=== PATIENT | female | born 1935 | race Caucasian/White ===

== ENCOUNTER 2016-08-13 10:54 | Emergency (ER) | payer MEDICARE ==
[~2016-08-13] VITALS: Ht 162.6 cm; Wt 68.0 kg
[~2016-08-13 10:54] MED LIST: ACET160L29 PO; ACET325T49 PO; ASP325TEC PO; ASP81TEC PO; ASPI-586 PO; ASPI-875 PO; ASPI-983 PO; ASPI-999 PO; ATOR20TA66 PO; ATOR40TA70 PO; ATOR80TA76 PO; BACL10TA PO; CARV3.122 PO; CLON0.1T PO; CLOP75TA PO; DOCU100C37 PO; DPAS20025 PO; GABA-488 PO; GABA300S2 PO; GLIM4TAB PO; GLMP4T PO; HEPARIN 5000 UNIT SQ; HYDR-3812 PO; INSU100I14 SQ; INSU100I29 SQ; INSU100V16 SC; INSU100V5 SQ; IRON150C3 PO; LEVE500T6 PO; LIRA0.6P SQ; LIRA0.6P3 SQ; LISI-552 PO; LISI1TAB6 PO; LISI40TA PO; LORA0.5T PO; LORA0.5T34 PO; MAGN400O7 PO; METF-380 PO; METF-478 PO; METF500T4 PO; METF500T8 PO; METO-270 PO; METO-272 PO; METO-274 PO; METOPROLOL TARTRATE PEG; MIRT15TA3 PO; MIRT15TA6 PO; MODA100T40 PO; MTF500T PO; MTP25TSR PO; Multivitamins/Minerals Therap PO; NYST1000 PO; OXYC-471 PO; Rocephin IV; SENN-20 PO; SERT100T8 PO; SERT50TA9 PO; SIMV40TA2 PO; SITA100T PO; TRAM50TA2 PO; [UNRECOGNIZED DRUG - OTHER] PEG
--- OUTSIDE RECORDS SUMMARY | 2016-08-13 11:02 | XMS REPORT | Continuity of Care Document ---
Author Author [facility] Organization [facility] Address Unknown Phone Unavailable Care Team Providers Care Consulting Sales Manager Name Role Phone Dp, [facility] PCP [phone] Source Comments Some departments are not documenting in the electronic medical record. If you do not see the information that you expected, contact Release of Information in the Health Information Management department at [phone] for further assistance in locating additional records.[facility] Active Allergies and Adverse Reactions No Known Allergies Current Medications Prescription Sig. Disp. Refills Start End Date Status Date aspirin EC 81 mg tablet Take 1 Tab by mouth 90 Tab 3 10/18/19 Active daily. 16 levETIRAcetam (KEPPRA) Take 1 Tab by mouth twice 60 Tab 7 10/18/19 Active 500 mg tablet daily. 16 atorvastatin (LIPITOR) 40 Take 1 Tab by mouth 90 Tab 3 10/18/19 Active mg tablet daily. 16 metoprolol XL (TOPROL XL) Take 1 Tab by mouth 90 Tab 3 10/18/19 Active 50 mg tablet daily. 16 dipyridamole/aspirin Take 1 Cap by mouth twice 180 Cap 3 10/18/19 Active (AGGRENOX) 200/25 mg daily. 16 capsule trimethoprim/sulfamethoxa Take 1 Tab by mouth twice 10 Tab 0 10/18/19 Active zole (BACTRIM DS) 160/800 daily. 16 mg tablet insulin glargine (LANTUS Inject 15 Units into 10/18/19 Active SOLOSTAR) 100 unit/mL (3 area(s) as directed at 16 mL) injection PEN bedtime daily. insulin aspart (NOVOLOG) Inject 0-14 Units into 10/18/19 Active 100 unit/mL flexPEN area(s) as directed 16 before meals and at bedtime. Glucose 140-180mg/dL: administer 2 units insulin Glucose 181-220: 4 unitsGlucose 221-260: 6 units Glucose 261-300: 8 units Glucose 301-350: 10 unitsGlucose 351-400: 12 unitsGlucose >400m units Active Problems Problem Noted Date Seizure ([facility]) 10/18/2015 Right sided weakness 10/16/2015 Type 2 diabetes mellitus ([facility]) 10/16/2015 Essential hypertension 10/16/2015 Hyperlipidemia 10/16/2015 Depression 10/16/2015 Altered mental status, unspecified 10/16/2015 Stroke ([facility]) 10/15/2015 Social History Tobacco Use Types Packs/Day Years Used Date Never Smoker Smokeless Tobacco: Never Used Alcohol Use Drinks/Week oz/Week Comments No 0 Standard 0.0 drinks or equivalent Last Filed Vital Signs Vital Sign Reading Time Taken Blood Pressure 134/68 10/18/2015 8:00 AM CDT Pulse 49 10/18/2015 10:00 AM CDT Temperature 36.6 C (97.8 F) 10/18/2015 8:00 AM CDT Respiratory Rate - - Height 1.626 m (5' 4") 10/16/2015 9:27 AM CDT Weight 68.493 kg (151 lb) 10/16/2015 9:27 AM CDT Body Mass Index 25.91 10/16/2015 9:27 AM CDT Oxygen Saturation 93% 10/18/2015 8:00 AM CDT Plan of Care Health Maintenance Due Date Last Done Comments Physical (Comprehensive) 1944 Exam Pertussis Vaccine 1948 Tetanus Vaccine 1954 Shingles Vaccine 1997 Osteoporosis Screening 2002 Prevnar/Pneumovax (#1) 2002 Influenza Vaccine 03/13/2016 Results from Last 3 Months Not on file
--- NOTE | 2016-08-13 12:01 | ED Integumentary General ---
General Chief Complaint: Skin/Wound Problems Stated Complaint: ABSCESS/INFECTION ON BOTTOM Nursing Triage Note: PT C/O RED RASH TO BOTTOM. Source: patient, family Exam Limitations: no limitations History of Present Illness Time seen by provider: 11:30 Initial Comments 80-year-old female patient presents to the emergency department complains of a rash of the groin and perineum. Reports itching and burning. Timing/Duration: getting worse, other (several week history) Location: genitalia Possible Cause: no cause identified Modifying Factors: worse with scratching Allergies and Home Medications Allergies Coded Allergies: No Known Drug Allergies (Unverified , 04/08/10) Home Medications Atorvastatin Calcium 40 Mg Tablet 40 MG PO HS (Reported) LAST FILLED 11/16/15 #30 Carvedilol 3.125 Mg Tablet #60 3.125 MG PO BID Prescribed by: CY WELCH on 01/17/16 1026 Clonidine HCl 0.1 Mg Tablet 0.1 MG PO BID (Reported) Clotrimazole 45 Gm Cr #1 45 GM VG UD apply to the affected area BID Prescribed by: KISHAN SALDANA on 08/13/16 1207 Clotrimazole/Betamethasone Dip 15 Gm Cream..g. #1 15 GM TP UD apply to the groin BID for rash Prescribed by: KISHAN SALDANA on 08/13/16 1207 Dipyridamole/Aspirin 1 Ea Cap 1 CAP PO BID (Reported) Docusate Sodium 100 Mg Capsule 200 MG PO DAILY (Reported) Fluconazole 100 Mg Tablet #9 100 MG PO UD 2 po day 1, then 1 po daily Prescribed by: KISHAN SALDANA on 08/13/16 1207 Gabapentin 300 Mg Capsule 300 MG PO DAILY (Reported) 300 MG BID X 5 DAYS, THEN INCREASE 300 MG TID Gabapentin 300 Mg/6 Ml Solution 300 MG PO HS (Reported) Insulin Aspart 300 Units/3 Ml Solution 5 UNITS SQ AC (Reported) AND PER SLIDING SCALE Insulin Detemir 100 Unit/1 Ml Insuln.pen 25 UNITS SQ HS (Reported) Levetiracetam 500 Mg Tablet 500 MG PO BID (Reported) Lorazepam 0.5 Mg Tablet 0.5 MG PO Q6H PRN PRN ANXIETY (Reported) Magnesium Hydroxide 400 Mg/5 Ml Oral.susp 30 ML PO DAILY PRN PRN CONSTIPATION ( Reported) Metformin HCl 500 Mg Tab.er.24h 1,000 MG PO BID (Reported) Mirtazapine 15 Mg Tablet 7.5 MG PO HS (Reported) TAKES 1/2 OF A (15 MG) TABLET Sertraline HCl 100 Mg Tablet 100 MG PO DAILY (Reported) Tramadol HCl 50 Mg Tablet 50-100 MG PO BID (Reported) Constitutional: No chills, No fever, No malaise Respiratory: no symptoms reported Cardiovascular: no symptoms reported Gastrointestinal: no symptoms reported Genitourinary: see HPI Musculoskeletal: no symptoms reported Skin: see HPI Psychiatric/Neurological: No Symptoms Reported All Other Systems Reviewed Negative Unless Noted: Yes (Negative excepted noted.) Past Jkvbkin-Sjovja-Gzzufb Hx Patient Social History Recent Foreign Travel: No Contact w/Someone Who Travel: No Recent Infectious Disease Expo: No Recent Hopitalizations: No Immunizations Up To Date Tetanus Booster (TDap): Unknown PED Vaccines UTD: Yes Date of Pneumonia Vaccine: Apr 12, 2015 Date of Influenza Vaccine: Apr 12, 2015 Seasonal Allergies Seasonal Allergies: No Surgeries HX Surgeries: Yes (MELONAMA FROM LEG; CATARACTS REMOVED) Surgeries: Cardiac, Coronary Stent, Eye Surgery, 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 Respiratory Hx Respiratory Disorders: No Cardiovascular Hx Cardiac Disorders: Yes (STENT X1) Cardiac Disorders: Coronary Artery Disease, Hypertension Neurological Hx Neurological Disorders: No Neurological Disorders: Stroke 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 System Sexually Transmitted Disease: No HIV/AIDS: No Female 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 Disorders: Denies 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 Genitourinary Hx Genitourinary Disorders: No Gastrointestinal Hx Gastrointestinal Disorders: No Musculoskeletal Hx Musculoskeletal Disorders: Yes Musculoskeletal Disorders: Arthritis Endocrine Hx Endocrine Disorders: Yes Endocrine Disorders: Diabetes, Insulin dep HEENT HX ENT Disorders: Yes (CATARACTS REMOVED) HEENT Disorders: Cataract Loss of Vision: Denies Hearing Impairment: Denies Cancer Hx Cancer: Yes (20 YEARS AGO) Cancer: Cervical Psychosocial Hx Psychiatric Problems: No Behavioral Health Disorders: Depression Integumentary HX Skin/Integumentary Disorder: Yes Skin/Integumentary Disorders: Pruritis Blood Transfusions Hx Blood Disorders: No Adverse Reaction to a Blood Tr: No Reviewed Nursing Assessment Reviewed/Agree w Nursing PMH: Yes Family Medical History Significant Family History: Heart Disease, Hypertension Family Medial History: Family history: Alzheimer's disease 03 MOTHER Family history: Hypertension 03 FATHER 03 MOTHER Myocardial infarction 03 FATHER Physical Exam Vital Signs Vital Sign - Last 12Hours 08/13/16 11:09 Temp 97.8 Pulse 57 Resp 16 B/P 166/138 Pulse Ox 95 O2 Delivery Room Air Capillary Refill : Less Than 3 Seconds General Appearance: WD/WN no apparent distress Cardiovascular: regular rate, rhythm no murmur Respiratory: lungs clear normal breath sounds no respiratory distress Neurologic/Psychiatric: alert normal mood/affect oriented x 3 Skin: normal color warm/dry rash (scaly erythematous rash of the bilateral groin, pubis, and external genitalia) Skin Problem Location: other (genitalia/groin/pubis) Skin Problem Character: rash (scaly erythematous rash of the bilateral groin, pubis, and external genitalia) Progress/Results/Core Measures Results/Orders Vital Signs/I&O Vital Sign - Last 12Hours 08/13/16 08/13/16 11:09 12:20 Temp 97.8 97.8 Pulse 57 57 Resp 16 16 B/P 166/138 Pulse Ox 95 95 O2 Delivery Room Air Blood Pressure Mean: 147 Departure Communication Progress Notes Patient seen and evaluated. Plan for discharge to home. Impression Impression: Primary Impression: Candidiasis of female genitalia Disposition: HOME, SELF-CARE Condition: Improved Departure-Patient Inst. Decision time for Depature: 11:58 Referrals: [facility] (PCP/Family) Primary Care Physician Patient Instructions: Vaginal Yeast Infection (DC) Add. Discharge Instructions: All discharge instructions reviewed with patient and/or family. Voiced understanding. Medications as directed. Continue usual home medications. Shower with a mild soap and warm water. Change underwear/briefs frequently. Follow-up with your family doctor if needed. Return to the emergency department for worsened symptoms or any other concerns. Scripts Clotrimazole 45 Gm Cr45 Gm VG UD #1 TUBE Ref 0 apply to the affected area BID Prov:KISHAN SALDANA 08/13/16 Clotrimazole/Betamethasone Dip (Lotrisone Cream)15 Gm Cream..g.15 Gm TP UD #1 TUBE Ref 1 apply to the groin BID for rash Prov:KISHAN SALDANA 08/13/16 Fluconazole (Diflucan)100 Mg [id number] Mg PO UD #9 TAB Ref 0 2 po day 1, then 1 po daily Prov:KISHAN SALDANA 08/13/16 KISHAN SALDANA Aug 13, 2016 12:01
[2016-08-13] MEDS ORDERED: CLOT15CR4 TP (12:07)
[2016-08-13] MEDS ORDERED: FLUC100T PO (12:07)
[2016-08-13] MEDS ORDERED: CLTR1PV45 VG (12:07)
[2016-08-13 12:20] VITALS: BP 166/138
== END 2016-08-13 12:20 | disposition home or self-care (01) ==
LOC: EDUNIT# 10:54 → ER 10:57
DX: B37.49 Other urogenital candidiasis (principal); I10 Essential (primary) hypertension; I25.10 Atherosclerotic heart disease of native coronary artery without angina pectoris; E11.9 Type 2 diabetes mellitus without complications; Z79.4 Long term (current) use of insulin; Z79.84 Long term (current) use of oral hypoglycemic drugs; Z79.899 Other long term (current) drug therapy; Z95.5 Presence of coronary angioplasty implant and graft
CPT/HCPCS: 99285

== ENCOUNTER 2016-09-10 14:29 | Emergency (ER) | payer MEDICARE ==
[~2016-09-10] VITALS: Ht 162.6 cm; Wt 63.8 kg
[~2016-09-10 14:29] MED LIST changes: +CLOT15CR4 TP; +CLTR1PV45 VG; +FLUC100T PO
--- OUTSIDE RECORDS SUMMARY | 2016-09-10 14:37 | XMS REPORT | Continuity of Care Document ---
Author Author [facility] Organization [facility] Address Unknown Phone Unavailable Care Team Providers Care Car Carder Name Role Phone Dp, [facility] PCP [phone] Source Comments Some departments are not documenting in the electronic medical record. If you do not see the information that you expected, contact Release of Information in the Health Information Management department at [phone] for further assistance in locating additional records.[facility] Active Allergies and Adverse Reactions No Known [...] units Active Problems Problem Noted Date Seizure ([facility]) 10/18/2015 Right sided weakness 10/16/2015 Type 2 diabetes mellitus ([facility]) 10/16/2015 Essential hypertension 10/16/2015 Hyperlipidemia 10/16/2015 Depression 10/16/2015 Altered mental status, unspecified 10/16/2015 Stroke ([facility]) 10/15/2015 Social History Tobacco Use Types Packs/Day [...]
[2016-09-10 15:27] LABS: BILIRUBIN,URINE NEGATIVE (NEGATIVE); KETONES,URINE NEGATIVE (NEGATIVE); LEUKOCYTE ESTERASE ,URINE 1+ (NEGATIVE); NITRITE,URINE NEGATIVE (NEGATIVE); PH,URINE 5 (5-9); PROTEIN,URINE 1+ (NEGATIVE); UROBILINOGEN,URINE NORMAL (NORMAL)
[2016-09-10 15:32] LABS: BASOPHILS % (AUTO) 0 % (0-10); EOSINOPHILS # (AUTO) 0.1 10^3/uL (0.0-0.3); EOSINOPHILS % (AUTO) 1 % (0-10); LYMPHOCYTES # (AUTO) 1.4 X 10^3 (1.0-4.0); LYMPHOCYTES % (AUTO) 18 % (12-44); MEAN CORPUSCULAR HEMOGLOBIN 28 PG (25-34); MEAN CORPUSCULAR HGB CONC 33 G/DL (32-36); MEAN CORPUSCULAR VOLUME 86 FL (80-99); MEAN PLATELET VOLUME 9.6 FL (7.4-10.4); MONOCYTES # (AUTO) 0.5 X 10^3 (0.0-1.0); MONOCYTES % (AUTO) 6 % (0-12); NEUTROPHILS # (AUTO) 5.9 X 10^3 (1.8-7.8); NEUTROPHILS % (AUTO) 75 % (42-75); PLATELET COUNT 216 10^3/uL (130-400); RED BLOOD COUNT 4.84 10^6/uL (4.35-5.85); RED CELL DISTRIBUTION WIDTH 14.4 % (10.0-14.5); WHITE BLOOD COUNT 7.9 10^3/uL (4.3-11.0)
[2016-09-10 15:43] LABS: SQUAMOUS EPITHELIAL CELL,UR 0-2 /HPF
[2016-09-10] MEDS ORDERED: ACYCLOVIR 400 MG TABLET (ZOVIRAX) PO ONE (15:45)
[2016-09-10 15:47] LABS: INR 0.9 (0.8-1.4); PROTHROMBIN TIME PATIENT 11.8 SEC (12.2-14.7)
[2016-09-10 15:55] LABS: ALANINE AMINOTRANSFERASE 16 U/L (0-55); ALBUMIN 3.8 G/DL (3.2-4.5); ANION GAP 12 MMOL/L (5-14); ASPARTATE AMINO TRANSFERASE 14 U/L (5-34); BILIRUBIN,TOTAL 0.4 MG/DL (0.1-1.0); BLOOD UREA NITROGEN 13 MG/DL (7-18); BUN/CREATININE RATIO 15; CALCIUM 9.3 MG/DL (8.5-10.1); CARBON DIOXIDE 23 MMOL/L (21-32); CHLORIDE 106 MMOL/L (98-107); CREATININE SERUM 0.86 MG/DL (0.60-1.30); GFR ESTIMATED > 60; POTASSIUM 4.8 MMOL/L (3.6-5.0); SODIUM 141 MMOL/L (135-145); TOTAL PROTEIN 6.7 G/DL (6.4-8.2)
[2016-09-10 16:01] LABS: GLUCOSE 406 MG/DL (70-105)
[2016-09-10] MEDS ORDERED: NS IV 1000 ML 1,000 ML IV ONE (16:01)
--- NOTE | 2016-09-10 16:14 | Diagnostic Imaging Report ---
PROCEDURE: CT head and CT cervical spine without contrast. TECHNIQUE: Multiple contiguous axial images were obtained through the brain and cervical spine without the use of intravenous contrast. Sagittal and coronal reformations through the cervical spine were then performed. INDICATION: Fall. Blurred vision. FINDINGS: CT head: There is no intracranial hemorrhage. There is prominent periventricular and deep white matter hypodensities compatible with chronic microvascular ischemic changes. When compared to 01/15/2016, there is slight increase in the white matter hypodensities in the right frontal region and the left occipital area which could also be on the basis of chronic ischemia given the lack of significant mass effect. If there are new neurologic symptoms, then better evaluation with MRI would be suggested. No hydrocephalus. No extra-axial fluid collection seen. The calvarium and the visualized portions of the paranasal sinuses appear grossly unremarkable. CT cervical spine: There is slight posterior translation of C5 over C6. The vertebral body heights are preserved. There is moderate disc height loss at C5/C6 level. There are posterior osteophytes at C4-C5 and C5-C6. Facet joint arthropathy is seen at multiple levels generally worse in the mid to lower cervical spine on the left side. There is no widening of the predental space. No subluxation or dislocation at the lateral masses of C1 and C2 or atlantooccipital joints. No fracture is seen. There is prominent foraminal stenosis on the left side at the C4/C5 and C5/C6 seen. IMPRESSION: 1. CT head: No intracranial hemorrhage. Suggestion of increased hypodensity in the left occipital and right frontal region compared to 01/15/2016 exam may relate to increased chronic microvascular ischemic changes. If there is a clinical suspicion of a new neurologic event, then further evaluation with MRI would be suggested. 2. CT cervical spine: Advanced degenerative changes. No fracture seen. Dictated by: Dictated on workstation # [id number]
[2016-09-10] MEDS ORDERED: cefTRIAXone INJECTION 1,000 MG in NS (IVPB) 50 ML IV ONE (16:15)
[2016-09-10] MEDS ORDERED: inSUlin (REGULAR) HUMAN 1 UNIT/0.01 ML (CHARGE PER UNIT) IV ONE (16:15)
--- NOTE | 2016-09-10 16:22 | ED Fall/Injury ---
General Chief Complaint: Trauma-Non Activation Stated Complaint: FALL, BLURRED VISION, LETHARGIC Nursing Triage Note: PT FELL BACKWARDS IN W/C HIT BACK OF HEAD, IOANA LOC, DENIES NECK PAIN STATE DID HAVE VISUAL CHANGES AND SOME NAUSE Source: patient, family Exam Limitations: no limitations History of Present Illness Time seen by provider: 14:35 Initial Comments This 81-year-old woman presents to the emergency room after tipping over backwards in her wheelchair while trimming her dog. She struck her head on the concrete. She reports brief change in vision and nausea. These symptoms have now improved. Patient was also noticed to be rather hypertensive on initial assessment. Location Injury Occurred: HOME Occurred: just prior to arrival Injuries/Pain Location: head Allergies and Home Medications Allergies Coded Allergies: No Known Drug Allergies (Unverified , 04/08/10) Home Medications Acyclovir 800 Mg Tablet #35 800 MG PO 5XD Prescribed by: DESTIN CHATMAN on 09/10/16 1658 Atorvastatin Calcium 40 Mg Tablet 40 MG PO HS (Reported) LAST FILLED 11/16/15 #30 Carvedilol 3.125 Mg Tablet #60 3.125 MG PO BID Prescribed by: CY WELCH on 01/17/16 1026 Cephalexin 500 Mg Capsule #28 500 MG PO QID Prescribed by: DESTIN CHATMAN on 09/10/16 1658 Clonidine HCl 0.1 Mg Tablet 0.1 MG PO BID (Reported) Clotrimazole 45 Gm Cr #1 45 GM VG UD apply to the affected area BID Prescribed by: KISHAN SALDANA on 08/13/16 1207 Clotrimazole/Betamethasone Dip 15 Gm Cream..g. #1 15 GM TP UD apply to the groin BID for rash Prescribed by: KISHAN SLADANA on 08/13/16 1207 Dipyridamole/Aspirin 1 Ea Cap 1 CAP PO BID (Reported) Docusate Sodium 100 Mg Capsule 200 MG PO DAILY (Reported) Fluconazole 100 Mg Tablet #9 100 MG PO UD 2 po day 1, then 1 po daily Prescribed by: KISHAN SALDANA on 08/13/16 1207 Gabapentin 300 Mg Capsule 300 MG PO DAILY (Reported) 300 MG BID X 5 DAYS, THEN INCREASE 300 MG TID Gabapentin 300 Mg/6 Ml Solution 300 MG PO HS (Reported) Hydrocodone/Acetaminophen 1 Each Tablet #14 1 EACH PO Q6H PRN PRN PAIN Prescribed by: DESTIN CHATMAN on 09/10/16 1703 Insulin Aspart 300 Units/3 Ml Solution 5 UNITS SQ AC (Reported) AND PER SLIDING SCALE Insulin Detemir 100 Unit/1 Ml Insuln.pen 25 UNITS SQ HS (Reported) Levetiracetam 500 Mg Tablet 500 MG PO BID (Reported) Lorazepam 0.5 Mg Tablet 0.5 MG PO Q6H PRN PRN ANXIETY (Reported) Magnesium Hydroxide 400 Mg/5 Ml Oral.susp 30 ML PO DAILY PRN PRN CONSTIPATION ( Reported) Metformin HCl 500 Mg Tab.er.24h 1,000 MG PO BID (Reported) Mirtazapine 15 Mg Tablet 7.5 MG PO HS (Reported) TAKES 1/2 OF A (15 MG) TABLET Sertraline HCl 100 Mg Tablet 100 MG PO DAILY (Reported) Tramadol HCl 50 Mg Tablet 50-100 MG PO BID (Reported) Constitutional: no symptoms reported Eyes: See HPI Ears, Nose, Mouth, Throat: no symptoms reported Respiratory: no symptoms reported Cardiovascular: no symptoms reported Gastrointestinal: see HPI Genitourinary: no symptoms reported Musculoskeletal: no symptoms reported Skin: no symptoms reported Psychiatric/Neurological: See HPI Past Eyefrex-Phyeem-Lizsow Hx Patient Social History Alcohol Use: Denies Use Recreational Drug Use: No Smoking Status: Never a Smoker Recent Foreign Travel: No Contact w/Someone Who Travel: No Recent Infectious Disease Expo: No Recent Hopitalizations: No Immunizations Up To Date Tetanus Booster (TDap): Unknown PED Vaccines UTD: Yes Date of Pneumonia Vaccine: Apr 12, 2015 Date of Influenza Vaccine: Apr 12, 2015 Seasonal Allergies Seasonal Allergies: No Surgeries HX Surgeries: Yes (MELONAMA FROM LEG; CATARACTS REMOVED) Surgeries: Cardiac, Coronary Stent, Eye Surgery, 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 Respiratory Hx Respiratory Disorders: No Cardiovascular Hx Cardiac Disorders: Yes (STENT X1) Cardiac Disorders: Coronary Artery Disease, Hypertension Neurological Hx Neurological Disorders: No Neurological Disorders: Stroke 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 System Sexually Transmitted Disease: No HIV/AIDS: No Female 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 Disorders: Denies 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 Genitourinary Hx Genitourinary Disorders: No Gastrointestinal Hx Gastrointestinal Disorders: No Musculoskeletal Hx Musculoskeletal Disorders: Yes Musculoskeletal Disorders: Arthritis Endocrine Hx Endocrine Disorders: Yes Endocrine Disorders: Diabetes, Insulin dep HEENT HX ENT Disorders: Yes (CATARACTS REMOVED) HEENT Disorders: Cataract Loss of Vision: Denies Hearing Impairment: Denies Cancer Hx Cancer: Yes (20 YEARS AGO) Cancer: Cervical Psychosocial Hx Psychiatric Problems: No Behavioral Health Disorders: Depression Integumentary HX Skin/Integumentary Disorder: Yes Skin/Integumentary Disorders: Pruritis Blood Transfusions Hx Blood Disorders: No Adverse Reaction to a Blood Tr: No Family Medical History Significant Family History: Heart Disease, Hypertension Family Medial History: Family history: Alzheimer's disease 03 MOTHER Family history: Hypertension 03 FATHER 03 MOTHER Myocardial infarction 03 FATHER Physical Exam Vital Signs Vital Sign - Last 12Hours 09/10/16 14:35 Temp 98.1 Pulse 91 Resp 18 B/P 190/77 Pulse Ox 94 Capillary Refill : Less Than 3 Seconds General Appearance: WD/WN no apparent distress HEENT: PERRL/EOMI normal ENT inspection other (oropharynx somewhat dry) Neck: non-tender full range of motion supple normal inspection Cardiovascular: regular rate, rhythm no edema no murmur Respiratory: lungs clear normal breath sounds no respiratory distress no accessory muscle use Gastrointestinal: normal bowel sounds non tender soft Extremities: normal inspection no pedal edema 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 no motor/sensory deficits alert normal mood/affect oriented x 3 Skin: normal color warm/dry rash (rash on the right side of the gluteal cleft diagnostic of herpes zoster) Robert Coma Score Best Eye Response: (4) Open Spontaneously Best Verbal Response: (5) Oriented Best Motor Response: (6) Obeys Commands Progress/Results/Core Measures Results/Orders Lab Results Laboratory Tests Test 09/10/16 15:14 09/10/16 15:25 09/10/16 17:27 Range/Units Urine Amorphous Sediment FEW XIOMARA URATES H /LPF Urine Bacteria FEW H /HPF Urine Bilirubin NEGATIVE NEGATIVE Urine Casts NONE /LPF Urine Clarity SLIGHTLY CLOUDY Urine Color YELLOW Urine Crystals NONE /LPF Urine Culture Indicated YES Urine Glucose (UA) 4+ H NEGATIVE Urine Ketones NEGATIVE NEGATIVE Urine Leukocyte Esterase 1+ H NEGATIVE Urine Mucus NEGATIVE /LPF Urine Nitrite NEGATIVE NEGATIVE Urine Protein 1+ H NEGATIVE Urine RBC NONE /HPF Urine RBC (Auto) NEGATIVE NEGATIVE Urine Specific [place] 1.010 L 1.016-1.022 Urine Squamous Epithelial Cells 0-2 /HPF Urine Urobilinogen NORMAL NORMAL MG/DL Urine WBC 10-25 H /HPF Urine pH 5 5-9 Activated Partial Thromboplast Time 26 24-35 SEC Alanine Aminotransferase (ALT/SGPT) 16 0-55 U/L Albumin 3.8 3.2-4.5 G/DL Alkaline Phosphatase 76 40-136 U/L Anion Gap 12 5-14 MMOL/L Aspartate Amino Transf (AST/SGOT) 14 5-34 U/L BUN/Creatinine Ratio 15 Basophils # (Auto) 0.0 0.0-0.1 10^3/uL Basophils (%) (Auto) 0 0-10 % Blood Urea Nitrogen 13 7-18 MG/DL Calcium Level 9.3 8.5-10.1 MG/DL Carbon Dioxide Level 23 21-32 MMOL/L Chloride Level 106 98-107 MMOL/L Creatinine 0.86 0.60-1.30 MG/DL Eosinophils # (Auto) 0.1 0.0-0.3 10^3/uL Eosinophils (%) (Auto) 1 0-10 % Estimat Glomerular Filtration Rate > 60 Glucose Level 406 *H 70-105 MG/DL Hematocrit 42 35-52 % Hemoglobin 13.7 11.5-16.0 G/DL INR Comment 0.9 0.8-1.4 Lymphocytes # (Auto) 1.4 1.0-4.0 X 10^3 Lymphocytes (%) (Auto) 18 12-44 % Mean Corpuscular Hemoglobin 28 25-34 PG Mean Corpuscular Hemoglobin Concent 33 32-36 G/DL Mean Corpuscular Volume 86 80-99 FL Mean Platelet Volume 9.6 7.4-10.4 FL Monocytes # (Auto) 0.5 0.0-1.0 X 10^3 Monocytes (%) (Auto) 6 0-12 % Neutrophils # (Auto) 5.9 1.8-7.8 X 10^3 Neutrophils (%) (Auto) 75 42-75 % Platelet Count 216 130-400 10^3/uL Potassium Level 4.8 3.6-5.0 MMOL/L Prothrombin Time 11.8 L 12.2-14.7 SEC Red Blood Count 4.84 4.35-5.85 10^6/uL Red Cell Distribution Width 14.4 10.0-14.5 % Sodium Level 141 135-145 MMOL/L TSH [place] Testing 2.29 0.35-4.94 UIU/ML Total Bilirubin 0.4 0.1-1.0 MG/DL Total Protein 6.7 6.4-8.2 G/DL White Blood Count 7.9 4.3-11.0 10^3/uL Glucometer 177 H 70-110 MG/DL Micro Results Microbiology 09/10/16 Urine Culture - Preliminary, Resulted Gram Positive Cocci Strep Agalactiae Group B Probable Coag Negative Staph My Orders Orders-DESTIN MENG MD Cbc With Automated Diff (09/10/16 14:40) Comprehensive Metabolic Panel (09/10/16 14:40) Protime With Inr (09/10/16 14:40) Partial Thromboplastin Time (09/10/16 14:40) Thyroid Analyzer (09/10/16 14:40) Ua Culture If Indicated (09/10/16 14:40) Saline Lock/Iv-Start (09/10/16 14:40) Monitor-Rhythm Ecg Trace Only (09/10/16 14:40) Ct Head/Cervical Spine Wo (09/10/16 ) Acyclovir Capsule/Tablet (Zovirax Caps (09/10/16 15:45) Urine Culture (09/10/16 15:14) Ns Iv 1000 Ml (Sodium Chloride 0.9%) (09/10/16 16:01) Insulin (Regular) Human (Humulin R (Per (09/10/16 16:15) Ceftriaxone Injection (Rocephin Injectio (09/10/16 16:15) Accucheck Stat ONCE (09/10/16 16:23) Medications Given in ED Vital Signs/I&O Vital Sign - Last 12Hours 09/10/16 09/10/16 14:35 17:30 Temp 98.1 98.1 Pulse 91 65 Resp 18 18 B/P 190/77 Pulse Ox 94 97 Blood Pressure Mean: 114 Progress Note #1: Time: 16:[address] head was negative for acute injury. Acyclovir was given for the shingles. Urine demonstrated urinary tract infection. A gram of Rocephin is being administered. A liter of normal saline along with 5 units of insulin is being administered for treatment of hyperglycemia. Progress Note #2: Progress Note Blood sugar was 177 prior to dismissal. Blood pressure improved prior to dismissal. Diagnostic Imaging Diagonstic Imaging: CT Plain Films/CT/US/NM/MRI: c-spine, head Comments CT head and C-spine viewed by me and report reviewed. See report below: NAME: [facility] REC#: [id number] PT STATUS: REG ER : 1935 PHYSICIAN: DESTIN MENG MD ADMIT DATE: 09/10/16/ER Draft Date of Exam:09/10/16 CT HEAD/CERVICAL SPINE WO PROCEDURE: CT head and CT cervical spine without contrast. TECHNIQUE: Multiple contiguous axial images were obtained through the brain and cervical spine without the use of intravenous contrast. Sagittal and coronal reformations through the cervical spine were then performed. INDICATION: Fall. Blurred vision. FINDINGS: CT head: There is no intracranial hemorrhage. There is prominent periventricular and deep white matter hypodensities compatible with chronic microvascular ischemic changes. When compared to 01/15/2016, there is slight increase in the white matter hypodensities in the right frontal region and the left occipital area which could also be on the basis of chronic ischemia given the lack of significant mass effect. If there are new neurologic symptoms, then better evaluation with MRI would be suggested. No hydrocephalus. No extra-axial fluid collection seen. The calvarium and the visualized portions of the paranasal sinuses appear grossly unremarkable. CT cervical spine: There is slight posterior translation of C5 over C6. The vertebral body heights are preserved. There is moderate disc height loss at C5/C6 level. There are posterior osteophytes at C4-C5 and C5-C6. Facet joint arthropathy is seen at multiple levels generally worse in the mid to lower cervical spine on the left side. There is no widening of the predental space. No subluxation or dislocation at the lateral masses of C1 and C2 or atlantooccipital joints. No fracture is seen. There is prominent foraminal stenosis on the left side at the C4/C5 and C5/C6 seen. IMPRESSION: 1. CT head: No intracranial hemorrhage. Suggestion of increased hypodensity in the left occipital and right frontal region compared to 01/15/2016 exam may relate to increased chronic microvascular ischemic changes. If there is a clinical suspicion of a new neurologic event, then further evaluation with MRI would be suggested. 2. CT cervical spine: Advanced degenerative changes. No fracture seen. Dictated on workstation # [id number] Dict: 09/10/16 1546 Trans: 09/10/16 1613 KB [id number] Interpreted by: ANA HA MD Departure Impression Impression: Primary Impression: Fall from wheelchair Qualified Code: W05.0XXA - Fall from non-moving wheelchair, initial encounter Additional Impressions: Urinary tract infection Qualified Code: N39.0 - Urinary tract infection, site not specified Hyperglycemia Herpes zoster Qualified Code: B02.9 - Zoster without complications Disposition: HOME, SELF-CARE Condition: Improved Departure-Patient Inst. Decision time for Depature: 16:46 Referrals: [facility] (PCP/Family) Primary Care Physician Patient Instructions: Shingles, Urinary Tract Infections in Adults Add. Discharge Instructions: Drink plenty of water. Complete your antibiotics as prescribed. Use hydrocodone as prescribed for pain. Return to care if symptoms worsen. Contact your primary care provider soon as possible regarding resuming insulin or other treatment for diabetes. Eat a low sugar, low carbohydrate diet. All discharge instructions reviewed with patient and/or family. Voiced understanding. Scripts Hydrocodone/Acetaminophen (Hydrocodon -Acetaminophen 5-325)1 Each Tablet1 Each PO Q6H PRN PAIN #14 TAB Prov:DESTIN MENG MD 09/10/16 Cephalexin (Keflex)500 Mg [id number] Mg PO QID #28 CAP Prov:DESTIN MENG MD 09/10/16 Acyclovir 800 Mg [id number] Mg PO 5XD #35 TAB Prov:DESTIN MENG MD 09/10/16 Copy Copies To 1: BONILLA KIM JOSHUA T MD Sep 10, 2016 16:22 DESTIN MENG MD Sep 10, 2016 16:22 DESTIN MENG MD Sep 10, 2016 16:22
[2016-09-10] MEDS ORDERED: CEPH-507 PO (16:58)
[2016-09-10] MEDS ORDERED: ACYC800T PO (16:58)
[2016-09-10] MEDS ORDERED: HYDR-3812 PO (17:03)
[2016-09-10 17:30] VITALS: BP 148/67
== END 2016-09-10 17:30 | disposition home or self-care (01) ==
LOC: EDUNIT# 14:29 → ER 14:31
DX: S09.90XA Unspecified injury of head, initial encounter (principal); N39.0 Urinary tract infection, site not specified; E11.65 Type 2 diabetes mellitus with hyperglycemia; B02.9 Zoster without complications; I10 Essential (primary) hypertension; I25.10 Atherosclerotic heart disease of native coronary artery without angina pectoris; M47.812 Spondylosis without myelopathy or radiculopathy, cervical region; Z79.4 Long term (current) use of insulin; Z79.84 Long term (current) use of oral hypoglycemic drugs; Z79.899 Other long term (current) drug therapy; Z95.5 Presence of coronary angioplasty implant and graft; W05.0XXA Fall from non-moving wheelchair, initial encounter; Y92.009 Unspecified place in unspecified non-institutional (private) residence as the place of occurrence of the external cause; Y99.8 Other external cause status
CPT/HCPCS: 36415; 70450; 72125; 80053; 81000; 82962; 84443; 85025; 85610; 85730; 87088; 93041; 96361; 96365; 96375

== ENCOUNTER 2016-12-30 19:56 | Emergency (ER) | payer MEDICARE ==
[~2016-12-30] VITALS: Ht 162.6 cm; Wt 63.8 kg
[~2016-12-30 19:56] MED LIST changes: +ACYC800T PO; +CEPH-507 PO
[2016-12-30] MEDS ORDERED: DONE5TAB30 (20:09)
[2016-12-30] MEDS ORDERED: LEVO50TA6 (20:09)
[2016-12-30] MEDS ORDERED: CANA100T (20:09)
--- NOTE | 2016-12-30 20:28 | ED Upper Extremity ---
General Chief Complaint: Upper Extremity Stated Complaint: LT HAND/ARM PAIN/POSSIBLE BITE Nursing Triage Note: LEFT 5TH FINGER PAIN, OPEN AREA TO LEFT 5TH LATERAL FINGER WITH PAIN RADIATING UP LEFT ARM X2 WEEKS. REPORTS POSSIBLE INSECT BITE Nursing Sepsis Screen: No Definite Risk Source: patient Exam Limitations: no limitations History of Present Illness Time seen by provider: 20:24 Initial Comments To ER with a painful red lesion to the ulnar side of the proximal phalanx of the fifth digit right hand. This pain radiates up her right arm and then occasionally causes her right finger to swell. This is been present for 2 weeks. No known cause. Onset: just prior to arrival Severity: moderate Pain/Injury Location: right hand Method of Injury: unknown Allergies and Home Medications Allergies Coded Allergies: No Known Drug Allergies (Unverified , 04/08/10) Home Medications Atorvastatin Calcium 40 Mg Tablet, 40 MG PO HS, (Reported) LAST FILLED 11/16/15 #30 Canagliflozin 100 Mg Tablet, #90 (Reported) Carvedilol 3.125 Mg Tablet, 3.125 MG PO BID, #60 Ref 0 Prescribed by: CY WELCH on 01/17/16 1026 Clonidine HCl 0.1 Mg Tablet, 0.1 MG PO BID, (Reported) Docusate Sodium 100 Mg Capsule, 200 MG PO DAILY, (Reported) Donepezil HCl 5 Mg Tablet, #30 (Reported) Gabapentin 300 Mg Capsule, 300 MG PO DAILY, (Reported) 300 MG BID X 5 DAYS, THEN INCREASE 300 MG TID Hydrocodone/Acetaminophen 1 Each Tablet, 1 EACH PO Q6H PRN for PAIN, #14 Prescribed by: DESTIN CHATMAN on 09/10/16 1703 Insulin Aspart 300 Units/3 Ml Solution, 5 UNITS SQ AC, (Reported) AND PER SLIDING SCALE Insulin Detemir 100 Unit/1 Ml Insuln.pen, 25 UNITS SQ HS, (Reported) Levetiracetam 500 Mg Tablet, 500 MG PO BID, (Reported) Levothyroxine Sodium 50 Mcg Tablet, #30 (Reported) Lorazepam 0.5 Mg Tablet, 0.5 MG PO Q6H PRN for ANXIETY, (Reported) Magnesium Hydroxide 400 Mg/5 Ml Oral.susp, 30 ML PO DAILY PRN for CONSTIPATION, (Reported) Metformin HCl 500 Mg Tab.er.24h, 1,000 MG PO BID, (Reported) Mirtazapine 15 Mg Tablet, 7.5 MG PO HS, (Reported) TAKES 1/2 OF A (15 MG) TABLET Sertraline HCl 100 Mg Tablet, 100 MG PO DAILY, (Reported) Constitutional: see HPI, No chills EENTM: see HPI Respiratory: no symptoms reported Cardiovascular: no symptoms reported Genitourinary: no symptoms reported Musculoskeletal: no symptoms reported Skin: no symptoms reported Psychiatric/Neurological: No Symptoms Reported Past Zupgwaj-Ojhjwn-Uoxrip Hx Patient Social History Alcohol Use: Denies Use Recreational Drug Use: No Smoking Status: Never a Smoker 2nd Hand Smoke Exposure: No Recent Foreign Travel: No Contact w/Someone Who Travel: No Recent Infectious Disease Expo: No Recent Hopitalizations: No Immunizations Up To Date Tetanus Booster (TDap): Unknown PED Vaccines UTD: Yes Date of Pneumonia Vaccine: Apr 12, 2015 Date of Influenza Vaccine: Apr 12, 2015 Seasonal Allergies Seasonal Allergies: No Surgeries HX Surgeries: Yes (MELONAMA FROM LEG; CATARACTS REMOVED) Surgeries: Cardiac, Coronary Stent, Eye Surgery, 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 Respiratory Hx Respiratory Disorders: No Cardiovascular Hx Cardiac Disorders: Yes (STENT X1) Cardiac Disorders: Coronary Artery Disease, High Cholesterol, Hypertension Neurological Hx Neurological Disorders: No Neurological Disorders: Stroke 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 System : No Sexually Transmitted Disease: No HIV/AIDS: No Female 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 Disorders: Denies 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, 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 Genitourinary Hx Genitourinary Disorders: No Gastrointestinal Hx Gastrointestinal Disorders: No Musculoskeletal Hx Musculoskeletal Disorders: Yes Musculoskeletal Disorders: Arthritis Endocrine Hx Endocrine Disorders: Yes Endocrine Disorders: Diabetes, Insulin dep, Hypothyroidsim HEENT HX ENT Disorders: Yes (CATARACTS REMOVED) HEENT Disorders: Cataract Loss of Vision: Denies Hearing Impairment: Denies Cancer Hx Cancer: Yes (20 YEARS AGO) Cancer: Cervical Psychosocial Hx Psychiatric Problems: No Behavioral Health Disorders: Depression Integumentary HX Skin/Integumentary Disorder: Yes Skin/Integumentary Disorders: Pruritis Blood Transfusions Hx Blood Disorders: No Adverse Reaction to a Blood Tr: No Family Medical History Significant Family History: Heart Disease, Hypertension Family Medial History: Family history: Alzheimer's disease 03 MOTHER Family history: Hypertension 03 FATHER 03 MOTHER Myocardial infarction 03 FATHER Physical Exam Vital Signs Vital Sign - Last 12Hours 12/30/16 20:09 Temp 97.4 Pulse 75 Resp 16 B/P (MAP) 136/63 Pulse Ox 97 O2 Delivery Room Air Capillary Refill : Less Than 3 Seconds General Appearance: WD/WN, no apparent distress HEENT: PERRL/EOMI, normal ENT inspection Neck: non-tender, full range of motion Respiratory: no respiratory distress, no accessory muscle use Gastrointestinal: non tender, soft Shoulder: normal inspection, non-tender Elbow/Forearm: normal inspection, non-tender Hand: Right, soft tissue tenderness (there is a 3 mm dark red macule to the ulnar side of the proximal phalanx of the fifth digit right hand. There is no surrounding erythema, this is well demarcated. No ecchymosis. There is no cellulitis or swelling of the hand or the finger. No deformity swelling or ecchymosis or lymphangitis to the forearm. I do not see any foreign bodies and this is not a palpable lesion.) Neurologic/Psychiatric: alert, normal mood/affect, oriented x 3 Skin: normal color, warm/dry Comments There is swelling to the right leg without ecchymosis or erythema Progress/Results/Core Measures Results/Orders My Orders Orders - GINA PRATT APRN Venous Lower Ext Rt (12/30/16 20:22) Vital Signs/I&O Vital Sign - Last 12Hours 12/30/16 20:09 Temp 97.4 Pulse 75 Resp 16 B/P (MAP) 136/63 Pulse Ox 97 O2 Delivery Room Air Blood Pressure Mean: 87 Departure Communication Progress Notes I did discuss with the patient possibility of a herpetic mai side of her finger though I cannot otherwise explain what this is. She is to see her primary care provider tomorrow. Since this is been present for 2 weeks and would be no value to adding acyclovir if this is a herpetic mai Impression Impression: Primary Impression: Right leg swelling Additional Impression: painful macule of right hand Disposition: HOME, SELF-CARE Condition: Stable Departure-Patient Inst. Decision time for Depature: 20:28 Referrals: [facility] (PCP/Family) Primary Care Physician Patient Instructions: NO INSTRUCTIONS GIVEN Add. Discharge Instructions: 1. Follow-up with Dr. Mendez tomorrow as directed 2. Return to ER for any worsening 3. All discharge instructions reviewed with patient and/or family. Voiced understanding. Copy Copies To 1: FAHAD MENDEZ MD, PETER J APRN Dec 30, 2016 20:28
[2016-12-30] MEDS ORDERED: RX-TRAMADOL 50 MG (ULTRAM) TAB PPK#4 PO STA (20:31)
[2016-12-30 21:07] VITALS: BP 136/63
--- NOTE | 2016-12-30 21:30 | Diagnostic Imaging Report ---
PROCEDURE: US right lower extremity venous. TECHNIQUE: Multiple real-time grayscale images were obtained over the right lower extremity in various projections. Additional duplex Doppler and color Doppler images were also obtained. INDICATION: Leg pain and swelling There are no prior studies available for comparison. There is generally good blood flow and compressibility at all levels. There is no sign of the deep venous thrombosis. IMPRESSION: There is no evidence for deep venous thrombosis in the right lower extremity. Dictated by: Dictated on workstation # [id number]
--- OUTSIDE RECORDS SUMMARY | 2017-01-01 17:05 | XMS REPORT | Continuity of Care Document ---
Author Author [facility] Organization [facility] Address Unknown Phone Unavailable Care Team Providers Care Columnist/Commentator Name Role Phone Dpkira, [facility] PCP [phone] Source Comments Some departments are not documenting in the electronic medical record. If you do not see the information that you expected, contact Release of Information in the Health Information Management department at [phone] for further assistance in locating additional records.[facility] Active Allergies and Adverse Reactions No [...] units Active Problems Problem Noted Date Seizure ([facility]) 10/18/2015 Right sided weakness 10/16/2015 Type 2 diabetes mellitus ([facility]) 10/16/2015 Essential hypertension 10/16/2015 Hyperlipidemia 10/16/2015 Depression 10/16/2015 Altered mental status, unspecified 10/16/2015 Stroke ([facility]) 10/15/2015 Social History Tobacco Use Types Packs/Day [...] Screening 2002 Prevnar/Pneumovax (#1) 2002 Influenza Vaccine 03/13/2017 Results from Last 3 Months Not on file
--- OUTSIDE RECORDS SUMMARY | 2017-01-01 17:05 | XMS REPORT ---
Author Author JUNE GOLDMAN Organization [employer] Address Unknown Phone Unavailable Care Team Providers Care Superintendent Of Schools Name Role Phone JUNE GOLDMAN CP Unavailable Allergies No Known Allergies Problems Problem Type Condition Code Onset Dates Condition Status Problem Pain in left knee M25.562 Active Problem Constipation, unspecified constipation type K59.00 Active Problem Anxiety F41.9 Active Problem Hypothyroidism (acquired) E03.9 Active Problem Hearing loss of aging, bilateral H91.13 Active Problem Left hand weakness M62.81 Active Problem Dementia with behavioral disturbance, unspecified dementia type F03.91 Active Problem Falling episodes R29.6 Active Problem Neuropathy G62.9 Active Problem Weakness R53.1 Active Problem Fatigue, unspecified type R53.83 Active Problem History of arthroplasty of left knee Z96.652 Active Problem Diabetes E11.9 Active Problem Eye exam abnormal R93.8 Active Problem CVA (cerebral vascular accident) I63.9 Active Problem Anxiety disorder, unspecified F41.9 Active Problem Dementia F03.90 Active Problem Hypertension I10 Active Problem Panic attack F41.0 Active Problem Major depressive disorder, single episode, moderate F32.1 Active Problem Other chronic pain G89.29 Active Medications No Known Medications Results No Known Results Summary Purpose [employer] Submission
--- OUTSIDE RECORDS SUMMARY | 2017-01-01 17:05 | XMS REPORT ---
Author Author JAGDISH TEMPLE Organization eClinicalWorks Address Unknown Phone Unavailable Care Team Providers Care Sewer Digger Name Role Phone JAGDISH TEMPLE CP Unavailable Allergies No Known Allergies Problems Problem Type Condition Code Onset Dates Condition Status Assessment Anxiety disorder, unspecified F41.9 Active Problem Adjustment disorder with depressed mood 309.0 Active Problem Other specified cardiac dysrhythmias 427.89 Active Assessment Major depressive disorder, single episode, moderate F32.1 Active Problem Major depressive disorder, single episode, moderate F32.1 Active Problem Hypertension I10 Active Problem Anxiety disorder, unspecified F41.9 Active Problem Other dyspnea and respiratory abnormalities 786.09 Active Problem Need for prophylactic vaccination and inoculation, Influenza V04.81 Active Problem Diabetes E11.9 Active Problem Unspecified intracranial hemorrhage 432.9 Active Medications No Known Medications Procedures Procedure Coding System Code Date Psych diagnostic evaluation, established patient CPT-4 19217 Jul 09, 2015 [facility] VISIT MENTAL HEALTH ESTAB PT CPT-4 G0470 Jul 09, 2015 Results No Known Results Summary Purpose eClinicalWorks Submission
--- OUTSIDE RECORDS SUMMARY | 2017-01-01 17:05 | XMS REPORT ---
Author Author JUNE GOLDMAN Organization eClinical[employer] Address Unknown Phone Unavailable Care Team Providers Care Line Analyst Name Role Phone JUNE GOLDMAN CP Unavailable Allergies No Known Allergies Problems Problem Type Condition Code Onset Dates Condition Status Problem Need for prophylactic vaccination and inoculation, Influenza V04.81 Active Problem Unspecified intracranial hemorrhage 432.9 Active Problem Other dyspnea and respiratory abnormalities 786.09 Active Problem Dementia F03.90 Active Problem Anxiety disorder, unspecified F41.9 Active Problem Panic attack F41.0 Active Problem Diabetes E11.9 Active Problem History of arthroplasty of left knee Z96.652 Active Problem Major depressive disorder, single episode, moderate F32.1 Active Problem Hypertension I10 Active Problem CVA (cerebral vascular accident) I63.9 Active Problem Other specified cardiac dysrhythmias 427.89 Active Problem Adjustment disorder with depressed mood 309.0 Active Medications Medication Code System Code Instructions Start Date End Date Status Dosage Levemir FlexTouch [facility] [address]-90 100 UNIT/ML Subcutaneous Once a day at HS 25 Units Results No Known Results Summary Purpose eClinicalWorks Submission
--- OUTSIDE RECORDS SUMMARY | 2017-01-01 17:05 | XMS REPORT ---
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 Problem Adjustment disorder with depressed mood 309.0 Active Problem Other specified cardiac dysrhythmias 427.89 Active Problem Major depressive disorder, single episode, moderate F32.1 Active Problem Hypertension I10 Active Problem Anxiety disorder, unspecified F41.9 Active Problem Other dyspnea and respiratory abnormalities 786.09 Active Problem Need for prophylactic vaccination and inoculation, Influenza V04.81 Active Problem Diabetes E11.9 Active Problem Unspecified intracranial hemorrhage 432.9 Active Medications Medication Code System Code Instructions Start Date End Date Status Dosage Clonidine HCl [facility] [address]-49 0.1 MG Orally Once a day as needed Jul 09, 2015 1 tablet Venlafaxine HCl [facility] [address]-76 25 MG Orally Once a day at hs Jul 09, 2015 1 tablet with food MetFORMIN HCl ER [facility] [address]-54 500 MG Orally 2 times a day Feb 26, 2015 1 tablet Lisinopril [facility] [address]-77 40 MG Orally Once a day from ER January 02, 2015 1 tablet Victoza [facility] [address]-71 18 MG/3ML Subcutaneous Once a day Feb 21, 2016 1.8 mg Toprol XL [facility] [address]-36 50 MG Once a day TAKE ONE TABLET BY MOUTH DAILY Tramadol HCl [facility] [address]-44 50 MG Orally every 6 hrs 1-2 tablets as needed Sertraline HCl [facility] [address]-35 100 mg Orally Once a day December 19, 2014 1 tablet Atorvastatin Calcium [facility] [address]-90 80 MG Orally Once a day. Dr Sosa prescribes Jun 14, 2015 1 tablet Procedures Procedure Coding System Code Date Psych diagnostic evaluation w/medical services, established patient CPT-4 85910 Jul 09, 2015 [facility] VISIT MENTAL HEALTH ESTAB PT CPT-4 G0470 Jul 09, 2015 Vital Signs Date/Time: Jul 09, 2015 Blood Pressure Systolic 120 mmHg Cardiac Monitoring Heart Rate 70 bpm Height 62 in Blood Pressure Diastolic 70 mmHg Results No Known Results Summary Purpose eClinicalWorks Submission
--- OUTSIDE RECORDS SUMMARY | 2017-01-01 17:05 | XMS REPORT ---
Author Author JUNE GOLDMAN [facility] eClinicalWorks Address Unknown Phone Unavailable Care Team Providers Care Drawbench Operator Helper Name Role Phone JUNE GOLDMAN CP Unavailable Allergies, Adverse Reactions, Alerts Substance Reaction Event Type N.K.D.A. Info Not Available Non Drug Allergy Problems Problem Type Condition Code Onset Dates Condition Status Assessment Encounter for immunization Z23 Active Problem Other dyspnea and respiratory abnormalities 786.09 Active Problem Need for prophylactic vaccination and inoculation, Influenza V04.81 Active Problem Unspecified intracranial hemorrhage 432.9 Active Assessment Left knee pain M25.562 Active Assessment Type 2 diabetes mellitus with complication E11.8 Active Problem Adjustment disorder with depressed mood 309.0 Active Problem Other specified cardiac dysrhythmias 427.89 Active Medications Medication Code System Code Instructions Start Date End Date Status Dosage Victoza [facility] [address]-70 18 MG/3ML Subcutaneous Once a day Feb 21, 2016 1.8 mg Sertraline HCl [facility] [address]-26 50 MG Orally Once a day December 19, 2014 1 tablet Toprol XL [facility] [address]-80 50 MG Once a day TAKE ONE TABLET BY MOUTH DAILY Invokana [facility] [address]-39 100 MG Orally Once a day January 24, 2015 Aug 22, 2015 1 tablet Hydrocodone-Acetaminophen [facility] [address]-69 5-325 MG Orally 3 times a day May 03, 2015 May 13, 2015 1 tablet as needed Lisinopril [facility] [address]-83 40 MG Orally Once a day from ER January 02, 2015 1 tablet Glimepiride [facility] [address]-25 4 MG Orally Once a day January 02, 2015 1 tablet with breakfast or the first main meal of the day MetFORMIN HCl ER [facility] [address]-67 500 MG Orally 2 times a day Feb 26, 2015 2 tablet with evening meal Procedures Procedure Coding System Code Date MICROALBUMIN, SEMIQUANT CPT-4 58561 May 03, 2015 LAB NOT BILLED BY [facility] CPT-4 NOBLL May 03, 2015 GLYCATED HEMOGLOBIN TEST CPT-4 39194 May 03, 2015 SINGLE IMMUNIZATION ADMIN CPT-4 87845 May 03, 2015 FLUARIX QUAD (3 & UP)-GSK-2014 CPT-4 59066 May 03, 2015 Office Visit, Est Pt., Level 3 CPT-4 87181 May 03, 2015 [facility] VISIT ESTABLISHED PATIENT CPT-4 G0467 May 03, 2015 Vital Signs Date/Time: May 03, 2015 Temperature 97.8 F Weight 180 lbs Height 62 in BMI 32.92 Index Blood Pressure Diastolic 90 mmHg Blood Pressure Systolic 150 mmHg Cardiac Monitoring Heart Rate 70 bpm Results No Known Results Immunizations Vaccine Administration Date FLUARIX QUAD (3 & UP)-GSK-2014May 03, 2015 Summary Purpose eClinicalWorks Submission
--- OUTSIDE RECORDS SUMMARY | 2017-01-01 17:05 | XMS REPORT ---
Author Author JUNE GOLDMAN Organization eClinicalWorks Address Unknown Phone Unavailable Care Team Providers Care Christian Science Practitioner Name Role Phone JUNE GOLDMAN CP Unavailable Allergies No Known Allergies Problems Problem Type Condition Code Onset Dates Condition Status Problem Other chronic pain G89.29 Active Problem Anxiety F41.9 Active Problem Pain in left knee M25.562 Active Problem Left hand weakness M62.81 Active Problem Weakness R53.1 Active Problem Hypothyroidism (acquired) E03.9 Active Problem Neuropathy G62.9 Active Problem Constipation, unspecified constipation type K59.00 Active Problem Fatigue, unspecified type R53.83 Active Problem Falling episodes R29.6 Active Problem CVA (cerebral vascular accident) I63.9 Active Problem History of arthroplasty of left knee Z96.652 Active Problem Hearing loss of aging, bilateral H91.13 Active Problem Eye exam abnormal R93.8 Active Problem Major depressive disorder, single episode, moderate F32.1 Active Problem Anxiety disorder, unspecified F41.9 Active Problem Diabetes E11.9 Active Problem Dementia F03.90 Active Problem Hypertension I10 Active Problem Panic attack F41.0 Active Medications No Known Medications Results No Known Results Summary Purpose eClinicalWorks Submission
--- OUTSIDE RECORDS SUMMARY | 2017-01-01 17:05 | XMS REPORT ---
Author Author JUNE GOLDMAN [facility] eClinicalWorks Address Unknown Phone Unavailable Care Team Providers Care Planer Setup Operator Name Role Phone JUNE GOLDMAN CP Unavailable Allergies No Known Allergies Problems Problem Type Condition Code Onset Dates Condition Status Problem Dementia F03.90 Active Problem Other chronic pain G89.29 Active Problem Panic attack F41.0 Active Problem Fatigue, unspecified type R53.83 Active Assessment Panic attack F41.0 Active Problem Falling episodes R29.6 Active Assessment Pain in left knee M25.562 Active Assessment Hypertension 401.9 Active Problem Weakness R53.1 Active Problem Anxiety F41.9 Active Problem Pain in left knee M25.562 Active Problem Neuropathy G62.9 Active Problem Constipation, unspecified constipation type K59.00 Active Problem Hearing loss of aging, bilateral H91.13 Active Problem Eye exam abnormal R93.8 Active Assessment Neuropathy G62.9 Active Assessment Diabetes E11.9 Active Problem Diabetes E11.9 Active Problem Hypertension I10 Active Problem CVA (cerebral vascular accident) I63.9 Active Problem Major depressive disorder, single episode, moderate F32.1 Active Problem History of arthroplasty of left knee Z96.652 Active Problem Anxiety disorder, unspecified F41.9 Active Medications Medication Code System Code Instructions Start Date End Date Status Dosage Aggrenox [facility] [address]-49 25-200 MG Orally Twice a day 1 capsule Levetiracetam [facility] [address]-28 500 MG Orally Twice a day 1 tablet Carvedilol [facility] [address]-66 3.125 MG Orally 2 times a day January 17, 2016 1 tablet Invokana [facility] [address]-82 100 MG Orally Once a day September 20, 2015 1 tablet Remeron [facility] 12853114107 15 MG Orally Once a day 0.5 tablet before bedtime in the evening Levemir FlexTouch [facility] [address]-47 100 UNIT/ML Subcutaneous Once a day 25 Units at bedtime Colace [facility] [address]-58 100 MG Orally Once a day 1 capsule as needed Atorvastatin Calcium [facility] [address]-15 40 mg Orally Once a day 1 tablet at bedtime Toprol XL [facility] [address]-14 50 mg Orally Once a day 1 tablet NovoLog [facility] [address]-92 100 UNIT/ML Subcutaneous Once a day 5 units before breakfast MetFORMIN HCl ER [facility] [address]-50 500 MG Orally 2 times a day Feb 26, 2015 1 tablet with meals Sertraline HCl [facility] [address]-22 100 MG Orally Once a day 1 tablet Neurontin [facility] [address]-65 300 MG Orally 3 times a day January 01, 2016 1 capsule Results No Known Results Summary Purpose eClinicalWorks Submission
--- OUTSIDE RECORDS SUMMARY | 2017-01-01 17:05 | XMS REPORT ---
Author Author JUNE GOLDMAN [facility] Address [address] [place] [address] Care Team Providers Care Camp Director Name Role Phone JUNE GOLDMAN Unavailable PROBLEMS Type Condition ICD9-CM Code CPT04-OJ Code Onset Dates Condition Status SNOMED Code Problem Panic attack F41.0 Active 848893362 Problem Pain in left knee M25.562 Active 54930153 Problem Other chronic pain G89.29 Active 40776337 Problem Weakness R53.1 Active 64169328 Problem Fatigue, unspecified type R53.83 Active 78686474 Problem Constipation, unspecified constipation type K59.00 Active 59725439 Problem Anxiety F41.9 Active 78929553 Problem Falling episodes R29.6 Active 617435580 Problem Neuropathy G62.9 Active 226341193 Problem Eye exam abnormal R93.8 Active 323474181 Problem CVA (cerebral vascular accident) I63.9 Active 685599075 Problem Hearing loss of aging, bilateral H91.13 Active 63739359 Problem Hypertension I10 Active 57349341 Problem Major depressive disorder, single episode, moderate F32.1 Active 653087129 Problem History of arthroplasty of left knee Z96.652 Active 475059068 Problem Anxiety disorder, unspecified F41.9 Active 727266763 Problem Diabetes E11.9 Active 22020183 Problem Dementia F03.90 Active 09051027 ALLERGIES Unknown Allergies SOCIAL HISTORY No smoking Hx information available PLAN OF CARE VITAL SIGNS MEDICATIONS Medication Instructions Dosage Frequency Start Date End Date Duration Status Tramadol HCl 50 mg Orally at nite for leg pain 2 tablet as needed Feb Active RESULTS No Results PROCEDURES No Known procedures IMMUNIZATIONS No Known Immunizations
--- OUTSIDE RECORDS SUMMARY | 2017-01-01 17:05 | XMS REPORT ---
Author Author CY WELCH eClinicalWorks Address Unknown Phone Unavailable Care Team Providers Care Wood Polisher Name Role Phone CY WELCH Unavailable Allergies No Known Allergies Problems Problem Type Condition Code Onset Dates Condition Status Problem Dementia F03.90 Active Problem Other chronic pain G89.29 Active Problem Panic attack F41.0 Active Problem Fatigue, unspecified type R53.83 Active Problem CVA (cerebral vascular accident) I63.9 Active Problem Falling episodes R29.6 Active Problem Eye exam abnormal R93.8 Active Problem Hearing loss of aging, bilateral H91.13 Active Problem Weakness R53.1 Active Problem Anxiety F41.9 Active Problem Pain in left knee M25.562 Active Problem Neuropathy G62.9 Active Problem Constipation, unspecified constipation type K59.00 Active Problem Need for prophylactic vaccination and inoculation, Influenza V04.81 Active Problem Other dyspnea and respiratory abnormalities 786.09 Active Problem Other specified cardiac dysrhythmias 427.89 Active Problem Adjustment disorder with depressed mood 309.0 Active Problem Diabetes E11.9 Active Problem Hypertension I10 Active Problem Unspecified intracranial hemorrhage 432.9 Active Problem Major depressive disorder, single episode, moderate F32.1 Active Problem History of arthroplasty of left knee Z96.652 Active Problem Anxiety disorder, unspecified F41.9 Active Medications Medication Code System Code Instructions Start Date End Date Status Dosage Sertraline HCl [facility] 21180425395 100 MG TAKE ONE TABLET BY MOUTH ONCE DAILY Neurontin [facility] [address]-06 300 MG Orally 2 times a day January 01, 2016 1 capsule NovoLog [facility] [address]-69 100 UNIT/ML Subcutaneous AC 5 units Test strips [facility] 0 Test Strips ICD10- E11.9 2 times a day October 25, 2015 test blood sugar Carvedilol [facility] [address]-76 3.125 MG Orally 2 times a day January 17, 2016 1 tablet Levetiracetam [facility] 01278837245 500 MG TAKE ONE TABLET BY MOUTH TWICE DAILY Colace [facility] [address]-48 100 MG Orally Once a day 2 capsule as needed Aggrenox [facility] 49082247736 25-200 MG TAKE ONE CAPSULE BY MOUTH TWICE DAILY Levemir FlexTouch [facility] [address]-58 100 UNIT/ML Subcutaneous 25 Units at bedtime MetFORMIN HCl ER [facility] [address]-68 500 MG Orally 2 times a day Feb 26, 2015 2 tablet Blood Glucose Monitor System [facility] 0 N/A Once a day Jul 23, 2015 test blood sugar Ativan [facility] [address]-67 0.5 MG Orally every 6 hrs for Anxiety December 13, 2015 1 tablet as needed Milk of Magnesia [facility] [address]-25 7.75 % Orally Once a day January 01, 2016 30 ml as needed Clonidine HCl [facility] [address]-14 0.1 MG Orally 2 times a day 1 tablet Remeron [facility] [address]-45 15 MG Orally Once a day at HS 0.5 tablet before bedtime in the evening Tramadol HCl [facility] [address]-01 50 mg Orally 2 times a day December 03, 2015 1-2 tablets Atorvastatin Calcium [facility] 02297621274 40 MG TAKE ONE TABLET BY MOUTH AT BEDTIME Invokana [facility] [address]-34 100 MG Orally Once a day #35 samples September 20, 2015 1 tablet Results No Known Results Summary Purpose eClinicalWorks Submission
--- OUTSIDE RECORDS SUMMARY | 2017-01-01 17:05 | XMS REPORT ---
Author Author JUNE GOLDMAN Organization eClinicalWorks Address Unknown Phone Unavailable Care Team Providers Care Master Fire Control Technician Name Role Phone JUNE GOLDMAN CP Unavailable Allergies No Known Allergies Problems Problem Type Condition Code Onset Dates Condition Status Problem Diabetes E11.9 Active Problem Unspecified intracranial hemorrhage 432.9 Active Problem Hypertension I10 Active Problem Adjustment disorder with depressed mood 309.0 Active Problem Other specified cardiac dysrhythmias 427.89 Active Problem Other dyspnea and respiratory abnormalities 786.09 Active Problem Need for prophylactic vaccination and inoculation, Influenza V04.81 Active Medications Medication Code System Code Instructions Start Date End Date Status Dosage Sertraline HCl [facility] [address]-16 100 mg Orally Once a day December 19, 2014 1 tablet MetFORMIN HCl ER [facility] [address]-54 500 MG Orally 2 times a day Feb 26, 2015 1 tablet Atorvastatin Calcium [facility] [address]-70 80 MG Orally Once a day. Dr Sosa prescribes Jun 14, 2015 1 tablet Results No Known Results Summary Purpose eClinicalWorks Submission
--- OUTSIDE RECORDS SUMMARY | 2017-01-01 17:06 | XMS REPORT ---
Author Author JUNE GOLDMAN Organization eClinicalWorks Address Unknown Phone Unavailable Care Team Providers Care Roofing Layer Name Role Phone JUNE GOLDMAN CP Unavailable [...] moderate F32.1 Active Problem Hypertension I10 Active Assessment Panic attack F41.0 Active Problem CVA (cerebral vascular accident) I63.9 Active Problem Other specified cardiac dysrhythmias 427.89 Active Problem Adjustment disorder with depressed mood 309.0 Active Medications Medication Code System Code Instructions Start Date End Date Status Dosage Ativan [facility] [address]-62 0.5 MG Orally Once a day October 25, 2015 1 tablet as needed Results No Known Results Summary Purpose eClinicalWorks Submission
--- OUTSIDE RECORDS SUMMARY | 2017-01-01 17:06 | XMS REPORT ---
Author Author JUNE GOLDMAN Organization eClinicalWorks Address Unknown Phone Unavailable Care Team Providers Care Deep Submergence Vehicle Operator Name Role Phone JUNE GOLDMAN CP Unavailable Allergies No Known Allergies Problems Problem Type Condition Code Onset Dates Condition Status Problem Other chronic pain G89.29 Active Problem Anxiety F41.9 Active Problem Pain in left knee M25.562 Active Problem Left hand weakness M62.81 Active Assessment Neuropathy G62.9 Active Problem Weakness R53.1 Active Problem Hypothyroidism [...] Active Problem Panic attack F41.0 Active Medications Medication Code System Code Instructions Start Date End Date Status Dosage Tramadol HCl [facility] [address]-35 50 mg Orally at nite for leg pain Feb 11, 2016 2 tablet as needed Results No Known Results Summary Purpose eClinicalWorks Submission
--- OUTSIDE RECORDS SUMMARY | 2017-01-01 17:06 | XMS REPORT ---
Author Author JESSICA CURIEL [facility] eClinicalWorks Address Unknown Phone Unavailable Care Team Providers Care Nurse Ortho Name Role Phone JESSICA CURIEL CP Unavailable Allergies No Known Allergies Problems Problem Type Condition Code Onset Dates Condition Status Problem Adjustment disorder with depressed mood 309.0 Active Problem Other dyspnea and respiratory abnormalities 786.09 Active Problem Need for prophylactic vaccination and inoculation, Influenza V04.81 Active Problem CVA (cerebral vascular accident) I63.9 Active Problem Other specified cardiac dysrhythmias 427.89 Active Problem Anxiety disorder, unspecified F41.9 Active Problem Major depressive disorder, single episode, moderate F32.1 Active Problem Dementia F03.90 Active Problem History of arthroplasty of left knee Z96.652 Active Problem Unspecified intracranial hemorrhage 432.9 Active Problem Hypertension I10 Active Problem Diabetes E11.9 Active Medications Medication Code System Code Instructions Start Date End Date Status Dosage Atorvastatin Calcium [facility] [address]-52 80 MG Orally Once a day. Dr Sosa prescribes Jun 14, 2015 October 24, 2015 1 tablet MetFORMIN HCl ER [facility] [address]-64 500 MG Orally 2 times a day Feb 26, [address] [facility] [address]-88 5-325 MG Orally every 4 hrs Sep 06, 2015 1-2 tablet as needed Sertraline HCl [facility] [address]-15 100 mg Orally Once a day December 19, 2014 1 tablet Blood Glucose Monitor System [facility] 0 N/A Once a day Jul 23, 2015 test blood sugar Levemir FlexTouch [facility] [address]-07 100 UNIT/ML Subcutaneous Once a day at HS 20 Units Clonidine HCl [facility] [address]-80 0.1 MG Orally 2 times a day Jul 09, 2015 1 tablet Toprol XL [facility] [address]-64 50 mg Once a day TAKE ONE TABLET BY MOUTH DAILY Aggrenox [facility] [address]-75 25-200 MG Orally Twice a day October 24, [address] [facility] [address]-92 100 UNIT/ML Subcutaneous AC [address] [facility] [address]-28 500 MG Orally every 12 hrs 1 tablet Results No Known Results Summary Purpose eClinicalWorks Submission
--- OUTSIDE RECORDS SUMMARY | 2017-01-01 17:06 | XMS REPORT ---
Author Author JUNE GOLDMAN Organization eClinicalWorks Address Unknown Phone Unavailable Care Team Providers Care Packer Denture Name Role Phone JUNE GOLDMAN CP Unavailable Allergies No Known Allergies Problems Problem Type Condition ICD-9 Code Onset Dates Condition Status Problem Other specified cardiac dysrhythmias 427.89 Active Problem Diabetes 250.00 Active Problem Unspecified intracranial hemorrhage 432.9 Active Problem Hypertension 401.9 Active Problem Candidiasis of vulva and vagina 112.1 Active Problem Adjustment disorder with depressed mood 309.0 Active Problem Other dyspnea and respiratory abnormalities 786.09 Active Problem Need for prophylactic vaccination and inoculation, Influenza V04.81 Active Medications No Known Medications Results No Known Results Summary Purpose eClinicalWorks Submission
--- OUTSIDE RECORDS SUMMARY | 2017-01-01 17:06 | XMS REPORT ---
Author Author JUNE GOLDMAN [facility] Address [address] [place] [address] Care Team Providers Care Cage Manager Name Role Phone JUNE GOLDMAN Unavailable PROBLEMS Type Condition ICD9-CM Code [id number] Code Onset Dates Condition Status SNOMED Code Problem Panic attack F41.0 Active 774591677 Problem Pain in left knee M25.562 Active 00244812 Problem Other chronic pain G89.29 Active 30987204 Problem Weakness R53.1 Active 25220359 Problem Fatigue, unspecified type R53.83 Active 59422015 Problem Constipation, unspecified constipation type K59.00 Active 36168044 Problem Anxiety F41.9 Active 30894394 Problem Falling episodes R29.6 Active 698856920 Problem Neuropathy G62.9 Active 289766485 Problem Eye exam abnormal R93.8 Active 457063187 Problem CVA (cerebral vascular accident) I63.9 Active 140360159 Problem Hearing loss of aging, bilateral H91.13 Active 68978744 Problem Hypertension I10 Active 27255201 Problem Major depressive disorder, single episode, moderate F32.1 Active 221740447 Problem History of arthroplasty of left knee Z96.652 Active 434404214 Problem Anxiety disorder, unspecified F41.9 Active 788140748 Problem Diabetes E11.9 Active 31793092 Problem Dementia F03.90 Active 51537040 ALLERGIES Unknown Allergies SOCIAL HISTORY No smoking Hx information available PLAN OF CARE VITAL SIGNS MEDICATIONS Medication Instructions Dosage Frequency Start Date End Date Duration Status Atorvastatin Calcium 40 mg Orally Once a day 1 tablet at bedtime 24h 90 days Active RESULTS No Results PROCEDURES No Known procedures IMMUNIZATIONS No Known Immunizations
--- OUTSIDE RECORDS SUMMARY | 2017-01-01 17:06 | XMS REPORT ---
Author Author JUNE GOLDMAN [facility] eClinicalWorks Address Unknown Phone Unavailable Care Team Providers Care Ordnance Artificer Name Role Phone JUNE GOLDMAN CP Unavailable Allergies No Known Allergies Problems Problem Type Condition Code Onset Dates Condition Status Problem Other chronic pain G89.29 Active Problem Anxiety F41.9 Active Problem Pain in left knee M25.562 Active Problem Left hand weakness M62.81 Active Assessment Hypothyroidism (acquired) E03.9 Active Problem Weakness R53.1 Active Problem Hypothyroidism [...] Instructions Start Date End Date Status Dosage Blood Glucose Monitor System [facility][NOTE 3] 0 N/A Once a day Jul 23, 2015 test blood sugar Test strips ND 0 Test Strips ICD10- E11.9 2 times a day October 25, 2015 test blood sugar Colace [facility][NOTE 3] [address]-46 100 MG Orally Once a day 1 capsule as needed Wheelchair [facility][NOTE 3] 32045-44187 - January 21, 2016 as directed Levetiracetam [facility][NOTE 3] [address]-15 500 MG Orally Twice a day 1 tablet Levothyroxine Sodium [facility][NOTE 3] [address]-83 50 MCG Orally Once a day Apr 22, 2016 1 tablet on an empty stomach in the morning Carvedilol [facility][NOTE 3] [address]-92 3.125 MG Orally 2 times a day January 17, 2016 1 tablet Atorvastatin Calcium [facility][NOTE 3] [address]-92 40 mg Orally Once a day 1 tablet at bedtime Flector [facility][NOTE 3] [address]-99 1.3 % Transdermal 1-2 times a day Apr 03, 2016 1 patch to skin Aggrenox [facility][NOTE 3] [address]-17 25-200 MG Orally Twice a day 1 capsule MetFORMIN HCl ER [facility][NOTE 3] [address]-58 500 MG Orally 2 times a day Feb 26, 2015 1 tablet with meals Milk of Magnesia [facility][NOTE 3] [address]-26 7.75 % Orally Once a day January 01, 2016 5 ml as needed Megace ES [facility][NOTE 3] [address]-58 625 MG/5ML Orally Once a day Feb 11, 2016 4 ml Invokana [facility][NOTE 3] [address]-43 100 MG Orally Once a day September 20, 2015 1 tablet Potassium Chloride [facility][NOTE 3] [address]-29 20 MEQ Orally Once a day Apr 22, 2016 Jul 21, 2016 1 packet with food Neurontin [facility][NOTE 3] [address]-79 300 MG Orally 3 times a day January 01, 2016 1 capsule Sertraline HCl [facility][NOTE 3] [address]-32 100 MG Orally Once a day 1 tablet Tramadol HCl [facility][NOTE 3] [address]-62 50 mg Orally at nite for leg pain Feb 11, 2016 2 tablet as needed Results No Known Results Summary Purpose eClinicalWorks Submission
--- OUTSIDE RECORDS SUMMARY | 2017-01-01 17:06 | XMS REPORT ---
Author Author JUNE GOLDMAN Organization [employer] Address Unknown Phone Unavailable Care Team Providers Care Sql Server Bi Developer Name Role Phone JUNE GOLDMAN CP Unavailable [...]
--- OUTSIDE RECORDS SUMMARY | 2017-01-01 17:06 | XMS REPORT ---
Author Author JUNE GOLDMAN Organization [employer]Clinical[employer] Address Unknown Phone Unavailable Care Team Providers Care Senior Director Marketing Name Role Phone JUNE GOLDMAN CP Unavailable Allergies No Known Allergies Problems Problem Type Condition Code Onset Dates Condition Status Problem Adjustment disorder with depressed mood 309.0 Active Problem Other dyspnea and respiratory abnormalities 786.09 Active Problem Need for prophylactic vaccination and inoculation, Influenza V04.81 Active Problem Anxiety disorder, unspecified F41.9 Active Problem Major depressive disorder, single episode, moderate F32.1 Active Problem Dementia F03.90 Active Problem History of arthroplasty of left knee Z96.652 Active Problem Unspecified intracranial hemorrhage 432.9 Active Problem Hypertension I10 Active Problem Diabetes E11.9 Active Assessment CVA (cerebral vascular accident) I63.9 Active Problem CVA (cerebral vascular accident) I63.9 Active Problem Other specified cardiac dysrhythmias 427.89 Active Medications No Known Medications Results No Known Results Summary Purpose eClinicalWorks Submission
--- OUTSIDE RECORDS SUMMARY | 2017-01-01 17:06 | XMS REPORT ---
Author Author JUNE GOLDMAN [facility] eClinicalWorks Address Unknown Phone Unavailable Care Team Providers Care Drawer Maker Name Role Phone JUNE GOLDMAN CP Unavailable Allergies, Adverse Reactions, Alerts Substance Reaction Event Type N.K.D.A. Info Not Available Non Drug Allergy Problems Problem Type Condition ICD-9 Code Onset Dates Condition Status Assessment Diabetes 250.00 Active Problem Other specified cardiac dysrhythmias 427.89 Active Assessment Hypertension 401.9 Active Problem Diabetes 250.00 Active Problem Unspecified intracranial hemorrhage 432.9 Active Problem Hypertension 401.9 Active Problem Candidiasis of vulva and vagina 112.1 Active Problem Adjustment disorder with depressed mood 309.0 Active Problem Other dyspnea and respiratory abnormalities 786.09 Active Problem Need for prophylactic vaccination and inoculation, Influenza V04.81 Active Medications Medication Code System Code Instructions Start Date End Date Status Dosage Victoza [facility] [address]-43 18 MG/3ML Subcutaneous Once a day Feb 21, 2016 1.8 mg MetFORMIN HCl ER [facility] [address]-40 500 MG Orally 2 times a day Feb 26, 2015 2 tablet with evening meal Lisinopril [facility] [address]-67 20 MG Orally Once a day January 02, 2015 1 tablet Sertraline HCl [facility] [address]-98 50 MG Orally Once a day December 19, 2014 1 tablet Toprol XL [facility] [address]-83 50 MG Once a day TAKE ONE TABLET BY MOUTH DAILY Invokana [facility] [address]-62 100 MG Orally Once a day January 24, 2015 Aug 22, 2015 1 tablet Glimepiride [facility] [address]-32 4 MG Orally Once a day January 02, 2015 1 tablet with breakfast or the first main meal of the day Procedures Procedure Coding System Code Date [facility] VISIT ESTABLISHED PATIENT CPT-4 G0467 Feb 26, 2015 Office Visit, Est Pt., Level 3 CPT-4 59525 Feb 26, 2015 LAB NOT BILLED BY [facility] CPT-4 NOBLL Feb 26, 2015 VENIPUNCT, ROUTINE* CPT-4 68440 Feb 26, 2015 Vital Signs Date/Time: Feb 26, 2015 Temperature 98.0 F Weight 188 lbs Height 62 in BMI 34.38 Index Blood Pressure Diastolic 90 mmHg Blood Pressure Systolic 174 mmHg Cardiac Monitoring Heart Rate 80 bpm Results Name Result Date Reference Range Unit Abnormality Flag TSH Summary Purpose eClinicalWorks Submission
--- OUTSIDE RECORDS SUMMARY | 2017-01-01 17:06 | XMS REPORT ---
Author Author JUNE GOLDMAN [facility] eClinicalWorks Address Unknown Phone Unavailable Care Team Providers Care Cipher Expert Name Role Phone JUNE GOLDMAN CP Unavailable Allergies, Adverse Reactions, Alerts Substance Reaction Event Type N.K.D.A. Info Not Available Non Drug Allergy Problems Problem Type Condition Code Onset Dates Condition Status Assessment Left knee pain M25.562 Active Problem Diabetes E11.9 Active Problem Unspecified [...] Status Dosage Sertraline HCl [facility] [address]-28 50 MG Orally Once a day December 19, 2014 1 tablet Tramadol HCl [facility] [address]-05 50 MG Orally every 6 hrs during the AM for pain Jun 05, 2015 Jun 19, 2015 2 tablet as needed Toprol XL [facility] [address]-13 50 MG Once a day TAKE ONE TABLET BY MOUTH DAILY Lisinopril [facility] [address]-77 40 MG Orally Once a day from ER January 02, 2015 1 tablet Tramadol HCl [facility] [address]-06 50 MG Orally every 6 hrs 1-2 tablets as needed Glimepiride [facility] [address]-48 4 MG Orally Once a day January 02, 2015 1 tablet with breakfast or the first main meal of the day Victoza [facility] [address]-27 18 MG/3ML Subcutaneous Once a day Feb 21, 2016 1.8 mg MetFORMIN HCl ER [facility] [address]-45 500 MG Orally 2 times a day Feb 26, 2015 2 tablet with evening meal Invokana [facility] [address]-51 100 MG Orally Once a day January 24, 2015 Aug 22, 2015 1 tablet Percocet [facility] [address]-08 5-325 MG Orally every 6 hrs in the PM for pain Jun 05, 2015 Jun 19, 2015 1-2 tablet as needed Procedures Procedure Coding System Code Date Office Visit, Est Pt., Level 3 CPT-4 23232 Jun 05, 2015 [facility] VISIT ESTABLISHED PATIENT CPT-4 G0467 Jun 05, 2015 Vital Signs Date/Time: Jun 05, 2015 Temperature 97.6 F Weight 166.5 lbs Height 62 in BMI 30.45 Index Cardiac Monitoring Heart Rate 72 bpm Results No Known Results Summary Purpose eClinicalWorks Submission
--- OUTSIDE RECORDS SUMMARY | 2017-01-01 17:07 | XMS REPORT ---
Author Author JUNE GOLDMAN [facility] Address [address] [place] [address] Care Team Providers Care Surgical Instruments Inspector Name Role Phone JUNE GOLDMAN Unavailable PROBLEMS Type Condition ICD9-CM Code [id number] Code Onset Dates Condition Status SNOMED Code Problem Anxiety F41.9 Active 01291388 Problem Neuropathy G62.9 Active 523511692 Problem Constipation, unspecified constipation type K59.00 Active 38828987 Problem Dementia with behavioral disturbance, unspecified dementia type F03.91 Active 1254058621707 Problem Eye exam abnormal R93.8 Active 501180110 Problem Hypothyroidism (acquired) E03.9 Active 419053237 Problem Hearing loss of aging, bilateral H91.13 Active 37635412 Assessment Dementia with behavioral disturbance, unspecified dementia type F03.91 May, Active 4123730021620 Problem Fatigue, unspecified type R53.83 Active 98548588 Problem Falling episodes R29.6 Active 909429757 Problem Left hand weakness M62.81 Active 973428982 Problem Weakness R53.1 Active 47735787 Problem Diabetes E11.9 Active 49936190 Problem Hypertension I10 Active 40266807 Problem CVA (cerebral vascular accident) I63.9 Active 907099174 Problem History of arthroplasty of left knee Z96.652 Active 927450179 Problem Dementia F03.90 Active 60719185 Problem Panic attack F41.0 Active 571761643 Problem Major depressive disorder, single episode, moderate F32.1 Active 036083754 Problem Other chronic pain G89.29 Active 63902070 Assessment Encounter for immunization Z23 May, Active 754664311 Problem Anxiety disorder, unspecified F41.9 Active 861111076 Problem Pain in left knee M25.562 Active 74338422 ALLERGIES Substance Reaction Event Type Date Status Victoza stomach upset Drug Allergy May, Active SOCIAL HISTORY No smoking Hx information available PLAN OF CARE Activity Details Pending Test CT Scan : Head/Brain w/o & w/ Contrast 2 Weeks,Reason: VITAL SIGNS Height 62 in 2016-05-28 Heart Rate 60 bpm 2016-05-28 Respiratory Rate 18 2016-05-28 Blood pressure systolic 140 mmHg 2016-05-28 Blood pressure diastolic 62 mmHg 2016-05-28 MEDICATIONS Medication Instructions Dosage Frequency Start Date End Date Duration Status Blood Glucose Monitor System N/A test blood sugar 24h 11 Jul, 2015 Active Levetiracetam 500 MG Orally Twice a day 1 tablet 12h 90 days Active Neurontin 300 MG Orally 3 times a day 1 capsule 8h Dec, 30 days Active Colace 100 MG Orally Once a day 1 capsule as needed 24h 30 days Active Aricept 5 mg Orally Once a day 1 tablet at bedtime 24h May, Active Aspirin 81 MG Orally Once a day 1 tablet 24h Aug, 30 day(s) Active Carvedilol 3.125 MG Orally 2 times a day 1 tablet 12h 30 Active Levothyroxine Sodium 50 MCG Orally Once a day 1 tablet on an empty stomach in the morning 24h Apr, 30 day(s) Active Invokana 100 MG Orally Once a day 1 tablet 24h Sep, 90 days Active Aggrenox 25-200 MG Orally Twice a day 1 capsule 12h 90 days Active MetFORMIN HCl ER 500 MG Orally 2 times a day 1 tablet with meals 12h Feb 90 days Active Tylenol 325 MG Orally every 6 hrs 2 tablet as needed 6h Aug, Active Potassium Chloride 20 MEQ Orally Once a day 1 packet with food 24h Apr, Jul, 30 day(s) Active Wheelchair - as directed Jan, Active Test strips Test Strips ICD10- E11.9 2 times a day test blood sugar 12h 14 Oct, 2015 Active Atorvastatin Calcium 40 mg Orally Once a day 1 tablet at bedtime 24h 90 days Active Milk of Magnesia 7.75 % Orally Once a day 5 ml as needed 24h Dec, Active Sertraline HCl 100 MG Orally Once a day 1 tablet 24h 30 days Active RESULTS Name Result Date Reference Range A1C (IN HOUSE) 2016-05-28 A1C IN HOUSE 8.8 4.3 - 5.6 % Previous A1c 7.4 Lot [id number] Exp date 03/2018 PROCEDURES Procedure Date Ordered Related Diagnosis Body Site GLYCATED HEMOGLOBIN TEST May 28, 2016 FLUZONE HIGH DOSE 65 AND UP 2015May 28, 2016 Office Visit, Est Pt., Level 3 May 28, 2016 SINGLE IMMUNIZATION ADMIN May 28, 2016 PCV 13 May 28, 2016 [facility] VISIT ESTABLISHED PATIENT May 28, 2016 IMMUNIZATION ADMIN, EACH ADD (please include units) May 28, 2016 IMMUNIZATIONS Vaccine Route Administration Date Status PCV 13 IM Intramuscular May 28, 2016 Administered FLUZONE HIGH DOSE 65 AND UP 2015 IM Intramuscular May 28, 2016 Administered
--- OUTSIDE RECORDS SUMMARY | 2017-01-01 17:07 | XMS REPORT ---
Author Author JUNE GOLDMAN Organization eClinicalWorks Address Unknown Phone Unavailable Care Team Providers Care Enrichment Teacher Name Role Phone JUNE GOLDMAN CP Unavailable [...]
--- OUTSIDE RECORDS SUMMARY | 2017-01-01 17:07 | XMS REPORT ---
Author Author JUNE GOLDMAN Organization eClinicalWorks Address Unknown Phone Unavailable Care Team Providers Care Project Engineering Manager Name Role Phone JUNE GOLDMAN CP Unavailable [...]
--- OUTSIDE RECORDS SUMMARY | 2017-01-01 17:07 | XMS REPORT ---
Author Author JUNE GOLDMAN Organization eClinicalWorks Address Unknown Phone Unavailable Care Team Providers Care Hand Drawer In Name Role Phone JUNE GOLDMAN CP Unavailable [...]
--- OUTSIDE RECORDS SUMMARY | 2017-01-01 17:07 | XMS REPORT ---
Author Author JUNE GOLDMAN [facility] Address [address] [place] [address] Care Team Providers Care Backend Tester Name Role Phone JUNE GOLDMAN Unavailable PROBLEMS Type Condition ICD9-CM Code KYQ21-TQ Code Onset Dates Condition Status SNOMED Code Problem Panic attack F41.0 Active 682986153 Problem Pain in left knee M25.562 Active 00196556 Problem Other chronic pain G89.29 Active 25070385 Problem Weakness R53.1 Active 88174740 Problem Fatigue, unspecified type R53.83 Active 44247226 Problem Constipation, unspecified constipation type K59.00 Active 64035474 Problem Anxiety F41.9 Active 17067913 Problem Falling episodes R29.6 Active 083534333 Problem Neuropathy G62.9 Active 244251833 Problem Eye exam abnormal R93.8 Active 676647174 Problem CVA (cerebral vascular accident) I63.9 Active 903963983 Problem Hearing loss of aging, bilateral H91.13 Active 11918948 Problem Hypertension I10 Active 58379909 Problem Major depressive disorder, single episode, moderate F32.1 Active 029686884 Problem History of arthroplasty of left knee Z96.652 Active 610425855 Problem Anxiety disorder, unspecified F41.9 Active 444337179 Problem Diabetes E11.9 Active 47098749 Problem Dementia F03.90 Active 60523757 ALLERGIES Unknown Allergies SOCIAL HISTORY No smoking Hx information available PLAN OF CARE VITAL SIGNS MEDICATIONS Medication Instructions Dosage Frequency Start Date End Date Duration Status MetFORMIN HCl ER 500 MG Orally 2 times a day 1 tablet with meals 12h 17 Feb 90 days Active Invokana 100 MG Orally Once a day 1 tablet 24h 10 Sep, 2015 90 days Active Aggrenox 25-200 MG Orally Twice a day 1 capsule 12h 90 days Active Levetiracetam 500 MG Orally Twice a day 1 tablet 12h 90 days Active RESULTS No Results PROCEDURES No Known procedures IMMUNIZATIONS No Known Immunizations
--- OUTSIDE RECORDS SUMMARY | 2017-01-01 17:07 | XMS REPORT ---
Author Author CY WELCH eClinicalWorks Address Unknown Phone Unavailable Care Team Providers Care Hammer Operator Name Role Phone CY WELCH CP Unavailable Allergies No Known Allergies Problems Problem Type Condition Code Onset Dates Condition Status Problem Hypertension I10 Active Problem Anxiety disorder, unspecified F41.9 Active Problem Major depressive disorder, single episode, moderate F32.1 Active Problem Constipation, unspecified constipation type K59.00 Active Problem Anxiety F41.9 Active Problem Neuropathy G62.9 Active Problem Panic attack F41.0 Active Problem Dementia F03.90 Active Problem Pain in left knee M25.562 Active Problem Other chronic pain G89.29 Active Problem CVA (cerebral vascular accident) I63.9 Active Problem Other specified cardiac dysrhythmias 427.89 Active Problem Hearing loss of aging, bilateral H91.13 Active Problem Eye exam abnormal R93.8 Active Problem Other dyspnea and respiratory abnormalities 786.09 Active Problem Unspecified intracranial hemorrhage 432.9 Active Problem Adjustment disorder with depressed mood 309.0 Active Problem History of arthroplasty of left knee Z96.652 Active Problem Need for prophylactic vaccination and inoculation, Influenza V04.81 Active Problem Diabetes E11.9 Active Medications No Known Medications Results No Known Results Summary Purpose eClinicalWorks Submission
--- OUTSIDE RECORDS SUMMARY | 2017-01-01 17:07 | XMS REPORT ---
Author Author JUNE GOLDMAN Organization eClinical[employer] Address Unknown Phone Unavailable Care Team Providers Care Hand Trucker Name Role Phone JUNE GOLDMAN CP Unavailable [...]
--- OUTSIDE RECORDS SUMMARY | 2017-01-01 17:07 | XMS REPORT ---
Author Author JUNE GOLDMAN Organization eClinicalWorks Address Unknown Phone Unavailable Care Team Providers Care Emd Special Education Teacher Name Role Phone JUNE GOLDMAN CP [...]
--- OUTSIDE RECORDS SUMMARY | 2017-01-01 17:07 | XMS REPORT ---
Author Author JUNE GOLDMAN Organization eClinical[employer] Address Unknown Phone Unavailable Care Team Providers Care Rail Signal Worker Name Role Phone JUNE GOLDMAN CP Unavailable [...]
--- OUTSIDE RECORDS SUMMARY | 2017-01-01 17:07 | XMS REPORT ---
Author Author JUNE GOLDMAN [facility] eClinicalWorks Address Unknown Phone Unavailable Care Team Providers Care Software Recruiter Name Role Phone JUNE GOLDMAN CP Unavailable [...] I10 Active Problem Diabetes E11.9 Active Assessment Hypertension I10 Active Assessment Diabetes E11.9 Active Problem CVA (cerebral vascular accident) I63.9 Active Assessment Dementia F03.90 Active Problem Other specified cardiac dysrhythmias 427.89 Active Medications Medication Code System Code Instructions Start Date End Date Status Dosage Sertraline HCl [facility] [address]-08 100 mg Orally Once a day December 19, 2014 1 tablet Atorvastatin Calcium [facility] [address]-99 80 MG Orally Once a day. Dr Sosa prescribes Jun 14, 2015 1 tablet Clonidine HCl [facility] [address]-94 0.1 MG Orally Once a day as needed Jul 09, 2015 1 tablet MetFORMIN HCl ER [facility] [address]-09 500 MG Orally 2 times a day Feb 26, 2015 1 tablet Toprol XL [facility] [address]-56 50 MG Once a day TAKE ONE TABLET BY MOUTH DAILY Insulin Detemir [facility] [address]-87 100 UNIT/ML Subcutaneous 2 times a day October 15, 2015 20 units Blood Glucose Monitor System [facility] 0 N/A Once a day Jul 23, 2015 test blood sugar Lisinopril [facility] [address]-86 20 MG Orally Once a day 1 tablet Percocet [facility] [address]-50 5-325 MG Orally every 4- 6 hrs Sep 06, 2015 1-2 tablet as needed Aspirin [facility] [address]-34 81 MG Orally Once a day Sep 06, 2015 1 tablet Humalog KwikPen [facility] [address]-74 100 UNIT/ML Subcutaneous October 15, 2015 as directed - MUST CALL CLINIC FOR DOSING EACH TIME BLOOD SUGAR IS HIGH Procedures Procedure Coding System Code Date Office Visit, Est Pt., Level 3 CPT-4 64742 October 15, 2015 [facility] EST[facility] PATIENT CPT-4 G0467 October 15, 2015 Vital Signs Date/Time: October 15, 2015 Temperature 97.9 F Weight 149.1 lbs Height 62 in BMI 27.27 Index Blood Pressure Diastolic 78 mmHg Blood Pressure Systolic 162 mmHg Cardiac Monitoring Heart Rate 64 bpm Results No Known Results Summary Purpose eClinicalWorks Submission
--- OUTSIDE RECORDS SUMMARY | 2017-01-01 17:07 | XMS REPORT ---
Author Author JUNE GOLDMAN Organization eClinical[employer] Address Unknown Phone Unavailable Care Team Providers Care Rail Engineer Name Role Phone JUNE GOLDMAN CP Unavailable [...] Date Status Dosage Blood Glucose Monitor System [facility] 0 N/A Once a day Jul 23, 2015 test blood sugar Results No Known Results Summary Purpose eClinicalWorks Submission
--- OUTSIDE RECORDS SUMMARY | 2017-01-01 17:07 | XMS REPORT ---
Author Author JUNE GOLDMAN Organization eClinicalWorks Address Unknown Phone Unavailable Care Team Providers Care Proof Plate Maker Name Role Phone JUNE GOLDMAN CP [...] Date End Date Status Dosage Sertraline HCl [facility] [address]-99 50 MG Orally Once a day December 19, 2014 1 tablet Results No Known Results Summary Purpose eClinicalWorks Submission
--- OUTSIDE RECORDS SUMMARY | 2017-01-01 17:07 | XMS REPORT ---
Author Author JUNE GOLDMAN Organization eClinicalWorks Address Unknown Phone Unavailable Care Team Providers Care Apprentice Stylist Name Role Phone JUNE GOLDMAN CP Unavailable [...]
--- OUTSIDE RECORDS SUMMARY | 2017-01-01 17:08 | XMS REPORT ---
Author Author JUNE GOLDMAN [facility] eClinicalWorks Address Unknown Phone Unavailable Care Team Providers Care Enterprise Integration Architect Name Role Phone JUNE GOLDMAN CP Unavailable Allergies, Adverse Reactions, Alerts Substance Reaction Event Type Victoza stomach upset Drug Allergy Problems Problem Type Condition Code Onset Dates Condition Status Problem Dementia F03.90 Active Problem Other chronic pain G89.29 Active Problem Panic attack F41.0 Active Problem Fatigue, unspecified type R53.83 Active Assessment Anxiety disorder, unspecified F41.9 Active Problem Falling episodes R29.6 Active Assessment Pain in left knee M25.562 Active Assessment Other chronic pain G89.29 Active Problem Weakness R53.1 Active Problem Anxiety F41.9 Active Problem Pain in left knee M25.562 Active Problem Neuropathy G62.9 Active Problem Constipation, unspecified constipation type K59.00 Active Problem Hearing loss of aging, bilateral H91.13 Active Problem Eye exam abnormal R93.8 Active Assessment Edema, unspecified type R60.9 Active Assessment Diabetes E11.9 Active Problem Diabetes E11.9 Active Problem Hypertension I10 Active Problem CVA (cerebral vascular accident) I63.9 Active Problem Major depressive disorder, single episode, moderate F32.1 Active Assessment Status post stroke Z86.73 Active Problem History of arthroplasty of left knee Z96.652 Active Problem Anxiety disorder, unspecified F41.9 Active Medications Medication Code System Code Instructions Start Date End Date Status Dosage Megace ES [facility] [address]-15 625 MG/5ML Orally Once a day Feb 11, 2016 4 ml Aspirin [facility] [address]-49 81 MG Orally Once a day Sep 06, 2015 1 tablet Sertraline HCl [facility] [address]-33 100 MG Orally Once a day 1 tablet Levetiracetam [facility] [address]-56 500 MG Orally Twice a day 1 tablet Invokana [facility] [address]-18 100 MG Orally Once a day September 20, 2015 1 tablet Test strips ND 0 Test Strips ICD10- E11.9 2 times a day October 25, 2015 test blood sugar Flector [facility] [address]-31 1.3 % Transdermal 1-2 times a day Apr 03, 2016 1 patch to skin Milk of Bridget [facility] [address]-08 7.75 % Orally Once a day January 01, 2016 5 ml as needed Aggrenox [facility] [address]-22 25-200 MG Orally Twice a day 1 capsule Atorvastatin Calcium [facility] [address]-07 40 mg Orally Once a day 1 tablet at bedtime Colace [facility] [address]-30 100 MG Orally Once a day 1 capsule as needed Neurontin [facility] [address]-40 300 MG Orally 3 times a day January 01, 2016 1 capsule Blood Glucose Monitor System [facility] 0 N/A Once a day Jul 23, 2015 test blood sugar Tramadol HCl [facility] [address]-67 50 mg Orally at nite for leg pain Feb 11, 2016 2 tablet as needed MetFORMIN HCl ER [facility] [address]-02 500 MG Orally 2 times a day Feb 26, 2015 1 tablet with meals Tylenol [facility] [address]-28 325 MG Orally every 6 hrs Sep 06, 2015 2 tablet as needed Wheelchair [facility] 50[address]-62930 - January 21, 2016 as directed Carvedilol [facility] [address]-15 3.125 MG Orally 2 times a day January 17, 2016 1 tablet Procedures Procedure Coding System Code Date [facility] NOBLL Apr 03, 2016 VENIPUNCT, ROUTINE* CPT-4 07269 Apr 03, 2016 GLYCATED HEMOGLOBIN TEST CPT-4 53606 Apr 03, 2016 Office Visit, Est Pt., Level 3 CPT-4 35947 Apr 03, 2016 [facility] VISIT ESTABLISHED PATIENT CPT-4 G0467 Apr 03, 2016 Vital Signs Date/Time: Apr 03, 2016 Blood Pressure Systolic 160 mmHg Cardiac Monitoring Heart Rate 64 bpm Height 62 in Blood Pressure Diastolic 80 mmHg Results Name Result Date Reference Range Unit Abnormality Flag TSH ----TSH 4.090 20160403 0.450-4.500 uIU/mL CBC ----Basos 0 20160403 % ----MCV 91 30233814 79-97 fL ----Hematocrit 39.7 20160403 34.0-46.6 % ----Eos 1 12630084 % ----MCHC 32.0 71141317 31.5-35.7 g/dL ----Monocytes 5 20160403 % ----MCH 29.1 20160403 26.6-33.0 pg ----Lymphs 21 56185633 % ----Eos (Absolute) 0.1 [id number] 0.0-0.4 x10E3/uL ----WBC 7.1 07154741 3.4-10.8 x10E3/uL ----Monocytes(Absolute) 0.3 31201645 0.1-0.9 x10E3/uL ----Lymphs (Absolute) 1.5 44306057 0.7-3.1 x10E3/uL ----Hemoglobin 12.7 20160403 11.1-15.9 g/dL ----Neutrophils (Absolute) 5.2 38332025 1.4-7.0 x10E3/uL ----RBC 4.36 80466578 3.77-5.28 x10E6/uL ----Immature Grans (Abs) 0.0 10385945 0.0-0.1 x10E3/uL ----Immature Granulocytes 0 20160403 % ----Neutrophils 73 64794301 % ----Baso (Absolute) 0.0 77337216 0.0-0.2 x10E3/uL ----RDW 15.2 20160403 12.3-15.4 % ----Platelets 283 [id number] 150-379 x10E3/uL ROUTINE VENIPUNCTURE A1C (IN HOUSE) ----Exp date [id number] ----Previous A1c 7.7 20160403 ----Lot 0620 20160403 ----A1C IN HOUSE 7.4 20160403 4.3 - 5.6 % LIPID PANEL ----LDL Cholesterol Calc 94 20160403 0-99 mg/dL ----VLDL Cholesterol [place] 53 20160403 5-40 mg/dL H ----HDL Cholesterol 48 20160403 >39 mg/dL ----Triglycerides 266 20160403 0-149 mg/dL H ----Cholesterol, Total 195 72337132 100-199 mg/dL CMP ----Creatinine, Serum 0.64 20160403 0.57-1.00 mg/dL ----BUN 14 20160403 8-27 mg/dL ----eGFR If Africn Am 99 28108384 >59 mL/min/1.73 ----eGFR If NonAfricn Am 86 38167941 >59 mL/min/1.73 ----Sodium, Serum 145 20160403 134-144 mmol/L H ----BUN/Creatinine Ratio 22 20160403 11-26 ----Chloride, Serum 100 32346477 97-108 mmol/L ----Potassium, Serum 3.3 00780582 3.5-5.2 mmol/L L ----Carbon Dioxide, Total 26 20160403 18-29 mmol/L ----Protein, Total, Serum 6.9 79067903 6.0-8.5 g/dL ----Calcium, Serum 9.7 11782056 8.7-10.3 mg/dL ----Globulin, Total 2.5 51160412 1.5-4.5 g/dL ----Albumin, Serum 4.4 69212535 3.5-4.8 g/dL ----Bilirubin, Total 0.5 92674075 0.0-1.2 mg/dL ----Glucose, Serum 169 56805305 65-99 mg/dL H ----A/G Ratio 1.8 20160403 1.1-2.5 ----ALT (SGPT) 5 20160403 0-32 IU/L ----Alkaline Phosphatase, S 51 20160403 39-117 IU/L ----AST (SGOT) 14 20160403 0-40 IU/L Summary Purpose eClinicalWorks Submission
--- OUTSIDE RECORDS SUMMARY | 2017-01-01 17:08 | XMS REPORT ---
Author Author JUNE GOLDMAN Organization eClinical[employer] Address Unknown Phone Unavailable Care Team Providers Care Complex Care Nurse Practitioner Name Role Phone JUNE GOLDMAN CP Unavailable Allergies No Known Allergies Problems Problem Type Condition Code Onset Dates Condition Status Problem Other dyspnea and respiratory abnormalities 786.09 Active Problem Need for prophylactic vaccination and inoculation, Influenza V04.81 Active Problem Unspecified intracranial hemorrhage 432.9 Active Problem Adjustment disorder with depressed mood 309.0 Active Problem Other specified cardiac dysrhythmias 427.89 Active Medications No Known Medications Results No Known Results Summary Purpose eClinicalWorks Submission
--- OUTSIDE RECORDS SUMMARY | 2017-01-01 17:08 | XMS REPORT ---
Author Author OMI SIMMONS [facility] eClinicalWorks Address Unknown Phone Unavailable Care Team Providers Care Manager Of Sustainability Name Role Phone OMI SIMMONS CP Unavailable Allergies, Adverse Reactions, Alerts Substance Reaction Event Type N.K.D.A. Info Not Available Non Drug Allergy Problems Problem Type Condition Code Onset Dates Condition Status Assessment Depression F32.9 Active Assessment Hypertension I10 Active Assessment Diabetes E11.9 Active Problem Diabetes E11.9 Active Problem Unspecified intracranial hemorrhage 432.9 Active Problem Hypertension I10 Active Problem Adjustment disorder with depressed mood 309.0 Active Problem Other specified cardiac dysrhythmias 427.89 Active Problem Other dyspnea and respiratory abnormalities 786.09 Active Problem Need for prophylactic vaccination and inoculation, Influenza V04.81 Active Medications Medication Code System Code Instructions Start Date End Date Status Dosage Toprol XL [facility] [address]-72 50 MG Once a day TAKE ONE TABLET BY MOUTH DAILY Glimepiride [facility] [address]-80 4 MG Orally Once a day January 02, 2015 1 tablet with breakfast or the first main meal of the day MetFORMIN HCl ER [facility] [address]-67 500 MG Orally 2 times a day Feb 26, 2015 2 tablet with evening meal Victoza [facility] [address]-48 18 MG/3ML Subcutaneous Once a day Feb 21, 2016 1.8 mg Lisinopril [facility] [address]-09 40 MG Orally Once a day from ER January 02, 2015 1 tablet Sertraline HCl [facility] [address]-27 50 MG Orally Once a day December 19, 2014 1 tablet Invokana [facility] [address]-25 100 MG Orally Once a day January 24, 2015 Aug 22, 2015 1 tablet Procedures Procedure Coding System Code Date Office Visit, Est Pt., Level 3 CPT-4 01511 May 15, 2015 [facility] VISIT ESTABLISHED PATIENT CPT-4 G0467 May 15, 2015 Vital Signs Date/Time: May 15, 2015 Temperature 97.3 F Weight 176 lbs Height 62 in BMI 32.19 Index Blood Pressure Diastolic 80 mmHg Blood Pressure Systolic 140 mmHg Cardiac Monitoring Heart Rate 64 bpm Results No Known Results Summary Purpose eClinicalWorks Submission
--- OUTSIDE RECORDS SUMMARY | 2017-01-01 17:08 | XMS REPORT ---
Author Author JUNE GOLDMAN Organization eClinical[employer] Address Unknown Phone Unavailable Care Team Providers Care Child Care Provider Name Role Phone JUNE GOLDMAN CP Unavailable [...] Instructions Start Date End Date Status Dosage Test strips NDC 0 Test Strips ICD10- E11.9 2 times a day October 25, 2015 test blood sugar Results No Known Results Summary Purpose eClinicalWorks Submission
--- OUTSIDE RECORDS SUMMARY | 2017-01-01 17:08 | XMS REPORT ---
Author Author JUNE GOLDMAN Organization eClinicalWorks Address Unknown Phone Unavailable Care Team Providers Care Baby Formula Worker Name Role Phone JUNE GOLDMAN CP [...] Instructions Start Date End Date Status Dosage NovoLog [facility] [address]-85 100 UNIT/ML Subcutaneous AC 5 units Results No Known Results Summary Purpose eClinicalWorks Submission
--- OUTSIDE RECORDS SUMMARY | 2017-01-01 17:08 | XMS REPORT ---
Author Author JUNE GOLDMAN Organization eClinicalWorks Address Unknown Phone Unavailable Care Team Providers Care Microeconomics Professor Name Role Phone JUNE GOLDMAN CP Unavailable Allergies No Known Allergies Problems Problem Type Condition Code Onset Dates Condition Status Problem Dementia F03.90 Active Problem Other chronic pain G89.29 Active Problem Panic attack F41.0 Active Problem Fatigue, unspecified type R53.83 Active Problem Falling episodes R29.6 Active Problem Weakness R53.1 Active Problem Anxiety F41.9 Active Problem Pain in left knee M25.562 Active Problem Neuropathy G62.9 Active Problem Constipation, unspecified constipation type K59.00 Active Problem Hearing loss of aging, bilateral H91.13 Active Problem Eye exam abnormal R93.8 Active Assessment Hypokalemia E87.6 Active Problem Diabetes E11.9 Active Problem Hypertension I10 Active Problem CVA (cerebral vascular accident) I63.9 Active Problem Major depressive disorder, single episode, moderate F32.1 Active Problem History of arthroplasty of left knee Z96.652 Active Problem Anxiety disorder, unspecified F41.9 Active Medications Medication Code System Code Instructions Start Date End Date Status Dosage Levothyroxine Sodium [facility] [address]-89 25 MCG Orally Once a day Apr 22, 2016 1 tablet on an empty stomach in the morning Potassium Chloride [facility] [address]-57 20 MEQ Orally Once a day Apr 22, 2016 Jul 21, 2016 1 packet with food Results No Known Results Summary Purpose eClinicalWorks Submission
--- OUTSIDE RECORDS SUMMARY | 2017-01-01 17:08 | XMS REPORT ---
Author Author JUNE GOLDMAN Organization eClinicalWorks Address Unknown Phone Unavailable Care Team Providers Care Central Office Installer Name Role Phone JUNE GOLDMAN CP Unavailable Allergies No Known Allergies Problems Problem Type Condition Code Onset Dates Condition Status Problem Panic attack F41.0 Active Problem Pain in left knee M25.562 Active Problem Other chronic pain G89.29 Active Problem Weakness R53.1 Active Problem Fatigue, unspecified type R53.83 Active Problem Left hand weakness M62.81 Active Problem Constipation, unspecified constipation type K59.00 Active Problem Anxiety F41.9 Active Problem Falling episodes R29.6 Active Problem Neuropathy G62.9 Active Problem Eye exam abnormal R93.8 Active Problem CVA (cerebral vascular accident) I63.9 Active Assessment Hypokalemia E87.6 Active Problem Hearing loss of aging, bilateral H91.13 Active Problem Hypertension I10 Active Problem Major depressive disorder, single episode, moderate F32.1 Active Problem History of arthroplasty of left knee Z96.652 Active Problem Anxiety disorder, unspecified F41.9 Active Problem Diabetes E11.9 Active Problem Dementia F03.90 Active Medications No Known Medications Procedures Procedure Coding System Code Date VENIPUNCT, ROUTINE* CPT-4 85015 Apr 29, 2016 [facility] NOBLL Apr 29, 2016 Results Name Result Date Reference Range Unit Abnormality Flag ROUTINE VENIPUNCTURE Summary Purpose eClinicalWorks Submission
--- OUTSIDE RECORDS SUMMARY | 2017-01-01 17:08 | XMS REPORT ---
Author Author JUNE GOLDMAN Organization eClinicalWorks Address Unknown Phone Unavailable Care Team Providers Care Picking Belt Operator Name Role Phone JUNE GOLDMAN CP [...]
--- OUTSIDE RECORDS SUMMARY | 2017-01-01 17:08 | XMS REPORT ---
Author Author JUNE GOLDMAN Organization eClinicalWorks Address Unknown Phone Unavailable Care Team Providers Care Shingle Weaver Name Role Phone JUNE GOLDMAN CP Unavailable [...] Instructions Start Date End Date Status Dosage Lisinopril [facility] [address]-53 40 MG Orally Once a day from ER January 02, 2015 1 tablet Results No Known Results Summary Purpose eClinicalWorks Submission
--- OUTSIDE RECORDS SUMMARY | 2017-01-01 17:08 | XMS REPORT ---
Author Author JUNE GOLDMAN Organization eClinicalWorks Address Unknown Phone Unavailable Care Team Providers Care Crowning Inspector Name Role Phone JUNE GOLDMAN CP Unavailable [...] disorder with depressed mood 309.0 Active Medications No Known Medications Results No Known Results Summary Purpose eClinicalWorks Submission
--- OUTSIDE RECORDS SUMMARY | 2017-01-01 17:10 | XMS REPORT ---
Author Author JUNE GOLDMAN Organization eClinicalWorks Address Unknown Phone Unavailable Care Team Providers Care Sole Conforming Machine Operator Name Role Phone JUNE GOLDMAN CP [...] hemorrhage 432.9 Active Medications No Known Medications Results No Known Results Summary Purpose eClinicalWorks Submission
--- OUTSIDE RECORDS SUMMARY | 2017-01-01 17:10 | XMS REPORT ---
Author Author JUNE GOLDMAN [facility] eClinicalWorks Address Unknown Phone Unavailable Care Team Providers Care High School Professional Name Role Phone JUNE GOLDMAN CP Unavailable Allergies, Adverse Reactions, Alerts Substance Reaction Event Type N.K.D.A. Info Not Available Non Drug Allergy Problems Problem Type Condition Code Onset Dates Condition Status Problem Other specified cardiac dysrhythmias 427.89 Active Assessment Bakers cyst 727.51 Active Problem Diabetes 250.00 Active Problem Unspecified intracranial hemorrhage 432.9 Active Problem Hypertension 401.9 Active Problem Candidiasis of vulva and vagina 112.1 Active Problem Adjustment disorder with depressed mood 309.0 Active Problem Other dyspnea and respiratory abnormalities 786.09 Active Problem Need for prophylactic vaccination and inoculation, Influenza V04.81 Active Medications Medication Code System Code Instructions Start Date End Date Status Dosage Lisinopril [facility] [address]-35 20 MG Orally Once a day January 02, 2015 1 tablet Glimepiride [facility] [address]-02 4 MG Orally Once a day January 02, 2015 1 tablet with breakfast or the first main meal of the day Toprol XL [facility] [address]-94 50 MG Once a day TAKE ONE TABLET BY MOUTH DAILY Hydrocodone-Acetaminophen [facility] [address]-79 10-325 MG Orally every 6 hrs 1 tablet as needed Invokana [facility] [address]-17 100 MG Orally Once a day January 24, 2015 Aug 22, 2015 1 tablet MetFORMIN HCl ER [facility] [address]-52 500 MG Orally 2 times a day Feb 26, 2015 2 tablet with evening meal Sertraline HCl [facility] [address]-25 50 MG Orally Once a day December 19, 2014 1 tablet Victoza [facility] [address]-17 18 MG/3ML Subcutaneous Once a day Feb 21, 2016 1.8 mg Procedures Procedure Coding System Code Date Office Visit, Est Pt., Level 3 CPT-4 84587 Apr 10, 2015 [facility] VISIT ESTABLISHED PATIENT CPT-4 G0467 Apr 10, 2015 Vital Signs Date/Time: Apr 10, 2015 Temperature 97.0 F Weight 184.0 lbs Height 62 in BMI 33.65 Index Blood Pressure Diastolic 80 mmHg Blood Pressure Systolic 160 mmHg Cardiac Monitoring Heart Rate 82 bpm Results No Known Results Summary Purpose eClinicalWorks Submission
--- OUTSIDE RECORDS SUMMARY | 2017-01-01 17:10 | XMS REPORT | Continuity of Care Document ---
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 MD Ot R82.99 OTHER ABNORMAL FINDINGS IN URINE 10/30/2015 DANTE CORTÉS MD Ot Z01.812 ENCOUNTER FOR PREPROCEDURAL LABORATORY E 10/30/2015 DANTE CORTÉS MD Ot Z11.2 ENCOUNTER FOR SCREENING FOR OTHER BACTER 10/30/2015 CARLY TALLEY MD Ot E11.9 TYPE 2 DIABETES MELLITUS WITHOUT COMPLIC 10/30/2015 CARLY TALLEY MD, Ot I10 ESSENTIAL (PRIMARY) HYPERTENSION 10/30/2015 CARLY TALLEY MD Ot I25.10 ATHSCL HEART DISEASE OF [place] CORONARY 10/30/2015 CARLY TALLEY MD Ot I51.7 CARDIOMEGALY 10/30/2015 CARLY TALLEY MD Ot I63.9 CEREBRAL INFARCTION, UNSPECIFIED 10/30/2015 CALRY TALLEY MD Ot Z79.4 FPC (CURRENT) USE OF INSULIN 10/30/2015 JUNE GOLDMAN Ot I69.351 HEMIPLGA FOLLOWING CEREBRAL INFRC AFF RI 10/30/2015 JUNE GOLDMAN Ot Z47.1 AFTERCARE FOLLOWING JOINT REPLACEMENT BUTLER 10/30/2015 JUNE GOLDMAN Ot Z96.652 PRESENCE OF LEFT ARTIFICIAL KNEE JOINT 10/30/2015 CARLY TALLEY MD Ot E11.9 TYPE 2 DIABETES MELLITUS WITHOUT COMPLIC 10/30/2015 CARLY TALLEY MD Ot I10 ESSENTIAL (PRIMARY) HYPERTENSION 10/30/2015 CARLY TALLEY MD Ot I25.10 ATHSCL HEART DISEASE OF [place] CORONARY 10/30/2015 CARLY TALLEY MD Ot I51.7 CARDIOMEGALY 10/30/2015 CARLY TALLEY MD Ot I63.9 CEREBRAL INFARCTION, UNSPECIFIED 10/30/2015 CARLY TALLEY MD Ot Z79.4 FPC (CURRENT) USE OF INSULIN 10/30/2015 JUNE GOLDMAN YARDMASTER Ot I69.351 HEMIPLGA FOLLOWING CEREBRAL INFRC AFF RI 10/30/2015 JUNE GOLDMAN YARDMASTER Ot Z47.1 AFTERCARE FOLLOWING JOINT REPLACEMENT BUTLER 10/30/2015 JUNE GOLDMAN YARDMASTER Ot Z96.652 PRESENCE OF LEFT ARTIFICIAL KNEE JOINT 11/02/2015 JUNE GOLDMAN YARDMASTER Ot I69.351 HEMIPLGA FOLLOWING CEREBRAL INFRC AFF RI 11/02/2015 JUNE GOLDMAN YARDMASTER Ot Z47.1 AFTERCARE FOLLOWING JOINT REPLACEMENT BUTLER 11/02/2015 JUNE GOLDMAN YARDMASTER Ot Z96.652 PRESENCE OF LEFT ARTIFICIAL KNEE JOINT 11/07/2015 VEENA SWARTZ, JESSICA Vega Ot R60.0 LOCALIZED EDEMA 11/08/2015 JUSTYN SWARTZ FACC, ANA FACP CCDS Ot E11.9 TYPE 2 DIABETES MELLITUS WITHOUT COMPLIC 11/08/2015 JUSTYN SWARTZ FACC, ALI FACP CCDS Ot I10 ESSENTIAL (PRIMARY) HYPERTENSION 11/08/2015 JUSTYN SWARTZ FACC, ANA FACP CCDS Ot I25.10 ATHSCL HEART DISEASE OF [place] CORONARY 11/08/2015 JUSTYN SWARTZ FACC, ANA FACP CCDS Ot R06.02 SHORTNESS OF BREATH 11/08/2015 JUSTYN SWARTZ FACC, ANA FACP CCDS Ot R07.89 OTHER CHEST PAIN 11/08/2015 JUSTYN SWARTZ FACC, ALI FACP CCDS Ot I10 ESSENTIAL (PRIMARY) HYPERTENSION 11/08/2015 JUSTYN SWARTZ FACC, ANA FACP CCDS Ot I11.9 HYPERTENSIVE HEART DISEASE WITHOUT HEART 11/08/2015 JUSTYN SWARTZ FACC, ALI FACP CCDS Ot I25.10 ATHSCL HEART DISEASE OF [place] CORONARY 11/08/2015 JUSTYN SWARTZ FACC, ANA MARCOSP CCDS Ot R06.02 SHORTNESS OF BREATH 11/08/2015 JUSTYN SWARTZ FACC, ANA AVALOS CCDS Ot R07.89 OTHER CHEST PAIN 11/08/2015 DANTE CORTÉS MD Ot M17.12 UNILATERAL PRIMARY OSTEOARTHRITIS, LEFT 11/08/2015 DANTE CORTÉS MD Ot R53.83 OTHER FATIGUE 11/08/2015 DANTE CORTÉS MD Ot R82.99 OTHER ABNORMAL FINDINGS IN URINE 11/08/2015 DANTE CORTÉS MD Ot Z01.812 ENCOUNTER FOR PREPROCEDURAL LABORATORY E 11/08/2015 DANTE CORTÉS MD Ot Z11.2 ENCOUNTER FOR SCREENING FOR OTHER BACTER 11/28/2015 VEENA SWARTZ, JESSICA Vega Ot R60.0 LOCALIZED EDEMA 11/29/2015 Ot 414.00 CORON ATHEROSCLER NOS TYPE VESSEL, NATIV 11/29/2015 Ot V45.82 PERCUTANEOUS TRANSLUM CORON ANGIOPLASTY 11/29/2015 Ot 414.01 CORONARY ATHEROSCLEROSIS OF [place] CORON 11/29/2015 Ot 785.0 TACHYCARDIA NOS 11/29/2015 Ot 786.50 CHEST PAIN NOS 11/29/2015 Ot V45.82 PERCUTANEOUS TRANSLUM CORON ANGIOPLASTY 11/29/2015 Ot V58.63 LONG-TERM(CURRENT)USE OF ANTIPLATELET/AN 11/29/2015 Ot V58.69 OTH MED,LT,CURRENT USE 11/29/2015 BAIMA, BLANK L YARDMASTER Ot 782.3 EDEMA 11/29/2015 BAIMA, BLANK L YARDMASTER Ot 786.09 RESPIRATORY ABNORM NEC 11/29/2015 BAIMA, BLANK L YARDMASTER Ot 786.59 CHEST PAIN NEC 11/29/2015 BAIMA, BLANK L YARDMASTER Ot 782.3 EDEMA 11/29/2015 BAIMA, BLANK L YARDMASTER Ot 786.09 RESPIRATORY ABNORM NEC 11/29/2015 BAIMA, BLANK L YARDMASTER Ot 786.59 CHEST PAIN NEC 11/29/2015 JUSTYN SWARTZ FACC, ANA AVALOS CCDS Ot E11.9 TYPE 2 DIABETES MELLITUS WITHOUT COMPLIC 11/29/2015 JUSTYN SWARTZ FACC, ANA MARCOSP CCDS Ot I10 ESSENTIAL (PRIMARY) HYPERTENSION 11/29/2015 JUSTYN SWARTZ FACC, ANA MARCOSP CCDS Ot I25.10 ATHSCL HEART DISEASE OF [place] CORONARY 11/29/2015 JUSTYN SWARTZ [facility], ALI FACP CCDS Ot R06.02 SHORTNESS OF BREATH 11/29/2015 JUSTYN SWARTZ [facility], ALI FACP CCDS Ot R07.89 OTHER CHEST PAIN 11/29/2015 JUSTYN SWARTZ [facility], ALI FACP CCDS Ot I10 ESSENTIAL (PRIMARY) HYPERTENSION 11/29/2015 JUSTYN SWARTZ [facility], ALI FACP CCDS Ot I11.9 HYPERTENSIVE HEART DISEASE WITHOUT HEART 11/29/2015 JUSTYN SWARTZ [facility], ALI FACP CCDS Ot I25.10 ATHSCL HEART DISEASE OF [place] CORONARY 11/29/2015 JUSTYN SWARTZ [facility], ALI FACP CCDS Ot R06.02 SHORTNESS OF BREATH 11/29/2015 JUSTYN SWARTZ [facility], ALI FACP CCDS Ot R07.89 OTHER CHEST PAIN 11/29/2015 DANTE CORTÉS MD Ot M17.12 UNILATERAL PRIMARY OSTEOARTHRITIS, LEFT 11/29/2015 DANTE CORTÉS MD Ot R53.83 OTHER FATIGUE 11/29/2015 DANTE CORTÉS MD Ot R82.99 OTHER ABNORMAL FINDINGS IN URINE 11/29/2015 DANTE CORTÉS MD Ot Z01.812 ENCOUNTER FOR PREPROCEDURAL LABORATORY E 11/29/2015 DANTE CORTÉS MD Ot Z11.2 ENCOUNTER FOR SCREENING FOR OTHER BACTER 11/29/2015 CARLY TALLEY MD Ot E11.9 TYPE 2 DIABETES MELLITUS WITHOUT COMPLIC 11/29/2015 CARLY TALLEY MD Ot I10 ESSENTIAL (PRIMARY) HYPERTENSION 11/29/2015 CARLY TALLEY MD Ot I25.10 ATHSCL HEART DISEASE OF [place] CORONARY 11/29/2015 CARLY TALLEY MD Ot I51.7 CARDIOMEGALY 11/29/2015 CARLY TALLEY MD Ot I63.9 CEREBRAL INFARCTION, UNSPECIFIED 11/29/2015 CARLY TALLEY MD, Ot Z79.4 FPC (CURRENT) USE OF INSULIN 11/29/2015 JUNE GOLDMAN Ot I69.351 HEMIPLGA FOLLOWING CEREBRAL INFRC AFF RI 11/29/2015 JUNE GOLDMAN Ot Z47.1 AFTERCARE FOLLOWING JOINT REPLACEMENT BUTLER 11/29/2015 SUSI, JUNE YARDMASTER Ot Z96.652 PRESENCE OF LEFT ARTIFICIAL KNEE JOINT 11/29/2015 JESSICA CURIEL MD Ot R60.0 LOCALIZED EDEMA 12/03/2015 SUSIELEANORJUNE YARDMASTER Ot I69.351 HEMIPLGA FOLLOWING CEREBRAL INFRC AFF RI 12/03/2015 SUSIELEANORJUNE YARDMASTER Ot Z47.1 AFTERCARE FOLLOWING JOINT REPLACEMENT BUTLRE 12/03/2015 SUSI JUNE YARDMASTER Ot Z96.652 PRESENCE OF LEFT ARTIFICIAL KNEE JOINT 12/13/2015 SUSIELEANORJUNE YARDMASTER Ot I69.351 HEMIPLGA FOLLOWING CEREBRAL INFRC AFF RI 12/13/2015 JUNE GOLDMANP Ot Z47.1 AFTERCARE FOLLOWING JOINT REPLACEMENT BUTLER 12/13/2015 GABI GOLDMANA YARDMASTER Ot Z96.652 PRESENCE OF LEFT ARTIFICIAL KNEE JOINT 01/10/2016 Ot 414.00 CORON ATHEROSCLER NOS TYPE VESSEL, NATIV 01/10/2016 Ot V45.82 PERCUTANEOUS TRANSLUM CORON ANGIOPLASTY 01/10/2016 Ot 414.01 CORONARY ATHEROSCLEROSIS OF [place] CORON 01/10/2016 Ot 785.0 TACHYCARDIA NOS 01/10/2016 Ot 786.50 CHEST PAIN NOS 01/10/2016 Ot V45.82 PERCUTANEOUS TRANSLUM CORON ANGIOPLASTY 01/10/2016 Ot V58.63 LONG-TERM(CURRENT)USE OF ANTIPLATELET/AN 01/10/2016 Ot V58.69 OTH MED,LT,CURRENT USE 01/10/2016 BAIMA, BLANK L YARDMASTER Ot 782.3 EDEMA 01/10/2016 BAIMA, BLANK L YARDMASTER Ot 786.09 RESPIRATORY ABNORM NEC 01/10/2016 BAIMA, BLANK L YARDMASTER Ot 786.59 CHEST PAIN NEC 01/10/2016 BAIMA, BLANK L YARDMASTER Ot 782.3 EDEMA 01/10/2016 BAIMA, BLANK L YARDMASTER Ot 786.09 RESPIRATORY ABNORM NEC 01/10/2016 BAIMA, BLANK L YARDMASTER Ot 786.59 CHEST PAIN NEC 01/10/2016 JUSTYN SWARTZ FACC, ANA AVALOS CCDS Ot E11.9 TYPE 2 DIABETES MELLITUS WITHOUT COMPLIC 01/10/2016 JUSTYN SWARTZ FACC, ANA AVALOS CCDS Ot I10 ESSENTIAL (PRIMARY) HYPERTENSION 01/10/2016 JUSTYN SWARTZ FACC, ALI FACP CCDS Ot I25.10 ATHSCL HEART DISEASE OF [place] CORONARY 01/10/2016 JUSTYN SWARTZ [facility], ALI FACP CCDS Ot R06.02 SHORTNESS OF BREATH 01/10/2016 JUSTYN SWARTZ [facility], ALI FACP CCDS Ot R07.89 OTHER CHEST PAIN 01/10/2016 JUSTYN SWARTZ [facility], ALI FACP CCDS Ot I10 ESSENTIAL (PRIMARY) HYPERTENSION 01/10/2016 JUSTYN SWARTZ [facility], ALI FACP CCDS Ot I11.9 HYPERTENSIVE HEART DISEASE WITHOUT HEART 01/10/2016 JUSTYN SWARTZ [facility], ALI FACP CCDS Ot I25.10 ATHSCL HEART DISEASE OF [place] CORONARY 01/10/2016 JUSTYN SWARTZ [facility], ALI FACP CCDS Ot R06.02 SHORTNESS OF BREATH 01/10/2016 JUSTYN SWARTZ [facility], ALI FACP CCDS Ot R07.89 OTHER CHEST PAIN 01/10/2016 DANTE CORTÉS MD Ot M17.12 UNILATERAL PRIMARY OSTEOARTHRITIS, LEFT 01/10/2016 DANTE CORTÉS MD Ot R53.83 OTHER FATIGUE 01/10/2016 DANTE CORTÉS MD Ot R82.99 OTHER ABNORMAL FINDINGS IN URINE 01/10/2016 DATNE CORTÉS MD Ot Z01.812 ENCOUNTER FOR PREPROCEDURAL LABORATORY E 01/10/2016 DANTE CORTÉS MD Ot Z11.2 ENCOUNTER FOR SCREENING FOR OTHER BACTER 01/10/2016 JESSICA CURIEL MD Ot R60.0 LOCALIZED EDEMA 01/17/2016 CY WELCH MD Ot E11.9 TYPE 2 DIABETES MELLITUS WITHOUT COMPLIC 01/17/2016 CY WELCH MD Ot E78.5 HYPERLIPIDEMIA, UNSPECIFIED 01/17/2016 CY WELCH MD Ot I10 ESSENTIAL (PRIMARY) HYPERTENSION 01/17/2016 CY WELCH MD Ot I25.10 ATHSCL HEART DISEASE OF [place] CORONARY 01/17/2016 CY WELCH MD Ot I69.354 HEMIPLGA FOLLOWING CEREBRAL INFRC AFFECT 01/17/2016 CY WELCH MD Ot I95.9 HYPOTENSION, UNSPECIFIED 01/17/2016 CY WELCH MD Ot R79.1 ABNORMAL COAGULATION PROFILE 01/17/2016 CY WELCH MD Ot 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.4 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 01/17/2016 REBEKAH SWARTZ, CY Gaytan Ot Z95.5 PRESENCE OF CORONARY ANGIOPLASTY IMPLANT 06/11/2016 BLANK LUU YARDMASTER Ot 782.3 EDEMA 06/11/2016 BLANK LUU L YARDMASTER Ot 786.09 RESPIRATORY ABNORM NEC 06/11/2016 BLANK LUU L YARDMASTER Ot 786.59 CHEST PAIN NEC 06/11/2016 BLANK LUU L YARDMASTER Ot 782.3 EDEMA 06/11/2016 BLANK LUU YARDMASTER Ot 786.09 RESPIRATORY ABNORM NEC 06/11/2016 BLANK LUU YARDMASTER Ot 786.59 CHEST PAIN NEC 06/11/2016 JUSTYN SWARTZ FACC, ALI FACP CCDS Ot E11.9 TYPE 2 DIABETES MELLITUS WITHOUT COMPLIC 06/11/2016 JUSTYN MARCOSC, ALI FACP CCDS Ot I10 ESSENTIAL (PRIMARY) HYPERTENSION 06/11/2016 JUSTYN MARCOSC, ALI FACP CCDS Ot I25.10 ATHSCL HEART DISEASE OF [place] CORONARY 06/11/2016 JUSTYN SWARTZ FACC, ALI FACP CCDS Ot R06.02 SHORTNESS OF BREATH 06/11/2016 JUSTYN SWARTZ FACC, ALI FACP CCDS Ot R07.89 OTHER CHEST PAIN 06/11/2016 JUSTYN MARCOSC, ALI FACP CCDS Ot I10 ESSENTIAL (PRIMARY) HYPERTENSION 06/11/2016 JUSTYN MARCOSC, ALI FACP CCDS Ot I11.9 HYPERTENSIVE HEART DISEASE WITHOUT HEART 06/11/2016 JUSTYN SWARTZ FACC, ALI FACP CCDS Ot I25.10 ATHSCL HEART DISEASE OF [place] CORONARY 06/11/2016 JUSTYN MARCOSC, ALI FACP CCDS Ot R06.02 SHORTNESS OF BREATH 06/11/2016 JUSTYN MARCOSC, ALI FACP CCDS Ot R07.89 OTHER CHEST PAIN 06/11/2016 DANTE CORTÉS MD Ot M17.12 UNILATERAL PRIMARY OSTEOARTHRITIS, LEFT 06/11/2016 DANTE CORTÉS MD Ot R53.83 OTHER FATIGUE 06/11/2016 DANTE CORTÉS MD Ot R82.99 OTHER ABNORMAL FINDINGS IN URINE 06/11/2016 DANTE CORTÉS MD, Ot Z01.812 ENCOUNTER FOR PREPROCEDURAL LABORATORY E 06/11/2016 MOO SWARTZ, DANTE Cerda Ot Z11.2 ENCOUNTER FOR SCREENING FOR OTHER BACTER 06/11/2016 VEENA SWARTZ, JESSICA Vega Ot R60.0 LOCALIZED EDEMA 08/13/2016 KISHAN BLACK Ot B37.49 OTHER UROGENITAL CANDIDIASIS 08/13/2016 KISHAN BLACK Ot E11.9 TYPE 2 DIABETES MELLITUS WITHOUT COMPLIC 08/13/2016 KISHAN BLACK Ot I10 ESSENTIAL (PRIMARY) HYPERTENSION 08/13/2016 KISHAN BLACK Ot I25.10 ATHSCL HEART DISEASE OF [place] CORONARY 08/13/2016 KISHAN BLACK Ot R21 RASH AND OTHER NONSPECIFIC SKIN ERUPTION 08/13/2016 KISHAN BLACK Ot Z79.4 ASSISTANT 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 08/13/2016 KISHAN BLACK Ot Z79.84 ASSISTANT SPA DIRECTOR (CURRENT) USE OF ORAL HYPOGLYC 08/13/2016 KISHAN BLACK Ot Z79.899 OTHER FPC (CURRENT) DRUG THERAPY 08/13/2016 KISHAN BLACK Ot Z95.5 PRESENCE OF CORONARY ANGIOPLASTY IMPLANT 08/13/2016 BAIMA, BLANK L YARDMASTER Ot 782.3 EDEMA 08/13/2016 BAIMA, BLANK L YARDMASTER Ot 786.09 RESPIRATORY ABNORM NEC 08/13/2016 BAIMA, BLANK L YARDMASTER Ot 786.59 CHEST PAIN NEC 08/13/2016 BAIMA, BLANK L YARDMASTER Ot 782.3 EDEMA 08/13/2016 BAIMA, BLANK L YARDMASTER Ot 786.09 RESPIRATORY ABNORM NEC 08/13/2016 BAIMA, BLANK L YARDMASTER Ot 786.59 CHEST PAIN NEC 08/13/2016 JUSTYN SWARTZ FACC, ANA MARCOSP CCDS Ot E11.9 TYPE 2 DIABETES MELLITUS WITHOUT COMPLIC 08/13/2016 JUSTYN SWARTZ FACC, ANA MARCOSP CCDS Ot I10 ESSENTIAL (PRIMARY) HYPERTENSION 08/13/2016 JUSTYN SWARTZ FACC, ANA MARCOSP CCDS Ot I25.10 ATHSCL HEART DISEASE OF [place] CORONARY 08/13/2016 JUSTYN SWARTZ FACC, ANA MARCOSP CCDS Ot R06.02 SHORTNESS OF BREATH 08/13/2016 JUSTYN SWARTZ FACC, ANA FACP CCDS Ot R07.89 OTHER CHEST PAIN 08/13/2016 JUSYTN SWARTZ [facility], ALI FACP CCDS Ot I10 ESSENTIAL (PRIMARY) HYPERTENSION 08/13/2016 JUSTYN SWARTZ [facility], ALI FACP CCDS Ot I11.9 HYPERTENSIVE HEART DISEASE WITHOUT HEART 08/13/2016 JUSTYN SWARTZ [facility], ALI FACP CCDS Ot I25.10 ATHSCL HEART DISEASE OF [place] CORONARY 08/13/2016 JUSTYN SWARTZ [facility], ALI FACP CCDS Ot R06.02 SHORTNESS OF BREATH 08/13/2016 JUSTYN SWARTZ [facility], ALI FACP CCDS Ot R07.89 OTHER CHEST PAIN 08/13/2016 DANTE CORTÉS MD Ot M17.12 UNILATERAL PRIMARY OSTEOARTHRITIS, LEFT 08/13/2016 DANTE CORTÉS MD Ot R53.83 OTHER FATIGUE 08/13/2016 DANTE CORTÉS MD Ot R82.99 OTHER ABNORMAL FINDINGS IN URINE 08/13/2016 DANTE CORTÉS MD Ot Z01.812 ENCOUNTER FOR PREPROCEDURAL LABORATORY E 08/13/2016 DANTE CORTÉS MD Ot Z11.2 ENCOUNTER FOR SCREENING FOR OTHER BACTER 08/13/2016 JESSICA CURIEL MD Ot R60.0 LOCALIZED EDEMA 08/14/2016 KISHAN BLACK Ot B37.49 OTHER UROGENITAL CANDIDIASIS 08/14/2016 KISHAN BLACK Ot E11.9 TYPE 2 DIABETES MELLITUS WITHOUT COMPLIC 08/14/2016 KISHAN BLACK Ot I10 ESSENTIAL (PRIMARY) HYPERTENSION 08/14/2016 KISHAN BLACK Ot I25.10 ATHSCL HEART DISEASE OF [place] CORONARY 08/14/2016 KISHAN BLACK Ot R21 RASH AND OTHER NONSPECIFIC SKIN ERUPTION 08/14/2016 KISHAN BLACK Ot Z79.4 FPC (CURRENT) USE OF INSULIN 08/14/2016 KISHAN BLACK Ot Z79.84 ASSISTANT SPA DIRECTOR (CURRENT) USE OF ORAL HYPOGLYC 08/14/2016 KISHAN BLACK Ot Z79.899 OTHER ASSISTANT SPA DIRECTOR (CURRENT) DRUG THERAPY 08/14/2016 KISHAN BLACK Ot Z95.5 PRESENCE OF CORONARY ANGIOPLASTY IMPLANT 09/10/2016 DESTIN MENG MD Ot B02.9 ZOSTER WITHOUT COMPLICATIONS 09/10/2016 DESTIN MENG MD, Ot E11.65 TYPE 2 DIABETES MELLITUS WITH HYPERGLYCE 09/10/2016 DESTIN MENG MD, Ot I10 ESSENTIAL (PRIMARY) HYPERTENSION 09/10/2016 DESTIN MENG MD, Ot I25.10 ATHSCL HEART DISEASE OF [place] CORONARY 09/10/2016 DESTIN MENG MD, Ot M47.812 SPONDYLOSIS W/O MYELOPATHY OR RADICULOPA 09/10/2016 DESTIN MENG MD, Ot N39.0 URINARY TRACT INFECTION, SITE NOT SPECIF 09/10/2016 DESTIN MENG MD, Ot S09.90XA UNSPECIFIED INJURY OF HEAD, INITIAL ENCO 09/10/2016 DESTIN MENG MD, Ot W05.0XXA FALL FROM NON-MOVING WHEELCHAIR, INITIAL 09/10/2016 DESTIN MENG MD, Ot Y92.[address] [facility] NON[facility] ( PRIVATE 09/10/2016 DESTIN MENG MD, Ot Y99.8 OTHER EXTERNAL CAUSE STATUS 09/10/2016 DESTIN MENG MD, Ot Z79.4 FPC (CURRENT) USE OF INSULIN 09/10/2016 DESTIN MENG MD, Ot Z79.84 FPC (CURRENT) USE OF ORAL HYPOGLYC 09/10/2016 DESTIN MENG MD, Ot Z79.899 OTHER FPC (CURRENT) DRUG THERAPY 09/10/2016 DESTIN MENG MD, Ot Z95.5 PRESENCE OF CORONARY ANGIOPLASTY IMPLANT 09/11/2016 DESTIN MENG MD, Ot B02.9 ZOSTER WITHOUT COMPLICATIONS 09/11/2016 DESTIN MENG MD, Ot E11.65 TYPE 2 DIABETES MELLITUS WITH HYPERGLYCE 09/11/2016 DESTIN MENG MD, Ot I10 ESSENTIAL (PRIMARY) HYPERTENSION 09/11/2016 DESTIN MENG MD, Ot I25.10 ATHSCL HEART DISEASE OF [place] CORONARY 09/11/2016 DESTIN MENG MD, Ot M47.812 SPONDYLOSIS W/O MYELOPATHY OR RADICULOPA 09/11/2016 DESTIN MENG MD, Ot N39.0 URINARY TRACT INFECTION, SITE NOT SPECIF 09/11/2016 DESTIN MENG MD, Ot S09.90XA UNSPECIFIED INJURY OF HEAD, INITIAL ENCO 09/11/2016 DESTIN MENG MD, Ot W05.0XXA FALL FROM NON-MOVING WHEELCHAIR, INITIAL 09/11/2016 DESTIN MENG MD, Ot Y92.[address] [facility] NON[facility] ( PRIVATE 09/11/2016 DESTIN EMNG MD, Ot Y99.8 OTHER EXTERNAL CAUSE STATUS 09/11/2016 DESTIN EMNG MD, Ot Z79.4 ASSISTANT 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 09/11/2016 DESTIN MENG MD, Ot Z79.84 ASSISTANT SPA DIRECTOR (CURRENT) USE OF ORAL HYPOGLYC 09/11/2016 DESTIN MENG MD, Ot Z79.899 OTHER FPC (CURRENT) DRUG THERAPY 09/11/2016 DESTIN MENG MD, Ot Z95.5 PRESENCE OF CORONARY ANGIOPLASTY IMPLANT 09/16/2016 DESTIN MENG MD, Ot B02.9 ZOSTER WITHOUT COMPLICATIONS 09/16/2016 DESTIN MENG MD Ot E11.65 TYPE 2 DIABETES MELLITUS WITH HYPERGLYCE 09/16/2016 DESTIN MENG MD, Ot I10 ESSENTIAL (PRIMARY) HYPERTENSION 09/16/2016 DESTIN MENG MD, Ot I25.10 ATHSCL HEART DISEASE OF [place] CORONARY 09/16/2016 DESTIN MENG MD, Ot M47.812 SPONDYLOSIS W/O MYELOPATHY OR RADICULOPA 09/16/2016 DESTIN MENG MD, Ot N39.0 URINARY TRACT INFECTION, SITE NOT SPECIF 09/16/2016 DESTIN MENG MD, Ot S09.90XA UNSPECIFIED INJURY OF HEAD, INITIAL ENCO 09/16/2016 DESTIN MENG MD, Ot W05.0XXA FALL FROM NON-MOVING WHEELCHAIR, INITIAL 09/16/2016 DESTIN MENG MD Ot Y92.[address] [facility] NON[facility] ( PRIVATE 09/16/2016 DESTIN MENG MD, Ot Y99.8 OTHER EXTERNAL CAUSE STATUS 09/16/2016 DESTIN MENG MD, Ot Z79.4 ASSISTANT 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 09/16/2016 DESTIN MENG MD, Ot Z79.84 FPC (CURRENT) USE OF ORAL HYPOGLYC 09/16/2016 DESTIN MENG MD, Ot Z79.899 OTHER FPC (CURRENT) DRUG THERAPY 09/16/2016 DESTIN MENG MD, Ot Z95.5 PRESENCE OF CORONARY ANGIOPLASTY IMPLANT Procedures Code Description [place] [id number] ROUTINE VENIPUNCTURE 05/10/2012 83655 A1C (IN-HOUSE) 09694 EKG, TRACING (IN-HOUSE) 05/10/2012 09365 CMP 05/10/2012 31974 LIPID PANEL 05/10 [id number] GFR CALC (RESULT ONLY) 05/10/2012 09719 BNP 05/11/2012 36784 A1C (IN-HOUSE) 51928 MICRO ALBUMIN-IN HOUSE 07/20/2012 40078 A1C (IN-HOUSE) 44177 ROUTINE VENIPUNCTURE 01/27/2013 32887 CMP 01/27/2013 90213 LIPID PANEL 01/27 [id number] GFR CALC (RESULT ONLY) 01/27/2013 40657 A1C (IN-HOUSE) G0008 FLU ADMINISTRATION (MEDICARE ONLY) 04/28/2013 Cardiolog Ana Sosa 06/01/2013 01974 A1C (IN-HOUSE) 64029 MICRO ALBUMIN-IN HOUSE 09/15/2013 29889 MICROALBUMIN 12/2013 63717 A1C (IN-HOUSE) 88676 UA W/ CULTURE IF INDICATED 03/07/2014 [id number] REPLACE OF L KNEE JT WITH SYNTH SUB, MAUDE 07/25/2015 Results Test Result Range Complete urinalysis with reflex to culture - 09/10/16 15:14 Urine color determination YELLOW NRG Urine clarity determination SLIGHTLY CLOUDY NRG Urine pH measurement by test strip 5 5- 9 Specific gravity of urine by test strip 1.010 1.016-1.022 Urine protein assay by test strip, semi-quantitative 1+ NEGATIVE Urine glucose detection by automated test strip 4+ NEGATIVE Erythrocytes detection in urine sediment by light microscopy NEGATIVE NEGATIVE Urine ketones detection by automated test strip NEGATIVE NEGATIVE Urine nitrite detection by test strip NEGATIVE NEGATIVE Urine total bilirubin detection by test strip NEGATIVE NEGATIVE Urine urobilinogen measurement by automated test strip (mass/volume) NORMAL NORMAL Urine leukocyte esterase detection by dipstick 1+ NEGATIVE Automated urine sediment erythrocyte count by microscopy (number/high power field) NONE NRG Automated urine sediment leukocyte count by microscopy (number/high power field ) [HPF] NRG Bacteria detection in urine sediment by light microscopy FEW NRG Squamous epithelial cells detection in urine sediment by light microscopy 0-2 NRG Crystals detection in urine sediment by light microscopy NONE NRG Casts detection in urine sediment by light microscopy NONE NRG Mucus detection in urine sediment by light microscopy NEGATIVE NRG Complete urinalysis with reflex to culture YES NRG Amorphous sediment detection in urine sediment by light microscopy FEW XIOMARA URATES NRG Bacterial urine culture - 09/10/16 15:14 Bacterial urine culture [id number] NRG COLONY COUNT 10,000/ML - 100,000/ML NRG Complete blood count (CBC) with automated white blood cell (WBC) differential - 09/10/16 15:25 Blood leukocytes automated count (number/volume) 7.9 10*3/ uL 4.3-11.0 Blood erythrocytes automated count (number/volume) 4.84 10*6 /uL 4.35-5.85 Venous blood hemoglobin measurement (mass/volume) 13.7 g/dL 11.5-16.0 Blood hematocrit (volume fraction) 42 % 35-52 Automated erythrocyte mean corpuscular volume 86 [foz_us] 80-99 Automated erythrocyte mean corpuscular hemoglobin (mass per erythrocyte) 28 pg 25-34 Automated erythrocyte mean corpuscular hemoglobin concentration measurement ( mass/volume) 33 g/dL 32-36 Automated erythrocyte distribution width ratio 14.4 % 10.0-14.5 Automated blood platelet count (count/volume) 216 10*3/uL 130-400 Automated blood platelet mean volume measurement 9.6 [foz_us ] 7.4-10.4 Automated blood neutrophils/100 leukocytes 75 % 42-75 Automated blood lymphocytes/100 leukocytes 18 % 12-44 Blood monocytes/100 leukocytes 6 % 0-12 Automated blood eosinophils/100 leukocytes 1 % 0-10 Automated blood basophils/100 leukocytes 0 % 0-10 Blood neutrophils automated count (number/volume) 5.9 10*3 1.8-7.8 Blood lymphocytes automated count (number/volume) 1.4 10*3 1.0-4.0 Blood monocytes automated count (number/volume) 0.5 10*3 0.0-1.0 Automated eosinophil count 0.1 10*3/uL 0.0-0.3 Automated blood basophil count (count/volume) 0.0 10*3/uL 0.0-0.1 Comprehensive metabolic panel - 09/10/16 15:25 Serum or plasma sodium measurement (moles/volume) 141 mmol/ L 135-145 Serum or plasma potassium measurement (moles/volume) 4.8 mmol/L 3.6-5.0 Serum or plasma chloride measurement (moles/volume) 106 mmol /L 98-107 Carbon dioxide 23 mmol/L 21-32 Serum or plasma anion gap determination (moles/volume) 12 mmol/L 5-14 Serum or plasma urea nitrogen measurement (mass/volume) 13 mg/dL 7-18 Serum or plasma creatinine measurement (mass/volume) 0.86 mg /dL 0.60-1.30 Serum or plasma urea nitrogen/creatinine mass ratio 15 NRG Serum or plasma creatinine measurement with calculation of estimated glomerular filtration rate > NRG Serum or plasma glucose measurement (mass/volume) 406 mg/dL 70-105 Serum or plasma calcium measurement (mass/volume) 9.3 mg/dL 8.5-10.1 Serum or plasma total bilirubin measurement (mass/volume) 0.4 mg/dL 0.1-1.0 Serum or plasma alkaline phosphatase measurement (enzymatic activity/volume) 76 U/L 40-136 Serum or plasma aspartate aminotransferase measurement (enzymatic activity/ volume) 14 U/L 5-34 Serum or plasma alanine aminotransferase measurement (enzymatic activity/volume ) 16 U/L 0-55 Serum or plasma protein measurement (mass/volume) 6.7 g/dL 6.4-8.2 Serum or plasma albumin measurement (mass/volume) 3.8 g/dL 3.2-4.5 PT panel in platelet poor plasma by coagulation assay - 09/10/16 15:25 Prothrombin time (PT) in platelet poor plasma by coagulation assay 11.8 s 12.2-14.7 INR in platelet poor plasma or blood by coagulation assay 0.9 0.8-1.4 Activated partial thromboplastin time (aPTT) in platelet poor plasma bycoagulation assay - 09/10/16 15:25 Activated partial thromboplastin time (aPTT) in platelet poor plasma bycoagulation assay 26 s 24-35 Serum or plasma thyrotropin measurement by detection limit <=0.05 miu/l (units/ volume) - 09/10/16 15:25 Serum or plasma thyrotropin measurement by detection limit <=0.05 miu/l (units/ volume) 2.29 u[iU]/mL 0.35-4.94 Capillary blood glucose measurement by glucometer (mass/volume) - 09/10/16 17: 27 Capillary blood glucose measurement by glucometer (mass/volume) 177 mg/dL 70-110 Encounters ACCT No. Visit Date/Time Discharge Status Pt. Type Provider Facility Loc./Unit Complaint [id number] 03/07/2014 10:21:00 03/07/2014 23: 59:59 [facility] Outpatient BONILLA KIM DO [id number] 11/11/2013 13:32:00 11/11/2013 23: 59:59 CLS Outpatient BONILLA KIM DO [id number] 09/23/2013 14:21:00 09/23/2013 23: 59:59 CLS Outpatient OMI SIMMONS MD [id number] 09/15/2013 09:10:00 09/15/2013 23: 59:59 CLS Outpatient OMI SIMMONS MD [id number] 06/01/2013 08:49:00 06/01/2013 23: 59:59 CLS Outpatient BONILLA KIM DO [id number] 04/28/2013 09:16:00 04/28/2013 23: 59:59 CLS Outpatient OMI SIMMONS MD [id number] 01/26/2013 08:44:00 01/26/2013 23: 59:59 CLS Outpatient BONILLA KIM DO [id number] 07/20/2012 10:04:00 07/20/2012 23: 59:59 CLS Outpatient OMI SIMMONS MD [id number] 07/20/2012 10:04:00 07/20/2012 23: 59:59 CLS Outpatient OMI SIMMONS MD [id number] 05/10/2012 09:00:00 05/10/2012 23: 59:59 CLS Outpatient [id number] 05/10/2012 09:00:00 05/10/2012 23: 59:59 CLS Outpatient OMI SIMMONS MD [id number] 11/25/2012 08:53:00 Document Registration
== END 2016-12-30 21:07 | disposition home or self-care (01) ==
LOC: EDUNIT# 19:56 → ER 19:59
DX: L98.8 Other specified disorders of the skin and subcutaneous tissue (principal); M79.89 Other specified soft tissue disorders; E11.9 Type 2 diabetes mellitus without complications; F32.9 Major depressive disorder, single episode, unspecified; E03.9 Hypothyroidism, unspecified; I25.10 Atherosclerotic heart disease of native coronary artery without angina pectoris; I10 Essential (primary) hypertension; Z87.2 Personal history of diseases of the skin and subcutaneous tissue; Z79.84 Long term (current) use of oral hypoglycemic drugs; Z79.4 Long term (current) use of insulin; Z95.5 Presence of coronary angioplasty implant and graft; Z85.41 Personal history of malignant neoplasm of cervix uteri
CPT/HCPCS: 99284

== ENCOUNTER 2017-03-04 15:41 | Observation (INO) | payer MEDICARE ==
[2017-03-04] VITALS (8 sets, daily range): BP systolic 141–178; BP diastolic 66–97
[~2017-03-04] VITALS: Ht 157.5 cm; Wt 77.2 kg
[~2017-03-04 15:41] MED LIST changes: +CANA100T; +DONE5TAB30 PO; +LEVO50TA6 PO
[2017-03-04] MEDS ORDERED: ASPIRIN 81 MG CHEW (CHILDREN'S ASA) ONE (15:43)
[2017-03-04 15:55] LABS: BASOPHILS % (AUTO) 0 % (0-10); EOSINOPHILS # (AUTO) 0.1 10^3/uL (0.0-0.3); EOSINOPHILS % (AUTO) 1 % (0-10); LYMPHOCYTES # (AUTO) 1.8 X 10^3 (1.0-4.0); LYMPHOCYTES % (AUTO) 19 % (12-44); MEAN CORPUSCULAR HEMOGLOBIN 29 PG (25-34); MEAN CORPUSCULAR HGB CONC 32 G/DL (32-36); MEAN CORPUSCULAR VOLUME 90 FL (80-99); MONOCYTES # (AUTO) 0.8 X 10^3 (0.0-1.0); MONOCYTES % (AUTO) 8 % (0-12); NEUTROPHILS # (AUTO) 6.8 X 10^3 (1.8-7.8); NEUTROPHILS % (AUTO) 72 % (42-75); PLATELET COUNT 269 10^3/uL (130-400); RED BLOOD COUNT 4.24 10^6/uL (4.35-5.85); RED CELL DISTRIBUTION WIDTH 13.7 % (10.0-14.5); WHITE BLOOD COUNT 9.5 10^3/uL (4.3-11.0)
[2017-03-04] MEDS ORDERED: ASPIRIN 81 MG CHEW (CHILDREN'S ASA) PO ONE (16:00)
[2017-03-04 16:09] LABS: INR 0.9 (0.8-1.4); PROTHROMBIN TIME PATIENT 12.1 SEC (12.2-14.7)
[2017-03-04 16:15] LABS: ALANINE AMINOTRANSFERASE 12 U/L (0-55); ALBUMIN 3.8 GM/DL (3.2-4.5); AMYLASE 63 U/L (25-125); ANION GAP 7 MMOL/L (5-14); ASPARTATE AMINO TRANSFERASE 13 U/L (5-34); BILIRUBIN,TOTAL 0.5 MG/DL (0.1-1.0); BLOOD UREA NITROGEN 17 MG/DL (7-18); BUN/CREATININE RATIO 22; CALCIUM 9.6 MG/DL (8.5-10.1); CARBON DIOXIDE 28 MMOL/L (21-32); CHLORIDE 107 MMOL/L (98-107); CREATININE SERUM 0.76 MG/DL (0.60-1.30); GFR ESTIMATED > 60; GLUCOSE 101 MG/DL (70-105); LIPASE 58 U/L (8-78); MAGNESIUM 1.5 MG/DL (1.8-2.4); POTASSIUM 4.1 MMOL/L (3.6-5.0); SODIUM 142 MMOL/L (135-145); TOTAL PROTEIN 6.9 GM/DL (6.4-8.2)
[2017-03-04 16:21] LABS: MYOGLOBIN SERUM 48.6 NG/ML (10.0-92.0)
--- NOTE | 2017-03-04 16:32 | Diagnostic Imaging Report ---
INDICATION: Chest pain. Frontal chest obtained at 04:12 p.m. Comparison made with 01/15/2016. Heart is borderline in size. There is no pneumothorax or pleural fluid or focal infiltrate. Study is limited by poor inspiration. IMPRESSION: Borderline heart size with no acute process in the chest. Study is limited by poor inspiration. Dictated by: Dictated on workstation # [id number]
[2017-03-04] MEDS ORDERED: NS IV 1000 ML 1,000 ML IV ONE (16:51)
--- NOTE | 2017-03-04 16:56 | ED Chest Pain ---
General Chief Complaint: Chest Pain Stated Complaint: CHEST PAIN Nursing Triage Note: TO ED PER W/C ACCOMPIED BY FAMILY PATIENT REPORTS SHE HAS HAD CHEST PAIN INTERMITTNE SINCE 930A TODAY. Nursing Sepsis Screen: No Definite Risk Source: patient Exam Limitations: no limitations History of Present Illness Time seen by provider: 16:20 Initial Comments Here with report of chest pain since about 9 a.m. this morning. Described as pressure that goes her left arm. It is intermittent and not associated with any other symptoms currently. Allergies and Home Medications Allergies Coded Allergies: No Known Drug Allergies (Unverified , 04/08/10) Home Medications Atorvastatin Calcium 40 Mg Tablet, 40 MG PO HS, (Reported) LAST FILLED 11/16/15 #30 Canagliflozin 100 Mg Tablet, #90 (Reported) Carvedilol 3.125 Mg Tablet, 3.125 MG PO BID, #60 Ref 0 Prescribed by: CY WELCH on 01/17/16 1026 Clonidine HCl 0.1 Mg Tablet, 0.1 MG PO BID, (Reported) Docusate Sodium 100 Mg Capsule, 200 MG PO DAILY, (Reported) Donepezil HCl 5 Mg Tablet, #30 (Reported) Gabapentin 300 Mg Capsule, 300 MG PO DAILY, (Reported) 300 MG BID X 5 DAYS, THEN INCREASE 300 MG TID Hydrocodone/Acetaminophen 1 Each Tablet, 1 EACH PO Q6H PRN for PAIN, #14 Prescribed by: DESTIN CHATMAN on 09/10/16 1703 Insulin Aspart 300 Units/3 Ml Solution, 5 UNITS SQ AC, (Reported) AND PER SLIDING SCALE Insulin Detemir 100 Unit/1 Ml Insuln.pen, 25 UNITS SQ HS, (Reported) Levetiracetam 500 Mg Tablet, 500 MG PO BID, (Reported) Levothyroxine Sodium 50 Mcg Tablet, #30 (Reported) Lorazepam 0.5 Mg Tablet, 0.5 MG PO Q6H PRN for ANXIETY, (Reported) Magnesium Hydroxide 400 Mg/5 Ml Oral.susp, 30 ML PO DAILY PRN for CONSTIPATION, (Reported) Metformin HCl 500 Mg Tab.er.24h, 1,000 MG PO BID, (Reported) Mirtazapine 15 Mg Tablet, 7.5 MG PO HS, (Reported) TAKES 1/2 OF A (15 MG) TABLET Sertraline HCl 100 Mg Tablet, 100 MG PO DAILY, (Reported) Review of Systems Constitutional: see HPI, No chills, No fever EENTM: No Symptoms Reported Respiratory: No Symptoms Reported Cardiovascular: See HPI, Chest Pain, Denies Edema Gastrointestinal: No Symptoms Reported, Denies Abdominal Pain, Denies Nausea, Denies Vomiting Genitourinary: No Symptoms Reported Musculoskeletal: muscle pain Skin: no symptoms reported Psychiatric/Neurological: No Symptoms Reported All Other Systems Reviewed Negative Unless Noted: Yes Past Iomjbso-Ikpyuz-Rgftkp Hx Patient Social History Alcohol Use: Denies Use Recreational Drug Use: No Smoking Status: Never a Smoker 2nd Hand Smoke Exposure: No Recent Foreign Travel: No Contact w/Someone Who Travel: No Recent Infectious Disease Expo: No Recent Hopitalizations: No Immunizations Up To Date Tetanus Booster (TDap): Unknown PED Vaccines UTD: Yes Date of Pneumonia Vaccine: Apr 12, 2015 Date of Influenza Vaccine: Apr 12, 2015 Seasonal Allergies Seasonal Allergies: No Surgeries History of Surgeries: Yes (MELONAMA FROM LEG; CATARACTS REMOVED) Surgeries: Cardiac, Coronary Stent, Eye Surgery, 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 Respiratory History of Respiratory Disorde: No Currently Using CPAP: No Currently Using BIPAP: No Cardiovascular History of Cardiac Disorders: Yes (STENT X1) Cardiac Disorders: Coronary Artery Disease, High Cholesterol, Hypertension Neurological History of Neurological Disord: No Neurological Disorders: Stroke 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 System Sexually Transmitted Disease: No HIV/AIDS: No Female 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 Disorders: Denies 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: 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, Menopausal Genitourinary History of Genitourinary Disor: No Gastrointestinal History of Gastrointestinal Di: No Musculoskeletal History of Musculoskeletal Dis: Yes Musculoskeletal Disorders: Arthritis Endocrine History of Endocrine Disorders: Yes Endocrine Disorders: Diabetes, Insulin dep, Hypothyroidsim HEENT History of HEENT Disorders: Yes HEENT Disorders: Cataract Loss of Vision: Denies Hearing Impairment: Denies Cancer History of Cancer: Yes Cancer: Cervical Psychosocial History of Psychiatric Problem: No Behavioral Health Disorders: Depression Integumentary History of Skin or Integumenta: Yes Skin/Integumentary Disorders: Pruritis Blood Transfusions History of Blood Disorders: No Adverse Reaction to a Blood Tr: No Reviewed Nursing Assessment Reviewed/Agree w Nursing PMH: Yes Family Medical History Significant Family History: Heart Disease, Hypertension Family Medial History: Family history: Alzheimer's disease 03 MOTHER Family history: Hypertension 03 FATHER 03 MOTHER Myocardial infarction 03 FATHER Physical Exam Vital Signs Vital Sign - Last 12Hours 03/04/17 15:41 Temp 98.2 Pulse 96 Resp 18 B/P (MAP) 110/77 Pulse Ox 96 O2 Delivery Room Air Capillary Refill : Less Than 3 Seconds General Appearance: No Apparent Distress, WD/WN HEENT: PERRL/EOMI, Pharynx Normal Neck: Non Tender, Supple Respiratory: Lungs Clear, Normal Breath Sounds, Other (mass noted to the left upper chest that can be palpated but not visualized) Cardiovascular: Regular Rate, Rhythm, No Murmur Gastrointestinal: Non Tender, Soft Extremity: Normal Range of Motion, Non Tender, No Calf Tenderness Neurologic/Psychiatric: Alert, Oriented x3 Skin: Normal Color, Warm/Dry Progress/Results/Core Measures Results/Orders Lab Results Laboratory Tests Test 03/04/17 15:48 Range/Units White Blood Count 9.5 4.3-11.0 10^3/uL Red Blood Count 4.24 L 4.35-5.85 10^6/uL Hemoglobin 12.3 11.5-16.0 G/DL Hematocrit 38 35-52 % Mean Corpuscular Volume 90 80-99 FL Mean Corpuscular Hemoglobin 29 25-34 PG Mean Corpuscular Hemoglobin Concent 32 32-36 G/DL Red Cell Distribution Width 13.7 10.0-14.5 % Platelet Count 269 130-400 10^3/uL Mean Platelet Volume 9.0 7.4-10.4 FL Neutrophils (%) (Auto) 72 42-75 % Lymphocytes (%) (Auto) 19 12-44 % Monocytes (%) (Auto) 8 0-12 % Eosinophils (%) (Auto) 1 0-10 % Basophils (%) (Auto) 0 0-10 % Neutrophils # (Auto) 6.8 1.8-7.8 X 10^3 Lymphocytes # (Auto) 1.8 1.0-4.0 X 10^3 Monocytes # (Auto) 0.8 0.0-1.0 X 10^3 Eosinophils # (Auto) 0.1 0.0-0.3 10^3/uL Basophils # (Auto) 0.0 0.0-0.1 10^3/uL Prothrombin Time 12.1 L 12.2-14.7 SEC INR Comment 0.9 0.8-1.4 Activated Partial Thromboplast Time 26 24-35 SEC D-Dimer 1.11 H 0.00-0.49 UG/ML Sodium Level 142 135-145 MMOL/L Potassium Level 4.1 3.6-5.0 MMOL/L Chloride Level 107 98-107 MMOL/L Carbon Dioxide Level 28 21-32 MMOL/L Anion Gap 7 5-14 MMOL/L Blood Urea Nitrogen 17 7-18 MG/DL Creatinine 0.76 0.60-1.30 MG/DL Estimat Glomerular Filtration Rate > 60 BUN/Creatinine Ratio 22 Glucose Level 101 70-105 MG/DL Calcium Level 9.6 8.5-10.1 MG/DL Magnesium Level 1.5 L 1.8-2.4 MG/DL Total Bilirubin 0.5 0.1-1.0 MG/DL Aspartate Amino Transf (AST/SGOT) 13 5-34 U/L Alanine Aminotransferase (ALT/SGPT) 12 0-55 U/L Alkaline Phosphatase 65 40-136 U/L Myoglobin 48.6 10.0-92.0 NG/ML Troponin I < 0.30 <0.30 NG/ML Total Protein 6.9 6.4-8.2 GM/DL Albumin 3.8 3.2-4.5 GM/DL Amylase Level 63 25-125 U/L Lipase 58 8-78 U/L My Orders Orders - CARLY TALLEY MD Aspirin Chewable Tablet (Baby Aspirin Ch (03/04/17 15:43) Cbc With Automated Diff (03/04/17 15:50) Magnesium (03/04/17 15:50) Chest 1 View, Ap/Pa Only (03/04/17 15:50) Ekg Tracing (03/04/17 15:50) Cardiac Profile 1 (03/04/17 15:50) Comprehensive Metabolic Panel (03/04/17 15:50) Myoglobin Serum (03/04/17 15:50) Protime With Inr (03/04/17 15:50) Partial Thromboplastin Time (03/04/17 15:50) O2 (03/04/17 15:50) Monitor-Rhythm Ecg Trace Only (03/04/17 15:50) Lipid Panel (03/05/17 06:00) Aspirin Chewable Tablet (Baby Aspirin Ch (03/04/17 16:00) Saline Lock/Iv-Start (03/04/17 15:50) Lipase (03/04/17 15:50) Amylase (03/04/17 15:50) Fibrin Degradation Products (03/04/17 15:50) Rx-Nitroglycerin Sl Tabs (Rx-Nitrostat S (03/04/17 17:00) Ct Angio Chest W (03/04/17 16:51) Saline Lock/Iv-Start (03/04/17 16:51) Ns Iv 1000 Ml (Sodium Chloride 0.9%) (03/04/17 16:51) Iohexol Injection (Omnipaque 350 Mg/Ml 1 (03/04/17 17:00) Ns (Ivpb) (Sodium Chloride 0.9% Ivpb Bag (03/04/17 17:00) Medications Given in ED Current Medications Medications Dose Ordered Sig/Hanny Route Start Time Stop Time Status Last Admin Dose Admin Aspirin 324 mg ONCE ONCE PO 03/04/17 16:00 03/04/17 16:01 DC 03/04/17 15:52 324 MG Iohexol 150 ml ONCE ONCE IV 03/04/17 17:00 03/04/17 17:03 DC 03/04/17 17:08 125 ML Sodium Chloride 100 ml ONCE ONCE IV 03/04/17 17:00 03/04/17 17:03 DC 03/04/17 17:08 80 ML Sodium Chloride 1,000 ml @ 0 mls/hr Q0M ONCE IV 03/04/17 16:51 03/04/17 16:52 DC 03/04/17 17:23 1,000 MLS/HR Vital Signs/I&O Vital Sign - Last 12Hours 03/04/17 15:41 Temp 98.2 Pulse 96 Resp 18 B/P (MAP) 110/77 Pulse Ox 96 O2 Delivery Room Air Blood Pressure Mean: 88 Progress Note : Progress Note Seen and evaluated. IV, labs, EKG and chest x-ray ordered. D-dimer ordered. This was noted be elevated. CT angiogram of the chest ordered. Patient has varying reports of chest pain. Consider nitroglycerin but not given as patient reported pain-free. Aspirin was given. Monitor patient. 1750: I did discuss the case with Dr. Ricks due to patient's significant past medical history and coronary artery disease. We will admit patient to the hospital for continued evaluation for her chest pain. Consult Dr. Sosa in the morning. I did discuss the case with Dr. Lemon as he is on-call overnight to fill him in on the patient. Both agree. Dr. Carty accepts patient for observation status. Patient family agree with plan. ECG Initial ECG Impression Date: Mar 04, 2017 Initial ECG Impression Time: 15:43 Initial ECG Rate: 64 Initial ECG Rhythm: Normal Sinus Comment Sinus rhythm with left anterior fascicular block. Left axis deviation. Similar to previous of 15 January 2016. No evidence of ST elevation IA. Interpreted by me. Diagnostic Imaging Diagonstic Imaging: Xray Plain Films/CT/US/NM/MRI: chest Comments VIA [facility], [facility]. [place], [place] NAME: SANJAY MATUTE [facility] REC#: [id number] PT STATUS: REG ER : 1935 PHYSICIAN: CARLY TALLEY MD ADMIT DATE: 03/04/17/ER Draft Date of Exam:03/04/17 CHEST 1 VIEW, AP/PA ONLY INDICATION: Chest pain. Frontal chest obtained at 04:12 p.m. Comparison made with 01/15/2016. Heart is borderline in size. There is no pneumothorax or pleural fluid or focal infiltrate. Study is limited by poor inspiration. IMPRESSION: Borderline heart size with no acute process in the chest. Study is limited by poor inspiration. Dictated on workstation # [id number] Dict: 03/04/17 1624 Trans: 03/04/17 1631 [id number] Interpreted by: SAPPHIRE NAVAS MD Electronically signed by: Diagonstic Imaging: CT Plain Films/CT/US/NM/MRI: chest Comments VIA [facility], [facility]. [place], [place] NAME: SANJAY MATUTE [facility] REC#: [id number] PT STATUS: REG ER : 1935 PHYSICIAN: CARLY TALLEY MD ADMIT DATE: 03/04/17/ER Draft Date of Exam:03/04/17 CT ANGIO CHEST W EXAMINATION: CT angiogram of the chest dated 03/04/2017. TECHNIQUE: Multiple contiguous axial images were obtained through the chest after uneventful bolus administration of intravenous contrast. Reconstructed CTA MIP acquisitions were also performed. INDICATION: Left-sided stroke. Chest pain, left arm pain, elevated D-dimer. Left breast lump. FINDINGS: The lungs demonstrate no masses or lesions. Scattered areas of mild coarsened interstitial changes consistent with areas of atelectasis and/or scar. This is most pronounced at the lung bases. There are no pericardial or pleural effusions. There are no central or proximal segmental pulmonary emboli. There is atherosclerotic disease along the course of the aorta and its branches. Cardiomegaly also noted. Mild thickened appearance to the distal esophageal wall is noted. This is likely due to mild esophagitis or even a small hiatal hernia, but clinical correlation is recommended. Tiny cystic changes are seen in the thyroid gland, too small to characterize. Scattered non-enlarged lymph nodes seen throughout the mediastinum. More prominent lymph nodes are seen in the precarinal region with an area measuring approximately 2.3 cm in greatest dimension. No central or proximal segmental pulmonary emboli are seen. There is a nonspecific heterogeneous lesion in the left aspect of the anterior chest likely involving portions of the left breast. This measures at least 6.5 x 3.3 cm in size and is a nonspecific finding. The visualized upper abdominal structures demonstrate prominence of the adrenal glands bilaterally likely due to hyperplasia. There is a lesion emanating off of the superior pole of the left kidney, not consistent with a simple cyst, perhaps a hemorrhagic cyst but a solid lesion not excluded. Other cystic changes in the kidneys poorly characterized due to their small size and incomplete evaluation. There is diffuse degenerative disease throughout the osseous structures. IMPRESSION: 1. No central or proximal segmental pulmonary embolus. 2. Slightly prominent lymph nodes within the precarinal region, nonspecific in nature, and followup would be recommended to assure resolution. 3. Nonspecific lesion within the soft tissues of the left anterior chest wall; correlate clinically as this could represent a hematoma, but a soft tissue mass such as a liposarcoma given internal fatty changes not excluded. Correlation with history and symptoms recommended, and if necessary, MRI of the region with and without contrast could provide further characterization. Otherwise, if this actually lies within the breast tissue itself, mammography recommended on a nonemergent basis. 4. Other incidental findings as noted above. Dictated on workstation # [id number] Dict: 03/04/17 1723 Trans: 03/04/17 1736 [id number] Interpreted by: PARVIZ PETER MD Electronically signed by: Reviewed: Reviewed by Me Departure Communication Time/Spoke to Admitting Phy: 17:46 Time/Spoke to Consulting Physi: 17:44 Impression Impression: Primary Impression: Chest pain Qualified Codes: R07.9 - Chest pain, unspecified Disposition: 09 ADMITTED INPATIENT Condition: Stable Admissions Decision to Admit Reason: Admit from ER (General) Decision to Admit/Date: Mar 04, 2017 Time/Decision to Admit Time: 17:46 Departure-Patient Inst. Referrals: [facility] (PCP/Family) Primary Care Physician CARLY TALLEY MD Mar 04, 2017 16:56
[2017-03-04] MEDS ORDERED: NS 100 ML (IVPB) BAG IV ONE (17:00)
[2017-03-04] MEDS ORDERED: RX-NITROGLYCERIN 0.4 MG TAB BTL 25'S SL PRN (17:00)
[2017-03-04] MEDS ORDERED: IOHEXOL 350 MG/ML 150 ML (OMNIPAQUE 350) VIAL IV ONE (17:00)
--- NOTE | 2017-03-04 17:37 | Diagnostic Imaging Report ---
EXAMINATION: CT angiogram of the chest dated 03/04/2017. TECHNIQUE: Multiple contiguous axial images were obtained through the chest after uneventful bolus administration of intravenous contrast. Reconstructed CTA MIP acquisitions were also performed. INDICATION: Left-sided stroke. Chest pain, left arm pain, elevated D-dimer. Left breast lump. FINDINGS: The lungs demonstrate no masses or lesions. Scattered areas of mild coarsened interstitial changes consistent with areas of atelectasis and/or scar. This is most pronounced at the lung bases. There are no pericardial or pleural effusions. There are no central or proximal segmental pulmonary emboli. There is atherosclerotic disease along the course of the aorta and its branches. Cardiomegaly also noted. Mild thickened appearance to the distal esophageal wall is noted. This is likely due to mild esophagitis or even a small hiatal hernia, but clinical correlation is recommended. Tiny cystic changes are seen in the thyroid gland, too small to characterize. Scattered non-enlarged lymph nodes seen throughout the mediastinum. More prominent lymph nodes are seen in the precarinal region with an area measuring approximately 2.3 cm in greatest dimension. No central or proximal segmental pulmonary emboli are seen. There is a nonspecific heterogeneous lesion in the left aspect of the anterior chest likely involving portions of the left breast. This measures at least 6.5 x 3.3 cm in size and is a nonspecific finding. The visualized upper abdominal structures demonstrate prominence of the adrenal glands bilaterally likely due to hyperplasia. There is a lesion emanating off of the superior pole of the left kidney, not consistent with a simple cyst, perhaps a hemorrhagic cyst but a solid lesion not excluded. Other cystic changes in the kidneys poorly characterized due to their small size and incomplete evaluation. There is diffuse degenerative disease throughout the osseous structures. IMPRESSION: 1. No central or proximal segmental pulmonary embolus. 2. Slightly prominent lymph nodes within the precarinal region, nonspecific in nature, and followup would be recommended to assure resolution. 3. Nonspecific lesion within the soft tissues of the left anterior chest wall; correlate clinically as this could represent a hematoma, but a soft tissue mass such as a liposarcoma given internal fatty changes not excluded. Correlation with history and symptoms recommended, and if necessary, MRI of the region with and without contrast could provide further characterization. Otherwise, if this actually lies within the breast tissue itself, mammography recommended on a nonemergent basis. 4. Other incidental findings as noted above. Dictated by: Dictated on workstation # [id number]
--- OUTSIDE RECORDS SUMMARY | 2017-03-04 18:14 | XMS REPORT | Clinical Summary ---
Author Author [facility] Organization [facility] Address Unknown Phone Unavailable Care Team Providers Care Combine Operator Name Role Phone PCP Unavailable Source Comments Some departments are not documenting in the electronic medical record. If you do not see the information that you expected, contact Release of Information in the Health Information Management department at [phone] for further assistance in locating additional records.[facility] Allergies No Known Allergies Current Medications Prescription Sig. [...] units Active Problems Problem Noted Date Seizure ([facility]) 10/18/2015 Right sided weakness 10/16/2015 Type 2 diabetes mellitus ([facility]) 10/16/2015 Essential hypertension 10/16/2015 Hyperlipidemia 10/16/2015 Depression 10/16/2015 Altered mental status, unspecified 10/16/2015 Stroke ([facility]) 10/15/2015 Social History Tobacco Use Types Packs/Day Years Used Date Never Smoker Smokeless Tobacco: Never Used Alcohol Use Drinks/Week oz/Week Comments No 0 Standard 0.0 drinks or equivalent Sex Assigned at Date Recorded Not on file Last Filed Vital Signs Vital Sign Reading Time Taken Blood Pressure 134/68 10/18/2015 8:00 AM CDT Pulse 49 10/18/2015 10:00 AM CDT Temperature 36.6 C (97.8 F) 10/18/2015 8:00 AM CDT Respiratory Rate - - Oxygen Saturation 93% 10/18/2015 8:00 AM CDT Inhaled Oxygen - - Concentration Weight 68.5 kg (151 lb) 10/16/2015 9:27 AM CDT Height 162.6 cm (5' 4") 10/16/2015 9:27 AM CDT Body Mass Index 25.92 10/16/2015 9:27 AM CDT Plan of Treatment Health Maintenance Due Date Last Done Comments PHYSICAL (COMPREHENSIVE) 1942 EXAM PERTUSSIS VACCINE 1948 TETANUS VACCINE 1954 SHINGLES VACCINE 1997 OSTEOPOROSIS SCREENING 2002 PREVNAR/PNEUMOVAX (#1) 2002 INFLUENZA VACCINE 03/13/2017 Results Not on filefrom Last 3 Months
[2017-03-04] MEDS ORDERED: ONDANSETRON 4 MG/2 ML (SDV) Z0FRAN IV PRN (18:45)
[2017-03-04] MEDS ORDERED: CATHETER FLUSH 10 ML SYR IV PRN (18:45)
[2017-03-04] MEDS ORDERED: NITROGLYCERIN SUBLINGUAL 0.4 MG TAB (NITROSTAT) SL PRN (18:45)
[2017-03-04] MEDS ORDERED: NS IV 1000 ML 1,000 ML IV SCH (18:45)
[2017-03-04] MEDS ORDERED: morphine INJ 4 MG/ML 1 ML (VIAL/SYRINGE) IV PRN (19:00)
[2017-03-04 21:54] LABS: MYOGLOBIN SERUM 50.6 NG/ML (10.0-92.0); TROPONIN I < 0.30 NG/ML (<0.30)
[2017-03-04] MEDS: inSUlin (REGULAR) HUMAN 1 UNIT/0.01 ML (CHARGE PER UNIT) SC SCH (22:24)
[2017-03-05 04:30] VITALS: BP 195/87
[2017-03-05 05:11] VITALS: BP 182/70
[2017-03-05] MEDS ORDERED: meTOprolol 5 MG/5 ML (LOPRESSOR) VIAL IV ONE (05:15)
[2017-03-05] MEDS: inSUlin (REGULAR) HUMAN 1 UNIT/0.01 ML (CHARGE PER UNIT) SC SCH ×2 (05:18→10:21)
[2017-03-05 05:35] LABS: BASOPHILS % (AUTO) 0 % (0-10); EOSINOPHILS # (AUTO) 0.1 10^3/uL (0.0-0.3); EOSINOPHILS % (AUTO) 1 % (0-10); LYMPHOCYTES # (AUTO) 1.5 X 10^3 (1.0-4.0); LYMPHOCYTES % (AUTO) 19 % (12-44); MEAN CORPUSCULAR HEMOGLOBIN 29 PG (25-34); MEAN CORPUSCULAR HGB CONC 32 G/DL (32-36); MEAN CORPUSCULAR VOLUME 91 FL (80-99); MEAN PLATELET VOLUME 9.2 FL (7.4-10.4); MONOCYTES # (AUTO) 0.5 X 10^3 (0.0-1.0); MONOCYTES % (AUTO) 7 % (0-12); NEUTROPHILS # (AUTO) 5.6 X 10^3 (1.8-7.8); NEUTROPHILS % (AUTO) 73 % (42-75); PLATELET COUNT 237 10^3/uL (130-400); RED BLOOD COUNT 3.99 10^6/uL (4.35-5.85); RED CELL DISTRIBUTION WIDTH 13.8 % (10.0-14.5); WHITE BLOOD COUNT 7.6 10^3/uL (4.3-11.0)
[2017-03-05 05:56] LABS: ALANINE AMINOTRANSFERASE 10 U/L (0-55); ALBUMIN 3.6 GM/DL (3.2-4.5); ANION GAP 12 MMOL/L (5-14); ASPARTATE AMINO TRANSFERASE 13 U/L (5-34); BILIRUBIN,TOTAL 0.5 MG/DL (0.1-1.0); BLOOD UREA NITROGEN 15 MG/DL (7-18); BUN/CREATININE RATIO 21; CALCIUM 9.6 MG/DL (8.5-10.1); CARBON DIOXIDE 23 MMOL/L (21-32); CHLORIDE 106 MMOL/L (98-107); CHOLESTEROL 167 MG/DL (< 200); CREATININE SERUM 0.72 MG/DL (0.60-1.30); DIRECT LDL 88 MG/DL (1-129); GFR ESTIMATED > 60; GLUCOSE 126 MG/DL (70-105); SODIUM 141 MMOL/L (135-145); TOTAL PROTEIN 6.5 GM/DL (6.4-8.2); TRIGLYCERIDES 179 MG/DL (<150); VLDL CHOLESTEROL 36 MG/DL (5-40)
[2017-03-05 06:27] VITALS: BP 188/70
[2017-03-05 06:44] VITALS: BP 194/72
[2017-03-05] MEDS ORDERED: amLODIPine 10 MG (NORVASC) TAB PO NR (07:35)
[2017-03-05 08:16] VITALS: BP 160/74
[2017-03-05] MEDS ORDERED: CARV3.12 PO (08:26)
[2017-03-05] MEDS ORDERED: EXEN2PEN INJ (08:26)
[2017-03-05] MEDS ORDERED: METF750T2 PO (08:26)
[2017-03-05] MEDS ORDERED: ASPI1CPM6 PO (08:26)
--- NOTE | 2017-03-05 08:37 | Consultation-Cardiology ---
HPI-Cardiology Cardiology Consultation: Date of Consultation 03/05/17 Time Seen by Provider: 08:30 Date of Admission 03-04-17 Attending Physician Mari Ricks DO Admitting Physician Sabra,[facility] Consulting Physician Ana Sosa MD HPI: Chief Complaint: Chest pain Ms. Matute is a 81 year old female who has been admitted to [facility] from the ED. She states yesterday she woke up around 9:30 in the morning and was feeding her dog when she had a sudden onset of left sided chest pain. She reports it was sharp and stabbing in nature. She denies any dyspnea, palpitations, or diaphoresis with the pain. She states she did feel a little nauseated. She reports the discomfort radiated into her shoulder. She reports the pain persisted throughout the day, but the intensity would come and go. The discomfort was not r/t physical activity. She states she received ASA in the ED and the discomfort resolved and she has had no further discomfort since. No c/o LE edema. No c/o v/d. No c/o fever or chills. She reports an occ non- productive cough. No c/o near syncope or syncope. She does have some difficulty with ambulation following a series of CVA's last year for which she was treated at [facility]. Review of Systems-Cardiology Review of Systems Constitutional: As described under HPI Eyes: No As described under HPI, No no symptoms reported, No blindness, No blurred vision, No contact lenses, No drainage, No decreased acuity, No foreign body sensation, No pain, No vision change Ears/Nose/Throat: No chronic hearing loss, No ear discharge, No ear pain, No nasal drainage, No ulcerations Respiratory: As described under HPI Cardiovascular: As described under HPI Gastrointestinal: No abdomen distended, No abdominal pain, No blood streaked bowels, No constipation, No diarrhea, nausea, No vomiting, No stool coloration changes Genitourinary: No burning, No dysuria, No discharge, No frequency, No flank pain, No hematuria, No urgency : Yes : No Musculoskeletal: other (chronic leg weakness (following CVA in 2016)) Skin: No rash, No skin related problems, No ulcerations Psychiatric/Neurological: No anxiety, No depression, No seizure, No focal weakness, No syncope Hematologic: No bleeding abnormalities All Other Systems Reviewed Negative Unless Noted: Yes APT-Wljecw-Neioir Hx Patient Social History Alcohol Use: Denies Use Recreational Drug Use: No Smoking Status: Never a Smoker 2nd Hand Smoke Exposure: No Recent Foreign Travel: No Recent Infectious Disease Expo: No Hospitalization with Isolation: Denies Physical Abuse Screen: No Sexual Abuse: No Immunizations Up To Date Tetanus Booster (TDap): Unknown Date of Pneumonia Vaccine: Apr 12, 2015 Date of Influenza Vaccine: Apr 12, 2015 Past Medical History PMH As described under Assessment. Family Medical History Family Medical History: She reports both her parents had HTN and CAD. Family History: Family history: Alzheimer's disease 03 MOTHER Family history: Hypertension 03 FATHER 03 MOTHER Myocardial infarction 03 FATHER 03 MOTHER Allergies and Home Medications Allergies Coded Allergies: canagliflozin (Verified Adverse Reaction, Severe, DIARRHEA, 03/05/17) Home Medications Amlodipine Besylate 10 Mg Tablet, 10 MG PO DAILY, #30 Ref 5 Prescribed by: BLANK COOK on 03/05/17 0917 Aspirin/Dipyridamole 1 Each Cpmp.12hr, 1 CAP PO BID, (Reported) Atorvastatin Calcium 40 Mg Tablet, 40 MG PO HS, (Reported) Carvedilol 3.125 Mg Tablet, 6.25 MG PO DAILY, (Reported) TAKES 2 (3.125MG) TABLETS Donepezil HCl 5 Mg Tablet, 5 MG PO HS, (Reported) Exenatide Microspheres 2 Mg/0.65 Ml Pen.injctr, 2 MG INJ Mo, (Reported) Gabapentin 300 Mg Capsule, 300 MG PO BID, (Reported) Levetiracetam 500 Mg Tablet, 500 MG PO BID, (Reported) LAST FILLED #180 11-03-16 Levothyroxine Sodium 50 Mcg Tablet, 50 MCG PO DAILY, (Reported) Metformin HCl 750 Mg Tab.er.24h, 750 MG PO DAILY, (Reported) Naproxen Sodium 220 Mg Tablet, 220 MG PO BID PRN for PAIN-MILD, (Reported) Sertraline HCl 100 Mg Tablet, 150 MG PO DAILY, (Reported) TAKES 1 & 1/2 (100MG) TABLET Physical Exam-Cardiology Physical Exam Vital Signs/I&O Vital Sign - Last 12Hours 03/04/17 03/04/17 03/05/17 03/05/17 22:23 23:50 01:00 04:00 Temp 98.0 97.7 98.4 Pulse 62 58 56 57 Resp 20 18 20 B/P (MAP) 178/84 169/68 Pulse Ox 97 96 96 O2 Delivery Room Air Room Air Room Air 03/05/17 03/05/17 03/05/17 03/05/17 04:30 05:11 06:27 06:44 Pulse 55 B/P (MAP) 195/87 182/70 188/70 194/72 03/05/17 03/05/17 03/05/17 06:45 07:00 08:16 Temp 97.8 Pulse 54 62 54 Resp 20 B/P (MAP) 160/74 Pulse Ox 96 O2 Delivery Room Air Capillary Refill : Less Than 3 Seconds Constitutional: appears stated age, No apparent distress, well-developed, well- nourished HEENT: PERRL, No discharge, hearing is well preserved, oral hygience is good, No ulceration, No xanthelasmas are seen Neck: No carotid bruit, carotid pulses are 2 + bilaterally Respiratory: No accessory muscle use, No respiratory distress, crackles (bi- basilar) Cardiovascular: regular rate-rhythm, No JVD, S1 and S2 Gastrointestinal: No tender, soft, audible bowel sounds, No spleenomegaly Rectal: deferred Extremities: No clubbing, No cyanosis, No significant edema Neurologic/Psychiatric: alert, oriented x 3, grossly intact Skin: No rash, No ulcerations Data Review Labs Laboratory Tests 03/04/17 15:48: White Blood Count 9.5, Red Blood Count 4.24L, Hemoglobin 12.3, Hematocrit 38, Mean Corpuscular Volume 90, Mean Corpuscular Hemoglobin 29, Mean Corpuscular Hemoglobin Concent 32, Red Cell Distribution Width 13.7, Platelet Count 269, Mean Platelet Volume 9.0, Neutrophils (%) (Auto) 72, Lymphocytes (%) (Auto) 19, Monocytes (%) (Auto) 8, Eosinophils (%) (Auto) 1, Basophils (%) (Auto) 0, Neutrophils # (Auto) 6.8, Lymphocytes # (Auto) 1.8, Monocytes # (Auto) 0.8, Eosinophils # (Auto) 0.1, Basophils # (Auto) 0.0, Prothrombin Time 12.1L, INR Comment 0.9, Activated Partial Thromboplast Time 26, D-Dimer 1.11H, Sodium Level 142, Potassium Level 4.1, Chloride Level 107, Carbon Dioxide Level 28, Anion Gap 7, Blood Urea Nitrogen 17, Creatinine 0.76, Estimat Glomerular Filtration Rate > 60, BUN/Creatinine Ratio 22, Glucose Level 101, Calcium Level 9.6, Magnesium Level 1.5L, Total Bilirubin 0.5, Aspartate Amino Transf (AST/SGOT ) 13, Alanine Aminotransferase (ALT/SGPT) 12, Alkaline Phosphatase 65, Myoglobin 48.6, Troponin I < 0.30, Total Protein 6.9, Albumin 3.8, Amylase Level 63, Lipase 58 03/04/17 21:25: Myoglobin 50.6, Troponin I < 0.30 03/04/17 21:44: Glucometer 201H 03/05/17 05:15: White Blood Count 7.6, Red Blood Count 3.99L, Hemoglobin 11.7, Hematocrit 36, Mean Corpuscular Volume 91, Mean Corpuscular Hemoglobin 29, Mean Corpuscular Hemoglobin Concent 32, Red Cell Distribution Width 13.8, Platelet Count 237, Mean Platelet Volume 9.2, Neutrophils (%) (Auto) 73, Lymphocytes (%) (Auto) 19, Monocytes (%) (Auto) 7, Eosinophils (%) (Auto) 1, Basophils (%) (Auto) 0, Neutrophils # (Auto) 5.6, Lymphocytes # (Auto) 1.5, Monocytes # (Auto) 0.5, Eosinophils # (Auto) 0.1, Basophils # (Auto) 0.0, Sodium Level 141, Potassium Level 4.0, Chloride Level 106, Carbon Dioxide Level 23, Anion Gap 12, Blood Urea Nitrogen 15, Creatinine 0.72, Estimat Glomerular Filtration Rate > 60, BUN/ Creatinine Ratio 21, Glucose Level 126H, Calcium Level 9.6, Total Bilirubin 0.5 , Aspartate Amino Transf (AST/SGOT) 13, Alanine Aminotransferase (ALT/SGPT) 10, Alkaline Phosphatase 61, Total Protein 6.5, Albumin 3.6, Glucometer 119H, Triglycerides Level 179H, Cholesterol Level 167, LDL Cholesterol Direct 88, VLDL Cholesterol 36, HDL Cholesterol 51 Radiology NAME: SANJAY MATUTE [facility] REC#: [id number] PT STATUS: ADM Cody : 1935 PHYSICIAN: CARLY TALLEY MD ADMIT DATE: 03/04/17 Signed Date of Exam: 03/04/17 CT ANGIO CHEST W EXAMINATION: CT angiogram of the chest dated 03/04/2017. TECHNIQUE: Multiple contiguous axial images were obtained through the chest after uneventful bolus administration of intravenous contrast. Reconstructed CTA MIP acquisitions were also performed. INDICATION: Left-sided stroke. Chest pain, left arm pain, elevated D-dimer. Left breast lump. FINDINGS: The lungs demonstrate no masses or lesions. Scattered areas of mild coarsened interstitial changes consistent with areas of atelectasis and/or scar. This is most pronounced at the lung bases. There are no pericardial or pleural effusions. There are no central or proximal segmental pulmonary emboli. There is atherosclerotic disease along the course of the aorta and its branches. Cardiomegaly also noted. Mild thickened appearance to the distal esophageal wall is noted. This is likely due to mild esophagitis or even a small hiatal hernia, but clinical correlation is recommended. Tiny cystic changes are seen in the thyroid gland, too small to characterize. Scattered non-enlarged lymph nodes seen throughout the mediastinum. More prominent lymph nodes are seen in the precarinal region with an area measuring approximately 2.3 cm in greatest dimension. No central or proximal segmental pulmonary emboli are seen. There is a nonspecific heterogeneous lesion in the left aspect of the anterior chest likely involving portions of the left breast. This measures at least 6.5 x 3.3 cm in size and is a nonspecific finding. The visualized upper abdominal structures demonstrate prominence of the adrenal glands bilaterally likely due to hyperplasia. There is a lesion emanating off of the superior pole of the left kidney, not consistent with a simple cyst, perhaps a hemorrhagic cyst but a solid lesion not excluded. Other cystic changes in the kidneys poorly characterized due to their small size and incomplete evaluation. There is diffuse degenerative disease throughout the osseous structures. IMPRESSION: 1. No central or proximal segmental pulmonary embolus. 2. Slightly prominent lymph nodes within the precarinal region, nonspecific in nature, and followup would be recommended to assure resolution. 3. Nonspecific lesion within the soft tissues of the left anterior chest wall; correlate clinically as this could represent a hematoma, but a soft tissue mass such as a liposarcoma given internal fatty changes not excluded. Correlation with history and symptoms recommended, and if necessary, MRI of the region with and without contrast could provide further characterization. Otherwise, if this actually lies within the breast tissue itself, mammography recommended on a nonemergent basis. 4. Other incidental findings as noted above. Dictated by: Dictated on workstation # [id number] Dict: 03/04/171722 Trans: 03/04/171920 Interpreted by: PARVIZ PETER MD Electronically signed by: PARVIZ PETER MD 03/04/171920 ECG Impression ECG Initial ECG Rhythm: Normal Sinus A/P-Cardiology Assessment/Admission Diagnosis Chest pain without evidence of ACS. Chest pain likely noncardiac, etiology unestablished HTN, not well controlled H/O multiple strokes in early to mid 2015; now has bilat leg weakness that is more on the L, poor balance, and loss of R visual field. This has been followed by her neurologist at [facility] S/p L TKR in Jul 2015 CAD - Cardiac cath of 06-19-15 showed a widely patent stent in the prox LAD which is known to be Promus 2.5 x 8 mm stent placed in 2009. The mid LAD has tandem up to 50% lesions across which the FFR is 0.85, indicating hemodynamic insignificance. The RCA has 40 to 50% stenoses in its prox and distal portions. LVEF 60-65%. Normal LVEDP. No significant MR. Echo 06/04/15 showed LVEF 65-70%, mod conc LVH, mild AoV sclerosis, mild AI and TR, mild diastolic dysfunction, PASP 25 mmHg DM II Hyperlipidemia,managed and followed by her PCP, Leonor Donohue APRN Mild hypothyroidism, managed by her PCP Mild carotid arterial disease diagnosed at [facility] at the time of CVA in October 2015 , per patient report Discussion and Recomendations Chest pain of undetermined etiology without evidence of ACS. She is not reporting any further episodes of chest pain. Based on risk factors we advise further cardiac work up. She verbalizes understanding, but wishes to go home and f/u as an out-pt for further cardiac testing. Continue home medications including BB, statin, ASA. BP not well controlled, Norvasc 10 has already been added which we will continue. She would like to further discuss out pt f/u with Dr. Sosa. We would like to thank medical services for this consult. Further recommendations will be based on her hospital course. We have discussed risk factor modification. This consult is being scribed by John Cook APRN on behalf of Dr. Sosa after discussion regarding plan of care. Clinical Quality Measures AMI/AHF: ASA po Prior to arrival: No DVT/VTE Risk/Contraindication: Risk Factor Score Per Nursin RFS Level Per Nursing on Admit: 4+=Very High Physician Assessment Physician Assessment No cp or palp or syncope or shortness of breath. Wishes to go home Lungs: good bilat air entry Cor: reg A&R * As documented in our note above that I updated (italics) and as noted below * BP is not well controlled. We have added amlodipine * Given h/o mod CAD, we advise compliance with antiplatelet therapy * Outpatient f/u is advised BLANK COOK [facility] Mar 05, 2017 08:37 ANA S[address]A [address] FACP [facility] Mar 05, 2017 10:01
[2017-03-05] MEDS ORDERED: IBUP-30 PO (08:42)
[2017-03-05] MEDS ORDERED: NAPR220T66 PO (08:45)
[2017-03-05] MEDS ORDERED: ASPIRIN E.C. 325 MG (ECOTRIN) TABLET PO SCH (09:00)
[2017-03-05] MEDS ORDERED: AMLO10TA2 PO (09:17)
[2017-03-05] MEDS ORDERED: ASPI-999 PO (10:12)
--- NOTE | 2017-03-05 10:50 | Short Stay Summary-Hospitalist ---
HPI History of Present Illness: HPI/Chief Complaint CC: Chest pain HPI: This is a 81 yoWF Pt of [facility] who presented to the ER with chest pain. She was last seen by Dr. Dunbar, ER doctor, when she sustained a stroke in December of 2015 and was life-lighted to and has done well. Pt sees Dr. Sosa regularly and has had no more chest pain, labs are stable, and pt wants to DC [employer] SCI[employer] PROF[employer] Review: Pt would like to just go home and do out-pt next week Norvasc to be added w/ASA. Dr Sosa called me and updated me on the plan. Patient Interview: Pt confirms seeing Dr. Baca at [facility]. Physical exam stable. Lungs sound perfect Scribed by Claudine Olivares under the direct supervision of Dr. Santana. Source: patient Exam Limitations: no limitations Date Seen 03/05/17 Time Seen by Provider: 09:45 Attending Physician Mari Santana DO PCP Sabra,[facility] Referring Physician Date of Admission Mar 04, 2017 at 17:55 Home Medications & Allergies Home Medications Reviewed patient Home Medication Reconciliation Form Allergies Allergies Coded Allergies canagliflozin (Verified Adverse Reaction, Severe, DIARRHEA, 03/05/17) Past Dwedoho-Ygkcff-Utlsjb Hx Patient Social History Marrital Status: single Employed/Student: retired Alcohol Use: Denies Use Recreational Drug Use: No Smoking Status: Never a Smoker 2nd Hand Smoke Exposure: No Physical Abuse Screen: No Sexual Abuse: No Recent Foreign Travel: No Contact w/other who traveled: No Recent Hopitalizations: No Recent Infectious Disease Expo: No Immunizations Up To Date Tetanus Booster (TDap): Unknown Pediatric: Yes Date of Pneumonia Vaccine: Apr 12, 2015 Date of Influenza Vaccine: Apr 12, 2015 Seasonal Allergies Seasonal Allergies: No Surgeries Yes (CARDIAC STENTS) Cardiac, Coronary Stent, Eye Surgery, 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 Respiratory No Currently Using CPAP: No Currently Using BIPAP: No Cardiovascular Yes (STENTS) Coronary Artery Disease, High Cholesterol, Hypertension Neurological No Stroke 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 System Sexually Transmitted Disease: No HIV/AIDS: No Female 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, 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 Genitourinary Yes Kidney Infection Gastrointestinal No Musculoskeletal No Arthritis Endocrine History of Endocrine Disorders: Yes Endocrine Disorders: Diabetes, Insulin dep, Hypothyroidsim HEENT History of HEENT Disorders: Yes HEENT Disorders: Cataract Loss of Vision: Denies Hearing Impairment: Hard of Hearing Cancer Yes Skin, Cervical Psychosocial History of Psychiatric Problem: Yes Behavioral Health Disorders: Anxiety, Depression Integumentary History of Skin or Integumenta: No Skin/Integumentary Disorders: Pruritis Blood Transfusions History of Blood Disorders: No Adverse Reaction to a Blood Tr: No Reviewed Nursing Assessment Reviewed/Agree w Nursing PMH: Yes Family Medical History Significant Family History: Heart Disease, Hypertension Family Hx: Family history: Alzheimer's disease 03 MOTHER Family history: Hypertension 03 FATHER 03 MOTHER Myocardial infarction 03 FATHER 03 MOTHER Review of Systems Constitutional: see HPI, weakness EENTM: no symptoms reported Respiratory: no symptoms reported Cardiovascular: chest pain Gastrointestinal: no symptoms reported Genitourinary: no symptoms reported Musculoskeletal: no symptoms reported Skin: no symptoms reported Psychiatric/Neurological: No Symptoms Reported All Other Systems Reviewed Negative Unless Noted: Yes Physical Exam Physical Exam Vital Signs Vital Sign - Last 12Hours 03/04/17 15:41 Temp 98.2 Pulse 96 Resp 18 B/P (MAP) 110/77 Pulse Ox 96 O2 Delivery Room Air Capillary Refill : Less Than 3 Seconds General Appearance: No Apparent Distress, WD/WN, Chronically ill Eyes: Bilateral Eye Normal Inspection, Bilateral Eye PERRL HEENT: PERRL/EOMI, Normal ENT Inspection, Pharynx Normal Neck: Full Range of Motion, Normal Inspection, Non Tender, Supple, Carotid Bruit Respiratory: Chest Non Tender, Lungs Clear, Normal Breath Sounds, No Accessory Muscle Use, No Respiratory Distress Cardiovascular: Regular Rate, Rhythm, No Edema, No Gallop, No JVD, Normal Peripheral Pulses, Systolic Murmur Gastrointestinal: Normal Bowel Sounds, No Organomegaly, No Pulsatile Mass, Non Tender, Soft Back: Normal Inspection, No CVA Tenderness, No Vertebral Tenderness Extremity: Normal Capillary Refill, Normal Inspection, Normal Range of Motion, Non Tender, No Calf Tenderness, No Pedal Edema Neurologic/Psychiatric: Alert, Oriented x3, No Motor/Sensory Deficits, Normal Mood/Affect Skin: Normal Color, Warm/Dry Lymphatic: No Adenopathy Results Results/Procedures Lab Laboratory Tests 03/04/17 15:48 03/05/17 05:15 Short Stay Diagnosis Discharge Diagnosis-Short Stay Admission Diagnosis Assessment: Chest pain Hypertension Prior stroke Long-term debility Diabetes mellitus Seizure disorder Hypothyroidism Final Discharge Diagnosis Assessment: Chest pain without source identified but stable for discharge Hypertension Prior stroke Long-term debility Diabetes mellitus Seizure disorder Hypothyroidism Conclusion Plan Plan: Follow up with Dr. Sosa next week DC with [facility] in 1 week. Clinical Quality Measures AMI/AHF: ASA po Prior to arrival: No DVT/VTE Risk/Contraindication: Risk Factor Score Per Nursin RFS Level Per Nursing on Admit: 4+=Very High MARI SANTANA DO Mar 05, 2017 10:50
[2017-03-05] MEDS ORDERED: NAPROXEN 250 MG (NAPROSYN) TABLET PO PRN (11:30)
[2017-03-05] MEDS ORDERED: ATORVASTATIN 40 MG (LIPITOR) TABLET PO SCH (21:00)
[2017-03-05] MEDS ORDERED: LEVETIRACETAM 500 MG (KEPPRA) TAB PO SCH (21:00)
[2017-03-05] MEDS ORDERED: DONEPEZIL 5 MG (ARICEPT) TAB PO SCH (21:00)
[2017-03-05] MEDS ORDERED: DIPYRIDAMOLE/ASA ER CAPSULE (AGGRENOX) PO SCH (21:00)
[2017-03-05] MEDS ORDERED: GABAPENTIN 300 MG (NEURONTIN) CAP PO SCH (21:00)
[2017-03-06] MEDS ORDERED: LEVOTHYROXINE 50 MCG (LEVOTHROID) TAB PO SCH (09:00)
[2017-03-06] MEDS ORDERED: SERTRALINE 100 MG (ZOLOFT) TAB PO SCH (09:00)
[2017-03-06] MEDS ORDERED: CARVEDILOL 3.125 MG (COREG) TABLET PO SCH (09:00)
[2017-03-06] MEDS ORDERED: amLODIPine 10 MG (NORVASC) TAB PO SCH (09:00)
[2017-03-06] MEDS ORDERED: metFORMIN 500 MG (GLUCOPHAGE) TAB PO SCH (09:00)
[2017-03-09] MEDS ORDERED: NON-FORMULARY MEDICATION 1 EA EA (Exenatide Microspheres (Bydureon Pen) 2 MG) INJ SCH ×2 (11:00)
== END 2017-03-05 10:56 | disposition home or self-care (01) ==
LOC: EDUNIT# 15:41 → ER 15:43 → 4TH 17:55 → UNDOADMOB 17:55 → 4TH 18:40 → UNDODISOB 03-05 11:40
PROVIDERS: ADMIT Internal Medicine; ATTEND Internal Medicine
DX: R07.9 Chest pain, unspecified (principal); I10 Essential (primary) hypertension; E11.9 Type 2 diabetes mellitus without complications; E03.9 Hypothyroidism, unspecified; G40.909 Epilepsy, unspecified, not intractable, without status epilepticus; I25.10 Atherosclerotic heart disease of native coronary artery without angina pectoris; Z79.4 Long term (current) use of insulin; Z79.84 Long term (current) use of oral hypoglycemic drugs; Z79.899 Other long term (current) drug therapy; Z95.5 Presence of coronary angioplasty implant and graft; Z85.820 Personal history of malignant melanoma of skin; Z86.73 Personal history of transient ischemic attack (TIA), and cerebral infarction without residual deficits
CPT/HCPCS: 36415; 71010; 71275; 80053; 80061; 82150; 82962; 83690; 83735; 83874; 84484; 85025; 85379; 85610; 85730; 93005; 93041; 96360; G0378

== ENCOUNTER → 2017-04-13 | Outpatient (CLI) | payer MEDICARE ==
[~2017-04-13] MED LIST changes: +AMLO10TA2 PO; +ASPI1CPM6 PO; +CARV3.12 PO; +EXEN2PEN INJ; +IBUP-30 PO; +METF750T2 PO; +NAPR220T66 PO
--- NOTE | 2017-04-13 10:12 | Diagnostic Imaging Report ---
EXAMINATION: Bilateral diagnostic mammogram with a Computer Aided Detection (CAD) system. COMPARISON: No prior studies are available for comparison. INDICATION: Palpable lump in the upper left breast. FINDINGS: There is a mass seen on the left MLO view that appears to be based along the pectoralis muscle and could be arising from the muscle itself or the deep tissue adjacent to the muscle. It is associated with lobulated borders and is not seen on the other views. It appears to have internal fat density. The right breast demonstrates no mass, architectural distortion, or suspicious cluster of calcifications. IMPRESSION: Large lobulated indeterminate mass, perhaps based on the pectoralis major, along the upper aspect of the left breast, only seen in the left MLO view. An ultrasound evaluation is pending. ACR BI-RADS Category 0: Incomplete. (Needs additional imaging evaluation). Result letter will be mailed to the patient. Note: At least 10% of breast cancer is not imaged by mammography. Dictated by: Dictated on workstation # [id number]
--- NOTE | 2017-04-13 10:20 | Diagnostic Imaging Report ---
EXAMINATION: Left breast ultrasound. INDICATION: Left breast mass. FINDINGS: There is a large lobulated mass centered around the 11 o'clock zone along the upper aspect of the left breast far from the nipple. It is 9.9 x 5.9 x 2.5 cm in size with smooth borders and homogeneous internal echotexture. Based on the fat content and the margins, this is most likely a benign lesion such as a breast hamartoma (or fibroadenolipoma). IMPRESSION: A 9.9 cm mass along the upper aspect of the left breast has features compatible with a breast hamartoma. Clinical assessment and mammographic and ultrasound followup in 3 months would be recommended to ensure stability. ACR BI-RADS Category 3: Probably benign findings. Dictated by: Dictated on workstation # [id number]
== END ==
LOC: RAD 07:34
PROVIDERS: ATTEND Family Medicine
DX: N63.21 Unspecified lump in the left breast, upper outer quadrant (principal)
CPT/HCPCS: 76641; 77066

== ENCOUNTER 2017-09-04 09:35 | Outpatient (RCR) | payer MEDICARE ==
[~2017-09-04 09:35] MED LIST changes: +ACHD5005 PO; -HYDR-3812 PO; -METO-270 PO; -METO-274 PO; +METO-370 PO; +METO-387 PO; +METO-395 PO
== END 2017-09-06 | disposition home or self-care (01) ==
PROVIDERS: ATTEND Family Medicine
DX: R53.81 Other malaise (principal); R29.6 Repeated falls

== ENCOUNTER 2017-11-12 12:58 | Outpatient (RCR) | payer MEDICARE, OTHER ==
[~2017-11-12 12:58] MED LIST changes: -METF500T4 PO; +METF500T5 PO
== END 2017-11-23 16:16 | disposition home or self-care (01) ==
PROVIDERS: ATTEND Family Medicine
DX: R53.81 Other malaise (principal); R29.6 Repeated falls

== ENCOUNTER → 2019-08-02 | Outpatient (CLI) | payer MEDICARE, OTHER ==
[~2019-08-02] MED LIST changes: -AMLO10TA2 PO; +AMLO10TA7 PO; +METF-397 PO; +METF500T19 PO; -METF500T5 PO; -METF500T8 PO; -METF750T2 PO; +METF750T45 PO; -METO-370 PO; -METO-387 PO; -METO-395 PO; +METO50TA7 PO; +MTP100TCR PO; -TRAM50TA2 PO; +TRM50T PO
--- NOTE | 2019-08-02 10:04 | Diagnostic Imaging Report ---
INDICATION: Cough for 3 weeks. Time of exam 9:49 AM Correlation is made with prior chest 03/04/2017. The heart size is stable. The lungs are clear. The pulmonary vascularity is normal. No infiltrate, effusion or pneumothorax is detected. Multilevel thoracic spondylosis is noted. IMPRESSION: No acute cardiopulmonary process is detected. Dictated by: Dictated on workstation # [id number]
== END ==
LOC: RAD 09:21
DX: R05 Cough (principal)
CPT/HCPCS: 71046

== ENCOUNTER → 2020-05-22 | Outpatient (CLI) | payer MEDICARE, OTHER ==
[~2020-05-22] MED LIST changes: -ACET160L29 PO; +ACET160L40 PO; +AMLO-251 PO; -AMLO10TA7 PO; +ASPI-1238 PO; -ASPI-983 PO; +CLN.1T PO; -CLON0.1T PO; +METF-865 PO; -METF500T19 PO
== END ==
LOC: WOUNDCARE 09:38
PROVIDERS: ATTEND Surgery
DX: I87.331 Chronic venous hypertension (idiopathic) with ulcer and inflammation of right lower extremity (principal); L97.212 Non-pressure chronic ulcer of right calf with fat layer exposed; E11.622 Type 2 diabetes mellitus with other skin ulcer; L89.520 Pressure ulcer of left ankle, unstageable; I70.232 Atherosclerosis of native arteries of right leg with ulceration of calf; F03.90 Unspecified dementia, unspecified severity, without behavioral disturbance, psychotic disturbance, mood disturbance, and anxiety
CPT/HCPCS: A6196; G0463; 99214

== ENCOUNTER → 2020-05-22 | Outpatient (CLI) | payer MEDICARE, OTHER ==
[2020-05-22 12:05] LABS: BASOPHILS % (AUTO) 0 % (0-10); EOSINOPHILS # (AUTO) 0.1 10^3/uL (0.0-0.3); EOSINOPHILS % (AUTO) 2 % (0-10); HEMATOCRIT 41 % (35-52); HEMOGLOBIN 12.9 g/dL (11.5-16.0); LYMPHOCYTES # (AUTO) 1.5 10^3/uL (1.0-4.0); LYMPHOCYTES % (AUTO) 21 % (12-44); MEAN CORPUSCULAR HEMOGLOBIN 28 pg (25-34); MEAN CORPUSCULAR HGB CONC 31 g/dL (32-36); MEAN CORPUSCULAR VOLUME 90 fL (80-99); MEAN PLATELET VOLUME 9.2 fL (9.0-12.2); MONOCYTES # (AUTO) 0.4 10^3/uL (0.0-1.0); MONOCYTES % (AUTO) 5 % (0-12); NEUTROPHILS # (AUTO) 4.9 10^3/uL (1.8-7.8); NEUTROPHILS % (AUTO) 71 % (42-75); PLATELET COUNT 270 10^3/uL (130-400); WHITE BLOOD COUNT 6.8 10^3/uL (4.3-11.0)
[2020-05-22 12:33] LABS: ALBUMIN 4.1 GM/DL (3.2-4.5); BILIRUBIN,TOTAL 0.4 MG/DL (0.1-1.0); CALCIUM 9.2 MG/DL (8.5-10.1); CREATININE SERUM 1.02 MG/DL (0.60-1.30); POTASSIUM 3.6 MMOL/L (3.6-5.0); TOTAL PROTEIN 7.6 GM/DL (6.4-8.2)
== END ==
LOC: LAB 11:44
PROVIDERS: ATTEND Surgery
DX: S81.801A Unspecified open wound, right lower leg, initial encounter (principal); S81.802A Unspecified open wound, left lower leg, initial encounter
CPT/HCPCS: 36415; 80053; 83036; 84134; 85025

== ENCOUNTER → 2020-05-29 | Outpatient (CLI) | payer MEDICARE, OTHER | LOC: WOUNDCARE 09:42 | PROVIDERS: ATTEND Surgery | DX: I87.321 Chronic venous hypertension (idiopathic) with inflammation of right lower extremity (principal); I96 Gangrene, not elsewhere classified; E11.622 Type 2 diabetes mellitus with other skin ulcer; L89.520 Pressure ulcer of left ankle, unstageable; I70.232 Atherosclerosis of native arteries of right leg with ulceration of calf; L97.212 Non-pressure chronic ulcer of right calf with fat layer exposed; F03.90 Unspecified dementia, unspecified severity, without behavioral disturbance, psychotic disturbance, mood disturbance, and anxiety | CPT/HCPCS: A6260; G0463; 99213 ==

== ENCOUNTER → 2020-05-29 | Outpatient (CLI) | payer MEDICARE, OTHER ==
--- NOTE | 2020-05-29 12:41 | Diagnostic Imaging Report ---
EXAMINATION: US Lower Extremity Arterial Duplex Bilateral. TECHNIQUE: Multiple Real-time grayscale images were obtained over both lower extremities in various projections. Additional duplex Doppler and color Doppler images were also obtained. HISTORY: Atherosclerosis, left ankle ulceration. COMPARISON: None available. FINDINGS: Right lower extremity: Biphasic flow is seen within the right common femoral, superficial femoral, and popliteal arteries. Abnormal monophasic flow is seen within the anterior tibial, posterior tibial, peroneal, and dorsalis pedis arteries. Mild plaquing is seen in the right lower extremity. There is increased velocity within the anterior tibial artery suggesting a hemodynamically significant stenosis at this level. Dampened velocities are seen distally. Left lower extremity: Biphasic flow is seen within the left common femoral, superficial femoral, and popliteal arteries. Abnormal monophasic flow is seen within the left anterior tibial, posterior tibial, peroneal, and dorsalis pedis arteries. Mild plaquing is seen in the left lower extremity. There are no areas of focal narrowing or hemodynamically significant plaque formation identified. IMPRESSION: 1. Elevated velocities within the right anterior tibial artery with decreased, dampened velocities distally suggesting a hemodynamically significant stenosis at this level. 2. Abnormal monophasic waveforms are seen below the knee bilaterally. Dictated by: Dictated on workstation # [id number]
== END ==
LOC: RAD 10:30
PROVIDERS: ATTEND Surgery
DX: I87.331 Chronic venous hypertension (idiopathic) with ulcer and inflammation of right lower extremity (principal); E11.622 Type 2 diabetes mellitus with other skin ulcer; L89.520 Pressure ulcer of left ankle, unstageable; I70.232 Atherosclerosis of native arteries of right leg with ulceration of calf; L97.212 Non-pressure chronic ulcer of right calf with fat layer exposed; F03.90 Unspecified dementia, unspecified severity, without behavioral disturbance, psychotic disturbance, mood disturbance, and anxiety
CPT/HCPCS: 93925

== ENCOUNTER 2020-06-05 09:00 | Day surgery (SDC) | payer MEDICARE, OTHER ==
[~2020-06-05] VITALS: Ht 166 cm; Wt 75.0 kg
[2020-06-05] MEDS: NS IV 1000 ML 1,000 ML IV SCH ×3 (07:22→18:46)
[2020-06-05 07:23] VITALS: BP 170/86
[2020-06-05 07:30] LABS: HEMOGLOBIN 12.4 g/dL (11.5-16.0); MEAN PLATELET VOLUME 9.3 fL (9.0-12.2); WHITE BLOOD COUNT 8.4 10^3/uL (4.3-11.0)
[2020-06-05 07:46] LABS: INR 0.9 (0.8-1.4); PROTHROMBIN TIME PATIENT 12.8 SEC (12.2-14.7)
[2020-06-05 07:55] LABS: ALBUMIN 3.9 GM/DL (3.2-4.5); BILIRUBIN,TOTAL 0.4 MG/DL (0.1-1.0); CALCIUM 9.1 MG/DL (8.5-10.1); CREATININE SERUM 0.97 MG/DL (0.60-1.30); POTASSIUM 3.9 MMOL/L (3.6-5.0); TOTAL PROTEIN 7.1 GM/DL (6.4-8.2)
[~2020-06-05 09:00] MED LIST changes: +CANA100T PO; +GABA300C PO; +HEParin (CATH LAB) 2,000 ML IV ONE; +LIDOCAINE 1% INJ 20 ML 20 ML VIAL ONE; +METF-399 PO; +MIDAZOLAM 5 MG/5 ML (VERSED) VIAL ONE; +NS IV 1000 ML 1,000 ML ONE; +fentaNYL INJECTION 100 MCG/2 ML AMP ONE
[2020-06-05] MEDS ORDERED: NITRO DRIP 25000 MCG/D5W 250 ML IV ONE (09:22)
[2020-06-05] MEDS ORDERED: HEParin 1000 UNIT/ML (10ML VIAL) FOR BOLUS ONE (09:22)
[2020-06-05] MEDS ORDERED: fentaNYL INJECTION 100 MCG/2 ML AMP ONE (10:56)
[2020-06-05] MEDS ORDERED: ASPIRIN 81 MG CHEW (CHILDREN'S ASA) ONE (10:58)
[2020-06-05] MEDS ORDERED: CLOPIDOGREL 300 MG (PLAVIX) TABLET PO ONE (10:58)
--- NOTE | 2020-06-05 11:32 | Cardiac Procedure Note-CS/ASA ---
Pre-Procedure Note Pre-Op Procedure Note H&P Reviewed The H&P was reviewed, patient examined and no changes noted. Date H&P Reviewed: Jun 05, 2020 Time H&P Reviewed: 08:45 Conscious Sedation Pre-Proced Time 08:45 ASA Score 3 For ASA 3 and 4: Consider anesthesia and medical clearance. Also, for patients with a history of failed moderate sedation consider anesthesia. Airway Lungs Heart ASA score ASA 1: a normal healthy patient ASA 2: a patient with a mild systemic disease (mid diabetes, controlled hypertension, obesity ASA 3: a patient with a severe systemic disease that limits activity (angina, COPD, prior Myocardial infarction) ASA 4: a patient with an incapacitating disease that is a constant threat to life (CHF, renal failure) ASA 5: a moribund patient not expected to survive 24 hrs. (ruptured aneurysm) ASA 6: a declared brain- patient whose organs are being harvested. For emergent operations, add the letter E after the classification Mallampati Classification Grade 2 Sedation Plan Analgesia, Amnesia, Plan communicated to team members, Discussed options with patient/fam, Discussed risks with patient/fam The patient is an appropriate candidate to undergo the planned procedure, sedation, and anesthesia. The patient immediately re-assessed prior to indication. RAYMOND ALEJANDRA MD FACP FAC CCDS Jun 05, 2020 11:32
--- NOTE | 2020-06-05 11:40 | NUR ---
Pt arrived to ICU room 9 at this time from biological lab technician. Left groin site, mynx, clean, dry et intact upon arrival. Pt alert et oriented on arrival. Education provided on bedrest and restrictions post cath. Wounds noted to BLE. Wound care consult placed by this RN. VSS at this time. Will continue to monitor.
[2020-06-05] MEDS ORDERED: ACETAMINOPHEN 325 MG TABLET PO PRN (11:45)
[2020-06-05] MEDS ORDERED: PATIENT MAY USE OWN MEDS, ALL PO SCH (11:45)
[2020-06-05] MEDS ORDERED: NON-FORMULARY MEDICATION 1 EA EA (Exenatide Microspheres (Bydureon Pen) 2 MG) INJ SCH (11:45)
[2020-06-05] MEDS: inSUlin ASPART (NovoLOG) 1 UNIT/0.01 ML (CHARGE PER UNIT) SC SCH ×2 (14:18→20:28)
[2020-06-05] MEDS: GABAPENTIN 300 MG (NEURONTIN) CAP PO SCH ×2 (14:18→20:29)
--- NOTE | 2020-06-05 17:24 | OPERATIVE REPORT ---
DATE OF SERVICE: 06/05/2020 PERIPHERAL ANGIOGRAPHY AND INTERVENTION REPORT The patient is an 84-year-old lady, who has bilateral peripheral arterial disease and critical limb ischemia, which is preventing wound healing in the legs. Noninvasive testing is indicated severe distal peripheral arterial disease. Informed consent was obtained for peripheral angiography and possible ad hoc intervention. DESCRIPTION OF PROCEDURE: She was brought to the cardiac catheterization laboratory in a fasting state. Right groin was prepared and draped in the usual sterile fashion. Lidocaine 1% was used for local anesthesia. Modified Seldinger technique was used to advance a 5-Moroccan sheath into the left femoral artery. A pigtail catheter was placed at the level of L1 and abdominal aortic angiography was performed. The pigtail catheter was then pulled back down to the level of the aortoiliac bifurcation and bilateral leg artery angiography was performed with runoff down to the level of the thigh. We removed the pigtail catheter and used a 5-Moroccan crossover catheter to advance a 0.035-inch wire into the right superficial (contralateral) artery. We then removed the crossover catheter and the sheath and advanced a long 6-Moroccan sheath, the tip of which was placed in the right superficial femoral artery and selective angiography of the right superficial femoral artery was performed with runoff down to the level of the ankle. We subsequently carried out percutaneous intervention to the tibioperoneal system on the right side. PERCUTANEOUS INTERVENTION OF THE RIGHT PERONEAL ARTERY: We used a Command wire to cross the lesion in the proximal right peroneal artery and the tip was placed in the distal vessel. The ballooning was carried out with a 2 mm balloon in the proximal portion of the vessel. We were not able to advance the balloon beyond the mid portion of the vessel, but there is a complete occlusion. We were also not able to advance the wire past this complete occlusion. Therefore, the balloon angioplasty was done limited to the proximal portion of the peroneal artery and introduced 90% stenosis to less than 50%. PERCUTANEOUS INTERVENTION TO THE RIGHT ANTERIOR TIBIAL ARTERY: We were initially not able to advance the Command wire into the right anterior tibial artery due to considerable angulation that is branching from the popliteal artery. We were able to wire it with the help of a Mini catheter. The wire was advanced to the level of the foot and we then carried out balloon angioplasty with a 2 mm balloon throughout the course of the proximal, mid and distal anterior tibia. This resulted in improvement of stenosis from greater than 95% to approximately 50% or less. However, there appeared to be occlusion in the very distal portion of the anterior tibial, probably resulting from dissection. We removed the Command wire and then used a BMW wire to cross the area of dissection and appropriately positioned the distal part of the wire into the very distal part of the dorsalis pedis and we were then able to carry out balloon angioplasty across the site of dissection. We were able to successfully tack the dissection and flow was restored into the distal posterior tibial. At this point, it was felt that further balloon angioplasty would not be of further benefit and the angioplasty equipment was removed. Mynx was used to achieve hemostasis at the site of sheath entry into the left superficial femoral artery. The patient tolerated the procedure well. ABDOMINAL AORTIC ANGIOGRAPHY: Abdominal aortic angiography did not indicate abdominal aortic aneurysm, dissection on abdominal aortic stenosis. Renal arteries are identified and do not exhibit significant disease. The aortoiliac junction exhibits calcification, but no significant obstructive disease. BILATERAL LEG ARTERY ANGIOGRAPHY: Bilateral leg artery angiography indicates that the iliac and the femoral arteries are intact on both sides as are the popliteal artery. However, on both sides, there is severe disease of the tibioperoneal system. On the right side, there is proximal occlusion of the posterior tibial, mid vessel occlusion of the peroneal and severe diffuse disease of the anterior tibial. Successful balloon angioplasty was carried out to the proximal portion of the peroneal on the right side and to the entire length of the right anterior tibial. On the left side, there is proximal to mid vessel occlusion of the posterior tibial and the peroneal arteries and there is severe diffuse disease of the anterior tibial. This side has not been intervened on. CONCLUSIONS: 1. Severe distal disease within the legs involving the tibioperoneal system. 2. Successful balloon angioplasty of the right anterior tibial with reduction of stenosis to less than 50%. 3. Successful balloon angioplasty of the proximal right peroneal which reduced the stenosis to less than 50%, but the mid peroneal remains chronically occluded. 4. Chronically occluded right posterior tibial to which intervention was not attempted. 5. Chronically proximally occluded left posterior tibial and peroneal arteries and severe diffuse disease of the anterior tibial to which percutaneous intervention was not attempted at this time. DISCUSSION AND RECOMMENDATIONS: Dual antiplatelet therapy has been added. Percutaneous intervention to the right side is planned at a later date. Job ID: [id number] DocumentID: [id number] Dictated Date: 06/05/2020 11:24:17 Take Up Supervisor Date: 06/05/2020 12:32:03 Dictated By: RAYMOND ALEJANDRA MD, MA, FACP, FACC, MTDD
--- NOTE | 2020-06-05 18:36 | Wound Care Assessment ---
Wound Care Assessment Date Seen by Provider: Jun 05, 2020 Time Seen by Provider: 17:30 Chief Complaint R calf and L ankle wounds. HPI the patient is an 84 year old female known to me from outpatient clinic, with above wounds. S/P revascularization with improved circulation to R leg. Dressings ordered. Will follow-up in [facility]. Smoking Status: Never a Smoker Recreational Drug Use: No Alcohol Use: Denies Use Exam Vital Signs Date Time Temp Pulse Resp B/P (MAP) Pulse Ox O2 Delivery O2 Flow Rate FiO2 06/05/20 16:13 35.8 06/05/20 16:00 59 22 159/109 97 Room Air Capillary Refill : Less Than 3 Seconds Results Laboratory Tests 06/05/20 07:24: White Blood Count 8.4, Red Blood Count 4.41, Hemoglobin 12.4, Hematocrit 40, Mean Corpuscular Volume 90, Mean Corpuscular Hemoglobin 28, Mean Corpuscular Hemoglobin Concent 31L, Red Cell Distribution Width 14.3, Platelet Count 256, Mean Platelet Volume 9.3, Prothrombin Time 12.8, INR Comment 0.9, Activated Partial Thromboplast Time 30, Sodium Level 141, Potassium Level 3.9, Chloride Level 105, Carbon Dioxide Level 26, Anion Gap 10, Blood Urea Nitrogen 19H, Creatinine 0.97, Estimat Glomerular Filtration Rate 55, BUN/Creatinine Ratio 20, Glucose Level 117H, Calcium Level 9.1, Corrected Calcium 9.2, Total Bilirubin 0.4, Aspartate Amino Transf (AST/SGOT) 14, Alanine Aminotransferase (ALT/SGPT) 9, Alkaline Phosphatase 65, Total Protein 7.1, Albumin 3.9, Triglycerides Level 311H, Cholesterol Level 268H, LDL Cholesterol Direct 167H, VLDL Cholesterol 62H, HDL Cholesterol 47 DANTE COBB MD Jun 05, 2020 18:36
[2020-06-05] MEDS: LEVETIRACETAM 500 MG (KEPPRA) TAB PO SCH (20:29)
[2020-06-05] MEDS: DOCUSATE SODIUM 100 MG (COLACE) CAP PO SCH (20:29)
[2020-06-05] MEDS: CARVEDILOL 3.125 MG (COREG) TABLET PO SCH (20:29)
[2020-06-06 03:49] LABS: HEMOGLOBIN 11.2 g/dL (11.5-16.0); MEAN PLATELET VOLUME 9.2 fL (9.0-12.2); WHITE BLOOD COUNT 9.7 10^3/uL (4.3-11.0)
[2020-06-06] MEDS: NS IV 1000 ML 1,000 ML IV SCH ×2 (03:56)
[2020-06-06 04:00] LABS: CHLORIDE 106 MMOL/L (98-107); POTASSIUM 3.8 MMOL/L (3.6-5.0); SODIUM 141 MMOL/L (135-145)
[2020-06-06 04:01] LABS: CALCIUM 8.3 MG/DL (8.5-10.1)
[2020-06-06 04:02] LABS: GLUCOSE 118 MG/DL (70-105)
[2020-06-06 04:03] LABS: CARBON DIOXIDE 24 MMOL/L (21-32)
[2020-06-06 04:06] LABS: CREATININE SERUM 0.89 MG/DL (0.60-1.30); GFR ESTIMATED > 60
[2020-06-06 04:07] LABS: BUN/CREATININE RATIO 19
[2020-06-06] MEDS: inSUlin ASPART (NovoLOG) 1 UNIT/0.01 ML (CHARGE PER UNIT) SC SCH ×2 (07:00→10:15)
--- NOTE | 2020-06-06 08:00 | Progress Note - Cardiology ---
Cardiology SOAP Progress Note Objective: I&O/Vital Signs 06/05/20 06/05/20 06/06/20 06/06/20 20:31 23:47 00:00 01:00 Temp 36.2 Pulse 55 53 Resp 16 B/P (MAP) 164/72 155/73 Pulse Ox 96 O2 Delivery Room Air Room Air 06/06/20 03:30 O2 Delivery Room Air 06/06/20 00:00 Intake Total 775 ml Output Total 1250 ml Balance -475 ml Weight (Pounds): 170 Weight (Ounces): 2.0 Weight (Calculated Kilograms): 77.235338 Results/Procedures: Labs Laboratory Tests 06/05/20 20:19: Glucometer 143H 06/06/20 03:39: White Blood Count 9.7, Red Blood Count 4.01, Hemoglobin 11.2L, Hematocrit 36, Mean Corpuscular Volume 89, Mean Corpuscular Hemoglobin 28, Mean Corpuscular Hemoglobin Concent 32, Red Cell Distribution Width 14.3, Platelet Count 228, Mean Platelet Volume 9.2, Sodium Level 141, Potassium Level 3.8, Chloride Level 106, Carbon Dioxide Level 24, Anion Gap 11, Blood Urea Nitrogen 17, Creatinine 0.89, Estimat Glomerular Filtration Rate > 60, BUN/Creatinine Ratio 19, Glucose Level 118H, Calcium Level 8.3L Microbiology 06/05/20 MRSA Screen - Final, Complete MRSA not isolated Laboratory Tests 06/05/20 07:24 06/06/20 03:39 Procedures S/P peripheral angiogram with intervention. Please refer to Dr. Sosa's report of 06-05-2020 for details A/P: Assessment: PAD - Severe distal disease within the legs following the tibioperoneal system. Successful balloon angioplasty of the right anterior tibial with reduction of stenosis to less than 50%. Successful balloon angioplasty of the proximal right peroneal which reduced the stenosis to less than 50%, but the mid peroneal remains occluded. Chronically occluded right posterior tibial to which intervention was not attempted. Chronically proximally occluded left posterior tibial and peroneal arteries and severe diffuse disease of the anterior tibial to which percutaneous intervention was not attempted at this time. Per peripheral angiogram of Jun 05, 2020 Critical limb ischemia, bilateral S/p multiple strokes in early to mid 2015; now as bilat leg weakness that is more on the L, poor balance, and loss of R visual field. S/p L TKR in Jul 2015 CAD - Cardiac cath of 06-19-15 showed a widely patent stent in the prox LAD which is known to be Promus 2.5 x 8 mm stent placed in 2009. The mid LAD has tandem up to 50% lesions across which the FFR is 0.85, indicateing hemodynamic insignificance. The RCA has 40 to 50% stenoses in its prox and distal portions. LVEF 60-65%. Normal LVEDP. No significant MR. Echo 06/04/15 showed LVEF 65-70%, mod conc LVH, mild AoV sclerosis, mild AI and TR, mild diastolic dysfunction, PASP 25 mmHg DM II h/o hyperlipidemia,managed and followed by her PCP Mild carotid arterial disease diagnosed at [facility] at the time of CVA in October 2015, per patient report Plan: Dual antiplatelet therapy has been added. Percutaneous intervention to the right side is planned at a later date. Stop Aggrenox Continue all other home medications Restart Metformin on Thursday, June 08, 2020 Continue to follow with Dr. Lira of wound care services BLANK LUU Jun 06, 2020 08:00
[2020-06-06] MEDS ORDERED: CLOP75TA28 PO (08:03)
--- NOTE | 2020-06-06 08:04 | Discharge Inst-Cardiology ---
Discharge Inst-Cardiac Discharge Medications New Medications: Clopidogrel Bisulfate (Clopidogrel) 75 Mg Tablet 75 MG PO DAILY, #90 TAB 3 Refills Continued Medications: Aspirin (Aspirin) 81 Mg Tab.chew 81 MG PO DAILY, TAB Atorvastatin Calcium (Atorvastatin Calcium) 40 Mg Tablet 40 MG PO HS, TAB Canagliflozin (Invokana) 100 Mg Tablet 100 MG PO DAILY, TAB Carvedilol (Coreg) 3.125 Mg Tablet 3.125 MG PO BID, TAB Docusate Sodium (Docusate Sodium) 100 Mg Capsule 100 MG PO BID, CAP Exenatide Microspheres (Bydureon Pen) 2 Mg/0.65 Ml Pen.injctr 2 MG INJ THURS, EA Gabapentin (Neurontin) 300 Mg Capsule 300 MG PO TID, CAP Levetiracetam (Levetiracetam) 500 Mg Tablet 500 MG PO BID, TAB Metformin HCl (Metformin HCl) 1,000 Mg Tablet 1000 MG PO BID, TAB Sertraline HCl (Sertraline HCl) 100 Mg Tablet 100 MG PO DAILY, TAB Tramadol HCl (Tramadol HCl) 50 Mg Tablet 50 MG PO Q4H PRN for PAIN-MILD (1-4), TAB Discontinued Medications: Aspirin/Dipyridamole (Aspirin-Dipyridam ER 25-200 mg) 1 Each Cpmp.12hr 1 CAP PO BID, CAP Patient Instructions Patient Instructions: DO NOT RESTART METFORMIN UNTIL MONDAY, JUNE 08, 2020 ARRIVE AT 9:00 TO OUT PT REGISTRATION ON FRIDAY, JUNE 12, 2020 FOR PROCEDURE AT 11:00 NOTHING TO EAT OR DRINK AFTER MIDNIGHT, THE NIGHT BEFORE YOUR PROCEDURE DO NOT TAKE YOUR METFORMIN OR INVOKANA ON FRIDAY, JUNE 12, 2020 YOU MAY TAKE YOUR OTHER MORNING MEDICATIONS THE MORNING OF THE PROCEDURE WITH A SMALL SIP OF WATER PLEASE WASH WITH BODYWASH FROM THE NECK DOWN THE MORNING OF YOUR PROCEDURE (STOP BY DR. ALEJANDRA'S OFFICE TO BRIM POUNCER BODY WASH) BRING YOUR MEDICATIONS WITH YOU IN THE ORIGINAL CONTAINERS FROM THE PHARMACY THAT INCLUDES YOUR MEDICATION STRENGTH, DOSAGE AND DIRECTIONS BRING AN OVER NIGHT BAG WITH YOU YOU WILL NEED SOMEONE TO DRIVE YOU HOME IF YOU HAVE ANY QUESTIONS OR CONCERNS, PLEASE CALL THE OFFICE AT [phone] BLANK LUU Jun 06, 2020 08:04
[2020-06-06] MEDS: LEVETIRACETAM 500 MG (KEPPRA) TAB PO SCH (08:48)
[2020-06-06] MEDS: DOCUSATE SODIUM 100 MG (COLACE) CAP PO SCH (08:48)
[2020-06-06] MEDS: CARVEDILOL 3.125 MG (COREG) TABLET PO SCH (08:48)
[2020-06-06] MEDS: GABAPENTIN 300 MG (NEURONTIN) CAP PO SCH (08:49)
[2020-06-06] MEDS ORDERED: ASPIRIN 81 MG CHEW (CHILDREN'S ASA) PO SCH (09:00)
[2020-06-06] MEDS ORDERED: SERTRALINE 100 MG (ZOLOFT) TAB PO SCH (09:00)
[2020-06-06] MEDS ORDERED: CLOPIDOGREL 75 MG (PLAVIX) TABLET PO SCH (09:00)
[2020-06-06] MEDS ORDERED: NON-FORMULARY MEDICATION 1 EA EA (Canagliflozin (Invokana) 100 MG) PO SCH (09:00)
--- NOTE | 2020-06-06 10:06 | Progress Note - Cardiology ---
Cardiology SOAP Progress Note Subjective: No cp or palp or syncope or shortness of breath No groin or leg discomfort No n/v/d Wishes to go home Objective: I&O/Vital Signs 06/05/20 06/06/20 06/06/20 06/06/20 23:47 00:00 01:00 03:30 Temp 36.2 Pulse 55 53 Resp 16 B/P (MAP) 155/73 Pulse Ox 96 O2 Delivery Room Air Room Air Room Air 06/06/20 06/06/20 06/06/20 06:34 07:30 08:00 Temp 36.5 Pulse 50 59 Resp 16 B/P (MAP) 147/83 Pulse Ox 93 O2 Delivery Room Air Room Air 06/06/20 00:00 Intake Total 775 ml Output Total 1250 ml Balance -475 ml Weight (Pounds): 170 Weight (Ounces): 2.0 Weight (Calculated Kilograms): 77.957795 Condition: other (DP palpable on the R, the leg that was intervened on on 06/05/20) Swelling: without swelling Bruising: moderated bruising Constitutional: AAO x 3, well-developed, well-nourished Respiratory: other (good bilateral air entry) Cardiovascular: regular rate-rhythm, S1 and S2, systolic murmur (soft VIVIEN at cardiac base) Gastrointestional: No tender, No guarding, No rebound; audible bowel sounds Extremities: No clubbing, No cyanosis Neurologic/Psychiatric: oriented x 3, other (L-sided weakness (chronic)) Skin: No rash on exposed areas; other (small ulceration on the lat aspect of R leg and L ankle) Results/Procedures: Labs Laboratory Tests 06/05/20 20:19: Glucometer 143H 06/06/20 03:39: White Blood Count 9.7, Red Blood Count 4.01, Hemoglobin 11.2L, Hematocrit 36, Mean Corpuscular Volume 89, Mean Corpuscular Hemoglobin 28, Mean Corpuscular Hemoglobin Concent 32, Red Cell Distribution Width 14.3, Platelet Count 228, Mean Platelet Volume 9.2, Sodium Level 141, Potassium Level 3.8, Chloride Level 106, Carbon Dioxide Level 24, Anion Gap 11, Blood Urea Nitrogen 17, Creatinine 0.89, Estimat Glomerular Filtration Rate > 60, BUN/Creatinine Ratio 19, Glucose Level 118H, Calcium Level 8.3L Microbiology 06/05/20 MRSA Screen - Final, Complete MRSA not isolated A/P: Assessment: PAD - Peripheral angio and intervention on 06/05/20 - Severe distal disease within the legs involving the tibioperoneal system. Successful balloon angioplasty of the right anterior tibial with reduction of stenosis to less than 50%. Successful balloon angioplasty of the proximal right peroneal which reduced the stenosis to less than 50%, but the mid peroneal remains occluded. Chronically occluded right posterior tibial to which intervention was not attempted. Chronically proximally occluded left posterior tibial and peroneal arteries and severe diffuse disease of the anterior tibial to which percutaneous intervention was not attempted at this time. Critical limb ischemia, bilateral S/p multiple strokes in early to mid 2015; now as bilat leg weakness that is more on the L, poor balance, and loss of R visual field. S/p L TKR in Jul 2015 CAD - Cardiac cath of 06-19-15 showed a widely patent stent in the prox LAD which is known to be Promus 2.5 x 8 mm stent placed in 2009. The mid LAD has tandem up to 50% lesions across which the FFR is 0.85, indicateing hemodynamic insignificance. The RCA has 40 to 50% stenoses in its prox and distal portions. LVEF 60-65%. Normal LVEDP. No significant MR. Echo 06/04/15 showed LVEF 65-70%, mod conc LVH, mild AoV sclerosis, mild AI and TR, mild diastolic dysfunction, PASP 25 mmHg DM II h/o hyperlipidemia,managed and followed by her PCP Mild carotid arterial disease diagnosed at [facility] at the time of CVA in October 2015, per patient report Plan: Dual antiplatelet therapy has been added. Percutaneous intervention to the right side is planned at a later date. Stop Aggrenox Continue all other home medications Restart Metformin on Thursday, June 08, 2020 Continue to follow with Dr. Lira of wound care services RAYMOND ALEJANDRA MD [facility] CCDS Jun 06, 2020 10:06
--- NOTE | 2020-06-06 12:50 | NUR ---
Patient d/c home with daughter in private vehicle. Discharge instructions sent with patient.
== END 2020-06-06 12:50 | disposition home or self-care (01) ==
LOC: CATH 09:00 → ICU 11:33 → CSD 16:39 → CATH 06-06 12:50
PROVIDERS: ATTEND Internal Medicine Cardiovascular Disease
DX: E11.51 Type 2 diabetes mellitus with diabetic peripheral angiopathy without gangrene (principal); I70.223 Atherosclerosis of native arteries of extremities with rest pain, bilateral legs; I25.10 Atherosclerotic heart disease of native coronary artery without angina pectoris; E78.2 Mixed hyperlipidemia; I65.23 Occlusion and stenosis of bilateral carotid arteries; I11.9 Hypertensive heart disease without heart failure; Z79.899 Other long term (current) drug therapy; Z79.84 Long term (current) use of oral hypoglycemic drugs; Z86.73 Personal history of transient ischemic attack (TIA), and cerebral infarction without residual deficits
CPT/HCPCS: 36247; 37228; 37232; 75625; 75716; 80048; 80053; 80061; 82962 ×2; 85027 ×2; 85610; 85730; 87081; 93005 ×2; C1725; C1760; C1769 ×3; C1887 ×3; C1894 ×2; 36415

== ENCOUNTER → 2020-06-12 | Day surgery (SDC) | payer MEDICARE, OTHER ==
[~2020-06-12] VITALS: Ht 157 cm; Wt 75.0 kg
[~2020-06-12] MED LIST changes: +ALBU1.25 INH; +CLOP75TA28 PO; +HEParin (CATH LAB) 0 ML IV ONE; -HEParin (CATH LAB) 2,000 ML IV ONE; -MIDAZOLAM 5 MG/5 ML (VERSED) VIAL ONE; +NS IV 1000 ML 0 ML ONE; +NS IV 1000 ML 1,000 ML IV SCH; -NS IV 1000 ML 1,000 ML ONE; -fentaNYL INJECTION 100 MCG/2 ML AMP ONE
[2020-06-12 08:44] VITALS: BP 160/78
[2020-06-12 09:07] LABS: HEMOGLOBIN 12.8 g/dL (11.5-16.0); MEAN PLATELET VOLUME 9.5 fL (9.0-12.2); WHITE BLOOD COUNT 9.5 10^3/uL (4.3-11.0)
[2020-06-12 09:21] LABS: INR 0.9 (0.8-1.4); PROTHROMBIN TIME PATIENT 12.3 SEC (12.2-14.7)
[2020-06-12 09:27] LABS: ALBUMIN 4.2 GM/DL (3.2-4.5); BILIRUBIN,TOTAL 0.5 MG/DL (0.1-1.0); CALCIUM 9.3 MG/DL (8.5-10.1); CREATININE SERUM 0.94 MG/DL (0.60-1.30); POTASSIUM 3.8 MMOL/L (3.6-5.0)
== END ==
LOC: CATH 08:34
PROVIDERS: ATTEND Internal Medicine Cardiovascular Disease
DX: I25.10 Atherosclerotic heart disease of native coronary artery without angina pectoris (principal); E11.9 Type 2 diabetes mellitus without complications; I10 Essential (primary) hypertension; E78.00 Pure hypercholesterolemia, unspecified; Z79.899 Other long term (current) drug therapy; Z86.73 Personal history of transient ischemic attack (TIA), and cerebral infarction without residual deficits; Z95.5 Presence of coronary angioplasty implant and graft; Z85.828 Personal history of other malignant neoplasm of skin; Z85.41 Personal history of malignant neoplasm of cervix uteri; Z90.710 Acquired absence of both cervix and uterus
CPT/HCPCS: 36415; 80053; 80061; 85027; 85610; 85730

== ENCOUNTER 2020-06-19 10:00 | Day surgery (SDC) | payer MEDICARE, OTHER ==
[2020-06-19] VITALS (12 sets, daily range): BP systolic 122–160; BP diastolic 67–93
[~2020-06-19] VITALS: Ht 162.6 cm; Wt 75.0 kg
[2020-06-19 08:33] LABS: HEMOGLOBIN 12.1 g/dL (11.5-16.0); MEAN PLATELET VOLUME 9.2 fL (9.0-12.2); WHITE BLOOD COUNT 9.4 10^3/uL (4.3-11.0)
[2020-06-19 08:57] LABS: PROTHROMBIN TIME PATIENT 13.1 SEC (12.2-14.7)
[2020-06-19 09:05] LABS: BILIRUBIN,TOTAL 0.4 MG/DL (0.1-1.0); CALCIUM 9.2 MG/DL (8.5-10.1); POTASSIUM 4.3 MMOL/L (3.6-5.0); TOTAL PROTEIN 7.5 GM/DL (6.4-8.2)
[~2020-06-19 10:00] MED LIST changes: -HEParin (CATH LAB) 0 ML IV ONE; +HEParin (CATH LAB) 2,000 ML IV ONE; +MIDAZOLAM 5 MG/5 ML (VERSED) VIAL ONE; -NS IV 1000 ML 0 ML ONE; +NS IV 1000 ML 1,000 ML ONE; +fentaNYL INJECTION 100 MCG/2 ML AMP ONE
--- NOTE | 2020-06-19 10:46 | Cardiac Procedure Note-CS/ASA ---
Pre-Procedure Note Pre-Op Procedure Note H&P Reviewed The H&P was reviewed, patient examined and no changes noted. Date H&P Reviewed: Jun 19, 2020 Time H&P Reviewed: 10:45 Conscious Sedation Pre-Proced Time 10:45 ASA Score 4 For ASA 3 and 4: Consider anesthesia and medical clearance. Also, for patients with a history of failed moderate sedation consider anesthesia. Airway Lungs Heart ASA score ASA 1: a normal healthy patient ASA 2: a patient with a mild systemic disease (mid diabetes, controlled hypertension, obesity ASA 3: a patient with a severe systemic disease that limits activity (angina, COPD, prior Myocardial infarction) ASA 4: a patient with an incapacitating disease that is a constant threat to life (CHF, renal failure) ASA 5: a moribund patient not expected to survive 24 hrs. (ruptured aneurysm) ASA 6: a declared brain- patient whose organs are being harvested. For emergent operations, add the letter E after the classification Mallampati Classification Grade 2 Sedation Plan Analgesia, Amnesia, Plan communicated to team members, Discussed options with patient/fam, Discussed risks with patient/fam The patient is an appropriate candidate to undergo the planned procedure, sedation, and anesthesia. The patient immediately re-assessed prior to indication. RAYMOND ALEJANDRA MD FACP FAC CCDS Jun 19, 2020 10:46
[2020-06-19] MEDS ORDERED: NITRO DRIP 25000 MCG/D5W 0 ML IV ONE (11:01)
[2020-06-19] MEDS ORDERED: HEParin 1000 UNIT/ML (10ML VIAL) FOR BOLUS ONE (11:01)
[2020-06-19] MEDS ORDERED: PATIENT MAY USE OWN MEDS, ALL PO SCH (12:30)
[2020-06-19] MEDS ORDERED: NON-FORMULARY MEDICATION 1 EA EA (Exenatide Microspheres (Bydureon Pen) 2 MG) INJ SCH (12:30)
[2020-06-19] MEDS ORDERED: RT-ALBUTEROL SULF 2.5 MG/3 ML PRE-MIX VIAL INH PRN (12:30)
[2020-06-19] MEDS ORDERED: ACETAMINOPHEN 325 MG TABLET PO PRN (12:30)
[2020-06-19] MEDS ORDERED: ASPIRIN 81 MG CHEW (CHILDREN'S ASA) ONE (12:33)
[2020-06-19] MEDS ORDERED: CLOPIDOGREL 75 MG (PLAVIX) TABLET ONE (12:33)
--- NOTE | 2020-06-19 12:45 | OPERATIVE REPORT ---
DATE OF SERVICE: 06/19/2020 PERIPHERAL ANGIOGRAPHY AND INTERVENTION REPORT The patient is an 84-year-old lady, who has nonhealing wounds of the leg. Approximately 3 weeks ago, she underwent intervention to the right leg and the wound has been healing. She had at that time, she was noted to have severe trifurcation disease of the left leg. She came in today for reevaluation and intervention to that, if needed. Informed consent was obtained. DESCRIPTION OF PROCEDURE: She was brought to the cardiac catheterization laboratory. The right groin was prepared and draped in the usual sterile fashion. Lidocaine 1% was used for local anesthesia. Modified Seldinger technique was used to advance a 6-Paraguayan sheath in the right femoral artery. We used a crossover catheter to advance a Storq wire into the contralateral, left superficial femoral artery. We were then able to exchange the short 6-Paraguayan sheath for a 55 cm 6-Paraguayan sheath, which was positioned in the proximal to mid portion of the left superficial femoral artery and selective angiography of the left superficial femoral artery was performed with runoff down to the level of the ankle. Subsequently, we carried out percutaneous intervention to the left anterior tibial artery, which was subtotally occluded in its mid and distal portions. We were able to advance a 0.014 inch Command wire and the tip was placed in the distal part of the vessel and we then carried out balloon angioplasty with a 2.0 x 200 cm balloon, which reduced the greater than 99% stenosis to approximately 50% stenosis and flow throughout the vessel was established with a good runoff. The angioplasty equipment was removed. Angiography of the right femoral artery had been carried out through the sheath at the beginning of the procedure. At the end of the procedure, Mynx was used to achieve hemostasis. She received 6000 units of intravenous heparin during the procedure. She tolerated the procedure well. CONCLUSIONS: Severe distal disease of the arterial circulation of the left leg consisting of ostial occlusion of the posterior tibial, proximal occlusion of the peroneal, and subtotal occlusion of the mid and distal anterior tibial. Successful balloon angioplasty was carried out to the left anterior tibial with jehovah's witness of antegrade flow and with reduction of stenosis to 50% or less. Job ID: [id number] DocumentID: [id number] Dictated Date: 06/19/2020 12:18:49 Commissary Assistant Date: 06/19/2020 12:45:19 Dictated By: RAYMOND ALEJANDRA MD, MA, FACP, FACC,
[2020-06-19] MEDS: GABAPENTIN 300 MG (NEURONTIN) CAP PO SCH ×2 (13:00→20:33)
[2020-06-19] MEDS: inSUlin ASPART (NovoLOG) 1 UNIT/0.01 ML (CHARGE PER UNIT) SC SCH ×2 (15:00→20:48)
[2020-06-19] MEDS: NS IV 1000 ML 1,000 ML IV SCH (18:40)
[2020-06-19] MEDS: DOCUSATE SODIUM 100 MG (COLACE) CAP PO SCH (20:33)
[2020-06-19] MEDS: CARVEDILOL 3.125 MG (COREG) TABLET PO SCH (20:33)
[2020-06-19] MEDS: LEVETIRACETAM 500 MG (KEPPRA) TAB PO SCH (20:34)
[2020-06-20] MEDS: NS IV 1000 ML 1,000 ML IV SCH (01:54)
[2020-06-20 03:35] VITALS: BP 135/65
[2020-06-20 04:08] LABS: HEMOGLOBIN 10.8 g/dL (11.5-16.0); MEAN PLATELET VOLUME 9.5 fL (9.0-12.2); WHITE BLOOD COUNT 8.7 10^3/uL (4.3-11.0)
[2020-06-20 04:21] LABS: POTASSIUM 3.9 MMOL/L (3.6-5.0)
[2020-06-20 04:23] LABS: CALCIUM 8.1 MG/DL (8.5-10.1)
[2020-06-20 04:27] LABS: CREATININE SERUM 0.92 MG/DL (0.60-1.30)
[2020-06-20] MEDS: inSUlin ASPART (NovoLOG) 1 UNIT/0.01 ML (CHARGE PER UNIT) SC SCH (05:35)
[2020-06-20 07:17] VITALS: BP 156/76
--- NOTE | 2020-06-20 07:50 | Progress Note - Cardiology ---
Cardiology SOAP Progress Note Subjective: Lying in bed this morning. States she is ready to go home. No c/o CP, dyspnea. States her legs feel "much better". Objective: I&O/Vital Signs Weight (Pounds): 170 Weight (Ounces): 2.0 Weight (Calculated Kilograms): 77.418031 Side: right Groin site without hematoma: Yes Condition: extremity w/d/p Bruising: mild bruising Constitutional: AAO x 3, well-developed, well-nourished Respiratory: No accessory muscle use, No respiratory distress; chest expansion is symmetric, chest is bilaterally symmetric, lungs clear to auscultation Cardiovascular: regular rate-rhythm; No JVD; S1 and S2 Gastrointestional: No tender; soft, round, audible bowel sounds Extremities: no lower extremity edema bilateral Neurologic/Psychiatric: grossly intact (moves extremities) Skin: other (dressing to RLE, D&I, not removed) Results/Procedures: Labs Microbiology 06/19/20 MRSA Screen - Final, Complete MRSA not isolated Procedures S/P successful peripheral intervention on 06-19-2020 Please refer to peripheral angiogram report for details A/P: Assessment: PAD: Severe distal disease of the arterial circulation of the left leg consisting of ostial occlusion of the posterior tibial, proximal occlusion of the peroneal, and subtotal occlusion of the mid and distal anterior tibial. Successful balloon angioplasty was carried out to the left anterior tibial with denominational of antegrade flow and with reduction of stenosis to 50% or less per peripheral angiogram of Jun 19, 2020 Previous peripheral angiogram of Jun 05, 2020: Successful balloon angioplasty of the right anterior tibial with reduction of stenosis to less than 50%. Succe ssful balloon angioplasty of the proximal right peroneal which reduced the stenosis to less than 50%, but the mid peroneal remains occluded. Chronically occluded right posterior tibial to which intervention was not attempted. Chronically proximally occluded left posterior tibial and peroneal arteries and severe diffuse disease of the anterior tibial to which percutaneous intervention was not attempted at this time. Critical limb ischemia, bilateral S/p multiple strokes in early to mid 2015; now as bilat leg weakness that is more on the L, poor balance, and loss of R visual field. S/p L TKR in Jul 2015 CAD - Cardiac cath of 06-19-15 showed a widely patent stent in the prox LAD which is known to be Promus 2.5 x 8 mm stent placed in 2009. The mid LAD has tandem up to 50% lesions across which the FFR is 0.85, indicateing hemodynamic insignificance. The RCA has 40 to 50% stenoses in its prox and distal portions. LVEF 60-65%. Normal LVEDP. No significant MR. Echo 06/04/15 showed LVEF 65-70%, mod conc LVH, mild AoV sclerosis, mild AI and TR, mild diastolic dysfunction, PASP 25 mmHg DM II h/o hyperlipidemia,managed and followed by her PCP Mild carotid arterial disease diagnosed at [facility] at the time of CVA in October 2015, per patient report Plan: Ok to discharge home today Continue current medications F/U at our office in 1-2 weeks BLANK LUU Jun 20, 2020 07:50
--- NOTE | 2020-06-20 08:01 | Discharge Inst-Cardiology ---
Discharge Inst-Cardiac Discharge Medications Continued Medications: Albuterol Sulfate (Albuterol Sulfate) 1.25 Mg/3 Ml Vial.neb 1.25 MG INH QID PRN for AIR HUNGER, EACH Aspirin (Aspirin) 81 Mg Tab.chew 81 MG PO DAILY, TAB Atorvastatin Calcium (Atorvastatin Calcium) 40 Mg Tablet 40 MG PO HS, TAB Canagliflozin (Invokana) 100 Mg Tablet 100 MG PO DAILY, TAB Carvedilol (Coreg) 3.125 Mg Tablet 3.125 MG PO BID, TAB Clopidogrel Bisulfate (Clopidogrel) 75 Mg Tablet 75 MG PO DAILY, #90 TAB 3 Refills Docusate Sodium (Docusate Sodium) 100 Mg Capsule 100 MG PO BID, CAP Exenatide Microspheres (Bydureon Pen) 2 Mg/0.65 Ml Pen.injctr 2 MG INJ THURS, EA Gabapentin (Neurontin) 300 Mg Capsule 300 MG PO TID, CAP Levetiracetam (Levetiracetam) 500 Mg Tablet 500 MG PO BID, TAB Metformin HCl (Metformin HCl) 1,000 Mg Tablet 1000 MG PO BID, TAB Sertraline HCl (Sertraline HCl) 100 Mg Tablet 100 MG PO DAILY, TAB Tramadol HCl (Tramadol HCl) 50 Mg Tablet 50 MG PO Q4H PRN for PAIN-MILD (1-4), TAB Patient Instructions Patient Instructions: DO NOT RESTART METFORMIN UNTIL MONDAY, JUNE 22, 2020 Please schedule follow up appointment to see Dr. Sosa in 2 weeks BLANK LUU Jun 20, 2020 08:01
[2020-06-20] MEDS ORDERED: NON-FORMULARY MEDICATION 1 EA EA (Canagliflozin (Invokana) 100 MG) PO SCH (09:00)
[2020-06-20] MEDS: ASPIRIN 81 MG CHEW (CHILDREN'S ASA) PO SCH ×2 (09:24→09:31)
[2020-06-20] MEDS: LEVETIRACETAM 500 MG (KEPPRA) TAB PO SCH ×2 (09:24→09:32)
[2020-06-20] MEDS: CARVEDILOL 3.125 MG (COREG) TABLET PO SCH ×2 (09:24→09:32)
[2020-06-20] MEDS: DOCUSATE SODIUM 100 MG (COLACE) CAP PO SCH ×2 (09:24→09:31)
[2020-06-20] MEDS: CLOPIDOGREL 75 MG (PLAVIX) TABLET PO SCH ×2 (09:25→09:31)
[2020-06-20] MEDS: SERTRALINE 100 MG (ZOLOFT) TAB PO SCH ×2 (09:25→09:31)
[2020-06-20] MEDS: GABAPENTIN 300 MG (NEURONTIN) CAP PO SCH ×2 (09:25→09:31)
--- NOTE | 2020-06-20 09:25 | NUR ---
PT REFUSED MEDICATIONS THIS AM STATING THAT SHE TOOK HER HOME MEDICATIONS ALREADY WITH BREAKFAST. ORDER TO ALLOW PT TO TAKE HOME MEDS IS ACTIVE AT THIS TIME.
--- NOTE | 2020-06-20 10:41 | Diagnostic Imaging Report ---
CLINICAL INDICATION: Patient with critical limb ischemia. COMPARISON: None EXAM: Real-time carotid Doppler duplex imaging was performed bilaterally. Peak systolic velocity, ICA/CCA peak systolic ratio, spectral analysis, and vascular morphology were studied. FINDINGS: ARTERY VELOCITY Right Left CCA 0.96 m/s 0.85 m/s ICA 1.47 m/s 0.99 m/s ECA 1.19 m/s 0.84 m/s ICA/CCA 1.5 1.2 VERT.ART Antegrade Antegrade There is bilateral carotid artery atherosclerotic disease. There is calcification and shadowing seen within the proximal right cervical ICA limiting evaluation. There are no elevated velocities seen just distal to this area. IMPRESSION: Mild bilateral carotid artery atherosclerotic disease with no grayscale or Doppler evidence of significant vascular stenosis. Dictated by: Dictated on workstation # [id number]
--- NOTE | 2020-06-20 10:43 | Progress Note - Cardiology ---
Cardiology SOAP Progress Note Subjective: No cp or palp or syncope or shortness of breath or groin or leg discomfort. Wishes to go home Objective: I&O/Vital Signs 06/19/20 06/19/20 06/20/20 06/20/20 23:16 23:16 01:00 03:35 Temp 36.3 36.2 Pulse 64 54 55 Resp 20 20 B/P (MAP) 136/70 (92) 135/65 (88) Pulse Ox 95 95 O2 Delivery Room Air Room Air Room Air 06/20/20 06/20/20 06/20/20 06:40 07:17 09:00 Temp 36.4 Pulse 55 58 Resp 18 B/P (MAP) 156/76 (102) Pulse Ox 94 O2 Delivery Room Air Room Air 06/20/20 00:00 Intake Total 410 ml Balance 410 ml Weight (Pounds): 170 Weight (Ounces): 2.0 Weight (Calculated Kilograms): 77.343874 Side: right Groin site without hematoma: Yes Condition: extremity w/d/p Bruising: mild bruising Constitutional: AAO x 3, well-developed, well-nourished Respiratory: No accessory muscle use, No respiratory distress; chest expansion is symmetric, chest is bilaterally symmetric, lungs clear to auscultation Cardiovascular: regular rate-rhythm; No JVD; S1 and S2 Gastrointestional: No tender; soft, round, audible bowel sounds Extremities: no lower extremity edema bilateral Neurologic/Psychiatric: grossly intact (moves extremities) Skin: other (dressing to RLE, D&I, not removed) Results/Procedures: Labs Laboratory Tests 06/19/20 20:32: Glucometer 147H 06/20/20 03:23: White Blood Count 8.7, Red Blood Count 3.90, Hemoglobin 10.8L, Hematocrit 36, Mean Corpuscular Volume 92, Mean Corpuscular Hemoglobin 28, Mean Corpuscular Hemoglobin Concent 30L, Red Cell Distribution Width 14.5, Platelet Count 290, Mean Platelet Volume 9.5, Sodium Level 140, Potassium Level 3.9, Chloride Level 108H, Carbon Dioxide Level 21, Anion Gap 11, Blood Urea Nitrogen 15, Creatinine 0.92, Estimat Glomerular Filtration Rate 58, BUN/Creatinine Ratio 16, Glucose Level 122H, Calcium Level 8.1L Microbiology 06/19/20 MRSA Screen - Final, Complete MRSA not isolated Laboratory Tests 06/19/20 08:24 06/20/20 03:23 A/P: Assessment: PAD: Previous peripheral angiogram of Jun 05, 2020: Successful balloon angioplasty of the right anterior tibial with reduction of stenosis to less than 50%. Successful balloon angioplasty of the proximal right peroneal which reduced the stenosis to less than 50%, but the mid peroneal remains occluded. Chronically occluded right posterior tibial to which intervention was not atte mpted. Chronically proximally occluded left posterior tibial and peroneal arteries and severe diffuse disease of the anterior tibial to which successful balloon angioplasty was carried out on Jun 19, 2020 Critical limb ischemia, bilateral, treated with PCI on 06/05/20 and 06/19/20 (see above) S/p multiple strokes in early to mid 2015; now as bilat leg weakness that is more on the L, poor balance, and loss of R visual field. S/p L TKR in Jul 2015 CAD - Cardiac cath of 06-19-15 showed a widely patent stent in the prox LAD which is known to be Promus 2.5 x 8 mm stent placed in 2009. The mid LAD has tandem up to 50% lesions across which the FFR is 0.85, indicateing hemodynamic insignificance. The RCA has 40 to 50% stenoses in its prox and distal portions. LVEF 60-65%. Normal LVEDP. No significant MR. Echo 06/04/15 showed LVEF 65-70%, mod conc LVH, mild AoV sclerosis, mild AI and TR, mild diastolic dysfunction, PASP 25 mmHg DM II h/o hyperlipidemia,managed and followed by her PCP Mild carotid arterial disease diagnosed at [facility] at the time of CVA in October 2015, per patient report Plan: I discussed the details of her PAD and interventions undertaken We discussed risk factor modification in detail We discussed the pros and cons of current CV regimen. She has been tolerating it well. We have advised compliance Ok to discharge home today F/U at our office in 1-2 weeks RAYMOND ALEJANDRA MD FACP [facility]S Jun 20, 2020 10:43
== END 2020-06-20 10:00 | disposition home or self-care (01) ==
LOC: CATH 10:00 → CSD 13:25 → CATH 06-20 10:00
PROVIDERS: ATTEND Internal Medicine Cardiovascular Disease
DX: I70.222 Atherosclerosis of native arteries of extremities with rest pain, left leg (principal); S81.809A Unspecified open wound, unspecified lower leg, initial encounter; E11.9 Type 2 diabetes mellitus without complications; I25.10 Atherosclerotic heart disease of native coronary artery without angina pectoris; E78.5 Hyperlipidemia, unspecified; I11.9 Hypertensive heart disease without heart failure; I65.23 Occlusion and stenosis of bilateral carotid arteries; I99.8 Other disorder of circulatory system; Z79.84 Long term (current) use of oral hypoglycemic drugs; Z79.82 Long term (current) use of aspirin; Z86.73 Personal history of transient ischemic attack (TIA), and cerebral infarction without residual deficits
CPT/HCPCS: 36247; 37228; 75710; 80048; 80053; 82962; 85027 ×2; 85610; 85730; 87081; 93005; 93880; C1725; C1760; C1769 ×2; C1887 ×2; C1894 ×2; 36415

== ENCOUNTER → 2020-07-12 | Outpatient (CLI) | payer MEDICARE, OTHER ==
[~2020-07-12] MED LIST changes: -HEParin (CATH LAB) 2,000 ML IV ONE; -LIDOCAINE 1% INJ 20 ML 20 ML VIAL ONE; -MIDAZOLAM 5 MG/5 ML (VERSED) VIAL ONE; -NS IV 1000 ML 1,000 ML IV SCH; -NS IV 1000 ML 1,000 ML ONE; -fentaNYL INJECTION 100 MCG/2 ML AMP ONE
== END ==
LOC: WOUNDCARE 08:43
PROVIDERS: ATTEND Surgery
DX: L97.212 Non-pressure chronic ulcer of right calf with fat layer exposed (principal); I87.331 Chronic venous hypertension (idiopathic) with ulcer and inflammation of right lower extremity; E11.622 Type 2 diabetes mellitus with other skin ulcer; L89.512 Pressure ulcer of right ankle, stage 2; I70.232 Atherosclerosis of native arteries of right leg with ulceration of calf; F03.90 Unspecified dementia, unspecified severity, without behavioral disturbance, psychotic disturbance, mood disturbance, and anxiety; E11.52 Type 2 diabetes mellitus with diabetic peripheral angiopathy with gangrene
CPT/HCPCS: A6197; G0463; 99213

== ENCOUNTER → 2020-07-31 | Outpatient (CLI) | payer MEDICARE, OTHER | LOC: WOUNDCARE 10:04 | PROVIDERS: ATTEND Surgery | DX: I96 Gangrene, not elsewhere classified (principal); I70.232 Atherosclerosis of native arteries of right leg with ulceration of calf; L89.522 Pressure ulcer of left ankle, stage 2; F03.90 Unspecified dementia, unspecified severity, without behavioral disturbance, psychotic disturbance, mood disturbance, and anxiety ==

== ENCOUNTER → 2020-08-07 | Outpatient (CLI) | payer MEDICARE, OTHER | LOC: WOUNDCARE 10:04 | PROVIDERS: ATTEND Orthopaedic Surgery Hand Surgery | DX: I96 Gangrene, not elsewhere classified (principal); I70.243 Atherosclerosis of native arteries of left leg with ulceration of ankle; L89.523 Pressure ulcer of left ankle, stage 3; F03.90 Unspecified dementia, unspecified severity, without behavioral disturbance, psychotic disturbance, mood disturbance, and anxiety | CPT/HCPCS: 99213 ==

== ENCOUNTER → 2020-09-04 | Outpatient (CLI) | payer MEDICARE, OTHER ==
[~2020-09-04] MED LIST changes: -LISI-552 PO; +LISI20TA26 PO; -LISI40TA PO; +LISI40TA9 PO; -OXYC-471 PO; +OXYC1TAB11 PO; +SERT-413 PO; +SERT-414 PO; -SERT100T8 PO; -SERT50TA9 PO
[2020-09-04 11:57] LABS: BASOPHILS % (AUTO) 0 % (0-10); EOSINOPHILS # (AUTO) 0.1 10^3/uL (0.0-0.3); EOSINOPHILS % (AUTO) 2 % (0-10); HEMATOCRIT 39 % (35-52); HEMOGLOBIN 12.1 g/dL (11.5-16.0); LYMPHOCYTES # (AUTO) 1.5 10^3/uL (1.0-4.0); LYMPHOCYTES % (AUTO) 24 % (12-44); MEAN CORPUSCULAR HEMOGLOBIN 27 pg (25-34); MEAN CORPUSCULAR HGB CONC 31 g/dL (32-36); MEAN CORPUSCULAR VOLUME 89 fL (80-99); MEAN PLATELET VOLUME 9.1 fL (9.0-12.2); MONOCYTES # (AUTO) 0.3 10^3/uL (0.0-1.0); MONOCYTES % (AUTO) 5 % (0-12); NEUTROPHILS # (AUTO) 4.3 10^3/uL (1.8-7.8); NEUTROPHILS % (AUTO) 69 % (42-75); PLATELET COUNT 240 10^3/uL (130-400); WHITE BLOOD COUNT 6.3 10^3/uL (4.3-11.0)
[2020-09-04 12:17] LABS: ALBUMIN 3.8 GM/DL (3.2-4.5); BILIRUBIN,TOTAL 0.4 MG/DL (0.1-1.0); CALCIUM 8.7 MG/DL (8.5-10.1); CREATININE SERUM 1.08 MG/DL (0.60-1.30); POTASSIUM 3.8 MMOL/L (3.6-5.0); TOTAL PROTEIN 6.9 GM/DL (6.4-8.2)
== END ==
LOC: LAB 11:40
PROVIDERS: ATTEND Surgery
DX: E11.622 Type 2 diabetes mellitus with other skin ulcer (principal); I70.243 Atherosclerosis of native arteries of left leg with ulceration of ankle; L89.523 Pressure ulcer of left ankle, stage 3; F03.90 Unspecified dementia, unspecified severity, without behavioral disturbance, psychotic disturbance, mood disturbance, and anxiety; L03.116 Cellulitis of left lower limb
CPT/HCPCS: 36415; 80053; 83036; 85025

== ENCOUNTER → 2020-09-04 | Outpatient (CLI) | payer MEDICARE, OTHER | LOC: WOUNDCARE 10:07 | PROVIDERS: ATTEND Surgery | DX: I96 Gangrene, not elsewhere classified (principal); L89.523 Pressure ulcer of left ankle, stage 3; I70.243 Atherosclerosis of native arteries of left leg with ulceration of ankle; F03.90 Unspecified dementia, unspecified severity, without behavioral disturbance, psychotic disturbance, mood disturbance, and anxiety; E11.622 Type 2 diabetes mellitus with other skin ulcer; L03.116 Cellulitis of left lower limb | CPT/HCPCS: 99213 ==

== ENCOUNTER → 2020-09-11 | Outpatient (CLI) | payer MEDICARE, OTHER | LOC: WOUNDCARE 10:05 | PROVIDERS: ATTEND Surgery | DX: L89.523 Pressure ulcer of left ankle, stage 3 (principal); I70.243 Atherosclerosis of native arteries of left leg with ulceration of ankle; F03.90 Unspecified dementia, unspecified severity, without behavioral disturbance, psychotic disturbance, mood disturbance, and anxiety; E11.622 Type 2 diabetes mellitus with other skin ulcer; L03.116 Cellulitis of left lower limb; E11.52 Type 2 diabetes mellitus with diabetic peripheral angiopathy with gangrene | CPT/HCPCS: 99213 ==

== ENCOUNTER → 2020-09-18 | Outpatient (CLI) | payer MEDICARE, OTHER | LOC: WOUNDCARE 10:05 | PROVIDERS: ATTEND Surgery | DX: L89.523 Pressure ulcer of left ankle, stage 3 (principal); I70.243 Atherosclerosis of native arteries of left leg with ulceration of ankle; F03.90 Unspecified dementia, unspecified severity, without behavioral disturbance, psychotic disturbance, mood disturbance, and anxiety; E11.622 Type 2 diabetes mellitus with other skin ulcer; L03.116 Cellulitis of left lower limb; E11.52 Type 2 diabetes mellitus with diabetic peripheral angiopathy with gangrene | CPT/HCPCS: 11042 ==

== ENCOUNTER → 2020-10-02 | Outpatient (CLI) | payer MEDICARE, OTHER | LOC: WOUNDCARE 10:07 | PROVIDERS: ATTEND Surgery | DX: I96 Gangrene, not elsewhere classified (principal); L89.523 Pressure ulcer of left ankle, stage 3; I70.243 Atherosclerosis of native arteries of left leg with ulceration of ankle; F03.90 Unspecified dementia, unspecified severity, without behavioral disturbance, psychotic disturbance, mood disturbance, and anxiety; E11.622 Type 2 diabetes mellitus with other skin ulcer | CPT/HCPCS: 11042; G0463 ==

== ENCOUNTER → 2020-10-09 | Outpatient (CLI) | payer MEDICARE, OTHER | LOC: WOUNDCARE 10:09 | PROVIDERS: ATTEND Surgery | DX: L89.523 Pressure ulcer of left ankle, stage 3 (principal); I70.243 Atherosclerosis of native arteries of left leg with ulceration of ankle; F03.90 Unspecified dementia, unspecified severity, without behavioral disturbance, psychotic disturbance, mood disturbance, and anxiety; E11.622 Type 2 diabetes mellitus with other skin ulcer; E11.52 Type 2 diabetes mellitus with diabetic peripheral angiopathy with gangrene | CPT/HCPCS: 99213 ==

== ENCOUNTER → 2020-10-16 | Outpatient (CLI) | payer MEDICARE, OTHER | LOC: WOUNDCARE 10:11 | PROVIDERS: ATTEND Surgery | DX: I96 Gangrene, not elsewhere classified (principal); L89.523 Pressure ulcer of left ankle, stage 3; I70.243 Atherosclerosis of native arteries of left leg with ulceration of ankle; F03.90 Unspecified dementia, unspecified severity, without behavioral disturbance, psychotic disturbance, mood disturbance, and anxiety; E11.622 Type 2 diabetes mellitus with other skin ulcer | CPT/HCPCS: 99213 ==

== ENCOUNTER → 2020-10-23 | Outpatient (CLI) | payer MEDICARE, OTHER | LOC: WOUNDCARE 10:14 | PROVIDERS: ATTEND Surgery | DX: I96 Gangrene, not elsewhere classified (principal); L89.523 Pressure ulcer of left ankle, stage 3; I70.243 Atherosclerosis of native arteries of left leg with ulceration of ankle; E11.622 Type 2 diabetes mellitus with other skin ulcer | CPT/HCPCS: 99213 ==

== ENCOUNTER → 2020-10-30 | Outpatient (CLI) | payer MEDICARE, OTHER ==
[~2020-10-30] MED LIST changes: +ACYC-112 PO; -ACYC800T PO
== END ==
LOC: WOUNDCARE 10:04
PROVIDERS: ATTEND Surgery
DX: L89.523 Pressure ulcer of left ankle, stage 3 (principal); I70.243 Atherosclerosis of native arteries of left leg with ulceration of ankle; F03.90 Unspecified dementia, unspecified severity, without behavioral disturbance, psychotic disturbance, mood disturbance, and anxiety; E11.622 Type 2 diabetes mellitus with other skin ulcer; E11.52 Type 2 diabetes mellitus with diabetic peripheral angiopathy with gangrene
CPT/HCPCS: 99213

== ENCOUNTER → 2020-11-07 | Outpatient (CLI) | payer MEDICARE, OTHER | LOC: WOUNDCARE 14:53 | PROVIDERS: ATTEND Surgery | DX: E11.52 Type 2 diabetes mellitus with diabetic peripheral angiopathy with gangrene (principal); E11.622 Type 2 diabetes mellitus with other skin ulcer; I70.262 Atherosclerosis of native arteries of extremities with gangrene, left leg; L89.523 Pressure ulcer of left ankle, stage 3; F03.90 Unspecified dementia, unspecified severity, without behavioral disturbance, psychotic disturbance, mood disturbance, and anxiety | CPT/HCPCS: 99212 ==

== ENCOUNTER 2021-12-22 19:02 | Emergency (ER) | payer MEDICARE, OTHER ==
[~2021-12-22 19:02] MED LIST changes: +CLOT45CR28 VG; -CLTR1PV45 VG; +MIRT-68 PO; -MIRT15TA6 PO
[2021-12-22] MEDS ORDERED: TETANUS,DIPTH,PERTUSS P/F (BOOSTRIX) 0.5 ML VIAL IM ONE (19:30)
--- NOTE | 2021-12-22 19:30 | ED Upper Extremity ---
General Chief Complaint: Laceration Stated Complaint: R HAND LAC Source: patient Exam Limitations: no limitations (CLAUDIA RADER) History of Present Illness Date Seen by Provider: Dec 22, 2021 Time Seen by Provider: 19:28 Initial Comments Patient is a 86-year-old female presents ED with laceration to her right palmar hand. This occurred around around 30. She states she was opening up a can of dog food when she cut her right palmar hand. She reports mild bleeding. Normal active range of motion of the digits. She is unsure if she is up-to-date on her tetanus within the past 5 years. She states she uses her wheelchair which aggravates the cut resulting in bleeding (CLAUDIA RADER) Allergies and Home Medications Allergies Coded Allergies: No Known Drug Allergies (Unverified , 06/05/20) Patient Home Medication List Home Medication List Reviewed: Yes (CLAUDIA RADER) Albuterol Sulfate (Albuterol Sulfate) 1.25 Mg/3 Ml Vial.neb, 1.25 MG INH QID PRN for AIR HUNGER, (Reported) Entered as Reported by: LIZ BRENNAN on 06/19/20 0842 Aspirin (Aspirin) 81 Mg Tab.chew, 81 MG PO DAILY, (Reported) Entered as Reported by: LAURE SOW on 06/05/20 0753 Atorvastatin Calcium (Atorvastatin Calcium) 40 Mg Tablet, 40 MG PO HS, (Reported) Entered as Reported by: HOWIE BALBUENA on 01/16/16 1025 Canagliflozin (Invokana) 100 Mg Tablet, 100 MG PO DAILY, (Reported) Entered as Reported by: LAURE SOW on 06/05/20 0753 Carvedilol (Coreg) 3.125 Mg Tablet, 3.125 MG PO BID, (Reported) Entered as Reported by: GT SALGUERO on 03/05/17 0826 Clopidogrel Bisulfate (Clopidogrel) 75 Mg Tablet, 75 MG PO DAILY Prescribed by: BLANK LUU on 06/06/20 0803 Docusate Sodium (Docusate Sodium) 100 Mg Capsule, 100 MG PO BID, (Reported) Entered as Reported by: LAURE SOW on 06/05/20 0753 Exenatide Microspheres (Bydureon Pen) 2 Mg/0.65 Ml Pen.injctr, 2 MG INJ THURS, (Reported) Entered as Reported by: GT SALGUERO on 03/05/17 0826 Gabapentin (Neurontin) 300 Mg Capsule, 300 MG PO TID, (Reported) Entered as Reported by: LAURE SOW on 06/05/20 075 Levetiracetam (Levetiracetam) 500 Mg Tablet, 500 MG PO BID, (Reported) Entered as Reported by: LAURE SOW on 06/05/20 075 Metformin HCl (Metformin HCl) 1,000 Mg Tablet, 1,000 MG PO BID, (Reported) Entered as Reported by: LAURE SOW on 06/05/20 075 Sertraline HCl (Sertraline HCl) 100 Mg Tablet, 100 MG PO DAILY, (Reported) Entered as Reported by: RENETTA RODAS on 10/18/15 1734 Tramadol HCl (Tramadol HCl) 50 Mg Tablet, 50 MG PO Q4H PRN for PAIN-MILD (1-4), (Reported) Entered as Reported by: LAURE SOW on 06/05/20752 Review of Systems Constitutional: No chills, No diaphoresis, No malaise, No weakness EENTM: No ear pain, No blurred vision, No double vision Respiratory: No cough, No dyspnea on exertion Cardiovascular: No chest pain Gastrointestinal: No abdominal pain, No diarrhea, No nausea, No vomiting Genitourinary: No decreased output, No discharge Musculoskeletal: muscle pain Skin: change in color (CLAUDIA RADER) All Other Systems Reviewed Negative Unless Noted: Yes (CLAUDIA RADER) Past Khactac-Fmptrd-Dinnqa Hx Immunizations Up To Date Tetanus Booster (TDap): Unknown PED Vaccines UTD: Yes COVID19 Vaccine 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 (CLAUDIA RADER) Seasonal Allergies Seasonal Allergies: No (CLAUDIA RADER) Past Medical History Surgeries: Yes (CARDIAC STENTS) Cardiac, Coronary Stent, Eye Surgery, 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 Respiratory: Yes Currently Using CPAP: No Currently Using BIPAP: No Cardiac: Yes (STENTS) Coronary Artery Disease, High Cholesterol, Hypertension Neurological: Yes Stroke Female 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 Disorders: 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, 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 Sexually Transmitted Disease: No HIV/AIDS: No Genitourinary: Yes Kidney Infection Gastrointestinal: No Musculoskeletal: No Arthritis Endocrine: Yes Diabetes, Insulin dep, Hypothyroidsim HEENT: Yes Cataract Loss of Vision: Denies Hearing Impairment: Hard of Hearing Cancer: Yes Skin, Cervical Psychosocial: Yes Anxiety, Depression Integumentary: No Pruritis Blood Disorders: No Adverse Reaction/Blood Tranf: No (CLAUDIA RADER) Family Medical History Family history: Alzheimer's disease 03 MOTHER Family history: Hypertension 03 FATHER 03 MOTHER Myocardial infarction 03 FATHER 03 MOTHER Heart Disease, Hypertension (CLAUDIA RADER) Physical Exam Vital Signs Vital Signs - First Documented 12/22/21 19:17 Temp 36.0 Pulse 63 Resp 16 B/P (MAP) 134/76 (95) Pulse Ox 96 O2 Delivery Room Air (JEREMIE GARDNERA Alberta DO) Vital Signs Capillary Refill : (CLAUDIA RADER) Height, Weight, BMI Height: 5'2.00" Weight: 170lbs. 2.0oz. 77.064208yv; 28.36 BMI Method:Stated General Appearance: WD/WN, no apparent distress HEENT: PERRL/EOMI, normal ENT inspection, TMs normal, pharynx normal Neck: non-tender, full range of motion Cardiovascular: regular rate, rhythm, no edema, no gallop, no JVD Respiratory: chest non-tender, lungs clear, normal breath sounds, no respiratory distress Gastrointestinal: normal bowel sounds, non tender, soft Hand: normal ROM, Right, laceration (2 cm laceration to right palmar hand. M ild adipose involvement.) Neurologic/Tendon: normal sensation, normal motor functions, normal tendon functions Skin: other (2 cm laceration to right palmar hand.) (CLAUDIA RADER) Procedures/Interventions Wound Location: Upper Extremities Other Wound Location right hand Wound Length (cm): 2 Wound's Depth, Shape: superficial, sub Q Wound Explored: clean Irrigated w/ Saline (ccs): 200 Betadine Prep?: Yes Anesthesia: 1% Lidocaine Volume Anesthetic (ccs): 5 Wound Debrided: minimal Suture: Ethlion Suture Size: 5-0 Number of Sutures: 3 Layer Closure?: 1 Number Deep Layer Sutures: 0 Sterile Dressing Applied?: Yes (CLAUDIA RADER) Progress/Results/Core Measures Results/Orders Medications Given in ED Current Medications Medications Dose Ordered Sig/Hanny Route Start Time Stop Time Status Last Admin Dose Admin Diphtheria/ Tetanus/Acell Pertussis 0.5 ml ONCE ONCE IM 12/22/21 19:30 12/22/21 19:31 DC 12/22/21 19:39 0.5 ML (CLIVE GARDNER DO) Vital Signs/I&O 12/22/21 12/22/21 19:17 19:50 Temp 36.0 36.0 Pulse 63 63 Resp 16 16 B/P (MAP) 134/76 (95) 134/76 Pulse Ox 96 96 O2 Delivery Room Air Room Air (CLIVE GARDNER DO) Departure Communication (PCP) Patient with a 2 cm laceration to the right palmar hand. Appears to get irritated and open secondary to using her wheelchair. 3 sutures were placed to prevent opening and bleeding. Extensive irrigation. Was given a tetanus shot. Remove sutures in 10 days. Normal active range of motion of the digits. Return precaution were discussed with patient and family. (CLAUDIA RADER) Impression Primary Impression: Laceration Disposition: 01 HOME, SELF-CARE Condition: Stable Departure-Patient Inst. Decision time for Depature: 19:41 (CLAUDIA RADER) Referrals: [facility],LOCAL PHYSICIAN (PCP) Primary Care Physician Patient Instructions: Laceration Repair With Stitches ED Add. Discharge Instructions: Remove sutures in 10 days. Neosporin topical twice a day. If any worsening symptoms return back to ED for further evaluation such as redness, swelling. All discharge instructions reviewed with patient and/or family. Voiced understanding. ATTENDING PHYSICIAN NOTE: I WAS PHYSICALLY PRESENT ER PHYSICIAN, BUT I WAS NOT INVOLVED IN ANY DECISION MAKING OR ANY CARE OF THIS PATIENT. (CLIVE GARDNER DO) CLAUDIA RADER Dec 22, 2021 19:29 CLIVE GARDNER DO Dec 23, 2021 00:32
[2021-12-22 19:50] VITALS: BP 134/76
== END 2021-12-22 19:50 | disposition home or self-care (01) ==
LOC: EDUNIT# 19:02 → ER 19:03
DX: S61.411A Laceration without foreign body of right hand, initial encounter (principal); E11.9 Type 2 diabetes mellitus without complications; Z23 Encounter for immunization; Z28.311 Partially vaccinated for COVID-19; Z79.4 Long term (current) use of insulin; W26.8XXA Contact with other sharp object(s), not elsewhere classified, initial encounter
CPT/HCPCS: 12001; 90715

== ENCOUNTER 2022-06-04 20:08 | Emergency (ER) | payer MEDICARE, OTHER ==
[~2022-06-04] VITALS: Ht 152.4 cm; Wt 76.2 kg
[2022-06-04] MEDS ORDERED: ASPIRIN 81 MG CHEW (CHILDREN'S ASA) PO ONE (20:30)
[2022-06-04] MEDS ORDERED: NS IV 500 ML 500 ML IV ONE (20:30)
[2022-06-04 20:36] LABS: BASOPHILS % (AUTO) 1 % (0-10); EOSINOPHILS # (AUTO) 0.2 10^3/uL (0.0-0.3); EOSINOPHILS % (AUTO) 2 % (0-10); HEMATOCRIT 41 % (35-52); LYMPHOCYTES # (AUTO) 1.8 10^3/uL (1.0-4.0); LYMPHOCYTES % (AUTO) 23 % (12-44); MEAN CORPUSCULAR HEMOGLOBIN 28 pg (25-34); MEAN CORPUSCULAR HGB CONC 31 g/dL (32-36); MEAN CORPUSCULAR VOLUME 88 fL (80-99); MEAN PLATELET VOLUME 9.4 fL (9.0-12.2); MONOCYTES # (AUTO) 0.4 10^3/uL (0.0-1.0); MONOCYTES % (AUTO) 5 % (0-12); NEUTROPHILS # (AUTO) 5.7 10^3/uL (1.8-7.8); NEUTROPHILS % (AUTO) 71 % (42-75); PLATELET COUNT 274 10^3/uL (130-400); WHITE BLOOD COUNT 8.2 10^3/uL (4.3-11.0)
[2022-06-04 20:39] LABS: POTASSIUM 3.3 MMOL/L (3.6-5.0)
[2022-06-04 20:40] LABS: CALCIUM 9.2 MG/DL (8.5-10.1)
[2022-06-04 20:41] LABS: TOTAL PROTEIN 7.5 GM/DL (6.4-8.2)
[2022-06-04 20:42] LABS: INR 0.9 (0.8-1.4); PROTHROMBIN TIME PATIENT 12.9 SEC (12.2-14.7)
[2022-06-04 20:43] LABS: BILIRUBIN,TOTAL 0.5 MG/DL (0.1-1.0)
[2022-06-04 20:45] LABS: CREATININE SERUM 1.01 MG/DL (0.60-1.30)
[2022-06-04 20:48] LABS: MAGNESIUM 1.7 MG/DL (1.6-2.4)
--- NOTE | 2022-06-04 20:51 | Diagnostic Imaging Report ---
Indication: Chest pain Portable chest 8:29 PM Heart size and pulmonary vascularity are normal. Lungs are clear. There are no effusions or pneumothoraces. IMPRESSION: No acute abnormalities in the chest Dictated by: Dictated on workstation # [id number]
[2022-06-04 20:55] LABS: BILIRUBIN,URINE NEGATIVE (NEGATIVE); CLARITY,URINE CLEAR; COLOR,URINE YELLOW; GLUCOSE, URINE (UA) TRACE (NEGATIVE); KETONES,URINE NEGATIVE (NEGATIVE); LEUKOCYTE ESTERASE ,URINE NEGATIVE (NEGATIVE); NITRITE,URINE NEGATIVE (NEGATIVE); PH,URINE 5.5 (5-9); PROTEIN,URINE TRACE (NEGATIVE)
--- NOTE | 2022-06-04 21:14 | ED Chest Pain ---
General Chief Complaint: Chest Pain Stated Complaint: CHEST PAIN Nursing Triage Note: PT TO ED WITH DAUGHTER BY POV WITH C/O CP X 3 DAYS. REPORTS PRESSURE IN CENTER OF CHEST, RADIATES INTO BOTH ARMS. PT ALSO C/O SOB. Source: patient, family Exam Limitations: no limitations History of Present Illness Date Seen by Provider: Jun 04, 2022 Time Seen by Provider: 20:14 Initial Comments Here with report of central chest pain that she had over the last 3 days. She states that the pressure. Denies significant pain currently. Does complain of some shortness of breath. Denies nausea, vomiting, sweating. 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 She is on clopidogrel. She denies aspirin. Arrives with her daughter. Patient lives alone and usually does well. Has had diarrhea over the last week. She is not good at drinking fluids and may be dehydrated per the daughter and the patient agrees. Timing/Duration: 2-3 days Severity/Quality: mild, moderate, pressure Location: central Radiation: other (Across the anterior chest left and right) Activities at Onset: none Prior CP/Workup: cardiac cath, echocardiography, stress test Modifying Factors: improves with rest ASA po [employer] ATTENDANT: No NTG SL [employer]EW[employer] ATTENDANT: No Associated Symptoms: No abdominal pain, No back pain, No dizziness, No fever/chills, No nausea/vomiting; shortness of breath; No weakness Allergies and Home Medications Allergies Coded Allergies: No Known Drug Allergies (Unverified , 06/05/20) Patient Home Medication List Home Medication List Reviewed: Yes Albuterol Sulfate (Albuterol Sulfate) 1.25 Mg/3 Ml Vial.neb, 1.25 MG INH QID 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 for 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, (Reported) Entered as Reported by: LIZ BRENNAN on 06/19/20 0842 Aspirin (Aspirin) 81 Mg Tab.chew, 81 MG PO DAILY, (Reported) Entered as Reported by: LAURE SOW on 06/05/20 0753 Atorvastatin Calcium (Atorvastatin Calcium) 40 Mg Tablet, 40 MG PO HS, (Reported) Entered as Reported by: HOWIE BALBUENA on 01/16/16 1025 Canagliflozin (Invokana) 100 Mg Tablet, 100 MG PO DAILY, (Reported) Entered as Reported by: LAURE SOW on 06/05/20 0753 Carvedilol (Coreg) 3.125 Mg Tablet, 3.125 MG PO BID, (Reported) Entered as Reported by: GT SALGUERO on 03/05/17 08 Clopidogrel Bisulfate (Clopidogrel) 75 Mg Tablet, 75 MG PO DAILY Prescribed by: BLANK LUU on 06/06/20 08 Docusate Sodium (Docusate Sodium) 100 Mg Capsule, 100 MG PO BID, (Reported) Entered as Reported by: LAURE SOW on 06/05/20 075 Exenatide Microspheres (Bydureon Pen) 2 Mg/0.65 Ml Pen.injctr, 2 MG INJ THURS, (Reported) Entered as Reported by: GT SALGUERO on 03/05/17 08 Gabapentin (Neurontin) 300 Mg Capsule, 300 MG PO TID, (Reported) Entered as Reported by: LAURE SOW on 06/05/20752 Levetiracetam (Levetiracetam) 500 Mg Tablet, 500 MG PO BID, (Reported) Entered as Reported by: LAURE SOW on 06/05/20752 Metformin HCl (Metformin HCl) 1,000 Mg Tablet, 1,000 MG PO BID, (Reported) Entered as Reported by: LAURE SOW on 06/05/20 075 Sertraline HCl (Sertraline HCl) 100 Mg Tablet, 100 MG PO DAILY, (Reported) Entered as Reported by: RENETTA RODAS on 10/18/15 173 Tramadol HCl (Tramadol HCl) 50 Mg Tablet, 50 MG PO Q4H PRN for PAIN-MILD (1-4), (Reported) Entered as Reported by: LAURE SOW on 06/05/20752 Review of Systems Review of Systems Constitutional: see HPI; No chills, No fever EENTM: No Symptoms Reported Respiratory: See HPI Cardiovascular: See HPI Gastrointestinal: Diarrhea; Denies Vomiting Genitourinary: Denies Frequency, Denies Pain Musculoskeletal: No back pain; muscle pain Skin: No change in color, No lesions Psychiatric/Neurological: No Symptoms Reported All Other Systems Reviewed Negative Unless Noted: Yes Past Trhjpxm-Luqroo-Adeylb Hx Patient Social History Tobacco Use?: No Use of E-Cig and/or Vaping dev: No Substance use?: No Alcohol Use?: No Pt feels they are or have been: No Immunizations Up To Date Tetanus Booster (TDap): Unknown PED Vaccines UTD: Yes Influenza Vaccine Up-to-Date: Yes; Up-to-Date First/Initial COVID19 Vaccinat: 2020 Second COVID19 Vaccination Rafael: 2020 Seasonal Allergies Seasonal Allergies: No Past Medical History Surgery/Hospitalization HX: DM 2, HTN, CHF Surgeries: Yes (CARDIAC STENTS) Cardiac, Coronary Stent, Eye Surgery, 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 Respiratory: Yes Currently Using CPAP: No Currently Using BIPAP: No Cardiac: Yes (STENTS) Coronary Artery Disease, High Cholesterol, Hypertension Neurological: Yes Stroke Female 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 Disorders: Denies 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, Menopausal Sexually Transmitted Disease: No HIV/AIDS: No Genitourinary: Yes Kidney Infection Gastrointestinal: No Musculoskeletal: No Arthritis Endocrine: Yes Diabetes, Insulin dep, Hypothyroidsim HEENT: Yes Cataract Loss of Vision: Denies Hearing Impairment: Hard of Hearing Cancer: Yes Skin, Cervical Psychosocial: Yes Anxiety, Depression Integumentary: No Pruritis Blood Disorders: No Adverse Reaction/Blood Tranf: No Family Medical History Reviewed Nursing Family Hx Family history: Alzheimer's disease 03 MOTHER Family history: Hypertension 03 FATHER 03 MOTHER Myocardial infarction 03 FATHER 03 MOTHER Heart Disease, Hypertension Physical Exam Vital Signs Vital Signs - First Documented 06/04/22 20:12 Temp 36.7 Pulse 62 Resp 17 B/P (MAP) 131/91 (104) Pulse Ox 95 O2 Delivery Room Air Capillary Refill : Less Than 3 Seconds Height, Weight, BMI Height: 5'2.00" Weight: 170lbs. 2.0oz. [id number]; 32.00 BMI Method:Stated General Appearance: No Apparent Distress, WD/WN HEENT: PERRL/EOMI, Pharynx Normal Neck: Non Tender, Supple Respiratory: Lungs Clear, Normal Breath Sounds Cardiovascular: Regular Rate, Rhythm, No Murmur Gastrointestinal: Non Tender, Soft Extremity: Normal Range of Motion, Non Tender Neurologic/Psychiatric: Alert, Oriented x3 Skin: Normal Color, Warm/Dry Procedures/Interventions Suture Size: 5-0 Progress/Results/Core Measures Results/Orders Lab Results Laboratory Tests Test 06/04/22 20:28 06/04/22 20:29 06/04/22 22:28 Range/Units White Blood Count 8.2 4.3-11.0 10^3/uL Red Blood Count 4.73 3.80-5.11 10^6/uL Hemoglobin 13.0 11.5-16.0 g/dL Hematocrit 41 35-52 % Mean Corpuscular Volume 88 80-99 fL Mean Corpuscular Hemoglobin 28 25-34 pg Mean Corpuscular Hemoglobin Concent 31 L 32-36 g/dL Red Cell Distribution Width 13.5 10.0-14.5 % Platelet Count 274 130-400 10^3/uL Mean Platelet Volume 9.4 9.0-12.2 fL Immature Granulocyte % (Auto) 0 % Neutrophils (%) (Auto) 71 42-75 % Lymphocytes (%) (Auto) 23 12-44 % Monocytes (%) (Auto) 5 0-12 % Eosinophils (%) (Auto) 2 0-10 % Basophils (%) (Auto) 1 0-10 % Neutrophils # (Auto) 5.7 1.8-7.8 10^3/uL Lymphocytes # (Auto) 1.8 1.0-4.0 10^3/uL Monocytes # (Auto) 0.4 0.0-1.0 10^3/uL Eosinophils # (Auto) 0.2 0.0-0.3 10^3/uL Basophils # (Auto) 0.0 0.0-0.1 10^3/uL Immature Granulocyte # (Auto) 0.0 0.0-0.1 10^3/uL Prothrombin Time 12.9 12.2-14.7 SEC INR Comment 0.9 0.8-1.4 Activated Partial Thromboplast Time 29 24-35 SEC D-Dimer 0.80 H 0.00-0.49 UG/ML Sodium Level 142 135-145 MMOL/L Potassium Level 3.3 L 3.6-5.0 MMOL/L Chloride Level 106 98-107 MMOL/L Carbon Dioxide Level 25 21-32 MMOL/L Anion Gap 11 5-14 MMOL/L Blood Urea Nitrogen 14 7-18 MG/DL Creatinine 1.01 0.60-1.30 MG/DL Estimat Glomerular Filtration Rate 55 BUN/Creatinine Ratio 14 Glucose Level 219 H 70-105 MG/DL Calcium Level 9.2 8.5-10.1 MG/DL Corrected Calcium 9.2 8.5-10.1 MG/DL Magnesium Level 1.7 1.6-2.4 MG/DL Total Bilirubin 0.5 0.1-1.0 MG/DL Aspartate Amino Transf (AST/SGOT) 12 5-34 U/L Alanine Aminotransferase (ALT/SGPT) 15 0-55 U/L Alkaline Phosphatase 86 40-136 U/L Myoglobin 64.8 10.0-92.0 NG/ML Troponin I < 0.028 < 0.028 <0.028 NG/ML B-Type Natriuretic Peptide 166.1 H <100.0 PG/ML Total Protein 7.5 6.4-8.2 GM/DL Albumin 4.0 3.2-4.5 GM/DL Lipase 40 8-78 U/L Urine Color YELLOW Urine Clarity CLEAR Urine pH 5.5 5-9 Urine Specific Raymond >=1.030 1.016-1.022 Urine Protein TRACE H NEGATIVE Urine Glucose (UA) TRACE H NEGATIVE Urine Ketones NEGATIVE NEGATIVE Urine Nitrite NEGATIVE NEGATIVE Urine Bilirubin NEGATIVE NEGATIVE Urine Urobilinogen 1.0 < = 1.0 MG/DL Urine Leukocyte Esterase NEGATIVE NEGATIVE Urine RBC (Auto) NEGATIVE NEGATIVE Urine RBC NONE /HPF Urine WBC RARE /HPF Urine Squamous Epithelial Cells 2-5 /HPF Urine Crystals NONE /LPF Urine Bacteria FEW H /HPF Urine Casts PRESENT /LPF Urine Hyaline Casts 2-5 H /LPF Urine Mucus SMALL H /LPF Urine Culture Indicated YES Influenza Type A (RT-PCR) Not Detected Not Detecte Influenza Type B (RT-PCR) Not Detected Not Detecte SARS-CoV-2 RNA (RT-PCR) Not Detected Not Detecte My Orders Orders - CARLY TALLEY MD Ekg Tracing (06/04/22 20:12) Cbc With Automated Diff (06/04/22 20:28) Magnesium (06/04/22 20:28) Chest 1 View, Ap/Pa Only (06/04/22 20:28) Comprehensive Metabolic Panel (06/04/22 20:28) Myoglobin Serum (06/04/22 20:28) Protime With Inr (06/04/22 20:) Partial Thromboplastin Time (06/04/22 20:28) O2 (06/04/22 20:28) Monitor-Rhythm Ecg Trace Only (06/04/22 20:) Lipid Panel (06/05/22 06:00) Ed Iv/Invasive Line Start (06/04/22 20:28) Lipase (06/04/22 20:28) Bnp [place] (06/04/22 20:28) Troponin I [place] (06/04/22 20:28) Aspirin Chewable Tablet (Baby Aspirin Ch (06/04/22 20:30) Ed Iv/Invasive Line Start (06/04/22 20:28) Ns Iv 500 Ml (Sodium Chloride 0.9%) (06/04/22 20:30) Ua Culture If Indicated (06/04/22 20:50) Urine Culture (06/04/22 20:29) Fibrin Degradation Products (06/04/22 21:36) Troponin I [place] (06/04/22 22:30) Influenza A And B By Pcr (06/04/22 22:14) Covid 19 Inhouse Test (06/04/22 22:14) Medications Given in ED Current Medications Medications Dose Ordered Sig/Hanny Route Start Time Stop Time Status Last Admin Dose Admin Aspirin 324 mg ONCE ONCE PO 06/04/22 20:30 06/04/22 20:31 DC 06/04/22 20:39 324 MG Sodium Chloride 500 ml @ 0 mls/hr Q0M ONCE IV 06/04/22 20:30 06/04/22 20:31 DC 06/04/22 20:39 0 MLS/HR Vital Signs/I&O 06/04/22 20:12 Temp 36.7 Pulse 62 Resp 17 B/P (MAP) 131/91 (104) Pulse Ox 95 O2 Delivery Room Air Blood Pressure Mean: 104 Progress Progress Note : Progress Note Seen and evaluated. IV, labs, UA, chest x-ray, normal saline 500 mL bolus ordered. Monitor. 2140: Initial troponin negative. I have added D-dimer we will perform 2-hour after first draw. Chest x-ray shows no acute findings. Labs reviewed and otherwise showed no acute abnormalities except urine does appear concentrated. She is receiving IV fluid. Monitor patient. 2215: We we will add influenza and COVID screen as family states that she has been coughing for the last several days. She is vaccinated. Overall she feels better after fluids. Repeat troponin will be drawn at 2230. D-dimer not significantly elevated. No indication for CT angiogram of the chest at this point. Monitor patient. 2320: Repeat troponin is negative. She is chest pain-free and overall doing better. I did discuss with her about increasing fluid intake. She does admit that there may be some increased stress recently and that may be part of this with the holidays. Overall no indication for admission. I will send a copy of the chart to Dr. Walker. Discharged home with return precautions. Patient and family verbalized understand instructions and agreement with plan. Initial ECG Impression Date: Jun 04, 2022 Initial ECG Impression Time: 20:17 Initial ECG Rate: 57 Initial ECG Rhythm: S.Rod Comment Sinus bradycardia with left axis deviation. No evidence of ST elevation IA. Very similar to 06/20/2020. Interpreted by me. Diagnostic Imaging Diagonstic Imaging: Xray Plain Films/CT/US/NM/MRI: chest Comments [facility]. [place], [place] NAME: SANJAY MATUTE [facility] REC#: [id number] PT STATUS: REG ER : 1935 PHYSICIAN: CARLY TALLEY MD ADMIT DATE: 06/04/22/ER Signed Date of Exam:06/04/22 CHEST 1 VIEW, AP/PA ONLY Indication: Chest pain Portable chest 8:29 PM Heart size and pulmonary vascularity are normal. Lungs are clear. There are no effusions or pneumothoraces. IMPRESSION: No acute abnormalities in the chest Dictated by: Dictated on workstation # [id number] Dict: 06/04/222048 Trans: 06/04/222048 [facility] [id number] Interpreted by: CARLY GRACIA MD Electronically signed by: CARLY GRACIA MD 06/04/222048 Departure Impression Primary Impression: Chest pain Qualified Codes: R07.9 - Chest pain, unspecified Disposition: HOME, SELF-CARE Condition: Improved Departure-Patient Inst. Decision time for Depature: 23:35 Referrals: FAHAD WALKER MD (PCP/Family) Primary Care Physician Patient Instructions: Chest Pain (DC) Add. Discharge Instructions: All discharge instructions reviewed with patient and/or family. Voiced understanding. You should follow-up with your doctor early next week for recheck and further evaluation and to discuss cardiology referral. You may also follow-up with your graduate fellow as needed. You may take Tylenol/acetaminophen 1000 mg every 6-8 hours as needed for pain. Return for breathing problems, weakness, dizziness, sweating, increasing chest pain or other concerns as needed. Continue home medications as previously prescribed. You need to increase fluid intake. Copy Copies To 1: FAHAD WALKER MD, TIMOTHY D MD Jun 04, 2022 21:14
[2022-06-04 21:17] LABS: BACTERIA,URINE FEW /HPF; WBC,URINE RARE /HPF
[2022-06-04 23:57] VITALS: BP 160/68
== END 2022-06-04 23:57 | disposition home or self-care (01) ==
LOC: EDUNIT# 20:08 → ER 20:11
DX: R07.9 Chest pain, unspecified (principal); E11.9 Type 2 diabetes mellitus without complications; Z79.4 Long term (current) use of insulin; Z20.822 Contact with and (suspected) exposure to COVID-19
CPT/HCPCS: 36415; 51701; 71045; 80053; 81000; 83690; 83735; 83874; 83880; 84484; 85025; 85379; 85610; 85730; 87088; 87636; 93041

== ENCOUNTER 2022-12-28 13:45 | Inpatient (IN) | payer MEDICARE, OTHER ==
[~2022-12-28] VITALS: Ht 157.4 cm; Wt 74.0 kg
[~2022-12-28 13:45] MED LIST changes: -GABA300S2 PO; +GABA300S3 PO; -INSU100I29 SQ; +INSU100I30 SQ
--- NOTE | 2022-12-28 14:08 | ED General ---
General Chief Complaint: Glucose Problems Stated Complaint: HIGH BLOOD SUGAR Nursing Triage Note: Daughter brought patient in today with c/o elevated blood sugar. Daughter states patient's blood sugar = 400 today. Daughter states patient gets a weekly injection for her DM. Source of Information: Patient Exam Limitations: No Limitations History of Present Illness Date Seen by Provider: Dec 28, 2022 Time Seen by Provider: 13:50 Initial Comments 87-year-old female presents to the ER with reports of elevated blood sugar and generalized feeling of not feeling well. Her daughter reports that this morning patient called her after evangelical telling her that she did not feel well. Daughter went to see her and checked her blood sugar and blood pressure. Her blood sugar was over 400 and her blood pressure was 161/76. She is complaining of feeling dizzy. She also complains of a cough, and chest pain only when she coughs. States the cough is chronic due to her congestive heart failure. She denies fevers, shortness of air, abdominal pain, nausea, vomiting, diarrhea, dysuria. She states she has not missed any of her medications. Daughter reports that her blood sugar is often in the upper 100s or 200s. Allergies and Home Medications Allergies Coded Allergies: No Known Drug Allergies (Unverified , 06/05/20) Patient Home Medication List Home Medication List Reviewed: Yes Alendronate Sodium (Alendronate Sodium) 70 Mg Tablet, 70 MG PO , (Reported) Entered as Reported by: RENETTA ROSAS on 12/28/221829 Last Action: Reviewed Amlodipine Besylate (Amlodipine Besylate) 10 Mg Tablet, 10 MG PO DAILY, (Reported) Entered as Reported by: RENETTA ROSAS on 12/28/221829 Last Action: Reviewed Aspirin (Aspirin) 81 Mg Tab.chew, 81 MG PO DAILY, (Reported) Entered as Reported by: LAURE SOW on 06/05/20 0753 Last Action: Reviewed Atorvastatin Calcium (Atorvastatin Calcium) 20 Mg Tablet, 20 MG PO DAILY, (Reported) Entered as Reported by: RENETTA ROSAS on 12/28/221829 Last Action: Reviewed Buspirone HCl (Buspirone HCl) 10 Mg Tablet, 10 MG PO BID, (Reported) Entered as Reported by: RENETTA ROSAS on 12/28/221829 Last Action: Reviewed Clopidogrel Bisulfate (Clopidogrel) 75 Mg Tablet, 75 MG PO DAILY, (Reported) Entered as Reported by: SUSAN KELLER on 12/29/22 1425 Last Action: Reviewed Donepezil HCl (Donepezil HCl) 5 Mg Tablet, 5 MG PO HS, (Reported) Entered as Reported by: RENETTA ROSAS on 12/28/221829 Last Action: Reviewed Exenatide Microspheres (Bydureon Bcise) 2 Mg/0.85 Ml Auto.injct, 2 MG INJ THURS, (Reported) Entered as Reported by: RENETTA ROSAS on 12/28/221829 Last Action: Reviewed Glipizide (Glipizide) 5 Mg Tablet, 5 MG PO DAILY, (Reported) Entered as Reported by: RENETTA ROSAS on 12/28/221829 Last Action: Reviewed Insulin Detemir (Levemir Flexpen) 100 Unit/Ml (3 Ml) Insuln.pen, 15 UNIT SQ BID Prescribed by: ERUM SANTANA on 12/31/22 104 Levetiracetam (Levetiracetam) 500 Mg Tablet, 500 MG PO BID, (Reported) Entered as Reported by: LAURE SOW on 06/05/20 0753 Last Action: Reviewed Levothyroxine Sodium (Levothyroxine Sodium) 75 Mcg Tablet, 75 MCG PO DAILY, (Reported) Entered as Reported by: RENETTA ROSAS on 12/28/221829 Last Action: Reviewed Losartan Potassium (Losartan Potassium) 50 Mg Tablet, 50 MG PO DAILY Prescribed by: ERUM SANTANA on 12/31/22 1046 Pen Needle, Diabetic (Advocate Pen Needle) 33 Gauge X 5/32" Dis.needle, EACH MC BID, (DME) Prescribed by: ERUM SANTANA on 12/31/22 1046 Quetiapine Fumarate (Quetiapine Fumarate) 50 Mg Tablet, 75 MG PO HS, (Reported) Entered as Reported by: RENETTA ROSAS on 12/28/221829 Last Action: Reviewed Sertraline HCl (Sertraline HCl) 100 Mg Tablet, 150 MG PO DAILY, (Reported) Entered as Reported by: RENETTA RODAS on 10/18/15 1734 Last Action: Reviewed Discontinued Medications Albuterol Sulfate (Albuterol Sulfate) 1.25 Mg/3 Ml Vial.neb, 1.25 MG INH QID PRN for AIR HUNGER, (Reported) Discontinued Reason: No Longer Taking Entered as Reported by: LIZ BRENNAN on 06/19/2042 Last Action: Discontinued Benzonatate (Tessalon Perles) 100 Mg Capsule, 100 MG PO TID PRN for COUGH, (Reported) Discontinued Reason: No Longer Taking Entered as Reported by: AMELIA KAUR on 12/28/222028 Last Action: Discontinued Clopidogrel Bisulfate (Clopidogrel) 75 Mg Tablet, 75 MG PO DAILY Discontinued Reason: Duplicate Order Prescribed by: BLANK LUU on 06/06/20802 Last Action: Discontinued Docusate Sodium (Docusate Sodium) 100 Mg Capsule, 100 MG PO BID, (Reported) Discontinued Reason: No Longer Taking Entered as Reported by: LAURE SOW on 06/05/20752 Last Action: Discontinued Exenatide Microspheres (Bydureon Pen) 2 Mg/0.65 Ml Pen.injctr, 2 MG INJ THURS, (Reported) Discontinued Reason: No Longer Taking Entered as Reported by: GT SALGUERO on 03/05/17825 Last Action: Discontinued Tramadol HCl (Tramadol HCl) 50 Mg Tablet, 50 MG PO Q4H PRN for PAIN-MILD (1-4), (Reported) Discontinued Reason: No Longer Taking Entered as Reported by: LAURE SOW on 06/05/20752 Last Action: Discontinued Review of Systems Review of Systems Constitutional: see HPI Past Rcezyjh-Jlumup-Xvxked Hx Immunizations Up To Date Tetanus Booster (TDap): Unknown PED Vaccines UTD: Yes First/Initial COVID19 Vaccinat: 2020 Second COVID19 Vaccination Rafael: 2020 Seasonal Allergies Seasonal Allergies: No Past Medical History Surgery/Hospitalization HX: DM 2, HTN, CHF Surgeries: Yes (CARDIAC STENTS) Cardiac, Coronary Stent, Eye Surgery, 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 Respiratory: Yes Currently Using CPAP: No Currently Using BIPAP: No Cardiac: Yes (STENTS) Coronary Artery Disease, High Cholesterol, Hypertension Neurological: Yes Stroke Female 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 Disorders: Denies GALLERY INTERN History: 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, Menopausal Sexually Transmitted Disease: No HIV/AIDS: No Genitourinary: Yes Kidney Infection Gastrointestinal: No Musculoskeletal: No Arthritis Endocrine: Yes Diabetes, Insulin dep, Hypothyroidsim HEENT: Yes Cataract Loss of Vision: Denies Hearing Impairment: Hard of Hearing Cancer: Yes Skin, Cervical Psychosocial: Yes Anxiety, Depression Integumentary: No Pruritis Blood Disorders: No Adverse Reaction/Blood Tranf: No Family Medical History Family history: Alzheimer's disease 03 MOTHER Family history: Hypertension 03 FATHER 03 MOTHER Myocardial infarction 03 FATHER 03 MOTHER Heart Disease, Hypertension Physical Exam Vital Signs Vital Signs - First Documented 12/28/22 13:47 Temp 36.7 Pulse 91 Resp 14 B/P (MAP) 131/71 (91) Pulse Ox 95 O2 Delivery Room Air Capillary Refill : Height, Weight, BMI Height: 5'2.00" Weight: 170lbs. 2.0oz. [id number]; 27.00 BMI Method:Stated General Appearance: No Apparent Distress, WD/WN Neck: Normal Inspection, Supple Respiratory: Lungs Clear, Normal Breath Sounds, No Accessory Muscle Use, No Respiratory Distress Cardiovascular: Regular Rate, Rhythm Extremity: Normal Range of Motion Neurologic/Psychiatric: Alert, No Motor/Sensory Deficits Skin: Warm/Dry, Other (Skin is dry and leathery) Procedures/Interventions Suture Size: 5-0 Progress/Results/Core Measures Suspected Sepsis SIRS Temperature: Pulse: 91 Respiratory Rate: 14 Laboratory Tests 12/28/22 14:05: White Blood Count 7.3 Blood Pressure 131 /71 Mean: 91 Laboratory Tests 12/28/22 14:05: Creatinine 1.03, Platelet Count 269, Total Bilirubin 0.4 Results/Orders Lab Results Laboratory Tests Test 12/28/22 14:05 12/28/22 14:06 12/28/22 14:44 12/28/22 15:06 Range/Units White Blood Count 7.3 4.3-11.0 10^3/uL Red Blood Count 4.49 3.80-5.11 10^6/uL Hemoglobin 12.6 11.5-16.0 g/dL Hematocrit 39 35-52 % Mean Corpuscular Volume 88 80-99 fL Mean Corpuscular Hemoglobin 28 25-34 pg Mean Corpuscular Hemoglobin Concent 32 32-36 g/dL Red Cell Distribution Width 13.8 10.0-14.5 % Platelet Count 269 130-400 10^3/uL Mean Platelet Volume 9.7 9.0-12.2 fL Immature Granulocyte % (Auto) 0 % Neutrophils (%) (Auto) 68 42-75 % Lymphocytes (%) (Auto) 25 12-44 % Monocytes (%) (Auto) 5 0-12 % Eosinophils (%) (Auto) 2 0-10 % Basophils (%) (Auto) 0 0-10 % Neutrophils # (Auto) 4.9 1.8-7.8 10^3/uL Lymphocytes # (Auto) 1.8 1.0-4.0 10^3/uL Monocytes # (Auto) 0.3 0.0-1.0 10^3/uL Eosinophils # (Auto) 0.1 0.0-0.3 10^3/uL Basophils # (Auto) 0.0 0.0-0.1 10^3/uL Immature Granulocyte # (Auto) 0.0 0.0-0.1 10^3/uL Venous Blood pH 7.37 7.31-7.41 Venous Blood Partial Pressure CO2 44 40-52 MMHG Venous Blood HCO3 25 22-28 MMOL/L Sodium Level 140 135-145 MMOL/L Potassium Level 4.0 3.6-5.0 MMOL/L Chloride Level 108 H 98-107 MMOL/L Carbon Dioxide Level 23 21-32 MMOL/L Anion Gap 9 5-14 MMOL/L Blood Urea Nitrogen 14 7-18 MG/DL Creatinine 1.03 0.60-1.30 MG/DL Estimat Glomerular Filtration Rate 53 BUN/Creatinine Ratio 14 Glucose Level 307 H 70-105 MG/DL Calcium Level 9.1 8.5-10.1 MG/DL Corrected Calcium 9.3 8.5-10.1 MG/DL Phosphorus Level 3.3 2.3-4.7 MG/DL Magnesium Level 1.7 1.6-2.4 MG/DL Total Bilirubin 0.4 0.1-1.0 MG/DL Aspartate Amino Transf (AST/SGOT) 14 5-34 U/L Alanine Aminotransferase (ALT/SGPT) 13 0-55 U/L Alkaline Phosphatase 83 40-136 U/L Total Protein 6.8 6.4-8.2 GM/DL Albumin 3.7 3.2-4.5 GM/DL Thyroid Stimulating Hormone (TSH) 5.60 H 0.35-4.94 UIU/ML Glucometer 291 H 255 H 70-110 MG/DL Urine Color YELLOW Urine Clarity CLOUDY Urine pH 5.5 5-9 Urine Specific Rupert >=1.030 1.016-1.022 Urine Protein TRACE H NEGATIVE Urine Glucose (UA) 1+ H NEGATIVE Urine Ketones NEGATIVE NEGATIVE Urine Nitrite NEGATIVE NEGATIVE Urine Bilirubin NEGATIVE NEGATIVE Urine Urobilinogen 1.0 < = 1.0 MG/DL Urine Leukocyte Esterase NEGATIVE NEGATIVE Urine RBC (Auto) 1+ H NEGATIVE Urine RBC 5-10 H /HPF Urine WBC 0-2 /HPF Urine Squamous Epithelial Cells 2-5 /HPF Urine Crystals NONE /LPF Urine Bacteria LARGE H /HPF Urine Casts NONE /LPF Urine Mucus NEGATIVE /LPF Urine Culture Indicated YES Micro Results Microbiology 12/28/22 Urine Culture - Final, Complete Mixed Bacterial Lisbeth My Orders Orders - GROVER ALVAREZ APRN Accucheck Stat ONCE (12/28/22 13:50) Venous Blood Gas (12/28/22 14:03) Comprehensive Metabolic Panel (12/28/22 14:03) Cbc With Automated Diff (12/28/22 14:03) Ua Culture If Indicated (12/28/22 14:03) Magnesium (12/28/22 14:03) Phosphorus (12/28/22 14:03) Ed Iv/Invasive Line Start (12/28/22 14:03) Ns Iv 500 Ml (Sodium Chloride 0.9%) (12/28/22 14:15) Ekg Tracing (12/28/22 14:55) Urine Culture (12/28/22 14:44) Thyroid Stimulating Hormone (12/28/22 15:30) Ed Admission (Communication) (12/28/22 16:30) Medications Given in ED Vital Signs/I&O 12/28/22 13:47 Temp 36.7 Pulse 91 Resp 14 B/P (MAP) 131/71 (91) Pulse Ox 95 O2 Delivery Room Air Capillary Refill : Blood Pressure Mean: 91 Progress Note : Progress Note Patient seen and evaluated, resting comfortably in bed, no acute distress. Based on exam and symptoms, work-up initiated including CBC, CMP, venous blood gas, UA, magnesium, phosphorus. 500 mL IV fluids ordered. 1631 Labs reviewed. CBC grossly normal. CMP shows slightly increased chloride 108. Elevated glucose 307. Blood gas shows normal venous pH 7.37. Urinalysis shows trace protein, 1+ glucose, negative ketones, negative leukocytes, negative leukocytes, 1+ RBCs, 0-2 WBCs, 2-5 squamous epithelial cells, large bacteria. Blood sugar decreased to 255 after 500 ml of fluid. Labs do not suggest diabetic ketoacidosis. Symptoms may likely actually be related to patient's bradycardia. Evaluation of front desk monitor shows bradycardia at a rate of 50, patient occasionally goes into a bigeminy rhythm during which her heart rate is in the mid 20s. I spoke with Dr. Dexter, cardiology, regarding patient's symptomatic bradycardia. He agrees to consult for patient and to have the hospitalist admit. I added on a TSH which was at 5.6. I spoke with Dr. Gates, hospitalist, for admission. She agrees to admit. She would like me to place admission orders. ECG Initial ECG Impression Date: Dec 28, 2022 Initial ECG Impression Time: 15:03 Initial ECG Rate: 53 Initial ECG Rhythm: S.Rod Initial ECG Intervals: Normal Initial ECG Impression: Sinus Bradycardia Initial ECG Comparisson: Unchanged Departure Impression Primary Impression: Symptomatic bradycardia Disposition: ADMITTED INPATIENT Condition: Stable Admissions Decision to Admit/Date: Dec 28, 2022 Time/Decision to Admit Time: 16:31 Departure-Patient Inst. Referrals: FAHAD GAMBLE MD (PCP/Family) Primary Care Physician Scripts Pen Needle, Diabetic (Advocate Pen Needle) 33 Gauge X 5/32" Dis.needle EACH MC BID for Hyperglycemia, #100 Prov: ERUM SANTANA DO 12/31/22 Insulin Detemir (Levemir Flexpen) 100 Unit/Ml (3 Ml) Insuln.pen 15 UNIT SQ BID, #15 ML Prov: ERUM SANTANA DO 12/31/22 Losartan Potassium (Losartan Potassium) 50 Mg Tablet 50 MG PO DAILY, #30 TAB Prov: ERUM SANTANA DO 12/31/22 GROVER ALVAREZ APRN Dec 28, 2022 14:08
[2022-12-28] MEDS ORDERED: NS IV 500 ML 500 ML IV ONE (14:15)
[2022-12-28 14:20] LABS: BASOPHILS % (AUTO) 0 % (0-10); EOSINOPHILS # (AUTO) 0.1 10^3/uL (0.0-0.3); EOSINOPHILS % (AUTO) 2 % (0-10); HEMATOCRIT 39 % (35-52); HEMOGLOBIN 12.6 g/dL (11.5-16.0); LYMPHOCYTES # (AUTO) 1.8 10^3/uL (1.0-4.0); LYMPHOCYTES % (AUTO) 25 % (12-44); MEAN CORPUSCULAR HEMOGLOBIN 28 pg (25-34); MEAN CORPUSCULAR HGB CONC 32 g/dL (32-36); MEAN CORPUSCULAR VOLUME 88 fL (80-99); MEAN PLATELET VOLUME 9.7 fL (9.0-12.2); MONOCYTES # (AUTO) 0.3 10^3/uL (0.0-1.0); MONOCYTES % (AUTO) 5 % (0-12); NEUTROPHILS # (AUTO) 4.9 10^3/uL (1.8-7.8); NEUTROPHILS % (AUTO) 68 % (42-75); PLATELET COUNT 269 10^3/uL (130-400); WHITE BLOOD COUNT 7.3 10^3/uL (4.3-11.0)
[2022-12-28 14:33] LABS: ALBUMIN 3.7 GM/DL (3.2-4.5)
[2022-12-28 14:34] LABS: CALCIUM 9.1 MG/DL (8.5-10.1)
[2022-12-28 14:36] LABS: TOTAL PROTEIN 6.8 GM/DL (6.4-8.2)
[2022-12-28 14:38] LABS: BILIRUBIN,TOTAL 0.4 MG/DL (0.1-1.0)
[2022-12-28 14:39] LABS: PHOSPHORUS 3.3 MG/DL (2.3-4.7)
[2022-12-28 14:40] LABS: CREATININE SERUM 1.03 MG/DL (0.60-1.30)
[2022-12-28 14:42] LABS: MAGNESIUM 1.7 MG/DL (1.6-2.4)
[2022-12-28 14:50] LABS: BILIRUBIN,URINE NEGATIVE (NEGATIVE); CLARITY,URINE CLOUDY; COLOR,URINE YELLOW; GLUCOSE, URINE (UA) 1+ (NEGATIVE); KETONES,URINE NEGATIVE (NEGATIVE); LEUKOCYTE ESTERASE ,URINE NEGATIVE (NEGATIVE); NITRITE,URINE NEGATIVE (NEGATIVE); PH,URINE 5.5 (5-9); PROTEIN,URINE TRACE (NEGATIVE)
[2022-12-28 15:04] LABS: BACTERIA,URINE LARGE /HPF; WBC,URINE 0-2 /HPF
[2022-12-28 18:18] VITALS: BP 189/86
[2022-12-28] MEDS ORDERED: GLIP5TAB13 PO (18:30)
[2022-12-28] MEDS ORDERED: LEVO75TA6 PO (18:30)
[2022-12-28] MEDS ORDERED: DONE5TAB30 PO (18:30)
[2022-12-28] MEDS ORDERED: EXEN2AUT INJ (18:30)
[2022-12-28] MEDS ORDERED: QUET50TA23 PO (18:30)
[2022-12-28] MEDS ORDERED: AMLO-251 PO (18:30)
[2022-12-28] MEDS ORDERED: ALEN70TA80 PO (18:30)
[2022-12-28] MEDS ORDERED: BUSP10TA95 PO (18:30)
[2022-12-28] MEDS ORDERED: ATOR20TA66 PO (18:30)
[2022-12-28 19:45] VITALS: BP_SYST 149; BP_SYST 177; BP_DIAS 129; BP_DIAS 72
[2022-12-28] MEDS ORDERED: BENZ100C18 PO (20:29)
[2022-12-28 20:30] VITALS: BP 176/90
[2022-12-28] MEDS ORDERED: ACETAMINOPHEN 500 MG TAB (TYLENOL) PO PRN (21:00)
[2022-12-28] MEDS ORDERED: ONDANSETRON 4 MG/2 ML (SDV) Z0FRAN IV PRN (21:00)
[2022-12-28] MEDS ORDERED: hydrALAZINE (APESOLINE) 20 MG/ML VIAL IV PRN (21:00)
[2022-12-28] MEDS ORDERED: DONEPEZIL 5 MG (ARICEPT) TAB PO SCH (21:00)
[2022-12-28] MEDS ORDERED: fentaNYL INJ 100 MCG/2 ML AMP IV PRN (21:00)
[2022-12-28] MEDS: QUEtiapine 25 MG (SEROquel) TAB IMMEDIATE RELEASE PO SCH (21:49)
[2022-12-28] MEDS: CATHETER FLUSH 10 ML SYR IVP SCH (21:49)
[2022-12-28] MEDS: busPIRone 10 MG (BUSPAR) TAB PO SCH (21:49)
[2022-12-28] MEDS: inSUlin ASPART (NovoLOG) 1 UNIT/0.01 ML (CHARGE PER UNIT) SC SCH (21:50)
[2022-12-28 23:17] VITALS: BP 158/73
[2022-12-29 03:23] VITALS: BP 149/63
[2022-12-29 05:25] LABS: BASOPHILS % (AUTO) 0 % (0-10); EOSINOPHILS # (AUTO) 0.1 10^3/uL (0.0-0.3); EOSINOPHILS % (AUTO) 2 % (0-10); HEMATOCRIT 37 % (35-52); HEMOGLOBIN 11.8 g/dL (11.5-16.0); LYMPHOCYTES # (AUTO) 2.1 10^3/uL (1.0-4.0); LYMPHOCYTES % (AUTO) 30 % (12-44); MEAN CORPUSCULAR HEMOGLOBIN 28 pg (25-34); MEAN CORPUSCULAR HGB CONC 32 g/dL (32-36); MEAN CORPUSCULAR VOLUME 87 fL (80-99); MEAN PLATELET VOLUME 9.8 fL (9.0-12.2); MONOCYTES # (AUTO) 0.4 10^3/uL (0.0-1.0); MONOCYTES % (AUTO) 6 % (0-12); NEUTROPHILS # (AUTO) 4.4 10^3/uL (1.8-7.8); NEUTROPHILS % (AUTO) 62 % (42-75); PLATELET COUNT 228 10^3/uL (130-400); WHITE BLOOD COUNT 7.2 10^3/uL (4.3-11.0)
[2022-12-29 05:40] LABS: POTASSIUM 3.8 MMOL/L (3.6-5.0)
[2022-12-29 05:42] LABS: CALCIUM 9.2 MG/DL (8.5-10.1)
[2022-12-29 05:46] LABS: CREATININE SERUM 1.12 MG/DL (0.60-1.30)
[2022-12-29] MEDS: CATHETER FLUSH 10 ML SYR IVP SCH ×3 (05:51→22:00)
[2022-12-29] MEDS: inSUlin ASPART (NovoLOG) 1 UNIT/0.01 ML (CHARGE PER UNIT) SC SCH ×4 (05:51→21:31)
[2022-12-29 08:00] VITALS: BP 160/77
[2022-12-29] MEDS ORDERED: QUEtiapine 25 MG (SEROquel) TAB IMMEDIATE RELEASE PO SCH (09:00)
--- NOTE | 2022-12-29 09:33 | History & Physical ---
History of Present Illness HPI/Chief Complaint Chief complaint: Altered mental status with bradycardia and hyperglycemia HPI: This is an 87-year-old female clinic patient of Dr. Walker with a past medical history of diabetes and hypertension who presented to the ER with altered mental status and weakness found to have significant bradycardia. At this current time patient is much improved and her heart rate is 54. Echocardiogram was ordered. Cardiology will be consulted although she does not really want to have any type of procedure or surgery or seen by a wet milling wheel operator. Family encourages her to obtain cardiology consultation. Home meds were restarted except for Aricept which could cause bradycardia so I did not continue that. Telemetry will be monitored and patient will have PT and OT and evaluate the need for additional rehabilitation. Source: patient, family Exam Limitations: no limitations Date Seen 12/29/22 Time Seen by a Provider: 09:35 Attending Physician Trista Walker MD PCP Admitting Physician: Alexandra Gates MD Attending Physician: Mari Ricks DO Referring Physician Date of Admission Dec 28, 2022 at 16:31 Home Medications & Allergies Home Medications Reviewed patient Home Medication Reconciliation performed by pharmacy medication reconciliations senior quality technician and/or nursing. Patients Allergies have been reviewed. Allergies Allergies Coded Allergies No Known Drug Allergies (Gfjnmxeutm82/24/20) Past Ioomobi-Sfrlyl-Hbfxsq Hx Past Med/Social Hx: Reviewed Nursing Past Med/Soc Hx, Reviewed and Corrections made Patient Social History Marrital Status: single Employed/Student: retired Alcohol Use: Denies Use Smoking Status: Never a Smoker 2nd Hand Smoke Exposure: Yes Recent Hopitalizations: No Immunizations Up To Date Tetanus Booster (TDap): Unknown Pediatric: Yes Date of Pneumonia Vaccine: Apr 12, 2015 Date of Influenza Vaccine: Jun 12, 2020 Seasonal Allergies Seasonal Allergies: No Past Medical History Surgeries: Cardiac, Coronary Stent, Eye Surgery, 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 Currently Using CPAP: No Currently Using BIPAP: No Cardiac: Coronary Artery Disease, High Cholesterol, Hypertension Neurological: Dementia, Stroke Sexually Transmitted Disease: No HIV/AIDS: No Female 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 Disorders: Denies 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, Menopausal Genitourinary: Kidney Infection Musculoskeletal: Arthritis Endocrine: Diabetes, Insulin dep, Hypothyroidsim HEENT: Cataract Loss of Vision: Denies Hearing Impairment: Hard of Hearing Cancer: Skin, Cervical Psychosocial: Anxiety, Depression Skin/Integumentary: Pruritis History of Blood Disorders: No Adverse Reaction to Blood [place]: No Family History Family history: Alzheimer's disease 03 MOTHER Family history: Hypertension 03 FATHER 03 MOTHER Myocardial infarction 03 FATHER 03 MOTHER Heart Disease, Hypertension Review of Systems Constitutional: see HPI, dizziness, malaise, weakness EENTM: no symptoms reported Respiratory: no symptoms reported Cardiovascular: no symptoms reported Gastrointestinal: no symptoms reported Genitourinary: no symptoms reported Musculoskeletal: no symptoms reported Skin: no symptoms reported Psychiatric/Neurological: Depressed, Weakness All Other Systems Reviewed Negative Unless Noted: Yes Physical Exam Physical Exam Vital Signs Vital Signs - First Documented 12/28/22 13:47 Temp 36.7 Pulse 91 Resp 14 B/P (MAP) 131/71 (91) Pulse Ox 95 O2 Delivery Room Air Capillary Refill : Height, Weight, BMI Height: 5'2.00" Weight: 170lbs. 2.0oz. 77.082050ei; 29.86 BMI Method:Stated General Appearance: No Apparent Distress, WD/WN, Chronically ill Neck: Normal Inspection, Supple Respiratory: Lungs Clear, Normal Breath Sounds, No Accessory Muscle Use, No Respiratory Distress Cardiovascular: Regular Rate, Rhythm, No Edema, No Murmur, Bradycardia Extremity: Normal Range of Motion Neurologic/Psychiatric: Alert, No Motor/Sensory Deficits, Abnormal Gait, Depressed Affect, Motor Weakness Skin: Warm/Dry, Other (Skin is dry and leathery) Results Results/Procedures Labs Laboratory Tests 12/28/22 14:05 12/29/22 05:08 Patient resulted labs reviewed. Assessment/Plan Admission Diagnosis Assessment: Altered mental status Weakness Bradycardia Hypertension Hyperlipidemia Dementia Plan: PT and OT Cardiology consult Home meds except for Aricept Monitor on telemetry Admission Status: Observation Clinical Quality Measures AMI/AHF: ASA po Prior to arrival: MARI Galvez DO Dec 29, 2022 09:33
[2022-12-29] MEDS ORDERED: BENZONATATE 100 MG (TESSALON) CAPSULE PO PRN (09:45)
[2022-12-29] MEDS ORDERED: NON-FORMULARY MEDICATION 1 EA EA (Alendronate Sodium 70 MG) PO SCH (09:45)
[2022-12-29] MEDS: cefTRIAXone IV/IM 1,000 MG in NS (IVPB) 50 ML IV SCH (10:07)
[2022-12-29] MEDS: QUEtiapine 25 MG (SEROquel) TAB IMMEDIATE RELEASE PO SCH ×2 (10:07→21:30)
[2022-12-29] MEDS: busPIRone 10 MG (BUSPAR) TAB PO SCH ×2 (10:19→21:29)
--- NOTE | 2022-12-29 10:38 | Physical Therapy Evaluation ---
PT Evaluation-General Medical Diagnosis Admission Date Dec 28, 2022 at 16:31 Medical Diagnosis: symptomatic bradycardia Onset Date: Dec 28, 2022 Therapy Diagnosis Therapy Diagnosis: debility/weakness Height/Weight Height (Feet): 5 Height (Inches): 2.00 Weight (Pounds): 170 Weight (Ounces): 2.0 Precautions Precautions/Isolations: Fall Prevention, Standard Precautions Referral Physician: Rambo Reason for Referral: Evaluation/Treatment Medical History Pertinent Medical History: Arthritis, CAD, CVA, DM, Heart Failure, HTN Current History ER via family due to elevated blood sugar Reviewed History: Yes Social History Home: Single Level Current Living Status: Alone Entry Into Home: Ramp Prior Prior Level of Function SCALE: Activities may be completed with or without assistive devices. 7-Fdvbqdmtdp-szzbgos completes the activity by him/herself with no assistance from a helper. 5-Set-up or Clean-up Assistance-helper sets up or cleans up; patient completes activity. Arbuckle assists only prior to or following the activity. 4-Supervision or Touching Assistance-helper provides verbal cues and/or touching/steadying and/or contact guard assistance as patient completes activity. Assistance may be provided throughout the activity or intermittently. 3-Partial/Moderate Assistance-helper does LESS THAN HALF the effort. Arbuckle lifts, holds or supports trunk or limbs, but provides less than half the effort. 2-Substantial/Maximal Assistance-helper does MORE THAN HALF the effort. Arbuckle lifts or holds trunk or limbs and provides more than half the effort. 4-Dcbzyocgf-bjpucv does ALL the effort. Patient does none of the effort to complete the activity. Or, the assistance of 2 or more helpers is required for the patient to complete the activity. If activity was not attempted, code reason: 7-Patient Refused. 9-Not Applicable-not attempted and the patient did not perform the activity before the current illness, exacerbation or injury. 10-Not Attempted due to Environmental Limitations-(lack of equipment, weather restraints, etc.). 88-Not Attempted due to Medical Conditions or Safety Concerns. Bed Mobility: 6 Transfers (B,C,W/C): 6 Gait: 9 Stairs: 9 Wheelchair Mobility: 6 Indoor Mobility (Ambulation): Not Applicalbe Stairs: Not Applicalbe Prior Devices Use: Manual wheelchair non ambulatory PLOF per patient and family/transfers to w/c only for all mobil ity PT Evaluation-Current Subjective Patient agrees to PT. Objective Patient Orientation: Person, Time, Situation Attachments: IV ROM/Strength ROM Lower Extremities bilateral LE WFL Strength Lower Extremities 3/5 grossly bilateral LE all planes Integumentary/Posture Bowel Incontinence: No Bladder Incontinence: No Posture kyphotic/trunk flexed due to no standing activity PLOF Neuromuscular (Tone, Coordination, Reflexes) grossly intact Sensory Vision: Functional Hearing: Impaired Transfers Lying to Sitting/Side of Bed(Q: 6 Sit to Stand (QC): 4 Chair/Plv-vv-Alnwd Xfer(QC): 4 SBA SPT bed to w/c Balance Sitting Static: Normal Sitting Dynamic: Normal Standing Static: Fair Standing Dynamic: Fair Assessment/Needs Patient is non ambulatory PLOF. Patient will be seen short term by skilled PT to address functional strength to ensure safe transfers bed to w/c as performed in home. Rehab Potential: Fair PT Care Home Goals Director Trial Goals PT Care Home Goals Time Frame: Jan 03, 2023 Roll Left & Right (QC): 6 Sit to Lying (QC): 6 Lying-Sitting on Side/Bed(QC): 6 PT Plan Problem List Problem List: Activity Tolerance, Functional Strength, Safety, Balance, Transfer, Bed Mobility Treatment/Plan Treatment Plan: Continue Plan of Care Treatment Plan: Bed Mobility, Education, Functional Activity Nilsa, Functional Strength, Safety, Therapeutic Exercise, Transfers Treatment Duration: Jan 03, 2023 Frequency: 5 times per week Estimated Hrs Per Day: .25 hour per day Patient and/or Family Agrees t: Yes Time Time In: 1017 Time Out: 1030 DATE: Dec 29, 2022 Total Billed Treatment Time: 13 [facility] TREV[facility] Dec 29, 2022 10:38
[2022-12-29 11:24] VITALS: BP 141/83
[2022-12-29 12:00] VITALS: BP 153/76
--- NOTE | 2022-12-29 13:39 | Occupational Therapy Eval ---
OT Evaluation-General/PLF Medical Diagnosis Admission Date Dec 28, 2022 at 16:31 Medical Diagnosis: symptomatic bradycardia Onset Date: Dec 28, 2022 Therapy Diagnosis Therapy Diagnosis: weakness/debility Height/Weight Height (Feet): 5 Height (Inches): 2.00 Weight (Pounds): 170 Weight (Ounces): 2.0 Precautions Precautions/Isolations: Fall Prevention, Standard Precautions Weight Bear Status Weight Bearing Restriction: Full Weight Bearing Referral Physician: Rambo Referral Reason: Activity Tolerance, Self Care, Evaluation/Treatment Medical History Pertinent Medical History: Arthritis, CAD, CVA, DM, Heart Failure, HTN Additional Medical History Family reports they brought patient in d/t poorly controlled BS. Patient has hired workers in home however family reports help is unreliable and inconsistent. Family reports patient is B/B incont at home and does not shower or change clothing appropriately. Social History Home: Single Level Current Living Status: Alone Entry Into Home: Ramp ADL-Prior Level of Function SCALE: Activities may be completed with or without assistive devices. 5-Vpouucmxiq-vlozjkx completes the activity by him/herself with no assistance from a helper. 5-Set-up or Clean-up Assistance-helper sets up or cleans up; patient completes activity. [place] assists only prior to or following the activity. 4-Supervision or Touching Assistance-helper provides verbal cues and/or touching/steadying and/or contact guard assistance as patient completes activity. Assistance may be provided throughout the activity or intermittently. 3-Partial/Moderate Assistance-helper does LESS THAN HALF the effort. [place] lifts, holds or supports trunk or limbs, but provides less than half the effort. 2-Substantial/Maximal Assistance-helper does MORE THAN HALF the effort. [place] lifts or holds trunk or limbs and provides more than half the effort. 7-Dzudtluue-fbgrns does ALL the effort. Patient does none of the effort to complete the activity. Or, the assistance of 2 or more helpers is required for the patient to complete the activity. If activity was not attempted, code reason: 7-Patient Refused. 9-Not Applicable-not attempted and the patient did not perform the activity before the current illness, exacerbation or injury. 10-Not Attempted due to Environmental Limitations-(lack of equipment, weather restraints, etc.). 88-Not Attempted due to Medical Conditions or Safety Concerns. Self Care: Needed Some Help Functional Cognition: Needed Some Help DME/Equipment Comments WC is primary mode of mobility. Patient is able to stand from bed w/ CGA using bedrail.kyphotic/trunk flexed due to no standing activity Drive Self: No OT Current Status Subjective Patient is sleeping on arrival, family gives permission to wake patient Pain Numeric Pain Scale: 0-No Pain Mental Status/Objective Patient Orientation: Person Current Hearing Aids: No (hard of hearing) Upper Extremity ROM BUE ROM WFLS Upper Extremity Strength +3/5 grossly ADL-Treatment Eating (QC): 6 Oral Hygiene (QC): 5 Shower/Bathe Self (QC): 7 (OT provided and performed shampoo cap and hair grooming) Upper Body Dressing (QC): 4 Lower Body Dressing (QC): 4 On/Off Footwear (QC): 5 (slipper socks) Toileting Hygiene (QC): 4 (family reports B/B incont at home) Education OT Patient Education: Correct positioning, Instructions to caregiver, Modified ADL techniques, Progress toward Goal/Update tx plan, Purpose of tx/functional activities, Reviewed precautions, Rehab process, Safety issues, Transfer techniques, Use of adapted equipment Teaching Recipient: Patient, Family Teaching Methods: Demonstration, Discussion Response to Teaching: Reinforcement Needed OT Nursing Home Goals Human Anatomy Teacher Goals Eating (QC): 6 Oral Hygiene (QC): 6 Toileting Hygiene (QC): 5 Upper Body Dressing (QC): 5 Lower Body Dressing (QC): 5 On/Off Footwear (QC): 5 1=Demonstrate adherence to instructed precautions during ADL tasks. 2=Patient will verbalize/demonstrate understanding of assistive devices/modifications for ADL. 3=Patient will improve strength/tolerance for activity to enable patient to perform ADL's. OT Education/Plan Problem List/Assessment Assessment: Decreased Activ Tolerance, Decreased UE Strength, Impaired Cognition, Impaired Coordination, Impaired Funct Balance, Impaired Self-Care Skills Discharge Recommendations Plan/Recommendations: Continue POC Treatment Plan/Plan of Care Treatment,Training & Education: Yes Patient would benefit from OT for education, treatment and training to promote independence in ADL's, mobility, safety and/or upper extremity function for ADL's. Plan of Care: ADL Retraining, Caregiver Training, Functional Mobility, Group Exercise/Act as Ind, UE Funct Exercise/Act Treatment Duration: Jan 03, 2023 Frequency: 3 times per week (3-5 times per week) Estimated Hrs Per Day: .25 hour per day Agreement: Yes Rehab Potential: Fair Time Start Time: 13:00 Stop Time: 13:20 DATE: Dec 29, 2022 Total Time Billed (hr/min): 20 Billed Treatment Time EVM 20 BELGICA GILL OT Dec 29, 2022 13:39
--- NOTE | 2022-12-29 14:17 | Consultation-Cardiology ---
HPI-Cardiology Cardiology Consultation: Date of Consultation 12/29/22 Date of Admission Attending Physician Trista Walker MD Admitting Physician Admitting Physician: Alexandra Gates MD Attending Physician: Mari Ricks DO Consulting Physician Henry MONTERO MD HPI: Time Seen by a Provider: 14:17 Chief Complaint: Dizziness This is a 87-year-old lady who presents with uncontrolled diabetes and uncontrolled hypertension. She has history of coronary artery disease, PAD. She also complains of mild dizziness. Bradycardia noted in the ER.. Review of Systems-Cardiology Review of Systems Constitutional: no symptoms reported Eyes: no symptoms reported Ears/Nose/Throat: no symptoms reported Respiratory: no symptoms reported Cardiovascular: lightheadedness Gastrointestinal: no symptoms reported Genitourinary: no symptoms reported Musculoskeletal: no symptoms reported Psychiatric/Neurological: other (Dizziness) UPW-Wzinjc-Akmhwe Hx Patient Social History Smoking Status: Never a Smoker 2nd Hand Smoke Exposure: Yes Alcohol Use?: No Pt feels they are or have been: No Immunizations Up To Date Tetanus Booster (TDap): Unknown Date of Pneumonia Vaccine: Apr 12, 2015 Date of Influenza Vaccine: Jun 12, 2020 Past Medical History PMH As described under Assessment. Family Medical History Family Medical History: She reports both her parents had HTN and CAD. Family History: Family history: Alzheimer's disease 03 MOTHER Family history: Hypertension 03 FATHER 03 MOTHER Myocardial infarction 03 FATHER 03 MOTHER Allergies and Home Medications Allergies Coded Allergies: No Known Drug Allergies (Unverified , 06/05/20) Patient Home Medication List Home Medication List Reviewed: Yes Alendronate Sodium (Alendronate Sodium) 70 Mg Tablet, 70 MG PO , (Reported) Entered as Reported by: RENETTA ROSAS on 12/28/221829 Last Action: Converted Amlodipine Besylate (Amlodipine Besylate) 10 Mg Tablet, 10 MG PO DAILY, (Reported) Entered as Reported by: RENETTA ROSAS on 12/28/221829 Last Action: Continued Aspirin (Aspirin) 81 Mg Tab.chew, 81 MG PO DAILY, (Reported) Entered as Reported by: LAURE SOW on 06/05/20 7063 Last Action: Continued Atorvastatin Calcium (Atorvastatin Calcium) 20 Mg Tablet, 20 MG PO DAILY, (Reported) Entered as Reported by: RENETTA ROSAS on 12/28/221829 Last Action: Continued Benzonatate (Tessalon Perles) 100 Mg Capsule, 100 MG PO TID PRN for COUGH, (Reported) Entered as Reported by: AMELIA KAUR on 12/28/222028 Last Action: Continued Buspirone HCl (Buspirone HCl) 10 Mg Tablet, 10 MG PO BID, (Reported) Entered as Reported by: RENETTA ROSAS on 12/28/221829 Last Action: Continued Clopidogrel Bisulfate (Clopidogrel) 75 Mg Tablet, 75 MG PO DAILY Prescribed by: BLANK LUU on 06/06/20 0803 Last Action: Continued Donepezil HCl (Donepezil HCl) 5 Mg Tablet, 5 MG PO HS, (Reported) Entered as Reported by: RENETTA ROSAS on 12/28/221829 Last Action: Continued Exenatide Microspheres (Bydureon Bcise) 2 Mg/0.85 Ml Auto.injct, 2 MG INJ THURS, (Reported) Entered as Reported by: RENETTA ROSAS on 12/28/221829 Last Action: Held Glipizide (Glipizide) 5 Mg Tablet, 5 MG PO DAILY, (Reported) Entered as Reported by: RENETTA ROSAS on 12/28/221829 Last Action: Held Levetiracetam (Levetiracetam) 500 Mg Tablet, 500 MG PO BID, (Reported) Entered as Reported by: LAURE SOW on 06/05/20 0753 Last Action: Continued Levothyroxine Sodium (Levothyroxine Sodium) 75 Mcg Tablet, 75 MCG PO DAILY, (Reported) Entered as Reported by: RENETTA ROSAS on 12/28/221829 Last Action: Continued Quetiapine Fumarate (Quetiapine Fumarate) 50 Mg Tablet, 75 MG PO BID, (Reported) Entered as Reported by: RENETTA ROSAS on 12/28/221829 Last Action: Converted Sertraline HCl (Sertraline HCl) 100 Mg Tablet, 150 MG PO DAILY, (Reported) Entered as Reported by: RENETTA RODAS on 10/18/15 4383 Last Action: Continued Discontinued Medications Albuterol Sulfate (Albuterol Sulfate) 1.25 Mg/3 Ml Vial.neb, 1.25 MG INH QID PRN for AIR HUNGER, (Reported) Discontinued Reason: No Longer Taking Entered as Reported by: LIZ BRENNAN on 06/19/20 0842 Last Action: Discontinued Docusate Sodium (Docusate Sodium) 100 Mg Capsule, 100 MG PO BID, (Reported) Discontinued Reason: No Longer Taking Entered as Reported by: LAURE SOW on 06/05/20752 Last Action: Discontinued Exenatide Microspheres (Bydureon Pen) 2 Mg/0.65 Ml Pen.injctr, 2 MG INJ THURS, (Reported) Discontinued Reason: No Longer Taking Entered as Reported by: GT SALGUERO on 03/05/17 0826 Last Action: Discontinued Tramadol HCl (Tramadol HCl) 50 Mg Tablet, 50 MG PO Q4H PRN for PAIN-MILD (1-4), (Reported) Discontinued Reason: No Longer Taking Entered as Reported by: LAURE SOW on 06/05/20752 Last Action: Discontinued Exam Vital Signs Vital Signs Date Time Temp Pulse Resp B/P (MAP) Pulse Ox O2 Delivery O2 Flow Rate FiO2 12/29/22 11:24 36.3 49 12 141/83 (102) Room Air 12/29/22 08:00 96 Physical Exam Constitutional: No distress. CVS: Sinus bradycardia with no murmur. Chest: Bilateral breath sounds. No pedal edema. Labs Laboratory Tests Test 12/28/22 14:44 12/28/22 15:06 12/28/22 21:07 12/29/22 05:08 Range/Units Urine Color YELLOW Urine Clarity CLOUDY Urine pH 5.5 5-9 Urine Specific Lilly >=1.030 1.016-1.022 Urine Protein TRACE H NEGATIVE Urine Glucose (UA) 1+ H NEGATIVE Urine Ketones NEGATIVE NEGATIVE Urine Nitrite NEGATIVE NEGATIVE Urine Bilirubin NEGATIVE NEGATIVE Urine Urobilinogen 1.0 < = 1.0 MG/DL Urine Leukocyte Esterase NEGATIVE NEGATIVE Urine RBC (Auto) 1+ H NEGATIVE Urine RBC 5-10 H /HPF Urine WBC 0-2 /HPF Urine Squamous Epithelial Cells 2-5 /HPF Urine Crystals NONE /LPF Urine Bacteria LARGE H /HPF Urine Casts NONE /LPF Urine Mucus NEGATIVE /LPF Urine Culture Indicated YES Glucometer 255 H 253 H 70-110 MG/DL White Blood Count 7.2 4.3-11.0 10^3/uL Red Blood Count 4.21 3.80-5.11 10^6/uL Hemoglobin 11.8 11.5-16.0 g/dL Hematocrit 37 35-52 % Mean Corpuscular Volume 87 80-99 fL Mean Corpuscular Hemoglobin 28 25-34 pg Mean Corpuscular Hemoglobin Concent 32 32-36 g/dL Red Cell Distribution Width 13.8 10.0-14.5 % Platelet Count 228 130-400 10^3/uL Mean Platelet Volume 9.8 9.0-12.2 fL Immature Granulocyte % (Auto) 0 % Neutrophils (%) (Auto) 62 42-75 % Lymphocytes (%) (Auto) 30 12-44 % Monocytes (%) (Auto) 6 0-12 % Eosinophils (%) (Auto) 2 0-10 % Basophils (%) (Auto) 0 0-10 % Neutrophils # (Auto) 4.4 1.8-7.8 10^3/uL Lymphocytes # (Auto) 2.1 1.0-4.0 10^3/uL Monocytes # (Auto) 0.4 0.0-1.0 10^3/uL Eosinophils # (Auto) 0.1 0.0-0.3 10^3/uL Basophils # (Auto) 0.0 0.0-0.1 10^3/uL Immature Granulocyte # (Auto) 0.0 0.0-0.1 10^3/uL Sodium Level 138 135-145 MMOL/L Potassium Level 3.8 3.6-5.0 MMOL/L Chloride Level 106 98-107 MMOL/L Carbon Dioxide Level 25 21-32 MMOL/L Anion Gap 7 5-14 MMOL/L Blood Urea Nitrogen 18 7-18 MG/DL Creatinine 1.12 0.60-1.30 MG/DL Estimat Glomerular Filtration Rate 48 BUN/Creatinine Ratio 16 Glucose Level 194 H 70-105 MG/DL Calcium Level 9.2 8.5-10.1 MG/DL Free Thyroxine 0.86 0.70-1.48 NG/DL Test 12/29/22 10:41 Range/Units Glucometer 257 H 70-110 MG/DL ECG Impression ECG Initial ECG Rhythm: S.Rod A/P-Cardiology Assessment/Admission Diagnosis Sinus bradycardia, CAD, PAD, Uncontrolled diabetes, Uncontrolled hypertension Plan Sinus bradycardia: Lowest heart rate in the mid 40s. She was 52 beats a minute when I saw her. And she would go up into the early 60s. Event monitor for 30 days as an outpatient followed by follow-up with Dr. Lemon/Cabrera. If symptomatic bradycardia in the future she may be a candidate for a pacemaker. Defer management of diabetes to the primary team.On admission blood sugars were over 400. PAD: Previous peripheral angiogram of Jun 05, 2020: Successful balloon angioplasty of the right anterior tibial with reduction of stenosis to less than 50%. Successful balloon angioplasty of the proximal right peroneal which reduced the stenosis to less than 50%, but the mid peroneal remains occluded. Chronically occluded right posterior tibial to which intervention was not attempted. Chronically proximally occluded left posterior tibial and peroneal arteries and severe diffuse disease of the anterior tibial to which successful balloon angioplasty was carried out on Jun 19, 2020 Critical limb ischemia, bilateral, treated with PCI on 06/05/20 and 06/19/20 (see above) S/p multiple strokes in early to mid 2015; now as bilat leg weakness that is more on the L, poor balance, and loss of R visual field. S/p L TKR in Jul 2015 CAD - Cardiac cath of 06-19-15 showed a widely patent stent in the prox LAD which is known to be Promus 2.5 x 8 mm stent placed in 2009. The mid LAD has tandem up to 50% lesions across which the FFR is 0.85, indicateing hemodynamic insignificance. The RCA has 40 to 50% stenoses in its prox and distal portions. LVEF 60-65%. Normal LVEDP. No significant MR. Echo 06/04/15 showed LVEF 65-70%, mod conc LVH, mild AoV sclerosis, mild AI and TR, mild diastolic dysfunction, PASP 25 mmHg DM II h/o hyperlipidemia,managed and followed by her PCP Mild carotid arterial disease diagnosed at [facility] at the time of CVA in October 2015, per patient report Henry MONTERO MD Dec 29, 2022 14:17
[2022-12-29] MEDS ORDERED: CLOP75TA28 PO (14:25)
[2022-12-29 16:00] VITALS: BP 139/76
[2022-12-29 20:23] VITALS: BP 162/70
[2022-12-30] VITALS: BP 163/71
[2022-12-30 04:00] VITALS: BP 170/73
[2022-12-30] MEDS: CATHETER FLUSH 10 ML SYR IVP SCH ×3 (06:00→22:01)
[2022-12-30 08:00] VITALS: BP 150/76
--- NOTE | 2022-12-30 08:12 | Cardiology Progress Note ---
Subjective Date Seen by Provider: Dec 30, 2022 Time Seen by Provider: 08:09 Subjective/Events-last exam Patient is laying down in bed, still lethargic, borderline bradycardic Review of Systems General: No Chills, No Night Sweats; Fatigue; No Malaise, No Appetite, No Other HEENT: No Head Aches, No Visual Changes, No Eye Pain, No Ear Pain, No Dysphasia, No Sinus Congestion, No Post Nasal Drip, No Sore Throat, No Other Pulmonary: No Dyspnea, No Cough, No Pleuritic Chest Pain, No Other Cardiovascular: No: Chest Pain, Palpitations, Orthopnea, Paroxysmal Noc. Dyspnea, Edema, Lt Headedness, Other Objective-Cardiology Exam Last Set of Vital Signs Vital Signs 12/29/22 12/30/22 20: 04:00 Temp 36.2 Pulse 51 Resp 11 B/P (MAP) 170/73 (105) Pulse Ox 96 O2 Delivery Room Air I&O Intake and Output 12/30/22 00:00 Intake Total 400 ml Output Total 350 ml Balance 50 ml Intake Oral 400 ml Output Urine Total 350 ml General: Alert, Cooperative HEENT: Atraumatic, PERRLA Neck: Supple, No JVD, No Thyromegaly Lungs: Clear to Auscultation, Normal Air Movement Heart: Regular Rate, Normal S1, Normal S2, Other (Systolic murmur) Abdomen: Normal Bowel Sounds, Soft, No Tenderness, No Hepatosplenomegaly, No Masses Extremities: No Clubbing, No Cyanosis, No Edema, Normal Pulses, No Tenderness/Swelling Skin: No Rashes, No Breakdown, No Significant Lesion Neuro: Normal Speech, Normal Tone, Sensation Intact Psych/Mental Status: Mood NL Results Lab Laboratory Tests Test 12/29/22 10:41 12/29/22 15:40 12/29/22 20:37 Range/Units Glucometer 257 H 156 H 168 H 70-110 MG/DL A/P-Cardiology Admission Diagnosis Sinus bradycardia Hypertension Peripheral arterial disease Coronary artery disease Assessment/Plan Sinus bradycardia: Lowest heart rate in the mid 40s. Currently heart rate in the 50s while laying down in bed comfortably We will start physical therapy and evaluate her heart rate response. Continue to monitor Hypertension, poor control, maintained on amlodipine I will add losartan and evaluate tolerance and response. Diabetes mellitus, poor control, hyperglycemia Managed by primary care team. PAD: Previous peripheral angiogram of Jun 05, 2020: Successful balloon angioplasty of the right anterior tibial with reduction of stenosis to less than 50%. Successful balloon angioplasty of the proximal right peroneal which reduced the stenosis to less than 50%, but the mid peroneal remains occluded. Chronically occluded right posterior tibial to which intervention was not attempted. Chronically proximally occluded left posterior tibial and peroneal arteries and severe diffuse disease of the anterior tibial to which successful balloon angioplasty was carried out on Jun 19, 2020 History of critical limb ischemia, bilateral, treated with PCI on 06/05/20 and 06/19/20 (see above) S/p multiple strokes in early to mid 2015; now as bilat leg weakness that is more on the L, poor balance, and loss of R visual field. S/p L TKR in Jul 2015 CAD - Cardiac cath of 06-19-15 showed a widely patent stent in the prox LAD which is known to be Promus 2.5 x 8 mm stent placed in 2009. The mid LAD has tandem up to 50% lesions across which the FFR is 0.85, indicateing hemodynamic insignificance. The RCA has 40 to 50% stenoses in its prox and distal portions. LVEF 60-65%. Normal LVEDP. No significant MR. Echo 06/04/15 showed LVEF 65-70%, mod conc LVH, mild AoV sclerosis, mild AI and TR, mild diastolic dysfunction, PASP 25 mmHg DM II h/o hyperlipidemia,managed and followed by her PCP Mild carotid arterial disease diagnosed at [facility] at the time of CVA in October 2015, per patient report JULIO NORTON MD Dec 30, 2022 08:12
[2022-12-30] MEDS: inSUlin ASPART (NovoLOG) 1 UNIT/0.01 ML (CHARGE PER UNIT) SC SCH ×4 (08:29→22:15)
--- NOTE | 2022-12-30 09:12 | Progress Note ---
Subjective Date Seen by a Provider: Dec 30, 2022 Time Seen by a Provider: 10:00 Subjective/Events-last exam Patient doing a lot better Participating in therapy Bradycardia still a concern cardiology Daughter at the bedside Delay in discharge considering pacemaker Review of Systems General: Fatigue, Malaise Objective Exam Last Set of Vital Signs Vital Signs Date Time Temp Pulse Resp B/P (MAP) Pulse Ox O2 Delivery O2 Flow Rate FiO2 12/30/22 08:00 35.9 53 20 150/76 (100) 100 Nasal Cannula 2.00 Capillary Refill : I&O Intake and Output 12/30/22 00:00 Intake Total 400 ml Output Total 350 ml Balance 50 ml Intake Oral 400 ml Output Urine Total 350 ml General: Alert, Oriented X3, Cooperative, No Acute Distress Lungs: Clear to Auscultation, Normal Air Movement Heart: Normal S1, Normal S2, No Murmurs, Other ( bradycardic) Psych/Mental Status: Mental Status NL, Mood NL Results Lab Laboratory Tests 12/29/22 10:41: Glucometer 257H 12/29/22 15:40: Glucometer 156H 12/29/22 20:37: Glucometer 168H Microbiology 12/28/22 Urine Culture - Final, Complete Mixed Bacterial Lisbeth Assessment/Plan Assessment/Plan Assess & Plan/Chief Complaint Assessment: Altered mental status Weakness Bradycardia Hypertension Hyperlipidemia Dementia Plan: PT and OT Cardiology consult Home meds except for Aricept Monitor on telemetry May need pacemaker Clinical Quality Measures AMI/AHF: ASA po Prior to arrival: ERUM Galvez DO Dec 30, 2022 09:12
[2022-12-30] MEDS: ASPIRIN 81 MG CHEW (CHILDREN'S ASA) PO SCH (10:16)
[2022-12-30] MEDS: LEVOTHYROXINE 75 MCG (LEVOTHROID) TABLET PO SCH (10:16)
[2022-12-30] MEDS: CLOPIDOGREL 75 MG (PLAVIX) TABLET PO SCH (10:16)
[2022-12-30] MEDS: amLODIPine 10 MG (NORVASC) TAB PO SCH (10:16)
[2022-12-30] MEDS: cefTRIAXone IV/IM 1,000 MG in NS (IVPB) 50 ML IV SCH (10:17)
[2022-12-30] MEDS: busPIRone 10 MG (BUSPAR) TAB PO SCH ×2 (10:17→22:00)
[2022-12-30] MEDS: LOSARTAN 50 MG (COZAAR) TAB PO SCH (10:17)
[2022-12-30] MEDS: SERTRALINE 100 MG (ZOLOFT) TAB PO SCH (11:05)
[2022-12-30 11:31] VITALS: BP 130/67
--- NOTE | 2022-12-30 14:05 | Physical Therapy Progress Note ---
Therapy Progress Note Patient declined PT this p.m. due to fatigue and she reports she has been up all day. PT will attempt tomorrow a.m. 1 ref TREVOR JOY PT Dec 30, 2022 14:05
--- NOTE | 2022-12-30 15:08 | Occupational Ther Daily Note ---
OT Current Status-Daily Note Subjective resting in bed, c/o chest pain right side Mental Status/Objective Patient Orientation: Person Attachments: Telemetry ADL-Treatment Declines ADL participation and agrees to mild UE THER EX Therapy Code Descriptions/Definitions Functional [place] Measure: 0=Not Assessed/NA 4=Minimal Assistance 1=Total Assistance 5=Supervision or Setup 2=Maximal Assistance 6=Modified [place] 3=Moderate Assistance 7=Complete IndependenceSCALE: Activities may be completed with or without assistive devices. 2-Ijvnpxolsz-olhogfn completes the activity by him/herself with no assistance from a helper. 5-Set-up or Clean-up Assistance-helper sets up or cleans up; patient completes activity. [place] assists only prior to or following the activity. 4-Supervision or Touching Assistance-helper provides verbal cues and/or touching/steadying and/or contact guard assistance as patient completes activity. Assistance may be provided throughout the activity or intermittently. 3-Partial/Moderate Assistance-helper does LESS THAN HALF the effort. [place] lifts, holds or supports trunk or limbs, but provides less than half the effort. 2-Substantial/Maximal Assistance-helper does MORE THAN HALF the effort. [place] lifts or holds trunk or limbs and provides more than half the effort. 5-Wlstzihza-uoqqms does ALL the effort. Patient does none of the effort to complete the activity. Or, the assistance of 2 or more helpers is required for the patient to complete the activity. If activity was not attempted, code reason: 7-Patient Refused. 9-Not Applicable-not attempted and the patient did not perform the activity before the current illness, exacerbation or injury. 10-Not Attempted due to Environmental Limitations-(lack of equipment, weather restraints, etc.). 88-Not Attempted due to Medical Conditions or Safety Concerns. Other Treatment BUE ther ex, c/o of right side sharp pain 3-4 times, RN notified and patient positioned in reclined supine position. Family is present duration of OT and with RN. Education OT Patient Education: Correct positioning, Exercise program, Purpose of tx/functional activities, Reviewed precautions, Safety issues Teaching Recipient: Patient, Family Teaching Methods: Discussion Response to Teaching: Reinforcement Needed OT Custodial Goals Custodial Goals Eating (QC): 6 Oral Hygiene (QC): 6 Toileting Hygiene (QC): 5 Upper Body Dressing (QC): 5 Lower Body Dressing (QC): 5 On/Off Footwear (QC): 5 1=Demonstrate adherence to instructed precautions during ADL tasks. 2=Patient will verbalize/demonstrate understanding of assistive devices/modifications for ADL. 3=Patient will improve strength/tolerance for activity to enable patient to perform ADL's. OT Education/Plan Problem List/Assessment Assessment: Decreased Activ Tolerance, Impaired Self-Care Skills Discharge Recommendations Plan/Recommendations: Continue POC Treatment Plan/Plan of Care Patient would benefit from OT for education, treatment and training to promote independence in ADL's, mobility, safety and/or upper extremity function for ADL's. Plan of Care: ADL Retraining, Caregiver Training, Functional Mobility, Group Exercise/Act as Ind, UE Funct Exercise/Act Treatment Duration: Jan 03, 2023 Frequency: 3 times per week (3-5 times per week) Estimated Hrs Per Day: .25 hour per day Agreement: Yes Rehab Potential: Fair OT will continue to monitor patient status and POC Time Start Time: 14:37 Stop Time: 14:51 DATE: Dec 30, 2022 Total Time Billed (hr/min): 14 Billed Treatment Time EX 14 BELGICA GILL OT Dec 30, 2022 15:08
[2022-12-30 16:00] VITALS: BP 116/68
[2022-12-30] MEDS: QUEtiapine 25 MG (SEROquel) TAB IMMEDIATE RELEASE PO SCH (22:00)
[2022-12-30 23:51] VITALS: BP 114/59
[2022-12-31 03:40] VITALS: BP 119/61
[2022-12-31] MEDS ORDERED: ENOXAPARIN 40 MG/0.4 ML (LOVENOX) SYR SC SCH (06:00)
[2022-12-31 06:11] LABS: BASOPHILS % (AUTO) 0 % (0-10); EOSINOPHILS # (AUTO) 0.2 10^3/uL (0.0-0.3); EOSINOPHILS % (AUTO) 3 % (0-10); HEMATOCRIT 39 % (35-52); HEMOGLOBIN 12.5 g/dL (11.5-16.0); LYMPHOCYTES # (AUTO) 1.8 10^3/uL (1.0-4.0); LYMPHOCYTES % (AUTO) 25 % (12-44); MEAN CORPUSCULAR HEMOGLOBIN 29 pg (25-34); MEAN CORPUSCULAR HGB CONC 32 g/dL (32-36); MEAN CORPUSCULAR VOLUME 90 fL (80-99); MEAN PLATELET VOLUME 9.7 fL (9.0-12.2); MONOCYTES # (AUTO) 0.4 10^3/uL (0.0-1.0); MONOCYTES % (AUTO) 5 % (0-12); NEUTROPHILS # (AUTO) 4.8 10^3/uL (1.8-7.8); NEUTROPHILS % (AUTO) 66 % (42-75); PLATELET COUNT 225 10^3/uL (130-400); WHITE BLOOD COUNT 7.2 10^3/uL (4.3-11.0)
[2022-12-31 06:28] LABS: ALBUMIN 3.3 GM/DL (3.2-4.5); POTASSIUM 4.2 MMOL/L (3.6-5.0)
[2022-12-31] MEDS: inSUlin ASPART (NovoLOG) 1 UNIT/0.01 ML (CHARGE PER UNIT) SC SCH (06:28)
[2022-12-31 06:30] LABS: CALCIUM 9.1 MG/DL (8.5-10.1)
[2022-12-31] MEDS: CATHETER FLUSH 10 ML SYR IVP SCH (06:30)
[2022-12-31 06:31] LABS: TOTAL PROTEIN 6.5 GM/DL (6.4-8.2)
[2022-12-31 06:33] LABS: BILIRUBIN,TOTAL 0.2 MG/DL (0.1-1.0)
[2022-12-31 06:34] LABS: CREATININE SERUM 1.2 MG/DL (0.60-1.30)
[2022-12-31 07:44] VITALS: BP 127/62
[2022-12-31] MEDS: busPIRone 10 MG (BUSPAR) TAB PO SCH (08:22)
[2022-12-31] MEDS: amLODIPine 10 MG (NORVASC) TAB PO SCH (08:22)
[2022-12-31] MEDS: ASPIRIN 81 MG CHEW (CHILDREN'S ASA) PO SCH (08:22)
[2022-12-31] MEDS: CLOPIDOGREL 75 MG (PLAVIX) TABLET PO SCH (08:22)
[2022-12-31] MEDS: SERTRALINE 100 MG (ZOLOFT) TAB PO SCH (08:22)
[2022-12-31] MEDS: LOSARTAN 50 MG (COZAAR) TAB PO SCH (08:22)
[2022-12-31] MEDS: LEVOTHYROXINE 75 MCG (LEVOTHROID) TABLET PO SCH (08:22)
[2022-12-31] MEDS: cefTRIAXone IV/IM 1,000 MG in NS (IVPB) 50 ML IV SCH (10:30)
[2022-12-31] MEDS ORDERED: PEN-53 MC (10:46)
[2022-12-31] MEDS ORDERED: LOSA50TA63 PO (10:46)
[2022-12-31] MEDS ORDERED: INSU100I88 SQ (10:46)
--- NOTE | 2022-12-31 10:47 | D/C HH Face to Face Order ---
D/C HH Face to Face Orders Reconcile Patient Problems Problems Reviewed?: Yes Instructions for Patient HH Patient Instructions/FollowUp: pcp 1 week Physician to follow Patient: aldair Lawrence Diet for Home: ADA Diet Patient Problems: DM Patient Data-Allergies,Ht & Wt Patient Allergies: Coded Allergies: No Known Drug Allergies (Unverified , 06/05/20) Height (Feet): 5 Height (Inches): 2.00 Weight (Pounds): 170 Weight (Ounces): 2.0 Home Health Need/Face to Face Date of Face to Face: Dec 31, 2022 Clinical Findings: Generalized weakness and fatigue, Muscle weakness I have seen Pt [id number]: Yes Discharged To: Home Diagnosis/Conditions: dm bradycardic Patient is Homebound due to: CognItive deficits Homebound Status Due to the above stated illness, injury or surgical procedure (medical condi tion or diagnosis) and associated clinical findings, the patient is homebound because of his/her inability to leave home except with aid of a supportive device and/or person AND leaving the home requires a considerable and taxing effort or is medically contraindicated. Pt req the following assistanc: [facility] Nursing Orders Home Health Services Order: Nursing Services, Wall And Floor Tiler-Evaluate & Treat, Physical Therapy-Evaluate & Treat Certify Stmt I certify that this patient is under my care and that I, a nurse practitioner or a physician; a family practice physician assistant working with me, had a face to face encounter that - meets the physician face to face encounter requirements with this patient as dated. ERUM SANTANA DO Dec 31, 2022 10:47
--- NOTE | 2022-12-31 10:48 | Discharge Summary ---
Diagnosis/Chief Complaint Date of Admission Dec 30, 2022 at 09:00 Date of Discharge Discharge Date: Dec 31, 2022 Discharge Diagnosis Assessment: Altered mental status Weakness Bradycardia Hypertension Hyperlipidemia Dementia Plan: PT and OT Cardiology consult Home meds except for Aricept Monitor on telemetry Discharge Summary Discharge Physical Examination Allergies: Coded Allergies: No Known Drug Allergies (Unverified , 06/05/20) Vitals & I&Os Vital Signs Date Time Temp Pulse Resp B/P (MAP) Pulse Ox O2 Delivery O2 Flow Rate FiO2 12/31/22 07:53 98 Room Air 12/31/22 07:44 36.2 51 11 127/62 (83) 2.00 General Appearance: Alert, Oriented X3, Cooperative Respiratory: Clear to Auscultation Cardiovascular: Regular Rate Psych/Mental Status: Mental Status NL Hospital Course Was the Problem List Reviewed?: Yes Hospital course: Patient had an uneventful hospital course after she was admitted for generalized weakness and found to have bradycardia and abnormal UA. Empiric antibiotics given but urine culture showed normal gina and that was discontinued before discharge. Cardiology was consulted. Bradycardia remained stable no evidence of any decompensation and she was able to walk with PT and OT. Severely high sugars and hemoglobin A1c of 9.5 prompted the addition of insulin and that was sent into her pharmacy. She was deemed stable for discharge. Labs (last 24 hrs) Laboratory Tests 12/28/22 14:05: White Blood Count 7.3, Red Blood Count 4.49, Hemoglobin 12.6, Hematocrit 39, Mean Corpuscular Volume 88, Mean Corpuscular Hemoglobin 28, Mean Corpuscular Hemoglobin Concent 32, Red Cell Distribution Width 13.8, Platelet Count 269, Mean Platelet Volume 9.7, Immature Granulocyte % (Auto) 0, Neutrophils (%) (Auto) 68, Lymphocytes (%) (Auto) 25, Monocytes (%) (Auto) 5, Eosinophils (%) (Auto) 2, Basophils (%) (Auto) 0, Neutrophils # (Auto) 4.9, Lymphocytes # (Auto) 1.8, Monocytes # (Auto) 0.3, Eosinophils # (Auto) 0.1, Basophils # (Auto) 0.0, Immature Granulocyte # (Auto) 0.0, Venous Blood pH 7.37, Venous Blood Partial Pressure CO2 44, Venous Blood HCO3 25, Sodium Level 140, Potassium Level 4.0, Chloride Level 108H, Carbon Dioxide Level 23, Anion Gap 9, Blood Urea Nitrogen 14, Creatinine 1.03, Estimat Glomerular Filtration Rate 53, BUN/Creatinine Ratio 14, Glucose Level 307H, Calcium Level 9.1, Corrected Calcium 9.3, Phosphorus Level 3.3, Magnesium Level 1.7, Total Bilirubin 0.4, Aspartate Amino Transf ( AST/SGOT) 14, Alanine Aminotransferase (ALT/SGPT) 13, Alkaline Phosphatase 83, Total Protein 6.8, Albumin 3.7, Thyroid Stimulating Hormone (TSH) 5.60H 12/28/22 14:06: Glucometer 291H 12/28/22 14:44: Urine Color YELLOW, Urine Clarity CLOUDY, Urine pH 5.5, Urine Specific [place] >=1.030, Urine Protein TRACEH, Urine Glucose (UA) 1+H, Urine Ketones NEGATIVE, Urine Nitrite NEGATIVE, Urine Bilirubin NEGATIVE, Urine Urobilinogen 1.0, Urine Leukocyte Esterase NEGATIVE, Urine RBC (Auto) 1+H, Urine RBC 5-10H, Urine WBC 0- 2, Urine Squamous Epithelial Cells 2-5, Urine Crystals NONE, Urine Bacteria LARGEH, Urine Casts NONE, Urine Mucus NEGATIVE, Urine Culture Indicated YES 12/28/22 15:06: Glucometer 255H 12/28/22 21:07: Glucometer 253H 12/29/22 05:08: White Blood Count 7.2, Red Blood Count 4.21, Hemoglobin 11.8, Hematocrit 37, Mean Corpuscular Volume 87, Mean Corpuscular Hemoglobin 28, Mean Corpuscular Hemoglobin Concent 32, Red Cell Distribution Width 13.8, Platelet Count 228, Mean Platelet Volume 9.8, Immature Granulocyte % (Auto) 0, Neutrophils (%) (Auto) 62, Lymphocytes (%) (Auto) 30, Monocytes (%) (Auto) 6, Eosinophils (%) (Auto) 2, Basophils (%) (Auto) 0, Neutrophils # (Auto) 4.4, Lymphocytes # (Auto) 2.1, Monocytes # (Auto) 0.4, Eosinophils # (Auto) 0.1, Basophils # (Auto) 0.0, Immature Granulocyte # (Auto) 0.0, Sodium Level 138, Potassium Level 3.8, Chloride Level 106, Carbon Dioxide Level 25, Anion Gap 7, Blood Urea Nitrogen 18, Creatinine 1.12, Estimat Glomerular Filtration Rate 48, BUN/Creatinine Ratio 16, Glucose Level 194H, Mean Blood Glucose 226H, Hemoglobin A1c 9.5H, Calcium Level 9.2, Free Thyroxine 0.86 12/29/22 10:41: Glucometer 257H 12/29/22 15:40: Glucometer 156H 12/29/22 20:37: Glucometer 168H 12/30/22 09:00: Lab Scanned Report Referred Lab Report 12/30/22 10:28: Glucometer 277H 12/30/22 15:58: Glucometer 149H 12/30/22 22:10: Glucometer 249H 12/31/22 06:04: White Blood Count 7.2, Red Blood Count 4.38, Hemoglobin 12.5, Hematocrit 39, Mean Corpuscular Volume 90, Mean Corpuscular Hemoglobin 29, Mean Corpuscular Hemoglobin Concent 32, Red Cell Distribution Width 14.0, Platelet Count 225, Mean Platelet Volume 9.7, Immature Granulocyte % (Auto) 1, Neutrophils (%) (Auto) 66, Lymphocytes (%) (Auto) 25, Monocytes (%) (Auto) 5, Eosinophils (%) (Auto) 3, Basophils (%) (Auto) 0, Neutrophils # (Auto) 4.8, Lymphocytes # (Auto) 1.8, Monocytes # (Auto) 0.4, Eosinophils # (Auto) 0.2, Basophils # (Auto) 0.0, Immature Granulocyte # (Auto) 0.1, Sodium Level 142, Potassium Level 4.2, Chloride Level 106, Carbon Dioxide Level 28, Anion Gap 8, Blood Urea Nitrogen 31H, Creatinine 1.20, Estimat Glomerular Filtration Rate 44, BUN/Creatinine Ratio 26, Glucose Level 142H, Calcium Level 9.1, Corrected Calcium 9.7, Total Bilirubin 0.2, Aspartate Amino Transf (AST/SGOT) 15, Alanine Aminotransferase (ALT/SGPT) 9, Alkaline Phosphatase 76, Total Protein 6.5, Albumin 3.3 12/31/22 06:05: Glucometer 160H 12/31/22 10:47: Glucometer 235H Microbiology 12/28/22 Urine Culture - Final, Complete Mixed Bacterial Gina Pending Labs Microbiology Date/Time Source Procedure Growth Status 12/28/22 14:44 Urine Clean Catch Urine Culture - Final Mixed Bacterial Gina Complete Laboratory Tests 12/28/22 14:05: White Blood Count 7.3, Red Blood Count 4.49, Hemoglobin 12.6, Hematocrit 39, Mean Corpuscular Volume 88, Mean Corpuscular Hemoglobin 28, Mean Corpuscular Hemoglobin Concent 32, Red Cell Distribution Width 13.8, Platelet Count 269, Mean Platelet Volume 9.7, Immature Granulocyte % (Auto) 0, Neutrophils (%) (Auto) 68, Lymphocytes (%) (Auto) 25, Monocytes (%) (Auto) 5, Eosinophils (%) (Auto) 2, Basophils (%) (Auto) 0, Neutrophils # (Auto) 4.9, Lymphocytes # (Auto) 1.8, Monocytes # (Auto) 0.3, Eosinophils # (Auto) 0.1, Basophils # (Auto) 0.0, Immature Granulocyte # (Auto) 0.0, Venous Blood pH 7.37, Venous Blood Partial Pressure CO2 44, Venous Blood HCO3 25, Sodium Level 140, Potassium Level 4.0, Chloride Level 108, Carbon Dioxide Level 23, Anion Gap 9, Blood Urea Nitrogen 14, Creatinine 1.03, Estimat Glomerular Filtration Rate 53, BUN/Creatinine Ratio 14, Glucose Level 307, Calcium Level 9.1, Corrected Calcium 9.3, Phosphorus Level 3.3, Magnesium Level 1.7, Total Bilirubin 0.4, Aspartate Amino Transf (AST/SGOT) 14, Alanine Aminotransferase (ALT/SGPT) 13, Alkaline Phosphatase 83, Total Protein 6.8, Albumin 3.7, Thyroid Stimulating Hormone (TSH) 5.60 12/28/22 14:06: Glucometer 291 12/28/22 14:44: Urine Color YELLOW, Urine Clarity CLOUDY, Urine pH 5.5, Urine Specific [place] >=1.030, Urine Protein TRACE, Urine Glucose (UA) 1+, Urine Ketones NEGATIVE, Urine Nitrite NEGATIVE, Urine Bilirubin NEGATIVE, Urine Urobilinogen 1.0, Urine Leukocyte Esterase NEGATIVE, Urine RBC (Auto) 1+, Urine RBC 5-10, Urine WBC 0-2, Urine Squamous Epithelial Cells 2-5, Urine Crystals NONE, Urine Bacteria LARGE, Urine Casts NONE, Urine Mucus NEGATIVE, Urine Culture Indicated YES 12/28/22 15:06: Glucometer 255 12/28/22 21:07: Glucometer 253 12/29/22 05:08: White Blood Count 7.2, Red Blood Count 4.21, Hemoglobin 11.8, Hematocrit 37, Mean Corpuscular Volume 87, Mean Corpuscular Hemoglobin 28, Mean Corpuscular Hemoglobin Concent 32, Red Cell Distribution Width 13.8, Platelet Count 228, Mean Platelet Volume 9.8, Immature Granulocyte % (Auto) 0, Neutrophils (%) (Auto) 62, Lymphocytes (%) (Auto) 30, Monocytes (%) (Auto) 6, Eosinophils (%) (Auto) 2, Basophils (%) (Auto) 0, Neutrophils # (Auto) 4.4, Lymphocytes # (Auto) 2.1, Monocytes # (Auto) 0.4, Eosinophils # (Auto) 0.1, Basophils # (Auto) 0.0, Immature Granulocyte # (Auto) 0.0, Sodium Level 138, Potassium Level 3.8, Chloride Level 106, Carbon Dioxide Level 25, Anion Gap 7, Blood Urea Nitrogen 18, Creatinine 1.12, Estimat Glomerular Filtration Rate 48, BUN/Creatinine Ratio 16, Glucose Level 194, Mean Blood Glucose 226, Hemoglobin A1c 9.5, Calcium Level 9.2, Free Thyroxine 0.86 12/29/22 10:41: Glucometer 257 12/29/22 15:40: Glucometer 156 12/29/22 20:37: Glucometer 168 12/30/22 09:00: Lab Scanned Report Referred Lab Report 12/30/22 10:28: Glucometer 277 12/30/22 15:58: Glucometer 149 12/30/22 22:10: Glucometer 249 12/31/22 06:04: White Blood Count 7.2, Red Blood Count 4.38, Hemoglobin 12.5, Hematocrit 39, Mean Corpuscular Volume 90, Mean Corpuscular Hemoglobin 29, Mean Corpuscular Hemoglobin Concent 32, Red Cell Distribution Width 14.0, Platelet Count 225, Mean Platelet Volume 9.7, Immature Granulocyte % (Auto) 1, Neutrophils (%) (Auto) 66, Lymphocytes (%) (Auto) 25, Monocytes (%) (Auto) 5, Eosinophils (%) ( Auto) 3, Basophils (%) (Auto) 0, Neutrophils # (Auto) 4.8, Lymphocytes # (Auto) 1.8, Monocytes # (Auto) 0.4, Eosinophils # (Auto) 0.2, Basophils # (Auto) 0.0, Immature Granulocyte # (Auto) 0.1, Sodium Level 142, Potassium Level 4.2, Chloride Level 106, Carbon Dioxide Level 28, Anion Gap 8, Blood Urea Nitrogen 31, Creatinine 1.20, Estimat Glomerular Filtration Rate 44, BUN/Creatinine Ratio 26, Glucose Level 142, Calcium Level 9.1, Corrected Calcium 9.7, Total Bilirubin 0.2, Aspartate Amino Transf (AST/SGOT) 15, Alanine Aminotransferase (ALT/SGPT) 9, Alkaline Phosphatase 76, Total Protein 6.5, Albumin 3.3 12/31/22 06:05: Glucometer 160 12/31/22 10:47: Glucometer 235 Discharge Home Medications: Active Scripts Active Advocate Pen Needle (Pen Needle, Diabetic) 33 Gauge X 5/32" Dis.needle Each MC BID Levemir Flexpen (Insulin Detemir) 100 Unit/Ml (3 Ml) Insuln.pen 15 Unit SQ BID Losartan Potassium 50 Mg Tablet 50 Mg PO DAILY Reported Clopidogrel (Clopidogrel Bisulfate) 75 Mg Tablet 75 Mg PO DAILY Quetiapine Fumarate 50 Mg Tablet 75 Mg PO HS TAKES 1 & (50MG) TABS LAST FILLED 07-14-2022 #135/90 DAY SUPPLY Levothyroxine Sodium 75 Mcg Tablet 75 Mcg PO DAILY LAST FILLED 07-14-2022 #90/90 DAY SUPPLY Bydureon Bcise (Exenatide Microspheres) 2 Mg/0.85 Ml Auto.injct 2 Mg INJ THURS Alendronate Sodium 70 Mg Tablet 70 Mg PO THURS Amlodipine Besylate 10 Mg Tablet 10 Mg PO DAILY Glipizide 5 Mg Tablet 5 Mg PO DAILY Buspirone HCl 10 Mg Tablet 10 Mg PO BID Donepezil HCl 5 Mg Tablet 5 Mg PO HS Atorvastatin Calcium 20 Mg Tablet 20 Mg PO DAILY Aspirin 81 Mg Tab.chew 81 Mg PO DAILY Levetiracetam 500 Mg Tablet 500 Mg PO BID LAST FILLED 07-14-2022 #180/90 DAY SUPPLY Sertraline HCl 100 Mg Tablet 150 Mg PO DAILY TAKES 1 & (100MG) TABS Instructions to patient/family Please see electronic discharge instructions given to patient. Clinical Quality Measures AMI/AHF: ASA po Prior to arrival: ERUM Galvez DO Dec 31, 2022 10:48
--- NOTE | 2022-12-31 10:54 | Cardiology Progress Note ---
Subjective Date Seen by Provider: Dec 31, 2022 Time Seen by Provider: 09:05 Subjective/Events-last exam Patient is up in bed, denies any dizziness or lightheadedness. Review of Systems General: No Chills, No Night Sweats, No Fatigue, No Malaise, No Appetite, No Other HEENT: No Head Aches, No Visual Changes, No Eye Pain, No Ear Pain, No Dysphasia, No Sinus Congestion, No Post Nasal Drip, No Sore Throat, No Other Pulmonary: No Dyspnea, No Cough, No Pleuritic Chest Pain, No Other Cardiovascular: No: Chest Pain, Palpitations, Orthopnea, Paroxysmal Noc. Dyspnea, Edema, Lt Headedness, Other Gastrointestinal: No: Nausea, Vomiting, Abdominal Pain, Diarrhea, Constipation, Melena, Hematochezia, Other Genitourinary: No Dysuria, No Frequency, No Incontinence, No Hematuria, No Retention, No Other Musculoskeletal: No: other, neck pain, shoulder pain, arm pain, back pain, hand pain, leg pain, foot pain Neurological: No: Weakness, Numbness, Incoordination, Change in speech, Confusion, Seizures, Other Objective-Cardiology Exam Last Set of Vital Signs Vital Signs 12/31/22 12/31/22 07:44 07:53 Temp 36.2 Pulse 51 Resp 11 B/P (MAP) 127/62 (83) Pulse Ox 98 O2 Delivery Room Air O2 Flow Rate 2.00 I&O Intake and Output 12/30/22 23:59 Intake Total 800 ml Output Total 800 ml Balance 0 ml Intake Oral 800 ml Output Urine Total 800 ml General: Alert, Oriented X3, Cooperative, No Acute Distress HEENT: Atraumatic, PERRLA Neck: Supple, No JVD, No Thyromegaly Lungs: Clear to Auscultation, Normal Air Movement Heart: Normal S1, Normal S2, No Murmurs, Other ( bradycardic) Abdomen: Normal Bowel Sounds, Soft, No Tenderness, No Hepatosplenomegaly, No Ma sses Extremities: No Clubbing, No Cyanosis, No Edema, Normal Pulses, No Tender ness/Swelling Skin: No Rashes, No Breakdown, No Significant Lesion Neuro: Normal Speech, Normal Tone, Sensation Intact Psych/Mental Status: Mental Status NL, Mood NL Results Lab Laboratory Tests 12/31/22 06:04 A/P-Cardiology Admission Diagnosis Sinus bradycardia Hypertension Peripheral arterial disease Coronary artery disease Assessment/Plan Sinus bradycardia: Lowest heart rate in the mid 40s. Patient's heart rate is in the upper 50s while laying down and it improved to the 70s with any exertion She is currently asymptomatic Worked in the morning with physical therapy Okay for discharge and follow-up as an outpatient Hypertension, controlled Diabetes mellitus, poor control, hyperglycemia Managed by primary care team. PAD: Previous peripheral angiogram of Jun 05, 2020: Successful balloon angioplasty of the right anterior tibial with reduction of stenosis to less than 50%. Successful balloon angioplasty of the proximal right peroneal which reduced the stenosis to less than 50%, but the mid peroneal remains occluded. Chronically occluded right posterior tibial to which intervention was not attempted. Chronically proximally occluded left posterior tibial and peroneal arteries and severe diffuse disease of the anterior tibial to which successful balloon angioplasty was carried out on Jun 19, 2020 History of critical limb ischemia, bilateral, treated with PCI on 06/05/20 and 06/19/20 (see above) S/p multiple strokes in early to mid 2015; now as bilat leg weakness that is more on the L, poor balance, and loss of R visual field. S/p L TKR in Jul 2015 CAD - Cardiac cath of 06-19-15 showed a widely patent stent in the prox LAD which is known to be Promus 2.5 x 8 mm stent placed in 2009. The mid LAD has tandem up to 50% lesions across which the FFR is 0.85, indicateing hemodynamic insignificance. The RCA has 40 to 50% stenoses in its prox and distal portions. LVEF 60-65%. Normal LVEDP. No significant MR. Echo 06/04/15 showed LVEF 65-70%, mod conc LVH, mild AoV sclerosis, mild AI and TR, mild diastolic dysfunction, PASP 25 mmHg DM II h/o hyperlipidemia,managed and followed by her PCP Mild carotid arterial disease diagnosed at [facility] at the time of CVA in October 2015, per patient report Ok for discharge from cardiology standpoint Supervisory-Addendum Brief Supervisory Addendum Participated in pt care: history, MDM, physical Personally performed: exam, history, MDM Care discussed with: NIEVES Results interpretation: Verified all documentation Notes: Patient was seen and evaluated with Susan, examination performed, management plan was discussed, agree with the current scribed note, I made few changes to the note using Italic font Patient was seen at bedside, she was laying down comfortably, heart rate in the 50s but improved to the 70s with any exertion Discussed starting an exercise program Monitor blood pressure Okay for discharge and follow-up with primary machine brusher Dr. Rees as an outpatient SUSAN TRUJILLO Dec 31, 2022 10:54 JULIO NORTON MD Dec 31, 2022 11:15
== END 2022-12-31 11:06 | disposition home health service (06) | DRG 310 ==
LOC: EDUNIT# 13:45 → ER 13:46 → CSD 16:31 → OBSVTOIN 12-30 09:00
PROVIDERS: ADMIT Family Medicine; ATTEND Internal Medicine
DX: R00.1 Bradycardia, unspecified (principal); I10 Essential (primary) hypertension; E11.51 Type 2 diabetes mellitus with diabetic peripheral angiopathy without gangrene; E11.65 Type 2 diabetes mellitus with hyperglycemia; I77.9 Disorder of arteries and arterioles, unspecified; I25.10 Atherosclerotic heart disease of native coronary artery without angina pectoris; I69.398 Other sequelae of cerebral infarction; H54.61 Unqualified visual loss, right eye, normal vision left eye; R26.89 Other abnormalities of gait and mobility; I69.344 Monoplegia of lower limb following cerebral infarction affecting left non-dominant side; I69.341 Monoplegia of lower limb following cerebral infarction affecting right dominant side; E78.00 Pure hypercholesterolemia, unspecified; F03.90 Unspecified dementia, unspecified severity, without behavioral disturbance, psychotic disturbance, mood disturbance, and anxiety; E03.9 Hypothyroidism, unspecified; F41.9 Anxiety disorder, unspecified; F32.A Depression, unspecified; Z96.651 Presence of right artificial knee joint; Z95.5 Presence of coronary angioplasty implant and graft; Z79.890 Hormone replacement therapy; Z79.84 Long term (current) use of oral hypoglycemic drugs; Z79.4 Long term (current) use of insulin; Z79.899 Other long term (current) drug therapy; Z85.828 Personal history of other malignant neoplasm of skin; Z85.41 Personal history of malignant neoplasm of cervix uteri
CPT/HCPCS: 36415; 80048; 80053; 81000; 82805; 82947; 83036; 83735; 84100; 84439; 84443; 85025; 87088; 93005

== ENCOUNTER → 2023-01-21 | Outpatient (CLI) | payer MEDICARE, OTHER ==
[~2023-01-21] MED LIST changes: +ALEN70TA80 PO; +BENZ100C18 PO; +BUSP10TA95 PO; +EXEN2AUT INJ; +GLIP5TAB13 PO; +INSU100I88 SQ; +LEVO75TA6 PO; +LOSA50TA63 PO; +PEN-53 MC; +QUET50TA23 PO
== END ==
LOC: CARD 07:50
PROVIDERS: ATTEND Family Medicine
DX: R00.1 Bradycardia, unspecified (principal)
CPT/HCPCS: 93225; 93226

== ENCOUNTER 2023-02-05 11:01 | Emergency (ER) | payer MEDICARE, OTHER ==
[~2023-02-05] VITALS: Ht 162 cm; Wt 77.0 kg
--- NOTE | 2023-02-05 11:13 | ED Chest Pain ---
General Chief Complaint: Chest Pain Stated Complaint: CHEST PAINS Source: patient Exam Limitations: no limitations History of Present Illness Date Seen by Provider: Feb 05, 2023 Time Seen by Provider: 11:11 Initial Comments Patient is a 87-year-old female with a history of CVA, peripheral artery disease, coronary artery disease, uncontrolled diabetes and hypertension who presents ED from home by EMS for chest pain. She states she has been having intermittent chest pain for several days. Started having pain today described as pressure substernal chest without radiation. Associate shortness of breath with a cough. Patient home health nurse came out and requested patient to go to the ER. According to EMS they gave her 4 baby aspirin's with improved her chest pain. She is currently asymptomatic. She states she saw her primary care ph ysician Dr. Walker a few days ago regarding this chest pain. She denies of any fever, chills, vomiting, diarrhea, abdominal pain, dysuria, hematuria. Similar type pain in the past. She states that she did feel weak earlier today. History of stroke. She reports currently on blood thinners Allergies and Home Medications Allergies Coded Allergies: No Known Drug Allergies (Unverified , 06/05/20) Patient Home Medication List Home Medication List Reviewed: Yes Alendronate Sodium (Alendronate Sodium) 70 Mg Tablet, 70 MG PO TH, (Reported) Entered as Reported by: RENETTA ROSAS on 12/28/221829 Amlodipine Besylate (Amlodipine Besylate) 10 Mg Tablet, 10 MG PO DAILY, (Reported) Entered as Reported by: RENETTA ROSAS on 12/28/221829 Aspirin (Aspirin) 81 Mg Tab.chew, 81 MG PO DAILY, (Reported) Entered as Reported by: LAURE SOW on 06/05/20 0753 Atorvastatin Calcium (Atorvastatin Calcium) 20 Mg Tablet, 20 MG PO DAILY, (Reported) Entered as Reported by: RENETTA ROSAS on 12/28/221829 Buspirone HCl (Buspirone HCl) 10 Mg Tablet, 10 MG PO BID, (Reported) Entered as Reported by: RENETTA ROSAS on 12/28/221829 Clopidogrel Bisulfate (Clopidogrel) 75 Mg Tablet, 75 MG PO DAILY, (Reported) Entered as Reported by: SUSAN KELLER on 12/29/22 1425 Donepezil HCl (Donepezil HCl) 5 Mg Tablet, 5 MG PO HS, (Reported) Entered as Reported by: RENETTA ROSAS on 12/28/221829 Exenatide Microspheres (Bydureon Bcise) 2 Mg/0.85 Ml Auto.injct, 2 MG INJ THURS, (Reported) Entered as Reported by: RENETTA ROSAS on 12/28/221829 Glipizide (Glipizide) 5 Mg Tablet, 5 MG PO DAILY, (Reported) Entered as Reported by: RENETTA ROSAS on 12/28/221829 Insulin Detemir (Levemir Flexpen) 100 Unit/Ml (3 Ml) Insuln.pen, 15 UNIT SQ BID Prescribed by: ERUM SANTANA on 12/31/22 104 Levetiracetam (Levetiracetam) 500 Mg Tablet, 500 MG PO BID, (Reported) Entered as Reported by: LAURE SOW on 06/05/20 0753 Levothyroxine Sodium (Levothyroxine Sodium) 75 Mcg Tablet, 75 MCG PO DAILY, (Reported) Entered as Reported by: RENETTA ROSAS on 12/28/221829 Losartan Potassium (Losartan Potassium) 50 Mg Tablet, 50 MG PO DAILY Prescribed by: ERUM SANTANA on 12/31/22 1046 Pen Needle, Diabetic (Advocate Pen Needle) 33 Gauge X 5/32" Dis.needle, EACH MC BID, (DME) Prescribed by: ERUM SANTANA on 12/31/22 1046 Quetiapine Fumarate (Quetiapine Fumarate) 50 Mg Tablet, 75 MG PO HS, (Reported) Entered as Reported by: RENETTA ROSAS on 12/28/221829 Sertraline HCl (Sertraline HCl) 100 Mg Tablet, 150 MG PO DAILY, (Reported) Entered as Reported by: RENETTA RODAS on 10/18/15 1734 Review of Systems Review of Systems Constitutional: No chills, No diaphoresis, No fever, No malaise, No weakness EENTM: No Blurred Vision, No Eye Pain Respiratory: Cough, Shortness of Air Cardiovascular: Chest Pain Gastrointestinal: Denies Abdominal Pain, Denies Diarrhea, Denies Nausea, Denies Vomiting Genitourinary: Denies Burning, Denies Drainage, Denies Frequency Musculoskeletal: No back pain, No joint pain Skin: No change in color All Other Systems Reviewed Negative Unless Noted: Yes Past Rnjaixl-Dhmtru-Mlgbxb Hx Immunizations Up To Date Tetanus Booster (TDap): Unknown PED Vaccines UTD: Yes First/Initial COVID19 Vaccinat: 2020 Second COVID19 Vaccination Rafael: 2020 Seasonal Allergies Seasonal Allergies: No Past Medical History Surgery/Hospitalization HX: DM 2, HTN, CHF Surgeries: Yes (CARDIAC STENTS) Cardiac, Coronary Stent, Eye Surgery, 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 Respiratory: Yes Currently Using CPAP: No Currently Using BIPAP: No Cardiac: Yes (STENTS) Coronary Artery Disease, High Cholesterol, Hypertension Neurological: Yes Dementia, Stroke Female 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 Disorders: Denies FLEXIBLE NANNY History: 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, Menopausal Sexually Transmitted Disease: No HIV/AIDS: No Genitourinary: Yes Kidney Infection Gastrointestinal: No Musculoskeletal: No Arthritis Endocrine: Yes Diabetes, Insulin dep, Hypothyroidsim HEENT: Yes Cataract Loss of Vision: Denies Hearing Impairment: Hard of Hearing Cancer: Yes Skin, Cervical Psychosocial: Yes Anxiety, Depression Integumentary: No Pruritis Blood Disorders: No Adverse Reaction/Blood Tranf: No Family Medical History Family history: Alzheimer's disease 03 MOTHER Family history: Hypertension 03 FATHER 03 MOTHER Myocardial infarction 03 FATHER 03 MOTHER Heart Disease, Hypertension Physical Exam Vital Signs Vital Signs - First Documented 02/05/23 11:08 Temp 36.5 Pulse 51 Resp 13 B/P (MAP) 157/78 (104) Pulse Ox 94 O2 Delivery Room Air Capillary Refill : Height, Weight, BMI Height: 5'2.00" Weight: 170lbs. 2.0oz. [id number]; 29.86 BMI Method:Stated General Appearance: No Apparent Distress, WD/WN HEENT: PERRL/EOMI, TMs Normal, Normal ENT Inspection, Pharynx Normal Neck: Full Range of Motion, Normal Inspection, Non Tender, Supple Respiratory: Chest Non Tender, Lungs Clear, Normal Breath Sounds, No Accessory Muscle Use, No Respiratory Distress Cardiovascular: No Edema, No Gallop, No JVD, No Murmur Gastrointestinal: Normal Bowel Sounds Neurologic/Psychiatric: Alert, Oriented x3, No Motor/Sensory Deficits, Normal Mood/Affect, superintendent logging II-XII Norm as Tested Skin: Normal Color, Warm/Dry Procedures/Interventions Suture Size: 5-0 Progress/Results/Core Measures Results/Orders Lab Results Laboratory Tests Test 02/05/23 11:10 02/05/23 11:35 02/05/23 11:38 02/05/23 12:34 Range/Units White Blood Count 7.5 4.3-11.0 10^3/uL Red Blood Count 4.33 3.80-5.11 10^6/uL Hemoglobin 12.2 11.5-16.0 g/dL Hematocrit 39 35-52 % Mean Corpuscular Volume 89 80-99 fL Mean Corpuscular Hemoglobin 28 25-34 pg Mean Corpuscular Hemoglobin Concent 32 32-36 g/dL Red Cell Distribution Width 13.8 10.0-14.5 % Platelet Count 229 130-400 10^3/uL Mean Platelet Volume 9.5 9.0-12.2 fL Immature Granulocyte % (Auto) 1 % Neutrophils (%) (Auto) 64 42-75 % Lymphocytes (%) (Auto) 26 12-44 % Monocytes (%) (Auto) 6 0-12 % Eosinophils (%) (Auto) 2 0-10 % Basophils (%) (Auto) 1 0-10 % Neutrophils # (Auto) 4.9 1.8-7.8 10^3/uL Lymphocytes # (Auto) 2.0 1.0-4.0 10^3/uL Monocytes # (Auto) 0.5 0.0-1.0 10^3/uL Eosinophils # (Auto) 0.2 0.0-0.3 10^3/uL Basophils # (Auto) 0.0 0.0-0.1 10^3/uL Immature Granulocyte # (Auto) 0.1 0.0-0.1 10^3/uL Sodium Level 141 135-145 MMOL/L Potassium Level 3.8 3.6-5.0 MMOL/L Chloride Level 108 H 98-107 MMOL/L Carbon Dioxide Level 24 21-32 MMOL/L Anion Gap 9 5-14 MMOL/L Blood Urea Nitrogen 22 H 7-18 MG/DL Creatinine 1.04 0.60-1.30 MG/DL Estimat Glomerular Filtration Rate 53 BUN/Creatinine Ratio 21 Glucose Level 172 H 70-105 MG/DL Calcium Level 9.0 8.5-10.1 MG/DL Corrected Calcium 9.3 8.5-10.1 MG/DL Magnesium Level 2.0 1.6-2.4 MG/DL Total Bilirubin 0.5 0.1-1.0 MG/DL Aspartate Amino Transf (AST/SGOT) 15 5-34 U/L Alanine Aminotransferase (ALT/SGPT) 12 0-55 U/L Alkaline Phosphatase 71 40-136 U/L Myoglobin 69.7 10.0-92.0 NG/ML Troponin I < 0.028 <0.028 NG/ML B-Type Natriuretic Peptide 100.3 H <100.0 PG/ML Total Protein 6.8 6.4-8.2 GM/DL Albumin 3.6 3.2-4.5 GM/DL Lipase 23 8-78 U/L Glucometer 155 H 70-110 MG/DL Prothrombin Time 13.4 12.2-14.7 SEC INR Comment 1.0 0.8-1.4 Activated Partial Thromboplast Time 29 24-35 SEC Urine Color YELLOW Urine Clarity CLEAR Urine pH 5.5 5-9 Urine Specific Barton >=1.030 1.016-1.022 Urine Protein NEGATIVE NEGATIVE Urine Glucose (UA) NEGATIVE NEGATIVE Urine Ketones NEGATIVE NEGATIVE Urine Nitrite NEGATIVE NEGATIVE Urine Bilirubin NEGATIVE NEGATIVE Urine Urobilinogen 0.2 < = 1.0 MG/DL Urine Leukocyte Esterase NEGATIVE NEGATIVE Urine RBC (Auto) NEGATIVE NEGATIVE Urine RBC NONE /HPF Urine WBC RARE /HPF Urine Squamous Epithelial Cells 2-5 /HPF Urine Crystals NONE /LPF Urine Bacteria FEW H /HPF Urine Casts NONE /LPF Urine Mucus SMALL H /LPF Urine Culture Indicated YES My Orders Orders - CLAUDIA RADER PA Ekg Tracing (02/05/23 11:08) Cbc With Automated Diff (02/05/23 11:10) Magnesium (02/05/23 11:10) Chest 1 View, Ap/Pa Only (02/05/23 11:10) Comprehensive Metabolic Panel (02/05/23 11:10) Myoglobin Serum (02/05/23 11:10) Protime With Inr (02/05/23 11:10) Partial Thromboplastin Time (02/05/23 11:10) Monitor-Rhythm Ecg Trace Only (02/05/23 11:10) Ed Iv/Invasive Line Start (02/05/23 11:10) Lipase (02/05/23 11:10) Bnp Owen (02/05/23 11:10) Troponin I Andrade (02/05/23 11:10) Ua Culture If Indicated (02/05/23 11:39) Urine Culture (02/05/23 12:34) Ns Iv 500 Ml (Sodium Chloride 0.9%) (02/05/23 13:13) Vital Signs/I&O 02/05/23 02/05/23 11:08 16:08 Temp 36.5 36.5 Pulse 51 52 Resp 13 15 B/P (MAP) 157/78 (104) 157/81 Pulse Ox 94 95 O2 Delivery Room Air Room Air Comment Sinus bradycardia with marked sinus arrhythmia, left axis deviation, 51 bpm, QRS duration 86 MS, QTc 410 MS. Departure Communication (PCP) Patient is a 87-year-old female who lives at home presents ED by EMS for chest pain. Reviewed previous ER visits, H&P, lab testing. Differential diagnosis, bradycardia, ACS, dehydration, pneumonia, UTI. Patient was admitted in December for symptomatic bradycardia. She had a holter monitor placed. She had no evidence of significant bradycardia arrhythmia. lowest heart rate 37. No evidence of V. tach. Patient heart rate has remained in the 50s during most of her stay. Frequent PVCs. History of coronary artery disease, peripheral vascular disease requiring balloon angioplasty in 2021. Lower extremities warm to touch with cap refill less than 2. Dorsalis pedis bilateral +2. Denies of any specific lower leg swelling. History of CVA. Right-sided deficits. According to family she appears to be at her normal baseline. She received 4 baby aspirin's with improvement of chest pain by EMS. She cannot recall how long this chest pain has been occurring but reports for "awhile". When she was admitted in December evaluated by Dr. Dexter cuff knitter, he Recommend if continue symptoms she may require a pacemaker. Cardiac work-up was initiated. She is currently asymptomatic. Did add a urinalysis. Patient did not eat or drink as much today with some mild weakness this morning according to family at bedside. Vital signs stable but with chronic bradycardia. CBC grossly unremarkable. Chemistry noted BUN of 22 with normal creatinine. Normal troponin. BNP 100. Chest x-ray was negative for pneumonia, pneumothorax, pleural effusion. Urinalysis was negative for infection. Did receive 500 ml of normal saline. Patient heart rate fluctuated between 40 and 60s. Patient with was discussed with Dr. Lemon cuff knitter. Recommended outpatient follow-up regarding the bradycardia. Do not necessarily believe patient needs inpatient at this time. Home health does see patient 2-3 times per week. Patient would likely benefit with long term for more one-to-one care as she is starting to become more difficult to take care of at home. Patient does not want long term at this time. She would rather go home. This was discussed with family. Recommend cardiology outpatient follow-up. Continue hydration and eating at home. Follow-up with your primary care physician for further evaluation. No further cardiac work-up at this time. Reassuring lab work Impression Primary Impression: Chest pain Additional Impression: Bradycardia Disposition: 01 HOME, SELF-CARE Condition: Stable Departure-Patient Inst. Decision time for Depature: 13:14 Referrals: FAHAD WALKER MD (PCP/Family) Primary Care Physician Patient Instructions: Chest Pain Add. Discharge Instructions: Recommend following up with cardiology. Would recommend discussing long term with your pcp if continue having difficulty taking care of patient at home. All discharge instructions reviewed with patient and/or family. Voiced understanding. CLAUDIA RADER Feb 05, 2023 11:13
[2023-02-05 11:17] LABS: BASOPHILS % (AUTO) 1 % (0-10); EOSINOPHILS # (AUTO) 0.2 10^3/uL (0.0-0.3); EOSINOPHILS % (AUTO) 2 % (0-10); HEMATOCRIT 39 % (35-52); HEMOGLOBIN 12.2 g/dL (11.5-16.0); LYMPHOCYTES % (AUTO) 26 % (12-44); MEAN CORPUSCULAR HEMOGLOBIN 28 pg (25-34); MEAN CORPUSCULAR HGB CONC 32 g/dL (32-36); MEAN CORPUSCULAR VOLUME 89 fL (80-99); MEAN PLATELET VOLUME 9.5 fL (9.0-12.2); MONOCYTES # (AUTO) 0.5 10^3/uL (0.0-1.0); MONOCYTES % (AUTO) 6 % (0-12); NEUTROPHILS # (AUTO) 4.9 10^3/uL (1.8-7.8); NEUTROPHILS % (AUTO) 64 % (42-75); PLATELET COUNT 229 10^3/uL (130-400); WHITE BLOOD COUNT 7.5 10^3/uL (4.3-11.0)
[2023-02-05 11:27] LABS: ALBUMIN 3.6 GM/DL (3.2-4.5); CHLORIDE 108 MMOL/L (98-107); POTASSIUM 3.8 MMOL/L (3.6-5.0); SODIUM 141 MMOL/L (135-145)
[2023-02-05 11:29] LABS: GLUCOSE 172 MG/DL (70-105); TOTAL PROTEIN 6.8 GM/DL (6.4-8.2)
[2023-02-05 11:30] LABS: CARBON DIOXIDE 24 MMOL/L (21-32)
[2023-02-05 11:31] LABS: BILIRUBIN,TOTAL 0.5 MG/DL (0.1-1.0)
[2023-02-05 11:32] LABS: ALKALINE PHOSPHATASE 71 U/L (40-136)
[2023-02-05 11:33] LABS: CREATININE SERUM 1.04 MG/DL (0.60-1.30); GFR ESTIMATED 53
[2023-02-05 11:34] LABS: BUN/CREATININE RATIO 21
[2023-02-05 11:35] LABS: ALANINE AMINOTRANSFERASE 12 U/L (0-55)
[2023-02-05 11:37] LABS: LIPASE 23 U/L (8-78)
--- NOTE | 2023-02-05 11:47 | Diagnostic Imaging Report ---
EXAMINATION: Chest 1 view HISTORY: Chest pain COMPARISON: 06/04/2022 FINDINGS: The lungs are clear without edema or pneumonia. No pleural effusion or pneumothorax. Heart size is normal. 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 IMPRESSION: 1. Clear lungs. Dictated by: Dictated on workstation # [id number]
[2023-02-05 11:56] LABS: PROTHROMBIN TIME PATIENT 13.4 SEC (12.2-14.7)
[2023-02-05 12:40] LABS: BILIRUBIN,URINE NEGATIVE (NEGATIVE); CLARITY,URINE CLEAR; COLOR,URINE YELLOW; GLUCOSE, URINE (UA) NEGATIVE (NEGATIVE); KETONES,URINE NEGATIVE (NEGATIVE); LEUKOCYTE ESTERASE ,URINE NEGATIVE (NEGATIVE); NITRITE,URINE NEGATIVE (NEGATIVE); PH,URINE 5.5 (5-9); PROTEIN,URINE NEGATIVE (NEGATIVE)
[2023-02-05 13:04] LABS: BACTERIA,URINE FEW /HPF; WBC,URINE RARE /HPF
[2023-02-05] MEDS ORDERED: NS IV 500 ML 500 ML IV STA (13:13)
[2023-02-05 16:08] VITALS: BP 157/81
== END 2023-02-05 16:08 | disposition home or self-care (01) ==
LOC: EDUNIT# 11:01 → ER 11:02
DX: R07.2 Precordial pain (principal); R00.1 Bradycardia, unspecified; E11.9 Type 2 diabetes mellitus without complications; Z79.01 Long term (current) use of anticoagulants; Z95.5 Presence of coronary angioplasty implant and graft; Z79.4 Long term (current) use of insulin; Z86.74 Personal history of sudden cardiac arrest
CPT/HCPCS: 36415; 71045; 80053; 81000; 82947; 83690; 83735; 83874; 83880; 84484; 85025; 85610; 85730; 87088; 93005; 93041

== ENCOUNTER 2023-03-18 22:10 | Inpatient (IN) | payer MEDICARE, OTHER ==
[~2023-03-18] VITALS: Ht 157.4 cm; Wt 76.7 kg
[~2023-03-18 22:10] MED LIST changes: +MIRT-118 PO; -MIRT15TA3 PO
[2023-03-18] MEDS ORDERED: LIDOCAINE UROJET 2% GEL 10 ML PKG TOP ONE ×2 (22:15)
[2023-03-18 22:25] LABS: BASOPHILS % (AUTO) 1 % (0-10); EOSINOPHILS # (AUTO) 0.1 10^3/uL (0.0-0.3); EOSINOPHILS % (AUTO) 2 % (0-10); HEMATOCRIT 39 % (35-52); HEMOGLOBIN 12.3 g/dL (11.5-16.0); LYMPHOCYTES # (AUTO) 1.9 10^3/uL (1.0-4.0); LYMPHOCYTES % (AUTO) 24 % (12-44); MEAN CORPUSCULAR HEMOGLOBIN 29 pg (25-34); MEAN CORPUSCULAR HGB CONC 32 g/dL (32-36); MEAN CORPUSCULAR VOLUME 90 fL (80-99); MEAN PLATELET VOLUME 9.9 fL (9.0-12.2); MONOCYTES # (AUTO) 0.4 10^3/uL (0.0-1.0); MONOCYTES % (AUTO) 5 % (0-12); NEUTROPHILS # (AUTO) 5.3 10^3/uL (1.8-7.8); NEUTROPHILS % (AUTO) 68 % (42-75); PLATELET COUNT 243 10^3/uL (130-400); WHITE BLOOD COUNT 7.8 10^3/uL (4.3-11.0)
[2023-03-18 22:33] LABS: ALBUMIN 3.7 GM/DL (3.2-4.5); POTASSIUM 3.5 MMOL/L (3.6-5.0)
[2023-03-18 22:34] LABS: CALCIUM 8.9 MG/DL (8.5-10.1)
[2023-03-18 22:35] LABS: TOTAL PROTEIN 6.8 GM/DL (6.4-8.2)
[2023-03-18 22:37] LABS: BILIRUBIN,TOTAL 0.4 MG/DL (0.1-1.0)
[2023-03-18 22:38] LABS: PROTHROMBIN TIME PATIENT 13.6 SEC (12.2-14.7)
[2023-03-18 22:39] LABS: CREATININE SERUM 1.14 MG/DL (0.60-1.30)
[2023-03-18 22:42] LABS: MAGNESIUM 1.9 MG/DL (1.6-2.4)
[2023-03-18 22:49] LABS: CREATINE KINASE MB 2.1 NG/ML (<6.6)
[2023-03-18 22:51] LABS: ERYTHROCYTE SEDIMENTATION RATE 28 MM/HR (0-30)
[2023-03-18 23:02] LABS: TSH (THYROID ANALYZER) 3.16 UIU/ML (0.35-4.94)
[2023-03-18 23:03] LABS: BACTERIA,URINE TRACE /HPF; BILIRUBIN,URINE 1+ (NEGATIVE); CLARITY,URINE CLEAR; COLOR,URINE YELLOW; GLUCOSE, URINE (UA) NEGATIVE (NEGATIVE); KETONES,URINE NEGATIVE (NEGATIVE); LEUKOCYTE ESTERASE ,URINE NEGATIVE (NEGATIVE); NITRITE,URINE NEGATIVE (NEGATIVE); PH,URINE 5.5 (5-9); PROTEIN,URINE 1+ (NEGATIVE); RBC,URINE 0-2 /HPF; WBC,URINE 0-2 /HPF
[2023-03-18 23:04] LABS: AMORPHOUS SEDIMENT,UR MOD AMOR URATES /LPF; HYALINE CASTS, URINE 0-2 /LPF
[2023-03-18] MEDS ORDERED: NS IV 1000 ML 1,000 ML IV SCH (23:30)
[2023-03-19] VITALS (13 sets, daily range): BP systolic 135–176; BP diastolic 63–87
--- NOTE | 2023-03-19 01:35 | ED General ---
General Chief Complaint: Neuro-Stroke Like Symptoms Stated Complaint: SLURRED SPEECH/WEAKNESS Nursing Triage Note: PT ARRIVED BY [facility] WITH CC OF WEAKNESS, SOB, DIZZY, AND SLURRED SPEECH. PTS LAST WELL KNOWN TIME 8AM. Source of Information: Patient (VERY POOR HISTORIAN--PT WITH DEMENTIA) History of Present Illness Date Seen by Provider: Mar 18, 2023 Time Seen by Provider: 22:10 Initial Comments PT ARRIVES VIA EMS FROM HOME, LIVES ALONG PT STATES SHE HAS BEEN DIZZY AND WEAK ALL DAY LAST KNOWN WELL TIME WAS AT 0800 WHEN HOME HEALTH NURSE WAS AT PT'S HOME FAMILY NOTICED TONIGHT THAT PT HAD SLURRED SPEECH. 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 ALEJANDRA Allergies and Home Medications Allergies Coded Allergies: No Known Drug Allergies (Unverified , 06/05/20) Patient Home Medication List Home Medication List Reviewed: Yes Alendronate Sodium (Alendronate Sodium) 70 Mg Tablet, 70 MG PO , (Reported) Entered as Reported by: RENETTA ROSAS on 12/28/221829 Amlodipine Besylate (Amlodipine Besylate) 10 Mg Tablet, 10 MG PO DAILY, (Repo rted) Entered as Reported by: RENETTA ROSAS on 12/28/221829 Aspirin (Aspirin) 81 Mg Tab.chew, 81 MG PO DAILY, (Reported) Entered as Reported by: LAURE SOW on 06/05/20 0753 Atorvastatin Calcium (Atorvastatin Calcium) 20 Mg Tablet, 20 MG PO DAILY, (Reported) Entered as Reported by: RENETTA ROSAS on 12/28/221829 Buspirone HCl (Buspirone HCl) 10 Mg Tablet, 10 MG PO BID, (Reported) Entered as Reported by: RENETTA ROSAS on 12/28/221829 Clopidogrel Bisulfate (Clopidogrel) 75 Mg Tablet, 75 MG PO DAILY, (Reported) Entered as Reported by: SUSAN KELLER on 12/29/22 1425 Donepezil HCl (Donepezil HCl) 5 Mg Tablet, 5 MG PO HS, (Reported) Entered as Reported by: RENETTA ROSAS on 12/28/221829 Exenatide Microspheres (Bydureon Bcise) 2 Mg/0.85 Ml Auto.injct, 2 MG INJ THURS, (Reported) Entered as Reported by: RENETTA ROSAS on 12/28/221829 Glipizide (Glipizide) 5 Mg Tablet, 5 MG PO DAILY, (Reported) Entered as Reported by: RENETTA ROSAS on 12/28/221829 Insulin Detemir (Levemir Flexpen) 100 Unit/Ml (3 Ml) Insuln.pen, 15 UNIT SQ BID Prescribed by: ERUM SANTANA on 12/31/22 104 Levetiracetam (Levetiracetam) 500 Mg Tablet, 500 MG PO BID, (Reported) Entered as Reported by: LAURE SOW on 06/05/20 0753 Levothyroxine Sodium (Levothyroxine Sodium) 75 Mcg Tablet, 75 MCG PO DAILY, (Reported) Entered as Reported by: RENETTA ROSAS on 12/28/221829 Losartan Potassium (Losartan Potassium) 50 Mg Tablet, 50 MG PO DAILY Prescribed by: ERUM SANTANA on 12/31/22 1046 Pen Needle, Diabetic (Advocate Pen Needle) 33 Gauge X 5/32" Dis.needle, EACH MC BID, (DME) Prescribed by: ERUM SANTANA on 12/31/22 1046 Quetiapine Fumarate (Quetiapine Fumarate) 50 Mg Tablet, 75 MG PO HS, (Reported) Entered as Reported by: RENETTA ROSAS on 12/28/221829 Sertraline HCl (Sertraline HCl) 100 Mg Tablet, 150 MG PO DAILY, (Reported) Entered as Reported by: RENETTA RODAS on 10/18/15 1734 Review of Systems Review of Systems Constitutional: see HPI, dizziness, malaise, weakness EENTM: no symptoms reported Respiratory: no symptoms reported Cardiovascular: no symptoms reported Gastrointestinal: no symptoms reported Genitourinary: no symptoms reported Musculoskeletal: no symptoms reported Skin: no symptoms reported Psychiatric/Neurological: See HPI Hematologic/Lymphatic: No Symptoms Reported Immunological/Allergic: no symptoms reported Past Esvfojt-Dupter-Rtebon Hx Immunizations Up To Date Tetanus Booster (TDap): Unknown PED Vaccines UTD: Yes First/Initial COVID19 Vaccinat: 2020 Second COVID19 Vaccination Rafael: 2020 Third COVID19 Vaccination Date: 2020 Seasonal Allergies Seasonal Allergies: No Past Medical History Surgery/Hospitalization HX: DM 2, HTN, CHF, SEIZURES surg. 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, Menopausal Sexually Transmitted Disease: No HIV/AIDS: No Genitourinary: Yes Kidney Infection Gastrointestinal: No Musculoskeletal: Yes Arthritis Endocrine: Yes Diabetes, Insulin dep, Hypothyroidsim HEENT: Yes Cataract Loss of Vision: Denies Hearing Impairment: Hard of Hearing Cancer: Yes Skin, Cervical Psychosocial: Yes Anxiety, Depression Integumentary: No Pruritis Blood Disorders: No Adverse Reaction/Blood Tranf: No Family Medical History Family history: Alzheimer's disease 03 MOTHER Family history: Hypertension 03 FATHER 03 MOTHER Myocardial infarction 03 FATHER 03 MOTHER Heart Disease, Hypertension Physical Exam Vital Signs Vital Signs - First Documented 03/18/23 03/19/23 22:13 02:30 Temp 36.2 Pulse 57 Resp 16 B/P (MAP) 112/73 (86) Pulse Ox 94 O2 Delivery Room Air Capillary Refill : Height, Weight, BMI Height: 5'2.00" Weight: 170lbs. 2.0oz. [id number]; 31.00 BMI Method:Stated General Appearance: No Apparent Distress, WD/WN, Other (GENERALIZED WEAKNESS AND SOMEWHAT LETHARGIC. SHE IS ABLE TO ANSWER BASIC QUESTIONS AND SPEECH IS VERY SLURRED) HEENT: PERRL/EOMI, Other (ORAL MUCOSA SLIGHTLY DRY) Neck: Normal Inspection Respiratory: Normal Breath Sounds, No Accessory Muscle Use, No Respiratory Distress Cardiovascular: Bradycardia (50'S), Systolic Murmur (2/6), Extra Beats (C/W PVC'S ON MONITOR) Gastrointestinal: Non Tender, Soft Back: No CVA Tenderness Extremity: Normal Capillary Refill, Normal Inspection, Non Tender, No Calf Tenderness, No Pedal Edema Neurologic/Psychiatric: Alert, Oriented x3 (BUT LIMITED MEMORY), Other (SPEECH IS VERY SLURRED. NO FACIAL DROOP. NO PROBLEMS HANDLING SECRETIONS. NO FOCAL DEFICITS--GROSS MOTOR/SENSORY IS INTACT AND EQUAL BILATERALLY) Skin: Normal Color, Warm/Dry Focused Exam Lactate Level 03/18/23 22:14: Lactic Acid Level 1.49 Lactic Acid Level Laboratory Tests Test 03/18/23 22:14 Lactic Acid Level 1.49 MMOL/L (0.50-2.00) Procedures/Interventions Suture Size: 5-0 Progress/Results/Core Measures Suspected Sepsis SIRS Temperature: Pulse: 57 Respiratory Rate: Laboratory Tests 03/18/23 22:14: White Blood Count 7.8 Blood Pressure 112 /73 Mean: 86 03/18/23 22:14: Lactic Acid Level 1.49 Laboratory Tests 03/18/23 22:14: Creatinine 1.14, INR Comment 1.0, Platelet Count 243, Total Bilirubin 0.4 Results/Orders Lab Results Laboratory Tests Test 03/18/23 22:14 03/18/23 22:22 03/18/23 22:23 03/18/23 22:34 Range/Units White Blood Count 7.8 4.3-11.0 10^3/uL Red Blood Count 4.31 3.80-5.11 10^6/uL Hemoglobin 12.3 11.5-16.0 g/dL Hematocrit 39 35-52 % Mean Corpuscular Volume 90 80-99 fL Mean Corpuscular Hemoglobin 29 25-34 pg Mean Corpuscular Hemoglobin Concent 32 32-36 g/dL Red Cell Distribution Width 14.0 10.0-14.5 % Platelet Count 243 130-400 10^3/uL Mean Platelet Volume 9.9 9.0-12.2 fL Immature Granulocyte % (Auto) 1 % Neutrophils (%) (Auto) 68 42-75 % Lymphocytes (%) (Auto) 24 12-44 % Monocytes (%) (Auto) 5 0-12 % Eosinophils (%) (Auto) 2 0-10 % Basophils (%) (Auto) 1 0-10 % Neutrophils # (Auto) 5.3 1.8-7.8 10^3/uL Lymphocytes # (Auto) 1.9 1.0-4.0 10^3/uL Monocytes # (Auto) 0.4 0.0-1.0 10^3/uL Eosinophils # (Auto) 0.1 0.0-0.3 10^3/uL Basophils # (Auto) 0.0 0.0-0.1 10^3/uL Immature Granulocyte # (Auto) 0.0 0.0-0.1 10^3/uL Erythrocyte Sedimentation Rate 28 0-30 MM/HR Prothrombin Time 13.6 12.2-14.7 SEC INR Comment 1.0 0.8-1.4 Activated Partial Thromboplast Time 29 24-35 SEC D-Dimer 1.00 H 0.00-0.49 UG/ML Sodium Level 140 135-145 MMOL/L Potassium Level 3.5 L 3.6-5.0 MMOL/L Chloride Level 107 98-107 MMOL/L Carbon Dioxide Level 23 21-32 MMOL/L Anion Gap 10 5-14 MMOL/L Blood Urea Nitrogen 20 H 7-18 MG/DL Creatinine 1.14 0.60-1.30 MG/DL Estimat Glomerular Filtration Rate 47 BUN/Creatinine Ratio 18 Glucose Level 291 H 70-105 MG/DL Lactic Acid Level 1.49 0.50-2.00 MMOL/L Calcium Level 8.9 8.5-10.1 MG/DL Corrected Calcium 9.1 8.5-10.1 MG/DL Magnesium Level 1.9 1.6-2.4 MG/DL Total Bilirubin 0.4 0.1-1.0 MG/DL Aspartate Amino Transf (AST/SGOT) 16 5-34 U/L Alanine Aminotransferase (ALT/SGPT) 11 0-55 U/L Alkaline Phosphatase 71 40-136 U/L Total Creatine Kinase 615 H 29-168 U/L Creatine Kinase MB 2.1 <6.6 NG/ML Myoglobin 72.2 10.0-92.0 NG/ML Troponin I 0.033 H <0.028 NG/ML C-Reactive Protein High Sensitivity 0.28 0.00-0.50 MG/DL B-Type Natriuretic Peptide 192.2 H <100.0 PG/ML Total Protein 6.8 6.4-8.2 GM/DL Albumin 3.7 3.2-4.5 GM/DL TSH [place] Testing 3.16 0.35-4.94 UIU/ML Influenza Type A (RT-PCR) Not Detected Not Detecte Influenza Type B (RT-PCR) Not Detected Not Detecte SARS-CoV-2 RNA (RT-PCR) Not Detected Not Detecte Glucometer 263 H 70-110 MG/DL Urine Color YELLOW Urine Clarity CLEAR Urine pH 5.5 5-9 Urine Specific Clifford >=1.030 1.016-1.022 Urine Protein 1+ H NEGATIVE Urine Glucose (UA) NEGATIVE NEGATIVE Urine Ketones NEGATIVE NEGATIVE Urine Nitrite NEGATIVE NEGATIVE Urine Bilirubin 1+ H NEGATIVE Urine Urobilinogen 0.2 < = 1.0 MG/DL Urine Leukocyte Esterase NEGATIVE NEGATIVE Urine RBC (Auto) NEGATIVE NEGATIVE Urine RBC 0-2 /HPF Urine WBC 0-2 /HPF Urine Squamous Epithelial Cells 10-25 H /HPF Urine Crystals PRESENT H /LPF Urine Amorphous Sediment MOD XIOMARA URATES H /LPF Urine Bacteria TRACE /HPF Urine Casts PRESENT /LPF Urine Hyaline Casts 0-2 H /LPF Urine Mucus LARGE H /LPF Urine Culture Indicated NO Test 03/19/23 01:23 Range/Units Troponin I < 0.028 <0.028 NG/ML My Orders Orders - CLIVE GARDNER DO Accucheck Stat ONCE (03/18/23 22:12) Ed Iv/Invasive Line Start (03/18/23 22:12) Ekg Tracing (03/18/23 22:12) Catheter(Urinary) Insert & Ass 03,15 (03/18/23 22:12) O2 (03/18/23 22:12) Monitor-Rhythm Ecg Trace Only (03/18/23 22:12) Covid 19 Inhouse Test (03/18/23 22:12) Cbc With Automated Diff (03/18/23 22:12) Protime With Inr (03/18/23 22:12) Partial Thromboplastin Time (03/18/23 22:12) Comprehensive Metabolic Panel (03/18/23 22:12) Fibrin Degradation Products (03/18/23 22:12) Troponin I [place] (03/18/23 22:12) Ua Culture If Indicated (03/18/23 22:12) Chest 1 View, Ap/Pa Only (03/18/23 22:12) Catheter(Urinary) Insert & Ass 03,15 (03/18/23 22:12) Ekg Tracing (03/18/23 22:12) Nothing By Mouth (03/19/23 Breakfast) Accucheck Stat ONCE (03/18/23 22:12) Ed Iv/Invasive Line Start (03/18/23 22:12) Ed Iv/Invasive Line Start (03/18/23 22:12) Vital Signs Stroke Patient Q15M (03/18/23 22:12) Ct Head Wo-R/O Stroke (03/18/23 22:12) O2 (03/18/23 22:12) Dysphagia Screening Tool Q10MX1 (03/18/23 22:12) Lipid Panel (03/19/23 06:00) Lidocaine 2% (Urojet) (Lidocaine 2% (Uro (03/18/23 22:15) Influenza A And B By Pcr (03/18/23 22:12) Lidocaine 2% (Urojet) (Lidocaine 2% (Uro (03/18/23 22:15) Bnp Andrade (03/18/23 22:12) Creatine Kinase (03/18/23 22:12) Creatine Kinase Mb (03/18/23 22:12) Hs C Reactive Protein (03/18/23 22:12) Lactic Acid Analyzer (03/18/23 22:12) Magnesium (03/18/23 22:12) Thyroid Analyzer (03/18/23 22:12) Erythrocyte Sedimentation Rate (03/18/23 22:12) Myoglobin Serum (03/18/23 22:12) Ed Iv/Invasive Line Start (03/18/23 23:16) Ns Iv 1000 Ml (Ns Iv 1000 Ml) (03/18/23 23:30) Ct Angio Head/Neck (03/19/23 00:01) Troponin I [place] (03/19/23 01:18) Iohexol Injection (Omnipaque 350 Mg/Ml 1 (03/19/23 01:45) Received Contrast (Hold Metformin- Contr (03/19/23 01:45) Ns (Ivpb) 100 Ml (Sodium Chloride 0.9% 1 (03/19/23 01:45) Medications Given in ED Vital Signs/I&O 03/18/23 03/19/23 03/19/23/7/23 22:13 02:01 02:30 02:35 Temp 36.2 36.1 Pulse 57 63 62 Resp 16 B/P (MAP) 112/73 (86) 136/92 150/87 (108) Pulse Ox 94 92 92 O2 Delivery Room Air Room Air Room Air 03/19/23 03:00 Pulse 60 Capillary Refill : Blood Pressure Mean: 86 Point of Care Testing Finger Stick Blood Glucose: 263 Blood Glucose Action Taken: PROVIDER NOTIFIED Progress Note : Progress Note VITALS ON ARRIVAL: TEMP 36.2=97.2, HR 57, RR 16, BP 112/73, O2 SAT 94% ON ROOM AIR ACCUCHECK 263 GIVEN: -IV FLUIDS LABS: -CBC NORMAL WITH WBC 7.8 -CMP WITH NA 140, CR 3.5, BUN 20, CR 1.14, GLU 291 -MG 1.9 -CK 615, CK-MB 2.1, MYOGLOBIN 72.2 -LACTIC ACID 1.49 -TROPONIN 0.033, REPEAT < 0.028 -TSH 3.16 -PT 13.6 / PTT 29 / INR 1.0 -D-DIMER 1.00 -UA NO EVIDENCE OF INFECTION -COVID/FLU NEGATIVE CT HEAD -NO ACUTE PROCESS CTA HEAD/NECK--NO THROMBUS, PROBABLE MODERATE LEFT M1 STENOSIS, NO HIGH GRADE STENOSIS EKG UNREMARKABLE CXR -POOR INSPIRATION, PENDING RADIOLOGIST REVIEW NO DETERIORATION IN PT'S CONDITION DURING ER STAY DISCUSSED TEST RESULTS, NEED FOR ADMIT AND PT AND FAMILY AGREE WITH PLAN. REVIEWED PRIOR RECORDS, INCLUDING ER VISITS, ADMITS/H&P'S/CONSULTS/DISCHARGE SUMMARIES, TESTS/PROCEDURES ECG Initial ECG Impression Date: Mar 19, 2023 Initial ECG Impression Time: 22:54 Initial ECG Rate: 54 Initial ECG Rhythm: S.Rod (PVC'S) Initial ECG Intervals UT 177 QRS 108 QT/QTC 429/415 Initial ECG Impression: Nonspecific Changes Initial ECG Comparisson: Unchanged Comment INTERPRETED BY ME Diagnostic Imaging Comments CXR--POOR INSPIRATION, PENDING RADIOLOGIST REVIEW CT HEAD--PER [facility] VIA PHONE AT [phone] AND VIA FAX AT [phone] -NO MASS, MASS EFFECT OR INTRACRANIAL HEMORRHAGE CT ANGIOGRAM HEAD/NECK--PER [facility] VIA FAX AT [phone] -LIMITED BY PT MOTION -PROBABLE MODERATE LEFT M1 STENOSIS -50% STENOSIS RIGHT CAROTID BULB -LESS THAN 50% STENOSIS TO RIGH ICA -NO VERTEBRAL ARTERY STENOSIS Reviewed: Reviewed by Me Departure Communication (Admissions) 0154--SPOKE WITH DR. SANTANA, HOSPITALIST FOR [facility] [place]. ACCEPTS PT FOR ADMIT. Impression Primary Impression: Stroke-like symptoms Additional Impressions: Dementia Slurred speech Generalized weakness HX OF PRIOR CVA IDDM (insulin dependent diabetes mellitus) Disposition: ADMITTED INPATIENT Condition: Stable Admissions Decision to Admit Reason: Admit from ER (General) Decision to Admit/Date: Mar 19, 2023 Time/Decision to Admit Time: 01:55 Departure-Patient Inst. Referrals: FAHAD GAMBLE MD (PCP/Family) Primary Care Physician CLIVE GARDNER DO Mar 19, 2023 01:34
[2023-03-19] MEDS ORDERED: IOHEXOL 350 MG/ML 100 ML (OMNIPAQUE 350) VIAL IV ONE (01:45)
[2023-03-19] MEDS ORDERED: HOLD METFORMIN - RECEIVED CONTRAST 20 ML VIAL IV SCH (01:45)
[2023-03-19] MEDS ORDERED: NS 100 ML (IVPB) BAG IV ONE (01:45)
[2023-03-19] MEDS ORDERED: ONDANSETRON INJECTION 4 MG/2 ML (SDV) IV PRN (05:15)
[2023-03-19] MEDS ORDERED: ACETAMINOPHEN 500 MG TABLET PO PRN (05:15)
[2023-03-19 05:47] LABS: BASOPHILS % (AUTO) 1 % (0-10); EOSINOPHILS # (AUTO) 0.2 10^3/uL (0.0-0.3); EOSINOPHILS % (AUTO) 2 % (0-10); HEMATOCRIT 39 % (35-52); HEMOGLOBIN 12.2 g/dL (11.5-16.0); LYMPHOCYTES # (AUTO) 1.7 10^3/uL (1.0-4.0); LYMPHOCYTES % (AUTO) 24 % (12-44); MEAN CORPUSCULAR HEMOGLOBIN 28 pg (25-34); MEAN CORPUSCULAR HGB CONC 31 g/dL (32-36); MEAN CORPUSCULAR VOLUME 90 fL (80-99); MEAN PLATELET VOLUME 9.7 fL (9.0-12.2); MONOCYTES # (AUTO) 0.5 10^3/uL (0.0-1.0); MONOCYTES % (AUTO) 7 % (0-12); NEUTROPHILS # (AUTO) 4.7 10^3/uL (1.8-7.8); NEUTROPHILS % (AUTO) 66 % (42-75); PLATELET COUNT 237 10^3/uL (130-400); WHITE BLOOD COUNT 7.2 10^3/uL (4.3-11.0)
[2023-03-19 06:05] LABS: ALBUMIN 3.4 GM/DL (3.2-4.5); BILIRUBIN,TOTAL 0.4 MG/DL (0.1-1.0); CALCIUM 8.5 MG/DL (8.5-10.1); CREATININE SERUM 0.98 MG/DL (0.60-1.30); POTASSIUM 3.7 MMOL/L (3.6-5.0); TOTAL PROTEIN 6.4 GM/DL (6.4-8.2)
--- NOTE | 2023-03-19 06:17 | Diagnostic Imaging Report ---
EXAMINATION: Chest 1 view HISTORY: Weakness and shortness of breath. COMPARISON: 02/05/2023 FINDINGS: Heart size and pulmonary vasculature are normal. There are mild interstitial opacities within the lower lungs. No pleural effusion or pneumothorax. Degenerative changes of the thoracic spine. Osseous structures are otherwise intact. IMPRESSION: 1. Mild interstitial opacities within the lower lungs which can be seen with atelectasis. Superimposed pneumonia or edema could be seen in the appropriate clinical setting. Dictated by: Dictated on workstation # [id number]
[2023-03-19] MEDS: inSUlin ASPART 1 UNIT/0.01 ML (PER UNIT) SC SCH ×4 (06:34→21:37)
[2023-03-19] MEDS: D5 1/2NS + KCL 20 MEQ/L 1000ML 1,000 ML IV SCH ×3 (06:34→18:34)
--- NOTE | 2023-03-19 09:52 | Physical Therapy Evaluation ---
PT Evaluation-General Medical Diagnosis Admission Date Mar 19, 2023 at 03:59 Medical Diagnosis: stroke like symptoms/DM Onset Date: Mar 19, 2023 Therapy Diagnosis Therapy Diagnosis: debility/weakness Height/Weight Height (Feet): 5 Height (Inches): 2.00 Weight (Pounds): 170 Weight (Ounces): 2.0 Precautions Precautions/Isolations: Fall Prevention, Standard Precautions Referral Physician: Rambo Reason for Referral: Evaluation/Treatment Medical History Pertinent Medical History: Arthritis, CAD, CVA, DM, Heart Failure, HTN Current History EMS secondary to weakness/slurred speech/dizziness Reviewed History: Yes Social History Current Living Status: Alone Prior Prior Level of Function SCALE: Activities may be completed with or without assistive devices. 6-Gsmzymgvly-kcqlnlu completes the activity by him/herself with no assistance from a helper. 5-Set-up or Clean-up Assistance-helper sets up or cleans up; patient completes activity. [place] assists only prior to or following the activity. 4-Supervision or Touching Assistance-helper provides verbal cues and/or touching/steadying and/or contact guard assistance as patient completes activity. Assistance may be provided throughout the activity or intermittently. 3-Partial/Moderate Assistance-helper does LESS THAN HALF the effort. [place] lifts, holds or supports trunk or limbs, but provides less than half the effort. 2-Substantial/Maximal Assistance-helper does MORE THAN HALF the effort. [place] lifts or holds trunk or limbs and provides more than half the effort. 4-Kwnopewfb-nlgfzh does ALL the effort. Patient does none of the effort to complete the activity. Or, the assistance of 2 or more helpers is required for the patient to complete the activity. If activity was not attempted, code reason: 7-Patient Refused. 9-Not Applicable-not attempted and the patient did not perform the activity before the current illness, exacerbation or injury. 10-Not Attempted due to Environmental Limitations-(lack of equipment, weather restraints, etc.). 88-Not Attempted due to Medical Conditions or Safety Concerns. Bed Mobility: 6 Transfers (B,C,W/C): 6 Gait: 6 (short distances/furniture walks but mainly in w/c per family) Stairs: 9 Wheelchair Mobility: 6 Indoor Mobility (Ambulation): Independent Stairs: Not Applicalbe Prior Devices Use: Manual wheelchair PT Evaluation-Current Subjective Patient agrees to PT. Objective Attachments: Whelan Catheter, IV ROM/Strength ROM Lower Extremities bilateral LE WFL Strength Lower Extremities 3/5 grossly bilateral all planes Integumentary/Posture Bladder Incontinence: Whelan Cath Sensory Vision: Functional Hearing: Impaired Transfers Roll Left to Right (QC): 4 Lying to Sitting/Side of Bed(Q: 4 Sit to Stand (QC): 4 Chair/Yqf-xp-Ntfmj Xfer(QC): 4 SBA with all mobility Gait Distance: 5 steps Gait Assistive Device: None Comments/Gait Description SBA with mobility/functional gait sequence Balance Sitting Static: Normal Standing Static: Fair Standing Dynamic: Fair Assessment/Needs Patient will be seen short term by skilled PT to address functional strength and mobility to improve current LOF to safely return to home at maximum LOF. Rehab Potential: Fair PT Application Packager Goals Application Packager Goals PT Application Packager Goals Time Frame: Mar 28, 2023 Roll Left & Right (QC): 6 Sit to Lying (QC): 6 Lying-Sitting on Side/Bed(QC): 6 Sit to Stand (QC): 6 Chair/Rfb-wo-Xctog Xfer(QC): 6 PT Plan Problem List Problem List: Activity Tolerance Treatment/Plan Treatment Plan: Continue Plan of Care Treatment Plan: Bed Mobility, Education, Functional Strength, Safety, Therapeutic Exercise, Transfers Treatment Duration: Mar 28, 2023 Frequency: 5 times per week Estimated Hrs Per Day: .25 hour per day Patient and/or Family Agrees t: Yes Time Time In: 931 Time Out: 942 DATE: Mar 19, 2023 Total Billed Treatment Time: 11 Total Billed Treatment 1 visit [facility] 11 min TREVOR JOY PT Mar 19, 2023 09:52
--- NOTE | 2023-03-19 10:38 | Diagnostic Imaging Report ---
EXAMINATION: CT angiography head and neck with and without contrast. TECHNIQUE: After intravenous administration of contrast, thin section axial CT angiography of the head and neck was performed to screen for LVO, and multiple reformats including MIP reconstructions. Postcontrast CT of the head was also obtained. All CT scans use one or more of the following dose optimizing techniques: automated exposure control, MA and/or KvP adjustment based on a patient size and exam type, or iterative reconstruction. CT angiogram was post-processed using RAPID LVO detection to include quantitative measurements of cerebral blood flow and automated results notification to the stroke and/or neurointerventional team. HISTORY: Weakness and slurred speech COMPARISON: 03/18/2023 FINDINGS: HEAD: Anterior circulation: The visualized portions of the internal carotid arteries are unremarkable without significant plaque or stenosis. The right anterior and middle cerebral arteries show no stenosis or intraluminal filling defects. The left PARMINDER is patent. There may be stenosis or filling defect within the M1 segment of the left MCA. No anterior circulation aneurysms are present. Posterior circulation: The visualized distal vertebral arteries are patent to the vertebrobasilar junction. The basilar artery and both posterior cerebral arteries are widely patent without stenosis. No posterior circulation aneurysms are present. The ventricles and sulci are normal. No abnormal attenuation of brain parenchyma is present. No acute intracranial hemorrhage or abnormal extra-axial fluid collections are present. No abnormal meningeal or parenchymal enhancement. The calvarium is intact. The mastoid air cells are clear. The visualized paranasal sinuses are clear. The orbits are normal. NECK: Arch: Conventional branching of the aortic arch. The visualized subclavian arteries are patent without stenosis. Right: There are calcifications within the carotid bifurcation extending into the internal carotid artery with approximately 50% stenosis. The right vertebral artery is patent to the level of the vertebrobasilar junction. Left: There are calcifications within the left common carotid artery distally extending into the bifurcation and internal carotid artery with approximately 20% stenosis. The left vertebral artery is patent to the level of the vertebrobasilar junction. Other: The visualized thyroid gland is unremarkable. The cervical soft tissues are unremarkable. The visualized upper lungs and mediastinum are normal. The cervical osseous structures are normal. There is stranding in a masslike location in the anterior left chest wall measuring 6.7 x 3.5 cm. Fluid or small pockets of loculated fluid seen within the right axilla. IMPRESSION: 1. Approximately 50% stenosis of the right ICA and 20% stenosis of the left ICA. 2. Possible stenosis or filling defect within the M1 segment of the left MCA. Evaluation is limited secondary to patient motion. 3. Agree with preliminary interpretation. Dictated by: Dictated on workstation # [id number]
--- NOTE | 2023-03-19 10:38 | Diagnostic Imaging Report ---
EXAMINATION: CT head without contrast. TECHNIQUE: Multiple contiguous axial images were obtained through the brain without the use of intravenous contrast. All CT scans use one or more of the following dose optimizing techniques: automated exposure control, MA and/or KvP adjustment based on patient size and exam type or iterative reconstruction. HISTORY: Weakness, shortness of breath, dizziness, slurred speech COMPARISON: 09/10/2016 FINDINGS: Mild diffuse cerebral volume loss with proportional enlargement of the ventricles and sulci. Mild hypodensities throughout the supratentorial white matter of both cerebral hemispheres. No acute intracranial hemorrhage or abnormal extra-axial fluid collections are present. Calcification of the intracranial ICAs. No hyperdense vessel. The calvarium is intact. The mastoid air cells are clear. The visualized paranasal sinuses are clear. The orbits are normal. IMPRESSION: 1. No acute intracranial abnormality. 2. Agree with preliminary interpretation. Dictated by: Dictated on workstation # [id number]
--- NOTE | 2023-03-19 10:38 | Diagnostic Imaging Report ---
Clinical indication: Patient with CVA. Comparison: Ultrasound of the carotid arteries dated 06/20/2020. Exam: Real-time ultrasound carotid Doppler duplex imaging is performed bilaterally with multiple real-time grayscale images obtained in various projections. Additional spectral analysis and color Doppler duple images were also obtained. Peak systolic velocity, ICA/CCA peak systolic ratio, spectral analysis, and vascular morphology are studied. Findings: ARTERY VELOCITY Right Left CCA 0.75 m/s 1.15 m/s ICA 1.15 m/s 0.68 m/s ECA 1.23 m/s 0.80 m/s ICA/CCA 1.5 0.6 VERT.ART Antegrade Antegrade Frequent irregular heart rhythm is noted. There is bilateral carotid artery atherosclerotic disease which has minimally progressed. Impression: 1: There is mild bilateral carotid artery atherosclerotic disease with no grayscale or Doppler evidence of significant vascular stenosis. 2: Frequent irregular heart rhythm is noted. Dictated by: Dictated on workstation # [id number]
--- NOTE | 2023-03-19 13:38 | History & Physical ---
KIANA GONZALEZ 03/19/23 1338: History of Present Illness History of Present Illness Reason for visit/HPI 03/19/2023: aLdy is an 87 year old female that was brought to the ER on 03/18 due to an episode of LOC followed by changes in mental status. When Lady awoke, she was weak, felt dizzy, had SOB, slurred speech, L-sided facial droop, and was unable to make coherent thoughts for an hour. Lady has a history of uncontrolled diabetes, dementia, CAD with stents, and hypothyroidism. Her daughters state that she has had symptoms like this in the past, but could not remember when. They also noted that she has had afebrile seizures in the past 5 years. It is also noted that Lady typically does not take her medications on their proper schedule. She sometimes forgets to take them and other times intentionally denies to take her medications. Daughters also note that she is often dehydrated with her not drinking much water, primarily soda pop. Today, 03/19, Lady is a ble to converse and follow commands. She noted that she is feeling better. She also notes that she had some chest pain yesterday. She does not endorse any weakness, numbness, changes in consciousness, tingling, or headache. Her facial droop is not present. She denies being in any pain. When in the ER, her blood glucose was 263 and the daughters said that was "better than it was" Daughters are highly motivated to figure out the etiology of their mothers condition and find a way to prevent future episodes. They note that she lives alone and has visiting helpers such as the kids or a home health aide 3 times a week. Date of Admission Mar 19, 2023 at 12:00 Date Seen by a Provider: Mar 19, 2023 Time Seen by a Provider: 10:35 I consulted on this patient on 03/19/23 13:29 Attending Physician Trista Walker MD Admitting Physician Admitting Physician: Mari Santana DO Attending Physician: Mari Santana DO Consult Allergies and Home Medications Allergies Coded Allergies: No Known Drug Allergies (Unverified , 06/05/20) Patient Home Medication List Home Medication List Reviewed: Yes Alendronate Sodium (Alendronate Sodium) 70 Mg Tablet, 70 MG PO TH, (Reported) Entered as Reported by: RENETTA ROSAS on 12/28/221829 Amlodipine Besylate (Amlodipine Besylate) 10 Mg Tablet, 10 MG PO DAILY, (Reported) Entered as Reported by: RENETTA ROSAS on 12/28/221829 Aspirin (Aspirin) 81 Mg Tab.chew, 81 MG PO DAILY, (Reported) Entered as Reported by: LAURE SOW on 06/05/20 075 Atorvastatin Calcium (Atorvastatin Calcium) 20 Mg Tablet, 20 MG PO DAILY, (Reported) Entered as Reported by: RENETTA ROSAS on 12/28/221829 Buspirone HCl (Buspirone HCl) 10 Mg Tablet, 10 MG PO BID, (Reported) Entered as Reported by: RENETTA ROSAS on 12/28/221829 Clopidogrel Bisulfate (Clopidogrel) 75 Mg Tablet, 75 MG PO DAILY, (Reported) Entered as Reported by: SUSAN KELLER on 12/29/22 1425 Donepezil HCl (Donepezil HCl) 5 Mg Tablet, 5 MG PO HS, (Reported) Entered as Reported by: RENETTA ROSAS on 12/28/221829 Exenatide Microspheres (Bydureon Bcise) 2 Mg/0.85 Ml Auto.injct, 2 MG INJ THURS, (Reported) Entered as Reported by: RENETTA ROSAS on 12/28/221829 Glipizide (Glipizide) 5 Mg Tablet, 5 MG PO DAILY, (Reported) Entered as Reported by: RENETTA ROSAS on 12/28/221829 Insulin Detemir (Levemir Flexpen) 100 Unit/Ml (3 Ml) Insuln.pen, 15 UNIT SQ BID Prescribed by: MARI SANTANA on 12/31/22 1046 Levetiracetam (Levetiracetam) 500 Mg Tablet, 500 MG PO BID, (Reported) Entered as Reported by: LAURE SOW on 06/05/20 075 Levothyroxine Sodium (Levothyroxine Sodium) 75 Mcg Tablet, 75 MCG PO DAILY, (Reported) Entered as Reported by: RENETTA ROSAS on 12/28/221829 Losartan Potassium (Losartan Potassium) 50 Mg Tablet, 50 MG PO DAILY Prescribed by: MARI SANTANA on 12/31/22 1046 Pen Needle, Diabetic (Advocate Pen Needle) 33 Gauge X 5/32" Dis.needle, EACH MC BID, (DME) Prescribed by: MARI SANTANA on 12/31/22 1046 Quetiapine Fumarate (Quetiapine Fumarate) 50 Mg Tablet, 75 MG PO HS, (Reported) Entered as Reported by: RENETTA ROSAS on 12/28/22 1830 Sertraline HCl (Sertraline HCl) 100 Mg Tablet, 150 MG PO DAILY, (Reported) Entered as Reported by: RENETTA RODAS on 10/18/15 1734 Past Vmqdndw-Horwno-Ldhtwr Hx Patient Social History Number of Children: 2 Number of living children: 2 Living Status: alone, with support care Employed/Student: retired Tobacco Use?: No Use of E-Cig and/or Vaping dev: No Substance use?: No Alcohol Use?: No Pt feels they are or have been: No Immunizations Up To Date Date of Influenza Vaccine: Jun 12, 2020 First/Initial COVID19 Vaccinat: 2020 Second COVID19 Vaccination Rafael: 2020 Tetanus Booster (TDap): Unknown Hepatitis A: No Hepatitis B: No PED Vaccines UTD: Yes Date of Pneumonia Vaccine: Apr 12, 2015 Seasonal Allergies Seasonal Allergies: No Current Status status: No status: No Communicates: Verbally Primary Language: Croatian Preferred Spoken Language: Croatian Is interpretation needed?: No Sensory deficits: Hearing impairment Implanted or Applied Medical D: Stents (CAD) Past Medical History Surgeries: Cardiac, Coronary Stent, Eye Surgery, 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 Currently Using CPAP: No Currently Using BIPAP: No Coronary Artery Disease, High Cholesterol, Hypertension, Irregular Heartbeat (EKG shows irregular rhythm, cardiology referred) Dementia, Stroke [employer] History: 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, Menopausal Sexually Transmitted Disease: No HIV/AIDS: No Kidney Infection Arthritis Diabetes, Insulin dep, Hypothyroidsim Cataract Loss of Vision: Denies Hearing Impairment: Hard of Hearing Skin, Cervical Anxiety, Depression Pruritis, Recent Skin Changes (Inferior to R-breast in skin folds) Blood Disorders: No Adverse Reaction/Blood Tranf: No Past Medical History 1. CAD- with history of PTCA and Stent. 2. HTN 3. DM 4. HLP 5. Obesity 6. PHTN 45mmHg with no history of CHF normal ejection fraction at 60% per echo 8-13 7. Cervical Ca sp hysterectomy 8. Frequent Falls- with history of fall with subdural hematoma 9. Melanoma SP removal Rt. Leg 10. Non compliance with follow up and medications 11. 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 2. Cardiac Cath 2009 with PTCA and stent 2.5 x 5mm Promus to MANJEET Burgos, currently seeing Ian 3. Resection of melanoma Rt. Leg 4. Left total knee arthroplasty Family Medical History Family history: Alzheimer's disease 03 MOTHER Family history: Hypertension 03 FATHER 03 MOTHER Myocardial infarction 03 FATHER 03 MOTHER Heart Disease, Hypertension Review of Systems Constitutional: No chills, No dizziness, No fever, No malaise, No weakness EENTM: no symptoms reported Respiratory: no symptoms reported; No cough, No short of breath, No wheezing Cardiovascular: chest pain, Hx of Intervention, syncope Gastrointestinal: no symptoms reported Genitourinary: no symptoms reported, other (medel catheter in place) : No Musculoskeletal: No back pain; joint pain (L knee ); No muscle pain; muscle stiffness Skin: hx of skin cancer, rash (inferior aspect of R breast ) Psychiatric/Neurological: Anxiety, Depressed; Denies Headache, Denies Numbness; Pre-Existing Deficit (dementia) Physical Exam Vital Signs Vital Signs - First Documented 03/18/23 03/19/23 22:13 02:30 Temp 36.2 Pulse 57 Resp 16 B/P (MAP) 112/73 (86) Pulse Ox 94 O2 Delivery Room Air Capillary Refill : Height, Weight, BMI Height: 5'2.00" Weight: 170lbs. 2.0oz. [id number]; 31.16 BMI Method:Stated General Appearance: No Apparent Distress, WD/WN Eyes: Bilateral Eye Normal Inspection, Bilateral Eye PERRL, Bilateral Eye EOMI HEENT: PERRL/EOMI, Moist Mucous Membranes; No Pale Conjunctivae (L), No Pale Conjunctivae (R) Neck: Full Range of Motion, Normal Inspection, Non Tender, Supple Respiratory: Chest Non Tender, Lungs Clear, Normal Breath Sounds, No Accessory Muscle Use, No Respiratory Distress Cardiovascular: No Edema, No JVD, No Murmur, Normal Peripheral Pulses, Bradycardia, Extra Beats Gastrointestinal: Normal Bowel Sounds, No Organomegaly, No Pulsatile Mass, Non Tender, Soft Rectal: Deferred Back: Normal Inspection Extremity: Normal Capillary Refill, Normal Inspection, Normal Range of Motion, Other (L-knee pain) Neurologic/Psychiatric: Alert, Oriented x3, No Motor/Sensory Deficits, Normal Mood/Affect, verification rep II-XII Norm as Tested; No Abnormal verification rep II-XII, No Depressed Affect, No Disoriented, No EOM Palsy, No Facial Droop, No Motor Weakness, No Sensory Deficit; Other (negative babinski test bilateral ) Reflexes: 2+ Ankle (R), 2+ Ankle (L) Skin: Normal Color, Warm/Dry Lymphatic: No Adenopathy Assessment/Plan Assessment and Plan Assessment: * Arrythmia leading to syncopal episode * Hyperglycemia * Dehydration * TIA * Heat rash of R-breast * Medication misuse/ medication skipping * Dementia Plan: * Consult cardiology to review EKG and perform relevant testing * Control sugar, continue insulin as needed * Continue IV fluids to hydrate patient * CT showed no acute changes, monitor for changes in mental status, numbness, facial droop, or neurological changes * Monitor patient Problems: (1) Arrhythmia Status: Acute Qualifiers: Qualified Codes: I49.9 - Cardiac arrhythmia, unspecified Assessment & Plan: Cardiology consult and referral (2) Hyperglycemia Status: Acute Assessment & Plan: Insulin and medication management (3) Uncontrolled diabetes mellitus Status: Chronic Qualifiers: Qualified Codes: E11.65 - Type 2 diabetes mellitus with hyperglycemia (4) Stroke-like symptoms Onset Date: 03/17/2023 Status: Acute Assessment & Plan: CT showed no changes, monitor for change in neurological function (5) Dehydration Status: Acute Assessment & Plan: IV fluids, monitor I/Os (6) Medication noncompliance due to cognitive impairment Status: Chronic Assessment & Plan: Patient education, discussion with caretakers about consequences of skipping medications (7) History of dementia Status: Chronic (8) Bradycardia Status: Acute Admission Diagnosis Admission Status: Observation Clinical Quality Measures Admission Status Admission Dx LOC with neurological changes Admission Status: Observation Urinary Catheter-Non SCIP Pts: Reason for Catheter Continuanc: Accurate I&O MARI SANTANA DO 03/20/23 0419: History of Present Illness History of Present Illness Reason for visit/HPI Chief complaint: Neurological episode HPI: This is an 87-year-old female clinic patient of [facility] who presents with an unresponsive episode. She has a history of stroke. I am familiar with the patient for symptomatic bradycardia when she was admitted 2 months ago. Daughter and her other daughter on speaker phone has multiple questions and I have answered all to the best of my ability. Cardiology will be consulted. Allergies and Home Medications Allergies Coded Allergies: No Known Drug Allergies (Unverified , 06/05/20) Patient Home Medication List Alendronate Sodium (Alendronate Sodium) 70 Mg Tablet, 70 MG PO THURS, (Reported) Entered as Reported by: RENETTA ROSAS on 12/28/221829 Amlodipine Besylate (Amlodipine Besylate) 10 Mg Tablet, 10 MG PO DAILY, (Reported) Entered as Reported by: RENETTA ROSAS on 12/28/221829 Aspirin (Aspirin) 81 Mg Tab.chew, 81 MG PO DAILY, (Reported) Entered as Reported by: LAURE SOW on 06/05/20 075 Atorvastatin Calcium (Atorvastatin Calcium) 20 Mg Tablet, 20 MG PO DAILY, (Reported) Entered as Reported by: RENETTA ROSAS on 12/28/221829 Buspirone HCl (Buspirone HCl) 10 Mg Tablet, 10 MG PO BID, (Reported) Entered as Reported by: RENETTA ROSAS on 12/28/221829 Clopidogrel Bisulfate (Clopidogrel) 75 Mg Tablet, 75 MG PO DAILY, (Reported) Entered as Reported by: SUSAN KELLER on 12/29/22 1425 Donepezil HCl (Donepezil HCl) 5 Mg Tablet, 5 MG PO HS, (Reported) Entered as Reported by: RENETTA ROSAS on 12/28/221829 Exenatide Microspheres (Bydureon Bcise) 2 Mg/0.85 Ml Auto.injct, 2 MG INJ , (Reported) Entered as Reported by: RENETTA ROSAS on 12/28/221829 Glipizide (Glipizide) 5 Mg Tablet, 5 MG PO DAILY, (Reported) Entered as Reported by: RENETTA ROSAS on 12/28/221829 Insulin Detemir (Levemir Flexpen) 100 Unit/Ml (3 Ml) Insuln.pen, 15 UNIT SQ BID Prescribed by: MARI SANTANA on 12/31/22 1046 Levetiracetam (Levetiracetam) 500 Mg Tablet, 500 MG PO BID, (Reported) Entered as Reported by: LAURE SOW on 06/05/20 075 Levothyroxine Sodium (Levothyroxine Sodium) 75 Mcg Tablet, 75 MCG PO DAILY, (Reported) Entered as Reported by: RENETTA ROSAS on 12/28/22 1830 Losartan Potassium (Losartan Potassium) 50 Mg Tablet, 50 MG PO DAILY Prescribed by: MARI SANTANA on 12/31/22 1046 Pen Needle, Diabetic (Advocate Pen Needle) 33 Gauge X 5/32" Dis.needle, EACH MC BID, (DME) Prescribed by: MARI SANTANA on 12/31/22 1046 Quetiapine Fumarate (Quetiapine Fumarate) 50 Mg Tablet, 75 MG PO HS, (Reported) Entered as Reported by: RENETTA ROSAS on 12/28/22 1830 Sertraline HCl (Sertraline HCl) 100 Mg Tablet, 150 MG PO DAILY, (Reported) Entered as Reported by: RENETTA RODAS on 10/18/15 1734 Past Dftelbt-Mrnlyl-Vjmqqd Hx Patient Social History Marrital Status: single Employed/Student: retired Smoking Status: Former Smoker Past Medical History Coronary Artery Disease, High Cholesterol, Hypertension Dementia Family Medical History Family history: Alzheimer's disease 03 MOTHER Family history: Hypertension 03 FATHER 03 MOTHER Myocardial infarction 03 FATHER 03 MOTHER Review of Systems Constitutional: see HPI, dizziness Physical Exam General Appearance: No Apparent Distress, WD/WN, Chronically ill Respiratory: Lungs Clear, Normal Breath Sounds Cardiovascular: Bradycardia, Extra Beats Neurologic/Psychiatric: Alert, Oriented x3, Depressed Affect, Disoriented Assessment/Plan Assessment and Plan Assessment: Syncopal episode Bradycardia with irregularity of rhythm consulting cardiology Dementia history of CVA Plan: Supportive care Monitor closely Cardiology consult Supervisory-Addendum Brief Verification & Attestation Participated in pt care: history, MDM, physical Personally performed: exam, history, MDM, supervision of care Care discussed with: Medical Student Procedures: n/a Results interpretation: Verified all documentation Verification and Attestation of Medical Student E/M Service A medical student performed and documented this service in my presence. I reviewed and verified all information documented by the medical student and made modifications to such information, when appropriate. I personally performed the physical exam and medical decision making. Mari Santana Mar 20, 2023,04:14 KIANA GONZALEZ Mar 19, 2023 13:38 MARI SANTANA DO Mar 20, 2023 04:19
--- NOTE | 2023-03-19 17:30 | Consultation-Cardiology ---
HPI-Cardiology Cardiology Consultation: Date of Consultation 03/19/23 Date of Admission Attending Physician Trista Walker MD Admitting Physician Admitting Physician: Mari Santana DO Attending Physician: Mari Santana DO Consulting Physician Henry MONTERO MD HPI: Time Seen by a Provider: 19:00 Chief Complaint: Strokelike symptoms. This is a 87-year-old lady Recently admitted as well for sinus bradycardia.However with normal blood pressure. An event monitor for 30 days was recommended and if there was any significant bradycardia which was symptomatic, Then a pacemaker will be done. Patient does have history of coronary artery disease and peripheral arterial disease. She has history of dementia and is from a care home. She is a poor historian. Review of Systems-Cardiology Review of Systems Respiratory: shortness of breath Cardiovascular: chest pain, syncope : No TPI-Cgohqz-Awjdoc Hx Patient Social History Number of Children: 2 Number of living children: 2 Living Status: alone, with support care Employed/Student: retired 2[employer] Smoke Exposure: Yes Alcohol Use?: No Pt feels they are or have been: No Immunizations Up To Date Tetanus Booster (TDap): Unknown Date of Pneumonia Vaccine: Apr 12, 2015 Date of Influenza Vaccine: Jun 12, 2020 Past Medical History PMH As described under Assessment. Family Medical History Family Medical History: She reports both her parents had HTN and CAD. Family History: Family history: Alzheimer's disease 03 MOTHER Family history: Hypertension 03 FATHER 03 MOTHER Myocardial infarction 03 FATHER 03 MOTHER Allergies and Home Medications Allergies Coded Allergies: No Known Drug Allergies (Unverified , 06/05/20) Patient Home Medication List Home Medication List Reviewed: Yes Alendronate Sodium (Alendronate Sodium) 70 Mg Tablet, 70 MG PO , (Reported) Entered as Reported by: RENETTA ROSAS on 12/28/221829 Amlodipine Besylate (Amlodipine Besylate) 10 Mg Tablet, 10 MG PO DAILY, (Reported) Entered as Reported by: RENETTA ROSAS on 12/28/221829 Aspirin (Aspirin) 81 Mg Tab.chew, 81 MG PO DAILY, (Reported) Entered as Reported by: LAURE SOW on 06/05/20 0753 Atorvastatin Calcium (Atorvastatin Calcium) 20 Mg Tablet, 20 MG PO DAILY, (Reported) Entered as Reported by: RENETTA ROSAS on 12/28/221829 Buspirone HCl (Buspirone HCl) 10 Mg Tablet, 10 MG PO BID, (Reported) Entered as Reported by: RENETTA ROSAS on 12/28/221829 Clopidogrel Bisulfate (Clopidogrel) 75 Mg Tablet, 75 MG PO DAILY, (Reported) Entered as Reported by: SUSAN KELLER on 12/29/22 1425 Donepezil HCl (Donepezil HCl) 5 Mg Tablet, 5 MG PO HS, (Reported) Entered as Reported by: RENETTA ROSAS on 12/28/221829 Exenatide Microspheres (Bydureon Bcise) 2 Mg/0.85 Ml Auto.injct, 2 MG INJ THURS, (Reported) Entered as Reported by: RENETTA ROSAS on 12/28/221829 Glipizide (Glipizide) 5 Mg Tablet, 5 MG PO DAILY, (Reported) Entered as Reported by: RENETTA ROSAS on 12/28/221829 Insulin Detemir (Levemir Flexpen) 100 Unit/Ml (3 Ml) Insuln.pen, 15 UNIT SQ BID Prescribed by: MARI SANTANA on 12/31/22 104 Levetiracetam (Levetiracetam) 500 Mg Tablet, 500 MG PO BID, (Reported) Entered as Reported by: LAURE SOW on 06/05/20 0753 Levothyroxine Sodium (Levothyroxine Sodium) 75 Mcg Tablet, 75 MCG PO DAILY, (Reported) Entered as Reported by: RENETTA ROSAS on 12/28/221829 Losartan Potassium (Losartan Potassium) 50 Mg Tablet, 50 MG PO DAILY Prescribed by: MARI SANTANA on 12/31/22 1046 Pen Needle, Diabetic (Advocate Pen Needle) 33 Gauge X 5/32" Dis.needle, EACH MC BID, (DME) Prescribed by: MARI SANTANA on 12/31/22 1046 Quetiapine Fumarate (Quetiapine Fumarate) 50 Mg Tablet, 75 MG PO HS, (Reported) Entered as Reported by: RENETTA ROSAS on 12/28/221829 Sertraline HCl (Sertraline HCl) 100 Mg Tablet, 150 MG PO DAILY, (Reported) Entered as Reported by: RENETTA RODAS on 10/18/15 1734 Exam Vital Signs Vital Signs Date Time Temp Pulse Resp B/P (MAP) Pulse Ox O2 Delivery O2 Flow Rate FiO2 03/19/23 18:22 53 20 157/81 (106) 98 Room Air 03/19/23 16:29 37.0 Physical Exam Constitutional: No respiratory distress. Chest: Clear to auscultation bilaterally. CVS: Sinus bradycardia with heart rate 45. Neuro: Nonfocal. No significant pedal edema Labs Laboratory Tests Test 03/18/23 22:14 03/18/23 22:22 03/18/23 22:23 03/18/23 22:34 Range/Units White Blood Count 7.8 4.3-11.0 10^3/uL Red Blood Count 4.31 3.80-5.11 10^6/uL Hemoglobin 12.3 11.5-16.0 g/dL Hematocrit 39 35-52 % Mean Corpuscular Volume 90 80-99 fL Mean Corpuscular Hemoglobin 29 25-34 pg Mean Corpuscular Hemoglobin Concent 32 32-36 g/dL Red Cell Distribution Width 14.0 10.0-14.5 % Platelet Count 243 130-400 10^3/uL Mean Platelet Volume 9.9 9.0-12.2 fL Immature Granulocyte % (Auto) 1 % Neutrophils (%) (Auto) 68 42-75 % Lymphocytes (%) (Auto) 24 12-44 % Monocytes (%) (Auto) 5 0-12 % Eosinophils (%) (Auto) 2 0-10 % Basophils (%) (Auto) 1 0-10 % Neutrophils # (Auto) 5.3 1.8-7.8 10^3/uL Lymphocytes # (Auto) 1.9 1.0-4.0 10^3/uL Monocytes # (Auto) 0.4 0.0-1.0 10^3/uL Eosinophils # (Auto) 0.1 0.0-0.3 10^3/uL Basophils # (Auto) 0.0 0.0-0.1 10^3/uL Immature Granulocyte # (Auto) 0.0 0.0-0.1 10^3/uL Erythrocyte Sedimentation Rate 28 0-30 MM/HR Prothrombin Time 13.6 12.2-14.7 SEC INR Comment 1.0 0.8-1.4 Activated Partial Thromboplast Time 29 24-35 SEC D-Dimer 1.00 H 0.00-0.49 UG/ML Sodium Level 140 135-145 MMOL/L Potassium Level 3.5 L 3.6-5.0 MMOL/L Chloride Level 107 98-107 MMOL/L Carbon Dioxide Level 23 21-32 MMOL/L Anion Gap 10 5-14 MMOL/L Blood Urea Nitrogen 20 H 7-18 MG/DL Creatinine 1.14 0.60-1.30 MG/DL Estimat Glomerular Filtration Rate 47 BUN/Creatinine Ratio 18 Glucose Level 291 H 70-105 MG/DL Lactic Acid Level 1.49 0.50-2.00 MMOL/L Calcium Level 8.9 8.5-10.1 MG/DL Corrected Calcium 9.1 8.5-10.1 MG/DL Magnesium Level 1.9 1.6-2.4 MG/DL Total Bilirubin 0.4 0.1-1.0 MG/DL Aspartate Amino Transf (AST/SGOT) 16 5-34 U/L Alanine Aminotransferase (ALT/SGPT) 11 0-55 U/L Alkaline Phosphatase 71 40-136 U/L Total Creatine Kinase 615 H 29-168 U/L Creatine Kinase MB 2.1 <6.6 NG/ML Myoglobin 72.2 10.0-92.0 NG/ML Troponin I 0.033 H <0.028 NG/ML C-Reactive Protein High Sensitivity 0.28 0.00-0.50 MG/DL B-Type Natriuretic Peptide 192.2 H <100.0 PG/ML Total Protein 6.8 6.4-8.2 GM/DL Albumin 3.7 3.2-4.5 GM/DL TSH Orange Testing 3.16 0.35-4.94 UIU/ML Influenza Type A (RT-PCR) Not Detected Not Detecte Influenza Type B (RT-PCR) Not Detected Not Detecte SARS-CoV-2 RNA (RT-PCR) Not Detected Not Detecte Glucometer 263 H 70-110 MG/DL Urine Color YELLOW Urine Clarity CLEAR Urine pH 5.5 5-9 Urine Specific [place] >=1.030 1.016-1.022 Urine Protein 1+ H NEGATIVE Urine Glucose (UA) NEGATIVE NEGATIVE Urine Ketones NEGATIVE NEGATIVE Urine Nitrite NEGATIVE NEGATIVE Urine Bilirubin 1+ H NEGATIVE Urine Urobilinogen 0.2 < = 1.0 MG/DL Urine Leukocyte Esterase NEGATIVE NEGATIVE Urine RBC (Auto) NEGATIVE NEGATIVE Urine RBC 0-2 /HPF Urine WBC 0-2 /HPF Urine Squamous Epithelial Cells 10-25 H /HPF Urine Crystals PRESENT H /LPF Urine Amorphous Sediment MOD XIOMARA URATES H /LPF Urine Bacteria TRACE /HPF Urine Casts PRESENT /LPF Urine Hyaline Casts 0-2 H /LPF Urine Mucus LARGE H /LPF Urine Culture Indicated NO Test 03/19/23 01:23 03/19/23 05:28 Range/Units Troponin I < 0.028 <0.028 NG/ML White Blood Count 7.2 4.3-11.0 10^3/uL Red Blood Count 4.36 3.80-5.11 10^6/uL Hemoglobin 12.2 11.5-16.0 g/dL Hematocrit 39 35-52 % Mean Corpuscular Volume 90 80-99 fL Mean Corpuscular Hemoglobin 28 25-34 pg Mean Corpuscular Hemoglobin Concent 31 L 32-36 g/dL Red Cell Distribution Width 14.2 10.0-14.5 % Platelet Count 237 130-400 10^3/uL Mean Platelet Volume 9.7 9.0-12.2 fL Immature Granulocyte % (Auto) 1 % Neutrophils (%) (Auto) 66 42-75 % Lymphocytes (%) (Auto) 24 12-44 % Monocytes (%) (Auto) 7 0-12 % Eosinophils (%) (Auto) 2 0-10 % Basophils (%) (Auto) 1 0-10 % Neutrophils # (Auto) 4.7 1.8-7.8 10^3/uL Lymphocytes # (Auto) 1.7 1.0-4.0 10^3/uL Monocytes # (Auto) 0.5 0.0-1.0 10^3/uL Eosinophils # (Auto) 0.2 0.0-0.3 10^3/uL Basophils # (Auto) 0.0 0.0-0.1 10^3/uL Immature Granulocyte # (Auto) 0.0 0.0-0.1 10^3/uL Sodium Level 142 135-145 MMOL/L Potassium Level 3.7 3.6-5.0 MMOL/L Chloride Level 109 H 98-107 MMOL/L Carbon Dioxide Level 24 21-32 MMOL/L Anion Gap 9 5-14 MMOL/L Blood Urea Nitrogen 16 7-18 MG/DL Creatinine 0.98 0.60-1.30 MG/DL Estimat Glomerular Filtration Rate 57 BUN/Creatinine Ratio 16 Glucose Level 159 H 70-105 MG/DL Calcium Level 8.5 8.5-10.1 MG/DL Corrected Calcium 9.0 8.5-10.1 MG/DL Total Bilirubin 0.4 0.1-1.0 MG/DL Aspartate Amino Transf (AST/SGOT) 12 5-34 U/L Alanine Aminotransferase (ALT/SGPT) 9 0-55 U/L Alkaline Phosphatase 65 40-136 U/L Total Protein 6.4 6.4-8.2 GM/DL Albumin 3.4 3.2-4.5 GM/DL Triglycerides Level 208 H <150 MG/DL Cholesterol Level 233 H < 200 MG/DL LDL Cholesterol Direct 169 H 1-129 MG/DL VLDL Cholesterol 42 H 5-40 MG/DL HDL Cholesterol 43 40-60 MG/DL ECG Impression ECG Initial ECG Rhythm: S.Rod A/P-Cardiology Assessment/Admission Diagnosis Sinus bradycardia, Possible syncope, CAD, PAD, Previous history of strokes, Dementia Plan This is a 87-year-old lady with sinus bradycardia. Lowest heart rate that I have seen is 44. Blood pressure is elevated with systolic blood pressure in the 160s. She is a poor historian. She would say yes to any complain that I will ask. She said yes to syncope, chest pain and shortness of breath. I am unclear if the patient truly has symptomatic bradycardia. Since she continues to be in sinus bradycardia with normal blood pressure in the hospital. Is very unlikely that this is causing syncope or significant dizziness. We will try to reach the family and/or the care home to confirm whether patient did complain of sympt oms earlier. If the patient does have symptomatic bradycardia, pacing will be indicated. I had previously requested an event monitor for 30 days and to follow-up with Dr. Rees. CAD: Borderline troponin. PAD: No active issues. Hypertension, controlled Diabetes mellitus, poor control, hyperglycemia Managed by primary care team. PAD: Previous peripheral angiogram of Jun 05, 2020: Successful balloon angioplasty of the right anterior tibial with reduction of stenosis to less than 50%. Successful balloon angioplasty of the proximal right peroneal which reduced the stenosis to less than 50%, but the mid peroneal remains occluded. Chronically occluded right posterior tibial to which intervention was not attempted. Chronically proximally occluded left posterior tibial and peroneal arteries and severe diffuse disease of the anterior tibial to which successful balloon angioplasty was carried out on Jun 19, 2020 History of critical limb ischemia, bilateral, treated with PCI on 06/05/20 and 06/19/20 (see above) S/p multiple strokes in early to mid 2015; now as bilat leg weakness that is more on the L, poor balance, and loss of R visual field. S/p L TKR in Jul 2015 CAD - Cardiac cath of 06-19-15 showed a widely patent stent in the prox LAD which is known to be Promus 2.5 x 8 mm stent placed in 2009. The mid LAD has tandem up to 50% lesions across which the FFR is 0.85, indicateing hemodynamic insignificance. The RCA has 40 to 50% stenoses in its prox and distal portions. LVEF 60-65%. Normal LVEDP. No significant MR. Echo 06/04/15 showed LVEF 65-70%, mod conc LVH, mild AoV sclerosis, mild AI and TR, mild diastolic dysfunction, PASP 25 mmHg DM II h/o hyperlipidemia,managed and followed by her PCP Mild carotid arterial disease diagnosed at [facility] at the time of CVA in October 2015, per patient report Henry MONTERO MD Mar 19, 2023 17:30
[2023-03-20] MEDS: D5 1/2NS + KCL 20 MEQ/L 1000ML 1,000 ML IV SCH ×2 (01:26→01:36)
[2023-03-20 03:45] VITALS: BP 167/69
[2023-03-20 04:26] VITALS: BP 167/96
[2023-03-20] MEDS ORDERED: diphenhydrAMINE INJ 50 MG/ML VIAL IVP PRN (04:30)
[2023-03-20] MEDS ORDERED: ACETAMINOPHEN 325 MG TABLET PO PRN (04:30)
[2023-03-20] MEDS ORDERED: ANTACID SUSPENSION 30 ML UDC PO PRN (04:30)
[2023-03-20] MEDS ORDERED: BISACODYL 10 MG SUPPOSITORY PR PRN (04:30)
[2023-03-20] MEDS ORDERED: MILK OF MAGNESIA 400 MG/5 ML 30 ML UDC PO PRN (04:30)
[2023-03-20] MEDS ORDERED: diphenhydrAMINE 25 MG TABLET PO PRN (04:30)
[2023-03-20] MEDS ORDERED: ONDANSETRON 4 MG ORAL DISSOLVE TABLET PO PRN (04:30)
[2023-03-20] MEDS ORDERED: CALCIUM CARBONATE 500 MG CHEW TABLET PO PRN (04:30)
[2023-03-20] MEDS ORDERED: MELATONIN 3 MG TABLET PO PRN (04:30)
[2023-03-20] MEDS ORDERED: LACTULOSE SYRUP 10GM/15ML 30ML UDC PO PRN (04:30)
[2023-03-20] MEDS ORDERED: ONDANSETRON INJECTION 4 MG/2 ML (SDV) IV PRN (04:30)
[2023-03-20] MEDS ORDERED: RT-Ipratropium/Albuterol NEB 3 ML VIAL INH PRN (04:45)
[2023-03-20 05:53] LABS: BASOPHILS % (AUTO) 0 % (0-10); EOSINOPHILS # (AUTO) 0.2 10^3/uL (0.0-0.3); EOSINOPHILS % (AUTO) 2 % (0-10); HEMATOCRIT 40 % (35-52); HEMOGLOBIN 12.4 g/dL (11.5-16.0); LYMPHOCYTES # (AUTO) 1.8 10^3/uL (1.0-4.0); LYMPHOCYTES % (AUTO) 21 % (12-44); MEAN CORPUSCULAR HEMOGLOBIN 28 pg (25-34); MEAN CORPUSCULAR HGB CONC 31 g/dL (32-36); MEAN CORPUSCULAR VOLUME 89 fL (80-99); MEAN PLATELET VOLUME 9.5 fL (9.0-12.2); MONOCYTES # (AUTO) 0.5 10^3/uL (0.0-1.0); MONOCYTES % (AUTO) 6 % (0-12); NEUTROPHILS % (AUTO) 70 % (42-75); PLATELET COUNT 215 10^3/uL (130-400); WHITE BLOOD COUNT 8.5 10^3/uL (4.3-11.0)
[2023-03-20 06:12] LABS: ALBUMIN 3.2 GM/DL (3.2-4.5)
[2023-03-20 06:14] LABS: CALCIUM 8.3 MG/DL (8.5-10.1)
[2023-03-20 06:17] LABS: BILIRUBIN,TOTAL 0.4 MG/DL (0.1-1.0)
[2023-03-20 06:19] LABS: CREATININE SERUM 0.87 MG/DL (0.60-1.30)
[2023-03-20] MEDS: NS IV 1000 ML 1,000 ML IV SCH ×3 (06:25→22:47)
[2023-03-20] MEDS: LEVOTHYROXINE 75 MCG TABLET PO SCH (06:25)
[2023-03-20] MEDS: ENOXAPARIN 40 MG/0.4 ML SYRINGE SC SCH (06:26)
[2023-03-20] MEDS: inSUlin ASPART 1 UNIT/0.01 ML (PER UNIT) SC SCH ×4 (06:26→21:16)
[2023-03-20 07:51] VITALS: BP 151/68
--- NOTE | 2023-03-20 08:24 | Physical Therapy Daily Note ---
PT Daily Note-Current Subjective Patient agrees to PT. Pain Section J - Health Conditions 1. Rarely or not at all 2. Occasionally 3. Frequently 4. Almost constantly 8. Unable to answer Pain Effect on Sleep: 1 Pain Interference with Therapy: 1 Pain Interference w/Day-to-Day: 1 Mental Status Patient Orientation: Person, Place, Time, Situation Attachments: Whelan Catheter, IV Transfers SCALE: Activities may be completed with or without assistive devices. 1-Jzjqvkherf-guxudhu completes the activity by him/herself with no assistance from a helper. 5-Set-up or Clean-up Assistance-helper sets up or cleans up; patient completes activity. [place] assists only prior to or following the activity. 4-Supervision or Touching Assistance-helper provides verbal cues and/or touching/steadying and/or contact guard assistance as patient completes activity. Assistance may be provided throughout the activity or intermittently. 3-Partial/Moderate Assistance-helper does LESS THAN HALF the effort. [place] lifts, holds or supports trunk or limbs, but provides less than half the effort. 2-Substantial/Maximal Assistance-helper does MORE THAN HALF the effort. [place] lifts or holds trunk or limbs and provides more than half the effort. 3-Coyrorvrr-qfnhjw does ALL the effort. Patient does none of the effort to complete the activity. Or, the assistance of 2 or more helpers is required for the patient to complete the activity. If activity was not attempted, code reason: 7-Patient Refused. 9-Not Applicable-not attempted and the patient did not perform the activity before the current illness, exacerbation or injury. 10-Not Attempted due to Environmental Limitations-(lack of equipment, weather restraints, etc.). 88-Not Attempted due to Medical Conditions or Safety Concerns. Lying to Sitting/Side of Bed(Q: 4 Sit to Stand (QC): 4 Chair/Hsy-nj-Xuatp Xfer(QC): 4 Gait Training Distance: 5 steps Gait Assistive Device: None Exercises Seated Therapy Exercises: Ankle pumps, Long arc quads Seated Reps: 15 Assessment Patient incontinent BM requiring dependent assist to cleanse and change. Patient was unaware she had a BM. Patient up in recliner with needs met. PT Kitchenwhere Maker Goals Kitchenwhere Maker Goals PT Kitchenwhere Maker Goals Time Frame: Mar 28, 2023 Roll Left & Right (QC): 6 Sit to Lying (QC): 6 Lying-Sitting on Side/Bed(QC): 6 Sit to Stand (QC): 6 Chair/Uam-ym-Sltfr Xfer(QC): 6 PT Plan Treatment/Plan Treatment Plan: Continue Plan of Care Treatment Plan: Bed Mobility, Education, Functional Strength, Safety, Therapeutic Exercise, Transfers Treatment Duration: Mar 28, 2023 Frequency: 5 times per week Estimated Hrs Per Day: .25 hour per day Patient and/or Family Agrees t: Yes Time Time In: 800 Time Out: 815 DATE: Mar 20, 2023 Total Billed Treatment Time: 15 Total Billed Treatment 1 visit FA 15 min TREVOR JOY PT Mar 20, 2023 08:24
[2023-03-20] MEDS ORDERED: INSU100I88 SQ (11:41)
[2023-03-20] MEDS ORDERED: LOSA50TA63 PO (11:41)
[2023-03-20 11:45] VITALS: BP 165/87
[2023-03-20] MEDS: CLOPIDOGREL 75 MG TABLET PO SCH ×2 (11:55→13:49)
[2023-03-20] MEDS: amLODIPine 5 MG TABLET PO SCH ×2 (11:55→13:49)
[2023-03-20] MEDS: DOCUSATE SODIUM 100 MG CAPSULE PO SCH ×2 (11:56→20:34)
[2023-03-20] MEDS: ASPIRIN enteric coated 81MG TABLET PO SCH ×2 (11:56→13:48)
[2023-03-20] MEDS: SENNOSIDES 8.6 MG TABLET PO SCH ×2 (11:56→20:34)
--- NOTE | 2023-03-20 13:13 | Progress Note ---
KIANA GONZALEZ 03/20/23 1313: Subjective Date Seen by a Provider: Mar 20, 2023 Time Seen by a Provider: 09:40 Subjective/Events-last exam 03/20/2023: CC: syncopal episode with following neurological changes Lady (87F) notes that since last visit she has been more sleepy. She denies return of any neurological symptoms- specifically denying any weakness, numbness, facial droop, or slurred speech. She also notes that she is not in pain. She stated that she has had some new difficulty breathing, but it hasn't been constant and is associated with bed to chair transfers. She has a lot of questions about getting a pacemaker, which were deferred to cardiology to discuss. She wants to go home. She is on an NPO diet and hasn't eaten anything today. Cardiology consult with Dr. Dexter revealed symptomatic bradycardia which supports potential placement of a pacemaker. Her diet was made NPO. Echo showed no major abnormalities, just slightly reduced EF (50%). Her bedside glucose was elevated to 236. Review of Systems General: No Chills, No Night Sweats; Fatigue; No Malaise, No Appetite, No Other HEENT: No Head Aches, No Visual Changes, No Eye Pain, No Ear Pain, No Dysphasia, No Sinus Congestion, No Post Nasal Drip, No Sore Throat, No Other Pulmonary: Dyspnea; No Cough, No Pleuritic Chest Pain, No Other Cardiovascular: No: Chest Pain, Palpitations, Orthopnea, Paroxysmal Noc. Dyspnea, Edema, Lt Headedness, Other Gastrointestinal: No: Nausea, Vomiting, Abdominal Pain, Diarrhea, Constipation, Melena, Hematochezia, Other Genitourinary: Other (medel catheter in place) Musculoskeletal: No: other, neck pain, shoulder pain, arm pain, back pain, hand pain, leg pain, foot pain Neurological: No: Weakness, Numbness, Incoordination, Change in speech, Confusion, Seizures, Other Focused Exam Lactate Level 03/18/23 22:14: Lactic Acid Level 1.49 Objective Exam Last Set of Vital Signs Vital Signs Date Time Temp Pulse Resp B/P (MAP) Pulse Ox O2 Delivery O2 Flow Rate FiO2 03/20/23 12:22 65 03/20/23 12:07 98 Room Air 9/8/23 11:45 36.4 15 165/87 (113) 03/20/23 04:26 21 Capillary Refill : I&O Intake and Output 03/20/23 00:00 Intake Total 1400 ml Output Total 2250 ml Balance -850 ml Intake Oral 400 ml IV Total 1000 ml Output Urine Total 2250 ml # Bowel Movements 1 Daily Weight Change No General: Alert, Oriented X3, Cooperative, No Acute Distress HEENT: Atraumatic, PERRLA Neck: Supple, No JVD, No Thyromegaly, +2 Carotid Pulse No Bruit, No LAD Heart: Normal S1, Normal S2, No Murmurs, Other (bradycardia with symptoms) Abdomen: Normal Bowel Sounds, Soft, No Tenderness, No Hepatosplenomegaly, No Masses Extremities: No Clubbing, No Cyanosis, No Edema, Normal Pulses, No Tenderness/Swelling Skin: Other (breast rash present) Neuro: Normal Speech, Strength at 5/5 X4 Ext, Normal Tone Results Lab Laboratory Tests 03/19/23 16:39: Glucometer 159H 03/19/23 20:40: Glucometer 255H 03/20/23 05:40: White Blood Count 8.5, Red Blood Count 4.44, Hemoglobin 12.4, Hematocrit 40, Mean Corpuscular Volume 89, Mean Corpuscular Hemoglobin 28, Mean Corpuscular Hemoglobin Concent 31L, Red Cell Distribution Width 14.1, Platelet Count 215, Mean Platelet Volume 9.5, Immature Granulocyte % (Auto) 0, Neutrophils (%) (Auto) 70, Lymphocytes (%) (Auto) 21, Monocytes (%) (Auto) 6, Eosinophils (%) (Auto) 2, Basophils (%) (Auto) 0, Neutrophils # (Auto) 6.0, Lymphocytes # (Auto) 1.8, Monocytes # (Auto) 0.5, Eosinophils # (Auto) 0.2, Basophils # (Auto) 0.0, Immature Granulocyte # (Auto) 0.0, Sodium Level 136, Potassium Level 4.0, Chlo ride Level 108H, Carbon Dioxide Level 19L, Anion Gap 9, Blood Urea Nitrogen 12, Creatinine 0.87, Estimat Glomerular Filtration Rate 65, BUN/Creatinine Ratio 14, Glucose Level 236H, Calcium Level 8.3L, Corrected Calcium 8.9, Total Bilirubin 0.4, Aspartate Amino Transf (AST/SGOT) 14, Alanine Aminotransferase (ALT/SGPT) 11, Alkaline Phosphatase 68, Total Protein 6.0L, Albumin 3.2 03/20/23 10:50: Glucometer 105 Assessment/Plan Assessment/Plan Assess & Plan/Chief Complaint Assessment: * Syncopal Episode * Symptomatic bradycardia * Dementia * Prior CVA Plan: * Cardiology management, NPO for pacemaker placement * Supportive care measures * Monitor for changes or reoccurrence of neurological symptoms Final Diagnosis Syncopal Episode due to symptomatic bradycardia Diagnosis/Problems Diagnosis/Problems (1) Bradycardia Onset Date: ~ 03/18/2023 Status: Acute Assessment & Plan: Symptomatic, cardiology made NPO for pacemaker placement (2) Hyperglycemia Status: Acute Assessment & Plan: Insulin and medication management (3) Uncontrolled diabetes mellitus Status: Chronic Qualifiers: Qualified Codes: E11.65 - Type 2 diabetes mellitus with hyperglycemia (4) Stroke-like symptoms Onset Date: 03/17/2023 Status: Resolved Assessment & Plan: CT showed no changes, monitor for change in neurological function Resolution Date/Time: 03/18/23 @ 13:19 (5) Dehydration Status: Acute Assessment & Plan: IV fluids, monitor I/Os (6) Medication noncompliance due to cognitive impairment Status: Chronic Assessment & Plan: Patient education, discussion with caretakers about consequences of skipping medications (7) History of dementia Status: Chronic Clinical Quality Measures Admission Status Admission Dx LOC with neurological changes Urinary Catheter-Non SCIP Pts: Reason for Catheter Continuanc: Accurate I&O MARI SANTANA DO 03/20/23 2106: Subjective Subjective/Events-last exam Patient doing a little better Still very weak May need pacemaker awaiting cardiology eval Objective Exam General: Alert, Oriented X3, Cooperative, No Acute Distress Lungs: Clear to Auscultation Heart: Regular Rate Psych/Mental Status: Mental Status NL, Mood NL Assessment/Plan Assessment/Plan Assess & Plan/Chief Complaint Await pacemaker decision Needs rehab Supervisory-Addendum Brief Verification & Attestation Participated in pt care: history, MDM, physical Personally performed: exam, history, MDM, supervision of care Care discussed with: Medical Student Procedures: n/a Results interpretation: Verified all documentation Verification and Attestation of Medical Student E/M Service A medical student performed and documented this service in my presence. I reviewed and verified all information documented by the medical student and made modifications to such information, when appropriate. I personally performed the physical exam and medical decision making. Mari Santana, Mar 20, 2023,21:05 KIANA GONZALEZ Mar 20, 2023 13:13 MARI SANTANA DO Mar 20, 2023 21:06
--- NOTE | 2023-03-20 14:58 | Occupational Therapy Eval ---
OT Evaluation-General/PLF Medical Diagnosis Admission Date Mar 19, 2023 at 12:00 Medical Diagnosis: stroke like symptoms/DM Onset Date: Mar 19, 2023 Therapy Diagnosis Therapy Diagnosis: weakness Height/Weight Height (Feet): 5 Height (Inches): 2.00 Weight (Pounds): 170 Weight (Ounces): 2.0 Precautions Precautions/Isolations: Seizure, Fall Prevention, Standard Precautions, Pressure Ulcer Weight Bear Status Weight Bearing Restriction: Full Weight Bearing Referral Physician: Rambo Referral Reason: Evaluation/Treatment Medical History Pertinent Medical History: Arthritis, CAD, CVA, DM, Heart Failure, HTN Reviewed History: Yes Social History Current Living Status: Alone ADL-Prior Level of Function SCALE: Activities may be completed with or without assistive devices. 8-Txxafjgsqk-tplfotp completes the activity by him/herself with no assistance from a helper. 5-Set-up or Clean-up Assistance-helper sets up or cleans up; patient completes activity. [place] assists only prior to or following the activity. 4-Supervision or Touching Assistance-helper provides verbal cues and/or touching/steadying and/or contact guard assistance as patient completes activity. Assistance may be provided throughout the activity or intermittently. 3-Partial/Moderate Assistance-helper does LESS THAN HALF the effort. [place] l ifts, holds or supports trunk or limbs, but provides less than half the effort. 2-Substantial/Maximal Assistance-helper does MORE THAN HALF the effort. [place] lifts or holds trunk or limbs and provides more than half the effort. 9-Qomdkdyhf-bbvvfm does ALL the effort. Patient does none of the effort to complete the activity. Or, the assistance of 2 or more helpers is required for t he patient to complete the activity. If activity was not attempted, code reason: 7-Patient Refused. 9-Not Applicable-not attempted and the patient did not perform the activity before the current illness, exacerbation or injury. 10-Not Attempted due to Environmental Limitations-(lack of equipment, weather restraints, etc.). 88-Not Attempted due to Medical Conditions or Safety Concerns. Self Care: Needed Some Help Functional Cognition: Needed Some Help Daughter is present and helps at home as needed Drive Self: No OT Current Status Subjective Resting in recliner, w/ feet elevated. Agreeable to participate in OT Mental Status/Objective Patient Orientation: Person, Place, Time, Situation Attachments: [place] Catheter Current Upper Extremity ROM BUE ROM WFLs, limited IR behind back for BM hygiene, daughter monitors cleanline ss Upper Extremity Coordination intact Upper Extremity Sensation intact Upper Extremity Strength BUE WFLS age appropriate ADL-Treatment Eating (QC): 6 Oral Hygiene (QC): 5 (set up sitting in recliner) Shower/Bathe Self (QC): 7 Upper Body Dressing (QC): 5 Lower Body Dressing (QC): 4 On/Off Footwear (QC): 3 Toileting Hygiene (QC): 4 Using BSC, is able to ambulate to bathroom w/ FWW and assist of one person, BSC is more convient per patient report Education OT Patient Education: Exercise program, Instructions to caregiver, Modified ADL techniques, Progress toward Goal/Update tx plan, Purpose of tx/functional activities, Reviewed precautions, Rehab process, Safety issues, Transfer techniques, Use of adapted equipment Teaching Recipient: Patient, Family Teaching Methods: Demonstration, Discussion Response to Teaching: Verbalize Understanding OT Microsoft Developer Goals Microsoft Developer Goals 1=Demonstrate adherence to instructed precautions during ADL tasks. 2=Patient will verbalize/demonstrate understanding of assistive devices/modifications for ADL. 3=Patient will improve strength/tolerance for activity to enable patient to perform ADL's. OT Education/Plan Problem List/Assessment Assessment: No Skilled OT Needs ID'd Discharge Recommendations Plan/Recommendations: Discontinue OT Treatment Plan/Plan of Care Patient would benefit from OT for education, treatment and training to promote independence in ADL's, mobility, safety and/or upper extremity function for ADL's. Plan of Care: OTHER (EVAL ONLY) Treatment Duration: Mar 20, 2023 Frequency: 1 time per week Estimated Hrs Per Day: .25 hour per day Agreement: Yes Rehab Potential: Fair remains in Dr adryan lunsford w/ family Time Start Time: 14:45 Stop Time: 14:59 DATE: Mar 20, 2023 Total Time Billed (hr/min): 14 Billed Treatment Time EVM 14 min BELGICA GILL OT Mar 20, 2023 14:58
[2023-03-20 16:00] VITALS: BP 131/79
--- NOTE | 2023-03-20 17:28 | Cardiology Progress Note ---
Cardiology SOAP Progress Note Subjective: No significant cardiac complaints. Objective: I&O/Vital Signs 03/20/23 03/20/23 03/20/23 03/20/23 07:00 07:51 08:00 11:45 Temp 36.1 36.4 Pulse 54 53 56 Resp 18 15 B/P (MAP) 151/68 (95) 165/87 (113) Pulse Ox 95 96 98 O2 Delivery Room Air Room Air Room Air 03/20/23 03/20/23 03/20/23 12:07 12:22 16:00 Temp 36.4 Pulse 65 62 Resp 24 B/P (MAP) 131/79 (96) Pulse Ox 98 96 O2 Delivery Room Air Room Air 03/20/23 00:00 Intake Total 400 ml Output Total 1600 ml Balance -1200 ml Weight (Pounds): 170 Weight (Ounces): 2.0 Weight (Calculated Kilograms): [id number] Constitutional: AAO x 3 Respiratory: lungs clear to auscultation Cardiovascular: regular rate-rhythm, bradycardia Gastrointestional: soft Neurologic/Psychiatric: alert, normal mood/affect Skin: normal color Results/Procedures: Labs Laboratory Tests 03/19/23 20:40: Glucometer 255H 03/20/23 05:40: White Blood Count 8.5, Red Blood Count 4.44, Hemoglobin 12.4, Hematocrit 40, Mean Corpuscular Volume 89, Mean Corpuscular Hemoglobin 28, Mean Corpuscular Hemoglobin Concent 31L, Red Cell Distribution Width 14.1, Platelet Count 215, Mean Platelet Volume 9.5, Immature Granulocyte % (Auto) 0, Neutrophils (%) (Auto) 70, Lymphocytes (%) (Auto) 21, Monocytes (%) (Auto) 6, Eosinophils (%) (Auto) 2, Basophils (%) (Auto) 0, Neutrophils # (Auto) 6.0, Lymphocytes # (Auto) 1.8, Monocytes # (Auto) 0.5, Eosinophils # (Auto) 0.2, Basophils # (Auto) 0.0, Immature Granulocyte # (Auto) 0.0, Sodium Level 136, Potassium Level 4.0, Chloride Level 108H, Carbon Dioxide Level 19L, Anion Gap 9, Blood Urea Nitrogen 12, Creatinine 0.87, Estimat Glomerular Filtration Rate 65, BUN/Creatinine Ratio 14, Glucose Level 236H, Calcium Level 8.3L, Corrected Calcium 8.9, Total Bilirubin 0.4, Aspartate Amino Transf (AST/SGOT) 14, Alanine Aminotransferase (ALT/SGPT) 11, Alkaline Phosphatase 68, Total Protein 6.0L, Albumin 3.2 03/20/23 10:50: Glucometer 105 03/20/23 16:22: Glucometer 215H A/P: Assessment/Dx: Sinus bradycardia, Possible syncope, CAD, PAD, Previous history of strokes, Dementia Plan: This is a 87-year-old lady with sinus bradycardia. Lowest heart rate that I have seen is 44. Blood pressure is elevated with systolic blood pressure in the 160s. She is a poor historian. She would say yes to any complain that I will ask. She said yes to syncope, chest pain and shortness of breath. I am unclear if the patient truly has symptomatic bradycardia. Since she continues to be in sinus bradycardia with normal blood pressure in the hospital. No acute indication of a permanent pacemaker at this moment. If the patient does have symptomatic bradycardia, pacing will be indicated. I had previously requested an event monitor for 30 days and to follow-up with Dr. Rees. CAD: Borderline troponin. PAD: No active issues. Hypertension, controlled Diabetes mellitus, poor control, hyperglycemia Managed by primary care team. PAD: Previous peripheral angiogram of Jun 05, 2020: Successful balloon angioplasty of the right anterior tibial with reduction of stenosis to less than 50%. Successful balloon angioplasty of the proximal right peroneal which reduced the stenosis to less than 50%, but the mid peroneal remains occluded. Chronically occluded right posterior tibial to which intervention was not attempted. Chronically proximally occluded left posterior tibial and peroneal arteries and severe diffuse disease of the anterior tibial to which successful balloon angioplasty was carried out on Jun 19, 2020 History of critical limb ischemia, bilateral, treated with PCI on 06/05/20 and 06/19/20 (see above) S/p multiple strokes in early to mid 2015; now as bilat leg weakness that is more on the L, poor balance, and loss of R visual field. S/p L TKR in Jul 2015 CAD - Cardiac cath of 06-19-15 showed a widely patent stent in the prox LAD which is known to be Promus 2.5 x 8 mm stent placed in 2009. The mid LAD has tandem up to 50% lesions across which the FFR is 0.85, indicateing hemodynamic insignificance. The RCA has 40 to 50% stenoses in its prox and distal portions. LVEF 60-65%. Normal LVEDP. No significant MR. Echo 06/04/15 showed LVEF 65-70%, mod conc LVH, mild AoV sclerosis, mild AI and TR, mild diastolic dysfunction, PASP 25 mmHg DM II h/o hyperlipidemia,managed and followed by her PCP Mild carotid arterial disease diagnosed at [facility] at the time of CVA in October 2015, per patient report Focused Exam Lactate Level 03/18/23 22:14: Lactic Acid Level 1.49 Clinical Quality Measures Urinary Catheter-Non SCIP Pts: Reason for Catheter Continuanc: Accurate I&O Henry MONTERO MD Mar 20, 2023 17:28
[2023-03-20 20:00] VITALS: BP 132/64
[2023-03-21] VITALS: BP 169/79
[2023-03-21 03:45] VITALS: BP 155/72
[2023-03-21] MEDS: ENOXAPARIN 40 MG/0.4 ML SYRINGE SC SCH (04:38)
[2023-03-21 05:57] LABS: BASOPHILS % (AUTO) 0 % (0-10); EOSINOPHILS # (AUTO) 0.2 10^3/uL (0.0-0.3); EOSINOPHILS % (AUTO) 2 % (0-10); HEMATOCRIT 38 % (35-52); HEMOGLOBIN 12.2 g/dL (11.5-16.0); LYMPHOCYTES # (AUTO) 1.9 10^3/uL (1.0-4.0); LYMPHOCYTES % (AUTO) 21 % (12-44); MEAN CORPUSCULAR HEMOGLOBIN 29 pg (25-34); MEAN CORPUSCULAR HGB CONC 32 g/dL (32-36); MEAN CORPUSCULAR VOLUME 88 fL (80-99); MEAN PLATELET VOLUME 9.8 fL (9.0-12.2); MONOCYTES # (AUTO) 0.5 10^3/uL (0.0-1.0); MONOCYTES % (AUTO) 6 % (0-12); NEUTROPHILS # (AUTO) 6.4 10^3/uL (1.8-7.8); NEUTROPHILS % (AUTO) 71 % (42-75); PLATELET COUNT 234 10^3/uL (130-400)
[2023-03-21 06:17] LABS: ALBUMIN 3.3 GM/DL (3.2-4.5); BILIRUBIN,TOTAL 0.6 MG/DL (0.1-1.0); CALCIUM 8.6 MG/DL (8.5-10.1); CREATININE SERUM 0.86 MG/DL (0.60-1.30); TOTAL PROTEIN 6.3 GM/DL (6.4-8.2)
[2023-03-21] MEDS: inSUlin ASPART 1 UNIT/0.01 ML (PER UNIT) SC SCH (06:23)
[2023-03-21] MEDS: LEVOTHYROXINE 75 MCG TABLET PO SCH (06:41)
--- NOTE | 2023-03-21 06:56 | Discharge Summary ---
Diagnosis/Chief Complaint Date of Admission Mar 19, 2023 at 12:00 Date of Discharge Discharge Date: Mar 21, 2023 Discharge Diagnosis (1) Bradycardia Onset Date: ~ 03/18/2023 Status: Acute Assessment & Plan: Symptomatic, cardiology made NPO for pacemaker placement (2) Hyperglycemia Status: Acute Assessment & Plan: Insulin and medication management (3) Uncontrolled diabetes mellitus Status: Chronic Qualifiers: Qualified Codes: E11.65 - Type 2 diabetes mellitus with hyperglycemia (4) Stroke-like symptoms Onset Date: 03/17/2023 Status: Resolved Assessment & Plan: CT showed no changes, monitor for change in neurological function Resolution Date/Time: 03/18/23 @ 13:19 (5) Dehydration Status: Acute Assessment & Plan: IV fluids, monitor I/Os (6) Medication noncompliance due to cognitive impairment Status: Chronic Assessment & Plan: Patient education, discussion with caretakers about consequences of skipping medications (7) History of dementia Status: Chronic Reason Hospital Visit Chief complaint: Neurological episode HPI: This is an 87-year-old female clinic patient of [facility] who presents with an unresponsive episode. She has a history of stroke. I am familiar with the patient for symptomatic bradycardia when she was admitted 2 months ago. Daughter and her other daughter on speaker phone has multiple questions and I have answered all to the best of my ability. Cardiology will be consulted. Discharge Summary Discharge Physical Examination Allergies: Coded Allergies: No Known Drug Allergies (Unverified , 06/05/20) Vitals & I&Os Vital Signs Date Time Temp Pulse Resp B/P (MAP) Pulse Ox O2 Delivery O2 Flow Rate FiO2 03/21/23 10:31 36.3 55 16 148/77 92 Room Air 0.00 03/20/23 04:26 21 General Appearance: Alert, Oriented X3, Cooperative Respiratory: Clear to Auscultation Cardiovascular: Regular Rate Hospital Course Was the Problem List Reviewed?: Yes Uneventful course after she was admitted for symptomatic bradycardia with syncope. Tely maintained and Cardiology consulted. Overall she remained stable. Weakness was an issue so met criteria for ARU. Dementia was an issue and will need ST management. No pacemaker was indicated. Labs (last 24 hrs) Laboratory Tests 03/18/23 22:14: White Blood Count 7.8, Red Blood Count 4.31, Hemoglobin 12.3, Hematocrit 39, Mean Corpuscular Volume 90, Mean Corpuscular Hemoglobin 29, Mean Corpuscular Hemoglobin Concent 32, Red Cell Distribution Width 14.0, Platelet Count 243, Mean Platelet Volume 9.9, Immature Granulocyte % (Auto) 1, Neutrophils (%) (Auto) 68, Lymphocytes (%) (Auto) 24, Monocytes (%) (Auto) 5, Eosinophils (%) (Auto) 2, Basophils (%) (Auto) 1, Neutrophils # (Auto) 5.3, Lymphocytes # (Auto) 1.9, Monocytes # (Auto) 0.4, Eosinophils # (Auto) 0.1, Basophils # (Auto) 0.0, Immature Granulocyte # (Auto) 0.0, Erythrocyte Sedimentation Rate 28, Prothrombin Time 13.6, INR Comment 1.0, Activated Partial Thromboplast Time 29, D-Dimer 1.00H, Sodium Level 140, Potassium Level 3.5L, Chloride Level 107, Carbon Dioxide Level 23, Anion Gap 10, Blood Urea Nitrogen 20H, Creatinine 1.14, Estimat Glomerular Filtration Rate 47, BUN/Creatinine Ratio 18, Glucose Level 291H, Lactic Acid Level 1.49, Calcium Level 8.9, Corrected Calcium 9.1, Magnesium Level 1.9, Total Bilirubin 0.4, Aspartate Amino Transf (AST/SGOT) 16, Alanine Aminotransferase (ALT/SGPT) 11, Alkaline Phosphatase 71, Total Creatine Kinase 615H, Creatine Kinase MB 2.1, Myoglobin 72.2, Troponin I 0.033H, C- Reactive Protein High Sensitivity 0.28, B-Type Natriuretic Peptide 192.2H, Total Protein 6.8, Albumin 3.7, TSH [place] Testing 3.16 03/18/23 22:22: Influenza Type A (RT-PCR) Not Detected, Influenza Type B (RT-PCR) Not Detected, SARS-CoV-2 RNA (RT-PCR) Not Detected 03/18/23 22:23: Glucometer 263H 03/18/23 22:34: Urine Color YELLOW, Urine Clarity CLEAR, Urine pH 5.5, Urine Specific [place] >=1.030, Urine Protein 1+H, Urine Glucose (UA) NEGATIVE, Urine Ketones NEGATIVE, Urine Nitrite NEGATIVE, Urine Bilirubin 1+H, Urine Urobilinogen 0.2, Urine Leukocyte Esterase NEGATIVE, Urine RBC (Auto) NEGATIVE, Urine RBC 0-2, Urine WBC 0-2, Urine Squamous Epithelial Cells 10-25H, Urine Crystals PRESENTH, Urine Amorphous Sediment MOD XIOMARA URATESH, Urine Bacteria TRACE, Urine Casts PRESENT, Urine Hyaline Casts 0-2H, Urine Mucus LARGEH, Urine Culture Indicated NO 03/19/23 01:23: Troponin I < 0.028 03/19/23 05:28: White Blood Count 7.2, Red Blood Count 4.36, Hemoglobin 12.2, Hematocrit 39, Mean Corpuscular Volume 90, Mean Corpuscular Hemoglobin 28, Mean Corpuscular Hemoglobin Concent 31L, Red Cell Distribution Width 14.2, Platelet Count 237, Mean Platelet Volume 9.7, Immature Granulocyte % (Auto) 1, Neutrophils (%) (Auto) 66, Lymphocytes (%) (Auto) 24, Monocytes (%) (Auto) 7, Eosinophils (%) (Auto) 2, Basophils (%) (Auto) 1, Neutrophils # (Auto) 4.7, Lymphocytes # (Auto) 1.7, Monocytes # (Auto) 0.5, Eosinophils # (Auto) 0.2, Basophils # (Auto) 0.0, Immature Granulocyte # (Auto) 0.0, Sodium Level 142, Potassium Level 3.7, Chloride Level 109H, Carbon Dioxide Level 24, Anion Gap 9, Blood Urea Nitrogen 16, Creatinine 0.98, Estimat Glomerular Filtration Rate 57, BUN/Creatinine Ratio 16, Glucose Level 159H, Calcium Level 8.5, Corrected Calcium 9.0, Total Bilirubin 0.4, Aspartate Amino Transf (AST/SGOT) 12, Alanine Aminotransferase (ALT/SGPT) 9, Alkaline Phosphatase 65, Total Protein 6.4, Albumin 3.4, Triglycerides Level 208H, Cholesterol Level 233H, LDL Cholesterol Direct 169H, VLDL Cholesterol 42H, HDL Cholesterol 43 03/19/23 11:08: Glucometer 182H 03/19/23 16:39: Glucometer 159H 03/19/23 20:40: Glucometer 255H 03/20/23 05:40: White Blood Count 8.5, Red Blood Count 4.44, Hemoglobin 12.4, Hematocrit 40, Mean Corpuscular Volume 89, Mean Corpuscular Hemoglobin 28, Mean Corpuscular Hemoglobin Concent 31L, Red Cell Distribution Width 14.1, Platelet Count 215, Mean Platelet Volume 9.5, Immature Granulocyte % (Auto) 0, Neutrophils (%) (Auto) 70, Lymphocytes (%) (Auto) 21, Monocytes (%) (Auto) 6, Eosinophils (%) (Auto) 2, Basophils (%) (Auto) 0, Neutrophils # (Auto) 6.0, Lymphocytes # (Auto) 1.8, Monocytes # (Auto) 0.5, Eosinophils # (Auto) 0.2, Basophils # (Auto) 0.0, Immature Granulocyte # (Auto) 0.0, Sodium Level 136, Potassium Level 4.0, Chloride Level 108H, Carbon Dioxide Level 19L, Anion Gap 9, Blood Urea Nitrogen 12, Creatinine 0.87, Estimat Glomerular Filtration Rate 65, BUN/Creatinine Ratio 14, Glucose Level 236H, Calcium Level 8.3L, Corrected Calcium 8.9, Total Bilirubin 0.4, Aspartate Amino Transf (AST/SGOT) 14, Alanine Aminotransferase (ALT/SGPT) 11, Alkaline Phosphatase 68, Total Protein 6.0L, Albumin 3.2 03/20/23 10:50: Glucometer 105 03/20/23 16:22: Glucometer 215H 03/20/23 21:06: Glucometer 139H 03/21/23 05:35: White Blood Count 9.0, Red Blood Count 4.27, Hemoglobin 12.2, Hematocrit 38, Mean Corpuscular Volume 88, Mean Corpuscular Hemoglobin 29, Mean Corpuscular Hemoglobin Concent 32, Red Cell Distribution Width 14.2, Platelet Count 234, Mean Platelet Volume 9.8, Immature Granulocyte % (Auto) 0, Neutrophils (%) (Auto) 71, Lymphocytes (%) (Auto) 21, Monocytes (%) (Auto) 6, Eosinophils (%) (Auto) 2, Basophils (%) (Auto) 0, Neutrophils # (Auto) 6.4, Lymphocytes # (Auto) 1.9, Monocytes # (Auto) 0.5, Eosinophils # (Auto) 0.2, Basophils # (Auto) 0.0, Immature Granulocyte # (Auto) 0.0, Sodium Level 140, Potassium Level 4.0, Chloride Level 109H, Carbon Dioxide Level 22, Anion Gap 9, Blood Urea Nitrogen 11, Creatinine 0.86, Estimat Glomerular Filtration Rate 66, BUN/Creatinine Ratio 13, Glucose Level 141H, Calcium Level 8.6, Corrected Calcium 9.2, Total Bilirubin 0.6, Aspartate Amino Transf (AST/SGOT) 11, Alanine Aminotransferase (ALT/SGPT) 9, Alkaline Phosphatase 72, Total Protein 6.3L, Albumin 3.3 Pending Labs Laboratory Tests 03/18/23 22:14: White Blood Count 7.8, Red Blood Count 4.31, Hemoglobin 12.3, Hematocrit 39, Mean Corpuscular Volume 90, Mean Corpuscular Hemoglobin 29, Mean Corpuscular Hemoglobin Concent 32, Red Cell Distribution Width 14.0, Platelet Count 243, Mean Platelet Volume 9.9, Immature Granulocyte % (Auto) 1, Neutrophils (%) (Auto) 68, Lymphocytes (%) (Auto) 24, Monocytes (%) (Auto) 5, Eosinophils (%) (Auto) 2, Basophils (%) (Auto) 1, Neutrophils # (Auto) 5.3, Lymphocytes # (Auto) 1.9, Monocytes # (Auto) 0.4, Eosinophils # (Auto) 0.1, Basophils # (Auto) 0.0, Immature Granulocyte # (Auto) 0.0, Erythrocyte Sedimentation Rate 28, Prothrombin Time 13.6, INR Comment 1.0, Activated Partial Thromboplast Time 29, D-Dimer 1.00, Sodium Level 140, Potassium Level 3.5, Chloride Level 107, Carbon Dioxide Level 23, Anion Gap 10, Blood Urea Nitrogen 20, Creatinine 1.14, Estimat Glomerular Filtration Rate 47, BUN/Creatinine Ratio 18, Glucose Level 291, Lactic Acid Level 1.49, Calcium Level 8.9, Corrected Calcium 9.1, Magnesium Level 1.9, Total Bilirubin 0.4, Aspartate Amino Transf (AST/SGOT) 16, Alanine Aminotransferase (ALT/SGPT) 11, Alkaline Phosphatase 71, Total Creatine Kinase 615, Creatine Kinase MB 2.1, Myoglobin 72.2, Troponin I 0.033, C-Reactive Protein High Sensitivity 0.28, B-Type Natriuretic Peptide 192.2, Total Protein 6.8, Albumin 3.7, TSH [place] Testing 3.16 03/18/23 22:22: Influenza Type A (RT-PCR) Not Detected, Influenza Type B (RT-PCR) Not Detected, SARS-CoV-2 RNA (RT-PCR) Not Detected 03/18/23 22:23: Glucometer 263 03/18/23 22:34: Urine Color YELLOW, Urine Clarity CLEAR, Urine pH 5.5, Urine Specific [place] >=1.030, Urine Protein 1+, Urine Glucose (UA) NEGATIVE, Urine Ketones NEGATIVE, Urine Nitrite NEGATIVE, Urine Bilirubin 1+, Urine Urobilinogen 0.2, Urine Leukocyte Esterase NEGATIVE, Urine RBC (Auto) NEGATIVE, Urine RBC 0-2, Urine WBC 0-2, Urine Squamous Epithelial Cells 10-25, Urine Crystals PRESENT, Urine Amorphous Sediment MOD XI[place]ARA URATES, Urine Bacteria TRACE, Urine Casts PRESENT, Urine Hyaline Casts 0-2, Urine Mucus LARGE, Urine Culture Indicated NO 03/19/23 01:23: Troponin I < 0.028 03/19/23 05:28: White Blood Count 7.2, Red Blood Count 4.36, Hemoglobin 12.2, Hematocrit 39, Mean Corpuscular Volume 90, Mean Corpuscular Hemoglobin 28, Mean Corpuscular Hemoglobin Concent 31, Red Cell Distribution Width 14.2, Platelet Count 237, Mean Platelet Volume 9.7, Immature Granulocyte % (Auto) 1, Neutrophils (%) (Auto) 66, Lymphocytes (%) (Auto) 24, Monocytes (%) (Auto) 7, Eosinophils (%) (Auto) 2, Basophils (%) (Auto) 1, Neutrophils # (Auto) 4.7, Lymphocytes # (Auto) 1.7, Monocytes # (Auto) 0.5, Eosinophils # (Auto) 0.2, Basophils # (Auto) 0.0, Immature Granulocyte # (Auto) 0.0, Sodium Level 142, Potassium Level 3.7, Chloride Level 109, Carbon Dioxide Level 24, Anion Gap 9, Blood Urea Nitrogen 16, Creatinine 0.98, Estimat Glomerular Filtration Rate 57, BUN/Creatinine Ratio 16, Glucose Level 159, Calcium Level 8.5, Corrected Calcium 9.0, Total Bilirubin 0.4, Aspartate Amino Transf (AST/SGOT) 12, Alanine Aminotransferase (ALT/SGPT) 9, Alkaline Phosphatase 65, Total Protein 6.4, Albumin 3.4, Triglycerides Level 208, Cholesterol Level 233, LDL Cholesterol Direct 169, VLDL Cholesterol 42, HDL Cholesterol 43 03/19/23 11:08: Glucometer 182 03/19/23 16:39: Glucometer 159 03/19/23 20:40: Glucometer 255 03/20/23 05:40: White Blood Count 8.5, Red Blood Count 4.44, Hemoglobin 12.4, Hematocrit 40, Mean Corpuscular Volume 89, Mean Corpuscular Hemoglobin 28, Mean Corpuscular Hemoglobin Concent 31, Red Cell Distribution Width 14.1, Platelet Count 215, Mean Platelet Volume 9.5, Immature Granulocyte % (Auto) 0, Neutrophils (%) (Auto) 70, Lymphocytes (%) (Auto) 21, Monocytes (%) (Auto) 6, Eosinophils (%) (Auto) 2, Basophils (%) (Auto) 0, Neutrophils # (Auto) 6.0, Lymphocytes # (Auto) 1.8, Monocytes # (Auto) 0.5, Eosinophils # (Auto) 0.2, Basophils # (Auto) 0.0, Immature Granulocyte # (Auto) 0.0, Sodium Level 136, Potassium Level 4.0, Chloride Level 108, Carbon Dioxide Level 19, Anion Gap 9, Blood Urea Nitrogen 12 , Creatinine 0.87, Estimat Glomerular Filtration Rate 65, BUN/Creatinine Ratio 14, Glucose Level 236, Calcium Level 8.3, Corrected Calcium 8.9, Total Bilirubin 0.4, Aspartate Amino Transf (AST/SGOT) 14, Alanine Aminotransferase (ALT/SGPT) 11, Alkaline Phosphatase 68, Total Protein 6.0, Albumin 3.2 03/20/23 10:50: Glucometer 105 03/20/23 16:22: Glucometer 215 03/20/23 21:06: Glucometer 139 03/21/23 05:35: White Blood Count 9.0, Red Blood Count 4.27, Hemoglobin 12.2, Hematocrit 38, Mean Corpuscular Volume 88, Mean Corpuscular Hemoglobin 29, Mean Corpuscular H emoglobin Concent 32, Red Cell Distribution Width 14.2, Platelet Count 234, Mean Platelet Volume 9.8, Immature Granulocyte % (Auto) 0, Neutrophils (%) (Auto) 71, Lymphocytes (%) (Auto) 21, Monocytes (%) (Auto) 6, Eosinophils (%) (Auto) 2, Basophils (%) (Auto) 0, Neutrophils # (Auto) 6.4, Lymphocytes # (Auto) 1.9, Monocytes # (Auto) 0.5, Eosinophils # (Auto) 0.2, Basophils # (Auto) 0.0, Immature Granulocyte # (Auto) 0.0, Sodium Level 140, Potassium Level 4.0, Chloride Level 109, Carbon Dioxide Level 22, Anion Gap 9, Blood Urea Nitrogen 11, Creatinine 0.86, Estimat Glomerular Filtration Rate 66, BUN/Creatinine Ratio 13, Glucose Level 141, Calcium Level 8.6, Corrected Calcium 9.2, Total Bilirubin 0.6, Aspartate Amino Transf (AST/SGOT) 11, Alanine Aminotransferase (ALT/SGPT) 9, Alkaline Phosphatase 72, Total Protein 6.3, Albumin 3.3 Discharge Home Medications: Active Scripts Active Reported Losartan Potassium 50 Mg Tablet 50 Mg PO DAILY Levemir Flexpen (Insulin Detemir) 100 Unit/Ml (3 Ml) Insuln.pen 15 Unit SQ BID Clopidogrel (Clopidogrel Bisulfate) 75 Mg Tablet 75 Mg PO DAILY LAST FILLED 09-18-2022 #90/90 DAY SUPPLY Quetiapine Fumarate 50 Mg Tablet 75 Mg PO HS TAKES 1 & (50MG) TABS LAST FILLED 07-14-2022 #135/90 DAY SUPPLY Levothyroxine Sodium 75 Mcg Tablet 75 Mcg PO DAILY LAST FILLED 07-14-2022 #90/90 DAY SUPPLY Bydureon Bcise (Exenatide Microspheres) 2 Mg/0.85 Ml Auto.injct 2 Mg INJ WEEK Alendronate Sodium 70 Mg Tablet 70 Mg PO WEEK LAST FILLED 09-18-2022 #12/84 DAY SUPPLY Amlodipine Besylate 10 Mg Tablet 10 Mg PO DAILY LAST FILLED 09-18-2022 #90/90 DAY SUPPLY Glipizide 5 Mg Tablet 5 Mg PO DAILY Buspirone HCl 10 Mg Tablet 10 Mg PO BID LAST FILLED 09-18-2022 #180/90 DAY SUPPLY Donepezil HCl 5 Mg Tablet 5 Mg PO HS Atorvastatin Calcium 20 Mg Tablet 20 Mg PO DAILY Aspirin 81 Mg Tab.chew 81 Mg PO DAILY Levetiracetam 500 Mg Tablet 500 Mg PO BID LAST FILLED 07-14-2022 #180/90 DAY SUPPLY Sertraline HCl 100 Mg Tablet 150 Mg PO DAILY TAKES 1 & (100MG) TABS LAST FILLED 09-18-2022 #135/90 DAY SUPPLY Instructions to patient/family Please see electronic discharge instructions given to patient. Clinical Quality Measures Urinary Catheter-Non SCIP Pts: Reason for Catheter Continuanc: Accurate I&O ERUM SANTANA DO Mar 21, 2023 06:56
[2023-03-21 07:51] VITALS: BP 148/77
[2023-03-21] MEDS: CLOPIDOGREL 75 MG TABLET PO SCH (08:55)
[2023-03-21] MEDS: ASPIRIN enteric coated 81MG TABLET PO SCH (08:55)
[2023-03-21] MEDS: SENNOSIDES 8.6 MG TABLET PO SCH (08:56)
[2023-03-21] MEDS: amLODIPine 5 MG TABLET PO SCH (08:56)
[2023-03-21] MEDS: DOCUSATE SODIUM 100 MG CAPSULE PO SCH (08:56)
[2023-03-21 10:31] VITALS: BP 148/77
== END 2023-03-21 10:30 | DRG 310 ==
LOC: EDUNIT# 22:10 → ER 22:11 → CSD 03-19 03:59 → OBSVTOIN 03-19 12:00
PROVIDERS: ADMIT Internal Medicine; ATTEND Internal Medicine
DX: I49.8 Other specified cardiac arrhythmias (principal); E11.65 Type 2 diabetes mellitus with hyperglycemia; E86.0 Dehydration; F03.90 Unspecified dementia, unspecified severity, without behavioral disturbance, psychotic disturbance, mood disturbance, and anxiety; Z91.148 Patient's other noncompliance with medication regimen for other reason; Z20.822 Contact with and (suspected) exposure to COVID-19; Z79.82 Long term (current) use of aspirin; Z79.4 Long term (current) use of insulin; Z79.899 Other long term (current) drug therapy; I11.0 Hypertensive heart disease with heart failure; I50.9 Heart failure, unspecified; I25.10 Atherosclerotic heart disease of native coronary artery without angina pectoris; E78.00 Pure hypercholesterolemia, unspecified; Z95.5 Presence of coronary angioplasty implant and graft; Z86.73 Personal history of transient ischemic attack (TIA), and cerebral infarction without residual deficits; M19.90 Unspecified osteoarthritis, unspecified site; F41.9 Anxiety disorder, unspecified; F32.A Depression, unspecified; E03.9 Hypothyroidism, unspecified; Z79.890 Hormone replacement therapy; R47.81 Slurred speech; E66.9 Obesity, unspecified; Z96.652 Presence of left artificial knee joint; Z68.31 Body mass index [BMI] 31.0-31.9, adult; E11.51 Type 2 diabetes mellitus with diabetic peripheral angiopathy without gangrene; Z95.820 Peripheral vascular angioplasty status with implants and grafts
CPT/HCPCS: 36415; 51702; 70450; 70496; 70498; 71045; 80053; 80061; 81000; 82550; 82553; 82947; 83605; 83735; 83874; 83880; 84443; 84484; 85025; 85379; 85610; 85652; 85730; 86141; 87636; 93005; 93041; 93306; 93880; 94664; 94760

== ENCOUNTER 2023-03-21 10:30 | Inpatient (IN) | payer MEDICARE, OTHER ==
[~2023-03-21] VITALS: Ht 157.4 cm; Wt 77.8 kg
--- OUTSIDE RECORDS SUMMARY | 2023-03-21 11:24 | XMS REPORT | Clinical Summary ---
Author Author [facility] Organization [facility] Address Unknown Phone Unavailable Care Team Providers Care Patient Ombudsperson Name Role Phone Eleonora Mccord DO Unavailable Unavailable [facility], [facility] PCP Source Comments Some departments are not documenting in the electronic medical record. If you do not see the information that you expected, contact Release of Information in the Health Information Management department at [phone] for further assistance in locating additional records.[facility] Allergies No known active allergies Medications Medication Sig Dispensed Refills Start Date End Date Status aspirin EC 81 mg tablet Take 1 Tab by mouth daily. 90 Tab 3 10/18/2015 Active levETIRAcetam (KEPPRA) 500 mg tablet Take 1 Tab by mouth twice daily. 60 Tab 7 10/18/2015 Active atorvastatin (LIPITOR) 40 mg tablet Take 1 Tab by mouth daily. 90 Tab 3 10/18/2015 Active metoprolol XL (TOPROL XL) 50 mg tablet Take 1 Tab by mouth daily. 90 Tab 3 10/18/2015 Active dipyridamole/aspirin (AGGRENOX) 200/25 mg capsule Take 1 Cap by mouth twice daily. 180 Cap 3 10/18/2015 Active trimethoprim/sulfame thoxazole (BACTRIM DS) 160/800 mg tablet Take 1 Tab by mouth twice daily. 10 Tab 0 10/18/2015 Active insulin glargine (LANTUS SOLOSTAR) 100 unit/mL (3 mL) injection PEN Inject 15 Units into area(s) as directed at bedtime daily. 0 10/18/2015 Active insulin aspart (NOVOLOG) 100 unit/mL flexPEN Inject 0-14 Units into area(s) as directed before meals and at bedtime. Glucose 140-180mg/dL: administer 2 units insulin Glucose 181-220: 4 units Glucose 221-260: 6 units Glucose 261-300: 8 units Glucose 301-350: 10 units Glucose 351-400: 12 units Glucose >400m units 0 10/18/2015 Active Active Problems Problem Noted Date Diagnosed Date Seizure 10/18/2015 Right sided weakness 10/16/2015 Type 2 diabetes mellitus 10/16/2015 Essential hypertension 10/16/2015 Hyperlipidemia 10/16/2015 Depression 10/16/2015 Altered mental status, unspecified 10/16/2015 Stroke 10/15/2015 Surgical History Surgery Date Site/Laterality Comments KNEE ARTHROPLASTY Left HYSTERECTOMY CATARACT REMOVAL Medical History Medical History Date Comments Essential hypertension Hyperlipidemia Diabetes (HCC) Depression Social History Tobacco Use Types Packs/Day Years Used Date Smoking Tobacco: Never Smokeless Tobacco: Never Alcohol Use Standard Drinks/Week Comments No 0 (1 standard drink = 0.6 oz pur e alcohol) Sex and Gender Information Value Date Recorded Sex Assigned at Not on file Gender Identity Not on file Sexual Orientation Not on file Obstetrics History Last Filed Vital Signs Vital Sign Reading Time Taken Comments Blood Pressure 134/68 10/18/2015 8:00 AM CDT Pulse 49 10/18/2015 10:00 AM CDT Temperature 36.6 C (97.8 F) 10/18/2015 8:00 AM C DT Respiratory Rate - - Oxygen Saturation 93% 10/18/2015 8:00 AM CDT Inhaled Oxygen Concentration - - Weight 68.5 kg (151 lb) 10/16/2015 9:27 AM CDT Height 162.6 cm (5' 4") 10/16/2015 9:27 AM CDT Body Mass Index 25.92 10/16/2015 9:27 AM CDT Plan of Treatment Health Maintenance Due Date Last Done Comments MEDICARE ANNUAL WELLNESS VISIT 1935 COVID-19 VACCINE (#1) 02[birth year]24/1936 DTAP/TDAP VACCINES (1 - Tdap) 1955 PHYSICAL (COMPREHENSIVE) EXAM 1955 SHINGLES RECOMBINANT VACCINE (1 of 2) 1987 OSTEOPOROSIS SCREENING/MONITORING 2002 PNEUMOCOCCAL VACCINE 65+ YRS (1 - PCV) 2002 ADVANCED CARE PLANNING DISCUSSION AND DOCUMENTATION INFLUENZA VACCINE (#1) 2023 Advance Directives Latest Code Status on File Code Status Date Activated Date Inactivated Comments Full Code 10/16/2015 1:07 AM 10/18/2015 2:26 PM Question Answer Comments Provider has discussed Code Status w/Patient or Family? Yes Code Status History Code Status Date Activated Date Inactivated Comments Full Code 10/15/2015 6:15 PM 10/16/2015 1:07 AM Question Answer Comments Provider has discussed Code Status w/Patient or Family? No, more discussion needed Care Teams Patient Ombudsperson Relationship Specialty Start Date End Date [facility], [facility] [address] [place] [address] PCP - General 10/15/15 Eleonora Mccord DO Left [facility] 01/09/2017 Neurology 10/16/15
--- OUTSIDE RECORDS SUMMARY | 2023-03-21 11:24 | XMS REPORT ---
Author Author [facility] Organization [facility] Address Unknown Phone Unavailable Care Team Providers [facility] Name Role Phone Migration, Doctor Unavailable Unavailable PROBLEMS Type Condition ICD9-CM Code DAO95-LI Code Onset Dates Condition Status SNOMED Code Problem Other chronic pain G89.29 Active 14475 001 Problem Panic attack F41.0 Active 286486955 Problem Hypothyroidism (acquired) E03.9 Active 761709410 Problem Anxiety F41.9 Active 24595424 Problem 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 Active 137196646375 Problem Dementia with behavioral disturbance, unspecified dementia type F03.91 Active 9957868179537 Problem 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 Active 29755972 Problem Vascular dementia without behavioral disturbance F01.50 Active 497849454 Problem Type 2 diabetes mellitus with diabetic neuropathy, 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 Active 26336046 Problem 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 Active 41079909 1 Problem Bilateral hearing loss, unspecified hearing loss type H91.93 Active 69510157 Problem Diabetes E11.9 Active 332516477 Problem Falls frequently R29.6 Active 2139115 02 Problem History of cerebrovascular accident with hemiparesis or hemiplegia Z86.73 Active 160450037 Problem Type 2 diabetes mellitus with complication, without long-term current use of insulin E11.8 Active 19022174 Problem 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 Active 905691781 Problem Hypertension I10 Active 58408195 Problem SNHL (sensory-neural hearing loss), 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 Active 713394108 Problem Left-sided muscle weakness M62.81 Active 313710843 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 55618607 Problem Cardiomegaly I51.7 Active 1301724 ALLERGIES No Information ENCOUNTERS Encounter Location Date Diagnosis [facility] [id number] [address] November, [facility] [id number] [place] [address] November, [facility] [address] [address] November, [facility] [id number] [place] [address] Oct, Encounter for Medicare annual wellness exam Z00.00 ; Type 2 diabetes mellitus with diabetic neuropathy, 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 ; Encounter for immunization Z23 ; 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 ; Vascular dementia without behavioral disturbance F01.50 and 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 [facility] [id number] [place] [address] Oct, [facility] [id number] [place] [address] Oct, [place] [id number] [place] [address] Sep, [facility] [id number] [place] [address] Aug, Anxiety F41.9 [place] [id number] [place] [address] Aug, Encounter for immunization Z23 [place] [id number] [place] [address] Jul, History of cerebrovascular accident with hemiparesis or hemiplegia Z86.73 ; Dementia with behavioral disturbance, unspecified dementia type F03.91 ; Hypothyroidism (acquired) E03.9 ; Type 2 diabetes mellitus with diabetic neuropathy, 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 and 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 [facility] [id number] [place] [address] Jul, [facility] [id number] [place] [address] Jul, Type 2 diabetes mellitus with diabetic neuropathy, 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 ; Anxiety F41.9 ; Vascular dementia without behavioral disturbance F01.50 ; 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 ; Onychomycosis of great toe B35.1 ; 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 and Type 2 diabetes mellitus with complication, without long-term current use of insulin E11.8 [place] [id number] [place] [address] Jun, Hypertension I10 ; Anxiety F41.9 ; Dementia with behavioral disturbance, unspecified dementia type F03.91 ; 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 ; 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 ; Encounter for immunization Z23 ; Skin lesion of left leg L98.9 ; BMI 28.0-28.9,adult Z68.28 and Other chronic pain G89.29 [place] [address] [address] May, Lymphadenopathy, axillary R59.0 [place] [address] [address] May, [place] [address] [address] Apr, [place] [address] [address] Apr, [place] [id number] [place] [address] Apr, [place] [id number] [place] [address] Apr, [place] [id number] [place] [address] Mar, Anxiety F41.9 ; 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 and Dementia with behavioral disturbance, unspecified dementia type F03.91 [facility] [id number] [place] [address] Mar, [facility] [address] [address] Mar, Diabetes E11.9 ; Hypothyroidism (acquired) E03.9 ; Hypertension I10 and Type 2 diabetes mellitus with diabetic neuropathy, 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 [place] [id number] [place] [address] Jan, [place] [id number] [place] [address] Dec, Anxiety F41.9 and 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 [place] [address] [address] November, [place] [address] [address] November, Chronic cough R05 and Cardiomegaly I51.[address] [address] Oct, Medicare annual wellness visit, initial Z00.00 ; 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 ; 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 ; Anxiety F41.9 ; History of cerebrovascular accident with hemiparesis or hemiplegia Z86.73 ; Vascular dementia without behavioral disturbance F01.50 ; 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 ; Hypothyroidism (acquired) E03.9 ; SNHL (sensory-neural hearing loss), 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 ; Left-sided muscle weakness M62.81 ; 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 and Encounter for immunization Z23 [place] [id number] [place] [address] Sep, [place] [id number] [place] [address] Jul, [place] [id number] [place] [address] Jul, [place] [id number] [place] [address] Jun, Anxiety F41.9 and 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 [place] [id number] [place] [address] Jun, Bronchitis J40 and Bilateral hearing loss, unspecified hearing loss type H91.93 [place] [address] [address] Jun, [place] [address] [address] Apr, [place] [address] [address] Apr, Encounter for immunization Z23 and Left breast mass N63.20 [place] [address] [address] 16 Apr, 2017 [place] [address] [address] 27 Mar, 2017 CVA (cerebral vascular accident) I63.9 ; Hypertension I10 ; 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 ; Type 2 diabetes mellitus with diabetic neuropathy, 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 and Left breast mass N63 [place] [id number] [place] [address] Mar, Mild episode of recurrent major depressive disorder F33.0 and Anxiety F41.9 [place] [id number] [place] [address] Mar, Breast mass, left N63 [place] [id number] [place] [address] Mar, Breast mass, left N63 [place] [id number] [place] [address] Feb, [place] [address] [address] Feb, [place] [id number] [place] [address] Feb, [place] [address] [address] Feb, [facility] [id number] [place] [address] Feb, Onychomycosis B35.1 and Type 2 diabetes mellitus with complication E11.8 [place] [id number] [place] [address] Jan, Mild episode of recurrent major depressive disorder F33.0 and Anxiety F41.9 [place] [id number] [place] [address] Jan, [place] [id number] [place] [address] Dec, Onychomycosis due to dermatophyte B35.1 ; 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 ; Type 2 diabetes mellitus with diabetic neuropathy, 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 ; Falls frequently R29.6 ; Neuropathy G62.9 ; Dementia with behavioral disturbance, unspecified dementia type F03.91 ; Hypothyroidism (acquired) E03.9 and Left hand pain M79.642 [place] [address] [place] [address] Dec, [place] [id number] [place] [address] Dec, Hypothyroidism (acquired) E03.9 [place] [id number] [place] [address] Dec, 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 [facility] [address] [address] November, Hypothyroidism (acquired) E03.9 [place] [id number] [place] [address] Oct, [place] [id number] [place] [address] Oct, 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 [place] [id number] [place] [address] Oct, [place] [address] [address] Oct, Dysuria R30.0 ; 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 ; Bilateral hearing loss, unspecified hearing loss type H91.93 and 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 [place] [id number] [place] [address] Sep, [facility] [id number] [place] [address] Sep, Open wound of right great toe, initial encounter S91.101A [place] [id number] [place] [address] Sep, Breast mass, left N63 ; Non-insulin dependent type 2 diabetes mellitus E11.9 and Vascular dementia without behavioral disturbance F01.50 [place] [id number] [place] [address] Sep, [place] [address] [address] Jul, [place] [id number] [place] [address] Jul, Diabetes E11.9 ; Diaper dermatitis L22 ; Candidiasis of skin and nail B37.2 ; Neuropathy G62.9 ; Status post stroke Z86.73 ; Unsteadiness on feet R26.81 and 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 [place] [id number] [place] [address] May, [place] [address] [address] May, [place] [id number] [place] [address] May, [place] [address] [place] [address] May, Dementia with behavioral disturbance, unspecified dementia type F03.91 [place] [id number] May, Dementia with behavioral disturbance, unspecified dementia type F03.91 ; Encounter for immunization Z23 and Diabetes E11.9 [place] [address] [address] May, [place] [address] [address] May, Neuropathy G62.9 [place] [address] [address] May, [place] [address] [address] Apr, Hypothyroidism (acquired) E03.9 [place] [address] [address] Apr, CVA (cerebral vascular accident) I63.9 ; Left hand weakness M62.81 and Neuropathy G62.9 [address] [address] [address] Apr, Hypokalemia E87.6 [place] [address] [address] Apr, Hypokalemia E87.6 [place] [address] [address] Mar, Diabetes E11.9 ; Edema, unspecified type R60.9 ; Anxiety disorder, unspecified F41.9 ; Pain in left knee M25.562 ; Other chronic pain G89.29 and Status post stroke Z86.73 [place] [address] [address] 15 Mar, 2016 [place] [address] [address] 15 Mar, 2016 [facility] [id number] [place] [address] Mar, Neuropathy G62.9 [place] [address] [address] Feb, Anorexia R63.0 and Neuropathy G62.9 [facility] [address] [address] Jan, Diabetes E11.9 ; Neuropathy G62.9 ; Panic attack F41.0 ; Pain in left knee M25.562 and Hypertension 401.9 [place] [address] [address] Jan, Weakness R53.1 ; Fatigue, unspecified type R53.83 ; Falling episodes R29.6 and Neuropathy G62.9 [place] [address] [address] Jan, Pain in left knee M25.562 [place] [address] [address] Jan, [place] [address] [address] Jan, [place] [id number] [place] [address] Jan, [place] [address] [address] Dec, Diabetes E11.9 ; Neuropathy G62.9 and Dementia F03.90 [place] [address] [address] Dec, [place] [address] [address] Dec, Neuropathy G62.9 ; Diabetes E11.9 ; Anxiety F41.9 and Constipation, unspecified constipation type K59.00 [place] [address] [address] Dec, [facility] [id number] [place] [address] Dec, Anxiety F41.9 [facility] [id number] [place] [address] November, [facility] [id number] [place] [address] November, Pain in left knee M25.562 ; Other chronic pain G89.29 ; Diabetes E11.9 and Left eye pain H57.12 [facility] [id number] [place] [address] November, [facility] [id number] [place] [address] November, Hearing loss, unspecified laterality H91.90 [facility] [id number] [place] [address] November, [facility] [id number] [place] [address] November, [facility] [id number] [place] [address] November, Pain in right knee M25.561 [facility] [id number] [place] [address] November, [facility] [id number] [place] [address] Oct, [facility] [address] [address] Oct, [facility] [address] [place] [address] Oct, Edema of left lower extremity R60.0 ; Diabetes E11.9 ; 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 I63.39 and Anxiety disorder, unspecified F41.9 [facility] [id number] [place] [address] 14 Oct, 2015 Panic attack F41.0 [place] [id number] [place] [address] 14 Oct, 2015 [place] [id number] [place] [address] 13 Oct, 2015 CVA (cerebral vascular accident) I63.9 [facility] [address] [address] 13 Oct, 2015 [place] [id number] [place] [address] 04 Oct, 2015 Diabetes E11.9 ; Hypertension I10 and Dementia F03.90 [place] [id number] [place] [address] Sep, [place] [id number] [place] [address] Sep, [place] [id number] [place] [address] Sep, Diabetes E11.9 ; 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 ; Onychomycosis B35.1 and Fatigue R53.83 [place] [address] [place] [address] Aug, [place] [id number] [place] [address] Aug, [place] [id number] [place] [address] Jul, [place] [id number] [place] [address] Jul, [place] [address] [place] [address] Jun, 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 [place] [id number] [place] [address] Jun, Anxiety disorder, unspecified F41.9 and Major depressive disorder, single episode, moderate F32.1 [facility] [id number] [place] [address] Jun, [facility] [id number] [place] [address] Jun, [facility] [id number] [place] [address] May, Left knee pain M25.562 [facility] [address] [address] May, [facility] [id number] [place] [address] May, [facility] [address] [address] May, [facility] [id number] [place] [address] May, Hypertension I10 ; Diabetes E11.9 and Depression F32.9 [facility] [id number] [place] [address] May, [facility] [id number] [place] [address] Apr, Left knee pain M25.562 ; Type 2 diabetes mellitus with complication E11.8 and Encounter for immunization Z23 [facility] [id number] [place] [address] Apr, [facility] [id number] [place] [address] Apr, [facility] [id number] [place] [address] Mar, [facility] [id number] [place] [address] Mar, 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9 and Diabetes 250.00 [facility] [address] [address] Jan, [facility] [address] [address] Jan, Diabetes 250.00 [facility] [address] [address] Jan, [facility] [address] [address] Jan, [facility] [address] [address] Dec, Diabetes 250.00 and Forgetfulness 780.99 [facility] [address] [address] Dec, [facility] [address] [address] Dec, Diabetes mellitus 250.00 [facility] [id number] [address] Dec, [facility] [address] [address] Dec, [facility] [address] [address] Dec, [facility] [address] [address] 16 Dec, 2014 Diabetes 250.00 and Dysthymia 300.4 [facility] [id number] [place] [address], [place] [address] 15 Dec, 2014 [facility] [address] [place] [address] 09 Dec, 2014 Grief 309.0 and Diabetes mellitus 250.00 [facility] [id number] [place] [address] Oct, [facility] [address] [address] Oct, [facility] [address] [address] Jul, [facility] [id number] [place] [address] Jul, [facility] [id number] [place] [address] Jul, [facility] [address] [address] Jul, [facility] [address] [address] Jul, [facility] [id number] [place] [address] May, [facility] [address] [address] May, [facility] [id number] [place] [address] Apr, [facility] [id number] [place] [address] Apr, [facility] [place] [facility] [address] [id number] [place] [address] Mar, [facility] [place] [facility] [address] [id number] [place] [address] Mar, [facility] [place] [facility] [address] [id number] [place] [address] Feb, [facility] [place] [facility] [address] [id number] [place] [address] Feb, [facility] [place] [facility] [address] [id number] [place] [address] Feb, [facility] [place] [facility] [address] [id number] [place] [address] Feb, [facility] [place] [facility] [address] [id number] [place] [address] Feb, [facility] [place] [facility] [address] [id number] [place] [address] Feb, [facility] [place] [facility] [address] [id number] [place] [address] November, [facility] [place] [facility] [address] [id number] [place] [address] November, [facility] [place] [facility] [address] [id number] [place] [address] Sep, [facility] [place] [facility] [address] [id number] [place] [address] Sep, [facility] [place] [facility] [address] [id number] [place] [address] Sep, [facility] [place] [facility] [address] [id number] [place] [address] Sep, [facility] [place] [facility] [address] [id number] [place] [address] Sep, [facility] [address] [id number] [place] [address] 14 Sep, 2013 [facility] [place] [facility] [address] [id number] [place] [address] Sep, [facility] [place] [facility] [address] [id number] [place] [place] [address] Sep, [facility] [place] [facility] [address] [id number] [place] [address] Aug, [facility] [place] [facility] [address] [id number] [place] [address] Aug, [facility] [place] [facility] [address] [id number] [place] [address] Jul, [facility] [place] [facility] [address] [id number] [place] [address] Jul, [facility] [place] [facility] [address] [id number] [place] [address] Jul, [facility] [place] [facility] [address] [id number] [place] [address] Jul, [facility] [place] [facility] [address] [id number] [place] [address] Jun, [facility] [place] [facility] [address] [id number] [place] [address] Jun, [facility] [place] [facility] [address] [id number] [place] [address] May, [facility] [place] [facility] [address] [id number] [place] [address] May, [facility] [place] [facility] [address] [id number] [place] [address] May, [facility] [place] [facility] [address] [id number] [place] [address] May, [facility] [place] [facility] [address] [id number] [place] [address] May, [facility] [address] [id number] [place] [address] May, [facility] [place] [facility] [address] [id number] [place] [address] Apr, [facility] [place] [facility] [address] [id number] [place] [address] Apr, [facility] [place] [facility] [address] [id number] [place] [address] Apr, [facility] [place] [facility] [address] [id number] [place] [address] Apr, [facility] [place] [facility] [address] [id number] [place] [address] Mar, [facility] [address] [id number] [place] [address] Mar, [facility] [place] [facility] [address] [id number] [place] [address] Jan, [facility] [place] [facility] [address] [id number] [place] [address] Jan, [facility] [place] [facility] [address] [id number] [place] [address] Jan, [facility] [place] [facility] [address] [id number] [place] [address] November, [facility] [place] [facility] [address] [id number] [place] [address] November, [facility] [place] [facility] [address] [id number] [place] [address] November, [facility] [place] [facility] [address] [id number] [place] [address] November, [facility] [place] [facility] [address] [id number] [place] [address] Aug, [facility] [place] [facility] [address] [id number] [place] [address] Jul, [facility] [place] [facility] [address] [id number] [place] [address] Jul, [facility] [place] [facility] [address] [id number] [place] [address] 08 Jul, 2012 [facility] [place] [facility] [address] [id number] [place] [address] Jun, [facility] [place] [facility] [address] [id number] [place] [address] Jun, [facility] [place] [facility] [address] [id number] [place] [address] May, [facility] [place] [facility] [address] [id number] [place] [address] May, [facility] [place] [facility] [address] [id number] [place] [address] Apr, [facility] [place] [facility] [address] [id number] [place] [address] Apr, [facility] [place] [facility] [address] [id number] [place] [address] Apr, [facility] [place] [facility] [address] [id number] [place] [address] Apr, [facility] [place] [facility] [address] [id number] [place] [address] Apr, [facility] [place] [facility] [address] [id number] [place] [address] Apr, [facility] [place] [facility] [address] [id number] [place] [address] Apr, [facility] [place] [facility] [address] [id number] [place] [address] Apr, [facility] [place] [facility] [address] [id number] [place] [address] Apr, [facility] [place] [facility] [address] [id number] [place] [address] Mar, [facility] [place] [facility] [address] [id number] [place] [address] Feb, [facility] [place] [facility] [address] [id number] [place] [address] November, [facility] [place] [facility] [address] [id number] [place] [address] November, [facility] [place] [facility] [address] [id number] [place] [address] November, [facility] [place] [facility] [address] [id number] [place] [address] November, [facility] [place] [facility] [address] [id number] [place] [address] Jun, [facility] [place] [facility] [address] [id number] [place] [address] Jun, [facility] [place] [facility] [address] [id number] [place] [address] May, [facility] [place] [facility] [address] [id number] [place] [address] May, [facility] [place] [facility] [address] [id number] [place] [address] Apr, [facility] [place] [facility] [address] [id number] [place] [address] Apr, [facility] [place] [facility] [address] [id number] [place] [address] May, [facility] [place] [facility] [address] [id number] [place] [address] Apr, [facility] [place] [facility] [address] [id number] [place] [address] Apr, [facility] [place] [facility] [address] [facility] [id number] [place] [address] Apr, [facility] [address] [facility] [id number] [place] [address] Apr, IMMUNIZATIONS No Known Immunizations SOCIAL HISTORY Never Assessed REASON FOR VISIT [facility] [place] PLAN OF CARE VITAL SIGNS MEDICATIONS Unknown Medications RESULTS No Results PROCEDURES No Known procedures INSTRUCTIONS MEDICATIONS ADMINISTERED No Known Medications MEDICAL (GENERAL) HISTORY Type Description Date Medical History hypertension Medical History anxiety Medical History type II diabetes Medical History History of arthroplasty of left knee Medical History Unspecified intracranial hemorrh age Medical History Other dyspnea and respiratory ab normalities Medical History Need for prophylacti c vaccination and inoculation, Influenza Medical History Adjustment disorder with depress ed mood Medical History Other specified cardiac dysrhyth mias Medical History hypothyroidism Medical History Cervical cancer Surgical History Cardiac Stents x 3 Surgical History cortisone injection in left kne e Surgical History left knee replacement Surgical History hysterectomy Surgical 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
--- OUTSIDE RECORDS SUMMARY | 2023-03-21 11:24 | XMS REPORT ---
Author Author Lady GOLDMAN Organization [facility] Address [address] [place] [address] Care Team Providers [facility] Coordinator Name Role Phone JUNE GOLDMAN Unavailable PROBLEMS Type Condition ICD9-CM Code EGE73-[place] Code Onset Dates Condition Status SNOMED Code Problem Hearing loss of aging, bilateral H91.13 Active 37408904 Problem History of arthroplasty of left knee Z96.652 Active 812747617 Problem Eye exam abnormal R93.8 Active 681814 009 Problem History of cerebrovascular accident with hemiparesis or hemiplegia Z86.73 Active 646586193 Problem CVA (cerebral vascular accident) I63.9 Active 122269547 Problem Hypertension I10 Active 50958804 Problem Major depressive disorder, single episode, moderate F32.1 Active 846393231 Problem Dementia F03.90 Active 26753549 Problem Panic attack F41.0 Active 726154344 Problem Vascular dementia without behavioral disturbance F01.50 Active 288824195 Problem Pain in left knee M25.562 Active 026986 03 Problem Non-insulin dependent type 2 diabetes mellitus E11.9 Active 36097241 Problem Other chronic pain G89.29 Active 68027 001 Problem 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 Active 43187835 Problem Diabetes E11.9 Active 696202533 Problem 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 Active 452914675 Problem Mild episode of recurrent major depressive disorder F33.0 Active 32418230 0 Problem Type 2 diabetes mellitus with complication E11.8 Active 99446907 Problem Neuropathy G62.9 Active 412820021 Problem Constipation, unspecified constipation type K59.00 Active 33342797 Problem Anxiety F41.9 Active 52009516 Problem Type 2 diabetes mellitus without complications E11.9 Active 96275559 Problem Falls frequently R29.6 Active 7464343 02 Problem 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 Active 63204202 1 Problem Type 2 diabetes mellitus with diabetic neuropathy, 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 Active 50780549 Problem Fatigue, unspecified type R53.83 Active 21201656 Problem Left hand weakness M62.81 Active 48137 3006 Problem Weakness R53.1 Active 66067211 Problem Falling episodes R29.6 Active 7821792 04 Problem 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 Active 738554382422 Problem Unsteadiness on feet R26.81 Active 74822102 Problem Hypothyroidism (acquired) E03.9 Active 094864986 Problem Dementia with behavioral disturbance, unspecified dementia type F03.91 Active [id number] ALLERGIES Unknown Allergies SOCIAL HISTORY No smoking Hx information available PLAN OF CARE VITAL SIGNS MEDICATIONS Unknown Medications RESULTS No Results PROCEDURES No Known procedures IMMUNIZATIONS No Known Immunizations
--- OUTSIDE RECORDS SUMMARY | 2023-03-21 11:24 | XMS REPORT ---
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 86933576 Problem Bilateral hearing loss, unspecified hearing loss type H91.93 Active 15297064 Problem 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 Active 01718308 1 Problem Left-sided muscle weakness M62.81 Active 423835879 Problem SNHL (sensory-neural hearing loss), 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 Active 755169417 Problem Panic attack F41.0 Active 137730013 Problem Other chronic pain G89.29 Active 65043 001 Problem History of cerebrovascular accident with hemiparesis or hemiplegia Z86.73 Active 669165887 Problem Hypertension I10 Active 41408829 Problem Dementia with behavioral disturbance, unspecified dementia type F03.91 Active 4675335001892 Problem 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 Active 424972323436 Problem Anxiety F41.9 Active 62819465 Problem Vascular dementia without behavioral disturbance F01.50 Active 894839003 Problem Hypothyroidism (acquired) E03.9 Active 060887602 Problem 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 Active 15287501 ALLERGIES No Information ENCOUNTERS Encounter Location Date Diagnosis [facility] [address] [id number], [place] [address] November, Chronic cough R05 and Cardiomegaly I51.7 [facility] [id number] [place] [address] Oct, Medicare annual wellness visit, initial Z00.00 [...] seizures R56.1 and Encounter for immunization Z23 [place] [address] [address] Sep, [place] [address] [address] Jul, [place] [address] [address] Jul, [place] [address] [address] Jun, Anxiety F41.9 and 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 [place] [address] [address] Jun, Bronchitis J40 and Bilateral hearing loss, unspecified hearing loss type H91.93 [place] [address] [address] Jun, [place] [address] [address] Apr, [place] [address] [address] Apr, Encounter for immunization Z23 and Left breast mass N63.20 [place] [address] [address] Apr, [place] [address] [address] Mar, CVA (cerebral vascular accident) I63.9 ; Hypertension I10 ; 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 ; Type 2 diabetes mellitus with diabetic neuropathy, 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 and Left breast mass N63 [facility] [address] [place] [address] Mar, Mild episode of recurrent major depressive disorder F33.0 and Anxiety F41.9 [facility] [address] [place] [address] Mar, Breast mass, left N63 [facility] [id number] [place] [address] Mar, Breast mass, left N63 [facility] [address] [place] [address] Feb, [facility] [id number] [place] [address] Feb, [facility] [address] [place] [address] Feb, [facility] [id number] [place] [address] Feb, [facility] [address] [place] [address] Feb, Onychomycosis B35.1 and Type 2 diabetes mellitus with complication E11.8 [facility] [address] [place] [address] Jan, Mild episode of recurrent major depressive disorder F33.0 and Anxiety F41.9 [facility] [address] [place] [address] Jan, [facility] [address] [place] [address] Dec, Onychomycosis due to dermatophyte B35.1 ; 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 ; Type 2 diabetes mellitus with diabetic neuropathy, 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 ; Falls frequently R29.6 ; Neuropathy G62.9 ; Dementia with behavioral disturbance, unspecified dementia type F03.91 ; Hypothyroidism (acquired) E03.9 and Left hand pain M79.642 [facility] [id number] [place] [address] Dec, [facility] [address] [address] Dec, Hypothyroidism (acquired) E03.9 [place] [address] [address] Dec, 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 [place] [address] [address] November, Hypothyroidism (acquired) E03.9 [place] [address] [address] Oct, [place] [address] [address] Oct, 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 [place] [id number] [place] [address] Oct, [place] [id number] [place] [address] Oct, Dysuria R30.0 ; 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 ; Bilateral hearing loss, unspecified hearing loss type H91.93 and 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 [facility] [address] [address] Sep, [facility] [address] [address] Sep, Open wound of right great toe, initial encounter S91.101A [place] [address] [address] Sep, Breast mass, left N63 ; Non-insulin dependent type 2 diabetes mellitus E11.9 and Vascular dementia without behavioral disturbance F01.50 [place] [id number] [place] [address] Sep, [place] [id number] [place] [address] Jul, [place] [address] [address] Jul, Diabetes E11.9 ; Diaper dermatitis L22 ; Candidiasis of skin and nail B37.2 ; Neuropathy G62.9 ; Status post stroke Z86.73 ; Unsteadiness on feet R26.81 and 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 [place] [id number] [place] [address] May, [place] [address] [address] May, [place] [id number] [place] [address] May, [place] [id number] [place] [address] May, Dementia with behavioral disturbance, unspecified dementia type F03.91 [place] [id number] [place] [address] May, Dementia with behavioral disturbance, unspecified dementia type F03.91 ; Encounter for immunization Z23 and Diabetes E11.9 [place] [id number] [place] [address] May, [place] [id number] [place] [address] May, Neuropathy G62.9 [place] [id number] [place] [address] May, [place] [address] [place] [address] [address] Apr, Hypothyroidism (acquired) E03.9 [place] [address] [address] Apr, CVA (cerebral vascular accident) I63.9 ; Left hand weakness M62.81 and Neuropathy G62.9 [place] [address] [address] Apr, Hypokalemia E87.6 [place] [address] [address] Apr, Hypokalemia E87.6 [place] [address] [address] Mar, Diabetes E11.9 ; Edema, unspecified type R60.9 ; Anxiety disorder, unspecified F41.9 ; Pain in left knee M25.562 ; Other chronic pain G89.29 and Status post stroke Z86.73 [place] [address] [address] Mar, [place] [address] [address] Mar, [place] [address] [address] Mar, Neuropathy G62.9 [place] [address] [address] Feb, Anorexia R63.0 and Neuropathy G62.9 [place] [address] [address] Jan, Diabetes E11.9 ; Neuropathy G62.9 ; Panic attack F41.0 ; Pain in left knee M25.562 and Hypertension 401.9 [place] [address] [address] Jan, Weakness R53.1 ; Fatigue, unspecified type R53.83 ; Falling episodes R29.6 and Neuropathy G62.9 [facility] [id number] [place] [address] Jan, Pain in left knee M25.562 [facility] [id number] [place] [address] Jan, [facility] [id number] [place] [address] Jan, [facility] [id number] [place] [address] Jan, [facility] [address] [address] Dec, Diabetes E11.9 ; Neuropathy G62.9 and Dementia F03.90 [facility] [address] [address] Dec, [facility] [address] [address] Dec, Neuropathy G62.9 ; Diabetes E11.9 ; Anxiety F41.9 and Constipation, unspecified constipation type K59.00 [place] [id number] [place] [address] Dec, [facility] [id number] [place] [address] Dec, Anxiety F41.9 [facility] [id number] [place] [address] November, [facility] [id number] [place] [address] November, Pain in left knee M25.562 ; Other chronic pain G89.29 ; Diabetes E11.9 and Left eye pain H57.12 [facility] [id number] [place] [address] November, [facility] [address] [address] November, Hearing loss, unspecified laterality H91.90 [facility] [address] [place] [address] November, [facility] [id number] [place] [address] November, [facility] [id number] [place] [address] November, Pain in right knee M25.561 [facility] [id number] [place] [address] November, [facility] [id number] [place] [address] Oct, [facility] [id number] [place] [address] Oct, [facility] [address] [place] [address] Oct, Edema of left lower extremity R60.0 ; Diabetes E11.9 ; 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 I63.39 and Anxiety disorder, unspecified F41.9 [facility] [address], [place] [address] Oct, Panic attack F41.0 [facility] [address], [place] [address] Oct, [facility] [address] [place] [address] Oct, CVA (cerebral vascular accident) I63.9 [facility] [address] [place] [address] Oct, [facility] [address] [place] [address] Oct, Diabetes E11.9 ; Hypertension I10 and Dementia F03.90 [facility] [id number], [place] [address] 30 Sep, 2015 [facility] [id number] [place] [address] Sep, [facility] [id number] [place] [address] Sep, Diabetes E11.9 ; 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 ; Onychomycosis B35.1 and Fatigue R53.83 [facility] [id number] [place] [address] Aug, [facility] [id number] [place] [address] Aug, [facility] [id number] [place] [address] Jul, [place] [id number] [place] [address] Jul, [facility] [id number] [place] [address] Jun, 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 [place] [id number] [place] [address] Jun, Anxiety disorder, unspecified F41.9 and Major depressive disorder, single episode, moderate F32.1 [place] [id number] [place] [address] Jun, [facility] [id number] [place] [address] Jun, [facility] [id number] [place] [address] 24 May, 2015 Left knee pain M25.562 [facility] [address] [place] [address] 16 May, 2015 [facility] [id number] [place] [address] May, [facility] [id number] [place] [address] May, [facility] [address] [address] May, Hypertension I10 ; Diabetes E11.9 and Depression F32.9 [facility] [address] [address] May, [facility] [address] [address] Apr, Left knee pain M25.562 ; Type 2 diabetes mellitus with complication E11.8 and Encounter for immunization Z23 [facility] [address] [address] Apr, [facility] [address] [address] Apr, [facility] [id number] [place] [address] Mar, [facility] [address] [address] Mar, Silvestre stanley 727.51 [facility] [id number] [place] [address] Mar, [facility] [id number] [place] [address] Mar, [facility] [id number] [place] [address] Mar, [facility] [address] [address] Feb, [facility] [id number] [place] [address] Feb, [facility] [address] [address] Feb, Hypertension 401.9 and Diabetes 250.00 [facility] [address], [place] [address] Jan, [facility] [id number] [place] [address] Jan, Diabetes 250.00 [facility] [id number], [place] [address] Jan, [facility] [id number] [place] [address] Jan, [facility] [id number] [place] [address] Dec, Diabetes 250.00 and Forgetfulness 780.99 [facility] [id number] [place] [address] Dec, [facility] [id number] [place] [address] Dec, Diabetes mellitus 250.00 [facility] [address], [place] [address] Dec, [facility] [id number] [place] [address] Dec, [facility] [address], [place] [address] Dec, [facility] [address] [place] [address] Dec, Diabetes 250.00 and Dysthymia 300.4 [facility] [address], [place] [address] Dec, [facility] [address] [place] [address] Dec, Grief 309.0 and Diabetes mellitus 250.00 [facility] [address], [place] [address] Oct, [facility] [place] [facility] [address] [id number] [place] [address] Oct, [facility] [place] [facility] [address] [id number] [place] [address] Jul, [facility] [place] [facility] [address] [id number] [place] [address] Jul, [facility] [place] [facility] [address] [id number] [place] [address] Jul, [facility] [place] [facility] [address] [id number] [place] [address] Jul, [facility] [place] [facility] [address] [id number] [place] [address] Jul, [facility] [place] [facility] [address] [id number] [place] [address] May, [facility] [place] [facility] [address] [id number] [place] [address] May, [facility] [place] [facility] [address] [id number] [place] [address] Apr, [facility] [place] [facility] [address] [id number] [place] [address] Apr, [facility] [place] [facility] [address] [id number] [place] [address] Mar, [facility] [place] [facility] [address] [id number], [place] [address] Mar, [facility] [place] [facility] [address] [id number] [place] [address] Feb, [facility] [place] [facility] [address] [id number] [place] [address] Feb, [facility] [place] [facility] [address] [id number] [place] [address] Feb, [facility] [place] [facility] [address] [id number] [place] [address] Feb, [facility] [place] [facility] [address] [id number] [place] [address] Feb, [facility] [place] [facility] [address] [id number] [place] [address] Feb, [facility] [place] [facility] [address] [id number] [place] [address] November, [facility] [place] [facility] [address] [id number] [place] [address] November, [facility] [place] [facility] [address] [id number] [place] [address] Sep, [facility] [place] [facility] [address] [id number] [place] [address] Sep, [facility] [place] [facility] [address] [id number] [place] [address] Sep, [facility] [place] [facility] [address] [id number] [place] [address] Sep, [facility] [place] [facility] [address] [id number] [place] [address] Sep, [facility] [place] [facility] [address] [id number] [place] [address] Sep, [facility] [place] [facility] [address] [id number] [place] [address] Sep, [facility] [place] [facility] [address] [id number] [place] [address] Sep, [facility] [place] [facility] [address] [id number] [place] [address] Aug, [facility] [place] [facility] [address] [id number] [place] [address] Aug, [facility] [place] [facility] [address] [id number] [place] [address] Jul, [facility] [place] [facility] [address] [id number] [place] [address] Jul, [facility] [place] [facility] [address] [id number] [place] [address] Jul, [facility] [place] [facility] [address] [id number] [place] [address] Jul, [facility] [place] [facility] [address] [id number] [place] [address] Jun, [facility] [place] [facility] [address] [id number] [place] [address] Jun, [facility] [place] [facility] [address] [id number] [place] [address] May, [facility] [place] [facility] [address] [id number] [place] [address] May, [facility] [place] [facility] [address] [id number] [place] [address] May, [facility] [place] [facility] [address] [id number] [place] [address] May, [facility] [place] [facility] [address] [id number] [place] [address] May, [facility] [place] [facility] [address] [id number] [place] [address] May, [facility] [place] [facility] [address] [id number] [place] [address] Apr, [facility] [place] [facility] [address] [id number] [place] [address] Apr, [facility] [place] [facility] [address] [id number] [place] [address] Apr, [facility] [place] [facility] [address] [id number] [place] [address] Apr, [facility] [place] [facility] [address] [id number] [place] [address] Mar, [facility] [address] [id number] [place] [address] Mar, [facility] [address] [id number] [place] [address] Jan, [facility] [address] [id number] [place] [address] Jan, [facility] [address] [id number] [place] [address] Jan, [facility] [address] [id number] [place] [address] November, [facility] [address] [id number] [place] [address] November, [facility] [address] [id number] [place] [address] November, [facility] [address] [id number] [place] [address] November, [facility] [address] [id number] [place] [address] Aug, [facility] [address] [id number] [place] [address] Jul, [facility] [address] [id number] [place] [address] Jul, [facility] [place] [facility] [address] [id number] [place] [address] Jul, [facility] [place] [facility] [address] [id number] [place] [address] Jun, [facility] [place] [facility] [address] [id number] [place] [address] Jun, [facility] [place] [facility] [address] [id number] [place] [address] May, [facility] [address] [id number] [place] [address] May, [facility] [place] [facility] [address] [id number] [place] [address] Apr, [facility] [place] [facility] [address] [id number] [place] [address] Apr, [facility] [place] [facility] [address] [id number] [place] [address] Apr, [facility] [place] [facility] [address] [id number] [place] [address] Apr, [facility] [place] [facility] [address] [id number] [place] [address] Apr, [facility] [place] [facility] [address] [id number] [place] [address] Apr, [facility] [place] [facility] [address] [id number] [place] [address] Apr, [facility] [place] [facility] [address] [id number] [place] [address] Apr, [facility] [place] [facility] [address] [id number] [place] [address] Apr, [facility] [place] [facility] [address] [facility] [id number] [place] [address] Mar, [facility] [place] [facility] [address] [id number] [place] [address] Feb, [facility] [place] [facility] [address] [id number] [place] [address] November, [facility] [place] [facility] [address] [id number] [place] [address] November, [facility] [place] [facility] [address] [id number] [place] [address] November, [facility] [facility] [facility] [address] [id number] [place] [address] November, [facility] [address] [facility] [id number], [place] [address] Jun, [facility] [address] [facility] [id number], [place] [address] Jun, [facility] [address] [facility] [id number], [place] [address] May, [facility] [address] [facility] [id number], [place] [address] May, [facility] [address] [facility] [id number], [place] [address] Apr, [facility] [address] [facility] [id number], [place] [address] Apr, [facility] [address] [id number], [place] [address] May, [facility] [id number], [place] [address] Apr, [facility] [id number], [place] [address] Apr, [facility] [id number], [place] [address] Apr, [facility] [id number], [place] [address] Apr, IMMUNIZATIONS No Known Immunizations SOCIAL HISTORY Never Assessed REASON FOR VISIT f/uGeovani Ram MA PLAN OF CARE Activity Details VITAL SIGNS Height 62 in 2017-04-08 Heart Rate 62 bpm 2017-04-08 Respiratory Rate 18 2017-04-08 Blood pressure systolic 130 mmHg Blood pressure diastolic 68 mmHg 2017-03 MEDICATIONS Medication Instructions Dosage Frequency Start Date End Date Duration Status Test strips Test Strips ICD10- E11.9 2 times a day test blood sugar 12h 14 Oct, 2015 Active Atorvastatin Calcium 40 mg Orally Once a day 1 tablet at bedtime 24h 90 Active Tylenol 325 MG Orally every 6 hrs 2 tablet as needed 6h Aug, Active Wheelchair - as directed Jan, Active Levetiracetam 500 MG Orally Twice a day 1 tablet 12h 90 Active Aricept 5 mg TAKE ONE TABLET BY MOUTH ONCE DAILY AT BEDTIME 30 Active Norvasc 10 MG Orally Once a day 1 tablet 24h Active MetFORMIN HCl ER 750 MG Orally 1 1 tablet with meals Feb, 90 days Active Blood Glucose Monitor System N/A test blood sugar 24h 11 Jul, 2015 Active Gabapentin 300 MG TAKE ONE CAPSULE BY MOUTH THREE TIMES DAILY 12h 30 Active Carvedilol 3.125 MG Orally 2 times a day 1 tablet 12h 30 Active Aggrenox 25-200 MG Orally Twice a day 1 capsule 12h 90 days Active Sertraline HCl 100 MG Orally Once a day 1.5 tab 24h 90 days Active Levothyroxine Sodium 50 MCG TAKE ONE TABLET BY MOUTH ON AN EMPTY STOMACH IN THE MORNING ONCE DAILY FOR 30 DAYS 30 Active Bydureon 2 MG Subcutaneous once weekly Inject 2mg 28 Active RESULTS No Results PROCEDURES Procedure Date Ordered Result Body Site [facility] VISIT ESTABLISHED PATIENT Apr 08, 2017 INSTRUCTIONS MEDICATIONS ADMINISTERED No Known Medications MEDICAL [...] Hospitalization History Post Stroke pt went to [facility] and then [facility] 10/15/15 Hospitalization History Hypotension, Wander ateral leg weakness--Via [facility] 01/15/16 Hospitalization History hypertension/chest pain 03/2017
--- OUTSIDE RECORDS SUMMARY | 2023-03-21 11:24 | XMS REPORT ---
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 Active 846675290288 Problem Dementia with behavioral disturbance, unspecified dementia type F03.91 Active [id number] Problem 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 Active 48726844 Problem Vascular dementia without behavioral disturbance F01.50 Active 977821295 Problem Type 2 diabetes mellitus with diabetic neuropathy, 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 Active 52971887 Problem 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 Active 55340739 1 Problem Bilateral hearing loss, unspecified hearing loss type H91.93 Active 02740681 Problem Diabetes E11.9 Active 203464345 Problem Falls frequently R29.6 Active 6483646 02 Problem History of cerebrovascular accident with hemiparesis or hemiplegia Z86.73 Active 103431588 Problem Type 2 diabetes mellitus with complication, without long-term current use of insulin E11.8 Active 88768428 Problem 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 Active 497515400 Problem Hypertension I10 Active 90104468 Problem SNHL (sensory-neural hearing loss), 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 Active 426417688 Problem Left-sided muscle weakness M62.81 Active 668613334 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 22212474 Problem Cardiomegaly I51.7 Active 6223404 ALLERGIES No Information ENCOUNTERS Encounter Location Date Diagnosis [facility] [address] [facility] [id number] [address] Dec, [facility] [address], [place] [address] Dec, [facility] [id number] [place] [address] Dec, [facility] [id number], [place] [address] November, Dental examination Z01.20 and Periodontitis K05.30 [facility] [id number] [place] [address] November, [facility] [id number] [place] [address] November, [facility] [id number] [place] [address] Oct, Encounter for Medicare annual wellness exam Z00.00 ; Type 2 diabetes mellitus with diabetic neuropathy, 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 ; Encounter for immunization Z23 ; 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 ; Vascular dementia without behavioral disturbance F01.50 ; 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 ; Hypertension I10 ; Other chronic pain G89.29 ; Hypothyroidism (acquired) E03.9 ; History of cerebrovascular accident with hemiparesis or hemiplegia Z86.73 ; 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 and Bilateral hearing loss, unspecified hearing loss type H91.93 [facility] [address] [address] Oct, [facility] [address] [address] Oct, [place] [address] [address] Sep, [facility] [address], [place] [address] Aug, Anxiety F41.9 [facility] [id number] [place] [address] Aug, Encounter for immunization Z23 [facility] [id number] [place] [address] Jul, History of cerebrovascular accident with hemiparesis or hemiplegia Z86.73 ; Dementia with behavioral disturbance, unspecified dementia type F03.91 ; Hypothyroidism (acquired) E03.9 ; Type 2 diabetes mellitus with diabetic neuropathy, 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 and 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 [facility] [id number] [place] [address] Jul, [facility] [id number] [place] [address] Jul, Type 2 diabetes mellitus with diabetic neuropathy, 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 ; Anxiety F41.9 ; Vascular dementia without behavioral disturbance F01.50 ; 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 ; Onychomycosis of great toe B35.1 ; 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 and Type 2 diabetes mellitus with complication, without long-term current use of insulin E11.8 [facility] [id number] [place] [address] Jun, Hypertension I10 ; Anxiety F41.9 ; Dementia with behavioral disturbance, unspecified dementia type F03.91 ; 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 ; 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 ; Encounter for immunization Z23 ; Skin lesion of left leg L98.9 ; BMI 28.0-28.9,adult Z68.28 and Other chronic pain G89.29 [place] [address] [place] [address] May, Lymphadenopathy, axillary R59.0 [place] [id number] [place] [address] May, [facility] [id number] [place] [address] Apr, [facility] [id number] [place] [address] Apr, [facility] [address], [place] [address] Apr, [facility] [id number] [place] [address] Apr, [facility] [id number] [place] [address] Mar, Anxiety F41.9 ; 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 and Dementia with behavioral disturbance, unspecified dementia type F03.91 [facility] [place] [id number] [place] [address] Mar, [facility] [id number] [place] [address] Mar, Diabetes E11.9 ; Hypothyroidism (acquired) E03.9 ; Hypertension I10 and Type 2 diabetes mellitus with diabetic neuropathy, 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 [facility] [id number] [place] [address] Jan, [facility] [id number] [place] [address] Dec, Anxiety F41.9 and 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 [facility] [id number] [place] [address] November, [facility] [place] [id number] [place] [address] November, Chronic cough R05 and Cardiomegaly I51.7 [place] [address] [place] [address] Oct, Medicare annual wellness visit, initial Z00.00 [...] seizures R56.1 and Encounter for immunization Z23 [place] [address] [address] Sep, [place] [address] [address] Jul, [place] [address] [address] Jul, [place] [address] [address] Jun, Anxiety F41.9 and 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 [place] [address] [address] Jun, Bronchitis J40 and Bilateral hearing loss, unspecified hearing loss type H91.93 [facility] [id number] [place] [address] Jun, [place] [address] [address] Apr, [facility] [id number] [place] [address] Apr, Encounter for immunization Z23 and Left breast mass N63.20 [facility] [id number] [place] [address] Apr, [facility] [id number] [place] [address] Mar, CVA (cerebral vascular accident) I63.9 ; Hypertension I10 ; 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 ; Type 2 diabetes mellitus with diabetic neuropathy, 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 and Left breast mass N63 [place] [id number] [place] [address] Mar, Mild episode of recurrent major depressive disorder F33.0 and Anxiety F41.9 [facility] [address] [place] [address] Mar, Breast mass, left N63 [facility] [id number] [place] [address] Mar, Breast mass, left N63 [facility] [id number] [place] [address] Feb, [facility] [id number] [place] [address] Feb, [place] [id number] [place] [address] Feb, [place] [id number] [place] [address] Feb, [place] [id number] [place] [address] Feb, Onychomycosis B35.1 and Type 2 diabetes mellitus with complication E11.8 [facility] [id number] [place] [address] Jan, Mild episode of recurrent major depressive disorder F33.0 and Anxiety F41.9 [place] [id number] [place] [address] Jan, [place] [id number] [place] [address] Dec, Onychomycosis due to dermatophyte B35.1 ; 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 ; Type 2 diabetes mellitus with diabetic neuropathy, 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 ; Falls frequently R29.6 ; Neuropathy G62.9 ; Dementia with behavioral disturbance, unspecified dementia type F03.91 ; Hypothyroidism (acquired) E03.9 and Left hand pain M79.642 [facility] [id number] [place] [address] Dec, [place] [id number] [place] [address] Dec, Hypothyroidism (acquired) E03.9 [facility] [id number] [place] [address] Dec, 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 [place] [id number] [place] [address] November, Hypothyroidism (acquired) E03.9 [facility] [id number] [place] [address] Oct, [place] [id number] [place] [address] Oct, 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 [id number] [place] [address] Sep, Open wound of right great toe, initial encounter S91.101A [facility] [id number] [place] [address] Sep, Breast mass, left N63 ; Non-insulin dependent type 2 diabetes mellitus E11.9 and Vascular dementia without behavioral disturbance F01.50 [facility] [id number] [place] [address] Sep, [place] [id number] [place] [address] Jul, [place] [id number] [place] [address] Jul, Diabetes E11.9 ; Diaper dermatitis L22 ; Candidiasis of skin and nail B37.2 ; Neuropathy G62.9 ; Status post stroke Z86.73 ; Unsteadiness on feet R26.81 and 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 [place] [address] [address] May, [place] [address] [address] May, [place] [address] [address] May, [place] [address] [address] May, Dementia with behavioral disturbance, unspecified dementia type F03.91 [place] [address] [address] May, Dementia with behavioral disturbance, unspecified dementia type F03.91 ; Encounter for immunization Z23 and Diabetes E11.9 [place] [address] [address] May, [place] [address] [address] May, Neuropathy G62.9 [place] [address] [address] May, [place] [address] [address] Apr, Hypothyroidism (acquired) E03.9 [place] [address] [address] Apr, CVA (cerebral vascular accident) I63.9 ; Left hand weakness M62.81 and Neuropathy G62.9 [place] [address] [address] Apr, Hypokalemia E87.6 [place] [address] [address] Apr, Hypokalemia E87.6 [place] [id number] [place] [address] Mar, Diabetes E11.9 ; Edema, unspecified type R60.9 ; Anxiety disorder, unspecified F41.9 ; Pain in left knee M25.562 ; Other chronic pain G89.29 and Status post stroke Z86.73 [place] [address] [address] Mar, [place] [address] [address] Mar, [place] [address] [address] Mar, Neuropathy G62.9 [place] [address] [address] Feb, Anorexia R63.0 and Neuropathy G62.9 [place] [address] [address] Jan, Diabetes E11.9 ; Neuropathy G62.9 ; Panic attack F41.0 ; Pain in left knee M25.562 and Hypertension 401.9 [place] [id number] [place] [address] Jan, Weakness R53.1 ; Fatigue, unspecified type R53.83 ; Falling episodes R29.6 and Neuropathy G62.9 [place] [address] [address] Jan, Pain in left knee M25.562 [place] [address] [address] Jan, [place] [address] [place] [address] Jan, [facility] [id number] [place] [address] Jan, [facility] [id number] [place] [address] Dec, Diabetes E11.9 ; Neuropathy G62.9 and Dementia F03.90 [facility] [id number] [place] [address] Dec, [facility] [id number] [place] [address] Dec, Neuropathy G62.9 ; Diabetes E11.9 ; Anxiety F41.9 and Constipation, unspecified constipation type K59.00 [facility] [id number] [place] [address] Dec, [facility] [id number] [place] [address] Dec, Anxiety F41.9 [facility] [id number] [place] [address] November, [facility] [id number] [place] [address] November, Pain in left knee M25.562 ; Other chronic pain G89.29 ; Diabetes E11.9 and Left eye pain H57.12 [facility] [id number] [place] [address] November, [facility] [id number] [place] [address] November, Hearing loss, unspecified laterality H91.90 [facility] [id number] [place] [address] November, [facility] [address] [place] [address] November, [facility] [id number] [place] [address] November, Pain in right knee M25.561 [facility] [id number] [place] [address] November, [facility] [id number] [place] [address] Oct, [facility] [address] [address] Oct, [facility] [id number] [place] [address] Oct, Edema of left lower extremity R60.0 ; Diabetes E11.9 ; 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 I63.39 and Anxiety disorder, unspecified F41.9 [place] [id number] [place] [address] Oct, Panic attack F41.0 [place] [id number] [place] [address] Oct, [place] [id number] [place] [address] Oct, CVA (cerebral vascular accident) I63.9 [place] [id number] [place] [address] Oct, [place] [id number] [place] [address] 04 Oct, 2015 Diabetes E11.9 ; Hypertension I10 and Dementia F03.90 [place] [id number] [place] [address] Sep, [place] [id number] [place] [address] Sep, [facility] [id number] [place] [address] Sep, Diabetes E11.9 ; 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 ; Onychomycosis B35.1 and Fatigue R53.83 [facility] [id number] [place] [address] Aug, [facility] [id number] [place] [address] Aug, [facility] [id number] [place] [address] Jul, [facility] [id number] [place] [address] Jul, [facility] [id number] [place] [address] Jun, 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 [place] [id number] [place] [address] Jun, Anxiety disorder, unspecified F41.9 and Major depressive disorder, single episode, moderate F32.1 [facility] [id number] [place] [address] Jun, [facility] [id number] [place] [address] Jun, [facility] [address] [place] [address] May, Left knee pain M25.562 [facility] [id number] [place] [address] May, [facility] [id number] [place] [address] May, [facility] [id number] [place] [address] May, [facility] [address] [place] [address] May, Hypertension I10 ; Diabetes E11.9 and Depression F32.9 [facility] [id number] [place] [address] May, [facility] [id number] [place] [address] Apr, Left knee pain M25.562 ; Type 2 diabetes mellitus with complication E11.8 and Encounter for immunization Z23 [facility] [id number] [place] [address] Apr, [facility] [address] [address] Apr, [facility] [id number] [place] [address] Mar, [facility] [id number] [place] [address] Mar, Silvestre stanley 727.51 [facility] [address] [address] Mar, [facility] [id number] [place] [address] Mar, [facility] [id number] [place] [address] Mar, [facility] [id number] [place] [address] Feb, [facility] [id number] [place] [address] Feb, [facility] [id number] [place] [address] Feb, Hypertension 401.9 and Diabetes 250.00 [facility] [id number] [place] [address] Jan, [facility] [id number] [place] [address] Jan, Diabetes 250.00 [facility] [id number] [place] [address] Jan, [facility] [address] [address] Jan, [facility] [address] [address] Dec, Diabetes 250.00 and Forgetfulness 780.99 [facility] [id number] [place] [address] Dec, [facility] [id number] [place] [address] Dec, Diabetes mellitus 250.00 [facility] [id number] [place] [address] Dec, [facility] [id number] [address] Dec, [facility] [id number] [place] [id number] Dec, [facility] [id number] [address] Dec, Diabetes 250.00 and Dysthymia 300.4 [facility] [id number] [address] Dec, [facility] [id number] [address] Dec, Grief 309.0 and Diabetes mellitus 250.00 [facility] [id number] [address] Oct, [facility] [id number] [address] Oct, [facility] [id number] [address] Jul, [facility] [id number] [address] Jul, [facility] [place] [facility] [address] [id number] [place] [address] Jul, [facility] [place] [facility] [address] [id number] [place] [address] Jul, [facility] [place] [facility] [address] [id number] [place] [address] Jul, [facility] [place] [facility] [address] [id number] [place] [address] May, [facility] [place] [facility] [address] [id number] [place] [address] May, [facility] [place] [facility] [address] [id number] [place] [address] Apr, [facility] [place] [facility] [address] [id number] [place] [address] Apr, [facility] [place] [facility] [address] [id number] [place] [address] Mar, [facility] [place] [facility] [address] [id number] [place] [address] Mar, [facility] [place] [facility] [address] [id number] [place] [address] Feb, [facility] [place] [facility] [address] [id number] [place] [address] Feb, [facility] [place] [facility] [address] [id number] [place] [address] Feb, [facility] [place] [facility] [address] [id number] [place] [address] Feb, [facility] [place] [facility] [address] [id number] [place] [address] Feb, [facility] [place] [facility] [address] [id number] [place] [address] Feb, [facility] [place] [facility] [address] [id number] [place] [address] November, [facility] [place] [facility] [address] [id number] [place] [address] November, [facility] [place] [facility] [address] [id number] [place] [address] Sep, [facility] [place] [facility] [address] [id number] [place] [address] Sep, [facility] [place] [facility] [address] [id number] [place] [address] Sep, [facility] [place] [facility] [address] [id number] [place] [address] Sep, [facility] [place] [facility] [address] [id number] [place] [address] Sep, [facility] [place] [facility] [address] [id number] [place] [address] Sep, [facility] [place] [facility] [address] [id number] [place] [address] Sep, [facility] [place] [facility] [address] [id number] [place] [address] Sep, [facility] [place] [facility] [address] [id number] [place] [address] Aug, [facility] [place] [facility] [address] [id number] [place] [address] Aug, [facility] [place] [facility] [address] [id number] [place] [address] Jul, [facility] [place] [facility] [address] [id number] [place] [address] Jul, [facility] [place] [facility] [address] [id number] [place] [address] Jul, [facility] [place] [facility] [address] [id number] [place] [address] Jul, [facility] [place] [facility] [address] [id number] [place] [address] Jun, [facility] [place] [facility] [address] [id number] [place] [address] Jun, [facility] [place] [facility] [address] [id number] [place] [address] May, [facility] [place] [facility] [address] [id number] [place] [address] May, [facility] [place] [facility] [address] [id number] [place] [address] May, [facility] [place] [facility] [address] [id number] [place] [address] May, [facility] [place] [facility] [address] [id number] [place] [address] May, [facility] [place] [facility] [address] [id number] [place] [address] May, [facility] [place] [facility] [address] [id number] [place] [address] Apr, [facility] [place] [facility] [address] [id number] [place] [address] Apr, [facility] [place] [facility] [address] [id number] [place] [address] Apr, [facility] [place] [facility] [address] [id number] [place] [address] Apr, [facility] [place] [facility] [address] [id number] [place] [address] Mar, [facility] [place] [facility] [address] [id number] [place] [address] Mar, [facility] [place] [facility] [address] [id number] [place] [address] Jan, [facility] [place] [facility] [address] [id number] [place] [address] Jan, [facility] [address] [id number] [place] [address] Jan, [facility] [place] [facility] [address] [id number] [place] [address] November, [facility] [place] [facility] [address] [id number] [place] [address] November, [facility] [place] [facility] [address] [id number] [place] [address] November, [facility] [place] [facility] [address] [id number] [place] [address] November, [facility] [place] [facility] [address] [id number] [place] [address] Aug, [facility] [place] [facility] [address] [id number] [place] [address] Jul, [facility] [place] [facility] [address] [id number] [place] [address] Jul, [facility] [place] [facility] [address] [id number] [place] [address] Jul, [facility] [place] [facility] [address] [id number] [place] [address] Jun, [facility] [place] [facility] [address] [id number] [place] [address] Jun, [facility] [place] [facility] [address] [id number] [address] May, [facility] [place] [facility] [address] [id number] [place] [address] May, [facility] [place] [facility] [address] [id number] [place] [address] Apr, [facility] [place] [facility] [address] [id number] [place] [address] Apr, [facility] [place] [facility] [address] [id number] [place] [address] Apr, [facility] [place] [facility] [address] [id number] [place] [address] Apr, [facility] [place] [facility] [address] [id number] [place] [address] Apr, [facility] [place] [facility] [address] [id number] [place] [address] Apr, [facility] [place] [facility] [address] [id number] [place] [address] Apr, [facility] [place] [facility] [address] [id number] [place] [address] Apr, [facility] [place] [facility] [address] [id number] [place] [address] Apr, [facility] [place] [facility] [address] [id number] [place] [address] Mar, [facility] [place] [facility] [address] [id number] [place] [address] Feb, [facility] [place] [facility] [address] [id number] [place] [address] November, [facility] [place] [facility] [address] [id number] [place] [address] November, [facility] [place] [facility] [address] [id number] [place] [address] November, [facility] [place] [facility] [address] [id number] [place] [address] November, [facility] [place] [facility] [address] [id number] [place] [address] Jun, [facility] [place] [facility] [address] [id number] [place] [address] Jun, [facility] [place] [facility] [address] [id number] [place] [address] May, [facility] [address] [id number] [address] May, [facility] [address] [id number] [address] Apr, [facility] [address] [id number] [address] Apr, [facility] [id number], [place] [address] May, [facility] [address] [id number], [place] [address] Apr, [facility] [id number], [place] [address] Apr, [facility] [id number], [place] [address] Apr, [facility] [id number], [place] [address] Apr, IMMUNIZATIONS No Known Immunizations SOCIAL HISTORY Never Assessed REASON FOR VISIT PLAN OF CARE VITAL SIGNS Height 62 in 2014-08-09 Weight 184.2 lbs 2014-08-09 Temperature 97.9 degrees Fahrenheit Heart Rate 70 bpm 2014-08-09 Respiratory Rate 18 2014-08-09 Blood pressure systolic 158 mmHg Blood pressure diastolic 88 mmHg 2014-07 MEDICATIONS Unknown Medications RESULTS No Results PROCEDURES Procedure Date Ordered Result Body Site GLYCATED HEMOGLOBIN TEST Aug 09, 2014 MICROALBUMIN, SEMIQUANT Aug 09, 2014 MICROALBUMIN, QUANTITATIVE Aug 09, 2014 INSTRUCTIONS MEDICATIONS ADMINISTERED No Known Medications MEDICAL [...] Hospitalization History Post Stroke pt went to [facility] and then [facility] 10/15/15 Hospitalization History Hypotension, Wander ateral leg weakness--[facility]ia [facility] 01/15/16 Hospitalization History hypertension/chest pain 03/2017
--- OUTSIDE RECORDS SUMMARY | 2023-03-21 11:24 | XMS REPORT ---
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 38032779 Problem Left-sided muscle weakness M62.81 Active 692503540 Problem 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 Active 20007000 1 Problem Type 2 diabetes mellitus with diabetic neuropathy, 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 Active 54923617 Problem SNHL (sensory-neural hearing loss), 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 Active 304327322 Problem Bilateral hearing loss, unspecified hearing loss type H91.93 Active 97720823 Problem Hypertension I10 Active 29098224 Problem Panic attack F41.0 Active 501649100 Problem History of cerebrovascular accident with hemiparesis or hemiplegia Z86.73 Active 897123656 Problem Hypothyroidism (acquired) E03.9 Active 624078915 Problem Dementia with behavioral disturbance, unspecified dementia type F03.91 Active 8471329660228 Problem Other chronic pain G89.29 Active 89676 001 Problem 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 Active 178983100259 Problem Anxiety F41.9 Active 83912696 Problem Vascular dementia without behavioral disturbance F01.50 Active 626523036 ALLERGIES No Information ENCOUNTERS Encounter Location Date Diagnosis [facility] [address] [facility] [id number] [place] [address] Oct, Medicare annual wellness visit, initial Z00.00 [...] seizures R56.1 and Encounter for immunization Z23 [place] [address] [address] Sep, [place] [address] [place] [id number] Jul, [place] [address] [address] Jul, [place] [address] [address] Jun, Anxiety F41.9 and 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 [place] [address] [address] Jun, Bronchitis J40 and Bilateral hearing loss, unspecified hearing loss type H91.93 [place] [address] [address] Jun, [place] [address] [address] Apr, [place] [address] [address] Apr, Encounter for immunization Z23 and Left breast mass N63.20 [place] [address] [address] Apr, [place] [address] [address] Mar, CVA (cerebral vascular accident) I63.9 ; Hypertension I10 ; 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 ; Type 2 diabetes mellitus with diabetic neuropathy, 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 and Left breast mass N63 [facility] [id number] [place] [address] Mar, Mild episode of recurrent major depressive disorder F33.0 and Anxiety F41.9 [facility] [id number] [place] [address] Mar, Breast mass, left N63 [facility] [address] [place] [id number] [place] [address] Mar, Breast mass, left N63 [facility] [address] [place] [id number] [place] [address] Feb, [facility] [address] [place] [id number] [place] [address] Feb, [facility] [address] [place] [id number] [place] [address] Feb, [facility] [address] [place] [id number] [place] [address] Feb, [facility] [address] [place] [id number] [place] [address] Feb, Onychomycosis B35.1 and Type 2 diabetes mellitus with complication E11.8 [facility] [id number] [place] [address] Jan, Mild episode of recurrent major depressive disorder F33.0 and Anxiety F41.9 [facility] [id number] [place] [address] Jan, [facility] [address] [place] [address] Dec, Onychomycosis due to dermatophyte B35.1 ; 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 ; Type 2 diabetes mellitus with diabetic neuropathy, 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 ; Falls frequently R29.6 ; Neuropathy G62.9 ; Dementia with behavioral disturbance, unspecified dementia type F03.91 ; Hypothyroidism (acquired) E03.9 and Left hand pain M79.642 [place] [address] [place] [address] Dec, [facility] [address] [place] [id number] [place] [address] Dec, Hypothyroidism (acquired) E03.9 [place] [address] [place] [id number] [place] [address] Dec, 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 [place] [address] [place] [id number] [place] [address] November, Hypothyroidism (acquired) E03.9 [place] [address] [place] [id number] [place] [address] Oct, [place] [address] [place] [id number] [place] [address] Oct, 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 [place] [address] [place] [id number] [place] [address] Oct, [place] [address] [place] [id number] [place] [address] Oct, Dysuria R30.0 ; 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 ; Bilateral hearing loss, unspecified hearing loss type H91.93 and 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 [place] [address] [place] [id number] [place] [address] Sep, [facility] [address] [place] [id number] [place] [address] Sep, Open wound of right great toe, initial encounter S91.101A [place] [address] [address] Sep, Breast mass, left N63 ; Non-insulin dependent type 2 diabetes mellitus E11.9 and Vascular dementia without behavioral disturbance F01.50 [place] [address] [place] [id number] [place] [address] Sep, [place] [address] [place] [id number] [place] [address] Jul, [place] [address] [address] Jul, Diabetes E11.9 ; Diaper dermatitis L22 ; Candidiasis of skin and nail B37.2 ; Neuropathy G62.9 ; Status post stroke Z86.73 ; Unsteadiness on feet R26.81 and 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 [place] [address] [place] [id number] [place] [address] May, [place] [address] [address] May, [place] [address] [address] May, [place] [address] [address] May, Dementia with behavioral disturbance, unspecified dementia type F03.91 [place] [address] [place] [id number] [place] [address] May, Dementia with behavioral disturbance, unspecified dementia type F03.91 ; Encounter for immunization Z23 and Diabetes E11.9 [place] [address] [place] [id number] [place] [address] May, [place] [address] [address] May, Neuropathy G62.9 [place] [address] [place] [id number] [place] [address] May, [place] [address] [address] Apr, Hypothyroidism (acquired) E03.9 [place] [address] [place] [id number] [place] [address] 18 Oct, 2016 CVA (cerebral vascular accident) I63.9 ; Left hand weakness M62.81 and Neuropathy G62.9 [place] [address] [place] [id number] [place] [address] Apr, Hypokalemia E87.6 [place] [address] [place] [id number] [place] [address] Apr, Hypokalemia E87.6 [place] [address] [address] Mar, Diabetes E11.9 ; Edema, unspecified type R60.9 ; Anxiety disorder, unspecified F41.9 ; Pain in left knee M25.562 ; Other chronic pain G89.29 and Status post stroke Z86.73 [place] [address] [place] [id number] [place] [address] 15 Mar, 2016 [place] [address] [address] Mar, [place] [address] [place] [id number] [place] [address] Mar, Neuropathy G62.9 [place] [address] [place] [id number] [place] [address] Feb, Anorexia R63.0 and Neuropathy G62.9 [place] [address] [place] [id number] [place] [address] Jan, Diabetes E11.9 ; Neuropathy G62.9 ; Panic attack F41.0 ; Pain in left knee M25.562 and Hypertension 401.9 [place] [address] [place] [id number] [place] [address] Jan, Weakness R53.1 ; Fatigue, unspecified type R53.83 ; Falling episodes R29.6 and Neuropathy G62.9 [place] [address] [place] [id number] [place] [address] Jan, Pain in left knee M25.562 [place] [address] [place] [id number] [place] [address] Jan, [facility] [address] [place] [id number] [place] [address] Jan, [facility] [address] [place] [id number] [place] [address] Jan, [facility] [address] [place] [id number] [place] [address] Dec, Diabetes E11.9 ; Neuropathy G62.9 and Dementia F03.90 [facility] [address] [place] [id number] [place] [address] Dec, [facility] [address] [place] [id number] [place] [address] Dec, Neuropathy G62.9 ; Diabetes E11.9 ; Anxiety F41.9 and Constipation, unspecified constipation type K59.00 [facility] [address] [place] [id number] [place] [address] Dec, [facility] [address] [place] [id number] [place] [address] Dec, Anxiety F41.9 [facility] [address] [place] [id number] [place] [address] November, [facility] [address] [place] [id number] [place] [address] November, Pain in left knee M25.562 ; Other chronic pain G89.29 ; Diabetes E11.9 and Left eye pain H57.12 [facility] [address] [place] [id number] [place] [address] November, [facility] [address] [place] [id number] [place] [address] November, Hearing loss, unspecified laterality H91.90 [facility] [address] [place] [id number] [place] [address] November, [facility] [address] [address] November, [facility] [address] [place] [id number] [place] [address] November, Pain in right knee M25.561 [facility] [address] [place] [address] November, [facility] [address] [place] [id number] [place] [address] Oct, [facility] [id number] [place] [address] Oct, [facility] [address] [place] [id number] [place] [address] Oct, Edema of left lower extremity R60.0 ; Diabetes E11.9 ; 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 I63.39 and Anxiety disorder, unspecified F41.9 [facility] [address] [place] [id number] [place] [address] Oct, Panic attack F41.0 [facility] [address] [place] [id number] [place] [address] Oct, [facility] [id number] [place] [address] Oct, CVA (cerebral vascular accident) I63.9 [facility] [id number] [place] [address] Oct, [facility] [address] [place] [address] Oct, Diabetes E11.9 ; Hypertension I10 and Dementia F03.90 [facility] [address] [address] Sep, [facility] [address] [place] [address] Sep, [facility] [address] [place] [id number] [place] [address] Sep, Diabetes E11.9 ; 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 ; Onychomycosis B35.1 and Fatigue R53.83 [facility] [address] [place] [id number] [place] [address] Aug, [facility] [address] [place] [id number] [place] [address] Aug, [facility] [address] [place] [id number] [place] [address] Jul, [facility] [address] [place] [id number] [place] [address] Jul, [facility] [address] [place] [id number] [place] [address] Jun, 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 [facility] [address] [place] [id number] [place] [address] Jun, Anxiety disorder, unspecified F41.9 and Major depressive disorder, single episode, moderate F32.1 [facility] [address] [place] [id number] [place] [address] Jun, [facility] [address] [place] [id number] [place] [address] Jun, [facility] [address] [place] [id number] [place] [address] May, Left knee pain M25.562 [facility] [address] [place] [id number] [place] [address] May, [facility] [address] [place] [id number] [place] [address] May, [facility] [address] [place] [id number] [place] [address] May, [facility] [address] [place] [id number] [place] [address] May, Hypertension I10 ; Diabetes E11.9 and Depression F32.9 [facility] [address] [place] [id number] [place] [address] May, [facility] [address] [place] [id number] [place] [address] Apr, Left knee pain M25.562 ; Type 2 diabetes mellitus with complication E11.8 and Encounter for immunization Z23 [facility] [address] [place] [id number] [place] [address] Apr, [facility] [address] [place] [id number] [place] [address] Apr, [facility] [address] [place] [id number] [place] [address] Mar, [facility] [address] [place] [id number] [place] [address] Mar, Silvestre stanley 727.51 [facility] [address] [place] [id number] [place] [address] Mar, [facility] [address] [place] [id number] [place] [address] Mar, [facility] [address] [place] [id number] [place] [address] Mar, [facility] [address] [place] [id number] [place] [address] Feb, [facility] [address] [place] [id number] [place] [address] Feb, [facility] [address] [place] [id number] [place] [address] Feb, Hypertension 401.9 and Diabetes 250.00 [facility] [address] [place] [address] Jan, [facility] [address] [place] [id number] [place] [address] [place] [address] Jan, Diabetes 250.00 [facility] [address], [place] [address] 14 Jan, 2015 [facility] [address] [place] [address] [address] Jan, [facility] [address] [place] [address] Dec, Diabetes 250.00 and Forgetfulness 780.99 [facility] [address] [place] [id number] [place] [address] Dec, [facility] [address] [place] [id number] [place] [address] Dec, Diabetes mellitus 250.00 [facility] [address] [place] [address] [address] Dec, [facility] [address] [place] [address] Dec, [facility] [address], [place] [address] Dec, [facility] [address] [place] [address] Dec, Diabetes 250.00 and Dysthymia 300.4 [facility] [address], [place] [address] Dec, [facility] [address], [place] [address] Dec, Grief 309.0 and Diabetes mellitus 250.00 [facility] [address], [place] [address] Oct, [facility] [address] [address] Oct, [facility] [address] [place] [address] Jul, [facility] [place] [facility] [address] [id number] [place] [address] Jul, [facility] [place] [facility] [address] [id number] [place] [address] Jul, [facility] [place] [facility] [address] [id number] [place] [address] Jul, [facility] [place] [facility] [address] [id number] [place] [address] Jul, [facility] [place] [facility] [address] [id number] [place] [address] May, [facility] [place] [facility] [address] [id number] [place] [address] May, [facility] [place] [facility] [address] [id number] [place] [address] Apr, [facility] [place] [facility] [address] [id number] [place] [address] Apr, [facility] [place] [facility] [address] [id number] [place] [address] Mar, [facility] [place] [facility] [address] [id number] [place] [address] Mar, [facility] [place] [facility] [address] [id number] [place] [address] Feb, [facility] [place] [facility] [address] [id number] [place] [address] Feb, [facility] [place] [facility] [address] [id number] [place] [address] Feb, [facility] [place] [facility] [address] [id number] [place] [address] Feb, [facility] [place] [facility] [address] [id number] [place] [address] Feb, [facility] [place] [facility] [address] [id number] [place] [address] Feb, [facility] [place] [facility] [address] [id number] [place] [address] November, [facility] [place] [facility] [address] [id number] [place] [address] November, [facility] [place] [facility] [address] [id number] [place] [address] Sep, [facility] [place] [facility] [address] [id number] [place] [address] Sep, [facility] [place] [facility] [address] [id number] [place] [address] Sep, [facility] [place] [facility] [address] [id number] [place] [address] Sep, [facility] [place] [facility] [address] [id number] [place] [address] Sep, [facility] [place] [facility] [address] [id number] [place] [address] Sep, [facility] [place] [facility] [address] [id number] [place] [address] Sep, [facility] [place] [facility] [address] [id number] [place] [address] Sep, [facility] [place] [facility] [address] [id number] [place] [address] Aug, [facility] [place] [facility] [address] [id number] [place] [address] Aug, [facility] [place] [facility] [address] [id number] [place] [address] Jul, [facility] [place] [facility] [address] [id number] [place] [address] Jul, [facility] [place] [facility] [address] [id number] [place] [address] Jul, [facility] [place] [facility] [address] [id number] [place] [address] Jul, [facility] [place] [facility] [address] [id number] [place] [address] Jun, [facility] [place] [facility] [address] [id number] [place] [address] Jun, [facility] [place] [facility] [address] [id number] [place] [address] May, [facility] [place] [facility] [address] [id number] [place] [address] May, [facility] [place] [facility] [address] [id number] [place] [address] May, [facility] [place] [facility] [address] [id number] [place] [address] May, [facility] [place] [facility] [address] [id number] [place] [address] May, [facility] [place] [facility] [address] [id number] [place] [address] May, [facility] [place] [facility] [address] [id number] [place] [address] Apr, [facility] [place] [facility] [address] [id number] [place] [address] Apr, [facility] [place] [facility] [address] [id number], [place] [address] 16 Apr, 2013 [facility] [place] [facility] [address] [id number] [place] [address] Apr, [facility] [place] [facility] [address] [id number] [place] [address] Mar, [facility] [place] [facility] [address] [id number] [place] [address] 27 Mar, 2013 [facility] [place] [facility] [address] [id number] [place] [address] Jan, [facility] [address] [id number] [place] [address] Jan, [facility] [place] [facility] [address] [id number] [place] [address] Jan, [facility] [address] [id number] [place] [address] November, [facility] [place] [facility] [address] [id number] [place] [address] November, [facility] [address] [id number] [place] [address] November, [facility] [place] [facility] [address] [id number] [place] [address] November, [facility] [address] [id number] [place] [address] Aug, [facility] [place] [facility] [address] [id number] [place] [address] Jul, [facility] [address] [id number] [place] [address] Jul, [facility] [place] [facility] [address] [id number] [place] [address] Jul, [facility] [address] [id number] [place] [address] Jun, [facility] [place] [facility] [address] [id number] [place] [address] Jun, [facility] [place] [facility] [address] [id number] [place] [address] May, [facility] [place] [facility] [address] [id number] [place] [address] May, [facility] [place] [facility] [address] [id number] [place] [address] Apr, [facility] [place] [facility] [address] [id number] [place] [address] Apr, [facility] [place] [facility] [address] [id number] [place] [address] Apr, [facility] [place] [facility] [address] [id number] [place] [address] Apr, [facility] [place] [facility] [address] [id number] [place] [address] Apr, [facility] [place] [facility] [address] [id number] [place] [address] Apr, [facility] [place] [facility] [address] [id number] [place] [address] Apr, [facility] [place] [facility] [address] [id number] [place] [address] Apr, [facility] [place] [facility] [address] [id number] [place] [address] Apr, [facility] [place] [facility] [address] [id number] [place] [address] Mar, [facility] [place] [facility] [address] [id number] [place] [address] Feb, [facility] [place] [facility] [address] [id number] [place] [address] November, [facility] [place] [facility] [address] [id number] [place] [address] November, [facility] [place] [facility] [address] [id number] [place] [address] November, [facility] [place] [facility] [address] [id number] [place] [address] November, [facility] [place] [facility] [address] [id number] [place] [address] Jun, [facility] [place] [facility] [address] [id number] [place] [address] Jun, [facility] [address] [id number] [address] May, [facility] [id number], [place] [address] May, [facility] [id number] [address] Apr, [facility] [id number] [address] Apr, [facility] [id number] [address] May, [facility] [id number] [place] [id number] Apr, [facility] [id number] [place] [address] Apr, [facility] [id number] [address] Apr, [facility] [id number], [place] [address] Apr, IMMUNIZATIONS No Known Immunizations SOCIAL HISTORY Never Assessed REASON FOR VISIT DM foot exam, need nails trimmed PLAN OF CARE Activity Details VITAL SIGNS MEDICATIONS Unknown Medications RESULTS No Results PROCEDURES Procedure Date Ordered Result Body Site DEBRIDE NAIL, 6 OR MORE Feb 20, 2017 [facility] VISIT ESTABLISHED PATIENT Feb 20, 2017 INSTRUCTIONS MEDICATIONS ADMINISTERED No Known Medications [...] Hospitalization History Post Stroke pt [facility] to [facility] and [facility] 10/[facility]/15 Hospitalization History Hypotension, Wander ateral leg weakness--Via [facility] 01/15/16 Hospitalization History hypertension/chest pain 03/2017
--- OUTSIDE RECORDS SUMMARY | 2023-03-21 11:24 | XMS REPORT ---
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 Active 479400061355 Problem Dementia with behavioral disturbance, unspecified dementia type F03.91 Active 9278019128788 Problem 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 Active 58990268 Problem Vascular dementia without behavioral disturbance F01.50 Active 139597508 Problem Type 2 diabetes mellitus with diabetic neuropathy, 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 Active 52204014 Problem 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 Active 30718709 1 Problem Bilateral hearing loss, unspecified hearing loss type H91.93 Active 12004845 Problem Diabetes E11.9 Active 697106891 Problem Falls frequently R29.6 Active 6355054 02 Problem History of cerebrovascular accident with hemiparesis or hemiplegia Z86.73 Active 874327670 Problem Type 2 diabetes mellitus with complication, without long-term current use of insulin E11.8 Active 37438118 Problem 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 Active 588081253 Problem Hypertension I10 Active 40313552 Problem SNHL (sensory-neural hearing loss), 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 Active 949286750 Problem Left-sided muscle weakness M62.81 Active 323163134 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 03781188 Problem Cardiomegaly I51.7 Active 5734227 ALLERGIES No Information ENCOUNTERS Encounter Location Date Diagnosis [facility] [id number] [address] Oct, [facility] [id number] [place] [address] Sep, [address] [id number] [place] [address] Aug, Anxiety F41.9 [place] [id number] [place] [address] Aug, Encounter for immunization Z23 [address] [address] Jul, History of cerebrovascular accident with hemiparesis or hemiplegia Z86.73 ; Dementia with behavioral disturbance, unspecified dementia type F03.91 ; Hypothyroidism (acquired) E03.9 ; Type 2 diabetes mellitus with diabetic neuropathy, 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 and 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 [id number] [place] [address] Jul, [id number] [place] [address] Jul, Type 2 diabetes mellitus with diabetic neuropathy, 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 ; Anxiety F41.9 ; Vascular dementia without behavioral disturbance F01.50 ; 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 ; Onychomycosis of great toe B35.1 ; 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 and Type 2 diabetes mellitus with complication, without long-term current use of insulin E11.8 [id number] [place] [address] Jun, Hypertension I10 ; Anxiety F41.9 ; Dementia with behavioral disturbance, unspecified dementia type F03.91 ; 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 ; 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 ; Encounter for immunization Z23 ; Skin lesion of left leg L98.9 ; BMI 28.0-28.9,adult Z68.28 and Other chronic pain G89.29 [id number] [place] [address] May, Lymphadenopathy, axillary R59.0 [address] [address] May, [facility] [id number] [place] [address] Apr, [facility] [id number] [place] [address] Apr, [facility] [id number] [place] [address] Apr, [facility] [id number] [place] [address] Apr, [facility] [id number] [place] [address] Mar, Anxiety F41.9 ; 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 and Dementia with behavioral disturbance, unspecified dementia type F03.91 [address] [place] [id number] [place] [address] Mar, [facility] [id number] [place] [address] Mar, Diabetes E11.9 ; Hypothyroidism (acquired) E03.9 ; Hypertension I10 and Type 2 diabetes mellitus with diabetic neuropathy, 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 [facility] [address] [address] Jan, [facility] [address] [address] Dec, Anxiety F41.9 and 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 [address] [address] November, [place] [id number] [place] [address] November, Chronic cough R05 and Cardiomegaly I51.7 [address] [address] Oct, Medicare annual wellness visit, initial Z00.00 [...] seizures R56.1 and Encounter for immunization Z23 [address] [address] Sep, [address] [address] Jul, [address] [address] Jul, [address] [address] Jun, Anxiety F41.9 and 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 [place] [address] [address] Jun, Bronchitis J40 and Bilateral hearing loss, unspecified hearing loss type H91.93 [address] [address] Jun, [address] [address] [address] Apr, [address] [address] Apr, Encounter for immunization Z23 and Left breast mass N63.20 [address] [address] [address] Apr, [address] [address] Mar, CVA (cerebral vascular accident) I63.9 ; Hypertension I10 ; 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 ; Type 2 diabetes mellitus with diabetic neuropathy, 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 and Left breast mass N63 [facility] [id number] [place] [address] Mar, Mild episode of recurrent major depressive disorder F33.0 and Anxiety F41.9 [facility] [id number] [place] [address] Mar, Breast mass, left N63 [facility] [id number] [place] [address] Mar, Breast mass, left N63 [facility] [id number] [place] [address] Feb, [facility] [id number] [place] [address] Feb, [facility] [id number] [place] [address] Feb, [facility] [id number] [place] [address] Feb, [facility] [id number] [place] [address] Feb, Onychomycosis B35.1 and Type 2 diabetes mellitus with complication E11.8 [facility] [id number] [place] [address] Jan, Mild episode of recurrent major depressive disorder F33.0 and Anxiety F41.9 [facility] [address] [address] Jan, [facility] [id number] [place] [address] Dec, Onychomycosis due to dermatophyte B35.1 ; 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 ; Type 2 diabetes mellitus with diabetic neuropathy, 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 ; Falls frequently R29.6 ; Neuropathy G62.9 ; Dementia with behavioral disturbance, unspecified dementia type F03.91 ; Hypothyroidism (acquired) E03.9 and Left hand pain M79.642 [facility] [id number] [place] [address] Dec, [facility] [id number] [place] [address] Dec, Hypothyroidism (acquired) E03.9 [facility] [address] [address] Dec, 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 [address] [address] November, Hypothyroidism (acquired) E03.9 [facility] [address] [address] Oct, [facility] [address] [address] Oct, 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 [address] [address] Sep, Open wound of right great toe, initial encounter S91.101A [facility] [id number] [place] [address] Sep, Breast mass, left N63 ; Non-insulin dependent type 2 diabetes mellitus E11.9 and Vascular dementia without behavioral disturbance F01.50 [id number] [place] [address] Sep, [place] [id number] [place] [address] Jul, [address] [address] [address] [address] Jul, Diabetes E11.9 ; Diaper dermatitis L22 ; Candidiasis of skin and nail B37.2 ; Neuropathy G62.9 ; Status post stroke Z86.73 ; Unsteadiness on feet R26.81 and 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 [address] [address] [address] May, [place] [address] [address] May, [place] [address] [address] May, [place] [id number] [place] [address] May, Dementia with behavioral disturbance, unspecified dementia type F03.91 [address] [id number] [place] [address] May, Dementia with behavioral disturbance, unspecified dementia type F03.91 ; Encounter for immunization Z23 and Diabetes E11.9 [place] [id number] [place] [address] May, [place] [id number] [place] [address] May, Neuropathy G62.9 [id number] [place] [address] May, [place] [place] [id number] [place] [address] Apr, Hypothyroidism (acquired) E03.9 [address] [place] [id number] [place] [address] 18 Apr, 2016 CVA (cerebral vascular accident) I63.9 ; Left hand weakness M62.81 and Neuropathy G62.9 [address] [id number] [place] [address] Apr, Hypokalemia E87.6 [address] [place] [address] [address] Apr, Hypokalemia E87.6 [place] [place] [id number] [place] [address] Mar, Diabetes E11.9 ; Edema, unspecified type R60.9 ; Anxiety disorder, unspecified F41.9 ; Pain in left knee M25.562 ; Other chronic pain G89.29 and Status post stroke Z86.73 [address] [address] Mar, [address] [address] Mar, [address] [place] [id number] [place] [address] Mar, Neuropathy G62.9 [id number] [place] [address] Feb, Anorexia R63.0 and Neuropathy G62.9 [address] [place] [id number] [place] [address] Jan, Diabetes E11.9 ; Neuropathy G62.9 ; Panic attack F41.0 ; Pain in left knee M25.562 and Hypertension 401.9 [id number] [place] [address] Jan, Weakness R53.1 ; Fatigue, unspecified type R53.83 ; Falling episodes R29.6 and Neuropathy G62.9 [id number] [place] [address] Jan, Pain in left knee M25.562 [facility] [id number] [place] [address] Jan, [facility] [id number] [place] [address] Jan, [facility] [address] [address] Jan, [facility] [id number] [place] [address] Dec, Diabetes E11.9 ; Neuropathy G62.9 and Dementia F03.90 [facility] [id number] [place] [address] Dec, [place] [place] [id number] [place] [address] Dec, Neuropathy G62.9 ; Diabetes E11.9 ; Anxiety F41.9 and Constipation, unspecified constipation type K59.00 [id number] [place] [address] Dec, [facility] [id number] [place] [address] Dec, Anxiety F41.9 [facility] [id number] [place] [address] November, [facility] [id number] [place] [address] November, Pain in left knee M25.562 ; Other chronic pain G89.29 ; Diabetes E11.9 and Left eye pain H57.12 [facility] [id number] [place] [address] November, [facility] [id number] [place] [address] November, Hearing loss, unspecified laterality H91.90 [facility] [address], [place] [address] November, [facility] [id number] [place] [address] November, [facility] [id number] [place] [address] November, Pain in right knee M25.561 [facility] [id number] [place] [address] November, [facility] [id number] [place] [address] Oct, [facility] [id number] [place] [address] Oct, [facility] [id number] [place] [address] Oct, Edema of left lower extremity R60.0 ; Diabetes E11.9 ; 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 I63.39 and Anxiety disorder, unspecified F41.9 [facility] [id number] [place] [address] Oct, Panic attack F41.0 [facility] [id number] [place] [address] Oct, [facility] [id number] [place] [address] Oct, CVA (cerebral vascular accident) I63.9 [facility] [address] [address] Oct, [facility] [id number] [place] [address] Oct, Diabetes E11.9 ; Hypertension I10 and Dementia F03.90 [facility] [id number] [place] [address] Sep, [facility] [address], [place] [address] Sep, [facility] [id number] [place] [address] Sep, Diabetes E11.9 ; 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 ; Onychomycosis B35.1 and Fatigue R53.83 [facility] [id number] [place] [address] Aug, [facility] [id number] [place] [address] Aug, [facility] [id number] [place] [address] Jul, [facility] [id number] [place] [address] Jul, [facility] [id number] [place] [address] Jun, 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 [facility] [id number] [place] [address] Jun, Anxiety disorder, unspecified F41.9 and Major depressive disorder, single episode, moderate F32.1 [facility] [address] [address] Jun, [facility] [id number] [place] [address] Jun, [facility] [id number] [place] [address] May, Left knee pain M25.562 [facility] [id number] [place] [address] 16 May, 2015 [facility] [address] [address] May, [facility] [id number] [place] [address] May, [facility] [id number] [place] [address] May, Hypertension I10 ; Diabetes E11.9 and Depression F32.9 [facility] [id number] [place] [address] May, [facility] [id number] [place] [address] Apr, Left knee pain M25.562 ; Type 2 diabetes mellitus with complication E11.8 and Encounter for immunization Z23 [facility] [id number] [place] [address] Apr, [facility] [id number] [place] [address] Apr, [facility] [id number] [place] [address] Mar, [facility] [id number] [place] [address] Mar, Silvestre stanley 727.51 [facility] [id number] [place] [address] Mar, [facility] [id number] [place] [address] Mar, [facility] [id number] [place] [address] Mar, [facility] [id number] [place] [address] Feb, [facility] [id number] [place] [address] Feb, [facility] [address], [place] [address] Feb, Hypertension 401.9 and Diabetes 250.00 [facility] [id number] [address] Jan, [facility] [address], [place] [address] Jan, Diabetes 250.00 [facility] [address], [place] [address] 14 Jan, 2015 [facility] [id number] [place] [address] Jan, [facility] [address] [address] 29 Dec, 2014 Diabetes 250.00 and Forgetfulness 780.99 [facility] [address], [place] [address] Dec, [facility] [address], [place] [address] Dec, Diabetes mellitus 250.00 [facility] [address], [place] [address] Dec, [facility] [address], [place] [address] Dec, [facility] [address], [place] [address] Dec, [facility] [address] [address] 16 Dec, 2014 Diabetes 250.00 and Dysthymia 300.4 [facility] [address], [place] [address] Dec, [facility] [address], [place] [address] 09 Dec, 2014 Grief 309.0 and Diabetes mellitus 250.00 [facility] [address], [place] [address] 14 Oct, 2014 [facility] [address] [address] Oct, [facility] [place] [facility] [address] [id number] [place] [address] Jul, [facility] [place] [facility] [address] [id number] [place] [address] Jul, [facility] [place] [facility] [address] [id number] [place] [address] Jul, [facility] [place] [facility] [address] [id number] [place] [address] Jul, [facility] [place] [facility] [address] [id number] [place] [address] Jul, [facility] [place] [facility] [address] [id number] [place] [address] May, [facility] [place] [facility] [address] [id number] [place] [address] May, [facility] [place] [facility] [address] [id number] [place] [address] Apr, [facility] [place] [facility] [address] [id number] [place] [address] Apr, [facility] [place] [facility] [address] [id number] [place] [address] Mar, [facility] [place] [facility] [address] [id number] [place] [address] Mar, [facility] [place] [facility] [address] [id number] [place] [address] Feb, [facility] [place] [facility] [address] [id number] [place] [address] Feb, [facility] [place] [facility] [address] [id number] [place] [address] Feb, [facility] [place] [facility] [address] [id number] [place] [address] Feb, [facility] [place] [facility] [address] [id number] [place] [address] Feb, [facility] [address] [id number] [place] [address] Feb, [facility] [place] [facility] [address] [id number] [place] [address] November, [facility] [address] [id number] [place] [address] November, [facility] [place] [facility] [address] [id number] [place] [address] Sep, [facility] [address] [id number] [place] [address] Sep, [facility] [place] [facility] [address] [id number] [place] [address] Sep, [facility] [place] [facility] [address] [id number] [place] [address] Sep, [facility] [address] [id number] [place] [address] Sep, [facility] [place] [facility] [address] [id number] [place] [address] Sep, [facility] [address] [id number] [place] [address] Sep, [facility] [place] [facility] [address] [id number] [place] [address] Sep, [facility] [place] [facility] [address] [id number] [place] [address] Aug, [facility] [place] [facility] [address] [id number] [place] [address] Aug, [facility] [place] [facility] [address] [id number] [place] [address] Jul, [facility] [place] [facility] [address] [id number] [place] [address] Jul, [facility] [place] [facility] [address] [id number] [place] [address] Jul, [facility] [place] [facility] [address] [id number] [place] [address] Jul, [facility] [place] [facility] [address] [id number] [place] [address] Jun, [facility] [place] [facility] [address] [id number] [place] [address] Jun, [facility] [place] [facility] [address] [id number] [place] [address] May, [facility] [place] [facility] [address] [id number] [place] [address] May, [facility] [place] [facility] [address] [id number] [place] [address] May, [facility] [place] [facility] [address] [id number] [address] May, [facility] [place] [facility] [address] [id number] [place] [address] May, [facility] [place] [facility] [address] [id number], [place] [address] May, [facility] [place] [facility] [address] [id number], [place] [address] Apr, [facility] [place] [facility] [address] [id number], [place] [address] Apr, [facility] [place] [facility] [address] [id number] [place] [address] Apr, [facility] [place] [facility] [address] [id number], [place] [address] Apr, [facility] [place] [facility] [address] [id number] [place] [address] Mar, [facility] [place] [facility] [address] [id number] [place] [address] Mar, [facility] [address] [id number] [place] [address] Jan, [facility] [place] [facility] [address] [id number] [place] [address] Jan, [facility] [address] [id number] [place] [address] Jan, [facility] [place] [facility] [address] [id number] [place] [address] November, [facility] [address] [id number] [place] [address] November, [facility] [address] [id number] [place] [address] November, [facility] [address] [id number] [place] [address] November, [facility] [address] [id number] [place] [address] Aug, [facility] [address] [id number] [place] [address] Jul, [facility] [address] [id number] [place] [address] Jul, [facility] [address] [id number] [place] [address] Jul, [facility] [place] [facility] [address] [id number] [place] [address] Jun, [facility] [place] [facility] [address] [id number] [place] [address] Jun, [facility] [place] [facility] [address] [id number] [place] [address] May, [facility] [address] [id number] [place] [address] May, [facility] [place] [facility] [address] [id number] [place] [address] Apr, [facility] [place] [facility] [address] [id number] [place] [address] Apr, [facility] [place] [facility] [address] [id number] [place] [address] Apr, [facility] [place] [facility] [address] [id number] [place] [address] Apr, [facility] [place] [facility] [address] [id number] [place] [address] Apr, [facility] [place] [facility] [address] [id number] [place] [address] Apr, [facility] [place] [facility] [address] [id number] [place] [address] Apr, [facility] [place] [facility] [address] [id number] [place] [address] Apr, [facility] [place] [facility] [address] [id number] [place] [address] Apr, [facility] [place] [facility] [address] [id number] [place] [address] Mar, [facility] [place] [facility] [address] [id number] [place] [address] Feb, [facility] [place] [facility] [address] [id number] [place] [address] November, [facility] [place] [facility] [address] [id number] [place] [address] November, [facility] [place] [facility] [address] [id number] [place] [address] November, [facility] [place] [facility] [address] [id number] [place] [address] November, [facility] [place] [facility] [address] [id number] [address] Jun, [facility] [address] [facility] [id number] [address] Jun, [facility] [address] [facility] [id number], [place] [address] May, [facility] [address] [facility] [id number], [place] [address] May, [facility] [address] [facility] [id number], [place] [address] Apr, [facility] [address] [facility] [id number] [address] Apr, [facility] [address] [facility] [id number], [place] [address] May, [facility] [address] [facility] [id number], [place] [address] Apr, [facility] [address] [facility] [id number], [place] [address] Apr, [facility] [address] [facility] [id number], [place] [address] Apr, [facility] [address] [facility] [id number], [place] [address] Apr, IMMUNIZATIONS No Known Immunizations SOCIAL HISTORY Never Assessed REASON FOR VISIT EMR-[facility] PLAN OF CARE VITAL SIGNS MEDICATIONS Medication Instructions Dosage Frequency Start Date End Date Du ration Status Januvia 100 mg 1 tablet by Oral route 1 time per day Feb, Active Diflucan 150 mg take 1 tablet by Oral route once 1 time per day Jul, Active Toprol XL 50 mg take 1 tablet by Oral route 1 time per day Feb, Active Ativan 0.5 mg take 1 tablet (0.5 mg) by oral route 2 times per day as needed PRN May, Active Zocor 40 mg take 1 tablet (40 mg) by oral route once daily in the evening Feb, Active hydrochlorothia zide-lisinopril 20-25 mg take 1 tablet by oral route once daily Feb, Active RESULTS No Results PROCEDURES No Known [...] Hospitalization History Post Stroke pt went to [facility] and then [facility] 10/15/15 Hospitalization History Hypotension, Wander ateral leg weakness--Via [facility] 01/15/16 Hospitalization History hypertension/chest pain 03/2017
--- OUTSIDE RECORDS SUMMARY | 2023-03-21 11:24 | XMS REPORT ---
Author Author Lady MENDEZ [facility] Address [address] [place] [address] Care Team Providers Care Jewelry Mechanic Name Role Phone FAHAD MENDEZ Unavailable PROBLEMS Type Condition ICD9-CM Code NGG22-LA Code Onset Dates Condition Status SNOMED Code Problem Hearing loss of aging, bilateral H91.13 Active 36632559 Problem History of arthroplasty of left knee Z96.652 Active 965710511 Problem Eye exam abnormal R93.8 Active 340900 009 Problem History of cerebrovascular accident with hemiparesis or hemiplegia Z86.73 Active 229286398 Problem CVA (cerebral vascular accident) I63.9 Active 444891064 Problem Hypertension I10 Active 97921435 Problem Major depressive disorder, single episode, moderate F32.1 Active 233633258 Problem Dementia F03.90 Active 90413661 Problem Panic attack F41.0 Active 751714034 Problem Vascular dementia without behavioral disturbance F01.50 Active 283244387 Problem Pain in left knee M25.562 Active 290449 03 Problem Non-insulin dependent type 2 diabetes mellitus E11.9 Active 72607786 Problem Other chronic pain G89.29 Active 80472 001 Problem 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 Active 09123258 Problem Diabetes E11.9 Active 768141244 Problem 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 Active 734019073 Problem Mild episode of recurrent major depressive disorder F33.0 Active 53534745 0 Problem Type 2 diabetes mellitus with complication E11.8 Active 17421534 Problem Neuropathy G62.9 Active 165877454 Problem Constipation, unspecified constipation type K59.00 Active 63630519 Problem Anxiety F41.9 Active 91161549 Problem Type 2 diabetes mellitus without complications E11.9 Active 03042902 Problem Falls frequently R29.6 Active 6295840 02 Problem 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 Active 93646215 1 Problem Type 2 diabetes mellitus with diabetic neuropathy, 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 Active 72972650 Problem Fatigue, unspecified type R53.83 Active 19200945 Problem Left hand weakness M62.81 Active 64020 3006 Problem Weakness R53.1 Active 41844137 Problem Falling episodes R29.6 Active 6325256 04 Problem 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 Active 835163978989 Problem Unsteadiness on feet R26.81 Active 27892081 Problem Hypothyroidism (acquired) E03.9 Active 364266001 Problem Dementia with behavioral disturbance, unspecified dementia type F03.91 Active [id number] ALLERGIES No Information SOCIAL HISTORY Never Assessed PLAN OF CARE VITAL SIGNS MEDICATIONS Unknown Medications RESULTS No Results PROCEDURES No Known procedures IMMUNIZATIONS No Known Immunizations MEDICAL (GENERAL) HISTORY Type Description Date Medical [...] Hospitalization History Post Stroke pt went to [facility] and then [facility] 10/15/15 Hospitalization History Hypotension, Wander ateral leg weakness--Via [facility] 01/15/16 Hospitalization History hypertension/chest pain 03/2017
--- OUTSIDE RECORDS SUMMARY | 2023-03-21 11:24 | XMS REPORT ---
Author Author Lady Dotson [facility] Organization [facility] Address Unknown Phone Unavailable Care Team Providers Care Food Preparation Supervisor Name Role Phone Migration, Doctor Unavailable Unavailable PROBLEMS Type Condition ICD9-CM Code SQG87-YV Code Onset Dates Condition Status SNOMED Code Problem Other chronic pain G89.29 Active 32132 001 Problem Panic attack F41.0 Active 242311141 Problem Hypothyroidism (acquired) E03.9 Active 426082235 Problem Anxiety F41.9 Active 54222014 Problem 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 Active 570482143137 Problem Dementia with behavioral disturbance, unspecified dementia type F03.91 Active 0540728259980 Problem 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 Active 39442153 Problem Vascular dementia without behavioral disturbance F01.50 Active 961772452 Problem Type 2 diabetes mellitus with diabetic neuropathy, 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 Active 34934633 Problem 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 Active 59052378 1 Problem Bilateral hearing loss, unspecified hearing loss type H91.93 Active 89746040 Problem Diabetes E11.9 Active 996748418 Problem Falls frequently R29.6 Active 3240336 02 Problem History of cerebrovascular accident with hemiparesis or hemiplegia Z86.73 Active 839507099 Problem Type 2 diabetes mellitus with complication, without long-term current use of insulin E11.8 Active 89499583 Problem 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 Active 548342143 Problem Hypertension I10 Active 52976217 Problem SNHL (sensory-neural hearing loss), 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 Active 469991660 Problem Left-sided muscle weakness M62.81 Active 421119725 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 40107234 Problem Cardiomegaly I51.7 Active 8159595 ALLERGIES No Information ENCOUNTERS Encounter Location Date Diagnosis [facility] [id number] [place] [address] Oct, [facility] [id number] [place] [phone] Sep, [id number] [place] [address] Aug, Anxiety F41.9 [address] [id number] [place] [address] Aug, Encounter for immunization Z23 [address] [address] Jul, History of cerebrovascular accident with hemiparesis or hemiplegia Z86.73 ; Dementia with behavioral disturbance, unspecified dementia type F03.91 ; Hypothyroidism (acquired) E03.9 ; Type 2 diabetes mellitus with diabetic neuropathy, 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 and 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 [id number] [place] [address] Jul, [id number] [place] [address] Jul, Type 2 diabetes mellitus with diabetic neuropathy, 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 ; Anxiety F41.9 ; Vascular dementia without behavioral disturbance F01.50 ; 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 ; Onychomycosis of great toe B35.1 ; 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 and Type 2 diabetes mellitus with complication, without long-term current use of insulin E11.[id number] [place] [address] Jun, Hypertension I10 ; Anxiety F41.9 ; Dementia with behavioral disturbance, unspecified dementia type F03.91 ; 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 ; 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 ; Encounter for immunization Z23 ; Skin lesion of left leg L98.9 ; BMI 28.0-28.9,adult Z68.28 and Other chronic pain G89.29 [id number] [place] [address] May, Lymphadenopathy, axillary R59.0 [address] [place] [address] May, [facility] [id number] [place] [address] Apr, [facility] [id number] [place] [address] Apr, [facility] [id number] [place] [address] Apr, [facility] [id number] [place] [address] Apr, [facility] [id number] [place] [address] Mar, Anxiety F41.9 ; 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 and Dementia with behavioral disturbance, unspecified dementia type F03.91 [address] [id number] [place] [address] Mar, [facility] [id number] [place] [address] Mar, Diabetes E11.9 ; Hypothyroidism (acquired) E03.9 ; Hypertension I10 and Type 2 diabetes mellitus with diabetic neuropathy, 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 [facility] [address] [address] Jan, [facility] [address] [address] Dec, Anxiety F41.9 and 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 [address] [address] November, [address] [id number] [place] [address] November, Chronic cough R05 and Cardiomegaly I51.7 [address] [address] Oct, Medicare annual wellness visit, initial Z00.00 [...] seizures R56.1 and Encounter for immunization Z23 [address] [address] Sep, [address] [address] Jul, [address] [address] Jul, [address] [address] Jun, Anxiety F41.9 and 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 [address] [address] Jun, Bronchitis J40 and Bilateral hearing loss, unspecified hearing loss type H91.93 [address] [address] Jun, [address] [place] [address] [address] Apr, [address] [address] Apr, Encounter for immunization Z23 and Left breast mass N63.20 [address] [address] Apr, [address] [address] Mar, CVA (cerebral vascular accident) I63.9 ; Hypertension I10 ; 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 ; Type 2 diabetes mellitus with diabetic neuropathy, 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 and Left breast mass N63 [facility] [id number] [place] [address] Mar, Mild episode of recurrent major depressive disorder F33.0 and Anxiety F41.9 [facility] [id number] [place] [address] Mar, Breast mass, left N63 [facility] [id number] [place] [address] Mar, Breast mass, left N63 [facility] [id number] [place] [address] Feb, [facility] [id number] [place] [address] Feb, [facility] [id number] [place] [address] Feb, [facility] [id number] [place] [address] Feb, [facility] [id number] [place] [address] Feb, Onychomycosis B35.1 and Type 2 diabetes mellitus with complication E11.8 [facility] [id number] [place] [address] Jan, Mild episode of recurrent major depressive disorder F33.0 and Anxiety F41.9 [facility] [address] [address] Jan, [facility] [id number] [place] [address] Dec, Onychomycosis due to dermatophyte B35.1 ; 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 ; Type 2 diabetes mellitus with diabetic neuropathy, 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 ; Falls frequently R29.6 ; Neuropathy G62.9 ; Dementia with behavioral disturbance, unspecified dementia type F03.91 ; Hypothyroidism (acquired) E03.9 and Left hand pain M79.642 [facility] [id number] [place] [address] Dec, [facility] [id number] [place] [address] Dec, Hypothyroidism (acquired) E03.9 [facility] [address] [address] Dec, 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 [address] [address] November, Hypothyroidism (acquired) E03.9 [facility] [address] [address] Oct, [facility] [address] [address] Oct, 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 [facility] [id number] [place] [address] Oct, [facility] [id number] [place] [address] Oct, Dysuria R30.0 ; 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 ; Bilateral hearing loss, unspecified hearing loss type H91.93 and 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 [facility] [id number] [place] [address] Sep, [facility] [address] [address] Sep, Open wound of right great toe, initial encounter S91.101A [facility] [id number] [place] [address] Sep, Breast mass, left N63 ; Non-insulin dependent type 2 diabetes mellitus E11.9 and Vascular dementia without behavioral disturbance F01.50 [id number] [place] [address] Sep, [address] [id number] [place] [address] Jul, [address] [address] Jul, Diabetes E11.9 ; Diaper dermatitis L22 ; Candidiasis of skin and nail B37.2 ; Neuropathy G62.9 ; Status post stroke Z86.73 ; Unsteadiness on feet R26.81 and 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 [address] [address] May, [address] [address] May, [address] [address] May, [id number] [place] [address] May, Dementia with behavioral disturbance, unspecified dementia type F03.91 [address] [id number] [place] [address] May, Dementia with behavioral disturbance, unspecified dementia type F03.91 ; Encounter for immunization Z23 and Diabetes E11.9 [address] [id number] [place] [address] May, [address] [id number] [place] [address] May, Neuropathy G62.9 [address] [place] [id number] [place] [address] May, [address] [id number] [place] [address] Apr, Hypothyroidism (acquired) E03.9 [address] [id number] [place] [address] 18 Apr, 2016 CVA (cerebral vascular accident) I63.9 ; Left hand weakness M62.81 and Neuropathy G62.9 [address] [id number] [place] [address] Apr, Hypokalemia E87.6 [address] [address] Apr, Hypokalemia E87.6 [address] [id number] [place] [address] Mar, Diabetes E11.9 ; Edema, unspecified type R60.9 ; Anxiety disorder, unspecified F41.9 ; Pain in left knee M25.562 ; Other chronic pain G89.29 and Status post stroke Z86.73 [address] [address] Mar, [address] [place] [address] Mar, [id number] [place] [address] Mar, Neuropathy G62.9 [address] [id number] [place] [address] Feb, Anorexia R63.0 and Neuropathy G62.9 [address] [id number] [place] [address] Jan, Diabetes E11.9 ; Neuropathy G62.9 ; Panic attack F41.0 ; Pain in left knee M25.562 and Hypertension 401.9 [id number] [place] [address] Jan, Weakness R53.1 ; Fatigue, unspecified type R53.83 ; Falling episodes R29.6 and Neuropathy G62.9 [id number] [place] [address] Jan, Pain in left knee M25.562 [facility] [id number] [place] [address] Jan, [facility] [id number] [place] [address] Jan, [facility] [address] [address] Jan, [facility] [id number] [place] [address] Dec, Diabetes E11.9 ; Neuropathy G62.9 and Dementia F03.90 [facility] [id number] [place] [address] Dec, [address] [id number] [place] [address] Dec, Neuropathy G62.9 ; Diabetes E11.9 ; Anxiety F41.9 and Constipation, unspecified constipation type K59.00 [address] [id number] [place] [address] Dec, [facility] [id number] [place] [address] Dec, Anxiety F41.9 [facility] [id number] [place] [address] November, [facility] [id number] [place] [address] November, Pain in left knee M25.562 ; Other chronic pain G89.29 ; Diabetes E11.9 and Left eye pain H57.12 [facility] [id number] [place] [address] November, [facility] [id number] [place] [address] November, Hearing loss, unspecified laterality H91.90 [facility] [address] [address] November, [facility] [id number] [place] [address] November, [facility] [id number] [place] [address] November, Pain in right knee M25.561 [facility] [id number] [place] [address] November, [facility] [id number] [place] [address] Oct, [facility] [id number] [place] [address] Oct, [facility] [id number] [place] [address] Oct, Edema of left lower extremity R60.0 ; Diabetes E11.9 ; 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 I63.39 and Anxiety disorder, unspecified F41.9 [facility] [id number] [place] [address] Oct, Panic attack F41.0 [facility] [address] [place] [address] Oct, [facility] [id number] [place] [address] Oct, CVA (cerebral vascular accident) I63.9 [facility] [address] [address] Oct, [facility] [id number] [place] [address] Oct, Diabetes E11.9 ; Hypertension I10 and Dementia F03.90 [facility] [id number] [place] [address] Sep, [facility] [address] [address] Sep, [facility] [id number] [place] [address] Sep, Diabetes E11.9 ; 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 ; Onychomycosis B35.1 and Fatigue R53.83 [facility] [id number] [place] [address] Aug, [facility] [id number] [place] [address] Aug, [facility] [id number] [place] [address] Jul, [facility] [id number] [place] [address] Jul, [facility] [id number] [place] [address] Jun, 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 [facility] [id number] [place] [address] Jun, Anxiety disorder, unspecified F41.9 and Major depressive disorder, single episode, moderate F32.1 [facility] [address] [address] Jun, [facility] [id number] [place] [address] Jun, [facility] [address] [place] [address] May, Left knee pain M25.562 [facility] [id number] [place] [address] 16 May, 2015 [facility] [address] [address] May, [facility] [id number] [place] [address] May, [facility] [id number] [place] [address] May, Hypertension I10 ; Diabetes E11.9 and Depression F32.9 [facility] [id number] [place] [address] May, [facility] [id number] [place] [address] Apr, Left knee pain M25.562 ; Type 2 diabetes mellitus with complication E11.8 and Encounter for immunization Z23 [facility] [id number] [place] [address] Apr, [facility] [id number] [place] [address] Apr, [facility] [id number] [place] [address] Mar, [facility] [id number] [place] [address] Mar, Silvestre stanley 727.51 [facility] [id number] [place] [address] Mar, [facility] [id number] [place] [address] Mar, [facility] [id number] [place] [address] Mar, [facility] [id number] [place] [address] Feb, [facility] [id number] [place] [address] Feb, [facility] [address] [address] Feb, Hypertension 401.9 and Diabetes 250.00 [facility] [id number] [address] Jan, [facility] [address] [address] Jan, Diabetes 250.00 [facility] [address] [address] 14 Jan, 2015 [facility] [id number] [place] [address] Jan, [facility] [address] [address] 29 Dec, 2014 Diabetes 250.00 and Forgetfulness 780.99 [facility] [address] [address] Dec, [facility] [address] [address] Dec, Diabetes mellitus 250.00 [facility] [address] [address] Dec, [facility] [address] [address] Dec, [facility] [address] [address] Dec, [facility] [address] [address] 16 Dec, 2014 Diabetes 250.00 and Dysthymia 300.4 [facility] [address] [address] Dec, [facility] [address] [address] 09 Dec, 2014 Grief 309.0 and Diabetes mellitus 250.00 [facility] [address] [address] 14 Oct, 2014 [facility] [address] [address] Oct, [facility] [place] [facility] [address] [id number] [place] [address] Jul, [facility] [place] [facility] [address] [id number] [place] [address] Jul, [facility] [place] [facility] [address] [id number] [place] [address] Jul, [facility] [place] [facility] [address] [id number] [place] [address] Jul, [facility] [place] [facility] [address] [id number] [place] [address] Jul, [facility] [place] [facility] [address] [id number] [place] [address] May, [facility] [place] [facility] [address] [id number] [place] [address] May, [facility] [place] [facility] [address] [id number] [place] [address] Apr, [facility] [place] [facility] [address] [id number] [place] [address] Apr, [facility] [place] [facility] [address] [id number] [place] [address] Mar, [facility] [place] [facility] [address] [id number] [place] [address] Mar, [facility] [place] [facility] [address] [id number] [place] [address] Feb, [facility] [place] [facility] [address] [id number] [place] [address] Feb, [facility] [place] [facility] [address] [id number] [place] [address] Feb, [facility] [place] [facility] [address] [id number] [place] [address] Feb, [facility] [place] [facility] [address] [id number] [place] [address] Feb, [facility] [address] [id number] [place] [address] Feb, [facility] [place] [facility] [address] [id number] [place] [address] November, [facility] [address] [id number] [place] [address] November, [facility] [place] [facility] [address] [id number] [place] [address] Sep, [facility] [address] [id number] [place] [address] Sep, [facility] [place] [facility] [address] [id number] [place] [address] Sep, [facility] [place] [facility] [address] [id number] [place] [address] Sep, [facility] [address] [id number] [place] [address] Sep, [facility] [place] [facility] [address] [id number] [place] [address] Sep, [facility] [address] [id number] [place] [address] Sep, [facility] [place] [facility] [address] [id number] [place] [address] Sep, [facility] [place] [facility] [address] [id number] [place] [address] Aug, [facility] [place] [facility] [address] [id number] [place] [address] Aug, [facility] [facility] [place] [facility] [address] [id number] [place] [address] Jul, [facility] [place] [facility] [address] [id number] [place] [address] Jul, [facility] [place] [facility] [address] [id number] [place] [address] Jul, [facility] [place] [facility] [address] [id number] [place] [address] Jul, [facility] [place] [facility] [address] [id number] [place] [address] Jun, [facility] [place] [facility] [address] [id number] [place] [address] Jun, [facility] [place] [facility] [address] [id number] [place] [address] May, [facility] [place] [facility] [address] [id number] [place] [address] May, [facility] [place] [facility] [address] [id number] [place] [address] May, [facility] [place] [facility] [address] [id number] [place] [address] May, [facility] [place] [facility] [address] [id number] [place] [address] May, [facility] [place] [facility] [address] [id number] [place] [address] May, [facility] [place] [facility] [address] [id number] [place] [address] Apr, [facility] [place] [facility] [address] [id number] [place] [address] Apr, [facility] [place] [facility] [address] [id number] [place] [address] Apr, [facility] [place] [facility] [address] [id number] [place] [address] Apr, [facility] [place] [facility] [address] [id number] [place] [address] Mar, [facility] [place] [facility] [address] [id number] [place] [address] Mar, [facility] [address] [id number] [place] [address] Jan, [facility] [place] [facility] [address] [id number] [place] [address] Jan, [facility] [address] [id number] [place] [address] Jan, [facility] [place] [facility] [address] [id number] [place] [address] November, [facility] [address] [id number] [place] [address] November, [facility] [address] [id number] [place] [address] November, [facility] [address] [id number] [place] [address] November, [facility] [address] [id number] [place] [address] Aug, [facility] [address] [id number] [place] [address] Jul, [facility] [address] [id number] [place] [address] Jul, [facility] [address] [id number] [place] [address] Jul, [facility] [place] [facility] [address] [id number] [place] [address] Jun, [facility] [place] [facility] [address] [id number] [place] [address] Jun, [facility] [place] [facility] [address] [id number] [place] [address] May, [facility] [address] [id number] [place] [address] May, [facility] [place] [facility] [address] [id number] [place] [address] Apr, [facility] [place] [facility] [address] [id number] [place] [address] Apr, [facility] [place] [facility] [address] [id number] [place] [address] Apr, [facility] [place] [facility] [address] [id number] [place] [address] Apr, [facility] [place] [facility] [address] [id number] [place] [address] Apr, [facility] [place] [facility] [address] [id number] [place] [address] Apr, [facility] [place] [facility] [address] [id number] [place] [address] Apr, [facility] [place] [facility] [address] [id number] [place] [address] Apr, [facility] [place] [facility] [address] [id number] [place] [address] Apr, [facility] [place] [facility] [address] [id number] [place] [address] Mar, [facility] [place] [facility] [address] [id number] [place] [address] Feb, [facility] [place] [facility] [address] [id number] [place] [address] November, [facility] [place] [facility] [address] [id number] [place] [address] November, [facility] [place] [facility] [address] [id number] [place] [address] November, [facility] [place] [facility] [address] [id number] [place] [address] November, [facility] [place] [facility] [address] [id number] [place] [address] Jun, [facility] [address] [id number] [place] [address] Jun, [facility] [address] [facility] [id number] [place] [address] May, [facility] [id number] [place] [address] May, [facility] [address] [facility] [id number] [place] [address] Apr, [facility] [address] [facility] [id number] [place] [address] Apr, [facility] [id number] [place] [address] May, [facility] [id number] [place] [address] Apr, [facility] [id number] [place] [address] Apr, [facility] [address] [id number] [place] [address] Apr, [facility] [address] [id number] [place] [address] Apr, IMMUNIZATIONS No Known Immunizations SOCIAL HISTORY Never Assessed REASON FOR VISIT EMR-[facility] PLAN OF CARE VITAL SIGNS MEDICATIONS Unknown [...] Hospitalization History Post Stroke pt went [facility] then [facility] 10/15/15 Hospitalization History Hypotension, Wander ateral leg weakness--[facility]ia [facility] 01/15/16 Hospitalization History hypertension/chest pain 03/2017
--- OUTSIDE RECORDS SUMMARY | 2023-03-21 11:24 | XMS REPORT ---
Author Author Lady GOLDMAN Organization [facility] Address [address] [place] [address] Care Team Providers Care Inside Sales Director Name Role Phone JUNE GOLDMAN Unavailable PROBLEMS Type Condition ICD9-CM Code [id number] Code Onset Dates Condition Status SNOMED Code Problem Hearing loss of aging, bilateral H91.13 Active 78362558 Problem History of arthroplasty of left knee Z96.652 Active 677287368 Problem Eye exam abnormal R93.8 Active 169201 009 Problem History of cerebrovascular accident with hemiparesis or hemiplegia Z86.73 Active 090021545 Problem CVA (cerebral vascular accident) I63.9 Active 159325930 Problem Hypertension I10 Active 25369031 Problem Major depressive disorder, single episode, moderate F32.1 Active 608405186 Problem Dementia F03.90 Active 34793478 Problem Panic attack F41.0 Active 790955063 Problem Vascular dementia without behavioral disturbance F01.50 Active 297029106 Problem Pain in left knee M25.562 Active 403416 03 Problem Non-insulin dependent type 2 diabetes mellitus E11.9 Active 28657005 Problem Other chronic pain G89.29 Active 24789 001 Problem 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 Active 02588693 Problem Diabetes E11.9 Active 676279285 Problem 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 Active 118902834 Problem Mild episode of recurrent major depressive disorder F33.0 Active 39054085 0 Problem Type 2 diabetes mellitus with complication E11.8 Active 76559189 Problem Neuropathy G62.9 Active 215840394 Problem Constipation, unspecified constipation type K59.00 Active 88005190 Problem Anxiety F41.9 Active 78331295 Problem Type 2 diabetes mellitus without complications E11.9 Active 42846273 Problem Falls frequently R29.6 Active 8364854 02 Problem 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 Active 25695701 1 Problem Type 2 diabetes mellitus with diabetic neuropathy, 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 Active 45700301 Problem Fatigue, unspecified type R53.83 Active 94591355 Problem Left hand weakness M62.81 Active 84559 3006 Problem Weakness R53.1 Active 90565639 Problem Falling episodes R29.6 Active 7191543 04 Problem 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 Active 963060183267 Problem Unsteadiness on feet R26.81 Active 47445081 Problem Hypothyroidism (acquired) E03.9 Active 888475472 Problem Dementia with behavioral disturbance, unspecified dementia type F03.91 Active 0395342230780 ALLERGIES Substance Reaction Event Type Date Status Victoza stomach upset Drug Allergy Jul, Active SOCIAL HISTORY No smoking Hx information available PLAN OF CARE Activity Details VITAL SIGNS Height 62 in 2016-07-30 Weight 151 lbs 2016-07-30 Temperature 98.1 degrees Fahrenheit Heart Rate 64 bpm 2016-07-30 Respiratory Rate 18 2016-07-30 BMI 27.62 kg/m2 2016-07-30 Blood pressure systolic 118 mmHg Blood pressure diastolic 80 mmHg 2016-07 MEDICATIONS Medication Instructions Dosage Frequency Start Date End Date Duration Status Lotrisone 1-0.05 % Externally Twice a day 1 application to affected area 12h Jul, November, 30 days Active Wheelchair - as directed Jan, Active Blood Glucose Monitor System N/A test blood sugar 24h Jul, Active Milk of Magnesia 7.75 % Orally Once a day 5 ml as needed 24h Dec, Active Invokana 100 MG Orally Once a day 1 tablet 24h Sep, 90 days Active MetFORMIN HCl ER 500 MG Orally 2 times a day 1 tablet with meals 12h 17 Feb, 2015 90 days Active Aspirin 81 MG Orally Once a day 1 tablet 24h 25 Aug, 2015 30 day(s) Active Sertraline HCl 100 MG Orally Once a day 1 tablet 24h 30 days Active Levetiracetam 500 MG Orally Twice a day 1 tablet 12h 90 days Active Neurontin 300 MG Orally 3 times a day 1 capsule 8h Dec, 30 days Active Colace 100 MG Orally Once a day 1 capsule as needed 24h 30 days Active Aggrenox 25-200 MG Orally Twice a day 1 capsule 12h 90 days Active Levothyroxine Sodium 50 MCG Orally Once a day 1 tablet on an empty stomach in the morning 24h Apr, 30 day(s) Active Test strips Test Strips ICD10- E11.9 2 times a day test blood sugar 12h 14 Oct, 2015 Active Tylenol 325 MG Orally every 6 hrs 2 tablet as needed 6h 25 Aug, 2015 Active Atorvastatin Calcium 40 mg Orally Once a day 1 tablet at bedtime 24h 90 days Active Aricept 5 mg Orally Once a day 1 tablet at bedtime 24h May, Active Carvedilol 3.125 MG Orally 2 times a day 1 tablet 12h 30 Active RESULTS Name Result Date Reference Range A1C (IN HOUSE) 2016-07-30 A1C IN HOUSE 11.1 4.3 - 5.6 % Previous A1c 8.8 Lot [id number] Exp date PROCEDURES Procedure Date Ordered Related Diagnosis Body Site TRIM NAIL(S) 2016-07-30 N/A GLYCATED HEMOGLOBIN TEST Jul 30, 2016 [facility] VISIT ESTABLISHED PATIENT Jul 30, 2016 TRIM NAIL(S) Jul 30, 2016 Office Visit, Est Pt., Level 3 Jul 30, 2016 IMMUNIZATIONS No Known Immunizations
--- OUTSIDE RECORDS SUMMARY | 2023-03-21 11:25 | XMS REPORT ---
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 Active 720947603735 Problem Dementia with behavioral disturbance, unspecified dementia type F03.91 Active 4513673465413 Problem 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 Active 48550473 Problem Vascular dementia without behavioral disturbance F01.50 Active 782508650 Problem Type 2 diabetes mellitus with diabetic neuropathy, 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 Active 21037958 Problem 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 Active 44785810 1 Problem Bilateral hearing loss, unspecified hearing loss type H91.93 Active 59701498 Problem Diabetes E11.9 Active 713200397 Problem Falls frequently R29.6 Active 9366482 02 Problem History of cerebrovascular accident with hemiparesis or hemiplegia Z86.73 Active 980936029 Problem Type 2 diabetes mellitus with complication, without long-term current use of insulin E11.8 Active 00478962 Problem 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 Active 071954231 Problem Hypertension I10 Active 85878921 Problem SNHL (sensory-neural hearing loss), 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 Active 758398721 Problem Left-sided muscle weakness M62.81 Active 230231528 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 88045019 Problem Cardiomegaly I51.7 Active 9896195 ALLERGIES No Information ENCOUNTERS Encounter Location Date Diagnosis [facility] [address] [facility] [id number] [address] Jan, [facility] [address] [address] Dec, [facility] [address] [id number] [place] [address] Dec, [facility] [id number] [place] [address] Dec, [facility] [id number] [place] [address] November, Dental examination Z01.20 and Periodontitis K05.30 [facility] [id number] [place] [address] November, [facility] [id number] [place] [address] November, [facility] [id number] [place] [address] Oct, Encounter for Medicare annual wellness exam [...] hearing loss, unspecified hearing loss type H91.93 [facility] [address] [address] Oct, [facility] [id number] [place] [address] Oct, [facility] [address] [address] Sep, [facility] [id number] [place] [address] Aug, Anxiety F41.9 [place] [id number] [place] [address] Aug, Encounter for immunization Z23 [facility] [id number] [place] [address] Jul, History of cerebrovascular accident with hemiparesis or hemiplegia Z86.73 ; Dementia with behavioral disturbance, unspecified dementia type F03.91 ; Hypothyroidism (acquired) E03.9 ; Type 2 diabetes mellitus with diabetic neuropathy, 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 and 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 [facility] [id number] [place] [address] Jul, [facility] [id number] [place] [address] Jul, Type 2 diabetes mellitus with diabetic neuropathy, 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 ; Anxiety F41.9 ; Vascular dementia without behavioral disturbance F01.50 ; 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 ; Onychomycosis of great toe B35.1 ; 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 and Type 2 diabetes mellitus with complication, without long-term current use of insulin E11.8 [place] [id number] [place] [address] Jun, Hypertension I10 ; Anxiety F41.9 ; Dementia with behavioral disturbance, unspecified dementia type F03.91 ; 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 ; 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 ; Encounter for immunization Z23 ; Skin lesion of left leg L98.9 ; BMI 28.0-28.9,adult Z68.28 and Other chronic pain G89.29 [place] [facility] [id number] [place] [address] May, Lymphadenopathy, axillary R59.0 [place] [id number] [place] [address] May, [place] [id number] [place] [address] Apr, [facility] [id number] [place] [address] Apr, [facility] [id number] [place] [address] Apr, [facility] [id number] [place] [address] Apr, [facility] [id number] [place] [address] Mar, Anxiety F41.9 ; 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 and Dementia with behavioral disturbance, unspecified dementia type F03.91 [place] [id number] [place] [address] Mar, [facility] [id number] [place] [address] Mar, Diabetes E11.9 ; Hypothyroidism (acquired) E03.9 ; Hypertension I10 and Type 2 diabetes mellitus with diabetic neuropathy, 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 [place] [id number] [place] [address] Jan, [place] [id number] [place] [address] Dec, Anxiety F41.9 and 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 [place] [facility] [id number] [place] [address] November, [place] [id number] [place] [address] November, Chronic cough R05 and Cardiomegaly I51.7 [place] [id number] [place] [address] Oct, Medicare annual wellness visit, initial Z00.00 [...] seizures R56.1 and Encounter for immunization Z23 [place] [address] [address] Sep, [place] [address] [address] Jul, [place] [address] [address] Jul, [place] [address] [address] Jun, Anxiety F41.9 and 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 [address] Jun, Bronchitis J40 and Bilateral hearing loss, unspecified hearing loss type H91.93 [place] [address] [address] Jun, [place] [address] [address] Apr, [place] [address] [address] Apr, Encounter for immunization Z23 and Left breast mass N63.20 [place] [address] [address] Apr, [place] [address] [address] Mar, CVA (cerebral vascular accident) I63.9 ; Hypertension I10 ; 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 ; Type 2 diabetes mellitus with diabetic neuropathy, 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 and Left breast mass N63 [place] [address] [address] Mar, Mild episode of recurrent major depressive disorder F33.0 and Anxiety F41.9 [place] [id number] [place] [address] Mar, Breast mass, left N63 [facility] [id number] [place] [address] Mar, Breast mass, left N63 [facility] [id number] [place] [address] Feb, [place] [id number] [place] [address] Feb, [place] [id number] [place] [address] Feb, [place] [id number] [place] [address] Feb, [place] [id number] [place] [address] Feb, Onychomycosis B35.1 and Type 2 diabetes mellitus with complication E11.8 [place] [id number] [place] [address] Jan, Mild episode of recurrent major depressive disorder F33.0 and Anxiety F41.9 [place] [id number] [place] [address] Jan, [place] [id number] [place] [address] Dec, Onychomycosis due to dermatophyte B35.1 ; 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 ; Type 2 diabetes mellitus with diabetic neuropathy, 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 ; Falls frequently R29.6 ; Neuropathy G62.9 ; Dementia with behavioral disturbance, unspecified dementia type F03.91 ; Hypothyroidism (acquired) E03.9 and Left hand pain M79.642 [place] [id number] [place] [address] Dec, [facility] [id number] [place] [address] Dec, Hypothyroidism (acquired) E03.9 [facility] [id number] [place] [address] Dec, 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 [facility] [id number] [place] [address] November, Hypothyroidism (acquired) E03.9 [facility] [id number] [place] [address] Oct, [place] [id number] [place] [address] Oct, 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 [facility] [id number] [place] [address] Oct, [place] [id number] [place] [address] Oct, Dysuria R30.0 ; 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 ; Bilateral hearing loss, unspecified hearing loss type H91.93 and 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 [facility] [id number] [place] [address] Sep, [facility] [id number] [place] [address] Sep, Open wound of right great toe, initial encounter S91.101A [facility] [id number] [place] [address] Sep, Breast mass, left N63 ; Non-insulin dependent type 2 diabetes mellitus E11.9 and Vascular dementia without behavioral disturbance F01.50 [facility] [id number] [place] [address] Sep, [place] [id number] [place] [address] Jul, [place] [address] [address] Jul, Diabetes E11.9 ; Diaper dermatitis L22 ; Candidiasis of skin and nail B37.2 ; Neuropathy G62.9 ; Status post stroke Z86.73 ; Unsteadiness on feet R26.81 and 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 [place] [id number] [place] [address] May, [place] [address] [address] May, [place] [id number] [place] [address] May, [place] [address] [address] May, Dementia with behavioral disturbance, unspecified dementia type F03.91 [place] [id number] [place] [address] May, Dementia with behavioral disturbance, unspecified dementia type F03.91 ; Encounter for immunization Z23 and Diabetes E11.9 [place] [id number] [place] [address] May, [place] [id number] [place] [address] May, Neuropathy G62.9 [place] [id number] [place] [address] May, [place] [id number] [place] [address] Apr, Hypothyroidism (acquired) E03.9 [place] [id number] [place] [address] Apr, CVA (cerebral vascular accident) I63.9 ; Left hand weakness M62.81 and Neuropathy G62.9 [place] [id number] [place] [address] Apr, Hypokalemia E87.6 [place] [id number] [place] [address] Apr, Hypokalemia E87.6 [place] [address] [address] 22 Mar, 2016 Diabetes E11.9 ; Edema, unspecified type R60.9 ; Anxiety disorder, unspecified F41.9 ; Pain in left knee M25.562 ; Other chronic pain G89.29 and Status post stroke Z86.73 [place] [id number] [place] [address] Mar, [place] [address] [address] Mar, [place] [id number] [place] [address] Mar, Neuropathy G62.9 [place] [address] [address] Feb, Anorexia R63.0 and Neuropathy G62.9 [place] [id number] [place] [address] Jan, Diabetes E11.9 ; Neuropathy G62.9 ; Panic attack F41.0 ; Pain in left knee M25.562 and Hypertension 401.9 [place] [id number] [place] [address] Jan, Weakness R53.1 ; Fatigue, unspecified type R53.83 ; Falling episodes R29.6 and Neuropathy G62.9 [place] [id number] [place] [address] 07 Jan, 2016 Pain in left knee M25.562 [place] [address] [place] [address] Jan, [facility] [id number] [place] [address] Jan, [facility] [id number] [place] [address] Jan, [facility] [id number] [place] [address] Dec, Diabetes E11.9 ; Neuropathy G62.9 and Dementia F03.90 [facility] [id number] [place] [address] Dec, [facility] [id number] [place] [address] Dec, Neuropathy G62.9 ; Diabetes E11.9 ; Anxiety F41.9 and Constipation, unspecified constipation type K59.00 [facility] [id number] [place] [address] Dec, [facility] [id number] [place] [address] Dec, Anxiety F41.9 [facility] [id number] [place] [address] November, [facility] [address] [place] [address] November, Pain in left knee M25.562 ; Other chronic pain G89.29 ; Diabetes E11.9 and Left eye pain H57.12 [facility] [address] [address] November, [facility] [id number] [place] [address] November, Hearing loss, unspecified laterality H91.90 [facility] [address] [place] [address] November, [facility] [id number] [place] [address] November, [facility] [id number] [place] [address] November, Pain in right knee M25.561 [facility] [id number] [place] [address] November, [facility] [id number] [place] [address] Oct, [facility] [id number] [place] [address] Oct, [facility] [id number] [place] [address] Oct, Edema of left lower extremity R60.0 ; Diabetes E11.9 ; 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 I63.39 and Anxiety disorder, unspecified F41.9 [facility] [id number] [place] [address] Oct, Panic attack F41.0 [facility] [id number] [place] [address] Oct, [facility] [id number] [place] [address] Oct, CVA (cerebral vascular accident) I63.9 [facility] [id number] [place] [address] Oct, [facility] [id number] [place] [address] Oct, Diabetes E11.9 ; Hypertension I10 and Dementia F03.90 [facility] [id number] [place] [address] Sep, [facility] [id number] [place] [address] Sep, [facility] [id number] [address] Sep, Diabetes E11.9 ; 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 ; Onychomycosis B35.1 and Fatigue R53.83 [facility] [id number] [place] [address] Aug, [facility] [id number] [place] [address] Aug, [facility] [id number] [place] [address] Jul, [facility] [id number] [place] [address] Jul, [facility] [id number] [place] [address] Jun, 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 [facility] [id number] [place] [address] Jun, Anxiety disorder, unspecified F41.9 and Major depressive disorder, single episode, moderate F32.1 [facility] [id number] [place] [address] Jun, [facility] [id number] [place] [address] Jun, [facility] [id number] [place] [address] May, Left knee pain M25.562 [facility] [id number] [place] [address] 16 May, 2015 [facility] [id number] [place] [address] May, [facility] [id number] [place] [address] May, [facility] [id number] [place] [address] May, Hypertension I10 ; Diabetes E11.9 and Depression F32.9 [facility] [id number] [place] [address] May, [facility] [id number] [place] [address] Apr, Left knee pain M25.562 ; Type 2 diabetes mellitus with complication E11.8 and Encounter for immunization Z23 [facility] [address] [address] Apr, [facility] [address] [address] Apr, [facility] [address] [address] Mar, [facility] [address] [address] Mar, Silvestre stanley 727.51 [facility] [address] [address] Mar, [facility] [address] [address] Mar, [facility] [id number] [place] [address] Mar, [facility] [id number] [place] [address] Feb, [facility] [id number] [place] [address] Feb, [facility] [address] [address] Feb, Hypertension 401.9 and Diabetes 250.00 [facility] [id number] [place] [address] Jan, [facility] [address] [address] Jan, Diabetes 250.00 [facility] [address] [address] Jan, [facility] [id number] [place] [address] Jan, [facility] [id number] [place] [address] Dec, Diabetes 250.00 and Forgetfulness 780.99 [facility] [id number] [place] [address] Dec, [facility] [id number] [place] [id number] Dec, Diabetes mellitus 250.00 [facility] [id number] [place] [id number] Dec, [facility] [id number] [place] [id number] Dec, [facility] [id number] [place] [id number] Dec, [facility] [id number] [place] [id number] Dec, Diabetes 250.00 and Dysthymia 300.4 [facility] [id number] [place] [id number] Dec, [facility] [id number] [place] [id number] Dec, Grief 309.0 and Diabetes mellitus 250.00 [facility] [id number] [place] [id number] Oct, [facility] [id number] [place] [id number] Oct, [facility] [id number] [place] [id number] Jul, [facility] [place] [facility] [address] [id number] [place] [address] Jul, [facility] [place] [facility] [address] [id number] [place] [id number] Jul, [facility] [place] [facility] [address] [id number] [place] [address] Jul, [facility] [place] [facility] [address] [id number] [place] [address] Jul, [facility] [place] [facility] [address] [id number] [place] [address] May, [facility] [place] [facility] [address] [id number] [place] [address] May, [facility] [place] [facility] [address] [id number] [place] [address] Apr, [facility] [place] [facility] [address] [id number] [place] [address] Apr, [facility] [place] [facility] [address] [id number] [place] [address] Mar, [facility] [place] [facility] [address] [id number] [place] [address] Mar, [facility] [place] [facility] [address] [id number] [place] [address] Feb, [facility] [place] [facility] [address] [id number] [place] [address] Feb, [facility] [place] [facility] [address] [id number] [place] [address] Feb, [facility] [place] [facility] [address] [id number] [place] [address] Feb, [facility] [place] [facility] [address] [id number] [place] [address] Feb, [facility] [place] [facility] [address] [id number] [place] [address] Feb, [facility] [place] [facility] [address] [id number] [place] [address] November, [facility] [place] [facility] [address] [id number] [place] [place] [address] November, [facility] [place] [facility] [address] [id number] [place] [address] Sep, [facility] [place] [facility] [address] [id number] [place] [address] Sep, [facility] [place] [facility] [address] [id number] [place] [address] Sep, [facility] [place] [facility] [address] [id number] [place] [address] Sep, [facility] [place] [facility] [address] [id number] [place] [address] Sep, [facility] [place] [facility] [address] [id number] [place] [address] Sep, [facility] [place] [facility] [address] [id number] [place] [address] Sep, [facility] [place] [facility] [address] [id number] [place] [address] Sep, [facility] [place] [facility] [address] [id number] [place] [address] Aug, [facility] [place] [facility] [address] [id number] [place] [address] Aug, [facility] [place] [facility] [address] [id number] [place] [address] Jul, [facility] [place] [facility] [address] [id number] [place] [address] Jul, [facility] [place] [facility] [address] [id number] [place] [address] Jul, [facility] [place] [facility] [address] [id number] [place] [address] Jul, [facility] [address] [id number] [place] [address] Jun, [facility] [place] [facility] [address] [id number] [place] [address] Jun, [facility] [place] [facility] [address] [id number] [place] [address] May, [facility] [place] [facility] [address] [id number] [place] [address] May, [facility] [place] [facility] [address] [id number] [place] [address] May, [facility] [place] [facility] [address] [id number] [place] [address] May, [facility] [place] [facility] [address] [id number] [place] [address] May, [facility] [place] [facility] [address] [id number] [place] [address] May, [facility] [place] [facility] [address] [id number] [place] [address] Apr, [facility] [place] [facility] [address] [id number] [place] [address] Apr, [facility] [place] [facility] [address] [id number] [place] [address] Apr, [facility] [place] [facility] [address] [id number] [place] [address] Apr, [facility] [place] [facility] [address] [id number] [place] [address] Mar, [facility] [place] [facility] [address] [id number] [place] [address] Mar, [facility] [place] [facility] [address] [id number] [place] [address] Jan, [facility] [address] [id number] [place] [address] Jan, [facility] [place] [facility] [address] [id number] [place] [address] Jan, [facility] [place] [facility] [address] [id number] [place] [address] November, [facility] [place] [facility] [address] [id number] [place] [address] November, [facility] [address] [id number] [place] [address] November, [facility] [place] [facility] [address] [id number] [place] [address] November, [facility] [place] [facility] [address] [id number] [place] [address] Aug, [facility] [place] [facility] [address] [id number] [place] [address] Jul, [facility] [place] [facility] [address] [id number] [place] [address] Jul, [facility] [place] [facility] [address] [id number] [place] [address] Jul, [facility] [place] [facility] [address] [id number] [place] [address] Jun, [facility] [place] [facility] [address] [id number] [place] [address] Jun, [facility] [place] [facility] [address] [id number] [place] [address] May, [facility] [place] [facility] [address] [id number] [place] [address] May, [facility] [place] [facility] [address] [id number] [place] [address] Apr, [facility] [place] [facility] [address] [id number] [place] [address] Apr, [facility] [place] [facility] [address] [id number] [place] [address] Apr, [facility] [place] [facility] [address] [id number] [place] [address] Apr, [facility] [place] [facility] [address] [id number] [place] [address] Apr, [facility] [place] [facility] [address] [id number] [place] [address] Apr, [facility] [place] [facility] [address] [id number] [place] [address] Apr, [facility] [place] [facility] [address] [id number] [place] [address] Apr, [facility] [place] [facility] [address] [id number] [place] [address] Apr, [facility] [place] [facility] [address] [id number] [place] [address] Mar, [facility] [place] [facility] [address] [id number] [place] [address] Feb, [facility] [place] [facility] [address] [id number] [place] [address] November, [facility] [place] [facility] [address] [id number] [place] [address] November, [facility] [place] [facility] [address] [id number] [place] [address] November, [facility] [place] [facility] [address] [id number] [place] [address] November, [facility] [place] [facility] [address] [id number] [place] [address] Jun, [facility] [place] [facility] [address] [id number] [place] [address] Jun, [facility] [address] [id number] [address] May, [facility] [address] [id number] [address] May, [facility] [id number] [address] Apr, [facility] [id number] [address] Apr, [facility] [id number] [address] May, [facility] [id number] [address] Apr, [facility] [id number] [address] Apr, [facility] [id number] [address] Apr, [facility] [address] [id number] [address] Apr, IMMUNIZATIONS No Known Immunizations SOCIAL HISTORY Never Assessed REASON FOR VISIT PLAN OF CARE VITAL SIGNS Height 62 in 2014-03-07 Weight 192.6 lbs 2014-03-07 Temperature 97.5 degrees Fahrenheit Heart Rate 60 bpm 2014-03-07 Respiratory Rate 18 2014-03-07 Blood pressure systolic 192 mmHg Blood pressure diastolic 90 mmHg 2014-02 MEDICATIONS Unknown Medications RESULTS No Results PROCEDURES Procedure Date Ordered Result Body Site GLYCATED HEMOGLOBIN TEST Mar 07, 2014 URINALYSIS, AUTO, W/O SCOPE Mar 07, 2014 INSTRUCTIONS MEDICATIONS ADMINISTERED No Known Medications [...] Hospitalization History Post Stroke pt went to [facility] and then [facility] 10/15/15 Hospitalization History Hypotension, Wander ateral leg weakness--Via [facility] 01/15/16 Hospitalization History hypertension/chest pain 03/2017
--- OUTSIDE RECORDS SUMMARY | 2023-03-21 11:25 | XMS REPORT ---
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 87133040 Problem Left-sided muscle weakness M62.81 Active 655632800 Problem 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 Active 98235672 1 Problem Type 2 diabetes mellitus with diabetic neuropathy, 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 Active 43403621 Problem SNHL (sensory-neural hearing loss), 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 Active 877974164 Problem Bilateral hearing loss, unspecified hearing loss type H91.93 Active 63618787 Problem Hypertension I10 Active 67579867 Problem Panic attack F41.0 Active 938711934 Problem History of cerebrovascular accident with hemiparesis or hemiplegia Z86.73 Active 614019207 Problem Hypothyroidism (acquired) E03.9 Active 829877565 Problem Dementia with behavioral disturbance, unspecified dementia type F03.91 Active 0122445997461 Problem Other chronic pain G89.29 Active 10660 001 Problem 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 Active 399863960918 Problem Anxiety F41.9 Active 50625758 Problem Vascular dementia without behavioral disturbance F01.50 Active 375241563 ALLERGIES No Information ENCOUNTERS Encounter Location Date Diagnosis [facility] [address] [facility] [id number] [place] [address] Oct, Medicare annual wellness visit, initial Z00.00 [...] seizures R56.1 and Encounter for immunization Z23 [place] [address] [address] Sep, [place] [address] [place] [id number] Jul, [place] [address] [address] Jul, [place] [address] [address] Jun, Anxiety F41.9 and 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 [place] [address] [address] Jun, Bronchitis J40 and Bilateral hearing loss, unspecified hearing loss type H91.93 [place] [address] [address] Jun, [place] [address] [address] Apr, [place] [address] [address] Apr, Encounter for immunization Z23 and Left breast mass N63.20 [place] [address] [address] Apr, [place] [address] [address] Mar, CVA (cerebral vascular accident) I63.9 ; Hypertension I10 ; 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 ; Type 2 diabetes mellitus with diabetic neuropathy, 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 and Left breast mass N63 [facility] [id number] [place] [address] Mar, Mild episode of recurrent major depressive disorder F33.0 and Anxiety F41.9 [facility] [id number] [place] [address] Mar, Breast mass, left N63 [facility] [address] [place] [id number] [place] [address] Mar, Breast mass, left N63 [facility] [address] [place] [id number] [place] [address] Feb, [facility] [address] [place] [id number] [place] [address] Feb, [facility] [address] [place] [id number] [place] [address] Feb, [facility] [address] [place] [id number] [place] [address] Feb, [facility] [address] [place] [id number] [place] [address] Feb, Onychomycosis B35.1 and Type 2 diabetes mellitus with complication E11.8 [facility] [id number] [place] [address] Jan, Mild episode of recurrent major depressive disorder F33.0 and Anxiety F41.9 [facility] [id number] [place] [address] Jan, [facility] [id number] [place] [address] Dec, Onychomycosis due to dermatophyte B35.1 ; 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 ; Type 2 diabetes mellitus with diabetic neuropathy, 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 ; Falls frequently R29.6 ; Neuropathy G62.9 ; Dementia with behavioral disturbance, unspecified dementia type F03.91 ; Hypothyroidism (acquired) E03.9 and Left hand pain M79.642 [place] [id number] [place] [address] Dec, [facility] [address] [place] [id number] [place] [address] Dec, Hypothyroidism (acquired) E03.9 [place] [address] [place] [id number] [place] [address] Dec, 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 [place] [address] [place] [id number] [place] [address] November, Hypothyroidism (acquired) E03.9 [place] [address] [place] [id number] [place] [address] Oct, [place] [address] [place] [id number] [place] [address] Oct, 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 [place] [address] [place] [id number] [place] [address] Oct, [place] [address] [place] [id number] [place] [address] Oct, Dysuria R30.0 ; 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 ; Bilateral hearing loss, unspecified hearing loss type H91.93 and 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 [place] [address] [place] [id number] [place] [address] Sep, [facility] [address] [place] [id number] [place] [address] Sep, Open wound of right great toe, initial encounter S91.101A [place] [address] [address] Sep, Breast mass, left N63 ; Non-insulin dependent type 2 diabetes mellitus E11.9 and Vascular dementia without behavioral disturbance F01.50 [place] [address] [place] [id number] [place] [address] Sep, [place] [address] [place] [id number] [place] [address] Jul, [place] [address] [address] Jul, Diabetes E11.9 ; Diaper dermatitis L22 ; Candidiasis of skin and nail B37.2 ; Neuropathy G62.9 ; Status post stroke Z86.73 ; Unsteadiness on feet R26.81 and 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 [place] [address] [place] [id number] [place] [address] May, [place] [address] [address] May, [place] [address] [address] May, [place] [address] [address] May, Dementia with behavioral disturbance, unspecified dementia type F03.91 [place] [address] [place] [id number] [place] [address] May, Dementia with behavioral disturbance, unspecified dementia type F03.91 ; Encounter for immunization Z23 and Diabetes E11.9 [place] [address] [place] [id number] [place] [address] May, [place] [address] [address] May, Neuropathy G62.9 [place] [address] [place] [id number] [place] [address] May, [place] [address] [address] Apr, Hypothyroidism (acquired) E03.9 [place] [address] [place] [id number] [place] [address] 18 Oct, 2016 CVA (cerebral vascular accident) I63.9 ; Left hand weakness M62.81 and Neuropathy G62.9 [place] [address] [place] [id number] [place] [address] Apr, Hypokalemia E87.6 [place] [address] [place] [id number] [place] [address] Apr, Hypokalemia E87.6 [place] [address] [address] Mar, Diabetes E11.9 ; Edema, unspecified type R60.9 ; Anxiety disorder, unspecified F41.9 ; Pain in left knee M25.562 ; Other chronic pain G89.29 and Status post stroke Z86.73 [place] [address] [place] [id number] [place] [address] 15 Mar, 2016 [place] [address] [address] Mar, [place] [address] [place] [id number] [place] [address] Mar, Neuropathy G62.9 [place] [address] [place] [id number] [place] [address] Feb, Anorexia R63.0 and Neuropathy G62.9 [place] [address] [place] [id number] [place] [address] Jan, Diabetes E11.9 ; Neuropathy G62.9 ; Panic attack F41.0 ; Pain in left knee M25.562 and Hypertension 401.9 [place] [address] [place] [id number] [place] [address] Jan, Weakness R53.1 ; Fatigue, unspecified type R53.83 ; Falling episodes R29.6 and Neuropathy G62.9 [place] [address] [place] [id number] [place] [address] Jan, Pain in left knee M25.562 [place] [address] [place] [id number] [place] [address] Jan, [facility] [address] [place] [id number] [place] [address] Jan, [facility] [address] [place] [id number] [place] [address] Jan, [facility] [address] [place] [id number] [place] [address] Dec, Diabetes E11.9 ; Neuropathy G62.9 and Dementia F03.90 [facility] [address] [place] [id number] [place] [address] Dec, [facility] [address] [place] [id number] [place] [address] Dec, Neuropathy G62.9 ; Diabetes E11.9 ; Anxiety F41.9 and Constipation, unspecified constipation type K59.00 [facility] [address] [place] [id number] [place] [address] Dec, [facility] [address] [place] [id number] [place] [address] Dec, Anxiety F41.9 [facility] [address] [place] [id number] [place] [address] November, [facility] [address] [place] [id number] [place] [address] November, Pain in left knee M25.562 ; Other chronic pain G89.29 ; Diabetes E11.9 and Left eye pain H57.12 [facility] [address] [place] [id number] [place] [address] November, [facility] [address] [place] [id number] [place] [address] November, Hearing loss, unspecified laterality H91.90 [facility] [address] [place] [id number] [place] [address] November, [facility] [address] [address] November, [facility] [address] [place] [id number] [place] [address] November, Pain in right knee M25.561 [facility] [id number] [place] [address] November, [facility] [address] [place] [id number] [place] [address] Oct, [facility] [id number] [place] [address] Oct, [facility] [address] [place] [id number] [place] [address] Oct, Edema of left lower extremity R60.0 ; Diabetes E11.9 ; 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 I63.39 and Anxiety disorder, unspecified F41.9 [facility] [address] [place] [id number] [place] [address] Oct, Panic attack F41.0 [facility] [address] [place] [id number] [place] [address] Oct, [facility] [id number] [place] [address] Oct, CVA (cerebral vascular accident) I63.9 [facility] [id number] [place] [address] Oct, [facility] [id number] [place] [address] Oct, Diabetes E11.9 ; Hypertension I10 and Dementia F03.90 [facility] [address] [address] Sep, [facility] [id number] [place] [address] Sep, [facility] [address] [place] [id number] [place] [address] Sep, Diabetes E11.9 ; 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 ; Onychomycosis B35.1 and Fatigue R53.83 [facility] [address] [place] [id number] [place] [address] Aug, [facility] [address] [place] [id number] [place] [address] Aug, [facility] [address] [place] [id number] [place] [address] Jul, [facility] [address] [place] [id number] [place] [address] Jul, [facility] [address] [place] [id number] [place] [address] Jun, 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 [facility] [address] [place] [id number] [place] [address] Jun, Anxiety disorder, unspecified F41.9 and Major depressive disorder, single episode, moderate F32.1 [facility] [address] [place] [id number] [place] [address] Jun, [facility] [address] [place] [id number] [place] [address] Jun, [facility] [address] [place] [id number] [place] [address] May, Left knee pain M25.562 [facility] [address] [place] [id number] [place] [address] May, [facility] [address] [place] [id number] [place] [address] May, [facility] [address] [place] [id number] [place] [address] May, [facility] [address] [place] [id number] [place] [address] May, Hypertension I10 ; Diabetes E11.9 and Depression F32.9 [facility] [address] [place] [id number] [place] [address] May, [facility] [address] [place] [id number] [place] [address] Apr, Left knee pain M25.562 ; Type 2 diabetes mellitus with complication E11.8 and Encounter for immunization Z23 [facility] [address] [place] [id number] [place] [address] Apr, [facility] [address] [place] [id number] [place] [address] Apr, [facility] [address] [place] [id number] [place] [address] Mar, [facility] [address] [place] [id number] [place] [address] Mar, Silvestre stanley 727.51 [facility] [address] [place] [id number] [place] [address] Mar, [facility] [address] [place] [id number] [place] [address] Mar, [facility] [address] [place] [id number] [place] [address] Mar, [facility] [address] [place] [id number] [place] [address] Feb, [facility] [address] [place] [id number] [place] [address] Feb, [facility] [address] [place] [id number] [place] [address] Feb, Hypertension 401.9 and Diabetes 250.00 [facility] [id number] [place] [address] Jan, [facility] [address] [place] [id number] [place] [address] [place] [address] Jan, Diabetes 250.00 [facility] [address] [address] 14 Jan, 2015 [facility] [address] [id number] [address] Jan, [facility] [id number] [place] [address] Dec, Diabetes 250.00 and Forgetfulness 780.99 [facility] [address] [place] [id number] [place] [address] Dec, [facility] [address] [place] [id number] [place] [address] Dec, Diabetes mellitus 250.00 [facility] [address] [id number] [address] Dec, [facility] [id number] [place] [address] Dec, [facility] [address] [address] Dec, [facility] [id number] [place] [address] Dec, Diabetes 250.00 and Dysthymia 300.4 [facility] [address] [address] Dec, [facility] [address] [address] Dec, Grief 309.0 and Diabetes mellitus 250.00 [facility] [address] [address] Oct, [facility] [address] [address] Oct, [facility] [address] [address] Jul, [facility] [place] [facility] [address] [id number] [place] [address] Jul, [facility] [place] [facility] [address] [id number] [place] [address] Jul, [facility] [place] [facility] [address] [id number] [place] [address] Jul, [facility] [place] [facility] [address] [id number] [place] [address] Jul, [facility] [place] [facility] [address] [id number] [place] [address] May, [facility] [place] [facility] [address] [id number] [place] [address] May, [facility] [place] [facility] [address] [id number] [place] [address] Apr, [facility] [place] [facility] [address] [id number] [place] [address] Apr, [facility] [place] [facility] [address] [id number] [place] [address] Mar, [facility] [place] [facility] [address] [id number] [place] [address] Mar, [facility] [place] [facility] [address] [id number] [place] [address] Feb, [facility] [place] [facility] [address] [id number] [place] [address] Feb, [facility] [place] [facility] [address] [id number] [place] [address] Feb, [facility] [place] [facility] [address] [id number] [place] [address] Feb, [facility] [place] [facility] [address] [id number] [place] [address] Feb, [facility] [place] [facility] [address] [id number] [place] [address] Feb, [facility] [place] [facility] [address] [id number] [place] [address] November, [facility] [place] [facility] [address] [id number] [place] [address] November, [facility] [place] [facility] [address] [id number] [place] [address] Sep, [facility] [place] [facility] [address] [id number] [place] [address] Sep, [facility] [place] [facility] [address] [id number] [place] [address] Sep, [facility] [place] [facility] [address] [id number] [place] [address] Sep, [facility] [place] [facility] [address] [id number] [place] [address] Sep, [facility] [place] [facility] [address] [id number] [place] [address] Sep, [facility] [place] [facility] [address] [id number] [place] [address] Sep, [facility] [place] [facility] [address] [id number] [place] [address] Sep, [facility] [place] [facility] [address] [id number] [place] [address] Aug, [facility] [place] [facility] [address] [id number] [place] [address] Aug, [facility] [place] [facility] [address] [id number] [place] [address] Jul, [facility] [place] [facility] [address] [id number] [place] [address] Jul, [facility] [place] [facility] [address] [id number] [place] [address] Jul, [facility] [place] [facility] [address] [id number] [place] [address] Jul, [facility] [place] [facility] [address] [id number] [place] [address] Jun, [facility] [place] [facility] [address] [id number] [place] [address] Jun, [facility] [place] [facility] [address] [id number] [place] [address] May, [facility] [place] [facility] [address] [id number] [place] [address] May, [facility] [place] [facility] [address] [id number] [place] [address] May, [facility] [place] [facility] [address] [id number] [place] [address] May, [facility] [place] [facility] [address] [id number] [place] [address] May, [facility] [place] [facility] [address] [id number] [place] [address] May, [facility] [place] [facility] [address] [id number] [place] [address] Apr, [facility] [place] [facility] [address] [id number] [place] [address] Apr, [facility] [place] [facility] [address] [id number], [place] [address] 16 Apr, 2013 [facility] [place] [facility] [address] [id number] [place] [address] Apr, [facility] [place] [facility] [address] [id number] [place] [address] Mar, [facility] [place] [facility] [address] [id number] [place] [address] 27 Mar, 2013 [facility] [place] [facility] [address] [id number] [place] [address] Jan, [facility] [address] [id number] [place] [address] Jan, [facility] [place] [facility] [address] [id number] [place] [address] Jan, [facility] [address] [id number] [place] [address] November, [facility] [place] [facility] [address] [id number] [place] [address] November, [facility] [address] [id number] [place] [address] November, [facility] [place] [facility] [address] [id number] [place] [address] November, [facility] [address] [id number] [place] [address] Aug, [facility] [place] [facility] [address] [id number] [place] [address] Jul, [facility] [address] [id number] [place] [address] Jul, [facility] [place] [facility] [address] [id number] [place] [address] Jul, [facility] [address] [id number] [place] [address] Jun, [facility] [place] [facility] [address] [id number] [place] [address] Jun, [facility] [place] [facility] [address] [id number] [place] [address] May, [facility] [place] [facility] [address] [id number] [place] [address] May, [facility] [place] [facility] [address] [id number] [place] [address] Apr, [facility] [place] [facility] [address] [id number] [place] [address] Apr, [facility] [place] [facility] [address] [id number] [place] [address] Apr, [facility] [place] [facility] [address] [id number] [place] [address] Apr, [facility] [place] [facility] [address] [id number] [place] [address] Apr, [facility] [place] [facility] [address] [id number] [place] [address] Apr, [facility] [place] [facility] [address] [id number] [place] [address] Apr, [facility] [place] [facility] [address] [id number] [place] [address] Apr, [facility] [place] [facility] [address] [id number] [place] [address] Apr, [facility] [place] [facility] [address] [id number] [place] [address] Mar, [facility] [place] [facility] [address] [id number] [place] [address] Feb[facility] [place] [facility] [address] [id number] [place] [address] November, [facility] [place] [facility] [address] [id number] [place] [address] November, [facility] [place] [facility] [address] [id number] [place] [address] November, [facility] [place] [facility] [address] [id number] [place] [address] November, [facility] [place] [facility] [address] [id number] [place] [address] Jun, [facility] [place] [facility] [address] [id number] [place] [address] Jun, [facility] [address] [id number] [address] May, [facility] [address] [facility] [id number], [place] [address] May, [facility] [address] [facility] [id number], [place] [address] Apr, [facility] [address] [facility] [id number], [place] [address] Apr, [facility] [address] [facility] [id number], [place] [address] May, [facility] [address] [facility] [id number], [place] [address] Apr, [facility] [id number], [place] [address] Apr, [facility] [id number], [place] [address] Apr, [facility] [address] [id number], [place] [address] Apr, IMMUNIZATIONS No Known Immunizations SOCIAL HISTORY Never Assessed REASON FOR VISIT Medicare D PLAN OF CARE VITAL SIGNS MEDICATIONS Unknown [...] History Post Stroke pt went to [facility] and then [facility]/15 Hospitalization History Hypotension, Wander ateral leg weakness--Via [facility] 01/15/16 Hospitalization History hypertension/chest pain 03/2017
--- OUTSIDE RECORDS SUMMARY | 2023-03-21 11:25 | XMS REPORT ---
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 95606963 Problem Bilateral hearing loss, unspecified hearing loss type H91.93 Active 53585609 Problem 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 Active 19706711 1 Problem Left-sided muscle weakness M62.81 Active 863838178 Problem SNHL (sensory-neural hearing loss), 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 Active 803025281 Problem Panic attack F41.0 Active 534099398 Problem Other chronic pain G89.29 Active 19525 001 Problem History of cerebrovascular accident with hemiparesis or hemiplegia Z86.73 Active 983314909 Problem Hypertension I10 Active 31837951 Problem Dementia with behavioral disturbance, unspecified dementia type F03.91 Active 4535839518716 Problem 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 Active 882229706120 Problem Anxiety F41.9 Active 36857130 Problem Vascular dementia without behavioral disturbance F01.50 Active 869529888 Problem Hypothyroidism (acquired) E03.9 Active 718679963 Problem 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 Active 10486339 ALLERGIES No Information ENCOUNTERS Encounter Location Date Diagnosis [facility] [id number] [address] November, [facility] [id number] [address] November, Chronic cough R05 and Cardiomegaly I51.7 [place] [address] [address] Oct, Medicare annual wellness visit, initial Z00.00 [...] seizures R56.1 and Encounter for immunization Z23 [place] [address] [address] Sep, [place] [address] [address] Jul, [place] [address] [address] Jul, [place] [address] [address] Jun, Anxiety F41.9 and 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 [place] [address] [address] Jun, Bronchitis J40 and Bilateral hearing loss, unspecified hearing loss type H91.93 [place] [address] [address] Jun, [place] [address] [address] Apr, [place] [address] [address] Apr, Encounter for immunization Z23 and Left breast mass N63.20 [place] [address] [address] Apr, [facility] [id number] [place] [address] Mar, CVA (cerebral vascular accident) I63.9 ; Hypertension I10 ; 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 ; Type 2 diabetes mellitus with diabetic neuropathy, 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 and Left breast mass N63 [facility] [id number] [place] [address] Mar, Mild episode of recurrent major depressive disorder F33.0 and Anxiety F41.9 [facility] [id number] [place] [address] Mar, Breast mass, left N63 [facility] [id number] [place] [address] Mar, Breast mass, left N63 [facility] [id number] [place] [address] Feb, [facility] [id number] [place] [address] Feb, [facility] [id number] [place] [address] Feb, [facility] [id number] [place] [address] Feb, [facility] [id number] [place] [address] Feb, Onychomycosis B35.1 and Type 2 diabetes mellitus with complication E11.8 [facility] [id number] [place] [address] Jan, Mild episode of recurrent major depressive disorder F33.0 and Anxiety F41.9 [facility] [id number] [place] [address] Jan, [facility] [id number] [place] [address] Dec, Onychomycosis due to dermatophyte B35.1 ; 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 ; Type 2 diabetes mellitus with diabetic neuropathy, 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 ; Falls frequently R29.6 ; Neuropathy G62.9 ; Dementia with behavioral disturbance, unspecified dementia type F03.91 ; Hypothyroidism (acquired) E03.9 and Left hand pain M79.642 [place] [address] [address] Dec, [place] [address] [address] Dec, Hypothyroidism (acquired) E03.9 [place] [address] [address] Dec, 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 [place] [address] [address] November, Hypothyroidism (acquired) E03.9 [facility] [id number] [place] [address] Oct, [facility] [address] [address] Oct, 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 [place] [id number] [place] [address] Oct, [facility] [id number] [place] [address] Oct, Dysuria R30.0 ; 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 ; Bilateral hearing loss, unspecified hearing loss type H91.93 and 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 [facility] [id number] [place] [address] Sep, [facility] [id number] [place] [address] Sep, Open wound of right great toe, initial encounter S91.101A [place] [address] [place] [address] 13 Sep, 2016 Breast mass, left N63 ; Non-insulin dependent type 2 diabetes mellitus E11.9 and Vascular dementia without behavioral disturbance F01.50 [place] [id number] [place] [address] Sep, [place] [id number] [place] [address] Jul, [place] [id number] [place] [address] Jul, Diabetes E11.9 ; Diaper dermatitis L22 ; Candidiasis of skin and nail B37.2 ; Neuropathy G62.9 ; Status post stroke Z86.73 ; Unsteadiness on feet R26.81 and 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 [place] [id number] [place] [address] May, [place] [id number] [place] [address] May, [place] [id number] [place] [address] May, [place] [id number] [place] [address] May, Dementia with behavioral disturbance, unspecified dementia type F03.91 [place] [id number] [place] [address] 16 May, 2016 Dementia with behavioral disturbance, unspecified dementia type F03.91 ; Encounter for immunization Z23 and Diabetes E11.9 [place] [id number] [place] [address] May, [place] [id number] [place] [address] 08 May, 2016 Neuropathy G62.9 [place] [id number] [place] [address] May, [place] [address] [address] Apr, Hypothyroidism (acquired) E03.9 [place] [address] [address] 18 Apr, 2016 CVA (cerebral vascular accident) I63.9 ; Left hand weakness M62.81 and Neuropathy G62.9 [place] [address] [address] Apr, Hypokalemia E87.6 [place] [address] [address] Apr, Hypokalemia E87.6 [place] [address] [address] Mar, Diabetes E11.9 ; Edema, unspecified type R60.9 ; Anxiety disorder, unspecified F41.9 ; Pain in left knee M25.562 ; Other chronic pain G89.29 and Status post stroke Z86.73 [place] [address] [address] Mar, [place] [address] [address] Mar, [place] [address] [address] Mar, Neuropathy G62.9 [place] [id number] [place] [address] Feb, Anorexia R63.0 and Neuropathy G62.9 [place] [address] [id number] Jan, Diabetes E11.9 ; Neuropathy G62.9 ; Panic attack F41.0 ; Pain in left knee M25.562 and Hypertension 401.9 [place] [address] [id number] Jan, Weakness R53.1 ; Fatigue, unspecified type R53.83 ; Falling episodes R29.6 and Neuropathy G62.9 [facility] [id number] [place] [address] Jan, Pain in left knee M25.562 [facility] [id number] [place] [address] Jan, [facility] [id number] [place] [address] Jan, [facility] [id number] [place] [address] Jan, [facility] [id number] [place] [address] Dec, Diabetes E11.9 ; Neuropathy G62.9 and Dementia F03.90 [place] [id number] [place] [address] Dec, [place] [id number] [place] [address] Dec, Neuropathy G62.9 ; Diabetes E11.9 ; Anxiety F41.9 and Constipation, unspecified constipation type K59.00 [place] [id number] [place] [address] Dec, [facility] [id number] [place] [address] Dec, Anxiety F41.9 [place] [id number] [place] [address] November, [place] [id number] [place] [address] November, Pain in left knee M25.562 ; Other chronic pain G89.29 ; Diabetes E11.9 and Left eye pain H57.12 [place] [id number] [place] [address] November, [facility] [address], [place] [address] November, Hearing loss, unspecified laterality H91.90 [facility] [address], [place] [address] November, [facility] [id number] [place] [address] November, [facility] [id number] [place] [address] November, Pain in right knee M25.561 [facility] [id number] [place] [address] November, [facility] [id number] [place] [address] Oct, [facility] [id number] [place] [address] Oct, [facility] [address], [place] [address] Oct, Edema of left lower extremity R60.0 ; Diabetes E11.9 ; 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 I63.39 and Anxiety disorder, unspecified F41.9 [facility] [address], [place] [address] 14 Oct, 2015 Panic attack F41.0 [facility] [address], [place] [address] 14 Oct, 2015 [facility] [address] [place] [address] 13 Oct, 2015 CVA (cerebral vascular accident) I63.9 [facility] [address], [place] [address] Oct, [facility] [id number] [place] [address] Oct, Diabetes E11.9 ; Hypertension I10 and Dementia F03.90 [facility] [id number] [place] [address] Sep, [facility] [id number] [place] [address] Sep, [facility] [id number] [place] [address] Sep, Diabetes E11.9 ; 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 ; Onychomycosis B35.1 and Fatigue R53.83 [facility] [id number] [place] [address] Aug, [place] [id number] [place] [address] Aug, [facility] [id number] [place] [address] Jul, [facility] [id number] [place] [address] Jul, [facility] [id number] [place] [address] Jun, 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 [place] [id number] [place] [address] Jun, Anxiety disorder, unspecified F41.9 and Major depressive disorder, single episode, moderate F32.1 [facility] [address] [place] [address] Jun, [facility] [id number] [place] [address] Jun, [facility] [id number] [place] [address] May, Left knee pain M25.562 [facility] [id number] [place] [address] May, [facility] [id number] [place] [address] May, [facility] [address] [address] May, [facility] [address] [address] May, Hypertension I10 ; Diabetes E11.9 and Depression F32.9 [facility] [address] [address] May, [facility] [address] [address] Apr, Left knee pain M25.562 ; Type 2 diabetes mellitus with complication E11.8 and Encounter for immunization Z23 [facility] [address] [address] Apr, [facility] [address] [address] Apr, [facility] [address] [address] Mar, [facility] [id number] [place] [address] Mar, Silvestre stanley 727.51 [facility] [id number] [place] [address] Mar, [facility] [id number] [place] [address] Mar, [facility] [address] [address] Mar, [facility] [id number] [place] [address] Feb, [facility] [id number] [place] [address] Feb, [facility] [address], [place] [address] Feb, Hypertension 401.9 and Diabetes 250.00 [facility] [address], [place] [address] Jan, [facility] [address], [place] [address] Jan, Diabetes 250.00 [facility] [id number] [place] [address] Jan, [facility] [id number] [place] [address] Jan, [facility] [id number] [address] Dec, Diabetes 250.00 and Forgetfulness 780.99 [facility] [id number], [place] [address] Dec, [facility] [address], [place] [address] Dec, Diabetes mellitus 250.00 [facility] [address], [place] [address] Dec, [facility] [address], [place] [address] Dec, [facility] [address], [place] [address] Dec, [facility] [address], [place] [address] Dec, Diabetes 250.00 and Dysthymia 300.4 [facility] [address], [place] [address] Dec, [facility] [id number], [place] [address] Dec, Grief 309.0 and Diabetes mellitus 250.00 [facility] [place] [facility] [address] [id number] [place] [address] Oct, [facility] [place] [facility] [address] [id number] [place] [address] Oct, [facility] [place] [facility] [address] [id number] [place] [address] Jul, [facility] [place] [facility] [address] [id number] [place] [address] Jul, [facility] [place] [facility] [address] [id number] [place] [address] Jul, [facility] [place] [facility] [address] [id number] [place] [address] Jul, [facility] [place] [facility] [address] [facility] [id number] [place] [address] Jul, [facility] [place] [facility] [address] [id number] [place] [address] May, [facility] [place] [facility] [address] [id number] [place] [address] May, [facility] [place] [facility] [address] [id number] [place] [address] Apr, [facility] [place] [facility] [address] [id number] [place] [address] Apr, [facility] [place] [facility] [address] [id number] [address] Mar, [facility] [place] [facility] [address] [id number] [place] [address] Mar, [facility] [place] [facility] [address] [id number] [place] [address] Feb, [facility] [place] [facility] [address] [id number] [place] [address] Feb, [facility] [place] [facility] [address] [id number] [place] [address] Feb, [facility] [place] [facility] [address] [id number] [place] [address] Feb, [facility] [place] [facility] [address] [id number] [place] [address] Feb, [facility] [place] [facility] [address] [id number] [place] [address] Feb, [facility] [place] [facility] [address] [id number] [place] [address] November, [facility] [place] [facility] [address] [id number] [place] [address] November, [facility] [place] [facility] [address] [id number] [place] [address] Sep, [facility] [place] [facility] [address] [id number] [place] [address] Sep, [facility] [place] [facility] [address] [id number] [place] [address] Sep, [facility] [place] [facility] [address] [id number] [place] [address] Sep, [facility] [place] [facility] [address] [id number] [place] [address] Sep, [facility] [place] [facility] [address] [id number] [place] [address] Sep, [facility] [place] [facility] [address] [id number] [place] [address] Sep, [facility] [place] [facility] [address] [id number] [place] [address] Sep, [facility] [place] [facility] [address] [id number] [place] [address] Aug, [facility] [place] [facility] [address] [id number] [place] [address] Aug, [facility] [place] [facility] [address] [id number] [place] [address] Jul, [facility] [address] [id number] [place] [address] Jul, [facility] [place] [facility] [address] [id number] [place] [address] Jul, [facility] [address] [id number] [place] [address] Jul, [facility] [place] [facility] [address] [id number] [place] [address] Jun, [facility] [place] [facility] [address] [id number] [place] [address] Jun, [facility] [place] [facility] [address] [id number] [place] [address] May, [facility] [place] [facility] [address] [id number] [place] [address] May, [facility] [address] [id number] [place] [address] May, [facility] [place] [facility] [address] [id number] [place] [address] May, [facility] [place] [facility] [address] [id number] [place] [address] May, [facility] [place] [facility] [address] [id number] [place] [address] May, [facility] [place] [facility] [address] [id number] [place] [address] Apr, [facility] [place] [facility] [address] [id number] [place] [address] Apr, [facility] [place] [facility] [address] [id number] [place] [address] Apr, [facility] [place] [facility] [address] [id number] [place] [address] Apr, [facility] [address] [id number] [place] [address] Mar, [facility] [place] [facility] [address] [id number] [place] [address] Mar, [facility] [address] [id number] [place] [address] Jan, [facility] [place] [facility] [address] [id number] [place] [address] Jan, [facility] [address] [id number] [place] [address] Jan, [facility] [place] [facility] [address] [id number] [place] [address] November, [facility] [address] [id number] [place] [address] November, [facility] [address] [id number] [place] [address] November, [facility] [address] [id number] [place] [address] November, [facility] [address] [id number] [place] [address] Aug, [facility] [place] [facility] [address] [id number] [place] [address] Jul, [facility] [place] [facility] [address] [id number], [place] [address] Jul, [facility] [place] [facility] [address] [id number] [place] [address] Jul, [facility] [place] [facility] [address] [id number] [place] [address] Jun, [facility] [place] [facility] [address] [id number] [place] [address] Jun, [facility] [place] [facility] [address] [id number] [place] [address] May, [facility] [place] [facility] [address] [id number] [place] [address] May, [facility] [place] [facility] [address] [id number] [place] [address] Apr, [facility] [place] [facility] [address] [id number] [place] [address] Apr, [facility] [place] [facility] [address] [id number] [place] [address] Apr, [facility] [place] [facility] [address] [id number] [place] [address] Apr, [facility] [place] [facility] [address] [id number] [place] [address] Apr, [facility] [place] [facility] [address] [id number] [place] [address] Apr, [facility] [place] [facility] [address] [id number] [place] [address] Apr, [facility] [place] [facility] [address] [id number] [place] [address] Apr, [facility] [place] [facility] [address] [id number] [place] [address] Apr, [facility] [place] [facility] [address] [id number] [place] [address] Mar, [facility] [place] [facility] [address] [id number] [place] [address] Feb, [facility] [place] [facility] [address] [id number] [place] [address] November, [facility] [place] [facility] [address] [id number] [place] [address] November, [facility] [place] [facility] [address] [id number] [place] [address] November, [facility] [id number], [place] [address] November, [facility] [id number], [place] [address] Jun, [facility] [id number], [place] [address] Jun, [facility] [id number] [place] [address] May, [facility] [id number], [place] [address] May, [facility] [id number] [place] [id number] Apr, [facility] [id number] [address] Apr, [facility] [id number] [place] [id number] May, [facility] [id number] [address] Apr, [facility] [id number] [address] Apr, [facility] [id number] [place] [address] Apr, [facility] [id number] [address] Apr, IMMUNIZATIONS No Known Immunizations SOCIAL HISTORY Never Assessed REASON FOR VISIT Eye Exam PLAN OF CARE VITAL SIGNS MEDICATIONS Unknown [...] Hospitalization History Post Stroke pt went to [facility] and then Via [facility] 10/15/15 Hospitalization History Hypotension, Wander ateral leg weakness--Via [facility] 01/15/16 Hospitalization History hypertension/chest pain 03/2017
--- OUTSIDE RECORDS SUMMARY | 2023-03-21 11:25 | XMS REPORT ---
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 Active 596262980084 Problem Dementia with behavioral disturbance, unspecified dementia type F03.91 Active 0074192805074 Problem 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 Active 54306190 Problem Vascular dementia without behavioral disturbance F01.50 Active 361309515 Problem Type 2 diabetes mellitus with diabetic neuropathy, 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 Active 90165993 Problem 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 Active 94732163 1 Problem Bilateral hearing loss, unspecified hearing loss type H91.93 Active 60950763 Problem Diabetes E11.9 Active 453567493 Problem Falls frequently R29.6 Active 2931221 02 Problem History of cerebrovascular accident with hemiparesis or hemiplegia Z86.73 Active 988659752 Problem Type 2 diabetes mellitus with complication, without long-term current use of insulin E11.8 Active 09962066 Problem 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 Active 157031299 Problem Hypertension I10 Active 11750628 Problem SNHL (sensory-neural hearing loss), 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 Active 241415403 Problem Left-sided muscle weakness M62.81 Active 112362557 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 88933315 Problem Cardiomegaly I51.7 Active 0118681 ALLERGIES No Information ENCOUNTERS Encounter Location Date Diagnosis [facility] [id number] [address] Jan, [facility] [id number] [place] [address] Dec, [facility] [address] [address] Dec, [facility] [address] [address] Dec, [facility] [address] [address] November, Dental examination Z01.20 and Periodontitis K05.30 [facility] [id number] [place] [address] November, [facility] [id number] [place] [address] November, [facility] [id number] [place] [address] Oct, Encounter for Medicare annual wellness exam [...] hearing loss, unspecified hearing loss type H91.93 [facility] [address] [address] Oct, [facility] [address] [address] Oct, [facility] [id number] [place] [address] Sep, [facility] [address] [address] Aug, Anxiety F41.9 [facility] [id number] [place] [address] Aug, Encounter for immunization Z23 [facility] [id number] [place] [address] Jul, History of cerebrovascular accident with hemiparesis or hemiplegia Z86.73 ; Dementia with behavioral disturbance, unspecified dementia type F03.91 ; Hypothyroidism (acquired) E03.9 ; Type 2 diabetes mellitus with diabetic neuropathy, 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 and 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 [address] [address] [address] Jul, [place] [address] [address] Jul, Type 2 diabetes mellitus with diabetic neuropathy, 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 ; Anxiety F41.9 ; Vascular dementia without behavioral disturbance F01.50 ; 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 ; Onychomycosis of great toe B35.1 ; 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 and Type 2 diabetes mellitus with complication, without long-term current use of insulin E11.8 [facility] [id number] [place] [address] Jun, Hypertension I10 ; Anxiety F41.9 ; Dementia with behavioral disturbance, unspecified dementia type F03.91 ; 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 ; 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 ; Encounter for immunization Z23 ; Skin lesion of left leg L98.9 ; BMI 28.0-28.9,adult Z68.28 and Other chronic pain G89.29 [facility] [id number] [place] [address] May, Lymphadenopathy, axillary R59.[address] [address] May, [place] [address] [address] Apr, [place] [address] [address] Apr, [place] [address] [address] Apr, [facility] [id number] [place] [address] Apr, [facility] [id number] [place] [address] Mar, Anxiety F41.9 ; 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 and Dementia with behavioral disturbance, unspecified dementia type F03.91 [address] [address] [address] Mar, [facility] [facility] [id number] [place] [address] Mar, Diabetes E11.9 ; Hypothyroidism (acquired) E03.9 ; Hypertension I10 and Type 2 diabetes mellitus with diabetic neuropathy, 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 [address] [address] [place] [address] Jan, [facility] [id number] [place] [address] Dec, Anxiety F41.9 and 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 [facility] [id number] [address] November, [facility] [facility] [id number] [place] [address] November, Chronic cough R05 and Cardiomegaly I51.7 [place] [address] [address] Oct, Medicare annual wellness visit, initial Z00.00 [...] seizures R56.1 and Encounter for immunization Z23 [place] [facility] [id number] [place] [address] Sep, [place] [address] [address] Jul, [place] [address] [address] Jul, [place] [address] [address] Jun, Anxiety F41.9 and 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 [address] [address] [address] Jun, Bronchitis J40 and Bilateral hearing loss, unspecified hearing loss type H91.93 [facility] [id number] [place] [address] Jun, [place] [address] [address] Apr, [facility] [facility] [id number] [place] [address] Apr, Encounter for immunization Z23 and Left breast mass N63.20 [facility] [facility] [id number] [place] [address] Apr, [facility] [facility] [id number] [place] [address] Mar, CVA (cerebral vascular accident) I63.9 ; Hypertension I10 ; 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 ; Type 2 diabetes mellitus with diabetic neuropathy, 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 and Left breast mass N63 [place] [id number] [place] [address] Mar, Mild episode of recurrent major depressive disorder F33.0 and Anxiety F41.9 [facility] [address] [address] Mar, Breast mass, left N63 [facility] [address], [place] [address] Mar, Breast mass, left N63 [facility] [id number] [place] [address] Feb, [facility] [id number] [place] [address] Feb, [facility] [id number] [place] [address] Feb, [facility] [id number] [place] [address] Feb, [facility] [id number] [place] [address] Feb, Onychomycosis B35.1 and Type 2 diabetes mellitus with complication E11.8 [facility] [id number] [place] [address] Jan, Mild episode of recurrent major depressive disorder F33.0 and Anxiety F41.9 [address] [id number] [place] [address] Jan, [place] [address] [place] [address] Dec, Onychomycosis due to dermatophyte B35.1 ; 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 ; Type 2 diabetes mellitus with diabetic neuropathy, 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 ; Falls frequently R29.6 ; Neuropathy G62.9 ; Dementia with behavioral disturbance, unspecified dementia type F03.91 ; Hypothyroidism (acquired) E03.9 and Left hand pain M79.642 [facility] [address] [place] [address] Dec, [place] [id number] [place] [address] Dec, Hypothyroidism (acquired) E03.9 [facility] [id number] [place] [address] Dec, 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 [facility] [id number] [place] [address] November, Hypothyroidism (acquired) E03.9 [facility] [id number] [place] [address] Oct, [place] [address] [address] Oct, 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 [facility] [id number] [place] [address] Oct, [place] [address] [address] Oct, Dysuria R30.0 ; 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 ; Bilateral hearing loss, unspecified hearing loss type H91.93 and 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 [facility] [id number] [place] [address] Sep, [facility] [id number] [place] [address] Sep, Open wound of right great toe, initial encounter S91.101A [facility] [id number] [place] [address] Sep, Breast mass, left N63 ; Non-insulin dependent type 2 diabetes mellitus E11.9 and Vascular dementia without behavioral disturbance F01.50 [facility] [id number] [place] [address] Sep, [facility] [id number] [place] [address] Jul, [facility] [id number] [place] [address] Jul, Diabetes E11.9 ; Diaper dermatitis L22 ; Candidiasis of skin and nail B37.2 ; Neuropathy G62.9 ; Status post stroke Z86.73 ; Unsteadiness on feet R26.81 and 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 [address] [address] [address] May, [place] [address] [address] May, [place] [address] [address] May, [place] [address] [address] May, Dementia with behavioral disturbance, unspecified dementia type F03.91 [address] [address] [address] May, Dementia with behavioral disturbance, unspecified dementia type F03.91 ; Encounter for immunization Z23 and Diabetes E11.9 [address] [address] [address] May, [place] [address] [address] May, Neuropathy G62.9 [address] [address] [address] May, [address] [address] [address] Apr, Hypothyroidism (acquired) E03.9 [address] [address] [address] Apr, CVA (cerebral vascular accident) I63.9 ; Left hand weakness M62.81 and Neuropathy G62.9 [place] [address] [place] [address] Apr, Hypokalemia E87.6 [address] [address] [address] Apr, Hypokalemia E87.6 [facility] [id number] [place] [address] Mar, Diabetes E11.9 ; Edema, unspecified type R60.9 ; Anxiety disorder, unspecified F41.9 ; Pain in left knee M25.562 ; Other chronic pain G89.29 and Status post stroke Z86.73 [address] [address] [address] Mar, [facility] [id number] [place] [address] Mar, [place] [address] [address] Mar, Neuropathy G62.9 [place] [address] [address] Feb, Anorexia R63.0 and Neuropathy G62.9 [facility] [facility] [id number] [place] [address] Jan, Diabetes E11.9 ; Neuropathy G62.9 ; Panic attack F41.0 ; Pain in left knee M25.562 and Hypertension 401.9 [facility] [id number] [place] [address] Jan, Weakness R53.1 ; Fatigue, unspecified type R53.83 ; Falling episodes R29.6 and Neuropathy G62.9 [facility] [facility] [id number] [place] [address] Jan, Pain in left knee M25.562 [facility] [id number] [place] [address] Jan, [place] [id number] [place] [address] Jan, [facility] [id number] [place] [address] Jan, [facility] [id number] [place] [address] Dec, Diabetes E11.9 ; Neuropathy G62.9 and Dementia F03.90 [facility] [address] [address] Dec, [facility] [id number] [place] [address] Dec, Neuropathy G62.9 ; Diabetes E11.9 ; Anxiety F41.9 and Constipation, unspecified constipation type K59.00 [place] [id number] [place] [address] Dec, [facility] [id number] [place] [address] Dec, Anxiety F41.9 [facility] [id number] [place] [address] November, [facility] [id number] [place] [address] November, Pain in left knee M25.562 ; Other chronic pain G89.29 ; Diabetes E11.9 and Left eye pain H57.12 [facility] [id number] [place] [address] November, [facility] [id number] [place] [address] November, Hearing loss, unspecified laterality H91.90 [facility] [id number] [place] [address] November, [facility] [id number] [place] [address] November, [facility] [id number] [place] [address] November, Pain in right knee M25.561 [facility] [id number] [place] [address] November, [facility] [id number] [place] [address] Oct, [facility] [id number] [place] [address] Oct, [facility] [id number] [place] [address] Oct, Edema of left lower extremity R60.0 ; Diabetes E11.9 ; 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 I63.39 and Anxiety disorder, unspecified F41.9 [place] [id number] [place] [address] Oct, Panic attack F41.0 [facility] [facility] [id number] [place] [address] Oct, [facility] [id number] [place] [address] Oct, CVA (cerebral vascular accident) I63.9 [facility] [id number] [place] [address] Oct, [facility] [id number] [place] [address] Oct, Diabetes E11.9 ; Hypertension I10 and Dementia F03.90 [place] [address] [place] [address] Sep, [place] [id number] [place] [address] Sep, [facility] [address], [place] [address] Sep, Diabetes E11.9 ; 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 ; Onychomycosis B35.1 and Fatigue R53.83 [facility] [id number] [place] [address] Aug, [facility] [id number] [place] [address] Aug, [facility] [id number] [place] [address] Jul, [facility] [id number] [place] [address] Jul, [facility] [address] [address] Jun, 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 [facility] [id number] [place] [address] Jun, Anxiety disorder, unspecified F41.9 and Major depressive disorder, single episode, moderate F32.1 [facility] [id number] [place] [address] Jun, [facility] [id number] [place] [address] Jun, [facility] [id number] [place] [address] May, Left knee pain M25.562 [facility] [id number] [place] [address] May, [facility] [id number] [place] [address] May, [facility] [id number] [place] [address] May, [facility] [id number] [place] [address] May, Hypertension I10 ; Diabetes E11.9 and Depression F32.9 [facility] [id number] [place] [address] May, [facility] [id number] [place] [address] Apr, Left knee pain M25.562 ; Type 2 diabetes mellitus with complication E11.8 and Encounter for immunization Z23 [facility] [id number] [place] [address] Apr, [facility] [id number] [place] [address] Apr, [facility] [id number] [place] [address] Mar, [facility] [id number] [place] [address] Mar, Silvestre stanley 727.51 [facility] [id number] [place] [address] Mar, [facility] [id number] [place] [address] Mar, [facility] [id number] [place] [address] Mar, [facility] [id number] [place] [address] Feb, [facility] [id number] [place] [address] Feb, [facility] [address] [place] [address] Feb, Hypertension 401.9 and Diabetes 250.00 [facility] [id number] [place] [address] Jan, [facility] [id number] [place] [address] Jan, Diabetes 250.00 [facility] [id number] [address] 14 Jan, 2015 [facility] [address] [address] Jan, [facility] [address] [address] Dec, Diabetes 250.00 and Forgetfulness 780.99 [facility] [id number] [place] [address] Dec, [facility] [id number] [place] [address] Dec, Diabetes mellitus 250.00 [facility] [id number] [place] [address] Dec, [facility] [id number] [place] [address] Dec, [facility] [id number] [place] [address] Dec, [facility] [id number] [address] Dec, Diabetes 250.00 and Dysthymia 300.4 [facility] [id number] [address] Dec, [facility] [id number] [address] Dec, Grief 309.0 and Diabetes mellitus 250.00 [facility] [id number] [address] Oct, [facility] [id number] [address] Oct, [facility] [id number] [address] Jul, [facility] [id number] [address] Jul, [facility] [place] [facility] [address] [id number] [place] [address] Jul, [facility] [place] [facility] [address] [id number] [place] [address] Jul, [facility] [place] [facility] [address] [id number] [place] [address] Jul, [facility] [place] [facility] [address] [id number] [place] [address] May, [facility] [place] [facility] [address] [id number] [place] [address] May, [facility] [place] [facility] [address] [id number] [place] [address] Apr, [facility] [place] [facility] [address] [id number] [place] [address] Apr, [facility] [place] [facility] [address] [id number] [place] [address] Mar, [facility] [place] [facility] [address] [id number] [place] [address] Mar, [facility] [place] [facility] [address] [id number] [place] [address] Feb, [facility] [place] [facility] [address] [id number] [place] [address] Feb, [facility] [place] [facility] [address] [id number] [address] Feb, [facility] [place] [facility] [address] [id number] [place] [address] Feb, [facility] [place] [facility] [address] [id number] [place] [address] Feb, [facility] [place] [facility] [address] [id number] [place] [address] Feb, [facility] [place] [facility] [address] [id number] [place] [address] November, [facility] [address] [id number] [place] [address] November, [facility] [place] [facility] [address] [id number] [place] [address] Sep, [facility] [place] [facility] [address] [id number] [place] [address] Sep, [facility] [place] [facility] [address] [id number] [place] [address] Sep, [facility] [place] [facility] [address] [id number] [place] [address] Sep, [facility] [place] [facility] [address] [id number] [place] [address] Sep, [facility] [place] [facility] [address] [id number] [place] [address] Sep, [facility] [place] [facility] [address] [id number] [place] [address] Sep, [facility] [place] [facility] [address] [id number] [place] [address] Sep, [facility] [place] [facility] [address] [id number] [place] [address] Aug, [facility] [place] [facility] [address] [id number] [place] [address] Aug, [facility] [place] [facility] [address] [id number] [place] [address] Jul, [facility] [place] [facility] [address] [id number] [place] [address] Jul, [facility] [place] [facility] [address] [id number] [place] [address] Jul, [facility] [place] [facility] [address] [id number] [place] [address] Jul, [facility] [place] [facility] [address] [id number] [place] [address] Jun, [facility] [place] [facility] [address] [id number] [place] [address] Jun, [facility] [place] [facility] [address] [id number] [place] [address] May, [facility] [place] [facility] [address] [id number] [place] [address] May, [facility] [place] [facility] [address] [id number] [place] [address] May, [facility] [place] [facility] [address] [id number] [place] [address] May, [facility] [place] [facility] [address] [id number] [place] [address] May, [facility] [place] [facility] [address] [id number] [place] [address] May, [facility] [place] [facility] [address] [id number] [place] [address] Apr, [facility] [place] [facility] [address] [id number] [place] [address] Apr, [facility] [place] [facility] [address] [id number] [place] [address] Apr, [facility] [place] [facility] [address] [id number] [place] [address] 16 Apr, 2013 [facility] [place] [facility] [address] [id number] [place] [address] Mar, [facility] [place] [facility] [address] [id number] [place] [address] 27 Mar, 2013 [facility] [place] [facility] [address] [id number] [place] [address] Jan, [facility] [place] [facility] [address] [id number] [place] [address] Jan, [facility] [address] [id number] [place] [address] Jan, [facility] [place] [facility] [address] [id number] [place] [address] November, [facility] [place] [facility] [address] [id number] [place] [address] November, [facility] [place] [facility] [address] [id number] [place] [address] November, [facility] [address] [id number] [place] [address] November, [facility] [place] [facility] [address] [id number] [place] [address] Aug, [facility] [place] [facility] [address] [id number] [place] [address] Jul, [facility] [place] [facility] [address] [id number] [place] [address] Jul, [facility] [address] [id number] [place] [address] Jul, [facility] [place] [facility] [address] [id number] [place] [address] Jun, [facility] [place] [facility] [address] [id number], [place] [address] Jun, [facility] [place] [facility] [address] [id number], [place] [address] May, [facility] [place] [facility] [address] [id number] [place] [address] May, [facility] [place] [facility] [address] [id number] [place] [address] Apr, [facility] [place] [facility] [address] [id number] [place] [address] Apr, [facility] [place] [facility] [address] [id number] [place] [address] Apr, [facility] [address] [id number] [place] [address] Apr, [facility] [place] [facility] [address] [id number] [place] [address] Apr, [facility] [address] [id number] [place] [address] Apr, [facility] [place] [facility] [address] [id number] [place] [address] Apr, [facility] [address] [id number] [place] [address] Apr, [facility] [place] [facility] [address] [id number] [place] [address] Apr, [facility] [address] [id number] [place] [address] Mar, [facility] [address] [id number] [place] [address] Feb, [facility] [place] [facility] [address] [id number] [place] [address] November, [facility] [address] [id number] [place] [address] November, [facility] [place] [facility] [address] [id number] [place] [address] November, [facility] [place] [facility] [address] [id number] [place] [address] November, [facility] [place] [facility] [address] [id number] [place] [address] Jun, [facility] [place] [facility] [address] [id number] [place] [address] Jun, [facility] [place] [facility] [address] [id number] [place] [address] May, [facility] [address] [id number] [address] May, [facility] [address] [id number] [address] Apr, [facility] [address] [id number] [address] Apr, [facility] [id number] [address] May, [facility] [address] [id number] [address] Apr, [facility] [id number] [address] Apr, [facility] [id number], [place] [address] Apr, [facility] [address] [id number] [address] Apr, IMMUNIZATIONS Vaccine Route Administration Date Status FLU Vaccine (History) Unknown May 02, 2014 Admini stered SOCIAL HISTORY Never Assessed REASON FOR VISIT PLAN OF CARE VITAL SIGNS MEDICATIONS Unknown [...] Hospitalization History Post Stroke pt went to [facility] and then [facility] 10/15/15 Hospitalization History Hypotension, Wander ateral leg weakness--[facility] 01/15/16 Hospitalization History hypertension/chest pain 03/2017
--- OUTSIDE RECORDS SUMMARY | 2023-03-21 11:25 | XMS REPORT ---
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 Active 709429606636 Problem Dementia with behavioral disturbance, unspecified dementia type F03.91 Active 3276746033343 Problem 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 Active 15184950 Problem Vascular dementia without behavioral disturbance F01.50 Active 103695355 Problem Type 2 diabetes mellitus with diabetic neuropathy, 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 Active 32761080 Problem 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 Active 34682499 1 Problem Bilateral hearing loss, unspecified hearing loss type H91.93 Active 65290397 Problem Diabetes E11.9 Active 667444342 Problem Falls frequently R29.6 Active 4393730 02 Problem History of cerebrovascular accident with hemiparesis or hemiplegia Z86.73 Active 673960679 Problem Type 2 diabetes mellitus with complication, without long-term current use of insulin E11.8 Active 26525672 Problem 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 Active 104795242 Problem Hypertension I10 Active 03282750 Problem SNHL (sensory-neural hearing loss), 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 Active 391275774 Problem Left-sided muscle weakness M62.81 Active 270716766 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 96557956 Problem Cardiomegaly I51.7 Active 9335806 ALLERGIES No Information ENCOUNTERS Encounter Location Date Diagnosis [facility] [address] [facility] [id number] [address] Jan, [facility] [address], [place] [address] Dec, [facility] [address], [place] [address] Dec, [facility] [address], [place] [address] Dec, [facility] [id number] [place] [address] November, Dental examination Z01.20 and Periodontitis K05.30 [facility] [id number] [place] [address] November, [facility] [id number] [place] [address] November, [facility] [address] [place] [address] Oct, Encounter for Medicare annual wellness exam [...] hearing loss, unspecified hearing loss type H91.93 [facility] [id number] [address] Oct, [facility] [address], [place] [address] Oct, [facility] [address], [place] [address] Sep, [facility] [address], [place] [address] Aug, Anxiety F41.9 [place] [address] [place] [address] 04 Aug, 2018 Encounter for immunization Z23 [place] [address] [address] Jul, History of cerebrovascular accident with hemiparesis or hemiplegia Z86.73 ; Dementia with behavioral disturbance, unspecified dementia type F03.91 ; Hypothyroidism (acquired) E03.9 ; Type 2 diabetes mellitus with diabetic neuropathy, 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 and 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 [place] [address] [address] Jul, [place] [address] [address] Jul, Type 2 diabetes mellitus with diabetic neuropathy, 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 ; Anxiety F41.9 ; Vascular dementia without behavioral disturbance F01.50 ; 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 ; Onychomycosis of great toe B35.1 ; 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 and Type 2 diabetes mellitus with complication, without long-term current use of insulin E11.8 [place] [id number] [place] [address] Jun, Hypertension I10 ; Anxiety F41.9 ; Dementia with behavioral disturbance, unspecified dementia type F03.91 ; 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 ; 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 ; Encounter for immunization Z23 ; Skin lesion of left leg L98.9 ; BMI 28.0-28.9,adult Z68.28 and Other chronic pain G89.29 [place] [id number] [place] [address] May, Lymphadenopathy, axillary R59.0 [place] [id number] [place] [address] May, [facility] [id number] [place] [address] Apr, [place] [address], [place] [address] Apr, [facility] [id number] [place] [address] Apr, [facility] [address] [place] [address] Apr, [place] [id number] [place] [address] Mar, Anxiety F41.9 ; 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 and Dementia with behavioral disturbance, unspecified dementia type F03.91 [place] [id number] [place] [address] Mar, [place] [id number] [place] [address] Mar, Diabetes E11.9 ; Hypothyroidism (acquired) E03.9 ; Hypertension I10 and Type 2 diabetes mellitus with diabetic neuropathy, 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 [place] [address] [place] [address] Jan, [place] [id number] [place] [address] Dec, Anxiety F41.9 and 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 [place] [address] [place] [address] November, [place] [address] [place] [address] November, Chronic cough R05 and Cardiomegaly I51.7 [facility] [id number] [place] [address] Oct, Medicare annual wellness visit, initial Z00.00 [...] seizures R56.1 and Encounter for immunization Z23 [place] [id number] [place] [address] Sep, [place] [address] [place] [address] Jul, [place] [address] [address] Jul, [place] [address] [place] [address] Jun, Anxiety F41.9 and 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 [place] [address] [address] Jun, Bronchitis J40 and Bilateral hearing loss, unspecified hearing loss type H91.93 [place] [address] [address] Jun, [place] [id number] [place] [address] Apr, [place] [id number] [place] [address] Apr, Encounter for immunization Z23 and Left breast mass N63.20 [place] [id number] [place] [address] Apr, [place] [address] [address] Mar, CVA (cerebral vascular accident) I63.9 ; Hypertension I10 ; 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 ; Type 2 diabetes mellitus with diabetic neuropathy, 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 and Left breast mass N63 [place] [address] [address] [address] Mar, Mild episode of recurrent major depressive disorder F33.0 and Anxiety F41.9 [place] [address], [place] [address] Mar, Breast mass, left N63 [facility] [address], [place] [address] Mar, Breast mass, left N63 [place] [id number] [place] [address] Feb, [place] [id number] [place] [address] Feb, [place] [address] [place] [address] Feb, [place] [id number] [place] [address] Feb, [place] [address] [place] [address] Feb, Onychomycosis B35.1 and Type 2 diabetes mellitus with complication E11.8 [place] [address] [place] [address] Jan, Mild episode of recurrent major depressive disorder F33.0 and Anxiety F41.9 [place] [address], [place] [address] Jan, [place] [address] [place] [address] Dec, Onychomycosis due to dermatophyte B35.1 ; 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 ; Type 2 diabetes mellitus with diabetic neuropathy, 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 ; Falls frequently R29.6 ; Neuropathy G62.9 ; Dementia with behavioral disturbance, unspecified dementia type F03.91 ; Hypothyroidism (acquired) E03.9 and Left hand pain M79.642 [place] [address] [place] [address] Dec, [facility] [id number] [place] [address] Dec, Hypothyroidism (acquired) E03.9 [facility] [id number] [place] [address] Dec, 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 [facility] [id number] [place] [address] November, Hypothyroidism (acquired) E03.9 [facility] [id number] [place] [address] Oct, [facility] [id number] [place] [address] Oct, 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 [facility] [id number] [place] [address] Oct, [place] [id number] [place] [address] Oct, Dysuria R30.0 ; 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 ; Bilateral hearing loss, unspecified hearing loss type H91.93 and 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 [facility] [id number] [place] [address] Sep, [facility] [id number] [place] [address] Sep, Open wound of right great toe, initial encounter S91.101A [facility] [address] [address] Sep, Breast mass, left N63 ; Non-insulin dependent type 2 diabetes mellitus E11.9 and Vascular dementia without behavioral disturbance F01.50 [facility] [id number] [place] [address] Sep, [place] [id number] [place] [address] Jul, [place] [id number] [place] [address] Jul, Diabetes E11.9 ; Diaper dermatitis L22 ; Candidiasis of skin and nail B37.2 ; Neuropathy G62.9 ; Status post stroke Z86.73 ; Unsteadiness on feet R26.81 and 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 [place] [id number] [place] [address] May, [place] [address] [address] May, [place] [address] [address] May, [place] [address] [address] May, Dementia with behavioral disturbance, unspecified dementia type F03.91 [place] [id number] [place] [address] May, Dementia with behavioral disturbance, unspecified dementia type F03.91 ; Encounter for immunization Z23 and Diabetes E11.9 [place] [address] [id number] [place] [address] May, [place] [id number] [place] [address] May, Neuropathy G62.9 [place] [address] [id number] [place] [address] May, [place] [address] [address] Apr, Hypothyroidism (acquired) E03.9 [place] [id number] [place] [address] Apr, CVA (cerebral vascular accident) I63.9 ; Left hand weakness M62.81 and Neuropathy G62.9 [place] [address] [id number] [place] [address] Apr, Hypokalemia E87.6 [place] [address] [id number] [place] [address] Apr, Hypokalemia E87.6 [place] [address] [address] Mar, Diabetes E11.9 ; Edema, unspecified type R60.9 ; Anxiety disorder, unspecified F41.9 ; Pain in left knee M25.562 ; Other chronic pain G89.29 and Status post stroke Z86.73 [place] [id number] [place] [address] 15 Mar, 2016 [place] [address] [address] Mar, [place] [id number] [place] [address] Mar, Neuropathy G62.9 [place] [address] [address] Feb, Anorexia R63.0 and Neuropathy G62.9 [place] [address] [address] [place] [address] Jan, Diabetes E11.9 ; Neuropathy G62.9 ; Panic attack F41.0 ; Pain in left knee M25.562 and Hypertension 401.9 [place] [address] [place] [address] Jan, Weakness R53.1 ; Fatigue, unspecified type R53.83 ; Falling episodes R29.6 and Neuropathy G62.9 [place] [address] [place] [address] Jan, Pain in left knee M25.562 [place] [address] [address] Jan, [facility] [id number] [place] [address] Jan, [facility] [id number] [place] [address] Jan, [facility] [id number] [place] [address] Dec, Diabetes E11.9 ; Neuropathy G62.9 and Dementia F03.90 [facility] [id number] [place] [address] Dec, [facility] [id number] [place] [address] Dec, Neuropathy G62.9 ; Diabetes E11.9 ; Anxiety F41.9 and Constipation, unspecified constipation type K59.00 [facility] [id number] [place] [address] Dec, [facility] [id number] [place] [address] Dec, Anxiety F41.9 [facility] [id number] [place] [address] November, [facility] [id number] [place] [address] November, Pain in left knee M25.562 ; Other chronic pain G89.29 ; Diabetes E11.9 and Left eye pain H57.12 [facility] [address] [place] [address] November, [facility] [id number] [place] [address] November, Hearing loss, unspecified laterality H91.90 [facility] [id number] [place] [address] November, [facility] [id number] [place] [address] November, [facility] [address] [place] [address] November, Pain in right knee M25.561 [facility] [address] [place] [address] November, [facility] [id number] [place] [address] Oct, [facility] [id number] [place] [address] Oct, [facility] [address] [id number] [place] [address] Oct, Edema of left lower extremity R60.0 ; Diabetes E11.9 ; 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 I63.39 and Anxiety disorder, unspecified F41.9 [facility] [address] [place] [address] Oct, Panic attack F41.0 [facility] [address] [place] [address] Oct, [facility] [id number] [place] [address] Oct, CVA (cerebral vascular accident) I63.9 [facility] [address] [place] [address] Oct, [facility] [address] [place] [address] Oct, Diabetes E11.9 ; Hypertension I10 and Dementia F03.90 [facility] [id number] [place] [address] Sep, [facility] [address] [place] [address] Sep, [facility] [address] [place] [address] Sep, Diabetes E11.9 ; 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 ; Onychomycosis B35.1 and Fatigue R53.83 [facility] [address] [place] [address] Aug, [facility] [id number] [place] [address] Aug, [facility] [address] [place] [address] Jul, [facility] [address] [place] [address] Jul, [facility] [address] [place] [address] Jun, 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 [facility] [address] [place] [address] Jun, Anxiety disorder, unspecified F41.9 and Major depressive disorder, single episode, moderate F32.1 [facility] [id number] [place] [address] Jun, [facility] [address] [place] [address] Jun, [facility] [address] [place] [address] May, Left knee pain M25.562 [facility] [address] [place] [address] May, [facility] [id number] [place] [address] May, [facility] [id number] [place] [address] May, [facility] [id number] [place] [address] May, Hypertension I10 ; Diabetes E11.9 and Depression F32.9 [facility] [id number] [place] [address] May, [facility] [id number] [place] [address] Apr, Left knee pain M25.562 ; Type 2 diabetes mellitus with complication E11.8 and Encounter for immunization Z23 [facility] [id number] [place] [address] Apr, [facility] [id number] [place] [address] Apr, [facility] [id number] [place] [address] Mar, [facility] [id number] [place] [address] Mar, Silvestre stanley 727.51 [facility] [id number] [place] [address] Mar, [facility] [id number] [place] [address] Mar, [facility] [id number] [place] [address] Mar, [facility] [id number] [place] [address] Feb, [facility] [id number] [place] [address] Feb, [facility] [id number] [place] [address] Feb, Hypertension 401.9 and Diabetes 250.00 [facility] [id number] [place] [address] Jan, [facility] [id number] [place] [address] Jan, Diabetes 250.00 [facility] [address], [place] [address] Jan, [facility] [address], [place] [address] Jan, [facility] [address], [place] [address] Dec, Diabetes 250.00 and Forgetfulness 780.99 [facility] [address], [place] [address] Dec, [facility] [id number] [place] [address] Dec, Diabetes mellitus 250.00 [facility] [address], [place] [address] Dec, [facility] [id number] [place] [address] Dec, [facility] [address], [place] [address] Dec, [facility] [address], [place] [address] Dec, Diabetes 250.00 and Dysthymia 300.4 [facility] [address], [place] [address] Dec, [facility] [address], [place] [address] Dec, Grief 309.0 and Diabetes mellitus 250.00 [facility] [address], [place] [address] 14 Oct, 2014 [facility] [address], [place] [address] Oct, [facility] [address], [place] [address] Jul, [facility] [place] [facility] [address] [id number] [place] [address] Jul, [facility] [place] [facility] [address] [id number] [place] [address] Jul, [facility] [place] [facility] [address] [id number] [place] [address] Jul, [facility] [place] [facility] [address] [id number] [place] [address] Jul, [facility] [place] [facility] [address] [id number] [place] [address] May, [facility] [place] [facility] [address] [id number] [place] [address] May, [facility] [place] [facility] [address] [id number] [place] [address] Apr, [facility] [place] [facility] [address] [id number] [place] [address] Apr, [facility] [place] [facility] [address] [id number] [place] [address] Mar, [facility] [place] [facility] [address] [id number] [place] [address] Mar, [facility] [place] [facility] [address] [id number] [place] [address] Feb, [facility] [place] [facility] [address] [id number] [place] [address] Feb, [facility] [place] [facility] [address] [id number] [place] [address] Feb, [facility] [place] [facility] [address] [id number] [place] [address] Feb, [facility] [place] [facility] [address] [id number] [place] [address] Feb, [facility] [place] [facility] [address] [id number] [place] [address] Feb, [facility] [place] [facility] [address] [id number] [place] [address] November, [facility] [place] [facility] [address] [id number] [place] [address] November, [facility] [place] [facility] [address] [id number] [place] [address] Sep, [facility] [place] [facility] [address] [id number] [place] [address] Sep, [facility] [place] [facility] [address] [id number] [place] [address] Sep, [facility] [place] [facility] [address] [id number] [place] [address] Sep, [facility] [place] [facility] [address] [id number] [place] [address] Sep, [facility] [place] [facility] [address] [id number] [place] [address] Sep, [facility] [place] [facility] [address] [id number] [place] [address] Sep, [facility] [place] [facility] [address] [id number] [place] [address] Sep, [facility] [place] [facility] [address] [id number] [place] [address] Aug, [facility] [place] [facility] [address] [id number] [place] [address] Aug, [facility] [place] [facility] [address] [id number] [place] [address] Jul, [facility] [place] [facility] [address] [id number] [place] [address] Jul, [facility] [place] [facility] [address] [id number] [place] [address] Jul, [facility] [place] [facility] [address] [id number] [place] [address] Jul, [facility] [address] [id number] [place] [address] Jun, [facility] [address] [id number] [place] [address] Jun, [facility] [address] [id number] [place] [address] May, [facility] [address] [id number] [place] [address] May, [facility] [address] [id number] [place] [address] May, [facility] [address] [id number] [place] [address] May, [facility] [address] [id number] [place] [address] May, [facility] [address] [id number] [place] [address] May, [facility] [address] [id number] [place] [address] Apr, [facility] [address] [id number] [place] [address] Apr, [facility] [place] [facility] [address] [id number] [place] [address] 16 Apr, 2013 [facility] [place] [facility] [address] [id number] [place] [address] Apr, [facility] [place] [facility] [address] [id number] [place] [address] Mar, [facility] [place] [facility] [address] [id number] [place] [address] Mar, [facility] [place] [facility] [address] [id number] [place] [address] Jan, [facility] [place] [facility] [address] [id number] [place] [address] Jan, [facility] [address] [id number] [place] [address] Jan, [facility] [place] [facility] [address] [id number] [place] [address] November, [facility] [place] [facility] [address] [id number] [place] [address] November, [facility] [address] [id number] [place] [address] November, [facility] [place] [facility] [address] [id number] [place] [address] November, [facility] [address] [id number] [place] [address] Aug, [facility] [address] [id number] [place] [address] Jul, [facility] [place] [facility] [address] [id number] [place] [address] Jul, [facility] [address] [id number] [place] [address] Jul, [facility] [place] [facility] [address] [id number] [place] [address] Jun, [facility] [place] [facility] [address] [id number], [place] [address] Jun, [facility] [place] [facility] [address] [id number] [place] [address] May, [facility] [place] [facility] [address] [id number] [place] [address] May, [facility] [place] [facility] [address] [id number] [place] [address] Apr, [facility] [place] [facility] [address] [id number], [place] [address] Apr, [facility] [place] [facility] [address] [id number] [place] [address] Apr, [facility] [place] [facility] [address] [id number] [place] [address] Apr, [facility] [place] [facility] [address] [id number] [place] [address] Apr, [facility] [place] [facility] [address] [id number] [place] [address] Apr, [facility] [place] [facility] [address] [id number] [place] [address] Apr, [facility] [place] [facility] [address] [id number] [place] [address] Apr, [facility] [place] [facility] [address] [id number] [place] [address] Apr, [facility] [place] [facility] [address] [facility] [id number] [place] [address] Mar, [facility] [place] [facility] [address] [facility] [id number] [place] [address] Feb, [facility] [place] [facility] [address] [facility] [id number] [place] [address] November, [facility] [place] [facility] [address] [facility] [id number] [place] [address] November, [facility] [place] [facility] [address] [facility] [id number] [place] [address] November, [facility] [place] [facility] [address] [id number] [place] [address] November, [facility] [place] [facility] [address] [facility] [id number] [place] [address] Jun, [facility] [place] [facility] [address] [facility] [id number] [place] [address] Jun, [facility] [place] [facility] [address] [id number] [address] May, [facility] [address] [id number], [place] [address] May, [facility] [address] [facility] [id number], [place] [address] Apr, [facility] [id number], [place] [address] Apr, [facility] [address] [facility] [id number], [place] [address] May, [facility] [id number], [place] [address] Apr, [facility] [id number], [place] [address] Apr, [facility] [id number], [place] [address] Apr, [facility] [address] [id number], [place] [address] Apr, IMMUNIZATIONS No Known Immunizations SOCIAL HISTORY [...] Hospitalization History Post Stroke pt went to [facility] and then [facility] 10/15/15 Hospitalization History Hypotension, Wander ateral leg weakness--Via [facility] 01/15/16 Hospitalization History hypertension/chest pain 03/2017
--- OUTSIDE RECORDS SUMMARY | 2023-03-21 11:25 | XMS REPORT ---
Author Author Lady MENDEZ Organization 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 Active 43573016 Problem Vascular dementia without behavioral disturbance F01.50 Active 116614221 Problem Type 2 diabetes mellitus with diabetic neuropathy, 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 Active 41434306 Problem 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 Active 90114551 1 Problem Bilateral hearing loss, unspecified hearing loss type H91.93 Active 47653221 Problem Diabetes E11.9 Active 288986925 Problem Falls frequently R29.6 Active 2577544 02 Problem History of cerebrovascular accident with hemiparesis or hemiplegia Z86.73 Active 975356126 Problem Type 2 diabetes mellitus with complication, without long-term current use of insulin E11.8 Active 91849836 Problem 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 [address] [address] Jan, [facility] [address] [address] Dec, [facility] [address] [address] Dec, [facility] [id number] [place] [address] Dec, [facility] [id number] [place] [address] November, Dental examination Z01.[address] [facility] [id number] [place] [address] November, [facility] [id number] [place] [address] November, [facility] [id number] [place] [address] Oct, Encounter for Medicare annual wellness exam [...] hearing loss, unspecified hearing loss type H91.93 [facility] [address] [address] Oct, [facility] [id number] [address] Oct, [facility] [address], [place] [address] Sep, 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 [place] [id number] [place] [address] Jul, [facility] [facility] [id number] [place] [address] Jul, Type 2 diabetes mellitus with diabetic neuropathy, 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 ; Anxiety F41.9 ; Vascular dementia without behavioral disturbance F01.50 ; 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 ; Onychomycosis of great toe B35.1 ; 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 and Type 2 diabetes mellitus with complication, without long-term current use of insulin E11.8 [place] [id number] [place] [address] Jun, Hypertension I10 ; Anxiety F41.9 ; Dementia with behavioral disturbance, unspecified dementia type F03.91 ; 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 [id number] [place] [address] Apr, [facility] [address] [address] Apr, [place] [id number] [place] [address] Apr, [facility] [id number] [place] [address] Mar, Anxiety F41.9 ; 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 and Dementia with behavioral disturbance, unspecified dementia type F03.91 [place] [id number] [place] [address] Mar, [facility] [id number] [place] [address] Mar, Diabetes E11.9 ; Hypothyroidism (acquired) E03.9 ; Hypertension I10 and Type 2 diabetes mellitus with diabetic neuropathy, 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 [place] [id number] [place] [address] Jan, [place] [id number] [place] [address] Dec, Anxiety F41.9 and 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 [place] [address] [address] November, [place] [address] [place] [address] November, Chronic cough R05 and Cardiomegaly I51.7 [place] [address] [address] Oct, Medicare annual wellness visit, initial Z00.00 [...] seizures R56.1 and Encounter for immunization Z23 [place] [address] [place] [id number] Sep, [place] [address] [address] Jul, [place] [address] [address] Jul, [place] [address] [address] Jun, Anxiety F41.9 and 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 [place] [address] [address] Jun, Bronchitis J40 and Bilateral hearing loss, unspecified hearing loss type H91.93 [place] [address] [address] Jun, [place] [address] [address] Apr, [place] [address] [address] Apr, Encounter for immunization Z23 and Left breast mass N63.20 [place] [address] [address] Apr, [place] [address] [place] [id number] Mar, CVA (cerebral vascular accident) I63.9 ; Hypertension I10 ; 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 [address] [address] Mar, Mild episode of recurrent major depressive disorder F33.[address] [facility] [address] [address] Mar, Breast mass, left N63 [facility] [id number] [place] [address] Mar, Breast mass, left N63 [facility] [id number] [place] [address] Feb, [facility] [id number] [place] [address] Feb, [facility] [id number] [place] [address] Feb, [facility] [id number] [place] [address] Feb, [facility] [id number] [place] [address] Feb, Onychomycosis B35.1 and Type 2 diabetes mellitus with complication E11.8 [facility] [id number] [place] [address] Jan, Mild episode of recurrent major depressive disorder F33.[address] [facility] [address] [address] Jan, 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 [id number] [place] [address] Dec, [facility] [id number] [place] [address] Dec, Hypothyroidism (acquired) E03.9 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 [place] [id number] [place] [address] November, Hypothyroidism (acquired) E03.9 [place] [id number] [place] [address] Oct, [place] [id number] [place] [address] Oct, 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 [place] [id number] [place] [address] Oct, [place] [id number] [place] [address] Oct, Dysuria R30.0 ; 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 [id number] [place] [address] Sep, [facility] [id number] [place] [address] Sep, Open wound of right great toe, initial encounter S91.101A [place] [address] [address] Sep, Breast mass, left N63 ; Non-insulin dependent type 2 diabetes mellitus E11.9 and Vascular dementia without behavioral disturbance F01.50 [place] [id number] [place] [address] Sep, [place] [id number] [place] [address] Jul, [place] [address] [address] Jul, Diabetes E11.9 ; Diaper dermatitis L22 ; Candidiasis of skin and nail B37.2 ; Neuropathy G62.9 ; Status post stroke Z86.73 ; Unsteadiness on feet R26.81 and 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 [place] [address] [address] May, [place] [address] [address] May, [place] [address] [address] May, [place] [address] [address] May, Dementia with behavioral disturbance, unspecified dementia type F03.91 [place] [address] [address] May, Dementia with behavioral disturbance, unspecified dementia type F03.91 ; Encounter for immunization Z23 and Diabetes E11.9 [place] [id number] [place] [address] May, [place] [address] [address] May, Neuropathy G62.9 [place] [address] [address] May, [place] [address] [address] Apr, Hypothyroidism (acquired) E03.9 [place] [address] [address] Apr, CVA (cerebral vascular accident) I63.9 ; Left hand weakness M62.81 and Neuropathy G62.9 [place] [address] [address] Apr, Hypokalemia E87.6 [place] [id number] [place] [address] Apr, Hypokalemia E87.6 [place] [address] [address] Mar, Diabetes E11.9 ; Edema, unspecified type R60.9 ; Anxiety disorder, unspecified F41.9 ; Pain in left knee M25.562 ; Other chronic pain G89.29 and Status post stroke Z86.73 [place] [address] [address] Mar, [place] [address] [address] Mar, [place] [address] [address] Mar, Neuropathy G62.9 [place] [address] [place] [id number] Feb, Anorexia R63.0 and Neuropathy G62.9 [place] [id number] [place] [address] Jan, Diabetes E11.9 ; Neuropathy G62.9 ; Panic attack F41.0 ; Pain in left knee M25.562 and Hypertension 401.9 [place] [address] [address] Jan, Weakness R53.1 ; Fatigue, unspecified type R53.83 ; Falling episodes R29.6 and Neuropathy G62.9 [place] [id number] [place] [address] Jan, Pain in left knee M25.562 [facility] [id number] [place] [address] Jan, [facility] [address] [address] Jan, [facility] [id number] [place] [address] Jan, [facility] [address] [address] Dec, Diabetes E11.9 ; Neuropathy G62.[address] [facility] [address] [address] Dec, [facility] [id number] [place] [address] Dec, Neuropathy G62.9 ; Diabetes E11.9 ; Anxiety F41.9 and Constipation, unspecified constipation type K59.00 [facility] [id number] [place] [address] Dec, [facility] [id number] [place] [address] Dec, Anxiety F41.9 [facility] [id number] [place] [address] November, [facility] [id number] [place] [address] November, Pain in left knee M25.562 ; Other chronic pain G89.29 ; Diabetes E11.9 and Left eye pain H57.12 [facility] [id number] [place] [address] November, [facility] [id number] [place] [address] November, Hearing loss, unspecified laterality H91.90 [facility] [id number] [place] [address] November, [facility] [address] [address] November, [facility] [id number] [place] [address] November, Pain in right knee M25.561 [facility] [id number] [place] [address] November, [facility] [id number] [place] [address] Oct, [facility] [id number] [place] [address] Oct, [facility] [id number] [place] [address] Oct, Edema of left lower extremity R60.0 ; Diabetes E11.9 ; 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 I63.39 and Anxiety disorder, unspecified F41.9 [facility] [address] [address] Oct, Panic attack F41.0 [facility] [id number] [place] [address] Oct, [facility] [address] [address] Oct, CVA (cerebral vascular accident) I63.9 [facility] [address] [address] Oct, [facility] [address], [place] [address] Oct, Diabetes E11.9 ; Hypertension I10 and Dementia F03.90 [facility] [address], [place] [address] Sep, [facility] [id number] [place] [address] Sep, 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 [address] [address] Aug, [facility] [id number] [place] [address] Aug, [facility] [id number] [place] [address] Jul, [facility] [id number] [place] [address] Jul, 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 [id number] [place] [address] Jun, Anxiety disorder, unspecified F41.9 and Major depressive disorder, single episode, moderate F32.1 [facility] [id number] [place] [address] Jun, [facility] [address], [place] [address] Jun, [facility] [id number] [place] [address] May, Left knee pain M25.562 [facility] [id number] [place] [address] May, [facility] [id number] [place] [address] May, [facility] [address] [address] May, [facility] [id number] [place] [address] May, Hypertension I10 ; Diabetes E11.[address] [facility] [id number] [place] [address] May, [facility] [id number] [place] [address] Apr, Left knee pain M25.562 ; Type 2 diabetes mellitus with complication E11.8 and Encounter for immunization Z23 [facility] [id number] [place] [address] Apr, [facility] [id number] [place] [address] Apr, [facility] [id number] [place] [address] Mar, [facility] [id number] [place] [address] Mar, Silvestre stanley 727.51 [facility] [id number] [place] [address] Mar, [facility] [id number] [place] [address] Mar, [facility] [id number] [place] [address] Mar, [facility] [id number] [place] [address] Feb, [facility] [id number] [place] [address] Feb, [facility] [id number] [place] [address] Feb, Hypertension 401.[address] [facility] [address] [address] Jan, [facility] [address], [place] [address] 15 Jan, [address] [facility] [address] [address] 14 Jan, 2015 [facility] [address], [place] [address] Jan, [facility] [id number] [place] [address] Dec, Diabetes 250.[address] [facility] [address] [address] Dec, [facility] [id number] [place] [address] Dec, Diabetes mellitus 250.00 [facility] [id number] [place] [address] Dec, [facility] [id number] [address] Dec, [facility] [id number] [place] [address] Dec, [facility] [id number] [address] 16 Dec, 2014 Diabetes 250.[address] [facility] [id number] [address] Dec, [facility] [id number] [address] 09 Dec, 2014 Grief 309.0 and Diabetes mellitus 250.00 [facility] [id number] [address] 14 Oct, 2014 [facility] [id number] [address] Oct, [facility] [id number] [address] Jul, [facility] [place] [facility] [address] [id number] [place] [address] Jul, [facility] [place] [facility] [address] [id number] [place] [address] Jul, [facility] [place] [facility] [address] [id number] [place] [address] Jul, [facility] [place] [facility] [address] [id number] [place] [address] Jul, [facility] [place] [facility] [address] [id number] [place] [address] May, [facility] [place] [facility] [address] [id number] [place] [address] May, [facility] [place] [facility] [address] [id number] [place] [address] Apr, [facility] [place] [facility] [address] [id number] [place] [address] Apr, [facility] [place] [facility] [address] [id number] [place] [address] Mar, [facility] [place] [facility] [address] [id number] [place] [address] Mar, [facility] [place] [facility] [address] [id number] [place] [address] Feb, [facility] [place] [facility] [address] [id number] [place] [address] Feb, [facility] [place] [facility] [address] [id number] [place] [address] Feb, [facility] [place] [facility] [address] [id number] [place] [address] Feb, [facility] [place] [facility] [address] [id number] [place] [address] Feb, [facility] [place] [facility] [address] [id number] [place] [address] Feb, [facility] [address] [id number] [place] [address] November, [facility] [place] [facility] [address] [id number] [place] [address] November, [facility] [address] [id number] [place] [address] Sep, [facility] [place] [facility] [address] [id number] [place] [address] Sep, [facility] [place] [facility] [address] [id number] [place] [address] Sep, [facility] [place] [facility] [address] [id number] [place] [address] Sep, [facility] [place] [facility] [address] [id number] [place] [address] Sep, [facility] [address] [id number] [place] [address] Sep, [facility] [place] [facility] [address] [id number] [place] [address] Sep, [facility] [place] [facility] [address] [id number] [place] [address] Sep, [facility] [place] [facility] [address] [id number] [place] [address] Aug, [facility] [place] [facility] [address] [id number] [place] [address] Aug, [facility] [place] [facility] [address] [id number] [place] [address] Jul, [facility] [place] [facility] [address] [id number] [place] [address] Jul, [facility] [place] [facility] [address] [id number] [place] [address] Jul, [facility] [place] [facility] [address] [id number] [place] [address] Jul, [facility] [place] [facility] [address] [id number] [place] [address] Jun, [facility] [place] [facility] [address] [id number] [place] [address] Jun, [facility] [place] [facility] [address] [id number] [place] [address] May, [facility] [place] [facility] [address] [id number] [place] [address] May, [facility] [place] [facility] [address] [id number] [place] [address] May, [facility] [place] [facility] [address] [id number] [place] [address] May, [facility] [place] [facility] [address] [id number], [place] [address] May, [facility] [place] [facility] [address] [id number] [place] [address] May, [facility] [place] [facility] [address] [id number], [place] [address] Apr, [facility] [place] [facility] [address] [id number], [place] [address] Apr, [facility] [place] [facility] [address] [id number], [place] [address] Apr, [facility] [place] [facility] [address] [id number], [place] [address] Apr, [facility] [place] [facility] [address] [id number], [place] [address] 27 Mar, 2013 [facility] [place] [facility] [address] [id number], [place] [address] Mar, [facility] [place] [facility] [address] [id number] [place] [address] Jan, [facility] [address] [id number] [place] [address] Jan, [facility] [place] [facility] [address] [id number] [place] [address] Jan, [facility] [address] [id number] [place] [address] November, [facility] [place] [facility] [address] [id number] [place] [address] November, [facility] [place] [facility] [address] [id number] [place] [address] November, [facility] [place] [facility] [address] [id number] [place] [address] November, [facility] [address] [id number] [place] [address] Aug, [facility] [place] [facility] [address] [id number] [place] [address] Jul, [facility] [place] [facility] [address] [id number] [place] [address] Jul, [facility] [place] [facility] [address] [id number] [place] [address] Jul, [facility] [place] [facility] [address] [id number] [place] [address] Jun, [facility] [place] [facility] [address] [id number] [place] [address] Jun, [facility] [place] [facility] [address] [id number] [place] [address] May, [facility] [place] [facility] [address] [id number] [place] [address] May, [facility] [place] [facility] [address] [id number] [place] [address] Apr, [facility] [place] [facility] [address] [id number] [place] [address] Apr, [facility] [place] [facility] [address] [id number] [place] [address] Apr, [facility] [place] [facility] [address] [id number] [place] [address] Apr, [facility] [place] [facility] [address] [id number] [place] [address] Apr, [facility] [place] [facility] [address] [id number] [place] [address] Apr, [facility] [place] [facility] [address] [id number] [place] [address] Apr, [facility] [place] [facility] [address] [id number] [place] [address] Apr, [facility] [place] [facility] [address] [id number] [place] [address] Apr, [facility] [place] [facility] [address] [id number] [place] [address] Mar, [facility] [place] [facility] [address] [id number] [place] [address] Feb, [facility] [place] [facility] [address] [id number] [place] [address] November, [facility] [place] [facility] [address] [id number] [place] [address] November, [facility] [place] [facility] [address] [id number] [place] [address] November, [facility] [place] [facility] [address] [id number] [place] [address] November, [facility] [place] [facility] [address] [id number] [place] [address] Jun, [facility] [place] [facility] [address] [id number], [place] [address] Jun, [facility] [address] [id number] [address] May, [facility] [id number] [address] May, [facility] [id number] [address] Apr, [facility] [id number] [address] Apr, [facility] [id number] [address] May, [facility] [id number] [address] Apr, [facility] [id number] [address] Apr, [facility] [id number], [place] [address] Apr, [facility] [address] [id number], [place] [address] Apr, IMMUNIZATIONS No Known Immunizations SOCIAL HISTORY Never Assessed REASON FOR VISIT Medication Management -- jacquelin becerra PLAN OF CARE Activity Details VITAL SIGNS Height 62 in 2018-08-11 Weight 157.0 lbs 2018-08-11 Temperature 98.3 degrees Fahrenheit Heart Rate 70 bpm 2018-08-11 Respiratory Rate 18 2018-08-11 BMI 28.71 kg/m2 2018-08-11 Blood pressure systolic 122 mmHg Blood pressure diastolic 76 mmHg 2018-07 MEDICATIONS Medication Instructions Dosage Frequency Start Date End Date Duration Status Bydureon 2 MG Subcutaneous once weekly Inject 2mg 28 Active Wheelchair - as directed Jan, Active BusPIRone HCl 10 MG Orally Twice a day 1 tablet 12h 30 days Active Norvasc 10 mg Orally Once a day 1 tablet 24h 90 Active Levetiracetam 500 MG TAKE ONE TABLET BY MOUTH TWICE DAILY 90 Active Aspirin 81 MG Orally Once a day 1 tablet 24h 30 Inocencio, 2019 30 day(s) Active Aricept 5 MG TAKE ONE TABLET BY MOUTH ONCE DAILY AT BEDTIME 30 Active Levothyroxine Sodium 50 MCG TAKE ONE TABLET BY MOUTH ONCE DAILY IN THE MORNING ON AN EMPTY STOMACH 30 Active Zoloft 50 mg Orally Once a day 1 tablet in the morning 24h Jul, 30 day(s) Active Atorvastatin Calcium 40 MG TAKE ONE TABLET BY MOUTH ONCE DAILY AT BEDTIME 90 Not-Taki ng Seroquel 25 MG Orally Once a day 1 tablet 24h Jul, 30 day(s) Active RESULTS No Results PROCEDURES Procedure Date Ordered Result Body Site [facility] VISIT ESTABLISHED PATIENT Aug 11, 2018 INSTRUCTIONS MEDICATIONS ADMINISTERED No Known Medications MEDICAL [...] Hospitalization History Post Stroke pt went to [facility] and then [facility] 10/15/15 Hospitalization History Hypotension, Wander ateral leg weakness--Via [facility] 01/15/16 Hospitalization History hypertension/chest pain 03/2017
--- OUTSIDE RECORDS SUMMARY | 2023-03-21 11:25 | XMS REPORT ---
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 80271097 Problem Left-sided muscle weakness M62.81 Active 101362259 Problem 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 Active 01241952 1 Problem Type 2 diabetes mellitus with diabetic neuropathy, 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 Active 87421563 Problem SNHL (sensory-neural hearing loss), 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 Active 910907382 Problem Bilateral hearing loss, unspecified hearing loss type H91.93 Active 09021168 Problem Hypertension I10 Active 96540635 Problem Panic attack F41.0 Active 227357138 Problem History of cerebrovascular accident with hemiparesis or hemiplegia Z86.73 Active 090330351 Problem Hypothyroidism (acquired) E03.9 Active 912242218 Problem Dementia with behavioral disturbance, unspecified dementia type F03.91 Active 6625088492881 Problem Other chronic pain G89.29 Active 38783 001 Problem 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 Active 201005465217 Problem Anxiety F41.9 Active 92008692 Problem Vascular dementia without behavioral disturbance F01.50 Active 038884853 ALLERGIES No Information ENCOUNTERS Encounter Location Date Diagnosis [facility] [address] [facility] [id number] [address] Oct, Medicare annual wellness visit, initial Z00.00 [...] seizures R56.1 and Encounter for immunization Z23 [place] [address] [address] Sep, [place] [address] [place] [id number] Jul, [place] [address] [address] Jul, [place] [address] [address] Jun, Anxiety F41.9 and 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 [place] [address] [address] Jun, Bronchitis J40 and Bilateral hearing loss, unspecified hearing loss type H91.93 [place] [address] [address] Jun, [place] [address] [address] Apr, [place] [address] [address] Apr, Encounter for immunization Z23 and Left breast mass N63.20 [place] [address] [address] Apr, [place] [address] [address] Mar, CVA (cerebral vascular accident) I63.9 ; Hypertension I10 ; 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 ; Type 2 diabetes mellitus with diabetic neuropathy, 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 and Left breast mass N63 [facility] [address] [place] [address] Mar, Mild episode of recurrent major depressive disorder F33.0 and Anxiety F41.9 [facility] [address] [place] [address] Mar, Breast mass, left N63 [facility] [address] [place] [id number] [place] [address] Mar, Breast mass, left N63 [facility] [address] [place] [id number] [place] [address] Feb, [facility] [address] [place] [id number] [place] [address] Feb, [facility] [address] [place] [id number] [place] [address] Feb, [facility] [address] [place] [id number] [place] [address] Feb, [facility] [address] [place] [id number] [place] [address] Feb, Onychomycosis B35.1 and Type 2 diabetes mellitus with complication E11.8 [facility] [address] [place] [address] Jan, Mild episode of recurrent major depressive disorder F33.0 and Anxiety F41.9 [facility] [address] [place] [address] Jan, [facility] [address] [place] [address] Dec, Onychomycosis due to dermatophyte B35.1 ; 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 ; Type 2 diabetes mellitus with diabetic neuropathy, 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 ; Falls frequently R29.6 ; Neuropathy G62.9 ; Dementia with behavioral disturbance, unspecified dementia type F03.91 ; Hypothyroidism (acquired) E03.9 and Left hand pain M79.642 [place] [address] [place] [address] Dec, [facility] [address] [place] [id number] [place] [address] Dec, Hypothyroidism (acquired) E03.9 [place] [address] [place] [id number] [place] [address] Dec, 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 [place] [address] [place] [id number] [place] [address] November, Hypothyroidism (acquired) E03.9 [place] [address] [place] [id number] [place] [address] Oct, [place] [address] [place] [id number] [place] [address] Oct, 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 [place] [address] [place] [id number] [place] [address] Oct, [place] [address] [place] [id number] [place] [address] Oct, Dysuria R30.0 ; 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 ; Bilateral hearing loss, unspecified hearing loss type H91.93 and 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 [place] [address] [place] [id number] [place] [address] Sep, [facility] [address] [place] [id number] [place] [address] Sep, Open wound of right great toe, initial encounter S91.101A [place] [address] [address] Sep, Breast mass, left N63 ; Non-insulin dependent type 2 diabetes mellitus E11.9 and Vascular dementia without behavioral disturbance F01.50 [place] [address] [place] [id number] [place] [address] Sep, [place] [address] [place] [id number] [place] [address] Jul, [place] [address] [address] Jul, Diabetes E11.9 ; Diaper dermatitis L22 ; Candidiasis of skin and nail B37.2 ; Neuropathy G62.9 ; Status post stroke Z86.73 ; Unsteadiness on feet R26.81 and 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 [place] [address] [place] [id number] [place] [address] May, [place] [address] [address] May, [place] [address] [address] May, [place] [address] [address] May, Dementia with behavioral disturbance, unspecified dementia type F03.91 [place] [address] [place] [id number] [place] [address] May, Dementia with behavioral disturbance, unspecified dementia type F03.91 ; Encounter for immunization Z23 and Diabetes E11.9 [place] [address] [place] [id number] [place] [address] May, [place] [address] [address] May, Neuropathy G62.9 [place] [address] [place] [id number] [place] [address] May, [place] [address] [address] Apr, Hypothyroidism (acquired) E03.9 [place] [address] [place] [id number] [place] [address] 18 Oct, 2016 CVA (cerebral vascular accident) I63.9 ; Left hand weakness M62.81 and Neuropathy G62.9 [place] [address] [place] [id number] [place] [address] Apr, Hypokalemia E87.6 [place] [address] [place] [id number] [place] [address] Apr, Hypokalemia E87.6 [place] [address] [address] Mar, Diabetes E11.9 ; Edema, unspecified type R60.9 ; Anxiety disorder, unspecified F41.9 ; Pain in left knee M25.562 ; Other chronic pain G89.29 and Status post stroke Z86.73 [place] [address] [place] [id number] [place] [address] 15 Mar, 2016 [place] [address] [address] Mar, [place] [address] [place] [id number] [place] [address] Mar, Neuropathy G62.9 [place] [address] [place] [id number] [place] [address] Feb, Anorexia R63.0 and Neuropathy G62.9 [place] [address] [place] [id number] [place] [address] Jan, Diabetes E11.9 ; Neuropathy G62.9 ; Panic attack F41.0 ; Pain in left knee M25.562 and Hypertension 401.9 [place] [address] [place] [id number] [place] [address] Jan, Weakness R53.1 ; Fatigue, unspecified type R53.83 ; Falling episodes R29.6 and Neuropathy G62.9 [place] [address] [place] [id number] [place] [address] Jan, Pain in left knee M25.562 [place] [address] [place] [id number] [place] [address] Jan, [facility] [address] [place] [id number] [place] [address] Jan, [facility] [address] [place] [id number] [place] [address] Jan, [facility] [address] [place] [id number] [place] [address] Dec, Diabetes E11.9 ; Neuropathy G62.9 and Dementia F03.90 [facility] [address] [place] [id number] [place] [address] Dec, [facility] [address] [place] [id number] [place] [address] Dec, Neuropathy G62.9 ; Diabetes E11.9 ; Anxiety F41.9 and Constipation, unspecified constipation type K59.00 [facility] [address] [place] [id number] [place] [address] Dec, [facility] [address] [place] [id number] [place] [address] Dec, Anxiety F41.9 [facility] [address] [place] [id number] [place] [address] November, [facility] [address] [place] [id number] [place] [address] November, Pain in left knee M25.562 ; Other chronic pain G89.29 ; Diabetes E11.9 and Left eye pain H57.12 [facility] [address] [place] [id number] [place] [address] November, [facility] [address] [place] [id number] [place] [address] November, Hearing loss, unspecified laterality H91.90 [facility] [address] [place] [id number] [place] [address] November, [facility] [address], [place] [address] November, [facility] [address] [place] [id number] [place] [address] November, Pain in right knee M25.561 [facility] [address] [place] [address] November, [facility] [address] [place] [id number] [place] [address] Oct, [facility] [address] [place] [address] Oct, [facility] [address] [place] [id number] [place] [address] Oct, Edema of left lower extremity R60.0 ; Diabetes E11.9 ; 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 I63.39 and Anxiety disorder, unspecified F41.9 [facility] [address] [place] [id number] [place] [address] Oct, Panic attack F41.0 [facility] [address] [place] [id number] [place] [address] Oct, [facility] [address] [place] [address] Oct, CVA (cerebral vascular accident) I63.9 [facility] [address] [place] [address] Oct, [facility] [address] [place] [address] Oct, Diabetes E11.9 ; Hypertension I10 and Dementia F03.90 [facility] [address] [address] Sep, [facility] [address] [place] [address] Sep, [facility] [address] [place] [id number] [place] [address] Sep, Diabetes E11.9 ; 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 ; Onychomycosis B35.1 and Fatigue R53.83 [facility] [address] [place] [id number] [place] [address] Aug, [facility] [address] [place] [id number] [place] [address] Aug, [facility] [address] [place] [id number] [place] [address] Jul, [facility] [address] [place] [id number] [place] [address] Jul, [facility] [address] [place] [id number] [place] [address] Jun, 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 [facility] [address] [place] [id number] [place] [address] Jun, Anxiety disorder, unspecified F41.9 and Major depressive disorder, single episode, moderate F32.1 [facility] [address] [place] [id number] [place] [address] Jun, [facility] [address] [place] [id number] [place] [address] Jun, [facility] [address] [place] [id number] [place] [address] May, Left knee pain M25.562 [facility] [address] [place] [id number] [place] [address] May, [facility] [address] [place] [id number] [place] [address] May, [facility] [address] [place] [id number] [place] [address] May, [facility] [address] [place] [id number] [place] [address] May, Hypertension I10 ; Diabetes E11.9 and Depression F32.9 [facility] [address] [place] [id number] [place] [address] May, [facility] [address] [place] [id number] [place] [address] Apr, Left knee pain M25.562 ; Type 2 diabetes mellitus with complication E11.8 and Encounter for immunization Z23 [facility] [address] [place] [id number] [place] [address] Apr, [facility] [address] [place] [id number] [place] [address] Apr, [facility] [address] [place] [id number] [place] [address] Mar, [facility] [address] [place] [id number] [place] [address] Mar, Silvestre stanley 727.51 [facility] [address] [place] [id number] [place] [address] Mar, [facility] [address] [place] [id number] [place] [address] Mar, [facility] [address] [place] [id number] [place] [address] Mar, [facility] [address] [place] [id number] [place] [address] Feb, [facility] [address] [place] [id number] [place] [address] Feb, [facility] [address] [place] [id number] [place] [address] Feb, Hypertension 401.9 and Diabetes 250.00 [facility] [address] [place] [address] Jan, [facility] [address] [place] [id number] [place] [address] [place] [address] Jan, Diabetes 250.00 [facility] [address] [place] [address] 14 Jan, 2015 [facility] [address] [place] [id number] [address] Jan, [facility] [address] [place] [address] Dec, Diabetes 250.00 and Forgetfulness 780.99 [facility] [address] [place] [id number] [place] [address] Dec, [facility] [address] [place] [id number] [place] [address] Dec, Diabetes mellitus 250.00 [facility] [address] [place] [id number] [address] Dec, [facility] [address] [place] [address] Dec, [facility] [address], [place] [address] Dec, [facility] [address] [place] [address] Dec, Diabetes 250.00 and Dysthymia 300.4 [facility] [address], [place] [address] Dec, [facility] [address], [place] [address] Dec, Grief 309.0 and Diabetes mellitus 250.00 [facility] [address], [place] [address] Oct, [facility] [address], [place] [address] Oct, [facility] [address] [place] [address] Jul, [facility] [place] [facility] [address] [id number] [place] [address] Jul, [facility] [place] [facility] [address] [id number] [place] [address] Jul, [facility] [place] [facility] [address] [id number] [place] [address] Jul, [facility] [place] [facility] [address] [id number] [place] [address] Jul, [facility] [place] [facility] [address] [id number] [place] [address] May, [facility] [place] [facility] [address] [id number] [place] [address] May, [facility] [place] [facility] [address] [id number] [place] [address] Apr, [facility] [place] [facility] [address] [id number] [place] [address] Apr, [facility] [place] [facility] [address] [id number] [place] [address] Mar, [facility] [place] [facility] [address] [id number] [place] [address] Mar, [facility] [place] [facility] [address] [id number] [place] [address] Feb, [facility] [place] [facility] [address] [id number] [place] [address] Feb, [facility] [place] [facility] [address] [id number] [place] [address] Feb, [facility] [place] [facility] [address] [id number] [place] [address] Feb, [facility] [place] [facility] [address] [id number] [place] [address] Feb, [facility] [place] [facility] [address] [id number] [place] [address] Feb, [facility] [place] [facility] [address] [id number] [place] [address] November, [facility] [place] [facility] [address] [id number] [place] [address] November, [facility] [place] [facility] [address] [id number] [place] [address] Sep, [facility] [place] [facility] [address] [id number] [place] [address] Sep, [facility] [place] [facility] [address] [id number] [place] [address] Sep, [facility] [place] [facility] [address] [id number] [place] [address] Sep, [facility] [place] [facility] [address] [id number] [place] [address] Sep, [facility] [place] [facility] [address] [id number] [place] [address] Sep, [facility] [place] [facility] [address] [id number] [place] [address] Sep, [facility] [place] [facility] [address] [id number] [place] [address] Sep, [facility] [place] [facility] [address] [id number] [place] [address] Aug, [facility] [place] [facility] [address] [id number] [place] [address] Aug, [facility] [place] [facility] [address] [id number] [place] [address] Jul, [facility] [place] [facility] [address] [id number] [place] [address] Jul, [facility] [place] [facility] [address] [id number] [place] [address] Jul, [facility] [place] [facility] [address] [id number] [place] [address] Jul, [facility] [place] [facility] [address] [id number] [place] [address] Jun, [facility] [place] [facility] [address] [id number] [place] [address] Jun, [facility] [place] [facility] [address] [id number] [place] [address] May, [facility] [place] [facility] [address] [id number] [place] [address] May, [facility] [place] [facility] [address] [id number] [place] [address] May, [facility] [place] [facility] [address] [id number] [place] [address] May, [facility] [place] [facility] [address] [id number] [place] [address] May, [facility] [place] [facility] [address] [id number] [place] [address] May, [facility] [place] [facility] [address] [id number] [place] [address] Apr, [facility] [place] [facility] [address] [id number] [place] [address] Apr, [facility] [place] [facility] [address] [id number] [address] 16 Apr, 2013 [facility] [place] [facility] [address] [id number] [place] [address] Apr, [facility] [place] [facility] [address] [id number] [place] [address] Mar, [facility] [place] [facility] [address] [id number] [place] [address] 27 Mar, 2013 [facility] [place] [facility] [address] [id number] [place] [address] Jan, [facility] [address] [id number] [place] [address] Jan, [facility] [place] [facility] [address] [id number] [place] [address] Jan, [facility] [address] [id number] [place] [address] November, [facility] [place] [facility] [address] [id number] [place] [address] November, [facility] [address] [id number] [place] [address] November, [facility] [place] [facility] [address] [id number] [place] [address] November, [facility] [address] [id number] [place] [address] Aug, [facility] [place] [facility] [address] [id number] [place] [address] Jul, [facility] [address] [id number] [place] [address] Jul, [facility] [place] [facility] [address] [id number] [place] [address] Jul, [facility] [address] [id number] [place] [address] Jun, [facility] [place] [facility] [address] [id number] [place] [address] Jun, [facility] [place] [facility] [address] [id number] [place] [address] May, [facility] [place] [facility] [address] [id number] [place] [address] May, [facility] [place] [facility] [address] [id number] [place] [address] Apr, [facility] [place] [facility] [address] [id number] [place] [address] Apr, [facility] [place] [facility] [address] [id number] [place] [address] Apr, [facility] [place] [facility] [address] [id number] [place] [address] Apr, [facility] [place] [facility] [address] [id number] [place] [address] Apr, [facility] [place] [facility] [address] [id number] [place] [address] Apr, [facility] [place] [facility] [address] [id number] [place] [address] Apr, [facility] [place] [facility] [address] [id number] [place] [address] Apr, [facility] [place] [facility] [address] [id number] [place] [address] Apr, [facility] [place] [facility] [address] [id number] [place] [address] Mar, [facility] [place] [facility] [address] [id number] [place] [address] Feb, [facility] [place] [facility] [address] [id number] [place] [address] November, [facility] [place] [facility] [address] [id number] [place] [address] November, [facility] [place] [facility] [address] [id number] [place] [address] November, [facility] [place] [facility] [address] [id number] [place] [address] November, [facility] [place] [facility] [address] [id number] [place] [address] Jun, [facility] [place] [facility] [address] [id number] [place] [address] Jun, [facility] [address] [id number] [address] May, [facility] [id number] [place] [address] May, [facility] [address] [id number] [address] Apr, [facility] [id number] [place] [address] Apr, [facility] [id number] [address] May, [facility] [id number] [place] [address] Apr, [facility] [id number] [place] [address] Apr, [facility] [id number] [place] [address] Apr, [facility] [address] [id number] [address] Apr, IMMUNIZATIONS No Known Immunizations SOCIAL HISTORY Never Assessed REASON FOR VISIT Mammogram order PLAN OF CARE VITAL SIGNS MEDICATIONS Unknown [...] Hospitalization History Post Stroke pt [facility] [place] Hospitalization History Hypotension, Wander ateral leg weakness--Via [facility] 01/15/16 Hospitalization History hypertension/chest pain 03/2017
--- OUTSIDE RECORDS SUMMARY | 2023-03-21 11:25 | XMS REPORT ---
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 Active 808474101492 Problem Dementia with behavioral disturbance, unspecified dementia type F03.91 Active 7786040718576 Problem 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 Active 09677470 Problem Vascular dementia without behavioral disturbance F01.50 Active 481619078 Problem Type 2 diabetes mellitus with diabetic neuropathy, 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 Active 07446756 Problem 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 Active 94646694 1 Problem Bilateral hearing loss, unspecified hearing loss type H91.93 Active 92457100 Problem Diabetes E11.9 Active 414534903 Problem Falls frequently R29.6 Active 5955241 02 Problem History of cerebrovascular accident with hemiparesis or hemiplegia Z86.73 Active 765602104 Problem Type 2 diabetes mellitus with complication, without long-term current use of insulin E11.8 Active 48986822 Problem 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 Active 784977935 Problem Hypertension I10 Active 46035686 Problem SNHL (sensory-neural hearing loss), 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 Active 467858695 Problem Left-sided muscle weakness M62.81 Active 102194283 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 61885760 Problem Cardiomegaly I51.7 Active 3897099 ALLERGIES No Information ENCOUNTERS Encounter Location Date Diagnosis [facility] [address] [facility] [id number] [address] Jan, [facility] [address], [place] [address] Dec, [facility] [address], [place] [address] Dec, [facility] [address], [place] [address] Dec, [facility] [id number] [place] [address] November, Dental examination Z01.20 and Periodontitis K05.30 [facility] [id number] [place] [address] November, [facility] [id number] [place] [address] November, [facility] [id number] [place] [address] Oct, Encounter for Medicare annual wellness exam [...] hearing loss, unspecified hearing loss type H91.93 [facility] [id number] [address] Oct, [facility] [address], [place] [address] Oct, [facility] [address], [place] [address] Sep, [facility] [address], [place] [address] Aug, Anxiety F41.9 [place] [id number] [place] [address] 04 Aug, 2018 Encounter for immunization Z23 [place] [address] [address] Jul, History of cerebrovascular accident with hemiparesis or hemiplegia Z86.73 ; Dementia with behavioral disturbance, unspecified dementia type F03.91 ; Hypothyroidism (acquired) E03.9 ; Type 2 diabetes mellitus with diabetic neuropathy, 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 and 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 [place] [address] [address] Jul, [place] [address] [address] Jul, Type 2 diabetes mellitus with diabetic neuropathy, 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 ; Anxiety F41.9 ; Vascular dementia without behavioral disturbance F01.50 ; 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 ; Onychomycosis of great toe B35.1 ; 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 and Type 2 diabetes mellitus with complication, without long-term current use of insulin E11.8 [place] [id number] [place] [address] Jun, Hypertension I10 ; Anxiety F41.9 ; Dementia with behavioral disturbance, unspecified dementia type F03.91 ; 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 ; 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 ; Encounter for immunization Z23 ; Skin lesion of left leg L98.9 ; BMI 28.0-28.9,adult Z68.28 and Other chronic pain G89.29 [place] [id number] [place] [address] May, Lymphadenopathy, axillary R59.0 [place] [id number] [place] [address] May, [place] [id number] [place] [address] Apr, [place] [address], [place] [address] Apr, [facility] [id number] [place] [address] Apr, [facility] [id number] [place] [address] Apr, [place] [id number] [place] [address] Mar, Anxiety F41.9 ; 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 and Dementia with behavioral disturbance, unspecified dementia type F03.91 [place] [id number] [place] [address] Mar, [place] [id number] [place] [address] Mar, Diabetes E11.9 ; Hypothyroidism (acquired) E03.9 ; Hypertension I10 and Type 2 diabetes mellitus with diabetic neuropathy, 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 [place] [id number] [place] [address] Jan, [place] [id number] [place] [address] Dec, Anxiety F41.9 and 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 [place] [id number] [place] [address] November, [place] [id number] [place] [address] November, Chronic cough R05 and Cardiomegaly I51.7 [place] [id number] [place] [address] Oct, Medicare annual wellness visit, initial Z00.00 [...] seizures R56.1 and Encounter for immunization Z23 [place] [id number] [place] [address] Sep, [place] [address] [place] [id number] Jul, [place] [address] [address] Jul, [place] [address] [id number] Jun, Anxiety F41.9 and 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 [place] [address] [address] Jun, Bronchitis J40 and Bilateral hearing loss, unspecified hearing loss type H91.93 [place] [address] [address] Jun, [place] [id number] [place] [address] Apr, [place] [address] [id number] [place] [address] Apr, Encounter for immunization Z23 and Left breast mass N63.20 [place] [address] [id number] [place] [address] Apr, [place] [address] [address] Mar, CVA (cerebral vascular accident) I63.9 ; Hypertension I10 ; 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 ; Type 2 diabetes mellitus with diabetic neuropathy, 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 and Left breast mass N63 [place] [address] [id number] [address] Mar, Mild episode of recurrent major depressive disorder F33.0 and Anxiety F41.9 [place] [address], [place] [address] Mar, Breast mass, left N63 [facility] [address], [place] [address] Mar, Breast mass, left N63 [place] [address] [id number] [place] [address] Feb, [place] [id number] [place] [address] Feb, [place] [id number] [place] [address] Feb, [place] [address] [id number] [place] [address] Feb, [place] [address] [place] [address] Feb, Onychomycosis B35.1 and Type 2 diabetes mellitus with complication E11.8 [place] [id number] [place] [address] Jan, Mild episode of recurrent major depressive disorder F33.0 and Anxiety F41.9 [place] [address], [place] [address] Jan, [place] [id number] [place] [address] Dec, Onychomycosis due to dermatophyte B35.1 ; 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 ; Type 2 diabetes mellitus with diabetic neuropathy, 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 ; Falls frequently R29.6 ; Neuropathy G62.9 ; Dementia with behavioral disturbance, unspecified dementia type F03.91 ; Hypothyroidism (acquired) E03.9 and Left hand pain M79.642 [place] [address] [place] [address] Dec, [facility] [id number] [place] [address] Dec, Hypothyroidism (acquired) E03.9 [facility] [id number] [place] [address] Dec, 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 [facility] [id number] [place] [address] November, Hypothyroidism (acquired) E03.9 [facility] [id number] [place] [address] Oct, [facility] [id number] [place] [address] Oct, 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 [facility] [id number] [place] [address] Oct, [place] [id number] [place] [address] Oct, Dysuria R30.0 ; 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 ; Bilateral hearing loss, unspecified hearing loss type H91.93 and 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 [facility] [id number] [place] [address] Sep, [facility] [id number] [place] [address] Sep, Open wound of right great toe, initial encounter S91.101A [facility] [address] [address] Sep, Breast mass, left N63 ; Non-insulin dependent type 2 diabetes mellitus E11.9 and Vascular dementia without behavioral disturbance F01.50 [facility] [id number] [place] [address] Sep, [place] [id number] [place] [address] Jul, [place] [id number] [place] [address] Jul, Diabetes E11.9 ; Diaper dermatitis L22 ; Candidiasis of skin and nail B37.2 ; Neuropathy G62.9 ; Status post stroke Z86.73 ; Unsteadiness on feet R26.81 and 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 [place] [id number] [place] [address] May, [place] [address] [address] May, [place] [address] [address] May, [place] [address] [address] May, Dementia with behavioral disturbance, unspecified dementia type F03.91 [place] [address] [id number] [place] [address] May, Dementia with behavioral disturbance, unspecified dementia type F03.91 ; Encounter for immunization Z23 and Diabetes E11.9 [place] [address] [id number] [place] [address] May, [place] [address] [id number] [place] [address] May, Neuropathy G62.9 [place] [address] [id number] [place] [address] May, [place] [address] [address] Apr, Hypothyroidism (acquired) E03.9 [place] [address] [id number] [place] [address] Apr, CVA (cerebral vascular accident) I63.9 ; Left hand weakness M62.81 and Neuropathy G62.9 [place] [address] [place] [address] [id number] [place] [address] Apr, Hypokalemia E87.6 [place] [address] [id number] [place] [address] Apr, Hypokalemia E87.6 [place] [address] [address] Mar, Diabetes E11.9 ; Edema, unspecified type R60.9 ; Anxiety disorder, unspecified F41.9 ; Pain in left knee M25.562 ; Other chronic pain G89.29 and Status post stroke Z86.73 [place] [address] [id number] [place] [address] 15 Mar, 2016 [place] [address] [address] Mar, [place] [address] [id number] [place] [address] Mar, Neuropathy G62.9 [place] [address] [address] Feb, Anorexia R63.0 and Neuropathy G62.9 [place] [address] [id number] [place] [address] Jan, Diabetes E11.9 ; Neuropathy G62.9 ; Panic attack F41.0 ; Pain in left knee M25.562 and Hypertension 401.9 [place] [address] [id number] [place] [address] Jan, Weakness R53.1 ; Fatigue, unspecified type R53.83 ; Falling episodes R29.6 and Neuropathy G62.9 [place] [address] [id number] [place] [address] Jan, Pain in left knee M25.562 [place] [address] [address] Jan, [facility] [id number] [place] [address] Jan, [facility] [id number] [place] [address] Jan, [facility] [id number] [place] [address] Dec, Diabetes E11.9 ; Neuropathy G62.9 and Dementia F03.90 [facility] [id number] [place] [address] Dec, [facility] [id number] [place] [address] Dec, Neuropathy G62.9 ; Diabetes E11.9 ; Anxiety F41.9 and Constipation, unspecified constipation type K59.00 [facility] [id number] [place] [address] Dec, [facility] [id number] [place] [address] Dec, Anxiety F41.9 [facility] [id number] [place] [address] November, [facility] [id number] [place] [address] November, Pain in left knee M25.562 ; Other chronic pain G89.29 ; Diabetes E11.9 and Left eye pain H57.12 [facility] [id number] [place] [address] November, [facility] [id number] [place] [address] November, Hearing loss, unspecified laterality H91.90 [facility] [id number] [place] [address] November, [facility] [id number] [place] [address] November, [facility] [id number] [place] [address] November, Pain in right knee M25.561 [facility] [id number] [place] [address] November, [facility] [id number] [place] [address] Oct, [facility] [id number] [place] [address] Oct, [facility] [id number] [place] [address] Oct, Edema of left lower extremity R60.0 ; Diabetes E11.9 ; 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 I63.39 and Anxiety disorder, unspecified F41.9 [facility] [id number] [place] [address] Oct, Panic attack F41.0 [facility] [id number] [place] [address] Oct, [facility] [id number] [place] [address] Oct, CVA (cerebral vascular accident) I63.9 [facility] [id number] [place] [address] Oct, [facility] [id number] [place] [address] Oct, Diabetes E11.9 ; Hypertension I10 and Dementia F03.90 [facility] [id number] [place] [address] Sep, [facility] [id number] [place] [address] Sep, [facility] [id number] [place] [address] Sep, Diabetes E11.9 ; 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 ; Onychomycosis B35.1 and Fatigue R53.83 [facility] [id number] [place] [address] Aug, [facility] [id number] [place] [address] Aug, [facility] [id number] [place] [address] Jul, [facility] [id number] [place] [address] Jul, [facility] [id number] [place] [address] Jun, 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 [facility] [id number] [place] [address] Jun, Anxiety disorder, unspecified F41.9 and Major depressive disorder, single episode, moderate F32.1 [facility] [id number] [place] [address] Jun, [facility] [id number] [place] [address] Jun, [facility] [address] [place] [id number] [place] [address] May, Left knee pain M25.562 [facility] [id number] [place] [address] May, [facility] [id number] [place] [address] May, [facility] [id number] [place] [address] May, [facility] [id number] [place] [address] May, Hypertension I10 ; Diabetes E11.9 and Depression F32.9 [facility] [id number] [place] [address] May, [facility] [id number] [place] [address] Apr, Left knee pain M25.562 ; Type 2 diabetes mellitus with complication E11.8 and Encounter for immunization Z23 [facility] [id number] [place] [address] Apr, [facility] [id number] [place] [address] Apr, [facility] [id number] [place] [address] Mar, [facility] [id number] [place] [address] Mar, Silvestre stanley 727.51 [facility] [id number] [place] [address] Mar, [facility] [id number] [place] [address] Mar, [facility] [id number] [place] [address] Mar, [facility] [id number] [place] [address] Feb, [facility] [id number] [place] [address] Feb, [facility] [id number] [place] [address] Feb, Hypertension 401.9 and Diabetes 250.00 [facility] [id number] [place] [address] Jan, [facility] [id number] [place] [address] Jan, Diabetes 250.00 [facility] [address], [place] [address] Jan, [facility] [address], [place] [address] Jan, [facility] [address], [place] [address] Dec, Diabetes 250.00 and Forgetfulness 780.99 [facility] [address], [place] [address] Dec, [facility] [id number] [place] [address] Dec, Diabetes mellitus 250.00 [facility] [address], [place] [address] Dec, [facility] [id number] [place] [address] Dec, [facility] [address], [place] [address] Dec, [facility] [address], [place] [address] Dec, Diabetes 250.00 and Dysthymia 300.4 [facility] [address], [place] [address] Dec, [facility] [address], [place] [address] Dec, Grief 309.0 and Diabetes mellitus 250.00 [facility] [address], [place] [address] 14 Oct, 2014 [facility] [address], [place] [address] Oct, [facility] [address], [place] [address] Jul, [facility] [place] [facility] [address] [id number] [place] [address] Jul, [facility] [place] [facility] [address] [id number] [place] [address] Jul, [facility] [place] [facility] [address] [id number] [place] [address] Jul, [facility] [place] [facility] [address] [id number] [place] [address] Jul, [facility] [place] [facility] [address] [id number] [place] [address] May, [facility] [place] [facility] [address] [id number] [place] [address] May, [facility] [place] [facility] [address] [id number] [place] [address] Apr, [facility] [place] [facility] [address] [id number] [place] [address] Apr, [facility] [place] [facility] [address] [id number] [place] [address] Mar, [facility] [place] [facility] [address] [id number] [place] [address] Mar, [facility] [place] [facility] [address] [id number] [place] [address] Feb, [facility] [place] [facility] [address] [id number] [place] [address] Feb, [facility] [place] [facility] [address] [id number] [place] [address] Feb, [facility] [place] [facility] [address] [id number] [place] [address] Feb, [facility] [place] [facility] [address] [id number] [place] [address] Feb, [facility] [place] [facility] [address] [id number] [place] [address] Feb, [facility] [place] [facility] [address] [id number] [place] [address] November, [facility] [place] [facility] [address] [id number] [place] [address] November, [facility] [place] [facility] [address] [id number] [place] [address] Sep, [facility] [place] [facility] [address] [id number] [place] [address] Sep, [facility] [place] [facility] [address] [id number] [place] [address] Sep, [facility] [place] [facility] [address] [id number] [place] [address] Sep, [facility] [place] [facility] [address] [id number] [place] [address] Sep, [facility] [place] [facility] [address] [id number] [place] [address] Sep, [facility] [place] [facility] [address] [id number] [place] [address] Sep, [facility] [place] [facility] [address] [id number] [place] [address] Sep, [facility] [place] [facility] [address] [id number] [place] [address] Aug, [facility] [place] [facility] [address] [id number] [place] [address] Aug, [facility] [place] [facility] [address] [id number] [place] [address] Jul, [facility] [place] [facility] [address] [id number] [place] [address] Jul, [facility] [place] [facility] [address] [id number] [place] [address] Jul, [facility] [place] [facility] [address] [id number] [place] [address] Jul, [facility] [address] [id number] [place] [address] Jun, [facility] [address] [id number] [place] [address] Jun, [facility] [address] [id number] [place] [address] May, [facility] [address] [id number] [place] [address] May, [facility] [address] [id number] [place] [address] May, [facility] [address] [id number] [place] [address] May, [facility] [address] [id number] [place] [address] May, [facility] [address] [id number] [place] [address] May, [facility] [address] [id number] [place] [address] Apr, [facility] [address] [id number] [place] [address] Apr, [facility] [place] [facility] [address] [id number] [place] [address] 16 Apr, 2013 [facility] [place] [facility] [address] [id number] [place] [address] Apr, [facility] [place] [facility] [address] [id number] [place] [address] Mar, [facility] [place] [facility] [address] [id number] [place] [address] Mar, [facility] [place] [facility] [address] [id number] [place] [address] Jan, [facility] [place] [facility] [address] [id number] [place] [address] Jan, [facility] [address] [id number] [place] [address] Jan, [facility] [place] [facility] [address] [id number] [place] [address] November, [facility] [place] [facility] [address] [id number] [place] [address] November, [facility] [address] [id number] [place] [address] November, [facility] [place] [facility] [address] [id number] [place] [address] November, [facility] [address] [id number] [place] [address] Aug, [facility] [address] [id number] [place] [address] Jul, [facility] [place] [facility] [address] [id number] [place] [address] Jul, [facility] [address] [id number] [place] [address] Jul, [facility] [place] [facility] [address] [id number] [place] [address] Jun, [facility] [place] [facility] [address] [id number], [place] [address] Jun, [facility] [place] [facility] [address] [id number] [place] [address] May, [facility] [place] [facility] [address] [id number] [place] [address] May, [facility] [place] [facility] [address] [id number] [place] [address] Apr, [facility] [place] [facility] [address] [id number], [place] [address] Apr, [facility] [place] [facility] [address] [id number] [place] [address] Apr, [facility] [place] [facility] [address] [id number] [place] [address] Apr, [facility] [place] [facility] [address] [id number] [place] [address] Apr, [facility] [place] [facility] [address] [id number] [place] [address] Apr, [facility] [place] [facility] [address] [id number] [place] [address] Apr, [facility] [place] [facility] [address] [id number] [place] [address] Apr, [facility] [place] [facility] [id number] [place] [address] Apr, [facility] [place] [facility] [address] [facility] [id number] [place] [address] Mar, [facility] [place] [facility] [address] [facility] [id number] [place] [address] Feb, [facility] [place] [facility] [address] [facility] [id number] [place] [address] November, [facility] [place] [facility] [address] [facility] [id number] [place] [address] November, [facility] [place] [facility] [address] [facility] [id number] [place] [address] November, [facility] [place] [facility] [address] [id number] [place] [address] November, [facility] [place] [facility] [address] [facility] [id number] [place] [address] Jun, [facility] [place] [facility] [address] [facility] [id number] [place] [address] Jun, [facility] [place] [facility] [address] [id number], [place] [address] May, [facility] [address] [id number], [place] [address] May, [facility] [address] [facility] [id number], [place] [address] Apr, [facility] [id number], [place] [address] Apr, [facility] [address] [facility] [id number], [place] [address] May, [facility] [id number], [place] [address] Apr, [facility] [id number], [place] [address] Apr, [facility] [id number], [place] [address] Apr, [facility] [address] [id number], [place] [address] Apr, IMMUNIZATIONS No Known Immunizations SOCIAL HISTORY [...] Hospitalization History Post Stroke pt went to [facility] and then [facility] 10/15/15 Hospitalization History Hypotension, Wander ateral leg weakness--Via [facility] 01/15/16 Hospitalization History hypertension/chest pain 03/2017
--- OUTSIDE RECORDS SUMMARY | 2023-03-21 11:25 | XMS REPORT ---
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 Active 024732964229 Problem Bilateral hearing loss, unspecified hearing loss type H91.93 Active 47338315 Problem 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 Active 10887328 1 Problem 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 Active 950983683 Problem 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 Active 43992688 Problem Type 2 diabetes mellitus with diabetic neuropathy, 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 Active 92626754 Problem Falls frequently R29.6 Active 7344470 02 Problem History of cerebrovascular accident with hemiparesis or hemiplegia Z86.73 Active 405861269 Problem Hypertension I10 Active 08434557 Problem Anxiety F41.9 Active 35708148 Problem Constipation, unspecified constipation type K59.00 Active 41566215 Problem Panic attack F41.0 Active 961850144 Problem Left hand weakness M62.81 Active 43987 3006 Problem Other chronic pain G89.29 Active 42464 001 Problem Hypothyroidism (acquired) E03.9 Active 262270032 ALLERGIES Substance Reaction Event Type Date Status Victoza stomach upset Drug Allergy Dec, Active ENCOUNTERS Encounter Location Date Diagnosis [facility] [address] [facility] [id number] [address] Oct, Medicare annual wellness visit, initial Z00.00 [facility] [address] [facility] [id number] [address] Sep, [place] [id number] [place] [address] Jul, [place] [address] [place] [id number] [place] [address] Jul, [place] [address] [place] [id number] [place] [address] Jun, Anxiety F41.9 and 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 [place] [address] [address] Jun, Bronchitis J40 and Bilateral hearing loss, unspecified hearing loss type H91.93 [place] [address] [address] Jun, [place] [address] [place] [id number] [place] [address] Apr, [place] [address] [address] Apr, Encounter for immunization Z23 and Left breast mass N63.20 [place] [address] [place] [id number] [place] [address] 16 Apr, 2017 [place] [address] [place] [id number] [place] [address] 27 Mar, 2017 CVA (cerebral vascular accident) I63.9 ; Hypertension I10 ; 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 ; Type 2 diabetes mellitus with diabetic neuropathy, 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 and Left breast mass N63 [place] [address] [place] [id number] [place] [address] 27 Mar, 2017 Mild episode of recurrent major depressive disorder F33.0 and Anxiety F41.9 [place] [address] [place] [id number] [place] [address] Mar, Breast mass, left N63 [place] [address] [place] [id number] [place] [address] Mar, Breast mass, left N63 [facility] [address] [address] Feb, [facility] [address] [place] [id number] [place] [address] Feb, [facility] [id number] [place] [address] Feb, [place] [address] [place] [id number] [place] [address] Feb, [facility] [address] [place] [address] Feb, Onychomycosis B35.1 and Type 2 diabetes mellitus with complication E11.8 [place] [address] [place] [id number] [place] [address] Jan, Mild episode of recurrent major depressive disorder F33.0 and Anxiety F41.9 [place] [address] [place] [address] Jan, [place] [address] [place] [id number] [place] [address] Dec, Onychomycosis due to dermatophyte B35.1 ; 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 ; Type 2 diabetes mellitus with diabetic neuropathy, 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 ; Falls frequently R29.6 ; Neuropathy G62.9 ; Dementia with behavioral disturbance, unspecified dementia type F03.91 ; Hypothyroidism (acquired) E03.9 and Left hand pain M79.642 [facility] [address] [address] Dec, [place] [address] [place] [id number] [place] [address] Dec, Hypothyroidism (acquired) E03.9 [place] [address] [address] Dec, 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 [place] [address] [place] [id number] [place] [address] November, Hypothyroidism (acquired) E03.9 [place] [address] [address] Oct, [place] [address] [address] Oct, 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 [place] [address] [address] Oct, [place] [address] [address] Oct, Dysuria R30.0 ; 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 ; Bilateral hearing loss, unspecified hearing loss type H91.93 and 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 [place] [address] [address] Sep, [facility] [address] [place] [address] [id number] [place] [address] Sep, Open wound of right great toe, initial encounter S91.101A [place] [address] [address] Sep, Breast mass, left N63 ; Non-insulin dependent type 2 diabetes mellitus E11.9 and Vascular dementia without behavioral disturbance F01.50 [place] [address] [place] [id number] [place] [address] Sep, [place] [address] [address] Jul, [place] [address] [address] Jul, Diabetes E11.9 ; Diaper dermatitis L22 ; Candidiasis of skin and nail B37.2 ; Neuropathy G62.9 ; Status post stroke Z86.73 ; Unsteadiness on feet R26.81 and 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 [place] [address] [place] [id number] [place] [address] May, [place] [address] [address] May, [place] [address] [address] May, [place] [address] [address] May, Dementia with behavioral disturbance, unspecified dementia type F03.91 [place] [address] [address] May, Dementia with behavioral disturbance, unspecified dementia type F03.91 ; Encounter for immunization Z23 and Diabetes E11.9 [place] [address] [address] May, [place] [address] [address] May, Neuropathy G62.9 [place] [address] [address] May, [place] [address] [address] Apr, Hypothyroidism (acquired) E03.9 [place] [address] [address] Apr, CVA (cerebral vascular accident) I63.9 ; Left hand weakness M62.81 and Neuropathy G62.9 [place] [address] [address] Apr, Hypokalemia E87.6 [place] [address] [address] Apr, Hypokalemia E87.6 [place] [address] [address] Mar, Diabetes E11.9 ; Edema, unspecified type R60.9 ; Anxiety disorder, unspecified F41.9 ; Pain in left knee M25.562 ; Other chronic pain G89.29 and Status post stroke Z86.73 [facility] [address] [place] [id number] [place] [address] 15 Mar, 2016 [facility] [address] [address] Mar, [place] [address] [place] [id number] [place] [address] Mar, Neuropathy G62.9 [place] [address] [address] Feb, Anorexia R63.0 and Neuropathy G62.9 [place] [address] [place] [id number] [place] [address] Jan, Diabetes E11.9 ; Neuropathy G62.9 ; Panic attack F41.0 ; Pain in left knee M25.562 and Hypertension 401.9 [place] [address] [place] [id number] [place] [address] Jan, Weakness R53.1 ; Fatigue, unspecified type R53.83 ; Falling episodes R29.6 and Neuropathy G62.9 [place] [address] [place] [id number] [place] [address] Jan, Pain in left knee M25.562 [place] [address] [place] [id number] [place] [address] Jan, [place] [address] [place] [id number] [place] [address] Jan, [facility] [address] [place] [id number] [place] [address] Jan, [place] [address] [place] [id number] [place] [address] Dec, Diabetes E11.9 ; Neuropathy G62.9 and Dementia F03.90 [facility] [address] [place] [id number] [place] [address] Dec, [facility] [address] [address] Dec, Neuropathy G62.9 ; Diabetes E11.9 ; Anxiety F41.9 and Constipation, unspecified constipation type K59.00 [facility] [address] [address] Dec, [facility] [address] [address] Dec, Anxiety F41.9 [facility] [address] [address] November, [facility] [address] [address] November, Pain in left knee M25.562 ; Other chronic pain G89.29 ; Diabetes E11.9 and Left eye pain H57.12 [facility] [address] [address] November, [facility] [address] [place] [id number] [place] [address] November, Hearing loss, unspecified laterality H91.90 [facility] [address] [place] [id number] [place] [address] November, [facility] [address] [place] [id number] [place] [address] November, [facility] [address] [address] November, Pain in right knee M25.561 [facility] [address] [place] [id number] [place] [address] November, [facility] [address] [address] Oct, [facility] [address] [place] [id number] [place] [address] Oct, [place] [address] [place] [id number] [place] [address] Oct, Edema of left lower extremity R60.0 ; Diabetes E11.9 ; 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 I63.39 and Anxiety disorder, unspecified F41.9 [place] [address] [place] [id number] [place] [address] 14 Oct, 2015 Panic attack F41.0 [place] [address] [place] [id number] [place] [address] 14 Oct, 2015 [place] [address] [place] [id number] [place] [address] Oct, CVA (cerebral vascular accident) I63.9 [place] [address] [place] [id number] [place] [address] Oct, [place] [address] [place] [id number] [place] [address] Oct, Diabetes E11.9 ; Hypertension I10 and Dementia F03.90 [place] [address] [place] [id number] [place] [address] Sep, [place] [address] [place] [id number] [place] [address] Sep, [place] [address] [place] [address] Sep, Diabetes E11.9 ; 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 ; Onychomycosis B35.1 and Fatigue R53.83 [place] [address] [address] Aug, [place] [address] [place] [id number] [place] [address] Aug, [facility] [address] [place] [id number] [place] [address] Jul, [facility] [address] [place] [id number] [place] [address] Jul, [facility] [address] [place] [id number] [place] [address] Jun, 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 [facility] [address] [place] [id number] [place] [address] Jun, Anxiety disorder, unspecified F41.9 and Major depressive disorder, single episode, moderate F32.1 [facility] [address] [place] [id number] [place] [address] Jun, [facility] [address] [place] [id number] [place] [address] Jun, [facility] [address] [place] [id number] [place] [address] May, Left knee pain M25.562 [facility] [address] [place] [id number] [place] [address] May, [facility] [address] [place] [id number] [place] [address] May, [facility] [address] [place] [id number] [place] [address] May, [facility] [address] [place] [id number] [place] [address] May, Hypertension I10 ; Diabetes E11.9 and Depression F32.9 [facility] [address] [place] [id number] [place] [address] May, [facility] [address] [place] [id number] [place] [address] Apr, Left knee pain M25.562 ; Type 2 diabetes mellitus with complication E11.8 and Encounter for immunization Z23 [place] [address] [facility] [id number] [address] Apr, [facility] [address] [address] Apr, [facility] [address] [facility] [id number] [address] Mar, [facility] [address] [place] [address] Mar, Silvestre stanley 727.51 [facility] [address] [facility] [id number] [place] [address] Mar, [facility] [address] [place] [address] Mar, [facility] [address] [address] Mar, [facility] [address] [place] [address] Feb, [facility] [address] [address] Feb, [facility] [address] [address] Feb, Hypertension 401.9 and Diabetes 250.00 [facility] [address] [place] [id number] [address] Jan, [facility] [address] [place] [address] [id number] [address] Jan, Diabetes 250.00 [facility] [address] [place] [address] [id number] [address] Jan, [facility] [address] [place] [id number] [address] Jan, [facility] [address] [place] [address] [id number] [address] Dec, Diabetes 250.00 and Forgetfulness 780.99 [facility] [address] [address] Dec, [facility] [address] [address] Dec, Diabetes mellitus 250.00 [facility] [address], [place] [address] Dec, [facility] [address] [place] [address] [id number], [place] [address] Dec, [facility] [address] [address] Dec, [facility] [address] [place] [address] [address] [address] 16 Dec, 2014 Diabetes 250.00 and Dysthymia 300.4 [facility] [address] [place] [id number] [place] [address] Dec, [facility] [address] [address] 09 Dec, 2014 Grief 309.0 and Diabetes mellitus 250.00 [facility] [address] [address] Oct, [facility] [address], [place] [address] Oct, [facility] [address] [address] Jul, [facility] [address] [address] Jul, [facility] [address] [address] Jul, [facility] [address] [place] [id number] [address] Jul, [facility] [address], [place] [address] Jul, [facility] [place] [facility] [address] [id number] [place] [address] May, [facility] [place] [facility] [address] [id number] [place] [address] May, [facility] [place] [facility] [address] [id number] [place] [address] Apr, [facility] [place] [facility] [address] [id number] [place] [address] Apr, [facility] [place] [facility] [address] [id number] [place] [address] Mar, [facility] [place] [facility] [address] [id number] [place] [address] Mar, [facility] [place] [facility] [address] [id number] [place] [address] Feb, [facility] [place] [facility] [address] [id number] [place] [address] Feb, [facility] [place] [facility] [address] [id number] [place] [address] Feb, [facility] [place] [facility] [address] [id number] [place] [address] Feb, [facility] [place] [facility] [address] [id number] [place] [address] Feb, [facility] [place] [facility] [address] [id number] [place] [address] Feb, [facility] [place] [facility] [address] [id number] [place] [address] November, [facility] [place] [facility] [address] [id number] [place] [address] November, [facility] [place] [facility] [address] [id number] [place] [address] Sep, [facility] [place] [facility] [address] [id number] [place] [address] Sep, [facility] [place] [facility] [address] [id number] [place] [address] Sep, [facility] [place] [facility] [address] [id number] [place] [address] Sep, [facility] [place] [facility] [address] [id number] [place] [address] Sep, [facility] [place] [facility] [address] [id number] [place] [address] Sep, [facility] [place] [facility] [address] [id number] [place] [address] Sep, [facility] [place] [facility] [address] [id number] [place] [address] Sep, [facility] [place] [facility] [address] [id number] [place] [address] Aug, [facility] [place] [facility] [address] [id number] [place] [address] Aug, [facility] [place] [facility] [address] [id number] [place] [address] Jul, [facility] [place] [facility] [address] [id number] [place] [address] Jul, [facility] [place] [facility] [address] [id number] [place] [address] Jul, [facility] [place] [facility] [address] [id number] [place] [address] Jul, [facility] [place] [facility] [address] [id number] [place] [address] Jun, [facility] [place] [facility] [address] [id number] [place] [address] Jun, [facility] [place] [facility] [address] [id number] [place] [address] May, [facility] [place] [facility] [address] [id number] [place] [address] May, [facility] [place] [facility] [address] [id number] [place] [address] May, [facility] [place] [facility] [address] [id number] [place] [address] May, [facility] [place] [facility] [address] [id number] [place] [address] May, [facility] [place] [facility] [address] [id number] [place] [address] May, [facility] [place] [facility] [address] [id number] [place] [address] Apr, [facility] [place] [facility] [address] [id number] [place] [address] Apr, [facility] [place] [facility] [address] [id number], [place] [address] Apr, [facility] [place] [facility] [address] [id number] [place] [address] Apr, [facility] [place] [facility] [address] [id number], [place] [address] Mar, [facility] [place] [facility] [address] [id number], [place] [address] Mar, [facility] [place] [facility] [address] [id number], [place] [address] Jan, [facility] [place] [facility] [address] [id number] [place] [address] Jan, [facility] [place] [facility] [address] [id number], [place] [address] Jan, [facility] [place] [facility] [address] [id number] [place] [address] November, [facility] [place] [facility] [address] [id number] [place] [address] November, [facility] [address] [id number] [place] [address] November, [facility] [place] [facility] [address] [id number] [place] [address] November, [facility] [address] [id number] [place] [address] Aug, [facility] [place] [facility] [address] [id number] [place] [address] Jul, [facility] [address] [id number] [place] [address] Jul, [facility] [address] [id number] [place] [address] Jul, [facility] [address] [id number] [place] [address] Jun, [facility] [address] [id number] [place] [address] Jun, [facility] [address] [id number] [place] [address] May, [facility] [address] [facility] [id number] [place] [address] May, [facility] [place] [facility] [address] [id number] [place] [address] 30 Apr, 2012 [facility] [place] [facility] [address] [id number] [place] [address] 30 Apr, 2012 [facility] [place] [facility] [address] [id number] [place] [address] Apr, [facility] [place] [facility] [address] [id number] [place] [address] Apr, [facility] [place] [facility] [address] [id number] [place] [address] Apr, [facility] [place] [facility] [address] [id number] [place] [address] Apr, [facility] [place] [facility] [address] [id number] [place] [address] Apr, [facility] [place] [facility] [address] [id number] [place] [address] Apr, [facility] [place] [facility] [address] [id number] [place] [address] Apr, [facility] [place] [facility] [address] [id number] [place] [address] Mar, [facility] [place] [facility] [address] [id number] [place] [address] Feb, [facility] [place] [facility] [address] [id number] [place] [address] November, [facility] [place] [facility] [address] [id number] [place] [address] November, [facility] [place] [facility] [address] [id number] [place] [address] November, [facility] [place] [facility] [address] [id number] [place] [address] November, [facility] [place] [facility] [address] [id number] [place] [address] Jun, [facility] [place] [facility] [address] [id number], [place] [address] Jun, [facility] [place] [facility] [address] [id number] [place] [address] May, [facility] [place] [facility] [address] [id number] [place] [address] May, [facility] [place] [facility] [address] [id number] [place] [address] Apr, [facility] [place] [facility] [address] [id number], [place] [address] Apr, [facility] [address] [facility] [id number], [place] [address] May, [facility] [address] [facility] [id number][place] [address] Apr, [facility] [address] [facility] [id number], [place] [address] Apr, [facility] [address] [facility] [id number], [place] [address] Apr, [facility] [address] [facility] [id number], [place] [address] Apr, IMMUNIZATIONS No Known Immunizations SOCIAL HISTORY Never Assessed REASON FOR VISIT Diabetes f/tracy Ocampo RN, 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, diagnosed at [facility] [place], was not able to afford medication, Both legs have been hurting, Blood pressure pill is too small and patient keeps dropping it, Sertraline not working as well as it used to, has been feeling down and "doomed" PLAN OF CARE Activity Details VITAL SIGNS Height 62 in 2017-01-05 Temperature 97.6 degrees Fahrenheit Heart Rate 56 bpm 2017-01-05 Respiratory Rate 16 2017-01-05 Blood pressure systolic 130 mmHg Blood pressure diastolic 62 mmHg 2016-12 MEDICATIONS Medication Instructions Dosage Frequency Start Date End Date Duration Status Colace 100 MG Orally Once a day 1 capsule as needed 24h 30 days Active Hydrocodone-Aceta minophen 5-325 MG Orally every 6 hrs 1 tablet as needed 6h Active MetFORMIN HCl ER 750 MG Orally 1 1 tablet with meals Feb, 90 days Active Aggrenox 25-200 MG Orally Twice a day 1 capsule 12h 90 days Active Gabapentin 300 MG TAKE ONE CAPSULE BY MOUTH THREE TIMES DAILY 12h 30 Active Invokana 100 MG Orally Once a day 1 tablet 24h 10 Sep, 2015 90 days Active Atorvastatin Calcium 40 mg Orally Once a day 1 tablet at bedtime 24h 90 days Active Aspirin 81 MG Orally Once a day 1 tablet 24h Aug, 30 day(s) Active Keflex 500 mg Orally 3 times a day 1 capsule 8h Dec, Dec, 07 days Active Flector 1.3 % Transdermal 1-2 times a day 1 patch to skin Mar, Active Aricept 5 mg TAKE ONE TABLET BY MOUTH ONCE DAILY AT BEDTIME 30 Active Neurontin 300 MG Orally 3 times a day 1 capsule 8h Dec, 30 days Active Sertraline HCl 100 MG Orally Once a day 1 tablet 24h 30 Active Blood Glucose Monitor System N/A test blood sugar 24h Jul, Active Test strips Test Strips ICD10- E11.9 2 times a day test blood sugar 12h Oct, Active Carvedilol 3.125 MG Orally 2 times a day 1 tablet 12h 30 Active Levothyroxine Sodium 50 MCG TAKE ONE TABLET BY MOUTH ON AN EMPTY STOMACH IN THE MORNING ONCE DAILY FOR 30 DAYS 30 Active Tylenol 325 MG Orally every 6 hrs 2 tablet as needed 6h Aug, Active Bydureon 2 MG Subcutaneous once weekly Inject 2mg 28 Active Milk of Magnesia 7.75 % Orally Once a day 5 ml as needed 24h Dec, Active Wheelchair - as directed Jan, Active Megace ES 625 MG/5ML Orally Once a day 4 ml 24h Feb, Active Levetiracetam 500 MG Orally Twice a day 1 tablet 12h 90 Active RESULTS No Results PROCEDURES Procedure Date Ordered Result Body Site [facility] VISIT ESTABLISHED PATIENT January 05, 2017 INSTRUCTIONS MEDICATIONS ADMINISTERED No Known Medications [...] History Post Stroke pt went to [facility] and then [facility] 10/15/15 Hospitalization History Hypotension, Wander ateral leg weakness--[facility] 01/15/16 Hospitalization History hypertension/chest pain 03/2017
--- OUTSIDE RECORDS SUMMARY | 2023-03-21 11:26 | XMS REPORT ---
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 76845562 Problem Bilateral hearing loss, unspecified hearing loss type H91.93 Active 95778234 Problem 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 Active 71309034 1 Problem Left-sided muscle weakness M62.81 Active 813993424 Problem SNHL (sensory-neural hearing loss), 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 Active 029260724 Problem Panic attack F41.0 Active 765399118 Problem Other chronic pain G89.29 Active 67874 001 Problem History of cerebrovascular accident with hemiparesis or hemiplegia Z86.73 Active 849968910 Problem Hypertension I10 Active 98360547 Problem Dementia with behavioral disturbance, unspecified dementia type F03.91 Active 4175905465417 Problem 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 Active 200130231685 Problem Anxiety F41.9 Active 78222838 Problem Vascular dementia without behavioral disturbance F01.50 Active 463775058 Problem Hypothyroidism (acquired) E03.9 Active 869880372 Problem 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 Active 59942419 ALLERGIES Substance Reaction Event Type Date Status Victoza stomach upset Drug Allergy Jun, Active ENCOUNTERS Encounter Location Date Diagnosis [facility] [address] [facility] [id number] [address] November, [facility] [address] [id number] [place] [address] November, Chronic cough R05 and Cardiomegaly I51.7 [place] [address] [address] Oct, Medicare annual wellness visit, initial Z00.00 [...] seizures R56.1 and Encounter for immunization Z23 [place] [address] [address] Sep, [place] [address] [address] Jul, [place] [address] [address] Jul, [place] [address] [address] Jun, Anxiety F41.9 and 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 [place] [address] [address] Jun, Bronchitis J40 and Bilateral hearing loss, unspecified hearing loss type H91.93 [place] [address] [id number] [place] [address] Jun, [place] [address] [address] Apr, [place] [address] [id number] [place] [address] Apr, Encounter for immunization Z23 and Left breast mass N63.20 [place] [address] [address] Apr, [facility] [id number] [place] [address] Mar, CVA (cerebral vascular accident) I63.9 ; Hypertension I10 ; 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 ; Type 2 diabetes mellitus with diabetic neuropathy, 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 and Left breast mass N63 [facility] [id number] [place] [address] Mar, Mild episode of recurrent major depressive disorder F33.0 and Anxiety F41.9 [facility] [id number] [place] [address] Mar, Breast mass, left N63 [facility] [id number] [place] [address] Mar, Breast mass, left N63 [facility] [id number] [place] [address] Feb, [facility] [id number] [place] [address] Feb, [facility] [id number] [place] [address] Feb, [facility] [id number] [place] [address] Feb, [facility] [id number] [place] [address] Feb, Onychomycosis B35.1 and Type 2 diabetes mellitus with complication E11.8 [facility] [id number] [place] [address] Jan, Mild episode of recurrent major depressive disorder F33.0 and Anxiety F41.9 [facility] [address] [address] Jan, [facility] [id number] [place] [address] Dec, Onychomycosis due to dermatophyte B35.1 ; 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 ; Type 2 diabetes mellitus with diabetic neuropathy, 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 ; Falls frequently R29.6 ; Neuropathy G62.9 ; Dementia with behavioral disturbance, unspecified dementia type F03.91 ; Hypothyroidism (acquired) E03.9 and Left hand pain M79.642 [place] [id number] [place] [address] Dec, [place] [address] [address] [id number] [place] [address] Dec, Hypothyroidism (acquired) E03.9 [place] [address] [id number] [place] [address] Dec, 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 [place] [address] [id number] [place] [address] November, Hypothyroidism (acquired) E03.9 [place] [address] [address] [id number] [place] [address] Oct, [place] [address] [address] [id number] [place] [address] Oct, 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 [place] [address] [address] [id number] [place] [address] Oct, [place] [address] [address] [id number] [place] [address] Oct, Dysuria R30.0 ; 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 ; Bilateral hearing loss, unspecified hearing loss type H91.93 and 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 [place] [address] [id number] [place] [address] Sep, [facility] [id number] [place] [address] Sep, Open wound of right great toe, initial encounter S91.101A [place] [address] [address] [id number] [place] [address] Sep, Breast mass, left N63 ; Non-insulin dependent type 2 diabetes mellitus E11.9 and Vascular dementia without behavioral disturbance F01.50 [place] [address] [id number] [place] [address] Sep, [place] [address] [id number] [place] [address] Jul, [place] [address] [address] [id number] [place] [address] Jul, Diabetes E11.9 ; Diaper dermatitis L22 ; Candidiasis of skin and nail B37.2 ; Neuropathy G62.9 ; Status post stroke Z86.73 ; Unsteadiness on feet R26.81 and 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 [place] [address] [place] [id number] [place] [address] May, [place] [address] [id number] [place] [address] May, [place] [address] [place] [id number] [place] [address] May, [place] [address] [id number] [place] [address] May, Dementia with behavioral disturbance, unspecified dementia type F03.91 [place] [address] [id number] [place] [address] 16 May, 2016 Dementia with behavioral disturbance, unspecified dementia type F03.91 ; Encounter for immunization Z23 and Diabetes E11.9 [place] [address] [id number] [place] [address] May, [place] [address] [address] [id number] [place] [address] May, Neuropathy G62.9 [place] [address] [address] [id number] [place] [address] May, [place] [address] [address] Apr, Hypothyroidism (acquired) E03.9 [place] [address] [address] Apr, CVA (cerebral vascular accident) I63.9 ; Left hand weakness M62.81 and Neuropathy G62.9 [place] [address] [address] Apr, Hypokalemia E87.6 [place] [address] [address] Apr, Hypokalemia E87.6 [place] [address] [address] Mar, Diabetes E11.9 ; Edema, unspecified type R60.9 ; Anxiety disorder, unspecified F41.9 ; Pain in left knee M25.562 ; Other chronic pain G89.29 and Status post stroke Z86.73 [place] [address] [id number] [place] [address] Mar, [place] [address] [address] [id number] [place] [address] Mar, [place] [address] [address] 07 Mar, 2016 Neuropathy G62.9 [place] [address] [id number] [place] [address] Feb, Anorexia R63.0 and Neuropathy G62.9 [place] [address] [place] [id number] [place] [address] Jan, Diabetes E11.9 ; Neuropathy G62.9 ; Panic attack F41.0 ; Pain in left knee M25.562 and Hypertension 401.9 [place] [id number] [place] [address] Jan, Weakness R53.1 ; Fatigue, unspecified type R53.83 ; Falling episodes R29.6 and Neuropathy G62.9 [place] [address] [place] [id number] [place] [address] Jan, Pain in left knee M25.562 [place] [address] [place] [id number] [place] [address] Jan, [place] [address] [place] [id number] [place] [address] Jan, [place] [address] [address] [id number] [place] [address] Jan, [place] [address] [id number] [place] [address] Dec, Diabetes E11.9 ; Neuropathy G62.9 and Dementia F03.90 [place] [address] [place] [id number] [place] [address] Dec, [place] [address] [id number] [place] [address] Dec, Neuropathy G62.9 ; Diabetes E11.9 ; Anxiety F41.9 and Constipation, unspecified constipation type K59.00 [place] [address] [place] [id number] [place] [address] Dec, [place] [address] [place] [id number] [place] [address] Dec, Anxiety F41.9 [place] [address] [place] [id number] [place] [address] November, [place] [address] [place] [id number] [place] [address] November, Pain in left knee M25.562 ; Other chronic pain G89.29 ; Diabetes E11.9 and Left eye pain H57.12 [place] [address] [address] November, [facility] [id number] [place] [address] November, Hearing loss, unspecified laterality H91.90 [facility] [address] [address] November, [facility] [id number] [place] [address] November, [facility] [id number] [place] [address] November, Pain in right knee M25.561 [facility] [id number] [place] [address] November, [facility] [id number] [place] [address] Oct, [facility] [address] [address] Oct, [facility] [id number] [place] [address] Oct, Edema of left lower extremity R60.0 ; Diabetes E11.9 ; 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 I63.39 and Anxiety disorder, unspecified F41.9 [facility] [address] [address] Oct, Panic attack F41.0 [facility] [address] [address] Oct, [facility] [id number] [place] [address] Oct, CVA (cerebral vascular accident) I63.9 [facility] [address] [address] Oct, [facility] [id number] [address] Oct, Diabetes E11.9 ; Hypertension I10 and Dementia F03.90 [facility] [address] [id number] [place] [address] Sep, [facility] [id number] [place] [address] Sep, [facility] [address] [id number] [place] [address] Sep, Diabetes E11.9 ; 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 ; Onychomycosis B35.1 and Fatigue R53.83 [place] [address] [place] [id number] [place] [address] Aug, [place] [address] [place] [id number] [place] [address] Aug, [place] [address] [place] [id number] [place] [address] Jul, [facility] [id number] [place] [address] Jul, [place] [address] [place] [id number] [place] [address] Jun, 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 [place] [address] [place] [id number] [place] [address] Jun, Anxiety disorder, unspecified F41.9 and Major depressive disorder, single episode, moderate F32.1 [facility] [address] [address] Jun, [place] [address] [place] [id number] [place] [address] Jun, [facility] [id number] [place] [address] May, Left knee pain M25.562 [facility] [id number] [place] [address] 16 May, 2015 [facility] [id number] [place] [address] May, [facility] [id number] [place] [address] May, [facility] [address] [address] May, Hypertension I10 ; Diabetes E11.9 and Depression F32.9 [facility] [address] [address] May, [facility] [address] [address] Apr, Left knee pain M25.562 ; Type 2 diabetes mellitus with complication E11.8 and Encounter for immunization Z23 [facility] [id number] [place] [address] Apr, [facility] [id number] [place] [address] Apr, [facility] [id number] [place] [address] Mar, [facility] [id number] [place] [address] Mar, Silvestre stanley 727.51 [facility] [id number] [place] [address] Mar, [facility] [id number] [place] [address] Mar, [facility] [id number] [place] [address] Mar, [facility] [id number] [place] [address] Feb, [facility] [id number] [address] Feb, [facility] [address] [address] Feb, Hypertension 401.9 and Diabetes 250.00 [facility] [address] [address] Jan, [facility] [id number] [place] [address] Jan, Diabetes 250.00 [facility] [id number] [place] [address] Jan, [facility] [id number] [place] [address] Jan, [facility] [address] [address] Dec, Diabetes 250.00 and Forgetfulness 780.99 [facility] [address] [address] Dec, [facility] [address] [address] Dec, Diabetes mellitus 250.00 [facility] [address] [address] Dec, [facility] [address] [address] Dec, [facility] [address] [address] Dec, [facility] [address] [address] Dec, Diabetes 250.00 and Dysthymia 300.4 [facility] [address] [address] Dec, [facility] [address] [address] Dec, Grief 309.0 and Diabetes mellitus 250.00 [facility] [address] [facility] [place] [id number] [place] [address] 14 Oct, 2014 [facility] [address] [facility] [place] [id number] [address] Oct, [facility] [address] [facility] [place] [id number] [place] [address] Jul, [facility] [address] [facility] [place] [id number] [place] [address] Jul, [facility] [address] [facility] [place] [id number] [place] [address], [place] [address] Jul, [facility] [address] [facility] [place] [id number] [place] [address] Jul, [facility] [id number] [place] [address] Jul, [facility] [address] [facility] [place] [id number] [place] [address] May, [facility] [address] [address] May, [facility] [address] [id number] [address] Apr, [facility] [address] [address] Apr, [facility] [address] [facility] [place] [id number] [place] [address] Mar, [facility] [address] [facility] [place] [id number] [place] [address] Mar, [facility] [address] [facility] [place] [id number] [place] [address] Feb, [facility] [id number] [address] Feb, [facility] [place] [facility] [address] [id number] [place] [address] Feb, [facility] [place] [facility] [address] [id number] [place] [address] Feb, [facility] [place] [facility] [address] [id number] [place] [address] Feb, [facility] [place] [facility] [address] [id number] [place] [address] Feb, [facility] [place] [facility] [address] [id number] [place] [address] November, [facility] [place] [facility] [address] [id number] [place] [address] November, [facility] [place] [facility] [address] [id number] [place] [address] Sep, [facility] [place] [facility] [address] [id number] [place] [address] Sep, [facility] [place] [facility] [address] [id number] [place] [address] Sep, [facility] [place] [facility] [address] [id number] [place] [address] Sep, [facility] [place] [facility] [address] [id number] [place] [address] Sep, [facility] [place] [facility] [address] [id number] [place] [address] Sep, [facility] [place] [facility] [address] [id number] [place] [address] Sep, [facility] [place] [facility] [address] [id number] [place] [address] Sep, [facility] [place] [facility] [address] [id number] [place] [address] Aug, [facility] [place] [facility] [address] [id number] [place] [address] Aug, [facility] [place] [facility] [address] [id number] [place] [address] Jul, [facility] [place] [facility] [address] [id number] [place] [address] Jul, [facility] [place] [facility] [address] [facility] [place] [id number] [place] [address] Jul, [facility] [place] [facility] [address] [id number] [place] [address] Jul, [facility] [place] [facility] [address] [id number] [place] [address] Jun, [facility] [place] [facility] [address] [id number] [place] [address] Jun, [facility] [place] [facility] [address] [id number] [place] [address] May, [facility] [place] [facility] [address] [id number] [place] [address] May, [facility] [place] [facility] [address] [id number] [place] [address] May, [facility] [place] [facility] [address] [id number] [place] [address] May, [facility] [place] [facility] [address] [id number] [place] [address] May, [facility] [place] [facility] [address] [id number] [place] [address] May, [facility] [place] [facility] [address] [id number] [place] [address] Apr, [facility] [place] [facility] [address] [id number] [place] [address] Apr, [facility] [place] [facility] [address] [id number] [place] [address] 16 Apr, 2013 [facility] [place] [facility] [address] [id number] [place] [address] 16 Apr, 2013 [facility] [address] [id number] [place] [address] 27 Mar, 2013 [facility] [address] [id number] [place] [address] 27 Mar, 2013 [facility] [address] [id number] [place] [address] 18 Jan, 2013 [facility] [address] [id number] [place] [address] Jan, [facility] [address] [id number] [place] [address] Jan, [facility] [address] [id number] [place] [address] November, [facility] [address] [id number] [place] [address] November, [facility] [address] [id number] [place] [address] November, [facility] [address] [id number] [place] [address] November, [facility] [address] [id number] [place] [address] Aug, [facility] [address] [id number] [place] [address] Jul, [facility] [address] [id number] [place] [id number] Jul, [facility] [address] [id number] [place] [address] Jul, [facility] [address] [id number] [place] [address] Jun, [facility] [address] [id number] [place] [address] Jun, [facility] [place] [facility] [address] [id number] [place] [address] May, [facility] [place] [facility] [address] [id number] [place] [address] May, [facility] [place] [facility] [address] [id number] [place] [address] Apr, [facility] [place] [facility] [address] [id number] [place] [address] Apr, [facility] [place] [facility] [address] [id number] [place] [address] Apr, [facility] [place] [facility] [address] [id number] [place] [address] Apr, [facility] [place] [facility] [address] [id number] [place] [address] Apr, [facility] [place] [facility] [address] [id number] [place] [address] Apr, [facility] [place] [facility] [address] [id number] [place] [address] Apr, [facility] [place] [facility] [address] [facility] [id number] [address] Apr, [facility] [place] [facility] [address] [id number] [place] [address] Apr, [facility] [place] [facility] [address] [id number] [place] [address] Mar, [facility] [place] [facility] [address] [id number] [place] [address] Feb, [facility] [place] [facility] [address] [id number] [place] [address] November, [facility] [place] [facility] [address] [id number] [place] [address] November, [facility] [place] [facility] [address] [id number] [place] [address] November, [facility] [id number] [place] [address] November, [facility] [id number] [address] Jun, [facility] [id number] [address] Jun, [facility] [address] [id number] [address] May, [facility] [id number] [place] [address] May, [facility] [id number] [place] [address] Apr, [facility] [id number] [place] [address] Apr, [facility] [id number] [address] May, [facility] [id number] [address] Apr, [facility] [address] [address] Apr, [facility] [address] [address] Apr, [facility] [address] [address] Apr, IMMUNIZATIONS No Known Immunizations SOCIAL HISTORY Never Assessed REASON FOR VISIT cough with congestion: states has been feeling bad for the past couple of weeks, lost voice for several days. Having earache on right side randal alan PLAN OF CARE Activity Details VITAL SIGNS Height 62 in 2017-07-01 Weight 171 lbs 2017-07-01 Temperature 97.9 degrees Fahrenheit Heart Rate 64 bpm 2017-07-01 Respiratory Rate 2017-07-01 Oximetry 98 % 2017-07-01 BMI 31.27 kg/m2 2017-07-01 Blood pressure systolic 104 mmHg Blood pressure diastolic 56 mmHg 2017-06 MEDICATIONS Medication Instructions Dosage Frequency Start Date End Date Duration Status Blood Glucose Monitor System N/A test blood sugar 24h Jul, Active Carvedilol 3.125 MG Orally 2 times a day 1 tablet 12h 30 Active Tylenol 325 MG Orally every 6 hrs 2 tablet as needed 6h 25 Aug, 2015 Active Levothyroxine Sodium 50 MCG TAKE ONE TABLET BY MOUTH ON AN EMPTY STOMACH IN THE MORNING ONCE DAILY FOR 30 DAYS 30 Active Bydureon 2 MG Subcutaneous once weekly Inject 2mg 28 Active Aggrenox 25-200 MG Orally Twice a day 1 capsule 12h 90 days Active Levetiracetam 500 MG Orally Twice a day 1 tablet 12h 90 Active Norvasc 10 MG Orally Once a day 1 tablet 24h Active Azithromycin 250 MG Orally Once a day 2 tablets on the first day, then 1 tablet daily for 4 days 24h Jun, Jun, 5 day(s) Active Gabapentin 300 MG Orally 3 times a day TAKE ONE CAPSULE BY MOUTH THREE TIMES DAILY 8h Active Test strips Test Strips ICD10- E11.9 2 times a day test blood sugar 12h Oct, Active Sertraline HCl 100 MG TAKE ONE AND ONE-HALF TABLETS BY MOUTH ONCE DAILY. 90 Active Tessalon Perles 100 mg Orally Three times a day 1 capsule as needed 8h Jun, 3 Jul, 2017 14 days Active MetFORMIN HCl ER 750 MG Orally Once a day 1 tablet with meals 24h Feb, Active Atorvastatin Calcium 40 mg Orally Once a day 1 tablet at bedtime 24h 90 Active Wheelchair - as directed Jan, Active Aricept 5 mg TAKE ONE TABLET BY MOUTH ONCE DAILY AT BEDTIME 30 Active RESULTS No Results PROCEDURES Procedure Date Ordered Result Body Site MEASURE BLOOD OXYGEN LEVEL Jul 01, 2017 [facility] VISIT ESTABLISHED PATIENT Jul 01, 2017 INSTRUCTIONS MEDICATIONS ADMINISTERED No Known Medications [...] Hospitalization History Post Stroke pt went to [facility] and then [facility] 10/15/15 Hospitalization History Hypotension, Wander ateral leg weakness--Via [facility] 01/15/16 Hospitalization History hypertension/chest pain 03/2017
--- OUTSIDE RECORDS SUMMARY | 2023-03-21 11:26 | XMS REPORT ---
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 47759903 Problem Bilateral hearing loss, unspecified hearing loss type H91.93 Active 46874534 Problem 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 Active 28796365 1 Problem Left-sided muscle weakness M62.81 Active 504061238 Problem SNHL (sensory-neural hearing loss), 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 Active 636691925 Problem Panic attack F41.0 Active 205026884 Problem Other chronic pain G89.29 Active 75964 001 Problem History of cerebrovascular accident with hemiparesis or hemiplegia Z86.73 Active 675095451 Problem Hypertension I10 Active 59007829 Problem Dementia with behavioral disturbance, unspecified dementia type F03.91 Active 0077831407527 Problem 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 Active 106921139852 Problem Anxiety F41.9 Active 83756634 Problem Vascular dementia without behavioral disturbance F01.50 Active 279668286 Problem Hypothyroidism (acquired) E03.9 Active 408684885 Problem 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 Active 40485228 ALLERGIES No Information ENCOUNTERS Encounter Location Date Diagnosis [facility] [id number] [address] Feb, [facility] [id number] [address] Feb, [place] [id number] [place] [address] Dec, Anxiety F41.9 and 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 [place] [id number] [place] [address] November, [place] [address] [address] November, Chronic cough R05 and Cardiomegaly I51.7 [place] [address] [address] Oct, Medicare annual wellness visit, initial Z00.00 [...] seizures R56.1 and Encounter for immunization Z23 [place] [address] [address] Sep, [place] [address] [address] Jul, [place] [address] [address] Jul, [place] [address] [address] Jun, Anxiety F41.9 and 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 [place] [id number] [place] [address] Jun, Bronchitis J40 and Bilateral hearing loss, unspecified hearing loss type H91.93 [place] [address] [address] Jun, [facility] [id number] [place] [address] Apr, [place] [id number] [place], [place] [address] Apr, Encounter for immunization Z23 and Left breast mass N63.20 [place] [id number] [place] [address] 16 Apr, 2017 [facility] [id number] [place] [address] 27 Mar, 2017 CVA (cerebral vascular accident) I63.9 ; Hypertension I10 ; 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 ; Type 2 diabetes mellitus with diabetic neuropathy, 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 and Left breast mass N63 [place] [id number] [place] [address] Mar, Mild episode of recurrent major depressive disorder F33.0 and Anxiety F41.9 [place] [id number] [place] [address] Mar, Breast mass, left N63 [place] [id number] [place] [address] Mar, Breast mass, left N63 [place] [id number] [place] [address] Feb, [place] [id number] [place] [address] Feb, [facility] [id number] [place] [address] Feb, [place] [id number] [place] [address] Feb, [facility] [id number] [place] [address] Feb, Onychomycosis B35.1 and Type 2 diabetes mellitus with complication E11.8 [place] [address] [place] [address] Jan, Mild episode of recurrent major depressive disorder F33.0 and Anxiety F41.9 [place] [id number] [place] [address] Jan, [place] [id number] [place] [address] Dec, Onychomycosis due to dermatophyte B35.1 ; 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 ; Type 2 diabetes mellitus with diabetic neuropathy, 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 ; Falls frequently R29.6 ; Neuropathy G62.9 ; Dementia with behavioral disturbance, unspecified dementia type F03.91 ; Hypothyroidism (acquired) E03.9 and Left hand pain M79.642 [place] [id number] [place] [address] Dec, [place] [id number] [place] [address] Dec, Hypothyroidism (acquired) E03.9 [place] [id number] [place] [address] Dec, 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 [place] [id number] [place] [address] November, Hypothyroidism (acquired) E03.9 [place] [id number] [place] [address] Oct, [place] [id number] [place] [address] Oct, 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 [id number] [place] [address] Sep, Open wound of right great toe, initial encounter S91.101A [place] [address] [address] Sep, Breast mass, left N63 ; Non-insulin dependent type 2 diabetes mellitus E11.9 and Vascular dementia without behavioral disturbance F01.50 [place] [id number] [place] [address] Sep, [place] [address] [address] Jul, [place] [id number] [place] [address] Jul, Diabetes E11.9 ; Diaper dermatitis L22 ; Candidiasis of skin and nail B37.2 ; Neuropathy G62.9 ; Status post stroke Z86.73 ; Unsteadiness on feet R26.81 and 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 [place] [id number] [place] [address] May, [place] [id number] [place] [address] May, [place] [id number] [place] [address] May, [place] [id number] [place] [address] May, Dementia with behavioral disturbance, unspecified dementia type F03.91 [place] [id number] [place] [address] May, Dementia with behavioral disturbance, unspecified dementia type F03.91 ; Encounter for immunization Z23 and Diabetes E11.9 [place] [address] [address] May, [place] [id number] [place] [address] May, Neuropathy G62.9 [place] [address] [address] May, [place] [address] [address] Apr, Hypothyroidism (acquired) E03.9 [place] [address] [address] Apr, CVA (cerebral vascular accident) I63.9 ; Left hand weakness M62.81 and Neuropathy G62.9 [place] [address] [address] Apr, Hypokalemia E87.6 [place] [id number] [place] [address] Apr, Hypokalemia E87.6 [place] [id number] [place] [address] Mar, Diabetes E11.9 ; Edema, unspecified type R60.9 ; Anxiety disorder, unspecified F41.9 ; Pain in left knee M25.562 ; Other chronic pain G89.29 and Status post stroke Z86.73 [place] [id number] [place] [address] 15 Mar, 2016 [place] [id number] [place] [address] 15 Mar, 2016 [place] [id number] [place] [address] 07 Mar, 2016 Neuropathy G62.9 [place] [address] [address] Feb, Anorexia R63.0 and Neuropathy G62.9 [facility] [address] [address] Jan, Diabetes E11.9 ; Neuropathy G62.9 ; Panic attack F41.0 ; Pain in left knee M25.562 and Hypertension 401.9 [facility] [address] [address] Jan, Weakness R53.1 ; Fatigue, unspecified type R53.83 ; Falling episodes R29.6 and Neuropathy G62.9 [address] [place] [address] [address] Jan, Pain in left knee M25.562 [place] [id number] [address] Jan, [place] [address] [address] Jan, [facility] [address] [address] Jan, [place] [address] [address] Dec, Diabetes E11.9 ; Neuropathy G62.9 and Dementia F03.90 [facility] [address] [address] Dec, [facility] [address] [address] Dec, Neuropathy G62.9 ; Diabetes E11.9 ; Anxiety F41.9 and Constipation, unspecified constipation type K59.00 [facility] [address] [address] Dec, [facility] [address] [address] Dec, Anxiety F41.9 [facility] [id number] [place] [address] November, [facility] [id number] [place] [address] November, Pain in left knee M25.562 ; Other chronic pain G89.29 ; Diabetes E11.9 and Left eye pain H57.12 [facility] [id number] [place] [address] November, [facility] [id number] [place] [address] November, Hearing loss, unspecified laterality H91.90 [place] [id number] [place] [address] November, [place] [id number] [place] [address] November, [facility] [id number] [place] [address] November, Pain in right knee M25.561 [place] [id number] [place] [address] November, [facility] [id number] [place] [address] Oct, [place] [id number] [place] [address] Oct, [facility] [id number] [place] [address] Oct, Edema of left lower extremity R60.0 ; Diabetes E11.9 ; 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 I63.39 and Anxiety disorder, unspecified F41.9 [facility] [address] [place] [address] 14 Oct, 2015 Panic attack F41.0 [facility] [id number] [place] [address] 14 Oct, 2015 [facility] [address], [place] [address] Oct, CVA (cerebral vascular accident) I63.9 [facility] [id number] [place] [address] Oct, [place] [id number] [place] [address] Oct, Diabetes E11.9 ; Hypertension I10 and Dementia F03.90 [place] [id number] [place] [address] Sep, [place] [id number] [place] [address] Sep, [place] [id number] [place] [address] Sep, Diabetes E11.9 ; 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 ; Onychomycosis B35.1 and Fatigue R53.83 [place] [id number] [place] [address] Aug, [place] [id number] [place] [address] Aug, [place] [id number] [place] [address] Jul, [place] [id number] [place] [address] Jul, [facility] [id number] [place] [address] Jun, 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 [facility] [id number] [place] [address] Jun, Anxiety disorder, unspecified F41.9 and Major depressive disorder, single episode, moderate F32.1 [place] [id number] [place] [address] Jun, [facility] [id number] [place] [address] Jun, [facility] [id number] [place] [address] May, Left knee pain M25.562 [facility] [address] [address] May, [facility] [address] [address] May, [facility] [address] [address] May, [facility] [address] [address] May, Hypertension I10 ; Diabetes E11.9 and Depression F32.9 [facility] [address] [address] May, [facility] [address] [address] Apr, Left knee pain M25.562 ; Type 2 diabetes mellitus with complication E11.8 and Encounter for immunization Z23 [facility] [id number] [place] [address] Apr, [facility] [id number] [place] [address] Apr, [facility] [id number] [place] [address] Mar, [facility] [address] [address] Mar, Silvestre stanley 727.51 [facility] [id number] [place] [address] Mar, [facility] [address] [place] [address] Mar, [facility] [address], [place] [address] Mar, [facility] [address], [place] [address] Feb, [facility] [address], [place] [address] Feb, [facility] [address], [place] [address] Feb, Hypertension 401.9 and Diabetes 250.00 [facility] [address] [place] [address] Jan, [facility] [address], [place] [address] Jan, Diabetes 250.00 [facility] [address], [place] [address] Jan, [facility] [address], [place] [address] Jan, [facility] [address], [place] [address] Dec, Diabetes 250.00 and Forgetfulness 780.99 [facility] [address], [place] [address] Dec, [facility] [address], [place] [address] Dec, Diabetes mellitus 250.00 [facility] [address], [place] [address] Dec, [facility] [address], [place] [address] Dec, [facility] [id number], [place] [address] Dec, [facility] [address] [facility] [id number] [place] [address] 16 Dec, 2014 Diabetes 250.00 and Dysthymia 300.4 [facility] [address] [facility] [id number] [place] [address] 15 Dec, 2014 [facility] [address] [facility] [id number] [place] [address] 09 Dec, 2014 Grief 309.0 and Diabetes mellitus 250.00 [facility] [address] [facility] [id number] [place] [address] 14 Oct, 2014 [facility] [address] [facility] [id number] [place] [address], [place] [address] Oct, [facility] [address] [facility] [id number] [place] [address] Jul, [facility] [address] [place] [address] Jul, [facility] [id number] [place] [address] Jul, [facility] [id number] [place] [address] Jul, [facility] [id number] [place] [address] Jul, [facility] [id number] [place] [address] May, [facility] [address] [facility] [id number] [place] [address] May, [facility] [id number] [place] [address] Apr, [facility] [address] [facility] [id number] [place] [address] Apr, [facility] [id number] [place] [address] Mar, [facility] [place] [facility] [address] [id number] [place] [address] Mar, [facility] [place] [facility] [address] [id number] [place] [address] Feb, [facility] [place] [facility] [address] [id number] [place] [address] Feb, [facility] [place] [facility] [address] [id number] [place] [address] Feb, [facility] [place] [facility] [address] [id number] [place] [address] Feb, [facility] [place] [facility] [address] [id number] [place] [address] Feb, [facility] [place] [facility] [address] [id number] [place] [address] Feb, [facility] [place] [facility] [address] [id number] [place] [address] November, [facility] [place] [facility] [address] [id number] [place] [address] November, [facility] [place] [facility] [address] [id number] [place] [address] Sep, [facility] [place] [facility] [address] [id number] [place] [address] Sep, [facility] [place] [facility] [address] [id number] [place] [address] Sep, [facility] [place] [facility] [address] [id number] [place] [address] Sep, [facility] [place] [facility] [address] [id number] [place] [address] Sep, [facility] [place] [facility] [address] [id number] [place] [address] Sep, [facility] [place] [facility] [address] [id number] [place] [address] Sep, [facility] [place] [facility] [address] [id number] [place] [address] Sep, [facility] [place] [facility] [address] [id number] [place] [address] Aug, [facility] [place] [facility] [address] [facility] [id number] [place] [address] Aug, [facility] [place] [facility] [address] [id number] [place] [address] Jul, [facility] [place] [facility] [address] [id number] [place] [address] Jul, [facility] [place] [facility] [address] [id number] [place] [address] Jul, [facility] [place] [facility] [address] [id number] [place] [address] Jul, [facility] [place] [facility] [address] [id number], [place] [address] Jun, [facility] [place] [facility] [address] [id number], [place] [address] Jun, [facility] [place] [facility] [address] [id number] [place] [address] May, [facility] [place] [facility] [address] [id number], [place] [address] May, [facility] [place] [facility] [address] [id number], [place] [address] May, [facility] [place] [facility] [address] [id number] [place] [address] May, [facility] [place] [facility] [address] [id number], [place] [address] May, [facility] [place] [facility] [address] [facility] [id number], [place] [address] May, [facility] [place] [facility] [address] [id number] [place] [address] 17 Apr, 2013 [facility] [address] [id number] [place] [address] 17 Apr, 2013 [facility] [address] [id number] [place] [address] 16 Apr, 2013 [facility] [address] [id number] [place] [address] 16 Apr, 2013 [facility] [address] [id number] [place] [address] 27 Mar, 2013 [facility] [address] [id number] [place] [address] 27 Mar, 2013 [facility] [address] [id number] [place] [address] Jan, [facility] [address] [id number] [place] [address] Jan, [facility] [address] [id number] [place] [address] Jan, [facility] [address] [id number] [place] [address] November, [facility] [address] [id number] [place] [address] November, [facility] [address] [id number] [place] [address] November, [facility] [address] [id number] [place] [address] November, [facility] [address] [id number] [place] [address] Aug, [facility] [address] [id number] [place] [address] Jul, [facility] [address] [id number] [place] [address] Jul, [facility] [place] [facility] [address] [id number] [place] [address] Jul, [facility] [place] [facility] [address] [id number] [place] [address] Jun, [facility] [place] [facility] [address] [id number] [place] [address] Jun, [facility] [place] [facility] [address] [id number] [place] [address] May, [facility] [place] [facility] [address] [id number] [place] [address] May, [facility] [place] [facility] [address] [id number] [place] [address] Apr, [facility] [place] [facility] [address] [id number] [place] [address] Apr, [facility] [place] [facility] [address] [id number] [place] [address] Apr, [facility] [place] [facility] [address] [id number] [place] [address] Apr, [facility] [place] [facility] [address] [facility] [id number], [place] [address] Apr, [facility] [place] [facility] [address] [id number], [place] [address] Apr, [facility] [place] [facility] [address] [id number], [place] [address] Apr, [facility] [place] [facility] [address] [id number], [place] [address] Apr, [facility] [place] [facility] [address] [id number], [place] [address] Apr, [facility] [place] [facility] [address] [facility] [id number], [place] [address] Mar, [facility] [place] [facility] [address] [id number], [place] [address] Feb, [facility] [address] [facility] [id number], [place] [address] November, [facility] [address] [facility] [id number], [place] [address] November, [facility] [id number], [place] [address] November, [facility] [id number], [place] [address] November, [facility] [id number] [place] [id number] Jun, [facility] [id number], [place] [address] Jun, [facility] [id number], [place] [address] May, [facility] [id number], [place] [address] May, [facility] [id number], [place] [address] Apr, [facility] [id number], [place] [address] Apr, [facility] [id number], [place] [address] May, [facility] [id number], [place] [address] Apr, [facility] [id number], [place] [address] Apr, [facility] [id number], [place] [address] Apr, [facility] [id number], [place] [address] Apr, IMMUNIZATIONS No Known Immunizations SOCIAL HISTORY Never Assessed REASON FOR VISIT med refills PLAN OF CARE VITAL SIGNS MEDICATIONS Unknown [...] Hospitalization History Post Stroke pt went to [facility] and then [facility] 10/15/15 Hospitalization History Hypotension, Wander ateral leg weakness--Via [facility] 01/15/16 Hospitalization History hypertension/chest pain 03/2017
--- OUTSIDE RECORDS SUMMARY | 2023-03-21 11:26 | XMS REPORT ---
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 24979641 Problem Bilateral hearing loss, unspecified hearing loss type H91.93 Active 72744634 Problem 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 Active 37134669 1 Problem Left-sided muscle weakness M62.81 Active 730235372 Problem SNHL (sensory-neural hearing loss), 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 Active 162440018 Problem Panic attack F41.0 Active 788536997 Problem Other chronic pain G89.29 Active 28901 001 Problem History of cerebrovascular accident with hemiparesis or hemiplegia Z86.73 Active 649822824 Problem Hypertension I10 Active 22677366 Problem Dementia with behavioral disturbance, unspecified dementia type F03.91 Active 0404502033781 Problem 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 Active 798919323092 Problem Anxiety F41.9 Active 26894093 Problem Vascular dementia without behavioral disturbance F01.50 Active 512860207 Problem Hypothyroidism (acquired) E03.9 Active 119550652 Problem 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 [id number] [address] November, [facility] [address] [id number], [place] [address] November, Chronic cough R05 and Cardiomegaly I51.7 [place] [address] [address] Oct, Medicare annual wellness visit, initial Z00.00 [...] seizures R56.1 and Encounter for immunization Z23 [place] [address] [address] Sep, [place] [address] [address] Jul, [place] [address] [address] Jul, [place] [address] [address] Jun, Anxiety F41.9 and 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 [place] [address] [address] Jun, Bronchitis J40 and Bilateral hearing loss, unspecified hearing loss type H91.93 [place] [address] [address] Jun, [place] [address] [address] Apr, [place] [address] [address] Apr, Encounter for immunization Z23 and Left breast mass N63.20 [place] [address] [address] Apr, [facility] [address], [place] [address] Mar, CVA (cerebral vascular accident) I63.9 ; Hypertension I10 ; 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 ; Type 2 diabetes mellitus with diabetic neuropathy, 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 and Left breast mass N63 [facility] [id number] [place] [address] Mar, Mild episode of recurrent major depressive disorder F33.0 and Anxiety F41.9 [facility] [id number] [place] [address] Mar, Breast mass, left N63 [facility] [id number] [place] [address] Mar, Breast mass, left N63 [facility] [id number] [place] [address] Feb, [facility] [id number] [place] [address] Feb, [facility] [id number] [place] [address] Feb, [facility] [id number] [place] [address] Feb, [facility] [id number] [place] [address] Feb, Onychomycosis B35.1 and Type 2 diabetes mellitus with complication E11.8 [facility] [id number] [place] [address] Jan, Mild episode of recurrent major depressive disorder F33.0 and Anxiety F41.9 [facility] [address], [place] [address] Jan, [facility] [id number] [place] [address] Dec, Onychomycosis due to dermatophyte B35.1 ; 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 ; Type 2 diabetes mellitus with diabetic neuropathy, 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 ; Falls frequently R29.6 ; Neuropathy G62.9 ; Dementia with behavioral disturbance, unspecified dementia type F03.91 ; Hypothyroidism (acquired) E03.9 and Left hand pain M79.642 [place] [address] [address] Dec, [facility] [address] [address] Dec, Hypothyroidism (acquired) E03.9 [place] [address] [address] Dec, 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 [place] [address] [address] November, Hypothyroidism (acquired) E03.9 [facility] [address] [address] Oct, [place] [address] [address] Oct, 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 [place] [address] [address] Oct, [place] [address] [address] Oct, Dysuria R30.0 ; 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 ; Bilateral hearing loss, unspecified hearing loss type H91.93 and 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 [facility] [id number] [place] [address] Sep, [facility] [address] [address] Sep, Open wound of right great toe, initial encounter S91.101A [place] [id number] [place] [address] Sep, Breast mass, left N63 ; Non-insulin dependent type 2 diabetes mellitus E11.9 and Vascular dementia without behavioral disturbance F01.50 [place] [address] [address] [id number] [place] [address] Sep, [place] [address] [id number] [place] [address] Jul, [place] [address] [place] [address] [id number] [place] [address] Jul, Diabetes E11.9 ; Diaper dermatitis L22 ; Candidiasis of skin and nail B37.2 ; Neuropathy G62.9 ; Status post stroke Z86.73 ; Unsteadiness on feet R26.81 and 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 [place] [address] [id number] [place] [address] May, [place] [address] [address] [id number] [place] [address] May, [place] [address] [place] [address] [id number] [place] [address] May, [place] [address] [address] [id number] [place] [address] May, Dementia with behavioral disturbance, unspecified dementia type F03.91 [place] [address] [address] [id number] [place] [address] May, Dementia with behavioral disturbance, unspecified dementia type F03.91 ; Encounter for immunization Z23 and Diabetes E11.9 [place] [address] [address] May, [place] [address] [place] [id number] [place] [address] May, Neuropathy G62.9 [place] [address] [place] [address] May, [place] [address] [address] Apr, Hypothyroidism (acquired) E03.9 [place] [address] [address] 18 Apr, 2016 CVA (cerebral vascular accident) I63.9 ; Left hand weakness M62.81 and Neuropathy G62.9 [place] [address] [address] Apr, Hypokalemia E87.6 [place] [address] [address] Apr, Hypokalemia E87.6 [place] [address] [address] Mar, Diabetes E11.9 ; Edema, unspecified type R60.9 ; Anxiety disorder, unspecified F41.9 ; Pain in left knee M25.562 ; Other chronic pain G89.29 and Status post stroke Z86.73 [place] [address] [address] Mar, [place] [address] [address] Mar, [place] [address] [address] Mar, Neuropathy G62.9 [place] [address] [address] Feb, Anorexia R63.0 and Neuropathy G62.9 [place] [address] [place] [id number] Jan, Diabetes E11.9 ; Neuropathy G62.9 ; Panic attack F41.0 ; Pain in left knee M25.562 and Hypertension 401.9 [place] [address] [address] Jan, Weakness R53.1 ; Fatigue, unspecified type R53.83 ; Falling episodes R29.6 and Neuropathy G62.9 [facility] [id number] [place] [address] Jan, Pain in left knee M25.562 [facility] [id number] [place] [address] Jan, [facility] [id number] [place] [address] Jan, [place] [address] [address] Jan, [place] [address] [id number] [place] [address] Dec, Diabetes E11.9 ; Neuropathy G62.9 and Dementia F03.90 [place] [address] [place] [id number] [place] [address] Dec, [place] [address] [address] [id number] [place] [address] Dec, Neuropathy G62.9 ; Diabetes E11.9 ; Anxiety F41.9 and Constipation, unspecified constipation type K59.00 [place] [address] [id number] [place] [address] Dec, [place] [address] [address] [id number] [place] [address] Dec, Anxiety F41.9 [place] [address] [id number] [place] [address] November, [place] [id number] [place] [address] November, Pain in left knee M25.562 ; Other chronic pain G89.29 ; Diabetes E11.9 and Left eye pain H57.12 [place] [address] [id number] [place] [address] November, [facility] [address], [place] [address] November, Hearing loss, unspecified laterality H91.90 [facility] [address], [place] [address] November, [facility] [id number] [place] [address] November, [facility] [id number] [place] [address] November, Pain in right knee M25.561 [facility] [id number] [place] [address] November, [facility] [address] [place] [address] Oct, [facility] [id number] [place] [address] Oct, [facility] [address], [place] [address] Oct, Edema of left lower extremity R60.0 ; Diabetes E11.9 ; 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 I63.39 and Anxiety disorder, unspecified F41.9 [facility] [address], [place] [address] Oct, Panic attack F41.0 [facility] [address], [place] [address] 14 Oct, 2015 [facility] [address] [place] [address] 13 Oct, 2015 CVA (cerebral vascular accident) I63.9 [facility] [address], [place] [address] 13 Oct, 2015 [facility] [id number] [place] [address] Oct, Diabetes E11.9 ; Hypertension I10 and Dementia F03.90 [facility] [id number] [place] [address] Sep, [facility] [id number] [place] [address] Sep, [facility] [id number] [place] [address] Sep, Diabetes E11.9 ; 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 ; Onychomycosis B35.1 and Fatigue R53.83 [place] [address] [id number] [place] [address] Aug, [place] [address] [address] [id number] [place] [address] Aug, [facility] [id number] [place] [address] Jul, [facility] [id number] [place] [address] Jul, [facility] [id number] [place] [address] Jun, 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 [place] [id number] [place] [address] Jun, Anxiety disorder, unspecified F41.9 and Major depressive disorder, single episode, moderate F32.1 [facility] [id number] [place] [address] Jun, [facility] [id number] [place] [address] Jun, [facility] [id number] [place] [address] May, Left knee pain M25.562 [facility] [id number] [place] [address] May, [facility] [id number] [place] [address] May, [facility] [id number] [place] [address] May, [facility] [id number] [place] [address] May, Hypertension I10 ; Diabetes E11.9 and Depression F32.9 [facility] [address] [address] May, [facility] [address] [address] Apr, Left knee pain M25.562 ; Type 2 diabetes mellitus with complication E11.8 and Encounter for immunization Z23 [facility] [id number] [place] [address] Apr, [facility] [id number] [place] [address] Apr, [facility] [id number] [place] [address] Mar, [facility] [id number] [place] [address] Mar, Silvestre stanley 727.51 [facility] [id number] [place] [address] Mar, [facility] [id number] [place] [address] Mar, [facility] [id number] [place] [address] Mar, [facility] [id number] [place] [address] Feb, [facility] [id number] [place] [address] Feb, [facility] [id number], [place] [address] Feb, Hypertension 401.9 and Diabetes 250.00 [facility] [address], [place] [address] Jan, [facility] [address], [place] [address] Jan, Diabetes 250.00 [facility] [id number] [place] [address] Jan, [facility] [id number] [place] [address] Jan, [facility] [address], [place] [address] Dec, Diabetes 250.00 and Forgetfulness 780.99 [facility] [address], [place] [address] Dec, [facility] [address], [place] [address] Dec, Diabetes mellitus 250.00 [facility] [address], [place] [address] Dec, [facility] [address], [place] [address] Dec, [facility] [address], [place] [address] Dec, [facility] [id number], [place] [address] Dec, Diabetes 250.00 and Dysthymia 300.4 [facility] [address], [place] [address] Dec, [facility] [id number], [place] [address] Dec, Grief 309.0 and Diabetes mellitus 250.00 [facility] [address] [id number] [place] [address] 14 Oct, 2014 [facility] [address] [id number] [place] [address] Oct, [facility] [address] [id number] [place] [address] Jul, [facility] [place] [facility] [address] [id number] [place] [address] Jul, [facility] [address] [id number] [place] [address] Jul, [facility] [place] [facility] [address] [id number] [place] [address] Jul, [facility] [address] [id number] [place] [address] Jul, [facility] [address] [id number] [place] [address] May, [facility] [place] [facility] [address] [id number] [place] [address] May, [facility] [address] [id number] [place] [address] Apr, [facility] [place] [facility] [address] [id number] [place] [address] Apr, [facility] [place] [facility] [address] [id number], [place] [address] Mar, [facility] [place] [facility] [address] [id number] [place] [address] Mar, [facility] [place] [facility] [address] [id number] [place] [address] Feb, [facility] [place] [facility] [address] [id number], [place] [address] Feb, [facility] [place] [facility] [address] [id number], [place] [address] Feb, [facility] [place] [facility] [address] [id number] [place] [address] Feb, [facility] [place] [facility] [address] [id number] [place] [address] Feb, [facility] [place] [facility] [address] [id number] [place] [address] Feb, [facility] [place] [facility] [address] [id number] [place] [address] November, [facility] [place] [facility] [address] [id number] [place] [address] November, [facility] [place] [facility] [address] [id number] [place] [address] Sep, [facility] [place] [facility] [address] [id number] [place] [address] Sep, [facility] [place] [facility] [address] [id number] [place] [address] Sep, [facility] [place] [facility] [address] [id number] [place] [address] Sep, [facility] [place] [facility] [address] [id number] [place] [address] Sep, [facility] [place] [facility] [address] [id number] [place] [address] Sep, [facility] [place] [facility] [address] [id number] [place] [address] Sep, [facility] [place] [facility] [address] [id number] [place] [address] Sep, [facility] [place] [facility] [address] [id number] [place] [address] Aug, [facility] [place] [facility] [address] [id number] [place] [address] Aug, [facility] [place] [facility] [address] [id number] [place] [address] Jul, [facility] [place] [facility] [address] [id number] [place] [address] Jul, [facility] [place] [facility] [address] [id number] [place] [address] Jul, [facility] [place] [facility] [address] [id number] [place] [address] Jul, [facility] [place] [facility] [address] [id number] [place] [address] Jun, [facility] [place] [facility] [address] [id number] [place] [address] Jun, [facility] [place] [facility] [address] [id number] [place] [address] May, [facility] [place] [facility] [address] [id number] [place] [address] May, [facility] [place] [facility] [address] [id number] [place] [address] May, [facility] [place] [facility] [address] [id number] [place] [address] May, [facility] [place] [facility] [address] [id number] [place] [address] May, [facility] [place] [facility] [address] [id number] [place] [address] May, [facility] [place] [facility] [address] [id number] [place] [address] Apr, [facility] [place] [facility] [address] [id number] [place] [address] 17 Apr, 2013 [facility] [place] [facility] [address] [id number] [place] [address] 16 Apr, 2013 [facility] [place] [facility] [address] [id number] [place] [address] Apr, [facility] [address] [id number] [place] [address] Mar, [facility] [address] [id number] [place] [address] Mar, [facility] [address] [id number] [place] [address] Jan, [facility] [address] [id number] [place] [address] Jan, [facility] [address] [id number] [place] [address] Jan, [facility] [address] [id number] [place] [address] November, [facility] [address] [id number] [place] [address] November, [facility] [address] [id number] [place] [address] November, [facility] [address] [id number] [place] [address] November, [facility] [address] [id number] [place] [address] Aug, [facility] [address] [id number] [place] [address] Jul, [facility] [place] [facility] [address] [id number], [place] [address] Jul, [facility] [place] [facility] [address] [id number] [place] [address] Jul, [facility] [place] [facility] [address] [id number] [place] [address] Jun, [facility] [place] [facility] [address] [id number] [place] [address] Jun, [facility] [place] [facility] [address] [id number] [place] [address] May, [facility] [place] [facility] [address] [id number] [place] [address] May, [facility] [place] [facility] [address] [id number] [place] [address] Apr, [facility] [place] [facility] [address] [id number] [place] [address] Apr, [facility] [place] [facility] [address] [id number] [place] [address] Apr, [facility] [place] [facility] [address] [id number] [place] [address] Apr, [facility] [place] [facility] [address] [id number] [place] [address] Apr, [facility] [place] [facility] [address] [id number] [place] [address] Apr, [facility] [place] [facility] [address] [id number] [place] [address] Apr, [facility] [place] [facility] [address] [id number] [place] [address] Apr, [facility] [place] [facility] [address] [facility] [id number] [place] [address] Apr, [facility] [place] [facility] [address] [id number] [place] [address] Mar, [facility] [place] [facility] [address] [id number] [place] [address] Feb, [facility] [place] [facility] [address] [id number] [place] [address] November, [facility] [place] [facility] [address] [id number] [place] [address] November, [facility] [place] [facility] [address] [id number] [place] [address] November, [facility] [address] [place] [address] November, [facility] [address] [place] [address] Jun, [facility] [address] [place] [address] Jun, [facility] [id number] [place] [address] May, [facility] [address] [place] [address] May, [facility] [id number] [place] [address] Apr, [facility] [address] [place] [address] Apr, [facility] [id number] [place] [address] May, [facility] [address], [place] [address] Apr, [facility] [address] [place] [address] Apr, [facility] [address] [place] [address] Apr, [facility] [address] [place] [address] Apr, IMMUNIZATIONS No Known Immunizations SOCIAL HISTORY Never Assessed REASON FOR VISIT Medication question PLAN OF CARE VITAL SIGNS MEDICATIONS Unknown [...] Hospitalization History Post Stroke pt went to [facility] and then [facility] 10/15/15 Hospitalization History Hypotension, Wander ateral leg weakness--Via [facility] 01/15/16 Hospitalization History hypertension/chest pain 03/2017
--- OUTSIDE RECORDS SUMMARY | 2023-03-21 11:26 | XMS REPORT ---
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 46096727 Problem Left-sided muscle weakness M62.81 Active 723699659 Problem 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 Active 23462139 1 Problem Type 2 diabetes mellitus with diabetic neuropathy, 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 Active 77860567 Problem SNHL (sensory-neural hearing loss), 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 Active 121512214 Problem Bilateral hearing loss, unspecified hearing loss type H91.93 Active 34521855 Problem Hypertension I10 Active 72538596 Problem Panic attack F41.0 Active 663414612 Problem History of cerebrovascular accident with hemiparesis or hemiplegia Z86.73 Active 270913278 Problem Hypothyroidism (acquired) E03.9 Active 588904739 Problem Dementia with behavioral disturbance, unspecified dementia type F03.91 Active 2822228421962 Problem Other chronic pain G89.29 Active 98341 001 Problem 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 Active 475130612292 Problem Anxiety F41.9 Active 23963684 Problem Vascular dementia without behavioral disturbance F01.50 Active 518156027 ALLERGIES No Information ENCOUNTERS Encounter Location Date Diagnosis [facility] [address] [id number] [address] Oct, Medicare annual wellness visit, initial Z00.00 [...] seizures R56.1 and Encounter for immunization Z23 [place] [address] [address] Sep, [place] [address] [place] [id number] Jul, [place] [address] [address] Jul, [place] [address] [address] Jun, Anxiety F41.9 and 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 [place] [address] [address] Jun, Bronchitis J40 and Bilateral hearing loss, unspecified hearing loss type H91.93 [place] [address] [address] Jun, [place] [address] [address] Apr, [place] [address] [address] Apr, Encounter for immunization Z23 and Left breast mass N63.20 [place] [address] [address] Apr, [place] [address] [address] Mar, CVA (cerebral vascular accident) I63.9 ; Hypertension I10 ; 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 ; Type 2 diabetes mellitus with diabetic neuropathy, 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 and Left breast mass N63 [facility] [address] [place] [address] Mar, Mild episode of recurrent major depressive disorder F33.0 and Anxiety F41.9 [facility] [address] [place] [address] Mar, Breast mass, left N63 [facility] [address] [place] [id number] [place] [address] Mar, Breast mass, left N63 [facility] [address] [place] [id number] [place] [address] Feb, [facility] [address] [place] [id number] [place] [address] Feb, [facility] [address] [place] [id number] [place] [address] Feb, [facility] [address] [place] [id number] [place] [address] Feb, [facility] [address] [place] [id number] [place] [address] Feb, Onychomycosis B35.1 and Type 2 diabetes mellitus with complication E11.8 [facility] [address] [place] [address] Jan, Mild episode of recurrent major depressive disorder F33.0 and Anxiety F41.9 [facility] [address] [place] [address] Jan, [facility] [address] [place] [address] Dec, Onychomycosis due to dermatophyte B35.1 ; 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 ; Type 2 diabetes mellitus with diabetic neuropathy, 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 ; Falls frequently R29.6 ; Neuropathy G62.9 ; Dementia with behavioral disturbance, unspecified dementia type F03.91 ; Hypothyroidism (acquired) E03.9 and Left hand pain M79.642 [place] [address] [place] [address] Dec, [facility] [address] [place] [id number] [place] [address] Dec, Hypothyroidism (acquired) E03.9 [place] [address] [place] [id number] [place] [address] Dec, 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 [place] [address] [place] [id number] [place] [address] November, Hypothyroidism (acquired) E03.9 [place] [address] [place] [id number] [place] [address] Oct, [place] [address] [place] [id number] [place] [address] Oct, 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 [place] [address] [place] [id number] [place] [address] Oct, [place] [address] [place] [id number] [place] [address] Oct, Dysuria R30.0 ; 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 ; Bilateral hearing loss, unspecified hearing loss type H91.93 and 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 [place] [address] [place] [id number] [place] [address] Sep, [facility] [address] [place] [id number] [place] [address] Sep, Open wound of right great toe, initial encounter S91.101A [place] [address] [address] Sep, Breast mass, left N63 ; Non-insulin dependent type 2 diabetes mellitus E11.9 and Vascular dementia without behavioral disturbance F01.50 [place] [address] [place] [id number] [place] [address] Sep, [place] [address] [place] [id number] [place] [address] Jul, [place] [address] [address] Jul, Diabetes E11.9 ; Diaper dermatitis L22 ; Candidiasis of skin and nail B37.2 ; Neuropathy G62.9 ; Status post stroke Z86.73 ; Unsteadiness on feet R26.81 and 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 [place] [address] [place] [id number] [place] [address] May, [place] [address] [address] May, [place] [address] [address] May, [place] [address] [address] May, Dementia with behavioral disturbance, unspecified dementia type F03.91 [place] [address] [place] [id number] [place] [address] May, Dementia with behavioral disturbance, unspecified dementia type F03.91 ; Encounter for immunization Z23 and Diabetes E11.9 [place] [address] [place] [id number] [place] [address] May, [place] [address] [address] May, Neuropathy G62.9 [place] [address] [place] [id number] [place] [address] May, [place] [address] [address] Apr, Hypothyroidism (acquired) E03.9 [place] [address] [place] [id number] [place] [address] 18 Oct, 2016 CVA (cerebral vascular accident) I63.9 ; Left hand weakness M62.81 and Neuropathy G62.9 [place] [address] [place] [id number] [place] [address] Apr, Hypokalemia E87.6 [place] [address] [place] [id number] [place] [address] Apr, Hypokalemia E87.6 [place] [address] [address] Mar, Diabetes E11.9 ; Edema, unspecified type R60.9 ; Anxiety disorder, unspecified F41.9 ; Pain in left knee M25.562 ; Other chronic pain G89.29 and Status post stroke Z86.73 [place] [address] [place] [id number] [place] [address] 15 Mar, 2016 [place] [address] [address] Mar, [place] [address] [place] [id number] [place] [address] Mar, Neuropathy G62.9 [place] [address] [place] [id number] [place] [address] Feb, Anorexia R63.0 and Neuropathy G62.9 [place] [address] [place] [id number] [place] [address] Jan, Diabetes E11.9 ; Neuropathy G62.9 ; Panic attack F41.0 ; Pain in left knee M25.562 and Hypertension 401.9 [place] [address] [place] [id number] [place] [address] Jan, Weakness R53.1 ; Fatigue, unspecified type R53.83 ; Falling episodes R29.6 and Neuropathy G62.9 [place] [address] [place] [id number] [place] [address] Jan, Pain in left knee M25.562 [place] [address] [place] [id number] [place] [address] Jan, [facility] [address] [place] [id number] [place] [address] Jan, [facility] [address] [place] [id number] [place] [address] Jan, [facility] [address] [place] [id number] [place] [address] Dec, Diabetes E11.9 ; Neuropathy G62.9 and Dementia F03.90 [facility] [address] [place] [id number] [place] [address] Dec, [facility] [address] [place] [id number] [place] [address] Dec, Neuropathy G62.9 ; Diabetes E11.9 ; Anxiety F41.9 and Constipation, unspecified constipation type K59.00 [facility] [address] [place] [id number] [place] [address] Dec, [facility] [address] [place] [id number] [place] [address] Dec, Anxiety F41.9 [facility] [address] [place] [id number] [place] [address] November, [facility] [address] [place] [id number] [place] [address] November, Pain in left knee M25.562 ; Other chronic pain G89.29 ; Diabetes E11.9 and Left eye pain H57.12 [facility] [address] [place] [id number] [place] [address] November, [facility] [address] [place] [id number] [place] [address] November, Hearing loss, unspecified laterality H91.90 [facility] [address] [place] [id number] [place] [address] November, [facility] [address] [address] November, [facility] [address] [place] [id number] [place] [address] November, Pain in right knee M25.561 [facility] [address] [place] [address] November, [facility] [address] [place] [id number] [place] [address] Oct, [facility] [address] [place] [address] Oct, [facility] [address] [place] [id number] [place] [address] Oct, Edema of left lower extremity R60.0 ; Diabetes E11.9 ; 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 I63.39 and Anxiety disorder, unspecified F41.9 [facility] [address] [place] [id number] [place] [address] Oct, Panic attack F41.0 [facility] [address] [place] [id number] [place] [address] Oct, [facility] [address] [place] [address] Oct, CVA (cerebral vascular accident) I63.9 [facility] [address] [place] [address] Oct, [facility] [address] [place] [address] Oct, Diabetes E11.9 ; Hypertension I10 and Dementia F03.90 [facility] [address] [address] Sep, [facility] [address] [place] [address] Sep, [facility] [address] [place] [id number] [place] [address] Sep, Diabetes E11.9 ; 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 ; Onychomycosis B35.1 and Fatigue R53.83 [facility] [address] [place] [id number] [place] [address] Aug, [facility] [address] [place] [id number] [place] [address] Aug, [facility] [address] [place] [id number] [place] [address] Jul, [facility] [address] [place] [id number] [place] [address] Jul, [facility] [address] [place] [id number] [place] [address] Jun, 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 [facility] [address] [place] [id number] [place] [address] Jun, Anxiety disorder, unspecified F41.9 and Major depressive disorder, single episode, moderate F32.1 [facility] [address] [place] [id number] [place] [address] Jun, [facility] [address] [place] [id number] [place] [address] Jun, [facility] [address] [place] [id number] [place] [address] May, Left knee pain M25.562 [facility] [address] [place] [id number] [place] [address] May, [facility] [address] [place] [id number] [place] [address] May, [facility] [address] [place] [id number] [place] [address] May, [facility] [address] [place] [id number] [place] [address] May, Hypertension I10 ; Diabetes E11.9 and Depression F32.9 [facility] [address] [place] [id number] [place] [address] May, [facility] [address] [place] [id number] [place] [address] Apr, Left knee pain M25.562 ; Type 2 diabetes mellitus with complication E11.8 and Encounter for immunization Z23 [facility] [address] [place] [id number] [place] [address] Apr, [facility] [address] [place] [place] [id number] [place] [address] Apr, [facility] [address] [place] [place] [id number] [place] [address] Mar, [facility] [address] [place] [id number] [place] [address] Mar, Silvestre stanley 727.51 [facility] [address] [place] [place] [id number] [place] [address] Mar, [facility] [address] [place] [id number] [place] [address] Mar, [facility] [address] [place] [id number] [place] [address] Mar, [facility] [address] [place] [id number] [place] [address] Feb, [facility] [address] [place] [id number] [place] [address] Feb, [facility] [address] [place] [id number] [place] [address] Feb, Hypertension 401.9 and Diabetes 250.00 [facility] [address] [place] [address] Jan, [facility] [address] [place] [id number] [place] [address] [place] [address] Jan, Diabetes 250.00 [facility] [address], [place] [address] 14 Jan, 2015 [facility] [id number] [address] Jan, [facility] [address] [place] [address] Dec, Diabetes 250.00 and Forgetfulness 780.99 [facility] [address] [place] [id number] [place] [address] Dec, [facility] [address] [place] [place] [id number] [place] [address] Dec, Diabetes mellitus 250.00 [facility] [address] [address] Dec, [facility] [address] [place] [address] Dec, [facility] [address], [place] [address] Dec, [facility] [address] [place] [address] Dec, Diabetes 250.00 and Dysthymia 300.4 [facility] [address], [place] [address] Dec, [facility] [address] [address] Dec, Grief 309.0 and Diabetes mellitus 250.00 [facility] [address], [place] [address] Oct, [facility] [address], [place] [address] Oct, [facility] [address], [place] [address] Jul, [facility] [place] [facility] [address] [id number] [place] [address] Jul, [facility] [place] [facility] [address] [id number] [place] [address] Jul, [facility] [place] [facility] [address] [id number] [place] [address] Jul, [facility] [place] [facility] [address] [id number] [place] [address] Jul, [facility] [place] [facility] [address] [id number] [place] [address] May, [facility] [place] [facility] [address] [id number] [place] [address] May, [facility] [place] [facility] [address] [id number] [place] [address] Apr, [facility] [place] [facility] [address] [id number] [place] [address] Apr, [facility] [place] [facility] [address] [id number] [place] [address] Mar, [facility] [place] [facility] [address] [id number] [place] [address] Mar, [facility] [place] [facility] [address] [id number] [place] [address] Feb, [facility] [place] [facility] [address] [id number] [place] [address] Feb, [facility] [place] [facility] [address] [id number] [place] [address] Feb, [facility] [place] [facility] [address] [id number] [place] [address] Feb, [facility] [place] [facility] [address] [id number] [place] [address] Feb, [facility] [place] [facility] [address] [id number] [place] [address] Feb, [facility] [place] [facility] [address] [id number] [place] [address] November, [facility] [place] [facility] [address] [id number] [place] [address] November, [facility] [place] [facility] [address] [id number] [place] [address] Sep, [facility] [place] [facility] [address] [id number] [place] [address] Sep, [facility] [place] [facility] [address] [id number] [place] [address] Sep, [facility] [place] [facility] [address] [id number] [place] [address] Sep, [facility] [place] [facility] [address] [id number] [place] [address] Sep, [facility] [place] [facility] [address] [id number] [place] [address] Sep, [facility] [place] [facility] [address] [id number] [place] [address] Sep, [facility] [place] [facility] [address] [id number] [place] [address] Sep, [facility] [place] [facility] [address] [id number] [place] [address] Aug, [facility] [place] [facility] [address] [id number] [place] [address] Aug, [facility] [place] [facility] [address] [id number] [place] [address] Jul, [facility] [place] [facility] [address] [id number] [place] [address] Jul, [facility] [place] [facility] [address] [id number] [place] [address] Jul, [facility] [place] [facility] [address] [id number] [place] [address] Jul, [facility] [place] [facility] [address] [id number] [place] [address] Jun, [facility] [place] [facility] [address] [id number] [place] [address] Jun, [facility] [place] [facility] [address] [id number] [place] [address] May, [facility] [place] [facility] [address] [id number] [place] [address] May, [facility] [place] [facility] [address] [id number] [place] [address] May, [facility] [place] [facility] [address] [id number] [place] [address] May, [facility] [place] [facility] [address] [id number] [place] [address] May, [facility] [place] [facility] [address] [id number] [place] [address] May, [facility] [place] [facility] [address] [id number] [place] [address] Apr, [facility] [place] [facility] [address] [id number] [place] [address] Apr, [facility] [place] [facility] [address] [id number] [address] 16 Apr, 2013 [facility] [place] [facility] [address] [id number] [place] [address] Apr, [facility] [place] [facility] [address] [id number] [place] [address] Mar, [facility] [place] [facility] [address] [id number] [place] [address] 27 Mar, 2013 [facility] [place] [facility] [address] [id number] [place] [address] Jan, [facility] [address] [id number] [place] [address] Jan, [facility] [place] [facility] [address] [id number] [place] [address] Jan, [facility] [address] [id number] [place] [address] November, [facility] [place] [facility] [address] [id number] [place] [address] November, [facility] [address] [id number] [place] [address] November, [facility] [place] [facility] [address] [id number] [place] [address] November, [facility] [address] [id number] [place] [address] Aug, [facility] [place] [facility] [address] [id number] [place] [address] Jul, [facility] [address] [id number] [place] [address] Jul, [facility] [place] [facility] [address] [id number] [place] [address] Jul, [facility] [address] [id number] [place] [address] Jun, [facility] [place] [facility] [address] [id number] [place] [address] Jun, [facility] [place] [facility] [address] [id number] [place] [address] May, [facility] [place] [facility] [address] [id number] [place] [address] May, [facility] [place] [facility] [address] [id number] [place] [address] Apr, [facility] [place] [facility] [address] [id number] [place] [address] Apr, [facility] [place] [facility] [address] [id number] [place] [address] Apr, [facility] [place] [facility] [address] [id number] [place] [address] Apr, [facility] [place] [facility] [address] [id number] [place] [address] Apr, [facility] [place] [facility] [address] [id number] [place] [address] Apr, [facility] [place] [facility] [address] [id number] [place] [address] Apr, [facility] [place] [facility] [address] [id number] [place] [address] Apr, [facility] [place] [facility] [address] [id number] [place] [address] Apr, [facility] [place] [facility] [address] [id number] [place] [address] Mar, [facility] [place] [facility] [address] [id number] [place] [address] Feb, [facility] [place] [facility] [address] [id number] [place] [address] November, [facility] [place] [facility] [address] [id number] [place] [address] November, [facility] [place] [facility] [address] [id number] [place] [address] November, [facility] [place] [facility] [address] [id number] [place] [address] November, [facility] [place] [facility] [address] [id number] [place] [address] Jun, [facility] [place] [facility] [address] [id number] [place] [address] Jun, [facility] [address] [id number] [address] May, [facility] [id number] [place] [address] May, [facility] [address] [id number], [place] [address] Apr, [facility] [id number], [place] [address] Apr, [facility] [id number], [place] [address] May, [facility] [id number] [place] [address] Apr, [facility] [id number], [place] [address] Apr, [facility] [id number], [place] [address] Apr, [facility] [address] [id number], [place] [address] Apr, IMMUNIZATIONS No Known Immunizations SOCIAL HISTORY Never Assessed REASON FOR VISIT Medication refill request PLAN OF CARE VITAL SIGNS MEDICATIONS Unknown [...] History Post Stroke pt [facility] to [facility]15 Hospitalization History Hypotension, Wander ateral leg weakness--[facility] 01/15/16 Hospitalization History hypertension/chest pain 03/2017
--- OUTSIDE RECORDS SUMMARY | 2023-03-21 11:26 | XMS REPORT ---
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 20057551 Problem Left-sided muscle weakness M62.81 Active 998276174 Problem 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 Active 81846517 1 Problem Type 2 diabetes mellitus with diabetic neuropathy, 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 Active 78776943 Problem SNHL (sensory-neural hearing loss), 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 Active 291097302 Problem Bilateral hearing loss, unspecified hearing loss type H91.93 Active 32528823 Problem Hypertension I10 Active 99788419 Problem Panic attack F41.0 Active 852520570 Problem History of cerebrovascular accident with hemiparesis or hemiplegia Z86.73 Active 303865088 Problem Hypothyroidism (acquired) E03.9 Active 735072616 Problem Dementia with behavioral disturbance, unspecified dementia type F03.91 Active 1672853298728 Problem Other chronic pain G89.29 Active 80806 001 Problem 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 Active 653024211943 Problem Anxiety F41.9 Active 82791818 Problem Vascular dementia without behavioral disturbance F01.50 Active 337962291 ALLERGIES No Information ENCOUNTERS Encounter Location Date Diagnosis [facility] [address] [facility] [id number] [place] [address] Oct, Medicare annual wellness visit, initial Z00.00 [...] seizures R56.1 and Encounter for immunization Z23 [place] [address] [address] Sep, [place] [address] [place] [id number] Jul, [place] [address] [address] Jul, [place] [address] [address] Jun, Anxiety F41.9 and 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 [place] [address] [address] Jun, Bronchitis J40 and Bilateral hearing loss, unspecified hearing loss type H91.93 [place] [address] [address] Jun, [place] [address] [address] Apr, [place] [address] [address] Apr, Encounter for immunization Z23 and Left breast mass N63.20 [place] [address] [address] Apr, [place] [address] [address] Mar, CVA (cerebral vascular accident) I63.9 ; Hypertension I10 ; 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 ; Type 2 diabetes mellitus with diabetic neuropathy, 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 and Left breast mass N63 [facility] [id number] [place] [address] Mar, Mild episode of recurrent major depressive disorder F33.0 and Anxiety F41.9 [facility] [id number] [place] [address] Mar, Breast mass, left N63 [facility] [address] [place] [id number] [place] [address] Mar, Breast mass, left N63 [facility] [address] [place] [id number] [place] [address] Feb, [facility] [address] [place] [id number] [place] [address] Feb, [facility] [address] [place] [id number] [place] [address] Feb, [facility] [address] [place] [id number] [place] [address] Feb, [facility] [address] [place] [id number] [place] [address] Feb, Onychomycosis B35.1 and Type 2 diabetes mellitus with complication E11.8 [facility] [address] [place] [address] Jan, Mild episode of recurrent major depressive disorder F33.0 and Anxiety F41.9 [facility] [id number] [place] [address] Jan, [facility] [address] [place] [address] Dec, Onychomycosis due to dermatophyte B35.1 ; 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 ; Type 2 diabetes mellitus with diabetic neuropathy, 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 ; Falls frequently R29.6 ; Neuropathy G62.9 ; Dementia with behavioral disturbance, unspecified dementia type F03.91 ; Hypothyroidism (acquired) E03.9 and Left hand pain M79.642 [place] [id number] [place] [address] Dec, [facility] [address] [place] [id number] [place] [address] Dec, Hypothyroidism (acquired) E03.9 [place] [address] [place] [id number] [place] [address] Dec, 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 [place] [address] [place] [id number] [place] [address] November, Hypothyroidism (acquired) E03.9 [place] [address] [place] [id number] [place] [address] Oct, [place] [address] [place] [id number] [place] [address] Oct, 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 [place] [address] [place] [id number] [place] [address] Oct, [place] [address] [place] [id number] [place] [address] Oct, Dysuria R30.0 ; 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 ; Bilateral hearing loss, unspecified hearing loss type H91.93 and 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 [place] [address] [place] [id number] [place] [address] Sep, [facility] [address] [place] [id number] [place] [address] Sep, Open wound of right great toe, initial encounter S91.101A [place] [address] [address] Sep, Breast mass, left N63 ; Non-insulin dependent type 2 diabetes mellitus E11.9 and Vascular dementia without behavioral disturbance F01.50 [place] [address] [place] [id number] [place] [address] Sep, [place] [address] [place] [id number] [place] [address] Jul, [place] [address] [address] Jul, Diabetes E11.9 ; Diaper dermatitis L22 ; Candidiasis of skin and nail B37.2 ; Neuropathy G62.9 ; Status post stroke Z86.73 ; Unsteadiness on feet R26.81 and 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 [place] [address] [place] [id number] [place] [address] May, [place] [address] [address] May, [place] [address] [address] May, [place] [address] [address] May, Dementia with behavioral disturbance, unspecified dementia type F03.91 [place] [address] [place] [id number] [place] [address] May, Dementia with behavioral disturbance, unspecified dementia type F03.91 ; Encounter for immunization Z23 and Diabetes E11.9 [place] [address] [place] [id number] [place] [address] May, [place] [address] [address] May, Neuropathy G62.9 [place] [address] [place] [id number] [place] [address] May, [place] [address] [address] Apr, Hypothyroidism (acquired) E03.9 [place] [address] [place] [id number] [place] [address] 18 Oct, 2016 CVA (cerebral vascular accident) I63.9 ; Left hand weakness M62.81 and Neuropathy G62.9 [place] [address] [place] [id number] [place] [address] Apr, Hypokalemia E87.6 [place] [address] [place] [id number] [place] [address] Apr, Hypokalemia E87.6 [place] [address] [address] Mar, Diabetes E11.9 ; Edema, unspecified type R60.9 ; Anxiety disorder, unspecified F41.9 ; Pain in left knee M25.562 ; Other chronic pain G89.29 and Status post stroke Z86.73 [place] [address] [place] [id number] [place] [address] 15 Mar, 2016 [place] [address] [address] Mar, [place] [address] [place] [id number] [place] [address] Mar, Neuropathy G62.9 [place] [address] [place] [id number] [place] [address] Feb, Anorexia R63.0 and Neuropathy G62.9 [place] [address] [place] [id number] [place] [address] Jan, Diabetes E11.9 ; Neuropathy G62.9 ; Panic attack F41.0 ; Pain in left knee M25.562 and Hypertension 401.9 [place] [address] [place] [id number] [place] [address] Jan, Weakness R53.1 ; Fatigue, unspecified type R53.83 ; Falling episodes R29.6 and Neuropathy G62.9 [place] [address] [place] [id number] [place] [address] Jan, Pain in left knee M25.562 [place] [address] [place] [id number] [place] [address] Jan, [facility] [address] [place] [id number] [place] [address] Jan, [facility] [address] [place] [id number] [place] [address] Jan, [facility] [address] [place] [id number] [place] [address] Dec, Diabetes E11.9 ; Neuropathy G62.9 and Dementia F03.90 [facility] [address] [place] [id number] [place] [address] Dec, [facility] [address] [place] [id number] [place] [address] Dec, Neuropathy G62.9 ; Diabetes E11.9 ; Anxiety F41.9 and Constipation, unspecified constipation type K59.00 [facility] [address] [place] [id number] [place] [address] Dec, [facility] [address] [place] [id number] [place] [address] Dec, Anxiety F41.9 [facility] [address] [place] [id number] [place] [address] November, [facility] [address] [place] [id number] [place] [address] November, Pain in left knee M25.562 ; Other chronic pain G89.29 ; Diabetes E11.9 and Left eye pain H57.12 [facility] [address] [place] [id number] [place] [address] November, [facility] [address] [place] [id number] [place] [address] November, Hearing loss, unspecified laterality H91.90 [facility] [address] [place] [id number] [place] [address] November, [facility] [address] [address] November, [facility] [address] [place] [id number] [place] [address] November, Pain in right knee M25.561 [facility] [address] [place] [address] November, [facility] [address] [place] [id number] [place] [address] Oct, [facility] [address] [place] [address] Oct, [facility] [address] [place] [id number] [place] [address] Oct, Edema of left lower extremity R60.0 ; Diabetes E11.9 ; 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 I63.39 and Anxiety disorder, unspecified F41.9 [facility] [address] [place] [id number] [place] [address] Oct, Panic attack F41.0 [facility] [address] [place] [id number] [place] [address] Oct, [facility] [address] [place] [address] Oct, CVA (cerebral vascular accident) I63.9 [facility] [address] [place] [address] Oct, [facility] [address] [place] [address] Oct, Diabetes E11.9 ; Hypertension I10 and Dementia F03.90 [facility] [address] [address] Sep, [facility] [address] [place] [address] Sep, [facility] [address] [place] [id number] [place] [address] Sep, Diabetes E11.9 ; 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 ; Onychomycosis B35.1 and Fatigue R53.83 [facility] [address] [place] [id number] [place] [address] Aug, [facility] [address] [place] [id number] [place] [address] Aug, [facility] [address] [place] [id number] [place] [address] Jul, [facility] [address] [place] [id number] [place] [address] Jul, [facility] [address] [place] [id number] [place] [address] Jun, 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 [facility] [address] [place] [id number] [place] [address] Jun, Anxiety disorder, unspecified F41.9 and Major depressive disorder, single episode, moderate F32.1 [facility] [address] [place] [id number] [place] [address] Jun, [facility] [address] [place] [id number] [place] [address] Jun, [facility] [address] [place] [id number] [place] [address] May, Left knee pain M25.562 [facility] [address] [place] [id number] [place] [address] May, [facility] [address] [place] [id number] [place] [address] May, [facility] [address] [place] [id number] [place] [address] May, [facility] [address] [place] [id number] [place] [address] May, Hypertension I10 ; Diabetes E11.9 and Depression F32.9 [facility] [address] [place] [id number] [place] [address] May, [facility] [address] [place] [id number] [place] [address] Apr, Left knee pain M25.562 ; Type 2 diabetes mellitus with complication E11.8 and Encounter for immunization Z23 [facility] [address] [place] [id number] [place] [address] Apr, [facility] [address] [place] [id number] [place] [address] Apr, [facility] [address] [place] [id number] [place] [address] Mar, [facility] [address] [place] [id number] [place] [address] Mar, Silvestre stanley 727.51 [facility] [address] [place] [id number] [place] [address] Mar, [facility] [address] [place] [id number] [place] [address] Mar, [facility] [address] [place] [id number] [place] [address] Mar, [facility] [address] [place] [id number] [place] [address] Feb, [facility] [address] [place] [id number] [place] [address] Feb, [facility] [address] [place] [id number] [place] [address] Feb, Hypertension 401.9 and Diabetes 250.00 [facility] [address] [place] [address] Jan, [facility] [address] [place] [id number] [place] [address] [place] [address] Jan, Diabetes 250.00 [facility] [address] [address] 14 Jan, 2015 [facility] [address] [place] [id number] [address] Jan, [facility] [address] [place] [address] Dec, Diabetes 250.00 and Forgetfulness 780.99 [facility] [address] [place] [id number] [place] [address] Dec, [facility] [address] [place] [id number] [place] [address] Dec, Diabetes mellitus 250.00 [facility] [address] [place] [id number] [address] Dec, [facility] [address] [place] [address] Dec, [facility] [address], [place] [address] Dec, [facility] [address] [place] [address] Dec, Diabetes 250.00 and Dysthymia 300.4 [facility] [address], [place] [address] Dec, [facility] [address], [place] [address] Dec, Grief 309.0 and Diabetes mellitus 250.00 [facility] [address], [place] [address] Oct, [facility] [address] [address] Oct, [facility] [address] [place] [address] Jul, [facility] [place] [facility] [address] [id number] [place] [address] Jul, [facility] [place] [facility] [address] [id number] [place] [address] Jul, [facility] [place] [facility] [address] [id number] [place] [address] Jul, [facility] [place] [facility] [address] [id number] [place] [address] Jul, [facility] [place] [facility] [address] [id number] [place] [address] May, [facility] [place] [facility] [address] [id number] [place] [address] May, [facility] [place] [facility] [address] [id number] [place] [address] Apr, [facility] [place] [facility] [address] [id number] [place] [address] Apr, [facility] [place] [facility] [address] [id number] [place] [address] Mar, [facility] [place] [facility] [address] [id number] [place] [address] Mar, [facility] [place] [facility] [address] [id number] [place] [address] Feb, [facility] [place] [facility] [address] [id number] [place] [address] Feb, [facility] [place] [facility] [address] [id number] [place] [address] Feb, [facility] [place] [facility] [address] [id number] [place] [address] Feb, [facility] [place] [facility] [address] [id number] [place] [address] Feb, [facility] [place] [facility] [address] [id number] [place] [address] Feb, [facility] [place] [facility] [address] [id number] [place] [address] November, [facility] [place] [facility] [address] [id number] [place] [address] November, [facility] [place] [facility] [address] [id number] [place] [address] Sep, [facility] [place] [facility] [address] [id number] [place] [address] Sep, [facility] [place] [facility] [address] [id number] [place] [address] Sep, [facility] [place] [facility] [address] [id number] [place] [address] Sep, [facility] [place] [facility] [address] [id number] [place] [address] Sep, [facility] [place] [facility] [address] [id number] [place] [address] Sep, [facility] [place] [facility] [address] [id number] [place] [address] Sep, [facility] [place] [facility] [address] [id number] [place] [address] Sep, [facility] [place] [facility] [address] [id number] [place] [address] Aug, [facility] [place] [facility] [address] [id number] [place] [address] Aug, [facility] [place] [facility] [address] [id number] [place] [address] Jul, [facility] [place] [facility] [address] [id number] [place] [address] Jul, [facility] [place] [facility] [address] [id number] [place] [address] Jul, [facility] [place] [facility] [address] [id number] [place] [address] Jul, [facility] [place] [facility] [address] [id number] [place] [address] Jun, [facility] [place] [facility] [address] [id number] [place] [address] Jun, [facility] [place] [facility] [address] [id number] [place] [address] May, [facility] [place] [facility] [address] [id number] [place] [address] May, [facility] [place] [facility] [address] [id number] [place] [address] May, [facility] [place] [facility] [address] [id number] [place] [address] May, [facility] [place] [facility] [address] [id number] [place] [address] May, [facility] [place] [facility] [address] [id number] [place] [address] May, [facility] [place] [facility] [address] [id number] [place] [address] Apr, [facility] [place] [facility] [address] [id number] [place] [address] Apr, [facility] [place] [facility] [address] [id number], [place] [address] 16 Apr, 2013 [facility] [place] [facility] [address] [id number] [place] [address] Apr, [facility] [place] [facility] [address] [id number] [place] [address] Mar, [facility] [place] [facility] [address] [id number] [place] [address] 27 Mar, 2013 [facility] [place] [facility] [address] [id number] [place] [address] Jan, [facility] [address] [id number] [place] [address] Jan, [facility] [place] [facility] [address] [id number] [place] [address] Jan, [facility] [address] [id number] [place] [address] November, [facility] [place] [facility] [address] [id number] [place] [address] November, [facility] [address] [id number] [place] [address] November, [facility] [place] [facility] [address] [id number] [place] [address] November, [facility] [address] [id number] [place] [address] Aug, [facility] [place] [facility] [address] [id number] [place] [address] Jul, [facility] [address] [id number] [place] [address] Jul, [facility] [place] [facility] [address] [id number] [place] [address] Jul, [facility] [address] [id number] [place] [address] Jun, [facility] [place] [facility] [address] [id number] [place] [address] Jun, [facility] [place] [facility] [address] [id number] [place] [address] May, [facility] [place] [facility] [address] [id number] [place] [address] May, [facility] [place] [facility] [address] [id number] [place] [address] Apr, [facility] [place] [facility] [address] [id number] [place] [address] Apr, [facility] [place] [facility] [address] [id number] [place] [address] Apr, [facility] [place] [facility] [address] [id number] [place] [address] Apr, [facility] [place] [facility] [address] [id number] [place] [address] Apr, [facility] [place] [facility] [address] [id number] [place] [address] Apr, [facility] [place] [facility] [address] [id number] [place] [address] Apr, [facility] [place] [facility] [address] [id number] [place] [address] Apr, [facility] [place] [facility] [address] [id number] [place] [address] Apr, [facility] [place] [facility] [address] [id number] [place] [address] Mar, [facility] [place] [facility] [address] [id number] [place] [address] Feb, [facility] [place] [facility] [address] [id number] [place] [address] November, [facility] [place] [facility] [address] [id number] [place] [address] November, [facility] [place] [facility] [address] [id number] [place] [address] November, [facility] [place] [facility] [address] [id number] [place] [address] November, [facility] [place] [facility] [address] [id number] [place] [address] Jun, [facility] [place] [facility] [address] [id number] [place] [address] Jun, [facility] [address] [id number] [address] May, [facility] [address] [facility] [id number], [place] [address] May, [facility] [address] [facility] [id number], [place] [address] Apr, [facility] [address] [facility] [id number], [place] [address] Apr, [facility] [address] [facility] [id number], [place] [address] May, [facility] [id number] [address] Apr, [facility] [id number], [place] [address] Apr, [facility] [id number], [place] [address] Apr, [facility] [id number], [place] [address] Apr, IMMUNIZATIONS No Known Immunizations SOCIAL HISTORY [...] History Post Stroke pt went to [facility] and then [facility] 10/15/15 Hospitalization History Hypotension, Wander ateral leg weakness--Via [facility] 01/15/16 Hospitalization History hypertension/chest pain 03/2017
--- OUTSIDE RECORDS SUMMARY | 2023-03-21 11:26 | XMS REPORT ---
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 83404241 Problem Bilateral hearing loss, unspecified hearing loss type H91.93 Active 01035090 Problem 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 Active 88095088 1 Problem Left-sided muscle weakness M62.81 Active 312189793 Problem SNHL (sensory-neural hearing loss), 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 Active 390722493 Problem Panic attack F41.0 Active 388609932 Problem Other chronic pain G89.29 Active 97355 001 Problem History of cerebrovascular accident with hemiparesis or hemiplegia Z86.73 Active 003418744 Problem Hypertension I10 Active 58869549 Problem Dementia with behavioral disturbance, unspecified dementia type F03.91 Active 1279345601186 Problem 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 Active 441486452369 Problem Anxiety F41.9 Active 78195940 Problem Vascular dementia without behavioral disturbance F01.50 Active 810054141 Problem Hypothyroidism (acquired) E03.9 Active 404848245 Problem 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 Active 86986898 ALLERGIES No Information ENCOUNTERS Encounter Location Date Diagnosis [facility] [id number] [address] November, Chronic cough R05 and Cardiomegaly I51.7 [facility] [address] [address] Oct, Medicare annual wellness visit, initial Z00.00 [...] seizures R56.1 and Encounter for immunization Z23 [place] [address] [address] Sep, [place] [address] [address] Jul, [place] [address] [address] Jul, [place] [address] [address] Jun, Anxiety F41.9 and 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 [place] [address] [address] Jun, Bronchitis J40 and Bilateral hearing loss, unspecified hearing loss type H91.93 [place] [address] [address] Jun, [place] [address] [address] Apr, [place] [address] [address] Apr, Encounter for immunization Z23 and Left breast mass N63.20 [place] [address] [address] 16 Apr, 2017 [place] [address] [address] Mar, CVA (cerebral vascular accident) I63.9 ; Hypertension I10 ; 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 ; Type 2 diabetes mellitus with diabetic neuropathy, 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 and Left breast mass N63 [facility] [id number] [place] [address] Mar, Mild episode of recurrent major depressive disorder F33.0 and Anxiety F41.9 [facility] [id number] [place] [address] Mar, Breast mass, left N63 [facility] [id number] [place] [address] Mar, Breast mass, left N63 [facility] [id number] [place] [address] Feb, [facility] [id number] [place] [address] Feb, [facility] [id number] [place] [address] Feb, [facility] [id number] [place] [address] Feb, [facility] [id number] [place] [address] Feb, Onychomycosis B35.1 and Type 2 diabetes mellitus with complication E11.8 [facility] [id number] [place] [address] Jan, Mild episode of recurrent major depressive disorder F33.0 and Anxiety F41.9 [facility] [id number] [place] [address] Jan, [facility] [id number] [place] [address] Dec, Onychomycosis due to dermatophyte B35.1 ; 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 ; Type 2 diabetes mellitus with diabetic neuropathy, 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 ; Falls frequently R29.6 ; Neuropathy G62.9 ; Dementia with behavioral disturbance, unspecified dementia type F03.91 ; Hypothyroidism (acquired) E03.9 and Left hand pain M79.642 [facility] [id number] [place] [address] Dec, [facility] [address] [address] Dec, Hypothyroidism (acquired) E03.9 [facility] [address] [address] Dec, 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 [place] [address] [address] November, Hypothyroidism (acquired) E03.9 [facility] [address] [address] Oct, [facility] [address] [address] Oct, 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 [place] [id number] [place] [address] Oct, [facility] [id number] [place] [address] Oct, Dysuria R30.0 ; 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 ; Bilateral hearing loss, unspecified hearing loss type H91.93 and 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 [facility] [id number] [place] [address] Sep, [facility] [id number] [place] [address] Sep, Open wound of right great toe, initial encounter S91.101A [place] [address] [address] Sep, Breast mass, left N63 ; Non-insulin dependent type 2 diabetes mellitus E11.9 and Vascular dementia without behavioral disturbance F01.50 [place] [id number] [place] [address] Sep, [place] [id number] [place] [address] Jul, [place] [address] [address] Jul, Diabetes E11.9 ; Diaper dermatitis L22 ; Candidiasis of skin and nail B37.2 ; Neuropathy G62.9 ; Status post stroke Z86.73 ; Unsteadiness on feet R26.81 and 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 [place] [id number] [place] [address] May, [place] [address] [address] May, [place] [id number] [place] [address] May, [place] [address] [address] May, Dementia with behavioral disturbance, unspecified dementia type F03.91 [place] [id number] [place] [address] May, Dementia with behavioral disturbance, unspecified dementia type F03.91 ; Encounter for immunization Z23 and Diabetes E11.9 [place] [id number] [place] [address] May, [place] [address] [address] May, Neuropathy G62.9 [place] [id number] [place] [address] May, [place] [id number] [place] [address] Apr, Hypothyroidism (acquired) E03.9 [place] [id number] [place] [address] Apr, CVA (cerebral vascular accident) I63.9 ; Left hand weakness M62.81 and Neuropathy G62.9 [place] [address] [address] Apr, Hypokalemia E87.6 [place] [address] [address] Apr, Hypokalemia E87.6 [place] [address] [address] Mar, Diabetes E11.9 ; Edema, unspecified type R60.9 ; Anxiety disorder, unspecified F41.9 ; Pain in left knee M25.562 ; Other chronic pain G89.29 and Status post stroke Z86.73 [place] [id number] [place] [address] Mar, [place] [address] [address] Mar, [place] [id number] [place] [address] Mar, Neuropathy G62.9 [place] [id number] [place] [address] Feb, Anorexia R63.0 and Neuropathy G62.9 [place] [id number] [place] [address] Jan, Diabetes E11.9 ; Neuropathy G62.9 ; Panic attack F41.0 ; Pain in left knee M25.562 and Hypertension 401.9 [place] [id number] [place] [address] Jan, Weakness R53.1 ; Fatigue, unspecified type R53.83 ; Falling episodes R29.6 and Neuropathy G62.9 [facility] [id number] [place] [address] Jan, Pain in left knee M25.562 [facility] [id number] [place] [address] Jan, [facility] [id number] [place] [address] Jan, [facility] [id number] [place] [address] Jan, [facility] [address] [address] Dec, Diabetes E11.9 ; Neuropathy G62.9 and Dementia F03.90 [facility] [address] [address] Dec, [facility] [address] [address] Dec, Neuropathy G62.9 ; Diabetes E11.9 ; Anxiety F41.9 and Constipation, unspecified constipation type K59.00 [facility] [id number] [place] [address] Dec, [facility] [id number] [place] [address] Dec, Anxiety F41.9 [facility] [id number] [place] [address] November, [facility] [id number] [place] [address] November, Pain in left knee M25.562 ; Other chronic pain G89.29 ; Diabetes E11.9 and Left eye pain H57.12 [facility] [id number] [place] [address] November, [facility] [address] [address] November, Hearing loss, unspecified laterality H91.90 [facility] [id number] [place] [address] November, [facility] [id number] [place] [address] November, [facility] [id number] [place] [address] November, Pain in right knee M25.561 [facility] [id number] [place] [address] November, [facility] [id number] [place] [address] Oct, [facility] [id number] [place] [address] Oct, [facility] [id number] [place] [address] Oct, Edema of left lower extremity R60.0 ; Diabetes E11.9 ; 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 I63.39 and Anxiety disorder, unspecified F41.9 [facility] [address] [address] Oct, Panic attack F41.0 [facility] [id number] [place] [address] Oct, [facility] [id number] [place] [address] Oct, CVA (cerebral vascular accident) I63.9 [facility] [id number] [place] [address] Oct, [facility] [id number] [place] [address] Oct, Diabetes E11.9 ; Hypertension I10 and Dementia F03.90 [facility] [id number] [address] 30 Sep, 2015 [facility] [id number] [place] [address] Sep, [facility] [id number] [place] [address] Sep, Diabetes E11.9 ; 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 ; Onychomycosis B35.1 and Fatigue R53.83 [facility] [id number] [place] [address] Aug, [facility] [id number] [place] [address] Aug, [facility] [id number] [place] [address] Jul, [place] [id number] [place] [address] Jul, [facility] [id number] [place] [address] Jun, 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 [facility] [id number] [place] [address] Jun, Anxiety disorder, unspecified F41.9 and Major depressive disorder, single episode, moderate F32.1 [facility] [id number] [place] [address] Jun, [facility] [id number] [place] [address] Jun, [facility] [id number] [place] [address] 24 May, 2015 Left knee pain M25.562 [facility] [id number] [place] [address] 16 May, 2015 [facility] [id number] [place] [address] May, [facility] [id number] [place] [address] May, [facility] [address] [address] May, Hypertension I10 ; Diabetes E11.9 and Depression F32.9 [facility] [address] [address] May, [facility] [address] [address] Apr, Left knee pain M25.562 ; Type 2 diabetes mellitus with complication E11.8 and Encounter for immunization Z23 [facility] [address] [address] Apr, [facility] [address] [address] Apr, [facility] [address] [address] Mar, [facility] [address] [address] Mar, Silvestre stanley 727.51 [facility] [id number] [place] [address] Mar, [facility] [id number] [place] [address] Mar, [facility] [id number] [place] [address] Mar, [facility] [address] [address] Feb, [facility] [id number] [place] [address] Feb, [facility] [address] [address] Feb, Hypertension 401.9 and Diabetes 250.00 [facility] [address] [address] Jan, [facility] [id number] [place] [address] Jan, Diabetes 250.00 [facility] [address] [address] Jan, [facility] [id number] [place] [address] Jan, [facility] [id number] [place] [address] Dec, Diabetes 250.00 and Forgetfulness 780.99 [facility] [id number] [place] [address] Dec, [facility] [id number] [place] [address] Dec, Diabetes mellitus 250.00 [facility] [address] [address] Dec, [facility] [id number] [place] [address] Dec, [facility] [address] [address] Dec, [facility] [id number] [place] [address] Dec, Diabetes 250.00 and Dysthymia 300.4 [facility] [address] [address] Dec, [facility] [id number] [place] [address] Dec, Grief 309.0 and Diabetes mellitus 250.00 [facility] [address] [address] Oct, [facility] [place] [facility] [address] [id number] [place] [address] Oct, [facility] [place] [facility] [address] [id number] [place] [address] Jul, [facility] [place] [facility] [address] [id number] [place] [address] Jul, [facility] [place] [facility] [address] [id number] [place] [address] Jul, [facility] [place] [facility] [address] [id number] [place] [address] Jul, [facility] [place] [facility] [address] [id number] [place] [address] Jul, [facility] [place] [facility] [address] [id number] [place] [address] May, [facility] [place] [facility] [address] [id number] [place] [address] May, [facility] [place] [facility] [address] [id number] [place] [address] Apr, [facility] [place] [facility] [address] [id number] [place] [address] Apr, [facility] [place] [facility] [address] [id number] [place] [address] Mar, [facility] [place] [facility] [address] [id number] [place] [address] Mar, [facility] [place] [facility] [address] [id number] [place] [address] Feb, [facility] [place] [facility] [address] [id number] [place] [address] Feb, [facility] [place] [facility] [address] [id number] [place] [address] Feb, [facility] [place] [facility] [address] [id number] [place] [address] Feb, [facility] [place] [facility] [address] [id number] [place] [address] Feb, [facility] [place] [facility] [address] [id number] [place] [address] Feb, [facility] [place] [facility] [address] [id number] [place] [address] November, [facility] [place] [facility] [address] [id number] [place] [address] November, [facility] [place] [facility] [address] [id number] [place] [address] Sep, [facility] [place] [facility] [address] [id number] [place] [address] Sep, [facility] [place] [facility] [address] [id number] [place] [address] Sep, [facility] [place] [facility] [address] [id number] [place] [address] Sep, [facility] [place] [facility] [address] [id number] [place] [address] Sep, [facility] [place] [facility] [address] [id number] [place] [address] Sep, [facility] [place] [facility] [address] [id number] [place] [address] Sep, [facility] [place] [facility] [address] [id number] [place] [address] Sep, [facility] [place] [facility] [address] [id number] [place] [address] Aug, [facility] [place] [facility] [address] [id number] [place] [address] Aug, [facility] [place] [facility] [address] [id number] [place] [address] Jul, [facility] [place] [facility] [address] [id number] [place] [address] Jul, [facility] [address] [id number] [place] [address] Jul, [facility] [place] [facility] [address] [id number] [place] [address] Jul, [facility] [address] [id number] [place] [address] Jun, [facility] [place] [facility] [address] [id number] [place] [address] Jun, [facility] [address] [id number] [place] [address] May, [facility] [place] [facility] [address] [id number] [place] [address] May, [facility] [place] [facility] [address] [id number] [place] [address] May, [facility] [address] [id number] [place] [address] May, [facility] [place] [facility] [address] [id number] [place] [address] May, [facility] [address] [id number] [place] [address] May, [facility] [place] [facility] [address] [id number] [place] [address] Apr, [facility] [place] [facility] [address] [id number] [place] [address] Apr, [facility] [place] [facility] [address] [id number] [place] [address] Apr, [facility] [place] [facility] [address] [id number] [place] [address] Apr, [facility] [place] [facility] [address] [id number] [place] [address] Mar, [facility] [address] [id number] [place] [address] Mar, [facility] [address] [id number] [place] [address] Jan, [facility] [address] [id number] [place] [address] Jan, [facility] [address] [id number] [place] [address] Jan, [facility] [address] [id number] [place] [address] November, [facility] [address] [id number] [place] [address] November, [facility] [address] [id number] [place] [address] November, [facility] [address] [id number] [place] [address] November, [facility] [address] [id number] [place] [address] Aug, [facility] [address] [id number] [place] [address] Jul, [facility] [address] [id number] [place] [address] Jul, [facility] [place] [facility] [address] [id number] [place] [address] Jul, [facility] [place] [facility] [address] [id number] [place] [address] Jun, [facility] [place] [facility] [address] [id number] [place] [address] Jun, [facility] [place] [facility] [address] [id number] [place] [address] May, [facility] [place] [facility] [address] [id number] [place] [address] May, [facility] [place] [facility] [address] [id number] [place] [address] Apr, [facility] [place] [facility] [address] [id number] [place] [address] Apr, [facility] [place] [facility] [address] [id number] [place] [address] Apr, [facility] [place] [facility] [address] [id number] [place] [address] Apr, [facility] [place] [facility] [address] [id number] [place] [address] Apr, [facility] [place] [facility] [address] [id number] [place] [address] Apr, [facility] [place] [facility] [address] [id number] [place] [address] Apr, [facility] [place] [facility] [address] [id number] [place] [address] Apr, [facility] [place] [facility] [address] [id number] [place] [address] Apr, [facility] [place] [facility] [address] [id number] [place] [address] Mar, [facility] [place] [facility] [address] [id number] [place] [address] Feb, [facility] [place] [facility] [address] [id number] [place] [address] November, [facility] [place] [facility] [address] [id number] [place] [address] November, [facility] [place] [facility] [address] [id number] [place] [address] November, [facility] [place] [facility] [address] [id number] [place] [address] November, [facility] [id number] [address] Jun, [facility] [address] [id number] [address] Jun, [facility] [address] [address] May, [facility] [address] [address] May, [facility] [address] [address] Apr, [facility] [id number] [place] [id number] Apr, [facility] [id number] [address] May, [facility] [id number] [address] Apr, [facility] [id number] [address] Apr, [facility] [id number] [address] Apr, [facility] [id number] [address] Apr, IMMUNIZATIONS No Known Immunizations SOCIAL HISTORY Never Assessed REASON FOR VISIT Aggrenox PLAN OF CARE VITAL SIGNS MEDICATIONS Medication Instructions Dosage Frequency Start Date End Date Duration Status Aggrenox 25-200 MG Orally Twice a day 1 capsule 12h 90 days Active RESULTS No Results [...] [facility] and then [facility] 10/15/15 Hospitalization History Hypotension, Wander ateral leg weakness--Via [facility] 01/15/16 Hospitalization History hypertension/chest pain 03/2017
--- OUTSIDE RECORDS SUMMARY | 2023-03-21 11:26 | XMS REPORT ---
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 75371110 Problem Bilateral hearing loss, unspecified hearing loss type H91.93 Active 46781039 Problem 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 Active 29004966 1 Problem Left-sided muscle weakness M62.81 Active 901569768 Problem SNHL (sensory-neural hearing loss), 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 Active 687457377 Problem Panic attack F41.0 Active 663330868 Problem Other chronic pain G89.29 Active 04166 001 Problem History of cerebrovascular accident with hemiparesis or hemiplegia Z86.73 Active 006702159 Problem Hypertension I10 Active 88297239 Problem Dementia with behavioral disturbance, unspecified dementia type F03.91 Active 4733951569320 Problem 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 Active 953952489810 Problem Anxiety F41.9 Active 51155787 Problem Vascular dementia without behavioral disturbance F01.50 Active 874834376 Problem Hypothyroidism (acquired) E03.9 Active 955778600 Problem 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 Active 01156427 ALLERGIES No Information ENCOUNTERS Encounter Location Date Diagnosis [facility] [id number], [place] [address] November, Chronic cough R05 and Cardiomegaly I51.7 [facility] [address] [address] Oct, Medicare annual wellness visit, initial Z00.00 [...] seizures R56.1 and Encounter for immunization Z23 [place] [address] [address] Sep, [place] [address] [address] Jul, [place] [address] [address] Jul, [place] [address] [address] Jun, Anxiety F41.9 and 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 [place] [address] [address] Jun, Bronchitis J40 and Bilateral hearing loss, unspecified hearing loss type H91.93 [place] [address] [address] Jun, [place] [address] [address] Apr, [place] [address] [address] Apr, Encounter for immunization Z23 and Left breast mass N63.20 [place] [address] [address] 16 Apr, 2017 [place] [address] [address] Mar, CVA (cerebral vascular accident) I63.9 ; Hypertension I10 ; 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 ; Type 2 diabetes mellitus with diabetic neuropathy, 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 and Left breast mass N63 [facility] [id number] [place] [address] Mar, Mild episode of recurrent major depressive disorder F33.0 and Anxiety F41.9 [facility] [id number] [place] [address] Mar, Breast mass, left N63 [facility] [id number] [place] [address] Mar, Breast mass, left N63 [facility] [id number] [place] [address] Feb, [facility] [id number] [place] [address] Feb, [facility] [id number] [place] [address] Feb, [facility] [id number] [place] [address] Feb, [facility] [id number] [place] [address] Feb, Onychomycosis B35.1 and Type 2 diabetes mellitus with complication E11.8 [facility] [id number] [place] [address] Jan, Mild episode of recurrent major depressive disorder F33.0 and Anxiety F41.9 [facility] [id number] [place] [address] Jan, [facility] [id number] [place] [address] Dec, Onychomycosis due to dermatophyte B35.1 ; 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 ; Type 2 diabetes mellitus with diabetic neuropathy, 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 ; Falls frequently R29.6 ; Neuropathy G62.9 ; Dementia with behavioral disturbance, unspecified dementia type F03.91 ; Hypothyroidism (acquired) E03.9 and Left hand pain M79.642 [facility] [id number] [place] [address] Dec, [facility] [address] [address] Dec, Hypothyroidism (acquired) E03.9 [facility] [address] [address] Dec, 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 [place] [address] [address] November, Hypothyroidism (acquired) E03.9 [facility] [address] [address] Oct, [facility] [address] [address] Oct, 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 [place] [id number] [place] [address] Oct, [facility] [id number] [place] [address] Oct, Dysuria R30.0 ; 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 ; Bilateral hearing loss, unspecified hearing loss type H91.93 and 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 [facility] [id number] [place] [address] Sep, [facility] [id number] [place] [address] Sep, Open wound of right great toe, initial encounter S91.101A [place] [address] [address] Sep, Breast mass, left N63 ; Non-insulin dependent type 2 diabetes mellitus E11.9 and Vascular dementia without behavioral disturbance F01.50 [place] [id number] [place] [address] Sep, [place] [id number] [place] [address] Jul, [place] [address] [address] Jul, Diabetes E11.9 ; Diaper dermatitis L22 ; Candidiasis of skin and nail B37.2 ; Neuropathy G62.9 ; Status post stroke Z86.73 ; Unsteadiness on feet R26.81 and 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 [place] [id number] [place] [address] May, [place] [address] [address] May, [place] [id number] [place] [address] May, [place] [address] [address] May, Dementia with behavioral disturbance, unspecified dementia type F03.91 [place] [id number] [place] [address] May, Dementia with behavioral disturbance, unspecified dementia type F03.91 ; Encounter for immunization Z23 and Diabetes E11.9 [place] [id number] [place] [address] May, [place] [address] [address] May, Neuropathy G62.9 [place] [id number] [place] [address] May, [place] [id number] [place] [address] Apr, Hypothyroidism (acquired) E03.9 [place] [id number] [place] [address] Apr, CVA (cerebral vascular accident) I63.9 ; Left hand weakness M62.81 and Neuropathy G62.9 [place] [address] [address] Apr, Hypokalemia E87.6 [place] [address] [address] Apr, Hypokalemia E87.6 [place] [address] [address] Mar, Diabetes E11.9 ; Edema, unspecified type R60.9 ; Anxiety disorder, unspecified F41.9 ; Pain in left knee M25.562 ; Other chronic pain G89.29 and Status post stroke Z86.73 [place] [id number] [place] [address] Mar, [place] [address] [address] Mar, [place] [id number] [place] [address] Mar, Neuropathy G62.9 [place] [id number] [place] [address] Feb, Anorexia R63.0 and Neuropathy G62.9 [place] [id number] [place] [address] Jan, Diabetes E11.9 ; Neuropathy G62.9 ; Panic attack F41.0 ; Pain in left knee M25.562 and Hypertension 401.9 [place] [id number] [place] [address] Jan, Weakness R53.1 ; Fatigue, unspecified type R53.83 ; Falling episodes R29.6 and Neuropathy G62.9 [facility] [id number] [place] [address] Jan, Pain in left knee M25.562 [facility] [id number] [place] [address] Jan, [facility] [id number] [place] [address] Jan, [facility] [id number] [place] [address] Jan, [facility] [address] [address] Dec, Diabetes E11.9 ; Neuropathy G62.9 and Dementia F03.90 [facility] [address] [address] Dec, [facility] [address] [address] Dec, Neuropathy G62.9 ; Diabetes E11.9 ; Anxiety F41.9 and Constipation, unspecified constipation type K59.00 [facility] [id number] [place] [address] Dec, [facility] [id number] [place] [address] Dec, Anxiety F41.9 [facility] [id number] [place] [address] November, [facility] [id number] [place] [address] November, Pain in left knee M25.562 ; Other chronic pain G89.29 ; Diabetes E11.9 and Left eye pain H57.12 [facility] [id number] [place] [address] November, [facility] [address] [address] November, Hearing loss, unspecified laterality H91.90 [facility] [id number] [place] [address] November, [facility] [id number] [place] [address] November, [facility] [id number] [place] [address] November, Pain in right knee M25.561 [facility] [id number] [place] [address] November, [facility] [id number] [place] [address] Oct, [facility] [id number] [place] [address] Oct, [facility] [id number] [place] [address] Oct, Edema of left lower extremity R60.0 ; Diabetes E11.9 ; 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 I63.39 and Anxiety disorder, unspecified F41.9 [facility] [address], [place] [address] Oct, Panic attack F41.0 [facility] [id number] [place] [address] Oct, [facility] [id number] [place] [address] Oct, CVA (cerebral vascular accident) I63.9 [facility] [id number] [place] [address] Oct, [facility] [id number] [place] [address] Oct, Diabetes E11.9 ; Hypertension I10 and Dementia F03.90 [facility] [id number], [place] [address] 30 Sep, 2015 [facility] [id number] [place] [address] Sep, [facility] [id number] [place] [address] Sep, Diabetes E11.9 ; 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 ; Onychomycosis B35.1 and Fatigue R53.83 [facility] [id number] [place] [address] Aug, [facility] [id number] [place] [address] Aug, [facility] [id number] [place] [address] Jul, [place] [id number] [place] [address] Jul, [facility] [id number] [place] [address] Jun, 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 [facility] [id number] [place] [address] Jun, Anxiety disorder, unspecified F41.9 and Major depressive disorder, single episode, moderate F32.1 [facility] [id number] [place] [address] Jun, [facility] [id number] [place] [address] Jun, [facility] [id number] [place] [address] 24 May, 2015 Left knee pain M25.562 [facility] [id number] [place] [address] 16 May, 2015 [facility] [id number] [place] [address] May, [facility] [id number] [place] [address] May, [facility] [address] [address] May, Hypertension I10 ; Diabetes E11.9 and Depression F32.9 [facility] [address] [address] May, [facility] [address] [address] Apr, Left knee pain M25.562 ; Type 2 diabetes mellitus with complication E11.8 and Encounter for immunization Z23 [facility] [address] [address] Apr, [facility] [address] [address] Apr, [facility] [address] [address] Mar, [facility] [address] [address] Mar, Silvestre stanley 727.51 [facility] [id number] [place] [address] Mar, [facility] [id number] [place] [address] Mar, [facility] [id number] [place] [address] Mar, [facility] [address] [address] Feb, [facility] [id number] [place] [address] Feb, [facility] [address] [address] Feb, Hypertension 401.9 and Diabetes 250.00 [facility] [address], [place] [address] Jan, [facility] [id number] [place] [address] Jan, Diabetes 250.00 [facility] [address], [place] [address] Jan, [facility] [id number] [place] [address] Jan, [facility] [id number] [place] [address] Dec, Diabetes 250.00 and Forgetfulness 780.99 [facility] [id number] [place] [address] Dec, [facility] [id number] [place] [address] Dec, Diabetes mellitus 250.00 [facility] [address], [place] [address] Dec, [facility] [id number] [place] [address] Dec, [facility] [address], [place] [address] Dec, [facility] [id number] [place] [address] Dec, Diabetes 250.00 and Dysthymia 300.4 [facility] [address], [place] [address] Dec, [facility] [id number] [place] [address] Dec, Grief 309.0 and Diabetes mellitus 250.00 [facility] [address], [place] [address] Oct, [facility] [place] [facility] [address] [id number] [place] [address] Oct, [facility] [place] [facility] [address] [id number] [place] [address] Jul, [facility] [place] [facility] [address] [id number] [place] [address] Jul, [facility] [place] [facility] [address] [id number] [place] [address] Jul, [facility] [place] [facility] [address] [id number] [place] [address] Jul, [facility] [place] [facility] [address] [id number] [place] [address] Jul, [facility] [place] [facility] [address] [id number] [place] [address] May, [facility] [place] [facility] [address] [id number] [place] [address] May, [facility] [place] [facility] [address] [id number] [place] [address] Apr, [facility] [place] [facility] [address] [id number] [place] [address] Apr, [facility] [place] [facility] [address] [id number] [place] [address] Mar, [facility] [place] [facility] [address] [id number] [place] [address] Mar, [facility] [place] [facility] [address] [id number] [place] [address] Feb, [facility] [place] [facility] [address] [id number] [place] [address] Feb, [facility] [place] [facility] [address] [id number] [place] [address] Feb, [facility] [place] [facility] [address] [id number] [place] [address] Feb, [facility] [place] [facility] [address] [id number] [place] [address] Feb, [facility] [place] [facility] [address] [id number] [place] [address] Feb, [facility] [place] [facility] [address] [id number] [place] [address] November, [facility] [place] [facility] [address] [id number] [place] [address] November, [facility] [place] [facility] [address] [id number] [place] [address] Sep, [facility] [place] [facility] [address] [id number] [place] [address] Sep, [facility] [place] [facility] [address] [id number] [place] [address] Sep, [facility] [place] [facility] [address] [id number] [place] [address] Sep, [facility] [place] [facility] [address] [id number] [place] [address] Sep, [facility] [place] [facility] [address] [id number] [place] [address] Sep, [facility] [place] [facility] [address] [id number] [place] [address] Sep, [facility] [place] [facility] [address] [id number] [place] [address] Sep, [facility] [place] [facility] [address] [id number] [place] [address] Aug, [facility] [place] [facility] [address] [id number] [place] [address] Aug, [facility] [place] [facility] [address] [id number] [place] [address] Jul, [facility] [place] [facility] [address] [id number] [place] [address] Jul, [facility] [address] [id number] [place] [address] Jul, [facility] [place] [facility] [address] [id number] [place] [address] Jul, [facility] [address] [id number] [place] [address] Jun, [facility] [place] [facility] [address] [id number] [place] [address] Jun, [facility] [address] [id number] [place] [address] May, [facility] [place] [facility] [address] [id number] [place] [address] May, [facility] [place] [facility] [address] [id number] [place] [address] May, [facility] [address] [id number] [place] [address] May, [facility] [place] [facility] [address] [id number] [place] [address] May, [facility] [address] [id number] [place] [address] May, [facility] [place] [facility] [address] [id number] [place] [address] Apr, [facility] [place] [facility] [address] [id number] [place] [address] Apr, [facility] [place] [facility] [address] [id number] [place] [address] Apr, [facility] [place] [facility] [address] [id number] [place] [address] Apr, [facility] [place] [facility] [address] [id number] [place] [address] Mar, [facility] [address] [id number] [place] [address] Mar, [facility] [address] [id number] [place] [address] Jan, [facility] [address] [id number] [place] [address] Jan, [facility] [address] [id number] [place] [address] Jan, [facility] [address] [id number] [place] [address] November, [facility] [address] [id number] [place] [address] November, [facility] [address] [id number] [place] [address] November, [facility] [address] [id number] [place] [address] November, [facility] [address] [id number] [place] [address] Aug, [facility] [address] [id number] [place] [address] Jul, [facility] [address] [id number] [place] [address] Jul, [facility] [place] [facility] [address] [id number] [place] [address] Jul, [facility] [place] [facility] [address] [id number] [place] [address] Jun, [facility] [place] [facility] [address] [id number] [place] [address] Jun, [facility] [place] [facility] [address] [id number] [place] [address] May, [facility] [place] [facility] [address] [id number] [place] [address] May, [facility] [place] [facility] [address] [id number] [place] [address] Apr, [facility] [place] [facility] [address] [id number] [place] [address] Apr, [facility] [place] [facility] [address] [id number] [place] [address] Apr, [facility] [place] [facility] [address] [id number] [place] [address] Apr, [facility] [place] [facility] [address] [id number] [place] [address] Apr, [facility] [place] [facility] [address] [id number] [place] [address] Apr, [facility] [place] [facility] [address] [id number] [place] [address] Apr, [facility] [place] [facility] [address] [id number] [place] [address] Apr, [facility] [place] [facility] [address] [id number] [place] [address] Apr, [facility] [place] [facility] [address] [id number] [place] [address] Mar, [facility] [place] [facility] [address] [id number] [place] [address] Feb, [facility] [place] [facility] [address] [id number] [place] [address] November, [facility] [place] [facility] [address] [id number] [place] [address] November, [facility] [place] [facility] [address] [id number] [place] [address] November, [facility] [place] [facility] [address] [id number] [place] [address] November, [facility] [address] [facility] [id number], [place] [address] Jun, [facility] [address] [facility] [id number], [place] [address] Jun, [facility] [address] [facility] [id number], [place] [address] May, [facility] [address] [facility] [id number], [place] [address] May, [facility] [address] [facility] [id number], [place] [address] Apr, [facility] [id number], [place] [address] Apr, [facility] [id number], [place] [address] May, [facility] [facility] [id number], [place] [address] Apr, [facility] [address], [place] [address] Apr, [facility] [address], [place] [address] Apr, [facility] [id number] [address] Apr, IMMUNIZATIONS No Known Immunizations SOCIAL HISTORY Never Assessed REASON FOR VISIT requesting return call PLAN OF CARE VITAL SIGNS MEDICATIONS No Known Medications RESULTS No Results PROCEDURES No Known [...] Hospitalization History Post Stroke pt went to [facility] and then [facility] 10/15/15 Hospitalization History Hypotension, Wander ateral leg weakness--Via [facility] 01/15/16 Hospitalization History hypertension/chest pain 03/2017
--- OUTSIDE RECORDS SUMMARY | 2023-03-21 11:26 | XMS REPORT ---
Author Author Lady MENDEZ [facility] Address [address] [place] [address] Care Team Providers Care Creative Project Manager Name Role Phone FAHAD MENDEZ Unavailable PROBLEMS Type Condition ICD9-CM Code [id number] Code Onset Dates Condition Status SNOMED Code Problem Hearing loss of aging, bilateral H91.13 Active 43094739 Problem History of arthroplasty of left knee Z96.652 Active 399965540 Problem Eye exam abnormal R93.8 Active 037999 009 Problem History of cerebrovascular accident with hemiparesis or hemiplegia Z86.73 Active 521232088 Problem CVA (cerebral vascular accident) I63.9 Active 515776694 Problem Hypertension I10 Active 27744035 Problem Major depressive disorder, single episode, moderate F32.1 Active 364470898 Problem Dementia F03.90 Active 48581921 Problem Panic attack F41.0 Active 736539732 Problem Vascular dementia without behavioral disturbance F01.50 Active 424345925 Problem Pain in left knee M25.562 Active 437596 03 Problem Non-insulin dependent type 2 diabetes mellitus E11.9 Active 71875480 Problem Other chronic pain G89.29 Active 36941 001 Problem 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 Active 77920319 Problem Diabetes E11.9 Active 753553922 Problem 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 Active 760430712 Problem Mild episode of recurrent major depressive disorder F33.0 Active 29981477 0 Problem Type 2 diabetes mellitus with complication E11.8 Active 80624914 Problem Neuropathy G62.9 Active 776937345 Problem Constipation, unspecified constipation type K59.00 Active 70586835 Problem Anxiety F41.9 Active 65485124 Problem Type 2 diabetes mellitus without complications E11.9 Active 96334130 Problem Falls frequently R29.6 Active 3044635 02 Problem 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 Active 62992364 1 Problem Type 2 diabetes mellitus with diabetic neuropathy, 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 Active 48354507 Problem Fatigue, unspecified type R53.83 Active 98328423 Problem Left hand weakness M62.81 Active 76875 3006 Problem Weakness R53.1 Active 83928091 Problem Falling episodes R29.6 Active 8525235 04 Problem 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 Active 275062054246 Problem Unsteadiness on feet R26.81 Active 19787511 Problem Hypothyroidism (acquired) E03.9 Active 811082170 Problem Dementia with behavioral disturbance, unspecified dementia type F03.91 Active [id number] ALLERGIES No Information SOCIAL HISTORY Never Assessed [...] Hospitalization History Post Stroke pt went to [facility] and then Via [facility] 10/15/15 Hospitalization History Hypotension, Wander ateral leg weakness--Via [facility] 01/15/16 Hospitalization History hypertension/chest pain 03/2017
--- OUTSIDE RECORDS SUMMARY | 2023-03-21 11:26 | XMS REPORT ---
Author Author Lady MENDEZ [facility] Address [address] [place] [address] Care Team Providers Care Ecological Economist Name Role Phone FAHAD MENDEZ Unavailable PROBLEMS Type Condition ICD9-CM Code [id number] Code Onset Dates Condition Status SNOMED Code Problem Hearing loss of aging, bilateral H91.13 Active 27508097 Problem History of arthroplasty of left knee Z96.652 Active 374315582 Problem Eye exam abnormal R93.8 Active 313404 009 Problem History of cerebrovascular accident with hemiparesis or hemiplegia Z86.73 Active 406732757 Problem CVA (cerebral vascular accident) I63.9 Active 397197498 Problem Hypertension I10 Active 68284234 Problem Major depressive disorder, single episode, moderate F32.1 Active 810866141 Problem Dementia F03.90 Active 17206686 Problem Panic attack F41.0 Active 461252405 Problem Vascular dementia without behavioral disturbance F01.50 Active 672328547 Problem Pain in left knee M25.562 Active 770835 03 Problem Non-insulin dependent type 2 diabetes mellitus E11.9 Active 50997809 Problem Other chronic pain G89.29 Active 88041 001 Problem 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 Active 16042138 Problem Diabetes E11.9 Active 911165754 Problem 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 Active 526340269 Problem Mild episode of recurrent major depressive disorder F33.0 Active 36295922 0 Problem Type 2 diabetes mellitus with complication E11.8 Active 73593247 Problem Neuropathy G62.9 Active 038979832 Problem Constipation, unspecified constipation type K59.00 Active 76403299 Problem Anxiety F41.9 Active 13883498 Problem Type 2 diabetes mellitus without complications E11.9 Active 59705498 Problem Falls frequently R29.6 Active 6213740 02 Problem 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 Active 84987907 1 Problem Type 2 diabetes mellitus with diabetic neuropathy, 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 Active 48486726 Problem Fatigue, unspecified type R53.83 Active 97363514 Problem Left hand weakness M62.81 Active 51760 3006 Problem Weakness R53.1 Active 85110815 Problem Falling episodes R29.6 Active 5777662 04 Problem 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 Active 317500944471 Problem Unsteadiness on feet R26.81 Active 31990788 Problem Hypothyroidism (acquired) E03.9 Active 276181776 Problem Dementia with behavioral disturbance, unspecified dementia type F03.91 Active [id number] ALLERGIES No Information SOCIAL HISTORY Never Assessed PLAN OF CARE VITAL SIGNS MEDICATIONS Medication Instructions Dosage Frequency Start Date End Date Duration Status Levothyroxine Sodium 50 mcg TAKE ONE TABLET BY MOUTH ON AN EMPTY STOMACH IN THE MORNING ONCE DAILY FOR 30 DAYS 30 Active RESULTS No Results PROCEDURES No Known [...] History Post Stroke pt went to [facility] and then [facility] 10/15/15 Hospitalization History Hypotension, Wander ateral leg weakness--Via [facility] 01/15/16 Hospitalization History hypertension/chest pain 03/2017
--- OUTSIDE RECORDS SUMMARY | 2023-03-21 11:27 | XMS REPORT ---
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 39322878 Problem Bilateral hearing loss, unspecified hearing loss type H91.93 Active 14177283 Problem 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 Active 93787231 1 Problem Left-sided muscle weakness M62.81 Active 856727793 Problem SNHL (sensory-neural hearing loss), 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 Active 366131273 Problem Panic attack F41.0 Active 678460959 Problem Other chronic pain G89.29 Active 36739 001 Problem History of cerebrovascular accident with hemiparesis or hemiplegia Z86.73 Active 376188533 Problem Hypertension I10 Active 34596464 Problem Dementia with behavioral disturbance, unspecified dementia type F03.91 Active 7261574519346 Problem 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 Active 873563979271 Problem Anxiety F41.9 Active 62953471 Problem Vascular dementia without behavioral disturbance F01.50 Active 115541795 Problem Hypothyroidism (acquired) E03.9 Active 984918438 Problem 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 Active 56001945 ALLERGIES No Information ENCOUNTERS Encounter Location Date Diagnosis [facility] [address] [facility] [id number] [address] Mar, [facility] [id number] [address] Jan, [place] [id number] [place] [address] Dec, Anxiety F41.9 and 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 [place] [id number] [place] [address] November, [place] [address] [address] November, Chronic cough R05 and Cardiomegaly I51.7 [place] [address] [address] Oct, Medicare annual wellness visit, initial Z00.00 [...] seizures R56.1 and Encounter for immunization Z23 [place] [address] [address] Sep, [place] [address] [address] Jul, [place] [address] [address] Jul, [place] [address] [address] Jun, Anxiety F41.9 and 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 [place] [id number] [place] [address] Jun, Bronchitis J40 and Bilateral hearing loss, unspecified hearing loss type H91.93 [place] [address] [address] Jun, [facility] [id number] [place] [address] Apr, [place] [id number] [place] [address] Apr, Encounter for immunization Z23 and Left breast mass N63.20 [place] [id number] [place] [address] 16 Apr, 2017 [facility] [id number] [place] [address] 27 Mar, 2017 CVA (cerebral vascular accident) I63.9 ; Hypertension I10 ; 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 ; Type 2 diabetes mellitus with diabetic neuropathy, 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 and Left breast mass N63 [place] [id number] [place] [address] Mar, Mild episode of recurrent major depressive disorder F33.0 and Anxiety F41.9 [place] [id number] [place] [address] Mar, Breast mass, left N63 [place] [id number] [place] [address] Mar, Breast mass, left N63 [place] [id number] [place] [address] Feb, [place] [id number] [place] [address] Feb, [facility] [id number] [place] [address] Feb, [place] [id number] [place] [address] Feb, [facility] [id number] [place] [address] Feb, Onychomycosis B35.1 and Type 2 diabetes mellitus with complication E11.8 [place] [id number] [place] [address] Jan, Mild episode of recurrent major depressive disorder F33.0 and Anxiety F41.9 [place] [id number] [place] [address] Jan, [place] [id number] [place] [address] Dec, Onychomycosis due to dermatophyte B35.1 ; 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 ; Type 2 diabetes mellitus with diabetic neuropathy, 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 ; Falls frequently R29.6 ; Neuropathy G62.9 ; Dementia with behavioral disturbance, unspecified dementia type F03.91 ; Hypothyroidism (acquired) E03.9 and Left hand pain M79.642 [place] [id number] [place] [address] Dec, [place] [id number] [place] [address] Dec, Hypothyroidism (acquired) E03.9 [place] [id number] [place] [address] Dec, 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 [place] [id number] [place] [address] November, Hypothyroidism (acquired) E03.9 [place] [id number] [place] [address] Oct, [place] [id number] [place] [address] Oct, 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 [place] [id number] [place] [address] Oct, [place] [id number] [place] [address] Oct, Dysuria R30.0 ; 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 ; Bilateral hearing loss, unspecified hearing loss type H91.93 and 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 [facility] [id number] [place] [address] Sep, [facility] [id number] [place] [address] Sep, Open wound of right great toe, initial encounter S91.101A [place] [address] [address] Sep, Breast mass, left N63 ; Non-insulin dependent type 2 diabetes mellitus E11.9 and Vascular dementia without behavioral disturbance F01.50 [place] [id number] [place] [address] Sep, [place] [address] [address] Jul, [place] [id number] [place] [address] Jul, Diabetes E11.9 ; Diaper dermatitis L22 ; Candidiasis of skin and nail B37.2 ; Neuropathy G62.9 ; Status post stroke Z86.73 ; Unsteadiness on feet R26.81 and 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 [place] [id number] [place] [address] May, [place] [id number] [place] [address] May, [place] [id number] [place] [address] May, [place] [id number] [place] [address] May, Dementia with behavioral disturbance, unspecified dementia type F03.91 [place] [id number] [place] [address] May, Dementia with behavioral disturbance, unspecified dementia type F03.91 ; Encounter for immunization Z23 and Diabetes E11.9 [place] [address] [address] May, [place] [id number] [place] [address] May, Neuropathy G62.9 [place] [address] [address] May, [place] [address] [address] Apr, Hypothyroidism (acquired) E03.9 [place] [address] [address] Apr, CVA (cerebral vascular accident) I63.9 ; Left hand weakness M62.81 and Neuropathy G62.9 [place] [address] [address] Apr, Hypokalemia E87.6 [place] [id number] [place] [address] Apr, Hypokalemia E87.6 [place] [id number] [place] [address] Mar, Diabetes E11.9 ; Edema, unspecified type R60.9 ; Anxiety disorder, unspecified F41.9 ; Pain in left knee M25.562 ; Other chronic pain G89.29 and Status post stroke Z86.73 [place] [id number] [place] [address] 15 Mar, 2016 [place] [id number] [place] [address] 15 Mar, 2016 [place] [id number] [place] [address] 07 Mar, 2016 Neuropathy G62.9 [place] [address] [address] Feb, Anorexia R63.0 and Neuropathy G62.9 [facility] [address] [address] Jan, Diabetes E11.9 ; Neuropathy G62.9 ; Panic attack F41.0 ; Pain in left knee M25.562 and Hypertension 401.9 [facility] [address] [address] Jan, Weakness R53.1 ; Fatigue, unspecified type R53.83 ; Falling episodes R29.6 and Neuropathy G62.9 [place] [address] [address] Jan, Pain in left knee M25.562 [place] [address] [address] Jan, [place] [address] [address] Jan, [facility] [address] [address] Jan, [place] [address] [address] Dec, Diabetes E11.9 ; Neuropathy G62.9 and Dementia F03.90 [facility] [address] [address] Dec, [facility] [address] [address] Dec, Neuropathy G62.9 ; Diabetes E11.9 ; Anxiety F41.9 and Constipation, unspecified constipation type K59.00 [facility] [address] [address] Dec, [facility] [address] [address] Dec, Anxiety F41.9 [facility] [id number] [place] [address] November, [facility] [id number] [place] [address] November, Pain in left knee M25.562 ; Other chronic pain G89.29 ; Diabetes E11.9 and Left eye pain H57.12 [facility] [id number] [place] [address] November, [facility] [id number] [place] [address] November, Hearing loss, unspecified laterality H91.90 [place] [id number] [place] [address] November, [place] [id number] [place] [address] November, [facility] [id number] [place] [address] November, Pain in right knee M25.561 [place] [id number] [place] [address] November, [facility] [id number] [place] [address] Oct, [place] [id number] [place] [address] Oct, [facility] [id number] [place] [address] Oct, Edema of left lower extremity R60.0 ; Diabetes E11.9 ; 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 I63.39 and Anxiety disorder, unspecified F41.9 [facility] [id number] [place] [address] 14 Oct, 2015 Panic attack F41.0 [facility] [id number] [place] [address] 14 Oct, 2015 [facility] [address] [address] Oct, CVA (cerebral vascular accident) I63.9 [facility] [id number] [place] [address] Oct, [place] [id number] [place] [address] Oct, Diabetes E11.9 ; Hypertension I10 and Dementia F03.90 [place] [id number] [place] [address] Sep, [place] [id number] [place] [address] Sep, [place] [id number] [place] [address] Sep, Diabetes E11.9 ; 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 ; Onychomycosis B35.1 and Fatigue R53.83 [place] [id number] [place] [address] Aug, [place] [id number] [place] [address] Aug, [place] [id number] [place] [address] Jul, [place] [id number] [place] [address] Jul, [facility] [id number] [place] [address] Jun, 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 [facility] [id number] [place] [address] Jun, Anxiety disorder, unspecified F41.9 and Major depressive disorder, single episode, moderate F32.1 [place] [id number] [place] [address] Jun, [facility] [id number] [place] [address] Jun, [facility] [id number] [place] [address] May, Left knee pain M25.562 [facility] [address] [address] May, [facility] [address] [address] May, [facility] [address] [address] May, [facility] [address] [address] May, Hypertension I10 ; Diabetes E11.9 and Depression F32.9 [facility] [address] [address] May, [facility] [address] [address] Apr, Left knee pain M25.562 ; Type 2 diabetes mellitus with complication E11.8 and Encounter for immunization Z23 [facility] [id number] [place] [address] Apr, [facility] [id number] [place] [address] Apr, [facility] [id number] [place] [address] Mar, [facility] [address] [address] Mar, Silvestre stanley 727.51 [facility] [id number] [place] [address] Mar, [facility] [address] [place] [address] Mar, [facility] [address], [place] [address] Mar, [facility] [address], [place] [address] Feb, [facility] [address], [place] [address] Feb, [facility] [address], [place] [address] Feb, Hypertension 401.9 and Diabetes 250.00 [facility] [address] [place] [address] Jan, [facility] [address], [place] [address] Jan, Diabetes 250.00 [facility] [address], [place] [address] Jan, [facility] [address], [place] [address] Jan, [facility] [address], [place] [address] Dec, Diabetes 250.00 and Forgetfulness 780.99 [facility] [address], [place] [address] Dec, [facility] [address], [place] [address] Dec, Diabetes mellitus 250.00 [facility] [address], [place] [address] Dec, [facility] [address], [place] [address] Dec, [facility] [id number] [address] Dec, [facility] [address] [facility] [id number] [place] [address] 16 Dec, 2014 Diabetes 250.00 and Dysthymia 300.4 [facility] [address] [facility] [id number] [place] [address] 15 Dec, 2014 [facility] [address] [facility] [id number] [place] [address] 09 Dec, 2014 Grief 309.0 and Diabetes mellitus 250.00 [facility] [address] [facility] [id number] [place] [address] 14 Oct, 2014 [facility] [address] [facility] [id number] [place] [address], [place] [address] Oct, [facility] [address] [facility] [id number] [place] [address] Jul, [facility] [address] [place] [address] Jul, [facility] [id number] [place] [address] Jul, [facility] [id number] [place] [address] Jul, [facility] [id number] [place] [address] Jul, [facility] [id number] [place] [address] May, [facility] [address] [facility] [id number] [place] [address] May, [facility] [id number] [place] [address] Apr, [facility] [address] [facility] [id number] [place] [address] Apr, [facility] [id number] [place] [address] Mar, [facility] [place] [facility] [address] [id number] [place] [address] Mar, [facility] [place] [facility] [address] [id number] [place] [address] Feb, [facility] [place] [facility] [address] [id number] [place] [address] Feb, [facility] [place] [facility] [address] [id number] [place] [address] Feb, [facility] [place] [facility] [address] [id number] [place] [address] Feb, [facility] [place] [facility] [address] [id number] [place] [address] Feb, [facility] [place] [facility] [address] [id number] [place] [address] Feb, [facility] [place] [facility] [address] [id number] [place] [address] November, [facility] [place] [facility] [address] [id number] [place] [address] November, [facility] [place] [facility] [address] [id number] [place] [address] Sep, [facility] [place] [facility] [address] [id number] [place] [address] Sep, [facility] [place] [facility] [address] [id number] [place] [address] Sep, [facility] [place] [facility] [address] [id number] [place] [address] Sep, [facility] [place] [facility] [address] [id number] [place] [address] Sep, [facility] [place] [facility] [address] [id number] [place] [address] Sep, [facility] [place] [facility] [address] [id number] [place] [address] Sep, [facility] [place] [facility] [address] [id number] [place] [address] Sep, [facility] [place] [facility] [address] [id number] [place] [address] Aug, [facility] [place] [facility] [address] [facility] [id number] [place] [address] Aug, [facility] [place] [facility] [address] [id number] [place] [address] Jul, [facility] [place] [facility] [address] [id number] [place] [address] Jul, [facility] [place] [facility] [address] [id number] [place] [address] Jul, [facility] [place] [facility] [address] [id number] [place] [address] Jul, [facility] [place] [facility] [address] [id number], [place] [address] Jun, [facility] [place] [facility] [address] [id number], [place] [address] Jun, [facility] [place] [facility] [address] [id number] [place] [address] May, [facility] [place] [facility] [address] [id number], [place] [address] May, [facility] [place] [facility] [address] [id number], [place] [address] May, [facility] [place] [facility] [address] [id number] [place] [address] May, [facility] [place] [facility] [address] [id number], [place] [address] May, [facility] [place] [facility] [address] [facility] [id number], [place] [address] May, [facility] [place] [facility] [address] [id number] [place] [address] 17 Apr, 2013 [facility] [address] [id number] [place] [address] 17 Apr, 2013 [facility] [address] [id number] [place] [address] 16 Apr, 2013 [facility] [address] [id number] [place] [address] 16 Apr, 2013 [facility] [address] [id number] [place] [address] 27 Mar, 2013 [facility] [address] [id number] [place] [address] 27 Mar, 2013 [facility] [address] [id number] [place] [address] Jan, [facility] [address] [id number] [place] [address] Jan, [facility] [address] [id number] [place] [address] Jan, [facility] [address] [id number] [place] [address] November, [facility] [address] [id number] [place] [address] November, [facility] [address] [id number] [place] [address] November, [facility] [address] [id number] [place] [address] November, [facility] [address] [id number] [place] [address] Aug, [facility] [address] [id number] [place] [address] Jul, [facility] [address] [id number] [place] [address] Jul, [facility] [place] [facility] [address] [id number] [place] [address] Jul, [facility] [place] [facility] [address] [id number] [place] [address] Jun, [facility] [place] [facility] [address] [id number] [place] [address] Jun, [facility] [place] [facility] [address] [id number] [place] [address] May, [facility] [place] [facility] [address] [id number] [place] [address] May, [facility] [place] [facility] [address] [id number] [place] [address] Apr, [facility] [place] [facility] [address] [id number] [place] [address] Apr, [facility] [place] [facility] [address] [id number] [place] [address] Apr, [facility] [place] [facility] [address] [id number] [place] [address] Apr, [facility] [place] [facility] [address] [facility] [id number], [place] [address] Apr, [facility] [address] [id number], [place] [address] Apr, [facility] [address] [id number], [place] [address] Apr, [facility] [address] [id number], [place] [address] Apr, [facility] [address] [id number], [place] [address] Apr, [facility] [address] [facility] [id number], [place] [address] Mar, [facility] [address] [id number], [place] [address] Feb, [facility] [place] [address] [facility] [id number], [place] [address] November, [facility] [address] [facility] [id number], [place] [address] November, [facility] [id number], [place] [address] November, [facility] [address] [id number], [place] [address] November, [facility] [id number] [place] [address] Jun, [facility] [address] [id number], [place] [address] Jun, [facility] [id number], [place] [address] May, [facility] [place] [id number], [place] [address] May, [facility] [id number], [place] [address] Apr, [facility] [place] [id number], [place] [address] Apr, [facility] [place] [id number], [place] [address] May, [facility] [place] [address] [id number], [place] [address] Apr, [facility] [address] [id number], [place] [address] Apr, [facility] [address] [id number], [place] [address] Apr, [facility] [place] [id number], [place] [address] Apr, IMMUNIZATIONS No Known Immunizations SOCIAL HISTORY Never Assessed REASON FOR VISIT Requesting letter PLAN OF CARE VITAL SIGNS MEDICATIONS Unknown [...] Stroke pt went to [facility] and then [facility] 10/15/15 Hospitalization History Hypotension, Wander ateral leg weakness--Via [facility] 01/15/16 Hospitalization History hypertension/chest pain 03/2017
--- OUTSIDE RECORDS SUMMARY | 2023-03-21 11:27 | XMS REPORT ---
Author Author [facility] C Address [address] [place] [address] Care Team Providers Care Dampproofer Name Role Phone MARK CHRISTINA Unavailable PROBLEMS Type Condition ICD9-CM Code [id number] Code Onset Dates Condition Status SNOMED Code Problem Falls frequently R29.6 Active 1526082 02 Problem 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 Active 61054741 1 Problem Type 2 diabetes mellitus with diabetic neuropathy, 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 Active 63965828 Problem Diabetes E11.9 Active 285377408 Problem History of cerebrovascular accident with hemiparesis or hemiplegia Z86.73 Active 723621970 Problem Cardiomegaly I51.7 Active 6480104 Problem SNHL (sensory-neural hearing loss), 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 Active 271152668 Problem Bilateral hearing loss, unspecified hearing loss type H91.93 Active 50741711 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 36984185 Problem Left-sided muscle weakness M62.81 Active 577730922 Problem Other chronic pain G89.29 Active 04028 001 Problem Anxiety F41.9 Active 32820405 Problem Hypertension I10 Active 05978531 Problem Panic attack F41.0 Active 601144347 Problem 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 Active 608081219732 Problem Vascular dementia without behavioral disturbance F01.50 Active 224055117 Problem Hypothyroidism (acquired) E03.9 Active 771130983 Problem 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 Active 69734052 Problem Dementia with behavioral disturbance, unspecified dementia type F03.91 Active 2499300714834 Problem 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 Active 119502393 ALLERGIES No Information ENCOUNTERS Encounter Location Date Diagnosis [facility] [address] [facility] [id number] [address] Apr, [facility] [id number] [place] [address] Apr, [place] [id number] [place] [address] Mar, Anxiety F41.9 ; 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 and Dementia with behavioral disturbance, unspecified dementia type F03.91 [place] [id number] [place] [address] Mar, [place] [address] [address] Mar, Diabetes E11.9 ; Hypothyroidism (acquired) E03.9 ; Hypertension I10 and Type 2 diabetes mellitus with diabetic neuropathy, 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 [place] [id number] [place] [address] Jan, [place] [id number] [place] [address] Dec, Anxiety F41.9 and 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 [place] [id number] [place] [address] November, [place] [id number] [place] [address] November, Chronic cough R05 and Cardiomegaly I51.7 [place] [id number] [place] [address] Oct, Medicare annual wellness visit, initial Z00.00 [...] seizures R56.1 and Encounter for immunization Z23 [place] [id number] [place] [address] Sep, [facility] [id number] [place] [address] Jul, [facility] [id number] [place] [address] Jul, [place] [id number] [place] [address] Jun, Anxiety F41.9 and 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 [place] [id number] [place] [address] Jun, Bronchitis J40 and Bilateral hearing loss, unspecified hearing loss type H91.93 [place] [id number] [place] [address] Jun, [place] [address] [address] Apr, [place] [id number] [place] [address] Apr, Encounter for immunization Z23 and Left breast mass N63.20 [place] [id number] [place] [address] 16 Apr, 2017 [place] [id number] [place] [address] Mar, CVA (cerebral vascular accident) I63.9 ; Hypertension I10 ; 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 ; Type 2 diabetes mellitus with diabetic neuropathy, 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 and Left breast mass N63 [place] [id number] [place] [address] Mar, Mild episode of recurrent major depressive disorder F33.0 and Anxiety F41.9 [place] [id number] [place] [address] Mar, Breast mass, left N63 [place] [address] [address] Mar, Breast mass, left N63 [facility] [id number] [place] [address] Feb, [facility] [id number] [place] [address] Feb, [facility] [id number] [place] [address] Feb, [facility] [id number] [place] [address] Feb, [place] [id number] [place] [address] Feb, Onychomycosis B35.1 and Type 2 diabetes mellitus with complication E11.8 [place] [id number] [place] [address] Jan, Mild episode of recurrent major depressive disorder F33.0 and Anxiety F41.9 [place] [id number] [place] [address] Jan, [place] [id number] [place] [address] Dec, Onychomycosis due to dermatophyte B35.1 ; 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 ; Type 2 diabetes mellitus with diabetic neuropathy, 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 ; Falls frequently R29.6 ; Neuropathy G62.9 ; Dementia with behavioral disturbance, unspecified dementia type F03.91 ; Hypothyroidism (acquired) E03.9 and Left hand pain M79.642 [place] [address] [place] [address] Dec, [place] [id number] [place] [address] Dec, Hypothyroidism (acquired) E03.9 [place] [id number] [place] [address] Dec, 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 [facility] [id number] [place] [address] November, Hypothyroidism (acquired) E03.9 [facility] [id number] [place] [address] Oct, [facility] [id number] [place] [address] Oct, 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 [facility] [id number] [place] [address] Oct, [place] [id number] [place] [address] Oct, Dysuria R30.0 ; 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 ; Bilateral hearing loss, unspecified hearing loss type H91.93 and 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 [facility] [id number] [place] [address] Sep, [facility] [id number] [place] [address] Sep, Open wound of right great toe, initial encounter S91.101A [place] [id number] [place] [address] Sep, Breast mass, left N63 ; Non-insulin dependent type 2 diabetes mellitus E11.9 and Vascular dementia without behavioral disturbance F01.50 [facility] [id number] [place] [address] Sep, [place] [id number] [place] [address] Jul, [facility] [id number] [place] [address] Jul, Diabetes E11.9 ; Diaper dermatitis L22 ; Candidiasis of skin and nail B37.2 ; Neuropathy G62.9 ; Status post stroke Z86.73 ; Unsteadiness on feet R26.81 and 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 [place] [address] [address] May, [place] [address] [address] May, [place] [address] [address] May, [place] [address] [address] May, Dementia with behavioral disturbance, unspecified dementia type F03.91 [place] [address] [address] May, Dementia with behavioral disturbance, unspecified dementia type F03.91 ; Encounter for immunization Z23 and Diabetes E11.9 [place] [address] [address] May, [place] [address] [address] May, Neuropathy G62.9 [place] [address] [address] May, [place] [address] [address] Apr, Hypothyroidism (acquired) E03.9 [place] [address] [address] Apr, CVA (cerebral vascular accident) I63.9 ; Left hand weakness M62.81 and Neuropathy G62.9 [place] [id number] [place] [address] Apr, Hypokalemia E87.6 [place] [address] [address] Apr, Hypokalemia E87.6 [facility] [id number] [place] [address] Mar, Diabetes E11.9 ; Edema, unspecified type R60.9 ; Anxiety disorder, unspecified F41.9 ; Pain in left knee M25.562 ; Other chronic pain G89.29 and Status post stroke Z86.73 [place] [id number] [place] [address] Mar, [place] [id number] [place] [address] Mar, [place] [address] [address] Mar, Neuropathy G62.9 [place] [address] [address] Feb, Anorexia R63.0 and Neuropathy G62.9 [place] [id number] [place] [address] Jan, Diabetes E11.9 ; Neuropathy G62.9 ; Panic attack F41.0 ; Pain in left knee M25.562 and Hypertension 401.9 [place] [id number] [place] [address] Jan, Weakness R53.1 ; Fatigue, unspecified type R53.83 ; Falling episodes R29.6 and Neuropathy G62.9 [place] [id number] [place] [address] Jan, Pain in left knee M25.562 [place] [address] [address] Jan, [place] [id number] [place] [address] Jan, [place] [id number] [place] [address] Jan, [place] [id number] [place] [address] Dec, Diabetes E11.9 ; Neuropathy G62.9 and Dementia F03.90 [place] [address] [address] Dec, [place] [address] [address] Dec, Neuropathy G62.9 ; Diabetes E11.9 ; Anxiety F41.9 and Constipation, unspecified constipation type K59.00 [place] [id number] [place] [address] Dec, [place] [address] [address] Dec, Anxiety F41.9 [place] [id number] [place] [address] November, [place] [id number] [place] [address] November, Pain in left knee M25.562 ; Other chronic pain G89.29 ; Diabetes E11.9 and Left eye pain H57.12 [place] [id number] [place] [address] November, [place] [id number] [place] [address] November, Hearing loss, unspecified laterality H91.90 [place] [id number] [place] [address] November, [place] [id number] [place] [address] November, [place] [id number] [place] [address] November, Pain in right knee M25.561 [place] [address] [address] November, [facility] [address] [place] [address] Oct, [facility] [id number] [place] [address] Oct, [facility] [id number] [place] [address] Oct, Edema of left lower extremity R60.0 ; Diabetes E11.9 ; 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 I63.39 and Anxiety disorder, unspecified F41.9 [place] [id number] [place] [address] Oct, Panic attack F41.0 [place] [id number] [place] [address] Oct, [place] [id number] [place] [address] Oct, CVA (cerebral vascular accident) I63.9 [facility] [id number] [place] [address] Oct, [place] [id number] [place] [address] Oct, Diabetes E11.9 ; Hypertension I10 and Dementia F03.90 [place] [id number] [place] [address] Sep, [facility] [id number] [place] [address] Sep, [facility] [id number] [place] [address] Sep, Diabetes E11.9 ; 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 ; Onychomycosis B35.1 and Fatigue R53.83 [facility] [id number] [place] [address] Aug, [place] [id number] [place] [address] Aug, [facility] [id number] [place] [address] Jul, [facility] [id number] [place] [address] Jul, [facility] [id number] [place] [address] Jun, 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 [facility] [id number] [place] [address] Jun, Anxiety disorder, unspecified F41.9 and Major depressive disorder, single episode, moderate F32.1 [facility] [id number] [place] [address] Jun, [facility] [id number] [place] [address] Jun, [facility] [id number] [place] [address] May, Left knee pain M25.562 [facility] [id number] [place] [address] May, [facility] [id number] [place] [address] May, [facility] [id number] [place] [address] May, [facility] [id number] [place] [address] May, Hypertension I10 ; Diabetes E11.9 and Depression F32.9 [facility] [id number] [place] [address] May, [facility] [address] [place] [address] Apr, Left knee pain M25.562 ; Type 2 diabetes mellitus with complication E11.8 and Encounter for immunization Z23 [facility] [id number] [place] [address] Apr, [facility] [id number] [place] [address] Apr, [facility] [id number] [place] [address] Mar, [facility] [id number] [place] [address] Mar, Silvestre stanley 727.51 [facility] [id number] [place] [address] Mar, [facility] [id number] [place] [address] Mar, [facility] [id number] [place] [address] Mar, [facility] [id number] [place] [address] Feb, [facility] [id number] [place] [address] Feb, [facility] [address] [place] [address] Feb, Hypertension 401.9 and Diabetes 250.00 [facility] [id number] [place] [address] Jan, [facility] [id number] [place] [address] Jan, Diabetes 250.00 [facility] [id number] [place] [address] Jan, [facility] [address] [address] Jan, [facility] [id number] [address] Dec, Diabetes 250.00 and Forgetfulness 780.99 [facility] [address] [address] Dec, [facility] [address] [address] Dec, Diabetes mellitus 250.00 [facility] [id number] [place] [address] Dec, [facility] [address] [address] Dec, [facility] [id number] [place] [address] Dec, [facility] [address] [address] 16 Dec, 2014 Diabetes 250.00 and Dysthymia 300.4 [facility] [address] [address] Dec, [facility] [address] [address] Dec, Grief 309.0 and Diabetes mellitus 250.00 [facility] [address] [address] Oct, [facility] [address] [address] Oct, [facility] [address] [address] Jul, [facility] [address] [address] Jul, [facility] [address] [address] Jul, [facility] [address] [address] Jul, [facility] [place] [facility] [address] [id number] [place] [address] Jul, [facility] [place] [facility] [address] [id number] [place] [address] May, [facility] [place] [facility] [address] [id number] [place] [address] May, [facility] [place] [facility] [address] [id number] [place] [address] Apr, [facility] [place] [facility] [address] [id number] [place] [address] Apr, [facility] [place] [facility] [address] [id number] [place] [address] Mar, [facility] [place] [facility] [address] [id number] [place] [address] Mar, [facility] [place] [facility] [address] [id number] [place] [address] Feb, [facility] [place] [facility] [address] [id number] [place] [address] Feb, [facility] [place] [facility] [address] [id number] [place] [address] Feb, [facility] [place] [facility] [address] [id number] [place] [address] Feb, [facility] [place] [facility] [address] [id number] [address] Feb, [facility] [place] [facility] [address] [id number] [place] [address] Feb, [facility] [place] [facility] [address] [id number] [place] [address] November, [facility] [place] [facility] [address] [id number] [place] [address] November, [facility] [place] [facility] [address] [id number] [place] [address] Sep, [facility] [place] [facility] [address] [id number] [place] [address] Sep, [facility] [place] [facility] [address] [id number] [place] [address] Sep, [facility] [place] [facility] [address] [id number] [place] [address] Sep, [facility] [place] [facility] [address] [id number] [place] [address] Sep, [facility] [place] [facility] [address] [id number] [place] [address] Sep, [facility] [place] [facility] [address] [id number] [place] [address] Sep, [facility] [place] [facility] [address] [id number] [place] [address] Sep, [facility] [place] [facility] [address] [id number] [place] [address] Aug, [facility] [place] [facility] [address] [id number] [place] [address] Aug, [facility] [place] [facility] [address] [id number] [place] [address] Jul, [facility] [place] [facility] [address] [id number] [place] [address] Jul, [facility] [place] [facility] [address] [id number] [place] [address] Jul, [facility] [place] [facility] [address] [id number] [place] [address] Jul, [facility] [place] [facility] [address] [id number] [place] [address] Jun, [facility] [place] [facility] [address] [id number] [place] [address] Jun, [facility] [place] [facility] [address] [id number] [place] [address] May, [facility] [place] [facility] [address] [id number] [place] [address] May, [facility] [place] [facility] [address] [id number] [place] [address] May, [facility] [place] [facility] [address] [id number] [place] [address] May, [facility] [place] [facility] [address] [id number] [place] [address] May, [facility] [place] [facility] [address] [id number] [place] [address] May, [facility] [place] [facility] [address] [id number] [place] [address] Apr, [facility] [place] [facility] [address] [id number] [place] [address] Apr, [facility] [place] [facility] [address] [id number] [place] [address] Apr, [facility] [place] [facility] [address] [id number] [place] [address] Apr, [facility] [place] [facility] [address] [id number] [place] [address] Mar, [facility] [place] [facility] [address] [id number] [place] [address] Mar, [facility] [place] [facility] [address] [id number] [place] [address] Jan, [facility] [place] [facility] [address] [id number] [place] [address] Jan, [facility] [place] [facility] [address] [id number] [place] [address] Jan, [facility] [place] [facility] [address] [id number] [place] [address] November, [facility] [address] [id number] [place] [address] November, [facility] [place] [facility] [address] [id number] [place] [address] November, [facility] [place] [facility] [address] [id number] [place] [address] November, [facility] [place] [facility] [address] [id number] [place] [address] Aug, [facility] [place] [facility] [address] [id number] [place] [address] Jul, [facility] [place] [facility] [address] [id number] [place] [address] Jul, [facility] [address] [id number] [place] [address] Jul, [facility] [place] [facility] [address] [id number] [place] [address] Jun, [facility] [place] [facility] [address] [id number] [place] [address] Jun, [facility] [place] [facility] [address] [id number] [place] [address] May, [facility] [place] [facility] [address] [id number] [place] [address] May, [facility] [place] [facility] [address] [id number] [place] [address] Apr, [facility] [place] [facility] [address] [id number] [place] [address] Apr, [facility] [place] [facility] [address] [id number] [place] [address] Apr, [facility] [place] [facility] [address] [address] [id number] [place] [address] Apr, [facility] [place] [facility] [address] [id number] [place] [address] Apr, [facility] [place] [facility] [address] [id number] [place] [address] Apr, [facility] [place] [facility] [address] [id number] [place] [address] Apr, [facility] [place] [facility] [address] [id number] [place] [address] Apr, [facility] [place] [facility] [address] [id number] [place] [address] Apr, [facility] [place] [facility] [address] [id number] [place] [address] Mar, [facility] [place] [facility] [address] [id number] [place] [address] Feb, [facility] [place] [facility] [address] [id number] [place] [address] November, [facility] [place] [facility] [address] [id number] [place] [address] November, [facility] [place] [facility] [address] [id number] [place] [address] November, [facility] [place] [facility] [address] [id number] [place] [address] November, [facility] [place] [facility] [address] [id number] [place] [address] Jun, [facility] [place] [facility] [address] [id number] [place] [address] Jun, [facility] [place] [facility] [address] [id number] [place] [address] May, [facility] [place] [facility] [address] [id number] [place] [address] May, [facility] [place] [facility] [address] [id number] [place] [address] Apr, [facility] [address] [facility] [id number] [address] Apr, [facility] [id number] [address] May, [facility] [address] [facility] [id number], [place] [address] Apr, [facility] [id number] [address] Apr, [facility] [address] [facility] [id number], [place] [address] Apr, [facility] [id number] [address] Apr, IMMUNIZATIONS No Known Immunizations SOCIAL HISTORY Never Assessed REASON FOR VISIT f/u- AB/MA PLAN OF CARE Activity Details VITAL SIGNS Height 62 in 2018-04-06 Weight 158.7 lbs 2018-04-06 Heart Rate 70 bpm 2018-04-06 Respiratory Rate 20 2018-04-06 BMI 29.02 kg/m2 2018-04-06 Blood pressure systolic 102 mmHg Blood pressure diastolic 66 mmHg 2018-03 MEDICATIONS Medication Instructions Dosage Frequency Start Date End Date Duration Status Blood Glucose Monitor System N/A test blood sugar 24h Jul, Active BusPIRone HCl 10 MG Orally Twice a day 1 tablet 12h 30 days Active Wheelchair - as directed Jan, Active Test strips Test Strips ICD10- E11.9 2 times a day test blood sugar 12h Oct, Active Bydureon 2 MG Subcutaneous once weekly Inject 2mg 28 Active Levothyroxine Sodium 50 MCG TAKE ONE TABLET BY MOUTH ONCE DAILY IN THE MORNING ON AN EMPTY STOMACH 30 Active Norvasc 10 MG Orally Once a day 1 tablet 24h Active MetFORMIN HCl ER 500 MG TAKE ONE TABLET BY MOUTH TWICE DAILY WITH MEALS 90 Active Gabapentin 300 MG TAKE ONE CAPSULE BY MOUTH THREE TIMES DAILY 30 Active Aricept 5 MG TAKE ONE TABLET BY MOUTH ONCE DAILY AT BEDTIME 30 Active Sertraline HCl 100 MG TAKE ONE AND ONE-HALF TABLETS BY MOUTH ONCE DAILY. Active MetFORMIN HCl ER 750 MG TAKE ONE TABLET BY MOUTH ONCE DAILY WITH A MEAL 90 Active Tylenol 325 MG Orally every 6 hrs 2 tablet as needed 6h Aug, Active Carvedilol 3.125 MG TAKE ONE TABLET BY MOUTH TWICE DAILY 30 Active Levetiracetam 500 MG Orally Twice a day 1 tablet 12h 90 Active Atorvastatin Calcium 40 MG TAKE ONE TABLET BY MOUTH ONCE DAILY AT BEDTIME 90 Active RESULTS No Results PROCEDURES Procedure Date Ordered Result Body Site LAB NOT BILLED BY [facility] Apr 06, 2018 MICROALBUMIN, SEMIQUANT Apr 06, 2018 VENIPUNCT, ROUTINE* Apr 06, 2018 GLYCATED HEMOGLOBIN TEST Apr 06, 2018 [facility] VISIT ESTABLISHED PATIENT Apr 06, 2018 INSTRUCTIONS MEDICATIONS ADMINISTERED No Known Medications [...] Hospitalization History Post Stroke pt went to [facility] and then [facility] 10/15/15 Hospitalization History Hypotension, Wander ateral leg weakness--Via [facility] 01/15/16 Hospitalization History hypertension/chest pain 03/2017
--- OUTSIDE RECORDS SUMMARY | 2023-03-21 11:27 | XMS REPORT ---
Author Author 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 Active 783438919715 Problem Dementia with behavioral disturbance, unspecified dementia type F03.91 Active 9317479117665 Problem 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 Active 00359797 Problem Vascular dementia without behavioral disturbance F01.50 Active 333249092 Problem Type 2 diabetes mellitus with diabetic neuropathy, 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 Active 28837125 Problem 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 Active 51319043 1 Problem Bilateral hearing loss, unspecified hearing loss type H91.93 Active 97148463 Problem Diabetes E11.9 Active 598829960 Problem Falls frequently R29.6 Active 9910026 02 Problem History of cerebrovascular accident with hemiparesis or hemiplegia Z86.73 Active 759958525 Problem Type 2 diabetes mellitus with complication, without long-term current use of insulin E11.8 Active 87011276 Problem 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 Active 325126677 Problem Hypertension I10 Active 27716127 Problem SNHL (sensory-neural hearing loss), 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 Active 186153187 Problem Left-sided muscle weakness M62.81 Active 995055172 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 00550767 Problem Cardiomegaly I51.7 Active 8520532 ALLERGIES No Information ENCOUNTERS Encounter Location Date Diagnosis [facility] [id number] [address] 18 Mar, 2019 [facility] [id number] [address] Mar, Dysuria R30.[address] [address] Feb, [facility] [address] [address] Feb, [facility] [address] [address] Jan, [facility] [address] [address] Dec, [facility] [address] [address] Dec, [facility] [address] [address] Dec, [facility] [id number] [address] November, Dental examination Z01.20 and Periodontitis K05.30 [facility] [address] [address] November, [facility] [address] [address] November, [facility] [address] [address] Oct, Encounter for Medicare annual wellness exam [...] hearing loss, unspecified hearing loss type H91.93 [facility] [address] [address] Oct, [place] [address] [address] Oct, [place] [id number] [place] [address] Sep, [place] [address] [place] [address] Aug, Anxiety F41.9 [place] [facility] [id number] [place] [address] Aug, Encounter for immunization Z23 [place] [facility] [id number] [place] [address] Jul, History of cerebrovascular accident with hemiparesis or hemiplegia Z86.73 ; Dementia with behavioral disturbance, unspecified dementia type F03.91 ; Hypothyroidism (acquired) E03.9 ; Type 2 diabetes mellitus with diabetic neuropathy, 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 and 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8 [place] [id number] [place] [address] Jun, Hypertension I10 ; Anxiety F41.9 ; Dementia with behavioral disturbance, unspecified dementia type F03.91 ; 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 ; 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 ; Encounter for immunization Z23 ; Skin lesion of left leg L98.9 ; BMI 28.0-28.9,adult Z68.28 and Other chronic pain G89.29 [facility] [address] [address] May, Lymphadenopathy, axillary R59.0 [facility] [id number] [place] [address] May, [facility] [id number] [place] [address] Apr, [facility] [id number] [place] [address] Apr, [facility] [id number] [place] [address] Apr, [facility] [id number] [place] [address] Apr, [facility] [id number] [place] [address] Mar, Anxiety F41.9 ; 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 and Dementia with behavioral disturbance, unspecified dementia type F03.91 [facility] [id number] [place] [address] Mar, [facility] [id number] [place] [address] Mar, Diabetes E11.9 ; Hypothyroidism (acquired) E03.9 ; Hypertension I10 and Type 2 diabetes mellitus with diabetic neuropathy, 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 [facility] [address] [address] Jan, [facility] [address] [address] Dec, Anxiety F41.9 and 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 [facility] [address] [place] [address] November, [facility] [id number] [place] [address] November, Chronic cough R05 and Cardiomegaly I51.7 [place] [facility] [id number] [place] [address] Oct, Medicare annual wellness visit, initial Z00.00 [...] and Encounter for immunization Z23 [place] [address] [address] Sep, [place] [address] [address] Jul, [place] [address] [address] Jul, [place] [address] [address] Jun, Anxiety F41.9 and 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 [place] [address] [address] Jun, Bronchitis J40 and Bilateral hearing loss, unspecified hearing loss type H91.93 [place] [address] [address] Jun, [place] [address] [address] Apr, [place] [address] [address] Apr, Encounter for immunization Z23 and Left breast mass N63.20 [place] [address] [address] Apr, [facility] [address] [place] [address] Mar, CVA (cerebral vascular accident) I63.9 ; Hypertension I10 ; 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 ; Type 2 diabetes mellitus with diabetic neuropathy, 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 and Left breast mass N63 [facility] [id number] [place] [address] Mar, Mild episode of recurrent major depressive disorder F33.0 and Anxiety F41.9 [facility] [id number] [place] [address] Mar, Breast mass, left N63 [facility] [id number] [place] [address] Mar, Breast mass, left N63 [facility] [id number] [place] [address] Feb, [facility] [id number] [place] [address] Feb, [facility] [id number] [place] [address] Feb, [facility] [id number] [place] [address] Feb, [facility] [id number] [place] [address] Feb, Onychomycosis B35.1 and Type 2 diabetes mellitus with complication E11.8 [facility] [id number] [place] [address] Jan, Mild episode of recurrent major depressive disorder F33.0 and Anxiety F41.9 [facility] [id number] [place] [address] Jan, [facility] [id number] [place] [address] Dec, Onychomycosis due to dermatophyte B35.1 ; 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 ; Type 2 diabetes mellitus with diabetic neuropathy, 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 ; Falls frequently R29.6 ; Neuropathy G62.9 ; Dementia with behavioral disturbance, unspecified dementia type F03.91 ; Hypothyroidism (acquired) E03.9 and Left hand pain M79.642 [place] [address] [address] Dec, [place] [address] [address] Dec, Hypothyroidism (acquired) E03.9 [place] [address] [address] Dec, 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 [place] [address] [address] November, Hypothyroidism (acquired) E03.9 [place] [address] [address] Oct, [place] [address] [address] Oct, 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 [place] [address] [address] Oct, [place] [address] [address] Oct, Dysuria R30.0 ; 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 ; Bilateral hearing loss, unspecified hearing loss type H91.93 and 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 [facility] [address] [address] Sep, [facility] [address] [address] Sep, Open wound of right great toe, initial encounter S91.101A [place] [id number] [place] [address] 13 Sep, 2016 Breast mass, left N63 ; Non-insulin dependent type 2 diabetes mellitus E11.9 and Vascular dementia without behavioral disturbance F01.50 [place] [id number] [place] [address] Sep, [place] [address] [address] Jul, [place] [id number] [place] [address] Jul, Diabetes E11.9 ; Diaper dermatitis L22 ; Candidiasis of skin and nail B37.2 ; Neuropathy G62.9 ; Status post stroke Z86.73 ; Unsteadiness on feet R26.81 and 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 [place] [id number] [place] [address] May, [place] [address] [address] May, [place] [id number] [place] [address] May, [place] [id number] [place] [address] May, Dementia with behavioral disturbance, unspecified dementia type F03.91 [place] [id number] [place] [address] 16 May, 2016 Dementia with behavioral disturbance, unspecified dementia type F03.91 ; Encounter for immunization Z23 and Diabetes E11.9 [place] [id number] [place] [address] May, [place] [id number] [place] [address] May, Neuropathy G62.9 [place] [address] [address] May, [place] [address] [address] Apr, Hypothyroidism (acquired) E03.9 [place] [address] [address] Apr, CVA (cerebral vascular accident) I63.9 ; Left hand weakness M62.81 and Neuropathy G62.9 [place] [address] [address] Apr, Hypokalemia E87.6 [place] [address] [address] Apr, Hypokalemia E87.6 [place] [address] [address] Mar, Diabetes E11.9 ; Edema, unspecified type R60.9 ; Anxiety disorder, unspecified F41.9 ; Pain in left knee M25.562 ; Other chronic pain G89.29 and Status post stroke Z86.73 [place] [address] [address] Mar, [place] [address] [address] Mar, [place] [address] [address] Mar, Neuropathy G62.9 [place] [address] [address] Feb, Anorexia R63.0 and Neuropathy G62.9 [place] [id number] Jan, Diabetes E11.9 ; Neuropathy G62.9 ; Panic attack F41.0 ; Pain in left knee M25.562 and Hypertension 401.9 [place] [address] [place] [address] Jan, Weakness R53.1 ; Fatigue, unspecified type R53.83 ; Falling episodes R29.6 and Neuropathy G62.9 [facility] [id number] [place] [address] Jan, Pain in left knee M25.562 [facility] [address] [address] Jan, [facility] [address] [address] Jan, [facility] [address] [address] Jan, [place] [address] [address] Dec, Diabetes E11.9 ; Neuropathy G62.9 and Dementia F03.90 [place] [address] [address] Dec, [facility] [address] [address] Dec, Neuropathy G62.9 ; Diabetes E11.9 ; Anxiety F41.9 and Constipation, unspecified constipation type K59.00 [place] [address] [address] Dec, [place] [address] [address] Dec, Anxiety F41.9 [facility] [id number] [place] [address] November, [place] [address] [address] November, Pain in left knee M25.562 ; Other chronic pain G89.29 ; Diabetes E11.9 and Left eye pain H57.12 [place] [address] [place] [address] November, [facility] [address] [address] November, Hearing loss, unspecified laterality H91.90 [facility] [address] [address] November, [facility] [id number] [place] [address] November, [facility] [id number] [place] [address] November, Pain in right knee M25.561 [facility] [id number] [place] [address] November, [facility] [id number] [place] [address] Oct, [facility] [id number] [place] [address] Oct, [facility] [address] [place] [address] Oct, Edema of left lower extremity R60.0 ; Diabetes E11.9 ; 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 I63.39 and Anxiety disorder, unspecified F41.9 [facility] [address] [address] Oct, Panic attack F41.0 [facility] [address] [address] 14 Oct, 2015 [facility] [address] [place] [address] Oct, CVA (cerebral vascular accident) I63.9 [facility] [address] [address] Oct, [facility] [id number] [place] [address] Oct, Diabetes E11.9 ; Hypertension I10 and Dementia F03.90 [facility] [id number] [place] [address] Sep, [facility] [id number] [place] [address] Sep, [facility] [id number] [place] [address] Sep, Diabetes E11.9 ; 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 ; Onychomycosis B35.1 and Fatigue R53.83 [place] [id number] [place] [address] Aug, [place] [id number] [place] [address] Aug, [facility] [id number] [place] [address] Jul, [facility] [id number] [place] [address] Jul, [facility] [id number] [place] [address] Jun, 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 [place] [id number] [place] [address] Jun, Anxiety disorder, unspecified F41.9 and Major depressive disorder, single episode, moderate F32.1 [facility] [address] [place] [address] Jun, [facility] [id number] [place] [address] Jun, [facility] [id number] [place] [address] May, Left knee pain M25.562 [facility] [id number] [place] [address] May, [facility] [id number] [address] May, [facility] [id number] [place] [address] May, [facility] [id number] [place] [address] May, Hypertension I10 ; Diabetes E11.9 and Depression F32.9 [facility] [id number] [place] [address] May, [facility] [id number] [place] [address] Apr, Left knee pain M25.562 ; Type 2 diabetes mellitus with complication E11.8 and Encounter for immunization Z23 [facility] [id number] [place] [address] Apr, [facility] [id number] [place] [address] Apr, [facility] [id number] [place] [address] Mar, [facility] [address] [address] Mar, Silvestre stanley 727.51 [facility] [id number] [address] Mar, [facility] [address] [address] Mar, [facility] [id number] [place] [address] Mar, [facility] [address] [address] Feb, [facility] [id number] [place] [address] Feb, [facility] [id number] [address] Feb, Hypertension 401.9 and Diabetes 250.00 [facility] [address] [address] Jan, [facility] [address] [address] Jan, Diabetes 250.00 [facility] [address] [address] Jan, [facility] [address] [place] [address] Jan, [facility] [address] [address] Dec, Diabetes 250.00 and Forgetfulness 780.99 [facility] [address] [address] Dec, [facility] [address] [address] Dec, Diabetes mellitus 250.00 [facility] [address] [address] Dec, [facility] [address] [address] Dec, [facility] [address] [address] Dec, [facility] [id number] [address] Dec, Diabetes 250.00 and Dysthymia 300.4 [facility] [id number] [address] Dec, [facility] [id number] [address] Dec, Grief 309.0 and Diabetes mellitus 250.00 [facility] [address] [id number] [place] [address] Oct, [facility] [place] [facility] [address] [id number] [place] [address] Oct, [facility] [place] [facility] [address] [id number] [place] [address] Jul, [facility] [place] [facility] [address] [id number] [place] [address] Jul, [facility] [place] [facility] [address] [id number] [place] [address] Jul, [facility] [place] [facility] [address] [id number] [place] [address] Jul, [facility] [place] [facility] [address] [facility] [id number] [place] [address] Jul, [facility] [place] [facility] [address] [id number] [place] [address] May, [facility] [place] [facility] [address] [id number] [place] [address] May, [facility] [place] [facility] [address] [facility] [id number] [place] [address] Apr, [facility] [place] [facility] [address] [id number] [place] [address] Apr, [facility] [place] [facility] [address] [id number] [place] [address] Mar, [facility] [place] [facility] [address] [id number] [place] [address] Mar, [facility] [place] [facility] [address] [id number] [place] [address] Feb, [facility] [place] [facility] [address] [id number] [place] [address] Feb, [facility] [place] [facility] [address] [id number] [place] [address] Feb, [facility] [place] [facility] [address] [id number] [place] [address] Feb, [facility] [place] [facility] [address] [id number] [place] [address] Feb, [facility] [place] [facility] [address] [id number] [place] [address] Feb, [facility] [place] [facility] [address] [id number] [place] [address] November, [facility] [place] [facility] [address] [id number] [place] [address] November, [facility] [place] [facility] [address] [id number] [place] [address] Sep, [facility] [place] [facility] [address] [id number] [place] [address] Sep, [facility] [place] [facility] [address] [id number] [place] [address] Sep, [facility] [place] [facility] [address] [id number] [place] [address] Sep, [facility] [place] [facility] [address] [facility] [id number] [place] [address] Sep, [facility] [place] [facility] [address] [id number] [place] [address] Sep, [facility] [place] [facility] [address] [id number] [place] [address] Sep, [facility] [place] [facility] [address] [id number] [place] [address] Sep, [facility] [place] [facility] [address] [id number] [place] [address] Aug, [facility] [place] [facility] [address] [id number] [place] [address] Aug, [facility] [place] [facility] [address] [id number] [place] [address] Jul, [facility] [place] [facility] [address] [id number] [place] [address] Jul, [facility] [place] [facility] [address] [id number] [place] [address] Jul, [facility] [facility] [address] [id number] [place] [address] Jul, [facility] [place] [facility] [address] [id number] [place] [address] Jun, [facility] [place] [facility] [address] [id number] [place] [address] Jun, [facility] [place] [facility] [address] [id number] [place] [address] May, [facility] [place] [facility] [address] [id number] [place] [address] May, [facility] [place] [facility] [address] [id number] [place] [address] May, [facility] [place] [facility] [address] [id number] [place] [address] May, [facility] [place] [facility] [address] [id number] [place] [address] May, [facility] [place] [facility] [address] [id number] [place] [address] May, [facility] [place] [facility] [address] [id number] [place] [address] Apr, [facility] [place] [facility] [address] [id number] [place] [address] Apr, [facility] [place] [facility] [address] [id number] [place] [address] 16 Apr, 2013 [facility] [place] [facility] [address] [id number] [place] [address] Apr, [facility] [address] [id number] [place] [address] Mar, [facility] [address] [id number] [place] [address] Mar, [facility] [address] [id number] [place] [address] Jan, [facility] [place] [facility] [address] [id number] [place] [address] Jan, [facility] [address] [id number] [place] [address] Jan, [facility] [address] [id number] [place] [address] November, [facility] [address] [id number] [place] [address] November, [facility] [place] [facility] [address] [id number] [place] [address] November, [facility] [address] [id number] [place] [address] November, [facility] [address] [id number] [place] [address] Aug, [facility] [address] [id number] [place] [address] Jul, [facility] [place] [facility] [address] [id number] [place] [address] Jul, [facility] [place] [facility] [address] [id number] [place] [address] Jul, [facility] [place] [facility] [address] [id number] [place] [address] Jun, [facility] [place] [facility] [address] [id number] [place] [address] Jun, [facility] [place] [facility] [address] [id number] [place] [address] May, [facility] [place] [facility] [address] [id number] [place] [address] May, [facility] [place] [facility] [address] [id number] [place] [address] Apr, [facility] [place] [address] [id number] [place] [address] Apr, [facility] [place] [facility] [address] [id number] [place] [address] Apr, [facility] [place] [facility] [address] [id number] [place] [address] Apr, [facility] [place] [facility] [address] [id number] [place] [address] Apr, [facility] [place] [facility] [address] [id number] [place] [address] Apr, [facility] [place] [facility] [address] [id number] [place] [address] Apr, [facility] [place] [facility] [address] [id number] [place] [address] Apr, [facility] [place] [facility] [address] [facility] [id number] [place] [address] Apr, [facility] [place] [facility] [address] [id number] [place] [address] Mar, [facility] [place] [facility] [address] [id number] [place] [address] Feb, [facility] [place] [facility] [address] [id number] [place] [address] November, [facility] [place] [facility] [address] [id number] [place] [address] November, [facility] [place] [facility] [address] [id number] [place] [address] November, [facility] [id number] [address] November, [facility] [id number] [address] Jun, [facility] [id number] [address] Jun, [facility] [id number] [address] May, [facility] [id number] [address] May, [facility] [id number] [place] [address] Apr, [facility] [id number] [address] Apr, [facility] [id number] [place] [address] May, [facility] [id number] [address] Apr, [facility] [id number] [address] Apr, [facility] [address] [address] Apr, [facility] [address] [address] Apr, IMMUNIZATIONS No Known Immunizations SOCIAL HISTORY [...] Hospitalization History Post Stroke pt went to [facility] and then [facility] 10/15/15 Hospitalization History Hypotension, Wander ateral leg weakness--Via [facility] 01/15/16 Hospitalization History hypertension/chest pain 03/2017
--- OUTSIDE RECORDS SUMMARY | 2023-03-21 11:27 | XMS REPORT ---
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 01636376 Problem Bilateral hearing loss, unspecified hearing loss type H91.93 Active 12355294 Problem 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 Active 28499820 1 Problem Left-sided muscle weakness M62.81 Active 090610326 Problem SNHL (sensory-neural hearing loss), 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 Active 087579775 Problem Panic attack F41.0 Active 372518229 Problem Other chronic pain G89.29 Active 04046 001 Problem History of cerebrovascular accident with hemiparesis or hemiplegia Z86.73 Active 839554590 Problem Hypertension I10 Active 24352557 Problem Dementia with behavioral disturbance, unspecified dementia type F03.91 Active 6980350189432 Problem 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 Active 216823759794 Problem Anxiety F41.9 Active 62820884 Problem Vascular dementia without behavioral disturbance F01.50 Active 184694934 Problem Hypothyroidism (acquired) E03.9 Active 929194535 Problem 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 Active 34857256 ALLERGIES Substance Reaction Event Type Date Status Victoza stomach upset Drug Allergy Apr, Active ENCOUNTERS Encounter Location Date Diagnosis [facility] [address] [facility] [id number] [address] Feb, [facility] [address] [place] [id number] [place] [address] Feb, [place] [address] [address] Dec, Anxiety F41.9 and 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 [place] [address] [address] November, [place] [address] [address] November, Chronic cough R05 and Cardiomegaly I51.7 [place] [address] [address] Oct, Medicare annual wellness visit, initial Z00.00 [...] seizures R56.1 and Encounter for immunization Z23 [place] [address] [place] [id number] [place] [address] Sep, [place] [address] [address] Jul, [place] [address] [place] [id number] [place] [address] Jul, [place] [address] [address] Jun, Anxiety F41.9 and 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 [place] [address] [place] [id number] [place] [address] Jun, Bronchitis J40 and Bilateral hearing loss, unspecified hearing loss type H91.93 [facility] [address] [place] [id number] [place] [address] 14 Jun, 2017 [facility] [address] [address] [id number] [place] [address] Apr, [facility] [address] [place] [id number] [place] [address] Apr, Encounter for immunization Z23 and Left breast mass N63.20 [facility] [address] [id number] [place] [address] 16 Apr, 2017 [facility] [address] [id number] [place] [address] Mar, CVA (cerebral vascular accident) I63.9 ; Hypertension I10 ; 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 ; Type 2 diabetes mellitus with diabetic neuropathy, 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 and Left breast mass N63 [place] [address] [id number] [place] [address] Mar, Mild episode of recurrent major depressive disorder F33.0 and Anxiety F41.9 [place] [address] [place] [id number] [place] [address] Mar, Breast mass, left N63 [facility] [id number] [place] [address] Mar, Breast mass, left N63 [facility] [address] [place] [id number] [place] [address] Feb, [facility] [address] [place] [id number] [place] [address] Feb, [facility] [address] [address] [id number] [place] [address] Feb, [facility] [address] [address] [id number] [place] [address] Feb, [facility] [address] [id number] [place] [address] Feb, Onychomycosis B35.1 and Type 2 diabetes mellitus with complication E11.8 [place] [address] [id number] [place] [address] Jan, Mild episode of recurrent major depressive disorder F33.0 and Anxiety F41.9 [place] [address] [place] [id number] [place] [address] Jan, [place] [address] [address] Dec, Onychomycosis due to dermatophyte B35.1 ; 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 ; Type 2 diabetes mellitus with diabetic neuropathy, 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 ; Falls frequently R29.6 ; Neuropathy G62.9 ; Dementia with behavioral disturbance, unspecified dementia type F03.91 ; Hypothyroidism (acquired) E03.9 and Left hand pain M79.642 [place] [address] [address] Dec, [place] [address] [place] [id number] [place] [address] Dec, Hypothyroidism (acquired) E03.9 [place] [address] [place] [id number] [place] [address] Dec, 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 [place] [address] [place] [id number] [place] [address] November, Hypothyroidism (acquired) E03.9 [place] [address] [place] [id number] [place] [address] Oct, [place] [address] [place] [id number] [place] [address] Oct, 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 [place] [address] [place] [id number] [place] [address] Oct, [place] [address] [address] Oct, Dysuria R30.0 ; 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 ; Bilateral hearing loss, unspecified hearing loss type H91.93 and 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 [facility] [address] [place] [id number] [place] [address] Sep, [facility] [address] [place] [id number] [place] [address] Sep, Open wound of right great toe, initial encounter S91.101A [place] [address] [place] [id number] [place] [address] Sep, Breast mass, left N63 ; Non-insulin dependent type 2 diabetes mellitus E11.9 and Vascular dementia without behavioral disturbance F01.50 [place] [address] [place] [id number] [place] [address] Sep, [place] [address] [place] [id number] [place] [address] Jul, [place] [address] [place] [id number] [place] [address] Jul, Diabetes E11.9 ; Diaper dermatitis L22 ; Candidiasis of skin and nail B37.2 ; Neuropathy G62.9 ; Status post stroke Z86.73 ; Unsteadiness on feet R26.81 and 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 [place] [address] [place] [id number] [place] [address] May, [place] [address] [place] [id number] [place] [address] May, [place] [address] [place] [id number] [place] [address] May, [place] [address] [place] [id number] [place] [address] May, Dementia with behavioral disturbance, unspecified dementia type F03.91 [place] [address] [place] [address] 16 May, 2016 Dementia with behavioral disturbance, unspecified dementia type F03.91 ; Encounter for immunization Z23 and Diabetes E11.9 [place] [address] [place] [id number] [place] [address] May, [place] [address] [id number] [place] [address] May, Neuropathy G62.9 [place] [address] [address] May, [place] [address] [address] Apr, Hypothyroidism (acquired) E03.9 [place] [address] [place] [id number] [place] [address] Apr, CVA (cerebral vascular accident) I63.9 ; Left hand weakness M62.81 and Neuropathy G62.9 [place] [address] [place] [id number] [place] [address] Apr, Hypokalemia E87.6 [place] [address] [id number] [place] [address] Apr, Hypokalemia E87.6 [place] [address] [id number] [place] [address] Mar, Diabetes E11.9 ; Edema, unspecified type R60.9 ; Anxiety disorder, unspecified F41.9 ; Pain in left knee M25.562 ; Other chronic pain G89.29 and Status post stroke Z86.73 [place] [address] [place] [id number] [place] [address] 15 Mar, 2016 [place] [address] [place] [id number] [place] [address] 15 Mar, 2016 [place] [address] [place] [id number] [place] [address] Mar, Neuropathy G62.9 [facility] [id number] [place] [address] Feb, Anorexia R63.0 and Neuropathy G62.9 [facility] [address] [address] Jan, Diabetes E11.9 ; Neuropathy G62.9 ; Panic attack F41.0 ; Pain in left knee M25.562 and Hypertension 401.9 [facility] [address] [address] Jan, Weakness R53.1 ; Fatigue, unspecified type R53.83 ; Falling episodes R29.6 and Neuropathy G62.9 [place] [address] [address] Jan, Pain in left knee M25.562 [place] [address] [address] Jan, [place] [address] [address] Jan, [place] [address] [address] Jan, [place] [address] [address] Dec, Diabetes E11.9 ; Neuropathy G62.9 and Dementia F03.90 [facility] [address] [address] Dec, [facility] [address] [address] Dec, Neuropathy G62.9 ; Diabetes E11.9 ; Anxiety F41.9 and Constipation, unspecified constipation type K59.00 [facility] [address] [address] Dec, [facility] [address] [address] Dec, Anxiety F41.9 [facility] [address] [id number] [place] [address] November, [facility] [id number] [place] [address] November, Pain in left knee M25.562 ; Other chronic pain G89.29 ; Diabetes E11.9 and Left eye pain H57.12 [facility] [address] [place] [id number] [place] [address] November, [facility] [address] [address] [id number] [place] [address] November, Hearing loss, unspecified laterality H91.90 [facility] [address] [place] [id number] [place] [address] November, [facility] [address] [id number] [place] [address] November, [facility] [id number] [place] [address] November, Pain in right knee M25.561 [facility] [address] [id number] [place] [address] November, [facility] [id number] [place] [address] Oct, [facility] [address] [place] [id number] [place] [address] Oct, [facility] [id number] [place] [address] Oct, Edema of left lower extremity R60.0 ; Diabetes E11.9 ; 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 I63.39 and Anxiety disorder, unspecified F41.9 [facility] [address] [address] Oct, Panic attack F41.0 [place] [address] [place] [id number] [place] [address] 14 Oct, 2015 [place] [address] [address] [place] [address] Oct, CVA (cerebral vascular accident) I63.9 [facility] [address] [place] [id number] [place] [address] Oct, [place] [address] [address] Oct, Diabetes E11.9 ; Hypertension I10 and Dementia F03.90 [place] [address] [address] 30 Sep, 2015 [place] [address] [place] [id number] [place] [address] Sep, [place] [address] [place] [address] [place] [address] Sep, Diabetes E11.9 ; 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 ; Onychomycosis B35.1 and Fatigue R53.83 [place] [address] [place] [id number] [place] [address] Aug, [place] [address] [place] [id number] [place] [address] Aug, [place] [address] [id number] [place] [address] Jul, [place] [address] [place] [id number] [place] [address] Jul, [place] [address] [place] [id number] [place] [address] Jun, 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 [place] [address] [place] [address] [place] [address] Jun, Anxiety disorder, unspecified F41.9 and Major depressive disorder, single episode, moderate F32.1 [facility] [id number] [place] [address] Jun, [facility] [address] [address] Jun, [facility] [id number] [place] [address] May, Left knee pain M25.562 [facility] [address] [address] May, [facility] [id number] [place] [address] May, [facility] [address] [address] May, [facility] [address] [address] May, Hypertension I10 ; Diabetes E11.9 and Depression F32.9 [facility] [id number] [place] [address] May, [facility] [address] [address] Apr, Left knee pain M25.562 ; Type 2 diabetes mellitus with complication E11.8 and Encounter for immunization Z23 [facility] [id number] [place] [address] Apr, [facility] [id number] [place] [address] Apr, [facility] [id number] [place] [address] Mar, [facility] [id number] [place] [address] Mar, Silvestre stanley 727.51 [facility] [address] [address] Mar, [facility] [id number] [address] Mar, [facility] [address], [place] [address] Mar, [facility] [address], [place] [address] Feb, [facility] [id number] [place] [address] Feb, [facility] [address], [place] [address] Feb, Hypertension 401.9 and Diabetes 250.00 [facility] [address], [place] [address] Jan, [facility] [address] [place] [address] Jan, Diabetes 250.00 [facility] [address], [place] [address] Jan, [facility] [address] [address] Jan, [facility] [id number] [address] Dec, Diabetes 250.00 and Forgetfulness 780.99 [facility] [address], [place] [address] Dec, [facility] [id number] [address] Dec, Diabetes mellitus 250.00 [facility] [address], [place] [address] Dec, [facility] [address] [address] Dec, [facility] [address] [id number] [place] [address] 17 Dec, 2014 [facility] [address] [facility] [id number] [address] 16 Dec, 2014 Diabetes 250.00 and Dysthymia 300.4 [facility] [address] [id number] [address] 15 Dec, 2014 [facility] [address] [facility] [id number] [place] [address] 09 Dec, 2014 Grief 309.0 and Diabetes mellitus 250.00 [facility] [address] [id number] [address] Oct, [facility] [address] [facility] [id number] [place] [address] Oct, [facility] [id number] [address] Jul, [facility] [address] [facility] [id number] [address] Jul, [facility] [id number] [address] Jul, [facility] [id number] [address] Jul, [facility] [id number] [address] Jul, [facility] [address] [facility] [id number] [address] May, [facility] [address] [facility] [id number], [place] [address] May, [facility] [address] [facility] [id number], [place] [address] Apr, [facility] [address] [facility] [id number] [address] Apr, [facility] [id number] [address] Mar, [facility] [place] [facility] [address] [id number] [place] [address] Mar, [facility] [place] [facility] [address] [id number] [place] [address] Feb, [facility] [place] [facility] [address] [id number] [place] [address] Feb, [facility] [place] [facility] [address] [id number] [place] [address] Feb, [facility] [place] [facility] [address] [id number] [place] [address] Feb, [facility] [place] [facility] [address] [id number] [place] [address] Feb, [facility] [place] [facility] [address] [id number] [place] [address] Feb, [facility] [place] [facility] [address] [id number] [place] [address] November, [facility] [place] [facility] [address] [id number] [place] [address] November, [facility] [place] [facility] [address] [id number] [place] [address] Sep, [facility] [place] [facility] [address] [id number] [place] [address] Sep, [facility] [place] [facility] [address] [id number] [place] [address] Sep, [facility] [place] [facility] [address] [id number] [place] [address] Sep, [facility] [place] [facility] [address] [id number] [place] [address] Sep, [facility] [place] [facility] [address] [id number] [place] [address] Sep, [facility] [place] [facility] [address] [id number] [place] [address] Sep, [facility] [place] [facility] [address] [id number] [place] [address] Sep, [facility] [place] [facility] [address] [id number] [place] [address] Aug, [facility] [place] [facility] [address] [id number] [place] [address] Aug, [facility] [place] [facility] [address] [id number] [place] [address] Jul, [facility] [place] [facility] [address] [id number] [place] [address] Jul, [facility] [place] [facility] [address] [id number] [place] [address] Jul, [facility] [place] [facility] [address] [id number] [place] [address] Jul, [facility] [place] [facility] [address] [id number] [place] [address] Jun, [facility] [place] [facility] [address] [id number] [place] [address] Jun, [facility] [place] [facility] [address] [id number] [place] [address] May, [facility] [place] [facility] [address] [id number] [place] [address] May, [facility] [place] [facility] [address] [id number] [place] [address] May, [facility] [place] [facility] [address] [id number] [place] [address] May, [facility] [place] [facility] [address] [id number] [place] [address] May, [facility] [place] [facility] [address] [id number] [place] [address] May, [facility] [address] [id number] [place] [address] 17 Apr, 2013 [facility] [place] [facility] [address] [id number] [place] [address] 17 Apr, 2013 [facility] [address] [id number] [place] [address] Apr, [facility] [place] [facility] [address] [id number] [place] [address] Apr, [facility] [address] [id number] [place] [address] Mar, [facility] [place] [facility] [address] [id number] [place] [address] Mar, [facility] [address] [id number] [place] [address] Jan, [facility] [place] [facility] [address] [id number] [place] [address] Jan, [facility] [place] [facility] [address] [id number] [place] [address] Jan, [facility] [place] [facility] [address] [id number] [place] [address] November, [facility] [place] [facility] [address] [id number] [address] November, [facility] [place] [facility] [address] [id number], [place] [address] November, [facility] [place] [facility] [address] [id number] [place] [address] November, [facility] [place] [facility] [address] [id number], [place] [address] Aug, [facility] [place] [facility] [address] [id number], [place] [address] Jul, [facility] [place] [facility] [address] [id number] [place] [address] Jul, [facility] [place] [facility] [address] [id number] [place] [address] Jul, [facility] [place] [facility] [address] [id number] [place] [address] Jun, [facility] [place] [facility] [address] [id number] [place] [address] Jun, [facility] [place] [facility] [address] [id number] [place] [address] May, [facility] [place] [facility] [address] [id number] [place] [address] May, [facility] [place] [facility] [address] [id number] [place] [address] Apr, [facility] [place] [facility] [address] [id number] [place] [address] Apr, [facility] [place] [facility] [address] [id number] [place] [address] Apr, [facility] [place] [facility] [address] [id number] [place] [address] Apr, [facility] [place] [facility] [address] [facility] [id number] [place] [address] Apr, [facility] [place] [facility] [address] [id number] [place] [address] Apr, [facility] [place] [facility] [address] [id number] [place] [address] Apr, [facility] [place] [facility] [address] [id number] [place] [address] Apr, [facility] [place] [facility] [address] [facility] [id number] [place] [address] Apr, [facility] [place] [facility] [address] [id number] [place] [address] Mar, [facility] [place] [facility] [address] [id number] [place] [address] Feb, [facility] [place] [facility] [address] [id number] [place] [address] November, [facility] [address] [id number] [place] [address] November, [facility] [address] [id number] [place] [address] November, [facility] [address] [id number] [place] [address] November, [facility] [address] [id number] [place] [address] Jun, [facility] [address] [id number] [place] [address] Jun, [facility] [address] [id number] [place] [address] May, [facility] [address] [id number] [place] [address] May, [facility] [address] [id number] [place] [address] Apr, [facility] [address] [id number] [place] [address] Apr, [facility] [place] [facility] [address] [id number] [address] May, [facility] [place] [facility] [address] [id number] [place] [address] Apr, [facility] [place] [facility] [address] [id number] [place] [address] Apr, [facility] [place] [facility] [address] [id number] [place] [address] Apr, [facility] [place] [facility] [address] [id number] [place] [address] Apr, IMMUNIZATIONS Vaccine Route Administration Date Status FLUZONE HIGH DOSE (65 AND UP) 2016 IM Intramuscular Oc 2016 Administered SOCIAL HISTORY Never Assessed REASON FOR VISIT breast f/u -- jacquelin becerra PLAN OF CARE Activity Details VITAL SIGNS Height 62 in 2017-05-04 Weight 162 lbs 2017-05-04 Temperature 97.8 degrees Fahrenheit BMI 29.63 kg/m2 2017-05-04 Blood pressure systolic 118 mmHg Blood pressure diastolic 70 mmHg 2017-04 MEDICATIONS Medication Instructions Dosage Frequency Start Date End Date Duration Status Tylenol 325 MG Orally every 6 hrs 2 tablet as needed 6h Aug, Active Gabapentin 300 MG Orally 3 times a day TAKE ONE CAPSULE BY MOUTH THREE TIMES DAILY 8h Active Aggrenox 25-200 MG Orally Twice a day 1 capsule 12h 90 days Active Test strips Test Strips ICD10- E11.9 2 times a day test blood sugar 12h 14 Oct, 2015 Active Atorvastatin Calcium 40 mg Orally Once a day 1 tablet at bedtime 24h 90 Active Bydureon 2 MG Subcutaneous once weekly Inject 2mg 28 Active Norvasc 10 MG Orally Once a day 1 tablet 24h Active Blood Glucose Monitor System N/A test blood sugar 24h Jul, Active Levothyroxine Sodium 50 MCG TAKE ONE TABLET BY MOUTH ON AN EMPTY STOMACH IN THE MORNING ONCE DAILY FOR 30 DAYS 30 Active Levetiracetam 500 MG Orally Twice a day 1 tablet 12h 90 Active Aricept 5 mg TAKE ONE TABLET BY MOUTH ONCE DAILY AT BEDTIME 30 Active MetFORMIN HCl ER 750 MG Orally Once a day 1 tablet with meals 24h Feb, Active Wheelchair - as directed Jan, Active Carvedilol 3.125 MG Orally 2 times a day 1 tablet 12h 30 Active Sertraline HCl 100 MG Orally Once a day 1.5 tab 24h 90 days Active RESULTS No Results PROCEDURES Procedure Date Ordered Result Body Site FLUZONE HIGH DOSE 65 AND UP 2015May 04, 2017 SINGLE IMMUNIZATION ADMIN May 04, 2017 FORMERLY [facility], [facility]1983 VISIT ESTABLISHED PATIENT May 04, 2017 INSTRUCTIONS MEDICATIONS ADMINISTERED No Known Medications [...] Post Stroke pt went to [facility] and then [facility] 10/15/15 Hospitalization History Hypotension, Wander ateral leg weakness--Via [facility] 01/15/16 Hospitalization History hypertension/chest pain 03/2017
--- OUTSIDE RECORDS SUMMARY | 2023-03-21 11:27 | XMS REPORT ---
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 36201618 Problem Bilateral hearing loss, unspecified hearing loss type H91.93 Active 68981113 Problem 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 Active 40601973 1 Problem Left-sided muscle weakness M62.81 Active 281397686 Problem SNHL (sensory-neural hearing loss), 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 Active 302161308 Problem Panic attack F41.0 Active 939925358 Problem Other chronic pain G89.29 Active 25823 001 Problem History of cerebrovascular accident with hemiparesis or hemiplegia Z86.73 Active 723961645 Problem Hypertension I10 Active 37695657 Problem Dementia with behavioral disturbance, unspecified dementia type F03.91 Active 4775529597071 Problem 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 Active 344120940417 Problem Anxiety F41.9 Active 57226554 Problem Vascular dementia without behavioral disturbance F01.50 Active 884650176 Problem Hypothyroidism (acquired) E03.9 Active 873294894 Problem 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 Active 13099320 ALLERGIES Substance Reaction Event Type Date Status Victoza stomach upset Drug Allergy November, Active ENCOUNTERS Encounter Location Date Diagnosis [facility] [address] [facility] [id number] [address] Feb, [facility] [id number] [place] [address] Feb, [facility] [id number] [place] [address] Jan, [facility] [id number] [place] [address] Dec, Anxiety F41.9 and 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 [facility] [address] [address] November, [facility] [id number] [place] [address] November, Chronic cough R05 and Cardiomegaly I51.7 [facility] [id number] [place] [address] Oct, Medicare annual wellness visit, initial Z00.00 [...] seizures R56.1 and Encounter for immunization Z23 [facility] [id number] [place] [address] Sep, [facility] [id number] [place] [address] Jul, [facility] [id number] [place] [address] Jul, [facility] [id number] [place] [address] Jun, Anxiety F41.9 and 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 [facility] [id number] [place] [address] Jun, Bronchitis J40 and Bilateral hearing loss, unspecified hearing loss type H91.93 [facility] [id number] [place] [address] Jun, [facility] [id number] [place] [address] Apr, [facility] [address] [address] Apr, Encounter for immunization Z23 and Left breast mass N63.20 [facility] [id number] [place] [address] 16 Apr, 2017 [facility] [address] [address] Mar, CVA (cerebral vascular accident) I63.9 ; Hypertension I10 ; 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 ; Type 2 diabetes mellitus with diabetic neuropathy, 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 and Left breast mass N63 [facility] [id number] [place] [address] Mar, Mild episode of recurrent major depressive disorder F33.0 and Anxiety F41.9 [facility] [id number] [place] [address] Mar, Breast mass, left N63 [facility] [id number] [place] [address] Mar, Breast mass, left N63 [facility] [id number] [place] [address] Feb, [place] [address] [address] Feb, [facility] [id number] [place] [address] Feb, [facility] [id number] [place] [address] Feb, [facility] [id number] [place] [address] Feb, Onychomycosis B35.1 and Type 2 diabetes mellitus with complication E11.8 [facility] [id number] [place] [address] Jan, Mild episode of recurrent major depressive disorder F33.0 and Anxiety F41.9 [facility] [id number] [place] [address] Jan, [facility] [id number] [place] [address] Dec, Onychomycosis due to dermatophyte B35.1 ; 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 ; Type 2 diabetes mellitus with diabetic neuropathy, 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 ; Falls frequently R29.6 ; Neuropathy G62.9 ; Dementia with behavioral disturbance, unspecified dementia type F03.91 ; Hypothyroidism (acquired) E03.9 and Left hand pain M79.642 [facility] [id number] [place] [address] Dec, [facility] [id number] [place] [address] Dec, Hypothyroidism (acquired) E03.9 [facility] [id number] [place] [address] Dec, 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 [facility] [address] [address] November, Hypothyroidism (acquired) E03.9 [facility] [id number] [place] [address] Oct, [facility] [id number] [place] [address] Oct, 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 [facility] [id number] [place] [address] Oct, [facility] [id number] [place] [address] Oct, Dysuria R30.0 ; 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 ; Bilateral hearing loss, unspecified hearing loss type H91.93 and 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 [facility] [id number] [place] [address] Sep, [facility] [id number] [place] [address] Sep, Open wound of right great toe, initial encounter S91.101A [place] [address] [address] Sep, Breast mass, left N63 ; Non-insulin dependent type 2 diabetes mellitus E11.9 and Vascular dementia without behavioral disturbance F01.50 [facility] [id number] [place] [address] Sep, [facility] [id number] [place] [address] Jul, [facility] [id number] [place] [address] Jul, Diabetes E11.9 ; Diaper dermatitis L22 ; Candidiasis of skin and nail B37.2 ; Neuropathy G62.9 ; Status post stroke Z86.73 ; Unsteadiness on feet R26.81 and 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 [facility] [id number] [place] [address] May, [facility] [address] [address] May, [facility] [id number] [place] [address] May, [facility] [id number] [place] [address] May, Dementia with behavioral disturbance, unspecified dementia type F03.91 [facility] [id number] [place] [address] May, Dementia with behavioral disturbance, unspecified dementia type F03.91 ; Encounter for immunization Z23 and Diabetes E11.9 [facility] [id number] [place] [address] May, [place] [place] [address] [address] May, Neuropathy G62.9 [place] [address] [address] May, [facility] [address] [address] Apr, Hypothyroidism (acquired) E03.9 [facility] [address] [address] Apr, CVA (cerebral vascular accident) I63.9 ; Left hand weakness M62.81 and Neuropathy G62.9 [facility] [id number] [place] [address] Apr, Hypokalemia E87.6 [facility] [id number] [place] [address] Apr, Hypokalemia E87.6 [facility] [id number] [place] [address] Mar, Diabetes E11.9 ; Edema, unspecified type R60.9 ; Anxiety disorder, unspecified F41.9 ; Pain in left knee M25.562 ; Other chronic pain G89.29 and Status post stroke Z86.73 [facility] [id number] [place] [address] Mar, [facility] [id number] [place] [address] Mar, [facility] [id number] [place] [address] Mar, Neuropathy G62.9 [facility] [address] [address] Feb, Anorexia R63.0 and Neuropathy G62.9 [facility] [address] [address] Jan, Diabetes E11.9 ; Neuropathy G62.9 ; Panic attack F41.0 ; Pain in left knee M25.562 and Hypertension 401.9 [place] [address] [address] Jan, Weakness R53.1 ; Fatigue, unspecified type R53.83 ; Falling episodes R29.6 and Neuropathy G62.9 [place] [address] [address] Jan, Pain in left knee M25.562 [place] [address] [address] Jan, [facility] [address] [address] Jan, [facility] [id number] [place] [address] Jan, [facility] [address] [address] Dec, Diabetes E11.9 ; Neuropathy G62.9 and Dementia F03.90 [facility] [address] [address] Dec, [place] [address] [address] Dec, Neuropathy G62.9 ; Diabetes E11.9 ; Anxiety F41.9 and Constipation, unspecified constipation type K59.00 [facility] [address] [address] Dec, [facility] [address] [address] Dec, Anxiety F41.9 [facility] [id number] [place] [address] November, [facility] [id number] [place] [address] November, Pain in left knee M25.562 ; Other chronic pain G89.29 ; Diabetes E11.9 and Left eye pain H57.12 [facility] [id number] [place] [address] November, [facility] [id number] [place] [address] November, Hearing loss, unspecified laterality H91.90 [facility] [id number] [place] [address] November, [facility] [id number] [place] [address] November, [facility] [id number] [place] [address] November, Pain in right knee M25.561 [facility] [id number] [place] [address] November, [facility] [id number] [place] [address] Oct, [facility] [address] [place] [address] Oct, [facility] [id number] [place] [address] Oct, Edema of left lower extremity R60.0 ; Diabetes E11.9 ; 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 I63.39 and Anxiety disorder, unspecified F41.9 [facility] [id number] [place] [address] 14 Oct, 2015 Panic attack F41.0 [facility] [id number] [place] [address] 14 Oct, 2015 [facility] [id number] [place] [address] 13 Oct, 2015 CVA (cerebral vascular accident) I63.9 [facility] [id number] [place] [address] 13 Oct, 2015 [facility] [id number] [place] [address] 04 Oct, 2015 Diabetes E11.9 ; Hypertension I10 and Dementia F03.90 [facility] [id number] [place] [address] 30 Sep, 2015 [facility] [id number] [place] [address] Sep, [facility] [id number] [place] [address] Sep, Diabetes E11.9 ; 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 ; Onychomycosis B35.1 and Fatigue R53.83 [facility] [place] [address] [place] [address] Aug, [facility] [id number] [place] [address] Aug, [facility] [id number] [place] [address] Jul, [facility] [id number] [place] [address] Jul, [facility] [id number] [place] [address] Jun, 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 [facility] [id number] [place] [address] Jun, Anxiety disorder, unspecified F41.9 and Major depressive disorder, single episode, moderate F32.1 [facility] [id number] [place] [address] Jun, [facility] [id number] [place] [address] Jun, [facility] [id number] [place] [address] May, Left knee pain M25.562 [facility] [id number] [place] [address] May, [facility] [id number] [place] [address] May, [facility] [id number] [place] [address] May, [facility] [id number] [place] [address] May, Hypertension I10 ; Diabetes E11.9 and Depression F32.9 [facility] [id number] [place] [address] May, [facility] [id number] [place] [address] Apr, Left knee pain M25.562 ; Type 2 diabetes mellitus with complication E11.8 and Encounter for immunization Z23 [facility] [id number] [place] [address] Apr, [facility] [id number] [place] [address] Apr, [facility] [id number] [place] [address] Mar, [facility] [id number] [place] [address] Mar, Silvestre stanley 727.51 [facility] [address] [address] Mar, [facility] [address] [address] Mar, [facility] [address], [place] [address] Mar, [facility] [id number] [place] [address] Feb, [facility] [address], [place] [address] Feb, [facility] [address] [place] [address] Feb, Hypertension 401.9 and Diabetes 250.00 [facility] [address] [address] Jan, [facility] [address] [address] Jan, Diabetes 250.00 [facility] [address], [place] [address] Jan, [facility] [address] [address] Jan, [facility] [id number] [address] Dec, Diabetes 250.00 and Forgetfulness 780.99 [facility] [id number] [address] Dec, [facility] [address] [address] Dec, Diabetes mellitus 250.00 [facility] [address], [place] [address] Dec, [facility] [address] [place] [address] Dec, [facility] [address] [address] Dec, [facility] [address] [address] Dec, Diabetes 250.00 and Dysthymia 300.4 [facility] [id number] [place] [address] Dec, [facility] [address] [place] [address] 09 Dec, 2014 Grief 309.0 and Diabetes mellitus 250.00 [facility] [id number] [place] [address] Oct, [facility] [address] [place] [address] Oct, [facility] [address] [place] [address] Jul, [facility] [address] [address] Jul, [facility] [address], [place] [address] Jul, [facility] [address], [place] [address] Jul, [facility] [address], [place] [address] Jul, [facility] [id number] [address] May, [facility] [address], [place] [address] May, [facility] [id number] [address] Apr, [facility] [address], [place] [address] Apr, [facility] [place] [facility] [address] [id number] [place] [address] Mar, [facility] [place] [facility] [address] [id number] [place] [address] Mar, [facility] [place] [facility] [address] [id number] [place] [address] Feb, [facility] [place] [facility] [address] [id number] [place] [address] Feb, [facility] [place] [facility] [address] [id number] [place] [address] Feb, [facility] [place] [facility] [address] [id number] [place] [address] Feb, [facility] [place] [facility] [address] [id number] [place] [address] Feb, [facility] [place] [facility] [address] [id number] [place] [address] Feb, [facility] [place] [facility] [address] [id number] [place] [address] November, [facility] [place] [facility] [address] [id number] [place] [address] November, [facility] [place] [facility] [address] [id number] [place] [address] Sep, [facility] [place] [facility] [address] [id number] [place] [address] Sep, [facility] [place] [facility] [address] [id number] [place] [address] Sep, [facility] [place] [facility] [address] [id number] [place] [address] Sep, [facility] [place] [facility] [address] [id number] [place] [address] Sep, [facility] [place] [facility] [address] [id number] [place] [address] 14 Sep, 2013 [facility] [place] [facility] [address] [id number] [place] [address] Sep, [facility] [place] [facility] [address] [id number] [place] [address] Sep, [facility] [place] [facility] [address] [id number] [place] [address] Aug, [facility] [place] [facility] [address] [id number] [place] [address] Aug, [facility] [place] [facility] [address] [id number] [place] [address] Jul, [facility] [place] [facility] [address] [id number] [place] [address] Jul, [facility] [place] [facility] [address] [id number] [place] [address] Jul, [facility] [place] [facility] [address] [id number] [place] [address] Jul, [facility] [place] [facility] [address] [id number] [place] [address] Jun, [facility] [place] [facility] [address] [id number] [place] [address] Jun, [facility] [place] [facility] [address] [id number] [place] [address] May, [facility] [place] [facility] [address] [id number] [place] [address] May, [facility] [place] [facility] [address] [id number] [place] [address] May, [facility] [place] [facility] [address] [id number] [place] [address] May, [facility] [place] [facility] [address] [id number] [place] [address] May, [facility] [address] [id number] [place] [address] May, [facility] [place] [facility] [address] [id number] [place] [address] Apr, [facility] [place] [facility] [address] [id number] [place] [address] Apr, [facility] [place] [facility] [address] [id number] [place] [address] Apr, [facility] [place] [facility] [address] [id number] [place] [address] Apr, [facility] [place] [facility] [address] [id number] [place] [address] Mar, [facility] [place] [facility] [address] [id number] [place] [address] Mar, [facility] [place] [facility] [address] [id number], [place] [address] Jan, [facility] [place] [facility] [address] [id number] [place] [address] Jan, [facility] [place] [facility] [address] [id number], [place] [address] Jan, [facility] [place] [facility] [address] [id number], [place] [address] November, [facility] [place] [facility] [address] [id number], [place] [address] November, [facility] [place] [facility] [address] [id number] [place] [address] November, [facility] [place] [facility] [address] [id number], [place] [address] November, [facility] [place] [facility] [address] [id number], [place] [address] Aug, [facility] [place] [facility] [address] [id number] [place] [address] Jul, [facility] [place] [facility] [address] [id number] [place] [address] Jul, [facility] [place] [facility] [address] [id number] [place] [address] Jul, [facility] [place] [facility] [address] [id number] [place] [address] Jun, [facility] [place] [facility] [address] [id number] [place] [address] Jun, [facility] [place] [facility] [address] [id number] [place] [address] May, [facility] [place] [facility] [address] [id number] [place] [address] May, [facility] [place] [facility] [address] [id number] [place] [address] Apr, [facility] [place] [facility] [address] [id number] [place] [address] Apr, [facility] [place] [facility] [address] [id number] [place] [address] Apr, [facility] [place] [facility] [address] [facility] [id number] [place] [address] Apr, [facility] [place] [facility] [address] [id number] [place] [address] Apr, [facility] [place] [facility] [address] [id number] [place] [address] Apr, [facility] [place] [facility] [address] [id number] [place] [address] Apr, [facility] [place] [facility] [address] [facility] [id number] [place] [address] Apr, [facility] [place] [facility] [address] [id number] [place] [address] Apr, [facility] [place] [facility] [address] [id number] [place] [address] Mar, [facility] [place] [facility] [address] [id number] [place] [address] Feb, [facility] [place] [facility] [address] [id number] [place] [address] November, [facility] [place] [facility] [address] [id number] [place] [address], [place] [address] November, [facility] [address] [id number] [place] [id number] November, [facility] [place] [facility] [address] [id number] [place] [address] November, [facility] [address] [id number] [place] [address] Jun, [facility] [address] [id number] [place] [address] Jun, [facility] [place] [facility] [address] [id number] [place] [address] May, [facility] [place] [facility] [address] [id number] [place] [address] May, [facility] [place] [facility] [address] [id number] [place] [address] Apr, [facility] [place] [facility] [address] [id number] [place] [address] Apr, [facility] [place] [facility] [address] [id number] [place] [address] May, [facility] [place] [facility] [address] [id number] [place] [address] Apr, [facility] [place] [facility] [address] [id number] [place] [address] Apr, [facility] [place] [facility] [address] [id number] [place] [address] Apr, [facility] [address] [facility] [id number] [place] [address] Apr, IMMUNIZATIONS No Known Immunizations SOCIAL HISTORY Never Assessed REASON FOR VISIT Cough and chest congestion for the past month. -CAMRYN Gonzalez PLAN OF CARE Activity Details VITAL SIGNS Height 62 in 2017-11-10 Weight 171 lbs 2017-11-10 Temperature 97.7 degrees Fahrenheit Heart Rate 70 bpm 2017-11-10 Respiratory Rate 18 2017-11-10 Oximetry 96 % 2017-11-10 BMI 31.27 kg/m2 2017-11-10 Blood pressure systolic 124 mmHg Blood pressure diastolic 70 mmHg 2017-11 MEDICATIONS Medication Instructions Dosage Frequency Start Date End Date Duration Status Norvasc 10 MG Orally Once a day 1 tablet 24h Active BusPIRone HCl 5 MG TAKE ONE TABLET BY MOUTH TWICE DAILY 30 Active Aricept 5 MG TAKE ONE TABLET BY MOUTH ONCE DAILY AT BEDTIME 30 Active Bydureon 2 MG Subcutaneous once weekly Inject 2mg 28 Active Gabapentin 300 MG TAKE ONE CAPSULE BY MOUTH THREE TIMES DAILY 30 Active Test strips Test Strips ICD10- E11.9 2 times a day test blood sugar 12h Oct, Active Sertraline HCl 100 MG TAKE ONE AND ONE-HALF TABLETS BY MOUTH ONCE DAILY. 90 Active Carvedilol 3.125 MG TAKE ONE TABLET BY MOUTH TWICE DAILY 30 Active Levothyroxine Sodium 50 MCG TAKE ONE TABLET BY MOUTH ONCE DAILY IN THE MORNING ON AN EMPTY STOMACH 30 Active Levetiracetam 500 MG Orally Twice a day 1 tablet 12h 90 Active Tylenol 325 MG Orally every 6 hrs 2 tablet as needed 6h 25 Aug, 2015 Active MetFORMIN HCl ER 750 MG TAKE ONE TABLET BY MOUTH ONCE DAILY WITH A MEAL 90 Active Atorvastatin Calcium 40 MG TAKE ONE TABLET BY MOUTH ONCE DAILY AT BEDTIME 90 Active Wheelchair - as directed Jan, Active Blood Glucose Monitor System N/A test blood sugar 24h Jul, Active RESULTS Name Result Date Reference Range Xray : Chest 2 View (IN HOUSE) 2017-11-10 PROCEDURES Procedure Date Ordered Result Body Site X-RAY EXAM CHEST 2 VIEWS November 10, 2017 [facility] VISIT ESTABLISHED PATIENT November 10, 2017 INSTRUCTIONS MEDICATIONS ADMINISTERED No Known Medications [...] Hospitalization History Post Stroke pt went to [facility] and then [facility] 10/15/15 Hospitalization History Hypotension, Wander ateral leg weakness--Via [facility] 01/15/16 Hospitalization History hypertension/chest pain 03/2017
--- OUTSIDE RECORDS SUMMARY | 2023-03-21 11:27 | XMS REPORT ---
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 94923288 Problem Bilateral hearing loss, unspecified hearing loss type H91.93 Active 40210378 Problem 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 Active 30480393 1 Problem Left-sided muscle weakness M62.81 Active 168920650 Problem SNHL (sensory-neural hearing loss), 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 Active 292352093 Problem Panic attack F41.0 Active 867948907 Problem Other chronic pain G89.29 Active 23662 001 Problem History of cerebrovascular accident with hemiparesis or hemiplegia Z86.73 Active 497417679 Problem Hypertension I10 Active 75615154 Problem Dementia with behavioral disturbance, unspecified dementia type F03.91 Active 4174793425584 Problem 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 Active 412166652927 Problem Anxiety F41.9 Active 70624534 Problem Vascular dementia without behavioral disturbance F01.50 Active 836998157 Problem Hypothyroidism (acquired) E03.9 Active 914706686 Problem 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 [id number] [address] Feb, [facility] [id number] [place] [address] Feb, [place] [id number] [place] [address] Jan, [place] [id number] [place] [address] Dec, Anxiety F41.9 and 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 [place] [address] [address] November, [place] [id number] [place] [address] November, Chronic cough R05 and Cardiomegaly I51.7 [place] [id number] [place] [address] Oct, Medicare annual wellness visit, initial Z00.00 [...] and Encounter for immunization Z23 [place] [id number] [place] [address] Sep, [place] [id number] [place] [address] Jul, [place] [id number] [place] [address] Jul, [place] [id number] [place] [address] Jun, Anxiety F41.9 and 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 [place] [id number] [place] [address] Jun, Bronchitis J40 and Bilateral hearing loss, unspecified hearing loss type H91.93 [place] [id number] [place] [address] Jun, [facility] [id number] [place] [address] Apr, [place] [address] [address] Apr, Encounter for immunization Z23 and Left breast mass N63.20 [place] [id number] [place] [address] 16 Apr, 2017 [place] [address] [address] Mar, CVA (cerebral vascular accident) I63.9 ; Hypertension I10 ; 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 ; Type 2 diabetes mellitus with diabetic neuropathy, 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 and Left breast mass N63 [place] [id number] [place] [address] Mar, Mild episode of recurrent major depressive disorder F33.0 and Anxiety F41.9 [place] [id number] [place] [address] Mar, Breast mass, left N63 [place] [id number] [place] [address] Mar, Breast mass, left N63 [facility] [id number] [place] [address] Feb, [place] [address] [address] Feb, [facility] [id number] [place] [address] Feb, [place] [id number] [place] [address] Feb, [place] [id number] [place] [address] Feb, Onychomycosis B35.1 and Type 2 diabetes mellitus with complication E11.8 [place] [id number] [place] [address] Jan, Mild episode of recurrent major depressive disorder F33.0 and Anxiety F41.9 [place] [id number] [place] [address] Jan, [place] [id number] [place] [address] Dec, Onychomycosis due to dermatophyte B35.1 ; 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 ; Type 2 diabetes mellitus with diabetic neuropathy, 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 ; Falls frequently R29.6 ; Neuropathy G62.9 ; Dementia with behavioral disturbance, unspecified dementia type F03.91 ; Hypothyroidism (acquired) E03.9 and Left hand pain M79.642 [place] [id number] [place] [address] Dec, [place] [id number] [place] [address] Dec, Hypothyroidism (acquired) E03.9 [place] [id number] [place] [address] Dec, 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 [place] [address] [address] November, Hypothyroidism (acquired) E03.9 [place] [id number] [place] [address] Oct, [place] [id number] [place] [address] Oct, 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 [place] [id number] [place] [address] Oct, [place] [id number] [place] [address] Oct, Dysuria R30.0 ; 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 ; Bilateral hearing loss, unspecified hearing loss type H91.93 and 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 [place] [id number] [place] [address] Sep, [facility] [id number] [place] [address] Sep, Open wound of right great toe, initial encounter S91.101A [place] [address] [address] Sep, Breast mass, left N63 ; Non-insulin dependent type 2 diabetes mellitus E11.9 and Vascular dementia without behavioral disturbance F01.50 [place] [id number] [place] [address] Sep, [place] [id number] [place] [address] Jul, [place] [id number] [place] [address] Jul, Diabetes E11.9 ; Diaper dermatitis L22 ; Candidiasis of skin and nail B37.2 ; Neuropathy G62.9 ; Status post stroke Z86.73 ; Unsteadiness on feet R26.81 and 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 [place] [id number] [place] [address] May, [place] [address] [address] May, [place] [id number] [place] [address] May, [place] [id number] [place] [address] May, Dementia with behavioral disturbance, unspecified dementia type F03.91 [place] [id number] [place] [address] May, Dementia with behavioral disturbance, unspecified dementia type F03.91 ; Encounter for immunization Z23 and Diabetes E11.9 [place] [id number] [place] [address] May, [place] [address] [address] May, Neuropathy G62.9 [place] [address] [address] May, [place] [address] [address] Apr, Hypothyroidism (acquired) E03.9 [place] [address] [address] Apr, CVA (cerebral vascular accident) I63.9 ; Left hand weakness M62.81 and Neuropathy G62.9 [place] [id number] [place] [address] Apr, Hypokalemia E87.6 [place] [id number] [place] [address] Apr, Hypokalemia E87.6 [place] [id number] [place] [address] Mar, Diabetes E11.9 ; Edema, unspecified type R60.9 ; Anxiety disorder, unspecified F41.9 ; Pain in left knee M25.562 ; Other chronic pain G89.29 and Status post stroke Z86.73 [place] [id number] [place] [address] Mar, [place] [id number] [place] [address] Mar, [place] [id number] [place] [address] Mar, Neuropathy G62.9 [facility] [address] [address] Feb, Anorexia R63.0 and Neuropathy G62.9 [facility] [address] [address] Jan, Diabetes E11.9 ; Neuropathy G62.9 ; Panic attack F41.0 ; Pain in left knee M25.562 and Hypertension 401.9 [place] [address] [address] Jan, Weakness R53.1 ; Fatigue, unspecified type R53.83 ; Falling episodes R29.6 and Neuropathy G62.9 [place] [address] [address] Jan, Pain in left knee M25.562 [place] [address] [address] Jan, [place] [address] [address] Jan, [place] [id number] [place] [address] Jan, [facility] [address] [address] Dec, Diabetes E11.9 ; Neuropathy G62.9 and Dementia F03.90 [facility] [address] [address] Dec, [place] [address] [address] Dec, Neuropathy G62.9 ; Diabetes E11.9 ; Anxiety F41.9 and Constipation, unspecified constipation type K59.00 [facility] [address] [address] Dec, [facility] [address] [address] Dec, Anxiety F41.9 [facility] [id number] [place] [address] November, [facility] [id number] [place] [address] November, Pain in left knee M25.562 ; Other chronic pain G89.29 ; Diabetes E11.9 and Left eye pain H57.12 [facility] [id number] [place] [address] November, [facility] [id number] [place] [address] November, Hearing loss, unspecified laterality H91.90 [facility] [id number] [place] [address] November, [facility] [id number] [place] [address] November, [facility] [id number] [place] [address] November, Pain in right knee M25.561 [facility] [id number] [place] [address] November, [facility] [id number] [place] [address] Oct, [facility] [id number] [place] [address] Oct, [facility] [id number] [place] [address] Oct, Edema of left lower extremity R60.0 ; Diabetes E11.9 ; 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 I63.39 and Anxiety disorder, unspecified F41.9 [facility] [id number] [place] [address] 14 Oct, 2015 Panic attack F41.0 [place] [id number] [place] [address] 14 Oct, 2015 [place] [id number] [place] [address] 13 Oct, 2015 CVA (cerebral vascular accident) I63.9 [place] [id number] [place] [address] 13 Oct, 2015 [place] [id number] [place] [address] 04 Oct, 2015 Diabetes E11.9 ; Hypertension I10 and Dementia F03.90 [place] [id number] [place] [address] 30 Sep, 2015 [place] [id number] [place] [address] Sep, [place] [id number] [place] [address] Sep, Diabetes E11.9 ; 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 ; Onychomycosis B35.1 and Fatigue R53.83 [place] [address] [place] [address] Aug, [place] [id number] [place] [address] Aug, [place] [id number] [place] [address] Jul, [place] [id number] [place] [address] Jul, [place] [id number] [place] [address] Jun, 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 [place] [id number] [place] [address] Jun, Anxiety disorder, unspecified F41.9 and Major depressive disorder, single episode, moderate F32.1 [facility] [id number] [place] [address] Jun, [facility] [id number] [place] [address] Jun, [facility] [id number] [place] [address] May, Left knee pain M25.562 [facility] [id number] [place] [address] May, [facility] [id number] [place] [address] May, [facility] [id number] [place] [address] May, [facility] [id number] [place] [address] May, Hypertension I10 ; Diabetes E11.9 and Depression F32.9 [facility] [id number] [place] [address] May, [facility] [id number] [place] [address] Apr, Left knee pain M25.562 ; Type 2 diabetes mellitus with complication E11.8 and Encounter for immunization Z23 [facility] [id number] [place] [address] Apr, [facility] [id number] [place] [address] Apr, [facility] [id number] [place] [address] Mar, [facility] [id number] [place] [address] Mar, Silvestre stanley 727.51 [facility] [address] [address] Mar, [facility] [address] [address] Mar, [facility] [address] [address] Mar, [facility] [id number] [place] [address] Feb, [facility] [address] [address] Feb, [facility] [address] [place] [address] Feb, Hypertension 401.9 and Diabetes 250.00 [facility] [address] [address] Jan, [facility] [address] [address] Jan, Diabetes 250.00 [facility] [address] [address] Jan, [facility] [address] [address] Jan, [facility] [id number] [address] Dec, Diabetes 250.00 and Forgetfulness 780.99 [facility] [id number] [address] Dec, [facility] [address] [address] Dec, Diabetes mellitus 250.00 [facility] [address] [address] Dec, [facility] [address] [place] [address] Dec, [facility] [address] [address] Dec, [facility] [address] [address] Dec, Diabetes 250.00 and Dysthymia 300.4 [facility] [id number] [place] [address] Dec, [facility] [address] [place] [address] 09 Dec, 2014 Grief 309.0 and Diabetes mellitus 250.00 [facility] [id number] [place] [address] Oct, [facility] [address] [place] [address] Oct, [facility] [address] [place] [address] Jul, [facility] [address] [address] Jul, [facility] [address] [address] Jul, [facility] [address] [address] Jul, [facility] [address] [address] Jul, [facility] [id number] [address] May, [facility] [address] [address] May, [facility] [id number] [address] Apr, [facility] [address] [address] Apr, [facility] [place] [facility] [address] [id number] [place] [address] Mar, [facility] [place] [facility] [address] [id number] [place] [address] Mar, [facility] [place] [facility] [address] [id number] [place] [address] Feb, [facility] [place] [facility] [address] [id number] [place] [address] Feb, [facility] [place] [facility] [address] [id number] [place] [address] Feb, [facility] [place] [facility] [address] [id number] [place] [address] Feb, [facility] [place] [facility] [address] [id number] [place] [address] Feb, [facility] [place] [facility] [address] [id number] [place] [address] Feb, [facility] [place] [facility] [address] [id number] [place] [address] November, [facility] [place] [facility] [address] [id number] [place] [address] November, [facility] [place] [facility] [address] [id number] [place] [address] Sep, [facility] [place] [facility] [address] [id number] [place] [address] Sep, [facility] [place] [facility] [address] [id number] [place] [address] Sep, [facility] [place] [facility] [address] [id number] [place] [address] Sep, [facility] [place] [facility] [address] [id number] [place] [address] Sep, [facility] [place] [facility] [address] [id number] [place] [address] 14 Sep, 2013 [facility] [place] [facility] [address] [id number] [place] [address] Sep, [facility] [place] [facility] [address] [id number] [place] [address] Sep, [facility] [place] [facility] [address] [id number] [place] [address] Aug, [facility] [place] [facility] [address] [id number] [place] [address] Aug, [facility] [place] [facility] [address] [id number] [place] [address] Jul, [facility] [place] [facility] [address] [id number] [place] [address] Jul, [facility] [place] [facility] [address] [id number] [place] [address] Jul, [facility] [place] [facility] [address] [id number] [place] [address] Jul, [facility] [place] [facility] [address] [id number] [place] [address] Jun, [facility] [place] [facility] [address] [id number] [place] [address] Jun, [facility] [place] [facility] [address] [id number] [place] [address] May, [facility] [place] [facility] [address] [id number] [place] [address] May, [facility] [place] [facility] [address] [id number] [place] [address] May, [facility] [place] [facility] [address] [id number] [place] [address] May, [facility] [place] [facility] [address] [id number] [place] [address] May, [facility] [address] [id number] [place] [address] May, [facility] [place] [facility] [address] [id number] [place] [address] Apr, [facility] [place] [facility] [address] [id number] [place] [address] Apr, [facility] [place] [facility] [address] [id number] [place] [address] Apr, [facility] [place] [facility] [address] [id number] [place] [address] Apr, [facility] [place] [facility] [address] [id number] [place] [address] Mar, [facility] [place] [facility] [address] [id number] [place] [address] Mar, [facility] [place] [facility] [address] [id number] [place] [address] Jan, [facility] [place] [facility] [address] [id number] [place] [address] Jan, [facility] [place] [facility] [address] [id number] [place] [address] Jan, [facility] [place] [facility] [address] [id number] [place] [address] November, [facility] [place] [facility] [address] [id number] [place] [address] November, [facility] [place] [facility] [address] [id number] [place] [address] November, [facility] [place] [facility] [address] [id number] [place] [address] November, [facility] [place] [facility] [address] [id number] [place] [address] Aug, [facility] [place] [facility] [address] [id number] [place] [address] Jul, [facility] [place] [facility] [address] [id number] [place] [address] Jul, [facility] [place] [facility] [address] [id number] [place] [address] Jul, [facility] [place] [facility] [address] [id number] [place] [address] Jun, [facility] [place] [facility] [address] [id number] [place] [address] Jun, [facility] [place] [facility] [address] [id number] [place] [address] May, [facility] [place] [facility] [address] [id number] [place] [address] May, [facility] [place] [facility] [address] [id number] [place] [address] Apr, [facility] [place] [facility] [address] [id number] [place] [address] Apr, [facility] [place] [facility] [address] [id number] [place] [address] Apr, [facility] [place] [facility] [address] [facility] [id number] [place] [address] Apr, [facility] [place] [facility] [address] [id number] [place] [address] Apr, [facility] [place] [facility] [address] [id number] [place] [address] Apr, [facility] [place] [facility] [address] [id number] [place] [address] Apr, [facility] [place] [facility] [address] [facility] [id number] [place] [address] Apr, [facility] [place] [facility] [address] [id number] [place] [id number] Apr, [facility] [place] [facility] [address] [id number] [place] [address] Mar, [facility] [place] [facility] [address] [id number] [place] [address] Feb, [facility] [place] [facility] [address] [id number] [place] [address] November, [facility] [place] [facility] [address] [id number] [place] [address], [place] [address] November, [facility] [address] [id number] [place] [address] November, [facility] [place] [facility] [address] [id number] [place] [address] November, [facility] [address] [id number] [place] [address] Jun, [facility] [address] [id number] [place] [address] Jun, [facility] [place] [facility] [address] [id number] [place] [address] May, [facility] [place] [facility] [address] [id number] [place] [address] May, [facility] [place] [facility] [address] [id number] [place] [address] Apr, [facility] [place] [facility] [address] [id number] [place] [address] Apr, [facility] [place] [facility] [address] [id number] [place] [address] May, [facility] [place] [facility] [address] [id number] [place] [address] Apr, [facility] [place] [facility] [address] [id number] [place] [address] Apr, [facility] [place] [facility] [address] [id number] [place] [address] Apr, [facility] [address] [facility] [id number] [place] [address] Apr, IMMUNIZATIONS Vaccine Route Administration Date Status TDAP (BOOSTRIX) IM Intramuscular October 12, 2017 Admini stered PPSV23 (PNEUMOVAX) IM Intramuscular October 12, 2017 Adm inistered SOCIAL HISTORY Never Assessed REASON FOR VISIT Medicare AWV - Initial Visit -- jacquelin becerra PLAN OF CARE Activity Details VITAL SIGNS Height 62 in 2017-10-12 Weight 170.0 lbs 2017-10-12 Temperature 98.0 degrees Fahrenheit Heart Rate 60 bpm 2017-10-12 Respiratory Rate 18 2017-10-12 BMI 31.09 kg/m2 2017-10-12 Blood pressure systolic 124 mmHg Blood pressure diastolic 60 mmHg 2017-10 MEDICATIONS Medication Instructions Dosage Frequency Start Date End Date Duration Status Bydureon 2 MG Subcutaneous once weekly Inject 2mg 28 Active Neurontin 300 MG Orally 3 times a day 1 capsule 8h 30 Not-Takin g Aggrenox 25-200 MG Orally Twice a day 1 capsule 12h 90 days Not-Takin g Blood Glucose Monitor System N/A test blood sugar 24h Jul, Active Aricept 5 MG TAKE ONE TABLET BY MOUTH ONCE DAILY AT BEDTIME 30 Active Test strips Test Strips ICD10- E11.9 2 times a day test blood sugar 12h Oct, Active Levothyroxine Sodium 50 MCG TAKE ONE TABLET BY MOUTH ONCE DAILY IN THE MORNING ON AN EMPTY STOMACH 30 Active BusPIRone HCl 5 MG TAKE ONE TABLET BY MOUTH TWICE DAILY 30 Active Aricept 5 mg TAKE ONE TABLET BY MOUTH ONCE DAILY AT BEDTIME 30 Not-Takin g Gabapentin 300 MG TAKE ONE CAPSULE BY MOUTH THREE TIMES DAILY 30 Active Atorvastatin Calcium 40 MG TAKE ONE TABLET BY MOUTH ONCE DAILY AT BEDTIME 90 Active Tylenol 325 MG Orally every 6 hrs 2 tablet as needed 6h Aug, Active MetFORMIN HCl ER 750 MG TAKE ONE TABLET BY MOUTH ONCE DAILY WITH A MEAL 90 Active Norvasc 10 MG Orally Once a day 1 tablet 24h Active Levetiracetam 500 MG Orally Twice a day 1 tablet 12h 90 Active Carvedilol 3.125 MG TAKE ONE TABLET BY MOUTH TWICE DAILY 30 Active Wheelchair - as directed 11 [place], 2016 Active Sertraline HCl 100 MG TAKE ONE AND ONE-HALF TABLETS BY MOUTH ONCE DAILY. 90 Active RESULTS No Results PROCEDURES Procedure Date Ordered Result Body Site ANNUAL AGNES VST; PERSNL PPS INIT October 12, 2017 FALL RISK ASSESSMENT DOCD October 12, 2017 IMMUNIZATION ADMIN, EACH ADD (please include units) Ap 2017 SINGLE IMMUNIZATION ADMIN October 12, 2017 TDAP (BOOSTRIX) October 12, 2017 PT TOBACCO SCREEN RCVD TLK October 12, 2017 ADMN PNEUMCOC VAC NO FEE SCHED DAY October 12, 2017 PPSV23 (PNEUMOVAX) October 12, 2017 INSTRUCTIONS MEDICATIONS ADMINISTERED No Known Medications [...] Hospitalization History Post Stroke pt went to [facility] and then [facility] 10/15/15 Hospitalization History Hypotension, Wander ateral leg weakness--Via [facility] 01/15/16 Hospitalization History hypertension/chest pain 03/2017
--- OUTSIDE RECORDS SUMMARY | 2023-03-21 11:27 | XMS REPORT ---
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 28201479 Problem Bilateral hearing loss, unspecified hearing loss type H91.93 Active 34939176 Problem 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 Active 97924399 1 Problem Left-sided muscle weakness M62.81 Active 626184791 Problem SNHL (sensory-neural hearing loss), 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 Active 364996425 Problem Panic attack F41.0 Active 336808607 Problem Other chronic pain G89.29 Active 89661 001 Problem History of cerebrovascular accident with hemiparesis or hemiplegia Z86.73 Active 258600886 Problem Hypertension I10 Active 69328428 Problem Dementia with behavioral disturbance, unspecified dementia type F03.91 Active 4591007411251 Problem 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 Active 559469893420 Problem Anxiety F41.9 Active 83273802 Problem Vascular dementia without behavioral disturbance F01.50 Active 546696644 Problem Hypothyroidism (acquired) E03.9 Active 507444736 Problem 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 Active 07307830 ALLERGIES No Information ENCOUNTERS Encounter Location Date Diagnosis [facility] [id number] [address] Jan, [facility] [id number] [address] Dec, Anxiety F41.9 and 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 [facility] [id number] [place] [address] November, [facility] [address] [address] November, Chronic cough R05 and Cardiomegaly I51.7 [facility] [address] [address] Oct, Medicare annual wellness visit, initial Z00.00 [...] seizures R56.1 and Encounter for immunization Z23 [facility] [address] [address] Sep, [facility] [address] [address] Jul, [facility] [address] [address] Jul, [facility] [address] [address] Jun, Anxiety F41.9 and 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 [facility] [address] [address] Jun, Bronchitis J40 and Bilateral hearing loss, unspecified hearing loss type H91.93 [facility] [address] [address] Jun, [facility] [address] [address] Apr, [facility] [id number] [place] [address] Apr, Encounter for immunization Z23 and Left breast mass N63.20 [facility] [id number] [place] [address] 16 Apr, 2017 [facility] [id number] [place] [address] Mar, CVA (cerebral vascular accident) I63.9 ; Hypertension I10 ; 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 ; Type 2 diabetes mellitus with diabetic neuropathy, 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 and Left breast mass N63 [facility] [id number] [place] [address] Mar, Mild episode of recurrent major depressive disorder F33.0 and Anxiety F41.9 [facility] [id number] [place] [address] Mar, Breast mass, left N63 [facility] [id number] [place] [address] Mar, Breast mass, left N63 [facility] [id number] [place] [address] Feb, [facility] [id number] [place] [address] Feb, [facility] [id number] [place] [address] Feb, [facility] [id number] [place] [address] Feb, [facility] [id number] [place] [address] Feb, Onychomycosis B35.1 and Type 2 diabetes mellitus with complication E11.8 [facility] [id number] [place] [address] Jan, Mild episode of recurrent major depressive disorder F33.0 and Anxiety F41.9 [facility] [id number] [place] [address] Jan, [facility] [id number] [place] [address] Dec, Onychomycosis due to dermatophyte B35.1 ; 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 ; Type 2 diabetes mellitus with diabetic neuropathy, 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 ; Falls frequently R29.6 ; Neuropathy G62.9 ; Dementia with behavioral disturbance, unspecified dementia type F03.91 ; Hypothyroidism (acquired) E03.9 and Left hand pain M79.642 [facility] [id number] [place] [address] Dec, [facility] [id number] [place] [address] Dec, Hypothyroidism (acquired) E03.9 [facility] [id number] [place] [address] Dec, 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 [facility] [id number] [place] [address] November, Hypothyroidism (acquired) E03.9 [facility] [id number] [place] [address] Oct, [facility] [id number] [place] [address] Oct, 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 [facility] [id number] [place] [address] Oct, [facility] [address] [address] Oct, Dysuria R30.0 ; 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 ; Bilateral hearing loss, unspecified hearing loss type H91.93 and 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 [facility] [id number] [place] [address] Sep, [facility] [id number] [place] [address] Sep, Open wound of right great toe, initial encounter S91.101A [facility] [address] [address] Sep, Breast mass, left N63 ; Non-insulin dependent type 2 diabetes mellitus E11.9 and Vascular dementia without behavioral disturbance F01.50 [facility] [address] [address] Sep, [facility] [id number] [place] [address] Jul, [facility] [address] [address] Jul, Diabetes E11.9 ; Diaper dermatitis L22 ; Candidiasis of skin and nail B37.2 ; Neuropathy G62.9 ; Status post stroke Z86.73 ; Unsteadiness on feet R26.81 and 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 [facility] [id number] [place] [address] May, [facility] [id number] [place] [address] May, [facility] [id number] [place] [address] May, [facility] [id number] [place] [address] May, Dementia with behavioral disturbance, unspecified dementia type F03.91 [facility] [id number] [place] [address] 16 May, 2016 Dementia with behavioral disturbance, unspecified dementia type F03.91 ; Encounter for immunization Z23 and Diabetes E11.9 [facility] [id number] [place] [address] May, [facility] [address] [address] May, Neuropathy G62.9 [facility] [id number] [place] [address] May, [facility] [address] [address] Apr, Hypothyroidism (acquired) E03.9 [facility] [address] [address] Apr, CVA (cerebral vascular accident) I63.9 ; Left hand weakness M62.81 and Neuropathy G62.9 [facility] [address] [address] Apr, Hypokalemia E87.6 [facility] [address] [address] Apr, Hypokalemia E87.6 [facility] [address] [address] Mar, Diabetes E11.9 ; Edema, unspecified type R60.9 ; Anxiety disorder, unspecified F41.9 ; Pain in left knee M25.562 ; Other chronic pain G89.29 and Status post stroke Z86.73 [facility] [id number] [place] [address] Mar, [facility] [id number] [place] [address] Mar, [facility] [id number] [place] [address] 07 Mar, 2016 Neuropathy G62.9 [facility] [id number] [place] [address] Feb, Anorexia R63.0 and Neuropathy G62.9 [facility] [id number] [place] [address] Jan, Diabetes E11.9 ; Neuropathy G62.9 ; Panic attack F41.0 ; Pain in left knee M25.562 and Hypertension 401.9 [facility] [id number] [place] [address] Jan, Weakness R53.1 ; Fatigue, unspecified type R53.83 ; Falling episodes R29.6 and Neuropathy G62.9 [facility] [id number] [place] [address] Jan, Pain in left knee M25.562 [facility] [address] [address] Jan, [facility] [address] [address] Jan, [facility] [address] [address] Jan, [facility] [id number] [place] [address] Dec, Diabetes E11.9 ; Neuropathy G62.9 and Dementia F03.90 [facility] [id number] [place] [address] Dec, [facility] [id number] [place] [address] Dec, Neuropathy G62.9 ; Diabetes E11.9 ; Anxiety F41.9 and Constipation, unspecified constipation type K59.00 [facility] [id number] [place] [address] Dec, [facility] [id number] [place] [address] Dec, Anxiety F41.9 [facility] [id number] [place] [address] November, [facility] [id number] [place] [address] November, Pain in left knee M25.562 ; Other chronic pain G89.29 ; Diabetes E11.9 and Left eye pain H57.12 [facility] [id number] [place] [address] November, [facility] [id number] [place] [address] November, Hearing loss, unspecified laterality H91.90 [facility] [id number] [place] [address] November, [facility] [id number] [place] [address] November, [facility] [id number] [place] [address] November, Pain in right knee M25.561 [facility] [id number] [place] [address] November, [facility] [id number] [place] [address] Oct, [facility] [id number] [place] [address] Oct, [facility] [id number] [place] [address] Oct, Edema of left lower extremity R60.0 ; Diabetes E11.9 ; 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 I63.39 and Anxiety disorder, unspecified F41.9 [facility] [id number] [place] [address] Oct, Panic attack F41.0 [facility] [id number] [place] [address] Oct, [facility] [id number] [place] [address] Oct, CVA (cerebral vascular accident) I63.9 [facility] [id number] [place] [address] Oct, [facility] [id number] [place] [address] Oct, Diabetes E11.9 ; Hypertension I10 and Dementia F03.90 [facility] [id number] [place] [address] Sep, [facility] [id number] [place] [address] Sep, [facility] [id number] [place] [address] Sep, Diabetes E11.9 ; 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 ; Onychomycosis B35.1 and Fatigue R53.83 [facility] [id number] [place] [address] Aug, [facility] [id number] [place] [address] Aug, [facility] [id number] [place] [address] Jul, [facility] [id number] [place] [address] Jul, [facility] [id number] [place] [address] Jun, 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 [facility] [id number] [place] [address] Jun, Anxiety disorder, unspecified F41.9 and Major depressive disorder, single episode, moderate F32.1 [facility] [id number] [place] [address] Jun, [facility] [address] [place] [address] Jun, [facility] [id number] [place] [address] May, Left knee pain M25.562 [facility] [id number] [place] [address] May, [facility] [address] [address] May, [facility] [address] [address] May, [facility] [address] [address] May, Hypertension I10 ; Diabetes E11.9 and Depression F32.9 [facility] [address] [address] May, [facility] [address] [address] Apr, Left knee pain M25.562 ; Type 2 diabetes mellitus with complication E11.8 and Encounter for immunization Z23 [facility] [address] [address] Apr, [facility] [id number] [place] [address] Apr, [facility] [address] [address] Mar, [facility] [id number] [place] [address] Mar, Silvestre stanley 727.51 [facility] [address] [address] Mar, [facility] [id number] [place] [address] Mar, [facility] [address] [place] [address] Mar, [facility] [address], [place] [address] Feb, [facility] [address], [place] [address] Feb, [facility] [address], [place] [address] Feb, Hypertension 401.9 and Diabetes 250.00 [facility] [address], [place] [address] Jan, [facility] [id number] [place] [address] Jan, Diabetes 250.00 [facility] [address] [place] [address] Jan, [facility] [address] [place] [address] Jan, [facility] [address] [address] Dec, Diabetes 250.00 and Forgetfulness 780.99 [facility] [address] [address] Dec, [facility] [id number] [address] Dec, Diabetes mellitus 250.00 [facility] [address], [place] [address] Dec, [facility] [address] [address] Dec, [facility] [address] [address] Dec, [facility] [id number] [address] Dec, Diabetes 250.00 and Dysthymia 300.4 [facility] [address] [facility] [id number] [place] [address] Dec, [facility] [address] [facility] [id number] [place] [address] Dec, Grief 309.0 and Diabetes mellitus 250.00 [facility] [address] [facility] [id number] [place] [address] 14 Oct, 2014 [facility] [address] [facility] [id number] [place] [address] Oct, [facility] [address] [facility] [id number] [place] [address] Jul, [facility] [address] [facility] [id number] [place] [address] Jul, [facility] [id number] [place] [address] Jul, [facility] [id number] [place] [address] Jul, [facility] [id number] [place] [address] Jul, [facility] [id number] [place] [address] May, [facility] [id number] [place] [address] May, [facility] [address] [facility] [id number] [place] [address] Apr, [facility] [address] [facility] [id number] [place] [address] Apr, [facility] [address] [facility] [id number] [place] [address] Mar, [facility] [id number] [place] [address] Mar, [facility] [place] [facility] [address] [id number] [place] [address] Feb, [facility] [place] [facility] [address] [id number] [place] [address] Feb, [facility] [place] [facility] [address] [id number] [place] [address] Feb, [facility] [place] [facility] [address] [id number] [place] [address] Feb, [facility] [place] [facility] [address] [id number] [place] [address] Feb, [facility] [place] [facility] [address] [id number] [place] [address] Feb, [facility] [place] [facility] [address] [id number] [place] [address] November, [facility] [place] [facility] [address] [id number] [place] [address] November, [facility] [place] [facility] [address] [id number] [place] [address] Sep, [facility] [place] [facility] [address] [id number] [place] [address] Sep, [facility] [place] [facility] [address] [id number] [place] [address] Sep, [facility] [place] [facility] [address] [id number] [place] [address] Sep, [facility] [place] [facility] [address] [id number] [place] [address] Sep, [facility] [place] [facility] [address] [id number] [place] [address] Sep, [facility] [place] [facility] [address] [id number] [place] [address] Sep, [facility] [place] [facility] [address] [id number] [place] [address] Sep, [facility] [place] [facility] [address] [id number] [place] [address] Aug, [facility] [place] [facility] [address] [id number] [place] [address] Aug, [facility] [place] [facility] [address] [facility] [id number] [place] [address] Jul, [facility] [place] [facility] [address] [id number] [place] [address] Jul, [facility] [place] [facility] [address] [id number] [place] [address] Jul, [facility] [place] [facility] [address] [facility] [id number] [place] [address] Jul, [facility] [place] [facility] [address] [facility] [id number], [place] [address] Jun, [facility] [place] [facility] [address] [id number], [place] [address] Jun, [facility] [place] [facility] [address] [id number], [place] [address] May, [facility] [place] [facility] [address] [id number], [place] [address] May, [facility] [place] [facility] [address] [id number], [place] [address] May, [facility] [place] [facility] [address] [id number], [place] [address] May, [facility] [place] [facility] [address] [id number], [place] [address] May, [facility] [place] [facility] [address] [id number], [place] [address] May, [facility] [place] [facility] [address] [facility] [id number], [place] [address] Apr, [facility] [place] [facility] [address] [id number] [place] [address] 17 Apr, 2013 [facility] [address] [id number] [place] [address] 16 Apr, 2013 [facility] [address] [id number] [place] [address] 16 Apr, 2013 [facility] [address] [id number] [place] [address] 27 Mar, 2013 [facility] [address] [id number] [place] [address] 27 Mar, 2013 [facility] [address] [id number] [place] [address] 18 Jan, 2013 [facility] [address] [id number] [place] [address] Jan, [facility] [address] [id number] [place] [address] Jan, [facility] [address] [id number] [place] [address] November, [facility] [address] [id number] [place] [address] November, [facility] [address] [id number] [place] [address] November, [facility] [address] [id number] [place] [address] November, [facility] [address] [id number] [place] [address] Aug, [facility] [address] [id number] [place] [address] Jul, [facility] [address] [id number] [place] [address] Jul, [facility] [address] [id number] [place] [address] Jul, [facility] [place] [facility] [address] [id number] [place] [address] Jun, [facility] [place] [facility] [address] [id number] [place] [address] Jun, [facility] [place] [facility] [address] [id number] [place] [address] May, [facility] [place] [facility] [address] [id number] [place] [address] May, [facility] [place] [facility] [address] [id number] [place] [address] Apr, [facility] [place] [facility] [address] [id number] [place] [address] Apr, [facility] [place] [facility] [address] [id number] [place] [address] Apr, [facility] [place] [facility] [address] [id number] [place] [address] Apr, [facility] [place] [facility] [address] [id number] [place] [address] Apr, [facility] [place] [facility] [address] [facility] [id number] [address] Apr, [facility] [place] [facility] [address] [facility] [id number], [place] [address] Apr, [facility] [place] [facility] [address] [id number], [place] [address] Apr, [facility] [place] [facility] [address] [id number], [place] [address] Apr, [facility] [place] [facility] [address] [id number], [place] [address] Mar, [facility] [place] [facility] [address] [facility] [id number], [place] [address] Feb, [facility] [place] [facility] [address] [id number], [place] [address] November, [facility] [id number] [address] November, [facility] [id number], [place] [address] November, [facility] [id number], [place] [address] November, [facility] [id number], [place] [address] Jun, [facility] [id number] [place] [address] Jun, [facility] [id number] [place] [address] May, [facility] [id number] [place] [address] May, [facility] [id number] [place] [address] Apr, [facility] [id number] [place] [address] Apr, [facility] [address], [place] [address] May, [facility] [address], [place] [address] Apr, [facility] [address], [place] [address] Apr, [facility] [address] [place] [address] Apr, [facility] [id number] [place] [address] Apr, IMMUNIZATIONS No Known Immunizations SOCIAL HISTORY Never Assessed REASON FOR VISIT Medication refill request PLAN OF CARE VITAL SIGNS MEDICATIONS Medication Instructions Dosage Frequency Start Date End Date Duration Status Bydureon 2 MG Subcutaneous once weekly Inject 2mg 28 Active RESULTS No Results PROCEDURES No Known [...] Hospitalization History Post Stroke pt went to [facility] and then [facility] 10/15/15 Hospitalization History Hypotension, Wander ateral leg weakness--Via [facility] 01/15/16 Hospitalization History hypertension/chest pain 03/2017
--- OUTSIDE RECORDS SUMMARY | 2023-03-21 11:27 | XMS REPORT ---
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 58503228 Problem Bilateral hearing loss, unspecified hearing loss type H91.93 Active 51267445 Problem 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 Active 37605580 1 Problem Left-sided muscle weakness M62.81 Active 320761224 Problem SNHL (sensory-neural hearing loss), 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 Active 605018989 Problem Panic attack F41.0 Active 885060772 Problem Other chronic pain G89.29 Active 79333 001 Problem History of cerebrovascular accident with hemiparesis or hemiplegia Z86.73 Active 522654515 Problem Hypertension I10 Active 33820059 Problem Dementia with behavioral disturbance, unspecified dementia type F03.91 Active 5109511387231 Problem 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 [id number] [address] Feb, [facility] [address] [place] [id number] [place] [address] Feb, [place] [address] [address] Dec, Anxiety F41.9 and 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 [place] [address] [address] November, [place] [address] [address] November, Chronic cough R05 and Cardiomegaly I51.7 [place] [address] [address] Oct, Medicare annual wellness visit, initial Z00.00 [...] seizures R56.1 and Encounter for immunization Z23 [place] [address] [id number] [place] [address] Sep, [place] [address] [address] Jul, [place] [address] [place] [id number] [place] [address] Jul, [place] [address] [address] Jun, Anxiety F41.9 and 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 [place] [address] [place] [id number] [place] [address] Jun, Bronchitis J40 and Bilateral hearing loss, unspecified hearing loss type H91.93 [facility] [id number] [place] [address] 14 Jun, 2017 [facility] [id number] [place] [address] Apr, [facility] [id number] [place] [address] Apr, Encounter for immunization Z23 and Left breast mass N63.20 [facility] [id number] [place] [address] 16 Apr, 2017 [facility] [id number] [place] [address] Mar, CVA (cerebral vascular accident) I63.9 ; Hypertension I10 ; 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 ; Type 2 diabetes mellitus with diabetic neuropathy, 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 and Left breast mass N63 [place] [id number] [place] [address] Mar, Mild episode of recurrent major depressive disorder F33.0 and Anxiety F41.9 [place] [address] [id number] [place] [address] Mar, Breast mass, left N63 [facility] [id number] [place] [address] Mar, Breast mass, left N63 [facility] [id number] [place] [address] Feb, [facility] [id number] [place] [address] Feb, [facility] [id number] [place] [address] Feb, [facility] [id number] [place] [address] Feb, [facility] [id number] [place] [address] Feb, Onychomycosis B35.1 and Type 2 diabetes mellitus with complication E11.8 [place] [id number] [place] [address] Jan, Mild episode of recurrent major depressive disorder F33.0 and Anxiety F41.9 [place] [id number] [place] [address] Jan, [place] [address] [address] Dec, Onychomycosis due to dermatophyte B35.1 ; 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 ; Type 2 diabetes mellitus with diabetic neuropathy, 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 ; Falls frequently R29.6 ; Neuropathy G62.9 ; Dementia with behavioral disturbance, unspecified dementia type F03.91 ; Hypothyroidism (acquired) E03.9 and Left hand pain M79.642 [place] [address] [address] Dec, [place] [address] [place] [id number] [place] [address] Dec, Hypothyroidism (acquired) E03.9 [place] [address] [id number] [place] [address] Dec, 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 [place] [id number] [place] [address] November, Hypothyroidism (acquired) E03.9 [place] [address] [place] [id number] [place] [address] Oct, [place] [address] [id number] [place] [address] Oct, 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 [place] [address] [id number] [place] [address] Oct, [place] [address] [address] Oct, Dysuria R30.0 ; 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 ; Bilateral hearing loss, unspecified hearing loss type H91.93 and 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 [facility] [id number] [place] [address] Sep, [facility] [id number] [place] [address] Sep, Open wound of right great toe, initial encounter S91.101A [place] [address] [id number] [place] [address] Sep, Breast mass, left N63 ; Non-insulin dependent type 2 diabetes mellitus E11.9 and Vascular dementia without behavioral disturbance F01.50 [place] [address] [place] [id number] [place] [address] Sep, [place] [address] [place] [id number] [place] [address] Jul, [place] [address] [place] [id number] [place] [address] Jul, Diabetes E11.9 ; Diaper dermatitis L22 ; Candidiasis of skin and nail B37.2 ; Neuropathy G62.9 ; Status post stroke Z86.73 ; Unsteadiness on feet R26.81 and 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 [place] [address] [place] [id number] [place] [address] May, [place] [address] [id number] [place] [address] May, [place] [id number] [place] [address] May, [place] [id number] [place] [address] May, Dementia with behavioral disturbance, unspecified dementia type F03.91 [place] [address] [place] [address] 16 May, 2016 Dementia with behavioral disturbance, unspecified dementia type F03.91 ; Encounter for immunization Z23 and Diabetes E11.9 [place] [address] [place] [id number] [place] [address] May, [place] [address] [place] [id number] [place] [address] May, Neuropathy G62.9 [place] [address] [address] May, [place] [address] [address] Apr, Hypothyroidism (acquired) E03.9 [place] [address] [place] [place] [id number] [place] [address] Apr, CVA (cerebral vascular accident) I63.9 ; Left hand weakness M62.81 and Neuropathy G62.9 [place] [address] [id number] [place] [address] Apr, Hypokalemia E87.6 [place] [id number] [place] [address] Apr, Hypokalemia E87.6 [place] [id number] [place] [address] Mar, Diabetes E11.9 ; Edema, unspecified type R60.9 ; Anxiety disorder, unspecified F41.9 ; Pain in left knee M25.562 ; Other chronic pain G89.29 and Status post stroke Z86.73 [place] [address] [id number] [place] [address] 15 Mar, 2016 [place] [address] [place] [address] [id number] [place] [address] 15 Mar, 2016 [place] [address] [id number] [place] [address] Mar, Neuropathy G62.9 [facility] [id number] [place] [address] Feb, Anorexia R63.0 and Neuropathy G62.9 [facility] [address] [address] Jan, Diabetes E11.9 ; Neuropathy G62.9 ; Panic attack F41.0 ; Pain in left knee M25.562 and Hypertension 401.9 [facility] [address] [address] Jan, Weakness R53.1 ; Fatigue, unspecified type R53.83 ; Falling episodes R29.6 and Neuropathy G62.9 [place] [address] [address] Jan, Pain in left knee M25.562 [place] [address] [address] Jan, [place] [address] [address] Jan, [place] [address] [address] Jan, [place] [address] [address] Dec, Diabetes E11.9 ; Neuropathy G62.9 and Dementia F03.90 [facility] [address] [address] Dec, [facility] [address] [address] Dec, Neuropathy G62.9 ; Diabetes E11.9 ; Anxiety F41.9 and Constipation, unspecified constipation type K59.00 [facility] [address] [address] Dec, [facility] [address] [address] Dec, Anxiety F41.9 [facility] [address] [id number] [place] [address] November, [facility] [address] [place] [address] [id number] [place] [address] November, Pain in left knee M25.562 ; Other chronic pain G89.29 ; Diabetes E11.9 and Left eye pain H57.12 [facility] [address] [place] [id number] [place] [address] November, [facility] [address] [place] [id number] [place] [address] November, Hearing loss, unspecified laterality H91.90 [facility] [address] [place] [id number] [place] [address] November, [facility] [address] [place] [id number] [place] [address] November, [facility] [address] [place] [id number] [place] [address] November, Pain in right knee M25.561 [facility] [address] [place] [id number] [place] [address] November, [facility] [address] [place] [id number] [place] [address] Oct, [facility] [address] [place] [id number] [place] [address] Oct, [facility] [address] [place] [id number] [place] [address] Oct, Edema of left lower extremity R60.0 ; Diabetes E11.9 ; 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 I63.39 and Anxiety disorder, unspecified F41.9 [facility] [address] [address] Oct, Panic attack F41.0 [place] [address] [place] [address] [id number] [place] [address] 14 Oct, 2015 [place] [address] [place] [address] [id number] [place] [address] Oct, CVA (cerebral vascular accident) I63.9 [facility] [address] [place] [id number] [place] [address] Oct, [place] [address] [address] Oct, Diabetes E11.9 ; Hypertension I10 and Dementia F03.90 [place] [address] [address] 30 Sep, 2015 [place] [address] [place] [id number] [place] [address] Sep, [place] [address] [place] [id number] [place] [address] Sep, Diabetes E11.9 ; 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 ; Onychomycosis B35.1 and Fatigue R53.83 [place] [address] [place] [id number] [place] [address] Aug, [place] [address] [place] [id number] [place] [address] Aug, [place] [address] [place] [address] [id number] [place] [address] Jul, [place] [address] [place] [id number] [place] [address] Jul, [place] [address] [place] [address] [id number] [place] [address] Jun, 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 [place] [address] [place] [id number] [place] [address] Jun, Anxiety disorder, unspecified F41.9 and Major depressive disorder, single episode, moderate F32.1 [facility] [address] [place] [id number] [place] [address] Jun, [facility] [address] [address] Jun, [facility] [address] [id number] [place] [address] May, Left knee pain M25.562 [facility] [address] [address] May, [facility] [address] [id number] [place] [address] May, [facility] [address] [address] May, [facility] [address] [address] May, Hypertension I10 ; Diabetes E11.9 and Depression F32.9 [facility] [address] [id number] [place] [address] May, [facility] [address] [address] Apr, Left knee pain M25.562 ; Type 2 diabetes mellitus with complication E11.8 and Encounter for immunization Z23 [facility] [address] [place] [id number] [place] [address] Apr, [facility] [address] [id number] [place] [address] Apr, [facility] [address] [place] [id number] [place] [address] Mar, [facility] [address] [place] [place] [id number] [place] [address] Mar, Silvestre stanley 727.51 [facility] [address] [address] Mar, [facility] [address] [place] [id number] [address] Mar, [facility] [address] [address] Mar, [facility] [address] [address] Feb, [facility] [id number] [place] [address] Feb, [facility] [address] [address] Feb, Hypertension 401.9 and Diabetes 250.00 [facility] [address] [address] Jan, [facility] [id number] [place] [address] Jan, Diabetes 250.00 [facility] [address], [place] [address] Jan, [facility] [address] [address] Jan, [facility] [address] [id number] [address] Dec, Diabetes 250.00 and Forgetfulness 780.99 [facility] [address] [address] Dec, [facility] [address] [id number] [address] Dec, Diabetes mellitus 250.00 [facility] [address], [place] [address] Dec, [facility] [address] [address] Dec, [facility] [address] [id number] [place] [address] 17 Dec, 2014 [facility] [address] [facility] [id number], [place] [address] 16 Dec, 2014 Diabetes 250.00 and Dysthymia 300.4 [facility] [address] [id number] [address] 15 Dec, 2014 [facility] [address] [facility] [id number] [place] [address] 09 Dec, 2014 Grief 309.0 and Diabetes mellitus 250.00 [facility] [address] [id number], [place] [address] Oct, [facility] [address] [facility] [id number] [place] [address] Oct, [facility] [id number] [address] Jul, [facility] [address] [facility] [id number], [place] [address] Jul, [facility] [id number] [address] Jul, [facility] [id number] [address] Jul, [facility] [id number] [address] Jul, [facility] [address] [facility] [id number], [place] [address] May, [facility] [address] [facility] [id number], [place] [address] May, [facility] [address] [facility] [id number], [place] [address] Apr, [facility] [address] [facility] [id number], [place] [address] Apr, [facility] [id number] [address] Mar, [facility] [place] [facility] [address] [id number] [place] [address] Mar, [facility] [place] [facility] [address] [id number] [place] [address] Feb, [facility] [place] [facility] [address] [id number] [place] [address] Feb, [facility] [place] [facility] [address] [id number] [place] [address] Feb, [facility] [place] [facility] [address] [id number] [place] [address] Feb, [facility] [place] [facility] [address] [id number] [place] [address] Feb, [facility] [place] [facility] [address] [id number] [place] [address] Feb, [facility] [place] [facility] [address] [id number] [place] [address] November, [facility] [place] [facility] [address] [id number] [place] [address] November, [facility] [place] [facility] [address] [id number] [place] [address] Sep, [facility] [place] [facility] [address] [id number] [place] [address] Sep, [facility] [place] [facility] [address] [id number] [place] [address] Sep, [facility] [place] [facility] [address] [id number] [place] [address] Sep, [facility] [place] [facility] [address] [id number] [place] [address] Sep, [facility] [place] [facility] [address] [id number] [place] [address] Sep, [facility] [place] [facility] [address] [id number] [place] [address] Sep, [facility] [place] [facility] [address] [id number] [place] [address] Sep, [facility] [place] [facility] [address] [id number] [place] [address] Aug, [facility] [place] [facility] [address] [id number] [place] [address] Aug, [facility] [place] [facility] [address] [id number] [place] [address] Jul, [facility] [place] [facility] [address] [id number] [place] [address] Jul, [facility] [place] [facility] [address] [id number] [place] [address] Jul, [facility] [place] [facility] [address] [id number] [place] [address] Jul, [facility] [place] [facility] [address] [id number] [place] [address] Jun, [facility] [place] [facility] [address] [id number] [place] [address] Jun, [facility] [place] [facility] [address] [id number] [place] [address] May, [facility] [place] [facility] [address] [id number] [place] [address] May, [facility] [place] [facility] [address] [id number] [place] [address] May, [facility] [place] [facility] [address] [id number] [place] [address] May[facility] [place] [facility] [address] [id number] [place] [address] May, [facility] [place] [facility] [address] [id number] [place] [address] May, [facility] [address] [id number] [place] [address] 17 Apr, 2013 [facility] [place] [facility] [address] [id number] [place] [address] 17 Apr, 2013 [facility] [address] [id number] [place] [address] Apr, [facility] [place] [facility] [address] [id number] [place] [address] Apr, [facility] [address] [id number] [place] [address] Mar, [facility] [place] [facility] [address] [id number] [place] [address] Mar, [facility] [address] [id number] [place] [address] Jan, [facility] [place] [facility] [address] [id number] [place] [address] Jan, [facility] [place] [facility] [address] [id number] [place] [address] Jan, [facility] [place] [facility] [address] [id number] [place] [address] November, [facility] [place] [facility] [address] [id number], [place] [address] November, [facility] [place] [facility] [address] [id number], [place] [address] November, [facility] [place] [facility] [address] [id number] [place] [address] November, [facility] [place] [facility] [address] [id number], [place] [address] Aug, [facility] [place] [facility] [address] [id number], [place] [address] Jul, [facility] [place] [facility] [address] [id number] [place] [address] Jul, [facility] [place] [facility] [address] [id number] [place] [address] Jul, [facility] [place] [facility] [address] [id number] [place] [address] Jun, [facility] [place] [facility] [address] [id number] [place] [address] Jun, [facility] [place] [facility] [address] [id number] [place] [address] May, [facility] [place] [facility] [address] [id number] [place] [address] May, [facility] [place] [facility] [address] [id number] [place] [address] Apr, [facility] [place] [facility] [address] [id number] [place] [address] Apr, [facility] [place] [facility] [address] [id number] [place] [address] Apr, [facility] [place] [facility] [address] [id number] [place] [address] Apr, [facility] [place] [facility] [address] [facility] [id number] [place] [address] Apr, [facility] [place] [facility] [address] [id number] [place] [address] Apr, [facility] [place] [facility] [address] [id number] [place] [address] Apr, [facility] [place] [facility] [address] [id number] [place] [address] Apr, [facility] [place] [facility] [address] [facility] [id number] [place] [address] Apr, [facility] [place] [facility] [address] [id number] [place] [address] Mar, [facility] [place] [facility] [address] [id number] [place] [address] Feb, [facility] [place] [facility] [address] [id number] [place] [address] November, [facility] [address] [id number] [place] [address] November, [facility] [address] [id number] [place] [address] November, [facility] [address] [id number] [place] [address] November, [facility] [address] [id number] [place] [address] Jun, [facility] [address] [id number] [place] [address] Jun, [facility] [address] [id number] [place] [address] May, [facility] [address] [id number] [place] [address] May, [facility] [address] [id number] [place] [address] Apr, [facility] [address] [id number] [place] [address] Apr, [facility] [place] [facility] [address] [id number] [address] May, [facility] [place] [facility] [address] [id number] [place] [address] Apr, [facility] [place] [facility] [address] [id number] [place] [address] Apr, [facility] [place] [facility] [address] [id number] [place] [address] Apr, [facility] [place] [facility] [address] [id number] [place] [address] Apr, IMMUNIZATIONS No Known Immunizations SOCIAL HISTORY Never Assessed REASON FOR VISIT Hospital f/u, VC, hypertension/chest pain---Joni, requesting refills on 90 days, wondering ifjose is needing to follow with neurology, has seen neurologist at , but mentioned changing to Dr. Monsalve PLAN OF CARE Activity Details VITAL SIGNS Height 62 in 2017-04-08 Weight 162 lbs 2017-04-08 Temperature 98.0 degrees Fahrenheit Heart Rate 60 bpm 2017-04-08 Respiratory Rate 20 2017-04-08 BMI 29.63 kg/m2 2017-04-08 Blood pressure systolic 102 mmHg Blood pressure diastolic 70 mmHg 2017-03 MEDICATIONS Medication Instructions Dosage Frequency Start Date End Date Duration Status Gabapentin 300 MG Orally 3 times a day TAKE ONE CAPSULE BY MOUTH THREE TIMES DAILY 8h Active Carvedilol 3.125 MG Orally 2 times a day 1 tablet 12h 30 Active Levothyroxine Sodium 50 MCG TAKE ONE TABLET BY MOUTH ON AN EMPTY STOMACH IN THE MORNING ONCE DAILY FOR 30 DAYS 30 Active Blood Glucose Monitor System N/A test blood sugar 24h Jul, Active Test strips Test Strips ICD10- E11.9 2 times a day test blood sugar 12h Oct, Active Aggrenox 25-200 MG Orally Twice a day 1 capsule 12h 90 days Active Wheelchair - as directed Jan, Active Sertraline HCl 100 MG Orally Once a day 1.5 tab 24h 90 days Active Bydureon 2 MG Subcutaneous once weekly Inject 2mg 28 Active Norvasc 10 MG Orally Once a day 1 tablet 24h Active MetFORMIN HCl ER 750 MG Orally Once a day 1 tablet with meals 24h Feb, Active Atorvastatin Calcium 40 mg Orally Once a day 1 tablet at bedtime 24h 90 Active Aricept 5 mg TAKE ONE TABLET BY MOUTH ONCE DAILY AT BEDTIME 30 Active Tylenol 325 MG Orally every 6 hrs 2 tablet as needed 6h Aug, Active Levetiracetam 500 MG Orally Twice a day 1 tablet 12h 90 Active RESULTS No Results PROCEDURES Procedure Date Ordered Result Body Site [facility] VISIT ESTABLISHED PATIENT Apr 08, 2017 INSTRUCTIONS [...] History Post Stroke pt went to [facility] and then [facility] 10/15/15 Hospitalization History Hypotension, Wander ateral leg weakness--Via [facility] 01/15/16 Hospitalization History hypertension/chest pain 03/2017
--- OUTSIDE RECORDS SUMMARY | 2023-03-21 11:27 | XMS REPORT ---
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 Active 20170441 1 Problem Type 2 diabetes mellitus with diabetic neuropathy, 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 Active 62354761 Problem Diabetes E11.9 Active 746940372 Problem History of cerebrovascular accident with hemiparesis or hemiplegia Z86.73 Active 070693946 Problem Cardiomegaly I51.7 Active 4147217 Problem SNHL (sensory-neural hearing loss), 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 Active 968618459 Problem Bilateral hearing loss, unspecified hearing loss type H91.93 Active 74361105 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 55333317 Problem Left-sided muscle weakness M62.81 Active 416916852 Problem Other chronic pain G89.29 Active 88676 001 Problem Anxiety F41.9 Active 11689826 Problem Hypertension I10 Active 23149972 Problem Panic attack F41.0 Active 932771862 Problem 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 Active 083914032624 Problem Vascular dementia without behavioral disturbance F01.50 Active 530829715 Problem Hypothyroidism (acquired) E03.9 Active 482141490 Problem 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 Active 16457620 Problem Dementia with behavioral disturbance, unspecified dementia type F03.91 Active 5913120911871 Problem 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 Active 858553058 ALLERGIES No Information ENCOUNTERS Encounter Location Date Diagnosis [facility], [place] [address] [facility] [id number] [address] Mar, Anxiety F41.9 ; 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 and Dementia with behavioral disturbance, unspecified dementia type F03.91 [place] [id number] [address] Mar, [place] [id number] [place] [address] Mar, Diabetes E11.9 ; Hypothyroidism (acquired) E03.9 ; Hypertension I10 and Type 2 diabetes mellitus with diabetic neuropathy, 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 [place] [id number] [place] [address] Jan, [place] [id number] [place] [address] Dec, Anxiety F41.9 and 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 [place] [id number] [place] [address] November, [place] [id number] [place] [address] November, Chronic cough R05 and Cardiomegaly I51.7 [place] [id number] [place] [address] Oct, Medicare annual wellness visit, initial Z00.00 [...] seizures R56.1 and Encounter for immunization Z23 [place] [id number] [place] [address] Sep, [place] [id number] [place] [address] Jul, [place] [id number] [place] [address] Jul, [place] [id number] [place] [address] Jun, Anxiety F41.9 and 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 [place] [id number] [place] [address] Jun, Bronchitis J40 and Bilateral hearing loss, unspecified hearing loss type H91.93 [place] [address] [address] Jun, [place] [address] [address] Apr, [place] [address] [address] Apr, Encounter for immunization Z23 and Left breast mass N63.20 [place] [address] [address] 16 Apr, 2017 [place] [id number] [place] [address] Mar, CVA (cerebral vascular accident) I63.9 ; Hypertension I10 ; 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 ; Type 2 diabetes mellitus with diabetic neuropathy, 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 and Left breast mass N63 [place] [id number] [place] [address] Mar, Mild episode of recurrent major depressive disorder F33.0 and Anxiety F41.9 [place] [id number] [place] [address] Mar, Breast mass, left N63 [place] [id number] [place] [address] Mar, Breast mass, left N63 [place] [id number] [place] [address] Feb, [place] [address] [address] Feb, [facility], [place] [id number] [address] Feb, [facility], [place] [id number] [address] Feb, [facility], [place] [id number] [place] [address] Feb, Onychomycosis B35.1 and Type 2 diabetes mellitus with complication E11.8 [place] [id number] [place] [address] Jan, Mild episode of recurrent major depressive disorder F33.0 and Anxiety F41.9 [place] [address] [address] Jan, [place] [id number] [place] [address] Dec, Onychomycosis due to dermatophyte B35.1 ; 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 ; Type 2 diabetes mellitus with diabetic neuropathy, 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 ; Falls frequently R29.6 ; Neuropathy G62.9 ; Dementia with behavioral disturbance, unspecified dementia type F03.91 ; Hypothyroidism (acquired) E03.9 and Left hand pain M79.642 [place] [address] [address] Dec, [place] [address] [address] Dec, Hypothyroidism (acquired) E03.9 [place] [id number] [place] [address] Dec, 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 [place] [address] [address] November, Hypothyroidism (acquired) E03.9 [place] [id number] [place] [address] Oct, [place] [address] [address] Oct, 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 [place] [id number] [place] [address] Oct, [place] [address] [address] Oct, Dysuria R30.0 ; 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 ; Bilateral hearing loss, unspecified hearing loss type H91.93 and 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 [place] [address] [address] Sep, [facility] [address] [address] Sep, Open wound of right great toe, initial encounter S91.101A [place] [address] [address] Sep, Breast mass, left N63 ; Non-insulin dependent type 2 diabetes mellitus E11.9 and Vascular dementia without behavioral disturbance F01.50 [place] [id number] [place] [address] Sep, [place] [address] [address] Jul, [place] [id number] [place] [address] Jul, Diabetes E11.9 ; Diaper dermatitis L22 ; Candidiasis of skin and nail B37.2 ; Neuropathy G62.9 ; Status post stroke Z86.73 ; Unsteadiness on feet R26.81 and 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 [place] [id number] [place] [address] May, [place] [id number] [place] [address] May, [place] [id number] [place] [address] May, [place] [id number] [place] [address] May, Dementia with behavioral disturbance, unspecified dementia type F03.91 [place] [id number] [place] [address] May, Dementia with behavioral disturbance, unspecified dementia type F03.91 ; Encounter for immunization Z23 and Diabetes E11.9 [place] [address] [address] May, [place] [address] [address] May, Neuropathy G62.9 [place] [id number] [place] [address] May, [place] [address] [address] Apr, Hypothyroidism (acquired) E03.9 [place] [id number] [place] [address] Apr, CVA (cerebral vascular accident) I63.9 ; Left hand weakness M62.81 and Neuropathy G62.9 [place] [id number] [place] [address] Apr, Hypokalemia E87.6 [place] [id number] [place] [address] Apr, Hypokalemia E87.6 [place] [id number] [place] [address] Mar, Diabetes E11.9 ; Edema, unspecified type R60.9 ; Anxiety disorder, unspecified F41.9 ; Pain in left knee M25.562 ; Other chronic pain G89.29 and Status post stroke Z86.73 [place] [id number] [place] [address] 15 Mar, 2016 [place] [id number] [place] [address] 15 Mar, 2016 [place] [address] [address] 07 Mar, 2016 Neuropathy G62.9 [place] [address] [address] Feb, Anorexia R63.0 and Neuropathy G62.9 [place] [address] [address] Jan, Diabetes E11.9 ; Neuropathy G62.9 ; Panic attack F41.0 ; Pain in left knee M25.562 and Hypertension 401.9 [place] [id number] [place] [address] Jan, Weakness R53.1 ; Fatigue, unspecified type R53.83 ; Falling episodes R29.6 and Neuropathy G62.9 [place] [id number] [place] [address] Jan, Pain in left knee M25.562 [place] [id number] [place] [address] Jan, [place] [address] [address] Jan, [place] [id number] [place] [address] Jan, [place] [id number] [place] [address] Dec, Diabetes E11.9 ; Neuropathy G62.9 and Dementia F03.90 [place] [address] [address] Dec, [facility], [place] [id number] [place] [address] Dec, Neuropathy G62.9 ; Diabetes E11.9 ; Anxiety F41.9 and Constipation, unspecified constipation type K59.00 [facility], [place] [id number] [place] [address] Dec, [facility], [place] [id number] [place] [address] Dec, Anxiety F41.9 [facility], [place] [id number] [place] [address] November, [facility], [place] [id number] [place] [address] November, Pain in left knee M25.562 ; Other chronic pain G89.29 ; Diabetes E11.9 and Left eye pain H57.12 [facility], [place] [id number] [place] [address] November, [facility], [place] [id number] [place] [address] November, Hearing loss, unspecified laterality H91.90 [facility], [place] [id number] [place] [address] November, [facility], [place] [id number] [place] [address] November, [facility], [place] [id number] [place] [address] November, Pain in right knee M25.561 [facility], [place] [id number] [place] [address] November, [facility], [place] [id number] [place] [address] Oct, [facility], [place] [id number] [place] [address] Oct, [facility], [place] [address] [address] Oct, Edema of left lower extremity R60.0 ; Diabetes E11.9 ; 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 I63.39 and Anxiety disorder, unspecified F41.9 [facility], [place] [id number] [place] [address] Oct, Panic attack F41.0 [facility], [place] [id number] [place] [address] Oct, [facility], [place] [id number] [place] [address] Oct, CVA (cerebral vascular accident) I63.9 [place] [id number] [place] [address] Oct, [place] [id number] [place] [address] Oct, Diabetes E11.9 ; Hypertension I10 and Dementia F03.90 [place] [id number] [place] [address] Sep, [facility], [place] [id number] [place] [address] Sep, [facility], [place] [id number] [place] [address] Sep, Diabetes E11.9 ; 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 ; Onychomycosis B35.1 and Fatigue R53.83 [facility], [place] [address] [address] Aug, [facility], [place] [id number] [place] [address] Aug, [facility], [place] [id number] [place] [address] Jul, [facility], [place] [address] [address] Jul, [facility], [place] [id number] [place] [address] Jun, 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 [facility], [place] [id number] [place] [address] Jun, Anxiety disorder, unspecified F41.9 and Major depressive disorder, single episode, moderate F32.1 [facility], [place] [id number] [place] [address] Jun, [facility], [place] [id number] [place] [address] Jun, [facility], [place] [id number] [place] [address] May, Left knee pain M25.562 [facility], [place] [id number] [place] [address] May, [facility], [place] [id number] [place] [address] May, [facility], [place] [id number] [place] [address] May, [facility], [place] [id number] [address] May, Hypertension I10 ; Diabetes E11.9 and Depression F32.9 [facility], [place] [id number] [address] May, [facility], [place] [id number] [place] [address] Apr, Left knee pain M25.562 ; Type 2 diabetes mellitus with complication E11.8 and Encounter for immunization Z23 [facility], [place] [id number] [address] Apr, [facility], [place] [id number] [address] Apr, [facility], [place] [address] [address] Mar, [facility], [place] [address] [address] Mar, Silvestre stanley 727.51 [facility], [place] [id number] [address] Mar, [facility], [place] [id number] [address] Mar, [facility], [place] [id number] [place] [address] Mar, [facility], [place] [address] [address] Feb, [facility], [place] [id number] [place] [address] Feb, [facility], [place] [address] [address] Feb, Hypertension 401.9 and Diabetes 250.00 [facility], [place] [address] [address] Jan, [facility], [place] [address] [address] Jan, Diabetes 250.00 [facility], [place] [id number] [address] Jan, [facility], [place] [id number] [address] Jan, [facility], [place] [address] [address] Dec, Diabetes 250.00 and Forgetfulness 780.99 [facility], [place] [address] [address] Dec, [facility], [place] [id number] [address] Dec, Diabetes mellitus 250.00 [facility], [place] [id number] [place] [address] Dec, [facility], [place] [id number] [address] Dec, [facility], [place] [id number] [address] Dec, [facility], [place] [id number] [address] Dec, Diabetes 250.00 and Dysthymia 300.4 [facility], [place] [id number] [address] 15 Dec, 2014 [facility], [place] [id number] [address] Dec, Grief 309.0 and Diabetes mellitus 250.00 [facility], [place] [id number] [address] Oct, [facility], [place] [id number] [place] [address] Oct, [facility], [place] [id number] [address] Jul, [facility], [place] [id number] [address] Jul, [facility], [place] [id number] [address] Jul, [facility], [place] [address] [place] [address] Jul, [facility], [place] [id number] [address] Jul, [facility], [place] [id number] [address] May, [facility] [place] [facility] [address] [id number] [place] [address] May, [facility] [place] [facility] [address] [id number] [place] [address] Apr, [facility] [place] [facility] [address] [id number] [place] [address] Apr, [facility] [place] [facility] [address] [id number] [place] [address] Mar, [facility] [place] [facility] [address] [id number] [place] [address] Mar, [facility] [place] [facility] [address] [id number] [place] [address] Feb, [facility] [place] [facility] [address] [id number] [place] [address] Feb, [facility] [place] [facility] [address] [id number] [place] [address] Feb, [facility] [place] [facility] [address] [id number] [place] [address] Feb, [facility] [place] [facility] [address] [id number] [place] [address] Feb, [facility] [place] [facility] [address] [id number] [place] [address] Feb, [facility] [place] [facility] [address] [id number] [place] [address] November, [facility] [place] [facility] [address] [id number] [place] [address] November, [facility] [place] [facility] [address] [id number] [place] [address] Sep, [facility] [place] [facility] [address] [id number] [place] [address] Sep, [facility] [place] [facility] [address] [id number] [place] [address] Sep, [facility] [place] [facility] [address] [id number] [place] [address] Sep, [facility] [place] [facility] [address] [id number] [place] [address] Sep, [facility] [place] [facility] [address] [id number] [place] [address] Sep, [facility] [place] [facility] [address] [id number] [place] [address] Sep, [facility] [place] [facility] [address] [id number] [place] [address] Sep, [facility] [place] [facility] [address] [id number] [place] [address] Aug, [facility] [place] [facility] [address] [id number] [place] [address] Aug, [facility] [place] [facility] [address] [id number] [place] [address] Jul, [facility] [place] [facility] [address] [id number] [place] [address] Jul, [facility] [place] [facility] [address] [id number] [place] [address] Jul, [facility] [place] [facility] [address] [id number] [place] [address] Jul, [facility] [place] [facility] [address] [id number] [place] [address] Jun, [facility] [place] [facility] [address] [id number] [place] [address] Jun, [facility] [place] [facility] [address] [id number] [place] [address] May, [facility] [place] [facility] [address] [id number] [place] [address] May, [facility] [place] [facility] [address] [id number] [place] [address] May, [facility] [place] [facility] [address] [id number] [place] [address] May, [facility] [place] [facility] [address] [id number] [place] [address] May, [facility] [place] [facility] [address] [id number] [place] [address] May, [facility] [place] [facility] [address] [id number] [place] [address] Apr, [facility] [place] [facility] [address] [id number] [place] [address] Apr, [facility] [place] [facility] [address] [id number] [place] [address] Apr, [facility] [place] [facility] [address] [id number] [place] [address] Apr, [facility] [place] [facility] [address] [id number] [place] [address] Mar, [facility] [place] [facility] [address] [id number] [place] [address] Mar, [facility] [place] [facility] [address] [id number] [place] [address] Jan, [facility] [place] [facility] [address] [id number] [place] [address] Jan, [facility] [place] [facility] [address] [id number] [place] [address] Jan, [facility] [place] [facility] [address] [id number] [place] [address] November, [facility] [place] [facility] [address] [id number] [place] [address] November, [facility] [place] [facility] [address] [id number] [place] [address] November, [facility] [place] [facility] [address] [id number] [place] [address] November, [facility] [place] [facility] [address] [id number] [place] [address] Aug, [facility] [place] [facility] [address] [id number] [place] [address] Jul, [facility] [place] [facility] [address] [id number] [place] [address] Jul, [facility] [place] [facility] [address] [id number] [place] [address] Jul, [facility] [place] [facility] [address] [id number] [place] [address] Jun, [facility] [place] [facility] [address] [id number] [place] [address] Jun, [facility] [place] [facility] [address] [id number] [place] [address] May, [facility] [place] [facility] [address] [id number] [place] [address] May, [facility] [place] [facility] [address] [id number] [place] [address] Apr, [facility] [place] [facility] [address] [id number] [place] [address] Apr, [facility] [place] [facility] [address] [id number] [place] [address] Apr, [facility] [place] [facility] [address] [id number] [place] [address] Apr, [facility] [place] [facility] [address] [id number] [place] [address] Apr, [facility] [place] [facility] [address] [id number] [place] [address] Apr, [facility] [place] [facility] [address] [id number] [place] [address] Apr, [facility] [address] [id number] [place] [address] Apr, [facility] [place] [facility] [address] [id number] [place] [address] Apr, [facility] [address] [id number] [place] [address] Mar, [facility] [place] [facility] [address] [id number] [place] [address] Feb, [facility] [address] [id number] [place] [address] November, [facility] [address] [id number] [place] [address] November, [facility] [address] [id number] [place] [address] November, [facility] [address] [id number] [place] [address] November, [facility] [address] [id number] [place] [address] Jun, [facility] [address] [id number] [place] [address] Jun, [facility] [place] [facility] [address] [id number] [place] [address] May, [facility] [place] [facility] [address] [id number] [place] [address] May, [facility] [place] [facility] [address] [id number] [place] [address] Apr, [facility] [place] [facility] [address] [id number] [place] [address] Apr, [facility] [place] [facility] [address] [id number] [place] [address] May, [facility] [place] [address] [facility] [id number] [place] [address] Apr, [facility] [place] [address] [facility] [id number] [place] [address] Apr, [facility] [place] [address] [facility] [id number] [place] [address] Apr, [facility] [place] [address] [facility] [id number] [place] [address] Apr, IMMUNIZATIONS No Known Immunizations SOCIAL HISTORY Never Assessed REASON FOR VISIT Medication Refills PLAN OF CARE VITAL SIGNS MEDICATIONS No [...] Hospitalization History Post Stroke pt went to [facility] and then [facility] 10/15/15 Hospitalization History Hypotension, Wander ateral leg weakness--Via [facility] 01/15/16 Hospitalization History hypertension/chest pain 03/2017
--- OUTSIDE RECORDS SUMMARY | 2023-03-21 11:27 | XMS REPORT ---
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 02602105 Problem Bilateral hearing loss, unspecified hearing loss type H91.93 Active 46245182 Problem 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 Active 79444381 1 Problem Left-sided muscle weakness M62.81 Active 176790741 Problem SNHL (sensory-neural hearing loss), 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 Active 234859018 Problem Panic attack F41.0 Active 296924060 Problem Other chronic pain G89.29 Active 03357 001 Problem History of cerebrovascular accident with hemiparesis or hemiplegia Z86.73 Active 257185245 Problem Hypertension I10 Active 39681260 Problem Dementia with behavioral disturbance, unspecified dementia type F03.91 Active 8909542591328 Problem 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 Active 268770176300 Problem Anxiety F41.9 Active 09019699 Problem Vascular dementia without behavioral disturbance F01.50 Active 525382661 Problem Hypothyroidism (acquired) E03.9 Active 795964895 Problem 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 [address] [facility] [facility] [id number] [address] Mar, [facility] [address] [id number] [address] Jan, [place] [id number] [place] [address] Dec, Anxiety F41.9 and 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 [place] [id number] [place] [address] November, [place] [address] [address] November, Chronic cough R05 and Cardiomegaly I51.7 [place] [address] [address] Oct, Medicare annual wellness visit, initial Z00.00 [...] seizures R56.1 and Encounter for immunization Z23 [place] [address] [address] Sep, [place] [address] [address] Jul, [place] [address] [address] Jul, [place] [address] [address] Jun, Anxiety F41.9 and 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 [place] [id number] [place] [address] Jun, Bronchitis J40 and Bilateral hearing loss, unspecified hearing loss type H91.93 [place] [address] [place] [address] Jun, 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 ; Type 2 diabetes mellitus with diabetic neuropathy, 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 and Left breast mass N63 [place] [id number] [place] [address] Mar, Mild episode of recurrent major depressive disorder F33.0 and Anxiety F41.9 [place] [id number] [place] [address] Mar, Breast mass, left N63 [place] [id number] [place] [address] Mar, Breast mass, left N63 [place] [id number] [place] [address] Feb, [place] [id number] [place] [address] Feb, [facility] [id number] [place] [address] Feb, [place] [id number] [place] [address] Feb, [facility] [id number] [place] [address] Feb, Onychomycosis B35.1 and Type 2 diabetes mellitus with complication E11.8 [place] [id number] [place] [address] Jan, Mild episode of recurrent major depressive disorder F33.0 and Anxiety F41.9 [place] [id number] [place] [address] Jan, [place] [id number] [place] [address] Dec, Onychomycosis due to dermatophyte B35.1 ; 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 ; Type 2 diabetes mellitus with diabetic neuropathy, 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 ; Falls frequently R29.6 ; Neuropathy G62.9 ; Dementia with behavioral disturbance, unspecified dementia type F03.91 ; Hypothyroidism (acquired) E03.9 and Left hand pain M79.642 [place] [id number] [place] [address] Dec, [place] [id number] [place] [address] Dec, Hypothyroidism (acquired) E03.9 [place] [id number] [place] [address] Dec, 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 [place] [id number] [place] [address] November, Hypothyroidism (acquired) E03.9 [place] [id number] [place] [address] Oct, [place] [id number] [place] [address] Oct, 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 [id number] [place] [address] Sep, [facility] [id number] [place] [address] Sep, Open wound of right great toe, initial encounter S91.101A [place] [address] [address] Sep, Breast mass, left N63 ; Non-insulin dependent type 2 diabetes mellitus E11.9 and Vascular dementia without behavioral disturbance F01.50 [place] [id number] [place] [address] Sep, [place] [address] [address] Jul, [place] [id number] [place] [address] Jul, Diabetes E11.9 ; Diaper dermatitis L22 ; Candidiasis of skin and nail B37.2 ; Neuropathy G62.9 ; Status post stroke Z86.73 ; Unsteadiness on feet R26.81 and 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 [place] [id number] [place] [address] May, [place] [id number] [place] [address] May, [place] [id number] [place] [address] May, [place] [id number] [place] [address] May, Dementia with behavioral disturbance, unspecified dementia type F03.91 [place] [id number] [place] [address] May, Dementia with behavioral disturbance, unspecified dementia type F03.91 ; Encounter for immunization Z23 and Diabetes E11.9 [place] [id number] [place] [address] May, [place] [id number] [place] [address] May, Neuropathy G62.9 [place] [address] [address] May, [place] [address] [address] Apr, Hypothyroidism (acquired) E03.9 [place] [id number] [place] [address] Apr, CVA (cerebral vascular accident) I63.9 ; Left hand weakness M62.81 and Neuropathy G62.9 [place] [address] [address] Apr, Hypokalemia E87.6 [place] [id number] [place] [address] Apr, Hypokalemia E87.6 [place] [id number] [place] [address] Mar, Diabetes E11.9 ; Edema, unspecified type R60.9 ; Anxiety disorder, unspecified F41.9 ; Pain in left knee M25.562 ; Other chronic pain G89.29 and Status post stroke Z86.73 [place] [id number] [place] [address] 15 Mar, 2016 [place] [id number] [place] [address] 15 Mar, 2016 [place] [id number] [place] [address] 07 Mar, 2016 Neuropathy G62.9 [place] [id number] [place] [address] Feb, Anorexia R63.0 and Neuropathy G62.9 [place] [address] [address] Jan, Diabetes E11.9 ; Neuropathy G62.9 ; Panic attack F41.0 ; Pain in left knee M25.562 and Hypertension 401.9 [place] [address] [address] Jan, Weakness R53.1 ; Fatigue, unspecified type R53.83 ; Falling episodes R29.6 and Neuropathy G62.9 [place] [address] [address] Jan, Pain in left knee M25.562 [place] [address] [address] Jan, [place] [address] [address] Jan, [place] [address] [address] Jan, [place] [address] [address] Dec, Diabetes E11.9 ; Neuropathy G62.9 and Dementia F03.90 [place] [address] [address] Dec, [place] [address] [address] Dec, Neuropathy G62.9 ; Diabetes E11.9 ; Anxiety F41.9 and Constipation, unspecified constipation type K59.00 [facility] [id number] [place] [address] Dec, [place] [id number] [place] [address] Dec, Anxiety F41.9 [facility] [id number] [place] [address] November, [facility] [address] [address] November, Pain in left knee M25.562 ; Other chronic pain G89.29 ; Diabetes E11.9 and Left eye pain H57.12 [facility] [address] [address] November, [facility] [id number] [place] [address] November, Hearing loss, unspecified laterality H91.90 [place] [id number] [place] [address] November, [facility] [id number] [place] [address] November, [facility] [id number] [place] [address] November, Pain in right knee M25.561 [place] [id number] [place] [address] November, [facility] [id number] [place] [address] Oct, [facility] [id number] [place] [address] Oct, [facility] [id number] [place] [address] Oct, Edema of left lower extremity R60.0 ; Diabetes E11.9 ; 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 I63.39 and Anxiety disorder, unspecified F41.9 [facility] [id number] [place] [address] 14 Oct, 2015 Panic attack F41.0 [facility] [id number] [place] [address] 14 Oct, 2015 [facility] [address], [place] [address] Oct, CVA (cerebral vascular accident) I63.9 [facility] [id number] [place] [address] 13 Oct, 2015 [place] [id number] [place] [address] Oct, Diabetes E11.9 ; Hypertension I10 and Dementia F03.90 [place] [id number] [place] [address] Sep, [place] [id number] [place] [address] Sep, [place] [id number] [place] [address] Sep, Diabetes E11.9 ; 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 ; Onychomycosis B35.1 and Fatigue R53.83 [place] [id number] [place] [address] Aug, [place] [id number] [place] [address] Aug, [place] [id number] [place] [address] Jul, [place] [id number] [place] [address] Jul, [place] [id number] [place] [address] Jun, 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 [id number] [place] [address] Jun, [facility] [id number] [place] [address] May, Left knee pain M25.562 [facility] [id number] [place] [address] May, [facility] [id number] [place] [address] May, [facility] [id number] [place] [address] May, [facility] [id number] [place] [address] May, Hypertension I10 ; Diabetes E11.9 and Depression F32.9 [facility] [id number] [place] [address] May, [facility] [id number] [place] [address] Apr, Left knee pain M25.562 ; Type 2 diabetes mellitus with complication E11.8 and Encounter for immunization Z23 [facility] [id number] [place] [address] Apr, [facility] [id number] [place] [address] Apr, [facility] [id number] [place] [address] Mar, [facility] [id number] [place] [address] Mar, Silvestre stanley 727.51 [facility] [id number] [place] [address] Mar, [facility] [address] [place] [address] Mar, [facility] [address], [place] [address] Mar, [facility] [address], [place] [address] Feb, [facility] [address], [place] [address] Feb, [facility] [address], [place] [address] Feb, Hypertension 401.9 and Diabetes 250.00 [facility] [address] [place] [address] Jan, [facility] [address], [place] [address] Jan, Diabetes 250.00 [facility] [address], [place] [address] Jan, [facility] [address], [place] [address] Jan, [facility] [address], [place] [address] Dec, Diabetes 250.00 and Forgetfulness 780.99 [facility] [address], [place] [address] Dec, [facility] [id number], [place] [address] Dec, Diabetes mellitus 250.00 [facility] [id number], [place] [address] Dec, [facility] [address], [place] [address] Dec, [facility] [id number], [place] [address] Dec, [facility] [address] [facility] [id number] [place] [address] 16 Dec, 2014 Diabetes 250.00 and Dysthymia 300.4 [facility] [address] [id number] [place] [address] 15 Dec, 2014 [facility] [id number] [address] 09 Dec, 2014 Grief 309.0 and Diabetes mellitus 250.00 [facility] [address] [id number] [place] [address] 14 Oct, 2014 [facility] [address] [facility] [id number] [place] [address] Oct, [facility] [address] [facility] [id number] [place] [address] Jul, [facility] [address] [facility] [facility] [id number] [place] [address] Jul, [facility] [address] [facility] [id number] [place] [address] Jul, [facility] [id number] [address] Jul, [facility] [id number] [address] Jul, [facility] [id number] [address] May, [facility] [address] [facility] [id number] [place] [address] May, [facility] [address] [facility] [id number] [place] [address] Apr, [facility] [address] [facility] [id number] [place] [address] Apr, [facility] [address] [facility] [id number] [address] Mar, [facility] [place] [facility] [address] [id number] [place] [address] Mar, [facility] [place] [facility] [address] [id number] [place] [address] Feb, [facility] [place] [facility] [address] [id number] [place] [address] Feb, [facility] [place] [facility] [address] [id number] [place] [address] Feb, [facility] [place] [facility] [address] [id number] [place] [address] Feb, [facility] [place] [facility] [address] [id number] [place] [address] Feb, [facility] [place] [facility] [address] [id number] [place] [address] Feb, [facility] [place] [facility] [address] [id number] [place] [address] November, [facility] [place] [facility] [address] [id number] [place] [address] November, [facility] [place] [facility] [address] [id number] [place] [address] Sep, [facility] [place] [facility] [address] [id number] [place] [address] Sep, [facility] [place] [facility] [address] [id number] [place] [address] Sep, [facility] [place] [facility] [address] [id number] [place] [address] Sep, [facility] [place] [facility] [address] [id number] [place] [address] Sep, [facility] [place] [facility] [address] [id number] [place] [address] Sep, [facility] [place] [facility] [address] [id number] [place] [address] Sep, [facility] [place] [facility] [address] [id number] [place] [address] Sep, [facility] [place] [facility] [address] [id number] [place] [address] Aug, [facility] [place] [facility] [address] [id number] [place] [address] Aug, [facility] [place] [facility] [address] [id number] [place] [address] Jul, [facility] [place] [facility] [address] [id number] [place] [address] Jul, [facility] [place] [facility] [address] [id number] [place] [address] Jul, [facility] [place] [facility] [address] [id number] [place] [address] Jul, [facility] [place] [facility] [address] [id number] [place] [address] Jun, [facility] [place] [facility] [address] [id number] [place] [address] Jun, [facility] [place] [facility] [address] [id number] [place] [address] May, [facility] [place] [facility] [address] [id number], [place] [address] May, [facility] [place] [facility] [address] [id number], [place] [address] May, [facility] [place] [facility] [address] [id number] [place] [address] May, [facility] [place] [facility] [address] [id number] [place] [address] May, [facility] [place] [facility] [address] [id number] [place] [address] May, [facility] [place] [facility] [address] [id number] [place] [address] 17 Apr, 2013 [facility] [address] [id number] [place] [address] 17 Apr, 2013 [facility] [address] [id number] [place] [address] 16 Apr, 2013 [facility] [address] [id number] [place] [address] 16 Apr, 2013 [facility] [address] [id number] [place] [address] 27 Mar, 2013 [facility] [address] [id number] [place] [address] 27 Mar, 2013 [facility] [address] [id number] [place] [address] Jan, [facility] [address] [id number] [place] [address] Jan, [facility] [address] [id number] [place] [address] Jan, [facility] [address] [id number] [place] [address] November, [facility] [address] [id number] [place] [address] November, [facility] [address] [id number] [place] [address] November, [facility] [address] [id number] [place] [address] November, [facility] [address] [id number] [place] [address] Aug, [facility] [address] [id number] [place] [address] Jul, [facility] [address] [id number] [place] [address] Jul, [facility] [place] [facility] [address] [id number] [place] [address] Jul, [facility] [place] [facility] [address] [id number] [place] [address] Jun, [facility] [place] [facility] [address] [id number] [place] [address] Jun, [facility] [place] [facility] [address] [id number] [place] [address] May, [facility] [place] [facility] [address] [id number] [place] [address] May, [facility] [place] [facility] [address] [id number] [place] [address] Apr, [facility] [place] [facility] [address] [id number] [place] [address] Apr, [facility] [place] [facility] [address] [id number] [place] [address] Apr, [facility] [place] [facility] [address] [id number] [place] [address] Apr, [facility] [place] [facility] [address] [id number], [place] [address] Apr, [facility] [place] [facility] [address] [id number], [place] [address] Apr, [facility] [place] [facility] [address] [id number], [place] [address] Apr, [facility] [place] [facility] [address] [id number] [place] [address] Apr, [facility] [place] [facility] [address] [id number], [place] [address] Apr, [facility] [place] [facility] [address] [id number] [place] [address] Mar, [facility] [place] [facility] [address] [facility] [id number] [place] [address] Feb, [facility] [address] [facility] [facility] [id number] [place] [address] November, [facility] [address] [facility] [facility] [id number] [place] [address] November, [facility] [address] [id number] [place] [address] November, [facility] [address] [facility] [facility] [id number] [place] [address] November, [facility] [address] [facility] [id number] [place] [address] Jun, [facility] [address] [facility] [id number] [place] [address] Jun, [facility] [id number] [place] [address] May, [facility] [address] [facility] [facility] [id number] [place] [address] May, [facility] [id number] [place] [address] Apr, [facility] [address] [id number] [address] Apr, [facility] [id number], [place] [address] May, [facility] [address] [facility] [facility] [id number], [place] [address] Apr, [facility] [address] [facility] [id number], [place] [address] Apr, [facility] [address] [facility] [id number], [place] [address] Apr, [facility] [address] [id number], [place] [address] Apr, IMMUNIZATIONS No Known Immunizations SOCIAL HISTORY Never Assessed REASON FOR VISIT f/uMaris MCNEIL PLAN OF CARE Activity Details VITAL SIGNS Height 62 in 2018-01-06 Weight 162.8 lbs 2018-01-06 Heart Rate 80 bpm 2018-01-06 Respiratory Rate 18 2018-01-06 BMI 29.77 kg/m2 2018-01-06 Blood pressure systolic 102 mmHg Blood pressure diastolic 56 mmHg 2017-12 MEDICATIONS Medication Instructions Dosage Frequency Start Date End Date Duration Status Wheelchair - as directed Jan, Active BusPIRone HCl 10 MG Orally Twice a day 1 tablet 12h 90 days Active Levetiracetam 500 MG Orally Twice a day 1 tablet 12h 90 Active Tylenol 325 MG Orally every 6 hrs 2 tablet as needed 6h Aug, Active Aricept 5 MG TAKE ONE TABLET BY MOUTH ONCE DAILY AT BEDTIME 30 Active Atorvastatin Calcium 40 MG TAKE ONE TABLET BY MOUTH ONCE DAILY AT BEDTIME 90 Active Bydureon 2 MG Subcutaneous once weekly Inject 2mg 28 Active MetFORMIN HCl ER 750 MG TAKE ONE TABLET BY MOUTH ONCE DAILY WITH A MEAL 90 Active Gabapentin 300 MG TAKE ONE CAPSULE BY MOUTH THREE TIMES DAILY 30 Active Sertraline HCl 100 MG Orally Once a day 1.5 tablet 24h 90 days Active Carvedilol 3.125 MG TAKE ONE TABLET BY MOUTH TWICE DAILY 30 Active Test strips Test Strips ICD10- E11.9 2 times a day test blood sugar 12h Oct, Active Blood Glucose Monitor System N/A test blood sugar 24h Jul, Active Norvasc 10 MG Orally Once a day 1 tablet 24h Active Levothyroxine Sodium 50 MCG TAKE ONE TABLET BY MOUTH ONCE DAILY IN THE MORNING ON AN EMPTY STOMACH 30 Active MetFORMIN HCl ER 500 MG TAKE ONE TABLET BY MOUTH TWICE DAILY WITH MEALS 90 Active RESULTS No Results PROCEDURES Procedure Date Ordered Result Body Site [facility] VISIT ESTABLISHED PATIENT January 06, 2018 INSTRUCTIONS MEDICATIONS ADMINISTERED No Known [...] Hospitalization History Post Stroke pt went to [facility] and then [facility] 10/15/15 Hospitalization History Hypotension, Wander ateral leg weakness--Via [facility] 01/15/16 Hospitalization History hypertension/chest pain 03/2017
--- OUTSIDE RECORDS SUMMARY | 2023-03-21 11:28 | XMS REPORT ---
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 Active 71942638 1 Problem Type 2 diabetes mellitus with diabetic neuropathy, 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 Active 13240655 Problem Diabetes E11.9 Active 092795388 Problem History of cerebrovascular accident with hemiparesis or hemiplegia Z86.73 Active 890014546 Problem Cardiomegaly I51.7 Active 1574772 Problem SNHL (sensory-neural hearing loss), 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 Active 354762049 Problem Bilateral hearing loss, unspecified hearing loss type H91.93 Active 46139464 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 67446178 Problem Left-sided muscle weakness M62.81 Active 841614003 Problem Other chronic pain G89.29 Active 59145 001 Problem Anxiety F41.9 Active 91341972 Problem Hypertension I10 Active 69585540 Problem Panic attack F41.0 Active 577744817 Problem 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 Active 538995060972 Problem Vascular dementia without behavioral disturbance F01.50 Active 628236141 Problem Hypothyroidism (acquired) E03.9 Active 196888520 Problem 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 [address] [facility] [id number] [address] Apr, 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 and Dementia with behavioral disturbance, unspecified dementia type F03.91 [place] [id number] [place] [address] Mar, [place] [id number] [place] [address] Mar, Diabetes E11.9 ; Hypothyroidism (acquired) E03.9 ; Hypertension I10 and Type 2 diabetes mellitus with diabetic neuropathy, 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 [place] [id number] [place] [address] Jan, [place] [id number] [place] [address] Dec, Anxiety F41.9 and 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 [place] [address] [place] [address] November, [place] [address] [place] [address] November, Chronic cough R05 and Cardiomegaly I51.7 [place] [address] [place] [address] Oct, Medicare annual wellness visit, initial Z00.00 [...] seizures R56.1 and Encounter for immunization Z23 [place] [id number] [place] [address] Sep, [place] [id number] [place] [address] Jul, [place] [id number] [place] [address] Jul, [place] [address] [address] Jun, Anxiety F41.9 and 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 [place] [address] [address] Jun, Bronchitis J40 and Bilateral hearing loss, unspecified hearing loss type H91.93 [place] [address] [address] Jun, [place] [id number] [place] [address] Apr, [place] [address] [address] Apr, Encounter for immunization Z23 and Left breast mass N63.20 [place] [id number] [place] [address] Apr, [place] [id number] [place] [address] Mar, CVA (cerebral vascular accident) I63.9 ; Hypertension I10 ; 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 [address] [place] [address] Mar, Breast mass, left N63 [facility] [address] [address] Feb, [facility] [id number] [place] [address] Feb, [facility] [address] [place] [address] Feb, [place] [id number] [place] [address] Feb, [place] [id number] [place] [address] Feb, Onychomycosis B35.1 and Type 2 diabetes mellitus with complication E11.8 [place] [id number] [place] [address] Jan, Mild episode of recurrent major depressive disorder F33.0 and Anxiety F41.9 [place] [id number] [place] [address] Jan, [place] [address] [place] [address] Dec, Onychomycosis due to dermatophyte B35.1 ; 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 [address] [address] Dec, [place] [address] [place] [address] Dec, Hypothyroidism (acquired) E03.9 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 [id number] [place] [address] November, Hypothyroidism (acquired) E03.9 [facility] [id number] [place] [address] Oct, 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 [id number] [place] [address] Sep, [facility] [id number] [place] [address] Sep, Open wound of right great toe, initial encounter S91.101A [facility] [id number] [place] [address] Sep, Breast mass, left N63 ; Non-insulin dependent type 2 diabetes mellitus E11.9 and Vascular dementia without behavioral disturbance F01.50 [facility] [id number] [place] [address] Sep, [facility] [id number] [place] [address] Jul, [facility] [id number] [place] [address] Jul, Diabetes E11.9 ; Diaper dermatitis L22 ; Candidiasis of skin and nail B37.2 ; Neuropathy G62.9 ; Status post stroke Z86.73 ; Unsteadiness on feet R26.81 and 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 [place] [id number] [place] [address] May, [place] [address] [address] May, [place] [address] [address] May, [place] [address] [address] May, Dementia with behavioral disturbance, unspecified dementia type F03.91 [place] [address] [address] May, Dementia with behavioral disturbance, unspecified dementia type F03.91 ; Encounter for immunization Z23 and Diabetes E11.9 [place] [address] [address] May, [place] [address] [address] May, Neuropathy G62.9 [place] [address] [address] May, [place] [address] [address] Apr, Hypothyroidism (acquired) E03.9 [place] [address] [address] Apr, CVA (cerebral vascular accident) I63.9 ; Left hand weakness M62.81 and Neuropathy G62.9 [place] [address] [address] Apr, Hypokalemia E87.6 [place] [id number] [place] [address] Apr, Hypokalemia E87.6 [place] [id number] [place] [address] Mar, Diabetes E11.9 ; Edema, unspecified type R60.9 ; Anxiety disorder, unspecified F41.9 ; Pain in left knee M25.562 ; Other chronic pain G89.29 and Status post stroke Z86.73 [place] [id number] [place] [address] Mar, [place] [address] [address] Mar, [place] [id number] [place] [address] Mar, Neuropathy G62.9 [place] [address] [address] Feb, Anorexia R63.0 and Neuropathy G62.9 [place] [id number] [place] [address] Jan, Diabetes E11.9 ; Neuropathy G62.9 ; Panic attack F41.0 ; Pain in left knee M25.562 and Hypertension 401.9 [place] [id number] [place] [address] Jan, Weakness R53.1 ; Fatigue, unspecified type R53.83 ; Falling episodes R29.6 and Neuropathy G62.9 [place] [id number] [place] [address] Jan, Pain in left knee M25.562 [place] [id number] [place] [address] Jan, [place] [id number] [place] [address] Jan, [place] [id number] [place] [address] Jan, [facility] [id number] [place] [address] Dec, Diabetes E11.9 ; Neuropathy G62.[address] [facility] [id number] [place] [address] Dec, [facility] [address] [address] Dec, Neuropathy G62.9 ; Diabetes E11.9 ; Anxiety F41.9 and Constipation, unspecified constipation type K59.00 [place] [id number] [place] [address] Dec, [place] [id number] [place] [address] Dec, Anxiety F41.9 [place] [id number] [place] [address] November, [facility] [id number] [place] [address] November, Pain in left knee M25.562 ; Other chronic pain G89.29 ; Diabetes E11.9 and Left eye pain H57.12 [place] [id number] [place] [address] November, [place] [id number] [place] [address] November, Hearing loss, unspecified laterality H91.90 [facility] [id number] [place] [address] November, [facility] [id number] [place] [address] November, [facility] [id number] [place] [address] November, Pain in right knee M25.561 [place] [id number] [place] [address] November, [place] [id number] [place] [address] Oct, [place] [id number] [place] [address] Oct, [place] [id number] [place] [address] Oct, Edema of left lower extremity R60.0 ; Diabetes E11.9 ; 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 I63.39 and Anxiety disorder, unspecified F41.9 [place] [id number] [place] [address] Oct, Panic attack F41.0 [place] [address] [address] 14 Oct, 2015 [place] [id number] [place] [address] Oct, CVA (cerebral vascular accident) I63.9 [place] [id number] [place] [address] Oct, [place] [id number] [place] [address] Oct, Diabetes E11.9 ; Hypertension I10 and Dementia F03.90 [place] [id number] [place] [address] 30 Sep, 2015 [place] [id number] [place] [address] Sep, [place] [id number] [place] [address] Sep, Diabetes E11.9 ; 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 ; Onychomycosis B35.1 and Fatigue R53.83 [place] [id number] [place] [address] Aug, [facility] [id number] [place] [address] Aug, [facility] [id number] [place] [address] Jul, [facility] [id number] [place] [address] Jul, 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 [id number] [place] [address] Jun, Anxiety disorder, unspecified F41.9 and Major depressive disorder, single episode, moderate F32.1 [facility] [id number] [place] [address] Jun, [facility] [id number] [place] [address] Jun, [facility] [id number] [place] [address] May, Left knee pain M25.562 [facility] [id number] [place] [address] May, [facility] [id number] [place] [address] May, [facility] [address] [place] [address] May, [facility] [id number] [place] [address] May, Hypertension I10 ; Diabetes E11.[address] [facility] [id number] [place] [address] May, [facility] [address] [address] Apr, Left knee pain M25.562 ; Type 2 diabetes mellitus with complication E11.8 and Encounter for immunization Z23 [facility] [address] [address] Apr, [facility] [id number] [place] [address] Apr, [facility] [id number] [place] [address] Mar, [facility] [id number] [place] [address] Mar, Silvestre stanley 727.51 [facility] [id number] [place] [address] Mar, [facility] [id number] [place] [address] Mar, [facility] [id number] [place] [address] Mar, [facility] [id number] [place] [address] Feb, [facility] [address] [address] Feb, [facility] [id number] [place] [address] Feb, Hypertension 401.[address] [facility] [address] [address] Jan, [facility] [id number] [place] [address] Jan, Diabetes 250.00 [facility] [address] [address] Jan, [facility] [id number] [address] Jan, [facility] [address] [address] Dec, Diabetes 250.[address] [facility] [address] [address] Dec, [facility] [id number] [place] [address] Dec, Diabetes mellitus 250.00 [facility] [address] [place] [address] Dec, [facility] [id number] [place] [address] Dec, [facility] [id number] [place] [address] Dec, [facility] [address] [place] [address] Dec, Diabetes 250.[address] [facility] [address] [address] Dec, [facility] [address] [address] Dec, Grief 309.0 and Diabetes mellitus 250.00 [facility] [address] [address] Oct, [facility] [address] [address] Oct, [facility] [address] [address] Jul, [facility] [address] [address] Jul, [facility] [address] [address] Jul, [facility] [place] [facility] [address] [id number] [place] [address] Jul, [facility] [place] [facility] [address] [id number] [place] [address] Jul, [facility] [place] [facility] [address] [id number] [place] [address] May, [facility] [place] [facility] [address] [id number] [place] [address] May, [facility] [place] [facility] [address] [id number] [place] [address] Apr, [facility] [place] [facility] [address] [id number] [place] [address] Apr, [facility] [place] [facility] [address] [id number] [place] [address] Mar, [facility] [place] [facility] [address] [id number] [place] [address] Mar, [facility] [place] [facility] [address] [id number] [place] [address] Feb, [facility] [place] [facility] [address] [id number] [place] [address] Feb, [facility] [place] [facility] [address] [id number] [place] [address] Feb, [facility] [place] [facility] [address] [id number] [place] [address] Feb, [facility] [place] [facility] [address] [id number] [place] [address] Feb, [facility] [place] [facility] [address] [id number] [place] [address] Feb, [facility] [place] [facility] [address] [id number] [place] [address] November, [facility] [place] [facility] [address] [id number] [place] [address] November, [facility] [place] [facility] [address] [id number] [place] [address] Sep, [facility] [place] [facility] [address] [id number] [place] [address] Sep, [facility] [place] [facility] [address] [id number] [place] [address] Sep, [facility] [place] [facility] [address] [id number] [place] [address] Sep, [facility] [place] [facility] [address] [id number] [place] [address] Sep, [facility] [place] [facility] [address] [id number] [place] [address] Sep, [facility] [place] [facility] [address] [id number] [place] [address] Sep, [facility] [place] [facility] [address] [id number] [place] [address] Sep, [facility] [place] [facility] [address] [id number] [place] [address] Aug, [facility] [place] [facility] [address] [id number] [place] [address] Aug, [facility] [place] [facility] [address] [id number] [place] [address] Jul, [facility] [place] [facility] [address] [id number] [place] [address] Jul, [facility] [place] [facility] [address] [id number] [place] [address] Jul, [facility] [place] [facility] [address] [id number] [place] [address] Jul, [facility] [place] [facility] [address] [id number] [place] [address] Jun, [facility] [place] [facility] [address] [id number] [place] [address] Jun, [facility] [place] [facility] [address] [id number] [place] [address] May, [facility] [place] [facility] [address] [id number] [place] [address] May, [facility] [place] [facility] [address] [id number] [place] [address] May, [facility] [place] [facility] [address] [id number] [place] [address] May, [facility] [place] [facility] [address] [id number] [place] [address] May, [facility] [place] [facility] [address] [id number] [place] [address] May, [facility] [place] [facility] [address] [id number] [place] [address] Apr, [facility] [place] [facility] [address] [id number] [place] [address] Apr, [facility] [place] [facility] [address] [id number] [place] [address] Apr, [facility] [place] [facility] [address] [id number] [place] [address] Apr, [facility] [place] [facility] [address] [id number] [place] [address] Mar, [facility] [place] [facility] [address] [id number] [place] [address] Mar, [facility] [place] [facility] [address] [id number] [place] [address] Jan, [facility] [place] [facility] [address] [id number] [place] [address] 17 Jan, 2013 [facility] [place] [facility] [address] [id number] [place] [address] Jan, [facility] [address] [id number] [place] [address] November, [facility] [place] [facility] [address] [id number] [place] [address] November, [facility] [place] [facility] [address] [id number] [place] [address] November, [facility] [place] [facility] [address] [id number] [place] [address] November, [facility] [address] [id number] [place] [address] Aug, [facility] [facility] [address] [id number] [place] [address] Jul, [facility] [place] [facility] [address] [id number] [place] [address] Jul, [facility] [place] [facility] [address] [id number] [place] [address] Jul, [facility] [address] [id number] [place] [address] Jun, [facility] [place] [facility] [address] [id number] [place] [address] Jun, [facility] [place] [facility] [address] [id number] [place] [address] May, [facility] [place] [facility] [address] [id number] [place] [address] May, [facility] [place] [facility] [address] [id number] [place] [address] Apr, [facility] [place] [facility] [address] [id number] [place] [address] Apr, [facility] [place] [facility] [address] [id number] [place] [address] Apr, [facility] [place] [facility] [address] [id number] [place] [address] Apr, [facility] [address] [id number] [place] [address] Apr, [facility] [place] [facility] [address] [id number] [place] [address] Apr, [facility] [address] [id number] [place] [address] Apr, [facility] [facility] [address] [id number] [place] [address] Apr, [facility] [address] [id number] [place] [address] Apr, [facility] [facility] [address] [id number] [place] [address] Mar, [facility] [address] [id number] [place] [address] Feb, [facility] [address] [id number] [place] [address] November, [facility] [facility] [address] [id number] [place] [address] November, [facility] [address] [id number] [place] [address] November, [facility] [address] [id number] [place] [address] November, [facility] [address] [id number] [place] [address] Jun, [facility] [address] [id number] [place] [address] Jun, [facility] [facility] [address] [id number] [place] [address] May, [facility] [address] [id number] [place] [address] May, [facility] [address] [facility] [id number] [address] Apr, [facility] [address] [facility] [id number] [address] Apr, [facility] [address] [facility] [id number] [address] May, [facility] [address] [facility] [id number] [address] Apr, [facility] [address] [id number] [address] Apr, [facility] [address] [id number] [address] Apr, [facility] [address] [facility] [id number] [place] [address] Apr, IMMUNIZATIONS No Known Immunizations SOCIAL HISTORY Never Assessed REASON FOR VISIT Needs referral PLAN OF CARE VITAL SIGNS MEDICATIONS Unknown [...] Hospitalization History Post Stroke pt went to [facility] and then [facility] 10/15/15 Hospitalization History Hypotension, Wander ateral leg weakness--Via [facility] 01/15/16 Hospitalization History hypertension/chest pain 03/2017
--- OUTSIDE RECORDS SUMMARY | 2023-03-21 11:28 | XMS REPORT ---
Author Author Lady SIMMONS Organization [facility] C Address [address] [place] [address] Care Team Providers Care Crystalizer Name Role Phone OMI SIMMONS Unavailable PROBLEMS Type Condition ICD9-CM Code UXO34-NQ Code Onset Dates Condition Status SNOMED Code Problem Panic attack F41.0 Active 737561920 Problem Hypertension I10 Active 70436975 Problem Anxiety F41.9 Active 76513908 Problem Other chronic pain G89.29 Active 41424 001 Problem Dementia with behavioral disturbance, unspecified dementia type F03.91 Active 3199416616778 Problem Hypothyroidism (acquired) E03.9 Active 392731202 Problem Vascular dementia without behavioral disturbance F01.50 Active 836823966 Problem 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 Active 696959092382 Problem Falls frequently R29.6 Active 6062848 02 Problem Type 2 diabetes mellitus with diabetic neuropathy, 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 Active 47716939 Problem 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 Active 88588255 1 Problem Cardiomegaly I51.7 Active 2138328 Problem 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 Active 147561490 Problem Diabetes E11.9 Active 750374940 Problem 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 Active 03607601 Problem History of cerebrovascular accident with hemiparesis or hemiplegia Z86.73 Active 936076093 Problem Bilateral hearing loss, unspecified hearing loss type H91.93 Active 31092641 Problem SNHL (sensory-neural hearing loss), 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 Active 089676664 Problem Left-sided muscle weakness M62.81 Active 589750520 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 73662646 ALLERGIES No Information ENCOUNTERS Encounter Location Date Diagnosis [facility] [address] [id number] [place] [address] 24 Aug, 2019 [facility] [address] [facility] [place] [address] Aug, [facility] [address] [facility] [place] [address] Aug, [facility] [address] [address] Jul, 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.39 ; Type 2 diabetes mellitus with diabetic neuropathy, 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 and Hypertension I10 [facility] [address] [address] May, [facility] [address] [address] Apr, [facility] [address] [address] Mar, Type 2 diabetes mellitus with diabetic neuropathy, 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 ; Hypertension I10 ; Diabetes E11.9 ; Dementia with behavioral disturbance, unspecified dementia type F03.91 ; Type 2 diabetes mellitus with complication, without long-term current use of insulin E11.8 and Neck pain M54.2 [facility] [id number] [place] [address] Mar, Dysuria R30.0 [address] [place] [address] Feb, [facility] [id number] [place] [address] Feb, [facility] [id number] [place] [address] Jan, [facility] [id number] [place] [address] Dec, [facility] [address] [address] Dec, [facility] [id number] [place] [address] Dec, [facility] [address] [address] November, Dental examination Z01.20 and Periodontitis K05.30 [place] [address] [address] November, [place] [address] [address] November, [place] [address] [address] Oct, Encounter for Medicare annual wellness exam [...] hearing loss, unspecified hearing loss type H91.93 [place] [address] [address] Oct, [place] [address] [address] Oct, [place] [address] [address] Sep, [place] [address] [address] Aug, Anxiety F41.9 [place] [address] [address] Aug, Encounter for immunization Z23 [place] [address] [address] Jul, History of cerebrovascular accident with hemiparesis or hemiplegia Z86.73 ; Dementia with behavioral disturbance, unspecified dementia type F03.91 ; Hypothyroidism (acquired) E03.9 ; Type 2 diabetes mellitus with diabetic neuropathy, 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 and 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 [place] [address] [address] Jul, [place] [address] [address] Jul, Type 2 diabetes mellitus with diabetic neuropathy, 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 ; Anxiety F41.9 ; Vascular dementia without behavioral disturbance F01.50 ; 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 ; Onychomycosis of great toe B35.1 ; 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 and Type 2 diabetes mellitus with complication, without long-term current use of insulin E11.8 [place] [address] [address] Jun, Hypertension I10 ; Anxiety F41.9 ; Dementia with behavioral disturbance, unspecified dementia type F03.91 ; 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 ; 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 ; Encounter for immunization Z23 ; Skin lesion of left leg L98.9 ; BMI 28.0-28.9,adult Z68.28 and Other chronic pain G89.29 [place] [address] [address] May, Lymphadenopathy, axillary R59.0 [place] [address] [address] May, [place] [address] [address] Apr, [place] [address] [address] Apr, [place] [address] [address] Apr, [place] [address] [address] Apr, [place] [address] [address] Mar, Anxiety F41.9 ; 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 and Dementia with behavioral disturbance, unspecified dementia type F03.91 [place] [address] [address] Mar, [place] [address] [address] Mar, Diabetes E11.9 ; Hypothyroidism (acquired) E03.9 ; Hypertension I10 and Type 2 diabetes mellitus with diabetic neuropathy, 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 [place] [address] [address] Jan, [place] [address] [address] Dec, Anxiety F41.9 and 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 [place] [address] [address] November, [place] [address] [address] November, Chronic cough R05 and Cardiomegaly I51.[address] [address] Oct, Medicare annual wellness visit, initial Z00.00 [...] seizures R56.1 and Encounter for immunization Z23 [place] [address] [address] Sep, [place] [address] [address] Jul, [place] [address] [address] Jul, [place] [address] [address] Jun, Anxiety F41.9 and 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 [place] [address] [address] Jun, Bronchitis J40 and Bilateral hearing loss, unspecified hearing loss type H91.93 [place] [address] [address] Jun, [place] [address] [address] Apr, [place] [address] [address] Apr, Encounter for immunization Z23 and Left breast mass N63.20 [place] [address] [address] Apr, [place] [address] [address] Mar, CVA (cerebral vascular accident) I63.9 ; Hypertension I10 ; Non insulin dependent diabetes mellitus with ophthalmic complication E11.39 ; Type 2 diabetes mellitus with diabetic neuropathy, 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 and Left breast mass N63 [place] [address] [address] Mar, Mild episode of recurrent major depressive disorder F33.0 and Anxiety F41.9 [place] [address] [address] Mar, Breast mass, left N63 [place] [address] [address] Mar, Breast mass, left N63 [place] [address] [address] Feb, [place] [address] [address] Feb, [place] [address] [address] Feb, [place] [address] [address] Feb, [place] [address] [address] Feb, Onychomycosis B35.1 and Type 2 diabetes mellitus with complication E11.8 [place] [address] [address] Jan, Mild episode of recurrent major depressive disorder F33.0 and Anxiety F41.9 [place] [address] [address] Jan, [place] [address] [address] Dec, Onychomycosis due to dermatophyte B35.1 ; 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 ; Type 2 diabetes mellitus with diabetic neuropathy, 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 ; Falls frequently R29.6 ; Neuropathy G62.9 ; Dementia with behavioral disturbance, unspecified dementia type F03.91 ; Hypothyroidism (acquired) E03.9 and Left hand pain M79.642 [place] [address] [address] Dec, [place] [address] [address] Dec, Hypothyroidism (acquired) E03.9 [place] [address] [address] Dec, Non insulin dependent diabetes mellitus with ophthalmic complication E11.39 [place] [address] [address] November, Hypothyroidism (acquired) E03.9 [place] [address] [address] Oct, [place] [address] [address] Oct, Non insulin dependent diabetes mellitus with ophthalmic complication E11.39 [place] [address] [address] Oct, [place] [address] [address] Oct, Dysuria R30.0 ; Non insulin dependent diabetes mellitus with ophthalmic complication E11.39 ; Bilateral hearing loss, unspecified hearing loss type H91.93 and 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 [place] [address] [address] Sep, [facility] [address] [facility] [id number] [address] Sep, Open wound of right great toe, initial encounter S91.101A [place] [address] [address] Sep, Breast mass, left N63 ; Non-insulin dependent type 2 diabetes mellitus E11.9 and Vascular dementia without behavioral disturbance F01.50 [place] [address] [address] Sep, [place] [address] [address] Jul, [place] [address] [address] Jul, Diabetes E11.9 ; Diaper dermatitis L22 ; Candidiasis of skin and nail B37.2 ; Neuropathy G62.9 ; Status post stroke Z86.73 ; Unsteadiness on feet R26.81 and 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 [place] [address] [address] May, [place] [address] [address] May, [place] [address] [address] May, [place] [address] [address] May, Dementia with behavioral disturbance, unspecified dementia type F03.91 [place] [address] [address] 16 May, 2016 Dementia with behavioral disturbance, unspecified dementia type F03.91 ; Encounter for immunization Z23 and Diabetes E11.9 [place] [address] [address] 09 May, 2016 [place] [address] [address] May, Neuropathy G62.9 [place] [address] [address] May, [place] [address] [address] Apr, Hypothyroidism (acquired) E03.9 [place] [address] [address] Apr, CVA (cerebral vascular accident) I63.9 ; Left hand weakness M62.81 and Neuropathy G62.9 [place] [address] [address] Apr, Hypokalemia E87.6 [place] [address] [address] Apr, Hypokalemia E87.6 [place] [address] [address] Mar, Diabetes E11.9 ; Edema, unspecified type R60.9 ; Anxiety disorder, unspecified F41.9 ; Pain in left knee M25.562 ; Other chronic pain G89.29 and Status post stroke Z86.73 [place] [address] [address] 15 Mar, 2016 [place] [address] [address] 15 Mar, 2016 [place] [address] [address] 07 Mar, 2016 Neuropathy G62.9 [place] [address] [address] Feb, Anorexia R63.0 and Neuropathy G62.9 [place] [address] [address] Jan, Diabetes E11.9 ; Neuropathy G62.9 ; Panic attack F41.0 ; Pain in left knee M25.562 and Hypertension 401.9 [place] [address] [address] Jan, Weakness R53.1 ; Fatigue, unspecified type R53.83 ; Falling episodes R29.6 and Neuropathy G62.9 [place] [address] [address] Jan, Pain in left knee M25.562 [place] [address] [address] Jan, [place] [address] [address] Jan, [place] [address] [address] Jan, [place] [address] [address] Dec, Diabetes E11.9 ; Neuropathy G62.9 and Dementia F03.90 [place] [address] [address] Dec, [place] [address] [address] Dec, Neuropathy G62.9 ; Diabetes E11.9 ; Anxiety F41.9 and Constipation, unspecified constipation type K59.00 [place] [address] [address] Dec, [place] [address] [address] Dec, Anxiety F41.9 [place] [address] [address] November, [facility] [address] [address] November, Pain in left knee M25.562 ; Other chronic pain G89.29 ; Diabetes E11.9 and Left eye pain H57.12 [facility] [address] [address] November, [facility] [address] [address] November, Hearing loss, unspecified laterality H91.90 [facility] [address] [address] November, [facility] [address] [address] November, [facility] [address] [address] November, Pain in right knee M25.561 [facility] [address] [address] November, [facility] [address] [address] Oct, [facility] [address] [address] Oct, [facility] [address] [address] Oct, Edema of left lower extremity R60.0 ; Diabetes E11.9 ; 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 I63.39 and Anxiety disorder, unspecified F41.9 [facility] [address] [address] 14 Oct, 2015 Panic attack F41.0 [facility] [address] [address] 14 Oct, 2015 [facility] [address] [address] 13 Oct, 2015 CVA (cerebral vascular accident) I63.9 [place] [address] [address] Oct, [place] [address] [address] Oct, Diabetes E11.9 ; Hypertension I10 and Dementia F03.90 [place] [address] [address] Sep, [place] [address] [address] Sep, [place] [address] [address] Sep, Diabetes E11.9 ; 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 ; Onychomycosis B35.1 and Fatigue R53.83 [place] [address] [address] Aug, [place] [address] [address] Aug, [place] [address] [address] Jul, [place] [address] [address] Jul, [place] [address] [address] Jun, 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 [place] [address] [address] Jun, Anxiety disorder, unspecified F41.9 and Major depressive disorder, single episode, moderate F32.1 [place] [address] [address] Jun, [place] [address] [address] Jun, [place] [address] [address] May, Left knee pain M25.562 [facility] [address] [address] May, [facility] [address] [address] May, [facility] [address] [address] May, [facility] [address] [address] May, Hypertension I10 ; Diabetes E11.9 and Depression F32.9 [facility] [address] [address] May, [facility] [address] [address] Apr, Left knee pain M25.562 ; Type 2 diabetes mellitus with complication E11.8 and Encounter for immunization Z23 [facility] [address] [address] Apr, [facility] [address] [address] Apr, [facility] [address] [address] Mar, [facility] [address] [address] Mar, Silvestre stanley 727.51 [facility] [address] [address] Mar, [facility] [address] [address] Mar, [facility] [address] [address] Mar, [facility] [address] [address] Feb, [facility] [address] [address] Feb, [facility] [id number] [place] [address] Feb, Hypertension 401.9 and Diabetes 250.00 [facility] [id number] [place] [address] Jan, [facility] [address] [address] Jan, Diabetes 250.00 [facility] [address] [address] 14 Jan, 2015 [facility] [address] [address] Jan, [facility] [address] [address] 29 Dec, 2014 Diabetes 250.00 and Forgetfulness 780.99 [facility] [address] [address] Dec, [facility] [address] [address] Dec, Diabetes mellitus 250.00 [facility] [address] [address] Dec, [facility] [address] [address] Dec, [facility] [address] [address] Dec, [facility] [address] [address] 16 Dec, 2014 Diabetes 250.00 and Dysthymia 300.4 [facility] [address] [address] 15 Dec, 2014 [facility] [address] [address] 09 Dec, 2014 Grief 309.0 and Diabetes mellitus 250.00 [facility] [address] [address] 14 Oct, 2014 [facility] [address] [facility] [id number] [place] [address] Oct, [facility] [address] [id number] [place] [address] Jul, [facility] [address] [id number] [place] [address] Jul, [facility] [address] [id number] [place] [address] Jul, [facility] [address] [facility] [id number] [place] [address] Jul, [facility] [address] [id number] [place] [address] Jul, [facility] [address] [id number] [place] [address] May, [facility] [address] [id number] [place] [address] May, [facility] [address] [id number] [place] [address] Apr, [facility] [address] [id number] [place] [address] Apr, [facility] [address] [id number] [place] [address] Mar, [facility] [address] [id number] [place] [address] Mar, [facility] [address] [id number] [place] [address] Feb, [facility] [address] [id number] [place] [address] Feb, [facility] [address] [id number] [place] [address] Feb, [facility] [address] [id number] [place] [address] Feb, [facility] [address] [id number] [place] [address] Feb, [facility] [address] [facility] [id number] [place] [address] Feb, [facility] [address] [id number] [place] [address] November, [facility] [address] [id number] [place] [address] November, [facility] [address] [id number] [place] [address] Sep, [facility] [address] [id number] [place] [address] Sep, [facility] [address] [id number] [place] [address] Sep, [facility] [address] [id number] [place] [address] Sep, [facility] [address] [id number] [place] [address] Sep, [facility] [address] [id number] [place] [address] Sep, [facility] [address] [id number] [place] [address] Sep, [facility] [address] [id number] [place] [address] Sep, [facility] [address] [id number] [place] [address] Aug, [facility] [address] [id number] [place] [address] Aug, [facility] [address] [id number] [place] [address] Jul, [facility] [address] [id number] [place] [address] Jul, [facility] [address] [id number] [place] [address] Jul, [facility] [address] [id number] [place] [address] Jul, [facility] [address] [id number] [place] [address] Jun, [facility] [address] [id number] [place] [address] Jun, [facility] [address] [id number] [place] [address] May, [facility] [address] [id number] [place] [address] May, [facility] [address] [id number] [place] [address] May, [facility] [address] [id number] [place] [address] May, [facility] [id number] [place] [address] May, [facility] [address] [id number] [place] [address] May, [facility] [address] [id number] [place] [address] Apr, [facility] [address] [id number] [place] [address] Apr, [facility] [address] [id number] [place] [address] 16 Apr, 2013 [facility] [address] [id number] [place] [address] Apr, [facility] [address] [id number] [place] [address] Mar, [facility] [address] [id number] [place] [address] Mar, [facility] [address] [id number] [place] [address] Jan, [facility] [address] [id number] [place] [address] Jan, [facility] [address] [id number] [place] [address] Jan, [facility] [address] [id number] [place] [address] November, [facility] [address] [id number] [place] [address] November, [facility] [address] [id number] [place] [address] November, [facility] [address] [id number] [place] [address] November, [facility] [address] [id number] [place] [address] Aug, [facility] [address] [id number] [place] [address] Jul, [facility] [address] [id number] [place] [address] Jul, [facility] [address] [id number] [place] [address] Jul[facility] [facility] [address] [id number] [place] [address] Jun, [facility] [address] [id number] [place] [address] Jun, [facility] [address] [id number] [place] [address] May, [facility] [address] [id number] [place] [address] May, [facility] [address] [id number] [place] [address] Apr, [facility] [address] [id number] [place] [address] Apr, [facility] [address] [id number] [place] [address] Apr, [facility] [address] [id number] [place] [address] Apr, [facility] [address] [id number] [place] [address] Apr, [facility] [address] [id number] [place] [address] Apr, [facility] [address] [id number] [place] [address] Apr, [facility] [address] [id number] [place] [address] Apr, [facility] [address] [id number] [place] [address] Apr, [facility] [address] [id number] [place] [address] Mar, [facility] [address] [id number] [place] [address] Feb, [facility] [address] [id number] [place] [address] November, [facility] [address] [id number] [place] [address] November, [facility] [address] [id number] [place] [address] November, [facility] [address] [id number] [place] [address] November, [facility] [address] [id number] [place] [address] Jun, [facility] [address] [id number] [place] [address] Jun, [facility] [id number] [place] [address] May, [facility] [address] [id number] [place] [address] May, [facility] [address] [id number] [place] [address] Apr, [facility] [address] [id number] [place] [address] Apr, [facility] [address] [id number] [place] [address] May, [facility] [address] [id number] [place] [address] Apr, [facility] [address] [id number] [place] [address] Apr, [facility] [address] [id number] [place] [address] Apr, [facility] [address] [id number] [place] [address] Apr, IMMUNIZATIONS No Known Immunizations SOCIAL HISTORY [...] Hospitalization History Post Stroke pt went to [facility] and then [facility] 10/15/15 Hospitalization History Hypotension, Wander ateral leg weakness--Via [facility] 01/15/16 Hospitalization History hypertension/chest pain 03/2017
--- OUTSIDE RECORDS SUMMARY | 2023-03-21 11:28 | XMS REPORT ---
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 Name Role Phone FAHAD MENDEZ Unavailable PROBLEMS Type Condition ICD9-CM Code MYK70-AN Code Onset Dates Condition Status SNOMED Code Problem Falls frequently R29.6 Active 6892402 02 Problem 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 Active 22795352 1 Problem Type 2 diabetes mellitus with diabetic neuropathy, 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 Active 48654649 Problem Diabetes E11.9 Active 984716196 Problem History of cerebrovascular accident with hemiparesis or hemiplegia Z86.73 Active 817324645 Problem Cardiomegaly I51.7 Active 4252848 Problem SNHL (sensory-neural hearing loss), 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 Active 613592733 Problem Bilateral hearing loss, unspecified hearing loss type H91.93 Active 48748766 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 68275621 Problem Left-sided muscle weakness M62.81 Active 307711170 Problem Other chronic pain G89.29 Active 92465 001 Problem Anxiety F41.9 Active 48375708 Problem Hypertension I10 Active 89832609 Problem Panic attack F41.0 Active 438160339 Problem 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 Active 424659349717 Problem Vascular dementia without behavioral disturbance F01.50 Active 539028707 Problem Hypothyroidism (acquired) E03.9 Active 289520485 Problem 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 Active 63080777 Problem Dementia with behavioral disturbance, unspecified dementia type F03.91 Active 9385722180698 Problem 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 Active [id number] ALLERGIES No Information ENCOUNTERS Encounter Location Date Diagnosis [facility] [address] [facility] [id number] [address] Jun, [facility] [id number] [address] May, [facility] [address], [place] [address] Apr, [facility] [id number] [place] [address] Apr, [facility] [id number] [place] [address] Apr, [facility] [id number] [place] [address] Apr, [facility] [id number] [place] [address] Mar, Anxiety F41.9 ; 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 and Dementia with behavioral disturbance, unspecified dementia type F03.91 [facility] [id number] [place] [address] Mar, [place] [id number] [place] [address] Mar, Diabetes E11.9 ; Hypothyroidism (acquired) E03.9 ; Hypertension I10 and Type 2 diabetes mellitus with diabetic neuropathy, 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 [place] [address] [address] Jan, [place] [address], [place] [address] Dec, Anxiety F41.9 and 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 [place] [address] [address] November, [facility] [id number] [place] [address] November, Chronic cough R05 and Cardiomegaly I51.7 [place] [address], [place] [address] Oct, Medicare annual wellness visit, initial Z00.00 [...] seizures R56.1 and Encounter for immunization Z23 [place] [address] [address] Sep, [place] [address] [address] Jul, [place] [address] [address] Jul, [place] [address] [address] Jun, Anxiety F41.9 and 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 [place] [address] [address] Jun, Bronchitis J40 and Bilateral hearing loss, unspecified hearing loss type H91.93 [place] [address] [address] Jun, [place] [address] [address] Apr, [place] [address] [address] Apr, Encounter for immunization Z23 and Left breast mass N63.20 [place] [address] [address] 16 Apr, 2017 [place] [address] [address] Mar, CVA (cerebral vascular accident) I63.9 ; Hypertension I10 ; 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 ; Type 2 diabetes mellitus with diabetic neuropathy, 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 and Left breast mass N63 [facility] [id number] [place] [address] Mar, Mild episode of recurrent major depressive disorder F33.0 and Anxiety F41.9 [facility] [id number] [place] [address] Mar, Breast mass, left N63 [facility] [id number] [place] [address] Mar, Breast mass, left N63 [facility] [id number] [place] [address] Feb, [facility] [id number] [place] [address] Feb, [facility] [id number] [place] [address] Feb, [facility] [address] [place] [address] Feb, [facility] [id number] [place] [address] Feb, Onychomycosis B35.1 and Type 2 diabetes mellitus with complication E11.8 [place] [address] [place] [address] Jan, Mild episode of recurrent major depressive disorder F33.0 and Anxiety F41.9 [facility] [address] [address] Jan, [facility] [address] [place] [address] Dec, Onychomycosis due to dermatophyte B35.1 ; 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 ; Type 2 diabetes mellitus with diabetic neuropathy, 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 ; Falls frequently R29.6 ; Neuropathy G62.9 ; Dementia with behavioral disturbance, unspecified dementia type F03.91 ; Hypothyroidism (acquired) E03.9 and Left hand pain M79.642 [facility] [id number] [place] [address] Dec, [facility] [id number] [place] [address] Dec, Hypothyroidism (acquired) E03.9 [facility] [address] [address] Dec, 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 [place] [id number] [place] [address] November, Hypothyroidism (acquired) E03.9 [facility] [id number] [place] [address] Oct, [facility] [address] [address] Oct, 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 [facility] [id number] [place] [address] Oct, [facility] [id number] [place] [address] Oct, Dysuria R30.0 ; 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 ; Bilateral hearing loss, unspecified hearing loss type H91.93 and 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 [facility] [id number] [place] [address] Sep, [facility] [id number] [place] [address] Sep, Open wound of right great toe, initial encounter S91.101A [facility] [id number] [place] [address] Sep, Breast mass, left N63 ; Non-insulin dependent type 2 diabetes mellitus E11.9 and Vascular dementia without behavioral disturbance F01.50 [place] [id number] [place] [address] Sep, [place] [address] [address] Jul, [place] [address] [address] Jul, Diabetes E11.9 ; Diaper dermatitis L22 ; Candidiasis of skin and nail B37.2 ; Neuropathy G62.9 ; Status post stroke Z86.73 ; Unsteadiness on feet R26.81 and 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 [place] [address] [address] May, [place] [address] [address] May, [place] [address] [address] May, [place] [address] [address] May, Dementia with behavioral disturbance, unspecified dementia type F03.91 [place] [id number] [place] [address] May, Dementia with behavioral disturbance, unspecified dementia type F03.91 ; Encounter for immunization Z23 and Diabetes E11.9 [place] [address] [address] May, [place] [address] [address] May, Neuropathy G62.9 [place] [address] [address] May, [place] [address] [address] Apr, Hypothyroidism (acquired) E03.9 [place] [id number] [place] [address] 18 Apr, 2016 CVA (cerebral vascular accident) I63.9 ; Left hand weakness M62.81 and Neuropathy G62.9 [place] [id number] [place] [address] Apr, Hypokalemia E87.6 [place] [address] [address] Apr, Hypokalemia E87.6 [place] [address] [address] Mar, Diabetes E11.9 ; Edema, unspecified type R60.9 ; Anxiety disorder, unspecified F41.9 ; Pain in left knee M25.562 ; Other chronic pain G89.29 and Status post stroke Z86.73 [place] [address] [address] Mar, [place] [address] [address] Mar, [place] [address] [address] Mar, Neuropathy G62.9 [place] [address] [address] Feb, Anorexia R63.0 and Neuropathy G62.9 [place] [id number] [place] [address] Jan, Diabetes E11.9 ; Neuropathy G62.9 ; Panic attack F41.0 ; Pain in left knee M25.562 and Hypertension 401.9 [place] [address] [address] Jan, Weakness R53.1 ; Fatigue, unspecified type R53.83 ; Falling episodes R29.6 and Neuropathy G62.9 [place] [id number] [place] [address] Jan, Pain in left knee M25.562 [facility] [id number] [place] [address] Jan, [facility] [id number] [place] [address] Jan, [facility] [id number] [place] [address] Jan, [facility] [id number] [place] [address] Dec, Diabetes E11.9 ; Neuropathy G62.9 and Dementia F03.90 [facility] [id number] [place] [address] Dec, [facility] [id number] [place] [address] Dec, Neuropathy G62.9 ; Diabetes E11.9 ; Anxiety F41.9 and Constipation, unspecified constipation type K59.00 [facility] [id number] [place] [address] Dec, [facility] [id number] [place] [address] Dec, Anxiety F41.9 [facility] [id number] [place] [address] November, [facility] [id number] [place] [address] November, Pain in left knee M25.562 ; Other chronic pain G89.29 ; Diabetes E11.9 and Left eye pain H57.12 [facility] [id number] [place] [address] November, [facility] [id number] [place] [address] November, Hearing loss, unspecified laterality H91.90 [place] [address], [place] [address] November, [facility] [address], [place] [address] November, [facility] [address], [place] [address] November, Pain in right knee M25.561 [facility] [id number] [place] [address] November, [facility] [address] [place] [address] Oct, [facility] [id number] [place] [address] Oct, [facility] [address] [place] [address] Oct, Edema of left lower extremity R60.0 ; Diabetes E11.9 ; 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 and Anxiety disorder, unspecified F41.9 [facility] [address] [place] [address] Oct, Panic attack F41.0 [facility] [address], [place] [address] Oct, [facility] [address], [place] [address] Oct, CVA (cerebral vascular accident) I63.9 [facility] [address], [place] [address] Oct, [facility] [id number] [place] [address] Oct, Diabetes E11.9 ; Hypertension I10 and Dementia F03.90 [facility] [address], [place] [address] Sep, [facility] [id number] [place] [address] Sep, [facility] [id number] [place] [address] Sep, Diabetes E11.9 ; 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 ; Onychomycosis B35.1 and Fatigue R53.83 [facility] [id number] [place] [address] Aug, [facility] [id number] [place] [address] Aug, [facility] [id number] [place] [address] Jul, [facility] [id number] [place] [address] Jul, [facility] [id number] [place] [address] Jun, 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 [facility] [id number] [place] [address] Jun, Anxiety disorder, unspecified F41.9 and Major depressive disorder, single episode, moderate F32.1 [facility] [id number] [place] [address] Jun, [facility] [id number] [place] [address] Jun, [facility] [id number] [place] [address] May, Left knee pain M25.562 [facility] [id number] [place] [address] 16 May, 2015 [facility] [id number] [place] [address] May, [facility] [id number] [place] [address] May, [facility] [id number] [place] [address] May, Hypertension I10 ; Diabetes E11.9 and Depression F32.9 [facility] [id number] [place] [address] May, [facility] [id number] [place] [address] Apr, Left knee pain M25.562 ; Type 2 diabetes mellitus with complication E11.8 and Encounter for immunization Z23 [facility] [id number] [place] [address] Apr, [facility] [id number] [place] [address] Apr, [facility] [id number] [place] [address] Mar, [facility] [id number] [place] [address] Mar, Silvestre stanley 727.51 [facility] [id number] [place] [address] Mar, [facility] [id number] [place] [address] Mar, [facility] [id number] [place] [address] Mar, [facility] [id number] [place] [address] Feb, [facility] [id number] [place] [address] Feb, [facility] [address] [place] [address] Feb, Hypertension 401.9 and Diabetes 250.00 [facility] [id number] [place] [address] Jan, [facility] [address], [place] [address] Jan, Diabetes 250.00 [facility] [address], [place] [address] Jan, [facility] [address], [place] [address] Jan, [facility] [address], [place] [address] Dec, Diabetes 250.00 and Forgetfulness 780.99 [facility] [id number] [place] [address] Dec, [facility] [address], [place] [address] Dec, Diabetes mellitus 250.00 [facility] [address], [place] [address] Dec, [facility] [address], [place] [address] Dec, [facility] [address], [place] [address] Dec, [facility] [address], [place] [address] Dec, Diabetes 250.00 and Dysthymia 300.4 [facility] [address], [place] [address] Dec, [facility] [id number], [place] [address] 09 Dec, 2014 Grief 309.0 and Diabetes mellitus 250.00 [facility] [id number], [place] [address] 14 Oct, 2014 [facility] [address], [place] [address] Oct, [facility] [place] [facility] [address] [id number] [place] [address] Jul, [facility] [place] [facility] [address] [id number] [place] [address] Jul, [facility] [place] [facility] [address] [id number] [place] [address] Jul, [facility] [place] [facility] [address] [id number] [place] [address] Jul, [facility] [place] [facility] [address] [id number] [place] [address] Jul, [facility] [place] [facility] [address] [id number] [place] [address] May, [facility] [place] [facility] [address] [id number] [place] [address] May, [facility] [place] [facility] [address] [id number] [place] [address] Apr, [facility] [place] [facility] [address] [id number] [place] [address] Apr, [facility] [place] [facility] [address] [id number] [place] [address] Mar, [facility] [place] [facility] [address] [id number] [place] [address] Mar, [facility] [place] [facility] [address] [id number] [place] [address] Feb, [facility] [place] [facility] [address] [id number] [place] [address] Feb, [facility] [place] [facility] [address] [id number] [place] [address] Feb, [facility] [place] [facility] [address] [id number] [place] [address] Feb, [facility] [place] [facility] [address] [id number] [place] [address] Feb, [facility] [place] [facility] [address] [id number] [place] [address] Feb, [facility] [place] [facility] [address] [id number] [place] [address] November, [facility] [place] [facility] [address] [id number] [place] [address] November, [facility] [place] [facility] [address] [id number] [place] [address] Sep, [facility] [place] [facility] [address] [id number] [place] [address] Sep, [facility] [place] [facility] [address] [id number] [place] [address] Sep, [facility] [place] [facility] [address] [id number] [place] [address] Sep, [facility] [place] [facility] [address] [id number] [place] [address] Sep, [facility] [place] [facility] [address] [id number] [place] [address] Sep, [facility] [place] [facility] [address] [id number] [place] [address] Sep, [facility] [place] [facility] [address] [id number] [place] [address] Sep, [facility] [place] [facility] [address] [id number] [place] [address] Aug, [facility] [place] [facility] [address] [id number] [place] [address] Aug, [facility] [place] [facility] [address] [id number] [place] [address] Jul, [facility] [place] [facility] [address] [id number] [place] [address] Jul, [facility] [place] [facility] [address] [id number] [place] [address] Jul, [facility] [place] [facility] [address] [id number] [place] [address] Jul, [facility] [place] [facility] [address] [id number] [place] [address] Jun, [facility] [place] [facility] [address] [id number] [place] [address] Jun, [facility] [place] [facility] [address] [id number] [place] [address] May, [facility] [place] [facility] [address] [id number] [place] [address] May, [facility] [place] [facility] [address] [id number] [place] [address] May, [facility] [place] [facility] [address] [id number] [place] [address] May, [facility] [place] [facility] [address] [id number] [place] [address] May, [facility] [place] [facility] [address] [id number] [place] [address] May, [facility] [place] [facility] [address] [id number] [place] [address] Apr, [facility] [place] [facility] [address] [id number] [place] [address] Apr, [facility] [place] [facility] [address] [id number] [place] [address] Apr, [facility] [place] [facility] [address] [id number] [place] [address] Apr, [facility] [place] [facility] [address] [id number] [place] [address] Mar, [facility] [place] [facility] [address] [id number] [place] [address] Mar, [facility] [address] [id number] [place] [address] Jan, [facility] [place] [facility] [address] [id number] [place] [address] Jan, [facility] [address] [id number] [place] [address] Jan, [facility] [place] [facility] [address] [id number] [place] [address] November, [facility] [address] [id number] [place] [address] November, [facility] [address] [id number] [place] [address] November, [facility] [address] [id number] [place] [address] November, [facility] [address] [id number] [place] [address] Aug, [facility] [address] [id number] [place] [address] Jul, [facility] [address] [id number] [place] [address] Jul, [facility] [address] [id number] [place] [address] Jul, [facility] [place] [facility] [address] [id number] [place] [address] Jun, [facility] [place] [facility] [address] [id number] [place] [address] Jun, [facility] [place] [facility] [address] [id number] [place] [address] May, [facility] [place] [facility] [address] [id number] [place] [address] May, [facility] [place] [facility] [address] [id number] [place] [address] Apr, [facility] [place] [facility] [address] [id number] [place] [address] Apr, [facility] [place] [facility] [address] [id number] [place] [address] Apr, [facility] [address] [id number] [place] [address] Apr, [facility] [place] [facility] [address] [id number] [place] [address] Apr, [facility] [place] [facility] [address] [id number] [place] [address] Apr, [facility] [place] [facility] [address] [id number] [place] [address] Apr, [facility] [place] [facility] [address] [id number] [place] [address] Apr, [facility] [address] [id number] [place] [address] Apr, [facility] [place] [facility] [address] [id number] [place] [address] Mar, [facility] [place] [facility] [address] [id number] [place] [address] Feb, [facility] [place] [facility] [address] [id number] [place] [address] November, [facility] [place] [facility] [address] [id number] [place] [address] November, [facility] [place] [facility] [address] [id number] [place] [address] November, [facility] [place] [facility] [address] [id number] [place] [address] November, [facility] [place] [facility] [address] [id number] [place] [address] Jun, [facility] [id number] [address] Jun, [facility] [id number] [place] [address] May, [facility] [address] [id number] [address] May, [facility] [id number] [place] [address] Apr, [facility] [id number] [place] [address] Apr, [facility] [id number], [place] [address] May, [facility] [id number] [place] [address] Apr, [facility] [id number] [place] [address] Apr, [facility] [id number] [address] Apr, [facility] [address] [id number] [address] Apr, IMMUNIZATIONS No Known Immunizations SOCIAL HISTORY [...] [facility] 10/15/15 Hospitalization History Hypotension, Wander ateral leg weakness--Via [facility] 01/15/16 Hospitalization History hypertension/chest pain 03/2017
--- OUTSIDE RECORDS SUMMARY | 2023-03-21 11:28 | XMS REPORT ---
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 Active 02751707 1 Problem Type 2 diabetes mellitus with diabetic neuropathy, 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 Active 99150399 Problem Diabetes E11.9 Active 031750863 Problem History of cerebrovascular accident with hemiparesis or hemiplegia Z86.73 Active 412257587 Problem Cardiomegaly I51.7 Active 3692481 Problem SNHL (sensory-neural hearing loss), 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 Active 580152506 Problem Bilateral hearing loss, unspecified hearing loss type H91.93 Active 71998846 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 21835543 Problem Left-sided muscle weakness M62.81 Active 254977717 Problem Other chronic pain G89.29 Active 45711 001 Problem Anxiety F41.9 Active 48872835 Problem Hypertension I10 Active 48958386 Problem Panic attack F41.0 Active 670986176 Problem 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 Active 316874165788 Problem Vascular dementia without behavioral disturbance F01.50 Active 877972827 Problem Hypothyroidism (acquired) E03.9 Active 306724260 Problem 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 Active 35073895 Problem Dementia with behavioral disturbance, unspecified dementia type F03.91 Active 2805189791677 Problem 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 Active 439167250 ALLERGIES No Information ENCOUNTERS Encounter Location Date Diagnosis [facility] [address] [facility] [id number] [address] Apr, [facility] [id number] [address] Apr, [place] [id number] [place] [address] Apr, [place] [id number] [place] [address] Mar, Anxiety F41.9 ; 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 and Dementia with behavioral disturbance, unspecified dementia type F03.91 [place] [id number] [place] [address] Mar, [place] [id number] [place] [address] Mar, Diabetes E11.9 ; Hypothyroidism (acquired) E03.9 ; Hypertension I10 and Type 2 diabetes mellitus with diabetic neuropathy, 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 [place] [id number] [place] [address] Jan, [place] [id number] [place] [address] Dec, Anxiety F41.9 and 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 [place] [address] [place] [address] November, [place] [id number] [place] [address] November, Chronic cough R05 and Cardiomegaly I51.7 [place] [id number] [place] [address] Oct, Medicare annual wellness visit, initial Z00.00 [...] seizures R56.1 and Encounter for immunization Z23 [place] [id number] [place] [address] Sep, [place] [id number] [place] [address] Jul, [place] [id number] [place] [address] Jul, [place] [address] [address] Jun, Anxiety F41.9 and 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 [place] [address] [address] Jun, Bronchitis J40 and Bilateral hearing loss, unspecified hearing loss type H91.93 [place] [address] [address] Jun, [place] [id number] [place] [address] Apr, [place] [address] [address] Apr, Encounter for immunization Z23 and Left breast mass N63.20 [place] [id number] [place] [address] Apr, [place] [id number] [place] [address] Mar, CVA (cerebral vascular accident) I63.9 ; Hypertension I10 ; 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.39 ; Type 2 diabetes mellitus with diabetic neuropathy, 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 and Left breast mass N63 [place] [id number] [place] [address] Mar, Mild episode of recurrent major depressive disorder F33.0 and Anxiety F41.9 [place] [id number] [place] [address] Mar, Breast mass, left N63 [facility] [id number] [place] [address] Mar, Breast mass, left N63 [facility] [address] [address] Feb, [facility] [id number] [place] [address] Feb, [facility] [id number] [place] [address] Feb, [place] [id number] [place] [address] Feb, [place] [id number] [place] [address] Feb, Onychomycosis B35.1 and Type 2 diabetes mellitus with complication E11.8 [place] [id number] [place] [address] Jan, Mild episode of recurrent major depressive disorder F33.0 and Anxiety F41.9 [place] [id number] [place] [address] Jan, [place] [address] [place] [address] Dec, Onychomycosis due to dermatophyte B35.1 ; 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 ; Type 2 diabetes mellitus with diabetic neuropathy, 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 ; Falls frequently R29.6 ; Neuropathy G62.9 ; Dementia with behavioral disturbance, unspecified dementia type F03.91 ; Hypothyroidism (acquired) E03.9 and Left hand pain M79.642 [facility] [address] [address] Dec, [place] [address] [place] [address] Dec, Hypothyroidism (acquired) E03.9 [facility] [address] [place] [address] Dec, 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 [facility] [id number] [place] [address] November, Hypothyroidism (acquired) E03.9 [facility] [id number] [place] [address] Oct, [facility] [id number] [place] [address] Oct, 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 [id number] [place] [address] Sep, Open wound of right great toe, initial encounter S91.101A [facility] [id number] [place] [address] Sep, Breast mass, left N63 ; Non-insulin dependent type 2 diabetes mellitus E11.9 and Vascular dementia without behavioral disturbance F01.50 [facility] [id number] [place] [address] Sep, [facility] [id number] [place] [address] Jul, [facility] [id number] [place] [address] Jul, Diabetes E11.9 ; Diaper dermatitis L22 ; Candidiasis of skin and nail B37.2 ; Neuropathy G62.9 ; Status post stroke Z86.73 ; Unsteadiness on feet R26.81 and 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 [place] [id number] [place] [address] May, [place] [address] [address] May, [place] [address] [address] May, [place] [address] [address] May, Dementia with behavioral disturbance, unspecified dementia type F03.91 [place] [address] [address] May, Dementia with behavioral disturbance, unspecified dementia type F03.91 ; Encounter for immunization Z23 and Diabetes E11.9 [place] [address] [address] May, [place] [address] [address] May, Neuropathy G62.9 [place] [address] [address] May, [place] [address] [address] Apr, Hypothyroidism (acquired) E03.9 [place] [address] [address] Apr, CVA (cerebral vascular accident) I63.9 ; Left hand weakness M62.81 and Neuropathy G62.9 [place] [address] [address] Apr, Hypokalemia E87.6 [place] [id number] [place] [address] Apr, Hypokalemia E87.6 [place] [id number] [place] [address] Mar, Diabetes E11.9 ; Edema, unspecified type R60.9 ; Anxiety disorder, unspecified F41.9 ; Pain in left knee M25.562 ; Other chronic pain G89.29 and Status post stroke Z86.73 [place] [id number] [place] [address] Mar, [place] [address] [address] Mar, [place] [id number] [place] [address] Mar, Neuropathy G62.9 [place] [address] [address] Feb, Anorexia R63.0 and Neuropathy G62.9 [place] [id number] [place] [address] Jan, Diabetes E11.9 ; Neuropathy G62.9 ; Panic attack F41.0 ; Pain in left knee M25.562 and Hypertension 401.9 [place] [id number] [place] [address] Jan, Weakness R53.1 ; Fatigue, unspecified type R53.83 ; Falling episodes R29.6 and Neuropathy G62.9 [place] [id number] [place] [address] Jan, Pain in left knee M25.562 [place] [id number] [place] [address] Jan, [place] [id number] [place] [address] Jan, [place] [id number] [place] [address] Jan, [facility] [id number] [place] [address] Dec, Diabetes E11.9 ; Neuropathy G62.9 and Dementia F03.90 [facility] [id number] [place] [address] Dec, [facility] [address] [address] Dec, Neuropathy G62.9 ; Diabetes E11.9 ; Anxiety F41.9 and Constipation, unspecified constipation type K59.00 [place] [id number] [place] [address] Dec, [place] [id number] [place] [address] Dec, Anxiety F41.9 [place] [id number] [place] [address] November, [facility] [id number] [place] [address] November, Pain in left knee M25.562 ; Other chronic pain G89.29 ; Diabetes E11.9 and Left eye pain H57.12 [place] [id number] [place] [address] November, [place] [id number] [place] [address] November, Hearing loss, unspecified laterality H91.90 [facility] [id number] [place] [address] November, [facility] [id number] [place] [address] November, [facility] [id number] [place] [address] November, Pain in right knee M25.561 [place] [id number] [place] [address] November, [place] [id number] [place] [address] Oct, [place] [id number] [place] [address] Oct, [place] [id number] [place] [address] Oct, Edema of left lower extremity R60.0 ; Diabetes E11.9 ; 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 I63.39 and Anxiety disorder, unspecified F41.9 [place] [id number] [place] [address] Oct, Panic attack F41.0 [place] [address] [address] 14 Oct, 2015 [place] [id number] [place] [address] Oct, CVA (cerebral vascular accident) I63.9 [place] [id number] [place] [address] Oct, [place] [id number] [place] [address] Oct, Diabetes E11.9 ; Hypertension I10 and Dementia F03.90 [place] [id number] [place] [address] 30 Sep, 2015 [place] [id number] [place] [address] Sep, [place] [id number] [place] [address] Sep, Diabetes E11.9 ; 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 ; Onychomycosis B35.1 and Fatigue R53.83 [place] [id number] [place] [address] Aug, [facility] [id number] [place] [address] Aug, [facility] [id number] [place] [address] Jul, [facility] [id number] [place] [address] Jul, [facility] [id number] [place] [address] Jun, 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 [facility] [id number] [place] [address] Jun, Anxiety disorder, unspecified F41.9 and Major depressive disorder, single episode, moderate F32.1 [facility] [id number] [place] [address] Jun, [facility] [id number] [place] [address] Jun, [facility] [id number] [place] [address] May, Left knee pain M25.562 [facility] [id number] [place] [address] May, [facility] [id number] [place] [address] May, [facility] [address] [place] [address] May, [facility] [id number] [place] [address] May, Hypertension I10 ; Diabetes E11.9 and Depression F32.9 [facility] [id number] [place] [address] May, [facility] [address] [address] Apr, Left knee pain M25.562 ; Type 2 diabetes mellitus with complication E11.8 and Encounter for immunization Z23 [facility] [address] [address] Apr, [facility] [id number] [place] [address] Apr, [facility] [id number] [place] [address] Mar, [facility] [id number] [place] [address] Mar, Silvestre stanley 727.51 [facility] [id number] [place] [address] Mar, [facility] [id number] [place] [address] Mar, [facility] [id number] [place] [address] Mar, [facility] [id number] [place] [address] Feb, [facility] [address] [address] Feb, [facility] [id number] [place] [address] Feb, Hypertension 401.9 and Diabetes 250.00 [facility] [address] [address] Jan, [facility] [id number] [place] [address] Jan, Diabetes 250.00 [facility] [address] [address] Jan, [facility] [id number] [address] Jan, [facility] [address] [address] Dec, Diabetes 250.00 and Forgetfulness 780.99 [facility] [address] [address] Dec, [facility] [id number] [place] [address] Dec, Diabetes mellitus 250.00 [facility] [address] [place] [address] Dec, [facility] [id number] [place] [address] Dec, [facility] [id number] [place] [address] Dec, [facility] [address] [place] [address] Dec, Diabetes 250.00 and Dysthymia 300.4 [facility] [address] [address] Dec, [facility] [address] [address] Dec, Grief 309.0 and Diabetes mellitus 250.00 [facility] [address] [address] Oct, [facility] [address] [address] Oct, [facility] [address] [address] Jul, [facility] [address] [address] Jul, [facility] [address] [address] Jul, [facility] [place] [facility] [address] [id number] [place] [address] Jul, [facility] [place] [facility] [address] [id number] [place] [address] Jul, [facility] [place] [facility] [address] [id number] [place] [address] May, [facility] [place] [facility] [address] [id number] [place] [address] May, [facility] [place] [facility] [address] [id number] [place] [address] Apr, [facility] [place] [facility] [address] [id number] [place] [address] Apr, [facility] [place] [facility] [address] [id number] [place] [address] Mar, [facility] [place] [facility] [address] [id number] [place] [address] Mar, [facility] [place] [facility] [address] [id number] [place] [address] Feb, [facility] [place] [facility] [address] [id number] [place] [address] Feb, [facility] [place] [facility] [address] [id number] [place] [address] Feb, [facility] [place] [facility] [address] [id number] [place] [address] Feb, [facility] [place] [facility] [address] [id number] [place] [address] Feb, [facility] [place] [facility] [address] [id number] [place] [address] Feb, [facility] [place] [facility] [address] [id number] [place] [address] November, [facility] [place] [facility] [address] [id number] [place] [address] November, [facility] [place] [facility] [address] [id number] [place] [address] Sep, [facility] [place] [facility] [address] [id number] [place] [address] Sep, [facility] [place] [facility] [address] [id number] [place] [address] Sep, [facility] [place] [facility] [address] [id number] [place] [address] Sep, [facility] [place] [facility] [address] [id number] [place] [address] Sep, [facility] [place] [facility] [address] [id number] [place] [address] Sep, [facility] [place] [facility] [address] [id number] [place] [address] Sep, [facility] [place] [facility] [address] [id number] [place] [address] Sep, [facility] [place] [facility] [address] [id number] [place] [address] Aug, [facility] [place] [facility] [address] [id number] [place] [address] Aug, [facility] [place] [facility] [address] [id number] [place] [address] Jul, [facility] [place] [facility] [address] [id number] [place] [address] Jul, [facility] [place] [facility] [address] [id number] [place] [address] Jul, [facility] [place] [facility] [address] [id number] [place] [address] Jul, [facility] [place] [facility] [address] [id number] [address] Jun, [facility] [place] [facility] [address] [id number] [place] [address] Jun, [facility] [place] [facility] [address] [id number] [place] [address] May, [facility] [place] [facility] [address] [id number] [place] [address] May, [facility] [place] [facility] [address] [id number] [place] [address] May, [facility] [place] [facility] [address] [id number] [place] [address] May, [facility] [place] [facility] [address] [id number] [place] [address] May, [facility] [place] [facility] [address] [id number] [place] [address] May, [facility] [place] [facility] [address] [id number] [place] [address] Apr, [facility] [place] [facility] [address] [id number] [place] [address] Apr, [facility] [place] [facility] [address] [id number] [place] [address] Apr, [facility] [place] [facility] [address] [id number] [place] [address] Apr, [facility] [place] [facility] [address] [id number] [place] [address] Mar, [facility] [place] [facility] [address] [id number] [place] [address] Mar, [facility] [place] [facility] [address] [id number] [place] [address] Jan, [facility] [place] [facility] [address] [id number] [place] [address] 17 Jan, 2013 [facility] [place] [facility] [address] [id number] [place] [address] Jan, [facility] [address] [id number] [place] [address] November, [facility] [place] [facility] [address] [id number] [place] [address] November, [facility] [place] [facility] [address] [id number] [place] [address] November, [facility] [place] [facility] [address] [id number] [place] [address] November, [facility] [address] [id number] [place] [address] Aug, [facility] [place] [facility] [address] [id number] [place] [address] Jul, [facility] [place] [facility] [address] [id number] [place] [address] Jul, [facility] [place] [facility] [address] [id number] [place] [address] Jul, [facility] [address] [id number] [place] [address] Jun, [facility] [place] [facility] [address] [id number] [place] [address] Jun, [facility] [place] [facility] [address] [id number] [place] [address] May, [facility] [place] [facility] [address] [id number] [place] [address] May, [facility] [place] [facility] [address] [id number] [place] [address] Apr, [facility] [place] [facility] [address] [id number] [place] [address] Apr, [facility] [place] [facility] [address] [id number] [place] [address] Apr, [facility] [place] [facility] [address] [id number] [place] [address] Apr, [facility] [address] [id number] [place] [address] Apr, [facility] [place] [facility] [address] [id number] [place] [address] Apr, [facility] [address] [id number] [place] [address] Apr, [facility] [place] [facility] [address] [id number] [place] [address] Apr, [facility] [address] [id number] [place] [address] Apr, [facility] [place] [facility] [address] [id number] [place] [address] Mar, [facility] [place] [facility] [address] [id number] [place] [address] Feb, [facility] [address] [id number] [place] [address] November, [facility] [place] [facility] [address] [id number] [place] [address] November, [facility] [address] [id number] [place] [address] November, [facility] [place] [facility] [address] [id number] [place] [address] November, [facility] [address] [id number] [place] [address] Jun, [facility] [place] [facility] [address] [id number] [place] [address] Jun, [facility] [place] [facility] [address] [id number] [place] [address] May, [facility] [place] [facility] [address] [id number] [place] [address] May, [facility] [address] [facility] [id number] [address] Apr, [facility] [address] [facility] [id number] [address] Apr, [facility] [address] [facility] [id number] [address] May, [facility] [address] [facility] [id number] [address] Apr, [facility] [address] [facility] [id number] [address] Apr, [facility] [address] [id number] [address] Apr, [facility] [address] [id number] [address] Apr, IMMUNIZATIONS No Known Immunizations SOCIAL HISTORY Never Assessed REASON FOR VISIT Refill request PLAN OF CARE VITAL SIGNS MEDICATIONS Medication Instructions Dosage Frequency Start Date End Date Du ration Status MetFORMIN HCl ER 500 mg Orally 2 times a day 1 tablet 12h 90 days [...] Hospitalization History Post Stroke pt went to [facility] and then [facility] 10/15/15 Hospitalization History Hypotension, Wander ateral leg weakness--Via [facility] 01/15/16 Hospitalization History hypertension/chest pain 03/2017
--- OUTSIDE RECORDS SUMMARY | 2023-03-21 11:28 | XMS REPORT ---
Author Author Lady MENDEZ [facility] C Address [address] [place] [address] Care Team Providers Care Cashier Clerk Name Role Phone FAHAD MENDEZ Unavailable PROBLEMS Type Condition ICD9-CM Code FZI71-WH Code Onset Dates Condition Status SNOMED Code Problem Falls frequently R29.6 Active 4725061 02 Problem 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 Active 77586258 1 Problem Type 2 diabetes mellitus with diabetic neuropathy, 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 Active 74934909 Problem Diabetes E11.9 Active 580008320 Problem History of cerebrovascular accident with hemiparesis or hemiplegia Z86.73 Active 093084216 Problem Cardiomegaly I51.7 Active 4906309 Problem SNHL (sensory-neural hearing loss), 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 Active 310699042 Problem Bilateral hearing loss, unspecified hearing loss type H91.93 Active 31692776 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 78902344 Problem Left-sided muscle weakness M62.81 Active 796629363 Problem Other chronic pain G89.29 Active 79442 001 Problem Anxiety F41.9 Active 93758421 Problem Hypertension I10 Active 42383035 Problem Panic attack F41.0 Active 946847147 Problem 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 Active 953741472415 Problem Vascular dementia without behavioral disturbance F01.50 Active 320451604 Problem Hypothyroidism (acquired) E03.9 Active 725690086 Problem 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 Active 60604607 Problem Dementia with behavioral disturbance, unspecified dementia type F03.91 Active 4836232670654 Problem 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 Active 749044748 ALLERGIES No Information ENCOUNTERS Encounter Location Date Diagnosis [facility] [address] [id number] [address] Apr, [facility] [id number] [address] Apr, [place] [id number] [place] [address] Apr, [place] [id number] [place] [address] Mar, Anxiety F41.9 ; 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 and Dementia with behavioral disturbance, unspecified dementia type F03.91 [place] [id number] [place] [address] Mar, [place] [id number] [place] [address] Mar, Diabetes E11.9 ; Hypothyroidism (acquired) E03.9 ; Hypertension I10 and Type 2 diabetes mellitus with diabetic neuropathy, 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 [place] [id number] [place] [address] Jan, [place] [id number] [place] [address] Dec, Anxiety F41.9 and 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 [place] [id number] [place] [address] November, [place] [id number] [place] [address] November, Chronic cough R05 and Cardiomegaly I51.7 [place] [address] [place] [address] Oct, Medicare annual wellness visit, initial Z00.00 [...] and Encounter for immunization Z23 [place] [id number] [place] [address] Sep, [place] [id number] [place] [address] Jul, [place] [id number] [place] [address] Jul, [place] [address] [address] Jun, Anxiety F41.9 and 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 [place] [address] [address] Jun, Bronchitis J40 and Bilateral hearing loss, unspecified hearing loss type H91.93 [place] [address] [address] Jun, [place] [id number] [place] [address] Apr, [place] [address] [address] Apr, Encounter for immunization Z23 and Left breast mass N63.20 [place] [id number] [place] [address] Apr, [place] [id number] [place] [address] Mar, CVA (cerebral vascular accident) I63.9 ; Hypertension I10 ; 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 ; Type 2 diabetes mellitus with diabetic neuropathy, 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 and Left breast mass N63 [place] [id number] [place] [address] Mar, Mild episode of recurrent major depressive disorder F33.0 and Anxiety F41.9 [place] [id number] [place] [address] Mar, Breast mass, left N63 [facility] [id number] [place] [address] Mar, Breast mass, left N63 [facility] [address] [address] Feb, [facility] [id number] [place] [address] Feb, [facility] [id number] [place] [address] Feb, [place] [id number] [place] [address] Feb, [place] [id number] [place] [address] Feb, Onychomycosis B35.1 and Type 2 diabetes mellitus with complication E11.8 [place] [id number] [place] [address] Jan, Mild episode of recurrent major depressive disorder F33.0 and Anxiety F41.9 [place] [id number] [place] [address] Jan, [place] [address] [place] [address] Dec, Onychomycosis due to dermatophyte B35.1 ; 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 ; Type 2 diabetes mellitus with diabetic neuropathy, 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 ; Falls frequently R29.6 ; Neuropathy G62.9 ; Dementia with behavioral disturbance, unspecified dementia type F03.91 ; Hypothyroidism (acquired) E03.9 and Left hand pain M79.642 [facility] [address] [address] Dec, [place] [address] [place] [address] Dec, Hypothyroidism (acquired) E03.9 [facility] [address] [place] [address] Dec, 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 [facility] [id number] [place] [address] November, Hypothyroidism (acquired) E03.9 [facility] [id number] [place] [address] Oct, [facility] [id number] [place] [address] Oct, 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 [facility] [id number] [place] [address] Oct, [place] [id number] [place] [address] Oct, Dysuria R30.0 ; 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 ; Bilateral hearing loss, unspecified hearing loss type H91.93 and 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 [facility] [id number] [place] [address] Sep, [facility] [id number] [place] [address] Sep, Open wound of right great toe, initial encounter S91.101A [facility] [id number] [place] [address] Sep, Breast mass, left N63 ; Non-insulin dependent type 2 diabetes mellitus E11.9 and Vascular dementia without behavioral disturbance F01.50 [facility] [id number] [place] [address] Sep, [facility] [id number] [place] [address] Jul, [facility] [id number] [place] [address] Jul, Diabetes E11.9 ; Diaper dermatitis L22 ; Candidiasis of skin and nail B37.2 ; Neuropathy G62.9 ; Status post stroke Z86.73 ; Unsteadiness on feet R26.81 and 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 [place] [id number] [place] [address] May, [place] [address] [address] May, [place] [address] [address] May, [place] [address] [address] May, Dementia with behavioral disturbance, unspecified dementia type F03.91 [place] [address] [address] May, Dementia with behavioral disturbance, unspecified dementia type F03.91 ; Encounter for immunization Z23 and Diabetes E11.9 [place] [address] [address] May, [place] [address] [address] May, Neuropathy G62.9 [place] [address] [address] May, [place] [address] [address] Apr, Hypothyroidism (acquired) E03.9 [place] [address] [address] Apr, CVA (cerebral vascular accident) I63.9 ; Left hand weakness M62.81 and Neuropathy G62.9 [place] [address] [address] Apr, Hypokalemia E87.6 [place] [id number] [place] [address] Apr, Hypokalemia E87.6 [place] [id number] [place] [address] Mar, Diabetes E11.9 ; Edema, unspecified type R60.9 ; Anxiety disorder, unspecified F41.9 ; Pain in left knee M25.562 ; Other chronic pain G89.29 and Status post stroke Z86.73 [place] [id number] [place] [address] Mar, [place] [address] [address] Mar, [place] [id number] [place] [address] Mar, Neuropathy G62.9 [place] [address] [address] Feb, Anorexia R63.0 and Neuropathy G62.9 [place] [id number] [place] [address] Jan, Diabetes E11.9 ; Neuropathy G62.9 ; Panic attack F41.0 ; Pain in left knee M25.562 and Hypertension 401.9 [place] [id number] [place] [address] Jan, Weakness R53.1 ; Fatigue, unspecified type R53.83 ; Falling episodes R29.6 and Neuropathy G62.9 [place] [id number] [place] [address] Jan, Pain in left knee M25.562 [place] [id number] [place] [address] Jan, [place] [id number] [place] [address] Jan, [place] [id number] [place] [address] Jan, [facility] [id number] [place] [address] Dec, Diabetes E11.9 ; Neuropathy G62.9 and Dementia F03.90 [facility] [id number] [place] [address] Dec, [facility] [address] [address] Dec, Neuropathy G62.9 ; Diabetes E11.9 ; Anxiety F41.9 and Constipation, unspecified constipation type K59.00 [place] [id number] [place] [address] Dec, [place] [id number] [place] [address] Dec, Anxiety F41.9 [place] [id number] [place] [address] November, [facility] [id number] [place] [address] November, Pain in left knee M25.562 ; Other chronic pain G89.29 ; Diabetes E11.9 and Left eye pain H57.12 [place] [id number] [place] [address] November, [place] [id number] [place] [address] November, Hearing loss, unspecified laterality H91.90 [facility] [id number] [place] [address] November, [facility] [id number] [place] [address] November, [facility] [id number] [place] [address] November, Pain in right knee M25.561 [place] [id number] [place] [address] November, [place] [id number] [place] [address] Oct, [place] [id number] [place] [address] Oct, [place] [id number] [place] [address] Oct, Edema of left lower extremity R60.0 ; Diabetes E11.9 ; 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 I63.39 and Anxiety disorder, unspecified F41.9 [place] [id number] [place] [address] Oct, Panic attack F41.0 [place] [address] [address] 14 Oct, 2015 [place] [id number] [place] [address] Oct, CVA (cerebral vascular accident) I63.9 [place] [id number] [place] [address] Oct, [place] [id number] [place] [address] Oct, Diabetes E11.9 ; Hypertension I10 and Dementia F03.90 [place] [id number] [place] [address] 30 Sep, 2015 [place] [id number] [place] [address] Sep, [place] [id number] [place] [address] Sep, Diabetes E11.9 ; 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 ; Onychomycosis B35.1 and Fatigue R53.83 [place] [id number] [place] [address] Aug, [facility] [id number] [place] [address] Aug, [facility] [id number] [place] [address] Jul, [facility] [id number] [place] [address] Jul, [facility] [id number] [place] [address] Jun, 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 [facility] [id number] [place] [address] Jun, Anxiety disorder, unspecified F41.9 and Major depressive disorder, single episode, moderate F32.1 [facility] [id number] [place] [address] Jun, [facility] [id number] [place] [address] Jun, [facility] [id number] [place] [address] May, Left knee pain M25.562 [facility] [id number] [place] [address] May, [facility] [id number] [place] [address] May, [facility] [address] [place] [address] May, [facility] [id number] [place] [address] May, Hypertension I10 ; Diabetes E11.9 and Depression F32.9 [facility] [id number] [place] [address] May, [facility] [address] [address] Apr, Left knee pain M25.562 ; Type 2 diabetes mellitus with complication E11.8 and Encounter for immunization Z23 [facility] [address] [address] Apr, [facility] [id number] [place] [address] Apr, [facility] [id number] [place] [address] Mar, [facility] [id number] [place] [address] Mar, Silvestre stanley 727.51 [facility] [id number] [place] [address] Mar, [facility] [id number] [place] [address] Mar, [facility] [id number] [place] [address] Mar, [facility] [id number] [place] [address] Feb, [facility] [address] [address] Feb, [facility] [id number] [place] [address] Feb, Hypertension 401.9 and Diabetes 250.00 [facility] [address] [address] Jan, [facility] [id number] [place] [address] Jan, Diabetes 250.00 [facility] [address] [address] Jan, [facility] [id number] [address] Jan, [facility] [address] [address] Dec, Diabetes 250.00 and Forgetfulness 780.99 [facility] [address] [address] Dec, [facility] [id number] [place] [address] Dec, Diabetes mellitus 250.00 [facility] [address] [place] [address] Dec, [facility] [id number] [place] [address] Dec, [facility] [id number] [place] [address] Dec, [facility] [address] [place] [address] Dec, Diabetes 250.00 and Dysthymia 300.4 [facility] [address] [address] Dec, [facility] [address] [address] Dec, Grief 309.0 and Diabetes mellitus 250.00 [facility] [address] [address] Oct, [facility] [address] [address] Oct, [facility] [address] [address] Jul, [facility] [address] [address] Jul, [facility] [address] [address] Jul, [facility] [place] [facility] [address] [id number] [place] [address] Jul, [facility] [place] [facility] [address] [id number] [place] [address] Jul, [facility] [place] [facility] [address] [id number] [place] [address] May, [facility] [place] [facility] [address] [id number] [place] [address] May, [facility] [place] [facility] [address] [id number] [place] [address] Apr, [facility] [place] [facility] [address] [id number] [place] [address] Apr, [facility] [place] [facility] [address] [id number] [place] [address] Mar, [facility] [place] [facility] [address] [id number] [place] [address] Mar, [facility] [place] [facility] [address] [id number] [place] [address] Feb, [facility] [place] [facility] [address] [id number] [place] [address] Feb, [facility] [place] [facility] [address] [id number] [place] [address] Feb, [facility] [place] [facility] [address] [id number] [place] [address] Feb, [facility] [place] [facility] [address] [id number] [place] [address] Feb, [facility] [place] [facility] [address] [id number] [place] [address] Feb, [facility] [place] [facility] [address] [id number] [place] [address] November, [facility] [place] [facility] [address] [id number] [place] [address] November, [facility] [place] [facility] [address] [id number] [place] [address] Sep, [facility] [place] [facility] [address] [id number] [place] [address] Sep, [facility] [place] [facility] [address] [id number] [place] [address] Sep, [facility] [place] [facility] [address] [id number] [place] [address] Sep, [facility] [place] [facility] [address] [id number] [place] [address] Sep, [facility] [place] [facility] [address] [id number] [place] [address] Sep, [facility] [place] [facility] [address] [id number] [place] [address] Sep, [facility] [place] [facility] [address] [id number] [place] [address] Sep, [facility] [place] [facility] [address] [id number] [place] [address] Aug, [facility] [place] [facility] [address] [id number] [place] [address] Aug, [facility] [place] [facility] [address] [id number] [place] [address] Jul, [facility] [place] [facility] [address] [id number] [place] [address] Jul, [facility] [place] [facility] [address] [id number] [place] [address] Jul, [facility] [place] [facility] [address] [id number] [place] [address] Jul, [facility] [place] [facility] [address] [id number] [address] Jun, [facility] [place] [facility] [address] [id number] [place] [address] Jun, [facility] [place] [facility] [address] [id number] [place] [address] May, [facility] [place] [facility] [address] [id number] [place] [address] May, [facility] [place] [facility] [address] [id number] [place] [address] May, [facility] [place] [facility] [address] [id number] [place] [address] May, [facility] [place] [facility] [address] [id number] [place] [address] May, [facility] [place] [facility] [address] [id number] [place] [address] May, [facility] [place] [facility] [address] [id number] [place] [address] Apr, [facility] [place] [facility] [address] [id number] [place] [address] Apr, [facility] [place] [facility] [address] [id number] [place] [address] Apr, [facility] [place] [facility] [address] [id number] [place] [address] Apr, [facility] [place] [facility] [address] [id number] [place] [address] Mar, [facility] [place] [facility] [address] [id number] [place] [address] Mar, [facility] [place] [facility] [address] [id number] [place] [address] Jan, [facility] [place] [facility] [address] [id number] [place] [address] 17 Jan, 2013 [facility] [place] [facility] [address] [id number] [place] [id number] Jan, [facility] [address] [id number] [place] [address] November, [facility] [place] [facility] [address] [id number] [place] [address] November, [facility] [place] [facility] [address] [id number] [place] [address] November, [facility] [place] [facility] [address] [id number] [place] [address] November, [facility] [address] [id number] [place] [address] Aug, [facility] [place] [facility] [address] [id number] [place] [address] Jul, [facility] [place] [facility] [address] [id number] [place] [address] Jul, [facility] [place] [facility] [address] [id number] [place] [address] Jul, [facility] [address] [id number] [place] [address] Jun, [facility] [place] [facility] [address] [id number] [place] [address] Jun, [facility] [place] [facility] [address] [id number] [place] [address] May, [facility] [place] [facility] [address] [id number] [place] [address] May, [facility] [place] [facility] [address] [id number] [place] [address] Apr, [facility] [place] [facility] [address] [id number] [place] [address] Apr, [facility] [place] [facility] [address] [id number] [place] [address] Apr, [facility] [place] [facility] [address] [id number] [place] [address] Apr, [facility] [address] [id number] [place] [address] Apr, [facility] [place] [facility] [address] [id number] [place] [address] Apr, [facility] [address] [id number] [place] [address] Apr, [facility] [place] [facility] [address] [id number] [place] [address] Apr, [facility] [address] [id number] [place] [address] Apr, [facility] [place] [facility] [address] [id number] [place] [address] Mar, [facility] [place] [facility] [address] [id number] [place] [address] Feb, [facility] [address] [id number] [place] [address] November, [facility] [place] [facility] [address] [id number] [place] [address] November, [facility] [address] [id number] [place] [address] November, [facility] [place] [facility] [address] [id number] [place] [address] November, [facility] [address] [id number] [place] [address] Jun, [facility] [place] [facility] [address] [id number] [place] [address] Jun, [facility] [place] [facility] [address] [id number] [place] [address] May, [facility] [place] [facility] [address] [id number] [place] [address] May, [facility] [address] [id number], [place] [address] Apr, [facility] [address] [id number], [place] [address] Apr, [facility] [address] [id number], [place] [address] May, [facility] [address] [id number], [place] [address] Apr, [facility] [address] [id number], [place] [address] Apr, [facility] [address] [id number][place] [address] Apr, [facility] [address] [id number], [place] [address] Apr, IMMUNIZATIONS No Known Immunizations SOCIAL HISTORY Never Assessed REASON FOR VISIT Refill Request PLAN OF CARE VITAL SIGNS MEDICATIONS Unknown [...] Hospitalization History Post Stroke pt went to [facility] and then [facility] 10/15/15 Hospitalization History Hypotension, Wander ateral leg weakness--Via [facility] 01/15/16 Hospitalization History hypertension/chest pain 03/2017
--- OUTSIDE RECORDS SUMMARY | 2023-03-21 11:28 | XMS REPORT ---
Author Author Lady WEL[facility] Address [address] [place] [address] Care Team Providers Care Instructor Looping Name Role Phone REBEKAH CY Unavailable PROBLEMS Type Condition ICD9-CM Code CON31-WP Code Onset Dates Condition Status SNOMED Code Problem Falls frequently R29.6 Active 4227541 02 Problem 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 Active 33155253 1 Problem Type 2 diabetes mellitus with diabetic neuropathy, 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 Active 50545063 Problem Diabetes E11.9 Active 569551435 Problem History of cerebrovascular accident with hemiparesis or hemiplegia Z86.73 Active 537485206 Problem Cardiomegaly I51.7 Active 4140950 Problem SNHL (sensory-neural hearing loss), 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 Active 620849521 Problem Bilateral hearing loss, unspecified hearing loss type H91.93 Active 97414919 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 85556027 Problem Left-sided muscle weakness M62.81 Active 444706909 Problem Other chronic pain G89.29 Active 36812 001 Problem Anxiety F41.9 Active 27998653 Problem Hypertension I10 Active 89595222 Problem Panic attack F41.0 Active 676389007 Problem 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 Active 380327234142 Problem Vascular dementia without behavioral disturbance F01.50 Active 324878529 Problem Hypothyroidism (acquired) E03.9 Active 164401734 Problem 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 Active 90999205 Problem Dementia with behavioral disturbance, unspecified dementia type F03.91 Active 3926884875048 Problem 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 Active 106940054 ALLERGIES Substance Reaction Event Type Date Status Victoza stomach upset Drug Allergy May, Active ENCOUNTERS Encounter Location Date Diagnosis [facility] [address] [id number] [address] Jun, [facility] [id number] [place] [address] May, Lymphadenopathy, axillary R59.0 [facility] [id number] [place] [address] May, [facility] [id number] [place] [address] Apr, [facility] [id number] [place] [address] Apr, [facility] [id number] [place] [address] Apr, [facility] [id number] [place] [address] Apr, [facility] [id number] [place] [address] Mar, Anxiety F41.9 ; 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 and Dementia with behavioral disturbance, unspecified dementia type F03.91 [facility] [id number] [place] [address] Mar, [facility] [id number] [place] [address] Mar, Diabetes E11.9 ; Hypothyroidism (acquired) E03.9 ; Hypertension I10 and Type 2 diabetes mellitus with diabetic neuropathy, 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 [facility] [id number] [place] [address] Jan, [facility] [id number] [place] [address] Dec, Anxiety F41.9 and 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 [facility] [id number] [place] [address] November, [facility] [id number] [place] [address] November, Chronic cough R05 and Cardiomegaly I51.7 [place] [address] [address] Oct, Medicare annual wellness visit, initial Z00.00 [...] seizures R56.1 and Encounter for immunization Z23 [place] [address] [address] Sep, [place] [address] [address] Jul, [place] [address] [address] Jul, [place] [address] [address] Jun, Anxiety F41.9 and 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 [place] [address] [address] Jun, Bronchitis J40 and Bilateral hearing loss, unspecified hearing loss type H91.93 [place] [address] [address] Jun, [place] [address] [address] Apr, [place] [address] [address] Apr, Encounter for immunization Z23 and Left breast mass N63.20 [place] [address] [address] Apr, [facility] [id number] [place] [address] Mar, CVA (cerebral vascular accident) I63.9 ; Hypertension I10 ; 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 ; Type 2 diabetes mellitus with diabetic neuropathy, 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 and Left breast mass N63 [facility] [id number] [place] [address] Mar, Mild episode of recurrent major depressive disorder F33.0 and Anxiety F41.9 [facility] [id number] [place] [address] Mar, Breast mass, left N63 [facility] [id number] [place] [address] Mar, Breast mass, left N63 [facility] [id number] [place] [address] Feb, [facility] [id number] [place] [address] Feb, [facility] [id number] [place] [address] Feb, [facility] [id number] [place] [address] Feb, [facility] [id number] [place] [address] Feb, Onychomycosis B35.1 and Type 2 diabetes mellitus with complication E11.8 [facility] [id number] [place] [address] Jan, Mild episode of recurrent major depressive disorder F33.0 and Anxiety F41.9 [facility] [id number] [place] [address] Jan, [facility] [id number] [place] [address] Dec, Onychomycosis due to dermatophyte B35.1 ; 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 ; Type 2 diabetes mellitus with diabetic neuropathy, 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 ; Falls frequently R29.6 ; Neuropathy G62.9 ; Dementia with behavioral disturbance, unspecified dementia type F03.91 ; Hypothyroidism (acquired) E03.9 and Left hand pain M79.642 [place] [address] [address] Dec, [facility] [address] [address] Dec, Hypothyroidism (acquired) E03.9 [place] [address] [address] Dec, 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 [place] [address] [address] November, Hypothyroidism (acquired) E03.9 [facility] [address] [address] Oct, [facility] [address] [address] Oct, 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.39 [facility] [id number] [place] [address] Oct, [facility] [address] [address] Oct, Dysuria R30.0 ; 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 ; Bilateral hearing loss, unspecified hearing loss type H91.93 and 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 [facility] [address] [address] Sep, [facility] [id number] [place] [address] Sep, Open wound of right great toe, initial encounter S91.101A [place] [id number] [place] [address] 13 Sep, 2016 Breast mass, left N63 ; Non-insulin dependent type 2 diabetes mellitus E11.9 and Vascular dementia without behavioral disturbance F01.50 [place] [place] [id number] [place] [address] Sep, [place] [address] [address] Jul, [facility] [id number] [place] [address] Jul, Diabetes E11.9 ; Diaper dermatitis L22 ; Candidiasis of skin and nail B37.2 ; Neuropathy G62.9 ; Status post stroke Z86.73 ; Unsteadiness on feet R26.81 and 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 [place] [id number] [place] [address] May, [place] [id number] [place] [address] May, [place] [id number] [place] [address] May, [facility] [id number] [place] [address] May, Dementia with behavioral disturbance, unspecified dementia type F03.91 [place] [place] [id number] [place] [address] 16 May, 2016 Dementia with behavioral disturbance, unspecified dementia type F03.91 ; Encounter for immunization Z23 and Diabetes E11.9 [place] [id number] [place] [address] May, [place] [id number] [place] [address] May, Neuropathy G62.9 [place] [id number] [place] [address] May, [place] [address] [address] Apr, Hypothyroidism (acquired) E03.9 [place] [address] [address] Apr, CVA (cerebral vascular accident) I63.9 ; Left hand weakness M62.81 and Neuropathy G62.9 [place] [address] [address] Apr, Hypokalemia E87.6 [place] [address] [address] Apr, Hypokalemia E87.6 [place] [address] [address] Mar, Diabetes E11.9 ; Edema, unspecified type R60.9 ; Anxiety disorder, unspecified F41.9 ; Pain in left knee M25.562 ; Other chronic pain G89.29 and Status post stroke Z86.73 [place] [address] [address] Mar, [place] [address] [address] Mar, [place] [address] [address] Mar, Neuropathy G62.9 [place] [address] [address] Feb, Anorexia R63.0 and Neuropathy G62.9 [place] [address] [address] Jan, Diabetes E11.9 ; Neuropathy G62.9 ; Panic attack F41.0 ; Pain in left knee M25.562 and Hypertension 401.9 [place] [address] [place] [id number] Jan, Weakness R53.1 ; Fatigue, unspecified type R53.83 ; Falling episodes R29.6 and Neuropathy G62.9 [place] [id number] [place] [address] Jan, Pain in left knee M25.562 [facility] [id number] [place] [address] Jan, [facility] [id number] [place] [address] Jan, [facility] [id number] [place] [address] Jan, [place] [id number] [place] [address] Dec, Diabetes E11.9 ; Neuropathy G62.9 and Dementia F03.90 [place] [id number] [place] [address] Dec, [place] [id number] [place] [address] Dec, Neuropathy G62.9 ; Diabetes E11.9 ; Anxiety F41.9 and Constipation, unspecified constipation type K59.00 [place] [id number] [place] [address] Dec, [place] [id number] [place] [address] Dec, Anxiety F41.9 [place] [id number] [place] [address] November, [place] [id number] [place] [address] November, Pain in left knee M25.562 ; Other chronic pain G89.29 ; Diabetes E11.9 and Left eye pain H57.12 [place] [id number] [place] [address] November, [facility] [address] [address] November, Hearing loss, unspecified laterality H91.90 [facility] [id number] [address] November, [facility] [id number] [place] [address] November, [facility] [id number] [place] [address] November, Pain in right knee M25.561 [facility] [id number] [place] [address] November, [facility] [id number] [place] [address] Oct, [facility] [id number] [place] [address] Oct, [facility] [id number] [place] [address] Oct, Edema of left lower extremity R60.0 ; Diabetes E11.9 ; 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 and Anxiety disorder, unspecified F41.9 [facility] [address] [address] Oct, Panic attack F41.0 [facility] [id number] [address] 14 Oct, 2015 [facility] [id number] [place] [address] 13 Oct, 2015 CVA (cerebral vascular accident) I63.9 [facility] [address] [address] Oct, [facility] [id number] [place] [address] Oct, Diabetes E11.9 ; Hypertension I10 and Dementia F03.90 [facility] [id number] [place] [address] Sep, [facility] [id number] [place] [address] Sep, [facility] [id number] [place] [address] Sep, Diabetes E11.9 ; 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 ; Onychomycosis B35.1 and Fatigue R53.83 [facility] [id number] [place] [address] Aug, [place] [id number] [place] [address] Aug, [facility] [id number] [place] [address] Jul, [facility] [id number] [place] [address] Jul, [facility] [id number] [place] [address] Jun, 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 [place] [id number] [place] [address] Jun, Anxiety disorder, unspecified F41.9 and Major depressive disorder, single episode, moderate F32.1 [facility] [id number] [place] [address] Jun, [facility] [id number] [place] [address] Jun, [facility] [id number] [place] [address] 24 May, 2015 Left knee pain M25.562 [facility] [id number] [place] [address] May, [facility] [id number] [place] [address] May, [facility] [id number] [place] [address] May, [facility] [id number] [place] [address] May, Hypertension I10 ; Diabetes E11.9 and Depression F32.9 [facility] [address] [address] May, [facility] [address] [address] Apr, Left knee pain M25.562 ; Type 2 diabetes mellitus with complication E11.8 and Encounter for immunization Z23 [facility] [address] [address] Apr, [facility] [id number] [place] [address] Apr, [facility] [id number] [place] [address] Mar, [facility] [id number] [place] [address] Mar, Silvestre stanley 727.51 [facility] [id number] [place] [address] Mar, [facility] [id number] [place] [address] Mar, [facility] [id number] [place] [address] Mar, [facility] [id number] [place] [address] Feb, [facility] [id number] [place] [address] Feb, [facility] [address] [address] Feb, Hypertension 401.9 and Diabetes 250.00 [facility] [address] [address] Jan, [facility] [id number] [address] Jan, Diabetes 250.00 [facility] [id number] [place] [address] Jan, [facility] [id number] [place] [address] Jan, [facility] [id number] [address] Dec, Diabetes 250.00 and Forgetfulness 780.99 [facility] [id number] [place] [address] Dec, [facility] [address] [address] Dec, Diabetes mellitus 250.00 [facility] [address] [address] Dec, [facility] [address] [address] Dec, [facility] [address] [address] Dec, [facility] [address] [address] Dec, Diabetes 250.00 and Dysthymia 300.4 [facility] [address] [address] Dec, [facility] [address] [address] Dec, Grief 309.0 and Diabetes mellitus 250.00 [facility] [address] [id number] [place] [address] Oct, [facility] [place] [facility] [address] [id number] [place] [address] Oct, [facility] [place] [facility] [address] [id number] [place] [address] Jul, [facility] [place] [facility] [address] [id number] [place] [address] Jul, [facility] [place] [facility] [address] [id number] [place] [address] Jul, [facility] [place] [facility] [address] [id number] [place] [address] Jul, [facility] [place] [facility] [address] [id number] [place] [address] Jul, [facility] [place] [facility] [address] [id number] [place] [address] May, [facility] [place] [facility] [address] [id number] [place] [address] May, [facility] [place] [facility] [address] [id number] [place] [address] Apr, [facility] [place] [facility] [address] [id number] [place] [address] Apr, [facility] [place] [facility] [address] [id number] [place] [address] Mar, [facility] [place] [facility] [address] [id number] [place] [address] Mar, [facility] [place] [facility] [address] [id number] [place] [address] Feb, [facility] [place] [facility] [address] [id number] [place] [address] Feb, [facility] [place] [facility] [address] [id number] [place] [address] Feb, [facility] [place] [facility] [address] [id number] [place] [address] Feb, [facility] [place] [facility] [address] [id number] [place] [address] Feb, [facility] [place] [facility] [address] [id number] [place] [address] Feb, [facility] [place] [facility] [address] [id number] [place] [address] November, [facility] [place] [facility] [address] [id number] [place] [address] November, [facility] [place] [facility] [address] [id number] [place] [address] Sep, [facility] [place] [facility] [address] [id number] [place] [address] Sep, [facility] [place] [facility] [address] [id number] [place] [address] Sep, [facility] [place] [facility] [address] [id number] [place] [address] Sep, [facility] [place] [facility] [address] [id number] [place] [address] Sep, [facility] [place] [facility] [address] [id number] [place] [address] Sep, [facility] [place] [facility] [address] [id number] [place] [address] Sep, [facility] [place] [facility] [address] [id number] [place] [address] Sep, [facility] [place] [facility] [address] [id number] [place] [address] Aug, [facility] [place] [facility] [address] [id number] [place] [address] Aug, [facility] [place] [facility] [address] [id number] [place] [address] Jul, [facility] [address] [id number] [place] [address] Jul, [facility] [place] [facility] [address] [id number] [place] [address] Jul, [facility] [address] [id number] [place] [address] Jul, [facility] [address] [id number] [place] [address] Jun, [facility] [address] [id number] [place] [address] Jun, [facility] [address] [id number] [place] [address] May, [facility] [address] [id number] [place] [address] May, [facility] [address] [id number] [place] [address] May, [facility] [address] [id number] [place] [address] May, [facility] [address] [id number] [place] [address] May, [facility] [place] [facility] [address] [id number] [place] [address] May, [facility] [address] [id number] [place] [address] Apr, [facility] [place] [facility] [address] [id number] [place] [address] Apr, [facility] [place] [facility] [address] [id number] [place] [address] Apr, [facility] [place] [facility] [address] [id number] [place] [address] Apr, [facility] [address] [id number] [place] [address] Mar, [facility] [place] [facility] [address] [id number] [place] [address] Mar, [facility] [address] [id number] [place] [address] Jan, [facility] [place] [facility] [address] [id number] [place] [address] Jan, [facility] [address] [id number] [place] [address] Jan, [facility] [address] [id number] [place] [address] November, [facility] [address] [id number] [place] [address] November, [facility] [address] [id number] [place] [address] November, [facility] [address] [id number] [place] [address] November, [facility] [address] [id number] [place] [address] Aug, [facility] [place] [facility] [address] [id number] [place] [address] Jul, [facility] [place] [facility] [address] [id number] [place] [address] Jul, [facility] [place] [facility] [address] [id number] [place] [address] Jul, [facility] [place] [facility] [address] [id number] [place] [address] Jun, [facility] [place] [facility] [address] [id number] [place] [address] Jun, [facility] [place] [facility] [address] [id number] [place] [address] May, [facility] [place] [facility] [address] [id number] [place] [address] May, [facility] [place] [facility] [address] [id number] [place] [address] Apr, [facility] [place] [facility] [address] [id number] [place] [address] Apr, [facility] [facility] [address] [id number] [place] [address] Apr, [facility] [place] [facility] [address] [id number] [place] [address] Apr, [facility] [place] [facility] [address] [id number] [place] [address] Apr, [facility] [place] [facility] [address] [id number] [place] [address] Apr, [facility] [place] [facility] [address] [id number] [place] [address] Apr, [facility] [place] [facility] [address] [id number] [place] [address] Apr, [facility] [place] [facility] [address] [facility] [id number] [place] [address] Apr, [facility] [place] [facility] [address] [id number] [place] [address] Mar, [facility] [place] [facility] [address] [id number] [place] [address] Feb, [facility] [place] [facility] [address] [id number] [place] [address] November, [facility] [place] [facility] [address] [facility] [id number] [place] [address] November, [facility] [place] [facility] [address] [facility] [id number] [place] [address] November, [facility] [place] [facility] [id number] [address] November, [facility] [id number] [place] [address] Jun, [facility] [id number] [place] [address] Jun, [facility] [id number] [place] [address] May, [facility] [address] [facility] [id number], [place] [address] May, [facility] [id number] [place] [address] Apr, [facility] [address] [id number] [address] Apr, [facility] [id number] [place] [address] May, [facility] [id number] [place] [address] Apr, [facility] [id number] [place] [address] Apr, [facility] [id number] [place] [address] Apr, [facility] [id number] [place] [address] Apr, IMMUNIZATIONS No Known Immunizations SOCIAL HISTORY Never Assessed REASON FOR VISIT painful Lump under rt arm -- jacquelin becerra PLAN OF CARE Activity Details VITAL SIGNS Height 62 in 2018-06-01 Weight 161,.0 lbs 2018-06-01 Temperature 97.8 degrees Fahrenheit Heart Rate 78 bpm 2018-06-01 Respiratory Rate 20 2018-06-01 BMI 29.44 kg/m2 2018-06-01 Blood pressure systolic 136 mmHg Blood pressure diastolic 88 mmHg 2018-11 -20 MEDICATIONS Medication Instructions Dosage Frequency Start Date End Date Duration Status BusPIRone HCl 10 MG Orally Twice a day 1 tablet 12h 30 days Active Aricept 5 MG TAKE ONE TABLET BY MOUTH ONCE DAILY AT BEDTIME Active Tylenol 325 MG Orally every 6 hrs 2 tablet as needed 6h 25 Aug, 2015 Active Blood Glucose Monitor System N/A test blood sugar 24h Jul, Active Sertraline HCl 100 MG TAKE ONE AND ONE-HALF TABLETS BY MOUTH ONCE DAILY. 90 Active Levetiracetam 500 MG Orally Twice a day 1 tablet 12h 90 Active Aggrenox 25-200 MG Orally Twice a day 1 capsule 12h 90 days Active MetFORMIN HCl ER 500 mg Orally 2 times a day 1 tablet 12h 90 days Active Levothyroxine Sodium 50 MCG TAKE ONE TABLET BY MOUTH ONCE DAILY IN THE MORNING ON AN EMPTY STOMACH 90 days Active Gabapentin 300 MG TAKE ONE CAPSULE BY MOUTH THREE TIMES DAILY 90 days Active Wheelchair - as directed Jan, Active Norvasc 10 mg Orally Once a day 1 tablet 24h Active Doxycycline Hyclate 100 mg Orally Twice a day 1 capsule 12h 20 May, 2018 10 day(s) Active Bydureon 2 MG Subcutaneous once weekly Inject 2mg 28 Active Carvedilol 3.125 MG TAKE ONE TABLET BY MOUTH TWICE DAILY 30 Active Test strips Test Strips ICD10- E11.9 2 times a day test blood sugar 12h Oct, Active Atorvastatin Calcium 40 MG TAKE ONE TABLET BY MOUTH ONCE DAILY AT BEDTIME 90 Active RESULTS No Results PROCEDURES Procedure Date Ordered Result Body Site [facility] VISIT ESTABLISHED PATIENT Jun 01, 2018 INSTRUCTIONS MEDICATIONS ADMINISTERED No Known Medications [...] Hospitalization History Post Stroke pt went to [facility] and then [facility] 10/15/15 Hospitalization History Hypotension, Wander ateral leg weakness--[facility] 01/15/16 Hospitalization History hypertension/chest pain 03/2017
--- OUTSIDE RECORDS SUMMARY | 2023-03-21 11:28 | XMS REPORT ---
Author Author Lady Dotson [facility] Organization [facility] Address Unknown Phone Unavailable Care Team Providers Care Print Color Operator Name Role Phone Migration, Doctor Unavailable Unavailable PROBLEMS Type Condition ICD9-CM Code [id number] Code Onset Dates Condition Status SNOMED Code Problem Panic attack F41.0 Active 894462155 Problem Hypertension I10 Active 23063256 Problem Anxiety F41.9 Active 95160754 Problem Other chronic pain G89.29 Active 39871 001 Problem Dementia with behavioral disturbance, unspecified dementia type F03.91 Active 9129138412412 Problem Hypothyroidism (acquired) E03.9 Active 839902425 Problem Vascular dementia without behavioral disturbance F01.50 Active 921403178 Problem 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 Active 843387563330 Problem Falls frequently R29.6 Active 6488423 02 Problem Type 2 diabetes mellitus with diabetic neuropathy, 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 Active 94915262 Problem 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 Active 92221098 1 Problem Cardiomegaly I51.7 Active 3300737 Problem 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 Active 733975806 Problem Diabetes E11.9 Active 245467122 Problem 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 Active 86153621 Problem History of cerebrovascular accident with hemiparesis or hemiplegia Z86.73 Active 502981399 Problem Bilateral hearing loss, unspecified hearing loss type H91.93 Active 66571276 Problem SNHL (sensory-neural hearing loss), 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 Active 325921286 Problem Left-sided muscle weakness M62.81 Active 976676765 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 61130595 ALLERGIES No Information ENCOUNTERS Encounter Location Date Diagnosis [facility] [address] [id number] [place] [address] Aug, [facility] [address] [id number] [place] [address] Aug, [facility] [id number] [place] [address] Jul, 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 ; Type 2 diabetes mellitus with diabetic neuropathy, 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 and Hypertension I10 [facility] [address] [address] May, [facility] [address] [address] Apr, [facility] [address] [address] Mar, Type 2 diabetes mellitus with diabetic neuropathy, 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 ; Hypertension I10 ; Diabetes E11.9 ; Dementia with behavioral disturbance, unspecified dementia type F03.91 ; Type 2 diabetes mellitus with complication, without long-term current use of insulin E11.8 and Neck pain M54.2 [facility] [address] [address] Mar, Dysuria R30.0 [id number] [place] [address] Feb, [facility] [address] [address] Feb, [place] [address] [address] Jan, [facility] [id number] [place] [address] Dec, [facility] [address] [address] Dec, [facility] [address] [address] Dec, [facility] [address] [address] November, Dental examination Z01.20 and Periodontitis K05.30 [facility] [address] [address] November, [facility] [address] [address] November, [facility] [address] [address] Oct, Encounter for Medicare annual wellness exam [...] unspecified hearing loss type H91.93 [place] [address] [address] Oct, [place] [address] [address] Oct, [place] [address] [address] Sep, [place] [address] [address] Aug, Anxiety F41.9 [place] [address] [address] Aug, Encounter for immunization Z23 [place] [address] [address] Jul, History of cerebrovascular accident with hemiparesis or hemiplegia Z86.73 ; Dementia with behavioral disturbance, unspecified dementia type F03.91 ; Hypothyroidism (acquired) E03.9 ; Type 2 diabetes mellitus with diabetic neuropathy, 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 and 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 [facility] [address] [address] Jul, [place] [address] [address] Jul, Type 2 diabetes mellitus with diabetic neuropathy, 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 ; Anxiety F41.9 ; Vascular dementia without behavioral disturbance F01.50 ; 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 ; Onychomycosis of great toe B35.1 ; 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 and Type 2 diabetes mellitus with complication, without long-term current use of insulin E11.8 [place] [address] [address] Jun, Hypertension I10 ; Anxiety F41.9 ; Dementia with behavioral disturbance, unspecified dementia type F03.91 ; 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 ; 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 ; Encounter for immunization Z23 ; Skin lesion of left leg L98.9 ; BMI 28.0-28.9,adult Z68.28 and Other chronic pain G89.29 [place] [address] [address] May, Lymphadenopathy, axillary R59.0 [place] [address] [address] May, [place] [address] [address] Apr, [place] [address] [address] Apr, [place] [address] [address] Apr, [place] [address] [address] Apr, [place] [address] [address] Mar, Anxiety F41.9 ; 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 and Dementia with behavioral disturbance, unspecified dementia type F03.91 [place] [address] [address] Mar, [place] [address] [address] Mar, Diabetes E11.9 ; Hypothyroidism (acquired) E03.9 ; Hypertension I10 and Type 2 diabetes mellitus with diabetic neuropathy, 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 [place] [address] [address] Jan, [place] [address] [address] Dec, Anxiety F41.9 and 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 [place] [address] [address] November, [place] [address] [address] November, Chronic cough R05 and Cardiomegaly I51.[address] [address] Oct, Medicare annual wellness visit, initial Z00.00 [...] seizures R56.1 and Encounter for immunization Z23 [address] [address] Sep, [place] [address] [address] Jul, [place] [address] [address] Jul, [address] [address] Jun, Anxiety F41.9 and 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 [address] Jun, Bronchitis J40 and Bilateral hearing loss, unspecified hearing loss type H91.93 [place] [address] [address] Jun, [place] [address] [address] Apr, [place] [address] [address] Apr, Encounter for immunization Z23 and Left breast mass N63.20 [place] [address] [address] Apr, [place] [address] [address] Mar, CVA (cerebral vascular accident) I63.9 ; Hypertension I10 ; 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 ; Type 2 diabetes mellitus with diabetic neuropathy, 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 and Left breast mass N63 [place] [address] [address] Mar, Mild episode of recurrent major depressive disorder F33.0 and Anxiety F41.9 [place] [address] [address] Mar, Breast mass, left N63 [place] [address] [address] Mar, Breast mass, left N63 [place] [address] [address] Feb, [place] [address] [address] Feb, [place] [address] [address] Feb, [place] [address] [address] Feb, [place] [address] [address] Feb, Onychomycosis B35.1 and Type 2 diabetes mellitus with complication E11.8 [place] [address] [address] Jan, Mild episode of recurrent major depressive disorder F33.0 and Anxiety F41.9 [place] [address] [address] Jan, [place] [address] [address] Dec, Onychomycosis due to dermatophyte B35.1 ; 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 ; Type 2 diabetes mellitus with diabetic neuropathy, 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 ; Falls frequently R29.6 ; Neuropathy G62.9 ; Dementia with behavioral disturbance, unspecified dementia type F03.91 ; Hypothyroidism (acquired) E03.9 and Left hand pain M79.642 [place] [address] [address] Dec, [place] [address] [address] Dec, Hypothyroidism (acquired) E03.9 [place] [address] [address] Dec, 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 [place] [address] [address] Sep, [facility] [address] [facility] [id number] [place] [address] Sep, Open wound of right great toe, initial encounter S91.101A [place] [address] [address] Sep, Breast mass, left N63 ; Non-insulin dependent type 2 diabetes mellitus E11.9 and Vascular dementia without behavioral disturbance F01.50 [place] [address] [address] Sep, [place] [address] [address] Jul, [address] [address] Jul, Diabetes E11.9 ; Diaper dermatitis L22 ; Candidiasis of skin and nail B37.2 ; Neuropathy G62.9 ; Status post stroke Z86.73 ; Unsteadiness on feet R26.81 and 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 [place] [address] [address] May, [place] [address] [address] May, [place] [address] [address] May, [address] [address] 17 May, 2016 Dementia with behavioral disturbance, unspecified dementia type F03.91 [place] [address] [address] 16 May, 2016 Dementia with behavioral disturbance, unspecified dementia type F03.91 ; Encounter for immunization Z23 and Diabetes E11.9 [place] [address] [address] May, [place] [address] [address] May, Neuropathy G62.9 [place] [address] [address] May, [place] [address] [address] Apr, Hypothyroidism (acquired) E03.9 [place] [address] [address] Apr, CVA (cerebral vascular accident) I63.9 ; Left hand weakness M62.81 and Neuropathy G62.9 [place] [address] [address] Apr, Hypokalemia E87.6 [place] [address] [address] Apr, Hypokalemia E87.6 [place] [address] [address] Mar, Diabetes E11.9 ; Edema, unspecified type R60.9 ; Anxiety disorder, unspecified F41.9 ; Pain in left knee M25.562 ; Other chronic pain G89.29 and Status post stroke Z86.73 [place] [address] [address] Mar, [place] [address] [address] Mar, [place] [address] [address] Mar, Neuropathy G62.9 [place] [address] [address] Feb, Anorexia R63.0 and Neuropathy G62.9 [place] [address] [address] Jan, Diabetes E11.9 ; Neuropathy G62.9 ; Panic attack F41.0 ; Pain in left knee M25.562 and Hypertension 401.[address] [place] [address] [address] Jan, Weakness R53.1 ; Fatigue, unspecified type R53.83 ; Falling episodes R29.6 and Neuropathy G62.9 [place] [address] [address] Jan, Pain in left knee M25.562 [place] [address] [address] Jan, [place] [address] [address] Jan, [place] [address] [address] Jan, [place] [address] [address] Dec, Diabetes E11.9 ; Neuropathy G62.9 and Dementia F03.90 [place] [address] [address] Dec, [place] [address] [address] Dec, Neuropathy G62.9 ; Diabetes E11.9 ; Anxiety F41.9 and Constipation, unspecified constipation type K59.00 [place] [address] [address] Dec, [place] [address] [address] Dec, Anxiety F41.9 [place] [address] [address] November, [place] [address] [address] November, Pain in left knee M25.562 ; Other chronic pain G89.29 ; Diabetes E11.9 and Left eye pain H57.12 [facility] [address] [address] November, [facility] [address] [address] November, Hearing loss, unspecified laterality H91.90 [facility] [address] [address] November, [facility] [address] [address] November, [facility] [address] [address] November, Pain in right knee M25.561 [place] [address] [address] November, [place] [address] [address] Oct, [facility] [address] [address] Oct, [facility] [address] [address] 26 Oct, 2015 Edema of left lower extremity R60.0 ; Diabetes E11.9 ; 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 I63.39 and Anxiety disorder, unspecified F41.9 [facility] [address] [address] 14 Oct, 2015 Panic attack F41.0 [facility] [address] [address] 14 Oct, 2015 [facility] [address] [address] 13 Oct, 2015 CVA (cerebral vascular accident) I63.9 [facility] [address] [address] 13 Oct, 2015 [facility] [address] [address] Oct, Diabetes E11.9 ; Hypertension I10 and Dementia F03.90 [facility] [address] [address] Sep, [facility] [address] [address] Sep, [facility] [address] [address] Sep, Diabetes E11.9 ; 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 ; Onychomycosis B35.1 and Fatigue R53.83 [facility] [address] [address] Aug, [place] [address] [address] Aug, [place] [address] [address] Jul, [facility] [address] [address] Jul, [facility] [address] [address] Jun, 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 [place] [address] [address] Jun, Anxiety disorder, unspecified F41.9 and Major depressive disorder, single episode, moderate F32.1 [place] [address] [address] Jun, [facility] [address] [address] Jun, [place] [address] [address] May, Left knee pain M25.562 [facility] [address] [address] May, [facility] [address] [place] [address] May, [facility] [address] [address] May, [facility] [address] [address] May, Hypertension I10 ; Diabetes E11.9 and Depression F32.9 [facility] [address] [address] May, [facility] [address] [address] Apr, Left knee pain M25.562 ; Type 2 diabetes mellitus with complication E11.8 and Encounter for immunization Z23 [facility] [address] [address] Apr, [facility] [address] [address] Apr, [facility] [address] [address] Mar, [facility] [address] [address] Mar, Bakers cyst 727.51 [facility] [address] [address] Mar, [facility] [address] [address] Mar, [facility] [address] [address] Mar, [facility] [address] [address] Feb, [facility] [address] [address] Feb, [facility] [id number] [place] [address] Feb, Hypertension 401.9 and Diabetes 250.00 [facility] [id number] [place] [address] Jan, [facility] [id number] [place] [address] Jan, Diabetes 250.00 [facility] [id number] [place] [address] Jan, [facility] [id number] [place] [address] Jan, [facility] [id number] [place] [address] Dec, Diabetes 250.00 and Forgetfulness 780.99 [facility] [id number] [place] [address] Dec, [facility] [id number] [place] [address] Dec, Diabetes mellitus 250.00 [facility] [id number] [place] [address] Dec, [facility] [id number] [place] [address] Dec, [facility] [id number] [place] [address] Dec, [facility] [id number] [place] [address] 16 Dec, 2014 Diabetes 250.00 and Dysthymia 300.4 [facility] [id number] [place] [address] Dec, [facility] [id number] [place] [address] 09 Dec, 2014 Grief 309.0 and Diabetes mellitus 250.00 [facility] [id number] [place] [address] 14 Oct, 2014 [facility] [id number] [place] [address] Oct, [facility] [id number] [place] [address] Jul, [facility] [address] [facility] [id number] [facility] [place] [address] Jul, [facility] [address] [id number] [place] [address] Jul, [facility] [address] [id number] [place] [address] Jul, [facility] [address] [id number] [place] [address] Jul, [facility] [address] [id number] [facility] [place] [address] May, [facility] [address] [id number] [place] [address] May, [facility] [address] [id number] [place] [address] Apr, [facility] [address] [id number] [place] [address] Apr, [facility] [address] [id number] [place] [address] Mar, [facility] [address] [id number] [place] [address] Mar, [facility] [address] [id number] [place] [address] Feb, [facility] [address] [id number] [place] [address] Feb, [facility] [address] [id number] [place] [address] Feb, [facility] [address] [id number] [place] [address] Feb, [facility] [address] [id number] [place] [address] Feb, [facility] [address] [id number] [place] [address] Feb, [facility] [address] [id number] [place] [address] November, [facility] [address] [facility] [id number] [place] [address] November, [facility] [address] [id number] [place] [address] Sep, [facility] [address] [id number] [place] [address] Sep, [facility] [address] [id number] [place] [address] Sep, [facility] [address] [id number] [place] [address] Sep, [facility] [address] [id number] [place] [address] Sep, [facility] [address] [id number] [place] [address] Sep, [facility] [address] [id number] [place] [address] Sep, [facility] [address] [id number] [place] [address] Sep, [facility] [address] [id number] [place] [address] Aug, [facility] [address] [id number] [place] [address] Aug, [facility] [address] [id number] [place] [address] Jul, [facility] [address] [id number] [place] [address] Jul, [facility] [address] [id number] [place] [address] Jul, [facility] [address] [id number] [place] [address] Jul, [facility] [address] [id number] [place] [address] Jun, [facility] [address] [id number] [place] [address] Jun, [facility] [address] [id number] [place] [address] May, [facility] [address] [id number] [place] [address] May, [facility] [address] [id number] [place] [address] May, [facility] [address] [id number] [place] [address] May, [facility] [address] [id number] [place] [address] May, [facility] [address] [id number] [place] [address] May, [facility] [address] [id number] [place] [address] Apr, [facility] [address] [id number] [place] [address] Apr, [facility] [address] [id number] [place] [address] Apr, [facility] [address] [id number] [place] [address] Apr, [facility] [address] [id number] [place] [address] Mar, [facility] [address] [id number] [place] [address] Mar, [facility] [address] [id number] [place] [address] Jan, [facility] [address] [id number] [place] [address] Jan[facility] [address] [id number] [place] [address] Jan, [facility] [address] [id number] [place] [address] November, [facility] [address] [id number] [place] [address] November, [facility] [address] [id number] [place] [address] November, [facility] [address] [id number] [place] [address] November, [facility] [address] [id number] [place] [address] Aug, [facility] [address] [id number] [place] [address] Jul, [facility] [address] [id number] [place] [address] Jul, [facility] [address] [id number] [place] [address] Jul, [facility] [id number] [place] [address] Jun, [facility] [address] [id number] [place] [address] Jun, [facility] [id number] [place] [address] May, [facility] [address] [id number] [place] [address] May, [facility] [id number] [place] [address] Apr, [facility] [address] [id number] [place] [address] Apr, [facility] [id number] [place] [address] Apr, [facility] [address] [id number] [place] [address] Apr, [facility] [address] [id number] [place] [address] Apr, [facility] [address] [id number] [place] [address] Apr, [facility] [address] [id number] [place] [address] Apr, [facility] [address] [id number] [place] [address] Apr, [facility] [address] [id number] [place] [address] Apr, [facility] [address] [id number] [place] [address] Mar, [facility] [address] [id number] [place] [address] Feb, [facility] [address] [id number] [place] [address] November, [facility] [id number] [place] [address] November, [facility] [address] [id number] [place] [address] November, [facility] [address] [id number] [place] [address] November, [facility] [address] [id number] [place] [address] Jun, [facility] [address] [id number] [place] [address] Jun, [facility] [address] [id number] [place] [address] May, [facility] [address] [id number] [place] [address] May, [facility] [id number] [place] [address] Apr, [facility] [address] [id number] [place] [address] Apr, [facility] [address] [id number] [place] [address] May, [facility] [address] [id number] [place] [address] Apr, [facility] [address] [id number] [place] [address] Apr, [facility] [address] [id number] [place] [address] Apr, [facility] [address] [id number] [place] [address] Apr, IMMUNIZATIONS No Known Immunizations SOCIAL HISTORY [...] Hospitalization History Post Stroke pt went to [facility] and then [facility] 10/15/15 Hospitalization History Hypotension, Wander ateral leg weakness--Via [facility] 01/15/16 Hospitalization History hypertension/chest pain 03/2017
--- OUTSIDE RECORDS SUMMARY | 2023-03-21 11:28 | XMS REPORT ---
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 Active 820727376668 Problem Dementia with behavioral disturbance, unspecified dementia type F03.91 Active 7780778864095 Problem 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 Active 43702888 Problem Vascular dementia without behavioral disturbance F01.50 Active 685141937 Problem Type 2 diabetes mellitus with diabetic neuropathy, 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 Active 25450144 Problem 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 Active 51378190 1 Problem Bilateral hearing loss, unspecified hearing loss type H91.93 Active 89510571 Problem Diabetes E11.9 Active 738725574 Problem Falls frequently R29.6 Active 4754357 02 Problem History of cerebrovascular accident with hemiparesis or hemiplegia Z86.73 Active 457062141 Problem Type 2 diabetes mellitus with complication, without long-term current use of insulin E11.8 Active 60027881 Problem 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 Active 288918536 Problem Hypertension I10 Active 66864977 Problem SNHL (sensory-neural hearing loss), 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 Active 464297569 Problem Left-sided muscle weakness M62.81 Active 996616648 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 47709526 Problem Cardiomegaly I51.7 Active 0889640 ALLERGIES No Information ENCOUNTERS Encounter Location Date Diagnosis [facility] [address] [facility] [id number] [address] 18 Mar, 2019 Type 2 diabetes mellitus with diabetic neuropathy, 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 ; Hypertension I10 ; Diabetes E11.9 ; Dementia with behavioral disturbance, unspecified dementia type F03.91 ; Type 2 diabetes mellitus with complication, without long-term current use of insulin E11.8 and Neck pain M54.2 [facility] [address], [place] [address] 16 Mar, [address] [address] Feb, [facility] [address], [place] [address] Feb, [facility] [id number] [place] [address] Jan, [facility] [id number] [address] Dec, [facility] [id number] [place] [address] Dec, [facility] [id number] [address] Dec, [facility] [id number] [place] [address] November, Dental examination Z01.20 and Periodontitis K05.30 [facility] [address], [place] [address] November, [facility] [address], [place] [address] November, [facility] [address], [place] [address] Oct, Encounter for Medicare annual wellness exam [...] hearing loss, unspecified hearing loss type H91.93 [facility] [id number] [place] [address] Oct, [facility] [address] [address] Oct, [facility] [id number] [place] [address] Sep, [facility] [address] [address] Aug, Anxiety F41.9 [facility] [id number] [place] [address] Aug, Encounter for immunization Z23 [facility] [id number] [place] [address] Jul, History of cerebrovascular accident with hemiparesis or hemiplegia Z86.73 ; Dementia with behavioral disturbance, unspecified dementia type F03.91 ; Hypothyroidism (acquired) E03.9 ; Type 2 diabetes mellitus with diabetic neuropathy, 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 and 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 [facility] [id number] [place] [address] Jul, [facility] [id number] [place] [address] Jul, Type 2 diabetes mellitus with diabetic neuropathy, 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 ; Anxiety F41.9 ; Vascular dementia without behavioral disturbance F01.50 ; 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 ; Onychomycosis of great toe B35.1 ; Non insulin dependent diabetes mellitus with ophthalmic complication E11.39 and Type 2 diabetes mellitus with complication, without long-term current use of insulin E11.8 [facility] [id number] [place] [address] Jun, Hypertension I10 ; Anxiety F41.9 ; Dementia with behavioral disturbance, unspecified dementia type F03.91 ; 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 ; 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 ; Encounter for immunization Z23 ; Skin lesion of left leg L98.9 ; BMI 28.0-28.9,adult Z68.28 and Other chronic pain G89.29 [facility] [address] [address] May, Lymphadenopathy, axillary R59.0 [facility] [address] [address] May, [facility] [address] [address] Apr, [facility] [address] [address] Apr, [facility] [address] [address] Apr, [facility] [address] [address] Apr, [facility] [address] [address] Mar, Anxiety F41.9 ; 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 and Dementia with behavioral disturbance, unspecified dementia type F03.91 [facility] [id number] [place] [address] Mar, [facility] [id number] [place] [address] Mar, Diabetes E11.9 ; Hypothyroidism (acquired) E03.9 ; Hypertension I10 and Type 2 diabetes mellitus with diabetic neuropathy, 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 [facility] [id number] [place] [address] Jan, [facility] [address] [address] Dec, Anxiety F41.9 and 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 [facility] [address] [address] November, [facility] [address] [address] November, Chronic cough R05 and Cardiomegaly I51.7 [facility] [address] [address] Oct, Medicare annual wellness visit, initial Z00.00 [...] seizures R56.1 and Encounter for immunization Z23 [facility] [address] [address] Sep, [facility] [address] [address] Jul, [facility] [address] [address] Jul, [facility] [address] [address] Jun, Anxiety F41.9 and Moderate episode of recurrent major depressive disorder F33.1 [facility] [address] [address] Jun, Bronchitis J40 and Bilateral hearing loss, unspecified hearing loss type H91.93 [facility] [address] [address] Jun, [facility] [address], [place] [address] Apr, [facility] [id number] [place] [address] Apr, Encounter for immunization Z23 and Left breast mass N63.20 [facility] [id number] [place] [address] Apr, [facility] [id number] [place] [address] Mar, CVA (cerebral vascular accident) I63.9 ; Hypertension I10 ; Non 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.39 ; Type 2 diabetes mellitus with diabetic neuropathy, 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 and Left breast mass N63 [facility] [id number] [place] [address] Mar, Mild episode of recurrent major depressive disorder F33.0 and Anxiety F41.9 [facility] [id number] [place] [address] Mar, Breast mass, left N63 [facility] [id number] [place] [address] Mar, Breast mass, left N63 [facility] [id number] [place] [address] Feb, [facility] [id number] [place] [address] Feb, [facility] [id number] [place] [address] Feb, [facility] [id number] [place] [address] Feb, [facility] [id number] [place] [address] Feb, Onychomycosis B35.1 and Type 2 diabetes mellitus with complication E11.8 [facility] [address] [place] [address] Jan, Mild episode of recurrent major depressive disorder F33.0 and Anxiety F41.9 [facility] [id number] [place] [address] Jan, [place] [id number] [place] [address] Dec, Onychomycosis due to dermatophyte B35.1 ; Moderate episode of recurrent major depressive disorder F33.1 ; Type 2 diabetes mellitus with diabetic neuropathy, 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 ; Falls frequently R29.6 ; Neuropathy G62.9 ; Dementia with behavioral disturbance, unspecified dementia type F03.91 ; Hypothyroidism (acquired) E03.9 and Left hand pain M79.642 [facility] [id number] [place] [address] Dec, [facility] [id number] [place] [address] Dec, Hypothyroidism (acquired) E03.9 [facility] [id number] [place] [address] Dec, Non insulin dependent diabetes mellitus with ophthalmic complication E11.39 [facility] [id number] [place] [address] November, Hypothyroidism (acquired) E03.9 [facility] [id number] [place] [address] Oct, [facility] [id number] [place] [address] Oct, Non insulin dependent diabetes mellitus with ophthalmic complication E11.39 [facility] [id number] [place] [address] Oct, [facility] [id number] [place] [address] Oct, Dysuria R30.0 ; Non 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.39 ; Bilateral hearing loss, unspecified hearing loss type H91.93 and 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 [facility] [id number] [place] [address] Sep, [facility] [id number] [place] [address] Sep, Open wound of right great toe, initial encounter S91.101A [facility] [facility] [address] [address] Sep, Breast mass, left N63 ; Non-insulin dependent type 2 diabetes mellitus E11.9 and Vascular dementia without behavioral disturbance F01.50 [facility] [address] [address] Sep, [facility] [address] [address] Jul, [facility] [id number] [place] [address] Jul, Diabetes E11.9 ; Diaper dermatitis L22 ; Candidiasis of skin and nail B37.2 ; Neuropathy G62.9 ; Status post stroke Z86.73 ; Unsteadiness on feet R26.81 and 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 [facility] [id number] [place] [address] May, [facility] [id number] [place] [address] May, [facility] [id number] [place] [address] May, [facility] [facility] [address] [address] 17 May, 2016 Dementia with behavioral disturbance, unspecified dementia type F03.91 [facility] [id number] [place] [address] 16 May, 2016 Dementia with behavioral disturbance, unspecified dementia type F03.91 ; Encounter for immunization Z23 and Diabetes E11.9 [facility] [facility] [address] [address] May, [facility] [facility] [address] [address] May, Neuropathy G62.9 [facility] [address] [address] May, [facility] [facility] [address] [address] Apr, Hypothyroidism (acquired) E03.9 [facility] [address] [address] Apr, CVA (cerebral vascular accident) I63.9 ; Left hand weakness M62.81 and Neuropathy G62.9 [facility] [address] [address] Apr, Hypokalemia E87.6 [place] [facility] [address] [address] Apr, Hypokalemia E87.6 [facility] [address] [address] Mar, Diabetes E11.9 ; Edema, unspecified type R60.9 ; Anxiety disorder, unspecified F41.9 ; Pain in left knee M25.562 ; Other chronic pain G89.29 and Status post stroke Z86.73 [facility] [id number] [place] [address] 15 Mar, 2016 [facility] [address] [address] Mar, [facility] [address] [address] Mar, Neuropathy G62.9 [facility] [address] [address] Feb, Anorexia R63.0 and Neuropathy G62.9 [facility] [id number] [place] [address] Jan, Diabetes E11.9 ; Neuropathy G62.9 ; Panic attack F41.0 ; Pain in left knee M25.562 and Hypertension 401.9 [facility] [id number] [place] [address] Jan, Weakness R53.1 ; Fatigue, unspecified type R53.83 ; Falling episodes R29.6 and Neuropathy G62.9 [facility] [id number] [place] [address] Jan, Pain in left knee M25.562 [facility] [id number] [place] [address] Jan, [facility] [address] [address] Jan, [facility] [id number] [place] [address] Jan, [facility] [address] [address] Dec, Diabetes E11.9 ; Neuropathy G62.9 and Dementia F03.90 [facility] [id number] [place] [address] Dec, [facility] [address] [address] Dec, Neuropathy G62.9 ; Diabetes E11.9 ; Anxiety F41.9 and Constipation, unspecified constipation type K59.00 [facility] [id number] [place] [address] Dec, [facility] [id number] [place] [address] Dec, Anxiety F41.9 [facility] [address] [address] November, [facility] [address] [place] [address] November, Pain in left knee M25.562 ; Other chronic pain G89.29 ; Diabetes E11.9 and Left eye pain H57.12 [facility] [id number] [place] [address] November, [facility] [id number] [place] [address] November, Hearing loss, unspecified laterality H91.90 [facility] [id number] [place] [address] November, [facility] [id number] [place] [address] November, [facility] [id number] [place] [address] November, Pain in right knee M25.561 [facility] [id number] [place] [address] November, [facility] [id number] [place] [address] Oct, [facility] [address], [place] [address] Oct, [facility] [id number] [place] [address] Oct, Edema of left lower extremity R60.0 ; Diabetes E11.9 ; 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 I63.39 and Anxiety disorder, unspecified F41.9 [facility] [id number] [place] [address] Oct, Panic attack F41.0 [facility] [address] [place] [address] Oct, [facility] [address], [place] [address] Oct, CVA (cerebral vascular accident) I63.9 [facility] [id number] [place] [address] Oct, [facility] [id number] [place] [address] Oct, Diabetes E11.9 ; Hypertension I10 and Dementia F03.90 [facility] [facility] [id number] [place] [address] Sep, [facility] [id number] [place] [address] Sep, [facility] [id number] [place] [address] Sep, Diabetes E11.9 ; 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 ; Onychomycosis B35.1 and Fatigue R53.83 [facility] [id number] [place] [address] Aug, [facility] [id number] [place] [address] Aug, [facility] [facility] [id number] [place] [address] Jul, [facility] [id number] [place] [address] Jul, [facility] [id number] [place] [address] Jun, 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 [facility] [id number] [place] [address] Jun, Anxiety disorder, unspecified F41.9 and Major depressive disorder, single episode, moderate F32.1 [facility] [id number] [place] [address] Jun, [facility] [id number] [place] [address] Jun, [facility] [id number] [place] [address] May, Left knee pain M25.562 [facility] [id number] [place] [address] May, [facility] [address] [address] May, [facility] [id number] [place] [address] May, [facility] [address] [address] May, Hypertension I10 ; Diabetes E11.9 and Depression F32.9 [facility] [address] [address] May, [facility] [id number] [place] [address] Apr, Left knee pain M25.562 ; Type 2 diabetes mellitus with complication E11.8 and Encounter for immunization Z23 [facility] [id number] [place] [address] Apr, [facility] [id number] [place] [address] Apr, [facility] [id number] [place] [address] Mar, [facility] [id number] [place] [address] Mar, Silvestre stanley 727.51 [facility] [id number] [place] [address] Mar, [facility] [id number] [place] [address] Mar, [facility] [address], [place] [address] Mar, [facility] [address], [place] [address] Feb, [facility] [address], [place] [address] Feb, [facility] [id number] [place] [address] Feb, Hypertension 401.9 and Diabetes 250.00 [facility] [address], [place] [address] Jan, [facility] [address] [place] [address] Jan, Diabetes 250.00 [facility] [id number] [place] [address] Jan, [facility] [address], [place] [address] Jan, [facility] [address] [place] [address] Dec, Diabetes 250.00 and Forgetfulness 780.99 [facility] [address], [place] [address] Dec, [facility] [address], [place] [address] Dec, Diabetes mellitus 250.00 [facility] [address], [place] [address] Dec, [facility] [address], [place] [address] Dec, [facility] [address], [place] [address] Dec, [facility] [address] [place] [address] 16 Dec, 2014 Diabetes 250.00 and Dysthymia 300.4 [facility] [id number] [place] [address] Dec, [facility] [address] [address] Dec, Grief 309.0 and Diabetes mellitus 250.00 [facility] [id number] [place] [address] 14 Oct, 2014 [facility] [address] [facility] [id number] [place] [address] Oct, [facility] [id number] [place] [address] Jul, [facility] [id number] [place] [address] Jul, [facility] [id number] [place] [address] Jul, [facility] [id number], [place] [address] Jul, [facility] [id number] [place] [id number] Jul, [facility] [id number], [place] [address] May, [facility] [id number] [place] [address] May, [facility] [id number] [address] Apr, [facility] [id number] [place] [id number] Apr, [facility] [id number], [place] [address] Mar, [facility] [id number] [place] [id number] Mar, [facility] [place] [facility] [address] [id number] [place] [address] Feb, [facility] [place] [facility] [address] [id number] [place] [address] Feb, [facility] [place] [facility] [address] [id number] [place] [address] Feb, [facility] [place] [facility] [address] [id number] [place] [address] Feb, [facility] [place] [facility] [address] [id number] [place] [address] Feb, [facility] [place] [facility] [address] [id number] [place] [address] Feb, [facility] [place] [facility] [address] [id number] [place] [address] November, [facility] [place] [facility] [address] [id number] [place] [address] November, [facility] [place] [facility] [address] [id number] [place] [address] Sep, [facility] [place] [facility] [address] [id number] [place] [address] Sep, [facility] [place] [facility] [address] [id number] [place] [address] Sep, [facility] [place] [facility] [address] [id number] [place] [address] Sep, [facility] [place] [facility] [address] [id number] [place] [address] Sep, [facility] [place] [facility] [address] [id number] [place] [address] Sep, [facility] [place] [facility] [address] [id number] [place] [address] Sep, [facility] [place] [facility] [address] [id number] [place] [address] Sep, [facility] [address] [id number] [place] [address] Aug, [facility] [place] [facility] [address] [id number] [place] [address] Aug, [facility] [address] [id number] [place] [address] Jul, [facility] [place] [facility] [address] [id number] [place] [address] Jul, [facility] [address] [id number] [place] [address] Jul, [facility] [address] [id number] [place] [address] Jul, [facility] [address] [id number] [place] [address] Jun, [facility] [address] [id number] [place] [address] Jun, [facility] [address] [id number] [place] [address] May, [facility] [address] [id number] [place] [address] May, [facility] [place] [facility] [address] [id number] [place] [address] May, [facility] [place] [facility] [address] [id number] [place] [address] May, [facility] [place] [facility] [address] [id number] [place] [address] May, [facility] [place] [facility] [address] [id number] [place] [address] May, [facility] [place] [facility] [address] [id number] [place] [address] Apr, [facility] [address] [id number] [place] [address] 17 Apr, 2013 [facility] [place] [facility] [address] [id number] [place] [address] Apr, [facility] [place] [facility] [address] [id number] [place] [address] 16 Apr, 2013 [facility] [place] [facility] [address] [id number] [place] [address] 27 Mar, 2013 [facility] [address] [id number] [place] [address] Mar, [facility] [place] [facility] [address] [id number] [place] [address] Jan, [facility] [place] [facility] [address] [id number] [place] [address] Jan, [facility] [place] [facility] [address] [id number] [place] [address] Jan, [facility] [place] [facility] [address] [id number] [place] [address] November, [facility] [place] [facility] [address] [id number] [place] [address] November, [facility] [place] [facility] [address] [id number] [place] [address] November, [facility] [place] [facility] [address] [id number] [place] [address] November, [facility] [place] [facility] [address] [id number] [place] [address] Aug, [facility] [place] [facility] [address] [id number] [place] [address] Jul, [facility] [place] [facility] [address] [id number] [place] [address] Jul, [facility] [place] [facility] [address] [id number] [place] [address] Jul, [facility] [place] [facility] [address] [id number] [place] [address] Jun, [facility] [place] [facility] [address] [id number] [place] [address] Jun, [facility] [place] [facility] [address] [id number] [place] [address] May, [facility] [place] [facility] [address] [id number] [place] [address] May, [facility] [place] [facility] [address] [id number] [place] [address] Apr, [facility] [place] [facility] [address] [id number] [place] [address] Apr, [facility] [place] [facility] [address] [id number] [place] [address] Apr, [facility] [place] [facility] [address] [id number] [place] [address] Apr, [facility] [place] [facility] [address] [id number] [place] [address] Apr, [facility] [place] [facility] [address] [facility] [id number] [place] [address] Apr, [facility] [place] [facility] [address] [id number] [place] [address] Apr, [facility] [place] [facility] [address] [id number] [place] [address] Apr, [facility] [place] [facility] [address] [id number] [place] [address] Apr, [facility] [place] [facility] [address] [facility] [id number] [place] [address] Mar, [facility] [place] [facility] [address] [facility] [id number] [place] [address] Feb, [facility] [place] [facility] [address] [id number], [place] [address] November, [facility] [address] [facility] [id number], [place] [address] November, [facility] [address] [facility] [id number], [place] [address] November, [facility] [address] [facility] [id number] [place] [address] November, [facility] [address] [id number] [place] [address] Jun, [facility] [address] [facility] [id number] [place] [address] Jun, [facility] [address] [facility] [id number] [place] [address] May, [facility] [address] [facility] [id number], [place] [address] May, [facility] [address] [facility] [id number], [place] [address] Apr, [facility] [address] [facility] [id number], [place] [address] Apr, [facility] [address] [facility] [id number], [place] [address] May, [facility] [address] [facility] [id number], [place] [address] Apr, [facility] [address] [facility] [id number], [place] [address] Apr, [facility] [address] [facility] [id number], [place] [address] Apr, [facility] [address] [facility] [id number], [place] [address] Apr, IMMUNIZATIONS No Known Immunizations SOCIAL HISTORY Never Assessed REASON FOR VISIT PLAN OF CARE VITAL SIGNS MEDICATIONS No [...] Hospitalization History Post Stroke pt went to [facility] and then [facility] 10/15/15 Hospitalization History Hypotension, Wander ateral leg weakness--[facility] 01/15/16 Hospitalization History hypertension/chest pain 03/2017
--- OUTSIDE RECORDS SUMMARY | 2023-03-21 11:28 | XMS REPORT ---
Author Author Lady SIMMONS Organization [facility] [place] Address [address] [place] [address] Care Team Providers Care Health And Safety Instructor Name Role Phone OMI SIMMONS Unavailable PROBLEMS Type Condition ICD9-CM Code [id number] Code Onset Dates Condition Status SNOMED Code Problem Panic attack F41.0 Active 223703972 Problem Hypertension I10 Active 09829160 Problem Anxiety F41.9 Active 90365945 Problem Other chronic pain G89.29 Active 79313 001 Problem Dementia with behavioral disturbance, unspecified dementia type F03.91 Active 1764528090740 Problem Hypothyroidism (acquired) E03.9 Active 277092534 Problem Vascular dementia without behavioral disturbance F01.50 Active 516522998 Problem 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 Active 770408434306 Problem Falls frequently R29.6 Active 6673182 02 Problem Type 2 diabetes mellitus with diabetic neuropathy, 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 Active 05937415 Problem 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 Active 91990061 1 Problem Cardiomegaly I51.7 Active 9146073 Problem 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 Active 859602417 Problem Diabetes E11.9 Active 362380044 Problem 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.39 Active 70853888 Problem History of cerebrovascular accident with hemiparesis or hemiplegia Z86.73 Active 770096614 Problem Bilateral hearing loss, unspecified hearing loss type H91.93 Active 12876289 Problem SNHL (sensory-neural hearing loss), 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 Active 496222395 Problem Left-sided muscle weakness M62.81 Active 989930806 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 62538220 ALLERGIES No Information ENCOUNTERS Encounter Location Date Diagnosis [facility] [address] [id number] [place] [address] 24 Aug, 2019 [facility] [address] [id number] [place] [address] Aug, [facility] [address] [id number] [place] [address] Aug, [facility] [address] [address] Jul, 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.39 ; Type 2 diabetes mellitus with diabetic neuropathy, 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 and Hypertension I10 [facility] [address] [address] May, [facility] [address] [address] Apr, [facility] [address] [address] Mar, Type 2 diabetes mellitus with diabetic neuropathy, 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 ; Hypertension I10 ; Diabetes E11.9 ; Dementia with behavioral disturbance, unspecified dementia type F03.91 ; Type 2 diabetes mellitus with complication, without long-term current use of insulin E11.8 and Neck pain M54.2 [facility] [id number] [place] [address] Mar, Dysuria R30.0 [id number] [place] [address] Feb, [facility] [id number] [place] [address] Feb, [facility] [id number] [place] [address] Jan, [facility] [id number] [place] [address] Dec, [facility] [address] [address] Dec, [facility] [id number] [place] [address] Dec, [facility] [address] [address] November, Dental examination Z01.20 and Periodontitis K05.30 [place] [address] [address] November, [place] [address] [address] November, [place] [address] [address] Oct, Encounter for Medicare annual wellness exam [...] hearing loss, unspecified hearing loss type H91.93 [place] [address] [address] Oct, [place] [address] [address] Oct, [place] [address] [address] Sep, [place] [address] [address] Aug, Anxiety F41.9 [place] [address] [address] Aug, Encounter for immunization Z23 [facility] [address] [address] Jul, History of cerebrovascular accident with hemiparesis or hemiplegia Z86.73 ; Dementia with behavioral disturbance, unspecified dementia type F03.91 ; Hypothyroidism (acquired) E03.9 ; Type 2 diabetes mellitus with diabetic neuropathy, 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 and 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 [place] [address] [address] Jul, [place] [address] [address] Jul, Type 2 diabetes mellitus with diabetic neuropathy, 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 ; Anxiety F41.9 ; Vascular dementia without behavioral disturbance F01.50 ; Moderate episode of recurrent major depressive disorder F33.1 ; Onychomycosis of great toe B35.1 ; 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 and Type 2 diabetes mellitus with complication, without long-term current use of insulin E11.8 [place] [address] [address] Jun, Hypertension I10 ; Anxiety F41.9 ; Dementia with behavioral disturbance, unspecified dementia type F03.91 ; 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 ; Moderate episode of recurrent major depressive disorder F33.1 ; Encounter for immunization Z23 ; Skin lesion of left leg L98.9 ; BMI 28.0-28.9,adult Z68.28 and Other chronic pain G89.29 [place] [address] [address] May, Lymphadenopathy, axillary R59.0 [place] [address] [address] May, [place] [address] [address] Apr, [facility] [address] [address] Apr, [place] [address] [address] Apr, [place] [address] [address] Apr, [place] [address] [address] Mar, Anxiety F41.9 ; Moderate episode of recurrent major depressive disorder F33.1 and Dementia with behavioral disturbance, unspecified dementia type F03.91 [place] [address] [address] Mar, [place] [address] [address] Mar, Diabetes E11.9 ; Hypothyroidism (acquired) E03.9 ; Hypertension I10 and Type 2 diabetes mellitus with diabetic neuropathy, 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 [place] [address] [address] Jan, [place] [address] [address] Dec, Anxiety F41.9 and 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.1 [place] [address] [address] November, [place] [address] [address] November, Chronic cough R05 and Cardiomegaly I51.[address] [address] Oct, Medicare annual wellness visit, initial Z00.00 [...] seizures R56.1 and Encounter for immunization Z23 [place] [address] [address] Sep, [place] [address] [address] Jul, [place] [address] [address] Jul, [place] [address] [address] Jun, Anxiety F41.9 and Moderate episode of recurrent major depressive disorder F33.1 [place] [address] [address] Jun, Bronchitis J40 and Bilateral hearing loss, unspecified hearing loss type H91.93 [place] [address] [address] Jun, [place] [address] [address] Apr, [place] [address] [address] Apr, Encounter for immunization Z23 and Left breast mass N63.20 [place] [address] [address] Apr, [place] [address] [address] Mar, CVA (cerebral vascular accident) I63.9 ; Hypertension I10 ; Non insulin dependent diabetes mellitus with ophthalmic complication E11.39 ; Type 2 diabetes mellitus with diabetic neuropathy, 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 and Left breast mass N63 [place] [address] [address] Mar, Mild episode of recurrent major depressive disorder F33.0 and Anxiety F41.9 [place] [address] [address] Mar, Breast mass, left N63 [place] [address] [address] Mar, Breast mass, left N63 [place] [address] [address] Feb, [place] [address] [address] Feb, [place] [address] [address] Feb, [place] [address] [address] Feb, [place] [address] [address] Feb, Onychomycosis B35.1 and Type 2 diabetes mellitus with complication E11.8 [place] [address] [address] Jan, Mild episode of recurrent major depressive disorder F33.0 and Anxiety F41.9 [place] [address] [address] Jan, [place] [address] [address] Dec, Onychomycosis due to dermatophyte B35.1 ; 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.1 ; Type 2 diabetes mellitus with diabetic neuropathy, 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 ; Falls frequently R29.6 ; Neuropathy G62.9 ; Dementia with behavioral disturbance, unspecified dementia type F03.91 ; Hypothyroidism (acquired) E03.9 and Left hand pain M79.642 [place] [address] [address] Dec, [place] [address] [address] Dec, Hypothyroidism (acquired) E03.9 [place] [address] [address] Dec, Non insulin dependent diabetes mellitus with ophthalmic complication E11.39 [place] [address] [address] November, Hypothyroidism (acquired) E03.9 [place] [address] [address] Oct, [place] [address] [address] Oct, Non insulin dependent diabetes mellitus with ophthalmic complication E11.39 [place] [address] [address] Oct, [place] [address] [address] Oct, Dysuria R30.0 ; Non insulin dependent diabetes mellitus with ophthalmic complication E11.39 ; Bilateral hearing loss, unspecified hearing loss type H91.93 and 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 [place] [address] [address] Sep, [facility] [address] [facility] [id number] [address] Sep, Open wound of right great toe, initial encounter S91.101A [place] [address] [address] Sep, Breast mass, left N63 ; Non-insulin dependent type 2 diabetes mellitus E11.9 and Vascular dementia without behavioral disturbance F01.50 [place] [address] [address] Sep, [place] [address] [address] Jul, [place] [address] [address] Jul, Diabetes E11.9 ; Diaper dermatitis L22 ; Candidiasis of skin and nail B37.2 ; Neuropathy G62.9 ; Status post stroke Z86.73 ; Unsteadiness on feet R26.81 and 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 [place] [address] [address] May, [place] [address] [address] May, [place] [address] [address] May, [place] [address] [address] May, Dementia with behavioral disturbance, unspecified dementia type F03.91 [place] [address] [address] 16 May, 2016 Dementia with behavioral disturbance, unspecified dementia type F03.91 ; Encounter for immunization Z23 and Diabetes E11.9 [place] [address] [address] 09 May, 2016 [place] [address] [address] May, Neuropathy G62.9 [place] [address] [address] May, [place] [address] [address] Apr, Hypothyroidism (acquired) E03.9 [place] [address] [address] Apr, CVA (cerebral vascular accident) I63.9 ; Left hand weakness M62.81 and Neuropathy G62.9 [place] [address] [address] Apr, Hypokalemia E87.6 [place] [address] [address] Apr, Hypokalemia E87.6 [place] [address] [address] Mar, Diabetes E11.9 ; Edema, unspecified type R60.9 ; Anxiety disorder, unspecified F41.9 ; Pain in left knee M25.562 ; Other chronic pain G89.29 and Status post stroke Z86.73 [place] [address] [address] 15 Mar, 2016 [place] [address] [address] 15 Mar, 2016 [place] [address] [address] 07 Mar, 2016 Neuropathy G62.9 [place] [address] [address] Feb, Anorexia R63.0 and Neuropathy G62.9 [place] [address] [address] Jan, Diabetes E11.9 ; Neuropathy G62.9 ; Panic attack F41.0 ; Pain in left knee M25.562 and Hypertension 401.9 [place] [address] [address] Jan, Weakness R53.1 ; Fatigue, unspecified type R53.83 ; Falling episodes R29.6 and Neuropathy G62.9 [place] [address] [address] Jan, Pain in left knee M25.562 [place] [address] [address] Jan, [place] [address] [address] Jan, [place] [address] [address] Jan, [place] [address] [address] Dec, Diabetes E11.9 ; Neuropathy G62.9 and Dementia F03.90 [place] [address] [address] Dec, [place] [address] [address] Dec, Neuropathy G62.9 ; Diabetes E11.9 ; Anxiety F41.9 and Constipation, unspecified constipation type K59.00 [place] [address] [address] Dec, [place] [address] [address] Dec, Anxiety F41.9 [place] [address] [address] November, [facility] [address] [address] November, Pain in left knee M25.562 ; Other chronic pain G89.29 ; Diabetes E11.9 and Left eye pain H57.12 [facility] [address] [address] November, [facility] [address] [address] November, Hearing loss, unspecified laterality H91.90 [facility] [address] [address] November, [facility] [address] [address] November, [facility] [address] [address] November, Pain in right knee M25.561 [facility] [address] [address] November, [facility] [address] [address] Oct, [facility] [address] [address] Oct, [facility] [address] [address] Oct, Edema of left lower extremity R60.0 ; Diabetes E11.9 ; 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 I63.39 and Anxiety disorder, unspecified F41.9 [facility] [address] [address] 14 Oct, 2015 Panic attack F41.0 [facility] [address] [address] 14 Oct, 2015 [facility] [address] [address] 13 Oct, 2015 CVA (cerebral vascular accident) I63.9 [place] [address] [address] Oct, [place] [address] [address] Oct, Diabetes E11.9 ; Hypertension I10 and Dementia F03.90 [place] [address] [address] Sep, [place] [address] [address] Sep, [place] [address] [address] Sep, Diabetes E11.9 ; 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 ; Onychomycosis B35.1 and Fatigue R53.83 [place] [address] [address] Aug, [place] [address] [address] Aug, [place] [address] [address] Jul, [place] [address] [address] Jul, [place] [address] [address] Jun, 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 [place] [address] [address] Jun, Anxiety disorder, unspecified F41.9 and Major depressive disorder, single episode, moderate F32.1 [place] [address] [address] Jun, [place] [address] [address] Jun, [place] [address] [address] May, Left knee pain M25.562 [facility] [address] [address] May, [facility] [address] [address] May, [facility] [address] [address] May, [facility] [address] [address] May, Hypertension I10 ; Diabetes E11.9 and Depression F32.9 [facility] [address] [address] May, [facility] [address] [address] Apr, Left knee pain M25.562 ; Type 2 diabetes mellitus with complication E11.8 and Encounter for immunization Z23 [facility] [address] [address] Apr, [facility] [address] [address] Apr, [facility] [address] [address] Mar, [facility] [address] [address] Mar, Silvestre stanley 727.51 [facility] [address] [address] Mar, [facility] [address] [address] Mar, [facility] [address] [address] Mar, [facility] [address] [address] Feb, [facility] [address] [address] Feb, [facility] [id number] [place] [address] Feb, Hypertension 401.9 and Diabetes 250.00 [facility] [id number] [place] [address] Jan, [facility] [address] [address] Jan, Diabetes 250.00 [facility] [address] [address] 14 Jan, 2015 [facility] [address] [address] Jan, [facility] [address] [address] 29 Dec, 2014 Diabetes 250.00 and Forgetfulness 780.99 [facility] [address] [address] Dec, [facility] [address] [address] Dec, Diabetes mellitus 250.00 [facility] [address] [address] Dec, [facility] [address] [address] Dec, [facility] [address] [address] Dec, [facility] [address] [address] 16 Dec, 2014 Diabetes 250.00 and Dysthymia 300.4 [facility] [address] [address] 15 Dec, 2014 [facility] [address] [address] 09 Dec, 2014 Grief 309.0 and Diabetes mellitus 250.00 [facility] [address] [address] 14 Oct, 2014 [facility] [address] [facility] [id number] [place] [address] Oct, [facility] [address] [id number] [place] [address] Jul, [facility] [address] [id number] [place] [address] Jul, [facility] [address] [id number] [place] [address] Jul, [facility] [address] [facility] [id number] [place] [address] Jul, [facility] [address] [id number] [place] [address] Jul, [facility] [address] [id number] [place] [address] May, [facility] [address] [id number] [place] [address] May, [facility] [address] [id number] [place] [address] Apr, [facility] [address] [id number] [place] [address] Apr, [facility] [address] [id number] [place] [address] Mar, [facility] [address] [id number] [place] [address] Mar, [facility] [address] [id number] [place] [address] Feb, [facility] [address] [id number] [place] [address] Feb, [facility] [address] [id number] [place] [address] Feb, [facility] [address] [id number] [place] [address] Feb, [facility] [address] [id number] [place] [address] Feb, [facility] [address] [facility] [id number] [place] [address] Feb, [facility] [address] [id number] [place] [address] November, [facility] [address] [id number] [place] [address] November, [facility] [address] [id number] [place] [address] Sep, [facility] [address] [id number] [place] [address] Sep, [facility] [address] [id number] [place] [address] Sep, [facility] [address] [id number] [place] [address] Sep, [facility] [address] [id number] [place] [address] Sep, [facility] [address] [id number] [place] [address] Sep, [facility] [address] [id number] [place] [address] Sep, [facility] [address] [id number] [place] [address] Sep, [facility] [address] [id number] [place] [address] Aug, [facility] [address] [id number] [place] [address] Aug, [facility] [address] [id number] [place] [address] Jul, [facility] [address] [id number] [place] [address] Jul, [facility] [address] [id number] [place] [address] Jul, [facility] [address] [id number] [place] [address] Jul, [facility] [address] [id number] [place] [address] Jun, [facility] [address] [id number] [place] [address] Jun, [facility] [address] [id number] [place] [address] May, [facility] [address] [id number] [place] [address] May, [facility] [address] [id number] [place] [address] May, [facility] [address] [id number] [place] [address] May, [facility] [id number] [place] [address] May, [facility] [address] [id number] [place] [address] May, [facility] [address] [id number] [place] [address] Apr, [facility] [address] [id number] [place] [address] Apr, [facility] [address] [id number] [place] [address] 16 Apr, 2013 [facility] [address] [id number] [place] [address] Apr, [facility] [address] [id number] [place] [address] Mar, [facility] [address] [id number] [place] [address] Mar, [facility] [address] [id number] [place] [address] Jan, [facility] [address] [id number] [place] [address] Jan, [facility] [address] [id number] [place] [address] Jan, [facility] [address] [id number] [place] [address] November, [facility] [address] [id number] [place] [address] November, [facility] [address] [id number] [place] [address] November, [facility] [address] [id number] [place] [address] November, [facility] [id number] [place] [address] Aug, [facility] [id number] [place] [address] Jul, [facility] [id number] [place] [address] Jul, [facility] [id number] [place] [address] Jul, [facility] [id number] [place] [address] Jun, [facility] [id number] [place] [address] Jun, [facility] [id number] [place] [address] May, [facility] [id number] [place] [address] May, [facility] [id number] [place] [address] Apr, [facility] [id number] [place] [address] Apr, [facility] [address] [id number] [place] [address] Apr, [facility] [id number] [place] [address] Apr, [facility] [id number] [place] [address] Apr, [facility] [id number] [place] [address] Apr, [facility] [id number] [place] [address] Apr, [facility] [id number] [place] [address] Apr, [facility] [id number] [place] [address] Apr, [facility] [id number] [place] [address] Mar, [facility] [id number] [place] [address] Feb, [facility] [id number] [place] [address] November, [facility] [id number] [place] [address] November, [facility] [id number] [place] [address] November, [facility] [id number] [place] [address] November, [facility] [id number] [place] [address] Jun, [facility] [id number] [place] [address] Jun, [facility] [id number] [place] [address] May, [facility] [id number] [place] [address] May, [facility] [id number] [place] [address] Apr, [facility] [address] [id number] [place] [address] Apr, [facility] [address] [id number] [place] [address] May, [facility] [address] [id number] [place] [address] Apr, [facility] [address] [id number] [place] [address] Apr, [facility] [address] [id number] [place] [address] Apr, [facility] [address] [id number] [place] [address] Apr, IMMUNIZATIONS No Known Immunizations SOCIAL HISTORY [...] Hospitalization History Post Stroke pt went to [facility] and then [facility] 10/15/15 Hospitalization History Hypotension, Wander ateral leg weakness--Via [facility] 01/15/16 Hospitalization History hypertension/chest pain 03/2017
--- OUTSIDE RECORDS SUMMARY | 2023-03-21 11:28 | XMS REPORT ---
Author Author Lady SIMMONS Organization [facility] [place] Address [address] [place] [address] Care Team Providers Care Skid Worker Name Role Phone OMI SIMMONS Unavailable PROBLEMS Type Condition ICD9-CM Code XMQ12-FP Code Onset Dates Condition Status SNOMED Code Problem Panic attack F41.0 Active 149747478 Problem Hypertension I10 Active 47495070 Problem Anxiety F41.9 Active 01039834 Problem Other chronic pain G89.29 Active 06280 001 Problem Dementia with behavioral disturbance, unspecified dementia type F03.91 Active 8837022251554 Problem Hypothyroidism (acquired) E03.9 Active 353069904 Problem Vascular dementia without behavioral disturbance F01.50 Active 465496249 Problem 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 Active 580420661260 Problem Falls frequently R29.6 Active 1838925 02 Problem Type 2 diabetes mellitus with diabetic neuropathy, 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 Active 56610264 Problem 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 Active 02577963 1 Problem Cardiomegaly I51.7 Active 0402957 Problem 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 Active 632364284 Problem Diabetes E11.9 Active 115506851 Problem 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 Active 14078441 Problem History of cerebrovascular accident with hemiparesis or hemiplegia Z86.73 Active 757373341 Problem Bilateral hearing loss, unspecified hearing loss type H91.93 Active 28046448 Problem SNHL (sensory-neural hearing loss), 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 Active 167132440 Problem Left-sided muscle weakness M62.81 Active 474573454 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 94007082 ALLERGIES No Information ENCOUNTERS Encounter Location Date Diagnosis [facility] [id number] [place] [address] 18 Aug, 2019 [facility] [id number] [place] [address] Aug, [facility] [address] [address] Jul, 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 ; Type 2 diabetes mellitus with diabetic neuropathy, 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 and Hypertension I10 [place] [address] [address] May, [facility] [address] [address] Apr, [place] [address] [address] Mar, Type 2 diabetes mellitus with diabetic neuropathy, 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 ; Hypertension I10 ; Diabetes E11.9 ; Dementia with behavioral disturbance, unspecified dementia type F03.91 ; Type 2 diabetes mellitus with complication, without long-term current use of insulin E11.8 and Neck pain M54.2 [place] [address] [address] Mar, Dysuria R30.0 [address] [place] [address] Feb, [place] [address] [address] Feb, [place] [address] [address] Jan, [place] [address] [address] Dec, [place] [address] [address] Dec, [place] [address] [address] Dec, [place] [address] [address] November, Dental examination Z01.20 and Periodontitis K05.30 [place] [address] [address] November, [place] [address] [address] November, [place] [address] [address] Oct, Encounter for Medicare annual wellness exam [...] hearing loss, unspecified hearing loss type H91.93 [place] [address] [address] Oct, [place] [address] [address] Oct, [place] [address] [address] Sep, [place] [address] [address] Aug, Anxiety F41.9 [place] [address] [address] Aug, Encounter for immunization Z23 [place] [address] [address] Jul, History of cerebrovascular accident with hemiparesis or hemiplegia Z86.73 ; Dementia with behavioral disturbance, unspecified dementia type F03.91 ; Hypothyroidism (acquired) E03.9 ; Type 2 diabetes mellitus with diabetic neuropathy, 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 and 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 [place] [address] [address] Jul, [place] [address] [address] Jul, Type 2 diabetes mellitus with diabetic neuropathy, 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 ; Anxiety F41.9 ; Vascular dementia without behavioral disturbance F01.50 ; 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 ; Onychomycosis of great toe B35.1 ; 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 and Type 2 diabetes mellitus with complication, without long-term current use of insulin E11.8 [place] [address] [address] Jun, Hypertension I10 ; Anxiety F41.9 ; Dementia with behavioral disturbance, unspecified dementia type F03.91 ; 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 ; 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.1 ; Encounter for immunization Z23 ; Skin lesion of left leg L98.9 ; BMI 28.0-28.9,adult Z68.28 and Other chronic pain G89.29 [place] [address] [address] May, Lymphadenopathy, axillary R59.0 [place] [address] [address] May, [place] [address] [address] Apr, [place] [address] [address] Apr, [place] [address] [address] Apr, [place] [address] [address] Apr, [place] [address] [address] Mar, Anxiety F41.9 ; 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.1 and Dementia with behavioral disturbance, unspecified dementia type F03.91 [place] [address] [address] Mar, [place] [address] [address] Mar, Diabetes E11.9 ; Hypothyroidism (acquired) E03.9 ; Hypertension I10 and Type 2 diabetes mellitus with diabetic neuropathy, 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 [place] [address] [address] Jan, [place] [address] [address] Dec, Anxiety F41.9 and 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.1 [place] [address] [address] November, [place] [address] [address] November, Chronic cough R05 and Cardiomegaly I51.[address] [address] Oct, Medicare annual wellness visit, initial Z00.00 [...] seizures R56.1 and Encounter for immunization Z23 [place] [address] [address] Sep, [place] [address] [address] Jul, [place] [address] [address] Jul, [place] [address] [address] Jun, Anxiety F41.9 and Moderate episode of recurrent major depressive disorder F33.1 [place] [address] [address] Jun, Bronchitis J40 and Bilateral hearing loss, unspecified hearing loss type H91.93 [place] [address] [address] 14 Jun, 2017 [place] [address] [address] Apr, [place] [address] [address] Apr, Encounter for immunization Z23 and Left breast mass N63.20 [place] [address] [address] 16 Apr, 2017 [place] [address] [address] 27 Mar, 2017 CVA (cerebral vascular accident) I63.9 ; Hypertension I10 ; 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 ; Type 2 diabetes mellitus with diabetic neuropathy, 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 and Left breast mass N63 [place] [address] [address] Mar, Mild episode of recurrent major depressive disorder F33.0 and Anxiety F41.9 [place] [address] [address] Mar, Breast mass, left N63 [place] [address] [address] Mar, Breast mass, left N63 [place] [address] [address] Feb, [place] [address] [address] Feb, [place] [address] [address] Feb, [place] [address] [address] Feb, [place] [address] [address] Feb, Onychomycosis B35.1 and Type 2 diabetes mellitus with complication E11.8 [place] [address] [address] Jan, Mild episode of recurrent major depressive disorder F33.0 and Anxiety F41.9 [place] [address] [address] Jan, [place] [address] [address] Dec, Onychomycosis due to dermatophyte B35.1 ; 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.1 ; Type 2 diabetes mellitus with diabetic neuropathy, 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 ; Falls frequently R29.6 ; Neuropathy G62.9 ; Dementia with behavioral disturbance, unspecified dementia type F03.91 ; Hypothyroidism (acquired) E03.9 and Left hand pain M79.642 [place] [address] [address] Dec, [place] [address] [address] Dec, Hypothyroidism (acquired) E03.9 [place] [address] [address] Dec, 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 [place] [address] [address] November, Hypothyroidism (acquired) E03.9 [place] [address] [address] Oct, [address] [address] Oct, 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 [place] [address] [address] Oct, [place] [address] [address] Oct, Dysuria R30.0 ; 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 ; Bilateral hearing loss, unspecified hearing loss type H91.93 and 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 [place] [address] [place] [id number] [place] [address] Sep, [facility] [address] [facility] [id number] [place] [address] Sep, Open wound of right great toe, initial encounter S91.101A [place] [address] [address] Sep, Breast mass, left N63 ; Non-insulin dependent type 2 diabetes mellitus E11.9 and Vascular dementia without behavioral disturbance F01.50 [place] [address] [address] Sep, [place] [address] [address] Jul, [place] [address] [address] Jul, Diabetes E11.9 ; Diaper dermatitis L22 ; Candidiasis of skin and nail B37.2 ; Neuropathy G62.9 ; Status post stroke Z86.73 ; Unsteadiness on feet R26.81 and 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 [place] [address] [address] May, [place] [address] [address] May, [place] [address] [address] May, [place] [address] [address] May, Dementia with behavioral disturbance, unspecified dementia type F03.91 [place] [address] [address] May, Dementia with behavioral disturbance, unspecified dementia type F03.91 ; Encounter for immunization Z23 and Diabetes E11.9 [place] [address] [address] May, [place] [address] [address] May, Neuropathy G62.9 [place] [address] [address] May, [place] [address] [address] Apr, Hypothyroidism (acquired) E03.9 [place] [address] [address] Apr, CVA (cerebral vascular accident) I63.9 ; Left hand weakness M62.81 and Neuropathy G62.9 [place] [address] [address] Apr, Hypokalemia E87.6 [place] [address] [address] Apr, Hypokalemia E87.6 [place] [address] [address] Mar, Diabetes E11.9 ; Edema, unspecified type R60.9 ; Anxiety disorder, unspecified F41.9 ; Pain in left knee M25.562 ; Other chronic pain G89.29 and Status post stroke Z86.73 [place] [address] [address] 15 Mar, 2016 [place] [address] [address] Mar, [place] [address] [address] 07 Mar, 2016 Neuropathy G62.9 [place] [address] [address] Feb, Anorexia R63.0 and Neuropathy G62.9 [facility] [address] [address] Jan, Diabetes E11.9 ; Neuropathy G62.9 ; Panic attack F41.0 ; Pain in left knee M25.562 and Hypertension 401.9 [facility] [address] [address] Jan, Weakness R53.1 ; Fatigue, unspecified type R53.83 ; Falling episodes R29.6 and Neuropathy G62.9 [facility] [address] [address] Jan, Pain in left knee M25.562 [place] [address] [address] Jan, [place] [address] [address] Jan, [place] [address] [address] Jan, [place] [address] [address] Dec, Diabetes E11.9 ; Neuropathy G62.9 and Dementia F03.90 [place] [address] [address] Dec, [place] [address] [address] Dec, Neuropathy G62.9 ; Diabetes E11.9 ; Anxiety F41.9 and Constipation, unspecified constipation type K59.00 [place] [address] [address] Dec, [place] [address] [address] Dec, Anxiety F41.9 [place] [address] [address] November, [place] [address] [address] November, Pain in left knee M25.562 ; Other chronic pain G89.29 ; Diabetes E11.9 and Left eye pain H57.12 [facility] [address] [address] November, [facility] [address] [address] November, Hearing loss, unspecified laterality H91.90 [place] [address] [address] November, [facility] [address] [address] November, [place] [address] [address] November, Pain in right knee M25.561 [place] [address] [address] November, [place] [address] [address] Oct, [place] [address] [address] Oct, [place] [address] [address] 26 Oct, 2015 Edema of left lower extremity R60.0 ; Diabetes E11.9 ; 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 I63.39 and Anxiety disorder, unspecified F41.9 [place] [address] [address] 14 Oct, 2015 Panic attack F41.0 [place] [address] [address] 14 Oct, 2015 [place] [address] [address] Oct, CVA (cerebral vascular accident) I63.9 [place] [address] [address] Oct, [facility] [address] [address] Oct, Diabetes E11.9 ; Hypertension I10 and Dementia F03.90 [facility] [address] [address] Sep, [facility] [address] [address] Sep, [facility] [address] [address] Sep, Diabetes E11.9 ; 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 ; Onychomycosis B35.1 and Fatigue R53.83 [place] [address] [address] Aug, [place] [address] [address] Aug, [place] [address] [address] Jul, [facility] [address] [address] Jul, [place] [address] [address] Jun, 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 [place] [address] [address] Jun, Anxiety disorder, unspecified F41.9 and Major depressive disorder, single episode, moderate F32.1 [place] [address] [address] Jun, [place] [address] [address] Jun, [facility] [address] [address] May, Left knee pain M25.562 [place] [address] [address] May, [facility] [address] [address] May, [facility] [address] [address] May, [facility] [address] [address] May, Hypertension I10 ; Diabetes E11.9 and Depression F32.9 [facility] [address] [address] May, [facility] [address] [address] Apr, Left knee pain M25.562 ; Type 2 diabetes mellitus with complication E11.8 and Encounter for immunization Z23 [facility] [address] [address] Apr, [facility] [address] [address] Apr, [facility] [address] [address] Mar, [facility] [address] [address] Mar, Silvestre stanley 727.51 [facility] [address] [address] Mar, [facility] [address] [address] Mar, [facility] [address] [address] Mar, [facility] [address] [address] Feb, [facility] [address] [address] Feb, [facility] [address] [address] Feb, Hypertension 401.9 and Diabetes 250.00 [facility] [id number] [place] [address] Jan, [facility] [address] [place] [address] [id number] [place] [address] Jan, Diabetes 250.00 [facility] [address] [place] [id number] [place] [address] Jan, [facility] [address] [id number] [place] [address] Jan, [facility] [address] [place] [id number] [place] [address] Dec, Diabetes 250.00 and Forgetfulness 780.99 [facility] [address] [place] [address] [id number] [place] [address] Dec, [facility] [address] [address] Dec, Diabetes mellitus 250.00 [facility] [id number] [place] [address] Dec, [facility] [address] [address] Dec, [facility] [address] [place] [id number] [place] [address] Dec, [facility] [address] [address] Dec, Diabetes 250.00 and Dysthymia 300.4 [facility] [address] [place] [id number] [place] [address] Dec, [facility] [address] [address] Dec, Grief 309.0 and Diabetes mellitus 250.00 [facility] [address] [place] [id number] [place] [address] 14 Oct, 2014 [facility] [address] [address] Oct, [facility] [address] [facility] [id number] [place] [address] Jul, [facility] [address] [facility] [id number] [place] [address] Jul, [facility] [id number] [place] [address] Jul, [facility] [id number] [place] [address] Jul, [facility] [address] [facility] [id number] [place] [address] Jul, [facility] [id number] [place] [address] May, [facility] [id number] [place] [address] May, [facility] [id number] [place] [address] Apr, [facility] [id number] [place] [address] Apr, [facility] [id number] [place] [address] Mar, [facility] [id number] [place] [address] Mar, [facility] [id number] [place] [address] Feb, [facility] [address] [facility] [id number] [place] [address] Feb, [facility] [id number] [place] [address] Feb, [facility] [id number] [place] [address] Feb, [facility] [id number] [place] [address] Feb, [facility] [id number] [place] [address] Feb, [facility] [id number] [place] [address] November, [facility] [id number] [place] [address] November, [facility] [id number] [place] [address] Sep, [facility] [id number] [place] [address] Sep, [facility] [id number] [place] [address] Sep, [facility] [id number] [place] [address] Sep, [facility] [id number] [place] [address] Sep, [facility] [id number] [place] [address] Sep, [facility] [id number] [place] [address] Sep, [facility] [id number] [place] [address] Sep, [facility] [id number] [place] [address] Aug, [facility] [id number] [place] [address] Aug, [facility] [id number] [place] [address] Jul, [facility] [id number] [place] [address] Jul, [facility] [id number] [place] [address] Jul, [facility] [id number] [place] [address] Jul, [facility] [id number] [place] [address] Jun, [facility] [id number] [place] [address] Jun, [facility] [id number] [place] [address] May, [facility] [id number] [place] [address] May, [facility] [id number] [place] [address] May, [facility] [id number] [place] [address] May, [facility] [id number] [place] [address] May, [facility] [id number] [place] [address] May, [facility] [id number] [place] [address] Apr, [facility] [id number] [place] [address] Apr, [facility] [id number] [place] [address] Apr, [facility] [id number] [place] [address] Apr, [facility] [id number] [place] [address] Mar, [facility] [id number] [place] [address] Mar, [facility] [id number] [place] [address] Jan, [facility] [id number] [place] [address] Jan, [facility] [id number] [place] [address] Jan, [facility] [id number] [place] [address] November, [facility] [id number] [place] [address] November, [facility] [id number] [place] [address] November, [facility] [id number] [place] [address] November, [facility] [id number] [place] [address] Aug, [facility] [id number] [place] [address] Jul, [facility] [id number] [place] [address] Jul, [facility] [id number] [place] [address] Jul, [facility] [id number] [place] [address] Jun, [facility] [id number] [place] [address] Jun, [facility] [id number] [place] [address] May, [facility] [id number] [place] [address] May, [facility] [id number] [place] [address] Apr, [facility] [id number] [place] [address] Apr, [facility] [id number] [place] [address] Apr, [facility] [id number] [place] [address] Apr, [facility] [id number] [place] [address] Apr, [facility] [id number] [place] [address] Apr, [facility] [id number] [place] [address] Apr, [facility] [id number] [place] [address] Apr, [facility] [id number] [place] [address] Apr, [facility] [id number] [place] [address] Mar, [facility] [id number] [place] [address] Feb, [facility] [id number] [place] [address] November, [facility] [id number] [place] [address] November, [facility] [facility] [id number] [place] [address] November, [facility] [id number] [place] [address] November, [facility] [id number] [place] [address] Jun, [facility] [id number] [place] [address] Jun, [facility] [id number] [place] [address] May, [facility] [id number] [place] [address] May, [facility] [id number] [place] [address] Apr, [facility] [id number] [place] [address] Apr, [facility] [id number] [place] [address] May, [facility] [id number] [place] [address] Apr, [facility] [id number] [place] [address] Apr, [facility] [id number] [place] [address] Apr, [facility] [id number] [place] [address] Apr, IMMUNIZATIONS No Known Immunizations SOCIAL HISTORY Never Assessed REASON FOR VISIT PLAN OF CARE VITAL SIGNS Height 62 in 2013-09-23 Weight 200 lbs 2013-09-23 Temperature 97 degrees Fahrenheit 2013-09-23 Heart Rate 70 bpm 2013-09-23 Respiratory Rate 22 2013-09-23 Blood pressure systolic 138 mmHg Blood pressure diastolic 70 mmHg 2013-09 MEDICATIONS Unknown Medications RESULTS No Results PROCEDURES [...] History Post Stroke pt went to [facility] and then Via [facility] 10/15/15 Hospitalization History Hypotension, Wander ateral leg weakness--Via [facility] 01/15/16 Hospitalization History hypertension/chest pain 03/2017
--- OUTSIDE RECORDS SUMMARY | 2023-03-21 11:29 | XMS REPORT ---
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 Name Role Phone OMI SIMMONS Unavailable PROBLEMS Type Condition ICD9-CM Code [id number] Code Onset Dates Condition Status SNOMED Code Problem Panic attack F41.0 Active 247170877 Problem Hypertension I10 Active 80039288 Problem Anxiety F41.9 Active 18823986 Problem Other chronic pain G89.29 Active 56585 001 Problem Dementia with behavioral disturbance, unspecified dementia type F03.91 Active 4204584800325 Problem Hypothyroidism (acquired) E03.9 Active 041627735 Problem Vascular dementia without behavioral disturbance F01.50 Active 303613080 Problem 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 Active 823715960807 Problem Falls frequently R29.6 Active 6185111 02 Problem Type 2 diabetes mellitus with diabetic neuropathy, 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 Active 96808512 Problem 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 Active 99684522 1 Problem Cardiomegaly I51.7 Active 0261272 Problem 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 Active 840108052 Problem Diabetes E11.9 Active 158662259 Problem 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 Active 42879580 Problem History of cerebrovascular accident with hemiparesis or hemiplegia Z86.73 Active 405797735 Problem Bilateral hearing loss, unspecified hearing loss type H91.93 Active 41972813 Problem SNHL (sensory-neural hearing loss), 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 Active 388966341 Problem Left-sided muscle weakness M62.81 Active 092237674 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 97344816 ALLERGIES No Information ENCOUNTERS Encounter Location Date Diagnosis [facility] [address] [id number] [place] [address] 24 Aug, 2019 [facility] [address] [id number] [place] [address] Aug, [facility] [address] [id number] [place] [address] Aug, [facility] [address] [address] Jul, 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.39 ; Type 2 diabetes mellitus with diabetic neuropathy, 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 and Hypertension I10 [facility] [address] [address] May, [facility] [address] [address] Apr, [facility] [address] [address] Mar, Type 2 diabetes mellitus with diabetic neuropathy, 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 ; Hypertension I10 ; Diabetes E11.9 ; Dementia with behavioral disturbance, unspecified dementia type F03.91 ; Type 2 diabetes mellitus with complication, without long-term current use of insulin E11.8 and Neck pain M54.2 [facility] [id number] [place] [address] Mar, Dysuria R30.0 [address] [place] [address] Feb, [facility] [id number] [place] [address] Feb, [facility] [id number] [place] [address] Jan, [facility] [id number] [place] [address] Dec, [facility] [address] [address] Dec, [facility] [id number] [place] [address] Dec, [facility] [address] [address] November, Dental examination Z01.20 and Periodontitis K05.30 [place] [address] [address] November, [place] [address] [address] November, [place] [address] [address] Oct, Encounter for Medicare annual wellness exam [...] hearing loss, unspecified hearing loss type H91.93 [place] [address] [address] Oct, [place] [address] [address] Oct, [place] [address] [address] Sep, [place] [address] [address] Aug, Anxiety F41.9 [place] [address] [address] Aug, Encounter for immunization Z23 [place] [address] [address] Jul, History of cerebrovascular accident with hemiparesis or hemiplegia Z86.73 ; Dementia with behavioral disturbance, unspecified dementia type F03.91 ; Hypothyroidism (acquired) E03.9 ; Type 2 diabetes mellitus with diabetic neuropathy, 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 and 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 [place] [address] [address] Jul, [place] [address] [address] Jul, Type 2 diabetes mellitus with diabetic neuropathy, 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 ; Anxiety F41.9 ; Vascular dementia without behavioral disturbance F01.50 ; Moderate episode of recurrent major depressive disorder F33.1 ; Onychomycosis of great toe B35.1 ; 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 and Type 2 diabetes mellitus with complication, without long-term current use of insulin E11.8 [place] [address] [address] Jun, Hypertension I10 ; Anxiety F41.9 ; Dementia with behavioral disturbance, unspecified dementia type F03.91 ; 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 ; Moderate episode of recurrent major depressive disorder F33.1 ; Encounter for immunization Z23 ; Skin lesion of left leg L98.9 ; BMI 28.0-28.9,adult Z68.28 and Other chronic pain G89.29 [place] [address] [address] May, Lymphadenopathy, axillary R59.0 [place] [address] [address] May, [place] [address] [address] Apr, [place] [address] [address] Apr, [place] [address] [address] Apr, [place] [address] [address] Apr, [place] [address] [address] Mar, Anxiety F41.9 ; Moderate episode of recurrent major depressive disorder F33.1 and Dementia with behavioral disturbance, unspecified dementia type F03.91 [place] [address] [address] Mar, [place] [address] [address] Mar, Diabetes E11.9 ; Hypothyroidism (acquired) E03.9 ; Hypertension I10 and Type 2 diabetes mellitus with diabetic neuropathy, 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 [place] [address] [address] Jan, [place] [address] [address] Dec, Anxiety F41.9 and Moderate episode of recurrent major depressive disorder F33.1 [place] [address] [address] November, [place] [address] [address] November, Chronic cough R05 and Cardiomegaly I51.[address] [address] Oct, Medicare annual wellness visit, initial Z00.00 [...] seizures R56.1 and Encounter for immunization Z23 [place] [address] [address] Sep, [place] [address] [address] Jul, [place] [address] [address] Jul, [place] [address] [address] Jun, Anxiety F41.9 and Moderate episode of recurrent major depressive disorder F33.1 [place] [address] [address] Jun, Bronchitis J40 and Bilateral hearing loss, unspecified hearing loss type H91.93 [place] [address] [address] Jun, [place] [address] [address] Apr, [place] [address] [address] Apr, Encounter for immunization Z23 and Left breast mass N63.20 [place] [address] [address] Apr, [place] [address] [address] Mar, CVA (cerebral vascular accident) I63.9 ; Hypertension I10 ; 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 ; Type 2 diabetes mellitus with diabetic neuropathy, unspecified E11.40 and Left breast mass N63 [place] [address] [address] Mar, Mild episode of recurrent major depressive disorder F33.0 and Anxiety F41.9 [place] [address] [address] Mar, Breast mass, left N63 [place] [address] [address] Mar, Breast mass, left N63 [place] [address] [address] Feb, [place] [address] [address] Feb, [place] [address] [address] Feb, [place] [address] [address] Feb, [place] [address] [address] Feb, Onychomycosis B35.1 and Type 2 diabetes mellitus with complication E11.8 [place] [address] [address] Jan, Mild episode of recurrent major depressive disorder F33.0 and Anxiety F41.9 [place] [address] [address] Jan, [place] [address] [address] Dec, Onychomycosis due to dermatophyte B35.1 ; Moderate episode of recurrent major depressive disorder F33.1 ; Type 2 diabetes mellitus with diabetic neuropathy, unspecified E11.40 ; Falls frequently R29.6 ; Neuropathy G62.9 ; Dementia with behavioral disturbance, unspecified dementia type F03.91 ; Hypothyroidism (acquired) E03.9 and Left hand pain M79.642 [place] [address] [address] Dec, [place] [address] [address] Dec, Hypothyroidism (acquired) E03.9 [place] [address] [address] Dec, Non insulin dependent diabetes mellitus with ophthalmic complication E11.39 [place] [address] [address] November, Hypothyroidism (acquired) E03.9 [place] [address] [address] Oct, [place] [address] [address] Oct, 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 [place] [address] [address] Oct, [place] [address] [address] Oct, Dysuria R30.0 ; 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 ; Bilateral hearing loss, unspecified hearing loss type H91.93 and 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 [place] [address] [address] Sep, [facility] [address] [facility] [id number] [address] Sep, Open wound of right great toe, initial encounter S91.101A [place] [address] [address] Sep, Breast mass, left N63 ; Non-insulin dependent type 2 diabetes mellitus E11.9 and Vascular dementia without behavioral disturbance F01.50 [place] [address] [address] Sep, [place] [address] [address] Jul, [place] [address] [address] Jul, Diabetes E11.9 ; Diaper dermatitis L22 ; Candidiasis of skin and nail B37.2 ; Neuropathy G62.9 ; Status post stroke Z86.73 ; Unsteadiness on feet R26.81 and 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 [place] [address] [address] May, [place] [address] [address] May, [place] [address] [address] May, [place] [address] [address] May, Dementia with behavioral disturbance, unspecified dementia type F03.91 [place] [address] [address] 16 May, 2016 Dementia with behavioral disturbance, unspecified dementia type F03.91 ; Encounter for immunization Z23 and Diabetes E11.9 [place] [address] [address] 09 May, 2016 [place] [address] [address] May, Neuropathy G62.9 [place] [address] [address] May, [place] [address] [address] Apr, Hypothyroidism (acquired) E03.9 [place] [address] [address] Apr, CVA (cerebral vascular accident) I63.9 ; Left hand weakness M62.81 and Neuropathy G62.9 [place] [address] [address] Apr, Hypokalemia E87.6 [place] [address] [address] Apr, Hypokalemia E87.6 [place] [address] [address] Mar, Diabetes E11.9 ; Edema, unspecified type R60.9 ; Anxiety disorder, unspecified F41.9 ; Pain in left knee M25.562 ; Other chronic pain G89.29 and Status post stroke Z86.73 [place] [address] [address] 15 Mar, 2016 [place] [address] [address] 15 Mar, 2016 [place] [address] [address] 07 Mar, 2016 Neuropathy G62.9 [place] [address] [address] Feb, Anorexia R63.0 and Neuropathy G62.9 [place] [address] [address] Jan, Diabetes E11.9 ; Neuropathy G62.9 ; Panic attack F41.0 ; Pain in left knee M25.562 and Hypertension 401.9 [place] [address] [address] Jan, Weakness R53.1 ; Fatigue, unspecified type R53.83 ; Falling episodes R29.6 and Neuropathy G62.9 [place] [address] [address] Jan, Pain in left knee M25.562 [place] [address] [address] Jan, [place] [address] [address] Jan, [place] [address] [address] Jan, [place] [address] [address] Dec, Diabetes E11.9 ; Neuropathy G62.9 and Dementia F03.90 [place] [address] [address] Dec, [place] [address] [address] Dec, Neuropathy G62.9 ; Diabetes E11.9 ; Anxiety F41.9 and Constipation, unspecified constipation type K59.00 [place] [address] [address] Dec, [place] [address] [address] Dec, Anxiety F41.9 [place] [address] [address] November, [facility] [address] [address] November, Pain in left knee M25.562 ; Other chronic pain G89.29 ; Diabetes E11.9 and Left eye pain H57.12 [facility] [address] [address] November, [facility] [address] [address] November, Hearing loss, unspecified laterality H91.90 [facility] [address] [address] November, [facility] [address] [address] November, [facility] [address] [address] November, Pain in right knee M25.561 [facility] [address] [address] November, [facility] [address] [address] Oct, [facility] [address] [address] Oct, [facility] [address] [address] Oct, Edema of left lower extremity R60.0 ; Diabetes E11.9 ; 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 I63.39 and Anxiety disorder, unspecified F41.9 [facility] [address] [address] 14 Oct, 2015 Panic attack F41.0 [facility] [address] [address] 14 Oct, 2015 [facility] [address] [address] 13 Oct, 2015 CVA (cerebral vascular accident) I63.9 [place] [address] [address] Oct, [place] [address] [address] Oct, Diabetes E11.9 ; Hypertension I10 and Dementia F03.90 [place] [address] [address] Sep, [place] [address] [address] Sep, [place] [address] [address] Sep, Diabetes E11.9 ; 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 ; Onychomycosis B35.1 and Fatigue R53.83 [place] [address] [address] Aug, [place] [address] [address] Aug, [place] [address] [address] Jul, [place] [address] [address] Jul, [place] [address] [address] Jun, 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 [place] [address] [address] Jun, Anxiety disorder, unspecified F41.9 and Major depressive disorder, single episode, moderate F32.1 [place] [address] [address] Jun, [place] [address] [address] Jun, [place] [address] [address] May, Left knee pain M25.562 [facility] [address] [address] May, [facility] [address] [address] May, [facility] [address] [address] May, [facility] [address] [address] May, Hypertension I10 ; Diabetes E11.9 and Depression F32.9 [facility] [address] [address] May, [facility] [address] [address] Apr, Left knee pain M25.562 ; Type 2 diabetes mellitus with complication E11.8 and Encounter for immunization Z23 [facility] [address] [address] Apr, [facility] [address] [address] Apr, [facility] [address] [address] Mar, [facility] [address] [address] Mar, Silvestre stanley 727.51 [facility] [address] [address] Mar, [facility] [address] [address] Mar, [facility] [address] [address] Mar, [facility] [address] [address] Feb, [facility] [address] [address] Feb, [facility] [id number] [place] [address] Feb, Hypertension 401.9 and Diabetes 250.00 [facility] [id number] [place] [address] Jan, [facility] [address] [address] Jan, Diabetes 250.00 [facility] [address] [address] 14 Jan, 2015 [facility] [address] [address] Jan, [facility] [address] [address] 29 Dec, 2014 Diabetes 250.00 and Forgetfulness 780.99 [facility] [address] [address] Dec, [facility] [address] [address] Dec, Diabetes mellitus 250.00 [facility] [address] [address] Dec, [facility] [address] [address] Dec, [facility] [address] [address] Dec, [facility] [address] [address] 16 Dec, 2014 Diabetes 250.00 and Dysthymia 300.4 [facility] [address] [address] 15 Dec, 2014 [facility] [address] [address] 09 Dec, 2014 Grief 309.0 and Diabetes mellitus 250.00 [facility] [address] [address] 14 Oct, 2014 [facility] [address] [facility] [id number] [place] [address] Oct, [facility] [address] [id number] [place] [address] Jul, [facility] [address] [id number] [place] [address] Jul, [facility] [address] [id number] [place] [address] Jul, [facility] [address] [facility] [id number] [place] [address] Jul, [facility] [address] [id number] [place] [address] Jul, [facility] [address] [id number] [place] [address] May, [facility] [address] [id number] [place] [address] May, [facility] [address] [id number] [place] [address] Apr, [facility] [address] [id number] [place] [address] Apr, [facility] [address] [id number] [place] [address] Mar, [facility] [address] [id number] [place] [address] Mar, [facility] [address] [id number] [place] [address] Feb, [facility] [address] [id number] [place] [address] Feb, [facility] [address] [id number] [place] [address] Feb, [facility] [address] [id number] [place] [address] Feb, [facility] [address] [id number] [place] [address] Feb, [facility] [address] [facility] [id number] [place] [address] Feb, [facility] [address] [id number] [place] [address] November, [facility] [address] [id number] [place] [address] November, [facility] [address] [id number] [place] [address] Sep, [facility] [address] [id number] [place] [address] Sep, [facility] [address] [id number] [place] [address] Sep, [facility] [address] [id number] [place] [address] Sep, [facility] [address] [id number] [place] [address] Sep, [facility] [address] [id number] [place] [address] Sep, [facility] [address] [id number] [place] [address] Sep, [facility] [address] [id number] [place] [address] Sep, [facility] [address] [id number] [place] [address] Aug, [facility] [address] [id number] [place] [address] Aug, [facility] [address] [id number] [place] [address] Jul, [facility] [address] [id number] [place] [address] Jul, [facility] [address] [id number] [place] [address] Jul, [facility] [address] [id number] [place] [address] Jul, [facility] [address] [id number] [place] [address] Jun, [facility] [address] [id number] [place] [address] Jun, [facility] [address] [id number] [place] [address] May, [facility] [address] [id number] [place] [address] May, [facility] [address] [id number] [place] [address] May, [facility] [address] [id number] [place] [address] May, [facility] [id number] [place] [address] May, [facility] [address] [id number] [place] [address] May, [facility] [address] [id number] [place] [address] Apr, [facility] [address] [id number] [place] [address] Apr, [facility] [address] [id number] [place] [address] 16 Apr, 2013 [facility] [id number] [place] [address] Apr, [facility] [id number] [place] [address] Mar, [facility] [id number] [place] [address] Mar, [facility] [id number] [place] [address] Jan, [facility] [id number] [place] [address] Jan, [facility] [id number] [place] [address] Jan, [facility] [id number] [place] [address] November, [facility] [id number] [place] [address] November, [facility] [id number] [place] [address] November, [facility] [id number] [place] [address] November, [facility] [id number] [place] [address] Aug, [facility] [id number] [place] [address] Jul, [facility] [id number] [place] [address] Jul, [facility] [id number] [place] [address] Jul, [facility] [id number] [place] [address] Jun, [facility] [id number] [place] [address] Jun, [facility] [id number] [place] [address] May, [facility] [id number] [place] [address] May, [facility] [id number] [place] [address] Apr, [facility] [id number] [place] [address] Apr, [facility] [id number] [place] [address] Apr, [facility] [id number] [place] [address] Apr, [facility] [id number] [place] [address] Apr, [facility] [id number] [place] [address] Apr, [facility] [id number] [place] [address] Apr, [facility] [id number] [place] [address] Apr, [facility] [id number] [place] [address] Apr, [facility] [id number] [place] [address] Mar, [facility] [id number] [place] [address] Feb, [facility] [id number] [place] [address] November, [facility] [id number] [place] [address] November, [facility] [id number] [place] [address] November, [facility] [id number] [place] [address] November, [facility] [id number] [place] [address] Jun, [facility] [id number] [place] [address] Jun, [facility] [id number] [place] [address] May, [facility] [id number] [place] [address] May, [facility] [id number] [place] [address] Apr, [facility] [id number] [place] [address] Apr, [facility] [id number] [place] [address] May, [facility] [id number] [place] [address] Apr, [facility] [id number] [place] [address] Apr, [facility] [id number] [place] [address] Apr, [facility] [id number] [place] [address] Apr, IMMUNIZATIONS No Known Immunizations SOCIAL HISTORY Never Assessed REASON FOR VISIT PLAN OF CARE VITAL SIGNS Height 62 in 2013-09-15 Weight 198 lbs 2013-09-15 Temperature 97.6 degrees Fahrenheit Heart Rate 72 bpm 2013-09-15 Respiratory Rate 20 2013-09-15 Blood pressure systolic 130 mmHg Blood pressure diastolic 76 mmHg 2013-09 MEDICATIONS Unknown Medications RESULTS No Results PROCEDURES Procedure Date Ordered Result Body Site GLYCATED HEMOGLOBIN TEST September 15, 2013 MICROALBUMIN, SEMIQUANT September 15, 2013 MICROALBUMIN, QUANTITATIVE September 15, 2013 INSTRUCTIONS MEDICATIONS ADMINISTERED No Known Medications MEDICAL [...] Hospitalization History Post Stroke pt went to [facility] and then [facility] 10/15/15 Hospitalization History Hypotension, Wander ateral leg weakness--Via [facility] 01/15/16 Hospitalization History hypertension/chest pain 03/2017
--- OUTSIDE RECORDS SUMMARY | 2023-03-21 11:29 | XMS REPORT ---
Author Author Lady SIMMONS Organization [facility] C Address [address] [place] [address] Care Team Providers Care Hourly Sales Staff Name Role Phone OMI SIMMONS Unavailable PROBLEMS Type Condition ICD9-CM Code [id number] Code Onset Dates Condition Status SNOMED Code Problem Panic attack F41.0 Active 661033985 Problem Hypertension I10 Active 05380388 Problem Anxiety F41.9 Active 13058140 Problem Other chronic pain G89.29 Active 64216 001 Problem Dementia with behavioral disturbance, unspecified dementia type F03.91 Active 4736125387107 Problem Hypothyroidism (acquired) E03.9 Active 962639238 Problem Vascular dementia without behavioral disturbance F01.50 Active 234320298 Problem 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 Active 416274210793 Problem Falls frequently R29.6 Active 9703276 02 Problem Type 2 diabetes mellitus with diabetic neuropathy, unspecified E11.40 Active 00309139 Problem 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 Active 01472445 1 Problem Cardiomegaly I51.7 Active 7837758 Problem 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 Active 508665105 Problem Diabetes E11.9 Active 286811738 Problem 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 Active 99499561 Problem History of cerebrovascular accident with hemiparesis or hemiplegia Z86.73 Active 370065324 Problem Bilateral hearing loss, unspecified hearing loss type H91.93 Active 91506567 Problem SNHL (sensory-neural hearing loss), 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 Active 474217244 Problem Left-sided muscle weakness M62.81 Active 653634277 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 66904775 ALLERGIES No Information ENCOUNTERS Encounter Location Date Diagnosis [facility], [place] [address] [id number] [place] [address] 24 Aug, 2019 [facility] [place] [address] [id number] [place] [address] Aug, [facility], [place] [id number] [place] [address] Aug, [facility], [place] [address] [address] Jul, Non insulin dependent diabetes mellitus with ophthalmic complication E11.39 ; Type 2 diabetes mellitus with diabetic neuropathy, unspecified E11.40 ; Hypertension I10 and Physical debility R53.81 [facility], [place] [id number] [place] [address] May, [facility], [place] [address] [address] Apr, [facility] [place] [address] [address] Mar, Type 2 diabetes mellitus with diabetic neuropathy, unspecified E11.40 ; Hypertension I10 ; Diabetes E11.9 ; Dementia with behavioral disturbance, unspecified dementia type F03.91 ; Type 2 diabetes mellitus with complication, without long-term current use of insulin E11.8 and Neck pain M54.2 [facility], [place] [id number] [place] [address] Mar, Dysuria R30.[id number] [place] [address] Feb, [facility], [place] [address] [id number] [place] [address] Feb, [facility], [place] [id number] [place] [address] Jan, [facility], [place] [id number] [place] [address] Dec, [facility], [place] [address] [address] Dec, [facility] [place] [address] [address] Dec, [facility] [place] [address] [address] November, Dental examination Z01.20 and Periodontitis K05.30 [place] [address] [address] November, [place] [address] [address] November, [place] [address] [address] Oct, Encounter for Medicare annual wellness exam [...] hearing loss, unspecified hearing loss type H91.93 [place] [address] [address] Oct, [place] [address] [address] Oct, [place] [address] [address] Sep, [place] [address] [address] Aug, Anxiety F41.9 [place] [address] [address] Aug, Encounter for immunization Z23 [place] [address] [address] Jul, History of cerebrovascular accident with hemiparesis or hemiplegia Z86.73 ; Dementia with behavioral disturbance, unspecified dementia type F03.91 ; Hypothyroidism (acquired) E03.9 ; Type 2 diabetes mellitus with diabetic neuropathy, unspecified E11.40 and 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.39 [place] [address] [address] Jul, [place] [address] [address] Jul, Type 2 diabetes mellitus with diabetic neuropathy, unspecified E11.40 ; Anxiety F41.9 ; Vascular dementia without behavioral disturbance F01.50 ; Moderate episode of recurrent major depressive disorder F33.1 ; Onychomycosis of great toe B35.1 ; 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 and Type 2 diabetes mellitus with complication, without long-term current use of insulin E11.8 [place] [address] [address] Jun, Hypertension I10 ; Anxiety F41.9 ; Dementia with behavioral disturbance, unspecified dementia type F03.91 ; 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 ; Moderate episode of recurrent major depressive disorder F33.1 ; Encounter for immunization Z23 ; Skin lesion of left leg L98.9 ; BMI 28.0-28.9,adult Z68.28 and Other chronic pain G89.29 [place] [address] [address] May, Lymphadenopathy, axillary R59.0 [place] [address] [address] May, [place] [address] [address] Apr, [place] [address] [address] Apr, [place] [address] [address] Apr, [place] [address] [address] Apr, [place] [address] [address] Mar, Anxiety F41.9 ; Moderate episode of recurrent major depressive disorder F33.1 and Dementia with behavioral disturbance, unspecified dementia type F03.91 [place] [address] [address] Mar, [place] [address] [address] Mar, Diabetes E11.9 ; Hypothyroidism (acquired) E03.9 ; Hypertension I10 and Type 2 diabetes mellitus with diabetic neuropathy, unspecified E11.40 [place] [address] [address] Jan, [place] [address] [address] Dec, Anxiety F41.9 and Moderate episode of recurrent major depressive disorder F33.[address] [address] November, [place] [address] [address] November, Chronic cough R05 and Cardiomegaly I51.[address] [address] Oct, Medicare annual wellness visit, initial Z00.00 [...] seizures R56.1 and Encounter for immunization Z23 [place] [address] [address] Sep, [place] [address] [address] Jul, [place] [address] [address] Jul, [id number] [place] [address] Jun, Anxiety F41.9 and Moderate episode of recurrent major depressive disorder F33.1 [place] [address] [address] Jun, Bronchitis J40 and Bilateral hearing loss, unspecified hearing loss type H91.93 [place] [address] [address] Jun, [place] [address] [address] Apr, [place] [address] [address] Apr, Encounter for immunization Z23 and Left breast mass N63.20 [place] [address] [address] 16 Apr, 2017 [place] [address] [address] Mar, CVA (cerebral vascular accident) I63.9 ; Hypertension I10 ; 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 ; Type 2 diabetes mellitus with diabetic neuropathy, unspecified E11.40 and Left breast mass N63 [place] [address] [address] Mar, Mild episode of recurrent major depressive disorder F33.0 and Anxiety F41.9 [place] [address] [address] Mar, Breast mass, left N63 [place] [address] [address] Mar, Breast mass, left N63 [place] [address] [address] Feb, [place] [address] [address] Feb, [place] [address] [address] Feb, [place] [address] [address] Feb, [facility], [place] [address] [address] Feb, Onychomycosis B35.1 and Type 2 diabetes mellitus with complication E11.8 [place] [address] [address] Jan, Mild episode of recurrent major depressive disorder F33.0 and Anxiety F41.9 [place] [address] [address] Jan, [place] [address] [address] Dec, Onychomycosis due to dermatophyte B35.1 ; Moderate episode of recurrent major depressive disorder F33.1 ; Type 2 diabetes mellitus with diabetic neuropathy, unspecified E11.40 ; Falls frequently R29.6 ; Neuropathy G62.9 ; Dementia with behavioral disturbance, unspecified dementia type F03.91 ; Hypothyroidism (acquired) E03.9 and Left hand pain M79.642 [place] [address] [address] Dec, [place] [address] [address] Dec, Hypothyroidism (acquired) E03.9 [place] [address] [address] Dec, Non insulin dependent diabetes mellitus with ophthalmic complication E11.39 [place] [address] [address] November, Hypothyroidism (acquired) E03.9 [facility], [place] [address] [address] Oct, [place] [address] [address] Oct, Non insulin dependent diabetes mellitus with ophthalmic complication E11.39 [place] [address] [address] Oct, [place] [address] [address] Oct, Dysuria R30.0 ; 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 ; Bilateral hearing loss, unspecified hearing loss type H91.93 and 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 [place] [address] [address] Sep, [facility] [address] [facility] [id number] [address] Sep, Open wound of right great toe, initial encounter S91.101A [address] [address] Sep, Breast mass, left N63 ; Non-insulin dependent type 2 diabetes mellitus E11.9 and Vascular dementia without behavioral disturbance F01.[address] [address] Sep, [place] [address] [address] Jul, [address] [address] Jul, Diabetes E11.9 ; Diaper dermatitis L22 ; Candidiasis of skin and nail B37.2 ; Neuropathy G62.9 ; Status post stroke Z86.73 ; Unsteadiness on feet R26.81 and 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 [place] [address] [address] May, [address] [address] May, [address] [address] May, [address] [address] May, Dementia with behavioral disturbance, unspecified dementia type F03.91 [place] [address] [address] 16 May, 2016 Dementia with behavioral disturbance, unspecified dementia type F03.91 ; Encounter for immunization Z23 and Diabetes E11.9 [facility], [place] [address] [address] 09 May, 2016 [place] [address] [address] 08 May, 2016 Neuropathy G62.9 [place] [address] [address] May, [place] [address] [address] Apr, Hypothyroidism (acquired) E03.9 [place] [address] [address] Apr, CVA (cerebral vascular accident) I63.9 ; Left hand weakness M62.81 and Neuropathy G62.9 [place] [address] [address] Apr, Hypokalemia E87.6 [place] [address] [address] Apr, Hypokalemia E87.6 [place] [address] [address] Mar, Diabetes E11.9 ; Edema, unspecified type R60.9 ; Anxiety disorder, unspecified F41.9 ; Pain in left knee M25.562 ; Other chronic pain G89.29 and Status post stroke Z86.73 [place] [address] [address] 15 Mar, 2016 [place] [address] [address] 15 Mar, 2016 [place] [address] [address] 07 Mar, 2016 Neuropathy G62.9 [place] [address] [address] Feb, Anorexia R63.0 and Neuropathy G62.9 [place] [address] [address] Jan, Diabetes E11.9 ; Neuropathy G62.9 ; Panic attack F41.0 ; Pain in left knee M25.562 and Hypertension 401.9 [place] [address] [address] Jan, Weakness R53.1 ; Fatigue, unspecified type R53.83 ; Falling episodes R29.6 and Neuropathy G62.9 [place] [address] [address] Jan, Pain in left knee M25.562 [place] [address] [address] Jan, [place] [address] [address] Jan, [place] [address] [address] Jan, [place] [address] [address] Dec, Diabetes E11.9 ; Neuropathy G62.9 and Dementia F03.90 [place] [address] [address] Dec, [place] [address] [address] Dec, Neuropathy G62.9 ; Diabetes E11.9 ; Anxiety F41.9 and Constipation, unspecified constipation type K59.00 [place] [address] [address] Dec, [place] [address] [address] Dec, Anxiety F41.9 [place] [address] [address] November, [facility], [place] [address] [address] November, Pain in left knee M25.562 ; Other chronic pain G89.29 ; Diabetes E11.9 and Left eye pain H57.12 [facility], [place] [address] [address] November, [facility], [place] [address] [address] November, Hearing loss, unspecified laterality H91.90 [facility], [place] [address] [address] November, [facility], [place] [address] [address] November, [facility], [place] [address] [address] November, Pain in right knee M25.561 [facility], [place] [address] [address] November, [facility], [place] [address] [address] Oct, [facility], [place] [address] [address] Oct, [facility], [place] [address] [address] Oct, Edema of left lower extremity R60.0 ; Diabetes E11.9 ; 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 I63.39 and Anxiety disorder, unspecified F41.9 [facility], [place] [address] [address] Oct, Panic attack F41.0 [facility], [place] [address] [address] 14 Oct, 2015 [facility] [place] [address] [address] Oct, CVA (cerebral vascular accident) I63.9 [facility], [place] [address] [address] Oct, [place] [address] [address] Oct, Diabetes E11.9 ; Hypertension I10 and Dementia F03.90 [place] [address] [address] Sep, [place] [address] [address] Sep, [place] [address] [address] Sep, Diabetes E11.9 ; 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 ; Onychomycosis B35.1 and Fatigue R53.83 [place] [address] [address] Aug, [place] [address] [address] Aug, [place] [address] [address] Jul, [place] [address] [address] Jul, [place] [address] [address] Jun, 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 [place] [address] [address] Jun, Anxiety disorder, unspecified F41.9 and Major depressive disorder, single episode, moderate F32.1 [place] [address] [address] Jun, [place] [address] [address] Jun, [place] [address] [address] May, Left knee pain M25.562 [facility], [place] [address] [address] May, [facility], [place] [address] [address] May, [facility], [place] [address] [address] May, [facility], [place] [address] [address] May, Hypertension I10 ; Diabetes E11.9 and Depression F32.9 [facility], [place] [address] [address] May, [facility], [place] [address] [address] Apr, Left knee pain M25.562 ; Type 2 diabetes mellitus with complication E11.8 and Encounter for immunization Z23 [facility], [place] [address] [address] Apr, [facility], [place] [address] [address] Apr, [facility], [place] [address] [address] Mar, [facility], [place] [address] [address] Mar, Silvestre stanley 727.51 [facility], [place] [address] [address] Mar, [facility] [place] [address] [address] Mar, [facility] [place] [address] [address] Mar, [facility] [place] [address] [address] Feb, [facility] [place] [address] [place] [address] Feb, [facility] [place] [id number] [place] [address] Feb, Hypertension 401.9 and Diabetes 250.00 [facility] [place] [id number] [place] [address] Jan, [facility] [place] [address] [address] Jan, Diabetes 250.00 [facility] [place] [id number] [place] [address] Jan, [facility] [place] [address] [address] Jan, [facility], [place] [id number] [place] [address] Dec, Diabetes 250.00 and Forgetfulness 780.99 [facility] [place] [id number] [place] [address] Dec, [facility] [place] [id number] [place] [address] Dec, Diabetes mellitus 250.00 [facility] [place] [id number] [place] [address] Dec, [facility] [place] [address] [address] Dec, [facility] [place] [address] [address] Dec, [facility] [place] [address] [address] Dec, Diabetes 250.00 and Dysthymia 300.4 [facility] [place] [address] [address] Dec, [facility] [place] [id number] [place] [address] Dec, Grief 309.0 and Diabetes mellitus 250.00 [facility] [place] [id number] [facility] [place] [address] 14 Oct, 2014 [facility] [place] [facility] [address] [facility] [id number] [place] [address] Oct, [facility] [place] [facility] [address] [id number] [place] [address] Jul, [facility] [place] [facility] [address] [id number] [place] [address] Jul, [facility] [place] [facility] [address] [id number] [place] [address] Jul, [facility] [place] [facility] [address] [id number] [place] [address] Jul, [facility] [place] [facility] [address] [id number] [place] [address] Jul, [facility] [place] [facility] [address] [id number] [place] [address] May, [facility] [place] [facility] [address] [id number] [place] [address] May, [facility] [place] [facility] [address] [id number] [place] [address] Apr, [facility] [place] [facility] [address] [id number] [place] [address] Apr, [facility] [place] [facility] [address] [id number] [place] [address] Mar, [facility] [place] [facility] [address] [id number] [place] [address] Mar, [facility] [place] [facility] [address] [id number] [place] [address] Feb, [facility] [place] [facility] [address] [id number] [place] [address] Feb, [facility] [place] [facility] [address] [id number] [place] [address] Feb, [facility] [place] [facility] [address] [id number] [place] [address] Feb, [facility] [place] [facility] [address] [id number] [place] [address] Feb, [facility] [place] [facility] [address] [id number] [place] [address] Feb, [facility] [place] [facility] [address] [id number] [place] [address] November, [facility] [place] [facility] [address] [id number] [place] [address] November, [facility] [place] [facility] [address] [id number] [place] [address] Sep, [facility] [place] [facility] [address] [id number] [place] [address] Sep, [facility] [place] [facility] [address] [id number] [place] [address] Sep, [facility] [place] [facility] [address] [id number] [place] [address] Sep, [facility] [place] [facility] [address] [id number] [place] [address] Sep, [facility] [place] [facility] [address] [id number] [place] [address] Sep, [facility] [place] [facility] [address] [id number] [place] [address] Sep, [facility] [place] [facility] [address] [id number] [place] [address] Sep, [facility] [place] [facility] [address] [id number] [place] [address] Aug, [facility] [place] [facility] [address] [id number] [place] [address] Aug, [facility] [place] [facility] [address] [id number] [place] [address] Jul, [facility] [place] [facility] [address] [id number] [place] [address] Jul, [facility] [place] [facility] [address] [id number] [place] [address] Jul, [facility] [place] [facility] [address] [id number] [place] [address] Jul, [facility] [place] [facility] [address] [id number] [place] [address] Jun, [facility] [place] [facility] [address] [id number] [place] [address] Jun, [facility] [place] [facility] [address] [id number] [place] [address] May, [facility] [place] [facility] [address] [id number] [place] [address] May, [facility] [address] [id number] [place] [address] May, [facility] [address] [id number] [place] [address] May, [facility] [address] [id number] [place] [address] May, [facility] [address] [id number] [place] [address] May, [facility] [address] [id number] [place] [address] Apr, [facility] [address] [id number] [place] [address] Apr, [facility] [address] [id number] [place] [address] Apr, [facility] [address] [id number] [place] [address] Apr, [facility] [address] [id number] [place] [address] Mar, [facility] [address] [id number] [place] [address] Mar, [facility] [address] [id number] [place] [address] Jan, [facility] [address] [id number] [place] [address] Jan, [facility] [address] [id number] [place] [address] Jan, [facility] [address] [id number] [place] [address] November, [facility] [address] [id number] [place] [address] November, [facility] [address] [id number] [place] [id number] November, [facility] [address] [id number] [place] [address] November, [facility] [address] [id number] [place] [address] Aug, [facility] [address] [id number] [place] [address] Jul, [facility] [id number] [place] [address] Jul, [facility] [address] [id number] [place] [address] Jul, [facility] [id number] [place] [address] Jun, [facility] [address] [id number] [place] [address] Jun, [facility] [address] [id number] [place] [address] May, [facility] [address] [id number] [place] [address] May, [facility] [id number] [place] [address] Apr, [facility] [address] [id number] [place] [address] Apr, [facility] [address] [id number] [place] [address] Apr, [facility] [address] [id number] [place] [address] Apr, [facility] [address] [id number] [place] [address] Apr, [facility] [address] [id number] [place] [address] Apr, [facility] [address] [id number] [place] [address] Apr, [facility] [address] [id number] [place] [address] Apr, [facility] [address] [id number] [place] [address] Apr, [facility] [address] [id number] [place] [address] Mar, [facility] [address] [id number] [place] [address] Feb, [facility] [address] [id number] [place] [address] November, [facility] [address] [id number] [place] [address] November, [facility] [address] [id number] [place] [address] November, [facility] [address] [id number] [place] [address] November, [facility] [address] [id number] [place] [address] Jun, [facility] [address] [id number] [place] [address] Jun, [facility] [address] [id number] [place] [address] May, [facility] [address] [id number] [place] [address] May, [facility] [address] [id number] [place] [address] Apr, [facility] [place] [address] [id number] [place] [address] Apr, [facility] [place] [address] [id number] [place] [address] May, [facility] [place] [address] [id number] [place] [address] Apr, [facility] [place] [address] [id number] [place] [address] Apr, [facility] [place] [address] [id number] [place] [address] Apr, [facility] [place] [address] [id number] [place] [address] Apr, IMMUNIZATIONS No Known Immunizations SOCIAL HISTORY [...] Hospitalization History Post Stroke pt went to [facility] and then [facility] 10/15/15 Hospitalization History Hypotension, Wander ateral leg weakness--Via [facility] 01/15/16 Hospitalization History hypertension/chest pain 03/2017
--- OUTSIDE RECORDS SUMMARY | 2023-03-21 11:29 | XMS REPORT ---
Author Author Lady SIMMONS Organization [facility] C Address [address] [place] [address] Care Team Providers Care Body Welder Name Role Phone OMI SIMMONS Unavailable PROBLEMS Type Condition ICD9-CM Code [id number] Code Onset Dates Condition Status SNOMED Code Problem Panic attack F41.0 Active 032727934 Problem Hypertension I10 Active 94640752 Problem Anxiety F41.9 Active 60693167 Problem Other chronic pain G89.29 Active 92805 001 Problem Dementia with behavioral disturbance, unspecified dementia type F03.91 Active 3060451984757 Problem Hypothyroidism (acquired) E03.9 Active 603552314 Problem Vascular dementia without behavioral disturbance F01.50 Active 559108813 Problem 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 Active 924776353902 Problem Falls frequently R29.6 Active 8390531 02 Problem Type 2 diabetes mellitus with diabetic neuropathy, unspecified E11.40 Active 83987578 Problem Moderate episode of recurrent major depressive disorder F33.1 Active 38899562 1 Problem Cardiomegaly I51.7 Active 8922217 Problem 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 Active 429106714 Problem Diabetes E11.9 Active 225897229 Problem 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 Active 19254277 Problem History of cerebrovascular accident with hemiparesis or hemiplegia Z86.73 Active 520250973 Problem Bilateral hearing loss, unspecified hearing loss type H91.93 Active 79957248 Problem SNHL (sensory-neural hearing loss), 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 Active 171376970 Problem Left-sided muscle weakness M62.81 Active 558645384 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 11085751 ALLERGIES No Information ENCOUNTERS Encounter Location Date Diagnosis [facility] [address] [facility] [id number] [address] Oct, [facility] [id number] [address] Oct, [facility] [address], [place] [address] Aug, [facility] [address], [place] [address] Aug, [facility] [address], [place] [address] Aug, [facility] [id number] [place] [address] Jul, 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 ; Type 2 diabetes mellitus with diabetic neuropathy, unspecified E11.40 ; Hypertension I10 and Physical debility R53.81 [place] [address], [place] [address] May, [place] [address], [place] [address] Apr, [place] [address] [address] Mar, Type 2 diabetes mellitus with diabetic neuropathy, unspecified E11.40 ; Hypertension I10 ; Diabetes E11.9 ; Dementia with behavioral disturbance, unspecified dementia type F03.91 ; Type 2 diabetes mellitus with complication, without long-term current use of insulin E11.8 and Neck pain M54.2 [place] [id number] [address] Mar, Dysuria R30.[address] [id number] [address] Feb, [place] [id number] [address] Feb, [facility] [address] [facility] [id number] [address] Jan, [place] [id number] [address] Dec, [facility] [address], [place] [address] Dec, [facility] [id number] [place] [address] Dec, [facility] [address], [place] [address] November, Dental examination Z01.20 and Periodontitis K05.30 [facility] [address], [place] [address] November, [facility] [id number] [place] [address] November, [facility] [id number] [place] [address] Oct, Encounter for Medicare annual wellness exam [...] loss, unspecified hearing loss type H91.93 [facility] [address] [address] Oct, [facility] [address], [place] [address] Oct, [facility] [address], [place] [address] Sep, [facility] [address] [address] Aug, Anxiety F41.9 [facility] [id number] [address] Aug, Encounter for immunization Z23 [place] [id number] [place] [address] Jul, History of cerebrovascular accident with hemiparesis or hemiplegia Z86.73 ; Dementia with behavioral disturbance, unspecified dementia type F03.91 ; Hypothyroidism (acquired) E03.9 ; Type 2 diabetes mellitus with diabetic neuropathy, unspecified E11.40 and 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 [place] [address] [address] Jul, [place] [address] [address] Jul, Type 2 diabetes mellitus with diabetic neuropathy, unspecified E11.40 ; Anxiety F41.9 ; Vascular dementia without behavioral disturbance F01.50 ; Moderate episode of recurrent major depressive disorder F33.1 ; Onychomycosis of great toe B35.1 ; 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 and Type 2 diabetes mellitus with complication, without long-term current use of insulin E11.8 [place] [id number] [place] [address] Jun, Hypertension I10 ; Anxiety F41.9 ; Dementia with behavioral disturbance, unspecified dementia type F03.91 ; 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 ; Moderate episode of recurrent major depressive disorder F33.1 ; Encounter for immunization Z23 ; Skin lesion of left leg L98.9 ; BMI 28.0-28.9,adult Z68.28 and Other chronic pain G89.29 [place] [id number] [place] [address] May, Lymphadenopathy, axillary R59.[address] [address] May, [place] [id number] [place] [address] Apr, [address] [address] Apr, [facility] [address], [place] [address] Apr, [facility] [id number] [place] [address] Apr, [facility] [id number] [place] [address] Mar, Anxiety F41.9 ; Moderate episode of recurrent major depressive disorder F33.1 and Dementia with behavioral disturbance, unspecified dementia type F03.91 [place] [id number] [place] [address] Mar, [place] [id number] [place] [address] Mar, Diabetes E11.9 ; Hypothyroidism (acquired) E03.9 ; Hypertension I10 and Type 2 diabetes mellitus with diabetic neuropathy, unspecified E11.40 [place] [id number] [place] [address] Jan, [place] [id number] [place] [address] Dec, Anxiety F41.9 and Moderate episode of recurrent major depressive disorder F33.1 [place] [id number] [place] [address] November, [place] [id number] [place] [address] November, Chronic cough R05 and Cardiomegaly I51.7 [place] [address], [place] [address] Oct, Medicare annual wellness visit, initial Z00.00 [...] and Encounter for immunization Z23 [place] [id number] [place] [address] Sep, [place] [address] [address] Jul, [place] [address] [address] Jul, [place] [address] [address] Jun, Anxiety F41.9 and Moderate episode of recurrent major depressive disorder F33.1 [place] [address] [address] Jun, Bronchitis J40 and Bilateral hearing loss, unspecified hearing loss type H91.93 [place] [address] [address] Jun, [place] [address] [address] Apr, [place] [id number] [place] [address] Apr, Encounter for immunization Z23 and Left breast mass N63.20 [place] [id number] [place] [address] Apr, [place] [id number] [place] [address] Mar, CVA (cerebral vascular accident) I63.9 ; Hypertension I10 ; 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 ; Type 2 diabetes mellitus with diabetic neuropathy, unspecified E11.40 and Left breast mass N63 [place] [id number] [place] [address] Mar, Mild episode of recurrent major depressive disorder F33.0 and Anxiety F41.9 [place] [address] [address] Mar, Breast mass, left N63 [facility] [id number] [place] [address] Mar, Breast mass, left N63 [facility] [id number] [place] [address] Feb, [facility] [id number] [place] [address] Feb, [place] [id number] [place] [address] Feb, [place] [id number] [place] [address] Feb, [place] [id number] [place] [address] Feb, Onychomycosis B35.1 and Type 2 diabetes mellitus with complication E11.8 [place] [id number] [place] [address] Jan, Mild episode of recurrent major depressive disorder F33.0 and Anxiety F41.9 [place] [id number] [place] [address] Jan, [place] [id number] [place] [address] Dec, Onychomycosis due to dermatophyte B35.1 ; 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.1 ; Type 2 diabetes mellitus with diabetic neuropathy, unspecified E11.40 ; Falls frequently R29.6 ; Neuropathy G62.9 ; Dementia with behavioral disturbance, unspecified dementia type F03.91 ; Hypothyroidism (acquired) E03.9 and Left hand pain M79.642 [facility] [id number] [place] [address] Dec, [place] [id number] [place] [address] Dec, Hypothyroidism (acquired) E03.9 [facility] [id number] [place] [address] Dec, 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 [facility] [id number] [place] [address] November, Hypothyroidism (acquired) E03.9 [facility] [id number] [place] [address] Oct, [place] [id number] [place] [address] Oct, 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 [place] [id number] [place] [address] Oct, [place] [address] [address] Oct, Dysuria R30.0 ; 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 ; Bilateral hearing loss, unspecified hearing loss type H91.93 and 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 [place] [id number] [place] [address] Sep, [facility] [id number] [place] [address] Sep, Open wound of right great toe, initial encounter S91.101A [facility] [id number] [place] [address] Sep, Breast mass, left N63 ; Non-insulin dependent type 2 diabetes mellitus E11.9 and Vascular dementia without behavioral disturbance F01.50 [facility] [id number] [place] [address] Sep, [facility] [id number] [place] [address] Jul, [place] [id number] [place] [address] Jul, Diabetes E11.9 ; Diaper dermatitis L22 ; Candidiasis of skin and nail B37.2 ; Neuropathy G62.9 ; Status post stroke Z86.73 ; Unsteadiness on feet R26.81 and 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 [place] [address] [address] May, [place] [address] [address] May, [place] [address] [address] May, [place] [address] [address] May, Dementia with behavioral disturbance, unspecified dementia type F03.91 [place] [address] [address] May, Dementia with behavioral disturbance, unspecified dementia type F03.91 ; Encounter for immunization Z23 and Diabetes E11.9 [place] [address] [address] May, [place] [address] [address] May, Neuropathy G62.9 [place] [address] [address] May, [place] [address] [address] Apr, Hypothyroidism (acquired) E03.9 [place] [address] [address] Apr, CVA (cerebral vascular accident) I63.9 ; Left hand weakness M62.81 and Neuropathy G62.9 [place] [address] [address] Apr, Hypokalemia E87.6 [place] [id number] [place] [address] Apr, Hypokalemia E87.6 [place] [id number] [place] [address] Mar, Diabetes E11.9 ; Edema, unspecified type R60.9 ; Anxiety disorder, unspecified F41.9 ; Pain in left knee M25.562 ; Other chronic pain G89.29 and Status post stroke Z86.73 [place] [address] [address] Mar, [place] [address] [address] Mar, [place] [address] [address] Mar, Neuropathy G62.9 [place] [address] [address] Feb, Anorexia R63.0 and Neuropathy G62.9 [place] [address] [address] Jan, Diabetes E11.9 ; Neuropathy G62.9 ; Panic attack F41.0 ; Pain in left knee M25.562 and Hypertension 401.9 [place] [id number] [place] [address] Jan, Weakness R53.1 ; Fatigue, unspecified type R53.83 ; Falling episodes R29.6 and Neuropathy G62.9 [place] [id number] [place] [address] Jan, Pain in left knee M25.562 [place] [address] [address] Jan, [place] [address] [place] [address] Jan, [facility] [id number] [place] [address] Jan, [facility] [id number] [place] [address] Dec, Diabetes E11.9 ; Neuropathy G62.9 and Dementia F03.90 [facility] [address] [address] Dec, [facility] [id number] [place] [address] Dec, Neuropathy G62.9 ; Diabetes E11.9 ; Anxiety F41.9 and Constipation, unspecified constipation type K59.00 [facility] [id number] [place] [address] Dec, [facility] [address] [address] Dec, Anxiety F41.9 [facility] [id number] [place] [address] November, [facility] [id number] [place] [address] November, Pain in left knee M25.562 ; Other chronic pain G89.29 ; Diabetes E11.9 and Left eye pain H57.12 [facility] [id number] [place] [address] November, [facility] [id number] [place] [address] November, Hearing loss, unspecified laterality H91.90 [facility] [id number] [place] [address] November, [facility] [id number] [place] [address] November, [facility] [address] [place] [address] November, Pain in right knee M25.561 [facility] [id number] [place] [address] November, [facility] [id number] [place] [address] Oct, [facility] [id number] [place] [address] Oct, [facility] [id number] [place] [address] Oct, Edema of left lower extremity R60.0 ; Diabetes E11.9 ; 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 I63.39 and Anxiety disorder, unspecified F41.9 [place] [id number] [place] [address] Oct, Panic attack F41.0 [facility] [id number] [place] [address] 14 Oct, 2015 [facility] [id number] [place] [address] Oct, CVA (cerebral vascular accident) I63.9 [facility] [id number] [place] [address] Oct, [facility] [id number] [place] [address] Oct, Diabetes E11.9 ; Hypertension I10 and Dementia F03.90 [facility] [id number] [place] [address] Sep, [facility] [id number] [place] [address] Sep, [facility] [address] [place] [address] Sep, Diabetes E11.9 ; 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 ; Onychomycosis B35.1 and Fatigue R53.83 [facility] [id number] [place] [address] Aug, [facility] [id number] [place] [address] Aug, [facility] [id number] [place] [address] Jul, [facility] [id number] [place] [address] Jul, [facility] [id number] [place] [address] Jun, 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 [place] [id number] [place] [address] Jun, Anxiety disorder, unspecified F41.9 and Major depressive disorder, single episode, moderate F32.1 [facility] [id number] [place] [address] Jun, [facility] [id number] [place] [address] Jun, [facility] [id number] [place] [address] May, Left knee pain M25.562 [facility] [id number] [place] [address] May, [facility] [id number] [place] [address] May, [facility] [id number] [place] [address] May, [facility] [id number] [place] [address] May, Hypertension I10 ; Diabetes E11.9 and Depression F32.9 [facility] [address] [place] [address] May, [facility] [id number] [place] [address] Apr, Left knee pain M25.562 ; Type 2 diabetes mellitus with complication E11.8 and Encounter for immunization Z23 [facility] [id number] [place] [address] Apr, [facility] [id number] [place] [address] Apr, [facility] [id number] [place] [address] Mar, [facility] [id number] [place] [address] Mar, Silvestre stanley 727.51 [facility] [id number] [place] [id number] Mar, [facility] [id number] [place] [id number] Mar, [facility] [id number] [place] [id number] Mar, [facility] [id number] [place] [phone] Feb, [facility] [id number] [place] [id number] Feb, [facility] [id number] [place] [id number] Feb, Hypertension 401.9 and Diabetes 250.00 [facility] [id number] [place] [id number] Jan, [facility] [id number] [place] [id number] Jan, Diabetes 250.00 [facility] [id number] [place] [id number] Jan, [facility] [id number] [address] Jan, [facility] [id number] [place] [id number] Dec, Diabetes 250.00 and Forgetfulness 780.99 [facility] [id number] [place] [id number] Dec, [facility] [id number] [place] [id number] Dec, Diabetes mellitus 250.00 [facility] [id number] [place] [phone] Dec, [facility] [id number] [address] Dec, [facility] [id number] [place] [id number] Dec, [facility] [id number] [place] [address] Dec, Diabetes 250.00 and Dysthymia 300.4 [facility] [address] [address] Dec, [facility] [address] [address] Dec, Grief 309.0 and Diabetes mellitus 250.00 [facility] [address] [address] Oct, [facility] [address] [address] Oct, [facility] [address] [address] Jul, [facility] [address] [address] Jul, [facility] [place] [facility] [address] [id number] [place] [address] Jul, [facility] [place] [facility] [address] [id number] [place] [address] Jul, [facility] [place] [facility] [address] [id number] [place] [address] Jul, [facility] [place] [facility] [address] [id number] [place] [address] May, [facility] [place] [facility] [address] [id number] [place] [address] May, [facility] [place] [facility] [address] [id number] [place] [address] Apr, [facility] [place] [facility] [address] [id number] [place] [address] Apr, [facility] [place] [facility] [address] [id number] [place] [address] Mar, [facility] [place] [facility] [address] [id number] [place] [address] Mar, [facility] [place] [facility] [address] [id number] [place] [address] Feb, [facility] [place] [facility] [address] [id number] [place] [address] Feb, [facility] [place] [facility] [address] [id number] [place] [address] Feb, [facility] [place] [facility] [address] [id number] [place] [address] Feb, [facility] [place] [facility] [address] [id number] [place] [address] Feb, [facility] [place] [facility] [address] [id number] [place] [address] Feb, [facility] [place] [facility] [address] [id number] [place] [address] November, [facility] [place] [facility] [address] [id number] [place] [address] November, [facility] [place] [facility] [address] [id number] [place] [address] Sep, [facility] [place] [facility] [address] [id number] [place] [address] Sep, [facility] [place] [facility] [address] [id number] [place] [address] Sep, [facility] [place] [facility] [address] [id number] [place] [address] Sep, [facility] [place] [facility] [address] [id number] [place] [address] Sep, [facility] [place] [facility] [address] [id number] [place] [address] Sep, [facility] [place] [facility] [address] [id number] [place] [address] Sep, [facility] [place] [facility] [address] [id number] [place] [address] Sep, [facility] [place] [facility] [address] [id number] [place] [address] Aug, [facility] [place] [facility] [address] [id number] [place] [address] Aug, [facility] [place] [facility] [address] [id number] [place] [address] Jul, [facility] [place] [facility] [address] [id number] [place] [address] Jul, [facility] [place] [facility] [address] [id number] [place] [address] Jul, [facility] [place] [facility] [address] [id number] [place] [address] Jul, [facility] [place] [facility] [address] [id number] [place] [address] Jun, [facility] [address] [id number] [place] [address] Jun, [facility] [place] [facility] [address] [id number] [place] [address] May, [facility] [address] [id number] [place] [address] May, [facility] [place] [facility] [address] [id number] [place] [address] May, [facility] [address] [id number] [place] [address] May, [facility] [place] [facility] [address] [id number] [place] [address] May, [facility] [place] [facility] [address] [id number] [place] [address] May, [facility] [address] [id number] [place] [address] Apr, [facility] [place] [facility] [address] [id number] [place] [address] Apr, [facility] [address] [id number] [place] [address] Apr, [facility] [place] [facility] [address] [id number] [place] [address] Apr, [facility] [place] [facility] [address] [id number] [place] [address] Mar, [facility] [place] [facility] [address] [id number] [place] [address] Mar, [facility] [place] [facility] [address] [id number] [place] [address] Jan, [facility] [place] [facility] [address] [id number] [place] [address] Jan, [facility] [address] [id number] [place] [address] Jan, [facility] [place] [facility] [address] [id number] [place] [address] November, [facility] [address] [id number] [place] [address] November, [facility] [place] [facility] [address] [id number] [place] [address] November, [facility] [address] [id number] [place] [address] November, [facility] [place] [facility] [address] [id number] [place] [address] Aug, [facility] [place] [facility] [address] [id number] [place] [address] Jul, [facility] [place] [facility] [address] [id number] [place] [address] Jul, [facility] [place] [facility] [address] [id number] [place] [address] Jul, [facility] [place] [facility] [address] [id number] [place] [address] Jun, [facility] [place] [facility] [address] [id number] [place] [address] Jun, [facility] [place] [facility] [address] [id number] [place] [address] May, [facility] [place] [facility] [address] [id number] [place] [address] May, [facility] [place] [facility] [address] [id number] [place] [address] Apr, [facility] [place] [facility] [address] [id number] [place] [address] Apr, [facility] [place] [facility] [address] [id number] [place] [address] Apr, [facility] [place] [facility] [address] [id number] [place] [address] Apr, [facility] [place] [facility] [address] [id number] [place] [address] Apr, [facility] [place] [facility] [address] [id number] [place] [address] Apr, [facility] [place] [facility] [address] [id number] [place] [address] Apr, [facility] [place] [facility] [address] [id number] [place] [address] Apr, [facility] [place] [facility] [address] [id number] [place] [address] Apr, [facility] [place] [facility] [address] [id number] [place] [address] Mar, [facility] [place] [facility] [address] [id number] [place] [address] Feb, [facility] [place] [facility] [address] [id number] [place] [address] November, [facility] [place] [facility] [address] [id number] [place] [address] November, [facility] [place] [facility] [address] [id number] [place] [address] November, [facility] [place] [facility] [address] [id number] [place] [address] November, [facility] [place] [facility] [address] [id number] [place] [address] Jun, [facility] [place] [facility] [address] [id number] [place] [address] Jun, [facility] [place] [facility] [address] [id number] [place] [address] May, [facility] [place] [facility] [id number] [address] May, [facility] [id number] [address] Apr, [facility] [address] [facility] [id number] [address] Apr, [facility] [address], [place] [address] May, [facility] [address], [place] [address] Apr, [facility] [address], [place] [address] Apr, [facility] [address], [place] [address] Apr, [facility] [address] [place] [address] Apr, IMMUNIZATIONS No Known Immunizations SOCIAL HISTORY [...] [facility] and then [facility] 10/15/15 Hospitalization History Hypotension, Wander ateral leg weakness--[facility] 01/15/16 Hospitalization History hypertension/chest pain 03/2017
--- OUTSIDE RECORDS SUMMARY | 2023-03-21 11:29 | XMS REPORT ---
Author Author Lady SIMMONS Organization [facility] C Address [address] [place] [address] Care Team Providers Care Data Management Manager Name Role Phone OMI SIMMONS Unavailable PROBLEMS Type Condition ICD9-CM Code [id number] Code Onset Dates Condition Status SNOMED Code Problem Panic attack F41.0 Active 494444224 Problem Hypertension I10 Active 48719218 Problem Anxiety F41.9 Active 42642299 Problem Other chronic pain G89.29 Active 05444 001 Problem Dementia with behavioral disturbance, unspecified dementia type F03.91 Active 1077083756205 Problem Hypothyroidism (acquired) E03.9 Active 117032404 Problem Vascular dementia without behavioral disturbance F01.50 Active 175317501 Problem 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 Active 550935699484 Problem Falls frequently R29.6 Active 9293161 02 Problem Type 2 diabetes mellitus with diabetic neuropathy, unspecified E11.40 Active 99094523 Problem Moderate episode of recurrent major depressive disorder F33.1 Active 36947960 1 Problem Cardiomegaly I51.7 Active 6469421 Problem 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 Active 139376201 Problem Diabetes E11.9 Active 934327004 Problem 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 Active 52620288 Problem History of cerebrovascular accident with hemiparesis or hemiplegia Z86.73 Active 771101624 Problem Bilateral hearing loss, unspecified hearing loss type H91.93 Active 17295018 Problem SNHL (sensory-neural hearing loss), 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 Active 626907170 Problem Left-sided muscle weakness M62.81 Active 496218457 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 33402491 ALLERGIES No Information ENCOUNTERS Encounter Location Date Diagnosis [facility], [place] [address] [facility] [id number] [address] Oct, [facility], [place] [id number] [address] Oct, [facility], [place] [address] [address] Aug, [facility], [place] [address], [place] [address] Aug, [facility], [place] [address], [place] [address] Aug, [facility], [place] [address] [place] [address] Jul, Non insulin dependent diabetes mellitus with ophthalmic complication E11.39 ; Type 2 diabetes mellitus with diabetic neuropathy, unspecified E11.40 ; Hypertension I10 and Physical debility R53.81 [place] [address], [place] [address] May, [place] [address], [place] [address] Apr, [place] [address], [place] [address] Mar, Type 2 diabetes mellitus with diabetic neuropathy, unspecified E11.40 ; Hypertension I10 ; Diabetes E11.9 ; Dementia with behavioral disturbance, unspecified dementia type F03.91 ; Type 2 diabetes mellitus with complication, without long-term current use of insulin E11.8 and Neck pain M54.2 [place] [id number] [address] Mar, Dysuria R30.[address] [id number] [address] Feb, [place] [id number] [address] Feb, [facility], [place] [address] [facility] [id number], [place] [address] Jan, [place] [id number] [address] Dec, [facility], [place] [address], [place] [address] Dec, [facility], [place] [id number] [place] [address] Dec, [facility], [place] [address], [place] [address] November, Dental examination Z01.20 and Periodontitis K05.30 [facility], [place] [address], [place] [address] November, [facility], [place] [id number] [place] [address] November, [facility], [place] [address] [place] [address] Oct, Encounter for Medicare annual wellness exam [...] hearing loss, unspecified hearing loss type H91.93 [facility], [place] [address], [place] [address] Oct, [facility], [place] [address], [place] [address] Oct, [facility], [place] [address], [place] [address] Sep, [facility], [place] [address], [place] [address] Aug, Anxiety F41.9 [facility], [place] [id number] [address] Aug, Encounter for immunization Z23 [place] [id number] [place] [address] Jul, History of cerebrovascular accident with hemiparesis or hemiplegia Z86.73 ; Dementia with behavioral disturbance, unspecified dementia type F03.91 ; Hypothyroidism (acquired) E03.9 ; Type 2 diabetes mellitus with diabetic neuropathy, unspecified E11.40 and 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 [place] [address] [address] Jul, [place] [address] [address] Jul, Type 2 diabetes mellitus with diabetic neuropathy, unspecified E11.40 ; Anxiety F41.9 ; Vascular dementia without behavioral disturbance F01.50 ; Moderate episode of recurrent major depressive disorder F33.1 ; Onychomycosis of great toe B35.1 ; 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 and Type 2 diabetes mellitus with complication, without long-term current use of insulin E11.8 [place] [id number] [place] [address] Jun, Hypertension I10 ; Anxiety F41.9 ; Dementia with behavioral disturbance, unspecified dementia type F03.91 ; 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 ; Moderate episode of recurrent major depressive disorder F33.1 ; Encounter for immunization Z23 ; Skin lesion of left leg L98.9 ; BMI 28.0-28.9,adult Z68.28 and Other chronic pain G89.29 [place] [id number] [place] [address] May, Lymphadenopathy, axillary R59.[address] [address] May, [place] [id number] [place] [address] Apr, [address] [address] Apr, [facility], [place] [address], [place] [address] Apr, [facility], [place] [id number] [place] [address] Apr, [facility], [place] [id number] [place] [address] Mar, Anxiety F41.9 ; Moderate episode of recurrent major depressive disorder F33.1 and Dementia with behavioral disturbance, unspecified dementia type F03.91 [place] [id number] [place] [address] Mar, [place] [id number] [place] [address] Mar, Diabetes E11.9 ; Hypothyroidism (acquired) E03.9 ; Hypertension I10 and Type 2 diabetes mellitus with diabetic neuropathy, unspecified E11.40 [place] [id number] [place] [address] Jan, [place] [id number] [place] [address] Dec, Anxiety F41.9 and Moderate episode of recurrent major depressive disorder F33.1 [place] [address] [place] [address] November, [place] [id number] [place] [address] November, Chronic cough R05 and Cardiomegaly I51.7 [place] [address], [place] [address] Oct, Medicare annual wellness visit, initial Z00.00 [...] seizures R56.1 and Encounter for immunization Z23 [place] [id number] [place] [address] Sep, [place] [address] [address] Jul, [place] [address] [address] Jul, [place] [address] [address] Jun, Anxiety F41.9 and Moderate episode of recurrent major depressive disorder F33.1 [place] [address] [address] Jun, Bronchitis J40 and Bilateral hearing loss, unspecified hearing loss type H91.93 [place] [address] [address] Jun, [place] [address] [address] Apr, [place] [id number] [place] [address] Apr, Encounter for immunization Z23 and Left breast mass N63.20 [place] [id number] [place] [address] Apr, [place] [id number] [place] [address] Mar, CVA (cerebral vascular accident) I63.9 ; Hypertension I10 ; 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.39 ; Type 2 diabetes mellitus with diabetic neuropathy, unspecified E11.40 and Left breast mass N63 [place] [id number] [place] [address] Mar, Mild episode of recurrent major depressive disorder F33.0 and Anxiety F41.9 [place] [address] [address] Mar, Breast mass, left N63 [facility], [place] [id number] [place] [address] Mar, Breast mass, left N63 [facility], [place] [id number] [place] [address] Feb, [facility], [place] [id number] [place] [address] Feb, [place] [id number] [place] [address] Feb, [place] [id number] [place] [address] Feb, [place] [id number] [place] [address] Feb, Onychomycosis B35.1 and Type 2 diabetes mellitus with complication E11.8 [place] [id number] [place] [address] Jan, Mild episode of recurrent major depressive disorder F33.0 and Anxiety F41.9 [place] [address] [place] [address] Jan, [place] [id number] [place] [address] Dec, Onychomycosis due to dermatophyte B35.1 ; Moderate episode of recurrent major depressive disorder F33.1 ; Type 2 diabetes mellitus with diabetic neuropathy, unspecified E11.40 ; Falls frequently R29.6 ; Neuropathy G62.9 ; Dementia with behavioral disturbance, unspecified dementia type F03.91 ; Hypothyroidism (acquired) E03.9 and Left hand pain M79.642 [facility], [place] [address] [place] [address] Dec, [place] [id number] [place] [address] Dec, Hypothyroidism (acquired) E03.9 [facility], [place] [id number] [place] [address] Dec, 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.39 [facility], [place] [id number] [place] [address] November, Hypothyroidism (acquired) E03.9 [facility], [place] [id number] [place] [address] Oct, [place] [id number] [place] [address] Oct, Non insulin dependent diabetes mellitus with ophthalmic complication E11.39 [place] [id number] [place] [address] Oct, [place] [address] [address] Oct, Dysuria R30.0 ; 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 [id number] [place] [address] Sep, Open wound of right great toe, initial encounter S91.101A [facility], [place] [id number] [place] [address] Sep, Breast mass, left N63 ; Non-insulin dependent type 2 diabetes mellitus E11.9 and Vascular dementia without behavioral disturbance F01.50 [facility], [place] [id number] [place] [address] Sep, [facility], [place] [id number] [place] [address] Jul, [place] [id number] [place] [address] Jul, Diabetes E11.9 ; Diaper dermatitis L22 ; Candidiasis of skin and nail B37.2 ; Neuropathy G62.9 ; Status post stroke Z86.73 ; Unsteadiness on feet R26.81 and 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 [place] [address] [address] May, [place] [address] [address] May, [place] [address] [address] May, [place] [address] [address] May, Dementia with behavioral disturbance, unspecified dementia type F03.91 [place] [address] [address] May, Dementia with behavioral disturbance, unspecified dementia type F03.91 ; Encounter for immunization Z23 and Diabetes E11.9 [place] [address] [address] May, [place] [address] [address] May, Neuropathy G62.9 [place] [address] [address] May, [place] [address] [address] Apr, Hypothyroidism (acquired) E03.9 [place] [address] [address] Apr, CVA (cerebral vascular accident) I63.9 ; Left hand weakness M62.81 and Neuropathy G62.9 [place] [address] [address] Apr, Hypokalemia E87.6 [place] [id number] [place] [address] Apr, Hypokalemia E87.6 [place] [id number] [place] [address] Mar, Diabetes E11.9 ; Edema, unspecified type R60.9 ; Anxiety disorder, unspecified F41.9 ; Pain in left knee M25.562 ; Other chronic pain G89.29 and Status post stroke Z86.73 [place] [address] [address] Mar, [place] [address] [address] Mar, [place] [address] [address] Mar, Neuropathy G62.9 [place] [address] [address] Feb, Anorexia R63.0 and Neuropathy G62.9 [place] [address] [address] Jan, Diabetes E11.9 ; Neuropathy G62.9 ; Panic attack F41.0 ; Pain in left knee M25.562 and Hypertension 401.9 [place] [id number] [place] [address] Jan, Weakness R53.1 ; Fatigue, unspecified type R53.83 ; Falling episodes R29.6 and Neuropathy G62.9 [place] [id number] [place] [address] Jan, Pain in left knee M25.562 [place] [address] [address] Jan, [place] [address] [place] [address] Jan, [facility], [place] [id number] [place] [address] Jan, [facility], [place] [id number] [place] [address] Dec, Diabetes E11.9 ; Neuropathy G62.9 and Dementia F03.90 [facility], [place] [address] [address] Dec, [facility], [place] [id number] [place] [address] Dec, Neuropathy G62.9 ; Diabetes E11.9 ; Anxiety F41.9 and Constipation, unspecified constipation type K59.00 [facility], [place] [id number] [place] [address] Dec, [facility], [place] [address] [address] Dec, Anxiety F41.9 [facility], [place] [id number] [place] [address] November, [facility], [place] [id number] [place] [address] November, Pain in left knee M25.562 ; Other chronic pain G89.29 ; Diabetes E11.9 and Left eye pain H57.12 [facility], [place] [id number] [place] [address] November, [facility], [place] [id number] [place] [address] November, Hearing loss, unspecified laterality H91.90 [facility], [place] [address] [place] [id number] [place] [address] November, [facility], [place] [id number] [place] [address] November, [facility], [place] [address] [place] [address] November, Pain in right knee M25.561 [facility], [place] [id number] [place] [address] November, [facility], [place] [id number] [place] [address] Oct, [facility], [place] [id number] [place] [address] Oct, [facility], [place] [id number] [place] [address] Oct, Edema of left lower extremity R60.0 ; Diabetes E11.9 ; 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 I63.39 and Anxiety disorder, unspecified F41.9 [place] [id number] [place] [address] Oct, Panic attack F41.0 [facility], [place] [id number] [place] [address] 14 Oct, 2015 [facility], [place] [id number] [place] [address] Oct, CVA (cerebral vascular accident) I63.9 [facility], [place] [id number] [place] [address] Oct, [facility], [place] [id number] [place] [address] Oct, Diabetes E11.9 ; Hypertension I10 and Dementia F03.90 [facility], [place] [id number] [place] [address] Sep, [facility], [place] [id number] [place] [address] Sep, [facility], [place] [address] [place] [address] Sep, Diabetes E11.9 ; 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 ; Onychomycosis B35.1 and Fatigue R53.83 [facility], [place] [id number] [place] [address] Aug, [facility], [place] [id number] [place] [address] Aug, [facility], [place] [id number] [place] [address] Jul, [facility], [place] [id number] [place] [address] Jul, [facility], [place] [id number] [place] [address] Jun, 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 [place] [id number] [place] [address] Jun, Anxiety disorder, unspecified F41.9 and Major depressive disorder, single episode, moderate F32.1 [facility], [place] [id number] [place] [address] Jun, [facility], [place] [id number] [place] [address] Jun, [facility], [place] [id number] [place] [address] May, Left knee pain M25.562 [facility], [place] [id number] [place] [address] May, [facility], [place] [id number] [place] [address] May, [facility], [place] [id number] [place] [address] May, [facility], [place] [id number] [place] [address] May, Hypertension I10 ; Diabetes E11.9 and Depression F32.9 [facility], [place] [address] [place] [address] May, [facility], [place] [id number] [place] [address] Apr, Left knee pain M25.562 ; Type 2 diabetes mellitus with complication E11.8 and Encounter for immunization Z23 [facility], [place] [id number] [place] [address] Apr, [facility], [place] [id number] [place] [address] Apr, [facility], [place] [id number] [place] [phone] Mar, [facility], [place] [id number] [place] [phone] Mar, Silvestre stanley 727.51 [facility], [place] [id number] [place] [phone] Mar, [facility], [place] [id number] [place] [phone] Mar, [facility], [place] [id number] [place] [phone] Mar, [facility], [place] [id number] [place] [phone] Feb, [facility], [place] [id number] [place] [phone] Feb, [facility], [place] [id number] [place] [phone] Feb, Hypertension 401.9 and Diabetes 250.00 [facility], [place] [id number] [place] [phone] Jan, [facility], [place] [id number] [place] [phone] Jan, Diabetes 250.00 [facility], [place] [id number] [place] [phone] Jan, [facility], [place] [id number] [address] Jan, [facility], [place] [id number] [place] [phone] Dec, Diabetes 250.00 and Forgetfulness 780.99 [facility], [place] [id number] [place] [phone] Dec, [facility], [place] [id number] [place] [phone] Dec, Diabetes mellitus 250.00 [facility], [place] [id number] [place] [phone] Dec, [facility], [place] [id number] [address] Dec, [facility], [place] [id number] [place] [address] Dec, [facility] [place] [id number] [address] Dec, Diabetes 250.00 and Dysthymia 300.4 [facility], [place] [id number] [address] Dec, [facility] [place] [id number] [address] Dec, Grief 309.0 and Diabetes mellitus 250.00 [facility] [place] [id number] [address] Oct, [facility] [place] [id number] [address] Oct, [facility] [place] [id number] [address] Jul, [facility], [place] [id number] [address] Jul, [facility] [place] [facility] [address] [id number] [place] [address] Jul, [facility] [place] [facility] [address] [id number] [place] [address] Jul, [facility] [place] [facility] [address] [id number] [place] [address] Jul, [facility] [place] [facility] [address] [id number] [place] [address] May, [facility] [place] [facility] [address] [id number] [place] [address] May, [facility] [place] [facility] [address] [id number] [place] [address] Apr, [facility] [place] [facility] [address] [id number] [place] [address] Apr, [facility] [place] [facility] [address] [id number] [place] [address] Mar, [facility] [place] [facility] [address] [id number] [place] [address] Mar, [facility] [place] [facility] [address] [id number] [place] [address] Feb, [facility] [place] [facility] [address] [id number] [place] [address] Feb, [facility] [place] [facility] [address] [id number] [place] [address] Feb, [facility] [place] [facility] [address] [id number] [place] [address] Feb, [facility] [place] [facility] [address] [id number] [place] [address] Feb, [facility] [place] [facility] [address] [id number] [place] [address] Feb, [facility] [place] [facility] [address] [id number] [place] [address] November, [facility] [place] [facility] [address] [id number] [place] [address] November, [facility] [place] [facility] [address] [id number] [place] [address] Sep, [facility] [place] [facility] [address] [id number] [place] [address] Sep, [facility] [place] [facility] [address] [id number] [place] [address] Sep, [facility] [place] [facility] [address] [id number] [place] [address] Sep, [facility] [place] [facility] [address] [id number] [place] [address] Sep, [facility] [place] [facility] [address] [id number] [place] [address] Sep, [facility] [place] [facility] [address] [id number] [place] [address] Sep, [facility] [place] [facility] [address] [id number] [place] [address] Sep, [facility] [place] [facility] [address] [id number] [place] [address] Aug, [facility] [place] [facility] [address] [id number] [place] [address] Aug, [facility] [place] [facility] [address] [id number] [place] [address] Jul, [facility] [place] [facility] [address] [id number] [place] [address] Jul, [facility] [place] [facility] [address] [id number] [place] [address] Jul, [facility] [place] [facility] [address] [id number] [place] [address] Jul, [facility] [place] [facility] [address] [id number] [place] [address] Jun, [facility] [address] [id number] [place] [address] Jun, [facility] [place] [facility] [address] [id number] [place] [address] May, [facility] [address] [id number] [place] [address] May, [facility] [place] [facility] [address] [id number] [place] [address] May, [facility] [address] [id number] [place] [address] May, [facility] [place] [facility] [address] [id number] [place] [address] May, [facility] [place] [facility] [address] [id number] [place] [address] May, [facility] [address] [id number] [place] [address] Apr, [facility] [place] [facility] [address] [id number] [place] [address] Apr, [facility] [address] [id number] [place] [address] Apr, [facility] [place] [facility] [address] [id number] [place] [address] Apr, [facility] [place] [facility] [address] [id number] [place] [address] Mar, [facility] [place] [facility] [address] [id number] [place] [address] Mar, [facility] [place] [facility] [address] [id number] [place] [address] Jan, [facility] [place] [facility] [address] [id number] [place] [address] Jan, [facility] [address] [id number] [place] [address] Jan, [facility] [place] [facility] [address] [id number] [place] [address] November, [facility] [address] [id number] [place] [address] November, [facility] [place] [facility] [address] [id number] [place] [address] November, [facility] [address] [id number] [place] [address] November, [facility] [place] [facility] [address] [id number] [place] [address] Aug, [facility] [place] [facility] [address] [id number] [place] [address] Jul, [facility] [place] [facility] [address] [id number] [place] [address] Jul, [facility] [place] [facility] [address] [id number] [place] [address] Jul, [facility] [place] [facility] [address] [id number] [place] [address] Jun, [facility] [place] [facility] [address] [id number] [place] [address] Jun, [facility] [place] [facility] [address] [id number] [place] [address] May, [facility] [place] [facility] [address] [id number] [place] [address] May, [facility] [place] [facility] [address] [id number] [place] [address] Apr, [facility] [place] [facility] [address] [id number] [place] [address] Apr, [facility] [place] [facility] [address] [id number] [place] [address] Apr, [facility] [place] [facility] [address] [id number] [place] [address] Apr, [facility] [place] [facility] [address] [id number] [place] [address] Apr, [facility] [place] [facility] [address] [id number] [place] [address] Apr, [facility] [place] [facility] [address] [id number] [place] [address] Apr, [facility] [place] [facility] [address] [id number] [place] [address] Apr, [facility] [place] [facility] [address] [id number] [place] [address] Apr, [facility] [place] [facility] [address] [id number] [place] [address] Mar, [facility] [place] [facility] [address] [id number] [place] [address] Feb, [facility] [place] [facility] [address] [id number] [place] [address] November, [facility] [place] [facility] [address] [id number] [place] [address] November, [facility] [place] [facility] [address] [id number] [place] [address] November, [facility] [place] [facility] [address] [id number] [place] [address] November, [facility] [place] [facility] [address] [id number] [place] [address] Jun, [facility] [place] [facility] [address] [id number] [place] [address] Jun, [facility] [place] [facility] [address] [id number] [place] [address] May, [facility] [place] [facility] [id number] [address] May, [facility] [place] [id number] [address] Apr, [facility] [place] [address] [facility] [id number] [address] Apr, [facility] [place] [id number] [place] [address] May, [facility] [place] [id number] [place] [address] Apr, [facility] [place] [id number] [place] [address] Apr, [facility] [place] [id number] [place] [address] Apr, [facility] [place] [id number] [place] [address] Apr, IMMUNIZATIONS No Known Immunizations SOCIAL HISTORY [...] Hospitalization History Post Stroke pt went to [facility] and then [facility] 10/15/15 Hospitalization History Hypotension, Wander ateral leg weakness--Via [facility] 01/15/16 Hospitalization History hypertension/chest pain 03/2017
--- OUTSIDE RECORDS SUMMARY | 2023-03-21 11:29 | XMS REPORT ---
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 Apprentice Name Role Phone Migration, Doctor Unavailable Unavailable PROBLEMS Type Condition ICD9-CM Code THR79-OZ Code Onset Dates Condition Status SNOMED Code Problem Panic attack F41.0 Active 919502234 Problem Hypertension I10 Active 28223896 Problem Anxiety F41.9 Active 43798094 Problem Other chronic pain G89.29 Active 67939 001 Problem Dementia with behavioral disturbance, unspecified dementia type F03.91 Active 7618396591364 Problem Hypothyroidism (acquired) E03.9 Active 220640217 Problem Vascular dementia without behavioral disturbance F01.50 Active 390083351 Problem 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 Active 667505096940 Problem Falls frequently R29.6 Active 4846440 02 Problem Type 2 diabetes mellitus with diabetic neuropathy, unspecified E11.40 Active 29740287 Problem 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 Active 30055660 1 Problem Cardiomegaly I51.7 Active 4549536 Problem 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 Active 973680857 Problem Diabetes E11.9 Active 687443069 Problem 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 Active 71602879 Problem History of cerebrovascular accident with hemiparesis or hemiplegia Z86.73 Active 430210119 Problem Bilateral hearing loss, unspecified hearing loss type H91.93 Active 89020723 Problem SNHL (sensory-neural hearing loss), 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 Active 737085008 Problem Left-sided muscle weakness M62.81 Active 604731622 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 [id number] [address] Oct, [facility] [address] [address] Aug, [facility] [address] [address] Aug, [facility] [address] [address] Aug, [facility] [address] [place] [address] Jul, Non insulin dependent diabetes mellitus with ophthalmic complication E11.39 ; Type 2 diabetes mellitus with diabetic neuropathy, unspecified E11.40 ; Hypertension I10 and Physical debility R53.81 [facility] [id number] [place] [address] May, [facility] [address] [place] [address] Apr, [facility] [id number] [place] [address] Mar, Type 2 diabetes mellitus with diabetic neuropathy, unspecified E11.40 ; Hypertension I10 ; Diabetes E11.9 ; Dementia with behavioral disturbance, unspecified dementia type F03.91 ; Type 2 diabetes mellitus with complication, without long-term current use of insulin E11.8 and Neck pain M54.2 [facility] [address] [address] Mar, Dysuria R30.[address] [id number] [address] Feb, [facility] [id number] [address] Feb, [facility] [address] [address] Jan, [facility] [id number] [address] Dec, [facility] [address] [address] Dec, [facility] [id number] [place] [address] Dec, [facility] [id number] [place] [address] November, Dental examination Z01.20 and Periodontitis K05.30 [facility] [id number] [place] [address] November, [facility] [id number] [place] [address] November, [address] [address] [address] Oct, Encounter for Medicare annual wellness exam [...] unspecified hearing loss type H91.93 [facility] [id number] [place] [address] Oct, [facility] [id number] [place] [address] Oct, [facility] [id number] [place] [address] Sep, [facility] [id number] [place] [address] Aug, Anxiety F41.9 [facility] [id number] [place] [address] Aug, Encounter for immunization Z23 [facility] [id number] [place] [address] Jul, History of cerebrovascular accident with hemiparesis or hemiplegia Z86.73 ; Dementia with behavioral disturbance, unspecified dementia type F03.91 ; Hypothyroidism (acquired) E03.9 ; Type 2 diabetes mellitus with diabetic neuropathy, unspecified E11.40 and Non insulin dependent diabetes mellitus with ophthalmic complication E11.39 [facility] [id number] [place] [address] Jul, [facility] [address] [address] Jul, Type 2 diabetes mellitus with diabetic neuropathy, unspecified E11.40 ; Anxiety F41.9 ; Vascular dementia without behavioral disturbance F01.50 ; Moderate episode of recurrent major depressive disorder F33.1 ; Onychomycosis of great toe B35.1 ; 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.39 and Type 2 diabetes mellitus with complication, without long-term current use of insulin E11.8 [facility] [address] [address] Jun, Hypertension I10 ; Anxiety F41.9 ; Dementia with behavioral disturbance, unspecified dementia type F03.91 ; 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 ; Moderate episode of recurrent major depressive disorder F33.1 ; Encounter for immunization Z23 ; Skin lesion of left leg L98.9 ; BMI 28.0-28.9,adult Z68.28 and Other chronic pain G89.29 [facility] [id number] [place] [address] May, Lymphadenopathy, axillary R59.0 [facility] [id number] [place] [address] May, [facility] [address] [address] Apr, [facility] [id number] [place] [address] Apr, [facility] [address] [address] Apr, [facility] [address] [place] [address] Apr, [facility] [id number] [place] [address] Mar, Anxiety F41.9 ; Moderate episode of recurrent major depressive disorder F33.1 and Dementia with behavioral disturbance, unspecified dementia type F03.91 [facility] [address] [place] [address] Mar, [facility] [id number] [place] [address] Mar, Diabetes E11.9 ; Hypothyroidism (acquired) E03.9 ; Hypertension I10 and Type 2 diabetes mellitus with diabetic neuropathy, unspecified E11.40 [facility] [address] [place] [address] Jan, [facility] [address] [place] [address] Dec, Anxiety F41.9 and Moderate episode of recurrent major depressive disorder F33.1 [facility] [address] [place] [address] November, [facility] [address] [place] [address] November, Chronic cough R05 and Cardiomegaly I51.7 [facility] [address] [place] [address] Oct, Medicare annual wellness visit, initial Z00.00 [...] and Encounter for immunization Z23 [facility] [id number] [place] [address] Sep, [facility] [address] [place] [address] Jul, [facility] [address] [place] [address] Jul, [facility] [place] [address] [address] Jun, Anxiety F41.9 and Moderate episode of recurrent major depressive disorder F33.1 [facility] [address] [address] Jun, Bronchitis J40 and Bilateral hearing loss, unspecified hearing loss type H91.93 [facility] [place] [address] [address] Jun, [facility] [id number] [place] [address] Apr, [facility] [address] [address] Apr, Encounter for immunization Z23 and Left breast mass N63.20 [facility] [id number] [place] [address] Apr, [facility] [id number] [place] [address] Mar, CVA (cerebral vascular accident) I63.9 ; Hypertension I10 ; Non insulin dependent diabetes mellitus with ophthalmic complication E11.39 ; Type 2 diabetes mellitus with diabetic neuropathy, unspecified E11.40 and Left breast mass N63 [facility] [address] [place] [address] Mar, Mild episode of recurrent major depressive disorder F33.0 and Anxiety F41.9 [facility] [address] [place] [address] Mar, Breast mass, left N63 [facility] [address] [place] [address] Mar, Breast mass, left N63 [facility] [address] [address] Feb, [facility] [id number] [place] [address] Feb, [facility] [address] [place] [address] Feb, [facility] [id number] [place] [address] Feb, [facility] [address] [place] [address] Feb, Onychomycosis B35.1 and Type 2 diabetes mellitus with complication E11.8 [facility] [address] [place] [address] Jan, Mild episode of recurrent major depressive disorder F33.0 and Anxiety F41.9 [facility] [address] [place] [address] Jan, [facility] [address] [place] [address] Dec, Onychomycosis due to dermatophyte B35.1 ; Moderate episode of recurrent major depressive disorder F33.1 ; Type 2 diabetes mellitus with diabetic neuropathy, unspecified E11.40 ; Falls frequently R29.6 ; Neuropathy G62.9 ; Dementia with behavioral disturbance, unspecified dementia type F03.91 ; Hypothyroidism (acquired) E03.9 and Left hand pain M79.642 [facility] [address] [address] Dec, [facility] [address] [place] [address] Dec, Hypothyroidism (acquired) E03.9 [facility] [address] [place] [address] Dec, Non insulin dependent diabetes mellitus with ophthalmic complication E11.39 [facility] [id number] [place] [address] November, Hypothyroidism (acquired) E03.9 [facility] [id number] [place] [address] Oct, [facility] [id number] [place] [address] Oct, Non insulin dependent diabetes mellitus with ophthalmic complication E11.39 [facility] [id number] [place] [address] Oct, [facility] [address] [place] [address] Oct, Dysuria R30.0 ; Non insulin dependent diabetes mellitus with ophthalmic complication E11.39 ; Bilateral hearing loss, unspecified hearing loss type H91.93 and 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 [facility] [id number] [place] [address] Sep, [facility] [address] [place] [address] Sep, Open wound of right great toe, initial encounter S91.101A [facility] [address] [place] [address] Sep, Breast mass, left N63 ; Non-insulin dependent type 2 diabetes mellitus E11.9 and Vascular dementia without behavioral disturbance F01.50 [facility] [id number] [place] [address] Sep, [facility] [id number] [place] [address] Jul, [facility] [id number] [place] [address] Jul, Diabetes E11.9 ; Diaper dermatitis L22 ; Candidiasis of skin and nail B37.2 ; Neuropathy G62.9 ; Status post stroke Z86.73 ; Unsteadiness on feet R26.81 and 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 [facility] [address] [place] [address] May, [facility] [address] [address] May, [facility] [address] [address] May, [facility] [address] [address] May, Dementia with behavioral disturbance, unspecified dementia type F03.91 [facility] [address] [address] May, Dementia with behavioral disturbance, unspecified dementia type F03.91 ; Encounter for immunization Z23 and Diabetes E11.9 [facility] [address] [address] May, [facility] [address] [address] May, Neuropathy G62.9 [facility] [address] [address] May, [facility] [address] [address] Apr, Hypothyroidism (acquired) E03.9 [facility] [address] [address] Apr, CVA (cerebral vascular accident) I63.9 ; Left hand weakness M62.81 and Neuropathy G62.9 [facility] [address] [address] Apr, Hypokalemia E87.6 [facility] [id number] [place] [address] Apr, Hypokalemia E87.6 [facility] [address] [place] [address] Mar, Diabetes E11.9 ; Edema, unspecified type R60.9 ; Anxiety disorder, unspecified F41.9 ; Pain in left knee M25.562 ; Other chronic pain G89.29 and Status post stroke Z86.73 [facility] [address] [place] [address] Mar, [facility] [address] [address] Mar, [facility] [id number] [place] [address] Mar, Neuropathy G62.9 [facility] [address] [address] Feb, Anorexia R63.0 and Neuropathy G62.9 [facility] [address] [place] [address] Jan, Diabetes E11.9 ; Neuropathy G62.9 ; Panic attack F41.0 ; Pain in left knee M25.562 and Hypertension 401.9 [facility] [address] [place] [address] Jan, Weakness R53.1 ; Fatigue, unspecified type R53.83 ; Falling episodes R29.6 and Neuropathy G62.9 [facility] [address] [place] [address] Jan, Pain in left knee M25.562 [facility] [address] [place] [address] Jan, [facility] [address] [place] [address] Jan, [facility] [id number] [place] [address] Jan, [facility] [id number] [place] [address] Dec, Diabetes E11.9 ; Neuropathy G62.9 and Dementia F03.90 [facility] [id number] [place] [address] Dec, [facility] [address] [address] Dec, Neuropathy G62.9 ; Diabetes E11.9 ; Anxiety F41.9 and Constipation, unspecified constipation type K59.00 [facility] [address] [place] [address] Dec, [facility] [address] [place] [address] Dec, Anxiety F41.9 [facility] [address] [place] [address] November, [facility] [address] [place] [address] November, Pain in left knee M25.562 ; Other chronic pain G89.29 ; Diabetes E11.9 and Left eye pain H57.12 [facility] [address] [place] [address] November, [facility] [address] [place] [address] November, Hearing loss, unspecified laterality H91.90 [facility] [id number] [place] [address] November, [facility] [id number] [place] [address] November, [facility] [address] [place] [address] November, Pain in right knee M25.561 [facility] [address] [place] [address] November, [facility] [address] [place] [address] Oct, [facility] [address] [place] [address] Oct, [facility] [address] [place] [address] Oct, Edema of left lower extremity R60.0 ; Diabetes E11.9 ; 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 I63.39 and Anxiety disorder, unspecified F41.9 [facility] [address] [place] [address] Oct, Panic attack F41.0 [facility] [address] [address] 14 Oct, 2015 [facility] [address] [place] [address] Oct, CVA (cerebral vascular accident) I63.9 [facility] [address] [place] [address] Oct, [facility] [address] [place] [address] Oct, Diabetes E11.9 ; Hypertension I10 and Dementia F03.90 [facility] [address] [place] [address] 30 Sep, 2015 [facility] [address] [place] [address] Sep, [facility] [address] [place] [address] Sep, Diabetes E11.9 ; 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 ; Onychomycosis B35.1 and Fatigue R53.83 [facility] [address] [place] [address] Aug, [facility] [id number] [place] [address] Aug, [facility] [id number] [place] [address] Jul, [facility] [id number] [place] [address] Jul, [facility] [id number] [place] [address] Jun, 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 [facility] [id number] [place] [address] Jun, Anxiety disorder, unspecified F41.9 and Major depressive disorder, single episode, moderate F32.1 [facility] [id number] [place] [address] Jun, [facility] [id number] [place] [address] Jun, [facility] [id number] [place] [address] May, Left knee pain M25.562 [facility] [id number] [place] [address] May, [facility] [id number] [place] [address] May, [facility] [address] [place] [address] May, [facility] [id number] [place] [address] May, Hypertension I10 ; Diabetes E11.9 and Depression F32.9 [facility] [id number] [place] [address] May, [facility] [address] [address] Apr, Left knee pain M25.562 ; Type 2 diabetes mellitus with complication E11.8 and Encounter for immunization Z23 [facility] [address] [address] Apr, [facility] [id number] [place] [address] Apr, [facility] [id number] [place] [address] Mar, [facility] [id number] [place] [address] Mar, Silvestre stanley 727.51 [facility] [id number] [place] [address] Mar, [facility] [id number] [place] [address] Mar, [facility] [id number] [place] [address] Mar, [facility] [id number] [place] [address] Feb, [facility] [address] [address] Feb, [facility] [id number] [place] [id number] Feb, Hypertension 401.9 and Diabetes 250.00 [facility] [address] [address] Jan, [facility] [id number] [place] [id number] Jan, Diabetes 250.00 [facility] [id number] [address] Jan, [facility] [id number] [address] Jan, [facility] [id number] [address] Dec, Diabetes 250.00 and Forgetfulness 780.99 [facility] [id number] [address] Dec, [facility] [id number] [place] [id number] Dec, Diabetes mellitus 250.00 [facility] [id number] [place] [phone] Dec, [facility] [id number] [place] [id number] Dec, [facility] [id number] [place] [id number] Dec, [facility] [id number] [place] [id number] Dec, Diabetes 250.00 and Dysthymia 300.4 [facility] [address] [address] Dec, [facility] [id number] [address] Dec, Grief 309.0 and Diabetes mellitus 250.00 [facility] [id number] [address] Oct, [facility] [id number] [address] Oct, [facility] [id number] [address] Jul, [facility] [id number] [address] Jul, [facility] [id number] [address] Jul, [facility] [place] [facility] [id number] [place] [address] Jul, [facility] [place] [facility] [address] [address] [id number] [place] [address] Jul, [facility] [place] [facility] [address] [id number] [place] [address] May, [facility] [place] [facility] [address] [id number] [place] [address] May, [facility] [place] [facility] [address] [id number] [place] [address] Apr, [facility] [place] [facility] [address] [id number] [place] [address] Apr, [facility] [place] [facility] [address] [id number] [place] [address] Mar, [facility] [place] [facility] [address] [id number] [place] [address] Mar, [facility] [place] [facility] [address] [id number] [place] [address] Feb, [facility] [place] [facility] [address] [id number] [place] [address] Feb, [facility] [place] [facility] [address] [id number] [place] [address] Feb, [facility] [place] [facility] [address] [id number] [place] [address] Feb, [facility] [place] [facility] [address] [id number] [place] [address] Feb, [facility] [place] [facility] [address] [id number] [place] [address] Feb, [facility] [place] [facility] [address] [id number] [place] [address] November, [facility] [place] [facility] [address] [id number] [place] [address] November, [facility] [place] [facility] [address] [id number] [place] [address] Sep, [facility] [place] [facility] [address] [id number] [place] [address] Sep, [facility] [place] [facility] [address] [id number] [place] [address] Sep, [facility] [place] [facility] [address] [id number] [place] [address] Sep, [facility] [place] [facility] [address] [id number] [place] [address] Sep, [facility] [place] [facility] [address] [id number] [place] [address] Sep, [facility] [place] [facility] [address] [id number] [place] [address] Sep, [facility] [place] [facility] [address] [id number] [place] [address] Sep, [facility] [place] [facility] [address] [id number] [place] [address] Aug, [facility] [place] [facility] [address] [id number] [place] [address] Aug, [facility] [place] [facility] [address] [id number] [place] [address] Jul, [facility] [place] [facility] [address] [id number] [place] [address] Jul, [facility] [place] [facility] [address] [id number] [place] [address] Jul, [facility] [place] [facility] [address] [id number] [place] [address] Jul, [facility] [place] [facility] [address] [id number] [address] Jun, [facility] [place] [facility] [address] [id number] [place] [address] Jun, [facility] [place] [facility] [address] [id number] [place] [address] May, [facility] [place] [facility] [address] [id number] [place] [address] May, [facility] [place] [facility] [address] [id number] [place] [address] May, [facility] [place] [facility] [address] [id number] [place] [address] May, [facility] [place] [facility] [address] [id number] [place] [address] May, [facility] [place] [facility] [address] [id number] [place] [address] May, [facility] [place] [facility] [address] [id number] [place] [address] Apr, [facility] [place] [facility] [address] [id number] [place] [address] Apr, [facility] [place] [facility] [address] [id number] [place] [address] Apr, [facility] [place] [facility] [address] [id number] [place] [address] Apr, [facility] [place] [facility] [address] [id number] [place] [address] Mar, [facility] [place] [facility] [address] [id number] [place] [address] Mar, [facility] [place] [facility] [address] [id number] [place] [address] Jan, [facility] [place] [facility] [address] [id number] [place] [address] 17 Jan, 2013 [facility] [place] [facility] [address] [id number] [place] [address] Jan, [facility] [address] [id number] [place] [address] November, [facility] [place] [facility] [address] [id number] [place] [address] November, [facility] [place] [facility] [address] [id number] [place] [address] November, [facility] [place] [facility] [address] [id number] [place] [address] November, [facility] [address] [id number] [place] [address] Aug, [facility] [place] [facility] [address] [id number] [place] [address] Jul, [facility] [place] [facility] [address] [id number] [place] [address] Jul, [facility] [place] [facility] [address] [id number] [place] [address] Jul, [facility] [address] [id number] [place] [address] Jun, [facility] [place] [facility] [address] [id number] [place] [address] Jun, [facility] [place] [facility] [address] [id number] [place] [address] May, [facility] [place] [facility] [address] [id number] [place] [address] May, [facility] [place] [facility] [address] [id number] [place] [address] Apr, [facility] [place] [facility] [address] [id number] [place] [address] Apr, [facility] [place] [facility] [address] [id number] [place] [address] Apr, [facility] [place] [facility] [address] [id number] [place] [address] Apr, [facility] [address] [id number] [place] [address] Apr, [facility] [place] [facility] [address] [id number] [place] [address] Apr, [facility] [address] [id number] [place] [address] Apr, [facility] [place] [facility] [address] [id number] [place] [address] Apr, [facility] [address] [id number] [place] [address] Apr, [facility] [place] [facility] [address] [id number] [place] [address] Mar, [facility] [place] [facility] [address] [id number] [place] [address] Feb, [facility] [address] [id number] [place] [address] November, [facility] [place] [facility] [address] [id number] [place] [address] November, [facility] [address] [id number] [place] [address] November, [facility] [place] [facility] [address] [id number] [place] [address] November, [facility] [address] [id number] [place] [address] Jun, [facility] [place] [facility] [address] [id number] [place] [address] Jun, [facility] [place] [facility] [address] [id number] [place] [address] May, [facility] [place] [facility] [address] [id number] [place] [address] May, [facility] [address] [facility] [id number][place] [address] Apr, [facility] [address] [facility] [id number], [place] [address] Apr, [facility] [address] [facility] [id number][place] [address] May, [facility] [address] [facility] [id number][place] [address] Apr, [facility] [address] [facility] [id number][place] [address] Apr, [facility] [address] [id number] [address] Apr, [facility] [address] [facility] [id number][place] [address] Apr, IMMUNIZATIONS No Known Immunizations SOCIAL HISTORY [...] Hospitalization History Post Stroke pt went to [facility] and then [facility] 10/15/15 Hospitalization History Hypotension, Wander ateral leg weakness--Via [facility] 01/15/16 Hospitalization History hypertension/chest pain 03/2017
--- OUTSIDE RECORDS SUMMARY | 2023-03-21 11:29 | XMS REPORT ---
Author Author Lady SIMMONS Organization [facility] Address [address] [place] [address] Care Team Providers Care Mobility Developer Name Role Phone OMI SIMMONS Unavailable PROBLEMS Type Condition ICD9-CM Code AJW15-II Code Onset Dates Condition Status SNOMED Code Problem Panic attack F41.0 Active 881559079 Problem Hypertension I10 Active 63461964 Problem Anxiety F41.9 Active 44001104 Problem Other chronic pain G89.29 Active 71165 001 Problem Dementia with behavioral disturbance, unspecified dementia type F03.91 Active 5922471971761 Problem Hypothyroidism (acquired) E03.9 Active 942558828 Problem Vascular dementia without behavioral disturbance F01.50 Active 580009069 Problem 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 Active 561645795834 Problem Falls frequently R29.6 Active 6025102 02 Problem Type 2 diabetes mellitus with diabetic neuropathy, unspecified E11.40 Active 25115526 Problem Moderate episode of recurrent major depressive disorder F33.1 Active 38559955 1 Problem Cardiomegaly I51.7 Active 1573148 Problem 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 Active 529398337 Problem Diabetes E11.9 Active 410774943 Problem 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 Active 40516825 Problem History of cerebrovascular accident with hemiparesis or hemiplegia Z86.73 Active 640191592 Problem Bilateral hearing loss, unspecified hearing loss type H91.93 Active 06796820 Problem SNHL (sensory-neural hearing loss), 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 Active 900666753 Problem Left-sided muscle weakness M62.81 Active 590125336 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 59712817 ALLERGIES No Information ENCOUNTERS Encounter Location Date Diagnosis [facility] [address] [facility] [id number] [address] Oct, [facility] [id number] [address] Oct, [facility] [address], [place] [address] Aug, [facility] [address], [place] [address] Aug, [facility] [address], [place] [address] Aug, [facility] [address] [place] [address] Jul, 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 ; Type 2 diabetes mellitus with diabetic neuropathy, unspecified E11.40 ; Hypertension I10 and Physical debility R53.81 [place] [address], [place] [address] May, [place] [address], [place] [address] Apr, [place] [address], [place] [address] Mar, Type 2 diabetes mellitus with diabetic neuropathy, unspecified E11.40 ; Hypertension I10 ; Diabetes E11.9 ; Dementia with behavioral disturbance, unspecified dementia type F03.91 ; Type 2 diabetes mellitus with complication, without long-term current use of insulin E11.8 and Neck pain M54.2 [place] [id number] [address] Mar, Dysuria R30.[address] [id number] [address] Feb, [place] [id number] [address] Feb, [facility] [address] [facility] [id number] [address] Jan, [place] [id number] [address] Dec, [facility] [address], [place] [address] Dec, [facility] [address] [place] [address] Dec, [facility] [address], [place] [address] November, Dental examination Z01.20 and Periodontitis K05.30 [facility] [address], [place] [address] November, [facility] [id number] [place] [address] November, [facility] [id number] [place] [address] Oct, Encounter for Medicare annual wellness exam [...] hearing loss, unspecified hearing loss type H91.93 [facility] [address], [place] [address] Oct, [facility] [address], [place] [address] Oct, [facility] [address], [place] [address] Sep, [facility] [address], [place] [address] Aug, Anxiety F41.9 [facility] [id number] [address] Aug, Encounter for immunization Z23 [place] [id number] [place] [address] Jul, History of cerebrovascular accident with hemiparesis or hemiplegia Z86.73 ; Dementia with behavioral disturbance, unspecified dementia type F03.91 ; Hypothyroidism (acquired) E03.9 ; Type 2 diabetes mellitus with diabetic neuropathy, unspecified E11.40 and 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 [place] [address] [address] Jul, [place] [address] [address] Jul, Type 2 diabetes mellitus with diabetic neuropathy, unspecified E11.40 ; Anxiety F41.9 ; Vascular dementia without behavioral disturbance F01.50 ; Moderate episode of recurrent major depressive disorder F33.1 ; Onychomycosis of great toe B35.1 ; 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 and Type 2 diabetes mellitus with complication, without long-term current use of insulin E11.8 [place] [id number] [place] [address] Jun, Hypertension I10 ; Anxiety F41.9 ; Dementia with behavioral disturbance, unspecified dementia type F03.91 ; 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 ; Moderate episode of recurrent major depressive disorder F33.1 ; Encounter for immunization Z23 ; Skin lesion of left leg L98.9 ; BMI 28.0-28.9,adult Z68.28 and Other chronic pain G89.29 [place] [id number] [place] [address] May, Lymphadenopathy, axillary R59.[address] [address] May, [place] [id number] [place] [address] Apr, [address] [address] Apr, [facility] [address], [place] [address] Apr, [facility] [id number] [place] [address] Apr, [facility] [id number] [place] [address] Mar, Anxiety F41.9 ; Moderate episode of recurrent major depressive disorder F33.1 and Dementia with behavioral disturbance, unspecified dementia type F03.91 [place] [id number] [place] [address] Mar, [place] [id number] [place] [address] Mar, Diabetes E11.9 ; Hypothyroidism (acquired) E03.9 ; Hypertension I10 and Type 2 diabetes mellitus with diabetic neuropathy, unspecified E11.40 [place] [id number] [place] [address] Jan, [place] [id number] [place] [address] Dec, Anxiety F41.9 and Moderate episode of recurrent major depressive disorder F33.1 [place] [address] [place] [address] November, [place] [id number] [place] [address] November, Chronic cough R05 and Cardiomegaly I51.7 [place] [address], [place] [address] Oct, Medicare annual wellness visit, initial Z00.00 [...] seizures R56.1 and Encounter for immunization Z23 [place] [id number] [place] [address] Sep, [place] [address] [address] Jul, [place] [address] [address] Jul, [place] [address] [address] Jun, Anxiety F41.9 and Moderate episode of recurrent major depressive disorder F33.1 [place] [address] [address] Jun, Bronchitis J40 and Bilateral hearing loss, unspecified hearing loss type H91.93 [place] [address] [address] Jun, [place] [address] [address] Apr, [place] [id number] [place] [address] Apr, Encounter for immunization Z23 and Left breast mass N63.20 [place] [id number] [place] [address] Apr, [place] [id number] [place] [address] Mar, CVA (cerebral vascular accident) I63.9 ; Hypertension I10 ; 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 ; Type 2 diabetes mellitus with diabetic neuropathy, unspecified E11.40 and Left breast mass N63 [place] [id number] [place] [address] Mar, Mild episode of recurrent major depressive disorder F33.0 and Anxiety F41.9 [place] [address], [place] [address] Mar, Breast mass, left N63 [facility] [id number] [place] [address] Mar, Breast mass, left N63 [facility] [id number] [place] [address] Feb, [facility] [id number] [place] [address] Feb, [place] [id number] [place] [address] Feb, [place] [id number] [place] [address] Feb, [place] [id number] [place] [address] Feb, Onychomycosis B35.1 and Type 2 diabetes mellitus with complication E11.8 [place] [id number] [place] [address] Jan, Mild episode of recurrent major depressive disorder F33.0 and Anxiety F41.9 [place] [address] [place] [address] Jan, [place] [id number] [place] [address] Dec, Onychomycosis due to dermatophyte B35.1 ; Moderate episode of recurrent major depressive disorder F33.1 ; Type 2 diabetes mellitus with diabetic neuropathy, unspecified E11.40 ; Falls frequently R29.6 ; Neuropathy G62.9 ; Dementia with behavioral disturbance, unspecified dementia type F03.91 ; Hypothyroidism (acquired) E03.9 and Left hand pain M79.642 [facility] [address] [place] [address] Dec, [place] [id number] [place] [address] Dec, Hypothyroidism (acquired) E03.9 [facility] [id number] [place] [address] Dec, 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 [facility] [id number] [place] [address] November, Hypothyroidism (acquired) E03.9 [facility] [id number] [place] [address] Oct, [place] [id number] [place] [address] Oct, 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 [id number] [place] [address] Sep, Open wound of right great toe, initial encounter S91.101A [facility] [id number] [place] [address] Sep, Breast mass, left N63 ; Non-insulin dependent type 2 diabetes mellitus E11.9 and Vascular dementia without behavioral disturbance F01.50 [facility] [id number] [place] [address] Sep, [facility] [id number] [place] [address] Jul, [place] [id number] [place] [address] Jul, Diabetes E11.9 ; Diaper dermatitis L22 ; Candidiasis of skin and nail B37.2 ; Neuropathy G62.9 ; Status post stroke Z86.73 ; Unsteadiness on feet R26.81 and 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 [place] [address] [address] May, [place] [address] [address] May, [place] [address] [address] May, [place] [address] [address] May, Dementia with behavioral disturbance, unspecified dementia type F03.91 [place] [address] [address] May, Dementia with behavioral disturbance, unspecified dementia type F03.91 ; Encounter for immunization Z23 and Diabetes E11.9 [place] [address] [address] May, [place] [address] [address] May, Neuropathy G62.9 [place] [address] [address] May, [place] [address] [address] Apr, Hypothyroidism (acquired) E03.9 [place] [address] [address] Apr, CVA (cerebral vascular accident) I63.9 ; Left hand weakness M62.81 and Neuropathy G62.9 [place] [address] [address] Apr, Hypokalemia E87.6 [place] [id number] [place] [address] Apr, Hypokalemia E87.6 [place] [id number] [place] [address] Mar, Diabetes E11.9 ; Edema, unspecified type R60.9 ; Anxiety disorder, unspecified F41.9 ; Pain in left knee M25.562 ; Other chronic pain G89.29 and Status post stroke Z86.73 [place] [address] [address] Mar, [place] [address] [address] Mar, [place] [address] [address] Mar, Neuropathy G62.9 [place] [address] [address] Feb, Anorexia R63.0 and Neuropathy G62.9 [place] [address] [address] Jan, Diabetes E11.9 ; Neuropathy G62.9 ; Panic attack F41.0 ; Pain in left knee M25.562 and Hypertension 401.9 [place] [id number] [place] [address] Jan, Weakness R53.1 ; Fatigue, unspecified type R53.83 ; Falling episodes R29.6 and Neuropathy G62.9 [place] [id number] [place] [address] Jan, Pain in left knee M25.562 [place] [address] [address] Jan, [place] [address] [place] [address] Jan, [facility] [id number] [place] [address] Jan, [facility] [id number] [place] [address] Dec, Diabetes E11.9 ; Neuropathy G62.9 and Dementia F03.90 [facility] [address] [address] Dec, [facility] [id number] [place] [address] Dec, Neuropathy G62.9 ; Diabetes E11.9 ; Anxiety F41.9 and Constipation, unspecified constipation type K59.00 [facility] [id number] [place] [address] Dec, [facility] [address] [address] Dec, Anxiety F41.9 [facility] [id number] [place] [address] November, [facility] [id number] [place] [address] November, Pain in left knee M25.562 ; Other chronic pain G89.29 ; Diabetes E11.9 and Left eye pain H57.12 [facility] [id number] [place] [address] November, [facility] [id number] [place] [address] November, Hearing loss, unspecified laterality H91.90 [facility] [id number] [place] [address] November, [facility] [id number] [place] [address] November, [facility] [address] [place] [address] November, Pain in right knee M25.561 [facility] [id number] [place] [address] November, [facility] [id number] [place] [address] Oct, [facility] [id number] [place] [address] Oct, [facility] [id number] [place] [address] Oct, Edema of left lower extremity R60.0 ; Diabetes E11.9 ; 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 I63.39 and Anxiety disorder, unspecified F41.9 [place] [id number] [place] [address] Oct, Panic attack F41.0 [facility] [id number] [place] [address] 14 Oct, 2015 [facility] [id number] [place] [address] Oct, CVA (cerebral vascular accident) I63.9 [facility] [id number] [place] [address] Oct, [facility] [id number] [place] [address] Oct, Diabetes E11.9 ; Hypertension I10 and Dementia F03.90 [facility] [id number] [place] [address] Sep, [facility] [id number] [place] [address] Sep, [facility] [address] [place] [address] Sep, Diabetes E11.9 ; 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 ; Onychomycosis B35.1 and Fatigue R53.83 [facility] [id number] [place] [address] Aug, [facility] [id number] [place] [address] Aug, [facility] [id number] [place] [address] Jul, [facility] [id number] [place] [address] Jul, [facility] [id number] [place] [address] Jun, 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 [place] [address] [place] [address] Jun, Anxiety disorder, unspecified F41.9 and Major depressive disorder, single episode, moderate F32.1 [facility] [id number] [place] [address] Jun, [facility] [id number] [place] [address] Jun, [facility] [id number] [place] [address] May, Left knee pain M25.562 [facility] [id number] [place] [address] May, [facility] [id number] [place] [address] May, [facility] [id number] [place] [address] May, [facility] [id number] [place] [address] May, Hypertension I10 ; Diabetes E11.9 and Depression F32.9 [facility] [address] [place] [address] May, [facility] [id number] [place] [address] Apr, Left knee pain M25.562 ; Type 2 diabetes mellitus with complication E11.8 and Encounter for immunization Z23 [facility] [id number] [place] [address] Apr, [facility] [id number] [place] [address] Apr, [facility] [id number] [place] [address] Mar, [facility] [id number] [place] [address] Mar, Silvestre stanley 727.51 [facility] [id number] [place] [address] Mar, [facility] [id number] [place] [address] Mar, [facility] [id number] [place] [address] Mar, [facility] [id number] [place] [address] Feb, [facility] [id number] [place] [address] Feb, [facility] [id number] [place] [address] Feb, Hypertension 401.9 and Diabetes 250.00 [facility] [id number] [place] [address] Jan, [facility] [id number] [place] [address] Jan, Diabetes 250.00 [facility] [id number] [place] [address] Jan, [facility] [address], [place] [address] Jan, [facility] [id number] [place] [address] Dec, Diabetes 250.00 and Forgetfulness 780.99 [facility] [id number] [place] [address] Dec, [facility] [id number] [place] [address] Dec, Diabetes mellitus 250.00 [facility] [id number] [place] [address] Dec, [facility] [address] [address] Dec, [facility] [id number] [place] [address] Dec, [facility] [address], [place] [address] Dec, Diabetes 250.00 and Dysthymia 300.4 [facility] [address], [place] [address] Dec, [facility] [address], [place] [address] Dec, Grief 309.0 and Diabetes mellitus 250.00 [facility] [address], [place] [address] Oct, [facility] [address], [place] [address] Oct, [facility] [address], [place] [address] Jul, [facility] [address], [place] [address] Jul, [facility] [place] [facility] [address] [id number] [place] [address] Jul, [facility] [place] [facility] [address] [id number] [place] [address] Jul, [facility] [place] [facility] [address] [id number] [place] [address] Jul, [facility] [place] [facility] [address] [id number] [place] [address] May, [facility] [place] [facility] [address] [id number] [place] [address] May, [facility] [place] [facility] [address] [id number] [place] [address] Apr, [facility] [place] [facility] [address] [id number] [place] [address] Apr, [facility] [place] [facility] [address] [id number] [place] [address] Mar, [facility] [place] [facility] [address] [id number] [place] [address] Mar, [facility] [place] [facility] [address] [id number] [place] [address] Feb, [facility] [place] [facility] [address] [id number] [place] [address] Feb, [facility] [place] [facility] [address] [id number] [place] [address] Feb, [facility] [place] [facility] [address] [id number] [place] [address] Feb, [facility] [place] [facility] [address] [id number] [place] [address] Feb, [facility] [place] [facility] [address] [id number] [place] [address] Feb, [facility] [place] [facility] [address] [id number] [place] [address] November, [facility] [place] [facility] [address] [id number] [place] [address] November, [facility] [place] [facility] [address] [id number] [place] [address] Sep, [facility] [place] [facility] [address] [id number] [place] [address] Sep, [facility] [place] [facility] [address] [id number] [place] [address] Sep, [facility] [place] [facility] [address] [id number] [place] [address] Sep, [facility] [place] [facility] [address] [id number] [place] [address] Sep, [facility] [place] [facility] [address] [id number] [place] [address] Sep, [facility] [place] [facility] [address] [id number] [place] [address] Sep, [facility] [place] [facility] [address] [id number] [place] [address] Sep, [facility] [place] [facility] [address] [id number] [place] [address] Aug, [facility] [place] [facility] [address] [id number] [place] [address] Aug, [facility] [place] [facility] [address] [id number] [place] [address] Jul, [facility] [place] [facility] [address] [id number] [place] [address] Jul, [facility] [place] [facility] [address] [id number] [place] [address] Jul, [facility] [place] [facility] [address] [id number] [place] [address] Jul, [facility] [place] [facility] [address] [id number] [place] [address] Jun, [facility] [address] [id number] [place] [address] Jun, [facility] [place] [facility] [address] [id number] [place] [address] May, [facility] [address] [id number] [place] [address] May, [facility] [place] [facility] [address] [id number] [place] [address] May, [facility] [address] [id number] [place] [address] May, [facility] [place] [facility] [address] [id number] [place] [address] May, [facility] [place] [facility] [address] [id number] [place] [address] May, [facility] [address] [id number] [place] [address] Apr, [facility] [place] [facility] [address] [id number] [place] [address] Apr, [facility] [address] [id number] [place] [address] Apr, [facility] [place] [facility] [address] [id number] [place] [address] Apr, [facility] [place] [facility] [address] [id number] [place] [address] Mar, [facility] [place] [facility] [address] [id number] [place] [address] Mar, [facility] [place] [facility] [address] [id number] [place] [address] Jan, [facility] [place] [facility] [address] [id number] [place] [address] Jan, [facility] [address] [id number] [place] [address] Jan, [facility] [place] [facility] [address] [id number] [place] [address] November, [facility] [address] [id number] [place] [address] November, [facility] [place] [facility] [address] [id number] [place] [address] November, [facility] [address] [id number] [place] [address] November, [facility] [place] [facility] [address] [id number] [place] [address] Aug, [facility] [place] [facility] [address] [id number] [place] [address] Jul, [facility] [place] [facility] [address] [id number] [place] [address] Jul, [facility] [place] [facility] [address] [id number] [place] [address] Jul, [facility] [place] [facility] [address] [id number] [place] [address] Jun, [facility] [place] [facility] [address] [id number] [place] [address] Jun, [facility] [place] [facility] [address] [id number] [place] [address] May, [facility] [place] [facility] [address] [id number] [place] [address] May, [facility] [place] [facility] [address] [id number] [place] [address] Apr, [facility] [place] [facility] [address] [id number] [place] [address] Apr, [facility] [place] [facility] [address] [id number] [place] [address] Apr, [facility] [place] [facility] [address] [id number] [place] [address] Apr, [facility] [place] [facility] [address] [id number] [place] [address] Apr, [facility] [place] [facility] [address] [id number] [place] [address] Apr, [facility] [place] [facility] [address] [id number] [place] [address] Apr, [facility] [place] [facility] [address] [id number] [place] [address] Apr, [facility] [place] [facility] [address] [id number] [place] [address] Apr, [facility] [place] [facility] [address] [id number] [place] [address] Mar, [facility] [place] [facility] [address] [id number] [place] [address] Feb, [facility] [place] [facility] [address] [id number] [place] [address] November, [facility] [place] [facility] [address] [id number] [place] [address] November, [facility] [place] [facility] [address] [id number] [place] [address] November, [facility] [place] [facility] [address] [id number] [place] [address] November, [facility] [place] [facility] [address] [id number] [place] [address] Jun, [facility] [place] [facility] [address] [id number] [place] [address] Jun, [facility] [place] [facility] [address] [id number] [place] [address] May, [facility] [place] [facility] [address] [id number] [address] May, [facility] [address] [id number] [address] Apr, [facility] [address] [facility] [id number] [address] Apr, [facility] [id number], [place] [address] May, [facility] [id number], [place] [address] Apr, [facility] [id number], [place] [address] Apr, [facility] [id number], [place] [address] Apr, [facility] [id number] [place] [address] Apr, IMMUNIZATIONS No Known Immunizations SOCIAL HISTORY [...] Hospitalization History Post Stroke pt went to [facility] and then [facility] 10/15/15 Hospitalization History Hypotension, Wander ateral leg weakness--Via [facility] 01/15/16 Hospitalization History hypertension/chest pain 03/2017
--- OUTSIDE RECORDS SUMMARY | 2023-03-21 11:29 | XMS REPORT ---
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 Role Phone Migration, Doctor Unavailable Unavailable PROBLEMS Type Condition ICD9-CM Code [id number] Code Onset Dates Condition Status SNOMED Code Problem Panic attack F41.0 Active 660829734 Problem Hypertension I10 Active 05035910 Problem Anxiety F41.9 Active 90185222 Problem Other chronic pain G89.29 Active 43647 001 Problem Dementia with behavioral disturbance, unspecified dementia type F03.91 Active 1479930104696 Problem Hypothyroidism (acquired) E03.9 Active 163451363 Problem Vascular dementia without behavioral disturbance F01.50 Active 148434726 Problem 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 Active 979501154116 Problem Falls frequently R29.6 Active 5133619 02 Problem Type 2 diabetes mellitus with diabetic neuropathy, unspecified E11.40 Active 74576643 Problem Moderate episode of recurrent major depressive disorder F33.1 Active 54381774 1 Problem Cardiomegaly I51.7 Active 2200982 Problem 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 Active 818415202 Problem Diabetes E11.9 Active 026105278 Problem 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 Active 75000405 Problem History of cerebrovascular accident with hemiparesis or hemiplegia Z86.73 Active 448154394 Problem Bilateral hearing loss, unspecified hearing loss type H91.93 Active 54320520 Problem SNHL (sensory-neural hearing loss), 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.39 ; Type 2 diabetes mellitus with diabetic neuropathy, unspecified E11.40 ; Hypertension I10 and Physical debility R53.81 [facility] [id number] [place] [address] May, [facility] [address] [place] [address] Apr, [facility] [id number] [place] [address] Mar, Type 2 diabetes mellitus with diabetic neuropathy, unspecified E11.40 ; Hypertension I10 ; Diabetes E11.9 ; Dementia with behavioral disturbance, unspecified dementia type F03.91 ; Type 2 diabetes mellitus with complication, without long-term current use of insulin E11.8 and Neck pain M54.2 [facility] [address] [address] Mar, Dysuria R30.[address] [id number] [address] Feb, [facility] [id number] [address] Feb, [facility] [address] [address] Jan, [facility] [id number] [address] Dec, [facility] [address] [address] Dec, [facility] [id number] [place] [address] Dec, [facility] [id number] [place] [address] November, Dental examination Z01.20 and Periodontitis K05.30 [facility] [id number] [place] [address] November, [facility] [id number] [place] [address] November, [address] [facility] [address] [address] Oct, Encounter for Medicare annual wellness exam [...] hearing loss, unspecified hearing loss type H91.93 [facility] [id number] [place] [address] Oct, [facility] [id number] [place] [address] Oct, [facility] [id number] [place] [address] Sep, [facility] [id number] [place] [address] Aug, Anxiety F41.9 [facility] [id number] [place] [address] Aug, Encounter for immunization Z23 [facility] [id number] [place] [address] Jul, History of cerebrovascular accident with hemiparesis or hemiplegia Z86.73 ; Dementia with behavioral disturbance, unspecified dementia type F03.91 ; Hypothyroidism (acquired) E03.9 ; Type 2 diabetes mellitus with diabetic neuropathy, unspecified E11.40 and 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 [facility] [id number] [place] [address] Jul, [facility] [address] [address] Jul, Type 2 diabetes mellitus with diabetic neuropathy, unspecified E11.40 ; Anxiety F41.9 ; Vascular dementia without behavioral disturbance F01.50 ; Moderate episode of recurrent major depressive disorder F33.1 ; Onychomycosis of great toe B35.1 ; 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 and Type 2 diabetes mellitus with complication, without long-term current use of insulin E11.8 [facility] [address] [address] Jun, Hypertension I10 ; Anxiety F41.9 ; Dementia with behavioral disturbance, unspecified dementia type F03.91 ; 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 ; Moderate episode of recurrent major depressive disorder F33.1 ; Encounter for immunization Z23 ; Skin lesion of left leg L98.9 ; BMI 28.0-28.9,adult Z68.28 and Other chronic pain G89.29 [facility] [id number] [place] [address] May, Lymphadenopathy, axillary R59.0 [facility] [id number] [place] [address] May, [facility] [address] [address] Apr, [facility] [id number] [place] [address] Apr, [facility] [address] [address] Apr, [facility] [address] [place] [address] Apr, [facility] [id number] [place] [address] Mar, Anxiety F41.9 ; Moderate episode of recurrent major depressive disorder F33.1 and Dementia with behavioral disturbance, unspecified dementia type F03.91 [facility] [id number] [place] [address] Mar, [facility] [id number] [place] [address] Mar, Diabetes E11.9 ; Hypothyroidism (acquired) E03.9 ; Hypertension I10 and Type 2 diabetes mellitus with diabetic neuropathy, unspecified E11.40 [facility] [id number] [place] [address] Jan, [facility] [id number] [place] [address] Dec, Anxiety F41.9 and Moderate episode of recurrent major depressive disorder F33.1 [facility] [address] [place] [address] November, [facility] [address] [place] [address] November, Chronic cough R05 and Cardiomegaly I51.7 [facility] [address] [place] [address] Oct, Medicare annual wellness visit, initial Z00.00 [...] seizures R56.1 and Encounter for immunization Z23 [facility] [id number] [place] [address] Sep, [facility] [id number] [place] [address] Jul, [facility] [id number] [place] [address] Jul, [facility] [address] [address] Jun, Anxiety F41.9 and Moderate episode of recurrent major depressive disorder F33.1 [facility] [address] [address] Jun, Bronchitis J40 and Bilateral hearing loss, unspecified hearing loss type H91.93 [facility] [address] [address] Jun, [facility] [id number] [place] [address] Apr, [facility] [address] [address] Apr, Encounter for immunization Z23 and Left breast mass N63.20 [facility] [id number] [place] [address] Apr, [facility] [id number] [place] [address] Mar, CVA (cerebral vascular accident) I63.9 ; Hypertension I10 ; 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 ; Type 2 diabetes mellitus with diabetic neuropathy, unspecified E11.40 and Left breast mass N63 [facility] [id number] [place] [address] Mar, Mild episode of recurrent major depressive disorder F33.0 and Anxiety F41.9 [facility] [id number] [place] [address] Mar, Breast mass, left N63 [facility] [id number] [place] [address] Mar, Breast mass, left N63 [facility] [address] [address] Feb, [facility] [id number] [place] [address] Feb, [facility] [address] [place] [address] Feb, [facility] [id number] [place] [address] Feb, [facility] [id number] [place] [address] Feb, Onychomycosis B35.1 and Type 2 diabetes mellitus with complication E11.8 [facility] [id number] [place] [address] Jan, Mild episode of recurrent major depressive disorder F33.0 and Anxiety F41.9 [facility] [id number] [place] [address] Jan, [facility] [address] [place] [address] Dec, Onychomycosis due to dermatophyte B35.1 ; Moderate episode of recurrent major depressive disorder F33.1 ; Type 2 diabetes mellitus with diabetic neuropathy, unspecified E11.40 ; Falls frequently R29.6 ; Neuropathy G62.9 ; Dementia with behavioral disturbance, unspecified dementia type F03.91 ; Hypothyroidism (acquired) E03.9 and Left hand pain M79.642 [facility] [address] [address] Dec, [facility] [address] [place] [address] Dec, Hypothyroidism (acquired) E03.9 [facility] [id number] [place] [address] Dec, 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 [facility] [id number] [place] [address] November, Hypothyroidism (acquired) E03.9 [facility] [id number] [place] [address] Oct, [facility] [id number] [place] [address] Oct, 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 complication E11.39 [facility] [id number] [place] [address] Oct, [facility] [id number] [place] [address] Oct, Dysuria R30.0 ; 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 ; Bilateral hearing loss, unspecified hearing loss type H91.93 and 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 [facility] [id number] [place] [address] Sep, [facility] [id number] [place] [address] Sep, Open wound of right great toe, initial encounter S91.101A [facility] [id number] [place] [address] Sep, Breast mass, left N63 ; Non-insulin dependent type 2 diabetes mellitus E11.9 and Vascular dementia without behavioral disturbance F01.50 [facility] [id number] [place] [address] Sep, [facility] [id number] [place] [address] Jul, [facility] [id number] [place] [address] Jul, Diabetes E11.9 ; Diaper dermatitis L22 ; Candidiasis of skin and nail B37.2 ; Neuropathy G62.9 ; Status post stroke Z86.73 ; Unsteadiness on feet R26.81 and 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 [facility] [id number] [place] [address] May, [address] [facility] [address] May, [address] [facility] [address] [address] May, [address] [address] [address] May, Dementia with behavioral disturbance, unspecified dementia type F03.91 [facility] [address] [address] May, Dementia with behavioral disturbance, unspecified dementia type F03.91 ; Encounter for immunization Z23 and Diabetes E11.9 [facility] [address] [address] May, [address] [address] [address] May, Neuropathy G62.9 [facility] [address] [address] May, [facility] [address] [address] Apr, Hypothyroidism (acquired) E03.9 [facility] [address] [address] Apr, CVA (cerebral vascular accident) I63.9 ; Left hand weakness M62.81 and Neuropathy G62.9 [facility] [address] [address] Apr, Hypokalemia E87.6 [facility] [id number] [place] [address] Apr, Hypokalemia E87.6 [facility] [id number] [place] [address] Mar, Diabetes E11.9 ; Edema, unspecified type R60.9 ; Anxiety disorder, unspecified F41.9 ; Pain in left knee M25.562 ; Other chronic pain G89.29 and Status post stroke Z86.73 [facility] [id number] [place] [address] Mar, [facility] [address] [address] Mar, [facility] [id number] [place] [address] Mar, Neuropathy G62.9 [facility] [address] [address] Feb, Anorexia R63.0 and Neuropathy G62.9 [facility] [id number] [place] [address] Jan, Diabetes E11.9 ; Neuropathy G62.9 ; Panic attack F41.0 ; Pain in left knee M25.562 and Hypertension 401.9 [facility] [id number] [place] [address] Jan, Weakness R53.1 ; Fatigue, unspecified type R53.83 ; Falling episodes R29.6 and Neuropathy G62.9 [facility] [id number] [place] [address] Jan, Pain in left knee M25.562 [facility] [id number] [place] [address] Jan, [facility] [id number] [place] [address] Jan, [facility] [id number] [place] [address] Jan, [facility] [id number] [place] [address] Dec, Diabetes E11.9 ; Neuropathy G62.9 and Dementia F03.90 [facility] [id number] [place] [address] Dec, [facility] [address] [address] Dec, Neuropathy G62.9 ; Diabetes E11.9 ; Anxiety F41.9 and Constipation, unspecified constipation type K59.00 [facility] [id number] [place] [address] Dec, [facility] [id number] [place] [address] Dec, Anxiety F41.9 [facility] [id number] [place] [address] November, [facility] [id number] [place] [address] November, Pain in left knee M25.562 ; Other chronic pain G89.29 ; Diabetes E11.9 and Left eye pain H57.12 [facility] [id number] [place] [address] November, [facility] [id number] [place] [address] November, Hearing loss, unspecified laterality H91.90 [facility] [id number] [place] [address] November, [facility] [id number] [place] [address] November, [facility] [id number] [place] [address] November, Pain in right knee M25.561 [facility] [id number] [place] [address] November, [facility] [id number] [place] [address] Oct, [facility] [id number] [place] [address] Oct, [facility] [id number] [place] [address] Oct, Edema of left lower extremity R60.0 ; Diabetes E11.9 ; 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 I63.39 and Anxiety disorder, unspecified F41.9 [facility] [id number] [place] [address] Oct, Panic attack F41.0 [facility] [address] [address] 14 Oct, 2015 [facility] [id number] [place] [address] Oct, CVA (cerebral vascular accident) I63.9 [facility] [id number] [place] [address] Oct, [facility] [id number] [place] [address] Oct, Diabetes E11.9 ; Hypertension I10 and Dementia F03.90 [facility] [id number] [place] [address] 30 Sep, 2015 [facility] [id number] [place] [address] Sep, [facility] [id number] [place] [address] Sep, Diabetes E11.9 ; 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 ; Onychomycosis B35.1 and Fatigue R53.83 [facility] [id number] [place] [address] Aug, [facility] [id number] [place] [address] Aug, [facility] [id number] [place] [address] Jul, [facility] [id number] [place] [address] Jul, [facility] [id number] [place] [address] Jun, 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 [facility] [id number] [place] [address] Jun, Anxiety disorder, unspecified F41.9 and Major depressive disorder, single episode, moderate F32.1 [facility] [id number] [place] [address] Jun, [facility] [id number] [place] [address] Jun, [facility] [id number] [place] [address] May, Left knee pain M25.562 [facility] [id number] [place] [address] May, [facility] [id number] [place] [address] May, [facility] [id number] [place] [address] May, [facility] [id number] [place] [address] May, Hypertension I10 ; Diabetes E11.9 and Depression F32.9 [facility] [id number] [place] [address] May, [facility] [address] [address] Apr, Left knee pain M25.562 ; Type 2 diabetes mellitus with complication E11.8 and Encounter for immunization Z23 [facility] [address] [address] Apr, [facility] [id number] [place] [address] Apr, [facility] [id number] [place] [address] Mar, [facility] [id number] [place] [address] Mar, Silvestre stanley 727.51 [facility] [id number] [place] [address] Mar, [facility] [id number] [place] [address] Mar, [facility] [id number] [place] [address] Mar, [facility] [id number] [place] [address] Feb, [facility] [address] [address] Feb, [facility] [id number] [place] [address] Feb, Hypertension 401.9 and Diabetes 250.00 [facility] [address] [address] Jan, [facility] [id number] [place] [address] Jan, Diabetes 250.00 [facility] [address] [address] Jan, [facility] [id number] [address] Jan, [facility] [address] [address] Dec, Diabetes 250.00 and Forgetfulness 780.99 [facility] [address] [address] Dec, [facility] [id number] [place] [address] Dec, Diabetes mellitus 250.00 [facility] [id number] [place] [address] Dec, [facility] [id number] [place] [id number] Dec, [facility] [id number] [place] [id number] Dec, [facility] [id number] [place] [address] Dec, Diabetes 250.00 and Dysthymia 300.4 [facility] [id number] [address] Dec, [facility] [id number] [address] Dec, Grief 309.0 and Diabetes mellitus 250.00 [facility] [id number] [address] Oct, [facility] [id number] [address] Oct, [facility] [id number] [address] Jul, [facility] [id number] [address] Jul, [facility] [id number] [address] Jul, [facility] [place] [facility] [address] [id number] [place] [address] Jul, [facility] [place] [facility] [address] [id number] [place] [address] Jul, [facility] [place] [facility] [address] [id number] [place] [address] May, [facility] [place] [facility] [address] [id number] [place] [address] May, [facility] [place] [facility] [address] [id number] [place] [address] Apr, [facility] [place] [facility] [address] [id number] [place] [address] Apr, [facility] [place] [facility] [address] [id number] [place] [address] Mar, [facility] [place] [facility] [address] [id number] [place] [address] Mar, [facility] [place] [facility] [address] [id number] [place] [address] Feb, [facility] [place] [facility] [address] [id number] [place] [address] Feb, [facility] [place] [facility] [address] [id number] [place] [address] Feb, [facility] [place] [facility] [address] [id number] [place] [address] Feb, [facility] [place] [facility] [address] [id number] [place] [address] Feb, [facility] [place] [facility] [address] [id number] [place] [address] Feb, [facility] [place] [facility] [address] [id number] [place] [address] November, [facility] [place] [facility] [address] [id number] [place] [address] November, [facility] [place] [facility] [address] [id number] [place] [address] Sep, [facility] [place] [facility] [address] [id number] [place] [address] Sep, [facility] [place] [facility] [address] [id number] [place] [address] Sep, [facility] [place] [facility] [address] [id number] [place] [address] Sep, [facility] [place] [facility] [address] [id number] [place] [address] Sep, [facility] [place] [facility] [address] [id number] [place] [address] Sep, [facility] [place] [facility] [address] [id number] [place] [address] Sep, [facility] [place] [facility] [address] [id number] [place] [address] Sep, [facility] [place] [facility] [address] [id number] [place] [address] Aug, [facility] [place] [facility] [address] [id number] [place] [address] Aug, [facility] [place] [facility] [address] [id number] [place] [address] Jul, [facility] [place] [facility] [address] [id number] [place] [address] Jul, [facility] [place] [facility] [address] [id number] [place] [address] Jul, [facility] [place] [facility] [address] [id number] [place] [address] Jul, [facility] [place] [facility] [address] [id number], [place] [address] Jun, [facility] [place] [facility] [address] [id number] [place] [address] Jun, [facility] [place] [facility] [address] [id number] [place] [address] May, [facility] [place] [facility] [address] [id number] [place] [address] May, [facility] [place] [facility] [address] [id number] [place] [address] May, [facility] [place] [facility] [address] [id number] [place] [address] May, [facility] [place] [facility] [address] [id number] [place] [address] May, [facility] [place] [facility] [address] [id number] [place] [address] May, [facility] [place] [facility] [address] [id number] [place] [address] Apr, [facility] [place] [facility] [address] [id number] [place] [address] Apr, [facility] [place] [facility] [address] [id number] [place] [address] Apr, [facility] [place] [facility] [address] [id number] [place] [address] Apr, [facility] [place] [facility] [address] [id number] [place] [address] Mar, [facility] [place] [facility] [address] [id number] [place] [address] Mar, [facility] [place] [facility] [address] [id number] [place] [address] Jan, [facility] [place] [facility] [address] [id number] [place] [address] 17 Jan, 2013 [facility] [place] [facility] [address] [id number] [place] [address] Jan, [facility] [address] [id number] [place] [address] November, [facility] [place] [facility] [address] [id number] [place] [address] November, [facility] [place] [facility] [address] [id number] [place] [address] November, [facility] [place] [facility] [address] [id number] [place] [address] November, [facility] [address] [id number] [place] [address] Aug, [facility] [place] [facility] [address] [id number] [place] [address] Jul, [facility] [place] [facility] [address] [id number] [place] [address] Jul, [facility] [place] [facility] [address] [id number] [place] [address] Jul, [facility] [address] [id number] [place] [address] Jun, [facility] [place] [facility] [address] [id number] [place] [address] Jun, [facility] [place] [facility] [address] [id number] [place] [address] May, [facility] [place] [facility] [address] [id number] [place] [address] May, [facility] [place] [facility] [address] [id number] [place] [address] Apr, [facility] [place] [facility] [address] [id number] [place] [address] Apr, [facility] [place] [facility] [address] [id number] [place] [address] Apr, [facility] [place] [facility] [address] [id number] [place] [address] Apr, [facility] [address] [id number] [place] [address] Apr, [facility] [place] [facility] [address] [id number] [place] [address] Apr, [facility] [address] [id number] [place] [address] Apr, [facility] [place] [facility] [address] [id number] [place] [address] Apr, [facility] [address] [id number] [place] [address] Apr, [facility] [place] [facility] [address] [id number] [place] [address] Mar, [facility] [place] [facility] [address] [id number] [place] [address] Feb, [facility] [address] [id number] [place] [address] November, [facility] [place] [facility] [address] [id number] [place] [address] November, [facility] [address] [id number] [place] [address] November, [facility] [place] [facility] [address] [id number] [place] [address] November, [facility] [address] [id number] [place] [address] Jun, [facility] [place] [facility] [address] [id number] [place] [address] Jun, [facility] [place] [facility] [address] [id number] [place] [address] May, [facility] [place] [facility] [address] [id number] [place] [address] May, [facility] [address] [facility] [id number], [place] [address] Apr, [facility] [address] [facility] [id number], [place] [address] Apr, [facility] [address] [facility] [id number], [place] [address] May, [facility] [address] [id number], [place] [address] Apr, [facility] [address] [facility] [id number], [place] [address] Apr, [facility] [address] [facility] [id number], [place] [address] Apr, [facility] [address] [facility] [id number], [place] [address] Apr, IMMUNIZATIONS No Known Immunizations SOCIAL HISTORY Never Assessed REASON FOR VISIT PLAN OF CARE VITAL SIGNS MEDICATIONS Unknown Medications RESULTS No Results PROCEDURES Procedure Date Ordered Result Body Site COMPLETE CBC W/AUTO DIFF WBC December 10, 2011 NATRIURETIC PEPTIDE December 10, 2011 LIPID PANEL December 10, 2011 COMPREHEN METABOLIC PANEL December 10, 2011 VENIPUNCT, ROUTINE* December 10, 2011 INSTRUCTIONS MEDICATIONS ADMINISTERED No Known Medications MEDICAL [...] History Post Stroke pt went to [facility] and then [facility] 10/15/15 Hospitalization History Hypotension, Wander ateral leg weakness--Via [facility] 01/15/16 Hospitalization History hypertension/chest pain 03/2017
--- OUTSIDE RECORDS SUMMARY | 2023-03-21 11:29 | XMS REPORT ---
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 Name Role Phone OMI SIMMONS Unavailable PROBLEMS Type Condition ICD9-CM Code [id number] Code Onset Dates Condition Status SNOMED Code Problem Panic attack F41.0 Active 350245854 Problem Hypertension I10 Active 26451571 Problem Anxiety F41.9 Active 82550536 Problem Other chronic pain G89.29 Active 04554 001 Problem Dementia with behavioral disturbance, unspecified dementia type F03.91 Active 1472244004694 Problem Hypothyroidism (acquired) E03.9 Active 069152664 Problem Vascular dementia without behavioral disturbance F01.50 Active 646070377 Problem 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 Active 052023940207 Problem Falls frequently R29.6 Active 3034408 02 Problem Type 2 diabetes mellitus with diabetic neuropathy, unspecified E11.40 Active 90516125 Problem Moderate episode of recurrent major depressive disorder F33.1 Active 91782504 1 Problem Cardiomegaly I51.7 Active 9377484 Problem 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 Active 885336477 Problem Diabetes E11.9 Active 084914327 Problem 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 Active 49389329 Problem History of cerebrovascular accident with hemiparesis or hemiplegia Z86.73 Active 467140675 Problem Bilateral hearing loss, unspecified hearing loss type H91.93 Active 86314646 Problem SNHL (sensory-neural hearing loss), 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 Active 208095445 Problem Left-sided muscle weakness M62.81 Active 386814043 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 64992847 ALLERGIES No Information ENCOUNTERS Encounter Location Date Diagnosis [facility] [address] [facility] [id number] [address] Aug, [facility] [id number] [address] Aug, [facility] [address] [address] Aug, [facility] [address] [address] Jul, 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.39 ; Type 2 diabetes mellitus with diabetic neuropathy, unspecified E11.40 ; Hypertension I10 and Physical debility R53.81 [facility] [address] [address] May, [facility] [address] [place] [address] Apr, [facility] [address] [address] Mar, Type 2 diabetes mellitus with diabetic neuropathy, unspecified E11.40 ; Hypertension I10 ; Diabetes E11.9 ; Dementia with behavioral disturbance, unspecified dementia type F03.91 ; Type 2 diabetes mellitus with complication, without long-term current use of insulin E11.8 and Neck pain M54.2 [facility] [address] [address] 16 Mar, 2019 D[address] [id number] [address] Feb, [facility] [address] [address] Feb, [facility] [address] [address] Jan, [facility] [address], [place] [address] Dec, [facility] [address] [address] Dec, [facility] [address] [place] [address] Dec, [facility] [address] [place] [address] November, Dental examination Z01.20 and Periodontitis K05.30 [facility] [id number] [place] [address] November, [place] [id number] [place] [address] November, [facility] [id number] [place] [address] Oct, Encounter for Medicare annual wellness exam [...] hearing loss, unspecified hearing loss type H91.93 [facility] [id number] [place] [address] Oct, [facility] [id number] [place] [address] Oct, [facility] [place] [id number] [place] [address] Sep, [facility] [id number] [place] [address] Aug, Anxiety F41.9 [facility] [id number] [place] [address] Aug, Encounter for immunization Z23 [facility] [id number] [place] [address] Jul, History of cerebrovascular accident with hemiparesis or hemiplegia Z86.73 ; Dementia with behavioral disturbance, unspecified dementia type F03.91 ; Hypothyroidism (acquired) E03.9 ; Type 2 diabetes mellitus with diabetic neuropathy, unspecified E11.40 and 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.39 [place] [id number] [place] [address] Jul, [facility] [address] [address] Jul, Type 2 diabetes mellitus with diabetic neuropathy, unspecified E11.40 ; Anxiety F41.9 ; Vascular dementia without behavioral disturbance F01.50 ; Moderate episode of recurrent major depressive disorder F33.1 ; Onychomycosis of great toe B35.1 ; 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 and Type 2 diabetes mellitus with complication, without long-term current use of insulin E11.8 [place] [address] [address] Jun, Hypertension I10 ; Anxiety F41.9 ; Dementia with behavioral disturbance, unspecified dementia type F03.91 ; 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 ; Moderate episode of recurrent major depressive disorder F33.1 ; Encounter for immunization Z23 ; Skin lesion of left leg L98.9 ; BMI 28.0-28.9,adult Z68.28 and Other chronic pain G89.29 [facility] [facility] [id number] [place] [address] May, Lymphadenopathy, axillary R59.0 [facility] [id number] [place] [address] May, [facility] [address] [address] Apr, [facility] [address] [address] Apr, [facility] [place] [id number] [place] [address] Apr, [place] [address] [address] Apr, [place] [address] [place] [address] Mar, Anxiety F41.9 ; Moderate episode of recurrent major depressive disorder F33.1 and Dementia with behavioral disturbance, unspecified dementia type F03.91 [facility] [id number] [place] [address] Mar, [place] [address] [address] Mar, Diabetes E11.9 ; Hypothyroidism (acquired) E03.9 ; Hypertension I10 and Type 2 diabetes mellitus with diabetic neuropathy, unspecified E11.40 [place] [address] [address] Jan, [place] [address] [address] Dec, Anxiety F41.9 and Moderate episode of recurrent major depressive disorder F33.1 [facility] [id number] [place] [address] November, [place] [address] [address] November, Chronic cough R05 and Cardiomegaly I51.7 [facility] [id number] [place] [address] Oct, Medicare annual wellness visit, initial Z00.00 [...] seizures R56.1 and Encounter for immunization Z23 [place] [id number] [place] [address] Sep, [facility] [id number] [place] [address] Jul, [facility] [place] [id number] [place] [address] Jul, [facility] [place] [id number] [place] [address] Jun, Anxiety F41.9 and Moderate episode of recurrent major depressive disorder F33.1 [facility] [id number] [place] [address] Jun, Bronchitis J40 and Bilateral hearing loss, unspecified hearing loss type H91.93 [facility] [id number] [place] [address] Jun, [facility] [id number] [place] [address] Apr, [place] [id number] [place] [address] Apr, Encounter for immunization Z23 and Left breast mass N63.20 [facility] [id number] [place] [address] 16 Apr, 2017 [place] [id number] [place] [address] 27 Mar, 2017 CVA (cerebral vascular accident) I63.9 ; Hypertension I10 ; Non 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.39 ; Type 2 diabetes mellitus with diabetic neuropathy, unspecified E11.40 and Left breast mass N63 [place] [id number] [place] [address] 27 Mar, 2017 Mild episode of recurrent major depressive disorder F33.0 and Anxiety F41.9 [place] [address] [place] [address] Mar, Breast mass, left N63 [place] [id number] [place] [address] Mar, Breast mass, left N63 [facility] [address], [place] [address] Feb, [facility] [address] [place] [address] Feb, [facility] [address] [place] [address] Feb, [facility] [id number] [place] [address] Feb, [place] [id number] [place] [address] Feb, Onychomycosis B35.1 and Type 2 diabetes mellitus with complication E11.8 [place] [address] [place] [address] Jan, Mild episode of recurrent major depressive disorder F33.0 and Anxiety F41.9 [place] [address] [place] [address] Jan, [place] [id number] [place] [address] Dec, Onychomycosis due to dermatophyte B35.1 ; Moderate episode of recurrent major depressive disorder F33.1 ; Type 2 diabetes mellitus with diabetic neuropathy, unspecified E11.40 ; Falls frequently R29.6 ; Neuropathy G62.9 ; Dementia with behavioral disturbance, unspecified dementia type F03.91 ; Hypothyroidism (acquired) E03.9 and Left hand pain M79.642 [place] [address], [place] [address] Dec, [place] [address] [place] [address] Dec, Hypothyroidism (acquired) E03.9 [place] [address] [place] [address] Dec, 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.39 [facility] [id number] [place] [address] November, Hypothyroidism (acquired) E03.9 [facility] [id number] [place] [address] Oct, [place] [address] [address] Oct, 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.39 [place] [id number] [place] [address] Oct, [place] [address] [address] Oct, Dysuria R30.0 ; Non insulin dependent diabetes mellitus with ophthalmic complication E11.39 ; Bilateral hearing loss, unspecified hearing loss type H91.93 and 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 [place] [id number] [place] [address] Sep, [facility] [id number] [place] [address] Sep, Open wound of right great toe, initial encounter S91.101A [place] [id number] [place] [address] Sep, Breast mass, left N63 ; Non-insulin dependent type 2 diabetes mellitus E11.9 and Vascular dementia without behavioral disturbance F01.50 [place] [id number] [place] [address] Sep, [place] [address] [address] Jul, [facility] [id number] [place] [address] Jul, Diabetes E11.9 ; Diaper dermatitis L22 ; Candidiasis of skin and nail B37.2 ; Neuropathy G62.9 ; Status post stroke Z86.73 ; Unsteadiness on feet R26.81 and 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 [place] [id number] [place] [address] May, [place] [id number] [place] [address] May, [place] [address] [address] May, [place] [address] [address] May, Dementia with behavioral disturbance, unspecified dementia type F03.91 [place] [address] [address] May, Dementia with behavioral disturbance, unspecified dementia type F03.91 ; Encounter for immunization Z23 and Diabetes E11.9 [place] [address] [address] May, [place] [address] [address] May, Neuropathy G62.9 [place] [address] [address] May, [place] [address] [address] Apr, Hypothyroidism (acquired) E03.9 [place] [address] [address] Apr, CVA (cerebral vascular accident) I63.9 ; Left hand weakness M62.81 and Neuropathy G62.9 [place] [address] [address] Apr, Hypokalemia E87.6 [place] [address] [address] Apr, Hypokalemia E87.6 [place] [id number] [place] [address] Mar, Diabetes E11.9 ; Edema, unspecified type R60.9 ; Anxiety disorder, unspecified F41.9 ; Pain in left knee M25.562 ; Other chronic pain G89.29 and Status post stroke Z86.73 [facility] [id number] [place] [address] 15 Mar, 2016 [facility] [address] [address] Mar, [place] [address] [address] Mar, Neuropathy G62.9 [place] [id number] [place] [address] Feb, Anorexia R63.0 and Neuropathy G62.9 [facility] [place] [id number] [place] [address] Jan, Diabetes E11.9 ; Neuropathy G62.9 ; Panic attack F41.0 ; Pain in left knee M25.562 and Hypertension 401.9 [facility] [id number] [place] [address] Jan, Weakness R53.1 ; Fatigue, unspecified type R53.83 ; Falling episodes R29.6 and Neuropathy G62.9 [place] [id number] [place] [address] Jan, Pain in left knee M25.562 [facility] [place] [id number] [place] [address] Jan, [facility] [id number] [place] [address] Jan, [facility] [place] [id number] [place] [address] Jan, [facility] [address] [place] [address] Dec, Diabetes E11.9 ; Neuropathy G62.9 and Dementia F03.90 [facility] [address] [address] Dec, [facility] [address] [address] Dec, Neuropathy G62.9 ; Diabetes E11.9 ; Anxiety F41.9 and Constipation, unspecified constipation type K59.00 [facility] [id number] [place] [address] Dec, [facility] [address] [address] Dec, Anxiety F41.9 [facility] [address] [address] November, [facility] [address] [address] November, Pain in left knee M25.562 ; Other chronic pain G89.29 ; Diabetes E11.9 and Left eye pain H57.12 [place] [address] [address] November, [place] [id number] [place] [address] November, Hearing loss, unspecified laterality H91.90 [facility] [id number] [place] [address] November, [facility] [id number] [place] [address] November, [facility] [address] [address] November, Pain in right knee M25.561 [facility] [address] [address] November, [place] [id number] [place] [address] Oct, [facility] [id number] [place] [address] Oct, [facility] [id number] [place] [address] Oct, Edema of left lower extremity R60.0 ; Diabetes E11.9 ; 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 I63.39 and Anxiety disorder, unspecified F41.9 [facility] [id number] [place] [address] 14 Oct, 2015 Panic attack F41.0 [facility] [id number] [place] [address] 14 Oct, 2015 [place] [id number] [place] [address] Oct, CVA (cerebral vascular accident) I63.9 [facility] [id number] [place] [address] Oct, [facility] [id number] [place] [address] 04 Oct, 2015 Diabetes E11.9 ; Hypertension I10 and Dementia F03.90 [facility] [id number] [place] [address] Sep, [facility] [id number] [place] [address] Sep, [facility] [id number] [place] [address] Sep, Diabetes E11.9 ; 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 ; Onychomycosis B35.1 and Fatigue R53.83 [facility] [address], [place] [address] Aug, [facility] [id number] [place] [address] Aug, [facility] [id number] [place] [address] Jul, [facility] [id number] [place] [address] Jul, [facility] [id number] [place] [address] Jun, 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 [facility] [id number] [place] [address] Jun, Anxiety disorder, unspecified F41.9 and Major depressive disorder, single episode, moderate F32.1 [facility] [id number] [place] [address] Jun, [facility] [id number] [place] [address] Jun, [facility] [id number] [place] [address] May, Left knee pain M25.562 [facility] [id number] [place] [address] May, [facility] [id number] [place] [address] May, [facility] [id number] [place] [address] May, [facility] [id number] [place] [address] May, Hypertension I10 ; Diabetes E11.9 and Depression F32.9 [facility] [id number] [place] [address] May, [facility] [id number] [place] [address] Apr, Left knee pain M25.562 ; Type 2 diabetes mellitus with complication E11.8 and Encounter for immunization Z23 [facility] [address] [address] Apr, [facility] [id number] [place] [address] Apr, [facility] [id number] [place] [address] Mar, [facility] [id number] [place] [address] Mar, Silvestre stanley 727.51 [facility] [id number] [place] [address] Mar, [facility] [id number] [place] [address] Mar, [facility] [id number] [place] [address] Mar, [facility] [id number] [place] [address] Feb, [facility] [id number] [place] [address] Feb, [facility] [id number] [place] [address] Feb, Hypertension 401.9 and Diabetes 250.00 [facility] [id number] [place] [address] Jan, [facility] [address] [place] [address] Jan, Diabetes 250.00 [facility] [id number] [place] [address] Jan, [facility] [id number] [place] [address] Jan, [facility] [id number] [place] [address] Dec, Diabetes 250.00 and Forgetfulness 780.99 [facility] [address], [place] [address] Dec, [facility] [address] [address] Dec, Diabetes mellitus 250.00 [facility] [address] [place] [address] Dec, [facility] [address], [place] [address] Dec, [facility] [address] [place] [address] Dec, [facility] [address] [address] 16 Dec, 2014 Diabetes 250.00 and Dysthymia 300.4 [facility] [address], [place] [address] Dec, [facility] [id number] [address] Dec, Grief 309.0 and Diabetes mellitus 250.00 [facility] [id number] [address] Oct, [facility] [id number] [address] Oct, [facility] [id number] [address] Jul, [facility] [id number] [address] Jul, [facility] [id number] [address] Jul, [facility] [id number] [address] Jul, [facility] [place] [facility] [address] [id number] [place] [address] Jul, [facility] [place] [facility] [address] [id number] [place] [address] May, [facility] [place] [facility] [address] [id number] [place] [address] May, [facility] [place] [facility] [address] [id number] [place] [address] Apr, [facility] [place] [facility] [address] [id number] [place] [address] Apr, [facility] [place] [facility] [address] [id number] [place] [address] Mar, [facility] [place] [facility] [address] [id number] [place] [address] Mar, [facility] [place] [facility] [address] [id number] [place] [address] Feb, [facility] [place] [facility] [address] [id number] [place] [address] Feb, [facility] [place] [facility] [address] [id number] [place] [address] Feb, [facility] [place] [facility] [address] [id number] [place] [address] Feb, [facility] [place] [facility] [address] [id number] [place] [address] Feb, [facility] [facility] [address] [id number] [place] [address] Feb, [facility] [place] [facility] [address] [id number] [place] [address] November, [facility] [place] [facility] [address] [id number] [place] [address] November, [facility] [place] [facility] [address] [id number] [place] [address] Sep, [facility] [place] [facility] [address] [id number] [place] [address] Sep, [facility] [place] [facility] [address] [id number] [place] [address] Sep, [facility] [place] [facility] [address] [id number] [place] [address] Sep, [facility] [place] [facility] [address] [id number] [place] [address] Sep, [facility] [place] [facility] [address] [id number] [place] [address] Sep, [facility] [place] [facility] [address] [id number] [place] [address] Sep, [facility] [place] [facility] [address] [id number] [place] [address] Sep, [facility] [place] [facility] [address] [id number] [place] [address] Aug, [facility] [place] [facility] [address] [id number] [place] [address] Aug, [facility] [place] [facility] [address] [id number] [place] [address] Jul, [facility] [place] [facility] [address] [id number] [place] [address] Jul, [facility] [place] [facility] [address] [id number] [place] [address] Jul, [facility] [place] [facility] [address] [id number] [place] [address] Jul, [facility] [place] [facility] [address] [id number] [place] [address] Jun, [facility] [place] [facility] [address] [id number] [place] [address] Jun, [facility] [place] [facility] [address] [id number] [place] [address] May, [facility] [address] [id number] [place] [address] May, [facility] [place] [facility] [address] [id number] [place] [address] May, [facility] [address] [id number] [place] [address] May, [facility] [address] [id number] [place] [address] May, [facility] [address] [id number] [place] [address] May, [facility] [place] [address] [id number] [place] [address] Apr, [facility] [place] [address] [id number] [place] [address] Apr, [facility] [address] [id number] [place] [address] Apr, [facility] [address] [id number] [place] [address] Apr, [facility] [address] [id number] [place] [address] Mar, [facility] [place] [facility] [address] [id number] [place] [address] Mar, [facility] [place] [address] [id number] [place] [address] Jan, [facility] [address] [id number] [place] [address] Jan, [facility] [address] [id number] [place] [address] Jan, [facility] [address] [id number] [place] [address] November, [facility] [address] [id number] [place] [address] November, [facility] [address] [id number] [place] [address] November, [facility] [place] [facility] [address] [id number] [place] [address] November, [facility] [place] [facility] [address] [id number] [place] [address] Aug, [facility] [place] [facility] [address] [id number] [place] [address] Jul, [facility] [place] [address] [id number] [place] [address] Jul, [facility] [facility] [address] [id number] [place] [address] Jul, [facility] [facility] [address] [id number] [place] [address] Jun, [facility] [place] [address] [id number] [place] [address] Jun, [facility] [place] [address] [id number] [place] [address] May, [facility] [address] [id number] [place] [address] May, [facility] [address] [id number] [place] [address] Apr, [facility] [address] [id number] [place] [address] Apr, [facility] [address] [id number] [place] [address] Apr, [facility] [address] [id number] [place] [address] Apr, [facility] [facility] [address] [id number] [place] [address] Apr, [facility] [place] [address] [id number] [place] [address] Apr, [facility] [place] [facility] [address] [id number] [place] [address] Apr, [facility] [address] [id number] [place] [address] Apr, [facility] [place] [address] [id number] [place] [address] Apr, [facility] [address] [id number] [place] [address] Mar, [facility] [place] [address] [id number] [place] [address] Feb, [facility] [place] [facility] [address] [id number] [place] [address] November, [facility] [address] [id number] [place] [address] November, [facility] [address] [id number] [place] [address] November, [facility] [address] [facility] [id number] [place] [address] November, [facility] [address] [id number] [place] [address] Jun, [facility] [address] [id number] [place] [address] Jun, [facility] [address] [id number] [place] [address] May, [facility] [address] [id number] [place] [address] May, [facility] [address] [id number] [place] [address] Apr, [facility] [address] [facility] [id number] [place] [address] Apr, [facility] [address] [facility] [id number], [place] [address] May, [facility] [address] [facility] [id number], [place] [address] Apr, [facility] [address] [facility] [id number], [place] [address] Apr, [facility] [address] [facility] [id number], [place] [address] Apr, [facility] [address] [facility] [id number], [place] [address] Apr, IMMUNIZATIONS No Known Immunizations SOCIAL HISTORY [...] Hospitalization History Post Stroke pt went to [facility] and then [facility] 10/15/15 Hospitalization History Hypotension, Wander ateral leg weakness--Via [facility] 01/15/16 Hospitalization History hypertension/chest pain 03/2017
--- OUTSIDE RECORDS SUMMARY | 2023-03-21 11:29 | XMS REPORT ---
Author Author Lady SIMMONS Organization [facility] C Address [address] [place] [address] Care Team Providers Care Cleat Feeder Name Role Phone OMI SIMMONS Unavailable PROBLEMS Type Condition ICD9-CM Code [id number] Code Onset Dates Condition Status SNOMED Code Problem Panic attack F41.0 Active 062148236 Problem Hypertension I10 Active 73466777 Problem Anxiety F41.9 Active 09314260 Problem Other chronic pain G89.29 Active 57731 001 Problem Dementia with behavioral disturbance, unspecified dementia type F03.91 Active [id number] Problem Hypothyroidism (acquired) E03.9 Active 038801001 Problem Vascular dementia without behavioral disturbance F01.50 Active 418796201 Problem 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 Active 895024160168 Problem Falls frequently R29.6 Active 1406601 02 Problem Type 2 diabetes mellitus with diabetic neuropathy, unspecified E11.40 Active 78249159 Problem Moderate episode of recurrent 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 Active 07343825 1 Problem Cardiomegaly I51.7 Active 4196763 Problem 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 Active 509146297 Problem Diabetes E11.9 Active 135142806 Problem 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 Active 00328186 Problem History of cerebrovascular accident with hemiparesis or hemiplegia Z86.73 Active 033178974 Problem Bilateral hearing loss, unspecified hearing loss type H91.93 Active 42542784 Problem SNHL (sensory-neural hearing loss), 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 Active 196957826 Problem Left-sided muscle weakness M62.81 Active 512396386 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 28975060 ALLERGIES No Information ENCOUNTERS Encounter Location Date Diagnosis [facility] [address] [id number] [place] [address] 24 Aug, 2019 [facility] [address] [id number] [place] [address] Aug, [facility] [id number] [place] [address] Aug, [facility] [address] [address] Jul, 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 ; Type 2 diabetes mellitus with diabetic neuropathy, unspecified E11.40 ; Hypertension I10 and Physical debility R53.81 [facility] [id number] [place] [address] May, [facility] [address] [address] Apr, [facility] [address] [address] Mar, Type 2 diabetes mellitus with diabetic neuropathy, unspecified E11.40 ; Hypertension I10 ; Diabetes E11.9 ; Dementia with behavioral disturbance, unspecified dementia type F03.91 ; Type 2 diabetes mellitus with complication, without long-term current use of insulin E11.8 and Neck pain M54.2 [facility] [id number] [place] [address] Mar, Dysuria R30.0 [id number] [place] [address] Feb, [facility] [address] [id number] [place] [address] Feb, [facility] [id number] [place] [address] Jan, [facility] [id number] [place] [address] Dec, [facility] [address] [address] Dec, [facility] [address] [address] Dec, [facility] [address] [address] November, Dental examination Z01.20 and Periodontitis K05.30 [place] [address] [address] November, [place] [address] [address] November, [place] [address] [address] Oct, Encounter for Medicare annual wellness exam [...] hearing loss, unspecified hearing loss type H91.93 [place] [address] [address] Oct, [place] [address] [address] Oct, [place] [address] [address] Sep, [place] [address] [address] Aug, Anxiety F41.9 [place] [address] [address] Aug, Encounter for immunization Z23 [place] [address] [address] Jul, History of cerebrovascular accident with hemiparesis or hemiplegia Z86.73 ; Dementia with behavioral disturbance, unspecified dementia type F03.91 ; Hypothyroidism (acquired) E03.9 ; Type 2 diabetes mellitus with diabetic neuropathy, unspecified E11.40 and 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 [place] [address] [address] Jul, [place] [address] [address] Jul, Type 2 diabetes mellitus with diabetic neuropathy, unspecified E11.40 ; Anxiety F41.9 ; Vascular dementia without behavioral disturbance F01.50 ; Moderate episode of recurrent major depressive disorder F33.1 ; Onychomycosis of great toe B35.1 ; 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 and Type 2 diabetes mellitus with complication, without long-term current use of insulin E11.8 [place] [address] [address] Jun, Hypertension I10 ; Anxiety F41.9 ; Dementia with behavioral disturbance, unspecified dementia type F03.91 ; 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 ; Moderate episode of recurrent major depressive disorder F33.1 ; Encounter for immunization Z23 ; Skin lesion of left leg L98.9 ; BMI 28.0-28.9,adult Z68.28 and Other chronic pain G89.29 [place] [address] [address] May, Lymphadenopathy, axillary R59.0 [place] [address] [address] May, [place] [address] [address] Apr, [place] [address] [address] Apr, [place] [address] [address] Apr, [place] [address] [address] Apr, [place] [address] [address] Mar, Anxiety F41.9 ; Moderate episode of recurrent major depressive disorder F33.1 and Dementia with behavioral disturbance, unspecified dementia type F03.91 [place] [address] [address] Mar, [place] [address] [address] Mar, Diabetes E11.9 ; Hypothyroidism (acquired) E03.9 ; Hypertension I10 and Type 2 diabetes mellitus with diabetic neuropathy, unspecified E11.40 [place] [address] [address] Jan, [place] [address] [address] Dec, Anxiety F41.9 and Moderate episode of recurrent major depressive disorder F33.[address] [address] November, [place] [address] [address] November, Chronic cough R05 and Cardiomegaly I51.[address] [address] Oct, Medicare annual wellness visit, initial Z00.00 [...] seizures R56.1 and Encounter for immunization Z23 [place] [address] [address] Sep, [place] [address] [address] Jul, [place] [address] [address] Jul, [place] [id number] [place] [address] Jun, Anxiety F41.9 and Moderate episode of recurrent major depressive disorder F33.1 [place] [address] [address] Jun, Bronchitis J40 and Bilateral hearing loss, unspecified hearing loss type H91.93 [place] [address] [address] Jun, [place] [address] [address] Apr, [place] [address] [address] Apr, Encounter for immunization Z23 and Left breast mass N63.20 [place] [address] [address] 16 Apr, 2017 [place] [address] [address] Mar, CVA (cerebral vascular accident) I63.9 ; Hypertension I10 ; 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.39 ; Type 2 diabetes mellitus with diabetic neuropathy, unspecified E11.40 and Left breast mass N63 [place] [address] [address] Mar, Mild episode of recurrent major depressive disorder F33.0 and Anxiety F41.9 [place] [address] [address] Mar, Breast mass, left N63 [place] [address] [address] Mar, Breast mass, left N63 [place] [address] [address] Feb, [place] [address] [address] Feb, [place] [address] [address] Feb, [place] [address] [address] Feb, [facility] [address] [address] Feb, Onychomycosis B35.1 and Type 2 diabetes mellitus with complication E11.8 [place] [address] [address] Jan, Mild episode of recurrent major depressive disorder F33.0 and Anxiety F41.9 [place] [address] [address] Jan, [place] [address] [address] Dec, Onychomycosis due to dermatophyte B35.1 ; Moderate episode of recurrent major depressive disorder F33.1 ; Type 2 diabetes mellitus with diabetic neuropathy, unspecified E11.40 ; Falls frequently R29.6 ; Neuropathy G62.9 ; Dementia with behavioral disturbance, unspecified dementia type F03.91 ; Hypothyroidism (acquired) E03.9 and Left hand pain M79.642 [place] [address] [address] Dec, [place] [address] [address] Dec, Hypothyroidism (acquired) E03.9 [place] [address] [address] Dec, Non insulin dependent diabetes mellitus with ophthalmic complication E11.39 [place] [address] [address] November, Hypothyroidism (acquired) E03.9 [facility] [address] [address] Oct, [place] [address] [address] Oct, Non insulin dependent diabetes mellitus with ophthalmic complication 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 [place] [address] [address] Oct, [place] [address] [address] Oct, Dysuria R30.0 ; 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.39 ; Bilateral hearing loss, unspecified hearing loss type H91.93 and 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 [place] [address] [address] Sep, [facility] [address] [facility] [id number] [address] Sep, Open wound of right great toe, initial encounter S91.101A [address] [address] Sep, Breast mass, left N63 ; Non-insulin dependent type 2 diabetes mellitus E11.9 and Vascular dementia without behavioral disturbance F01.[address] [address] Sep, [place] [address] [address] Jul, [address] [address] Jul, Diabetes E11.9 ; Diaper dermatitis L22 ; Candidiasis of skin and nail B37.2 ; Neuropathy G62.9 ; Status post stroke Z86.73 ; Unsteadiness on feet R26.81 and 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 [place] [address] [address] May, [address] [address] May, [address] [address] May, [address] [address] May, Dementia with behavioral disturbance, unspecified dementia type F03.91 [place] [address] [address] 16 May, 2016 Dementia with behavioral disturbance, unspecified dementia type F03.91 ; Encounter for immunization Z23 and Diabetes E11.9 [facility] [address] [address] 09 May, 2016 [place] [address] [address] 08 May, 2016 Neuropathy G62.9 [place] [address] [address] May, [place] [address] [address] Apr, Hypothyroidism (acquired) E03.9 [place] [address] [address] Apr, CVA (cerebral vascular accident) I63.9 ; Left hand weakness M62.81 and Neuropathy G62.9 [place] [address] [address] Apr, Hypokalemia E87.6 [place] [address] [address] Apr, Hypokalemia E87.6 [place] [address] [address] Mar, Diabetes E11.9 ; Edema, unspecified type R60.9 ; Anxiety disorder, unspecified F41.9 ; Pain in left knee M25.562 ; Other chronic pain G89.29 and Status post stroke Z86.73 [place] [address] [address] 15 Mar, 2016 [place] [address] [address] 15 Mar, 2016 [place] [address] [address] 07 Mar, 2016 Neuropathy G62.9 [place] [address] [address] Feb, Anorexia R63.0 and Neuropathy G62.9 [place] [address] [address] Jan, Diabetes E11.9 ; Neuropathy G62.9 ; Panic attack F41.0 ; Pain in left knee M25.562 and Hypertension 401.9 [place] [address] [address] Jan, Weakness R53.1 ; Fatigue, unspecified type R53.83 ; Falling episodes R29.6 and Neuropathy G62.9 [place] [address] [address] Jan, Pain in left knee M25.562 [place] [address] [address] Jan, [place] [address] [address] Jan, [place] [address] [address] Jan, [place] [address] [address] Dec, Diabetes E11.9 ; Neuropathy G62.9 and Dementia F03.90 [place] [address] [address] Dec, [place] [address] [address] Dec, Neuropathy G62.9 ; Diabetes E11.9 ; Anxiety F41.9 and Constipation, unspecified constipation type K59.00 [place] [address] [address] Dec, [place] [address] [address] Dec, Anxiety F41.9 [place] [address] [address] November, [facility] [address] [address] November, Pain in left knee M25.562 ; Other chronic pain G89.29 ; Diabetes E11.9 and Left eye pain H57.12 [facility] [address] [address] November, [facility] [address] [address] November, Hearing loss, unspecified laterality H91.90 [facility] [address] [address] November, [facility] [address] [address] November, [facility] [address] [address] November, Pain in right knee M25.561 [facility] [address] [address] November, [facility] [address] [address] Oct, [facility] [address] [address] Oct, [facility] [address] [address] Oct, Edema of left lower extremity R60.0 ; Diabetes E11.9 ; 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 I63.39 and Anxiety disorder, unspecified F41.9 [facility] [address] [address] Oct, Panic attack F41.0 [facility] [address] [address] 14 Oct, 2015 [facility] [address] [address] Oct, CVA (cerebral vascular accident) I63.9 [facility] [address] [address] Oct, [place] [address] [address] Oct, Diabetes E11.9 ; Hypertension I10 and Dementia F03.90 [place] [address] [address] Sep, [place] [address] [address] Sep, [place] [address] [address] Sep, Diabetes E11.9 ; 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 ; Onychomycosis B35.1 and Fatigue R53.83 [place] [address] [address] Aug, [place] [address] [address] Aug, [place] [address] [address] Jul, [place] [address] [address] Jul, [place] [address] [address] Jun, 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 [place] [address] [address] Jun, Anxiety disorder, unspecified F41.9 and Major depressive disorder, single episode, moderate F32.1 [place] [address] [address] Jun, [place] [address] [address] Jun, [place] [address] [address] May, Left knee pain M25.562 [facility] [address] [address] May, [facility] [address] [address] May, [facility] [address] [address] May, [facility] [address] [address] May, Hypertension I10 ; Diabetes E11.9 and Depression F32.9 [facility] [address] [address] May, [facility] [address] [address] Apr, Left knee pain M25.562 ; Type 2 diabetes mellitus with complication E11.8 and Encounter for immunization Z23 [facility] [address] [address] Apr, [facility] [address] [address] Apr, [facility] [address] [address] Mar, [facility] [address] [address] Mar, Silvestre stanley 727.51 [facility] [address] [address] Mar, [facility] [address] [address] Mar, [facility] [address] [address] Mar, [facility] [address] [address] Feb, [facility] [address] [place] [address] Feb, [facility] [id number] [place] [address] Feb, Hypertension 401.9 and Diabetes 250.00 [facility] [id number] [place] [address] Jan, [facility] [address] [address] Jan, Diabetes 250.00 [facility] [id number] [place] [address] Jan, [facility] [address] [address] Jan, [facility] [id number] [place] [address] Dec, Diabetes 250.00 and Forgetfulness 780.99 [facility] [id number] [place] [address] Dec, [facility] [id number] [place] [address] Dec, Diabetes mellitus 250.00 [facility] [id number] [place] [address] Dec, [facility] [address] [address] Dec, [facility] [address] [address] Dec, [facility] [address] [address] Dec, Diabetes 250.00 and Dysthymia 300.4 [facility] [address] [address] Dec, [facility] [id number] [place] [address] Dec, Grief 309.0 and Diabetes mellitus 250.00 [facility] [id number] [place] [address] 14 Oct, 2014 [facility] [place] [facility] [address] [facility] [id number] [place] [address] Oct, [facility] [place] [facility] [address] [id number] [place] [address] Jul, [facility] [place] [facility] [address] [id number] [place] [address] Jul, [facility] [place] [facility] [address] [id number] [place] [address] Jul, [facility] [place] [facility] [address] [id number] [place] [address] Jul, [facility] [place] [facility] [address] [id number] [place] [address] Jul, [facility] [place] [facility] [address] [id number] [place] [address] May, [facility] [place] [facility] [address] [id number] [place] [address] May, [facility] [place] [facility] [address] [id number] [place] [address] Apr, [facility] [place] [facility] [address] [id number] [place] [address] Apr, [facility] [place] [facility] [address] [id number] [place] [address] Mar, [facility] [place] [facility] [address] [id number] [place] [address] Mar, [facility] [place] [facility] [address] [id number] [place] [address] Feb, [facility] [place] [facility] [address] [id number] [place] [address] Feb, [facility] [place] [facility] [address] [id number] [place] [address] Feb, [facility] [place] [facility] [address] [id number] [place] [address] Feb, [facility] [place] [facility] [address] [id number] [place] [address] Feb, [facility] [place] [facility] [address] [id number] [place] [address] Feb, [facility] [place] [facility] [address] [id number] [place] [address] November, [facility] [place] [facility] [address] [id number] [place] [address] November, [facility] [place] [facility] [address] [id number] [place] [address] Sep, [facility] [place] [facility] [address] [id number] [place] [address] Sep, [facility] [place] [facility] [address] [id number] [place] [address] Sep, [facility] [place] [facility] [address] [id number] [place] [address] Sep, [facility] [place] [facility] [address] [id number] [place] [address] Sep, [facility] [place] [facility] [address] [id number] [place] [address] Sep, [facility] [place] [facility] [address] [id number] [place] [address] Sep, [facility] [place] [facility] [address] [id number] [place] [address] Sep, [facility] [place] [facility] [address] [id number] [place] [address] Aug, [facility] [place] [facility] [address] [id number] [place] [address] Aug, [facility] [place] [facility] [address] [id number] [place] [address] Jul, [facility] [place] [facility] [address] [id number] [place] [address] Jul, [facility] [place] [facility] [address] [id number] [place] [address] Jul, [facility] [place] [facility] [address] [id number] [place] [address] Jul, [facility] [place] [facility] [address] [id number] [place] [address] Jun, [facility] [place] [facility] [address] [id number] [place] [address] Jun, [facility] [place] [facility] [address] [id number] [place] [address] May, [facility] [place] [facility] [address] [id number] [place] [address] May, [facility] [place] [facility] [address] [id number] [place] [address] May, [facility] [place] [facility] [address] [id number] [place] [address] May, [facility] [address] [id number] [place] [address] May, [facility] [address] [id number] [place] [address] May, [facility] [address] [id number] [place] [address] Apr, [facility] [address] [id number] [place] [address] Apr, [facility] [address] [id number] [place] [address] Apr, [facility] [address] [id number] [place] [address] Apr, [facility] [address] [id number] [place] [address] Mar, [facility] [address] [id number] [place] [address] Mar, [facility] [address] [id number] [place] [address] Jan, [facility] [address] [id number] [place] [address] Jan, [facility] [address] [id number] [place] [address] Jan, [facility] [address] [id number] [place] [address] November, [facility] [address] [id number] [place] [address] November, [facility] [address] [id number] [place] [address] November, [facility] [address] [id number] [place] [address] November, [facility] [address] [id number] [place] [address] Aug, [facility] [address] [id number] [place] [address] Jul, [facility] [address] [place] [id number] [place] [address] Jul, [facility] [address] [id number] [place] [address] Jul, [facility] [id number] [place] [address] Jun, [facility] [address] [id number] [place] [address] Jun, [facility] [address] [id number] [place] [address] May, [facility] [address] [id number] [place] [address] May, [facility] [id number] [place] [address] Apr, [facility] [address] [id number] [place] [address] Apr, [facility] [address] [id number] [place] [address] Apr, [facility] [address] [id number] [place] [address] Apr, [facility] [address] [id number] [place] [address] Apr, [facility] [address] [id number] [place] [address] Apr, [facility] [address] [id number] [place] [address] Apr, [facility] [address] [id number] [place] [address] Apr, [facility] [address] [id number] [place] [address] Apr, [facility] [address] [id number] [place] [address] Mar, [facility] [address] [id number] [place] [address] Feb, [facility] [address] [id number] [place] [address] November, [facility] [address] [id number] [place] [address] November, [facility] [address] [id number] [place] [address] November, [facility] [address] [id number] [place] [address] November, [facility] [address] [id number] [place] [address] Jun, [facility] [address] [id number] [place] [address] Jun, [facility] [address] [id number] [place] [address] May, [facility] [address] [id number] [place] [address] May, [facility] [address] [id number] [place] [address] Apr, [facility] [address] [id number] [place] [address] Apr, [facility] [address] [id number] [place] [address] May, [facility] [address] [id number] [place] [address] Apr, [facility] [address] [id number] [place] [address] Apr, [facility] [address] [id number] [place] [address] Apr, [facility] [address] [id number] [place] [address] Apr, IMMUNIZATIONS No Known Immunizations SOCIAL HISTORY [...] Hospitalization History Post Stroke pt went to [facility] and then Via [facility] 10/15/15 Hospitalization History Hypotension, Wander ateral leg weakness--Via [facility] 01/15/16 Hospitalization History hypertension/chest pain 03/2017
--- OUTSIDE RECORDS SUMMARY | 2023-03-21 11:30 | XMS REPORT ---
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 Design Technologist Name Role Phone Migration, Doctor Unavailable Unavailable PROBLEMS Type Condition ICD9-CM Code [id number] Code Onset Dates Condition Status SNOMED Code Notes Problem Hypertension I10 Active 57450848 Problem History of cerebrovascular accident with hemiparesis or hemiplegia Z86.73 Active 914996282 10/2015 Problem Anxiety F41.9 Active 47579969 Problem Other chronic pain G89.29 Active 98157359 Problem Dementia with behavioral disturbance, unspecified dementia type F03.91 Active 8229722104418 Problem Hypothyroidism (acquired) E03.9 Active 711488166 Problem Vascular dementia without behavioral disturbance F01.50 Active 428082626 Problem 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 Active 450277850014 Problem Falls frequently R29.6 Active 0146506 02 Problem Type 2 diabetes mellitus with diabetic neuropathy, unspecified E11.40 Active 52128080 Problem 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 Active 539668757 Problem BMI 31.0-31.9,adult Z68.31 Active 882559740869816 Problem 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 Active 489040380 Problem Chronic kidney disease, stage 3 (moderate) N18.3 Active 249998532 Problem 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 Active 07095579 Problem SNHL (sensory-neural hearing loss), 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 Active 591001703 Problem Left-sided muscle weakness M62.81 Active 032012632 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 Problem Cardiomegaly I51.7 Active 6700016 ALLERGIES Allergen (clinical drug ingredient) Drug/Non Drug Allergy documented on EMR Reaction Allergy Type Onset Date Status liraglutide Victoza([facility] Code:[address]-53) stomach upset Drug Allergy Active ENCOUNTERS from 1935 to 2020-03-02 Encounter Location Date Provider Diagnosis [facility] [place] [address] [facility] [id number] [place] [address] Jul, Doctor Migration IMMUNIZATIONS Vaccine Route Administration Date Status influenza IIV3 (history) Unknown Apr 12, 2012 Jon garland Influenza, seasonal, injecta ble (split), for 3 yrs and up Unknown Apr 29, 2010 Administered influenza (history) Unknown Apr 21, 2019 Administ ered FLUZONE HIGH DOSE (65 AND UP) 2016 IM Intramuscular Oc 2016 Administered FLUARIX QUAD (3 & UP)-GSK-2014 IM Intramuscular Apr 132014 Administered influenza IIV3 (history) Unknown May 02, 2014 Adm inistered PRIVATE PPSV23 (PNEUMOVAX) IM Intramuscular October 12, 2017 Administered FLUZONE HIGH DOSE 0.5ML (65 and UP) 2017 IM Intramuscular Jun 15, 2018 Administered PRIVATE SHINGRIX (HERPES ZOS TER-2 DOSE) IM Intramuscular November 08, 2018 Administered PRIVATE SHINGRIX (HERPES ZOS TER-2 DOSE) IM Intramuscular Aug 16, 2018 Administered FLUZONE HIGH DOSE 65 AND UP 2015 IM Intramuscular May 28, 2016 Administered PRIVATE TDAP (BOOSTRIX) IM Intramuscular October 12 8 Administered influenza IIV3 (history) Unknown Apr 28, 2013 Jon dada influenza IIV3 (history) Unknown Apr 22, 2011 [facility] PRIVATE PCV 13 (PREVNAR) IM Intramuscular May 28, 2016 Administered SOCIAL HISTORY Tobacco Use: Social History Observation Description Date Details (start date - stop date) Never Smoker Sex Assigned At : Social History Observation Description Sex Assigned At Unknown Alcohol Screen (Audit-C) Question Answer Notes Did you have a drink containing alcohol in the p ast year? No Points 0 Interpretation Negative Tobacco Use/Smoking Question Answer Notes Are you a never smoker Tobacco use other than smoking: Question Answer Notes Are you an other tobacco user? No REASON FOR REFERRAL No Information MEDICATIONS Medication SIG (Take, Route, Fr equency, Duration) Start Date End Date Status Aricept 5 mg 1 tablet at bedtime Orally Once a day for 90 days Active Levetiracetam 500 MG 1 tablet Orally Twi ce a day for 90 days Active Levothyroxine Sodium 50 mcg 1 tablet on an empty stomach in the morning Orally Once a day for 90 days Active Zoloft 100 MG 1.5 tablets Orally O nce a day for 90 days Aug, Active Bydureon 2 MG Inject 2mg Subcutane ous once weekly for 28 Active Aspirin 81 MG 1 tablet Orally Once a day for 30 day(s) Jul, Active BusPIRone HCl 10 MG 1 tablet Orally Twic e a day for 30 days Active Seroquel 50 MG 1 tablet Orally Once a day for 90 days Jul, Active Norvasc 10 mg 1 tablet Orally Once a day for 90 days Active REASON FOR VISIT No Information MEDICAL (GENERAL) HISTORY Type Description Date Medical [...] History Post Stroke pt went to [facility] and then Via [facility] 10/15/15 Hospitalization History Hypotension, Wander ateral leg weakness--Via [facility] 01/15/16 Hospitalization History hypertension/chest pain 03/2017 MENTAL STATUS No Information PLAN OF TREATMENT Medication Medication Name Sig Start Date Stop Date BusPIRone HCl 10 MG 1 tablet Orally Twice a day for 30 days Insurance Providers Payer Name Payer Address Payer Phone Insured Name Patient Relationship to Insured Coverage Start Date Coverage End Date [address] [facility] [phone] Whitney Méndez ma [address] [facility] MEDICARE Part A FI [address] [facility] [phone] Whitney Méndez ma
--- OUTSIDE RECORDS SUMMARY | 2023-03-21 11:30 | XMS REPORT ---
Author Author [facility] ter of [facility] ter of [facility] Address Unknown Phone Unavailable Care Team Providers Care Nuclear Plant Equipment Operator Name Role Phone Migration, Doctor Unavailable Unavailable PROBLEMS Type Condition ICD9-CM Code LTR17-RY Code Onset Dates Condition Status SNOMED Code Notes Problem Hypertension I10 Active 00281120 Problem History of cerebrovascular accident with hemiparesis or hemiplegia Z86.73 Active 715058147 10/2015 Problem Anxiety F41.9 Active 80691555 Problem Other chronic pain G89.29 Active 94639388 Problem Dementia with behavioral disturbance, unspecified dementia type F03.91 Active 0834175418242 Problem Hypothyroidism (acquired) E03.9 Active 961409784 Problem Vascular dementia without behavioral disturbance F01.50 Active 962720539 Problem 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 Active 284680455291 Problem Falls frequently R29.6 Active 2787482 02 Problem Type 2 diabetes mellitus with diabetic neuropathy, unspecified E11.40 Active 99841599 Problem 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 Active 707756917 Problem BMI 31.0-31.9,adult Z68.31 Active 220306448727969 Problem 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 Active 995653845 Problem Chronic kidney disease, stage 3 (moderate) N18.3 Active 317323306 Problem 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 Active 83955882 Problem SNHL (sensory-neural hearing loss), 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 Active 098112010 Problem Left-sided muscle weakness M62.81 Active 333300624 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 [id number] [place] [address] Jul, Doctor Migration IMMUNIZATIONS Vaccine Route Administration Date Status PRIVATE SHINGRIX (HERPES ZOS TER-2 DOSE) IM Intramuscular November 08, 2018 Administered FLUZONE HIGH DOSE 0.5ML (65 and UP) 2017 IM Intramuscular Jun 15, 2018 Administered influenza (history) Unknown Apr 21, 2019 Administ ered FLUZONE HIGH DOSE 65 AND UP 2015 IM Intramuscular May 28, 2016 Administered FLUZONE HIGH DOSE (65 AND UP) 2016 IM Intramuscular Oc 2016 Administered PRIVATE SHINGRIX (HERPES ZOS TER-2 DOSE) IM Intramuscular Aug 16, 2018 Administered PRIVATE PPSV23 (PNEUMOVAX) IM Intramuscular October 12, 2017 Administered FLUARIX QUAD (3 & UP)-GSK-2014 IM Intramuscular Apr 132014 Administered PRIVATE TDAP (BOOSTRIX) IM Intramuscular October 12 8 Administered influenza IIV3 (history) Unknown May 02, 2014 Adm inistered influenza IIV3 (history) Unknown Apr 28, 2013 Jon garland influenza IIV3 (history) Unknown Apr 12, 2012 Jon garland influenza IIV3 (history) Unknown Apr 22, 2011 Jon garland PRIVATE PCV 13 (PREVNAR) IM Intramuscular May 28, 2016 Administered Influenza, seasonal, injecta ble (split), for 3 yrs and up Unknown Apr 29, 2010 Administered SOCIAL HISTORY Tobacco Use: Social History [...] Hospitalization History Post Stroke pt went to [facility] and then Via [facility] 10/15/15 Hospitalization History Hypotension, Wander ateral leg weakness--Via [facility] 01/15/16 Hospitalization History hypertension/chest pain 03/2017 MENTAL STATUS No Information PLAN OF TREATMENT Medication Medication Name Sig Start Date Stop Date BusPIRone HCl 10 MG 1 tablet Orally Twice a day for 30 days Insurance Providers Payer Name Payer Address Payer Phone Insured Name Patient Relationship to Insured Coverage Start Date Coverage End Date NGS MEDICARE Part A FI [address] [facility] [phone] Whitney Méndez ma [facility] [address] [facility] [phone] Whitney Méndez ma 2007
--- OUTSIDE RECORDS SUMMARY | 2023-03-21 11:30 | XMS REPORT ---
Author Author Lady SIMMONS Organization [facility] Address [address] [place] [address] Care Team Providers Care Sleeping Room Cleaner Name Role Phone OMI SIMMONS Unavailable PROBLEMS Type Condition ICD9-CM Code ORQ41-PO Code Onset Dates Condition Status SNOMED Code Problem Panic attack F41.0 Active 641310021 Problem Hypertension I10 Active 57568821 Problem Anxiety F41.9 Active 62737982 Problem Other chronic pain G89.29 Active 75067 001 Problem Dementia with behavioral disturbance, unspecified dementia type F03.91 Active 7632974488510 Problem Hypothyroidism (acquired) E03.9 Active 257852705 Problem Vascular dementia without behavioral disturbance F01.50 Active 635184806 Problem 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 Active 706470416959 Problem Falls frequently R29.6 Active 4020005 02 Problem Type 2 diabetes mellitus with diabetic neuropathy, unspecified E11.40 Active 62143573 Problem 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 Active 17438979 1 Problem Cardiomegaly I51.7 Active 1337414 Problem 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 Active 779180073 Problem Diabetes E11.9 Active 052896023 Problem 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 Active 55782941 Problem History of cerebrovascular accident with hemiparesis or hemiplegia Z86.73 Active 957852548 Problem Bilateral hearing loss, unspecified hearing loss type H91.93 Active 34553642 Problem SNHL (sensory-neural hearing loss), 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 Active 618730167 Problem Left-sided muscle weakness M62.81 Active 887613131 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 91872923 ALLERGIES No Information ENCOUNTERS Encounter Location Date Diagnosis [facility] [address] [facility] [id number] [address] Feb, [facility] [id number] [address] Jan, [facility] [address] [place] [address] Jan, [facility] [address], [place] [address] Dec, [facility] [address] [address] Oct, [facility] [address] [place] [address] Oct, [facility] [address], [place] [address] Aug, [facility] [address] [address] Aug, [facility] [address] [address] Aug, [facility] [address], [place] [address] Jul, Non insulin dependent diabetes mellitus with ophthalmic complication E11.39 ; Type 2 diabetes mellitus with diabetic neuropathy, unspecified E11.40 ; Hypertension I10 and Physical debility R53.81 [facility] [address], [place] [address] May, [facility] [address], [place] [address] Apr, [facility] [address], [place] [address] Mar, Type 2 diabetes mellitus with diabetic neuropathy, unspecified E11.40 ; Hypertension I10 ; Diabetes E11.9 ; Dementia with behavioral disturbance, unspecified dementia type F03.91 ; Type 2 diabetes mellitus with complication, without long-term current use of insulin E11.8 and Neck pain M54.2 [facility] [address], [place] [address] Mar, Dysuria R30.0 [facility] [address] [id number] [place] [address] Feb, [facility] [address] [facility] [id number] [address] Feb, [facility] [address] [facility] [id number], [place] [address] Jan, [facility] [address], [place] [address] Dec, [facility] [address] [facility] [id number], [place] [address] Dec, [facility] [address], [place] [address] Dec, [facility] [address], [place] [address] November, Dental examination Z01.20 and Periodontitis K05.30 [facility] [id number] [address] November, [facility] [address], [place] [address] November, [facility] [id number] [address] Oct, Encounter for Medicare annual wellness exam [...] hearing loss, unspecified hearing loss type H91.93 [facility] [address] [facility] [id number], [place] [address] Oct, [place] [address], [place] [address] Oct, [place] [id number] [place] [address] Sep, [place] [address] [place] [address] Aug, Anxiety F41.9 [place] [id number] [place] [address] Aug, Encounter for immunization Z23 [place] [address] [place] [address] Jul, History of cerebrovascular accident with hemiparesis or hemiplegia Z86.73 ; Dementia with behavioral disturbance, unspecified dementia type F03.91 ; Hypothyroidism (acquired) E03.9 ; Type 2 diabetes mellitus with diabetic neuropathy, unspecified E11.40 and 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 [place] [address] [place] [address] Jul, [place] [address] [place] [address] Jul, Type 2 diabetes mellitus with diabetic neuropathy, unspecified E11.40 ; Anxiety F41.9 ; Vascular dementia without behavioral disturbance F01.50 ; Moderate episode of recurrent major depressive disorder F33.1 ; Onychomycosis of great toe B35.1 ; 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 and Type 2 diabetes mellitus with complication, without long-term current use of insulin E11.8 [place] [id number] [place] [address] Jun, Hypertension I10 ; Anxiety F41.9 ; Dementia with behavioral disturbance, unspecified dementia type F03.91 ; 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 ; Moderate episode of recurrent major depressive disorder F33.1 ; Encounter for immunization Z23 ; Skin lesion of left leg L98.9 ; BMI 28.0-28.9,adult Z68.28 and Other chronic pain G89.29 [facility] [address] [place] [address] May, Lymphadenopathy, axillary R59.0 [facility] [id number] [place] [address] May, [facility] [id number] [place] [address] Apr, [facility] [id number] [place] [address] Apr, [facility] [id number] [place] [address] Apr, [facility] [id number] [place] [address] Apr, [facility] [id number] [place] [address] Mar, Anxiety F41.9 ; Moderate episode of recurrent major depressive disorder F33.1 and Dementia with behavioral disturbance, unspecified dementia type F03.91 [facility] [id number] [place] [address] Mar, [facility] [id number] [place] [address] Mar, Diabetes E11.9 ; Hypothyroidism (acquired) E03.9 ; Hypertension I10 and Type 2 diabetes mellitus with diabetic neuropathy, unspecified E11.40 [facility] [id number] [place] [address] Jan, [facility] [id number] [place] [address] Dec, Anxiety F41.9 and Moderate episode of recurrent major depressive disorder F33.1 [facility] [id number] [place] [address] November, [facility] [id number] [place] [address] November, Chronic cough R05 and Cardiomegaly I51.7 [place] [address] [address] Oct, Medicare annual wellness visit, initial Z00.00 [...] seizures R56.1 and Encounter for immunization Z23 [place] [address] [address] Sep, [place] [address] [address] Jul, [place] [address] [address] Jul, [place] [address] [address] Jun, Anxiety F41.9 and Moderate episode of recurrent major depressive disorder F33.1 [place] [address] [address] Jun, Bronchitis J40 and Bilateral hearing loss, unspecified hearing loss type H91.93 [place] [address] [address] Jun, [place] [address] [address] Apr, [place] [address] [address] Apr, Encounter for immunization Z23 and Left breast mass N63.20 [place] [address] [address] Apr, [facility] [id number] [place] [address] Mar, CVA (cerebral vascular accident) I63.9 ; Hypertension I10 ; 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.39 ; Type 2 diabetes mellitus with diabetic neuropathy, unspecified E11.40 and Left breast mass N63 [facility] [id number] [place] [address] Mar, Mild episode of recurrent major depressive disorder F33.0 and Anxiety F41.9 [facility] [id number] [place] [address] Mar, Breast mass, left N63 [facility] [id number] [place] [address] Mar, Breast mass, left N63 [facility] [id number] [place] [address] Feb, [facility] [id number] [place] [address] Feb, [facility] [id number] [place] [address] Feb, [facility] [id number] [place] [address] Feb, [facility] [id number] [place] [address] Feb, Onychomycosis B35.1 and Type 2 diabetes mellitus with complication E11.8 [facility] [id number] [place] [address] Jan, Mild episode of recurrent major depressive disorder F33.0 and Anxiety F41.9 [facility] [id number] [place] [address] Jan, [facility] [id number] [place] [address] Dec, Onychomycosis due to dermatophyte B35.1 ; 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.1 ; Type 2 diabetes mellitus with diabetic neuropathy, unspecified E11.40 ; Falls frequently R29.6 ; Neuropathy G62.9 ; Dementia with behavioral disturbance, unspecified dementia type F03.91 ; Hypothyroidism (acquired) E03.9 and Left hand pain M79.642 [place] [address] [address] Dec, [facility] [address] [address] Dec, Hypothyroidism (acquired) E03.9 [place] [address] [address] Dec, 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 [place] [address] [address] November, Hypothyroidism (acquired) E03.9 [facility] [id number] [place] [address] Oct, [facility] [address] [address] Oct, 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.39 [place] [id number] [place] [address] Oct, [facility] [id number] [place] [address] Oct, Dysuria R30.0 ; 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 ; Bilateral hearing loss, unspecified hearing loss type H91.93 and 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 [facility] [address] [address] Sep, [facility] [id number] [place] [address] Sep, Open wound of right great toe, initial encounter S91.101A [place] [address] [place] [address] 13 Sep, 2016 Breast mass, left N63 ; Non-insulin dependent type 2 diabetes mellitus E11.9 and Vascular dementia without behavioral disturbance F01.50 [place] [id number] [place] [address] Sep, [place] [address] [address] Jul, [place] [id number] [place] [address] Jul, Diabetes E11.9 ; Diaper dermatitis L22 ; Candidiasis of skin and nail B37.2 ; Neuropathy G62.9 ; Status post stroke Z86.73 ; Unsteadiness on feet R26.81 and 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 [place] [id number] [place] [address] May, [place] [id number] [place] [address] May, [place] [address] [address] May, [place] [id number] [place] [address] May, Dementia with behavioral disturbance, unspecified dementia type F03.91 [place] [id number] [place] [address] 16 May, 2016 Dementia with behavioral disturbance, unspecified dementia type F03.91 ; Encounter for immunization Z23 and Diabetes E11.9 [place] [id number] [place] [address] May, [place] [id number] [place] [address] May, Neuropathy G62.9 [place] [address] [address] May, [place] [address] [address] Apr, Hypothyroidism (acquired) E03.9 [place] [address] [address] Apr, CVA (cerebral vascular accident) I63.9 ; Left hand weakness M62.81 and Neuropathy G62.9 [place] [address] [address] Apr, Hypokalemia E87.6 [place] [address] [address] Apr, Hypokalemia E87.6 [place] [address] [address] Mar, Diabetes E11.9 ; Edema, unspecified type R60.9 ; Anxiety disorder, unspecified F41.9 ; Pain in left knee M25.562 ; Other chronic pain G89.29 and Status post stroke Z86.73 [place] [address] [address] Mar, [place] [address] [address] Mar, [place] [address] [address] Mar, Neuropathy G62.9 [place] [address] [address] Feb, Anorexia R63.0 and Neuropathy G62.9 [place] [address] [address] Jan, Diabetes E11.9 ; Neuropathy G62.9 ; Panic attack F41.0 ; Pain in left knee M25.562 and Hypertension 401.9 [place] [address] [address] Jan, Weakness R53.1 ; Fatigue, unspecified type R53.83 ; Falling episodes R29.6 and Neuropathy G62.9 [place] [address] [id number] [place] [address] Jan, Pain in left knee M25.562 [facility] [id number] [place] [address] Jan, [facility] [address] [address] Jan, [facility] [address] [address] Jan, [place] [id number] [place] [address] Dec, Diabetes E11.9 ; Neuropathy G62.9 and Dementia F03.90 [place] [address] [id number] [place] [address] Dec, [place] [address] [id number] [place] [address] Dec, Neuropathy G62.9 ; Diabetes E11.9 ; Anxiety F41.9 and Constipation, unspecified constipation type K59.00 [place] [address] [id number] [place] [address] Dec, [place] [address] [id number] [place] [address] Dec, Anxiety F41.9 [place] [address] [id number] [place] [address] November, [place] [address] [address] November, Pain in left knee M25.562 ; Other chronic pain G89.29 ; Diabetes E11.9 and Left eye pain H57.12 [place] [address] [address] November, [facility] [address], [place] [address] November, Hearing loss, unspecified laterality H91.90 [facility] [id number] [place] [address] November, [facility] [id number] [place] [address] November, [facility] [id number] [place] [address] November, Pain in right knee M25.561 [facility] [address] [id number] [place] [address] November, [facility] [id number] [place] [address] Oct, [facility] [id number] [place] [address] Oct, [facility] [address] [place] [address] Oct, Edema of left lower extremity R60.0 ; Diabetes E11.9 ; 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 I63.39 and Anxiety disorder, unspecified F41.9 [facility] [address] [place] [address] 14 Oct, 2015 Panic attack F41.0 [facility] [id number] [place] [address] 14 Oct, 2015 [facility] [address] [place] [address] 13 Oct, 2015 CVA (cerebral vascular accident) I63.9 [facility] [id number] [place] [address] Oct, [facility] [id number] [place] [address] Oct, Diabetes E11.9 ; Hypertension I10 and Dementia F03.90 [facility] [id number] [place] [address] Sep, [facility] [address] [id number] [place] [address] Sep, [facility] [address] [id number] [place] [address] Sep, Diabetes E11.9 ; 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 ; Onychomycosis B35.1 and Fatigue R53.83 [facility] [address] [id number] [place] [address] Aug, [place] [address] [id number] [place] [address] Aug, [facility] [address] [id number] [place] [address] Jul, [facility] [address] [id number] [place] [address] Jul, [facility] [address] [id number] [place] [address] Jun, 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 [place] [address] [id number] [place] [address] Jun, Anxiety disorder, unspecified F41.9 and Major depressive disorder, single episode, moderate F32.1 [facility] [address] [id number] [place] [address] Jun, [facility] [address] [id number] [place] [address] Jun, [facility] [id number] [place] [address] May, Left knee pain M25.562 [facility] [address] [id number] [place] [address] May, [facility] [id number] [place] [address] May, [facility] [id number] [place] [address] May, [facility] [address] [id number] [place] [address] May, Hypertension I10 ; Diabetes E11.9 and Depression F32.9 [facility] [id number] [place] [address] May, [facility] [address] [address] Apr, Left knee pain M25.562 ; Type 2 diabetes mellitus with complication E11.8 and Encounter for immunization Z23 [facility] [id number] [place] [address] Apr, [facility] [id number] [place] [address] Apr, [facility] [id number] [place] [address] Mar, [facility] [id number] [place] [address] Mar, Silvestre stanley 727.51 [facility] [id number] [place] [address] Mar, [facility] [id number] [place] [address] Mar, [facility] [id number] [place] [address] Mar, [facility] [id number] [place] [id number] Feb, [facility] [id number] [place] [id number] Feb, [facility] [id number] [address] Feb, Hypertension 401.9 and Diabetes 250.00 [facility] [id number] [place] [address] Jan, [facility] [id number] [address] Jan, Diabetes 250.00 [facility] [id number] [place] [id number] Jan, [facility] [id number] [place] [id number] Jan, [facility] [id number] [place] [id number] Dec, Diabetes 250.00 and Forgetfulness 780.99 [facility] [id number] [place] [id number] Dec, [facility] [id number] [address] Dec, Diabetes mellitus 250.00 [facility] [id number] [place] [address] Dec, [facility] [id number] [place] [address] Dec, [facility] [id number] [place] [address] Dec, [facility] [id number] [place] [address] Dec, Diabetes 250.00 and Dysthymia 300.4 [facility] [id number] [place] [address] Dec, [facility] [id number] [place] [address] Dec, Grief 309.0 and Diabetes mellitus 250.00 [facility] [address] [id number] [place] [address] Oct, [facility] [place] [facility] [address] [id number] [place] [address] Oct, [facility] [place] [facility] [address] [id number] [place] [address] Jul, [facility] [place] [facility] [address] [address] [id number] [place] [address] Jul, [facility] [place] [facility] [address] [id number] [place] [address] Jul, [facility] [place] [facility] [address] [id number] [place] [address] Jul, [facility] [place] [facility] [address] [id number] [place] [address] Jul, [facility] [place] [facility] [address] [id number] [place] [address] May, [facility] [place] [facility] [address] [id number] [place] [address] May, [facility] [place] [facility] [address] [id number] [place] [address] Apr, [facility] [place] [facility] [address] [id number] [place] [address] Apr, [facility] [place] [facility] [address] [id number] [place] [address] Mar, [facility] [place] [facility] [address] [id number] [place] [address] Mar, [facility] [place] [facility] [address] [id number] [place] [address] Feb, [facility] [place] [facility] [address] [id number] [place] [address] Feb, [facility] [place] [facility] [address] [id number] [place] [address] Feb, [facility] [place] [facility] [address] [id number] [place] [address] Feb, [facility] [place] [facility] [address] [id number] [place] [address] Feb, [facility] [place] [facility] [address] [id number] [place] [address] Feb, [facility] [place] [facility] [address] [id number] [place] [address] November, [facility] [place] [facility] [address] [id number] [place] [address] November, [facility] [place] [facility] [address] [id number] [place] [address] Sep, [facility] [place] [facility] [address] [id number] [place] [address] Sep, [facility] [place] [facility] [address] [id number] [place] [address] Sep, [facility] [place] [facility] [address] [id number] [place] [address] Sep, [facility] [place] [facility] [address] [id number] [place] [address] Sep, [facility] [place] [facility] [address] [id number] [place] [address] Sep, [facility] [place] [facility] [address] [id number] [place] [address] Sep, [facility] [place] [facility] [address] [id number] [place] [address] Sep, [facility] [place] [facility] [address] [id number] [place] [address] Aug, [facility] [place] [facility] [address] [id number] [place] [address] Aug, [facility] [place] [facility] [address] [id number] [place] [address] Jul, [facility] [address] [id number] [place] [address] Jul, [facility] [place] [facility] [address] [id number] [place] [address] Jul, [facility] [address] [id number] [place] [address] Jul, [facility] [address] [id number] [place] [address] Jun, [facility] [address] [id number] [place] [address] Jun, [facility] [address] [id number] [place] [address] May, [facility] [address] [id number] [place] [address] May, [facility] [address] [id number] [place] [address] May, [facility] [address] [id number] [place] [address] May, [facility] [address] [id number] [place] [address] May, [facility] [place] [facility] [address] [id number] [place] [address] May, [facility] [address] [id number] [place] [address] Apr, [facility] [place] [facility] [address] [id number] [place] [address] Apr, [facility] [place] [facility] [address] [id number] [place] [address] Apr, [facility] [place] [facility] [address] [id number] [place] [address] Apr, [facility] [address] [id number] [place] [address] Mar, [facility] [place] [facility] [address] [id number] [place] [address] Mar, [facility] [address] [id number] [place] [address] Jan, [facility] [place] [facility] [address] [id number] [place] [address] Jan, [facility] [address] [id number] [place] [address] Jan, [facility] [place] [facility] [address] [id number] [place] [address] November, [facility] [address] [id number] [place] [address] November, [facility] [address] [id number] [place] [address] November, [facility] [address] [id number] [place] [address] November, [facility] [address] [id number] [place] [address] Aug, [facility] [address] [id number] [place] [address] Jul, [facility] [place] [facility] [address] [id number] [place] [address] Jul, [facility] [place] [facility] [address] [id number] [place] [address] Jul, [facility] [place] [facility] [address] [id number] [place] [address] Jun, [facility] [place] [facility] [address] [id number] [place] [address] Jun, [facility] [place] [facility] [address] [id number] [place] [address] May, [facility] [place] [facility] [address] [id number] [place] [address] May, [facility] [place] [facility] [address] [id number] [place] [address] Apr, [facility] [place] [facility] [address] [id number] [place] [address] Apr, [facility] [place] [facility] [address] [id number] [place] [address] Apr, [facility] [place] [facility] [address] [id number] [place] [address] Apr, [facility] [place] [facility] [address] [id number] [place] [address] Apr, [facility] [place] [facility] [address] [id number] [place] [address] Apr, [facility] [place] [facility] [address] [id number] [place] [address] Apr, [facility] [place] [facility] [address] [id number] [place] [address] Apr, [facility] [place] [facility] [address] [facility] [id number] [place] [address] Apr, [facility] [place] [facility] [address] [id number] [place] [address] Mar, [facility] [place] [facility] [address] [id number], [place] [address] Feb, [facility] [place] [facility] [address] [id number] [place] [address] November, [facility] [place] [facility] [address] [id number] [place] [address] November, [facility] [place] [facility] [address] [facility] [id number] [place] [address] November, [facility] [place] [facility] [id number] [address] November, [facility] [id number] [place] [address] Jun, [facility] [id number] [place] [address] Jun, [facility] [id number] [place] [address] May, [facility] [id number] [place] [address] May, [facility] [id number] [place] [address] Apr, [facility] [id number] [place] [address] Apr, [facility] [id number] [place] [address] May, [facility] [id number] [place] [address] Apr, [facility] [id number] [place] [address] Apr, [facility] [id number] [place] [address] Apr, [facility] [id number] [place] [address] Apr, IMMUNIZATIONS No Known Immunizations SOCIAL HISTORY Never Assessed REASON FOR VISIT PLAN OF CARE VITAL SIGNS Height 62 in 2012-11-25 Weight 201 lbs 2012-11-25 Temperature 96.6 degrees Fahrenheit Heart Rate 60 bpm 2012-11-25 Respiratory Rate 18 2012-11-25 Blood pressure systolic 192 mmHg Blood pressure diastolic 90 mmHg 2012-11 MEDICATIONS Unknown Medications RESULTS No Results PROCEDURES Procedure Date Ordered Result Body Site GLYCATED HEMOGLOBIN TEST November 25, 2012 INSTRUCTIONS MEDICATIONS ADMINISTERED No Known Medications MEDICAL [...] to [facility] and then [facility] 10/15/15 Hospitalization History Hypotension, Wander ateral leg weakness--Via [facility] 01/15/16 Hospitalization History hypertension/chest pain 03/2017
--- OUTSIDE RECORDS SUMMARY | 2023-03-21 11:30 | XMS REPORT ---
Author Author Lady SIMMONS Organization [facility] C Address [address] [place] [address] Care Team Providers Care Choke Reamer Name Role Phone OMI SIMMONS Unavailable PROBLEMS Type Condition ICD9-CM Code JHP01-CL Code Onset Dates Condition Status SNOMED Code Problem Panic attack F41.0 Active 773012330 Problem Hypertension I10 Active 82578387 Problem Anxiety F41.9 Active 59992290 Problem Other chronic pain G89.29 Active 12390 001 Problem Dementia with behavioral disturbance, unspecified dementia type F03.91 Active 1065087445479 Problem Hypothyroidism (acquired) E03.9 Active 297097545 Problem Vascular dementia without behavioral disturbance F01.50 Active 625419807 Problem 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 Active 187847918739 Problem Falls frequently R29.6 Active 1897604 02 Problem Type 2 diabetes mellitus with diabetic neuropathy, unspecified E11.40 Active 41145568 Problem 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 Active 28344460 1 Problem Cardiomegaly I51.7 Active 4491400 Problem 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 Active 601824399 Problem Diabetes E11.9 Active 729115270 Problem 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 [address] [facility] [id number] [address] Feb, [facility] [address] [id number] [address] Jan, [facility] [address], [place] [address] Jan, [facility] [address], [place] [address] Dec, [facility] [address], [place] [address] Oct, [facility] [address] [place] [address] Oct, [facility] [address], [place] [address] Aug, [facility] [address], [place] [address] Aug, [facility] [address], [place] [address] Aug, [facility] [address], [place] [address] Jul, Non insulin dependent diabetes mellitus with ophthalmic complication E11.39 ; Type 2 diabetes mellitus with diabetic neuropathy, unspecified E11.40 ; Hypertension I10 and Physical debility R53.81 [facility] [address] [address] May, [facility] [address] [address] Apr, [facility] [address] [address] Mar, Type 2 diabetes mellitus with diabetic neuropathy, unspecified E11.40 ; Hypertension I10 ; Diabetes E11.9 ; Dementia with behavioral disturbance, unspecified dementia type F03.91 ; Type 2 diabetes mellitus with complication, without long-term current use of insulin E11.8 and Neck pain M54.2 [facility] [address], [place] [address] Mar, Dysuria R30.0 [facility] [address] [id number] [place] [address] Feb, [facility] [address] [facility] [id number], [place] [address] Feb, [facility] [address] [facility] [id number], [place] [address] Jan, [facility] [address], [place] [address] Dec, [facility] [address] [facility] [id number], [place] [address] Dec, [facility] [address], [place] [address] Dec, [facility] [address], [place] [address] November, Dental examination Z01.20 and Periodontitis K05.30 [facility] [id number] [address] November, [facility] [address], [place] [address] November, [facility] [id number] [address] Oct, Encounter for Medicare annual wellness exam [...] hearing loss, unspecified hearing loss type H91.93 [facility] [address] [facility] [id number], [place] [address] Oct, [place] [address], [place] [address] Oct, [place] [id number] [place] [address] Sep, [place] [address] [place] [address] Aug, Anxiety F41.9 [place] [id number] [place] [address] Aug, Encounter for immunization Z23 [place] [address] [place] [address] Jul, History of cerebrovascular accident with hemiparesis or hemiplegia Z86.73 ; Dementia with behavioral disturbance, unspecified dementia type F03.91 ; Hypothyroidism (acquired) E03.9 ; Type 2 diabetes mellitus with diabetic neuropathy, unspecified E11.40 and 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 [place] [address] [place] [address] Jul, [place] [address] [place] [address] Jul, Type 2 diabetes mellitus with diabetic neuropathy, unspecified E11.40 ; Anxiety F41.9 ; Vascular dementia without behavioral disturbance F01.50 ; Moderate episode of recurrent major depressive disorder F33.1 ; Onychomycosis of great toe B35.1 ; 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 [address] [place] [address] May, Lymphadenopathy, axillary R59.0 [facility] [id number] [place] [address] May, [facility] [id number] [place] [address] Apr, [facility] [id number] [place] [address] Apr, [facility] [id number] [place] [address] Apr, [facility] [id number] [place] [address] Apr, [facility] [id number] [place] [address] Mar, Anxiety F41.9 ; Moderate episode of recurrent major depressive disorder F33.1 and Dementia with behavioral disturbance, unspecified dementia type F03.91 [facility] [id number] [place] [address] Mar, [facility] [id number] [place] [address] Mar, Diabetes E11.9 ; Hypothyroidism (acquired) E03.9 ; Hypertension I10 and Type 2 diabetes mellitus with diabetic neuropathy, unspecified E11.40 [facility] [id number] [place] [address] Jan, 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 [id number] [place] [address] November, [facility] [id number] [place] [address] November, Chronic cough R05 and Cardiomegaly I51.7 [place] [address] [address] Oct, Medicare annual wellness visit, initial Z00.00 [...] seizures R56.1 and Encounter for immunization Z23 [place] [address] [address] Sep, [place] [address] [address] Jul, [place] [address] [address] Jul, [place] [address] [address] Jun, Anxiety F41.9 and Moderate episode of recurrent major depressive disorder F33.1 [place] [address] [address] Jun, Bronchitis J40 and Bilateral hearing loss, unspecified hearing loss type H91.93 [place] [address] [address] Jun, [place] [address] [address] Apr, [place] [address] [address] Apr, Encounter for immunization Z23 and Left breast mass N63.20 [place] [address] [address] Apr, 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 [id number] [place] [address] Mar, Mild episode of recurrent major depressive disorder F33.0 and Anxiety F41.9 [facility] [id number] [place] [address] Mar, Breast mass, left N63 [facility] [id number] [place] [address] Mar, Breast mass, left N63 [facility] [id number] [place] [address] Feb, [facility] [id number] [place] [address] Feb, [facility] [id number] [place] [address] Feb, [facility] [id number] [place] [address] Feb, [facility] [id number] [place] [address] Feb, Onychomycosis B35.1 and Type 2 diabetes mellitus with complication E11.8 [facility] [id number] [place] [address] Jan, Mild episode of recurrent major depressive disorder F33.0 and Anxiety F41.9 [facility] [id number] [place] [address] Jan, 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 [id number] [place] [address] Oct, [facility] [address] [address] Oct, Non insulin dependent diabetes mellitus with ophthalmic complication E11.39 [place] [id number] [place] [address] Oct, [facility] [id number] [place] [address] Oct, Dysuria R30.0 ; Non insulin dependent diabetes mellitus with ophthalmic complication E11.39 ; Bilateral hearing loss, unspecified hearing loss type H91.93 and 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 [facility] [address] [address] Sep, [facility] [id number] [place] [address] Sep, Open wound of right great toe, initial encounter S91.101A [place] [address] [place] [address] 13 Sep, 2016 Breast mass, left N63 ; Non-insulin dependent type 2 diabetes mellitus E11.9 and Vascular dementia without behavioral disturbance F01.50 [place] [id number] [place] [address] Sep, [place] [address] [address] Jul, [place] [id number] [place] [address] Jul, Diabetes E11.9 ; Diaper dermatitis L22 ; Candidiasis of skin and nail B37.2 ; Neuropathy G62.9 ; Status post stroke Z86.73 ; Unsteadiness on feet R26.81 and 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 [place] [id number] [place] [address] May, [place] [id number] [place] [address] May, [place] [address] [address] May, [place] [id number] [place] [address] May, Dementia with behavioral disturbance, unspecified dementia type F03.91 [place] [id number] [place] [address] 16 May, 2016 Dementia with behavioral disturbance, unspecified dementia type F03.91 ; Encounter for immunization Z23 and Diabetes E11.9 [place] [id number] [place] [address] May, [place] [id number] [place] [address] May, Neuropathy G62.9 [place] [address] [address] May, [place] [address] [address] Apr, Hypothyroidism (acquired) E03.9 [place] [address] [address] Apr, CVA (cerebral vascular accident) I63.9 ; Left hand weakness M62.81 and Neuropathy G62.9 [place] [address] [address] Apr, Hypokalemia E87.6 [place] [address] [address] Apr, Hypokalemia E87.6 [place] [address] [address] Mar, Diabetes E11.9 ; Edema, unspecified type R60.9 ; Anxiety disorder, unspecified F41.9 ; Pain in left knee M25.562 ; Other chronic pain G89.29 and Status post stroke Z86.73 [place] [address] [address] Mar, [place] [address] [address] Mar, [place] [address] [address] Mar, Neuropathy G62.9 [place] [address] [address] Feb, Anorexia R63.0 and Neuropathy G62.9 [place] [address] [address] Jan, Diabetes E11.9 ; Neuropathy G62.9 ; Panic attack F41.0 ; Pain in left knee M25.562 and Hypertension 401.9 [place] [address] [address] Jan, Weakness R53.1 ; Fatigue, unspecified type R53.83 ; Falling episodes R29.6 and Neuropathy G62.9 [place] [id number] [place] [address] Jan, Pain in left knee M25.562 [facility] [id number] [place] [address] Jan, [facility] [address] [address] Jan, [facility] [address] [address] Jan, [place] [id number] [place] [address] Dec, Diabetes E11.9 ; Neuropathy G62.9 and Dementia F03.90 [place] [id number] [place] [address] Dec, [place] [id number] [place] [address] Dec, Neuropathy G62.9 ; Diabetes E11.9 ; Anxiety F41.9 and Constipation, unspecified constipation type K59.00 [place] [id number] [place] [address] Dec, [place] [id number] [place] [address] Dec, Anxiety F41.9 [place] [id number] [place] [address] November, [place] [address] [address] November, Pain in left knee M25.562 ; Other chronic pain G89.29 ; Diabetes E11.9 and Left eye pain H57.12 [place] [address] [address] November, [facility] [address] [address] November, Hearing loss, unspecified laterality H91.90 [facility] [id number] [place] [address] November, [facility] [id number] [place] [address] November, [facility] [id number] [place] [address] November, Pain in right knee M25.561 [facility] [id number] [place] [address] November, [facility] [id number] [place] [address] Oct, [facility] [id number] [place] [address] Oct, [facility] [address] [place] [address] Oct, Edema of left lower extremity R60.0 ; Diabetes E11.9 ; 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 I63.39 and Anxiety disorder, unspecified F41.9 [facility] [address] [place] [address] 14 Oct, 2015 Panic attack F41.0 [facility] [id number] [place] [address] 14 Oct, 2015 [facility] [id number] [place] [address] 13 Oct, 2015 CVA (cerebral vascular accident) I63.9 [facility] [address] [place] [address] Oct, [facility] [id number] [place] [address] Oct, Diabetes E11.9 ; Hypertension I10 and Dementia F03.90 [facility] [id number] [place] [address] Sep, [facility] [id number] [place] [address] Sep, [facility] [id number] [place] [address] Sep, Diabetes E11.9 ; 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 ; Onychomycosis B35.1 and Fatigue R53.83 [facility] [id number] [place] [address] Aug, [place] [id number] [place] [phone] Aug, [facility] [id number] [place] [phone] Jul, [facility] [id number] [place] [phone] Jul, 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 [id number] [place] [phone] Jun, [facility] [id number] [place] [phone] Jun, [facility] [id number] [place] [phone] May, Left knee pain M25.562 [facility] [id number] [place] [phone] May, [facility] [id number] [place] [phone] May, [facility] [id number] [place] [phone] May, [facility] [id number] [place] [phone] May, Hypertension I10 ; Diabetes E11.9 and Depression F32.9 [facility] [id number] [place] [phone] May, [facility] [address] [phone] Apr, Left knee pain M25.562 ; Type 2 diabetes mellitus with complication E11.8 and Encounter for immunization Z23 [facility] [id number] [place] [phone] Apr, [facility] [id number] [place] [phone] Apr, [facility] [id number] [place] [phone] Mar, [facility] [facility] [id number] [place] [address] Mar, Silvestre stanley 727.51 [facility] [id number] [phone] Mar, [facility] [id number] [place] [address] Mar, [facility] [id number] [place] [address] Mar, [facility] [id number] [place] [address] Feb, [facility] [id number] [place] [address] Feb, [facility] [address] [address] Feb, Hypertension 401.9 and Diabetes 250.00 [facility] [address] [address] Jan, [facility] [id number] [address] Jan, Diabetes 250.00 [facility] [id number] [place] [address] Jan, [facility] [id number] [place] [address] Jan, [facility] [id number] [place] [address] Dec, Diabetes 250.00 and Forgetfulness 780.99 [facility] [id number] [place] [address] Dec, [facility] [address], [place] [address] Dec, Diabetes mellitus 250.00 [facility] [address] [address] Dec, [facility] [id number] [address] Dec, [facility] [address] [address] Dec, [facility] [id number] [address] Dec, Diabetes 250.00 and Dysthymia 300.4 [facility] [id number] [address] Dec, [facility] [id number] [address] Dec, Grief 309.0 and Diabetes mellitus 250.00 [facility] [address] [id number] [place] [address] Oct, [facility] [place] [facility] [address] [id number] [place] [address] Oct, [facility] [place] [facility] [address] [id number] [place] [address] Jul, [facility] [place] [facility] [address] [id number] [place] [address] Jul, [facility] [place] [facility] [address] [id number] [place] [address] Jul, [facility] [place] [facility] [address] [id number] [place] [address] Jul, [facility] [place] [facility] [address] [id number] [place] [address] Jul, [facility] [place] [facility] [address] [id number] [place] [address] May, [facility] [place] [facility] [address] [id number] [place] [address] May, [facility] [place] [facility] [address] [id number] [place] [address] Apr, [facility] [place] [facility] [address] [id number] [place] [address] Apr, [facility] [place] [facility] [address] [id number] [place] [address] Mar, [facility] [place] [facility] [address] [id number] [place] [address] Mar, [facility] [place] [facility] [address] [id number] [place] [address] Feb, [facility] [place] [facility] [address] [id number] [place] [address] Feb, [facility] [place] [facility] [address] [id number] [place] [address] Feb, [facility] [place] [facility] [address] [id number] [place] [address] Feb, [facility] [place] [facility] [address] [id number] [place] [address] Feb, [facility] [place] [facility] [address] [id number] [place] [address] Feb, [facility] [place] [facility] [address] [id number] [place] [address] November, [facility] [place] [facility] [address] [id number] [place] [address] November, [facility] [place] [facility] [address] [id number] [place] [address] Sep, [facility] [place] [facility] [address] [id number] [place] [address] Sep, [facility] [place] [facility] [address] [id number] [place] [address] Sep, [facility] [place] [facility] [address] [id number] [place] [address] Sep, [facility] [place] [facility] [address] [id number] [place] [address] Sep, [facility] [place] [facility] [address] [id number] [place] [address] Sep, [facility] [place] [facility] [address] [id number] [place] [address] Sep, [facility] [place] [facility] [address] [id number] [place] [address] Sep, [facility] [place] [facility] [address] [id number] [place] [address] Aug, [facility] [place] [facility] [address] [id number] [place] [address] Aug, [facility] [place] [facility] [address] [id number] [place] [address] Jul, [facility] [address] [id number] [place] [address] Jul, [facility] [place] [facility] [address] [id number] [place] [address] Jul, [facility] [address] [id number] [place] [address] Jul, [facility] [address] [id number] [place] [address] Jun, [facility] [address] [id number] [place] [address] Jun, [facility] [address] [id number] [place] [address] May, [facility] [address] [id number] [place] [address] May, [facility] [address] [id number] [place] [address] May, [facility] [address] [id number] [place] [address] May, [facility] [address] [id number] [place] [address] May, [facility] [place] [facility] [address] [id number] [place] [address] May, [facility] [address] [id number] [place] [address] Apr, [facility] [place] [facility] [address] [id number] [place] [address] Apr, [facility] [place] [facility] [address] [id number] [place] [address] Apr, [facility] [place] [facility] [address] [id number] [place] [address] Apr, [facility] [address] [id number] [place] [address] Mar, [facility] [place] [facility] [address] [id number] [place] [address] Mar, [facility] [address] [id number] [place] [address] Jan, [facility] [place] [facility] [address] [id number] [place] [address] Jan, [facility] [address] [id number] [place] [address] Jan, [facility] [place] [facility] [address] [id number] [place] [address] November, [facility] [address] [id number] [place] [address] November, [facility] [address] [id number] [place] [address] November, [facility] [address] [id number] [place] [address] November, [facility] [address] [id number] [place] [address] Aug, [facility] [address] [id number] [place] [address] Jul, [facility] [place] [facility] [address] [id number] [place] [address] Jul, [facility] [place] [facility] [address] [id number] [place] [address] Jul, [facility] [place] [facility] [address] [id number] [place] [address] Jun, [facility] [place] [facility] [address] [id number] [place] [address] Jun, [facility] [place] [facility] [address] [id number] [place] [address] May, [facility] [place] [facility] [address] [id number] [place] [address] May, [facility] [place] [facility] [address] [id number] [place] [address] Apr, [facility] [place] [facility] [address] [id number] [place] [address] Apr, [facility] [place] [facility] [address] [id number] [place] [address] Apr, [facility] [place] [facility] [address] [id number] [place] [address] Apr, [facility] [place] [facility] [address] [id number] [place] [address] Apr, [facility] [place] [facility] [address] [id number] [place] [address] Apr, [facility] [place] [facility] [address] [id number] [place] [address] Apr, [facility] [place] [facility] [address] [id number] [place] [address] Apr, [facility] [place] [facility] [address] [facility] [id number] [place] [address] Apr, [facility] [place] [facility] [address] [id number] [place] [address] Mar, [facility] [place] [facility] [address] [id number] [address] Feb, [facility] [place] [facility] [address] [id number] [place] [address] November, [facility] [place] [facility] [address] [id number] [place] [address] November, [facility] [place] [facility] [address] [facility] [id number] [place] [address] November, [facility] [place] [facility] [address], [place] [address] November, [facility] [address], [place] [address] Jun, [facility] [address], [place] [address] Jun, [facility] [address], [place] [address] May, [facility] [address], [place] [address] May, [facility] [id number] [place] [address] Apr, [facility] [address], [place] [address] Apr, [facility] [address], [place] [address] May, [facility] [address], [place] [address] Apr, [facility] [address], [place] [address] Apr, [facility] [address], [place] [address] Apr, [facility] [address], [place] [address] Apr, IMMUNIZATIONS No Known Immunizations SOCIAL HISTORY [...] Hospitalization History Post Stroke pt went to [facility] and then [facility] 10/15/15 Hospitalization History Hypotension, Wander ateral leg weakness--Via [facility] 01/15/16 Hospitalization History hypertension/chest pain 03/2017
--- OUTSIDE RECORDS SUMMARY | 2023-03-21 11:30 | XMS REPORT ---
Author Author Lady SIMMONS Organization [facility] C Address [address] [place] [address] Care Team Providers Care Senior Research Engineer Name Role Phone OMI SIMMONS Unavailable PROBLEMS Type Condition ICD9-CM Code BFE55-VW Code Onset Dates Condition Status SNOMED Code Problem Panic attack F41.0 Active 526813232 Problem Hypertension I10 Active 95666337 Problem Anxiety F41.9 Active 15037815 Problem Other chronic pain G89.29 Active 89350 001 Problem Dementia with behavioral disturbance, unspecified dementia type F03.91 Active 8232786505374 Problem Hypothyroidism (acquired) E03.9 Active 723250561 Problem Vascular dementia without behavioral disturbance F01.50 Active 868847313 Problem 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 Active 880244554720 Problem Falls frequently R29.6 Active 5463846 02 Problem Type 2 diabetes mellitus with diabetic neuropathy, unspecified E11.40 Active 99249818 Problem 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 Active 48494540 1 Problem Cardiomegaly I51.7 Active 2214021 Problem 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 Active 031576225 Problem Diabetes E11.9 Active 209785413 Problem Non insulin dependent diabetes mellitus with ophthalmic complication E11.39 Active 31641552 Problem History of cerebrovascular accident with hemiparesis or hemiplegia Z86.73 Active 692755313 Problem Bilateral hearing loss, unspecified hearing loss type H91.93 Active 75379352 Problem SNHL (sensory-neural hearing loss), 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 Active 305327866 Problem Left-sided muscle weakness M62.81 Active 466010375 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 80481609 ALLERGIES No Information ENCOUNTERS Encounter Location Date Diagnosis [facility] [address] [facility] [id number] [address] Feb, [facility] [id number] [address] Jan, [facility] [address], [place] [address] Jan, [facility] [address], [place] [address] Dec, [facility] [address], [place] [address] Oct, [facility] [address] [place] [address] Oct, [facility] [address], [place] [address] Aug, [facility] [address], [place] [address] Aug, [facility] [address], [place] [address] Aug, [facility] [address], [place] [address] Jul, Non insulin dependent diabetes mellitus with ophthalmic complication E11.39 ; Type 2 diabetes mellitus with diabetic neuropathy, unspecified E11.40 ; Hypertension I10 and Physical debility R53.81 [facility] [address], [place] [address] May, [facility] [address], [place] [address] Apr, [facility] [address], [place] [address] Mar, Type 2 diabetes mellitus with diabetic neuropathy, unspecified E11.40 ; Hypertension I10 ; Diabetes E11.9 ; Dementia with behavioral disturbance, unspecified dementia type F03.91 ; Type 2 diabetes mellitus with complication, without long-term current use of insulin E11.8 and Neck pain M54.2 [facility] [address], [place] [address] Mar, Dysuria R30.0 [facility] [address] [id number] [place] [address] Feb, [facility] [address] [facility] [id number], [place] [address] Feb, [facility] [address] [facility] [id number], [place] [address] Jan, [facility] [address], [place] [address] Dec, [facility] [address] [facility] [id number], [place] [address] Dec, [facility] [address], [place] [address] Dec, [facility] [address], [place] [address] November, Dental examination Z01.20 and Periodontitis K05.30 [facility] [id number], [place] [address] November, [facility] [address], [place] [address] November, [facility] [id number], [place] [address] Oct, Encounter for Medicare annual wellness exam [...] hearing loss, unspecified hearing loss type H91.93 [facility] [address] [facility] [id number], [place] [address] Oct, [place] [address], [place] [address] Oct, [place] [id number] [place] [address] Sep, [place] [address] [place] [address] Aug, Anxiety F41.9 [place] [id number] [place] [address] Aug, Encounter for immunization Z23 [place] [id number] [place] [address] Jul, History of cerebrovascular accident with hemiparesis or hemiplegia Z86.73 ; Dementia with behavioral disturbance, unspecified dementia type F03.91 ; Hypothyroidism (acquired) E03.9 ; Type 2 diabetes mellitus with diabetic neuropathy, unspecified E11.40 and Non insulin dependent diabetes mellitus with ophthalmic complication E11.39 [place] [address] [place] [address] Jul, [place] [address] [place] [address] Jul, Type 2 diabetes mellitus with diabetic neuropathy, unspecified E11.40 ; Anxiety F41.9 ; Vascular dementia without behavioral disturbance F01.50 ; Moderate episode of recurrent major depressive disorder F33.1 ; Onychomycosis of great toe B35.1 ; Non insulin dependent diabetes mellitus with ophthalmic complication E11.39 and Type 2 diabetes mellitus with complication, without long-term current use of insulin E11.8 [place] [id number] [place] [address] Jun, Hypertension I10 ; Anxiety F41.9 ; Dementia with behavioral disturbance, unspecified dementia type F03.91 ; 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 ; Moderate episode of recurrent major depressive disorder F33.1 ; Encounter for immunization Z23 ; Skin lesion of left leg L98.9 ; BMI 28.0-28.9,adult Z68.28 and Other chronic pain G89.29 [facility] [address] [place] [address] May, Lymphadenopathy, axillary R59.0 [facility] [id number] [place] [address] May, [facility] [id number] [place] [address] Apr, [facility] [id number] [place] [address] Apr, [facility] [id number] [place] [address] Apr, [facility] [id number] [place] [address] Apr, [facility] [id number] [place] [address] Mar, Anxiety F41.9 ; Moderate episode of recurrent major depressive disorder F33.1 and Dementia with behavioral disturbance, unspecified dementia type F03.91 [facility] [id number] [place] [address] Mar, [facility] [id number] [place] [address] Mar, Diabetes E11.9 ; Hypothyroidism (acquired) E03.9 ; Hypertension I10 and Type 2 diabetes mellitus with diabetic neuropathy, unspecified E11.40 [facility] [id number] [place] [address] Jan, [facility] [id number] [place] [address] Dec, Anxiety F41.9 and Moderate episode of recurrent major depressive disorder F33.1 [facility] [id number] [place] [address] November, [facility] [id number] [place] [address] November, Chronic cough R05 and Cardiomegaly I51.7 [place] [address] [address] Oct, Medicare annual wellness visit, initial Z00.00 [...] seizures R56.1 and Encounter for immunization Z23 [place] [address] [address] Sep, [place] [address] [address] Jul, [place] [address] [address] Jul, [place] [address] [address] Jun, Anxiety F41.9 and Moderate episode of recurrent major depressive disorder F33.1 [place] [address] [address] Jun, Bronchitis J40 and Bilateral hearing loss, unspecified hearing loss type H91.93 [place] [address] [address] Jun, [place] [address] [address] Apr, [place] [address] [address] Apr, Encounter for immunization Z23 and Left breast mass N63.20 [place] [address] [address] Apr, [facility] [address] [place] [address] Mar, CVA (cerebral vascular accident) I63.9 ; Hypertension I10 ; Non insulin dependent diabetes mellitus with ophthalmic complication E11.39 ; Type 2 diabetes mellitus with diabetic neuropathy, unspecified E11.40 and Left breast mass N63 [facility] [id number] [place] [address] Mar, Mild episode of recurrent major depressive disorder F33.0 and Anxiety F41.9 [facility] [id number] [place] [address] Mar, Breast mass, left N63 [facility] [id number] [place] [address] Mar, Breast mass, left N63 [facility] [id number] [place] [address] Feb, [facility] [id number] [place] [address] Feb, [facility] [id number] [place] [address] Feb, [facility] [id number] [place] [address] Feb, [facility] [id number] [place] [address] Feb, Onychomycosis B35.1 and Type 2 diabetes mellitus with complication E11.8 [facility] [id number] [place] [address] Jan, Mild episode of recurrent major depressive disorder F33.0 and Anxiety F41.9 [facility] [id number] [place] [address] Jan, [facility] [id number] [place] [address] Dec, Onychomycosis due to dermatophyte B35.1 ; 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.1 ; Type 2 diabetes mellitus with diabetic neuropathy, unspecified E11.40 ; Falls frequently R29.6 ; Neuropathy G62.9 ; Dementia with behavioral disturbance, unspecified dementia type F03.91 ; Hypothyroidism (acquired) E03.9 and Left hand pain M79.642 [place] [address] [address] Dec, [facility] [address] [address] Dec, Hypothyroidism (acquired) E03.9 [place] [address] [address] Dec, Non insulin dependent diabetes mellitus with ophthalmic complication E11.39 [place] [address] [address] November, Hypothyroidism (acquired) E03.9 [facility] [id number] [place] [address] Oct, [facility] [address] [address] Oct, Non insulin dependent diabetes mellitus with ophthalmic complication E11.39 [place] [id number] [place] [address] Oct, [facility] [id number] [place] [address] Oct, Dysuria R30.0 ; Non insulin dependent diabetes mellitus with ophthalmic complication E11.39 ; Bilateral hearing loss, unspecified hearing loss type H91.93 and 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 [facility] [address] [address] Sep, [facility] [id number] [place] [address] Sep, Open wound of right great toe, initial encounter S91.101A [place] [address] [place] [address] 13 Sep, 2016 Breast mass, left N63 ; Non-insulin dependent type 2 diabetes mellitus E11.9 and Vascular dementia without behavioral disturbance F01.50 [place] [id number] [place] [address] Sep, [place] [address] [address] Jul, [place] [id number] [place] [address] Jul, Diabetes E11.9 ; Diaper dermatitis L22 ; Candidiasis of skin and nail B37.2 ; Neuropathy G62.9 ; Status post stroke Z86.73 ; Unsteadiness on feet R26.81 and 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 [place] [id number] [place] [address] May, [place] [id number] [place] [address] May, [place] [address] [address] May, [place] [id number] [place] [address] May, Dementia with behavioral disturbance, unspecified dementia type F03.91 [place] [id number] [place] [address] 16 May, 2016 Dementia with behavioral disturbance, unspecified dementia type F03.91 ; Encounter for immunization Z23 and Diabetes E11.9 [place] [id number] [place] [address] May, [place] [id number] [place] [address] May, Neuropathy G62.9 [place] [address] [address] May, [place] [address] [address] Apr, Hypothyroidism (acquired) E03.9 [place] [address] [address] Apr, CVA (cerebral vascular accident) I63.9 ; Left hand weakness M62.81 and Neuropathy G62.9 [place] [address] [address] Apr, Hypokalemia E87.6 [place] [address] [address] Apr, Hypokalemia E87.6 [place] [address] [address] Mar, Diabetes E11.9 ; Edema, unspecified type R60.9 ; Anxiety disorder, unspecified F41.9 ; Pain in left knee M25.562 ; Other chronic pain G89.29 and Status post stroke Z86.73 [place] [address] [address] Mar, [place] [address] [address] Mar, [place] [address] [address] Mar, Neuropathy G62.9 [place] [address] [address] Feb, Anorexia R63.0 and Neuropathy G62.9 [place] [address] [address] Jan, Diabetes E11.9 ; Neuropathy G62.9 ; Panic attack F41.0 ; Pain in left knee M25.562 and Hypertension 401.9 [place] [address] [address] Jan, Weakness R53.1 ; Fatigue, unspecified type R53.83 ; Falling episodes R29.6 and Neuropathy G62.9 [place] [id number] [place] [address] Jan, Pain in left knee M25.562 [facility] [id number] [place] [address] Jan, [facility] [address] [address] Jan, [facility] [address] [address] Jan, [place] [id number] [place] [address] Dec, Diabetes E11.9 ; Neuropathy G62.9 and Dementia F03.90 [place] [id number] [place] [address] Dec, [place] [id number] [place] [address] Dec, Neuropathy G62.9 ; Diabetes E11.9 ; Anxiety F41.9 and Constipation, unspecified constipation type K59.00 [place] [id number] [place] [address] Dec, [place] [id number] [place] [address] Dec, Anxiety F41.9 [place] [id number] [place] [address] November, [place] [address] [address] November, Pain in left knee M25.562 ; Other chronic pain G89.29 ; Diabetes E11.9 and Left eye pain H57.12 [place] [address] [address] November, [facility] [address], [place] [address] November, Hearing loss, unspecified laterality H91.90 [facility] [id number] [place] [address] November, [facility] [id number] [place] [address] November, [facility] [id number] [place] [address] November, Pain in right knee M25.561 [facility] [id number] [place] [address] November, [facility] [id number] [place] [address] Oct, [facility] [id number] [place] [address] Oct, [facility] [address] [place] [address] Oct, Edema of left lower extremity R60.0 ; Diabetes E11.9 ; 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 I63.39 and Anxiety disorder, unspecified F41.9 [facility] [address] [place] [address] 14 Oct, 2015 Panic attack F41.0 [facility] [id number] [place] [address] 14 Oct, 2015 [facility] [address] [place] [address] 13 Oct, 2015 CVA (cerebral vascular accident) I63.9 [facility] [address] [place] [address] Oct, [facility] [id number] [place] [address] Oct, Diabetes E11.9 ; Hypertension I10 and Dementia F03.90 [facility] [id number] [place] [address] Sep, [facility] [id number] [place] [address] Sep, [facility] [id number] [place] [address] Sep, Diabetes E11.9 ; 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 ; Onychomycosis B35.1 and Fatigue R53.83 [facility] [id number] [place] [address] Aug, [place] [id number] [place] [address] Aug, [facility] [id number] [place] [address] Jul, [facility] [id number] [place] [address] Jul, [facility] [id number] [place] [address] Jun, 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 [place] [id number] [place] [address] Jun, Anxiety disorder, unspecified F41.9 and Major depressive disorder, single episode, moderate F32.1 [facility] [id number] [place] [address] Jun, [facility] [id number] [place] [address] Jun, [facility] [id number] [place] [address] May, Left knee pain M25.562 [facility] [id number] [place] [address] May, [facility] [id number] [place] [address] May, [facility] [id number] [place] [address] May, [facility] [id number] [place] [address] May, Hypertension I10 ; Diabetes E11.9 and Depression F32.9 [facility] [id number] [place] [address] May, [facility] [address] [address] Apr, Left knee pain M25.562 ; Type 2 diabetes mellitus with complication E11.8 and Encounter for immunization Z23 [facility] [id number] [place] [address] Apr, [facility] [id number] [place] [address] Apr, [facility] [id number] [place] [address] Mar, [facility] [id number] [place] [address] Mar, Silvestre stanley 727.51 [facility] [id number] [place] [address] Mar, [facility] [id number] [place] [address] Mar, [facility] [id number] [place] [address] Mar, [facility] [id number] [place] [address] Feb, [facility] [id number] [place] [address] Feb, [facility] [address], [place] [address] Feb, Hypertension 401.9 and Diabetes 250.00 [facility] [address], [place] [address] Jan, [facility] [address] [address] Jan, Diabetes 250.00 [facility] [id number] [place] [address] Jan, [facility] [address] [place] [address] Jan, [facility] [address] [place] [address] Dec, Diabetes 250.00 and Forgetfulness 780.99 [facility] [id number] [place] [address] Dec, [facility] [address], [place] [address] Dec, Diabetes mellitus 250.00 [facility] [address], [place] [address] Dec, [facility] [address], [place] [address] Dec, [facility] [address], [place] [address] Dec, [facility] [address], [place] [address] Dec, Diabetes 250.00 and Dysthymia 300.4 [facility] [address], [place] [address] Dec, [facility] [address] [place] [address] Dec, Grief 309.0 and Diabetes mellitus 250.00 [facility] [address] [id number] [place] [address] Oct, [facility] [place] [facility] [address] [id number] [place] [address] Oct, [facility] [place] [facility] [address] [id number] [place] [address] Jul, [facility] [place] [facility] [address] [id number] [place] [address] Jul, [facility] [place] [facility] [address] [id number] [place] [address] Jul, [facility] [place] [facility] [address] [id number] [place] [address] Jul, [facility] [place] [facility] [address] [id number] [place] [address] Jul, [facility] [place] [facility] [address] [id number] [place] [address] May, [facility] [place] [facility] [address] [id number] [place] [address] May, [facility] [place] [facility] [address] [id number] [place] [address] Apr, [facility] [place] [facility] [address] [id number] [place] [address] Apr, [facility] [place] [facility] [address] [id number] [place] [address] Mar, [facility] [place] [facility] [address] [id number] [place] [address] Mar, [facility] [place] [facility] [address] [id number] [place] [address] Feb, [facility] [place] [facility] [address] [id number] [place] [address] Feb, [facility] [place] [facility] [address] [id number] [place] [address] Feb, [facility] [place] [facility] [address] [id number] [place] [address] Feb, [facility] [place] [facility] [address] [id number] [place] [address] Feb, [facility] [place] [facility] [address] [id number] [place] [address] Feb, [facility] [place] [facility] [address] [id number] [place] [address] November, [facility] [place] [facility] [address] [id number] [place] [address] November, [facility] [place] [facility] [address] [id number] [place] [address] Sep, [facility] [place] [facility] [address] [id number] [place] [address] Sep, [facility] [place] [facility] [address] [id number] [place] [address] Sep, [facility] [place] [facility] [address] [id number] [place] [address] Sep, [facility] [place] [facility] [address] [id number] [place] [address] Sep, [facility] [place] [facility] [address] [id number] [place] [address] Sep, [facility] [place] [facility] [address] [id number] [place] [address] Sep, [facility] [place] [facility] [address] [id number] [place] [address] Sep, [facility] [place] [facility] [address] [id number] [place] [address] Aug, [facility] [place] [facility] [address] [id number] [place] [address] Aug, [facility] [place] [facility] [address] [id number] [place] [address] Jul, [facility] [address] [id number] [place] [address] Jul, [facility] [place] [facility] [address] [id number] [place] [address] Jul, [facility] [address] [id number] [place] [address] Jul, [facility] [address] [id number] [place] [address] Jun, [facility] [address] [id number] [place] [address] Jun, [facility] [address] [id number] [place] [address] May, [facility] [address] [id number] [place] [address] May, [facility] [address] [id number] [place] [address] May, [facility] [address] [id number] [place] [address] May, [facility] [address] [id number] [place] [address] May, [facility] [place] [facility] [address] [id number] [place] [address] May, [facility] [address] [id number] [place] [address] Apr, [facility] [place] [facility] [address] [id number] [place] [address] Apr, [facility] [place] [facility] [address] [id number] [place] [address] Apr, [facility] [place] [facility] [address] [id number] [place] [address] Apr, [facility] [address] [id number] [place] [address] Mar, [facility] [place] [facility] [address] [id number] [place] [address] Mar, [facility] [address] [id number] [place] [address] Jan, [facility] [place] [facility] [address] [id number] [place] [address] Jan, [facility] [address] [id number] [place] [address] Jan, [facility] [place] [facility] [address] [id number] [place] [address] November, [facility] [address] [id number] [place] [address] November, [facility] [address] [id number] [place] [address] November, [facility] [address] [id number] [place] [address] November, [facility] [address] [id number] [place] [address] Aug, [facility] [address] [id number] [place] [address] Jul, [facility] [place] [facility] [address] [id number] [place] [address] Jul, [facility] [place] [facility] [address] [id number] [place] [address] Jul, [facility] [place] [facility] [address] [id number] [place] [address] Jun, [facility] [place] [facility] [address] [id number] [place] [address] Jun, [facility] [place] [facility] [address] [id number] [place] [address] May, [facility] [place] [facility] [address] [id number] [place] [address] May, [facility] [place] [facility] [address] [id number] [place] [address] Apr, [facility] [place] [facility] [address] [id number] [place] [address] Apr, [facility] [place] [facility] [address] [id number] [place] [address] Apr, [facility] [place] [facility] [address] [id number] [place] [address] Apr, [facility] [place] [facility] [address] [id number] [place] [address] Apr, [facility] [place] [facility] [address] [id number] [place] [address] Apr, [facility] [place] [facility] [address] [id number] [place] [address] Apr, [facility] [place] [facility] [address] [id number] [place] [address] Apr, [facility] [place] [facility] [address] [facility] [id number] [place] [address] Apr, [facility] [place] [facility] [address] [id number] [place] [address] Mar, [facility] [place] [facility] [address] [id number], [place] [address] Feb, [facility] [place] [facility] [address] [id number] [place] [address] November, [facility] [place] [facility] [address] [id number] [place] [address] November, [facility] [place] [facility] [address] [facility] [id number] [place] [address] November, [facility] [place] [facility] [address], [place] [address] November, [facility] [address], [place] [address] Jun, [facility] [address], [place] [address] Jun, [facility] [address], [place] [address] May, [facility] [id number], [place] [address] May, [facility] [id number] [place] [address] Apr, [facility] [address], [place] [address] Apr, [facility] [address], [place] [address] May, [facility] [address], [place] [address] Apr, [facility] [address], [place] [address] Apr, [facility] [address], [place] [address] Apr, [facility] [address] [place] [address] Apr, IMMUNIZATIONS No Known Immunizations SOCIAL HISTORY [...] Hospitalization History Post Stroke pt went to [facility] and then [facility] 10/15/15 Hospitalization History Hypotension, Wander ateral leg weakness--Via [facility] 01/15/16 Hospitalization History hypertension/chest pain 03/2017
--- OUTSIDE RECORDS SUMMARY | 2023-03-21 11:30 | XMS REPORT ---
Author Author Lady SIMMONS Organization [facility] Address [address] [place] [address] Care Team Providers Care Palaeontologist Name Role Phone OMI SIMMONS Unavailable PROBLEMS Type Condition ICD9-CM Code DQP01-BM Code Onset Dates Condition Status SNOMED Code Problem Panic attack F41.0 Active 500501809 Problem Hypertension I10 Active 00423851 Problem Anxiety F41.9 Active 09431840 Problem Other chronic pain G89.29 Active 54617 001 Problem Dementia with behavioral disturbance, unspecified dementia type F03.91 Active 2985401906285 Problem Hypothyroidism (acquired) E03.9 Active 421107605 Problem Vascular dementia without behavioral disturbance F01.50 Active 385009085 Problem 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 Active 493430253164 Problem Falls frequently R29.6 Active 3235514 02 Problem Type 2 diabetes mellitus with diabetic neuropathy, unspecified E11.40 Active 29408989 Problem Moderate episode of recurrent major depressive disorder F33.1 Active 03369214 1 Problem Cardiomegaly I51.7 Active 9219103 Problem 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 Active 343359237 Problem Diabetes E11.9 Active 198819167 Problem 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 Active 47804246 Problem History of cerebrovascular accident with hemiparesis or hemiplegia Z86.73 Active 062210201 Problem Bilateral hearing loss, unspecified hearing loss type H91.93 Active 06205188 Problem SNHL (sensory-neural hearing loss), 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 Active 790233112 Problem Left-sided muscle weakness M62.81 Active 014152835 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 18131017 ALLERGIES No Information ENCOUNTERS Encounter Location Date Diagnosis [facility] [address] [facility] [id number] [address] Jan, [facility] [id number] [address] Dec, [facility] [address] [address] Oct, [facility] [address] [address] Oct, [facility] [address] [address] Aug, [facility] [id number] [place] [address] Aug, [facility] [id number] [place] [address] Aug, [facility] [address] [address] Jul, 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 ; Type 2 diabetes mellitus with diabetic neuropathy, unspecified E11.40 ; Hypertension I10 and Physical debility R53.81 [facility] [address] [address] May, [facility] [address] [address] Apr, [facility] [address] [address] Mar, Type 2 diabetes mellitus with diabetic neuropathy, unspecified E11.40 ; Hypertension I10 ; Diabetes E11.9 ; Dementia with behavioral disturbance, unspecified dementia type F03.91 ; Type 2 diabetes mellitus with complication, without long-term current use of insulin E11.8 and Neck pain M54.2 [facility] [id number] [address] Mar, Dysuria R30.[address] [id number] [address] Feb, [facility] [id number] [address] Feb, [facility] [address], [place] [address] Jan, [facility] [id number] [place] [address] Dec, [facility] [address], [place] [address] Dec, [facility] [id number] [place] [address] Dec, [facility] [id number] [place] [address] November, Dental examination Z01.20 and Periodontitis K05.30 [facility] [id number] [place] [address] November, [facility] [id number] [place] [address] November, [facility] [address] [address] Oct, Encounter for Medicare annual wellness exam [...] unspecified hearing loss type H91.93 [facility] [address], [place] [address] Oct, [facility] [address], [place] [address] Oct, [facility] [address] [address] Sep, [address] [address] [id number] [place] [address] Aug, Anxiety F41.[address] [address] Aug, Encounter for immunization Z23 [id number] [place] [address] Jul, History of cerebrovascular accident with hemiparesis or hemiplegia Z86.73 ; Dementia with behavioral disturbance, unspecified dementia type F03.91 ; Hypothyroidism (acquired) E03.9 ; Type 2 diabetes mellitus with diabetic neuropathy, unspecified E11.40 and 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 [id number] [place] [address] Jul, [address] [address] Jul, Type 2 diabetes mellitus with diabetic neuropathy, unspecified E11.40 ; Anxiety F41.9 ; Vascular dementia without behavioral disturbance F01.50 ; Moderate episode of recurrent major depressive disorder F33.1 ; Onychomycosis of great toe B35.1 ; 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 and Type 2 diabetes mellitus with complication, without long-term current use of insulin E11.8 [place] [id number] [place] [address] Jun, Hypertension I10 ; Anxiety F41.9 ; Dementia with behavioral disturbance, unspecified dementia type F03.91 ; 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 ; Moderate episode of recurrent major depressive disorder F33.1 ; Encounter for immunization Z23 ; Skin lesion of left leg L98.9 ; BMI 28.0-28.9,adult Z68.28 and Other chronic pain G89.29 [address] [place] [address] May, Lymphadenopathy, axillary R59.0 [place] [address] [id number] [place] [address] May, [facility] [id number] [place] [address] Apr, [facility] [id number] [place] [address] Apr, [facility] [id number] [place] [address] Apr, [facility] [id number] [place] [address] Apr, [facility] [id number] [place] [address] Mar, Anxiety F41.9 ; Moderate episode of recurrent major depressive disorder F33.1 and Dementia with behavioral disturbance, unspecified dementia type F03.91 [place] [id number] [place] [address] Mar, [facility] [id number] [place] [address] Mar, Diabetes E11.9 ; Hypothyroidism (acquired) E03.9 ; Hypertension I10 and Type 2 diabetes mellitus with diabetic neuropathy, unspecified E11.40 [place] [id number] [place] [address] Jan, [facility] [id number] [place] [address] Dec, Anxiety F41.9 and Moderate episode of recurrent major depressive disorder F33.1 [place] [id number] [place] [address] November, [place] [id number] [place] [address] November, Chronic cough R05 and Cardiomegaly I51.7 [place] [address] [address] Oct, Medicare annual wellness visit, initial Z00.00 [...] seizures R56.1 and Encounter for immunization Z23 [place] [address] [address] Sep, [place] [address] [address] Jul, [place] [address] [address] Jul, [place] [address] [address] Jun, Anxiety F41.9 and Moderate episode of recurrent major depressive disorder F33.1 [place] [address] [address] Jun, Bronchitis J40 and Bilateral hearing loss, unspecified hearing loss type H91.93 [place] [address] [address] Jun, [place] [address] [address] Apr, [place] [address] [address] Apr, Encounter for immunization Z23 and Left breast mass N63.20 [place] [address] [address] Apr, [place] [address] [address] Mar, CVA (cerebral vascular accident) I63.9 ; Hypertension I10 ; 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 ; Type 2 diabetes mellitus with diabetic neuropathy, unspecified E11.40 and Left breast mass N63 [facility] [id number] [place] [address] Mar, Mild episode of recurrent major depressive disorder F33.0 and Anxiety F41.9 [facility] [id number] [place] [address] Mar, Breast mass, left N63 [facility] [id number] [place] [address] Mar, Breast mass, left N63 [facility] [id number] [place] [address] Feb, [facility] [id number] [place] [address] Feb, [facility] [id number] [place] [address] Feb, [facility] [id number] [place] [address] Feb, [facility] [id number] [place] [address] Feb, Onychomycosis B35.1 and Type 2 diabetes mellitus with complication E11.8 [facility] [id number] [place] [address] Jan, Mild episode of recurrent major depressive disorder F33.0 and Anxiety F41.9 [facility] [id number] [place] [address] Jan, [facility] [id number] [place] [address] Dec, Onychomycosis due to dermatophyte B35.1 ; 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.1 ; Type 2 diabetes mellitus with diabetic neuropathy, unspecified E11.40 ; Falls frequently R29.6 ; Neuropathy G62.9 ; Dementia with behavioral disturbance, unspecified dementia type F03.91 ; Hypothyroidism (acquired) E03.9 and Left hand pain M79.642 [facility] [id number] [place] [address] Dec, [facility] [id number] [place] [address] Dec, Hypothyroidism (acquired) E03.9 [facility] [address] [address] Dec, 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 [facility] [id number] [place] [address] November, Hypothyroidism (acquired) E03.9 [facility] [id number] [place] [address] Oct, [facility] [address] [address] Oct, 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 [facility] [id number] [place] [address] Oct, [facility] [id number] [place] [address] Oct, Dysuria R30.0 ; 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 ; Bilateral hearing loss, unspecified hearing loss type H91.93 and 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 [facility] [id number] [place] [address] Sep, [facility] [id number] [place] [address] Sep, Open wound of right great toe, initial encounter S91.101A [facility] [id number] [place] [address] Sep, Breast mass, left N63 ; Non-insulin dependent type 2 diabetes mellitus E11.9 and Vascular dementia without behavioral disturbance F01.50 [facility] [id number] [place] [address] Sep, [facility] [address] [address] Jul, [place] [id number] [place] [address] Jul, Diabetes E11.9 ; Diaper dermatitis L22 ; Candidiasis of skin and nail B37.2 ; Neuropathy G62.9 ; Status post stroke Z86.73 ; Unsteadiness on feet R26.81 and 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 [place] [address] [address] May, [place] [address] [address] May, [place] [address] [address] May, [place] [address] [address] May, Dementia with behavioral disturbance, unspecified dementia type F03.91 [place] [id number] [place] [address] May, Dementia with behavioral disturbance, unspecified dementia type F03.91 ; Encounter for immunization Z23 and Diabetes E11.9 [place] [id number] [place] [address] May, [place] [id number] [place] [address] May, Neuropathy G62.9 [facility] [id number] [place] [address] May, [place] [id number] [place] [address] Apr, Hypothyroidism (acquired) E03.9 [place] [address] [address] Apr, CVA (cerebral vascular accident) I63.9 ; Left hand weakness M62.81 and Neuropathy G62.9 [place] [address] [address] Apr, Hypokalemia E87.6 [place] [address] [address] Apr, Hypokalemia E87.6 [place] [address] [address] Mar, Diabetes E11.9 ; Edema, unspecified type R60.9 ; Anxiety disorder, unspecified F41.9 ; Pain in left knee M25.562 ; Other chronic pain G89.29 and Status post stroke Z86.73 [place] [address] [address] Mar, [place] [address] [address] Mar, [place] [address] [address] Mar, Neuropathy G62.9 [place] [address] [address] Feb, Anorexia R63.0 and Neuropathy G62.9 [place] [id number] [place] [address] Jan, Diabetes E11.9 ; Neuropathy G62.9 ; Panic attack F41.0 ; Pain in left knee M25.562 and Hypertension 401.9 [place] [address] [address] Jan, Weakness R53.1 ; Fatigue, unspecified type R53.83 ; Falling episodes R29.6 and Neuropathy G62.9 [place] [address] [address] Jan, Pain in left knee M25.562 [facility] [id number] [place] [address] Jan, [facility] [id number] [place] [address] Jan, [facility] [address] [address] Jan, [facility] [address] [address] Dec, Diabetes E11.9 ; Neuropathy G62.9 and Dementia F03.90 [facility] [address] [address] Dec, [facility] [address] [address] Dec, Neuropathy G62.9 ; Diabetes E11.9 ; Anxiety F41.9 and Constipation, unspecified constipation type K59.00 [facility] [id number] [place] [address] Dec, [facility] [id number] [place] [address] Dec, Anxiety F41.9 [facility] [id number] [place] [address] November, [facility] [id number] [place] [address] November, Pain in left knee M25.562 ; Other chronic pain G89.29 ; Diabetes E11.9 and Left eye pain H57.12 [facility] [id number] [place] [address] November, [facility] [id number] [place] [address] November, Hearing loss, unspecified laterality H91.90 [facility] [address] [place] [address] November, [facility] [id number] [place] [address] November, [facility] [id number] [place] [address] November, Pain in right knee M25.561 [facility] [id number] [place] [address] November, [facility] [id number] [place] [address] Oct, [facility] [id number] [place] [address] Oct, [facility] [id number] [place] [address] Oct, Edema of left lower extremity R60.0 ; Diabetes E11.9 ; 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 I63.39 and Anxiety disorder, unspecified F41.9 [facility] [address] [place] [address] Oct, Panic attack F41.0 [facility] [address] [place] [address] Oct, [facility] [id number] [place] [address] Oct, CVA (cerebral vascular accident) I63.9 [facility] [address] [address] Oct, [facility] [id number] [place] [address] Oct, Diabetes E11.9 ; Hypertension I10 and Dementia F03.90 [facility] [address] [address] Sep, [facility] [id number] [place] [address] Sep, [facility] [id number] [place] [address] Sep, Diabetes E11.9 ; 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 ; Onychomycosis B35.1 and Fatigue R53.83 [facility] [id number] [place] [address] Aug, [facility] [id number] [place] [address] Aug, [facility] [id number] [place] [address] Jul, [facility] [id number] [place] [address] Jul, [facility] [id number] [place] [address] Jun, 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 [facility] [id number] [place] [address] Jun, Anxiety disorder, unspecified F41.9 and Major depressive disorder, single episode, moderate F32.1 [facility] [id number] [place] [address] Jun, [facility] [id number] [place] [address] Jun, [facility] [id number] [place] [address] 24 May, 2015 Left knee pain M25.562 [facility] [id number] [place] [address] 16 May, 2015 [facility] [id number] [place] [address] May, [facility] [id number] [place] [address] May, [facility] [id number] [place] [address] May, Hypertension I10 ; Diabetes E11.9 and Depression F32.9 [facility] [id number] [place] [address] May, [facility] [id number] [place] [address] Apr, Left knee pain M25.562 ; Type 2 diabetes mellitus with complication E11.8 and Encounter for immunization Z23 [facility] [id number] [place] [address] Apr, [facility] [id number] [place] [address] Apr, [facility] [id number] [place] [address] Mar, [facility] [id number] [place] [address] Mar, Bakers cyst 727.51 [facility] [id number] [place] [address] Mar, [facility] [id number] [place] [address] Mar, [facility] [id number] [place] [address] Mar, [facility] [id number] [place] [address] Feb, [facility] [id number] [place] [address] Feb, [facility] [id number] [place] [address] Feb, Hypertension 401.9 and Diabetes 250.00 [facility] [id number] [place] [address] Jan, [facility] [id number] [address] Jan, Diabetes 250.00 [facility] [address] [address] Jan, [facility] [address] [address] Jan, [facility] [id number] [place] [address] Dec, Diabetes 250.00 and Forgetfulness 780.99 [facility] [id number] [place] [address] Dec, [facility] [address] [address] Dec, Diabetes mellitus 250.00 [facility] [id number] [place] [address] Dec, [facility] [address] [address] Dec, [facility] [address] [address] Dec, [facility] [address] [address] Dec, Diabetes 250.00 and Dysthymia 300.4 [facility] [address] [address] Dec, [facility] [id number] [address] 09 Dec, 2014 Grief 309.0 and Diabetes mellitus 250.00 [facility] [address] [address] 14 Oct, 2014 [facility] [id number] [address] Oct, [facility] [place] [facility] [address] [id number] [place] [address] Jul, [facility] [place] [facility] [address] [id number] [place] [address] Jul, [facility] [place] [facility] [address] [id number] [place] [address] Jul, [facility] [place] [facility] [address] [id number] [place] [address] Jul, [facility] [place] [facility] [address] [id number] [place] [address] Jul, [facility] [place] [facility] [address] [id number] [place] [address] May, [facility] [place] [facility] [address] [id number] [place] [address] May, [facility] [place] [facility] [address] [id number] [place] [address] Apr, [facility] [place] [facility] [address] [id number] [place] [address] Apr, [facility] [place] [facility] [address] [id number] [place] [address] Mar, [facility] [place] [facility] [address] [id number] [place] [address] Mar, [facility] [place] [facility] [address] [id number] [place] [address] Feb, [facility] [place] [facility] [address] [id number] [place] [address] Feb, [facility] [place] [facility] [address] [id number] [place] [address] Feb, [facility] [place] [facility] [address] [id number] [place] [address] Feb, [facility] [place] [facility] [address] [id number] [place] [address] Feb, [facility] [place] [facility] [address] [id number] [place] [address] Feb, [facility] [place] [facility] [address] [id number] [place] [address] November, [facility] [place] [facility] [address] [id number] [place] [address] November, [facility] [place] [facility] [address] [id number] [place] [address] Sep, [facility] [place] [facility] [address] [id number] [place] [address] Sep, [facility] [place] [facility] [address] [id number] [place] [address] Sep, [facility] [place] [facility] [address] [id number] [place] [address] Sep, [facility] [place] [facility] [address] [id number] [place] [address] Sep, [facility] [place] [facility] [address] [id number] [place] [address] Sep, [facility] [place] [facility] [address] [id number] [place] [address] Sep, [facility] [place] [facility] [address] [id number] [place] [address] Sep, [facility] [place] [facility] [address] [id number] [place] [address] Aug, [facility] [place] [facility] [address] [id number] [place] [address] Aug, [facility] [place] [facility] [address] [id number] [place] [address] Jul, [facility] [place] [facility] [address] [id number] [place] [address] Jul, [facility] [place] [facility] [address] [id number] [place] [address] Jul, [facility] [address] [id number] [place] [address] Jul, [facility] [address] [id number] [place] [address] Jun, [facility] [address] [id number] [place] [address] Jun, [facility] [place] [facility] [address] [id number] [place] [address] May, [facility] [address] [id number] [place] [address] May, [facility] [address] [id number] [place] [address] May, [facility] [address] [id number] [place] [address] May, [facility] [address] [id number] [place] [address] May, [facility] [address] [id number] [place] [address] May, [facility] [address] [id number] [place] [address] Apr, [facility] [place] [facility] [address] [id number] [place] [address] Apr, [facility] [address] [id number] [place] [address] Apr, [facility] [place] [facility] [address] [id number] [place] [address] 16 Apr, 2013 [facility] [place] [facility] [address] [id number] [place] [address] 27 Mar, 2013 [facility] [place] [facility] [address] [id number] [place] [address] Mar, [facility] [address] [id number] [place] [address] Jan, [facility] [address] [id number] [place] [address] Jan, [facility] [address] [id number] [place] [address] Jan, [facility] [address] [id number] [place] [address] November, [facility] [address] [id number] [place] [address] November, [facility] [address] [id number] [place] [address] November, [facility] [address] [id number] [place] [address] November, [facility] [address] [id number] [place] [address] Aug, [facility] [address] [id number] [place] [address] Jul, [facility] [address] [id number] [place] [address] Jul, [facility] [address] [id number] [place] [address] Jul, [facility] [address] [id number] [place] [address] Jun, [facility] [place] [facility] [address] [id number] [place] [address] Jun, [facility] [place] [facility] [address] [id number] [place] [address] May, [facility] [place] [facility] [address] [id number] [place] [address] May, [facility] [place] [facility] [address] [id number] [place] [address] Apr, [facility] [place] [facility] [address] [id number] [place] [address] Apr, [facility] [place] [facility] [address] [id number] [place] [address] Apr, [facility] [place] [facility] [address] [id number] [place] [address] Apr, [facility] [place] [facility] [address] [id number] [place] [address] Apr, [facility] [place] [facility] [address] [id number] [place] [address] Apr, [facility] [place] [facility] [address] [id number] [place] [address] Apr, [facility] [place] [facility] [address] [id number] [place] [address] Apr, [facility] [place] [facility] [address] [id number] [place] [address] Apr, [facility] [place] [facility] [address] [id number] [place] [address] Mar, [facility] [place] [facility] [address] [id number] [place] [address] Feb, [facility] [place] [facility] [address] [id number] [place] [address] November, [facility] [place] [facility] [address] [id number] [place] [address] November, [facility] [place] [facility] [address] [id number] [place] [address] November, [facility] [place] [facility] [address] [id number] [place] [address] November, [facility] [place] [facility] [address] [id number] [place] [address] Jun, [facility] [place] [facility] [id number] [address] Jun, [facility] [id number] [address] May, [facility] [id number] [address] May, [facility] [id number] [address] Apr, [facility] [id number] [address] Apr, [facility] [id number] [place] [address] May, [facility] [id number] [address] Apr, [facility] [address] [id number] [address] Apr, [facility] [id number] [address] Apr, [facility] [id number] [address] Apr, IMMUNIZATIONS No Known Immunizations SOCIAL HISTORY Never Assessed REASON FOR VISIT PLAN OF CARE VITAL SIGNS Height 62 in 2013-04-28 Weight 202.4 lbs 2013-04-28 Temperature 97.4 degrees Fahrenheit Heart Rate 60 bpm 2013-04-28 Respiratory Rate 18 2013-04-28 Blood pressure systolic 170 mmHg Blood pressure diastolic 80 mmHg 2013-04 MEDICATIONS Unknown Medications RESULTS No Results PROCEDURES Procedure Date Ordered Result Body Site ADMN FLU VAC NO FEE SCHED SAME DAY Apr 28, 2013 GLYCATED HEMOGLOBIN TEST Apr 28, 2013 INSTRUCTIONS MEDICATIONS ADMINISTERED No Known Medications [...] Hospitalization History Post Stroke pt went to [facility] and then [facility] 10/15/15 Hospitalization History Hypotension, Wander ateral leg weakness--[facility] 01/15/16 Hospitalization History hypertension/chest pain 03/2017
--- OUTSIDE RECORDS SUMMARY | 2023-03-21 11:30 | XMS REPORT ---
Author Author Lady SIMMONS Organization [facility] C Address [address] [place] [address] Care Team Providers Care Lead Sprinkler Name Role Phone OMI SIMMONS Unavailable PROBLEMS Type Condition ICD9-CM Code DAB76-DA Code Onset Dates Condition Status SNOMED Code Problem Panic attack F41.0 Active 210066578 Problem Hypertension I10 Active 29903273 Problem Anxiety F41.9 Active 76143872 Problem Other chronic pain G89.29 Active 83328 001 Problem Dementia with behavioral disturbance, unspecified dementia type F03.91 Active 9406472292270 Problem Hypothyroidism (acquired) E03.9 Active 126091999 Problem Vascular dementia without behavioral disturbance F01.50 Active 359679441 Problem 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 Active 909704118913 Problem Falls frequently R29.6 Active 4634891 02 Problem Type 2 diabetes mellitus with diabetic neuropathy, unspecified E11.40 Active 57183271 Problem Moderate episode of recurrent major depressive disorder F33.1 Active 34841889 1 Problem Cardiomegaly I51.7 Active 3351740 Problem 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 Active 255999450 Problem Diabetes E11.9 Active 678219609 Problem 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 Active 33665172 Problem History of cerebrovascular accident with hemiparesis or hemiplegia Z86.73 Active 717081189 Problem Bilateral hearing loss, unspecified hearing loss type H91.93 Active 56674071 Problem SNHL (sensory-neural hearing loss), 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 Active 063442364 Problem Left-sided muscle weakness M62.81 Active 351715084 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 52015256 ALLERGIES No Information ENCOUNTERS Encounter Location Date Diagnosis [facility] [address] [facility] [id number] [address] Jan, [facility] [id number] [address] Jan, [facility] [address], [place] [address] Dec, [facility] [address], [place] [address] Oct, [facility] [address], [place] [address] Oct, [facility] [address] [place] [address] Aug, [facility] [address] [place] [address] Aug, [facility] [address] [address] Aug, [facility] [address] [place] [address] Jul, Non insulin dependent diabetes mellitus with ophthalmic complication E11.39 ; Type 2 diabetes mellitus with diabetic neuropathy, unspecified E11.40 ; Hypertension I10 and Physical debility R53.81 [facility] [address] [place] [address] May, [facility] [address], [place] [address] Apr, [facility] [address] [address] Mar, Type 2 diabetes mellitus with diabetic neuropathy, unspecified E11.40 ; Hypertension I10 ; Diabetes E11.9 ; Dementia with behavioral disturbance, unspecified dementia type F03.91 ; Type 2 diabetes mellitus with complication, without long-term current use of insulin E11.8 and Neck pain M54.2 [facility] [id number] [address] Mar, Dysuria R30.[address] [id number] [address] Feb, [facility] [address], [place] [address] Feb, [facility] [address] [place] [address] Jan, [facility] [address] [place] [address] Dec, [facility] [id number] [place] [address] Dec, [facility] [id number] [place] [address] Dec, [facility] [id number] [place] [address] November, Dental examination Z01.20 and Periodontitis K05.30 [place] [id number] [place] [address] November, [facility] [id number] [place] [address] November, [facility] [id number] [place] [address] Oct, Encounter for Medicare annual wellness exam [...] hearing loss, unspecified hearing loss type H91.93 [facility] [address], [place] [address] Oct, [facility] [address], [place] [address] Oct, [place] [address] [place] [address] Sep, [place] [id number] [place] [address] Aug, Anxiety F41.9 [place] [id number] [place] [address] Aug, Encounter for immunization Z23 [address] [address] Jul, History of cerebrovascular accident with hemiparesis or hemiplegia Z86.73 ; Dementia with behavioral disturbance, unspecified dementia type F03.91 ; Hypothyroidism (acquired) E03.9 ; Type 2 diabetes mellitus with diabetic neuropathy, unspecified E11.40 and 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 [id number] [place] [address] Jul, [place] [id number] [place] [address] Jul, Type 2 diabetes mellitus with diabetic neuropathy, unspecified E11.40 ; Anxiety F41.9 ; Vascular dementia without behavioral disturbance F01.50 ; Moderate episode of recurrent major depressive disorder F33.1 ; Onychomycosis of great toe B35.1 ; 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 and Type 2 diabetes mellitus with complication, without long-term current use of insulin E11.8 [address] [place] [address] Jun, Hypertension I10 ; Anxiety F41.9 ; Dementia with behavioral disturbance, unspecified dementia type F03.91 ; 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 ; Moderate episode of recurrent major depressive disorder F33.1 ; Encounter for immunization Z23 ; Skin lesion of left leg L98.9 ; BMI 28.0-28.9,adult Z68.28 and Other chronic pain G89.29 [address] [place] [address] May, Lymphadenopathy, axillary R59.0 [facility] [id number] [place] [address] May, [facility] [id number] [place] [address] Apr, [facility] [id number] [place] [address] Apr, [facility] [address] [address] Apr, [facility] [id number] [place] [address] Apr, [facility] [address] [address] Mar, Anxiety F41.9 ; Moderate episode of recurrent major depressive disorder F33.1 and Dementia with behavioral disturbance, unspecified dementia type F03.91 [place] [id number] [place] [address] Mar, [facility] [id number] [place] [address] Mar, Diabetes E11.9 ; Hypothyroidism (acquired) E03.9 ; Hypertension I10 and Type 2 diabetes mellitus with diabetic neuropathy, unspecified E11.40 [place] [id number] [place] [address] Jan, [facility] [id number] [place] [address] Dec, Anxiety F41.9 and Moderate episode of recurrent major depressive disorder F33.1 [place] [id number] [place] [address] November, [facility] [id number] [place] [address] November, Chronic cough R05 and Cardiomegaly I51.7 [facility] [id number] [place] [address] Oct, Medicare annual wellness visit, initial Z00.00 [...] seizures R56.1 and Encounter for immunization Z23 [place] [address] [address] Sep, [place] [address] [address] Jul, [place] [address] [address] Jul, [place] [address] [address] Jun, Anxiety F41.9 and Moderate episode of recurrent major depressive disorder F33.1 [place] [address] [address] Jun, Bronchitis J40 and Bilateral hearing loss, unspecified hearing loss type H91.93 [place] [address] [address] Jun, [place] [address] [address] Apr, [place] [address] [address] Apr, Encounter for immunization Z23 and Left breast mass N63.20 [place] [address] [address] Apr, [place] [address] [address] Mar, CVA (cerebral vascular accident) I63.9 ; Hypertension I10 ; 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 ; Type 2 diabetes mellitus with diabetic neuropathy, unspecified E11.40 and Left breast mass N63 [facility] [id number] [place] [address] Mar, Mild episode of recurrent major depressive disorder F33.0 and Anxiety F41.9 [facility] [id number] [place] [address] Mar, Breast mass, left N63 [facility] [id number] [place] [address] Mar, Breast mass, left N63 [facility] [id number] [place] [address] Feb, [facility] [id number] [place] [address] Feb, [facility] [id number] [place] [address] Feb, [facility] [id number] [place] [address] Feb, [facility] [id number] [place] [address] Feb, Onychomycosis B35.1 and Type 2 diabetes mellitus with complication E11.8 [facility] [id number] [place] [address] Jan, Mild episode of recurrent major depressive disorder F33.0 and Anxiety F41.9 [facility] [id number] [place] [address] Jan, [facility] [id number] [place] [address] Dec, Onychomycosis due to dermatophyte B35.1 ; Moderate episode of recurrent major depressive disorder F33.1 ; Type 2 diabetes mellitus with diabetic neuropathy, unspecified E11.40 ; Falls frequently R29.6 ; Neuropathy G62.9 ; Dementia with behavioral disturbance, unspecified dementia type F03.91 ; Hypothyroidism (acquired) E03.9 and Left hand pain M79.642 [facility] [id number] [place] [address] Dec, [facility] [address] [address] Dec, Hypothyroidism (acquired) E03.9 [facility] [id number] [place] [address] Dec, 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 [place] [id number] [place] [address] November, Hypothyroidism (acquired) E03.9 [facility] [address] [address] Oct, [facility] [id number] [place] [address] Oct, 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 [place] [id number] [place] [address] Oct, [facility] [id number] [place] [address] Oct, Dysuria R30.0 ; 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 ; Bilateral hearing loss, unspecified hearing loss type H91.93 and 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 [facility] [id number] [place] [address] Sep, [facility] [id number] [place] [address] Sep, Open wound of right great toe, initial encounter S91.101A [place] [address] [address] Sep, Breast mass, left N63 ; Non-insulin dependent type 2 diabetes mellitus E11.9 and Vascular dementia without behavioral disturbance F01.50 [place] [address] [address] Sep, [place] [address] [place] [address] Jul, [place] [address] [address] Jul, Diabetes E11.9 ; Diaper dermatitis L22 ; Candidiasis of skin and nail B37.2 ; Neuropathy G62.9 ; Status post stroke Z86.73 ; Unsteadiness on feet R26.81 and 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 [place] [address] [place] [address] May, [place] [address] [address] May, [place] [address] [place] [address] May, [place] [address] [address] May, Dementia with behavioral disturbance, unspecified dementia type F03.91 [place] [id number] [place] [address] May, Dementia with behavioral disturbance, unspecified dementia type F03.91 ; Encounter for immunization Z23 and Diabetes E11.9 [place] [id number] [place] [address] May, [place] [address] [address] May, Neuropathy G62.9 [place] [id number] [place] [address] May, [place] [address] [address] Apr, Hypothyroidism (acquired) E03.9 [place] [id number] [place] [address] Apr, CVA (cerebral vascular accident) I63.9 ; Left hand weakness M62.81 and Neuropathy G62.9 [place] [address] [place] [address] Apr, Hypokalemia E87.6 [place] [address] [address] Apr, Hypokalemia E87.6 [place] [address] [address] Mar, Diabetes E11.9 ; Edema, unspecified type R60.9 ; Anxiety disorder, unspecified F41.9 ; Pain in left knee M25.562 ; Other chronic pain G89.29 and Status post stroke Z86.73 [place] [address] [place] [address] Mar, [place] [address] [address] Mar, [place] [address] [place] [address] Mar, Neuropathy G62.9 [place] [address] [place] [address] Feb, Anorexia R63.0 and Neuropathy G62.9 [place] [address] [place] [address] Jan, Diabetes E11.9 ; Neuropathy G62.9 ; Panic attack F41.0 ; Pain in left knee M25.562 and Hypertension 401.9 [place] [address] [place] [address] Jan, Weakness R53.1 ; Fatigue, unspecified type R53.83 ; Falling episodes R29.6 and Neuropathy G62.9 [facility] [address] [place] [address] Jan, Pain in left knee M25.562 [facility] [id number] [place] [address] Jan, [facility] [id number] [place] [address] Jan, [facility] [address] [address] Jan, [facility] [address] [address] Dec, Diabetes E11.9 ; Neuropathy G62.9 and Dementia F03.90 [facility] [address] [address] Dec, [facility] [address] [address] Dec, Neuropathy G62.9 ; Diabetes E11.9 ; Anxiety F41.9 and Constipation, unspecified constipation type K59.00 [facility] [address] [place] [address] Dec, [facility] [address] [place] [address] Dec, Anxiety F41.9 [facility] [address] [place] [address] November, [facility] [address] [place] [address] November, Pain in left knee M25.562 ; Other chronic pain G89.29 ; Diabetes E11.9 and Left eye pain H57.12 [facility] [address] [place] [address] November, [facility] [address] [address] November, Hearing loss, unspecified laterality H91.90 [facility] [address] [place] [address] November, [facility] [address] [place] [address] November, [facility] [address] [place] [address] November, Pain in right knee M25.561 [facility] [id number] [place] [address] November, [facility] [address] [place] [address] Oct, [facility] [id number] [place] [address] Oct, [facility] [id number] [place] [address] Oct, Edema of left lower extremity R60.0 ; Diabetes E11.9 ; 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 I63.39 and Anxiety disorder, unspecified F41.9 [facility] [id number] [place] [address] Oct, Panic attack F41.0 [facility] [id number] [place] [address] Oct, [facility] [id number] [place] [address] Oct, CVA (cerebral vascular accident) I63.9 [facility] [id number] [place] [address] Oct, [facility] [address] [place] [address] Oct, Diabetes E11.9 ; Hypertension I10 and Dementia F03.90 [facility] [address] [place] [address] 30 Sep, 2015 [facility] [id number] [place] [address] Sep, [facility] [address] [place] [address] Sep, Diabetes E11.9 ; 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 ; Onychomycosis B35.1 and Fatigue R53.83 [facility] [id number] [place] [address] Aug, [facility] [id number] [place] [address] Aug, [facility] [id number] [place] [address] Jul, [place] [id number] [place] [address] Jul, [facility] [address] [place] [address] Jun, 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 [place] [address] [place] [address] Jun, Anxiety disorder, unspecified F41.9 and Major depressive disorder, single episode, moderate F32.1 [place] [id number] [place] [address] Jun, [facility] [id number] [place] [address] Jun, [facility] [id number] [place] [address] 24 May, 2015 Left knee pain M25.562 [facility] [id number] [place] [address] 16 May, 2015 [facility] [id number] [place] [address] May, [facility] [id number] [place] [address] May, [facility] [id number] [place] [address] May, Hypertension I10 ; Diabetes E11.9 and Depression F32.9 [facility] [address] [address] May, [facility] [id number] [place] [address] Apr, Left knee pain M25.562 ; Type 2 diabetes mellitus with complication E11.8 and Encounter for immunization Z23 [facility] [id number] [place] [address] Apr, [facility] [id number] [place] [address] Apr, [facility] [id number] [place] [address] Mar, [facility] [id number] [place] [address] Mar, Silvestre stanley 727.51 [facility] [id number] [place] [address] Mar, [facility] [id number] [place] [address] Mar, [facility] [id number] [place] [address] Mar, [facility] [id number] [place] [id number] Feb, [facility] [id number] [place] [id number] Feb, [facility] [id number] [place] [id number] Feb, Hypertension 401.9 and Diabetes 250.00 [facility] [address], [place] [address] Jan, [facility] [id number] [address] Jan, Diabetes 250.00 [facility] [id number], [place] [address] Jan, [facility] [id number] [place] [id number] Jan, [facility] [id number], [place] [address] Dec, Diabetes 250.00 and Forgetfulness 780.99 [facility] [id number] [address] Dec, [facility] [id number] [place] [id number] Dec, Diabetes mellitus 250.00 [facility] [id number] [address] Dec, [facility] [id number] [address] Dec, [facility] [id number], [place] [address] Dec, [facility] [id number] [place] [address] Dec, Diabetes 250.00 and Dysthymia 300.4 [facility] [address] [address] Dec, [facility] [id number] [place] [address] Dec, Grief 309.0 and Diabetes mellitus 250.00 [facility] [address] [address] Oct, [facility] [place] [facility] [address] [id number] [place] [address] Oct, [facility] [place] [facility] [address] [id number] [place] [address] Jul, [facility] [place] [facility] [address] [id number] [place] [address] Jul, [facility] [place] [facility] [address] [id number] [place] [address] Jul, [facility] [place] [facility] [address] [id number] [place] [address] Jul, [facility] [place] [facility] [address] [id number] [place] [address] Jul, [facility] [place] [facility] [address] [id number] [place] [address] May, [facility] [place] [facility] [address] [id number] [place] [address] May, [facility] [place] [facility] [address] [id number] [place] [address] Apr, [facility] [place] [facility] [address] [id number] [place] [address] Apr, [facility] [place] [facility] [address] [id number] [place] [address] Mar, [facility] [place] [facility] [address] [id number] [place] [address] Mar, [facility] [place] [facility] [address] [id number] [place] [address] Feb, [facility] [place] [facility] [address] [id number] [place] [address] Feb, [facility] [place] [facility] [address] [id number] [place] [address] Feb, [facility] [place] [facility] [address] [id number] [place] [address] Feb, [facility] [place] [facility] [address] [id number] [place] [address] Feb, [facility] [place] [facility] [address] [id number] [place] [address] Feb, [facility] [place] [facility] [address] [id number] [place] [address] November, [facility] [place] [facility] [address] [id number] [place] [address] November, [facility] [place] [facility] [address] [id number] [place] [address] Sep, [facility] [place] [facility] [address] [id number] [place] [address] Sep, [facility] [place] [facility] [address] [id number] [place] [address] Sep, [facility] [place] [facility] [address] [id number] [place] [address] Sep, [facility] [place] [facility] [address] [id number] [place] [address] Sep, [facility] [place] [facility] [address] [id number] [place] [address] Sep, [facility] [place] [facility] [address] [id number] [place] [address] Sep, [facility] [place] [facility] [address] [id number] [place] [address] Sep, [facility] [place] [facility] [address] [id number] [place] [address] Aug, [facility] [place] [facility] [address] [id number] [place] [address] Aug, [facility] [place] [facility] [address] [id number] [place] [address] Jul, [facility] [place] [facility] [address] [id number] [place] [address] Jul, [facility] [address] [id number] [place] [address] Jul, [facility] [place] [facility] [address] [id number] [place] [address] Jul, [facility] [address] [id number] [place] [address] Jun, [facility] [address] [id number] [place] [address] Jun, [facility] [address] [id number] [place] [address] May, [facility] [address] [id number] [place] [address] May, [facility] [address] [id number] [place] [address] May, [facility] [address] [id number] [place] [address] May, [facility] [address] [id number] [place] [address] May, [facility] [address] [id number] [place] [address] May, [facility] [place] [facility] [address] [id number] [place] [address] Apr, [facility] [address] [id number] [place] [address] Apr, [facility] [place] [facility] [address] [id number] [place] [address] Apr, [facility] [place] [facility] [address] [id number] [place] [address] Apr, [facility] [place] [facility] [address] [id number] [place] [address] Mar, [facility] [address] [id number] [place] [address] Mar, [facility] [address] [id number] [place] [address] Jan, [facility] [address] [id number] [place] [address] Jan, [facility] [address] [id number] [place] [address] Jan, [facility] [address] [id number] [place] [address] November, [facility] [address] [id number] [place] [address] November, [facility] [address] [id number] [place] [address] November, [facility] [address] [id number] [place] [address] November, [facility] [address] [id number] [place] [address] Aug, [facility] [address] [id number] [place] [address] Jul, [facility] [address] [id number] [place] [address] Jul, [facility] [address] [id number] [place] [address] Jul, [facility] [place] [facility] [address] [id number] [place] [address] Jun, [facility] [place] [facility] [address] [id number] [place] [address] Jun, [facility] [place] [facility] [address] [id number] [place] [address] May, [facility] [place] [facility] [address] [id number] [place] [address] May, [facility] [place] [facility] [address] [id number] [place] [address] Apr, [facility] [place] [facility] [address] [id number] [place] [address] Apr, [facility] [place] [facility] [address] [id number] [place] [address] Apr, [facility] [place] [facility] [address] [id number] [place] [address] Apr, [facility] [place] [facility] [address] [id number] [place] [address] Apr, [facility] [place] [facility] [address] [id number] [place] [address] Apr, [facility] [place] [facility] [address] [id number] [place] [address] Apr, [facility] [place] [facility] [address] [id number] [place] [address] Apr, [facility] [place] [facility] [address] [id number] [place] [address] Apr, [facility] [place] [facility] [address] [id number] [place] [address] Mar, [facility] [place] [facility] [address] [id number] [place] [address] Feb, [facility] [place] [facility] [address] [id number], [place] [address] November, [facility] [place] [facility] [address] [id number] [place] [address] November, [facility] [place] [facility] [address] [id number] [place] [address] November, [facility] [place] [facility] [address] [facility] [id number] [place] [address] November, [facility] [place] [facility] [address], [place] [address] Jun, [facility] [address] [address] Jun, [facility] [address] [facility] [id number], [place] [address] May, [facility] [address] [address] May, [facility] [address] [facility] [id number], [place] [address] Apr, [facility] [address] [address] Apr, [facility] [address] [address] May, [facility] [address] [address] Apr, [facility] [address] [address] Apr, [facility] [address], [place] [address] Apr, [facility] [id number] [address] Apr, IMMUNIZATIONS No Known Immunizations SOCIAL HISTORY [...] Hospitalization History Post Stroke pt went to [facility] and then [facility] 10/15/15 Hospitalization History Hypotension, Wander ateral leg weakness--Via [facility] 01/15/16 Hospitalization History hypertension/chest pain 03/2017
--- OUTSIDE RECORDS SUMMARY | 2023-03-21 11:30 | XMS REPORT ---
Author Author Lady SIMMONS Organization [facility] Address [address] [place] [address] Care Team Providers Care Fire Support Man Name Role Phone OMI SIMMONS Unavailable PROBLEMS Type Condition ICD9-CM Code [id number] Code Onset Dates Condition Status SNOMED Code Problem Panic attack F41.0 Active 950380558 Problem Hypertension I10 Active 50734888 Problem Anxiety F41.9 Active 33214983 Problem Other chronic pain G89.29 Active 27562 001 Problem Dementia with behavioral disturbance, unspecified dementia type F03.91 Active 3382545482592 Problem Hypothyroidism (acquired) E03.9 Active 731645071 Problem Vascular dementia without behavioral disturbance F01.50 Active 120274916 Problem 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 Active 762622756545 Problem Falls frequently R29.6 Active 1874403 02 Problem Type 2 diabetes mellitus with diabetic neuropathy, unspecified E11.40 Active 71075566 Problem Moderate episode of recurrent major depressive disorder F33.1 Active 64985561 1 Problem Cardiomegaly I51.7 Active 4089516 Problem 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 Active 209381380 Problem Diabetes E11.9 Active 315507161 Problem 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 Active 14565717 Problem History of cerebrovascular accident with hemiparesis or hemiplegia Z86.73 Active 877026122 Problem Bilateral hearing loss, unspecified hearing loss type H91.93 Active 82396222 Problem SNHL (sensory-neural hearing loss), 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 Active 250189047 Problem Left-sided muscle weakness M62.81 Active 693022625 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 56701164 ALLERGIES No Information ENCOUNTERS Encounter Location Date Diagnosis [facility] [address] [facility] [id number] [address] Jan, [facility] [id number] [address] Jan, [facility] [address] [address] Dec, [facility] [address] [address] Oct, [facility] [address] [address] Oct, [facility] [id number] [place] [address] Aug, [facility] [id number] [place] [address] Aug, [facility] [address] [address] Aug, [facility] [address] [place] [address] Jul, 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.39 ; Type 2 diabetes mellitus with diabetic neuropathy, unspecified E11.40 ; Hypertension I10 and Physical debility R53.81 [facility] [id number] [place] [address] May, [facility] [address] [address] Apr, [facility] [address] [address] Mar, Type 2 diabetes mellitus with diabetic neuropathy, unspecified E11.40 ; Hypertension I10 ; Diabetes E11.9 ; Dementia with behavioral disturbance, unspecified dementia type F03.91 ; Type 2 diabetes mellitus with complication, without long-term current use of insulin E11.8 and Neck pain M54.2 [facility] [id number] [address] Mar, Dysuria R30.[address] [id number] [address] Feb, [facility] [address], [place] [address] Feb, [facility] [id number] [place] [address] Jan, [facility] [id number] [place] [address] Dec, [facility] [id number] [place] [address] Dec, [facility] [id number] [place] [address] Dec, [facility] [id number] [place] [address] November, Dental examination Z01.20 and Periodontitis K05.30 [address] [id number] [place] [address] November, [facility] [id number] [place] [address] November, [facility] [id number] [place] [address] Oct, Encounter for Medicare annual wellness exam [...] hearing loss, unspecified hearing loss type H91.93 [facility] [address], [place] [address] Oct, [facility] [address] [address] Oct, [place] [id number] [place] [address] Sep, [place] [id number] [place] [address] Aug, Anxiety F41.9 [place] [id number] [place] [address] Aug, Encounter for immunization Z23 [address] [address] Jul, History of cerebrovascular accident with hemiparesis or hemiplegia Z86.73 ; Dementia with behavioral disturbance, unspecified dementia type F03.91 ; Hypothyroidism (acquired) E03.9 ; Type 2 diabetes mellitus with diabetic neuropathy, unspecified E11.40 and 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.39 [id number] [place] [address] Jul, [place] [id number] [place] [address] Jul, Type 2 diabetes mellitus with diabetic neuropathy, unspecified E11.40 ; Anxiety F41.9 ; Vascular dementia without behavioral disturbance F01.50 ; Moderate episode of recurrent major depressive disorder F33.1 ; Onychomycosis of great toe B35.1 ; 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 and Type 2 diabetes mellitus with complication, without long-term current use of insulin E11.8 [address] [place] [address] Jun, Hypertension I10 ; Anxiety F41.9 ; Dementia with behavioral disturbance, unspecified dementia type F03.91 ; 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 ; Moderate episode of recurrent major depressive disorder F33.1 ; Encounter for immunization Z23 ; Skin lesion of left leg L98.9 ; BMI 28.0-28.9,adult Z68.28 and Other chronic pain G89.29 [address] [place] [address] May, Lymphadenopathy, axillary R59.0 [facility] [id number] [place] [address] May, [facility] [id number] [place] [address] Apr, [facility] [id number] [place] [address] Apr, [facility] [address] [address] Apr, [facility] [id number] [place] [address] Apr, [facility] [address] [address] Mar, Anxiety F41.9 ; Moderate episode of recurrent major depressive disorder F33.1 and Dementia with behavioral disturbance, unspecified dementia type F03.91 [place] [id number] [place] [address] Mar, [facility] [id number] [place] [address] Mar, Diabetes E11.9 ; Hypothyroidism (acquired) E03.9 ; Hypertension I10 and Type 2 diabetes mellitus with diabetic neuropathy, unspecified E11.40 [place] [id number] [place] [address] Jan, [facility] [id number] [place] [address] Dec, Anxiety F41.9 and Moderate episode of recurrent major depressive disorder F33.1 [place] [id number] [place] [address] November, [facility] [id number] [place] [address] November, Chronic cough R05 and Cardiomegaly I51.7 [facility] [id number] [place] [address] Oct, Medicare annual wellness visit, initial Z00.00 [...] seizures R56.1 and Encounter for immunization Z23 [place] [address] [address] Sep, [place] [address] [address] Jul, [place] [address] [address] Jul, [place] [address] [address] Jun, Anxiety F41.9 and Moderate episode of recurrent major depressive disorder F33.1 [place] [address] [address] Jun, Bronchitis J40 and Bilateral hearing loss, unspecified hearing loss type H91.93 [place] [place] [address] Jun, [place] [address] [address] Apr, [place] [address] [address] Apr, Encounter for immunization Z23 and Left breast mass N63.20 [place] [address] [address] Apr, [place] [address] [address] Mar, CVA (cerebral vascular accident) I63.9 ; Hypertension I10 ; 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 ; Type 2 diabetes mellitus with diabetic neuropathy, unspecified E11.40 and Left breast mass N63 [facility] [id number] [place] [address] Mar, Mild episode of recurrent major depressive disorder F33.0 and Anxiety F41.9 [facility] [id number] [place] [address] Mar, Breast mass, left N63 [facility] [id number] [place] [address] Mar, Breast mass, left N63 [facility] [id number] [place] [address] Feb, [facility] [id number] [place] [address] Feb, [facility] [id number] [place] [address] Feb, [facility] [id number] [place] [address] Feb, [facility] [id number] [place] [address] Feb, Onychomycosis B35.1 and Type 2 diabetes mellitus with complication E11.8 [facility] [id number] [place] [address] Jan, Mild episode of recurrent major depressive disorder F33.0 and Anxiety F41.9 [facility] [id number] [place] [address] Jan, [facility] [id number] [place] [address] Dec, Onychomycosis due to dermatophyte B35.1 ; 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.1 ; Type 2 diabetes mellitus with diabetic neuropathy, unspecified E11.40 ; Falls frequently R29.6 ; Neuropathy G62.9 ; Dementia with behavioral disturbance, unspecified dementia type F03.91 ; Hypothyroidism (acquired) E03.9 and Left hand pain M79.642 [facility] [id number] [place] [address] Dec, [facility] [address] [address] Dec, Hypothyroidism (acquired) E03.9 [facility] [id number] [place] [address] Dec, 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 [address] [place] [id number] [place] [address] November, Hypothyroidism (acquired) E03.9 [facility] [address] [address] Oct, [facility] [id number] [place] [address] Oct, 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 complication E11.39 [place] [id number] [place] [address] Oct, [facility] [id number] [place] [address] Oct, Dysuria R30.0 ; 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 ; Bilateral hearing loss, unspecified hearing loss type H91.93 and 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 [facility] [id number] [place] [address] Sep, [facility] [id number] [place] [address] Sep, Open wound of right great toe, initial encounter S91.101A [place] [address] [address] Sep, Breast mass, left N63 ; Non-insulin dependent type 2 diabetes mellitus E11.9 and Vascular dementia without behavioral disturbance F01.50 [place] [address] [address] Sep, [place] [id number] [place] [address] Jul, [place] [address] [address] Jul, Diabetes E11.9 ; Diaper dermatitis L22 ; Candidiasis of skin and nail B37.2 ; Neuropathy G62.9 ; Status post stroke Z86.73 ; Unsteadiness on feet R26.81 and 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 [address] [place] [id number] [place] [address] May, [place] [address] [address] May, [place] [id number] [place] [address] May, [place] [address] [address] May, Dementia with behavioral disturbance, unspecified dementia type F03.91 [place] [id number] [place] [address] May, Dementia with behavioral disturbance, unspecified dementia type F03.91 ; Encounter for immunization Z23 and Diabetes E11.9 [place] [id number] [place] [address] May, [place] [address] [address] May, Neuropathy G62.9 [place] [id number] [place] [address] May, [place] [address] [address] Apr, Hypothyroidism (acquired) E03.9 [place] [id number] [place] [address] Apr, CVA (cerebral vascular accident) I63.9 ; Left hand weakness M62.81 and Neuropathy G62.9 [place] [id number] [place] [address] Apr, Hypokalemia E87.6 [place] [address] [address] Apr, Hypokalemia E87.6 [place] [address] [address] Mar, Diabetes E11.9 ; Edema, unspecified type R60.9 ; Anxiety disorder, unspecified F41.9 ; Pain in left knee M25.562 ; Other chronic pain G89.29 and Status post stroke Z86.73 [place] [id number] [place] [address] Mar, [place] [address] [address] Mar, [place] [id number] [place] [address] Mar, Neuropathy G62.9 [place] [id number] [place] [address] Feb, Anorexia R63.0 and Neuropathy G62.9 [place] [id number] [place] [address] Jan, Diabetes E11.9 ; Neuropathy G62.9 ; Panic attack F41.0 ; Pain in left knee M25.562 and Hypertension 401.9 [place] [id number] [place] [address] Jan, Weakness R53.1 ; Fatigue, unspecified type R53.83 ; Falling episodes R29.6 and Neuropathy G62.9 [facility] [id number] [place] [address] Jan, Pain in left knee M25.562 [facility] [id number] [place] [address] Jan, [facility] [id number] [place] [address] Jan, [facility] [address] [address] Jan, [facility] [address] [address] Dec, Diabetes E11.9 ; Neuropathy G62.9 and Dementia F03.90 [facility] [address] [address] Dec, [facility] [address] [address] Dec, Neuropathy G62.9 ; Diabetes E11.9 ; Anxiety F41.9 and Constipation, unspecified constipation type K59.00 [facility] [id number] [place] [address] Dec, [facility] [id number] [place] [address] Dec, Anxiety F41.9 [facility] [id number] [place] [address] November, [facility] [id number] [place] [address] November, Pain in left knee M25.562 ; Other chronic pain G89.29 ; Diabetes E11.9 and Left eye pain H57.12 [facility] [id number] [place] [address] November, [facility] [address] [address] November, Hearing loss, unspecified laterality H91.90 [facility] [id number] [place] [address] November, [facility] [id number] [place] [address] November, [facility] [id number] [place] [address] November, Pain in right knee M25.561 [facility] [id number] [place] [address] November, [facility] [id number] [place] [address] Oct, [facility] [id number] [place] [address] Oct, [facility] [id number] [place] [address] Oct, Edema of left lower extremity R60.0 ; Diabetes E11.9 ; 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 I63.39 and Anxiety disorder, unspecified F41.9 [facility] [id number] [place] [address] Oct, Panic attack F41.0 [facility] [id number] [place] [address] Oct, [facility] [id number] [place] [address] Oct, CVA (cerebral vascular accident) I63.9 [facility] [id number] [place] [address] Oct, [facility] [id number] [place] [address] Oct, Diabetes E11.9 ; Hypertension I10 and Dementia F03.90 [facility] [id number] [place] [address] 30 Sep, 2015 [facility] [id number] [place] [address] Sep, [facility] [id number] [place] [address] Sep, Diabetes E11.9 ; 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 ; Onychomycosis B35.1 and Fatigue R53.83 [facility] [id number] [place] [address] Aug, [facility] [id number] [place] [address] Aug, [facility] [id number] [place] [address] Jul, [place] [id number] [place] [address] Jul, [facility] [id number] [place] [address] Jun, 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 [place] [id number] [place] [address] Jun, Anxiety disorder, unspecified F41.9 and Major depressive disorder, single episode, moderate F32.1 [place] [id number] [place] [address] Jun, [facility] [id number] [place] [address] Jun, [facility] [id number] [place] [address] 24 May, 2015 Left knee pain M25.562 [facility] [id number] [place] [address] 16 May, 2015 [facility] [id number] [place] [address] May, [facility] [id number] [place] [address] May, [facility] [id number] [place] [address] May, Hypertension I10 ; Diabetes E11.9 and Depression F32.9 [facility] [address] [address] May, [facility] [id number] [place] [address] Apr, Left knee pain M25.562 ; Type 2 diabetes mellitus with complication E11.8 and Encounter for immunization Z23 [facility] [id number] [place] [address] Apr, [facility] [id number] [place] [address] Apr, [facility] [id number] [place] [address] Mar, [facility] [id number] [place] [address] Mar, Silvestre stanley 727.51 [facility] [id number] [place] [address] Mar, [facility] [id number] [place] [address] Mar, [facility] [id number] [place] [address] Mar, [facility] [id number] [place] [address] Feb, [facility] [id number] [place] [address] Feb, [facility] [id number] [place] [id number] Feb, Hypertension 401.9 and Diabetes 250.00 [facility] [id number] [address] Jan, [facility] [id number] [address] Jan, Diabetes 250.00 [facility] [id number], [place] [address] Jan, [facility] [id number] [place] [address] Jan, [facility] [id number], [place] [address] Dec, Diabetes 250.00 and Forgetfulness 780.99 [facility] [id number] [address] Dec, [facility] [id number] [place] [address] Dec, Diabetes mellitus 250.00 [facility] [id number], [place] [address] Dec, [facility] [id number] [address] Dec, [facility] [id number], [place] [address] Dec, [facility] [id number], [place] [address] Dec, Diabetes 250.00 and Dysthymia 300.4 [facility] [id number], [place] [address] Dec, [facility] [id number] [place] [address] Dec, Grief 309.0 and Diabetes mellitus 250.00 [facility] [id number], [place] [address] Oct, [facility] [place] [facility] [address] [id number] [place] [address] Oct, [facility] [facility] [address] [id number] [place] [address] Jul, [facility] [place] [facility] [address] [id number] [place] [address] Jul, [facility] [place] [facility] [address] [id number] [place] [address] Jul, [facility] [place] [facility] [address] [id number] [place] [address] Jul, [facility] [place] [facility] [address] [id number] [place] [address] Jul, [facility] [place] [facility] [address] [id number] [place] [address] May, [facility] [place] [facility] [address] [id number] [place] [address] May, [facility] [place] [facility] [address] [id number] [place] [address] Apr, [facility] [place] [facility] [address] [id number] [place] [address] Apr, [facility] [place] [facility] [address] [id number] [place] [address] Mar, [facility] [place] [facility] [address] [id number] [place] [address] Mar, [facility] [place] [facility] [address] [id number] [place] [address] Feb, [facility] [place] [facility] [address] [id number] [place] [address] Feb, [facility] [place] [facility] [address] [id number] [place] [address] Feb, [facility] [place] [facility] [address] [id number] [place] [address] Feb, [facility] [place] [facility] [address] [id number] [place] [address] Feb, [facility] [place] [facility] [address] [id number] [place] [address] Feb, [facility] [place] [facility] [address] [id number] [place] [address] November, [facility] [place] [facility] [address] [id number] [place] [address] November, [facility] [place] [facility] [address] [id number] [place] [address] Sep, [facility] [place] [facility] [address] [id number] [place] [address] Sep, [facility] [place] [facility] [address] [id number] [place] [address] Sep, [facility] [place] [facility] [address] [id number] [place] [address] Sep, [facility] [place] [facility] [address] [id number] [place] [address] Sep, [facility] [place] [facility] [address] [id number] [place] [address] Sep, [facility] [place] [facility] [address] [id number] [place] [address] Sep, [facility] [place] [facility] [address] [id number] [place] [address] Sep, [facility] [place] [facility] [address] [id number] [place] [address] Aug, [facility] [place] [address] [id number] [place] [address] Aug, [facility] [place] [address] [id number] [place] [address] Jul, [facility] [place] [facility] [address] [id number] [place] [address] Jul, [facility] [address] [id number] [place] [address] Jul, [facility] [address] [id number] [place] [address] Jul, [facility] [address] [id number] [place] [address] Jun, [facility] [address] [id number] [place] [address] Jun, [facility] [address] [id number] [place] [address] May, [facility] [address] [id number] [place] [address] May, [facility] [address] [id number] [place] [address] May, [facility] [address] [id number] [place] [address] May, [facility] [address] [id number] [place] [address] May, [facility] [address] [id number] [place] [address] May, [facility] [address] [id number] [place] [address] Apr, [facility] [address] [id number] [place] [address] Apr, [facility] [address] [id number] [place] [address] Apr, [facility] [address] [id number] [place] [address] Apr, [facility] [address] [id number] [place] [address] Mar, [facility] [address] [id number] [place] [address] Mar, [facility] [address] [id number] [place] [address] Jan, [facility] [address] [id number] [place] [address] Jan, [facility] [address] [id number] [place] [address] Jan, [facility] [address] [id number] [place] [address] November, [facility] [address] [id number] [place] [address] November, [facility] [address] [id number] [place] [address] November, [facility] [address] [id number] [place] [address] November, [facility] [address] [id number] [place] [address] Aug, [facility] [address] [id number] [place] [address] Jul, [facility] [address] [id number] [place] [address] Jul, [facility] [address] [id number] [place] [address] Jul, [facility] [address] [id number] [place] [address] Jun, [facility] [address] [id number] [place] [address] Jun, [facility] [address] [id number] [place] [address] May, [facility] [address] [id number] [place] [address] May, [facility] [address] [id number] [place] [address] Apr, [facility] [address] [id number] [place] [address] Apr, [facility] [address] [id number] [place] [address] Apr, [facility] [address] [id number] [place] [address] Apr, [facility] [address] [id number] [place] [address] Apr, [facility] [address] [id number] [place] [address] Apr, [facility] [address] [id number] [place] [address] Apr, [facility] [address] [id number] [place] [address] Apr, [facility] [address] [id number] [place] [address] Apr, [facility] [address] [id number] [place] [address] Mar, [facility] [address] [id number] [place] [address] Feb, [facility] [address] [id number] [address] November, [facility] [address] [id number] [place] [address] November, [facility] [address] [id number] [place] [address] November, [facility] [address] [facility] [id number] [place] [address] November, [facility] [id number], [place] [address] Jun, [facility] [id number], [place] [address] Jun, [facility] [address] [facility] [id number], [place] [address] May, [facility] [id number], [place] [address] May, [facility] [address] [facility] [id number], [place] [address] Apr, [facility] [id number], [place] [address] Apr, [facility] [id number], [place] [address] May, [facility] [id number], [place] [address] Apr, [facility] [id number], [place] [address] Apr, [facility] [id number], [place] [address] Apr, [facility] [id number], [place] [address] Apr, IMMUNIZATIONS No Known Immunizations SOCIAL HISTORY [...] Hospitalization History Post Stroke pt went to [facility] and then [facility] 10/15/15 Hospitalization History Hypotension, Wander ateral leg weakness--Via [facility] 01/15/16 Hospitalization History hypertension/chest pain 03/2017
--- OUTSIDE RECORDS SUMMARY | 2023-03-21 11:30 | XMS REPORT ---
Author Author Lady SIMMONS Organization [facility] Address [address] [place] [address] Care Team Providers Care Promotion Writer Name Role Phone OMI SIMMONS Unavailable PROBLEMS Type Condition ICD9-CM Code SPF75-YU Code Onset Dates Condition Status SNOMED Code Problem Panic attack F41.0 Active 009481626 Problem Hypertension I10 Active 11239743 Problem Anxiety F41.9 Active 40918245 Problem Other chronic pain G89.29 Active 64603 001 Problem Dementia with behavioral disturbance, unspecified dementia type F03.91 Active 2773799850940 Problem Hypothyroidism (acquired) E03.9 Active 814828723 Problem Vascular dementia without behavioral disturbance F01.50 Active 926687227 Problem 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 Active 220810699790 Problem Falls frequently R29.6 Active 2019363 02 Problem Type 2 diabetes mellitus with diabetic neuropathy, unspecified E11.40 Active 03252870 Problem Moderate episode of recurrent major depressive disorder F33.1 Active 42133106 1 Problem Cardiomegaly I51.7 Active 6601950 Problem 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 Active 342322442 Problem Diabetes E11.9 Active 453154104 Problem 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 Active 86301016 Problem History of cerebrovascular accident with hemiparesis or hemiplegia Z86.73 Active 658469826 Problem Bilateral hearing loss, unspecified hearing loss type H91.93 Active 14685181 Problem SNHL (sensory-neural hearing loss), 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 Active 080968803 Problem Left-sided muscle weakness M62.81 Active 887681481 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 21992680 ALLERGIES No Information ENCOUNTERS Encounter Location Date Diagnosis [facility] [address] [facility] [id number], [place] [address] Feb, [facility] [address] [id number], [place] [address] Jan, [facility] [address], [place] [address] Jan, [facility] [address], [place] [address] Dec, [facility] [address], [place] [address] Oct, [facility] [id number] [place] [address] Oct, [facility] [address], [place] [address] Aug, [facility] [address], [place] [address] Aug, [facility] [address], [place] [address] Aug, [facility] [address], [place] [address] Jul, 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.39 ; Type 2 diabetes mellitus with diabetic neuropathy, unspecified E11.40 ; Hypertension I10 and Physical debility R53.81 [facility] [address], [place] [address] May, [facility] [address], [place] [address] Apr, [facility] [address], [place] [address] Mar, Type 2 diabetes mellitus with diabetic neuropathy, unspecified E11.40 ; Hypertension I10 ; Diabetes E11.9 ; Dementia with behavioral disturbance, unspecified dementia type F03.91 ; Type 2 diabetes mellitus with complication, without long-term current use of insulin E11.8 and Neck pain M54.2 [facility] [address], [place] [address] Mar, Dysuria R30.0 [facility] [address] [id number] [address] Feb, [facility] [address] [facility] [id number], [place] [address] Feb, [facility] [address] [facility] [id number], [place] [address] Jan, [facility] [address], [place] [address] Dec, [facility] [address] [facility] [id number], [place] [address] Dec, [facility] [address], [place] [address] Dec, [facility] [address], [place] [address] November, Dental examination Z01.20 and Periodontitis K05.30 [facility] [id number], [place] [address] November, [facility] [address], [place] [address] November, [facility] [id number], [place] [address] Oct, Encounter for Medicare annual wellness exam [...] hearing loss, unspecified hearing loss type H91.93 [facility] [address] [facility] [id number], [place] [address] Oct, [place] [address], [place] [address] Oct, [place] [id number] [place] [address] Sep, [place] [address] [place] [address] Aug, Anxiety F41.9 [place] [id number] [place] [address] Aug, Encounter for immunization Z23 [place] [address] [place] [address] Jul, History of cerebrovascular accident with hemiparesis or hemiplegia Z86.73 ; Dementia with behavioral disturbance, unspecified dementia type F03.91 ; Hypothyroidism (acquired) E03.9 ; Type 2 diabetes mellitus with diabetic neuropathy, unspecified E11.40 and 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 [place] [address] [place] [address] Jul, [place] [address] [place] [address] Jul, Type 2 diabetes mellitus with diabetic neuropathy, unspecified E11.40 ; Anxiety F41.9 ; Vascular dementia without behavioral disturbance F01.50 ; Moderate episode of recurrent major depressive disorder F33.1 ; Onychomycosis of great toe B35.1 ; 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 and Type 2 diabetes mellitus with complication, without long-term current use of insulin E11.8 [place] [id number] [place] [address] Jun, Hypertension I10 ; Anxiety F41.9 ; Dementia with behavioral disturbance, unspecified dementia type F03.91 ; 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 ; Moderate episode of recurrent major depressive disorder F33.1 ; Encounter for immunization Z23 ; Skin lesion of left leg L98.9 ; BMI 28.0-28.9,adult Z68.28 and Other chronic pain G89.29 [facility] [address] [place] [address] May, Lymphadenopathy, axillary R59.0 [facility] [id number] [place] [address] May, [facility] [id number] [place] [address] Apr, [facility] [id number] [place] [address] Apr, [facility] [id number] [place] [address] Apr, [facility] [id number] [place] [address] Apr, [facility] [id number] [place] [address] Mar, Anxiety F41.9 ; Moderate episode of recurrent major depressive disorder F33.1 and Dementia with behavioral disturbance, unspecified dementia type F03.91 [facility] [id number] [place] [address] Mar, [facility] [id number] [place] [address] Mar, Diabetes E11.9 ; Hypothyroidism (acquired) E03.9 ; Hypertension I10 and Type 2 diabetes mellitus with diabetic neuropathy, unspecified E11.40 [facility] [id number] [place] [address] Jan, [facility] [id number] [place] [address] Dec, Anxiety F41.9 and Moderate episode of recurrent major depressive disorder F33.1 [facility] [id number] [place] [address] November, [facility] [id number] [place] [address] November, Chronic cough R05 and Cardiomegaly I51.7 [place] [address] [address] Oct, Medicare annual wellness visit, initial Z00.00 [...] seizures R56.1 and Encounter for immunization Z23 [place] [address] [address] Sep, [place] [address] [address] Jul, [place] [address] [address] Jul, [place] [address] [address] Jun, Anxiety F41.9 and Moderate episode of recurrent major depressive disorder F33.1 [place] [address] [address] Jun, Bronchitis J40 and Bilateral hearing loss, unspecified hearing loss type H91.93 [place] [address] [address] Jun, [place] [address] [address] Apr, [place] [address] [address] Apr, Encounter for immunization Z23 and Left breast mass N63.20 [place] [address] [address] Apr, [facility] [id number] [place] [address] Mar, CVA (cerebral vascular accident) I63.9 ; Hypertension I10 ; 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.39 ; Type 2 diabetes mellitus with diabetic neuropathy, unspecified E11.40 and Left breast mass N63 [facility] [id number] [place] [address] Mar, Mild episode of recurrent major depressive disorder F33.0 and Anxiety F41.9 [facility] [id number] [place] [address] Mar, Breast mass, left N63 [facility] [id number] [place] [address] Mar, Breast mass, left N63 [facility] [id number] [place] [address] Feb, [facility] [id number] [place] [address] Feb, [facility] [id number] [place] [address] Feb, [facility] [id number] [place] [address] Feb, [facility] [id number] [place] [address] Feb, Onychomycosis B35.1 and Type 2 diabetes mellitus with complication E11.8 [facility] [id number] [place] [address] Jan, Mild episode of recurrent major depressive disorder F33.0 and Anxiety F41.9 [facility] [id number] [place] [address] Jan, [facility] [id number] [place] [address] Dec, Onychomycosis due to dermatophyte B35.1 ; 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.1 ; Type 2 diabetes mellitus with diabetic neuropathy, unspecified E11.40 ; Falls frequently R29.6 ; Neuropathy G62.9 ; Dementia with behavioral disturbance, unspecified dementia type F03.91 ; Hypothyroidism (acquired) E03.9 and Left hand pain M79.642 [place] [address] [address] Dec, [facility] [address] [address] Dec, Hypothyroidism (acquired) E03.9 [place] [address] [address] Dec, 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 [place] [address] [address] November, Hypothyroidism (acquired) E03.9 [facility] [id number] [place] [address] Oct, [facility] [address] [address] Oct, Non insulin dependent diabetes mellitus with ophthalmic complication E11.39 [place] [id number] [place] [address] Oct, [facility] [id number] [place] [address] Oct, Dysuria R30.0 ; 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 ; Bilateral hearing loss, unspecified hearing loss type H91.93 and 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 [facility] [address] [address] Sep, [facility] [id number] [place] [address] Sep, Open wound of right great toe, initial encounter S91.101A [place] [address] [place] [address] 13 Sep, 2016 Breast mass, left N63 ; Non-insulin dependent type 2 diabetes mellitus E11.9 and Vascular dementia without behavioral disturbance F01.50 [place] [id number] [place] [address] Sep, [place] [address] [address] Jul, [place] [id number] [place] [address] Jul, Diabetes E11.9 ; Diaper dermatitis L22 ; Candidiasis of skin and nail B37.2 ; Neuropathy G62.9 ; Status post stroke Z86.73 ; Unsteadiness on feet R26.81 and 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 [place] [id number] [place] [address] May, [place] [id number] [place] [address] May, [place] [address] [address] May, [place] [id number] [place] [address] May, Dementia with behavioral disturbance, unspecified dementia type F03.91 [place] [id number] [place] [address] 16 May, 2016 Dementia with behavioral disturbance, unspecified dementia type F03.91 ; Encounter for immunization Z23 and Diabetes E11.9 [place] [id number] [place] [address] May, [place] [id number] [place] [address] May, Neuropathy G62.9 [place] [address] [address] May, [place] [address] [address] Apr, Hypothyroidism (acquired) E03.9 [place] [address] [address] Apr, CVA (cerebral vascular accident) I63.9 ; Left hand weakness M62.81 and Neuropathy G62.9 [place] [address] [address] Apr, Hypokalemia E87.6 [place] [address] [address] Apr, Hypokalemia E87.6 [place] [address] [address] Mar, Diabetes E11.9 ; Edema, unspecified type R60.9 ; Anxiety disorder, unspecified F41.9 ; Pain in left knee M25.562 ; Other chronic pain G89.29 and Status post stroke Z86.73 [place] [address] [address] Mar, [place] [address] [address] Mar, [place] [address] [address] Mar, Neuropathy G62.9 [place] [address] [address] Feb, Anorexia R63.0 and Neuropathy G62.9 [place] [address] [address] Jan, Diabetes E11.9 ; Neuropathy G62.9 ; Panic attack F41.0 ; Pain in left knee M25.562 and Hypertension 401.9 [place] [address] [address] Jan, Weakness R53.1 ; Fatigue, unspecified type R53.83 ; Falling episodes R29.6 and Neuropathy G62.9 [place] [id number] [place] [address] Jan, Pain in left knee M25.562 [facility] [id number] [place] [address] Jan, [facility] [address] [address] Jan, [facility] [address] [address] Jan, [place] [id number] [place] [address] Dec, Diabetes E11.9 ; Neuropathy G62.9 and Dementia F03.90 [place] [id number] [place] [address] Dec, [place] [id number] [place] [address] Dec, Neuropathy G62.9 ; Diabetes E11.9 ; Anxiety F41.9 and Constipation, unspecified constipation type K59.00 [place] [id number] [place] [address] Dec, [place] [id number] [place] [address] Dec, Anxiety F41.9 [place] [id number] [place] [address] November, [place] [address] [address] November, Pain in left knee M25.562 ; Other chronic pain G89.29 ; Diabetes E11.9 and Left eye pain H57.12 [place] [address] [address] November, [facility] [address], [place] [address] November, Hearing loss, unspecified laterality H91.90 [facility] [id number] [place] [address] November, [facility] [id number] [place] [address] November, [facility] [id number] [place] [address] November, Pain in right knee M25.561 [facility] [id number] [place] [address] November, [facility] [id number] [place] [address] Oct, [facility] [id number] [place] [address] Oct, [facility] [id number] [place] [address] Oct, Edema of left lower extremity R60.0 ; Diabetes E11.9 ; 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 I63.39 and Anxiety disorder, unspecified F41.9 [facility] [address] [place] [address] 14 Oct, 2015 Panic attack F41.0 [facility] [id number] [place] [address] 14 Oct, 2015 [facility] [address] [place] [address] 13 Oct, 2015 CVA (cerebral vascular accident) I63.9 [facility] [address] [place] [address] Oct, [facility] [id number] [place] [address] Oct, Diabetes E11.9 ; Hypertension I10 and Dementia F03.90 [facility] [id number] [place] [address] Sep, [facility] [id number] [place] [address] Sep, [facility] [id number] [place] [address] Sep, Diabetes E11.9 ; 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 ; Onychomycosis B35.1 and Fatigue R53.83 [facility] [id number] [place] [address] Aug, [place] [id number] [place] [address] Aug, [facility] [id number] [place] [address] Jul, [facility] [id number] [place] [address] Jul, [facility] [id number] [place] [address] Jun, 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 [place] [id number] [place] [address] Jun, Anxiety disorder, unspecified F41.9 and Major depressive disorder, single episode, moderate F32.1 [facility] [id number] [place] [address] Jun, [facility] [id number] [place] [address] Jun, [facility] [id number] [place] [address] May, Left knee pain M25.562 [facility] [id number] [place] [address] May, [facility] [id number] [place] [address] May, [facility] [id number] [place] [address] May, [facility] [id number] [place] [address] May, Hypertension I10 ; Diabetes E11.9 and Depression F32.9 [facility] [id number] [place] [address] May, [facility] [address] [address] Apr, Left knee pain M25.562 ; Type 2 diabetes mellitus with complication E11.8 and Encounter for immunization Z23 [facility] [id number] [place] [address] Apr, [facility] [id number] [place] [address] Apr, [facility] [id number] [place] [address] Mar, [facility] [id number] [place] [address] Mar, Silvestre stanley 727.51 [facility] [id number] [place] [id number] Mar, [facility] [id number] [place] [phone] Mar, [facility] [id number] [place] [phone] Mar, [facility] [id number] [place] [phone] Feb, [facility] [id number] [place] [id number] Feb, [facility] [id number] [address] Feb, Hypertension 401.9 and Diabetes 250.00 [facility] [id number], [place] [address] Jan, [facility] [id number] [address] Jan, Diabetes 250.00 [facility] [id number] [place] [phone] Jan, [facility] [address] [id number] [place] [address] Jan, [facility] [id number] [place] [address] Dec, Diabetes 250.00 and Forgetfulness 780.99 [facility] [id number] [place] [address] Dec, [facility] [address] [address] Dec, Diabetes mellitus 250.00 [facility] [address] [address] Dec, [facility] [address], [place] [address] Dec, [facility] [address], [place] [address] Dec, [facility] [address], [place] [address] Dec, Diabetes 250.00 and Dysthymia 300.4 [facility] [address] [address] Dec, [facility] [address], [place] [address] Dec, Grief 309.0 and Diabetes mellitus 250.00 [facility] [address] [id number] [place] [address] Oct, [facility] [place] [facility] [address] [id number] [place] [address] Oct, [facility] [place] [facility] [address] [id number] [place] [address] Jul, [facility] [place] [facility] [address] [id number] [place] [address] Jul, [facility] [place] [facility] [address] [id number] [place] [address] Jul, [facility] [place] [facility] [address] [id number] [place] [address] Jul, [facility] [place] [facility] [address] [id number] [place] [address] Jul, [facility] [place] [facility] [address] [id number] [place] [address] May, [facility] [place] [facility] [address] [id number] [place] [address] May, [facility] [place] [facility] [address] [id number] [place] [address] Apr, [facility] [place] [facility] [address] [id number] [place] [address] Apr, [facility] [place] [facility] [address] [id number] [place] [address] Mar, [facility] [place] [facility] [address] [id number] [place] [address] Mar, [facility] [place] [facility] [address] [id number] [place] [address] Feb, [facility] [place] [facility] [address] [id number] [place] [address] Feb, [facility] [place] [facility] [address] [id number] [place] [address] Feb, [facility] [place] [facility] [address] [id number] [place] [address] Feb, [facility] [place] [facility] [address] [id number] [place] [address] Feb, [facility] [place] [facility] [address] [id number] [place] [address] Feb, [facility] [place] [facility] [address] [id number] [place] [address] November, [facility] [place] [facility] [address] [id number] [place] [address] November, [facility] [place] [facility] [address] [id number] [place] [address] Sep, [facility] [place] [facility] [address] [id number] [place] [address] Sep, [facility] [place] [facility] [address] [id number] [place] [address] Sep, [facility] [place] [facility] [address] [id number] [place] [address] Sep, [facility] [place] [facility] [address] [id number] [place] [address] Sep, [facility] [place] [facility] [address] [id number] [place] [address] Sep, [facility] [place] [facility] [address] [id number] [place] [address] Sep, [facility] [place] [facility] [address] [id number] [place] [address] Sep, [facility] [place] [facility] [address] [id number] [place] [address] Aug, [facility] [place] [facility] [address] [id number] [place] [address] Aug, [facility] [place] [facility] [address] [id number] [place] [address] Jul, [facility] [address] [id number] [place] [address] Jul, [facility] [place] [facility] [address] [id number] [place] [address] Jul, [facility] [address] [id number] [place] [address] Jul, [facility] [address] [id number] [place] [address] Jun, [facility] [address] [id number] [place] [address] Jun, [facility] [address] [id number] [place] [address] May, [facility] [address] [id number] [place] [address] May, [facility] [address] [id number] [place] [address] May, [facility] [address] [id number] [place] [address] May, [facility] [address] [id number] [place] [address] May, [facility] [place] [facility] [address] [id number] [place] [address] May, [facility] [address] [id number] [place] [address] Apr, [facility] [place] [facility] [address] [id number] [place] [address] Apr, [facility] [place] [facility] [address] [id number] [place] [address] Apr, [facility] [place] [facility] [address] [id number] [place] [address] Apr, [facility] [address] [id number] [place] [address] Mar, [facility] [place] [facility] [address] [id number] [place] [address] Mar, [facility] [address] [id number] [place] [address] Jan, [facility] [place] [facility] [address] [id number] [place] [address] Jan, [facility] [address] [id number] [place] [address] Jan, [facility] [place] [facility] [address] [id number] [place] [address] November, [facility] [address] [id number] [place] [address] November, [facility] [address] [id number] [place] [address] November, [facility] [address] [id number] [place] [address] November, [facility] [address] [id number] [place] [address] Aug, [facility] [address] [id number] [place] [address] Jul, [facility] [place] [facility] [address] [id number] [place] [address] Jul, [facility] [place] [facility] [address] [id number] [place] [address] Jul, [facility] [place] [facility] [address] [id number] [place] [address] Jun, [facility] [place] [facility] [address] [id number] [place] [address] Jun, [facility] [place] [facility] [address] [id number] [place] [address] May, [facility] [place] [facility] [address] [id number] [place] [address] May, [facility] [place] [facility] [address] [id number] [place] [address] Apr, [facility] [place] [facility] [address] [id number] [place] [address] Apr, [facility] [place] [facility] [address] [id number] [place] [address] Apr, [facility] [place] [facility] [address] [id number] [place] [address] Apr, [facility] [place] [facility] [address] [id number] [place] [address] Apr, [facility] [place] [facility] [address] [id number] [place] [address] Apr, [facility] [place] [facility] [address] [id number] [place] [address] Apr, [facility] [place] [facility] [address] [id number] [place] [address] Apr, [facility] [place] [facility] [address] [facility] [id number] [place] [address] Apr, [facility] [place] [facility] [address] [id number] [place] [address] Mar, [facility] [place] [facility] [address] [id number], [place] [address] Feb, [facility] [place] [facility] [address] [id number] [place] [address] November, [facility] [place] [facility] [address] [id number] [place] [address] November, [facility] [place] [facility] [address] [facility] [id number] [place] [address] November, [facility] [place] [facility] [address], [place] [address] November, [facility] [address], [place] [address] Jun, [facility] [address], [place] [address] Jun, [facility] [address], [place] [address] May, [facility] [address], [place] [address] May, [facility] [id number] [place] [address] Apr, [facility] [address], [place] [address] Apr, [facility] [address], [place] [address] May, [facility] [address], [place] [address] Apr, [facility] [address], [place] [address] Apr, [facility] [address], [place] [address] Apr, [facility] [address], [place] [address] Apr, IMMUNIZATIONS No Known Immunizations SOCIAL HISTORY [...] Hospitalization History Post Stroke pt went to [facility] and then [facility] 10/15/15 Hospitalization History Hypotension, Wander ateral leg weakness--Via [facility] 01/15/16 Hospitalization History hypertension/chest pain 03/2017
--- OUTSIDE RECORDS SUMMARY | 2023-03-21 11:30 | XMS REPORT ---
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 Name Role Phone OMI SIMMONS Unavailable PROBLEMS Type Condition ICD9-CM Code [id number] Code Onset Dates Condition Status SNOMED Code Problem Panic attack F41.0 Active 877246887 Problem Hypertension I10 Active 09404289 Problem Anxiety F41.9 Active 29554061 Problem Other chronic pain G89.29 Active 73507 001 Problem Dementia with behavioral disturbance, unspecified dementia type F03.91 Active 2534498623963 Problem Hypothyroidism (acquired) E03.9 Active 974265976 Problem Vascular dementia without behavioral disturbance F01.50 Active 046431157 Problem 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 Active 706395847153 Problem Falls frequently R29.6 Active 3755135 02 Problem Type 2 diabetes mellitus with diabetic neuropathy, unspecified E11.40 Active 32713095 Problem Moderate episode of recurrent major depressive disorder F33.1 Active 04761292 1 Problem Cardiomegaly I51.7 Active 1822329 Problem 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 Active 270219692 Problem Diabetes E11.9 Active 399510261 Problem 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 Active 97488655 Problem History of cerebrovascular accident with hemiparesis or hemiplegia Z86.73 Active 382965723 Problem Bilateral hearing loss, unspecified hearing loss type H91.93 Active 39261602 Problem SNHL (sensory-neural hearing loss), 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 Active 332497557 Problem Left-sided muscle weakness M62.81 Active 410310349 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 15858597 ALLERGIES No Information ENCOUNTERS Encounter Location Date Diagnosis [facility] [address] [facility] [id number] [address] Dec, [facility] [id number] [address] Oct, [facility] [address] [address] Oct, [facility] [id number] [place] [address] Aug, [facility] [address] [address] Aug, [facility] [address] [place] [address] Aug, [facility] [address] [place] [address] Jul, Non insulin dependent diabetes mellitus with ophthalmic complication E11.39 ; Type 2 diabetes mellitus with diabetic neuropathy, unspecified E11.40 ; Hypertension I10 and Physical debility R53.81 [place] [address] [place] [address] May, [place] [address] [address] Apr, [place] [address] [place] [address] Mar, Type 2 diabetes mellitus with diabetic neuropathy, unspecified E11.40 ; Hypertension I10 ; Diabetes E11.9 ; Dementia with behavioral disturbance, unspecified dementia type F03.91 ; Type 2 diabetes mellitus with complication, without long-term current use of insulin E11.8 and Neck pain M54.2 [place] [address] [facility] [id number] [address] Mar, Dysuria R30.[address] [id number] [address] Feb, [facility] [address] [facility] [id number] [address] Feb, [place] [id number] [address] Jan, [facility] [address] [address] Dec, [facility] [address], [place] [address] Dec, [facility] [address] [address] Dec, [facility] [id number] [place] [address] November, Dental examination Z01.20 and Periodontitis K05.30 [facility] [id number] [place] [address] November, [facility] [id number] [place] [address] November, [facility] [id number] [place] [address] Oct, Encounter for Medicare annual wellness exam [...] hearing loss, unspecified hearing loss type H91.93 [facility] [id number] [address] Oct, [facility] [address], [place] [address] Oct, [facility] [address] [address] Sep, [facility] [address] [address] Aug, Anxiety F41.9 [place] [address] [place] [address] Aug, Encounter for immunization Z23 [place] [id number] [place] [address] Jul, History of cerebrovascular accident with hemiparesis or hemiplegia Z86.73 ; Dementia with behavioral disturbance, unspecified dementia type F03.91 ; Hypothyroidism (acquired) E03.9 ; Type 2 diabetes mellitus with diabetic neuropathy, unspecified E11.40 and 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.39 [place] [id number] [place] [address] Jul, [place] [id number] [place] [address] Jul, Type 2 diabetes mellitus with diabetic neuropathy, unspecified E11.40 ; Anxiety F41.9 ; Vascular dementia without behavioral disturbance F01.50 ; Moderate episode of recurrent major depressive disorder F33.1 ; Onychomycosis of great toe B35.1 ; 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.39 and Type 2 diabetes mellitus with complication, without long-term current use of insulin E11.8 [place] [id number] [place] [address] Jun, Hypertension I10 ; Anxiety F41.9 ; Dementia with behavioral disturbance, unspecified dementia type F03.91 ; 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 ; Moderate episode of recurrent major depressive disorder F33.1 ; Encounter for immunization Z23 ; Skin lesion of left leg L98.9 ; BMI 28.0-28.9,adult Z68.28 and Other chronic pain G89.29 [place] [id number] [place] [address] May, Lymphadenopathy, axillary R59.0 [place] [id number] [place] [address] May, [place] [id number] [place] [address] Apr, [facility] [address], [place] [address] Apr, [facility] [id number] [place] [address] Apr, [facility] [id number] [place] [address] Apr, [facility] [id number] [place] [address] Mar, Anxiety F41.9 ; Moderate episode of recurrent major depressive disorder F33.1 and Dementia with behavioral disturbance, unspecified dementia type F03.91 [place] [id number] [place] [address] Mar, [place] [id number] [place] [address] Mar, Diabetes E11.9 ; Hypothyroidism (acquired) E03.9 ; Hypertension I10 and Type 2 diabetes mellitus with diabetic neuropathy, unspecified E11.40 [place] [id number] [place] [address] Jan, [place] [id number] [place] [address] Dec, Anxiety F41.9 and Moderate episode of recurrent major depressive disorder F33.1 [place] [id number] [place] [address] November, [place] [id number] [place] [address] November, Chronic cough R05 and Cardiomegaly I51.7 [place] [id number] [place] [address] Oct, Medicare annual wellness visit, initial Z00.00 [...] seizures R56.1 and Encounter for immunization Z23 [place] [address] [address] Sep, [place] [address] [place] [id number] Jul, [place] [address] [address] Jul, [place] [address] [address] Jun, Anxiety F41.9 and Moderate episode of recurrent major depressive disorder F33.1 [place] [address] [address] Jun, Bronchitis J40 and Bilateral hearing loss, unspecified hearing loss type H91.93 [place] [address] [address] Jun, [place] [address] [address] Apr, [place] [address] [address] Apr, Encounter for immunization Z23 and Left breast mass N63.20 [place] [address] [address] Apr, [place] [address] [address] Mar, CVA (cerebral vascular accident) I63.9 ; Hypertension I10 ; Non insulin dependent diabetes mellitus with ophthalmic complication E11.39 ; Type 2 diabetes mellitus with diabetic neuropathy, unspecified E11.40 and Left breast mass N63 [place] [address] [address] Mar, Mild episode of recurrent major depressive disorder F33.0 and Anxiety F41.9 [place] [address] [place] [address] Mar, Breast mass, left N63 [place] [address] [place] [address] Mar, Breast mass, left N63 [place] [id number] [place] [address] Feb, [place] [id number] [place] [address] Feb, [place] [address] [place] [address] Feb, [place] [address] [place] [address] Feb, [place] [address] [place] [address] Feb, Onychomycosis B35.1 and Type 2 diabetes mellitus with complication E11.8 [place] [address] [place] [address] Jan, Mild episode of recurrent major depressive disorder F33.0 and Anxiety F41.9 [place] [address] [place] [address] Jan, [place] [address] [place] [address] Dec, Onychomycosis due to dermatophyte B35.1 ; Moderate episode of recurrent major depressive disorder F33.1 ; Type 2 diabetes mellitus with diabetic neuropathy, unspecified E11.40 ; Falls frequently R29.6 ; Neuropathy G62.9 ; Dementia with behavioral disturbance, unspecified dementia type F03.91 ; Hypothyroidism (acquired) E03.9 and Left hand pain M79.642 [place] [address], [place] [address] Dec, [facility] [id number] [place] [address] Dec, Hypothyroidism (acquired) E03.9 [facility] [id number] [place] [address] Dec, 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.39 [facility] [id number] [place] [address] November, Hypothyroidism (acquired) E03.9 [facility] [id number] [place] [address] Oct, [facility] [id number] [place] [address] Oct, Non insulin dependent diabetes mellitus with ophthalmic complication E11.39 [facility] [id number] [place] [address] Oct, [place] [id number] [place] [address] Oct, Dysuria R30.0 ; Non insulin dependent diabetes mellitus with ophthalmic complication E11.39 ; Bilateral hearing loss, unspecified hearing loss type H91.93 and 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 [facility] [id number] [place] [address] Sep, [facility] [id number] [place] [address] Sep, Open wound of right great toe, initial encounter S91.101A [facility] [address] [address] Sep, Breast mass, left N63 ; Non-insulin dependent type 2 diabetes mellitus E11.9 and Vascular dementia without behavioral disturbance F01.50 [facility] [id number] [place] [address] Sep, [place] [id number] [place] [address] Jul, [place] [address] [address] Jul, Diabetes E11.9 ; Diaper dermatitis L22 ; Candidiasis of skin and nail B37.2 ; Neuropathy G62.9 ; Status post stroke Z86.73 ; Unsteadiness on feet R26.81 and 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 [place] [id number] [place] [address] May, [place] [address] [address] May, [place] [address] [address] May, [place] [address] [address] May, Dementia with behavioral disturbance, unspecified dementia type F03.91 [place] [id number] [place] [address] May, Dementia with behavioral disturbance, unspecified dementia type F03.91 ; Encounter for immunization Z23 and Diabetes E11.9 [place] [id number] [place] [address] May, [place] [id number] [place] [address] May, Neuropathy G62.9 [place] [id number] [place] [address] May, [place] [address] [address] Apr, Hypothyroidism (acquired) E03.9 [place] [id number] [place] [address] Apr, CVA (cerebral vascular accident) I63.9 ; Left hand weakness M62.81 and Neuropathy G62.9 [place] [id number] [place] [address] Apr, Hypokalemia E87.6 [place] [id number] [place] [address] Apr, Hypokalemia E87.6 [place] [address] [address] Mar, Diabetes E11.9 ; Edema, unspecified type R60.9 ; Anxiety disorder, unspecified F41.9 ; Pain in left knee M25.562 ; Other chronic pain G89.29 and Status post stroke Z86.73 [place] [address] [address] 15 Mar, 2016 [place] [address] [address] Mar, [place] [id number] [place] [address] Mar, Neuropathy G62.9 [place] [address] [address] Feb, Anorexia R63.0 and Neuropathy G62.9 [place] [id number] [place] [address] Jan, Diabetes E11.9 ; Neuropathy G62.9 ; Panic attack F41.0 ; Pain in left knee M25.562 and Hypertension 401.9 [place] [id number] [place] [address] Jan, Weakness R53.1 ; Fatigue, unspecified type R53.83 ; Falling episodes R29.6 and Neuropathy G62.9 [place] [id number] [place] [address] Jan, Pain in left knee M25.562 [place] [address] [place] [address] Jan, [facility] [id number] [place] [address] Jan, [facility] [id number] [place] [address] Jan, [facility] [id number] [place] [address] Dec, Diabetes E11.9 ; Neuropathy G62.9 and Dementia F03.90 [facility] [id number] [place] [address] Dec, [facility] [id number] [place] [address] Dec, Neuropathy G62.9 ; Diabetes E11.9 ; Anxiety F41.9 and Constipation, unspecified constipation type K59.00 [facility] [id number] [place] [address] Dec, [facility] [id number] [place] [address] Dec, Anxiety F41.9 [facility] [id number] [place] [address] November, [facility] [id number] [place] [address] November, Pain in left knee M25.562 ; Other chronic pain G89.29 ; Diabetes E11.9 and Left eye pain H57.12 [facility] [id number] [place] [address] November, [facility] [id number] [place] [address] November, Hearing loss, unspecified laterality H91.90 [facility] [id number] [place] [address] November, [facility] [address] [place] [address] November, [facility] [id number] [place] [address] November, Pain in right knee M25.561 [facility] [address] [place] [address] November, [facility] [address] [place] [address] Oct, [facility] [address] [place] [address] Oct, [facility] [address] [place] [address] Oct, Edema of left lower extremity R60.0 ; Diabetes E11.9 ; 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 I63.39 and Anxiety disorder, unspecified F41.9 [facility] [id number] [place] [address] Oct, Panic attack F41.0 [facility] [id number] [place] [address] Oct, [facility] [id number] [place] [address] Oct, CVA (cerebral vascular accident) I63.9 [facility] [address] [place] [address] Oct, [facility] [address] [place] [address] Oct, Diabetes E11.9 ; Hypertension I10 and Dementia F03.90 [facility] [address] [place] [address] Sep, [facility] [id number] [place] [address] Sep, [facility] [id number] [place] [address] Sep, Diabetes E11.9 ; 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 ; Onychomycosis B35.1 and Fatigue R53.83 [facility] [id number] [place] [address] Aug, [facility] [id number] [place] [address] Aug, [facility] [address] [place] [address] Jul, [facility] [address] [place] [address] Jul, [facility] [address] [place] [address] Jun, 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 [facility] [address] [place] [address] Jun, Anxiety disorder, unspecified F41.9 and Major depressive disorder, single episode, moderate F32.1 [facility] [id number] [place] [address] Jun, [facility] [address] [place] [address] Jun, [facility] [id number] [place] [address] May, Left knee pain M25.562 [facility] [address] [place] [address] May, [facility] [id number] [place] [address] May, [facility] [id number] [place] [address] May, [facility] [id number] [place] [address] May, Hypertension I10 ; Diabetes E11.9 and Depression F32.9 [facility] [id number] [place] [address] May, [facility] [id number] [place] [address] Apr, Left knee pain M25.562 ; Type 2 diabetes mellitus with complication E11.8 and Encounter for immunization Z23 [facility] [id number] [place] [address] Apr, [facility] [id number] [place] [address] Apr, [facility] [id number] [place] [address] Mar, [facility] [id number] [place] [address] Mar, Silvestre cyst 727.51 [facility] [id number] [place] [address] Mar, [facility] [id number] [place] [address] Mar, [facility] [id number] [place] [address] Mar, [facility] [id number] [place] [address] Feb, [facility] [id number] [place] [address] Feb, [facility] [id number] [place] [address] Feb, Hypertension 401.9 and Diabetes 250.00 [facility] [id number] [place] [address] Jan, [facility] [id number] [place] [address] Jan, Diabetes 250.00 [facility] [address] [address] Jan, [facility] [id number] [place] [address] Jan, [facility] [address] [address] Dec, Diabetes 250.00 and Forgetfulness 780.99 [facility] [id number] [place] [address] Dec, [facility] [id number] [place] [address] Dec, Diabetes mellitus 250.00 [facility] [id number] [place] [address] Dec, [facility] [id number] [place] [address] Dec, [facility] [id number] [address] Dec, [facility] [id number] [place] [address] Dec, Diabetes 250.00 and Dysthymia 300.4 [facility] [id number] [address] Dec, [facility] [id number] [place] [address] Dec, Grief 309.0 and Diabetes mellitus 250.00 [facility] [id number] [address] Oct, [facility] [id number] [address] Oct, [facility] [id number] [address] Jul, [facility] [place] [facility] [address] [id number] [place] [address] Jul, [facility] [place] [facility] [address] [id number] [place] [address] Jul, [facility] [place] [facility] [address] [id number] [place] [address] Jul, [facility] [place] [facility] [address] [id number] [place] [address] Jul, [facility] [place] [facility] [address] [id number] [place] [address] May, [facility] [place] [facility] [address] [id number] [place] [address] May, [facility] [place] [facility] [address] [id number] [place] [address] Apr, [facility] [place] [facility] [address] [id number] [place] [address] Apr, [facility] [place] [facility] [address] [id number] [place] [address] Mar, [facility] [place] [facility] [address] [id number] [place] [address] Mar, [facility] [place] [facility] [address] [id number] [place] [address] Feb, [facility] [place] [facility] [address] [id number] [place] [address] Feb, [facility] [place] [facility] [address] [id number] [place] [address] Feb, [facility] [place] [facility] [address] [id number] [place] [address] Feb, [facility] [place] [facility] [address] [id number] [place] [address] Feb, [facility] [place] [facility] [address] [id number] [place] [address] Feb, [facility] [place] [facility] [address] [id number] [place] [address] November, [facility] [place] [facility] [address] [id number] [place] [address] November, [facility] [place] [facility] [address] [id number] [place] [address] Sep, [facility] [place] [facility] [address] [id number] [place] [address] Sep, [facility] [place] [facility] [address] [id number] [place] [address] Sep, [facility] [place] [facility] [address] [id number] [place] [address] Sep, [facility] [place] [facility] [address] [id number] [place] [address] Sep, [facility] [place] [facility] [address] [id number] [place] [address] Sep, [facility] [place] [facility] [address] [id number] [place] [address] Sep, [facility] [place] [facility] [address] [id number] [place] [address] Sep, [facility] [place] [facility] [address] [id number] [place] [address] Aug, [facility] [place] [facility] [address] [id number] [place] [address] Aug, [facility] [place] [facility] [address] [id number] [place] [address] Jul, [facility] [place] [facility] [address] [id number] [place] [address] Jul, [facility] [place] [facility] [address] [id number] [place] [address] Jul, [facility] [place] [facility] [address] [id number] [place] [address] Jul, [facility] [address] [id number] [place] [address] Jun, [facility] [place] [facility] [address] [id number] [place] [address] Jun, [facility] [address] [id number] [place] [address] May, [facility] [place] [facility] [address] [id number] [place] [address] May, [facility] [address] [id number] [place] [address] May, [facility] [address] [id number] [place] [address] May, [facility] [address] [id number] [place] [address] May, [facility] [address] [id number] [place] [address] May, [facility] [address] [id number] [place] [address] Apr, [facility] [address] [id number] [place] [address] Apr, [facility] [place] [facility] [address] [id number] [place] [address] 16 Apr, 2013 [facility] [place] [facility] [address] [id number] [place] [address] Apr, [facility] [place] [facility] [address] [id number] [place] [address] Mar, [facility] [place] [facility] [address] [id number] [place] [address] 27 Mar, 2013 [facility] [place] [facility] [address] [id number] [place] [address] Jan, [facility] [address] [id number] [place] [address] Jan, [facility] [place] [facility] [address] [id number] [place] [address] Jan, [facility] [address] [id number] [place] [address] November, [facility] [place] [facility] [address] [id number] [place] [address] November, [facility] [address] [id number] [place] [address] November, [facility] [place] [facility] [address] [id number] [place] [address] November, [facility] [address] [id number] [place] [address] Aug, [facility] [address] [id number] [place] [address] Jul, [facility] [address] [id number] [place] [address] Jul, [facility] [address] [id number] [place] [address] Jul, [facility] [address] [id number] [place] [address] Jun, [facility] [place] [facility] [address] [id number] [place] [address] Jun, [facility] [place] [facility] [address] [id number] [place] [address] May, [facility] [place] [facility] [address] [id number] [place] [address] May, [facility] [place] [facility] [address] [id number] [place] [address] Apr, [facility] [place] [facility] [address] [id number] [place] [address] Apr, [facility] [place] [facility] [address] [id number] [place] [address] Apr, [facility] [place] [facility] [address] [id number] [place] [address] Apr, [facility] [place] [facility] [address] [id number] [place] [address] Apr, [facility] [place] [facility] [address] [id number] [place] [address] Apr, [facility] [place] [facility] [address] [id number] [place] [address] Apr, [facility] [place] [facility] [address] [id number] [place] [address] Apr, [facility] [place] [facility] [address] [id number] [place] [address] Apr, [facility] [place] [facility] [address] [id number] [place] [address] Mar, [facility] [place] [facility] [address] [id number] [place] [address] Feb, [facility] [place] [facility] [address] [id number] [place] [address] November, [facility] [place] [facility] [address] [id number] [place] [address] November, [facility] [place] [facility] [address] [id number] [place] [address] November, [facility] [place] [facility] [address] [id number] [place] [address] November, [facility] [place] [facility] [address] [id number] [place] [address] Jun, [facility] [place] [facility] [address] [id number] [place] [address] Jun, [facility] [place] [facility] [address] [facility] [id number] [address] May, [facility] [address] [id number] [address] May, [facility] [address] [facility] [id number], [place] [address] Apr, [facility] [address] [facility] [id number], [place] [address] Apr, [facility] [address] [facility] [id number], [place] [address] May, [facility] [id number], [place] [address] Apr, [facility] [id number], [place] [address] Apr, [facility] [id number], [place] [address] Apr, [facility] [address] [id number] [address] Apr, IMMUNIZATIONS No Known Immunizations SOCIAL HISTORY [...] Hospitalization History Post Stroke pt went to [facility] [place] [facility]15 Hospitalization History Hypotension, Wander ateral leg weakness--[facility] 01/15/16 Hospitalization History hypertension/chest pain 03/2017
--- OUTSIDE RECORDS SUMMARY | 2023-03-21 11:30 | XMS REPORT ---
Author Author Lady SIMMONS Organization [facility] Address [address] [place] [address] Care Team Providers Care Food General Manager Name Role Phone OMI SIMMONS Unavailable PROBLEMS Type Condition ICD9-CM Code CNK29-NP Code Onset Dates Condition Status SNOMED Code Problem Panic attack F41.0 Active 596410250 Problem Hypertension I10 Active 92160308 Problem Anxiety F41.9 Active 00401275 Problem Other chronic pain G89.29 Active 78360 001 Problem Dementia with behavioral disturbance, unspecified dementia type F03.91 Active 4349417404115 Problem Hypothyroidism (acquired) E03.9 Active 752730749 Problem Vascular dementia without behavioral disturbance F01.50 Active 871374824 Problem 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 Active 024224980228 Problem Falls frequently R29.6 Active 0305255 02 Problem Type 2 diabetes mellitus with diabetic neuropathy, unspecified E11.40 Active 44043020 Problem Moderate episode of recurrent major depressive disorder F33.1 Active 49711934 1 Problem Cardiomegaly I51.7 Active 8062148 Problem 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 Active 530503195 Problem Diabetes E11.9 Active 558394391 Problem Non insulin dependent diabetes mellitus with ophthalmic complication E11.39 Active 39500666 Problem History of cerebrovascular accident with hemiparesis or hemiplegia Z86.73 Active 834879747 Problem Bilateral hearing loss, unspecified hearing loss type H91.93 Active 65829246 Problem SNHL (sensory-neural hearing loss), 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 Active 257754069 Problem Left-sided muscle weakness M62.81 Active 211479313 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 12586117 ALLERGIES No Information ENCOUNTERS Encounter Location Date Diagnosis [facility] [address] [facility] [id number] [address] Dec, [facility] [id number] [address] Oct, [facility] [address] [address] Oct, [facility] [id number] [place] [address] Aug, [facility] [address] [address] Aug, [facility] [id number] [place] [address] Aug, [facility] [id number] [place] [address] Jul, Non insulin dependent diabetes mellitus with ophthalmic complication E11.39 ; Type 2 diabetes mellitus with diabetic neuropathy, unspecified E11.40 ; Hypertension I10 and Physical debility R53.81 [place] [id number] [place] [address] May, [place] [address] [address] Apr, [place] [id number] [place] [address] Mar, Type 2 diabetes mellitus with diabetic neuropathy, unspecified E11.40 ; Hypertension I10 ; Diabetes E11.9 ; Dementia with behavioral disturbance, unspecified dementia type F03.91 ; Type 2 diabetes mellitus with complication, without long-term current use of insulin E11.8 and Neck pain M54.2 [place] [address] [facility] [id number], [place] [address] Mar, Dysuria R30.[address] [id number] [address] Feb, [facility] [address] [facility] [id number], [place] [address] Feb, [place] [id number] [address] Jan, [facility] [address] [address] Dec, [facility] [address] [address] Dec, [facility] [address] [address] Dec, [facility] [id number] [place] [address] November, Dental examination Z01.20 and Periodontitis K05.30 [facility] [id number] [place] [address] November, [facility] [id number] [place] [address] November, [facility] [id number] [place] [address] Oct, Encounter for Medicare annual wellness exam [...] hearing loss, unspecified hearing loss type H91.93 [facility] [id number] [address] Oct, [facility] [address], [place] [address] Oct, [facility] [address], [place] [address] Sep, [facility] [address], [place] [address] Aug, Anxiety F41.9 [place] [id number] [place] [address] Aug, Encounter for immunization Z23 [place] [id number] [place] [address] Jul, History of cerebrovascular accident with hemiparesis or hemiplegia Z86.73 ; Dementia with behavioral disturbance, unspecified dementia type F03.91 ; Hypothyroidism (acquired) E03.9 ; Type 2 diabetes mellitus with diabetic neuropathy, unspecified E11.40 and Non insulin dependent diabetes mellitus with ophthalmic complication E11.39 [place] [id number] [place] [address] Jul, [place] [id number] [place] [address] Jul, Type 2 diabetes mellitus with diabetic neuropathy, unspecified E11.40 ; Anxiety F41.9 ; Vascular dementia without behavioral disturbance F01.50 ; Moderate episode of recurrent major depressive disorder F33.1 ; Onychomycosis of great toe B35.1 ; 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.39 and Type 2 diabetes mellitus with complication, without long-term current use of insulin E11.8 [address] [id number] [place] [address] Jun, Hypertension I10 ; Anxiety F41.9 ; Dementia with behavioral disturbance, unspecified dementia type F03.91 ; 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.39 ; Moderate episode of recurrent major depressive disorder F33.1 ; Encounter for immunization Z23 ; Skin lesion of left leg L98.9 ; BMI 28.0-28.9,adult Z68.28 and Other chronic pain G89.29 [place] [id number] [place] [address] May, Lymphadenopathy, axillary R59.0 [place] [id number] [place] [address] May, [place] [id number] [place] [address] Apr, [facility] [address], [place] [address] Apr, [facility] [id number] [place] [address] Apr, [facility] [id number] [place] [address] Apr, [facility] [id number] [place] [address] Mar, Anxiety F41.9 ; Moderate episode of recurrent major depressive disorder F33.1 and Dementia with behavioral disturbance, unspecified dementia type F03.91 [place] [id number] [place] [address] Mar, [place] [id number] [place] [address] Mar, Diabetes E11.9 ; Hypothyroidism (acquired) E03.9 ; Hypertension I10 and Type 2 diabetes mellitus with diabetic neuropathy, unspecified E11.40 [place] [id number] [place] [address] Jan, [place] [id number] [place] [address] Dec, Anxiety F41.9 and Moderate episode of recurrent major depressive disorder F33.1 [place] [id number] [place] [address] November, [place] [id number] [place] [address] November, Chronic cough R05 and Cardiomegaly I51.7 [place] [id number] [place] [address] Oct, Medicare annual wellness visit, initial Z00.00 [...] seizures R56.1 and Encounter for immunization Z23 [place] [address] [address] Sep, [place] [address] [place] [id number] Jul, [place] [address] [address] Jul, [place] [address] [address] Jun, Anxiety F41.9 and Moderate episode of recurrent major depressive disorder F33.1 [place] [address] [address] Jun, Bronchitis J40 and Bilateral hearing loss, unspecified hearing loss type H91.93 [place] [address] [address] Jun, [place] [address] [address] Apr, [place] [address] [address] Apr, Encounter for immunization Z23 and Left breast mass N63.20 [place] [address] [address] Apr, [place] [address] [address] Mar, CVA (cerebral vascular accident) I63.9 ; Hypertension I10 ; Non insulin dependent diabetes mellitus with ophthalmic complication E11.39 ; Type 2 diabetes mellitus with diabetic neuropathy, unspecified E11.40 and Left breast mass N63 [place] [address] [address] Mar, Mild episode of recurrent major depressive disorder F33.0 and Anxiety F41.9 [place] [id number] [place] [address] Mar, Breast mass, left N63 [place] [id number] [place] [address] Mar, Breast mass, left N63 [place] [id number] [place] [address] Feb, [place] [id number] [place] [address] Feb, [place] [id number] [place] [address] Feb, [place] [id number] [place] [address] Feb, [place] [id number] [place] [address] Feb, Onychomycosis B35.1 and Type 2 diabetes mellitus with complication E11.8 [place] [id number] [place] [address] Jan, Mild episode of recurrent major depressive disorder F33.0 and Anxiety F41.9 [place] [id number] [place] [address] Jan, [place] [id number] [place] [address] Dec, Onychomycosis due to dermatophyte B35.1 ; Moderate episode of recurrent major depressive disorder F33.1 ; Type 2 diabetes mellitus with diabetic neuropathy, unspecified E11.40 ; Falls frequently R29.6 ; Neuropathy G62.9 ; Dementia with behavioral disturbance, unspecified dementia type F03.91 ; Hypothyroidism (acquired) E03.9 and Left hand pain M79.642 [place] [id number] [address] Dec, [facility] [id number] [place] [address] Dec, Hypothyroidism (acquired) E03.9 [facility] [id number] [place] [address] Dec, Non insulin dependent diabetes mellitus with ophthalmic complication E11.39 [facility] [id number] [place] [address] November, Hypothyroidism (acquired) E03.9 [facility] [id number] [place] [address] Oct, [facility] [id number] [place] [address] Oct, Non insulin dependent diabetes mellitus with ophthalmic complication E11.39 [facility] [id number] [place] [address] Oct, [place] [id number] [place] [address] Oct, Dysuria R30.0 ; Non insulin dependent diabetes mellitus with ophthalmic complication E11.39 ; Bilateral hearing loss, unspecified hearing loss type H91.93 and 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 [facility] [id number] [place] [address] Sep, [facility] [id number] [place] [address] Sep, Open wound of right great toe, initial encounter S91.101A [facility] [address] [address] Sep, Breast mass, left N63 ; Non-insulin dependent type 2 diabetes mellitus E11.9 and Vascular dementia without behavioral disturbance F01.50 [facility] [id number] [place] [address] Sep, [place] [id number] [place] [address] Jul, [place] [address] [address] Jul, Diabetes E11.9 ; Diaper dermatitis L22 ; Candidiasis of skin and nail B37.2 ; Neuropathy G62.9 ; Status post stroke Z86.73 ; Unsteadiness on feet R26.81 and 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 [place] [id number] [place] [address] May, [place] [address] [address] May, [place] [address] [address] May, [place] [address] [address] May, Dementia with behavioral disturbance, unspecified dementia type F03.91 [place] [id number] [place] [address] May, Dementia with behavioral disturbance, unspecified dementia type F03.91 ; Encounter for immunization Z23 and Diabetes E11.9 [place] [id number] [place] [address] May, [place] [id number] [place] [address] May, Neuropathy G62.9 [place] [id number] [place] [address] May, [place] [address] [address] Apr, Hypothyroidism (acquired) E03.9 [place] [id number] [place] [address] Apr, CVA (cerebral vascular accident) I63.9 ; Left hand weakness M62.81 and Neuropathy G62.9 [place] [id number] [place] [address] Apr, Hypokalemia E87.6 [place] [id number] [place] [address] Apr, Hypokalemia E87.6 [place] [address] [address] Mar, Diabetes E11.9 ; Edema, unspecified type R60.9 ; Anxiety disorder, unspecified F41.9 ; Pain in left knee M25.562 ; Other chronic pain G89.29 and Status post stroke Z86.73 [place] [address] [address] 15 Mar, 2016 [place] [address] [address] Mar, [place] [id number] [place] [address] Mar, Neuropathy G62.9 [place] [address] [address] Feb, Anorexia R63.0 and Neuropathy G62.9 [place] [id number] [place] [address] Jan, Diabetes E11.9 ; Neuropathy G62.9 ; Panic attack F41.0 ; Pain in left knee M25.562 and Hypertension 401.9 [place] [id number] [place] [address] Jan, Weakness R53.1 ; Fatigue, unspecified type R53.83 ; Falling episodes R29.6 and Neuropathy G62.9 [place] [id number] [place] [address] Jan, Pain in left knee M25.562 [place] [address] [place] [address] Jan, [facility] [id number] [place] [address] Jan, [facility] [id number] [place] [address] Jan, [facility] [id number] [place] [address] Dec, Diabetes E11.9 ; Neuropathy G62.9 and Dementia F03.90 [facility] [id number] [place] [address] Dec, [facility] [id number] [place] [address] Dec, Neuropathy G62.9 ; Diabetes E11.9 ; Anxiety F41.9 and Constipation, unspecified constipation type K59.00 [facility] [id number] [place] [address] Dec, [facility] [id number] [place] [address] Dec, Anxiety F41.9 [facility] [id number] [place] [address] November, [facility] [id number] [place] [address] November, Pain in left knee M25.562 ; Other chronic pain G89.29 ; Diabetes E11.9 and Left eye pain H57.12 [facility] [id number] [place] [address] November, [facility] [id number] [place] [address] November, Hearing loss, unspecified laterality H91.90 [facility] [id number] [place] [address] November, [facility] [address] [place] [address] November, [facility] [id number] [place] [address] November, Pain in right knee M25.561 [facility] [id number] [place] [address] November, [facility] [id number] [place] [address] Oct, [facility] [id number] [place] [address] Oct, [facility] [id number] [place] [address] Oct, Edema of left lower extremity R60.0 ; Diabetes E11.9 ; 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 I63.39 and Anxiety disorder, unspecified F41.9 [facility] [id number] [place] [address] Oct, Panic attack F41.0 [facility] [id number] [place] [address] Oct, [facility] [id number] [place] [address] Oct, CVA (cerebral vascular accident) I63.9 [facility] [id number] [place] [address] Oct, [facility] [id number] [place] [address] Oct, Diabetes E11.9 ; Hypertension I10 and Dementia F03.90 [facility] [id number] [place] [address] Sep, [facility] [id number] [place] [address] Sep, [facility] [id number] [place] [address] Sep, Diabetes E11.9 ; 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 ; Onychomycosis B35.1 and Fatigue R53.83 [facility] [id number] [place] [address] Aug, [facility] [id number] [place] [address] Aug, [facility] [id number] [place] [address] Jul, [facility] [id number] [place] [address] Jul, [facility] [id number] [place] [address] Jun, 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 [facility] [id number] [place] [address] Jun, Anxiety disorder, unspecified F41.9 and Major depressive disorder, single episode, moderate F32.1 [facility] [id number] [place] [address] Jun, [facility] [id number] [place] [address] Jun, [facility] [id number] [place] [address] May, Left knee pain M25.562 [facility] [id number] [place] [address] May, [facility] [id number] [place] [address] May, [facility] [id number] [place] [address] May, [facility] [id number] [place] [address] May, Hypertension I10 ; Diabetes E11.9 and Depression F32.9 [facility] [id number] [place] [address] May, [facility] [id number] [place] [address] Apr, Left knee pain M25.562 ; Type 2 diabetes mellitus with complication E11.8 and Encounter for immunization Z23 [facility] [id number] [place] [address] Apr, [facility] [id number] [place] [address] Apr, [facility] [id number] [place] [address] Mar, [facility] [id number] [place] [address] Mar, Silvestre cyst 727.51 [facility] [id number] [place] [address] Mar, [facility] [id number] [place] [address] Mar, [facility] [id number] [place] [address] Mar, [facility] [id number] [place] [address] Feb, [facility] [id number] [place] [address] Feb, [facility] [id number] [place] [address] Feb, Hypertension 401.9 and Diabetes 250.00 [facility] [id number] [place] [address] Jan, [facility] [id number] [place] [id number] Jan, Diabetes 250.00 [facility] [id number] [address] Jan, [facility] [id number] [place] [address] Jan, [facility] [id number] [address] Dec, Diabetes 250.00 and Forgetfulness 780.99 [facility] [id number] [place] [address] Dec, [facility] [id number] [place] [address] Dec, Diabetes mellitus 250.00 [facility] [id number] [place] [address] Dec, [facility] [id number] [place] [id number] Dec, [facility] [id number] [address] Dec, [facility] [id number] [place] [address] Dec, Diabetes 250.00 and Dysthymia 300.4 [facility] [id number] [address] Dec, [facility] [id number] [place] [address] Dec, Grief 309.0 and Diabetes mellitus 250.00 [facility] [id number] [address] Oct, [facility] [id number] [address] Oct, [facility] [id number] [place] [address] Jul, [facility] [place] [facility] [address] [id number] [place] [address] Jul, [facility] [place] [facility] [address] [id number] [place] [address] Jul, [facility] [place] [facility] [address] [id number] [place] [address] Jul, [facility] [place] [facility] [address] [id number] [place] [address] Jul, [facility] [place] [facility] [address] [id number] [place] [address] May, [facility] [place] [facility] [address] [id number] [place] [address] May, [facility] [place] [facility] [address] [id number] [place] [address] Apr, [facility] [place] [facility] [address] [id number] [place] [address] Apr, [facility] [place] [facility] [address] [id number] [place] [address] Mar, [facility] [place] [facility] [address] [id number] [place] [address] Mar, [facility] [place] [facility] [address] [id number] [place] [address] Feb, [facility] [place] [facility] [address] [id number] [place] [address] Feb, [facility] [place] [facility] [address] [id number] [place] [address] Feb, [facility] [place] [facility] [address] [id number] [place] [address] Feb, [facility] [place] [facility] [address] [id number] [place] [address] Feb, [facility] [place] [facility] [address] [id number] [place] [address] Feb, [facility] [place] [facility] [address] [id number] [place] [address] November, [facility] [place] [facility] [address] [id number] [place] [address] November, [facility] [place] [facility] [address] [id number] [place] [address] Sep, [facility] [place] [facility] [address] [id number] [place] [address] Sep, [facility] [place] [facility] [address] [id number] [place] [address] Sep, [facility] [place] [facility] [address] [id number] [place] [address] Sep, [facility] [place] [facility] [address] [id number] [place] [address] Sep, [facility] [place] [facility] [address] [id number] [place] [address] Sep, [facility] [place] [facility] [address] [id number] [place] [address] Sep, [facility] [place] [facility] [address] [id number] [place] [address] Sep, [facility] [place] [facility] [address] [id number] [place] [address] Aug, [facility] [place] [facility] [address] [id number] [place] [address] Aug, [facility] [place] [facility] [address] [id number] [place] [address] Jul, [facility] [place] [facility] [address] [id number] [place] [address] Jul, [facility] [place] [facility] [address] [id number] [place] [address] Jul, [facility] [place] [facility] [address] [id number] [place] [address] Jul, [facility] [address] [id number] [place] [address] Jun, [facility] [place] [facility] [address] [id number] [place] [address] Jun, [facility] [address] [id number] [place] [address] May, [facility] [place] [facility] [address] [id number] [place] [address] May, [facility] [address] [id number] [place] [address] May, [facility] [address] [id number] [place] [address] May, [facility] [address] [id number] [place] [address] May, [facility] [address] [id number] [place] [address] May, [facility] [address] [id number] [place] [address] Apr, [facility] [address] [id number] [place] [address] Apr, [facility] [place] [facility] [address] [id number] [place] [address] 16 Apr, 2013 [facility] [place] [facility] [address] [id number] [place] [address] Apr, [facility] [place] [facility] [address] [id number] [place] [address] Mar, [facility] [place] [facility] [address] [id number] [place] [address] 27 Mar, 2013 [facility] [place] [facility] [address] [id number] [place] [address] Jan, [facility] [address] [id number] [place] [address] Jan, [facility] [place] [facility] [address] [id number] [place] [address] Jan, [facility] [address] [id number] [place] [address] November, [facility] [place] [facility] [address] [id number] [place] [address] November, [facility] [address] [id number] [place] [address] November, [facility] [place] [facility] [address] [id number] [place] [address] November, [facility] [address] [id number] [place] [address] Aug, [facility] [address] [id number] [place] [address] Jul, [facility] [address] [id number] [place] [address] Jul, [facility] [address] [id number] [place] [address] Jul, [facility] [address] [id number] [place] [address] Jun, [facility] [place] [facility] [address] [id number] [place] [address] Jun, [facility] [place] [facility] [address] [id number] [place] [address] May, [facility] [place] [facility] [address] [id number] [place] [address] May, [facility] [place] [facility] [address] [id number] [place] [address] Apr, [facility] [place] [facility] [address] [id number] [place] [address] Apr, [facility] [place] [facility] [address] [id number] [place] [address] Apr, [facility] [place] [facility] [address] [id number] [place] [address] Apr, [facility] [place] [facility] [address] [id number] [place] [address] Apr, [facility] [place] [facility] [address] [id number] [place] [address] Apr, [facility] [place] [facility] [address] [id number] [place] [address] Apr, [facility] [place] [facility] [address] [id number] [place] [address] Apr, [facility] [place] [facility] [address] [id number] [place] [address] Apr, [facility] [place] [facility] [address] [id number] [place] [address] Mar, [facility] [place] [facility] [address] [id number] [place] [address] Feb, [facility] [place] [facility] [address] [id number] [place] [address] November, [facility] [place] [facility] [address] [id number] [place] [address] November, [facility] [place] [facility] [address] [id number] [place] [address] November, [facility] [place] [facility] [address] [id number] [place] [address] November, [facility] [place] [facility] [address] [id number] [place] [address] Jun, [facility] [place] [facility] [address] [id number] [place] [address] Jun, [facility] [place] [facility] [address] [facility] [id number], [place] [address] May, [facility] [address] [id number], [place] [address] May, [facility] [address] [facility] [id number], [place] [address] Apr, [facility] [address] [facility] [id number], [place] [address] Apr, [facility] [address] [facility] [id number], [place] [address] May, [facility] [id number], [place] [address] Apr, [facility] [id number], [place] [address] Apr, [facility] [id number], [place] [address] Apr, [facility] [address] [id number], [place] [address] Apr, IMMUNIZATIONS No Known Immunizations SOCIAL HISTORY [...] Hospitalization History Post Stroke [facility] Hospitalization History Hypotension, Wander ateral leg weakness--Via [facility] 01/15/16 Hospitalization History hypertension/chest pain 03/2017
--- OUTSIDE RECORDS SUMMARY | 2023-03-21 11:31 | XMS REPORT ---
Author Author [facility] ter of [facility] ter 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.73 confirmed 762603221 10/2015 Problem Other chronic pain G89.29 confirmed 61379537 Problem Hypertension I10 confirmed 8354346 3 Problem Hypothyroidis m (acquired) E03.9 confirmed 357667642 Problem Anxiety F41.9 confirmed 53811865 Problem 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 confirmed 80909357 9 102 Problem Dementia with behavioral disturbance, unspecified dementia type F03.91 confirmed 413452 011 9103 Problem Polymyalgia rheumatica M35.3 confirmed 58384744 Problem PVD (peripheral vascular disease) I73.9 confirmed 773608512 Problem Critical ischemia of lower extremity I70.229 confirmed 112571976 Peripher al Angiogra phy 06/05/20 20 Problem Type 2 diabetes mellitus with diabetic neuropathy, unspecified E11.40 confirmed 15973646 Problem Falls frequently R29.6 confirmed 190428652 Problem Left-sided muscle weakness M62.81 confirmed 963501808 Problem Moderate episode of recurrent major depressive disorder F33.1 confirmed 708347056 Problem 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 39689364 s/p CVA Problem SNHL (sensory-neur al hearing loss), 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 confirmed 618347060 Problem Chronic kidney disease, stage 3 (moderate) N18.3 confirmed 158981312 Problem Cardiomegaly I51.7 confirmed 0972544 Problem Type 2 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, without long-term current use of insulin E11.52 confirmed 288960676 Problem Type 2 diabetes mellitus with diabetic neuropathy, without long-term current use of insulin E11.40 confirmed 33257282 Problem Pressure ulcer of other site, stage 3 L89.893 confirmed 404900759 Problem Stage 3 chronic kidney disease, unspecified whether stage 3a or 3b CKD N18.30 confirmed 454062962 Problem Non insulin dependent diabetes mellitus with ophthalmic complication E11.39 confirmed 15569965 Problem Hypothyroidis m E03.9 confirmed 68760419 Problem Vascular dementia without behavioral disturbance F01.50 confirmed 231799758 Problem 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 confirmed 588045851 Problem Type 2 diabetes mellitus with other diabetic ophthalmic complication E11.39 confirmed 759112957 Problem Osteoporosis M81.0 confirmed 8210575 6 Problem Vascular dementia with behavior disturbance F01.51 confirmed 96541888 0 483954 Problem Stage 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 confirmed 135246023 ALLERGIES Allergen (clinical drug ingredient) Drug/Non Drug Allergy documented on EMR Reaction Allergy Type Onset Date Status liraglutide Victoza([facility] Code:[address]-83) stomach upset Drug Allergy Active ENCOUNTERS from 1937 to 2022-09-24 Encounter Location Date Provider Diagnosis [facility] [address] [facility] [id number] [place] [address] 08 Oct, 2020 FAHAD GAULT Anxiety F41.9 IMMUNIZATIONS Vaccine Route Administration Date Status PRIVATE SHINGRIX (HERPES ZOS TER-2 DOSE) IM Intramuscular Aug 16, 2018 Administered PRIVATE SHINGRIX (HERPES ZOS TER-2 DOSE) IM Intramuscular November 08, 2018 Administered FLUZONE HIGH DOSE 0.5ML (65 and UP) 2017 IM Intramuscular Jun 15, 2018 Administered influenza (history) Unknown Apr 22, 2019 Administ ered COVID-19 Moderna (history) Unknown September 12, 2020 Administered FLUARIX QUAD (3 & UP)-GSK-2014 IM Intramuscular Apr 132014 Administered PRIVATE HIGH DOSE FLU 22-23 (FLUZONE HD) AGE 65YRS AND UP IM Intramuscular Apr 17, 2022 Administer ed FLUZONE HIGH DOSE 65 AND UP 2015 IM Intramuscular May 28, 2016 Administered FLUZONE HIGH DOSE (65 AND UP) 2016 IM Intramuscular Oc 2016 Administered PRIVATE PPSV23 (PNEUMOVAX) IM Intramuscular October 12, 2017 Administered influenza (history) Unknown Jun 15, 2020 Administ jefe influenza H1N1 (history) Unknown Jun 02, 2009 Adm inistered COVID-19 Moderna (history) Unknown Aug 16, 2020 A dministered PRIVATE TDAP (BOOSTRIX) IM Intramuscular October 12 8 Administered influenza IIV3 (history) Unknown May 02, 2014 Adm inistered influenza IIV3 (history) Unknown Apr 28, 2013 Adm inistered influenza IIV3 (history) Unknown Apr 12, 2012 Adm inistered influenza IIV3 (history) Unknown Apr 22, 2011 Adm inistered influenza IIV3 (history) Unknown Apr 12, 2009 Adm inistered PRIVATE PCV 13 (PREVNAR) IM Intramuscular May 28, 2016 Administered Influenza, seasonal, injecta ble (split), for 3 yrs and up Unknown Apr 29, 2010 Administered SOCIAL HISTORY Sex Assigned At : Social History Observation Description Sex Assigned At Unknown Alcohol Screen (Audit-C) Question Answer Notes Did you have a drink containing alcohol in the p ast year? No Points 0 Interpretation Negative PHQ2 Question Answer Notes In the last 2 weeks, how oft en have you had little interest or pleasure in doing things? Several days In the last 2 weeks, how oft en have you been feeling down, depressed, or hopeless? Several days Total PHQ2 Score 2 Tobacco use other than smoking: Question Answer Notes Are you an other tobacco user? No REASON FOR REFERRAL No Information MEDICATIONS Medication SIG (Take, Route, Frequency, Duration) Notes Start Date End Date Status busPIRone HCl 10 MG 1 tablet Orally Twic e a day for 90 days Jun, Active Donepezil HCl 5 MG TAKE ONE (1) TABLET BY MOUTH ONCE DAILY AT BEDTIME for 90 Active Blood Glucose Test - as directed In Vitr o for 30 days For glucocard shine Mar, Active amLODIPine Besylate 10 MG TAKE ONE (1) TABLET BY MOUTH ONCE DAILY for 90 Active Lancets - as directed twice a day for 30 days Mar, Active Bydureon BCise 2 MG/0.85ML INJECT 2MG SUBCUTANEOUSLY (UNDER THE SKIN) ONCE EVERY WEEK for 28 Active levETIRAcetam 500 MG TAKE ONE (1) TABLET BY MOUTH TWICE DAILY for 90 Active Clopidogrel Bisulfate 75 MG TAKE ONE (1) TABLET BY MOUTH ONCE DAILY for 30 Active Atorvastatin Calcium 20 MG TAKE ONE (1) TABLET BY MOUTH ONCE DAILY for 90 Active Sertraline HCl 100 MG TAKE ONE AND ONE-HALF (1 & 1/2) TABLETS BY MOUTH ONCE DAILY for 90 Active Levothyroxine Sodium 75 MCG TAKE ONE (1) TABLET BY MOUTH ONCE DAILY IN THE MORNING ON AN EMPTY STOMACH for 90 days Active Azithromycin 250 MG as directed Orally 2 tablets on day 1 then one daily for 5 days Active Benzonatate 100 MG 1 capsule as needed Orally Three times a day for 10 days Jun, Active Aspirin 81 MG 1 tablet Orally Once a day for 30 day(s) Jul, Active QUEtiapine Fumarate 50 MG TAKE ONE AND ONE-HALF (1 & 1/2) TABLETS BY MOUTH ONCE DAILY AT BEDTIME for 90 Active Alendronate Sodium 70 MG TAKE ONE (1) TABLET BY MOUTH ONCE WEEKLY 30 MINUTES BEFORE FIRST FOOD; BEVERAGE; OR MEDICINE OF THE DAY WITH PLAIN WATER for 28 Active REASON FOR VISIT Refill Request MEDICAL (GENERAL) HISTORY Type Description Date Medical [...] Surgical History melanoma removal from right leg Surgical History [facility] Angioplasti 05/2020 Hospitalization History surgeries Hospitalization History VC for hyperglycemia 07/28 Hospitalization History Post Stroke pt went to [facility] and then [facility] 10/15/15 Hospitalization History Hypotension, Wander ateral leg weakness--Via [facility] 01/15/16 Hospitalization History hypertension/chest pain 03/2017 MENTAL STATUS No Information ASSESSMENTS Encounter Date Diagnosis Assessment Notes Treatment Notes Treatment Clinical Notes Oct, Anxiety (ICD-10 - F41.9) PLAN OF TREATMENT Medication Medication Name Sig Start Date Stop Date Bydureon BCise 2 MG/0.85ML INJECT 2MG BUTLER BCUTANEOUSLY (UNDER THE SKIN) ONCE EVERY WEEK for 28 Aspirin 81 MG 1 tablet Orally Once a day for 30 day(s) Jul, Azithromycin 250 MG as directed Orally 2 tablets on day 1 then one daily for 5 days QUEtiapine Fumarate 50 MG TAKE ONE AND O NE-HALF (1 & 1/2) TABLETS BY MOUTH ONCE DAILY AT BEDTIME for 90 busPIRone HCl 10 MG 1 tablet Orally Twic e a day for 90 days Jun, Donepezil HCl 5 MG TAKE ONE (1) TABLET BY MOUTH ONCE DAILY AT BEDTIME for 90 Benzonatate 100 MG 1 capsule as needed Orally Three times a day for 10 days Jun, Clopidogrel Bisulfate 75 MG TAKE ONE (1) TABLET BY MOUTH ONCE DAILY for 30 Alendronate Sodium 70 MG TAKE ONE (1) TA BLET BY MOUTH ONCE WEEKLY 30 MINUTES BEFORE FIRST FOOD; BEVERAGE; OR MEDICINE OF THE DAY WITH PLAIN WATER for 28 Levothyroxine Sodium 75 MCG TAKE ONE (1) TABLET BY MOUTH ONCE DAILY IN THE MORNING ON AN EMPTY STOMACH for 90 days Next Appt Details Provider Name:FAHAD MENDEZ, 2 023-04-25 09:40:00 AM, [address] [place], [address], Insurance Providers Payer Name Payer Address Payer Phone Insured Name Patient Relationship to Insured Coverage Start Date Coverage End Date Subscriber Number Group Number [employer] MEDICARE Part A [address] [facility] [address] [phone] Lady Méndez Self - patient is the insured [id number] [facility] [address] [facility] [address] Lady Méndez Self - patient is the insured [id number]
--- OUTSIDE RECORDS SUMMARY | 2023-03-21 11:31 | XMS REPORT ---
Author Author [facility] ter of [facility] Address Unknown Phone Unavailable Care Team Providers Care Line Erector Name Role Phone FAHAD MENDEZ Unavailable PROBLEMS Type Condition ICD9-CM Code AYS28-FB Code Onset Dates Condition Status W/U Status Risk SNOMED Code Notes Problem Hypertension I10 confirmed 2151088 3 Problem Anxiety F41.9 confirmed 87480815 Problem Other chronic pain G89.29 confirmed 23828832 Problem Dementia with behavioral disturbance, unspecified dementia type F03.91 confirmed 508280 011 9103 Problem Hypothyroidis m (acquired) E03.9 confirmed 383457518 Problem Vascular dementia without behavioral disturbance F01.50 confirmed 470779723 Problem 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 confirmed 93169410 9 102 Problem Type 2 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, without long-term current use of insulin E11.52 confirmed 634214909 Problem Polymyalgia rheumatica M35.3 confirmed 62334355 Problem 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.73 confirmed 243512718 10/2015 Problem Critical ischemia of lower extremity I70.229 confirmed 633299144 Peripher al Angiogra phy 06/05/20 20 Problem Moderate episode of recurrent major depressive disorder F33.1 confirmed 944111912 Problem Type 2 diabetes mellitus with diabetic neuropathy, unspecified E11.40 confirmed 69087959 Problem SNHL (sensory-neur al hearing loss), 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 confirmed 709003788 Problem Left-sided muscle weakness M62.81 confirmed 709937035 Problem Cardiomegaly I51.7 confirmed 9232691 Problem 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 66768910 s/p CVA Problem PVD (peripheral vascular disease) I73.9 confirmed 775397434 Problem Chronic kidney disease, stage 3 (moderate) N18.3 confirmed 740805514 Problem Type 2 diabetes mellitus with diabetic neuropathy, without long-term current use of insulin E11.40 confirmed 72318569 Problem Pressure ulcer of other site, stage 3 L89.893 confirmed 712092828 Problem Type 2 diabetes mellitus with other diabetic ophthalmic complication E11.39 confirmed 466171131 Problem Hypothyroidis m E03.9 confirmed 37689837 Problem 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 confirmed 109146305 Problem Chronic renal failure, stage 3 (moderate), unspecified whether stage 3a or 3b CKD N18.30 confirmed Problem Non insulin dependent diabetes mellitus with ophthalmic complication E11.39 confirmed 03873191 Problem Falls frequently R29.6 confirmed 455199711 Problem Osteoporosis M81.0 confirmed 2800526 6 Problem Vascular dementia with behavior disturbance F01.51 confirmed 35906354 0 877298 Problem Stage 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 confirmed 918947358 Problem Stage 3 chronic kidney disease, unspecified whether stage 3a or 3b CKD N18.30 confirmed 016759459 ALLERGIES Allergen (clinical drug ingredient) Drug/Non Drug Allergy documented on EMR Reaction Allergy Type Onset Date Status liraglutide Victoza([facility] Code:[address]-47) stomach upset Drug Allergy Active ENCOUNTERS from 1937 to 2022-10-16 Encounter Location Date Provider Diagnosis [facility] [address] [facility] [id number] [place] [address] Oct, FAHAD MENDEZ IMMUNIZATIONS Vaccine Route Administration Date Status PRIVATE [...] influenza (history) Unknown Jun 15, 2020 Administ erekeaton influenza H1N1 (history) Unknown Jun 02, 2009 [...] Hospitalization History Post Stroke pt went to [facility] and then [facility] 10/15/15 [...] ON AN EMPTY STOMACH for 90 days Insurance Providers Payer Name Payer Address Payer Phone Insured Name Patient Relationship to Insured Coverage Start Date Coverage End Date Subscriber Number Group Number NGS MEDICARE Part A [address] [facility] [address] Lady Méndez Self - patient is the insured [id number] [facility] [address] [address] [facility] [address] [phone] Lady Méndez Self - patient is the insured [id number]
--- OUTSIDE RECORDS SUMMARY | 2023-03-21 11:31 | XMS REPORT ---
Author Author [facility] ter of [facility] ter of [facility] Address Unknown Phone Unavailable Care Team Providers Care Refresh Technician Name Role Phone FAHAD MENDEZ Unavailable PROBLEMS Type Condition ICD9-CM Code [id number] Code Onset Dates Condition Status W/U Status Risk SNOMED Code Notes Problem Hypothyroidis m (acquired) E03.9 confirmed 647495148 Problem 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 confirmed 18582811 9 102 Problem Dementia with behavioral disturbance, unspecified dementia type F03.91 confirmed 248681 011 9103 Problem Non insulin dependent diabetes mellitus with ophthalmic complication E11.39 confirmed 11449495 Problem Vascular dementia without behavioral disturbance F01.50 confirmed 237952406 Problem Falls frequently R29.6 confirmed 007959812 Problem 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 confirmed 346192291 Problem Type 2 diabetes mellitus with other diabetic ophthalmic complication E11.39 confirmed 440015000 Problem Hypertension I10 confirmed 7438928 3 Problem Pressure ulcer of other site, stage 3 L89.893 confirmed 727381012 Problem 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.73 confirmed 785917186 10/2015 Problem Anxiety F41.9 confirmed 60349546 Problem Other chronic pain G89.29 confirmed 47709341 Problem 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 91123018 s/p CVA Problem Left-sided muscle weakness M62.81 confirmed 698433847 Problem Chronic kidney disease, stage 3 (moderate) N18.3 confirmed 372971124 Problem Cardiomegaly I51.7 confirmed 4246304 Problem Polymyalgia rheumatica M35.3 confirmed 47767188 Problem PVD (peripheral vascular disease) I73.9 confirmed 096004355 Problem Type 2 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, without long-term current use of insulin E11.52 confirmed 955308829 Problem Critical ischemia of lower extremity I70.229 confirmed 686490946 Peripher al Angiogra phy 06/05/20 20 Problem Type 2 diabetes mellitus with diabetic neuropathy, without long-term current use of insulin E11.40 confirmed 14286768 Problem Osteoporosis M81.0 confirmed 2002576 6 Problem Stage 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 confirmed 816239723 Problem Stage 3 chronic kidney disease, unspecified whether stage 3a or 3b CKD N18.30 confirmed 599275187 Problem Dependence on supplemental oxygen Z99.81 confirmed 763390585 107 Problem Moderate episode of recurrent major depressive disorder F33.1 confirmed 606451202 Problem Vascular dementia with behavioral disturbance F01.518 confirmed 60972312 0 871926 Problem Type 2 diabetes mellitus with diabetic neuropathy, unspecified E11.40 confirmed 68863395 Problem SNHL (sensory-neur al hearing loss), 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 confirmed 847075231 Problem Hypothyroidis m E03.9 confirmed 36521455 Problem Chronic renal failure, stage 3 (moderate), unspecified whether stage 3a or 3b CKD N18.30 confirmed Problem Chronic kidney disease, stage 3 unspecified N18.30 confirmed 894386948 Problem Hypoglycemia associated with diabetes E11.649 confirmed 186736038 ALLERGIES Allergen (clinical drug ingredient) Drug/Non Drug Allergy documented on EMR Reaction Allergy Type Onset Date Status liraglutide Victoza([facility] Code:[address]-81) stomach upset Drug Allergy Active ENCOUNTERS from 1937 to 2023-02-10 Encounter Location Date Provider Diagnosis [facility] [address] [facility] [id number] [place] [address] Feb, FAHAD GAULT Hypothyroidism (acquired) E03.9 IMMUNIZATIONS Vaccine Route Administration Date Status influenza (history) Unknown Jun 15, 2020 Administ ered influenza H1N1 (history) Unknown Jun 02, 2009 Adm inistered COVID-19 Moderna (history) Unknown Aug 16, 2020 A dministered COVID-19 Moderna (history) Unknown September 12, 2020 Administered FLUZONE HIGH DOSE 65 AND UP 2015 IM Intramuscular May 28, 2016 Administered PRIVATE SHINGRIX (HERPES ZOS TER-2 DOSE) IM Intramuscular November 08, 2018 Administered PRIVATE HIGH DOSE FLU 22-23 (FLUZONE HD) AGE 65YRS AND UP IM Intramuscular Apr 17, 2022 Administer ed FLUZONE HIGH DOSE 0.5ML (65 and UP) 2017 IM Intramuscular Jun 15, 2018 Administered influenza (history) Unknown Apr 22, 2019 Administ erekeaton PRIVATE PPSV23 (PNEUMOVAX) IM Intramuscular October 12, 2017 Administered Influenza, seasonal, injecta ble (split), for 3 yrs and up Unknown Apr 29, 2010 Administered influenza IIV3 (history) Unknown Apr 22, 2011 Adm inistered PRIVATE PCV 13 (PREVNAR) IM Intramuscular May 28, 2016 Administered PRIVATE SHINGRIX (HERPES ZOS TER-2 DOSE) IM Intramuscular Aug 16, 2018 Administered FLUZONE HIGH DOSE (65 AND UP) [...] (history) Unknown Apr 12, 2009 Adm inistered SOCIAL HISTORY Sex Assigned At : Social History Observation Description Sex Assigned At Female Alcohol Screen (Audit-C) Question Answer Notes Did [...] Duration) Notes Start Date End Date Status levETIRAcetam 500 MG TAKE ONE (1) TABLET BY MOUTH TWICE DAILY for 90 Active glipiZIDE 5 MG 1 tablet 30 minutes before breakfast Orally Once a day Dec, Active QUEtiapine Fumarate 50 MG TAKE ONE AND ONE-HALF (1 & 1/2) TABLETS BY MOUTH ONCE DAILY AT BEDTIME for 90 Active Levothyroxine Sodium 100 MCG TAKE ONE (1) TABLET BY MOUTH ONCE DAILY IN THE MORNING ON AN EMPTY STOMACH orally once a day for 90 days Active amLODIPine Besylate 10 MG TAKE ONE (1) TABLET BY MOUTH ONCE DAILY for 90 Active Losartan Potassium 50 MG 1 tablet Orally Once a day for 30 days Dec, Active Alendronate Sodium 70 MG TAKE ONE (1) TABLET BY MOUTH ONCE WEEKLY 30 MINUTES BEFORE FIRST FOOD; BEVERAGE; OR MEDICINE OF THE DAY WITH PLAIN WATER for 28 Active Atorvastatin Calcium 20 MG TAKE ONE (1) TABLET BY MOUTH ONCE DAILY for 90 Active busPIRone HCl 10 MG 1 tablet Orally Twic e a day for 90 days Jun, Active Levemir Flexpen 100 UNIT/ML 15 units Subcutaneous Once a day for 30 days Dec, Active Bydureon BCise 2 MG/0.85ML INJECT 2MG SUBCUTANEOUSLY (UNDER THE SKIN) ONCE EVERY WEEK for Active Lancets - as directed twice a day for 30 days Mar, Active Blood Glucose Test - as directed In Vitr o for 30 days For glucocard shine Mar, Active Sertraline HCl 100 MG TAKE ONE AND ONE-HALF (1 & 1/2) TABLETS BY MOUTH ONCE DAILY for 90 Active Aspirin 81 MG 1 tablet Orally Once a day for 30 day(s) Jul, Active Clopidogrel Bisulfate 75 MG TAKE ONE (1) TABLET BY MOUTH ONCE DAILY for 30 Active Donepezil HCl 5 MG TAKE ONE (1) TABLET BY MOUTH ONCE DAILY AT BEDTIME for 90 Active REASON FOR VISIT Lab (walk-in) MEDICAL (GENERAL) HISTORY Type Description Date Medical [...] hyperglycemia 07/28 Hospitalization History Post Stroke pt w ent to and then Via [facility] 10/15/15 Hospitalization History Hypotension, Wander ateral leg weakness--Via [facility] 01/15/16 Hospitalization History hypertension/chest pain 03/2017 Hospitalization History [facility] X3 nights for AMS, weakness, 12/28/2022 MENTAL STATUS No Information ASSESSMENTS Encounter Date Diagnosis Assessment Notes Treatment Notes Treatment Clinical Notes Feb, Hypothyroidism (acquired) (ICD-10 - E03.9) PLAN OF TREATMENT Medication Medication Name Sig Start Date Stop Date Levemir Flexpen 100 UNIT/ML 15 units Sub cutaneous Once a day for 30 days Dec, Next Appt Details Provider Name:LYLE OTERO S, 2023-04-09 09:00:00 AM, [address] [facility], [id number], [place], [address], Provider Name:FAHAD MENDEZ, 2 02:00:00 PM, [address], [place], [address], Insurance Providers Payer Name Payer Address Payer Phone Insured Name Patient Relationship to Insured Coverage Start Date Coverage End Date Subscriber Number Group Number [address] [address] [facility] [phone] Lady Méndez Self - patient is the insured 0 [id number] [facility] MEDICARE Part A [address] [facility] [address] Lady Méndez Self - patient is the insured [id number]
--- OUTSIDE RECORDS SUMMARY | 2023-03-21 11:31 | XMS REPORT ---
Author Author [facility] ter of [facility] ter of [facility] Address Unknown Phone Unavailable Care Team Providers Care Digital Operations Analyst Name Role Phone OMI SIMMONS Unavailable PROBLEMS Type Condition ICD9-CM Code [id number] Code Onset Dates Condition Status SNOMED Code Notes Problem Hypertension I10 Active 41282192 Problem History of cerebrovascular accident with hemiparesis or hemiplegia Z86.73 Active 404314881 10/2015 Problem Anxiety F41.9 Active 27593670 Problem Other chronic pain G89.29 Active 33774625 Problem Dementia with behavioral disturbance, unspecified dementia type F03.91 Active 1639706183383 Problem Hypothyroidism (acquired) E03.9 Active 644010901 Problem Vascular dementia without behavioral disturbance F01.50 Active 633550308 Problem 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 Active 468442670335 Problem Falls frequently R29.6 Active 9071208 02 Problem Type 2 diabetes mellitus with diabetic neuropathy, unspecified E11.40 Active 98987201 Problem 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 Active 005476396 Problem BMI 31.0-31.9,adult Z68.31 Active 688305888846458 Problem 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 Active 542578145 Problem Chronic kidney disease, stage 3 (moderate) N18.3 Active 628655480 Problem 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 Active 46746625 Problem SNHL (sensory-neural hearing loss), 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 Active 711353391 Problem Left-sided muscle weakness M62.81 Active 274398562 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 [id number] [place] [address] Apr, OMI SIMMONS IMMUNIZATIONS Vaccine Route Administration Date Status PRIVATE [...] influenza IIV3 (history) Unknown Apr 28, 2013 Pen dada influenza IIV3 (history) Unknown Apr 12, 2012 [place] influenza IIV3 (history) Unknown Apr 22, 2011 [place] PRIVATE PCV 13 (PREVNAR) IM Intramuscular May [...] user? No REASON FOR REFERRAL No Information VITAL SIGNS Height 62 in Apr, Weight 201 lbs Apr, Temperature 96.4 degrees Fahrenheit Apr, Heart Rate 72 bpm Apr, Respiratory Rate 18 bpm Apr, Blood pressure systolic 140 mmHg Apr, Blood pressure diastolic 80 mmHg Apr, MEDICATIONS Medication SIG (Take, Route, Fr equency, Duration) Start Date End Date Status BusPIRone HCl 10 MG 1 tablet Orally Twic e a day for 30 days Active Norvasc 10 mg 1 tablet Orally Once a day for 90 days Active Levetiracetam 500 MG 1 tablet Orally Twi ce a day for 90 days Active Zoloft 100 MG 1.5 tablets Orally O nce a day for 90 days Aug, Active Levothyroxine Sodium 50 mcg 1 tablet on an empty stomach in the morning Orally Once a day for 90 days Active Aspirin 81 MG 1 tablet Orally Once a day for 30 day(s) Jul, Active Aricept 5 mg 1 tablet at bedtime Orally Once a day for 90 days Active Seroquel 50 MG 1 tablet Orally Once a day for 90 days Jul, Active Bydureon 2 MG Inject 2mg Subcutane ous once weekly for 28 Active REASON FOR VISIT No Information MEDICAL [...] to [facility] and then Via [facility] 10/15/15 Hospitalization History Hypotension, Wander ateral leg weakness--Via [facility] 01/15/16 Hospitalization History hypertension/chest pain 03/2017 MENTAL STATUS No Information PLAN OF TREATMENT Medication Medication Name Sig Start Date Stop Date BusPIRone HCl 10 MG 1 tablet Orally Twic e a day for 30 days Aricept 5 mg 1 tablet at bedtime Orally Once a day for 90 days Bydureon 2 MG Inject 2mg Subcutane ous once weekly for 28 Zoloft 100 MG 1.5 tablets Orally O nce a day for 90 days Aug, Norvasc 10 mg 1 tablet Orally Once a day for 90 days Levothyroxine Sodium 50 mcg 1 tablet on an empty stomach in the morning Orally Once a day for 90 days Insurance Providers Payer Name Payer Address Payer Phone Insured Name Patient Relationship to Insured Coverage Start Date Coverage End Date NGS MEDICARE Part A [address] [facility] [address] Whitney Méndez ma [facility] [address] [facility] [phone] Whitney Méndez ma 2007
--- OUTSIDE RECORDS SUMMARY | 2023-03-21 11:31 | XMS REPORT ---
Author Author [facility] ter of [facility] ter [facility] Address Unknown Phone Unavailable Care Team Providers Care Salesperson Used Cars Name Role Phone FAHAD MENDEZ Unavailable PROBLEMS Type Condition ICD9-CM Code [id number] Code Onset Dates Condition Status W/U Status Risk SNOMED Code Notes Problem Other chronic pain G89.29 confirmed 81485130 Problem Hypothyroidis m (acquired) E03.9 confirmed 358056428 Problem Anxiety F41.9 confirmed 91299546 Problem 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 confirmed 50041373 9 102 Problem Dementia with behavioral disturbance, unspecified dementia type F03.91 confirmed 967249 011 9103 Problem 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 confirmed 81001340 Problem Vascular dementia without behavioral disturbance F01.50 confirmed 291447548 Problem Type 2 diabetes mellitus with diabetic neuropathy, without long-term current use of insulin E11.40 confirmed 06317823 Problem Critical ischemia of lower extremity I70.229 confirmed 354035924 Peripher al Angiogra phy 06/05/20 20 Problem Type 2 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, without long-term current use of insulin E11.52 confirmed 717913338 Problem Hypertension I10 confirmed 2696099 3 Problem 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.73 confirmed 656366740 10/2015 Problem Left-sided muscle weakness M62.81 confirmed 497958559 Problem 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 confirmed 600438609 Problem 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 31157527 s/p CVA Problem SNHL (sensory-neur al hearing loss), 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 confirmed 665941573 Problem Chronic kidney disease, stage 3 (moderate) N18.3 confirmed 940715364 Problem Cardiomegaly I51.7 confirmed 4886057 Problem Polymyalgia rheumatica M35.3 confirmed 18382178 Problem PVD (peripheral vascular disease) I73.9 confirmed 055502908 Problem Pressure ulcer of other site, stage 3 L89.893 confirmed 696646024 Problem Type 2 diabetes mellitus with other diabetic ophthalmic complication E11.39 confirmed 825929644 Problem Osteoporosis M81.0 confirmed 4452350 6 Problem Chronic renal failure, stage 3 (moderate), unspecified whether stage 3a or 3b CKD N18.30 confirmed Problem Falls frequently R29.6 confirmed 552732436 Problem Chronic kidney disease, stage 3 unspecified N18.30 confirmed 094644335 Problem 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 confirmed 898510338 Problem Type 2 diabetes mellitus with diabetic neuropathy, unspecified E11.40 confirmed 39650034 Problem Vascular dementia with behavior disturbance F01.51 confirmed 54954546 0 345424 Problem Stage 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 confirmed 618171451 Problem Stage 3 chronic kidney disease, unspecified whether stage 3a or 3b CKD N18.30 confirmed 333871253 Problem Hypothyroidis m E03.9 confirmed 23784834 ALLERGIES Allergen (clinical drug ingredient) Drug/Non Drug Allergy documented on EMR Reaction Allergy Type Onset Date Status liraglutide Victoza([facility] Code:[address]-89) stomach upset Drug Allergy Active ENCOUNTERS from 1935 to 2022-12-07 Encounter Location Date Provider Diagnosis [facility] [address] [facility] [id number] [address] 15 Dec, 2020 FAHAD GAULT Nasal congestion R09.81 ; 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 ; Type 2 diabetes mellitus with diabetic neuropathy, unspecified E11.40 ; Atypical chest pain R07.89 and Hypertension I10 IMMUNIZATIONS Vaccine Route Administration Date Status influenza IIV3 (history) Unknown Apr 12, 2009 Adm inistered PRIVATE PCV 13 (PREVNAR) IM Intramuscular May 28, 2016 Administered PRIVATE PPSV23 (PNEUMOVAX) IM Intramuscular October 12, 2017 Administered COVID-19 Moderna (history) Unknown September 12, 2020 Administered PRIVATE SHINGRIX (HERPES ZOS TER-2 DOSE) IM Intramuscular Aug 16, 2018 Administered influenza IIV3 (history) Unknown Apr 28, 2013 Adm inistered FLUZONE HIGH DOSE (65 AND UP) 2016 IM Intramuscular Oc 2016 Administered influenza IIV3 (history) Unknown Apr 12, 2012 Adm inistered influenza IIV3 (history) Unknown Apr 22, 2011 Adm inistered Influenza, seasonal, injecta ble (split), for 3 yrs and up Unknown Apr 29, 2010 Administered COVID-19 Moderna (history) Unknown Aug 16, 2020 A dministered influenza (history) Unknown Jun 15, 2020 Administ ered FLUZONE HIGH DOSE 0.5ML (65 and UP) 2017 IM Intramuscular Jun 15, 2018 Administered influenza IIV3 (history) Unknown May 02, 2014 Adm inistered PRIVATE TDAP (BOOSTRIX) IM Intramuscular October 12 8 Administered PRIVATE HIGH DOSE FLU 22-23 (FLUZONE HD) AGE 65YRS AND UP IM Intramuscular Apr 17, 2022 Administer ed influenza H1N1 (history) Unknown Jun 02, 2009 Adm inistered influenza (history) Unknown Apr 22, 2019 Administ ered PRIVATE SHINGRIX (HERPES ZOS TER-2 DOSE) IM Intramuscular November 08, 2018 Administered FLUZONE HIGH DOSE 65 AND UP 2015 IM Intramuscular May 28, 2016 Administered FLUARIX QUAD (3 & UP)-GSK-2014 IM Intramuscular Apr 132014 Administered SOCIAL HISTORY Sex Assigned At : [...] No Information VITAL SIGNS Height 62 in Dec, Temperature 97 degrees Fahrenheit Dec, Heart Rate 62 bpm Dec, Respiratory Rate 18 bpm Dec, Oximetry 95 % Dec, Blood pressure systolic 132 mmHg Dec, Blood pressure diastolic 60 mmHg Dec, MEDICATIONS Medication SIG (Take, Route, Frequency, Duration) Notes Start Date End Date Status busPIRone HCl 10 MG 1 tablet Orally Twic e a day for 90 days Jun, Active Atorvastatin Calcium 20 MG TAKE ONE (1) TABLET BY MOUTH ONCE DAILY for 90 Active Blood Glucose Test - [...] BY MOUTH TWICE DAILY for 90 Active Benzonatate 100 MG 1 capsule as needed Orally Three times a day for 10 days Jun, Active Clopidogrel Bisulfate 75 MG TAKE ONE (1) TABLET BY MOUTH ONCE DAILY for 30 Active Sertraline HCl 100 MG TAKE ONE AND ONE-HALF (1 & 1/2) TABLETS BY MOUTH ONCE DAILY for 90 Active Alendronate Sodium 70 MG TAKE ONE (1) TABLET BY MOUTH ONCE WEEKLY 30 MINUTES BEFORE FIRST FOOD; BEVERAGE; OR MEDICINE OF THE DAY WITH PLAIN WATER for 28 Active Azithromycin 250 MG as directed Orally 2 tablets on day 1 then one daily for 5 days Active Levothyroxine Sodium 75 MCG TAKE ONE (1) TABLET BY MOUTH ONCE DAILY IN THE MORNING ON AN EMPTY STOMACH for 90 days Active Aspirin 81 MG 1 tablet Orally Once a day for 30 day(s) Jul, Active QUEtiapine Fumarate 50 MG TAKE ONE AND ONE-HALF (1 & 1/2) TABLETS BY MOUTH ONCE DAILY AT BEDTIME for 90 Active Donepezil HCl 5 MG TAKE ONE (1) TABLET BY MOUTH ONCE DAILY AT BEDTIME for 90 Active REASON FOR VISIT Medication Management-pt states she has a cough and sinuses draining since thursday, would like to know if she can get a z-pack or something to help- jacquelin read, pt daughter states that she wants to know if she needs a stress test done and if that is necessary to put her heart through all of that-jacquelin read MEDICAL (GENERAL) HISTORY Type Description Date Medical [...] History Post Stroke pt went to [facility] and then [facility] 10/15/15 Hospitalization History Hypotension, Wander ateral leg weakness--Via 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 (ICD-10 - E11.39) - Continue to focus on diet and make sure to check your blood sugars Dec, Type 2 diabetes mellitus with diabetic neuropathy, unspecified (ICD-10 - E11.40) Dec, Atypical chest pain (ICD-10 - R07.89) - Patient and daughter not wanting to proceed with stress testing - Discussed risk of sudden cardiac - They would like to maximize medical management Dec, Hypertension (ICD-10 - I10) PLAN OF TREATMENT Medication Medication Name Sig Start Date Stop Date Bydureon BCise 2 MG/0.85ML INJECT 2MG BUTLER BCUTANEOUSLY (UNDER THE SKIN) ONCE EVERY WEEK for 28 Aspirin 81 MG 1 tablet Orally Once a day for 30 day(s) Jul, Azithromycin 250 MG as directed Orally 2 tablets on day 1 then one daily for 5 days busPIRone HCl 10 MG 1 tablet Orally Twic e a day for 90 days Jun, QUEtiapine Fumarate 50 MG TAKE ONE AND O NE-HALF (1 & 1/2) TABLETS BY MOUTH ONCE DAILY AT BEDTIME for 90 Atorvastatin Calcium 20 MG TAKE ONE (1) TABLET BY MOUTH ONCE DAILY for 90 Donepezil HCl 5 MG TAKE ONE (1) [...] ON AN EMPTY STOMACH for 90 days Treatment Notes Assessment Notes Clinical Notes Non insulin dependent diabet es mellitus with ophthalmic complication - Continue to focus on diet and make sure to check your blood sugars Atypical chest pain - Patient and daught er not wanting to proceed with stress testing - Discussed risk of sudden cardiac - They would like to maximize medical management Next Appt Details 3 Months with [facility] Reason: Provider Name:FAHAD MENDEZ, 2 023-06-13 09:40:00 AM, [address] , [place], [address], Insurance Providers Payer Name Payer Address Payer Phone Insured Name Patient Relationship to Insured Coverage Start Date Coverage End Date Subscriber Number Group Number NGS MEDICARE Part A [address] [facility] [phone] Lady Méndez Self - patient is the insured [id number] [facility] [address] [address] [facility] [address] Lady Méndez Self - patient is the insured 0 [id number]
--- OUTSIDE RECORDS SUMMARY | 2023-03-21 11:31 | XMS REPORT ---
Author Author [facility] ter of [facility] ter of [facility] Address Unknown Phone Unavailable Care Team Providers Care Private Investigator Surveillance Name Role Phone Migration, Doctor Unavailable Unavailable PROBLEMS Type Condition ICD9-CM Code [id number] Code Onset Dates Condition Status SNOMED Code Notes Problem Hypertension I10 Active 81534969 Problem History of cerebrovascular accident with hemiparesis or hemiplegia Z86.73 Active 481459141 10/2015 Problem Anxiety F41.9 Active 85745962 Problem Other chronic pain G89.29 Active 83900080 Problem Dementia with behavioral disturbance, unspecified dementia type F03.91 Active 8699035420874 Problem Hypothyroidism (acquired) E03.9 Active 415133335 Problem Vascular dementia without behavioral disturbance F01.50 Active 955444865 Problem 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 Active 372365503603 Problem Falls frequently R29.6 Active 7794882 02 Problem Type 2 diabetes mellitus with diabetic neuropathy, unspecified E11.40 Active 84711145 Problem 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 Active 653292069 Problem BMI 31.0-31.9,adult Z68.31 Active 834533618165823 Problem 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 Code:[address]-82) stomach upset Drug Allergy Active ENCOUNTERS from 1935 to 2020-04-30 Encounter Location Date Provider Diagnosis [facility] [address] [facility] [id number] [place] [address] Apr, Doctor Migration IMMUNIZATIONS Vaccine Route Administration Date [...] Hospitalization History Post Stroke pt went to [facility] and then Via [facility] 10/15/15 Hospitalization History Hypotension, Wander ateral leg weakness--Via [facility] 01/15/16 Hospitalization History hypertension/chest pain [...] Insured Coverage Start Date Coverage End Date [facility] [address] [facility] [address] Whitney Méndez ma 2007 NGS MEDICARE Part A FI [address] [facility] [address] Whitney Méndez ma
--- OUTSIDE RECORDS SUMMARY | 2023-03-21 11:31 | XMS REPORT ---
Author Author [facility] ter of [facility] ter of [facility] Address Unknown Phone Unavailable Care Team Providers Care Milking Machine Operator Name Role Phone OMI SIMMONS Unavailable PROBLEMS Type Condition ICD9-CM Code [id number] Code Onset Dates Condition Status SNOMED Code Notes Problem Hypertension I10 Active 17571606 Problem History of cerebrovascular accident with hemiparesis or hemiplegia Z86.73 Active 151900367 10/2015 Problem Anxiety F41.9 Active 21750458 Problem Other chronic pain G89.29 Active 24650378 Problem Dementia with behavioral disturbance, unspecified dementia type F03.91 Active 9675943891722 Problem Hypothyroidism (acquired) E03.9 Active 235184776 Problem Vascular dementia without behavioral disturbance F01.50 Active 620372881 Problem 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 Active 482116799204 Problem Falls frequently R29.6 Active 3010498 02 Problem Type 2 diabetes mellitus with diabetic neuropathy, unspecified E11.40 Active 33931046 Problem Moderate episode of recurrent major depressive disorder F33.1 Active 907384796 Problem BMI 31.0-31.9,adult Z68.31 Active 652559101160104 Problem 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 Active 286003760 Problem Chronic kidney disease, stage 3 (moderate) N18.3 Active 844592069 Problem 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 Active 66774739 Problem SNHL (sensory-neural hearing loss), 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 Active 496616875 Problem Left-sided muscle weakness M62.81 Active 916112633 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 03756584 s/p CVA Problem Cardiomegaly I51.7 Active 9103981 ALLERGIES Allergen (clinical drug ingredient) Drug/Non Drug Allergy documented on EMR Reaction Allergy Type Onset Date Status liraglutide Victoza([facility] Code:[address]-78) stomach upset Drug Allergy Active ENCOUNTERS from 1935 to 2020-03-03 Encounter Location Date Provider Diagnosis [facility] [address] [facility] [id number] [place] [address] 14 Aug, 2012 OMI SIMMONS IMMUNIZATIONS Vaccine Route Administration Date Status FLUARIX QUAD (3 & UP)-GSK-2014 IM Intramuscular Apr 132014 Administered PRIVATE PPSV23 (PNEUMOVAX) IM Intramuscular October 12, 2017 Administered PRIVATE SHINGRIX (HERPES ZOS TER-2 DOSE) IM Intramuscular November 08, 2018 Administered PRIVATE SHINGRIX (HERPES ZOS TER-2 DOSE) IM Intramuscular Aug 16, 2018 Administered FLUZONE HIGH DOSE 0.5ML (65 and UP) 2017 IM Intramuscular Jun 15, 2018 Administered influenza (history) Unknown Apr 21, 2019 Administ ered Influenza, seasonal, injecta ble (split), for 3 yrs and up Unknown Apr 29, 2010 Administered FLUZONE HIGH DOSE (65 AND UP) 2016 IM Intramuscular Oc 2016 Administered FLUZONE HIGH DOSE 65 AND [...] Hospitalization History Post Stroke pt went to [facility] and then [facility] 10/15/15 Hospitalization History Hypotension, Wander ateral leg weakness--Via [facility] 01/15/16 Hospitalization History hypertension/chest pain 03/2017 MENTAL STATUS No Information PLAN OF TREATMENT Medication Medication Name Sig Start Date Stop Date BusPIRone HCl 10 MG 1 tablet Orally Twice a day for 30 days Insurance Providers Payer Name Payer Address Payer Phone Insured Name Patient Relationship to Insured Coverage Start Date Coverage End Date [facility] MEDICARE Part A FI [address] [facility] [address] Whitney Méndez ma [facility] [address] [facility] [address] Whitney Méndez ma 2007
--- OUTSIDE RECORDS SUMMARY | 2023-03-21 11:31 | XMS REPORT ---
Author Author [facility] ter of [facility] ter [facility] Address Unknown Phone Unavailable Care Team Providers Care Ground Operations Crew Member Name Role Phone FAHAD MENDEZ Unavailable PROBLEMS Type Condition ICD9-CM Code [id number] Code Onset Dates Condition Status W/U Status Risk SNOMED Code Notes Problem Other chronic pain G89.29 confirmed 97240685 Problem Hypothyroidis m (acquired) E03.9 confirmed 177108888 Problem Anxiety F41.9 confirmed 96996675 Problem 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 confirmed 29754954 9 102 Problem Dementia with behavioral disturbance, unspecified dementia type F03.91 confirmed 082488 011 9103 Problem Non insulin dependent diabetes mellitus with ophthalmic complication E11.39 confirmed 22517002 Problem Vascular dementia without behavioral disturbance F01.50 confirmed 343525172 Problem Type 2 diabetes mellitus with diabetic neuropathy, without long-term current use of insulin E11.40 confirmed 53909149 Problem Critical ischemia of lower extremity I70.229 confirmed 596768896 Peripher al Angiogra phy 06/05/20 20 Problem Type 2 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, without long-term current use of insulin E11.52 confirmed 889260484 Problem Hypertension I10 confirmed 5228368 3 Problem 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.73 confirmed 463899889 10/2015 Problem Left-sided muscle weakness M62.81 confirmed 348685002 Problem Moderate episode of recurrent major depressive disorder F33.1 confirmed 836476717 Problem 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 79007285 s/p CVA Problem SNHL (sensory-neur al hearing loss), 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 confirmed 355352426 Problem Chronic kidney disease, stage 3 (moderate) N18.3 confirmed 516988223 Problem Cardiomegaly I51.7 confirmed 8642402 Problem Polymyalgia rheumatica M35.3 confirmed 23948358 Problem PVD (peripheral vascular disease) I73.9 confirmed 751634456 Problem Pressure ulcer of other site, stage 3 L89.893 confirmed 866396648 Problem Type 2 diabetes mellitus with other diabetic ophthalmic complication E11.39 confirmed 859632189 Problem Osteoporosis M81.0 confirmed 0535774 6 Problem Chronic renal failure, stage 3 (moderate), unspecified whether stage 3a or 3b CKD N18.30 confirmed Problem Falls frequently R29.6 confirmed 015478723 Problem Chronic kidney disease, stage 3 unspecified N18.30 confirmed 709251780 Problem 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 confirmed 633789543 Problem Type 2 diabetes mellitus with diabetic neuropathy, unspecified E11.40 confirmed 07948280 Problem Vascular dementia with behavior disturbance F01.51 confirmed 70768042 0 834455 Problem Stage 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 confirmed 480030232 Problem Stage 3 chronic kidney disease, unspecified whether stage 3a or 3b CKD N18.30 confirmed 160574132 Problem Hypothyroidis m E03.9 confirmed 58858596 ALLERGIES Allergen (clinical drug ingredient) Drug/Non Drug Allergy documented on EMR Reaction Allergy Type Onset Date Status liraglutide Victoza([facility] Code:[address]-55) stomach upset Drug Allergy Active ENCOUNTERS from 1935 to 2022-11-18 Encounter Location Date Provider Diagnosis [facility] [address] [facility] [id number] [address] November, FAHAD MENDEZ IMMUNIZATIONS Vaccine Route Administration Date Status PRIVATE TDAP (BOOSTRIX) IM Intramuscular October 12 8 Administered influenza IIV3 (history) Unknown May 02, 2014 Adm inistered influenza IIV3 (history) Unknown Apr 28, 2013 Adm inistered influenza IIV3 (history) Unknown Apr 12, 2012 Adm inistered FLUARIX QUAD (3 & UP)-GSK-2014 IM Intramuscular Apr 132014 Administered influenza (history) Unknown Apr 22, 2019 Administ ered FLUZONE HIGH DOSE (65 AND UP) 2016 IM Intramuscular Oc 2016 Administered FLUZONE HIGH DOSE 0.5ML (65 and UP) 2017 IM Intramuscular Jun 15, 2018 Administered FLUZONE HIGH DOSE 65 AND UP 2015 IM Intramuscular May 28, 2016 Administered influenza IIV3 (history) Unknown Apr 12, 2009 Adm inistered PRIVATE PCV 13 (PREVNAR) IM Intramuscular May 28, 2016 Administered Influenza, seasonal, injecta ble (split), for 3 yrs and up Unknown Apr 29, 2010 Administered PRIVATE PPSV23 (PNEUMOVAX) IM Intramuscular October 12, 2017 Administered PRIVATE HIGH DOSE FLU 22-23 (FLUZONE HD) AGE 65YRS AND UP IM Intramuscular Apr 17, 2022 Administer ed COVID-19 Moderna (history) Unknown September 12, 2020 Administered COVID-19 Moderna (history) Unknown Aug 16, 2020 A dministered influenza H1N1 (history) Unknown Jun 02, 2009 Adm inistered influenza (history) Unknown Jun 15, 2020 Administ ered PRIVATE SHINGRIX (HERPES ZOS TER-2 DOSE) IM Intramuscular November 08, 2018 Administered PRIVATE SHINGRIX (HERPES ZOS TER-2 DOSE) IM Intramuscular Aug 16, 2018 Administered influenza IIV3 (history) Unknown Apr 22, 2011 Adm inistered SOCIAL HISTORY Sex Assigned At [...] WATER for 28 Active REASON FOR VISIT Medication refill request MEDICAL (GENERAL) HISTORY Type Description Date Medical [...] Hospitalization History Post Stroke pt went to [facility] and [facility] [...] NGS MEDICARE Part A [address] [facility] [phone] Lady Méndez Self - patient is the insured [id number] [facility] [address] [address] [facility] [phone] Lady Méndez Self - patient is the insured 0 [id number]
--- OUTSIDE RECORDS SUMMARY | 2023-03-21 11:31 | XMS REPORT ---
Author Author [facility] ter of [facility] ter of [facility] Address Unknown Phone Unavailable Care Team Providers Care Reflector Driller And Deburrer Name Role Phone FAHAD MENDEZ Unavailable PROBLEMS Type Condition ICD9-CM Code [id number] Code Onset Dates Condition Status SNOMED Code Notes Problem Hypertension I10 Active 91529695 Problem History of cerebrovascular accident with hemiparesis or hemiplegia Z86.73 Active 933175193 10/2015 Problem Anxiety F41.9 Active 06540546 Problem Other chronic pain G89.29 Active 37495116 Problem Dementia with behavioral disturbance, unspecified dementia type F03.91 Active 6166527279094 Problem Hypothyroidism (acquired) E03.9 Active 486820773 Problem Vascular dementia without behavioral disturbance F01.50 Active 729910750 Problem 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 Active 867016783203 Problem Falls frequently R29.6 Active 5913878 02 Problem Type 2 diabetes mellitus with diabetic neuropathy, unspecified E11.40 Active 67537338 Problem Moderate episode of recurrent major depressive disorder F33.1 Active 536998319 Problem BMI 31.0-31.9,adult Z68.31 Active 981653170777019 Problem 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 Active 279903693 Problem Chronic kidney disease, stage 3 (moderate) N18.3 Active 306346071 Problem Non insulin dependent diabetes mellitus with ophthalmic complication E11.39 Active 32766482 Problem SNHL (sensory-neural hearing loss), 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 Active 990903958 Problem Left-sided muscle weakness M62.81 Active 001864638 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 43173070 s/p CVA Problem Cardiomegaly I51.7 Active 4866541 ALLERGIES Allergen (clinical drug ingredient) Drug/Non Drug Allergy documented on EMR Reaction Allergy Type Onset Date Status liraglutide Victoza([facility] Code:[address]-97) stomach upset Drug Allergy Active ENCOUNTERS from 1935 to 2020-06-09 Encounter Location Date Provider Diagnosis [facility] [address] [facility] [id number] [place] [address] November, FAHAD MENDEZ IMMUNIZATIONS Vaccine Route Administration Date Status FLUZONE HIGH DOSE 0.5ML (65 and UP) 2018 IM Intramuscular Jun 15, 2018 Administered influenza (history) Unknown Apr 21, 2019 Administ ered FLUARIX QUAD (3 & UP)-GSK-2014 IM Intramuscular Apr 132014 Administered FLUZONE HIGH DOSE (65 AND UP) 2016 IM Intramuscular Oc 2016 Administered PRIVATE SHINGRIX (HERPES ZOS TER-2 DOSE) IM Intramuscular Aug 16, 2018 Administered PRIVATE SHINGRIX (HERPES ZOS TER-2 DOSE) IM Intramuscular November 08, 2018 Administered PRIVATE PPSV23 (PNEUMOVAX) IM Intramuscular October 12, 2017 Administered FLUZONE HIGH DOSE 65 AND UP [...] Duration) Notes Start Date End Date Status Norvasc 10 mg 1 tablet Orally Once a day for 90 days Active Aricept 5 mg 1 tablet at bedtime Orally Once a day for 90 days Active Aspirin 81 MG 1 tablet Orally Once a day for 30 day(s) Jul, Active Zoloft 100 MG 1.5 tablets Orally O nce a day for 90 days Aug, Active Seroquel 50 MG 1 tablet Orally Once a day for 90 days Jul, Active Bydureon 2 MG Inject 2mg Subcutane ous once weekly for 28 Active Levothyroxine Sodium 50 mcg 1 tablet on an empty stomach in the morning Orally Once a day for 90 days Active BusPIRone HCl 10 MG 1 tablet Orally Twic e a day for 30 days Active Levetiracetam 500 MG 1 tablet Orally Twi ce a day for 90 days Active REASON FOR VISIT Refil Request MEDICAL (GENERAL) HISTORY Type Description Date [...] History Post Stroke pt went to [facility] and then [facility] 10/15/15 Hospitalization History Hypotension, Wander ateral leg weakness--Via [facility] 01/15/16 Hospitalization History hypertension/chest pain 03/2017 MENTAL STATUS No Information PLAN OF TREATMENT Medication Medication Name Sig Start Date Stop Date Norvasc 10 mg 1 tablet Orally Once a day for 90 days Levothyroxine Sodium 50 mcg 1 tablet on an empty stomach in the morning Orally Once a day for 90 days BusPIRone HCl 10 MG 1 tablet Orally Twic e a day for 30 days Bydureon 2 MG Inject 2mg Subcutane ous once weekly for 28 Aricept 5 mg 1 tablet at bedtime Orally Once a day for 90 days Zoloft 100 MG 1.5 tablets Orally O nce a day for 90 days Aug, Insurance Providers Payer Name Payer Address Payer Phone Insured Name Patient Relationship to Insured Coverage Start Date Coverage End Date NGS MEDICARE Part A FI [address] [facility] [phone] Whitney Méndez ma [facility] [address] [facility] [address] Whitney Méndez ma 2007
--- OUTSIDE RECORDS SUMMARY | 2023-03-21 11:31 | XMS REPORT ---
Author Author [facility] ter of [facility] ter [facility] Address Unknown Phone Unavailable Care Team Providers Care Sausage Canner Name Role Phone FAHAD MENDEZ Unavailable PROBLEMS Type Condition ICD9-CM Code DFA10-BB Code Onset Dates Condition Status W/U Status Risk SNOMED Code Notes Problem Critical ischemia of lower extremity I70.229 confirmed 407150979 Peripher al Angiogra phy 06/05/20 20 Problem Hypertension I10 confirmed 8916778 3 Problem 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.73 confirmed 334281904 10/2015 Problem Anxiety F41.9 confirmed 04434621 Problem Other chronic pain G89.29 confirmed 93557298 Problem Dementia with behavioral disturbance, unspecified dementia type F03.91 confirmed 888618 011 9103 Problem Hypothyroidis m (acquired) E03.9 confirmed 995389911 Problem PVD (peripheral vascular disease) I73.9 confirmed 491313087 Problem Chronic kidney disease, stage 3 (moderate) N18.3 confirmed 083606185 Problem Moderate episode of recurrent major depressive disorder F33.1 confirmed 109963684 Problem 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 confirmed 806939494 Problem Type 2 diabetes mellitus with diabetic neuropathy, unspecified E11.40 confirmed 30360752 Problem Falls frequently R29.6 confirmed 755637951 Problem Left-sided muscle weakness M62.81 confirmed 802496089 Problem SNHL (sensory-neur al hearing loss), 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 confirmed 329698766 Problem Cardiomegaly I51.7 confirmed 4038885 Problem 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 27649499 s/p CVA Problem Polymyalgia rheumatica M35.3 confirmed 28667782 Problem Type 2 diabetes mellitus with diabetic neuropathy, without long-term current use of insulin E11.40 confirmed 07307491 Problem Type 2 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, without long-term current use of insulin E11.52 confirmed 290189830 Problem Stage 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 confirmed 655887842 Problem Vascular dementia without behavioral disturbance F01.50 confirmed 247005871 Problem Stage 3 chronic kidney disease, unspecified whether stage 3a or 3b CKD N18.30 confirmed 024881919 Problem 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 confirmed 86678744 9 102 Problem Non insulin dependent diabetes mellitus with ophthalmic complication E11.39 confirmed 27936895 Problem Pressure ulcer of other site, stage 3 L89.893 confirmed 583808997 Problem Type 2 diabetes mellitus with other diabetic ophthalmic complication E11.39 confirmed 205691059 Problem Osteoporosis M81.0 confirmed 8526589 6 Problem Vascular dementia with behavior disturbance F01.51 confirmed 42433731 0 628968 ALLERGIES Allergen (clinical drug ingredient) Drug/Non Drug Allergy documented on EMR Reaction Allergy Type Onset Date Status liraglutide Victoza([facility] Code:[address]-38) stomach upset Drug Allergy Active ENCOUNTERS from 1935 to 2022-07-25 Encounter Location Date Provider Diagnosis [facility] [address] [facility] [id number] [place] [address] 05 Aug, 2020 FAHAD MENDEZ IMMUNIZATIONS Vaccine Route Administration Date [...] Duration) Notes Start Date End Date Status Bydureon BCise 2 MG/0.85ML INJECT 2MG SUBCUTANEOUSLY (UNDER THE SKIN) ONCE EVERY WEEK for 28 Active busPIRone HCl 10 MG 1 tablet Orally Twic e a day for 90 days Jun, Active Blood Glucose Test - as directed In Vitr o for 30 days For glucocard shine Mar, Active Aspirin 81 MG 1 tablet Orally Once a day for 30 day(s) Jul, Active Donepezil HCl 5 MG TAKE ONE (1) TABLET BY MOUTH ONCE DAILY AT BEDTIME for 90 Active amLODIPine Besylate 10 MG TAKE ONE (1) TABLET BY MOUTH ONCE DAILY for 90 Active Lancets - as directed twice a day for 30 days Mar, Active Clopidogrel Bisulfate 75 MG TAKE ONE [...] a day for 10 days Jun, Active levETIRAcetam 500 MG TAKE ONE (1) TABLET BY MOUTH TWICE DAILY for 90 Active QUEtiapine Fumarate 50 MG TAKE ONE AND ONE-HALF (1 & 1/2) TABLETS BY MOUTH ONCE DAILY AT BEDTIME for 90 Active Alendronate Sodium 70 MG TAKE ONE (1) TABLET BY MOUTH ONCE WEEKLY 30 MINUTES BEFORE FIRST FOOD; BEVERAGE; OR MEDICINE OF THE DAY WITH PLAIN WATER for 28 Active REASON FOR VISIT Referral MEDICAL (GENERAL) HISTORY Type Description Date Medical [...] Hospitalization History Post Stroke pt went to [facility] and then [facility] 10/15/15 Hospitalization History Hypotension, Wander ateral leg weakness--Via [facility] 01/15/16 Hospitalization History hypertension/chest pain 03/2017 MENTAL STATUS No Information PLAN OF TREATMENT Medication Medication Name Sig Start Date Stop Date Azithromycin 250 MG as directed Orally 2 [...] ON AN EMPTY STOMACH for 90 days Bydureon BCise 2 MG/0.85ML INJECT 2MG BUTLER BCUTANEOUSLY (UNDER THE SKIN) ONCE EVERY WEEK for 28 busPIRone HCl 10 MG 1 tablet Orally Twic a day for 90 days Jun, Insurance Providers Payer Name Payer Address Payer Phone Insured Name Patient Relationship to Insured Coverage Start Date Coverage End Date Subscriber Number Group Number N[employer] MEDICARE Part A [address] [facility] [phone] Lady Méndez Self - patient is the insured [id number] [facility] [address] [facility] [phone] Lady Méndez Self - patient is the insured [id number]
--- OUTSIDE RECORDS SUMMARY | 2023-03-21 11:31 | XMS REPORT ---
Author Author [facility] ter of [facility] ter of [facility] Address Unknown Phone Unavailable Care Team Providers Care Inside Wirer Name Role Phone FAHAD MENDEZ Unavailable PROBLEMS Type Condition ICD9-CM Code [id number] Code Onset Dates Condition Status W/U Status Risk SNOMED Code Notes Problem Hypothyroidis m (acquired) E03.9 confirmed 157411433 Problem 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 confirmed 08815730 9 102 Problem Dementia with behavioral disturbance, unspecified dementia type F03.91 confirmed 884934 011 9103 Problem Non insulin dependent diabetes mellitus with ophthalmic complication E11.39 confirmed 60888477 Problem Vascular dementia without behavioral disturbance F01.50 confirmed 360016023 Problem Falls frequently R29.6 confirmed 023138204 Problem 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 confirmed 638130383 Problem Type 2 diabetes mellitus with other diabetic ophthalmic complication E11.39 confirmed 768210631 Problem Hypertension I10 confirmed 5206791 3 Problem Pressure ulcer of other site, stage 3 L89.893 confirmed 291543205 Problem 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.73 confirmed 504570299 10/2015 Problem Anxiety F41.9 confirmed 41562405 Problem Other chronic pain G89.29 confirmed 94232225 Problem 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 14060048 s/p CVA Problem Left-sided muscle weakness M62.81 confirmed 044462105 Problem Chronic kidney disease, stage 3 (moderate) N18.3 confirmed 138010395 Problem Cardiomegaly I51.7 confirmed 9289275 Problem Polymyalgia rheumatica M35.3 confirmed 06572976 Problem PVD (peripheral vascular disease) I73.9 confirmed 078577934 Problem Type 2 diabetes mellitus with diabetic neuropathy, without long-term current use of insulin E11.40 confirmed 55201630 Problem Critical ischemia of lower extremity I70.229 confirmed 957200343 Peripher al Angiogra phy 06/05/20 20 Problem Type 2 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, without long-term current use of insulin E11.52 confirmed 228475631 Problem Osteoporosis M81.0 confirmed 3766210 6 Problem Vascular dementia with behavior disturbance F01.51 confirmed 41564175 0 068921 Problem Stage 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 confirmed 089143446 Problem Hypoglycemia associated with diabetes E11.649 confirmed 088849328 Problem Moderate episode of recurrent major depressive disorder F33.1 confirmed 676029064 Problem Dependence on supplemental oxygen Z99.81 confirmed 143519996 107 Problem Type 2 diabetes mellitus with diabetic neuropathy, unspecified E11.40 confirmed 41944371 Problem SNHL (sensory-neur al hearing loss), 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 confirmed 535427329 Problem Stage 3 chronic kidney disease, unspecified whether stage 3a or 3b CKD N18.30 confirmed 509611658 Problem Hypothyroidis m E03.9 confirmed 11286804 Problem Chronic renal failure, stage 3 (moderate), unspecified whether stage 3a or 3b CKD N18.30 confirmed Problem Chronic kidney disease, stage 3 unspecified N18.30 confirmed 118509860 ALLERGIES Allergen (clinical drug ingredient) Drug/Non Drug Allergy documented on EMR Reaction Allergy Type Onset Date Status liraglutide Victoza([facility] Code:[address]-36) stomach upset Drug Allergy Active ENCOUNTERS from 1937 to 2023-01-31 Encounter Location Date Provider Diagnosis [facility] [address] [facility] [id number] [place] [address] 10 Feb, 2021 FAHAD GAULT Hypothyroidism (acquired) E03.9 IMMUNIZATIONS Vaccine Route Administration Date Status FLUZONE HIGH DOSE 0.5ML (65 and UP) 2017 IM Intramuscular Jun 15, 2018 Administered influenza (history) Unknown Jun 15, 2020 Administ ered influenza H1N1 (history) Unknown Jun 02, 2009 Adm inistered COVID-19 Moderna (history) Unknown Aug 16, 2020 A dministered influenza (history) Unknown Apr 22, 2019 Administ ered FLUZONE HIGH DOSE 65 AND UP 2015 IM Intramuscular May 28, 2016 Administered PRIVATE SHINGRIX (HERPES ZOS TER-2 DOSE) IM Intramuscular November 08, 2018 Administered FLUZONE HIGH DOSE (65 AND UP) 2016 IM Intramuscular Oc 2016 Administered PRIVATE SHINGRIX (HERPES ZOS TER-2 DOSE) IM Intramuscular Aug 16, 2018 Administered PRIVATE PPSV23 (PNEUMOVAX) IM Intramuscular October 12, 2017 Administered COVID-19 Moderna (history) Unknown September 12, 2020 Administered PRIVATE HIGH DOSE FLU 22-23 (FLUZONE HD) AGE 65YRS AND UP IM Intramuscular Apr 17, 2022 Administer ed influenza IIV3 (history) Unknown Apr 22, 2011 Adm inistered FLUARIX QUAD (3 & UP)-GSK-2014 [...] Duration) Notes Start Date End Date Status Sertraline HCl 100 MG TAKE ONE AND ONE-HALF (1 & 1/2) TABLETS BY MOUTH ONCE DAILY for 90 Active busPIRone HCl 10 MG 1 tablet Orally Twic e a day for 90 days Jun, Active levETIRAcetam 500 MG TAKE ONE (1) TABLET BY MOUTH TWICE DAILY for 90 Active QUEtiapine Fumarate 50 MG TAKE ONE AND ONE-HALF (1 & 1/2) TABLETS BY MOUTH ONCE DAILY AT BEDTIME for 90 Active Atorvastatin Calcium 20 MG TAKE ONE (1) TABLET BY MOUTH ONCE DAILY for 90 Active glipiZIDE 5 MG 1 tablet 30 minutes before breakfast Orally Once a day Dec, Active Blood Glucose Test - as directed In Vitr o for 30 days For glucocard shine Mar, Active Levothyroxine Sodium 100 MCG TAKE ONE (1) TABLET BY MOUTH ONCE DAILY IN THE MORNING ON AN EMPTY STOMACH orally once a day for 90 days Active Lancets - as directed twice a day for 30 days Mar, Active Alendronate Sodium 70 MG TAKE ONE (1) TABLET BY MOUTH ONCE WEEKLY 30 MINUTES BEFORE FIRST FOOD; BEVERAGE; OR MEDICINE OF THE DAY WITH PLAIN WATER for 28 Active Losartan Potassium 50 MG 1 tablet Orally Once a day for 30 days Dec, Active Clopidogrel Bisulfate 75 MG TAKE ONE (1) TABLET BY MOUTH ONCE DAILY for 30 Active amLODIPine Besylate 10 MG TAKE ONE (1) TABLET BY MOUTH ONCE DAILY for 90 Active Donepezil HCl 5 MG TAKE ONE (1) TABLET BY MOUTH ONCE DAILY AT BEDTIME for 90 Active Levemir Flexpen 100 UNIT/ML 15 units Subcutaneous e Dec, Active Aspirin 81 MG 1 tablet Orally Once a day for 30 day(s) Jul, Active Bydureon BCise 2 MG/0.85ML INJECT 2MG SUBCUTANEOUSLY (UNDER THE SKIN) ONCE EVERY WEEK for 28 Active REASON FOR VISIT Medication Refill Request MEDICAL (GENERAL) HISTORY Type Description [...] pt w ent to and then Via [facility] 10/15/15 Hospitalization History Hypotension, Wander ateral leg weakness--[facility]ia [facility] 01/15/16 Hospitalization History hypertension/chest pain 03/2017 Hospitalization History [facility] X3 nights for AMS, weakness, 12/28/2022 MENTAL STATUS No Information ASSESSMENTS Encounter Date Diagnosis Assessment Notes Treatment Notes Treatment Clinical Notes Feb, Hypothyroidism (acquired) (ICD-10 - E03.9) PLAN OF TREATMENT Medication Medication Name Sig Start Date Stop Date Levothyroxine Sodium 100 MCG TAKE ONE (1 ) TABLET BY MOUTH ONCE DAILY IN THE MORNING ON AN EMPTY STOMACH orally once a day for 90 days Levemir Flexpen 100 UNIT/ML 15 units Subcutaneous e Dec, glipiZIDE 5 MG 1 tablet 30 minutes before breakfast Orally Once a day Dec, Next Appt Details Provider Name:FAHAD MENDEZ, 2 02:00:00 PM, [address] , [place], [address], Provider Name:FAHAD MENDEZ, 2 03:40:00 PM, [address] [facility], [place], [address], Insurance Providers Payer Name Payer Address Payer Phone Insured Name Patient Relationship to Insured Coverage Start Date Coverage End Date Subscriber Number Group Number [address] [address] [facility] [phone] Lady Méndez Self - patient is the insured 0 [id number] [facility] MEDICARE Part A [address] [facility] [address] Lady Méndez Self - patient is the insured [id number]
--- OUTSIDE RECORDS SUMMARY | 2023-03-21 11:31 | XMS REPORT ---
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.73 confirmed 142406371 10/2015 Problem Anxiety F41.9 confirmed 52748029 Problem Other chronic pain G89.29 confirmed 92557369 Problem Dementia with behavioral disturbance, unspecified dementia type F03.91 confirmed 448013 011 9103 Problem Hypothyroidis m (acquired) E03.9 confirmed 956057156 Problem PVD (peripheral vascular disease) I73.9 confirmed 681069480 Problem Chronic kidney disease, stage 3 (moderate) N18.3 confirmed 850142125 Problem Moderate episode of recurrent major depressive disorder F33.1 confirmed 004231152 Problem 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 confirmed 974287583 Problem Type 2 diabetes mellitus with diabetic neuropathy, unspecified E11.40 confirmed 30004831 Problem Falls frequently R29.6 confirmed 951040234 Problem Left-sided muscle weakness M62.81 confirmed 020364948 Problem SNHL (sensory-neur al hearing loss), 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 confirmed 073115720 Problem Cardiomegaly I51.7 confirmed 6092516 Problem 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 32076380 s/p CVA Problem Polymyalgia rheumatica M35.3 confirmed 75612911 Problem Type 2 diabetes mellitus with diabetic neuropathy, without long-term current use of insulin E11.40 confirmed 52968486 Problem Type 2 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, without long-term current use of insulin E11.52 confirmed 209905961 Problem Stage 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 confirmed 846612841 Problem Vascular dementia without behavioral disturbance F01.50 confirmed 087417430 Problem Stage 3 chronic kidney disease, unspecified whether stage 3a or 3b CKD N18.30 confirmed 832762677 Problem 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 confirmed 71479697 9 102 Problem 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 confirmed 66799218 Problem Pressure ulcer of other site, stage 3 L89.893 confirmed 718465744 Problem Type 2 diabetes mellitus with other diabetic ophthalmic complication E11.39 confirmed 459573831 Problem Osteoporosis M81.0 confirmed 5507481 6 Problem Vascular dementia with behavior disturbance F01.51 confirmed 23389417 0 314138 ALLERGIES Allergen (clinical drug ingredient) Drug/Non Drug Allergy documented on EMR Reaction Allergy Type Onset Date Status liraglutide Victoza([facility] Code:[address]-24) stomach upset Drug Allergy Active ENCOUNTERS from 1935 to 2022-07-22 Encounter Location Date Provider Diagnosis [facility] [address] [facility] [id number] [place] [address] Jul, FAHAD MENDEZ Vascular dementia without behavioral disturbance F01.50 ; Hypertension I10 ; 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 ; Type 2 diabetes mellitus with diabetic neuropathy, unspecified E11.40 ; Chronic kidney disease, stage 3 (moderate) N18.3 ; PVD (peripheral vascular disease) I73.9 and BMI 29.0-29.9,adult Z68.29 IMMUNIZATIONS Vaccine Route Administration Date Status PRIVATE [...] 12, 2020 Administered FLUARIX QUAD (3 & UP)-GSK-2015 IM Intramuscular Apr 132014 Administered PRIVATE HIGH DOSE FLU 22-23 (FLUZONE HD) AGE 65YRS AND UP IM Intramuscular Apr 17, 2022 Administer ed FLUZONE HIGH DOSE 65 AND UP 2016 IM Intramuscular May 28, 2016 Administered FLUZONE HIGH DOSE (65 AND UP) 2017 IM Intramuscular Oc 2016 Administered PRIVATE PPSV23 [...] No Information VITAL SIGNS Height 62 in Jul, Weight 160.9 lbs Jul, Weight-kg 72.98 kg Jul, Temperature 97.7 degrees Fahrenheit Jul, Heart Rate 56 bpm Jul, Respiratory Rate 20 bpm Jul, Oximetry 97 % Jul, BMI 29.43 kg/m2 Jul, Blood pressure systolic 144 mmHg Jul, Blood pressure diastolic 60 mmHg Jul, MEDICATIONS Medication SIG (Take, Route, Frequency, Duration) [...] WATER for 28 Active REASON FOR VISIT Follow up pt has been having sores on her legs. also needing refills on medication. Fior Grover MA, A1C, Fior Grover MA MEDICAL (GENERAL) HISTORY Type Description Date Medical [...] Hospitalization History Post Stroke pt went to [facility] and then [facility] 10/15/15 Hospitalization History Hypotension, Wander ateral leg weakness--Via [facility] 01/15/16 Hospitalization History hypertension/chest pain 03/2017 MENTAL STATUS No Information ASSESSMENTS Encounter Date Diagnosis Assessment Notes Treatment Notes Treatment Clinical Notes Jul, Vascular dementia without behavioral disturbance (ICD-10 - F01.50) - Able to complete ADLs but does need some assistance with iADLs - continue Aricept Jul, Hypertension (ICD-10 - I10) Jul, 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 (ICD-10 - E11.39) - Discussed the importance of keep A1c under control - Denies any hypoglycemia, discussed signs and symptoms with patient and daugther Jul, Type 2 diabetes mellitus with diabetic neuropathy, unspecified (ICD-10 - E11.40) Jul, Chronic kidney disease, stage 3 (moderate) (ICD-10 - N18.3) Jul, PVD (peripheral vascular disease) (ICD-10 - I73.9) - Following with Cardiology, recent had LE catheter Jul, BMI 29.0-29.9,adult (ICD-10 - Z68.29) PLAN OF TREATMENT Medication Medication Name Sig [...] e a day for 90 days Jun, Treatment Notes Assessment Notes Clinical Notes Vascular dementia without be havioral disturbance - Able to complete ADLs but does need some assistance with iADLs - continue Aricept Non insulin dependent diabet es mellitus with ophthalmic complication - Discussed the importance of keep A1c under control - Denies any hypoglycemia, discussed signs and symptoms with patient and daugther PVD (peripheral vascular disease) - Foll owing with Cardiology, recent had LE catheter Next Appt Details 3 Months with Keven COE Reason: Insurance Providers Payer Name Payer Address Payer Phone Insured Name Patient Relationship to Insured Coverage Start Date Coverage End Date Subscriber Number Group Number [employer] MEDICARE Part A [address] [facility] [address] [phone] Lady Méndez Self - patient is the insured [id number] [facility] [address] [facility] [address] Lady Méndez Self - patient is the insured 0 [id number]
--- OUTSIDE RECORDS SUMMARY | 2023-03-21 11:31 | XMS REPORT ---
Author Author [facility] ter of [facility] ter of [facility] Address Unknown Phone Unavailable Care Team Providers Care Continuous Still Operator Name Role Phone OMI SIMMONS Unavailable PROBLEMS Type Condition ICD9-CM Code XGW28-UV Code Onset Dates Condition Status SNOMED Code Notes Problem Hypertension I10 Active 47444286 Problem History of cerebrovascular accident with hemiparesis or hemiplegia Z86.73 Active 999157719 10/2015 Problem Anxiety F41.9 Active 58163442 Problem Other chronic pain G89.29 Active 06749492 Problem Dementia with behavioral disturbance, unspecified dementia type F03.91 Active 1423112026056 Problem Hypothyroidism (acquired) E03.9 Active 616310560 Problem Vascular dementia without behavioral disturbance F01.50 Active 411664045 Problem 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 Active 760633672741 Problem Falls frequently R29.6 Active 3796860 02 Problem Type 2 diabetes mellitus with diabetic neuropathy, unspecified E11.40 Active 60125960 Problem Moderate episode of recurrent major depressive disorder F33.1 Active 973272992 Problem BMI 31.0-31.9,adult Z68.31 Active 144559946308535 Problem 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 Active 906630812 Problem Chronic kidney disease, stage 3 (moderate) N18.3 Active 291009850 Problem 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 Active 63361248 Problem SNHL (sensory-neural hearing loss), 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 Active 524810185 Problem Left-sided muscle weakness M62.81 Active 324961813 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 95198938 s/p CVA Problem Cardiomegaly I51.7 Active 0243190 ALLERGIES Allergen (clinical drug ingredient) Drug/Non Drug Allergy documented on EMR Reaction Allergy Type Onset Date Status liraglutide Victoza([facility] Code:[address]-72) stomach upset Drug Allergy Active ENCOUNTERS from 1935 to 2020-03-09 Encounter Location Date Provider Diagnosis [facility] [address] [facility] [id number] [place] [address] 10 Jun, 2012 OMI SIMMONS IMMUNIZATIONS Vaccine Route Administration Date Status FLUZONE HIGH DOSE 65 AND UP 2016 IM Intramuscular May 28, 2016 Administered influenza IIV3 (history) Unknown Apr 28, 2013 Jon garland PRIVATE PCV 13 (PREVNAR) IM [...] (history) Unknown Apr 22, 2011 Jon garland Influenza, seasonal, injecta ble (split), [...] Hospitalization History Post Stroke pt went to [facility] and then [facility] 10/15/15 Hospitalization History Hypotension, Wander ateral leg weakness--Via [facility] 01/15/16 Hospitalization History hypertension/chest pain 03/2017 MENTAL STATUS No Information PLAN OF TREATMENT Medication Medication Name Sig Start Date Stop Date BusPIRone HCl 10 MG 1 tablet Orally Twice a day for 30 days Insurance Providers Payer Name Payer Address Payer Phone Insured Name Patient Relationship to Insured Coverage Start Date Coverage End Date [address] [facility] [phone] Whitney Méndez ma 2009 [employer] MEDICARE Part A FI [address] [facility] [address] Whitney Méndez ma
--- OUTSIDE RECORDS SUMMARY | 2023-03-21 11:31 | XMS REPORT ---
Author Author [facility] ter of [facility] ter of [facility] Address Unknown Phone Unavailable Care Team Providers Care Shuttle Inspector Name Role Phone OMI SIMMONS Unavailable PROBLEMS Type Condition ICD9-CM Code FKZ01-NN Code Onset Dates Condition Status SNOMED Code Notes Problem Hypertension I10 Active 78892581 Problem History of cerebrovascular accident with hemiparesis or hemiplegia Z86.73 Active 581716610 10/2015 Problem Anxiety F41.9 Active 56390803 Problem Other chronic pain G89.29 Active 18952748 Problem Dementia with behavioral disturbance, unspecified dementia type F03.91 Active 6065060311853 Problem Hypothyroidism (acquired) E03.9 Active 424889949 Problem Vascular dementia without behavioral disturbance F01.50 Active 322967977 Problem Status post knee replacement Z96.659 Active 105237028301 Problem Falls frequently R29.6 Active 0207849 02 Problem Type 2 diabetes mellitus with diabetic neuropathy, unspecified E11.40 Active 17586975 Problem Moderate episode of recurrent major depressive disorder F33.1 Active 542402416 Problem BMI 31.0-31.9,adult Z68.31 Active 103400746340258 Problem 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 Active 517450282 Problem Chronic kidney disease, stage 3 (moderate) N18.3 Active 074787058 Problem 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 Active 19828926 Problem SNHL (sensory-neural hearing loss), 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 Active 446686550 Problem Left-sided muscle weakness M62.81 Active 953632054 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 91265995 s/p CVA Problem Cardiomegaly I51.7 Active 9569382 ALLERGIES Allergen (clinical drug ingredient) Drug/Non Drug Allergy documented on EMR Reaction Allergy Type Onset Date Status liraglutide Victoza([facility] Code:[address]-09) stomach upset Drug Allergy Active ENCOUNTERS from 1935 to 2020-07-30 Encounter Location Date Provider Diagnosis [facility] [address] [facility] [id number] [place] [address] November, OMI SIMMONS IMMUNIZATIONS Vaccine Route Administration Date Status influenza IIV3 (history) Unknown Apr 22, 2011 [facility] PRIVATE PPSV23 (PNEUMOVAX) IM Intramuscular October 12, 2017 Administered PRIVATE SHINGRIX (HERPES ZOS TER-2 DOSE) IM Intramuscular Aug 16, 2018 Administered influenza (history) Unknown Apr 21, 2019 Administ jefe FLUARIX QUAD (3 & UP)-GSK-2014 IM Intramuscular Apr 132014 Administered PRIVATE TDAP (BOOSTRIX) IM Intramuscular October 12 8 Administered Influenza, seasonal, injecta ble (split), for 3 yrs and up Unknown Apr 29, 2010 Administered FLUZONE HIGH DOSE 0.5ML (65 and UP) 2017 IM Intramuscular Jun 15, 2018 Administered PRIVATE SHINGRIX (HERPES ZOS TER-2 DOSE) IM Intramuscular November 08, 2018 Administered FLUZONE HIGH DOSE (65 AND UP) 2016 IM Intramuscular Oc 2016 Administered FLUZONE HIGH DOSE 65 AND UP 2015 IM Intramuscular May 28, 2016 Administered influenza IIV3 (history) Unknown May 02, 2014 Adm inistered influenza IIV3 (history) Unknown Apr 28, 2013 [facility] influenza IIV3 (history) Unknown Apr 12, 2012 [facility] PRIVATE PCV 13 (PREVNAR) IM Intramuscular May 28, 2016 Administered SOCIAL HISTORY Sex Assigned At : Social History Observation Description Sex Assigned At Unknown Alcohol Screen (Audit-C) Question Answer Notes Did you have a drink containing alcohol in the p ast year? No Points 0 Interpretation Negative PHQ2 Question Answer Notes In the last 2 weeks, how oft en have you had little interest or pleasure in doing things? Not at all In the last 2 weeks, how oft en have you been feeling down, depressed, or hopeless? Several days Total PHQ2 Score 1 Tobacco use other than smoking: Question Answer Notes Are you an other tobacco user? No REASON FOR REFERRAL No Information MEDICATIONS Medication SIG (Take, Route, Frequency, Duration) Notes Start Date End Date Status Seroquel 50 MG 1 tablet Orally Once a day for 90 days Jul, Active Levothyroxine Sodium 50 mcg 1 tablet [...] Once a day for 90 days Active Bydureon 2 MG Inject 2mg Subcutane ous once weekly for 28 Active Zoloft 100 MG 1.5 tablets Orally O nce a day for 90 days Aug, Active Aricept 5 mg 1 tablet at [...] Hospitalization History Post Stroke pt went to [facility] and then [facility] 10/15/15 Hospitalization History Hypotension, Wander ateral leg weakness--Via [facility] 01/15/16 Hospitalization History hypertension/chest pain 03/2017 MENTAL STATUS No Information PLAN OF TREATMENT Medication Medication Name Sig Start Date Stop Date Bydureon 2 MG Inject 2mg Subcutaneous once weekly for 28 Next Appt Details Provider Name:FAHAD MENDEZ, 2 -- 01:40:00 PM, [address] [id number], [place], [address], Insurance Providers Payer Name Payer Address Payer Phone Insured Name Patient Relationship to Insured Coverage Start Date Coverage End Date [facility] [address] [facility] [address] Whitney Méndez ma 2007 [facility] MEDICARE Part A FI [address] [facility] [address] Whitney Méndez ma
--- OUTSIDE RECORDS SUMMARY | 2023-03-21 11:31 | XMS REPORT ---
Author Author [facility] ter of [facility] ter of [facility] Address Unknown Phone Unavailable Care Team Providers Care Senior Interactive Developer Name Role Phone FAHAD MENDEZ Unavailable PROBLEMS Type Condition ICD9-CM Code [id number] Code Onset Dates Condition Status SNOMED Code Notes Problem Hypertension I10 Active 41813254 Problem History of cerebrovascular accident with hemiparesis or hemiplegia Z86.73 Active 282149399 10/2015 Problem Anxiety F41.9 Active 78825980 Problem Other chronic pain G89.29 Active 25801820 Problem Dementia with behavioral disturbance, unspecified dementia type F03.91 Active 6869934956103 Problem Hypothyroidism (acquired) E03.9 Active 606244613 Problem Vascular dementia without behavioral disturbance F01.50 Active 871631443 Problem Status post knee replacement Z96.659 Active 966367911037 Problem Falls frequently R29.6 Active 5134891 02 Problem Type 2 diabetes mellitus with diabetic neuropathy, unspecified E11.40 Active 69073738 Problem Moderate episode of recurrent major depressive disorder F33.1 Active 069918388 Problem BMI 31.0-31.9,adult Z68.31 Active 059706374574370 Problem 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 Active 298284739 Problem Chronic kidney disease, stage 3 (moderate) N18.3 Active 208727545 Problem 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 Active 66082970 Problem SNHL (sensory-neural hearing loss), 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 Active 391410565 Problem Left-sided muscle weakness M62.81 Active 225206328 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 30910479 s/p CVA Problem Cardiomegaly I51.7 Active 9026796 ALLERGIES Allergen (clinical drug ingredient) Drug/Non Drug Allergy documented on EMR Reaction Allergy Type Onset Date Status liraglutide Victoza([facility] Code:[address]-37) stomach upset Drug Allergy Active ENCOUNTERS from 1935 to 2020-06-04 Encounter Location Date Provider Diagnosis [facility] [address] [facility] [id number] [place] [address] November, FAHAD MENDEZ IMMUNIZATIONS Vaccine Route Administration Date Status influenza (history) Unknown Apr 21, 2019 Administ ered FLUARIX QUAD (3 & UP)-GSK-2014 IM Intramuscular Apr 132014 Administered FLUZONE HIGH DOSE (65 AND UP) 2016 IM Intramuscular Oc 2016 Administered PRIVATE PCV 13 (PREVNAR) IM Intramuscular May 28, 2016 Administered Influenza, seasonal, injecta ble (split), for 3 yrs and up Unknown Apr 29, 2010 Administered PRIVATE PPSV23 (PNEUMOVAX) IM Intramuscular October 12, 2017 Administered influenza IIV3 (history) Unknown Apr 22, 2011 Pen dada influenza IIV3 (history) Unknown Apr 12, 2012 Pen dada influenza IIV3 (history) Unknown Apr 28, 2013 Pen dada influenza IIV3 (history) Unknown May 02, 2014 Adm inistered FLUZONE HIGH DOSE 0.5ML (65 and UP) 2017 IM Intramuscular Jun 15, 2018 Administered PRIVATE SHINGRIX (HERPES ZOS TER-2 DOSE) IM Intramuscular November 08, 2018 Administered PRIVATE SHINGRIX (HERPES ZOS TER-2 DOSE) IM Intramuscular Aug 16, 2018 Administered FLUZONE HIGH DOSE 65 AND UP 2015 IM Intramuscular May 28, 2016 Administered PRIVATE TDAP (BOOSTRIX) IM Intramuscular October 12 8 Administered SOCIAL HISTORY Tobacco Use: Social History [...] for 90 days Active REASON FOR VISIT Refill Request MEDICAL [...] [facility] and then Via [facility] 10/15/15 Hospitalization History Hypotension, Wander ateral leg weakness--Via [facility] 01/15/16 Hospitalization History hypertension/chest pain 03/2017 [...] MEDICARE Part A FI [address] [facility] [address] Whitney Méndez ma [facility] [address] [facility] [address] Whitney Méndez ma 2007
--- OUTSIDE RECORDS SUMMARY | 2023-03-21 11:31 | XMS REPORT ---
Author Author [facility] ter of [facility] ter [facility] Address Unknown Phone Unavailable Care Team Providers Care Telecom Engineer Name Role Phone FAHAD MENDEZ Unavailable PROBLEMS Type Condition ICD9-CM Code [id number] Code Onset Dates Condition Status W/U Status Risk SNOMED Code Notes Problem Hypothyroidis m (acquired) E03.9 confirmed 679781516 Problem Status post knee replacement Z96.659 confirmed 55715245 9 102 Problem Dementia with behavioral disturbance, unspecified dementia type F03.91 confirmed 508484 011 9103 Problem 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 confirmed 807197848 Problem Vascular dementia without behavioral disturbance F01.50 confirmed 429290476 Problem Moderate episode of recurrent major depressive disorder F33.1 confirmed 682744386 Problem Non insulin dependent diabetes mellitus with ophthalmic complication E11.39 confirmed 45112887 Problem Type 2 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, without long-term current use of insulin E11.52 confirmed 105456240 Problem Hypertension I10 confirmed 4037385 3 Problem Type 2 diabetes mellitus with diabetic neuropathy, without long-term current use of insulin E11.40 confirmed 01571820 Problem Critical ischemia of lower extremity I70.229 confirmed 455724389 Peripher al Angiogra phy 06/05/20 20 Problem Anxiety F41.9 confirmed 42318678 Problem Other chronic pain G89.29 confirmed 85210646 Problem Left-sided muscle weakness M62.81 confirmed 387550118 Problem SNHL (sensory-neur al hearing loss), 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 confirmed 977534354 Problem Chronic kidney disease, stage 3 (moderate) N18.3 confirmed 863110885 Problem Cardiomegaly I51.7 confirmed 3309747 Problem Polymyalgia rheumatica M35.3 confirmed 10695416 Problem PVD (peripheral vascular disease) I73.9 confirmed 994355594 Problem Pressure ulcer of other site, stage 3 L89.893 confirmed 719227443 Problem 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.73 confirmed 773156253 10/2015 Problem Type 2 diabetes mellitus with other diabetic ophthalmic complication E11.39 confirmed 865334542 Problem Osteoporosis M81.0 confirmed 2820509 6 Problem Stage 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 confirmed 512469223 Problem Stage 3 chronic kidney disease, unspecified whether stage 3a or 3b CKD N18.30 confirmed 733057758 Problem Dependence on supplemental oxygen Z99.81 confirmed 957209736 107 Problem Type 2 diabetes mellitus with diabetic neuropathy, unspecified E11.40 confirmed 43741135 Problem Vascular dementia with behavioral disturbance F01.518 confirmed 19665607 0 875425 Problem Falls frequently R29.6 confirmed 726419044 Problem 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 Problem Hypothyroidis m E03.9 confirmed 67521291 Problem Chronic renal failure, stage 3 (moderate), unspecified whether stage 3a or 3b CKD N18.30 confirmed Problem Chronic kidney disease, stage 3 unspecified N18.30 confirmed 260050113 Problem Hypoglycemia associated with diabetes E11.649 confirmed 353729235 ALLERGIES Allergen (clinical drug ingredient) Drug/Non Drug Allergy documented on EMR Reaction Allergy Type Onset Date Status liraglutide Victoza([facility] Code:[address]-22) stomach upset Drug Allergy Active ENCOUNTERS from 1935 to 2023-02-24 Encounter Location Date Provider Diagnosis [facility] [address] [facility] [id number] [place] [address] Mar, FAHAD MENDEZ IMMUNIZATIONS Vaccine Route Administration Date Status Influenza, seasonal, injecta ble (split), for 3 yrs and up Unknown Apr 29, 2010 Administered COVID-19 Moderna (history) Unknown September 12, 2020 Administered COVID-19 Moderna (history) Unknown Aug 16, 2020 A dministered influenza (history) Unknown Jun 15, 2020 Administ ered PRIVATE TDAP (BOOSTRIX) IM Intramuscular October 12 8 Administered influenza IIV3 (history) Unknown Apr 22, 2011 Adm inistered PRIVATE PPSV23 (PNEUMOVAX) IM Intramuscular October 12, 2017 Administered influenza IIV3 (history) Unknown Apr 12, 2009 Adm inistered PRIVATE PCV 13 (PREVNAR) IM Intramuscular May 28, 2016 Administered influenza IIV3 (history) Unknown Apr 12, 2012 Adm inistered PRIVATE SHINGRIX (HERPES ZOS TER-2 DOSE) IM Intramuscular November 08, 2018 Administered PRIVATE SHINGRIX (HERPES ZOS TER-2 DOSE) IM Intramuscular Aug 16, 2018 Administered FLUZONE HIGH DOSE (65 AND UP) 2016 IM Intramuscular Oc 2016 Administered influenza IIV3 (history) Unknown May 02, 2014 Adm inistered FLUARIX QUAD (3 & UP)-GSK-2014 IM Intramuscular Apr 132014 Administered FLUZONE HIGH DOSE 65 AND UP 2015 IM Intramuscular May 28, 2016 Administered FLUZONE HIGH DOSE 0.5ML (65 and UP) 2017 IM Intramuscular Jun 15, 2018 Administered influenza H1N1 (history) Unknown Jun 02, 2009 Adm inistered PRIVATE HIGH DOSE FLU 22-23 (FLUZONE HD) AGE 65YRS AND UP IM Intramuscular Apr 17, 2022 Administer ed influenza (history) Unknown Apr 22, 2019 Administ ered influenza IIV3 (history) Unknown Apr 28, 2013 Adm inistered SOCIAL HISTORY Sex Assigned At [...] SKIN) ONCE EVERY WEEK for 28 Active Lancets - as directed twice a [...] BEDTIME for 90 Active REASON FOR VISIT Med Start MEDICAL (GENERAL) HISTORY Type Description Date Medical [...] History Post Stroke pt w ent to [facility] and then Via [facility] 10/15/15 Hospitalization History Hypotension, Wander ateral leg weakness--Via [facility] 01/15/16 Hospitalization History hypertension/chest pain 03/2017 Hospitalization History [facility] X3 nights for AMS, weakness, 12/28/2022 MENTAL STATUS No Information PLAN OF TREATMENT Medication Medication Name Sig Start Date Stop Date Levemir Flexpen 100 UNIT/ML 15 units Sub cutaneous Once a day for 30 days Dec, Next Appt Details Provider Name:LYLE Granger, 2023-04-09 09:00:00 AM, [address] [facility], [id number], [place], [address], Provider Name:FAHAD MENDEZ, 2 023-10-31 02:00:00 PM, [address] , [place], [address], Insurance Providers Payer Name Payer Address Payer Phone Insured Name Patient Relationship to Insured Coverage Start Date Coverage End Date Subscriber Number Group Number NGS MEDICARE Part A [address] [facility] [id number] Lady Méndez Self - patient is the insured [id number] [facility] [address] [address] [facility] [address] Lady Méndez Self - patient is the insured [id number]
--- OUTSIDE RECORDS SUMMARY | 2023-03-21 11:31 | XMS REPORT ---
Author Author [facility] ter of [facility] ter of [facility] Address Unknown Phone Unavailable Care Team Providers Care Forensic Specialist Name Role Phone OMI SIMMONS Unavailable PROBLEMS Type Condition ICD9-CM Code [id number] Code Onset Dates Condition Status SNOMED Code Notes Problem Hypertension I10 Active 35050716 Problem History of cerebrovascular accident with hemiparesis or hemiplegia Z86.73 Active 339986784 10/2015 Problem Anxiety F41.9 Active 61979452 Problem Other chronic pain G89.29 Active 53776578 Problem Dementia with behavioral disturbance, unspecified dementia type F03.91 Active 8045490387355 Problem Hypothyroidism (acquired) E03.9 Active 261992881 Problem Vascular dementia without behavioral disturbance F01.50 Active 333567684 Problem Status post knee replacement Z96.659 Active 363484978681 Problem Falls frequently R29.6 Active 5762707 02 Problem Type 2 diabetes mellitus with diabetic neuropathy, unspecified E11.40 Active 16249868 Problem Moderate episode of recurrent major depressive disorder F33.1 Active 553450008 Problem BMI 31.0-31.9,adult Z68.31 Active 966565402143078 Problem 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 Active 629449521 Problem Chronic kidney disease, stage 3 (moderate) N18.3 Active 375694789 Problem Non insulin dependent diabetes mellitus with ophthalmic complication E11.39 Active 13360635 Problem SNHL (sensory-neural hearing loss), 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 Active 071887259 Problem Left-sided muscle weakness M62.81 Active 533406414 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 76689854 s/p CVA Problem Cardiomegaly I51.7 Active 1957026 ALLERGIES Allergen (clinical drug ingredient) Drug/Non Drug Allergy documented on EMR Reaction Allergy Type Onset Date Status liraglutide Victoza([facility] Code:[address]-86) stomach upset Drug Allergy Active ENCOUNTERS from 1935 to 2020-03-17 Encounter Location Date Provider Diagnosis [facility] [place] [address] [facility] [id number] [place] [address] Jul, OMI SIMMONS IMMUNIZATIONS Vaccine Route Administration Date Status PRIVATE SHINGRIX (HERPES ZOS TER-2 DOSE) IM Intramuscular November 08, 2018 Administered influenza (history) Unknown Apr 21, 2019 Administ ered FLUZONE HIGH DOSE 0.5ML (65 [...] VITAL SIGNS Height 62 in Jul, Weight 203.19 lbs Jul, Temperature 96.8 degrees Fahrenheit Jul, Heart Rate 72 bpm Jul, Respiratory Rate 18 bpm Jul, Blood pressure systolic 152 mmHg Jul, Blood pressure diastolic 80 mmHg Jul, MEDICATIONS Medication SIG (Take, Route, Fr equency, [...] Hospitalization History Post Stroke pt went to [facility] and then [facility] 10/15/15 Hospitalization History Hypotension, Wander ateral leg weakness--Via [facility] 01/15/16 Hospitalization History hypertension/chest pain 03/2017 MENTAL STATUS No Information PLAN OF TREATMENT Medication Medication Name Sig Start Date Stop Date BusPIRone HCl 10 MG 1 tablet Orally Twice a day for 30 days Insurance Providers Payer Name Payer Address Payer Phone Insured Name Patient Relationship to Insured Coverage Start Date Coverage End Date [facility] MEDICARE Part A FI [address] [facility] [address] Whitney Méndez ma [facility] [address] [facility] [address] Whitney Méndez ma 2007
--- OUTSIDE RECORDS SUMMARY | 2023-03-21 11:31 | XMS REPORT ---
Author Author [facility] ter of [facility] ter of [facility] Address Unknown Phone Unavailable Care Team Providers Care Residential Sales Name Role Phone OMI SIMMONS Unavailable PROBLEMS Type Condition ICD9-CM Code FZY51-XV Code Onset Dates Condition Status SNOMED Code Notes Problem Hypertension I10 Active 37950770 Problem History of cerebrovascular accident with hemiparesis or hemiplegia Z86.73 Active 706109700 10/2015 Problem Anxiety F41.9 Active 13601185 Problem Other chronic pain G89.29 Active 55380359 Problem Dementia with behavioral disturbance, unspecified dementia type F03.91 Active 2155824062091 Problem Hypothyroidism (acquired) E03.9 Active 673792257 Problem Vascular dementia without behavioral disturbance F01.50 Active 066520886 Problem Status post knee replacement Z96.659 Active 984933443748 Problem Falls frequently R29.6 Active 7042841 02 Problem Type 2 diabetes mellitus with diabetic neuropathy, unspecified E11.40 Active 37430339 Problem Moderate episode of recurrent major depressive disorder F33.1 Active 029157012 Problem BMI 31.0-31.9,adult Z68.31 Active 602110553644071 Problem 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 Active 315482810 Problem Chronic kidney disease, stage 3 (moderate) N18.3 Active 091834403 Problem Non insulin dependent diabetes mellitus with ophthalmic complication E11.39 Active 13928956 Problem SNHL (sensory-neural hearing loss), 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 [id number] [place] [address] November, OMI SIMMONS IMMUNIZATIONS Vaccine Route Administration Date Status PRIVATE TDAP (BOOSTRIX) IM Intramuscular October 12 8 Administered influenza IIV3 (history) Unknown May 02, 2014 Adm inistered PRIVATE PPSV23 (PNEUMOVAX) IM Intramuscular October 12, 2017 Administered PRIVATE PCV 13 (PREVNAR) IM Intramuscular May 28, 2016 Administered PRIVATE SHINGRIX (HERPES ZOS TER-2 DOSE) IM Intramuscular Aug 16, 2018 Administered FLUZONE HIGH DOSE (65 AND UP) 2016 IM Intramuscular Oc 2016 Administered influenza IIV3 (history) Unknown Apr 22, 2011 Pen dada influenza IIV3 (history) Unknown Apr 12, 2012 Pen ding influenza IIV3 (history) Unknown Apr 28, 2013 Pen ding FLUZONE HIGH DOSE 65 AND UP 2015 IM Intramuscular May 28, 2016 Administered influenza (history) Unknown Apr 21, 2019 Administ ered Influenza, seasonal, injecta ble (split), for 3 yrs and up Unknown Apr 29, 2010 Administered FLUARIX QUAD (3 & UP)-GSK-2014 IM Intramuscular Apr 132014 Administered FLUZONE HIGH DOSE 0.5ML (65 and UP) 2017 IM Intramuscular Jun 15, 2018 Administered PRIVATE SHINGRIX (HERPES ZOS TER-2 DOSE) IM Intramuscular November 08, 2018 Administered SOCIAL HISTORY Sex Assigned At : [...] ce a day for 90 days Active Aspirin 81 MG 1 tablet Orally Once a day for 30 day(s) Jul, Active Norvasc 10 mg 1 tablet Orally Once a day for 90 days Active Aricept 5 mg 1 tablet at bedtime Orally Once a day for 90 days Active Zoloft 100 MG 1.5 tablets Orally O nce a day for 90 days Aug, Active BusPIRone HCl 10 MG 1 tablet Orally Twic e a day for 30 days Active Bydureon 2 MG Inject 2mg [...] [facility] and then Via [facility] 10/15/15 Hospitalization History Hypotension, Wander ateral leg weakness--Via [facility] 01/15/16 Hospitalization History hypertension/chest pain 03/2017 MENTAL STATUS No Information PLAN OF TREATMENT Next Appt Details Provider Name:FAHAD VANESSA, 2 021-02- 01:40:00 PM, [address] [facility], [id number], [place], [address], Insurance Providers Payer Name Payer Address Payer Phone Insured Name Patient Relationship to Insured Coverage Start Date Coverage End Date NGS MEDICARE Part A [address] [facility] [address] Whitney Méndez ma [address] [facility] [address] [phone] Whitney Méndez ma 2007
--- OUTSIDE RECORDS SUMMARY | 2023-03-21 11:31 | XMS REPORT ---
Author Author [facility] ter of [facility] ter of [facility] Address Unknown Phone Unavailable Care Team Providers Care It Specialist Name Role Phone OMI SIMMONS Unavailable PROBLEMS Type Condition ICD9-CM Code GJV29-OC Code Onset Dates Condition Status SNOMED Code Notes Problem Hypertension I10 Active 51326961 Problem History of cerebrovascular accident with hemiparesis or hemiplegia Z86.73 Active 083520161 10/2015 Problem Anxiety F41.9 Active 04011273 Problem Other chronic pain G89.29 Active 30737758 Problem Dementia with behavioral disturbance, unspecified dementia type F03.91 Active 1942155820066 Problem Hypothyroidism (acquired) E03.9 Active 699665909 Problem Vascular dementia without behavioral disturbance F01.50 Active 379928192 Problem Status post knee replacement Z96.659 Active 523169657216 Problem Falls frequently R29.6 Active 9557714 02 Problem Type 2 diabetes mellitus with diabetic neuropathy, unspecified E11.40 Active 97510254 Problem Moderate episode of recurrent major depressive disorder F33.1 Active 567258568 Problem BMI 31.0-31.9,adult Z68.31 Active 694814704758132 Problem 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 Active 353687623 Problem Chronic kidney disease, stage 3 (moderate) N18.3 Active 660579764 Problem Non insulin dependent diabetes mellitus with ophthalmic complication E11.39 Active 00968072 Problem SNHL (sensory-neural hearing loss), 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 Active 000546915 Problem Left-sided muscle weakness M62.81 Active 704778053 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 98016362 s/p CVA Problem Cardiomegaly I51.7 Active 5045530 ALLERGIES Allergen (clinical drug ingredient) Drug/Non Drug Allergy documented on EMR Reaction Allergy Type Onset Date Status liraglutide Victoza([facility] Code:[address]-34) stomach upset Drug Allergy Active ENCOUNTERS from 1935 to 2020-04-01 Encounter Location Date Provider Diagnosis [facility] [place] [address] [facility] [id number] [place] [address] May, OMI SIMMONS IMMUNIZATIONS Vaccine Route Administration Date [...] e a day for 30 days Active Levothyroxine Sodium 50 mcg 1 tablet on an empty stomach in the morning Orally Once a day for 90 days Active Zoloft 100 MG 1.5 tablets Orally O nce a day for 90 days Aug, Active Seroquel 50 MG 1 tablet Orally Once a day for 90 days Jul, Active Levetiracetam 500 MG 1 tablet Orally Twi ce a day for 90 days Active Bydureon 2 MG Inject 2mg Subcutane ous once weekly for 28 Active Aricept 5 mg 1 tablet at [...] Hospitalization History Post Stroke pt went to [facility] and then Via [facility] [...] Start Date Coverage End Date [address] [facility] [address] Whitney Méndez ma 2007 [facility] MEDICARE Part A FI [address] [facility] [address] Whitney Méndez ma
--- OUTSIDE RECORDS SUMMARY | 2023-03-21 11:31 | XMS REPORT ---
Author Author [facility] ter of [facility] ter of [facility] Address Unknown Phone Unavailable Care Team Providers Care Tapper Hand Name Role Phone OMI SIMMONS Unavailable PROBLEMS Type Condition ICD9-CM Code SOQ68-IB Code Onset Dates Condition Status SNOMED Code Notes Problem Hypertension I10 Active 31836943 Problem History of cerebrovascular accident with hemiparesis or hemiplegia Z86.73 Active 554812812 10/2015 Problem Anxiety F41.9 Active 04802547 Problem Other chronic pain G89.29 Active 06926340 Problem Dementia with behavioral disturbance, unspecified dementia type F03.91 Active 0054603131773 Problem Hypothyroidism (acquired) E03.9 Active 775872968 Problem Vascular dementia without behavioral disturbance F01.50 Active 059398819 Problem Status post knee replacement Z96.659 Active 942806775595 Problem Falls frequently R29.6 Active 2486220 02 Problem Type 2 diabetes mellitus with diabetic neuropathy, unspecified E11.40 Active 92412146 Problem Moderate episode of recurrent major depressive disorder F33.1 Active 740582431 Problem BMI 31.0-31.9,adult Z68.31 Active 646524090557415 Problem 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 Active 049598522 Problem Chronic kidney disease, stage 3 (moderate) N18.3 Active 184047045 Problem Non insulin dependent diabetes mellitus with ophthalmic complication E11.39 Active 61626365 Problem SNHL (sensory-neural hearing loss), 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 Active 192095463 Problem Left-sided muscle weakness M62.81 Active 680056438 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 61219685 s/p CVA Problem Cardiomegaly I51.7 Active 6518223 ALLERGIES Allergen (clinical drug ingredient) Drug/Non Drug Allergy documented on EMR Reaction Allergy Type Onset Date Status liraglutide Victoza([facility] Code:[address]-50) stomach upset Drug Allergy Active ENCOUNTERS from 1935 to 2020-08-04 Encounter Location Date Provider Diagnosis [facility] [address] [facility] [id number] [place] [address] November, OMI SIMMONS IMMUNIZATIONS Vaccine Route Administration Date Status PRIVATE PCV 13 (PREVNAR) IM Intramuscular May 28, 2016 Administered Influenza, seasonal, injecta ble (split), for 3 yrs and up Unknown Apr 29, 2010 Administered PRIVATE PPSV23 (PNEUMOVAX) IM Intramuscular October 12, 2017 Administered PRIVATE TDAP (BOOSTRIX) IM Intramuscular October 12 8 Administered influenza IIV3 (history) Unknown May 02, 2014 Adm inistered influenza IIV3 (history) Unknown Apr 28, 2013 Jon garland influenza IIV3 (history) Unknown Apr 22, 2011 Jon garland FLUARIX QUAD (3 & UP)-GSK-2014 IM Intramuscular [...] influenza (history) Unknown Apr 21, 2019 Administ erekeaton PRIVATE SHINGRIX (HERPES ZOS TER-2 DOSE) IM Intramuscular November 08, 2018 Administered influenza IIV3 (history) Unknown Apr 12, 2012 Jon garland SOCIAL HISTORY Sex Assigned At : Social [...] History Post Stroke pt went to [facility] and then [facility] 10/15/15 Hospitalization History Hypotension, Wander ateral leg weakness--Via [facility] 01/15/16 Hospitalization History hypertension/chest pain 03/2017 MENTAL STATUS No Information PLAN OF TREATMENT Medication Medication Name Sig Start Date Stop Date Bydureon 2 MG Inject 2mg Subcutaneous once weekly for 28 Next Appt Details Provider Name:FAHAD MENDEZ, 2 021-02-09 01:40:00 PM, [address] [facility] [address], [id number], [place], [address], Insurance Providers Payer Name Payer Address Payer Phone Insured Name Patient Relationship to Insured Coverage Start Date Coverage End Date [facility] MEDICARE Part A FI [address] [facility] [phone] Whitney Méndez ma [facility] [address] [facility] [phone] Whitney Méndez ma 2007
--- OUTSIDE RECORDS SUMMARY | 2023-03-21 11:31 | XMS REPORT ---
Author Author [facility] ter of [facility] ter of [facility] Address Unknown Phone Unavailable Care Team Providers Care Antique Clock Repairer Name Role Phone OMI SIMMONS Unavailable PROBLEMS Type Condition ICD9-CM Code NJE01-OM Code Onset Dates Condition Status SNOMED Code Notes Problem Hypertension I10 Active 55532592 Problem History of cerebrovascular accident with hemiparesis or hemiplegia Z86.73 Active 614687868 10/2015 Problem Anxiety F41.9 Active 05731850 Problem Other chronic pain G89.29 Active 37772507 Problem Dementia with behavioral disturbance, unspecified dementia type F03.91 Active 5169907893363 Problem Hypothyroidism (acquired) E03.9 Active 999531534 Problem Vascular dementia without behavioral disturbance F01.50 Active 077765514 Problem Status post knee replacement Z96.659 Active 224987934545 Problem Falls frequently R29.6 Active 3899592 02 Problem Type 2 diabetes mellitus with diabetic neuropathy, unspecified E11.40 Active 94606827 Problem Moderate episode of recurrent major depressive disorder F33.1 Active 523512375 Problem BMI 31.0-31.9,adult Z68.31 Active 365732685735053 Problem 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 Active 651018863 Problem Chronic kidney disease, stage 3 (moderate) N18.3 Active 563470894 Problem Non insulin dependent diabetes mellitus with ophthalmic complication E11.39 Active 26022116 Problem SNHL (sensory-neural hearing loss), 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 Active 344548153 Problem Left-sided muscle weakness M62.81 Active 584569594 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 67375421 s/p CVA Problem Cardiomegaly I51.7 Active 9452757 ALLERGIES Allergen (clinical drug ingredient) Drug/Non Drug Allergy documented on EMR Reaction Allergy Type Onset Date Status liraglutide Victoza([facility] Code:[address]-42) stomach upset Drug Allergy Active ENCOUNTERS from 1935 to 2020-04-24 Encounter Location Date Provider Diagnosis [facility] [address] [facility] [id number] [place] [address] 30 Apr, 2012 OMI SIMMONS IMMUNIZATIONS Vaccine Route Administration [...] Once a day for 90 days Active Norvasc 10 mg 1 tablet [...] History Post Stroke pt went to [facility] and then [facility] 10/15/15 Hospitalization [...] nce a day for 90 days Aug, Levothyroxine Sodium 50 mcg 1 tablet on an empty stomach in the morning Orally Once a day for 90 days Insurance Providers Payer Name Payer Address Payer Phone Insured Name Patient Relationship to Insured Coverage Start Date Coverage End Date NGS MEDICARE Part A FI [address] [facility] [address] Whitney Méndez ma [facility] [address] [facility] [phone] Whitney Méndez ma 2007
--- OUTSIDE RECORDS SUMMARY | 2023-03-21 11:31 | XMS REPORT ---
Author Author [facility] ter of [facility] ter of [facility] Address Unknown Phone Unavailable Care Team Providers Care Pan Washer Hand Name Role Phone FAHAD MENDEZ Unavailable PROBLEMS Type Condition ICD9-CM Code [id number] Code Onset Dates Condition Status SNOMED Code Notes Problem Hypertension I10 Active 41200012 Problem History of cerebrovascular accident with hemiparesis or hemiplegia Z86.73 Active 291546235 10/2015 Problem Anxiety F41.9 Active 18971205 Problem Other chronic pain G89.29 Active 47263115 Problem Dementia with behavioral disturbance, unspecified dementia type F03.91 Active 7068558333719 Problem Hypothyroidism (acquired) E03.9 Active 922446705 Problem Vascular dementia without behavioral disturbance F01.50 Active 838743286 Problem Status post knee replacement Z96.659 Active 257687441960 Problem Falls frequently R29.6 Active 6443164 02 Problem Type 2 diabetes mellitus with diabetic neuropathy, unspecified E11.40 Active 19403092 Problem 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 Active 984786251 Problem BMI 31.0-31.9,adult Z68.31 Active 228301773005158 Problem 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 Active 547814358 Problem Chronic kidney disease, stage 3 (moderate) N18.3 Active 243484196 Problem 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 Active 28795642 Problem SNHL (sensory-neural hearing loss), 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 Active 053988286 Problem Left-sided muscle weakness M62.81 Active 199828103 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 Problem Cardiomegaly I51.7 Active 9346358 ALLERGIES Allergen (clinical drug ingredient) Drug/Non Drug Allergy documented on EMR Reaction Allergy Type Onset Date Status liraglutide Victoza([facility] Code:[address]-70) stomach upset Drug Allergy Active ENCOUNTERS from 1935 to 2020-05-28 Encounter Location Date Provider Diagnosis [facility] [place] [address] [facility] [id number] [place] [address] Oct, FAHAD MENDEZ IMMUNIZATIONS Vaccine Route Administration Date Status influenza (history) Unknown Apr 21, 2019 Administ ered FLUZONE HIGH DOSE 0.5ML (65 and UP) 2017 IM Intramuscular Jun 15, 2018 Administered FLUARIX QUAD (3 & UP)-GSK-2014 IM Intramuscular Apr 132014 Administered PRIVATE SHINGRIX (HERPES ZOS TER-2 DOSE) IM Intramuscular November 08, 2018 Administered PRIVATE TDAP (BOOSTRIX) IM Intramuscular October 12 8 Administered PRIVATE PPSV23 (PNEUMOVAX) IM Intramuscular October 12, 2017 Administered Influenza, seasonal, injecta ble (split), for 3 yrs and up Unknown Apr 29, 2010 Administered PRIVATE SHINGRIX (HERPES ZOS TER-2 DOSE) [...] day for 30 day(s) Jul, Active Bydureon 2 MG Inject 2mg Subcutane ous once weekly for 28 Active Seroquel 50 MG 1 tablet Orally Once a day for 90 days Jul, Active BusPIRone HCl 10 MG 1 tablet Orally Twic e a day for 30 days Active Levothyroxine Sodium 50 mcg 1 tablet on an empty stomach in the morning Orally Once a day for 90 days Active Zoloft 100 MG 1.5 tablets Orally O nce a day for 90 days Aug, Active Levetiracetam 500 MG 1 tablet Orally Twi ce a day for 90 days Active REASON FOR VISIT Shingrix rx MEDICAL (GENERAL) HISTORY Type Description Date Medical [...] Hospitalization History Post Stroke pt went to [facility] and then [facility] 10/15/15 Hospitalization History Hypotension, Wander ateral leg weakness--Via [facility] 01/15/16 Hospitalization History hypertension/chest pain 03/2017 MENTAL [...] nce a day for 90 days Aug, BusPIRone HCl 10 MG 1 tablet Orally Twic e a day for 30 days Aricept 5 mg 1 tablet at bedtime Orally Once a day for 90 days Bydureon 2 MG Inject 2mg Subcutane ous once weekly for 28 Insurance Providers Payer Name Payer Address Payer Phone Insured Name Patient Relationship to Insured Coverage Start Date Coverage End Date NGS MEDICARE Part A FI [address] [place] [id number] Whitney Méndez ma [facility] [address] [facility] [address] Whitney Méndez ma 2007
--- OUTSIDE RECORDS SUMMARY | 2023-03-21 11:31 | XMS REPORT ---
Author Author [facility] ter of [facility] ter [facility] Address Unknown Phone Unavailable Care Team Providers Care Chief Medical Officer Name Role Phone FAHAD MENDEZ Unavailable PROBLEMS Type Condition ICD9-CM Code OCV67-WS Code Onset Dates Condition Status W/U Status Risk SNOMED Code Notes Problem 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.73 confirmed 786680410 10/2015 Problem Other chronic pain G89.29 confirmed 05872816 Problem Hypertension I10 confirmed 6325925 3 Problem Hypothyroidis m (acquired) E03.9 confirmed 279854277 Problem Anxiety F41.9 confirmed 98518550 Problem Status post knee replacement Z96.659 confirmed 45958782 9 102 Problem Dementia with behavioral disturbance, unspecified dementia type F03.91 confirmed 960078 011 9103 Problem Polymyalgia rheumatica M35.3 confirmed 48445777 Problem PVD (peripheral vascular disease) I73.9 confirmed 068446390 Problem Critical ischemia of lower extremity I70.229 confirmed 685968282 Peripher al Angiogra phy 06/05/20 20 Problem Type 2 diabetes mellitus with diabetic neuropathy, unspecified E11.40 confirmed 29299281 Problem Falls frequently R29.6 confirmed 300386962 Problem Left-sided muscle weakness M62.81 confirmed 866826718 Problem 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 confirmed 405075360 Problem 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 84974315 s/p CVA Problem SNHL (sensory-neur al hearing loss), 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 confirmed 276660983 Problem Chronic kidney disease, stage 3 (moderate) N18.3 confirmed 473067471 Problem Cardiomegaly I51.7 confirmed 2806060 Problem Type 2 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, without long-term current use of insulin E11.52 confirmed 181760054 Problem Type 2 diabetes mellitus with diabetic neuropathy, without long-term current use of insulin E11.40 confirmed 29581110 Problem Pressure ulcer of other site, stage 3 L89.893 confirmed 820573299 Problem Stage 3 chronic kidney disease, unspecified whether stage 3a or 3b CKD N18.30 confirmed 185526010 Problem 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 confirmed 14247000 Problem Hypothyroidis m E03.9 confirmed 91807940 Problem Vascular dementia without behavioral disturbance F01.50 confirmed 883385848 Problem 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 confirmed 386569952 Problem Type 2 diabetes mellitus with other diabetic ophthalmic complication E11.39 confirmed 423700286 Problem Osteoporosis M81.0 confirmed 1023787 6 Problem Vascular dementia with behavior disturbance F01.51 confirmed 76134954 0 700291 Problem Stage 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 confirmed 151439832 ALLERGIES Allergen (clinical drug ingredient) Drug/Non Drug Allergy documented on EMR Reaction Allergy Type Onset Date Status liraglutide Victoza([facility] Code:[address]-87) stomach upset Drug Allergy Active ENCOUNTERS from 1935 to 2022-08-08 Encounter Location Date Provider Diagnosis [facility] [address] [id number] [place] [address] Sep, FAHAD MENDEZ IMMUNIZATIONS Vaccine Route Administration Date Status FLUZONE HIGH DOSE 0.5ML (65 and UP) 2017 IM Intramuscular Jun 15, 2018 Administered influenza (history) Unknown Apr 22, 2019 Administ ered influenza (history) Unknown Jun 15, 2020 Administ ered influenza H1N1 (history) Unknown Jun 02, 2009 Adm inistered PRIVATE TDAP (BOOSTRIX) IM Intramuscular October 12 8 Administered FLUZONE HIGH DOSE (65 AND UP) 2016 IM Intramuscular Oc 2016 Administered PRIVATE PPSV23 (PNEUMOVAX) IM Intramuscular October 12, 2017 Administered PRIVATE SHINGRIX (HERPES ZOS TER-2 DOSE) IM Intramuscular Aug 16, 2018 Administered PRIVATE SHINGRIX (HERPES ZOS TER-2 DOSE) IM Intramuscular November 08, 2018 Administered Influenza, seasonal, injecta ble (split), for [...] 2016 IM Intramuscular May 28, 2016 Administered FLUARIX QUAD (3 & UP)-GSK-2015 IM Intramuscular Apr 132014 Administered influenza IIV3 [...] Hospitalization History Post Stroke pt went to [facility] and then [facility] 10/15/15 Hospitalization History Hypotension, Wander ateral leg weakness--Via [facility] 01/15/16 Hospitalization History hypertension/chest pain [...] e a day for 90 days Jun, Next Appt Details Provider Name:BARRETT DUNLAP , 2022-08-19 10:00:00 AM, [address] , [place], [address], Insurance Providers Payer Name Payer Address Payer Phone Insured Name Patient Relationship to Insured Coverage Start Date Coverage End Date Subscriber Number Group Number [address] [facility] [id number] Lady Méndez Self - patient is the insured 0 [id number] [facility] MEDICARE Part A [address] [facility] [address] [phone] Lady Méndez Self - patient is the insured [id number]
--- OUTSIDE RECORDS SUMMARY | 2023-03-21 11:31 | XMS REPORT ---
Author Author [facility] ter of [facility] ter of [facility] Address Unknown Phone Unavailable Care Team Providers Care Office Machinery Or Equipment Installer Name Role Phone OMI SIMMONS Unavailable PROBLEMS Type Condition ICD9-CM Code [id number] Code Onset Dates Condition Status SNOMED Code Notes Problem Hypertension I10 Active 67411505 Problem History of cerebrovascular accident with hemiparesis or hemiplegia Z86.73 Active 705456442 10/2015 Problem Anxiety F41.9 Active 32625081 Problem Other chronic pain G89.29 Active 43851273 Problem Dementia with behavioral disturbance, unspecified dementia type F03.91 Active 2755122156809 Problem Hypothyroidism (acquired) E03.9 Active 031111603 Problem Vascular dementia without behavioral disturbance F01.50 Active 949052088 Problem Status post knee replacement Z96.659 Active 415041641573 Problem Falls frequently R29.6 Active 7918038 02 Problem Type 2 diabetes mellitus with diabetic neuropathy, unspecified E11.40 Active 26571096 Problem 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 Active 787108587 Problem BMI 31.0-31.9,adult Z68.31 Active 916156652746937 Problem 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 Active 258332324 Problem Chronic kidney disease, stage 3 (moderate) N18.3 Active 618195663 Problem 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 Code:[address]-38) stomach upset Drug Allergy Active ENCOUNTERS from 1935 to 2020-04-26 Encounter Location Date Provider Diagnosis [facility] [address] [facility] [id number] [place] [address] 12 Apr, 2012 OMI SIMMONS IMMUNIZATIONS Vaccine Route Administration Date Status FLUZONE HIGH DOSE 0.5ML (65 and UP) 2018 IM Intramuscular Jun 15, 2018 Administered PRIVATE SHINGRIX (HERPES ZOS TER-2 DOSE) IM Intramuscular Aug 16, 2018 Administered PRIVATE SHINGRIX (HERPES ZOS TER-2 DOSE) IM Intramuscular November 08, 2018 Administered FLUZONE HIGH DOSE 65 AND UP 2015 IM Intramuscular May 28, 2016 Administered FLUZONE HIGH DOSE (65 AND UP) 2016 IM Intramuscular Oc 2016 Administered influenza (history) Unknown Apr 21, 2019 Administ ered PRIVATE PPSV23 (PNEUMOVAX) IM Intramuscular October 12, [...] Hospitalization History Post Stroke pt [facility] and then [facility] [...] Insured Coverage Start Date Coverage End Date [facility] [address] [facility] [address] hWitney Méndez ma [address] [facility] MEDICARE Part A FI [address] [facility] [address] Whitney Méndez ma
--- OUTSIDE RECORDS SUMMARY | 2023-03-21 11:31 | XMS REPORT ---
Author Author [facility] ter of [facility] ter [facility] Address Unknown Phone Unavailable Care Team Providers Care Film Casting Operator Name Role Phone FAHAD MENDEZ Unavailable PROBLEMS Type Condition ICD9-CM Code WIY02-HL Code Onset Dates Condition Status W/U Status Risk SNOMED Code Notes Problem Other chronic pain G89.29 confirmed 55176621 Problem Hypothyroidis m (acquired) E03.9 confirmed 095353967 Problem Anxiety F41.9 confirmed 49551039 Problem Status post knee replacement Z96.659 confirmed 02354376 9 102 Problem Dementia with behavioral disturbance, unspecified dementia type F03.91 confirmed 491965 011 9103 Problem 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 confirmed 21071895 Problem Vascular dementia without behavioral disturbance F01.50 confirmed 279522851 Problem Type 2 diabetes mellitus with diabetic neuropathy, without long-term current use of insulin E11.40 confirmed 30013608 Problem Critical ischemia of lower extremity I70.229 confirmed 247860225 Peripher al Angiogra phy 06/05/20 20 Problem Type 2 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, without long-term current use of insulin E11.52 confirmed 886035455 Problem Hypertension I10 confirmed 3576120 3 Problem 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.73 confirmed 890454893 10/2015 Problem Left-sided muscle weakness M62.81 confirmed 487480457 Problem 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 confirmed 347316528 Problem 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 08403344 s/p CVA Problem SNHL (sensory-neur al hearing loss), 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 confirmed 988398396 Problem Chronic kidney disease, stage 3 (moderate) N18.3 confirmed 189186268 Problem Cardiomegaly I51.7 confirmed 1275203 Problem Polymyalgia rheumatica M35.3 confirmed 46990505 Problem PVD (peripheral vascular disease) I73.9 confirmed 257247734 Problem Pressure ulcer of other site, stage 3 L89.893 confirmed 019556439 Problem Type 2 diabetes mellitus with other diabetic ophthalmic complication E11.39 confirmed 711559914 Problem Osteoporosis M81.0 confirmed 5727047 6 Problem Chronic renal failure, stage 3 (moderate), unspecified whether stage 3a or 3b CKD N18.30 confirmed Problem Falls frequently R29.6 confirmed 008589628 Problem Chronic kidney disease, stage 3 unspecified N18.30 confirmed 733682321 Problem 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 confirmed 447693776 Problem Type 2 diabetes mellitus with diabetic neuropathy, unspecified E11.40 confirmed 73007581 Problem Vascular dementia with behavior disturbance F01.51 confirmed 88754112 0 261120 Problem Stage 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 confirmed 540462722 Problem Stage 3 chronic kidney disease, unspecified whether stage 3a or 3b CKD N18.30 confirmed 454399970 Problem Hypothyroidis m E03.9 confirmed 35635883 ALLERGIES Allergen (clinical drug ingredient) Drug/Non Drug Allergy documented on EMR Reaction Allergy Type Onset Date Status liraglutide Victoza([facility] Code:[address]-05) stomach upset Drug Allergy Active ENCOUNTERS from 1935 to 2022-11-24 Encounter Location Date Provider Diagnosis [facility] [address] [facility] [id number] [address] Dec, FAHAD MENDEZ IMMUNIZATIONS Vaccine Route Administration Date Status influenza (history) Unknown Jun 15, 2020 Administ ered influenza (history) Unknown Apr 22, 2019 Administ ered PRIVATE SHINGRIX (HERPES ZOS TER-2 DOSE) IM Intramuscular Aug 16, 2018 Administered FLUZONE HIGH DOSE (65 AND UP) 2017 IM Intramuscular Oc 2016 Administered PRIVATE PCV 13 (PREVNAR) IM Intramuscular May 28, 2016 Administered influenza IIV3 (history) Unknown Apr 28, 2013 Adm inistered Influenza, seasonal, injecta ble (split), for 3 yrs and up Unknown Apr 29, 2010 Administered COVID-19 Moderna (history) Unknown September 12, 2020 Administered COVID-19 Moderna (history) Unknown Aug 16, 2020 A dministered PRIVATE PPSV23 (PNEUMOVAX) IM Intramuscular October 12, 2017 Administered FLUZONE HIGH DOSE 65 AND UP 2016 IM Intramuscular May 28, 2016 Administered influenza IIV3 (history) Unknown Apr 12, 2012 Adm inistered influenza IIV3 (history) Unknown Apr 22, 2011 Adm inistered PRIVATE HIGH DOSE FLU 22-23 (FLUZONE HD) AGE 65YRS AND UP IM Intramuscular Apr 17, 2022 Administer ed influenza H1N1 (history) Unknown Jun 02, 2009 Adm inistered FLUZONE HIGH DOSE 0.5ML (65 and UP) 2017 IM Intramuscular Jun 15, 2018 Administered PRIVATE SHINGRIX (HERPES ZOS TER-2 DOSE) IM Intramuscular November 08, 2018 Administered FLUARIX QUAD (3 & UP)-GSK-2014 [...] for 28 Active REASON FOR VISIT Refill Requests MEDICAL (GENERAL) HISTORY Type Description Date Medical [...] [facility] and then [facility] 10/15/15 Hospitalization History Hypotension, Wander ateral leg weakness--Via [facility] 01/15/16 Hospitalization History hypertension/chest pain 03/2017 MENTAL [...] Next Appt Details Provider Name:FAHAD MENDEZ, 2 023-06-13 09:40:00 AM, [address], [place], [address], Insurance Providers Payer Name Payer Address Payer Phone Insured Name Patient Relationship to Insured Coverage Start Date Coverage End Date Subscriber Number Group Number [address] [address] [facility] [phone] Lady Méndez Self - patient is the insured [id number] [facility] MEDICARE Part A [address] [facility] [address] Lady Méndez Self - patient is the insured [id number]
--- OUTSIDE RECORDS SUMMARY | 2023-03-21 11:31 | XMS REPORT ---
Author Author [facility] ter of [facility] ter [facility] Address Unknown Phone Unavailable Care Team Providers Care Real Estate Job Titles Name Role Phone FAHAD MENDEZ Unavailable PROBLEMS Type Condition ICD9-CM Code VQB09-UO Code Onset Dates Condition Status W/U Status Risk SNOMED Code Notes Problem 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.73 confirmed 424795002 10/2015 Problem Other chronic pain G89.29 confirmed 81747348 Problem Hypertension I10 confirmed 8913622 3 Problem Hypothyroidis m (acquired) E03.9 confirmed 935235472 Problem Anxiety F41.9 confirmed 65674751 Problem Status post knee replacement Z96.659 confirmed 93662970 9 102 Problem Dementia with behavioral disturbance, unspecified dementia type F03.91 confirmed 267628 011 9103 Problem Polymyalgia rheumatica M35.3 confirmed 02592039 Problem PVD (peripheral vascular disease) I73.9 confirmed 136735628 Problem Critical ischemia of lower extremity I70.229 confirmed 773371567 Peripher al Angiogra phy 06/05/20 20 Problem Type 2 diabetes mellitus with diabetic neuropathy, unspecified E11.40 confirmed 24325181 Problem Falls frequently R29.6 confirmed 203186261 Problem Left-sided muscle weakness M62.81 confirmed 373924815 Problem 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 confirmed 355301486 Problem 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 21040599 s/p CVA Problem SNHL (sensory-neur al hearing loss), 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 confirmed 298201132 Problem Chronic kidney disease, stage 3 (moderate) N18.3 confirmed 142714378 Problem Cardiomegaly I51.7 confirmed 0638955 Problem Type 2 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, without long-term current use of insulin E11.52 confirmed 071617045 Problem Type 2 diabetes mellitus with diabetic neuropathy, without long-term current use of insulin E11.40 confirmed 77152104 Problem Pressure ulcer of other site, stage 3 L89.893 confirmed 010041246 Problem Stage 3 chronic kidney disease, unspecified whether stage 3a or 3b CKD N18.30 confirmed 635873534 Problem 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.39 confirmed 11026661 Problem Hypothyroidis m E03.9 confirmed 42071802 Problem Vascular dementia without behavioral disturbance F01.50 confirmed 603268828 Problem 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 confirmed 727663232 Problem Type 2 diabetes mellitus with other diabetic ophthalmic complication E11.39 confirmed 140600541 Problem Osteoporosis M81.0 confirmed 4602050 6 Problem Vascular dementia with behavior disturbance F01.51 confirmed 19363255 0 593390 Problem Stage 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 confirmed 170940906 ALLERGIES Allergen (clinical drug ingredient) Drug/Non Drug Allergy documented on EMR Reaction Allergy Type Onset Date Status liraglutide Victoza([facility] Code:[address]-47) stomach upset Drug Allergy Active ENCOUNTERS from 1935 to 2022-09-20 Encounter Location Date Provider Diagnosis [facility] [address] [facility] [id number] [place] [address] Oct, FAHAD MENDEZ IMMUNIZATIONS Vaccine Route Administration [...] WATER for 28 Active REASON FOR VISIT Byshannonresergio MEDICAL (GENERAL) HISTORY Type Description Date Medical [...] [facility] and then [facility] 10/15/15 Hospitalization History Hypotension, Wander ateral leg weakness--Via [facility] 01/15/16 Hospitalization History hypertension/chest pain 03/2017 MENTAL STATUS No Information PLAN OF TREATMENT Medication Medication Name Sig Start Date Stop Date Clari BCise 2 MG/0.85ML INJECT 2MG BUTLER BCUTANEOUSLY [...] MENDEZ, 2 023-04-25 09:40:00 AM, [address] [place], [address], Insurance Providers Payer Name Payer Address Payer Phone Insured Name Patient Relationship to Insured Coverage Start Date Coverage End Date Subscriber Number Group Number [address] [facility] [phone] Lady Méndez Self - patient is the insured 0 [id number] [employer] MEDICARE Part A [address] [facility] [address] Lady Méndez Self - patient is the insured [id number]
--- NOTE | 2023-03-21 12:05 | PM&R Post Admission Assessment ---
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 Currently she is maintained on telemetry to monitor for any requirement for pacemaker. Cardiology consulted and will monitor closely during rehab course. Patient does have dementia and lives alone with help from family and caregivers. Our goal will be to regain function while monitoring cardiac arrhythmia. Home meds have been restarted. Past Pbbafbt-Yuulvt-Eeevmf Hx Past Med/Social Hx: Reviewed Nursing Past Med/Soc Hx, Reviewed and Corrections made Patient Social History Marrital Status: single Employed/Student: retired Alcohol Use: Denies Use Smoking Status: Never a Smoker 2nd Hand Smoke Exposure: Yes Recent Hopitalizations: No Immunizations Up To Date Tetanus Booster (TDap): Unknown Pediatric: Yes Date of Pneumonia Vaccine: Apr 12, 2015 Date of Influenza Vaccine: Jun 12, 2020 Seasonal Allergies Seasonal Allergies: No Past Medical History Surgeries: Cardiac, Coronary Stent, Eye Surgery, 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 Currently Using CPAP: No Currently Using BIPAP: No Cardiac: Coronary Artery Disease, High Cholesterol, Hypertension Neurological: Dementia Sexually Transmitted Disease: No HIV/AIDS: No Female 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 Disorders: Denies 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, Menopausal Genitourinary: Kidney Infection Musculoskeletal: Arthritis Endocrine: Diabetes, Insulin dep, Hypothyroidsim HEENT: Cataract Loss of Vision: Denies Hearing Impairment: Hard of Hearing Cancer: Skin, Cervical Psychosocial: Anxiety, Depression Skin/Integumentary: Pruritis, Recent Skin Changes History of Blood Disorders: No Adverse Reaction to Blood Garibay: No Family History Family history: Alzheimer's disease 03 MOTHER Family history: Hypertension 03 FATHER 03 MOTHER Myocardial infarction 03 FATHER 03 MOTHER Heart Disease, Hypertension PM&R Allergy/Meds/Data Review Allergies Coded Allergies: No Known Drug Allergies (Unverified , 06/05/20) Home Medications Scheduled Alendronate Sodium (Alendronate Sodium), 70 MG PO WEEK, (Reported) Amlodipine Besylate (Amlodipine Besylate), 10 MG PO DAILY, (Reported) Aspirin (Aspirin), 81 MG PO DAILY, (Reported) Atorvastatin Calcium (Atorvastatin Calcium), 20 MG PO DAILY, (Reported) Buspirone HCl (Buspirone HCl), 10 MG PO BID, (Reported) Clopidogrel Bisulfate (Clopidogrel), 75 MG PO DAILY, (Reported) Donepezil HCl (Donepezil HCl), 5 MG PO HS, (Reported) Exenatide Microspheres (Bydureon Bcise), 2 MG INJ WEEK, (Reported) Glipizide (Glipizide), 5 MG PO DAILY, (Reported) Insulin Detemir (Levemir Flexpen), 15 UNIT SQ BID, (Reported) Levetiracetam (Levetiracetam), 500 MG PO BID, (Reported) Levothyroxine Sodium (Levothyroxine Sodium), 75 MCG PO DAILY, (Reported) Losartan Potassium (Losartan Potassium), 50 MG PO DAILY, (Reported) Quetiapine Fumarate (Quetiapine Fumarate), 75 MG PO HS, (Reported) Sertraline HCl (Sertraline HCl), 150 MG PO DAILY, (Reported) Discontinued Medications Insulin Detemir (Levemir Flexpen), 15 UNIT SQ BID Discontinued Reason: Duplicate Order Losartan Potassium (Losartan Potassium), 50 MG PO DAILY Discontinued Reason: Duplicate Order Pen Needle, Diabetic (Advocate Pen Needle), EACH MC BID, (DME) Discontinued Reason: No Longer Taking Current Medications Current Medications Reviewed Review of Systems Constitutional: see HPI, dizziness, malaise, weakness EENTM: no symptoms reported Respiratory: no symptoms reported Cardiovascular: no symptoms reported Gastrointestinal: no symptoms reported Genitourinary: no symptoms reported Musculoskeletal: no symptoms reported Skin: no symptoms reported Psychiatric/Neurological: No Symptoms Reported All Other Systems Reviewed Negative Unless Noted: Yes Physical Exam Physical Exam Vital Signs Capillary Refill : Height, Weight, BMI Height: 5'2.00" Weight: 170lbs. 2.0oz. 77.157545uv; 31.16 BMI Method:Stated General Appearance: No Apparent Distress, WD/WN, Chronically ill Eyes: Bilateral Eye Normal Inspection, Bilateral Eye PERRL HEENT: PERRL/EOMI, Normal ENT Inspection, Pharynx Normal Neck: Full Range of Motion, Normal Inspection, Non Tender, Supple, Carotid Bru it Respiratory: Chest Non Tender, Lungs Clear, Normal Breath Sounds, No Accessory Muscle Use, No Respiratory Distress Cardiovascular: Regular Rate, Rhythm, No Edema, No Gallop, No JVD, No Murmur, Normal Peripheral Pulses, Bradycardia Gastrointestinal: Normal Bowel Sounds, No Organomegaly, No Pulsatile Mass, Non Tender, Soft Back: Normal Inspection, No CVA Tenderness, No Vertebral Tenderness Extremity: Normal Capillary Refill, Normal Inspection, Normal Range of Motion, Non Tender, No Calf Tenderness, No Pedal Edema Neurologic/Psychiatric: Alert, Oriented x3, continuity editor II-XII Norm as Tested, Abnormal Gait, Depressed Affect, Motor Weakness (generalized weakness) Skin: Normal Color, Warm/Dry Lymphatic: No Adenopathy PM&R Medical Assessment & Plan REHAB/MEDICAL ASSESSMENT AND PLAN: REHAB IMPAIRMENT GROUP: Heart failure due to bradycardia and syncope ETIOLOGIC DIAGNOSIS: Heart failure due to bradycardia and syncope The comorbidities that impact the patients function and/or functional outcome by: advanced age, dementia, fall risk, bradycardia, DM, HTN REHAB PLAN: The patient is being admitted to our comprehensive inpatient rehabilitation facility and can tolerate the intensity of service consisting of at least: 180 minutes of therapy a day, 5 out of 7 days a week Rehab treatment will consist of: PT OT will focus on regaining function with the use of AD in order to regain function and increase stamina in order to return to independence The patient/family has a good understanding of our discharge process and will benefit from an interdisciplinary inpatient rehabilitation program. The patient has potential to make improvement and is in need of at least two of the following multidisciplinary therapies including but not limited to physical, occupational, speech, and prosthetics and orthotics. Additionally the patient will need services from respiratory, nutritional services, wound care, psychology, etc. (Customize this to each patient). Given the patients complex condition and risk of further medical complications, rehabilitation services cannot be safely or effectively provided at a lower level of care such as a senior living facility. BARRIERS TO DISCHARGE: Weakness and lives along with dementia ESTIMATED LOS: 7 days DISPOSITION: Home RELEVANT CHANGES SINCE PREADMISSION SCREENING: I have compared the patients medical and functional status at the time of the preadmission screening and there are: no changes PROGNOSIS: Good REHABILITATION GOALS: 1. PT OT will focus on regaining function with the use of AD in order to regain function and increase stamina in order to return to independence All the above goals were reviewed with the patient and he/she is in agreement. By signing this document, I acknowledge that I have personally performed a full physical examination on this patient within 24 hours of admission to this inpatient rehabilitation facility and have determined the patient to be able to tolerate the above course of treatment at an intensive level for a reasonable period of time. I will be completing a detailed individualized Plan of Care for this patient by day #4 of the patients stay based upon the Preadmission Screen, the Post-Admission Evaluation, and the therapy evaluations. Admission Dx/Comorbidities: (1) Severe sinus bradycardia ICD Codes: R00.1 - Bradycardia, unspecified Assessment/Plan Assessment and Plan Assess & Plan/Chief Complaint Assessment: Heart failure due to severe sinus bradycardia causing syncope Dementia DM HTN HLP Fall risk Advanced age Plan: PT OT Home meds Monitor closely MAXERUM KING Mar 21, 2023 12:05
[2023-03-21] MEDS ORDERED: MELATONIN 3 MG TABLET PO PRN ×2 (12:15→13:15)
[2023-03-21] MEDS ORDERED: Sodium Phosphate/Sodium Biphosphate ADULT enema PR PRN (12:15)
[2023-03-21] MEDS ORDERED: ALPRAZolam 0.25 MG TABLET PO PRN (12:15)
[2023-03-21] MEDS ORDERED: CALCIUM CARBONATE 500 MG CHEW TABLET PO PRN ×2 (12:15→13:15)
[2023-03-21] MEDS ORDERED: ACETAMINOPHEN 325 MG TABLET PO PRN ×2 (12:15→13:15)
[2023-03-21] MEDS ORDERED: ONDANSETRON 4 MG ORAL DISSOLVE TABLET PO PRN ×2 (12:15→13:15)
[2023-03-21] MEDS ORDERED: LOPERAMIDE 2 MG CAPSULE PO PRN (12:15)
[2023-03-21] MEDS ORDERED: LACTULOSE SYRUP 10GM/15ML 30ML UDC PO PRN ×2 (12:15→13:15)
[2023-03-21] MEDS ORDERED: DOCUSATE SODIUM 100 MG CAPSULE PO PRN (12:15)
[2023-03-21] MEDS ORDERED: diphenhydrAMINE 25 MG TABLET PO PRN ×2 (12:15→13:15)
[2023-03-21] MEDS ORDERED: BISACODYL 10 MG SUPPOSITORY PR PRN ×2 (12:15→13:15)
[2023-03-21 12:40] VITALS: BP 158/74
[2023-03-21] MEDS ORDERED: ONDANSETRON INJECTION 4 MG/2 ML (SDV) IV PRN (13:15)
[2023-03-21] MEDS ORDERED: ANTACID SUSPENSION 30 ML UDC PO PRN (13:15)
[2023-03-21] MEDS ORDERED: ACETAMINOPHEN 500 MG TABLET PO PRN (13:15)
[2023-03-21] MEDS ORDERED: diphenhydrAMINE INJ 50 MG/ML VIAL IVP PRN (13:15)
[2023-03-21] MEDS ORDERED: MILK OF MAGNESIA 400 MG/5 ML 30 ML UDC PO PRN (13:15)
[2023-03-21] MEDS ORDERED: RT-Ipratropium/Albuterol NEB 3 ML VIAL INH PRN (13:15)
[2023-03-21] MEDS ORDERED: NON-FORMULARY MEDICATION 1 EA EA (Alendronate Sodium 70 MG) PO SCH (16:45)
[2023-03-21] MEDS ORDERED: NON-FORMULARY MEDICATION 1 EA EA (Exenatide Microspheres (Bydureon Bcise) 2 MG) INJ SCH (16:45)
[2023-03-21] MEDS: guaiFENesin/CODEINE 10ML UDC PO PRN (17:01)
[2023-03-21] MEDS: inSUlin ASPART 1 UNIT/0.01 ML (PER UNIT) SC SCH ×2 (17:02→21:55)
[2023-03-21 20:11] VITALS: BP 145/71
[2023-03-21] MEDS ORDERED: DOCUSATE SODIUM 100 MG CAPSULE PO SCH (21:00)
[2023-03-21] MEDS ORDERED: QUETIAPINE FUMARATE 75 MG PO SCH (21:00)
[2023-03-21] MEDS ORDERED: SENNA W/DOCUSATE TABLET PO SCH (21:00)
[2023-03-21] MEDS ORDERED: INSULIN DETEMIR 15 UNIT SQ SCH (21:00)
[2023-03-21] MEDS: DONEPEZIL 5 MG TABLET PO SCH (21:53)
[2023-03-21] MEDS: busPIRone 10 MG TABLET PO SCH (21:53)
[2023-03-21] MEDS: QUEtiapine IMMEDIATE RELEASE 25 MG TABLET PO SCH (21:53)
[2023-03-21] MEDS: LevETIRAcetam 500 MG TABLET PO SCH (21:53)
[2023-03-21] MEDS: SENNOSIDES 8.6 MG TABLET PO SCH (21:55)
[2023-03-21] MEDS: inSUlin DETERMIR 1 UNIT/0.01 ML (CHARGE PER UNIT) SQ SCH (21:55)
[2023-03-21] MEDS: DOCUSATE SODIUM 100 MG CAPSULE PO SCH (21:55)
--- NOTE | 2023-03-22 06:04 | PM&R Progress Note ---
Subjective HPI/CC On Admission Date Seen by Provider: Mar 22, 2023 Time Seen by Provider: 12:00 Subjective/Events-last exam 03/22/2023: Patient doing well Asking to go home already Moving around fairly well but slow Fall risk prevention Balance is an issue Labs reviewed Review of Systems General: Fatigue Neurological: Weakness, Incoordination, Confusion Objective Exam Vital Signs Vital Signs Date Time Temp Pulse Resp B/P (MAP) Pulse Ox O2 Delivery O2 Flow Rate FiO2 03/22/23 12:35 62 03/22/23 09:11 93 Room Air 0.00 03/22/23 08:09 36.8 20 151/68 (95) Capillary Refill : General Appearance: No Apparent Distress, WD/WN, Chronically ill HEENT: PERRL/EOMI, Normal ENT Inspection, Pharynx Normal Neck: Full Range of Motion, Normal Inspection, Non Tender, Supple, Carotid Bruit Respiratory: Chest Non Tender, Lungs Clear, Normal Breath Sounds, No Accessory Muscle Use, No Respiratory Distress Cardiovascular: Regular Rate, Rhythm, No Edema, No Gallop, No JVD, No Murmur, Normal Peripheral Pulses, Bradycardia Gastrointestinal: Normal Bowel Sounds, No Organomegaly, No Pulsatile Mass, Non Tender, Soft Back: Normal Inspection, No CVA Tenderness, No Vertebral Tenderness Extremity: Normal Capillary Refill, Normal Inspection, Normal Range of Motion, Non Tender, No Calf Tenderness, No Pedal Edema Neurologic/Psychiatric: Alert, Oriented x3, cod clerk II-XII Norm as Tested, Abnormal Gait, Depressed Affect, Motor Weakness (generalized weakness) Skin: Normal Color, Warm/Dry Lymphatic: No Adenopathy Results/Procedures Lab Laboratory Tests 03/22/23 07:05 Patient resulted labs reviewed. FIM Transfers Therapy Code Descriptions/Definitions Functional Grady Measure: 0=Not Assessed/NA 4=Minimal Assistance 1=Total Assistance 5=Supervision or Setup 2=Maximal Assistance 6=Modified Grady 3=Moderate Assistance 7=Complete IndependenceSCALE: Activities may be completed with or without assistive devices. 6-Tfnerpwmym-flzsept completes the activity by him/herself with no assistance from a helper. 5-Set-up or Clean-up Assistance-helper sets up or cleans up; patient completes activity. [place] assists only prior to or following the activity. 4-Supervision or Touching Assistance-helper provides verbal cues and/or touching/steadying and/or contact guard assistance as patient completes activity. Assistance may be provided throughout the activity or intermittently. 3-Partial/Moderate Assistance-helper does LESS THAN HALF the effort. Good Thunder lifts, holds or supports trunk or limbs, but provides less than half the effort. 2-Substantial/Maximal Assistance-helper does MORE THAN HALF the effort. Good [place] lifts or holds trunk or limbs and provides more than half the effort. 4-Iyrohepro-bfpycf does ALL the effort. Patient does none of the effort to co mplete the activity. Or, the assistance of 2 or more helpers is required for the patient to complete the activity. If activity was not attempted, code reason: 7-Patient Refused. 9-Not Applicable-not attempted and the patient did not perform the activity before the current illness, exacerbation or injury. 10-Not Attempted due to Environmental Limitations-(lack of equipment, weather restraints, etc.). 88-Not Attempted due to Medical Conditions or Safety Concerns. Assessment/Plan Assessment and Plan Assess & Plan/Chief Complaint Assessment: Heart failure due to severe sinus bradycardia causing syncope Dementia DM HTN HLP Fall risk Advanced age Plan: PT OT Home meds Monitor closely 03/22/2023: Supportive care Therapy tomorrow (1) Severe sinus bradycardia ERUM SANTANA DO Mar 22, 2023 06:04
[2023-03-22] MEDS: LEVOTHYROXINE 75 MCG TABLET PO SCH (06:32)
[2023-03-22] MEDS: glipiZIDE 5 MG TABLET PO SCH (06:32)
[2023-03-22] MEDS: ENOXAPARIN 40 MG/0.4 ML SYRINGE SC SCH (06:32)
[2023-03-22] MEDS: inSUlin ASPART 1 UNIT/0.01 ML (PER UNIT) SC SCH ×4 (06:32→21:03)
[2023-03-22 07:22] LABS: BASOPHILS % (AUTO) 1 % (0-10); EOSINOPHILS # (AUTO) 0.2 10^3/uL (0.0-0.3); EOSINOPHILS % (AUTO) 2 % (0-10); HEMATOCRIT 38 % (35-52); LYMPHOCYTES # (AUTO) 1.6 10^3/uL (1.0-4.0); LYMPHOCYTES % (AUTO) 20 % (12-44); MEAN CORPUSCULAR HEMOGLOBIN 28 pg (25-34); MEAN CORPUSCULAR HGB CONC 32 g/dL (32-36); MEAN CORPUSCULAR VOLUME 89 fL (80-99); MEAN PLATELET VOLUME 9.5 fL (9.0-12.2); MONOCYTES # (AUTO) 0.5 10^3/uL (0.0-1.0); MONOCYTES % (AUTO) 6 % (0-12); NEUTROPHILS # (AUTO) 5.9 10^3/uL (1.8-7.8); NEUTROPHILS % (AUTO) 71 % (42-75); PLATELET COUNT 215 10^3/uL (130-400); WHITE BLOOD COUNT 8.3 10^3/uL (4.3-11.0)
[2023-03-22 07:39] LABS: ALBUMIN 3.3 GM/DL (3.2-4.5); BILIRUBIN,TOTAL 0.4 MG/DL (0.1-1.0); CALCIUM 8.6 MG/DL (8.5-10.1); CREATININE SERUM 0.94 MG/DL (0.60-1.30); POTASSIUM 3.6 MMOL/L (3.6-5.0); TOTAL PROTEIN 6.2 GM/DL (6.4-8.2)
[2023-03-22 08:09] VITALS: BP 151/68
[2023-03-22] MEDS: SENNOSIDES 8.6 MG TABLET PO SCH ×2 (08:14→21:04)
[2023-03-22] MEDS: ASPIRIN 81 MG CHEWABLE TABLET PO SCH (08:15)
[2023-03-22] MEDS: CLOPIDOGREL 75 MG TABLET PO SCH (08:15)
[2023-03-22] MEDS: inSUlin DETERMIR 1 UNIT/0.01 ML (CHARGE PER UNIT) SQ SCH ×2 (08:15→21:04)
[2023-03-22] MEDS: LOSARTAN 50 MG TABLET PO SCH (08:15)
[2023-03-22] MEDS: SERTRALINE 100 MG TABLET PO SCH (08:16)
[2023-03-22] MEDS: amLODIPine 5 MG TABLET PO SCH (08:20)
[2023-03-22] MEDS ORDERED: ASPIRIN enteric coated 81MG TABLET PO SCH (09:00)
[2023-03-22] MEDS ORDERED: amLODIPine 10 MG TABLET PO SCH (09:00)
[2023-03-22] MEDS ORDERED: LEVOTHYROXINE 75 MCG TABLET PO SCH (09:00)
[2023-03-22] MEDS ORDERED: CLOPIDOGREL 75 MG TABLET PO SCH (09:00)
[2023-03-22] MEDS: guaiFENesin/CODEINE 10ML UDC PO PRN (09:32)
[2023-03-22] MEDS: busPIRone 10 MG TABLET PO SCH ×2 (09:35→21:04)
[2023-03-22] MEDS: LevETIRAcetam 500 MG TABLET PO SCH ×2 (09:35→21:04)
[2023-03-22] MEDS: DOCUSATE SODIUM 100 MG CAPSULE PO SCH ×2 (13:22→21:05)
[2023-03-22 20:05] VITALS: BP 147/71
[2023-03-22] MEDS: DONEPEZIL 5 MG TABLET PO SCH (21:04)
[2023-03-22] MEDS: QUEtiapine IMMEDIATE RELEASE 25 MG TABLET PO SCH (21:04)
--- NOTE | 2023-03-23 05:01 | PM&R Progress Note ---
Subjective HPI/CC On Admission Date Seen by Provider: Mar 23, 2023 Time Seen by Provider: 09:00 Subjective/Events-last exam 03/23/2023: Doing better Working with therapy No falls No pain reported 03/22/2023: Patient doing well Asking to go home already Moving around fairly well but slow Fall risk prevention Balance is an issue Labs reviewed Review of Systems General: Fatigue, Malaise Objective Exam Vital Signs Vital Signs Date Time Temp Pulse Resp B/P (MAP) Pulse Ox O2 Delivery O2 Flow Rate FiO2 03/23/23 20:00 36.4 64 20 130/63 (85) 97 Room Air 03/22/23 09:11 0.00 Capillary Refill : General Appearance: No Apparent Distress, WD/WN, Chronically ill HEENT: PERRL/EOMI, Normal ENT Inspection, Pharynx Normal Neck: Full Range of Motion, Normal Inspection, Non Tender, Supple, Carotid Bruit Respiratory: Chest Non Tender, Lungs Clear, Normal Breath Sounds, No Accessory Muscle Use, No Respiratory Distress Cardiovascular: Regular Rate, Rhythm, No Edema, No Gallop, No JVD, No Murmur, Normal Peripheral Pulses, Bradycardia Gastrointestinal: Normal Bowel Sounds, No Organomegaly, No Pulsatile Mass, Non Tender, Soft Back: Normal Inspection, No CVA Tenderness, No Vertebral Tenderness Extremity: Normal Capillary Refill, Normal Inspection, Normal Range of Motion, Non Tender, No Calf Tenderness, No Pedal Edema Neurologic/Psychiatric: Alert, Oriented x3, lard maker II-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 FIM Transfers Therapy Code Descriptions/Definitions Functional [place] Measure: 0=Not Assessed/NA 4=Minimal Assistance 1=Total Assistance 5=Supervision or Setup 2=Maximal Assistance 6=Modified [place] 3=Moderate Assistance 7=Complete IndependenceSCALE: Activities may be completed with or without assistive devices. 4-Uqaicbzcha-yshznzt completes the activity by him/herself with no assistance from a helper. 5-Set-up or Clean-up Assistance-helper sets up or cleans up; patient completes activity. [place] assists only prior to or following the activity. 4-Supervision or Touching Assistance-helper provides verbal cues and/or touching/steadying and/or contact guard assistance as patient completes activity. Assistance may be provided throughout the activity or intermittently. 3-Partial/Moderate Assistance-helper does LESS THAN HALF the effort. [place] lifts, holds or supports trunk or limbs, but provides less than half the effort. 2-Substantial/Maximal Assistance-helper does MORE THAN HALF the effort. [place] lifts or holds trunk or limbs and provides more than half the effort. 9-Iryclqmfm-ezysme does ALL the effort. Patient does none of the effort to complete the activity. Or, the assistance of 2 or more helpers is required for the patient to complete the activity. If activity was not attempted, code reason: 7-Patient Refused. 9-Not Applicable-not attempted and the patient did not perform the activity before the current illness, exacerbation or injury. 10-Not Attempted due to Environmental Limitations-(lack of equipment, weather restraints, etc.). 88-Not Attempted due to Medical Conditions or Safety Concerns. Assessment/Plan Assessment and Plan Assess & Plan/Chief Complaint Assessment: Heart failure due to severe sinus bradycardia causing syncope Dementia DM HTN HLP Fall risk Advanced age Plan: PT OT Home meds Monitor closely 03/22/2023: Supportive care Therapy tomorrow 03/23/2023: Continue aggressive rehab Monitor for falls (1) Severe sinus bradycardia ERUM SANTANA DO Mar 23, 2023 05:00
[2023-03-23] MEDS: inSUlin ASPART 1 UNIT/0.01 ML (PER UNIT) SC SCH ×4 (06:10→20:33)
[2023-03-23] MEDS: LEVOTHYROXINE 75 MCG TABLET PO SCH (06:10)
[2023-03-23] MEDS: ENOXAPARIN 40 MG/0.4 ML SYRINGE SC SCH (06:10)
[2023-03-23] MEDS: glipiZIDE 5 MG TABLET PO SCH (07:15)
[2023-03-23 07:50] VITALS: BP 109/58
--- NOTE | 2023-03-23 09:24 | Physical Therapy Evaluation ---
PT Evaluation-General Medical Diagnosis Admission Date Mar 21, 2023 at 10:30 Medical Diagnosis: Symptomatic bradycardia Onset Date: Mar 19, 2023 Therapy Diagnosis Therapy Diagnosis: Weakness, Decreased functional mobility Height/Weight Height (Feet): 5 Height (Inches): 2.00 Weight (Pounds): 170 Weight (Ounces): 2.0 Precautions Precautions/Isolations: Fall Prevention, Standard Precautions Weight Bear Status Right Lower Extremity: Right Full Weight Bearing Left Lower Extremity: Left Full Weight Bearing Referral Physician: Loly Reason for Referral: Evaluation/Treatment Medical History Pertinent Medical History: Arthritis, CAD, CVA, DM, Heart Failure, HTN Additional Medical History Arthritis, CAD, CVA, DM, Heart failure, HTN, High cholesterol, Anxiety, Depression, Dementia, L TKA Current History ED via EMS secondary to weakness, slurred speech, and dizziness on 03/19/23; Admitted to ARU on 03/21/23 Reviewed History: Yes Social History Home: Multilevel Current Living Status: Alone Entry Into Home: Ramp PT Steps Into Home: 0 PT Steps Inside Home: 8 (Pt does not go up to 2nd floor ) Other Obstacles: Dog Pt lives by herself in a multi-level home with a ramp to enter/exit. Pt does not have to use the 2nd floor, and reports she does not go up there anymore. Walk-in shower with GBs, SC, and standard toilet. Prior Prior Level of Function SCALE: Activities may be completed with or without assistive devices. 8-Rhduivvapg-rjvorig completes the activity by him/herself with no assistance from a helper. 5-Set-up or Clean-up Assistance-helper sets up or cleans up; patient completes activity. [place] assists only prior to or following the activity. 4-Supervision or Touching Assistance-helper provides verbal cues and/or touching/steadying and/or contact guard assistance as patient completes activity. Assistance may be provided throughout the activity or intermittently. 3-Partial/Moderate Assistance-helper does LESS THAN HALF the effort. [place] lifts, holds or supports trunk or limbs, but provides less than half the effort. 2-Substantial/Maximal Assistance-helper does MORE THAN HALF the effort. [place] lifts or holds trunk or limbs and provides more than half the effort. 4-Qcxzaztsn-kncnro does ALL the effort. Patient does none of the effort to complete the activity. Or, the assistance of 2 or more helpers is required for the patient to complete the activity. If activity was not attempted, code reason: 7-Patient Refused. 9-Not Applicable-not attempted and the patient did not perform the activity before the current illness, exacerbation or injury. 10-Not Attempted due to Environmental Limitations-(lack of equipment, weather restraints, etc.). 88-Not Attempted due to Medical Conditions or Safety Concerns. Bed Mobility: 6 Transfers (B,C,W/C): 6 Gait: 6 Stairs: 3 Wheelchair Mobility: 6 Indoor Mobility (Ambulation): Independent Stairs: Needed Some Help Prior Devices Use: Manual wheelchair, Mechanical lift (lift-chair ), Walker At [facility], pt was Mod I with indoor mobility with the FWW and manual w/c. Pt has a FWW, 4WW, and manual w/c. Pt does have a HH aide 3x/week and her children check on her often. PT Evaluation-Current Subjective Pt is agreeable to PT. Pt denies any pain. Pain Numeric Pain Scale: 0-No Pain Location: No Pain Reported Section J - Health Conditions 1. Rarely or not at all 2. Occasionally 3. Frequently 4. Almost constantly 8. Unable to answer Pain Effect on Sleep: 1 Pain Interference with Therapy: 1 Pain Interference w/Day-to-Day: 1 Pt/Family Goals Safely return home Objective Patient Orientation: Person, Situation ROM/Strength ROM Upper Extremities See OT eval ROM Lower Extremities WFL Strength Upper Extremities See OT eval Strength Lower Extremities L LE MMT = 3+/5 R LE MMT = 4-/5 Integumentary/Posture Integumentary See nurses note Bowel Incontinence: No Bladder Incontinence: No Sensory Vision: Functional (Reading glasses ) Hearing: Impaired (does not wear her hearing aides ) Hand Dominance: Left Sensation Right Upper Extremit: Intact Sensation Left Upper Extremity: Intact Sensation Right Lower Extremit: Intact Sensation Left Lower Extremity: Intact Transfers Roll Left & Right (QC): 4 (SBA ) Sit to Lying (QC): 4 (SBA ) Lying to Sitting/Side of Bed(Q: 4 (SBA ) Sit to Stand (QC): 3 (Min A ) Chair/Cgm-ac-Rdomx Xfer(QC): 3 (Min A ) Toilet Transfer (QC): 3 (Min A ) Car Transfer (QC): 3 (Min A ) Gait Does the Patient Walk?: Yes Mode of Locomotion: Both Anticipated Mode of Locomotion: Both Walk 10 feet (QC): 4 (CGA ) Walk 50 ft with 2 Turns(QC): 4 (CGA ) Walk 150 ft (QC): 9 (Pt did not walk longer distances at PLOF. ) Walking 10ft/uneven surface-QC: 3 (Min A for safety ) Distance: 55ft Gait Assistive Device: FWW Wheelchair Training Does the Pt Use a Wheelchair?: Yes Distance: 150ft Wheel 50 ft with 2 turns (QC): 4 (SBA ) Wheel 150 ft (QC): 4 (SBA ) Type of Wheelchair: Manual Stairs #of Steps: 4 1 Step (curb) (QC): 3 (Min A ) 4 Steps (QC): 3 (Min A ) 12 Steps (QC): 9 (Pt did not complete 12 steps at PLOF ) Walking Assistive Device: Walker Balance Sitting Static: Good Sitting Dynamic: Good Standing Static: Fair Standing Dynamic: Fair Picking up an Object (QC): 4 (CGA with radio talk show host ) Special Test Comments KU standing balance scale = 2+/5 (goal = 3+/5) Treatment PT eval completed from [id number]. PT/OT co-tx from [id number] due to skill of 2 clinicians required which a occupational rehabilitation aide could not perform in order to coordinate UE/LEs, decrease fall risk, and due to pt's limitations in strength, mobility and transfers, and activity tolerance. PT focused on LE Placement, gross overall movement, transfers, walking, balance, and w/c mobility. OT focused on UE placement, cues for sequencing and safety and ADLs. Individual treatment from [id number]. Pt performed functional mobility and transfers, including mobility with FWW, w/c mobility, steps, uneven surface, picking object up off of floor. Pt then stood at white board in therapy gym using FWW, finding edge pieces of magnetic puzzle. Pt able to stand 4 times, ~1 min 45 seconds each stand, she required Mod v/c to locate all edge pieces and place in center of the board, reaching in all planes. Pt encouraged to reach using RUE, but due to pt being left handed, she only used LUE for task. Pt required skilled VCs for correct technique and safety with all sit to/from transfers. Pt completed bed mobility with SBA. Pt completed functional transfers with CGA/Min A. Pt ambulated up to 55ft with the FWW and CGA and w/c follow. Pt completed 4 steps with B HR and Min A. Pt completed w/c mobility of 150ft with SBA. At end of treatment session, pt was sitting up in the recliner with call light in reach and all needs met. Assessment/Needs Pt tolerated PT well with good effort Rehab Potential: Good Post Rehab Potential-Barriers: Weakness Equipment Needs N/A PT Assisted Goals [employer] Manager Goals PT Assisted Goals Time Frame: Apr 04, 2023 Roll Left to Right (QC): 6 (Pt will be Mod I with bed mobility and functional transfers. ) Sit to Lying (QC): 6 (Pt will be Mod I with bed mobility and functional transfers. ) Lying-Sitting on Side/Bed(QC): 6 (Pt will be Mod I with bed mobility and functional transfers. ) Sit to Stand (QC): 6 (Pt will be Mod I with bed mobility and functional transfers. ) Chair/Xxp-ag-Ofywu Xfer(QC): 6 (Pt will be Mod I with bed mobility and functional transfers. ) Toilet/Commode Transfer (QC): 6 (Pt will be Mod I with bed mobility and functional transfers. ) Car Transfer (QC): 6 (Pt will be Mod I with bed mobility and functional [place] sfers. ) Does the Patient Walk: Yes Walk 10 feet (QC): 4 (Pt will be SBA for walking with the FWW, up to 50ft. ) Walk 10ft-Uneven Surface(QC): 4 (Pt will be SBA for walking with the FWW, up to 50ft. ) Walk 50ft with 2 Turns (QC): 4 (Pt will be SBA for walking with the FWW, up to 50ft. ) Walk 150 ft (QC): 9 (Pt did not walk longer distances at [facility]. ) Does the Pt use WC or Scooter?: Yes Wheel 50 feet with 2 turns (QC: 6 (Mod I with w/c mobility ) Type: Manual Wheel 150 feet: 6 (Mod I with w/c mobility ) Type: Manual 1 Step (curb) (QC): 4 (SBA for stairs ) 4 Steps (QC): 4 (SBA for stairs ) 12 Steps (QC): 9 (Pt did not complete 12 steps at PLOF ) Picking up an Object (QC): 5 (set-up with radio talk show host ) KU standing balance goal = 3+/5 PT Plan Problem List Problem List: Activity Tolerance, Functional Strength, Safety, Balance, Gait, Transfer, Bed Mobility, ROM Treatment/Plan Treatment Plan: Continue Plan of Care Treatment Plan: Bed Mobility, Education, Functional Activity Nilsa, Functional Strength, Group Therapy, Gait, Safety, Therapeutic Exercise, Transfers Treatment Duration: Apr 04, 2023 Frequency: At least 5 of 7 days/Wk (IRF) Estimated Hrs Per Day: 1.5 hours per day Patient and/or Family Agrees t: Yes Safety Risks/Education Patient Education: Gait Training, Transfer Techniques, Steps, Correct Positioning, W/C Management, Safety Issues Teaching Recipient: Patient Teaching Methods: Demonstration, Discussion Response to Teaching: Verbalize Understanding, Return Demonstration, Reinforcement Needed Discharge Recommendations Therapy Discharge Recommendati: Home & Family, Post Acute PT Equpiment Recommendations-D/C: None Discharge Status/Home Program Cont per POC Barriers to Progress Weakness, safety awareness/carry over Target Placement Home with family assistance Time Time In: 815 Time Out: 945 DATE: Mar 23, 2023 Total Billed Treatment Time: 90 Total Billed Treatment 90 min total from ; co-tx for 45 min from 1 visit EVM GT x 2 FA x 3 RAMESH GAVIN PT Mar 23, 2023 09:24
--- NOTE | 2023-03-23 09:28 | Occupational Therapy Eval ---
OT Evaluation-General/PLF Medical Diagnosis Admission Date Mar 21, 2023 at 10:30 Medical Diagnosis: symptomatic bradycardia Onset Date: Mar 18, 2023 Therapy Diagnosis Therapy Diagnosis: decreased ADL status, weakness Height/Weight Height (Feet): 5 Height (Inches): 2.00 Weight (Pounds): 170 Weight (Ounces): 2.0 Precautions Precautions/Isolations: Fall Prevention, Standard Precautions Referral Physician: Rambo Referral Reason: Evaluation/Treatment Medical History Pertinent Medical History: Arthritis, CAD, CVA, DM, Heart Failure, HTN Additional Medical History uncontrolled DM, dementia, CAD with stents, hypotyroidism, seizures, HTN, HLD, obesity, cervical CA s/p hysterectomy, melanoma s/p removal on R leg, CVA vs seizure, LTKA Current History 03/18/23 ED due to episode of LOC followed by change in mental status. In ED, blood glucose level 263. Pt admitted to ARU 03/21/23. Reviewed History: Yes Social History Home: [facility] Current Living Status: Alone Entry Into Home: Ramp ADL-Prior Level of Function SCALE: Activities may be completed with or without assistive devices. 4-Lonbzwejiw-faifjrp completes the activity by him/herself with no assistance from a helper. 5-Set-up or Clean-up Assistance-helper sets up or cleans up; patient completes activity. [place] assists only prior to or following the activity. 4-Supervision or Touching Assistance-helper provides verbal cues and/or to uching/steadying and/or contact guard assistance as patient completes activity. Assistance may be provided throughout the activity or intermittently. 3-Partial/Moderate Assistance-helper does LESS THAN HALF the effort. [place] lifts, holds or supports trunk or limbs, but provides less than half the effort. 2-Substantial/Maximal Assistance-helper does MORE THAN HALF the effort. [place] lifts or holds trunk or limbs and provides more than half the effort. 9-Tksabtsea-ggwjfh does ALL the effort. Patient does none of the effort to complete the activity. Or, the assistance of 2 or more helpers is required for the patient to complete the activity. If activity was not attempted, code reason: 7-Patient Refused. 9-Not Applicable-not attempted and the patient did not perform the activity before the current illness, exacerbation or injury. 10-Not Attempted due to Environmental Limitations-(lack of equipment, weather restraints, etc.). 88-Not Attempted due to Medical Conditions or Safety Concerns. ADL PLOF Comments Pt reports she lives alone in a 2 story house. She used to stay upstairs, but has not been upstairs for a while. Pt has a bedroom and bathroom on main level. She has a walk in shower with GBs and SC. Standard toilet with GBs. She needed some assist at PLOF, having HH aide 3 times a week and her children checks in frequently. Pt reports being able to dress herself, toilet herself, shower with supervision, and complete simple meals. HH aides assist with cleaning house, pt states she still does her own laundry. Accuracy of pt's information unknown due to hx of dementia. Per chart review from acute floor, pt has difficulty cleansing self after a BM, requiring assistance. She walks short distances using a walker or furniture walking, but per family is mainly in w/c. Self Care: Needed Some Help Functional Cognition: Needed Some Help DME/Equipment Comments FWW, manual w/c, SC, ramp, GBS. OT Current Status Subjective Pt agreeable to OT Tx. Mental Status/Objective Patient Orientation: Person Attachments: Telemetry Current Glasses/Contacts: Yes Hearing Aids: Yes (doesn't wear) Dentures/Partials: No Hand Dominance: Left Upper Extremity ROM BUE Shoulder flexion to approx 100 degrees, WFL elbow/wrist/hand Upper Extremity Coordination WFL Upper Extremity Sensation WFL per pt report Upper Extremity Strength grossly 3/5 BUEs. ADL-Treatment Eating (QC): 5 (set up assist ) Oral Hygiene (QC): 5 (set up seated) Shower/Bathe Self (QC): 3 (Min A balance in standing and min A with posterior hygiene) Upper Body Dressing (QC): 5 Lower Body Dressing (QC): 3 (Min A balance during pant hike.) On/Off Footwear (QC): 5 (set up to doff/don gripper socks and shoes.) Toileting Hygiene (QC): 3 (Min A balance in standing and min A with posterior hygiene.) Other Treatments [id number] OT evaluation/tx. Pt provided information about PLOF and home set up to her ability. Pt participated in ADL tx, including eating, sponge bath, dressing, grooming. In stand, pt required min A balance while completing clothing management due to being slightly retropulsive. [id number] OT/PT cotreat due to skill of 2 clinicians required which a rehab physician could not perform in order to coordinate UE/LEs, decrease fall risk, and due to pt's limitations in strength, mobility and transfers, and activity tolerance. OT focused on UE placement, cues for sequencing and safety and ADLs, PT focused on LE Placement, gross overall movement, transfers and mobility. Pt performed functional mobility and transfers, including mobility with FWW, w/c mobility, steps, uneven surface, picking object up off of floor. Pt then stood at white board in therapy gym using FWW, finding edge pieces of magnetic puzzle. Pt able to stand 4 times, ~1 min 45 seconds each stand, she required moderate VCs to locate all edge pieces and place in center of the board, reaching in all planes. Pt encouraged to reach using RUE, but due to pt being left handed, she only used LUE for task. Post tx, pt in w/c with PT, all needs met. Pt required skilled VCs for correct technique and safety with all sit to/from transfers. SBA rolling, sit to/from supine, min A-CGA sit to stand, min A toilet transfer, CGA ambulation 55' with FWW, Min A with uneven surface using FWW, SBA w/c mobility 150' Education OT Patient Education: Correct positioning, Energy conservation, Modified ADL techniques, Progress toward Goal/Update tx plan, Purpose of tx/functional activities, Rehab process Teaching Recipient: Patient Teaching Methods: Discussion Response to Teaching: Verbalize Understanding BIMS CAM BIMS Expression of Ideas and Wants: Without Difficulty Understanding Verbal Content: Usually Understands (ALGAACIQ, requiring repeated instructions at times) IRF KEV BIMS: IRF KEV BIMS Response (Comments) Value Repitition of Three Words Three 3 Recalls Socks No, Could Not Recall 0 Recalls Blue Yes, No Cue Required 2 Recalls Bed No, Could Not Recall 0 Year Missed by 5 Yrs/No Answer (2002) 0 Month Missed by 1 Mo/No Answer (July) 0 Day Correct 1 Total 6 Should Staff Asses. Mental St.: No CAM Mental Status Change/Baseline: 0 Inattention: 0 Disorganized thinkin Altered level of consciousness: 0 OT Intermediate Goals Inspector Aide Goals Time Frame: Apr 10, 2023 Eating (QC): 6 Oral Hygiene (QC): 6 Toileting Hygiene (QC): 6 Shower/Bathe Self (QC): 4 Upper Body Dressing (QC): 6 Lower Body Dressing (QC): 6 On/Off Footwear (QC): 6 Additional Goals: 1-Demonstrate ADL Tasks, 2-Verbalize Understanding, 3-ImproveStrength/Nilsa 1=Demonstrate adherence to instructed precautions during ADL tasks. 2=Patient will verbalize/demonstrate understanding of assistive devices/modifications for ADL. 3=Patient will improve strength/tolerance for activity to enable patient to perform ADL's. OT Education/Plan Problem List/Assessment Assessment: Decreased Activ Tolerance, Decreased Safety Aware, Decreased UE Strength, Impaired Funct Balance, Impaired I ADL's, Impaired Self-Care Skills Discharge Recommendations Plan/Recommendations: Continue POC Treatment Plan/Plan of Care Patient would benefit from OT for education, treatment and training to promote independence in ADL's, mobility, safety and/or upper extremity function for ADL's. Plan of Care: ADL Retraining, Caregiver Training, Functional Mobility, Group Exercise/Act as Ind, UE Funct Exercise/Act Treatment Duration: Apr 10, 2023 Frequency: At least 5 of 7 days/Wk (IRF) Estimated Hrs Per Day: Other (75 mins per day) Agreement: Yes Rehab Potential: Good Time Start Time: 07:30 ( OT evaluation) Stop Time: 09:15 ( Cotreat) DATE: Mar 23, 2023 Total Time Billed (hr/min): 90 Billed Treatment Time 45' OT eval/tx, 45' cotreat 1, EVM (15'), ADL 2 (30'), FA 3 (45') COLTON PIERRE OT Mar 23, 2023 09:28
[2023-03-23] MEDS: ASPIRIN 81 MG CHEWABLE TABLET PO SCH (09:56)
[2023-03-23] MEDS: CLOPIDOGREL 75 MG TABLET PO SCH (09:57)
[2023-03-23] MEDS: LevETIRAcetam 500 MG TABLET PO SCH ×2 (09:57→20:27)
[2023-03-23] MEDS: busPIRone 10 MG TABLET PO SCH ×2 (09:57→20:27)
[2023-03-23] MEDS: SERTRALINE 100 MG TABLET PO SCH (09:59)
[2023-03-23] MEDS: LOSARTAN 50 MG TABLET PO SCH (10:00)
[2023-03-23] MEDS: amLODIPine 5 MG TABLET PO SCH (10:00)
[2023-03-23] MEDS: DOCUSATE SODIUM 100 MG CAPSULE PO SCH ×2 (10:00→19:54)
[2023-03-23] MEDS: SENNOSIDES 8.6 MG TABLET PO SCH ×2 (10:01→19:55)
[2023-03-23] MEDS: inSUlin DETERMIR 1 UNIT/0.01 ML (CHARGE PER UNIT) SQ SCH ×2 (10:06→20:27)
--- NOTE | 2023-03-23 16:22 | ST Cognitive Linguistic Eval ---
Speech Evaluation-General Medical Diagnosis Symptomatic bradycardia Onset Date: Mar 19, 2023 Therapy Diagnosis Therapy Diagnosis: Cognitive linguistic deficit Precautions Precautions/Isolations: Fall Prevention, Standard Precautions Referral Referring Physician: Dr. Ricks Reason for Referral: Evaluation/Treatment Medical History Pertinent Medical History: Arthritis, CAD, CVA, DM, Heart Failure, HTN uncontrolled DM, dementia, CAD with stents, hypotyroidism, seizures, HTN, HLD, cervical CA s/p hysterectomy, melanoma s/p removal on R leg, CVA vs seizure, LTKA Current History s/p near syncopal episode secondary to bradycardia Reviewed History: Yes Social History Current Living Status: Alone Speech PLF-Current Status Prior Level of Function The pt lives alone with support from her family. She does not drive, has assistance for general housekeeping. Uses the microwave, but reports that she does not use the stove. Subjective The pt was pleasant and cooperative for evaluation session. She is hard of hearing, does not have hearing aids at facility. Language Eval: Auditory Comprehends Simple Yes/No Ques: Functional Follows 1-Step Commands: Functional Follows General Conversations: Mild (due to [place] status) Language Eval: Verbal Language Completes Spontaneous Greeting: Functional Requests Basic Needs: Functional States Basic Personal Info: Functional Language Evaluation: Writing Writes Short Phrases: Functional Cognitive Patient Orientation Pt was oriented to self and place, not oriented to time (stated it is July 2002, and the season is end of summer) Objective Formal/Standardized Tests MMSE Results 20/30 earned points. Registration was 3/3, recall was 2/3. Reverse spelling was 2/5, poor orientation to place. 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 She reported that she routinely takes her medication (organized by her daughter), however family report indicates that the pt is inconsistent with medication. Oral Motor/Speech Production Normal Speech Shelter Goals Shelter Goals The pt will demonstrate use of memory strategies for functional daily skills with min assist provided. Time Frame: 7 days Speech-Plan Patient/Family Goals Patient/Family Goals: Pt wants to return home with intermittent supervision from family Treatment Plan Speech Therapy Treatment Plan: Continue Plan of Care Frequency: Modified Program (IRF) Estimated Hrs Per Day: .5 hour per day Rehab Potential: Good Barriers to Learning: Dementia, memory impairment Time Speech Therapy Time In: 11:05 Speech Therapy Time Out: 11:50 DATE: Mar 23, 2023 Total Billed Time: 45 Billed Treatment Time 1 (SPSNDCOMP) PEGGY BLACKMON Mar 23, 2023 16:22
[2023-03-23 20:00] VITALS: BP 130/63
[2023-03-23] MEDS: QUEtiapine IMMEDIATE RELEASE 25 MG TABLET PO SCH (20:27)
[2023-03-23] MEDS: DONEPEZIL 5 MG TABLET PO SCH (20:27)
--- NOTE | 2023-03-24 06:09 | PM&R Progress Note ---
Subjective HPI/CC On Admission Date Seen by Provider: Mar 24, 2023 Time Seen by Provider: 11:00 Subjective/Events-last exam 03/24/2023: Doing well Improved balance PT OT participation is good Eating well BM+ 03/23/2023: Doing better Working with therapy No falls No pain reported 03/22/2023: Patient doing well Asking to go home already Moving around fairly well but slow Fall risk prevention Balance is an issue Labs reviewed Review of Systems General: Fatigue, Malaise Objective Exam Vital Signs Vital Signs Date Time Temp Pulse Resp B/P (MAP) Pulse Ox O2 Delivery O2 Flow Rate FiO2 03/24/23 12:32 66 03/24/23 09:25 Room Air 03/24/23 07:59 36.5 20 117/58 (77) 94 03/22/23 09:11 0.00 Capillary Refill : General Appearance: No Apparent Distress, WD/WN, Chronically ill HEENT: PERRL/EOMI, Normal ENT Inspection, Pharynx Normal Neck: Full Range of Motion, Normal Inspection, Non Tender, Supple, Carotid Bruit Respiratory: Chest Non Tender, Lungs Clear, Normal Breath Sounds, No Accessory Muscle Use, No Respiratory Distress Cardiovascular: Regular Rate, Rhythm, No Edema, No Gallop, No JVD, No Murmur, Normal Peripheral Pulses, Bradycardia Gastrointestinal: Normal Bowel Sounds, No Organomegaly, No Pulsatile Mass, Non Tender, Soft Back: Normal Inspection, No CVA Tenderness, No Vertebral Tenderness Extremity: Normal Capillary Refill, Normal Inspection, Normal Range of Motion, Non Tender, No Calf Tenderness, No Pedal Edema Neurologic/Psychiatric: Alert, Oriented x3, travel money advisor II-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 FIM Transfers Therapy Code Descriptions/Definitions Functional [place] Measure: 0=Not Assessed/NA 4=Minimal Assistance 1=Total Assistance 5=Supervision or Setup 2=Maximal Assistance 6=Modified [place] 3=Moderate Assistance 7=Complete IndependenceSCALE: Activities may be completed with or without assistive devices. 9-Tawhcdqmbe-shuttfe completes the activity by him/herself with no assistance from a helper. 5-Set-up or Clean-up Assistance-helper sets up or cleans up; patient completes activity. [place] assists only prior to or following the activity. 4-Supervision or Touching Assistance-helper provides verbal cues and/or touching/steadying and/or contact guard assistance as patient completes activity. Assistance may be provided throughout the activity or intermittently. 3-Partial/Moderate Assistance-helper does LESS THAN HALF the effort. [place] lifts, holds or supports trunk or limbs, but provides less than half the effort. 2-Substantial/Maximal Assistance-helper does MORE THAN HALF the effort. [place] lifts or holds trunk or limbs and provides more than half the effort. 1-Dutifxykd-qfqyov does ALL the effort. Patient does none of the effort to complete the activity. Or, the assistance of 2 or more helpers is required for the patient to complete the activity. If activity was not attempted, code reason: 7-Patient Refused. 9-Not Applicable-not attempted and the patient did not perform the activity before the current illness, exacerbation or injury. 10-Not Attempted due to Environmental Limitations-(lack of equipment, weather restraints, etc.). 88-Not Attempted due to Medical Conditions or Safety Concerns. Roll Left to Right (QC): 4 (SBA ) Sit to Lying (QC): 4 (SBA ) Sit to Stand (QC): 3 (Min A ) Chair/Tvt-rz-Bsrtq Xfer(QC): 3 (Min A ) Car Transfer (QC): 3 (Min A ) Gait Training Does the Patient Walk?: Yes Walk 10 feet (QC): 4 (CGA ) Walk 50 ft with 2 Turns(QC): 4 (CGA ) Walk 150 ft (QC): 9 (Pt did not walk longer distances at PLOF. ) Walking 10ft/uneven surface-QC: 3 (Min A for safety ) Gait Assistive Device: FWW Wheelchair Training Does the Pt Use a Wheelchair?: Yes Distance: 150ft Wheel 50 ft with 2 turns (QC): 4 (SBA ) Wheel 150 ft (QC): 4 (SBA ) Type of Wheelchair: Manual Stair Training #of Steps: 4 1 Step (curb) (QC): 3 (Min A ) 4 Steps (QC): 3 (Min A ) 12 Steps (QC): 9 (Pt did not complete 12 steps at PLOF ) Balance Picking up an Object (QC): 4 (CGA with resource program teacher ) ADL-Treatment Eating (QC): 5 (set up assist ) Oral Hygiene (QC): 5 (set up seated) Shower/Bathe Self (QC): 3 (Min A balance in standing and min A with posterior hygiene) Upper Body Dressing (QC): 5 Lower Body Dressing (QC): 3 (Min A balance during pant hike.) On/Off Footwear (QC): 5 (set up to doff/don gripper socks and shoes.) Toileting Hygiene (QC): 3 (Min A balance in standing and min A with posterior hygiene.) Assessment/Plan Assessment and Plan Assess & Plan/Chief Complaint Assessment: Heart failure due to severe sinus bradycardia causing syncope Dementia DM HTN HLP Fall risk Advanced age Plan: PT OT Home meds Monitor closely 03/22/2023: Supportive care Therapy tomorrow 03/23/2023: Continue aggressive rehab Monitor for falls 03/24/2023: Continue aggressive rehab Fall risk prevention (1) Severe sinus bradycardia ERUM SANTANA DO Mar 24, 2023 06:09
--- NOTE | 2023-03-24 06:12 | Individualized Plan of Care ---
Individualized Plan of Care Rehab Nursing IPOC Order Admission Date Mar 21, 2023 at 10:30 Current Orders Orders Admission Arrival Bed Request (03/21/23 10:44) Admission Order(Inpt,Obs,Sdc) (03/21/23 12:01) Vital Signs: Per Unit Policy ( 08,16,00 (03/21/23 12:01) Moise Varma 09,21 (03/21/23 12:01) Sequential Compression Device Q12HX1 (03/21/23 12:01) Merchandise Executive-Inpt Rehab Con (03/21/23 12:01) Rehab Nursing Orders-Ipoc (03/21/23 12:01) Physical Therapy Rehab Orders (03/21/23 12:01) Occupational Therapy Rehab Ord (03/21/23 12:01) Speech Therapy Rehab Orders (03/21/23 12:01) Cbc With Automated Diff (03/22/23 06:00) Comprehensive Metabolic Panel (03/22/23 06:00) Precautions (Aru) (03/21/23 12:01) Weekly Weight WEEK (03/21/23 12:01) Rehab-Intensity Of Therapy (03/21/23 12:01) Initiate Admission Nursing Pro .admission (03/21/23 12:01) Alprazolam Tablet (Alprazolam Tablet) (03/21/23 12:15) Calcium Carbonate Chew Tablet (Calcium C (03/21/23 12:15) Diphenhydramine Tablet (Diphenhydramine (03/21/23 12:15) Docusate Sodium Capsule (Docusate Sodium (03/21/23 21:00) Docusate Sodium Capsule (Docusate Sodium (03/21/23 12:15) Bisacodyl Suppository (Bisacodyl Supposi (03/21/23 12:15) Lactulose Oral Solution (Enulose Oral So (03/21/23 12:15) Na Phos/Na Biphos Adult Enema (Na Phos/N (03/21/23 12:15) Guaifenesin/Codeine Syrup (Guaifenesin/C (03/21/23 12:15) Loperamide Capsule (Loperamide Capsule) (03/21/23 12:15) Melatonin Tablet (Melatonin Tablet) (03/21/23 12:15) Polyethylene Glycol Powder (Polyethylen (03/21/23 21:00) Ondansetron Oral Dissolve Tab (Ondanset (03/21/23 12:15) Senna W/Docusate Tablet (Senna W/Docusat (03/21/23 21:00) Acetaminophen Tablet (Acetaminophen Ta (03/21/23 12:15) Initiate Admission Nursing Pro .admission (03/21/23 12:01) Code/Resuscitation (03/21/23 13:06) Accucheck Achs ACHS (03/21/23 13:06) Incentive Spirometry (Nursing) Q2H (03/21/23 13:06) Sequential Compression Device Q12HX1 (03/21/23 13:06) Moise Hose (03/21/23 13:06) Heart Healthy (03/21/23 Lunch) Acetaminophen Tablet (Acetaminophen Ta (03/21/23 13:15) Aspirin Enteric Coated Tablet (Ecotrin T (03/22/23 09:00) Diphenhydramine Injection (Diphenhydram (03/21/23 13:15) Diphenhydramine Tablet (Diphenhydramine (03/21/23 13:15) Clopidogrel Tablet (Clopidogrel Tablet) (03/22/23 09:00) Docusate Sodium Capsule (Docusate Sodium (03/21/23 21:00) Bisacodyl Suppository (Bisacodyl Supposi (03/21/23 13:15) Lactulose Oral Solution (Enulose Oral So (03/21/23 13:15) Levothyroxine Tablet (Levothyroxine Tabl (03/22/23 06:30) Melatonin Tablet (Melatonin Tablet) (03/21/23 13:15) Milk Of Magnesia Oral Susp (Milk Of Magn (03/21/23 13:15) Polyethylene Glycol Powder (Polyethylen (03/21/23 13:15) Antacid Suspension (Antacid Suspension (03/21/23 13:15) Insulin Aspart (Per Unit) (Insulin Aspar (03/21/23 16:00) Sennosides Tablet (Sennosides Tablet) (03/21/23 21:00) Calcium Carbonate Chew Tablet (Calcium C (03/21/23 13:15) Acetaminophen Tablet (Acetaminophen Ta (03/21/23 13:15) Ondansetron Injection (Ondansetron Inj (03/21/23 13:15) Ondansetron Oral Dissolve Tab (Ondanset (03/21/23 13:15) Amlodipine Tablet (Amlodipine Tablet) (03/22/23 09:00) Consult Cardiology (03/21/23 13:06) Incentive Spirometry Initial (03/21/23 13:06) Mat Initiate Protocol (03/21/23 13:06) Oxygen Delivery Set Up (03/21/23 13:06) Svn Small Volume Nebulizer (03/21/23 13:06) Incentive Spirometry (Nursing) Q2H (03/21/23 13:06) Telemetry (03/21/23 13:06) Telemetry Nursing Assessment ( (03/21/23 13:06) Iv Convert To [place] (Order) (03/21/23 13:06) Catheter(Urinary) Discontinue (03/21/23 13:06) Enoxaparin Injection (Enoxaparin Injecti (03/22/23 05:00) Amlodipine Tablet (Amlodipine Tablet) (03/22/23 09:00) Aspirin Chewable Tablet (Aspirin Chewabl (03/22/23 09:00) Atorvastatin Tablet (Atorvastatin Tablet (03/22/23 09:00) Buspirone Tablet (Buspirone Tablet) (03/21/23 21:00) Clopidogrel Tablet (Clopidogrel Tablet) (03/22/23 09:00) Donepezil Tablet (Donepezil Tablet) (03/21/23 21:00) Glipizide Tablet (Glipizide Tablet) (03/22/23 07:00) Levetiracetam Tablet (Levetiracetam Tabl (03/21/23 21:00) Levothyroxine Tablet (Levothyroxine Tabl (03/22/23 09:00) Losartan Tablet (Losartan Tablet) (03/22/23 09:00) Sertraline Tablet (Sertraline Tablet) (03/22/23 09:00) (Nf) Alendronate Sodium (03/21/23 16:45) (Nf) Exenatide Microspheres (Bydureon Bc (03/21/23 16:45) (Nf) Insulin Detemir (Levemir Flexpen) (03/21/23 21:00) (Nf) Quetiapine Fumarate (03/21/23 21:00) Quetiapine Immediate Release (Quetiapine (03/21/23 21:00) Insulin Determir (Per Unit) (Insulin Det (03/21/23 21:00) Patient Visit (03/23/23 ) Pt Eval Moderate Complexity (03/23/23 ) Gait Training, Ea 15 Min (03/23/23 ) Functional Activities, Ea 15 (03/23/23 ) Speech Sound Lang Comp (03/23/23 ) Patient Visit (03/23/23 ) Rehab Nursing Orders: Ongoing Assess. of Cognitive Status, Ongoing Assess. of Function Status, Bladder Management, Bladder Scan, Bladder Training, Bowel Management, Bowel Training, Disease Management & Educaiton, DVT Prophylaxis, Fall Prevention, Fluid/Electrolyte/Nutrition Mgmt, Infection Prevention, Med ication Management & Education, Management of Risks & Complications, Management of Skin Intergrity, Nutrition Management, Pain Management, Patient/Family Support, Safety Management Intensity of Therapy to be met Patient to be seen: Min.3h per day/5 of 7d PT IPOC Problem List: Activity Tolerance, Functional Strength, Safety, Balance, Gait, Transfer, Bed Mobility, ROM Treatment Plan: Continue Plan of Care Bed Mobility, Education, Functional Activity Nilsa, Functional Strength, Group Therapy, Gait, Safety, Therapeutic Exercise, Transfers Treatment Duration: Apr 04, 2023 Frequency: At least 5 of 7 days/Wk (IRF) Estimated Hrs Per Day: 1.5 hours per day OT IPOC Problems: Decreased Activ Tolerance, Decreased Safety Aware, Decreased UE Strength, Impaired Funct Balance, Impaired I ADL's, Impaired Self-Care Skills OT Treatment, Training and Edu: Yes Plan of Care: ADL Retraining, Caregiver Training, Functional Mobility, Group Exercise/Act as Ind, UE Funct Exercise/Act Treatment Duration: Apr 10, 2023 Frequency: At least 5 of 7 days/Wk (IRF) Estimated Hrs Per Day: Other (75 mins per day) ST IPOC Speech Therapy Treatment Plan: Continue Plan of Care Treatment Duration: Mar 23, 2023 Frequency: Modified Program (IRF) Estimated Hrs Per Day: .5 hour per day Merchandise Executive/Case Mgmt Merchandise Executive/Case Managemen: Discharge Planning Dietitian/Broadcast Supervisor Dietitian/Broadcast Supervisor to monitor nutritional status and make changes and/or recommendations as needed and work with speech pathology on dietary upgrades as the occur. Physician IPOC Medical Issues being managed closely and that require the 24 hour availability of a physician: Recent syncopal episode with bradycardia will require close monitoring with Tely along with Cardiology consultation in order to monitor for heart failure issues Medical Issues: Bowel/Bladder Function, DVT Prophylaxis, Falls Precautions, Fluid/Electrolyte/Nutrition Balance, Infection Protection, Pain Management Brief Synthesis of Preadmission Screen, Post-Admission Evaluation, and Therapy Evaluations: PT OT will focus on regaining function with the use of AD in order to decrease chance of falls and increase stamina with ambulation Medical Prognosis: Good Anticipated Length of Stay: 7 days ERUM SANTANA DO Mar 24, 2023 06:12
[2023-03-24] MEDS: ENOXAPARIN 40 MG/0.4 ML SYRINGE SC SCH (06:25)
[2023-03-24] MEDS: glipiZIDE 5 MG TABLET PO SCH (06:25)
[2023-03-24] MEDS: LEVOTHYROXINE 75 MCG TABLET PO SCH (06:25)
[2023-03-24] MEDS: inSUlin ASPART 1 UNIT/0.01 ML (PER UNIT) SC SCH ×4 (06:32→21:56)
[2023-03-24 07:59] VITALS: BP 117/58
[2023-03-24] MEDS: busPIRone 10 MG TABLET PO SCH ×2 (08:35→21:57)
[2023-03-24] MEDS: LevETIRAcetam 500 MG TABLET PO SCH ×2 (08:35→21:57)
[2023-03-24] MEDS: CLOPIDOGREL 75 MG TABLET PO SCH (08:35)
[2023-03-24] MEDS: LOSARTAN 50 MG TABLET PO SCH (08:35)
[2023-03-24] MEDS: amLODIPine 5 MG TABLET PO SCH (08:36)
[2023-03-24] MEDS: ASPIRIN 81 MG CHEWABLE TABLET PO SCH (08:36)
[2023-03-24] MEDS: SERTRALINE 100 MG TABLET PO SCH (08:36)
[2023-03-24] MEDS: SENNOSIDES 8.6 MG TABLET PO SCH ×2 (08:37→21:40)
[2023-03-24] MEDS: DOCUSATE SODIUM 100 MG CAPSULE PO SCH ×2 (08:37→21:40)
[2023-03-24] MEDS: inSUlin DETERMIR 1 UNIT/0.01 ML (CHARGE PER UNIT) SQ SCH ×2 (09:10→21:58)
--- NOTE | 2023-03-24 09:37 | Occupational Ther Daily Note ---
OT Current Status-Daily Note Subjective Pt in bed, agreeable to OT Tx with focus on ADLS. ADL-Treatment Therapy Code Descriptions/Definitions Functional [place] Measure: 0=Not Assessed/NA 4=Minimal Assistance 1=Total Assistance 5=Supervision or Setup 2=Maximal Assistance 6=Modified [place] 3=Moderate Assistance 7=Complete IndependenceSCALE: Activities may be completed with or without assistive devices. 2-Yepnfszuzi-npsaxpu completes the activity by him/herself with no assistance f rom a helper. 5-Set-up or Clean-up Assistance-helper sets up or cleans up; patient completes activity. [place] assists only prior to or following the activity. 4-Supervision or Touching Assistance-helper provides verbal cues and/or touching/steadying and/or contact guard assistance as patient completes activity. Assistance may be provided throughout the activity or intermittently. 3-Partial/Moderate Assistance-helper does LESS THAN HALF the effort. [place] lifts, holds or supports trunk or limbs, but provides less than half the effort. 2-Substantial/Maximal Assistance-helper does MORE THAN HALF the effort. [place] lifts or holds trunk or limbs and provides more than half the effort. 1-Ickysapfz-mhyomy does ALL the effort. Patient does none of the effort to complete the activity. Or, the assistance of 2 or more helpers is required for the patient to complete the activity. If activity was not attempted, code reason: 7-Patient Refused. 9-Not Applicable-not attempted and the patient did not perform the activity before the current illness, exacerbation or injury. 10-Not Attempted due to Environmental Limitations-(lack of equipment, weather restraints, etc.). 88-Not Attempted due to Medical Conditions or Safety Concerns. Eating (QC): 6 Oral Hygiene (QC): 6 (seated at sink) Shower/Bathe Self (QC): 3 (Assist washing/drying buttocks for thoroughness) Upper Body Dressing (QC): 5 Lower Body Dressing (QC): 4 (CGA) On/Off Footwear: 5 Toileting Hygiene (QC): 3 (Assist with posterior hygiene) Toilet Transfer (QC): 4 (CGA sit to/from stand) Other Treatment Pt in bed, transferred supine to sit EOB, SBA. Pt stood from EOB to FWW, CGA, then transferred into bathroom and onto toilet, CGA. Pt completed toileting. OT asked pt if she was able to get the backside after BM, pt indicated yes. When OT wiped pt to check, pt had not thoroughly performed posterior hygiene requiring assistance. Pt used FWW to transfer to NV, CGA. Pt doffed clothes, completed shower, then donned clothes. Pt sat at sink for grooming tasks, IND. Pt used FWW to perform functional mobility to table in [facility] common area. Pt used BUEs to place puzzle pieces together for 100 piece puzzle. This task was performed in order to focus on sequencing, problem solving, and functional use of BUEs. Pt required assistance sorting edges from inside pieces. OT placed ~5 puzzle pieces in front of pt at a time for pt to put in the correct place. Pt required max VCs for correct placement/orientation of pieces. Pt returned to her room using FWW, CGA, transferring to reclnier. Post tx, pt in recliner, call light in reach and all needs met, chair alarm activated. With all stand to sit transfers, pt required max Vcs for correct technique and safety due to poor carryover from previous session, and poor carryover within same tx session. Education OT Patient Education: Correct positioning, Energy conservation, Modified ADL techniques, Progress toward Goal/Update tx plan, Purpose of tx/functional activities, Rehab process, Safety issues, Transfer techniques Teaching Recipient: Patient Teaching Methods: Demonstration, Discussion Response to Teaching: Reinforcement Needed OT Tire Regrooving Machine Operator Goals Tire Regrooving Machine Operator Goals Time Frame: Apr 10, 2023 Acute change in mental status: 0 Inattention: 0 Disorganized thinkin Altered level of consciousness: 0 Eating (QC): 6 Oral Hygiene (QC): 6 Toileting Hygiene (QC): 6 Shower/Bathe Self (QC): 4 Upper Body Dressing (QC): 6 Lower Body Dressing (QC): 6 On/Off Footwear (QC): 6 Additional Goals: 1-Demonstrate ADL Tasks, 2-Verbalize Understanding, 3- ImproveStrength/Nilsa 1=Demonstrate adherence to instructed precautions during ADL tasks. 2=Patient will verbalize/demonstrate understanding of assistive devices/modifications for ADL. 3=Patient will improve strength/tolerance for activity to enable patient to perform ADL's. OT Education/Plan Problem List/Assessment Assessment: Decreased Activ Tolerance, Decreased Safety Aware, Decreased UE Strength, Impaired Funct Balance Discharge Recommendations Plan/Recommendations: Continue POC Treatment Plan/Plan of Care Patient would benefit from OT for education, treatment and training to promote independence in ADL's, mobility, safety and/or upper extremity function for ADL's. Plan of Care: ADL Retraining, Caregiver Training, Functional Mobility, Group Exercise/Act as Ind, UE Funct Exercise/Act Treatment Duration: Apr 10, 2023 Frequency: At least 5 of 7 days/Wk (IRF) Estimated Hrs Per Day: Other (75 mins per day) Agreement: Yes Rehab Potential: Good Time Start Time: 07:45 Stop Time: 09:00 DATE: Mar 24, 2023 Total Time Billed (hr/min): 75 Billed Treatment Time 1, ADL 3 (45'), FA 2 (30') COLTON PIERRE OT Mar 24, 2023 09:37
--- NOTE | 2023-03-24 11:25 | Physical Therapy Daily Note ---
PT Daily Note-Current Subjective Pt reports she is doing well today and is agreeable to PT. Pt denies pain. Pain Numeric Pain Scale: 0-No Pain Location: No Pain Reported Section J - Health Conditions 1. Rarely or not at all 2. Occasionally 3. Frequently 4. Almost constantly 8. Unable to answer Pain Effect on Sleep: 1 Pain Interference with Therapy: 1 Pain Interference w/Day-to-Day: 1 Transfers SCALE: Activities may be completed with or without assistive devices. 6-Iklnezhsgr-tdzlill completes the activity by him/herself with no assistance from a helper. 5-Set-up or Clean-up Assistance-helper sets up or cleans up; patient completes activity. [place] assists only prior to or following the activity. 4-Supervision or Touching Assistance-helper provides verbal cues and/or touching/steadying and/or contact guard assistance as patient completes activity. Assistance may be provided throughout the activity or intermittently. 3-Partial/Moderate Assistance-helper does LESS THAN HALF the effort. [place] lifts, holds or supports trunk or limbs, but provides less than half the effort. 2-Substantial/Maximal Assistance-helper does MORE THAN HALF the effort. [place] lifts or holds trunk or limbs and provides more than half the effort. 3-Ifgzkrabw-xcugsx does ALL the effort. Patient does none of the effort to complete the activity. Or, the assistance of 2 or more helpers is required for the patient to complete the activity. If activity was not attempted, code reason: 7-Patient Refused. 9-Not Applicable-not attempted and the patient did not perform the activity b efore the current illness, exacerbation or injury. 10-Not Attempted due to Environmental Limitations-(lack of equipment, weather restraints, etc.). 88-Not Attempted due to Medical Conditions or Safety Concerns. Sit to Stand (QC): 4 Chair/Hhz-gz-Smevc Xfer(QC): 4 Weight Bearing Right Lower Extremity: Right Full Weight Bearing Left Lower Extremity: Left Full Weight Bearing Gait Training Does the Patient Walk?: Yes Walk 10 feet (QC): 4 Walk 50 ft with 2 Turns(QC): 4 Walk 150 ft (QC): 88 Gait Persons Needed: 1 Gait Assistive Device: FWW Treatments Pt completed functional transfers with SBA and Min v/c for correct hand placemen t, sequence, and safety. Pt ambulated 65ft and 60ft x 4 with the FWW and CGA (w/c follow for decreased endurance). Pt completed seated B LE Ther Ex x 15 reps each with the red Tband. Pt completed 15 min on the nu-step on level 1. Pt worked on a puzzle while standing for 3 bouts of 1' 30" with the FWW and CGA/SBA. After treatment session, pt sitting up in the recliner with call light in reach and all needs met. Assessment Current Status: Good Progress Pt tolerated PT well with good effort PT Denial Management Representative Goals Custodial Goals PT Custodial Goals Time Frame: Apr 04, 2023 Roll Left & Right (QC): 6 (Pt will be Mod I with bed mobility and functional transfers. ) Sit to Lying (QC): 6 (Pt will be Mod I with bed mobility and functional transfers. ) Lying-Sitting on Side/Bed(QC): 6 (Pt will be Mod I with bed mobility and functional transfers. ) Sit to Stand (QC): 6 (Pt will be Mod I with bed mobility and functional transfers. ) Chair/Brp-yi-Kobry Xfer(QC): 6 (Pt will be Mod I with bed mobility and functional transfers. ) Toilet Transfer (QC): 6 (Pt will be Mod I with bed mobility and functional transfers. ) Car Transfer (QC): 6 (Pt will be Mod I with bed mobility and functional transfers. ) Does the Patient Walk: Yes Walk 10 feet (QC): 4 (Pt will be SBA for walking with the FWW, up to 50ft. ) Walk 50ft with 2 Turns (QC): 4 (Pt will be SBA for walking with the FWW, up to 50ft. ) Walk 150 ft (QC): 9 (Pt did not walk longer distances at PLOF. ) Walking 10ft on Uneven Surface: 4 (Pt will be SBA for walking with the FWW, up to 50ft. ) 1 Step (curb) (QC): 4 (SBA for stairs ) 4 Steps (QC): 4 (SBA for stairs ) 12 Steps (QC): 9 (Pt did not complete 12 steps at PLOF ) Picking up an Object (QC): 5 (set-up with music theory professor ) Does the Pt use WC or Scooter?: Yes Wheel 50 feet with 2 turns (QC: 6 (Mod I with w/c mobility ) Type: Manual Wheel 150 feet: 6 (Mod I with w/c mobility ) Type: Manual PT Plan Problem List Problem List: Activity Tolerance, Functional Strength, Safety, Balance, Gait, Transfer, Bed Mobility, ROM Treatment/Plan Treatment Plan: Continue Plan of Care Treatment Plan: Bed Mobility, Education, Functional Activity Nilsa, Functional Strength, Group Therapy, Gait, Safety, Therapeutic Exercise, Transfers Treatment Duration: Apr 04, 2023 Frequency: At least 5 of 7 days/Wk (IRF) Estimated Hrs Per Day: 1.5 hours per day Patient and/or Family Agrees t: Yes Safety Risks/Education Patient Education: Gait Training, Transfer Techniques, Correct Positioning, Safety Issues Teaching Recipient: Patient Teaching Methods: Demonstration, Discussion Response to Teaching: Reinforcement Needed Discharge Recommendations Therapy Discharge Recommendati: Home & Family, Post Acute PT Equpiment Recommendations-D/C: None Discharge Status/Home Program Cont per POC Barriers to Progress Weakness/endurance Target Placement Home with family assistance Time Time In: 930 Time Out: 1100 DATE: Mar 24, 2023 Total Billed Treatment Time: 90 Total Billed Treatment 90 min total from 3524-8747 1 visit EX x 1 FA x 2 GT x 3 RAMESH GAVIN PT Mar 24, 2023 11:25
--- NOTE | 2023-03-24 11:58 | Speech Therapy Daily Note ---
Speech Daily Progress Note Subjective Date Seen by Provider: Mar 24, 2023 Time Seen by Provider: 11:15 The pt was interactive and socially appropriate for duration of session. Hearing loss impedes ability to answer questions, repetitions needed. Objective Spaced retrieval was utilized for use of nursing call light and referencing whiteboard for orientation to time. The pt initially was unable to identify how to call for nursing help. With repeated stimulus question at 1-, 2-, 4-, and 8- minute intervals, the pt was readily able to recall call light use at 8-minute interval. Referencing white board for orientation was at poor accuracy for 1- minute interval. Assessment Assessment Current Status: Fair Progress Treatment Plan Continue Plan of Care Speech Fci Goals Fci Goals The pt will demonstrate use of memory strategies for functional daily skills with min assist provided. Time Frame: 7 days Speech-Plan Treatment Plan Speech Therapy Treatment Plan: Continue Plan of Care Treatment Duration: Mar 23, 2023 Frequency: Modified Program (IRF) Estimated Hrs Per Day: .5 hour per day Rehab Potential: Good Time Speech Therapy Time In: 11:15 Speech Therapy Time Out: 11:45 DATE: Mar 24, 2023 Total Billed Time: 30 Billed Treatment Time 1 PEGGY REES Mar 24, 2023 11:58
[2023-03-24 20:00] VITALS: BP 157/65
[2023-03-24] MEDS: DONEPEZIL 5 MG TABLET PO SCH (21:57)
[2023-03-24] MEDS: QUEtiapine IMMEDIATE RELEASE 25 MG TABLET PO SCH (21:57)
--- NOTE | 2023-03-25 05:02 | PM&R Progress Note ---
Subjective HPI/CC On Admission Date Seen by Provider: Mar 25, 2023 Time Seen by Provider: 12:00 Subjective/Events-last exam 03/25/2023: Patient doing well No pain is reported Walking better Working on balance 03/24/2023: Doing well Improved balance PT OT participation is good Eating well BM+ 03/23/2023: Doing better Working with therapy No falls No pain reported 03/22/2023: Patient doing well Asking to go home already Moving around fairly well but slow Fall risk prevention Balance is an issue Labs reviewed Review of Systems General: Fatigue, Malaise Objective Exam Vital Signs Vital Signs Date Time Temp Pulse Resp B/P (MAP) Pulse Ox O2 Delivery O2 Flow Rate FiO2 03/25/23 21:10 94 Room Air 03/25/23 20:10 36.3 60 20 139/69 (92) 03/22/23 09:11 0.00 Capillary Refill : General Appearance: No Apparent Distress, WD/WN, Chronically ill HEENT: PERRL/EOMI, Normal ENT Inspection, Pharynx Normal Neck: Full Range of Motion, Normal Inspection, Non Tender, Supple, Carotid Bruit Respiratory: Chest Non Tender, Lungs Clear, Normal Breath Sounds, No Accessory Muscle Use, No Respiratory Distress Cardiovascular: Regular Rate, Rhythm, No Edema, No Gallop, No JVD, No Murmur, Normal Peripheral Pulses, Bradycardia Gastrointestinal: Normal Bowel Sounds, No Organomegaly, No Pulsatile Mass, Non Tender, Soft Back: Normal Inspection, No CVA Tenderness, No Vertebral Tenderness Extremity: Normal Capillary Refill, Normal Inspection, Normal Range of Motion, Non Tender, No Calf Tenderness, No Pedal Edema Neurologic/Psychiatric: Alert, Oriented x3, concrete bucket unloader II-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 FIM Transfers Therapy Code Descriptions/Definitions Functional [place] Measure: 0=Not Assessed/NA 4=Minimal Assistance 1=Total Assistance 5=Supervision or Setup 2=Maximal Assistance 6=Modified [place] 3=Moderate Assistance 7=Complete IndependenceSCALE: Activities may be completed with or without assistive devices. 1-Dblrsavlwc-ukleksc completes the activity by him/herself with no assistance from a helper. 5-Set-up or Clean-up Assistance-helper sets up or cleans up; patient completes activity. [place] assists only prior to or following the activity. 4-Supervision or Touching Assistance-helper provides verbal cues and/or touching/steadying and/or contact guard assistance as patient completes acti vity. Assistance may be provided throughout the activity or intermittently. 3-Partial/Moderate Assistance-helper does LESS THAN HALF the effort. [place] lifts, holds or supports trunk or limbs, but provides less than half the effort. 2-Substantial/Maximal Assistance-helper does MORE THAN HALF the effort. [place] lifts or holds trunk or limbs and provides more than half the effort. 3-Uslpnzhwn-tqyfcw does ALL the effort. Patient does none of the effort to complete the activity. Or, the assistance of 2 or more helpers is required for the patient to complete the activity. If activity was not attempted, code reason: 7-Patient Refused. 9-Not Applicable-not attempted and the patient did not perform the activity before the current illness, exacerbation or injury. 10-Not Attempted due to Environmental Limitations-(lack of equipment, weather restraints, etc.). 88-Not Attempted due to Medical Conditions or Safety Concerns. Roll Left to Right (QC): 4 (SBA ) Sit to Lying (QC): 4 (SBA ) Sit to Stand (QC): 4 Chair/Ipe-qf-Hwcgo Xfer(QC): 4 Car Transfer (QC): 3 (Min A ) Gait Training Does the Patient Walk?: Yes Walk 10 feet (QC): 4 Walk 50 ft with 2 Turns(QC): 4 Walk 150 ft (QC): 88 Walking 10ft/uneven surface-QC: 3 (Min A for safety ) Gait Persons Needed: 1 Gait Assistive Device: FWW Wheelchair Training Does the Pt Use a Wheelchair?: Yes Distance: 150ft Wheel 50 ft with 2 turns (QC): 4 (SBA ) Wheel 150 ft (QC): 4 (SBA ) Type of Wheelchair: Manual Stair Training #of Steps: 4 1 Step (curb) (QC): 3 (Min A ) 4 Steps (QC): 3 (Min A ) 12 Steps (QC): 9 (Pt did not complete 12 steps at PLOF ) Balance Picking up an Object (QC): 4 (CGA with wire drawing die maker ) ADL-Treatment Eating (QC): 6 Oral Hygiene (QC): 6 (seated at sink) Shower/Bathe Self (QC): 3 (Assist washing/drying buttocks for thoroughness) Upper Body Dressing (QC): 5 Lower Body Dressing (QC): 4 (CGA) On/Off Footwear (QC): 5 Toileting Hygiene (QC): 3 (Assist with posterior hygiene) Toilet Transfer (QC): 4 (CGA sit to/from stand) Assessment/Plan Assessment and Plan Assess & Plan/Chief Complaint Assessment: Heart failure due to severe sinus bradycardia causing syncope Dementia DM HTN HLP Fall risk Advanced age Plan: PT OT Home meds Monitor closely 03/22/2023: Supportive care Therapy tomorrow 03/23/2023: Continue aggressive rehab Monitor for falls 03/24/2023: Continue aggressive rehab Fall risk prevention 03/25/2023: Supportive care Monitor closely (1) Severe sinus bradycardia ERUM SANTANA DO Mar 25, 2023 05:02
[2023-03-25] MEDS: inSUlin ASPART 1 UNIT/0.01 ML (PER UNIT) SC SCH ×4 (06:23→21:13)
[2023-03-25] MEDS: ENOXAPARIN 40 MG/0.4 ML SYRINGE SC SCH (06:23)
[2023-03-25] MEDS: LEVOTHYROXINE 75 MCG TABLET PO SCH (06:23)
[2023-03-25] MEDS: glipiZIDE 5 MG TABLET PO SCH (06:52)
[2023-03-25] MEDS: amLODIPine 5 MG TABLET PO SCH (08:01)
[2023-03-25] MEDS: ASPIRIN 81 MG CHEWABLE TABLET PO SCH (08:02)
[2023-03-25] MEDS: busPIRone 10 MG TABLET PO SCH ×2 (08:02→21:06)
[2023-03-25] MEDS: SERTRALINE 100 MG TABLET PO SCH (08:02)
[2023-03-25] MEDS: LevETIRAcetam 500 MG TABLET PO SCH ×2 (08:03→21:06)
[2023-03-25] MEDS: DOCUSATE SODIUM 100 MG CAPSULE PO SCH ×2 (08:03→21:05)
[2023-03-25] MEDS: SENNOSIDES 8.6 MG TABLET PO SCH ×2 (08:03→21:05)
[2023-03-25] MEDS: CLOPIDOGREL 75 MG TABLET PO SCH (08:03)
[2023-03-25 08:04] VITALS: BP 132/59
--- NOTE | 2023-03-25 08:30 | Occupational Ther Daily Note ---
OT Current Status-Daily Note Subjective Pt agreeable to OT Tx. Pt believes it is July, unable to recall why she is in the hospital. Mental Status/Objective Patient Orientation: Person, Place ADL-Treatment Therapy Code Descriptions/Definitions Functional [place] Measure: 0=Not Assessed/NA 4=Minimal Assistance 1=Total Assistance 5=Supervision or Setup 2=Maximal Assistance 6=Modified [place] 3=Moderate Assistance 7=Complete IndependenceSCALE: Activities may be completed with or without assistive devices. 3-Gdpvsxbyjq-gwohtax completes the activity by him/herself with no assistance from a helper. 5-Set-up or Clean-up Assistance-helper sets up or cleans up; patient completes activity. [place] assists only prior to or following the activity. 4-Supervision or Touching Assistance-helper provides verbal cues and/or touching/steadying and/or contact guard assistance as patient completes activity. Assistance may be provided throughout the activity or intermittently. 3-Partial/Moderate Assistance-helper does LESS THAN HALF the effort. [place] lifts, holds or supports trunk or limbs, but provides less than half the effort. 2-Substantial/Maximal Assistance-helper does MORE THAN HALF the effort. [place] lifts or holds trunk or limbs and provides more than half the effort. 2-Ltgwyrvnw-azrrvm does ALL the effort. Patient does none of the effort to complete the activity. Or, the assistance of 2 or more helpers is required for the patient to complete the activity. If activity was not attempted, code reason: 7-Patient Refused. 9-Not Applicable-not attempted and the patient did not perform the activity before the current illness, exacerbation or injury. 10-Not Attempted due to Environmental Limitations-(lack of equipment, weather restraints, etc.). 88-Not Attempted due to Medical Conditions or Safety Concerns. Eating (QC): 6 Oral Hygiene (QC): 6 Upper Body Dressing (QC): 5 Lower Body Dressing (QC): 4 (SBA for safety) Toileting Hygiene (QC): 3 (Min A with posterior hygiene. Pt completed urination only with SBA.) Toilet Transfer (QC): 4 (VCs for safety, SBA-CGA.) Other Treatment Pt in recliner, donned shirt with set up and pants with SBA for safety in standing. Pt took medications provided by RN, IND. Pt used FWW to transfer into bathroom and onto toilet. SBA sit to stand from recliner, SBA mobility with FWW, and SBA onto toilet (VCs required for safety during transfer). Pt completed toileting, SBA for urination only. Pt transferred to w/c, completed grooming tasks seated at sink IND. Pt propelled w/c to therapy gym. OT tx focused on increasing BUE Strength and activity tolerance. Pt completed arm bike x10 mins, 5 Watt resistance, 4 rest breaks required. She then completed magnetic tangram, placing shapes into outlines. She was able to complete 3 patterns, min-mod VCs required for correct placement. Pt completed fine motor task, removing beads from moderate resistance (red) theraputty, able to locate all beads without cues. Pt propelled w/c back to her room, CGA sit to stand from w/c and transfer to toilet. Pt completed toileting, requiring min A with posterior hygiene, then transferred to recliner using FWW, CGA. Post tx, pt in recliner, call light in reach and all needs met. Chair alarm activated. Pt required VCs for safety with all sit to/from stands due to her tendency to leave walker off to the side and "butt dive" into the chair. Education OT Patient Education: Correct positioning, Energy conservation, Modified ADL techniques, Progress toward Goal/Update tx plan, Purpose of tx/functional activities, Rehab process Teaching Recipient: Patient Teaching Methods: Discussion Response to Teaching: Verbalize Understanding, Reinforcement Needed OT Reading Efficiency Course Director Goals Reading Efficiency Course Director Goals Time Frame: Apr 10, 2023 Acute change in mental status: 0 Inattention: 0 Disorganized thinkin Altered level of consciousness: 0 Eating (QC): 6 Oral Hygiene (QC): 6 Toileting Hygiene (QC): 6 Shower/Bathe Self (QC): 4 Upper Body Dressing (QC): 6 Lower Body Dressing (QC): 6 On/Off Footwear (QC): 6 Additional Goals: 1-Demonstrate ADL Tasks, 2-Verbalize Understanding, 3- ImproveStrength/Nilsa 1=Demonstrate adherence to instructed precautions during ADL tasks. 2=Patient will verbalize/demonstrate understanding of assistive devices/modifications for ADL. 3=Patient will improve strength/tolerance for activity to enable patient to perform ADL's. OT Education/Plan Problem List/Assessment Assessment: Decreased Activ Tolerance, Decreased UE Strength, Impaired Funct Balance, Impaired I ADL's, Impaired Self-Care Skills Discharge Recommendations Plan/Recommendations: Continue POC Treatment Plan/Plan of Care Patient would benefit from OT for education, treatment and training to promote independence in ADL's, mobility, safety and/or upper extremity function for ADL's. Plan of Care: ADL Retraining, Caregiver Training, Functional Mobility, Group Exercise/Act as Ind, UE Funct Exercise/Act Treatment Duration: Apr 10, 2023 Frequency: At least 5 of 7 days/Wk (IRF) Estimated Hrs Per Day: Other (75 mins per day) Agreement: Yes Rehab Potential: Good Time Start Time: 07:45 Stop Time: 09:00 DATE: Mar 25, 2023 Total Time Billed (hr/min): 75 Billed Treatment Time 1, ADL 2 (30'), EX (15'), FA 2 (30') COLTON PIERRE OT Mar 25, 2023 08:30
[2023-03-25 10:30] VITALS: BP 114/60
[2023-03-25] MEDS: LOSARTAN 50 MG TABLET PO SCH (10:39)
[2023-03-25] MEDS: inSUlin DETERMIR 1 UNIT/0.01 ML (CHARGE PER UNIT) SQ SCH ×2 (10:42→21:07)
--- NOTE | 2023-03-25 11:02 | Physical Therapy Daily Note ---
PT Daily Note-Current Subjective Pt reports she is doing well and is agreeable to PT. Pt denies pain. Pain Numeric Pain Scale: 0-No Pain Location: No Pain Reported Section J - Health Conditions 1. Rarely or not at all 2. Occasionally 3. Frequently 4. Almost constantly 8. Unable to answer Pain Effect on Sleep: 1 Pain Interference with Therapy: 1 Pain Interference w/Day-to-Day: 1 Transfers SCALE: Activities may be completed with or without assistive devices. 9-Lwbmssxsyf-gojwffg completes the activity by him/herself with no assistance from a helper. 5-Set-up or Clean-up Assistance-helper sets up or cleans up; patient completes activity. [place] assists only prior to or following the activity. 4-Supervision or Touching Assistance-helper provides verbal cues and/or touching/steadying and/or contact guard assistance as patient completes activity. Assistance may be provided throughout the activity or intermittently. 3-Partial/Moderate Assistance-helper does LESS THAN HALF the effort. [place] lifts, holds or supports trunk or limbs, but provides less than half the effort. 2-Substantial/Maximal Assistance-helper does MORE THAN HALF the effort. [place] lifts or holds trunk or limbs and provides more than half the effort. 4-Mudgkungn-qnbtwk does ALL the effort. Patient does none of the effort to complete the activity. Or, the assistance of 2 or more helpers is required for the patient to complete the activity. If activity was not attempted, code reason: 7-Patient Refused. 9-Not Applicable-not attempted and the patient did not perform the activity before the current illness, exacerbation or injury. 10-Not Attempted due to Environmental Limitations-(lack of equipment, weather restraints, etc.). 88-Not Attempted due to Medical Conditions or Safety Concerns. Sit to Stand (QC): 4 Weight Bearing Right Lower Extremity: Right Full Weight Bearing Left Lower Extremity: Left Full Weight Bearing Gait Training Does the Patient Walk?: Yes Walk 10 feet (QC): 4 Walk 50 ft with 2 Turns(QC): 4 Walk 150 ft (QC): 88 Gait Assistive Device: FWW Wheelchair Training Does the Pt Use a Wheelchair?: Yes Wheel 50 ft with 2 turns (QC): 4 Wheel 150 ft (QC): 4 Type of Wheelchair: Manual Treatments Pt completed functional transfers with SBA and Min/Mod v/c for safety and te chnique/hand placement. Pt ambulated 50ft, 55ft, 60ft, and 70ft with the FWW and CGA (w/c follow for improved safety). Pt completed w/c mobility x 150ft with SBA. Pt completed 20 min on the nu-step on level 2. Pt edu on HEP, with handouts provided. Pt completed seated B LE Ther Ex x 15 reps each with the red Tband. After treatment session, pt sitting in the recliner with call light in reach, chair alarm activated, and all needs met. Assessment Current Status: Good Progress Pt tolerated PT well with good effort PT Correspondence Section Supervisor Goals Correspondence Section Supervisor Goals PT Correspondence Section Supervisor Goals Time Frame: Apr 04, 2023 Roll Left & Right (QC): 6 (Pt will be Mod I with bed mobility and functional transfers. ) Sit to Lying (QC): 6 (Pt will be Mod I with bed mobility and functional transfers. ) Lying-Sitting on Side/Bed(QC): 6 (Pt will be Mod I with bed mobility and functional transfers. ) Sit to Stand (QC): 6 (Pt will be Mod I with bed mobility and functional transfers. ) Chair/Jjo-gz-Tczqn Xfer(QC): 6 (Pt will be Mod I with bed mobility and functional transfers. ) Toilet Transfer (QC): 6 (Pt will be Mod I with bed mobility and functional transfers. ) Car Transfer (QC): 6 (Pt will be Mod I with bed mobility and functional transfers. ) Does the Patient Walk: Yes Walk 10 feet (QC): 4 (Pt will be SBA for walking with the FWW, up to 50ft. ) Walk 50ft with 2 Turns (QC): 4 (Pt will be SBA for walking with the FWW, up to 50ft. ) Walk 150 ft (QC): 9 (Pt did not walk longer distances at PLOF. ) Walking 10ft on Uneven Surface: 4 (Pt will be SBA for walking with the FWW, up to 50ft. ) 1 Step (curb) (QC): 4 (SBA for stairs ) 4 Steps (QC): 4 (SBA for stairs ) 12 Steps (QC): 9 (Pt did not complete 12 steps at PLOF ) Picking up an Object (QC): 5 (set-up with surgical aides teacher ) Does the Pt use WC or Scooter?: Yes Wheel 50 feet with 2 turns (QC: 6 (Mod I with w/c mobility ) Type: Manual Wheel 150 feet: 6 (Mod I with w/c mobility ) Type: Manual PT Plan Problem List Problem List: Activity Tolerance, Functional Strength, Safety, Balance, Gait, Transfer, Bed Mobility, ROM Treatment/Plan Treatment Plan: Continue Plan of Care Treatment Plan: Bed Mobility, Education, Functional Activity Nilsa, Functional Strength, Group Therapy, Gait, Safety, Therapeutic Exercise, Transfers Treatment Duration: Apr 04, 2023 Frequency: At least 5 of 7 days/Wk (IRF) Estimated Hrs Per Day: 1.5 hours per day Patient and/or Family Agrees t: Yes Safety Risks/Education Patient Education: Gait Training, Transfer Techniques, Issued Written HEP, Correct Positioning, W/C Management, Safety Issues Teaching Recipient: Patient Teaching Methods: Demonstration, Discussion Response to Teaching: Verbalize Understanding, Return Demonstration, Reinforcement Needed Discharge Recommendations Therapy Discharge Recommendati: Home & Family, Post Acute PT Equpiment Recommendations-D/C: None Discharge Status/Home Program Cont per POC Barriers to Progress Weakness, endurance Target Placement Home with family assistance, as well as HHC and CG assistance Time Time In: 915 Time Out: 1045 DATE: Mar 25, 2023 Total Billed Treatment Time: 90 Total Billed Treatment 90 min total from [id number] 1 visit EX x 1 GT x 2 FA x 3 RAMESH GAVIN PT Mar 25, 2023 11:02
--- NOTE | 2023-03-25 13:15 | Speech Therapy Daily Note ---
Speech Daily Progress Note Subjective Date Seen by Provider: Mar 25, 2023 Time Seen by Provider: 11:00 The pt was alert, seated in bedside chair. Good participation in session noted. Objective Strategy of spaced retrieval was utilized for recalling use of nurse call button. The pt was able to retain correct procedure when asked the lead question "what do you do if you need your nurse?" at 8-minute and 20-minute intervals. Phone use for calling important family members was also targeted. The pt was independent with recognizing the phone icon on home screen, mod/max assist needed to locate correct icon to press once daughter's contact was retrieved. Assessment Assessment Current Status: Good Progress Treatment Plan Continue Plan of Care Speech Nursing Home Goals Executive Communications Manager Goals The pt will demonstrate use of memory strategies for functional daily skills with min assist provided. Time Frame: 7 days Speech-Plan Treatment Plan Speech Therapy Treatment Plan: Continue Plan of Care Treatment Duration: Mar 23, 2023 Frequency: At least 5 of 7 days/Wk (IRF) Estimated Hrs Per Day: .5 hour per day Rehab Potential: Fair Time Speech Therapy Time In: 11:00 Speech Therapy Time Out: 11:30 DATE: Mar 25, 2023 Total Billed Time: 30 Billed Treatment Time 1 PEGGY REES Mar 25, 2023 13:15
[2023-03-25 20:10] VITALS: BP 139/69
[2023-03-25] MEDS: DONEPEZIL 5 MG TABLET PO SCH (21:06)
[2023-03-25] MEDS: QUEtiapine IMMEDIATE RELEASE 25 MG TABLET PO SCH (21:06)
--- NOTE | 2023-03-26 06:18 | PM&R Progress Note ---
Subjective HPI/CC On Admission Date Seen by Provider: Mar 26, 2023 Time Seen by Provider: 12:30 Subjective/Events-last exam 03/26/2023: No major issues Increasing strength Monitoring closely No falls 03/25/2023: Patient doing well No pain is reported Walking better Working on balance 03/24/2023: Doing well Improved balance PT OT participation is good Eating well BM+ 03/23/2023: Doing better Working with therapy No falls No pain reported 03/22/2023: Patient doing well Asking to go home already Moving around fairly well but slow Fall risk prevention Balance is an issue Labs reviewed Review of Systems General: Fatigue, Malaise Objective Exam Vital Signs Vital Signs Date Time Temp Pulse Resp B/P (MAP) Pulse Ox O2 Delivery O2 Flow Rate FiO2 03/26/23 09:00 Room Air 03/26/23 08:00 36.3 66 20 151/64 (93) 93 03/22/23 09:11 0.00 Capillary Refill : General Appearance: No Apparent Distress, WD/WN, Chronically ill HEENT: PERRL/EOMI, Normal ENT Inspection, Pharynx Normal Neck: Full Range of Motion, Normal Inspection, Non Tender, Supple, Carotid Bruit Respiratory: Chest Non Tender, Lungs Clear, Normal Breath Sounds, No Accessory Muscle Use, No Respiratory Distress Cardiovascular: Regular Rate, Rhythm, No Edema, No Gallop, No JVD, No Murmur, Normal Peripheral Pulses, Bradycardia Gastrointestinal: Normal Bowel Sounds, No Organomegaly, No Pulsatile Mass, Non Tender, Soft Back: Normal Inspection, No CVA Tenderness, No Vertebral Tenderness Extremity: Normal Capillary Refill, Normal Inspection, Normal Range of Motion, Non Tender, No Calf Tenderness, No Pedal Edema Neurologic/Psychiatric: Alert, Oriented x3, service order taker II-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 FIM Transfers Therapy Code Descriptions/Definitions Functional [place] Measure: 0=Not Assessed/NA 4=Minimal Assistance 1=Total Assistance 5=Supervision or Setup 2=Maximal Assistance 6=Modified [place] 3=Moderate Assistance 7=Complete IndependenceSCALE: Activities may be completed with or without assistive devices. 1-Oupnjiwkfy-wmyqktg completes the activity by him/herself with no assistance from a helper. 5-Set-up or Clean-up Assistance-helper sets up or cleans up; patient completes activity. [place] assists only prior to or following the activity. 4-Supervision or Touching Assistance-helper provides verbal cues and/or touching/steadying and/or contact guard assistance as patient completes activity. Assistance may be provided throughout the activity or intermittently. 3-Partial/Moderate Assistance-helper does LESS THAN HALF the effort. [place] lifts, holds or supports trunk or limbs, but provides less than half the effort. 2-Substantial/Maximal Assistance-helper does MORE THAN HALF the effort. [place] lifts or holds trunk or limbs and provides more than half the effort. 5-Fnivxabzq-pnosdl does ALL the effort. Patient does none of the effort to complete the activity. Or, the assistance of 2 or more helpers is required for the patient to complete the activity. If activity was not attempted, code reason: 7-Patient Refused. 9-Not Applicable-not attempted and the patient did not perform the activity before the current illness, exacerbation or injury. 10-Not Attempted due to Environmental Limitations-(lack of equipment, weather restraints, etc.). 88-Not Attempted due to Medical Conditions or Safety Concerns. Roll Left to Right (QC): 4 (SBA ) Sit to Lying (QC): 4 (SBA ) Sit to Stand (QC): 4 Chair/Ktl-sb-Qwvip Xfer(QC): 4 Car Transfer (QC): 3 (Min A ) Gait Training Does the Patient Walk?: Yes Walk 10 feet (QC): 4 Walk 50 ft with 2 Turns(QC): 4 Walk 150 ft (QC): 88 Walking 10ft/uneven surface-QC: 3 (Min A for safety ) Gait Persons Needed: 1 Gait Assistive Device: FWW Wheelchair Training Does the Pt Use a Wheelchair?: Yes Distance: 150ft Wheel 50 ft with 2 turns (QC): 4 Wheel 150 ft (QC): 4 Type of Wheelchair: Manual Stair Training #of Steps: 4 1 Step (curb) (QC): 3 (Min A ) 4 Steps (QC): 3 (Min A ) 12 Steps (QC): 9 (Pt did not complete 12 steps at PLOF ) Balance Picking up an Object (QC): 4 (CGA with adjunct latin professor ) ADL-Treatment Eating (QC): 6 Oral Hygiene (QC): 6 Shower/Bathe Self (QC): 3 (Assist washing/drying buttocks for thoroughness) Upper Body Dressing (QC): 5 Lower Body Dressing (QC): 4 (SBA for safety) On/Off Footwear (QC): 5 Toileting Hygiene (QC): 3 (Min A with posterior hygiene. Pt completed urination only with SBA.) Toilet Transfer (QC): 4 (VCs for safety, SBA-CGA.) Assessment/Plan Assessment and Plan Assess & Plan/Chief Complaint Assessment: Heart failure due to severe sinus bradycardia causing syncope Dementia DM HTN HLP Fall risk Advanced age Plan: PT OT Home meds Monitor closely 03/22/2023: Supportive care Therapy tomorrow 03/23/2023: Continue aggressive rehab Monitor for falls 03/24/2023: Continue aggressive rehab Fall risk prevention 03/25/2023: Supportive care Monitor closely 03/26/2023: Aggressive therapy No falls (1) Severe sinus bradycardia ERUM SANTANA DO Mar 26, 2023 06:18
[2023-03-26] MEDS: glipiZIDE 5 MG TABLET PO SCH (06:29)
[2023-03-26] MEDS: LEVOTHYROXINE 75 MCG TABLET PO SCH (06:29)
[2023-03-26] MEDS: ENOXAPARIN 40 MG/0.4 ML SYRINGE SC SCH (06:29)
[2023-03-26] MEDS: inSUlin ASPART 1 UNIT/0.01 ML (PER UNIT) SC SCH ×4 (06:30→20:49)
--- NOTE | 2023-03-26 07:56 | Occupational Ther Daily Note ---
OT Current Status-Daily Note Subjective Pt agreeable to OT Tx. ADL-Treatment Therapy Code Descriptions/Definitions Functional [place] Measure: 0=Not Assessed/NA 4=Minimal Assistance 1=Total Assistance 5=Supervision or Setup 2=Maximal Assistance 6=Modified [place] 3=Moderate Assistance 7=Complete IndependenceSCALE: Activities may be completed with or without assistive devices. 8-Qxbhozageh-gctdyvw completes the activity by him/herself with no assistance from a helper. 5-Set-up or Clean-up Assistance-helper sets up or cleans up; patient completes activity. [place] assists only prior to or following the activity. 4-Supervision or Touching Assistance-helper provides verbal cues and/or touching/steadying and/or contact guard assistance as patient completes activity. Assistance may be provided throughout the activity or intermittently. 3-Partial/Moderate Assistance-helper does LESS THAN HALF the effort. [place] lifts, holds or supports trunk or limbs, but provides less than half the effort. 2-Substantial/Maximal Assistance-helper does MORE THAN HALF the effort. [place] lifts or holds trunk or limbs and provides more than half the effort. 1-Eyalslllr-yqqkmw does ALL the effort. Patient does none of the effort to complete the activity. Or, the assistance of 2 or more helpers is required for the patient to complete the activity. If activity was not attempted, code reason: 7-Patient Refused. 9-Not Applicable-not attempted and the patient did not perform the activity before the current illness, exacerbation or injury. 10-Not Attempted due to Environmental Limitations-(lack of equipment, weather restraints, etc.). 88-Not Attempted due to Medical Conditions or Safety Concerns. Eating (QC): 6 Oral Hygiene (QC): 6 (seated) Upper Body Dressing (QC): 5 Lower Body Dressing (QC): 4 (SBA for safety in standing) On/Off Footwear: 5 Toileting Hygiene (QC): 4 (SBA with urination only. Pt able to manage clothing and perform hygiene post urination.) Toilet Transfer (QC): 4 (SBA for safety on/off toilet.) Other Treatment Pt in bed, transferred supine to sit EOB independently. Pt donned clothes as outlined above, then used FWW to transfer to toilet, SBA sit to/from stand from EOB, SBA mobility with FWW, then SBA on/off toilet. Pt sat at sink to complete grooming tasks independently. Pt propelled w/c to table in ARU common area. OT tx focused on increasing BUE strength and activity tolerance, and increasing sequencing/problem solving. Pt removed beads from moderate resistance (red) theraputty, able ot locate all beads without cues, dropping 1 bead on the floor. Pt then completed fine motor task, using tweezers in L hand to pickle maker marbles, and place into tube held in R hand, while following printed pattern. Pt able to complete x5 patterns, ~90% accuracy. She then completed UE reaching task, reaching first in vertical plane, then horizontal plane to place/remove objects. Pt propelled w/c to therapy gym independently. She completed x10 mins on arm bike, 5 Watt resistance, no rest breaks. pt returned to her room via w/c, 1 VC to locate correct room. SBA transfer from w/c to recliner using FWW. Post tx, pt in recliner, call light in reach and all needs met. chair alarm activated. Pt required cues with all sit to/from stand transfers for correct UE placement for safety, and to keep walker with her as she tends to leave walker off to the side during transfer. Education OT Patient Education: Correct positioning, Energy conservation, Modified ADL techniques, Progress toward Goal/Update tx plan, Purpose of tx/functional activities, Rehab process Teaching Recipient: Patient Teaching Methods: Discussion Response to Teaching: Verbalize Understanding OT Associate Professor Of English Goals Associate Professor Of English Goals Time Frame: Apr 10, 2023 Acute change in mental status: 0 Inattention: 0 Disorganized thinkin Altered level of consciousness: 0 Eating (QC): 6 Oral Hygiene (QC): 6 Toileting Hygiene (QC): 6 Shower/Bathe Self (QC): 4 Upper Body Dressing (QC): 6 Lower Body Dressing (QC): 6 On/Off Footwear (QC): 6 Additional Goals: 1-Demonstrate ADL Tasks, 2-Verbalize Understanding, 3- ImproveStrength/Nilsa 1=Demonstrate adherence to instructed precautions during ADL tasks. 2=Patient will verbalize/demonstrate understanding of assistive devices/modifications for ADL. 3=Patient will improve strength/tolerance for activity to enable patient to perform ADL's. OT Education/Plan Problem List/Assessment Assessment: Decreased Activ Tolerance, Decreased Safety Aware, Decreased UE Strength, Impaired Funct Balance, Impaired I ADL's, Impaired Self-Care Skills Discharge Recommendations Plan/Recommendations: Continue POC Treatment Plan/Plan of Care Patient would benefit from OT for education, treatment and training to promote independence in ADL's, mobility, safety and/or upper extremity function for ADL's. Plan of Care: ADL Retraining, Caregiver Training, Functional Mobility, Group Exercise/Act as Ind, UE Funct Exercise/Act Treatment Duration: Apr 10, 2023 Frequency: At least 5 of 7 days/Wk (IRF) Estimated Hrs Per Day: Other (75 mins per day) Agreement: Yes Rehab Potential: Fair Time Start Time: 07:30 Stop Time: 08:45 DATE: Mar 26, 2023 Total Time Billed (hr/min): 75 Billed Treatment Time 1, ADL (15'), FA 3 (45'), EX (15') COLTON PIERRE OT Mar 26, 2023 07:56
[2023-03-26 08:00] VITALS: BP 151/64
[2023-03-26] MEDS: amLODIPine 5 MG TABLET PO SCH (08:38)
[2023-03-26] MEDS: LevETIRAcetam 500 MG TABLET PO SCH ×2 (08:38→20:48)
[2023-03-26] MEDS: SERTRALINE 100 MG TABLET PO SCH (08:38)
[2023-03-26] MEDS: CLOPIDOGREL 75 MG TABLET PO SCH (08:38)
[2023-03-26] MEDS: ASPIRIN 81 MG CHEWABLE TABLET PO SCH (08:38)
[2023-03-26] MEDS: DOCUSATE SODIUM 100 MG CAPSULE PO SCH ×2 (08:40→20:49)
[2023-03-26] MEDS: inSUlin DETERMIR 1 UNIT/0.01 ML (CHARGE PER UNIT) SQ SCH ×2 (08:41→20:49)
[2023-03-26] MEDS: busPIRone 10 MG TABLET PO SCH ×2 (08:59→20:48)
[2023-03-26] MEDS: SENNOSIDES 8.6 MG TABLET PO SCH ×2 (08:59→20:49)
[2023-03-26] MEDS: LOSARTAN 50 MG TABLET PO SCH (08:59)
--- NOTE | 2023-03-26 11:52 | Speech Therapy Daily Note ---
Speech Daily Progress Note Subjective Date Seen by Provider: Mar 26, 2023 Time Seen by Provider: 11:05 The pt was awake and alert, interacted appropriately for duration of session. Objective The pt was able to recall previously encoded sequence for calling nurse at [employer] arrival. Functional money handling was targeted in session. The pt sorted simulated bills with good accuracy. She was able to count simple to moderately complex sums with 80%accuracy. Making simple chane was done with 50% accuracy independently, improved to 90% with assistance provided. The pt was oriented to month and day of week without cues. Assessment Assessment Current Status: Good Progress Treatment Plan Continue Plan of Care Speech Converting Operator Goals Skilled Nursing Goals The pt will demonstrate use of memory strategies for functional daily skills with min assist provided. Time Frame: 7 days Speech-Plan Treatment Plan Speech Therapy Treatment Plan: Continue Plan of Care Treatment Duration: Mar 23, 2023 Frequency: At least 5 of 7 days/Wk (IRF) Estimated Hrs Per Day: .5 hour per day Rehab Potential: Fair Time Speech Therapy Time In: 11:05 Speech Therapy Time Out: 11:35 DATE: Mar 26, 2023 Total Billed Time: 30 Billed Treatment Time 1 PEGGY REES Mar 26, 2023 11:52
--- NOTE | 2023-03-26 13:25 | Physical Therapy Daily Note ---
PT Daily Note-Current Subjective Pt reports she is doing well this morning and is agreeable to PT. Pt denies any pain. Pain Numeric Pain Scale: 0-No Pain Location: No Pain Reported Section J - Health Conditions 1. Rarely or not at all 2. Occasionally 3. Frequently 4. Almost constantly 8. Unable to answer Pain Effect on Sleep: 1 Pain Interference with Therapy: 1 Pain Interference w/Day-to-Day: 1 Transfers SCALE: Activities may be completed with or without assistive devices. 8-Abfyeragki-fdvelcz completes the activity by him/herself with no assistance from a helper. 5-Set-up or Clean-up Assistance-helper sets up or cleans up; patient completes activity. [place] assists only prior to or following the activity. 4-Supervision or Touching Assistance-helper provides verbal cues and/or touching/steadying and/or contact guard assistance as patient completes activity. Assistance may be provided throughout the activity or intermittently. 3-Partial/Moderate Assistance-helper does LESS THAN HALF the effort. [place] lifts, holds or supports trunk or limbs, but provides less than half the effort. 2-Substantial/Maximal Assistance-helper does MORE THAN HALF the effort. [place] lifts or holds trunk or limbs and provides more than half the effort. 2-Dvpbzqojj-vhjdjo does ALL the effort. Patient does none of the effort to complete the activity. Or, the assistance of 2 or more helpers is required for the patient to complete the activity. If activity was not attempted, code reason: 7-Patient Refused. 9-Not Applicable-not attempted and the patient did not perform the activity before the current illness, exacerbation or injury. 10-Not Attempted due to Environmental Limitations-(lack of equipment, weather restraints, etc.). 88-Not Attempted due to Medical Conditions or Safety Concerns. Sit to Stand (QC): 4 Chair/Adz-xp-Vxokq Xfer(QC): 4 Weight Bearing Right Lower Extremity: Right Full Weight Bearing Left Lower Extremity: Left Full Weight Bearing Gait Training Does the Patient Walk?: Yes Walk 10 feet (QC): 4 Walk 50 ft with 2 Turns(QC): 4 Gait Assistive Device: FWW Wheelchair Training Does the Pt Use a Wheelchair?: Yes Wheel 50 ft with 2 turns (QC): 4 Wheel 150 ft (QC): 4 Type of Wheelchair: Manual Treatments Pt completed functional transfers with SBA and Min/Mod v/c for safety, technique, and hand placement. Pt ambulated 60ft x 4 and 70ft with the FWW and CGA (w/c follow for improved safety). Pt completed w/c mobility x 150ft with SBA. Pt completed seated B LE Ther Ex x 20 reps each with the red Tband. Pt co mpleted 20 min on the nu-step on level 2. After treatment session. Pt sitting in the recliner with call light in hand and all needs met. Assessment Current Status: Good Progress Pt tolerated PT well with good effort PT Manufacturing Technology Professor Goals Manufacturing Technology Professor Goals PT Manufacturing Technology Professor Goals Time Frame: Apr 04, 2023 Roll Left & Right (QC): 6 (Pt will be Mod I with bed mobility and functional transfers. ) Sit to Lying (QC): 6 (Pt will be Mod I with bed mobility and functional transfers. ) Lying-Sitting on Side/Bed(QC): 6 (Pt will be Mod I with bed mobility and functional transfers. ) Sit to Stand (QC): 6 (Pt will be Mod I with bed mobility and functional transfers. ) Chair/Wxa-tt-Iqjho Xfer(QC): 6 (Pt will be Mod I with bed mobility and functional transfers. ) Toilet Transfer (QC): 6 (Pt will be Mod I with bed mobility and functional transfers. ) Car Transfer (QC): 6 (Pt will be Mod I with bed mobility and functional transfers. ) Does the Patient Walk: Yes Walk 10 feet (QC): 4 (Pt will be SBA for walking with the FWW, up to 50ft. ) Walk 50ft with 2 Turns (QC): 4 (Pt will be SBA for walking with the FWW, up to 50ft. ) Walk 150 ft (QC): 9 (Pt did not walk longer distances at PLOF. ) Walking 10ft on Uneven Surface: 4 (Pt will be SBA for walking with the FWW, up to 50ft. ) 1 Step (curb) (QC): 4 (SBA for stairs ) 4 Steps (QC): 4 (SBA for stairs ) 12 Steps (QC): 9 (Pt did not complete 12 steps at PLOF ) Picking up an Object (QC): 5 (set-up with print producer ) Does the Pt use WC or Scooter?: Yes Wheel 50 feet with 2 turns (QC: 6 (Mod I with w/c mobility ) Type: Manual Wheel 150 feet: 6 (Mod I with w/c mobility ) Type: Manual PT Plan Problem List Problem List: Activity Tolerance, Functional Strength, Safety, Balance, Gait, Transfer, Bed Mobility, ROM Treatment/Plan Treatment Plan: Continue Plan of Care Treatment Plan: Bed Mobility, Education, Functional Activity Nilsa, Functional Strength, Group Therapy, Gait, Safety, Therapeutic Exercise, Transfers Treatment Duration: Apr 04, 2023 Frequency: At least 5 of 7 days/Wk (IRF) Estimated Hrs Per Day: 1.5 hours per day Patient and/or Family Agrees t: Yes Safety Risks/Education Patient Education: Gait Training, Transfer Techniques, Correct Positioning, W/C Management, Safety Issues Teaching Recipient: Patient Teaching Methods: Demonstration Response to Teaching: Verbalize Understanding, Return Demonstration, Reinforcement Needed Discharge Recommendations Therapy Discharge Recommendati: Home & Family, Post Acute PT Equpiment Recommendations-D/C: None Discharge Status/Home Program Cont per POC Barriers to Progress Weakness, endurance Target Placement Home with family and CG assistance Time Time In: 900 Time Out: 1030 DATE: Mar 26, 2023 Total Billed Treatment Time: 90 Total Billed Treatment 90 min 1 visit EX x 1 FA x 2 GT x 3 RAMESH GAVIN PT Mar 26, 2023 13:25
--- NOTE | 2023-03-26 14:31 | Physical Therapy Progress Note ---
Therapy Progress Note Pt will require a w/c upon d/c. The pt has a mobility limitation that significantly impairs her ability to complete one or more mobility-related activities of daily living in the home. The pts mobility limitations can not be helped with a SPC or FWW. The pt has enough room in their residence to safely utilize the w/c. The pt can safely use the w/c on her own. RAMESH GAVIN PT Mar 26, 2023 14:31
[2023-03-26 20:30] VITALS: BP 135/69
[2023-03-26] MEDS: QUEtiapine IMMEDIATE RELEASE 25 MG TABLET PO SCH (20:48)
[2023-03-26] MEDS: DONEPEZIL 5 MG TABLET PO SCH (20:48)
--- NOTE | 2023-03-27 05:27 | PM&R Progress Note ---
Subjective HPI/CC On Admission Date Seen by Provider: Mar 27, 2023 Time Seen by Provider: 12:00 Subjective/Events-last exam 03/27/2023: Patient doing well Set for discharge on Thursday No falls No pain 03/26/2023: No major issues Increasing strength Monitoring closely No falls 03/25/2023: Patient doing well No pain is reported Walking better Working on balance 03/24/2023: Doing well Improved balance PT OT participation is good Eating well BM+ 03/23/2023: Doing better Working with therapy No falls No pain reported 03/22/2023: Patient doing well Asking to go home already Moving around fairly well but slow Fall risk prevention Balance is an issue Labs reviewed Review of Systems General: Fatigue, Malaise Objective Exam Vital Signs Vital Signs Date Time Temp Pulse Resp B/P (MAP) Pulse Ox O2 Delivery O2 Flow Rate FiO2 03/27/23 19:53 35.8 73 20 156/73 (100) 94 Room Air 03/22/23 09:11 0.00 Capillary Refill : General Appearance: No Apparent Distress, WD/WN, Chronically ill HEENT: PERRL/EOMI, Normal ENT Inspection, Pharynx Normal Neck: Full Range of Motion, Normal Inspection, Non Tender, Supple, Carotid Bruit Respiratory: Chest Non Tender, Lungs Clear, Normal Breath Sounds, No Accessory Muscle Use, No Respiratory Distress Cardiovascular: Regular Rate, Rhythm, No Edema, No Gallop, No JVD, No Murmur, Normal Peripheral Pulses, Bradycardia Gastrointestinal: Normal Bowel Sounds, No Organomegaly, No Pulsatile Mass, Non Tender, Soft Back: Normal Inspection, No CVA Tenderness, No Vertebral Tenderness Extremity: Normal Capillary Refill, Normal Inspection, Normal Range of Motion, Non Tender, No Calf Tenderness, No Pedal Edema Neurologic/Psychiatric: Alert, Oriented x3, division chief II-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 FIM Transfers Therapy Code Descriptions/Definitions Functional [place] Measure: 0=Not Assessed/NA 4=Minimal Assistance 1=Total Assistance 5=Supervision or Setup 2=Maximal Assistance 6=Modified [place] 3=Moderate Assistance 7=Complete IndependenceSCALE: Activities may be completed with or without assistive devices. 4-Hchwwymsjd-acugqxb completes the activity by him/herself with no assistance from a helper. 5-Set-up or Clean-up Assistance-helper sets up or cleans up; patient completes activity. [place] assists only prior to or following the activity. 4-Supervision or Touching Assistance-helper provides verbal cues and/or touching/steadying and/or contact guard assistance as patient completes a ctivity. Assistance may be provided throughout the activity or intermittently. 3-Partial/Moderate Assistance-helper does LESS THAN HALF the effort. [place] lifts, holds or supports trunk or limbs, but provides less than half the effort. 2-Substantial/Maximal Assistance-helper does MORE THAN HALF the effort. [place] lifts or holds trunk or limbs and provides more than half the effort. 1-Bgjokeukx-cwsraf does ALL the effort. Patient does none of the effort to complete the activity. Or, the assistance of 2 or more helpers is required for the patient to complete the activity. If activity was not attempted, code reason: 7-Patient Refused. 9-Not Applicable-not attempted and the patient did not perform the activity before the current illness, exacerbation or injury. 10-Not Attempted due to Environmental Limitations-(lack of equipment, weather restraints, etc.). 88-Not Attempted due to Medical Conditions or Safety Concerns. Roll Left to Right (QC): 4 (SBA ) Sit to Lying (QC): 4 (SBA ) Sit to Stand (QC): 4 Chair/Rwy-yf-Hpfnz Xfer(QC): 4 Car Transfer (QC): 3 (Min A ) Gait Training Does the Patient Walk?: Yes Walk 10 feet (QC): 4 Walk 50 ft with 2 Turns(QC): 4 Walk 150 ft (QC): 88 Walking 10ft/uneven surface-QC: 3 (Min A for safety ) Gait Persons Needed: 1 Gait Assistive Device: FWW Wheelchair Training Does the Pt Use a Wheelchair?: Yes Distance: 150ft Wheel 50 ft with 2 turns (QC): 4 Wheel 150 ft (QC): 4 Type of Wheelchair: Manual Stair Training #of Steps: 4 1 Step (curb) (QC): 3 (Min A ) 4 Steps (QC): 3 (Min A ) 12 Steps (QC): 9 (Pt did not complete 12 steps at PLOF ) Balance Picking up an Object (QC): 4 (CGA with mixed crop and livestock farmer ) ADL-Treatment Eating (QC): 6 Oral Hygiene (QC): 6 (seated) Shower/Bathe Self (QC): 3 (Assist washing/drying buttocks for thoroughness) Upper Body Dressing (QC): 5 Lower Body Dressing (QC): 4 (SBA for safety in standing) On/Off Footwear (QC): 5 Toileting Hygiene (QC): 4 (SBA with urination only. Pt able to manage clothing and perform hygiene post urination.) Toilet Transfer (QC): 4 (SBA for safety on/off toilet.) Assessment/Plan Assessment and Plan Assess & Plan/Chief Complaint Assessment: Heart failure due to severe sinus bradycardia causing syncope Dementia DM HTN HLP Fall risk Advanced age Plan: PT OT Home meds Monitor closely 03/22/2023: Supportive care Therapy tomorrow 03/23/2023: Continue aggressive rehab Monitor for falls 03/24/2023: Continue aggressive rehab Fall risk prevention 03/25/2023: Supportive care Monitor closely 03/26/2023: Aggressive therapy No falls 03/27/2023: Supportive care Monitor closely (1) Severe sinus bradycardia ERUM SANTANA DO Mar 27, 2023 05:27
[2023-03-27] MEDS: LEVOTHYROXINE 75 MCG TABLET PO SCH (05:33)
[2023-03-27] MEDS: ENOXAPARIN 40 MG/0.4 ML SYRINGE SC SCH (05:33)
[2023-03-27] MEDS: inSUlin ASPART 1 UNIT/0.01 ML (PER UNIT) SC SCH ×4 (05:33→21:55)
[2023-03-27] MEDS: glipiZIDE 5 MG TABLET PO SCH (06:42)
[2023-03-27 07:40] VITALS: BP 132/63
--- NOTE | 2023-03-27 08:24 | Occupational Ther Daily Note ---
OT Current Status-Daily Note Subjective Pt in bed eating breakfast, agreeable to OT Tx. She believes the year is 2002, month July. Mental Status/Objective Patient Orientation: Person, Confused, Place ADL-Treatment Therapy Code Descriptions/Definitions Functional [place] Measure: 0=Not Assessed/NA 4=Minimal Assistance 1=Total Assistance 5=Supervision or Setup 2=Maximal Assistance 6=Modified [place] 3=Moderate Assistance 7=Complete IndependenceSCALE: Activities may be completed with or without assistive devices. 7-Rdkzufqwib-zpodtrt completes the activity by him/herself with no assistance from a helper. 5-Set-up or Clean-up Assistance-helper sets up or cleans up; patient completes activity. [place] assists only prior to or following the activity. 4-Supervision or Touching Assistance-helper provides verbal cues and/or touching/steadying and/or contact guard assistance as patient completes activity. Assistance may be provided throughout the activity or intermittently. 3-Partial/Moderate Assistance-helper does LESS THAN HALF the effort. [place] lifts, holds or supports trunk or limbs, but provides less than half the effort. 2-Substantial/Maximal Assistance-helper does MORE THAN HALF the effort. [place] lifts or holds trunk or limbs and provides more than half the effort. 1-Ufmhfkyug-xwcaku does ALL the effort. Patient does none of the effort to complete the activity. Or, the assistance of 2 or more helpers is required for the patient to complete the activity. If activity was not attempted, code reason: 7-Patient Refused. 9-Not Applicable-not attempted and the patient did not perform the activity before the current illness, exacerbation or injury. 10-Not Attempted due to Environmental Limitations-(lack of equipment, weather restraints, etc.). 88-Not Attempted due to Medical Conditions or Safety Concerns. Eating (QC): 6 (able to open containers and cut food) Oral Hygiene (QC): 6 (seated) Shower/Bathe Self (QC): 5 (set up/clean up of shower area. Pt able to wash/dry all parts seated on SC and utilizing GBs in stand.) Upper Body Dressing (QC): 5 Lower Body Dressing (QC): 5 (Pt able to doff/don pants after set up of materials, utilizing GBs/FWW in standing. No LOB noted.) On/Off Footwear: 5 Toileting Hygiene (QC): 6 (Pt able to perform pericare and posterior hygiene seated, and manage clothing while standing at GBs/FWW with no LOB noted.) Toilet Transfer (QC): 6 (IND on/off toilet utilizing GBs and FWW.) Other Treatment Pt in bed, transferred supine to sit EOB, IND. Pt donned shoes at EOB, set up assist. Pt stood from EOB, SBA, then used FWW to perform functional mobility to toilet, SBA. Pt sat onto toilet, IND, no VCs required for hand placement or safety. pt completed toileting independently, doffed brief, then transferred to SC. Pt doffed shoes and gown, then completed shower after set up assist. Pt dried off, then donned clothes with set up assist. Pt had no LOB noted during ADLs, while using GBs and FWW in stand for clothing management. Pt used FWW to transfer to w/c, SBA, mod VCs required for UE placement for safety during stand to sit transfer. OT provided education on correct sequence of transfer with demonstration, she verbalized understanding. Pt sat at sink to complete grooming tasks, IND. Pt transferred from w/c to recliner, SBA, mod VCs required for safety and correct sequencing of UE placement with stand to sit transfer. Poor carryover noted within tx session on safety with transfers. Post tx, pt in recliner, call light in reach and all needs met. chair alarm activated. Education OT Patient Education: Correct positioning, Energy conservation, Modified ADL techniques, Progress toward Goal/Update tx plan, Purpose of tx/functional activities, Rehab process Teaching Recipient: Patient Teaching Methods: Discussion Response to Teaching: Verbalize Understanding BIMS CAM BIMS Expression of Ideas and Wants: Without Difficulty Understanding Verbal Content: Usually Understands ([place]) IRF KEV BIMS: IRF KEV BIMS Response (Comments) Value Repitition of Three Words Three 3 Recalls Socks Yes, No Cue Required 2 Recalls Blue Yes, No Cue Required 2 Recalls Bed No, Could Not Recall 0 Year Missed by 5 Yrs/No Answer (2002) 0 Month Missed by 1 Mo/No Answer (July) 0 Day Correct (Thursday) 1 Total 8 Should Staff Asses. Mental St.: No CAM Mental Status Change/Baseline: 0 Inattention: 0 Disorganized thinkin Altered level of consciousness: 0 OT Detention Goals Detention Goals Time Frame: Apr 10, 2023 Acute change in mental status: 0 Inattention: 0 Disorganized thinkin Altered level of consciousness: 0 Eating (QC): 6 (met) Oral Hygiene (QC): 6 (met) Toileting Hygiene (QC): 6 (met) Shower/Bathe Self (QC): 4 (met) Upper Body Dressing (QC): 6 (not met, set up) Lower Body Dressing (QC): 6 (not met, set up) On/Off Footwear (QC): 6 (not met, set up) Additional Goals: 1-Demonstrate ADL Tasks, 2-Verbalize Understanding, 3- ImproveStrength/Nilsa 1=Demonstrate adherence to instructed precautions during ADL tasks. 2=Patient will verbalize/demonstrate understanding of assistive devices/modifications for ADL. 3=Patient will improve strength/tolerance for activity to enable patient to perform ADL's. OT Education/Plan Problem List/Assessment Assessment: Decreased Activ Tolerance, Decreased Safety Aware, Decreased UE Strength, Impaired Funct Balance, Impaired I ADL's, Impaired Self-Care Skills Discharge Recommendations Plan/Recommendations: Continue POC Treatment Plan/Plan of Care Patient would benefit from OT for education, treatment and training to promote independence in ADL's, mobility, safety and/or upper extremity function for ADL's. Plan of Care: ADL Retraining, Caregiver Training, Functional Mobility, Group Exercise/Act as Ind, UE Funct Exercise/Act Treatment Duration: Apr 10, 2023 Frequency: At least 5 of 7 days/Wk (IRF) Estimated Hrs Per Day: Other (75 mins per day) Agreement: Yes Rehab Potential: Fair Time Start Time: 07:25 Stop Time: 08:25 DATE: Mar 27, 2023 Total Time Billed (hr/min): 60 Billed Treatment Time 1, ADL 4 COLTON PIERRE OT Mar 27, 2023 08:24
[2023-03-27] MEDS: inSUlin DETERMIR 1 UNIT/0.01 ML (CHARGE PER UNIT) SQ SCH ×2 (08:35→21:55)
[2023-03-27] MEDS: busPIRone 10 MG TABLET PO SCH ×2 (08:35→21:55)
[2023-03-27] MEDS: ASPIRIN 81 MG CHEWABLE TABLET PO SCH (08:35)
[2023-03-27] MEDS: LevETIRAcetam 500 MG TABLET PO SCH ×2 (08:36→21:55)
[2023-03-27] MEDS: SERTRALINE 100 MG TABLET PO SCH (08:36)
[2023-03-27] MEDS: LOSARTAN 50 MG TABLET PO SCH (08:36)
[2023-03-27] MEDS: amLODIPine 5 MG TABLET PO SCH (08:36)
[2023-03-27] MEDS: CLOPIDOGREL 75 MG TABLET PO SCH (08:36)
[2023-03-27] MEDS: SENNOSIDES 8.6 MG TABLET PO SCH ×2 (08:40→21:55)
[2023-03-27] MEDS: DOCUSATE SODIUM 100 MG CAPSULE PO SCH ×2 (08:40→21:55)
--- NOTE | 2023-03-27 11:54 | Occupational Ther Daily Note ---
OT Current Status-Daily Note Subjective [place] with PT for scheduled family training. Pt's family did not show up to unit for scheduled training, and did not answer phone call. ADL-Treatment Therapy Code Descriptions/Definitions Functional [place] Measure: 0=Not Assessed/NA 4=Minimal Assistance 1=Total Assistance 5=Supervision or Setup 2=Maximal Assistance 6=Modified [place] 3=Moderate Assistance 7=Complete IndependenceSCALE: Activities may be completed with or without assistive devices. 0-Luhcqahffe-wdhdqch completes the activity by him/herself with no assistance from a helper. 5-Set-up or Clean-up Assistance-helper sets up or cleans up; patient completes activity. [place] assists only prior to or following the activity. 4-Supervision or Touching Assistance-helper provides verbal cues and/or touching/steadying and/or contact guard assistance as patient completes activity. Assistance may be provided throughout the activity or intermittently. 3-Partial/Moderate Assistance-helper does LESS THAN HALF the effort. [place] lifts, holds or supports trunk or limbs, but provides less than half the effort. 2-Substantial/Maximal Assistance-helper does MORE THAN HALF the effort. [place] lifts or holds trunk or limbs and provides more than half the effort. 3-Liatkvvvd-ibfpjj does ALL the effort. Patient does none of the effort to complete the activity. Or, the assistance of 2 or more helpers is required for the patient to complete the activity. If activity was not attempted, code reason: 7-Patient Refused. 9-Not Applicable-not attempted and the patient did not perform the activity before the current illness, exacerbation or injury. 10-Not Attempted due to Environmental Limitations-(lack of equipment, weather restraints, etc.). 88-Not Attempted due to Medical Conditions or Safety Concerns. Other Treatment OT/PT [place] due to skill of 2 clinicians required which a clinical rehab liaison could not perform to focus on activity tolerance,strength, and mobility, and for scheduled family training. OT focused on UE placement, cues for sequencing and safety, PT focused on LE placement, gross overall movement, transfers and mobility. Pt's daughter did not show up to unit for scheduled family training. Phone call with daughter, Anne-Marie, attempted, but she did not answer the phone call, thus family training not performed on this date. Pt stood at sink to complete hand hygiene and hair brushing. Pt then performed functional mobility to therapy gym. Post tx, pt in therapy gym with PT, all needs met. Education OT Patient Education: Correct positioning, Energy conservation, Modified ADL techniques, Progress toward Goal/Update tx plan, Purpose of tx/functional activities, Rehab process Teaching Recipient: Patient Teaching Methods: Discussion Response to Teaching: Verbalize Understanding OT Autotransfusionist Goals Autotransfusionist Goals Time Frame: Apr 10, 2023 Acute change in mental status: 0 Inattention: 0 Disorganized thinkin Altered level of consciousness: 0 Eating (QC): 6 (met) Oral Hygiene (QC): 6 (met) Toileting Hygiene (QC): 6 (met) Shower/Bathe Self (QC): 4 (met) Upper Body Dressing (QC): 6 (not met, set up) Lower Body Dressing (QC): 6 (not met, set up) On/Off Footwear (QC): 6 (not met, set up) Additional Goals: 1-Demonstrate ADL Tasks, 2-Verbalize Understanding, 3- ImproveStrength/Nilsa 1=Demonstrate adherence to instructed precautions during ADL tasks. 2=Patient will verbalize/demonstrate understanding of assistive devices/modifications for ADL. 3=Patient will improve strength/tolerance for activity to enable patient to perform ADL's. OT Education/Plan Problem List/Assessment Assessment: Decreased Activ Tolerance, Decreased Safety Aware, Decreased UE Strength, Impaired Funct Balance, Impaired I ADL's, Impaired Self-Care Skills Discharge Recommendations Plan/Recommendations: Continue POC Treatment Plan/Plan of Care Patient would benefit from OT for education, treatment and training to promote independence in ADL's, mobility, safety and/or upper extremity function for ADL's. Plan of Care: ADL Retraining, Caregiver Training, Functional Mobility, Group Exercise/Act as Ind, UE Funct Exercise/Act Treatment Duration: Apr 10, 2023 Frequency: At least 5 of 7 days/Wk (IRF) Estimated Hrs Per Day: Other (75 mins per day) Agreement: Yes Rehab Potential: Fair Time Start Time: 10:00 Stop Time: 10:15 DATE: Mar 27, 2023 Total Time Billed (hr/min): 15 Billed Treatment Time [place] x15' 1, ADL COLTON PIERRE OT Mar 27, 2023 11:54
--- NOTE | 2023-03-27 14:35 | Physical Therapy Daily Note ---
PT Daily Note-Current Subjective Pt reports she is doing well today and is agreeable to PT. Pt denies pain. Pain Numeric Pain Scale: 0-No Pain Location: No Pain Reported Section J - Health Conditions 1. Rarely or not at all 2. Occasionally 3. Frequently 4. Almost constantly 8. Unable to answer Pain Effect on Sleep: 1 Pain Interference with Therapy: 1 Pain Interference w/Day-to-Day: 1 Transfers SCALE: Activities may be completed with or without assistive devices. 2-Pgxkkzvvrk-rfjvkiy completes the activity by him/herself with no assistance from a helper. 5-Set-up or Clean-up Assistance-helper sets up or cleans up; patient completes activity. [place] assists only prior to or following the activity. 4-Supervision or Touching Assistance-helper provides verbal cues and/or touching/steadying and/or contact guard assistance as patient completes activity. Assistance may be provided throughout the activity or intermittently. 3-Partial/Moderate Assistance-helper does LESS THAN HALF the effort. [place] lifts, holds or supports trunk or limbs, but provides less than half the effort. 2-Substantial/Maximal Assistance-helper does MORE THAN HALF the effort. [place] lifts or holds trunk or limbs and provides more than half the effort. 3-Gdfqeepzm-fwjtba does ALL the effort. Patient does none of the effort to complete the activity. Or, the assistance of 2 or more helpers is required for the patient to complete the activity. If activity was not attempted, code reason: 7-Patient Refused. 9-Not Applicable-not attempted and the patient did not perform the activity b efore the current illness, exacerbation or injury. 10-Not Attempted due to Environmental Limitations-(lack of equipment, weather restraints, etc.). 88-Not Attempted due to Medical Conditions or Safety Concerns. Roll Left & Right (QC): 6 Sit to Lying (QC): 6 Lying to Sitting/Side of Bed(Q: 6 Sit to Stand (QC): 6 Chair/Uix-rq-Hcjwm Xfer(QC): 6 Toilet Transfer (QC): 6 Car Transfer (QC): 6 Weight Bearing Right Lower Extremity: Right Full Weight Bearing Left Lower Extremity: Left Full Weight Bearing Gait Training Does the Patient Walk?: Yes Walk 10 feet (QC): 4 Walk 50 ft with 2 Turns(QC): 4 Walk 150 ft (QC): 9 Walking 10ft/uneven surface-QC: 4 Gait Persons Needed: 1 Gait Assistive Device: FWW Wheelchair Training Does the Pt Use a Wheelchair?: Yes Wheel 50 ft with 2 turns (QC): 6 Wheel 150 ft (QC): 6 Type of Wheelchair: Manual Stair Training #of Steps: 4 1 Step (curb) (QC): 4 4 Steps (QC): 4 12 Steps (QC): 9 Stairs: Pattern: Step to Balance Picking up an Object (QC): 5 Special Test Comments [facility] standing balance scale = 3+/5 Treatments QCs completed on this date. Pt completed bed mobility and functional transfers with Mod I. Pt is Mod I with w/c mobility. Pt ambulated 30ft, 80ft, 70ft x 2, 65ft, and 60ft x 2. Pt completed 4 steps with CGA/SBA. Co-tx with OT for scheduled family training. PT/OT co-tx ([id number]) due to skill of 2 clinicians required which a rehabilitation counsellor could not perform to focus on activity tolerance,strength, and mobility, and for scheduled family training. PT focused on LE placement, gross overall movement, transfers and mobility, while OT focused on UE placement, cues for sequencing and safety. Pt's daughter did not show up to unit for scheduled family training. Phone call with daughter, Anne-Marie, attempted, but she did not answer the phone call, thus family training not performed on this date. Pt stood at sink to complete hand hygiene and hair brushing for ~ 5 min. Pt then completed 22 min on the nu-step on level 3. Pt completed seated B LE Ther Ex x 20 reps each with the red Tband. After treatment, pt sitting in the recliner with call light in reach and all needs met. Assessment Current Status: Good Progress Pt tolerated PT well with good effort. Pt progressed well and has met all set goals and plans to d/c home with family and CG assistance on 03/29/23 PT Snf Goals Snf Goals PT Snf Goals Time Frame: Apr 04, 2023 Roll Left & Right (QC): 6 (Pt will be Mod I with bed mobility and functional transfers. ) Sit to Lying (QC): 6 (Pt will be Mod I with bed mobility and functional transfers. ) Lying-Sitting on Side/Bed(QC): 6 (Pt will be Mod I with bed mobility and fu nctional transfers. ) Sit to Stand (QC): 6 (Pt will be Mod I with bed mobility and functional transfers. ) Chair/Vri-tp-Ucdbo Xfer(QC): 6 (Pt will be Mod I with bed mobility and functional transfers. ) Toilet Transfer (QC): 6 (Pt will be Mod I with bed mobility and functional transfers. ) Car Transfer (QC): 6 (Pt will be Mod I with bed mobility and functional transfers. ) Does the Patient Walk: Yes Walk 10 feet (QC): 4 (Pt will be SBA for walking with the FWW, up to 50ft. ) Walk 50ft with 2 Turns (QC): 4 (Pt will be SBA for walking with the FWW, up to 50ft. ) Walk 150 ft (QC): 9 (Pt did not walk longer distances at PLOF. ) Walking 10ft on Uneven Surface: 4 (Pt will be SBA for walking with the FWW, up to 50ft. ) 1 Step (curb) (QC): 4 (SBA for stairs ) 4 Steps (QC): 4 (SBA for stairs ) 12 Steps (QC): 9 (Pt did not complete 12 steps at PLOF ) Picking up an Object (QC): 5 (set-up with parimutuel cashier ) Does the Pt use WC or Scooter?: Yes Wheel 50 feet with 2 turns (QC: 6 (Mod I with w/c mobility ) Type: Manual Wheel 150 feet: 6 (Mod I with w/c mobility ) Type: Manual PT Plan Problem List Problem List: Activity Tolerance, Functional Strength, Safety, Balance, Gait, Transfer, Bed Mobility, ROM Treatment/Plan Treatment Plan: Continue Plan of Care Treatment Plan: Bed Mobility, Education, Functional Activity Nilsa, Functional Strength, Group Therapy, Gait, Safety, Therapeutic Exercise, Transfers Treatment Duration: Apr 04, 2023 Frequency: At least 5 of 7 days/Wk (IRF) Estimated Hrs Per Day: 1.5 hours per day Patient and/or Family Agrees t: Yes Safety Risks/Education Patient Education: Gait Training, Transfer Techniques, Steps, Correct Positioning, W/C Management, Safety Issues Teaching Recipient: Patient Teaching Methods: Demonstration, Discussion Response to Teaching: Verbalize Understanding, Return Demonstration, Reinforcement Needed Discharge Recommendations Therapy Discharge Recommendati: Intermittent Supervision, Home & Family, Post Acute PT Equpiment Recommendations-D/C: Manual Wheelchair Discharge Status/Home Program Cont per POC Barriers to Progress Weakness/endurance Target Placement Pt plans to d/c home with family and CG assistance on 03/29/23 Time Time In: 930 Time Out: 1100 DATE: Mar 27, 2023 Total Billed Treatment Time: 90 Total Billed Treatment 90 min total from [id number]; co-tx for 15 min from [id number] 1 visit EX x 1 FA x 2 GT x 3 RAMESH GAVIN PT Mar 27, 2023 14:34
--- NOTE | 2023-03-27 15:12 | Speech Therapy Daily Note ---
Speech Daily Progress Note Subjective Date Seen by Provider: Mar 27, 2023 Time Seen by Provider: 11:15 The pt was alert and interactive throughout session, no new complaints. Objective The pt was able to recall use of nursing call light independently at 100% accuracy, 2/2 sessions met. Functional money handling was targeted. The pt counted bills for 1's,5's, 10's and 20's to sums named by DECK AND HULL ASSEMBLER with 90% accuracy. All sums required mixed bill amounts to achieve total. The pt has able to maintain set to task, and recall sum amount throughout counting with 80% accuracy, occasional cues required. The pt was oriented to self, time (month) and place without assistance needed. Assessment Assessment Current Status: Good Progress Treatment Plan Discontinue ST Speech Electrical Prospecting Supervisor Goals [facility] Goals The pt will demonstrate use of memory strategies for functional daily skills with min assist provided. Time Frame: 7 days Speech-Plan Patient/Family Goals Patient/Family Goals: The pt was able to indendently recall use of call light, maintain orientation, and participate in basic functional problem solving activities with good accuracy. Goal met. Treatment Plan Speech Therapy Treatment Plan: Discontinue ST Treatment Duration: Mar 23, 2023 Frequency: At least 5 of 7 days/Wk (IRF) Estimated Hrs Per Day: .5 hour per day Rehab Potential: Fair Time Speech Therapy Time In: 11:15 Speech Therapy Time Out: 11:45 DATE: Mar 27, 2023 Total Billed Time: 30 Billed Treatment Time 1 PEGGY REES Mar 27, 2023 15:12
--- NOTE | 2023-03-27 15:15 | Therapy Team Discharge Summary ---
Therapy Discharge Summary Discharge Recommendations Date of Discharge Physical Therapy Roll Left to Right (QC): 6 Sit to Lying (QC): 6 Lying to Sitting/Side of Bed(Q: 6 Sit to Stand (QC): 6 Chair/Shl-xt-Zcntp Xfer(QC): 6 Toilet Transfer (QC): 6 Car Transfer (QC): 6 Does the Patient Walk: Yes Mode of Locomotion: Both Anticipated Mode of Locomotion: Both Walk 10 feet (QC): 4 Walk 50 ft with 2 Turns(QC): 4 Walk 150 ft (QC): 9 Walking 10ft on uneven surface: 4 Distance: 55ft Gait Assistive Device: FWW Does the Pt Use a Wheelchair: Yes Wheelchair Distance: 150ft Wheel 50 ft with 2 turns (QC): 6 Wheel 150 ft (QC): 6 Type of Wheelchair: Manual #of Steps: 4 1 Step (curb) (QC): 4 4 Steps (QC): 4 12 Steps (QC): 9 Walking Assistive Device: Walker Balance Sitting Static: Good Balance Sitting Dynamic: Good Balance-Standing Static: Fair Picking up an Object (QC): 5 Occupational Therapy Decreased Activ Tolerance, Decreased Safety Aware, Decreased UE Strength, Impaired Funct Balance, Impaired I ADL's, Impaired Self-Care Skills Eating (QC): 6 (able to open containers and cut food) Oral Hygiene (QC): 6 (seated) Shower/Bathe Self (QC): 5 (set up/clean up of shower area. Pt able to wash/dry all parts seated on SC and utilizing GBs in stand.) Upper Body Dressing (QC): 5 Lower Body Dressing (QC): 5 (Pt able to doff/don pants after set up of materials, utilizing GBs/FWW in standing. No LOB noted.) On/Off Footwear (QC): 5 Toileting Hygiene (QC): 6 (Pt able to perform pericare and posterior hygiene seated, and manage clothing while standing at GBs/FWW with no LOB noted.) Speech-Language Pathology The pt demonstrated benefit from use of spaced retrieval strategy to independently recall use of call light. Orientation to self, time and place remained consistent x3 days. The pt completed simple functional problem solving with good accuracy by end of episode, at 80% accuracy for functional money isaac ndling. PT Health And Safety Instructor Goals Health And Safety Instructor Goals PT Health And Safety Instructor Goals Time Frame: Apr 04, 2023 Roll Left to Right (QC): 6 (Pt will be Mod I with bed mobility and functional transfers. ) Sit to Lying (QC): 6 (Pt will be Mod I with bed mobility and functional transfers. ) Lying-Sitting on Side/Bed(QC): 6 (Pt will be Mod I with bed mobility and functional transfers. ) Sit to Stand (QC): 6 (Pt will be Mod I with bed mobility and functional transfers. ) Chair/Hpx-lb-Bcgbi Xfer(QC): 6 (Pt will be Mod I with bed mobility and functional transfers. ) Toilet/Commode Transfer (QC): 6 (Pt will be Mod I with bed mobility and functional transfers. ) Car Transfer (QC): 6 (Pt will be Mod I with bed mobility and functional transfers. ) Does the Patient Walk: Yes Walk 10 feet (QC): 4 (Pt will be SBA for walking with the FWW, up to 50ft. ) Walk 10ft-Uneven Surface(QC): 4 (Pt will be SBA for walking with the FWW, up to 50ft. ) Walk 50ft with 2 Turns (QC): 4 (Pt will be SBA for walking with the FWW, up to 50ft. ) Walk 150 ft (QC): 9 (Pt did not walk longer distances at PLOF. ) Does the Pt use WC or Scooter?: Yes Wheel 50 feet with 2 turns (QC: 6 (Mod I with w/c mobility ) Type: Manual Wheel 150 feet: 6 (Mod I with w/c mobility ) Type: Manual 1 Step (curb) (QC): 4 (SBA for stairs ) 4 Steps (QC): 4 (SBA for stairs ) 12 Steps (QC): 9 (Pt did not complete 12 steps at PLOF ) Picking up an Object (QC): 5 (set-up with school psychometrist ) OT Jail Goals Jail Goals Time Frame: Apr 10, 2023 Acute change in mental status: 0 Inattention: 0 Disorganized thinkin Altered level of consciousness: 0 Eating (QC): 6 (met) Oral Hygiene (QC): 6 (met) Toileting Hygiene (QC): 6 (met) Shower/Bathe Self (QC): 4 (met) Upper Body Dressing (QC): 6 (not met, set up) Lower Body Dressing (QC): 6 (not met, set up) On/Off Footwear (QC): 6 (not met, set up) Additional Goals: 1-Demonstrate ADL Tasks, 2-Verbalize Understanding, 3- ImproveStrength/Nilsa 1=Demonstrate adherence to instructed precautions during ADL tasks. 2=Patient will verbalize/demonstrate understanding of assistive devices/modifications for ADL. 3=Patient will improve strength/tolerance for activity to enable patient to perform ADL's. Speech Jail Goals Health And Safety Instructor Goals The pt will demonstrate use of memory strategies for functional daily skills with min assist provided. Time Frame: 7 days PEGGY BLACKMON Mar 27, 2023 15:14
[2023-03-27 19:53] VITALS: BP 156/73
[2023-03-27] MEDS: QUEtiapine IMMEDIATE RELEASE 25 MG TABLET PO SCH (21:55)
[2023-03-27] MEDS: DONEPEZIL 5 MG TABLET PO SCH (21:55)
[2023-03-28] MEDS: glipiZIDE 5 MG TABLET PO SCH (06:01)
[2023-03-28] MEDS: LEVOTHYROXINE 75 MCG TABLET PO SCH (06:01)
[2023-03-28] MEDS: ENOXAPARIN 40 MG/0.4 ML SYRINGE SC SCH (06:01)
[2023-03-28] MEDS: inSUlin ASPART 1 UNIT/0.01 ML (PER UNIT) SC SCH ×4 (06:03→20:48)
[2023-03-28 08:12] VITALS: BP 136/60
[2023-03-28] MEDS: amLODIPine 5 MG TABLET PO SCH (09:01)
[2023-03-28] MEDS: CLOPIDOGREL 75 MG TABLET PO SCH (09:01)
[2023-03-28] MEDS: ASPIRIN 81 MG CHEWABLE TABLET PO SCH (09:02)
[2023-03-28] MEDS: SERTRALINE 100 MG TABLET PO SCH (09:02)
[2023-03-28] MEDS: LOSARTAN 50 MG TABLET PO SCH (09:03)
[2023-03-28] MEDS: busPIRone 10 MG TABLET PO SCH ×2 (09:03→20:44)
[2023-03-28] MEDS: LevETIRAcetam 500 MG TABLET PO SCH ×2 (09:03→20:44)
[2023-03-28] MEDS: DOCUSATE SODIUM 100 MG CAPSULE PO SCH ×2 (09:04→20:48)
[2023-03-28] MEDS: SENNOSIDES 8.6 MG TABLET PO SCH ×2 (09:04→20:48)
[2023-03-28] MEDS: inSUlin DETERMIR 1 UNIT/0.01 ML (CHARGE PER UNIT) SQ SCH ×2 (09:04→20:44)
--- NOTE | 2023-03-28 10:00 | PM&R Progress Note ---
Subjective HPI/CC On Admission Date Seen by Provider: Mar 28, 2023 Time Seen by Provider: 10:00 Subjective/Events-last exam 03/28/2023: No major issues Set for DC tomorrow No falls No pain 03/27/2023: Patient doing well Set for discharge on Thursday No falls No pain 03/26/2023: No major issues Increasing strength Monitoring closely No falls 03/25/2023: Patient doing well No pain is reported Walking better Working on balance 03/24/2023: Doing well Improved balance PT OT participation is good Eating well BM+ 03/23/2023: Doing better Working with therapy No falls No pain reported 03/22/2023: Patient doing well Asking to go home already Moving around fairly well but slow Fall risk prevention Balance is an issue Labs reviewed Review of Systems General: Fatigue, Malaise Objective Exam Vital Signs Vital Signs Date Time Temp Pulse Resp B/P (MAP) Pulse Ox O2 Delivery O2 Flow Rate FiO2 03/28/23 09:10 Room Air 03/28/23 08:12 36.2 61 22 136/60 (85) 96 03/22/23 09:11 0.00 Capillary Refill : General Appearance: No Apparent Distress, WD/WN, Chronically ill HEENT: PERRL/EOMI, Normal ENT Inspection, Pharynx Normal Neck: Full Range of Motion, Normal Inspection, Non Tender, Supple, Carotid Bruit Respiratory: Chest Non Tender, Lungs Clear, Normal Breath Sounds, No Accessory Muscle Use, No Respiratory Distress Cardiovascular: Regular Rate, Rhythm, No Edema, No Gallop, No JVD, No Murmur, Normal Peripheral Pulses, Bradycardia Gastrointestinal: Normal Bowel Sounds, No Organomegaly, No Pulsatile Mass, Non Tender, Soft Back: Normal Inspection, No CVA Tenderness, No Vertebral Tenderness Extremity: Normal Capillary Refill, Normal Inspection, Normal Range of Motion, Non Tender, No Calf Tenderness, No Pedal Edema Neurologic/Psychiatric: Alert, Oriented x3, 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 FIM Transfers Therapy Code Descriptions/Definitions Functional [place] Measure: 0=Not Assessed/NA 4=Minimal Assistance 1=Total Assistance 5=Supervision or Setup 2=Maximal Assistance 6=Modified [place] 3=Moderate Assistance 7=Complete IndependenceSCALE: Activities may be completed with or without assistive devices. 4-Ietsyhgteb-ifoqayr completes the activity by him/herself with no assistance from a helper. 5-Set-up or Clean-up Assistance-helper sets up or cleans up; patient completes activity. Elizabeth assists only prior to or following the activity. 4-Supervision or Touching Assistance-helper provides verbal cues and/or touching/steadying and/or contact guard assistance as patient completes activity. Assistance may be provided throughout the activity or intermittently. 3-Partial/Moderate Assistance-helper does LESS THAN HALF the effort. Elizabeth lifts, holds or supports trunk or limbs, but provides less than half the effort. 2-Substantial/Maximal Assistance-helper does MORE THAN HALF the effort. Elizabeth lifts or holds trunk or limbs and provides more than half the effort. 0-Fdyaxaymr-aoescf does ALL the effort. Patient does none of the effort to complete the activity. Or, the assistance of 2 or more helpers is required for the patient to complete the activity. If activity was not attempted, code reason: 7-Patient Refused. 9-Not Applicable-not attempted and the patient did not perform the activity before the current illness, exacerbation or injury. 10-Not Attempted due to Environmental Limitations-(lack of equipment, weather restraints, etc.). 88-Not Attempted due to Medical Conditions or Safety Concerns. Roll Left to Right (QC): 6 Sit to Lying (QC): 6 Sit to Stand (QC): 6 Chair/Qdf-ou-Jwiqi Xfer(QC): 6 Car Transfer (QC): 6 Gait Training Does the Patient Walk?: Yes Walk 10 feet (QC): 4 Walk 50 ft with 2 Turns(QC): 4 Walk 150 ft (QC): 9 Walking 10ft/uneven surface-QC: 4 Gait Persons Needed: 1 Gait Assistive Device: FWW Wheelchair Training Does the Pt Use a Wheelchair?: Yes Distance: 150ft Wheel 50 ft with 2 turns (QC): 6 Wheel 150 ft (QC): 6 Type of Wheelchair: Manual Stair Training #of Steps: 4 1 Step (curb) (QC): 4 4 Steps (QC): 4 12 Steps (QC): 9 Stairs: Pattern: Step to Balance Picking up an Object (QC): 5 ADL-Treatment Eating (QC): 6 (able to open containers and cut food) Oral Hygiene (QC): 6 (seated) Shower/Bathe Self (QC): 5 (set up/clean up of shower area. Pt able to wash/dry all parts seated on SC and utilizing GBs in stand.) Upper Body Dressing (QC): 5 Lower Body Dressing (QC): 5 (Pt able to doff/don pants after set up of materials, utilizing GBs/FWW in standing. No LOB noted.) On/Off Footwear (QC): 5 Toileting Hygiene (QC): 6 (Pt able to perform pericare and posterior hygiene seated, and manage clothing while standing at GBs/FWW with no LOB noted.) Toilet Transfer (QC): 6 (IND on/off toilet utilizing GBs and FWW.) Assessment/Plan Assessment and Plan Assess & Plan/Chief Complaint Assessment: Heart failure due to severe sinus bradycardia causing syncope Dementia DM HTN HLP Fall risk Advanced age Plan: PT OT Home meds Monitor closely 03/22/2023: Supportive care Therapy tomorrow 03/23/2023: Continue aggressive rehab Monitor for falls 03/24/2023: Continue aggressive rehab Fall risk prevention 03/25/2023: Supportive care Monitor closely 03/26/2023: Aggressive therapy No falls 03/27/2023: Supportive care Monitor closely 03/28/2023: No major issues DC tomorrow (1) Severe sinus bradycardia ERUM SANTANA DO Mar 28, 2023 10:00
[2023-03-28 19:47] VITALS: BP 143/72
[2023-03-28] MEDS: DONEPEZIL 5 MG TABLET PO SCH (20:44)
[2023-03-28] MEDS: QUEtiapine IMMEDIATE RELEASE 25 MG TABLET PO SCH (20:44)
[2023-03-29] MEDS: inSUlin ASPART 1 UNIT/0.01 ML (PER UNIT) SC SCH ×4 (05:52→21:40)
[2023-03-29] MEDS: glipiZIDE 5 MG TABLET PO SCH (05:55)
[2023-03-29] MEDS: LEVOTHYROXINE 75 MCG TABLET PO SCH (05:55)
[2023-03-29] MEDS: ENOXAPARIN 40 MG/0.4 ML SYRINGE SC SCH (05:55)
[2023-03-29 07:40] VITALS: BP 127/63
[2023-03-29] MEDS: CLOPIDOGREL 75 MG TABLET PO SCH (08:15)
[2023-03-29] MEDS: SERTRALINE 100 MG TABLET PO SCH (08:15)
[2023-03-29] MEDS: inSUlin DETERMIR 1 UNIT/0.01 ML (CHARGE PER UNIT) SQ SCH ×2 (08:15→21:37)
[2023-03-29] MEDS: amLODIPine 5 MG TABLET PO SCH (08:15)
[2023-03-29] MEDS: LevETIRAcetam 500 MG TABLET PO SCH ×2 (08:16→21:37)
[2023-03-29] MEDS: DOCUSATE SODIUM 100 MG CAPSULE PO SCH ×2 (08:16→21:40)
[2023-03-29] MEDS: LOSARTAN 50 MG TABLET PO SCH (08:16)
[2023-03-29] MEDS: ASPIRIN 81 MG CHEWABLE TABLET PO SCH (08:16)
[2023-03-29] MEDS: busPIRone 10 MG TABLET PO SCH ×2 (08:16→21:37)
[2023-03-29] MEDS: SENNOSIDES 8.6 MG TABLET PO SCH ×2 (08:17→21:37)
--- NOTE | 2023-03-29 09:38 | PM&R Progress Note ---
Subjective HPI/CC On Admission Date Seen by Provider: Mar 29, 2023 Time Seen by Provider: 16:00 Subjective/Events-last exam 03/29/2023: Set for discharge tomorrow Transportation will be here Thursday No complaints 03/28/2023: No major issues Set for DC tomorrow No falls No pain 03/27/2023: Patient doing well Set for discharge on Thursday No falls No pain 03/26/2023: No major issues Increasing strength Monitoring closely No falls 03/25/2023: Patient doing well No pain is reported Walking better Working on balance 03/24/2023: Doing well Improved balance PT OT participation is good Eating well BM+ 03/23/2023: Doing better Working with therapy No falls No pain reported 03/22/2023: Patient doing well Asking to go home already Moving around fairly well but slow Fall risk prevention Balance is an issue Labs reviewed Review of Systems General: Fatigue, Malaise Objective Exam Vital Signs Vital Signs Date Time Temp Pulse Resp B/P (MAP) Pulse Ox O2 Delivery O2 Flow Rate FiO2 03/29/23 21:40 96 Room Air 03/29/23 19:07 35.8 63 18 136/72 (93) 0.00 0.00 Capillary Refill : General Appearance: No Apparent Distress, WD/WN, Chronically ill HEENT: PERRL/EOMI, Normal ENT Inspection, Pharynx Normal Neck: Full Range of Motion, Normal Inspection, Non Tender, Supple, Carotid Bruit Respiratory: Chest Non Tender, Lungs Clear, Normal Breath Sounds, No Accessory Muscle Use, No Respiratory Distress Cardiovascular: Regular Rate, Rhythm, No Edema, No Gallop, No JVD, No Murmur, Normal Peripheral Pulses, Bradycardia Gastrointestinal: Normal Bowel Sounds, No Organomegaly, No Pulsatile Mass, Non Tender, Soft Back: Normal Inspection, No CVA Tenderness, No Vertebral Tenderness Extremity: Normal Capillary Refill, Normal Inspection, Normal Range of Motion, Non Tender, No Calf Tenderness, No Pedal Edema Neurologic/Psychiatric: Alert, Oriented x3, 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 FIM Transfers Therapy Code Descriptions/Definitions Functional [place] Measure: 0=Not Assessed/NA 4=Minimal Assistance 1=Total Assistance 5=Supervision or Setup 2=Maximal Assistance 6=Modified [place] 3=Moderate Assistance 7=Complete IndependenceSCALE: Activities may be completed with or without assistive devices. 2-Jxcqdlmqae-bpvxach completes the activity by him/herself with no assistance from a helper. 5-Set-up or Clean-up Assistance-helper sets up or cleans up; patient completes activity. Paulina assists only prior to or following the activity. 4-Supervision or Touching Assistance-helper provides verbal cues and/or touching/steadying and/or contact guard assistance as patient completes activity. Assistance may be provided throughout the activity or intermittently. 3-Partial/Moderate Assistance-helper does LESS THAN HALF the effort. Paulina lifts, holds or supports trunk or limbs, but provides less than half the effort. 2-Substantial/Maximal Assistance-helper does MORE THAN HALF the effort. Paulina lifts or holds trunk or limbs and provides more than half the effort. 9-Avbnqazaz-fwobsa does ALL the effort. Patient does none of the effort to compl ete the activity. Or, the assistance of 2 or more helpers is required for the patient to complete the activity. If activity was not attempted, code reason: 7-Patient Refused. 9-Not Applicable-not attempted and the patient did not perform the activity before the current illness, exacerbation or injury. 10-Not Attempted due to Environmental Limitations-(lack of equipment, weather restraints, etc.). 88-Not Attempted due to Medical Conditions or Safety Concerns. Roll Left to Right (QC): 6 Sit to Lying (QC): 6 Sit to Stand (QC): 6 Chair/Edy-go-Preng Xfer(QC): 6 Car Transfer (QC): 6 Gait Training Does the Patient Walk?: Yes Walk 10 feet (QC): 4 Walk 50 ft with 2 Turns(QC): 4 Walk 150 ft (QC): 9 Walking 10ft/uneven surface-QC: 4 Gait Persons Needed: 1 Gait Assistive Device: FWW Wheelchair Training Does the Pt Use a Wheelchair?: Yes Distance: 150ft Wheel 50 ft with 2 turns (QC): 6 Wheel 150 ft (QC): 6 Type of Wheelchair: Manual Stair Training #of Steps: 4 1 Step (curb) (QC): 4 4 Steps (QC): 4 12 Steps (QC): 9 Stairs: Pattern: Step to Balance Picking up an Object (QC): 5 ADL-Treatment Eating (QC): 6 (able to open containers and cut food) Oral Hygiene (QC): 6 (seated) Shower/Bathe Self (QC): 5 (set up/clean up of shower area. Pt able to wash/dry all parts seated on SC and utilizing GBs in stand.) Upper Body Dressing (QC): 5 Lower Body Dressing (QC): 5 (Pt able to doff/don pants after set up of materials, utilizing GBs/FWW in standing. No LOB noted.) On/Off Footwear (QC): 5 Toileting Hygiene (QC): 6 (Pt able to perform pericare and posterior hygiene seated, and manage clothing while standing at GBs/FWW with no LOB noted.) Toilet Transfer (QC): 6 (IND on/off toilet utilizing GBs and FWW.) Assessment/Plan Assessment and Plan Assess & Plan/Chief Complaint Assessment: Heart failure due to severe sinus bradycardia causing syncope Dementia DM HTN HLP Fall risk Advanced age Plan: PT OT Home meds Monitor closely 03/22/2023: Supportive care Therapy tomorrow 03/23/2023: Continue aggressive rehab Monitor for falls 03/24/2023: Continue aggressive rehab Fall risk prevention 03/25/2023: Supportive care Monitor closely 03/26/2023: Aggressive therapy No falls 03/27/2023: Supportive care Monitor closely 03/28/2023: No major issues DC tomorrow 03/29/2023: Discharge Thursday when transportation available (1) Severe sinus bradycardia ERUM SANTANA DO Mar 29, 2023 09:38
[2023-03-29 19:07] VITALS: BP 136/72
[2023-03-29] MEDS: QUEtiapine IMMEDIATE RELEASE 25 MG TABLET PO SCH (21:37)
[2023-03-29] MEDS: DONEPEZIL 5 MG TABLET PO SCH (21:37)
[2023-03-30] MEDS ORDERED: INSU100I88 SQ (04:42)
--- NOTE | 2023-03-30 04:43 | Discharge Summary ---
Diagnosis/Chief Complaint Date of Admission Mar 21, 2023 at 10:30 Date of Discharge Discharge Date: Mar 30, 2023 Discharge Diagnosis Assessment: Heart failure due to severe sinus bradycardia causing syncope Dementia DM HTN HLP Fall risk Advanced age Plan: PT OT Home meds Monitor closely 03/22/2023: Supportive care Therapy tomorrow 03/23/2023: Continue aggressive rehab Monitor for falls 03/24/2023: Continue aggressive rehab Fall risk prevention 03/25/2023: Supportive care Monitor closely 03/26/2023: Aggressive therapy No falls 03/27/2023: Supportive care Monitor closely 03/28/2023: No major issues DC tomorrow 03/29/2023: Discharge Thursday when transportation available (1) Severe sinus bradycardia Discharge Summary Discharge Physical Examination Allergies: Coded Allergies: No Known Drug Allergies (Unverified , 06/05/20) Vitals & I&Os Vital Signs Date Time Temp Pulse Resp B/P (MAP) Pulse Ox O2 Delivery O2 Flow Rate FiO2 03/30/23 11:55 36.0 53 18 141/67 94 Room Air 0.00 General Appearance: Alert, Oriented X3, Cooperative Respiratory: Clear to Auscultation Cardiovascular: Regular Rate Psych/Mental Status: Mental Status NL Hospital Course Was the Problem List Reviewed?: Yes Hospital course: Patient had an uneventful hospital course after she was admitted from cardiac stepdown following an episode of bradycardia. Cardiology consulted no evidence of any requirement for pacemaker. Telemetry was maintained. Vitals remained stable lab work remained stable she was deemed stable for discharge after returning back to baseline function. Labs (last 24 hrs) Laboratory Tests 03/21/23 16:03: Glucometer 211H 03/21/23 20:11: Glucometer 219H 03/22/23 06:29: Glucometer 100 03/22/23 07:05: White Blood Count 8.3, Red Blood Count 4.22, Hemoglobin 12.0, Hematocrit 38, Mean Corpuscular Volume 89, Mean Corpuscular Hemoglobin 28, Mean Corpuscular Hemoglobin Concent 32, Red Cell Distribution Width 14.3, Platelet Count 215, Me an Platelet Volume 9.5, Immature Granulocyte % (Auto) 1, Neutrophils (%) (Auto) 71, Lymphocytes (%) (Auto) 20, Monocytes (%) (Auto) 6, Eosinophils (%) (Auto) 2, Basophils (%) (Auto) 1, Neutrophils # (Auto) 5.9, Lymphocytes # (Auto) 1.6, Monocytes # (Auto) 0.5, Eosinophils # (Auto) 0.2, Basophils # (Auto) 0.0, Immature Granulocyte # (Auto) 0.1, Sodium Level 140, Potassium Level 3.6, Chloride Level 107, Carbon Dioxide Level 24, Anion Gap 9, Blood Urea Nitrogen 15, Creatinine 0.94, Estimat Glomerular Filtration Rate 59, BUN/Creatinine Ratio 16, Glucose Level 113H, Calcium Level 8.6, Corrected Calcium 9.2, Total Wander irubin 0.4, Aspartate Amino Transf (AST/SGOT) 10, Alanine Aminotransferase (ALT/SGPT) 9, Alkaline Phosphatase 66, Total Protein 6.2L, Albumin 3.3 03/22/23 15:23: Glucometer 119H 03/22/23 21:02: Glucometer 125H 03/23/23 06:07: Glucometer 89 03/23/23 09:58: Glucometer 162H 03/23/23 11:06: Glucometer 121H 03/23/23 15:56: Glucometer 106 03/23/23 20:26: Glucometer 210H 03/24/23 06:27: Glucometer 69L 03/24/23 08:27: Glucometer 220H 03/24/23 10:59: Glucometer 86 03/24/23 16:36: Glucometer 72 03/24/23 21:55: Glucometer 168H 03/25/23 06:22: Glucometer 85 03/25/23 10:38: Glucometer 204H 03/25/23 15:54: Glucometer 70 03/25/23 21:09: Glucometer 151H 03/26/23 06:27: Glucometer 82 03/26/23 10:58: Glucometer 151H 03/26/23 15:55: Glucometer 134H 03/26/23 20:43: Glucometer 121H 03/27/23 05:32: Glucometer 91 03/27/23 11:02: Glucometer 110 03/27/23 16:27: Glucometer 89 03/27/23 20:33: Glucometer 156H 03/28/23 06:02: Glucometer 84 03/28/23 10:24: Glucometer 133H 03/28/23 20:39: Glucometer 153H 03/29/23 05:52: Glucometer 87 03/29/23 10:04: Glucometer 153H 03/29/23 15:48: Glucometer 131H 03/29/23 20:38: Glucometer 137H 03/30/23 05:57: Glucometer 94 Pending Labs Laboratory Tests 03/21/23 16:03: Glucometer 211 03/21/23 20:11: Glucometer 219 03/22/23 06:29: Glucometer 100 03/22/23 07:05: White Blood Count 8.3, Red Blood Count 4.22, Hemoglobin 12.0, Hematocrit 38, Mean Corpuscular Volume 89, Mean Corpuscular Hemoglobin 28, Mean Corpuscular Hemoglobin Concent 32, Red Cell Distribution Width 14.3, Platelet Count 215, Mean Platelet Volume 9.5, Immature Granulocyte % (Auto) 1, Neutrophils (%) (Auto) 71, Lymphocytes (%) (Auto) 20, Monocytes (%) (Auto) 6, Eosinophils (%) (Auto) 2, Basophils (%) (Auto) 1, Neutrophils # (Auto) 5.9, Lymphocytes # (Auto) 1.6, Monocytes # (Auto) 0.5, Eosinophils # (Auto) 0.2, Basophils # (Auto) 0.0, Immature Granulocyte # (Auto) 0.1, Sodium Level 140, Potassium Level 3.6, Chloride Level 107, Carbon Dioxide Level 24, Anion Gap 9, Blood Urea Nitrogen 15, Creatinine 0.94, Estimat Glomerular Filtration Rate 59, BUN/Creatinine Ratio 16, Glucose Level 113, Calcium Level 8.6, Corrected Calcium 9.2, Total Bilirubin 0.4, Aspartate Amino Transf (AST/SGOT) 10, Alanine Aminotransferase (ALT/SGPT) 9, Alkaline Phosphatase 66, Total Protein 6.2, Albumin 3.3 03/22/23 15:23: Glucometer 119 03/22/23 21:02: Glucometer 125 03/23/23 06:07: Glucometer 89 03/23/23 09:58: Glucometer 162 03/23/23 11:06: Glucometer 121 03/23/23 15:56: Glucometer 106 03/23/23 20:26: Glucometer 210 03/24/23 06:27: Glucometer 69 03/24/23 08:27: Glucometer 220 03/24/23 10:59: Glucometer 86 03/24/23 16:36: Glucometer 72 03/24/23 21:55: Glucometer 168 03/25/23 06:22: Glucometer 85 03/25/23 10:38: Glucometer 204 03/25/23 15:54: Glucometer 70 03/25/23 21:09: Glucometer 151 03/26/23 06:27: Glucometer 82 03/26/23 10:58: Glucometer 151 03/26/23 15:55: Glucometer 134 03/26/23 20:43: Glucometer 121 03/27/23 05:32: Glucometer 91 03/27/23 11:02: Glucometer 110 03/27/23 16:27: Glucometer 89 03/27/23 20:33: Glucometer 156 03/28/23 06:02: Glucometer 84 03/28/23 10:24: Glucometer 133 03/28/23 20:39: Glucometer 153 03/29/23 05:52: Glucometer 87 03/29/23 10:04: Glucometer 153 03/29/23 15:48: Glucometer 131 03/29/23 20:38: Glucometer 137 03/30/23 05:57: Glucometer 94 Discharge Home Medications: Active Scripts Active Levemir Flexpen (Insulin Detemir) 100 Unit/Ml (3 Ml) Insuln.pen 8 Unit SQ BID 14 Days Reported Losartan Potassium 50 Mg Tablet 50 Mg PO DAILY Clopidogrel (Clopidogrel Bisulfate) 75 Mg Tablet 75 Mg PO DAILY LAST FILLED 09-18-2022 #90/90 DAY SUPPLY Quetiapine Fumarate 50 Mg Tablet 75 Mg PO HS TAKES 1 & (50MG) TABS LAST FILLED 07-14-2022 #135/90 DAY SUPPLY Levothyroxine Sodium 75 Mcg Tablet 75 Mcg PO DAILY LAST FILLED 07-14-2022 #90/90 DAY SUPPLY Bydureon Bcise (Exenatide Microspheres) 2 Mg/0.85 Ml Auto.injct 2 Mg INJ WEEK Alendronate Sodium 70 Mg Tablet 70 Mg PO WEEK LAST FILLED 09-18-2022 #12/84 DAY SUPPLY Amlodipine Besylate 10 Mg Tablet 10 Mg PO DAILY LAST FILLED 09-18-2022 #90/90 DAY SUPPLY Glipizide 5 Mg Tablet 5 Mg PO DAILY Buspirone HCl 10 Mg Tablet 10 Mg PO BID LAST FILLED 09-18-2022 #180/90 DAY SUPPLY Donepezil HCl 5 Mg Tablet 5 Mg PO HS Atorvastatin Calcium 20 Mg Tablet 20 Mg PO DAILY Aspirin 81 Mg Tab.chew 81 Mg PO DAILY Levetiracetam 500 Mg Tablet 500 Mg PO BID LAST FILLED 07-14-2022 #180/90 DAY SUPPLY Sertraline HCl 100 Mg Tablet 150 Mg PO DAILY TAKES 1 & (100MG) TABS LAST FILLED 09-18-2022 #135/90 DAY SUPPLY Instructions to patient/family Please see electronic discharge instructions given to patient. Diagnosis/Problems Diagnosis/Problems (1) Severe sinus bradycardia ERUM SANTANA DO Mar 30, 2023 04:43
--- NOTE | 2023-03-30 04:43 | D/C HH Face to Face Order ---
D/C Face to Face Orders Reconcile Patient Problems Problems Reviewed?: Yes Instructions for Patient [place] Patient Instructions/FollowUp: PCP as scheduled Physician to follow Patient: PCP Discharge Diet for Home: ADA Diet Patient Problems: Debility Bradycardia Patient Data-Allergies,Ht & Wt Patient Allergies: Coded Allergies: No Known Drug Allergies (Unverified , 06/05/20) Height (Feet): 5 Height (Inches): 2.00 Weight (Pounds): 170 Weight (Ounces): 2.0 Home Health Need/Face to Face Date of Face to Face: Mar 30, 2023 Clinical Findings: Generalized weakness and fatigue, Instability, Muscle weakness I have seen Pt [id number]-[id number]: Yes Discharged To: Home Diagnosis/Conditions: Bradycardia Patient is Homebound due to: [place] fall risk due to instabilty, Muscle weakness Homebound Status Due to the above stated illness, injury or surgical procedure (medical condition or diagnosis) and associated clinical findings, the patient is homebound because of his/her inability to leave home except with aid of a supportive device and/or person AND leaving the home requires a considerable and taxing effort or is medically contraindicated. Pt req the following assistanc: [facility] Nursing Orders Home Health Services Order: Nursing Services, Director Asset-Evaluate & Treat, Physical Therapy-Evaluate & Treat Certify Stmt I certify that this patient is under my care and that I, a nurse practitioner or a physician; a sourcing assistant working with me, had a face to face encounter that - meets the physician face to face encounter requirements with this patient as dated. ERUM SANTANA DO Mar 30, 2023 04:43
[2023-03-30] MEDS: ENOXAPARIN 40 MG/0.4 ML SYRINGE SC SCH (05:56)
[2023-03-30] MEDS: glipiZIDE 5 MG TABLET PO SCH (05:58)
[2023-03-30] MEDS: LEVOTHYROXINE 75 MCG TABLET PO SCH (05:58)
[2023-03-30] MEDS: inSUlin ASPART 1 UNIT/0.01 ML (PER UNIT) SC SCH (06:08)
[2023-03-30 07:04] VITALS: BP 141/67
--- NOTE | 2023-03-30 07:46 | Occupational Ther Daily Note ---
OT Current Status-Daily Note Subjective Pt agreeable to OT Tx, states she is going home today. ADL-Treatment Therapy Code Descriptions/Definitions Functional [place] Measure: 0=Not Assessed/NA 4=Minimal Assistance 1=Total Assistance 5=Supervision or Setup 2=Maximal Assistance 6=Modified [place] 3=Moderate Assistance 7=Complete IndependenceSCALE: Activities may be completed with or without assistive devices. 9-Dhuduksots-zsbliwi completes the activity by him/herself with no assistance from a helper. 5-Set-up or Clean-up Assistance-helper sets up or cleans up; patient completes activity. [place] assists only prior to or following the activity. 4-Supervision or Touching Assistance-helper provides verbal cues and/or touching/steadying and/or contact guard assistance as patient completes activity. Assistance may be provided throughout the activity or intermittently. 3-Partial/Moderate Assistance-helper does LESS THAN HALF the effort. [place] lifts, holds or supports trunk or limbs, but provides less than half the effort. 2-Substantial/Maximal Assistance-helper does MORE THAN HALF the effort. [place] lifts or holds trunk or limbs and provides more than half the effort. 3-Cjlnxlnmw-zadxgw does ALL the effort. Patient does none of the effort to complete the activity. Or, the assistance of 2 or more helpers is required for the patient to complete the activity. If activity was not attempted, code reason: 7-Patient Refused. 9-Not Applicable-not attempted and the patient did not perform the activity before the current illness, exacerbation or injury. 10-Not Attempted due to Environmental Limitations-(lack of equipment, weather restraints, etc.). 88-Not Attempted due to Medical Conditions or Safety Concerns. Eating (QC): 6 Oral Hygiene (QC): 6 Shower/Bathe Self (QC): 5 Upper Body Dressing (QC): 5 Lower Body Dressing (QC): 5 On/Off Footwear: 5 Toileting Hygiene (QC): 6 Toilet Transfer (QC): 6 Other Treatment Pt agreeable to OT Tx. Pt changed clothes and completed sponge bath at [facility], she declined a full shower due to going home today. Pt used FWW to transfer into bathroom, SBA. Pt sat at sink to complete grooming tasks, independently. Pt returned to [facility], A using FWW. Post tx, pt in recliner, call light in reach and all needs met. Education OT Patient Education: Correct positioning, Energy conservation, Modified ADL techniques, Progress toward Goal/Update tx plan, Purpose of tx/functional activities, Rehab process Teaching Recipient: Patient Teaching Methods: Discussion Response to Teaching: Verbalize Understanding BIMS CAM BIMS Expression of Ideas and Wants: Without Difficulty Understanding Verbal Content: Understands Brief Interview/Mental Status: Yes IRF KEV BIMS: IRF KEV BIMS Response (Comments) Value Repitition of Three Words Three 3 Recalls Socks Yes, No Cue Required 2 Recalls Blue Yes, No Cue Required 2 Recalls Bed No, Could Not Recall 0 Year Missed by 5 Yrs/No Answer 0 Month Missed by 1 Mo/No Answer 0 Day Correct 1 Total [address] Mental [address] No CAM Mental Status Change/Baseline: 0 Inattention: 0 Disorganized thinkin Altered level of consciousness: 0 OT Nursing Home Goals Assistant Front Office Manager Goals Time Frame: Apr 10, 2023 Acute change in mental status: 0 Inattention: 0 Disorganized thinkin Altered level of consciousness: 0 Eating (QC): 6 (met) Oral Hygiene (QC): 6 (met) Toileting Hygiene (QC): 6 (met) Shower/Bathe Self (QC): 4 (met) Upper Body Dressing (QC): 6 (not met, set up) Lower Body Dressing (QC): 6 (not met, set up) On/Off Footwear (QC): 6 (not met, set up) Additional Goals: 1-Demonstrate ADL Tasks, 2-Verbalize Understanding, 3- ImproveStrength/Nilsa 1=Demonstrate adherence to instructed precautions during ADL tasks. 2=Patient will verbalize/demonstrate understanding of assistive devices/modifications for ADL. 3=Patient will improve strength/tolerance for activity to enable patient to perform ADL's. OT Education/Plan Problem List/Assessment Assessment: Decreased Activ Tolerance, Decreased UE Strength, Impaired Funct Balance, Impaired I ADL's, Impaired Self-Care Skills Discharge Recommendations Plan/Recommendations: Continue POC Treatment Plan/Plan of Care Treatment,Training & Education: Yes Patient would benefit from OT for education, treatment and training to promote independence in ADL's, mobility, safety and/or upper extremity function for ADL's. Plan of Care: ADL Retraining, Caregiver Training, Functional Mobility, Group Exercise/Act as Ind, UE Funct Exercise/Act Treatment Duration: Apr 10, 2023 Frequency: At least 5 of 7 days/Wk (IRF) Estimated Hrs Per Day: Other (75 mins per day) Agreement: Yes Rehab Potential: Fair Time Start Time: 07:20 Stop Time: 07:45 DATE: Mar 30, 2023 Total Time Billed (hr/min): 25 Billed Treatment Time 1, ADL 2 COLTON PIERRE OT Mar 30, 2023 07:46
--- NOTE | 2023-03-30 08:24 | Physical Therapy Daily Note ---
PT Daily Note-Current Subjective Pt reports she is doing well and is agreeable to PT. Denies pain. Discharging home on this date. Pain Numeric Pain Scale: 0-No Pain Location: No Pain Reported Section J - Health Conditions 1. Rarely or not at all 2. Occasionally 3. Frequently 4. Almost constantly 8. Unable to answer Pain Effect on Sleep: 1 Pain Interference with Therapy: 1 Pain Interference w/Day-to-Day: 1 Transfers SCALE: Activities may be completed with or without assistive devices. 1-Uciwfwokbj-hnontxp completes the activity by him/herself with no assistance from a helper. 5-Set-up or Clean-up Assistance-helper sets up or cleans up; patient completes activity. [place] assists only prior to or following the activity. 4-Supervision or Touching Assistance-helper provides verbal cues and/or touching/steadying and/or contact guard assistance as patient completes activity. Assistance may be provided throughout the activity or intermittently. 3-Partial/Moderate Assistance-helper does LESS THAN HALF the effort. [place] lifts, holds or supports trunk or limbs, but provides less than half the effort. 2-Substantial/Maximal Assistance-helper does MORE THAN HALF the effort. [place] lifts or holds trunk or limbs and provides more than half the effort. 9-Izeynlfyz-oswect does ALL the effort. Patient does none of the effort to complete the activity. Or, the assistance of 2 or more helpers is required for the patient to complete the activity. If activity was not attempted, code reason: 7-Patient Refused. 9-Not Applicable-not attempted and the patient did not perform the activity before the current illness, exacerbation or injury. 10-Not Attempted due to Environmental Limitations-(lack of equipment, weather restraints, etc.). 88-Not Attempted due to Medical Conditions or Safety Concerns. Roll Left & Right (QC): 6 Sit to Lying (QC): 6 Lying to Sitting/Side of Bed(Q: 6 Sit to Stand (QC): 6 Chair/Eug-ip-Rinem Xfer(QC): 6 Toilet Transfer (QC): 6 Car Transfer (QC): 6 Weight Bearing Right Lower Extremity: Right Full Weight Bearing Left Lower Extremity: Left Full Weight Bearing Gait Training Does the Patient Walk?: Yes Distance: 65ft Walk 10 feet (QC): 4 Walk 50 ft with 2 Turns(QC): 4 Walk 150 ft (QC): 9 Walking 10ft/uneven surface-QC: 4 Gait Persons Needed: 1 Gait Assistive Device: FWW Wheelchair Training Does the Pt Use a Wheelchair?: Yes Wheel 50 ft with 2 turns (QC): 6 Wheel 150 ft (QC): 6 Type of Wheelchair: Manual Stair Training Stair Training: Handrails/: 2 handrails #of Steps: 4 1 Step (curb) (QC): 4 4 Steps (QC): 4 12 Steps (QC): 9 Stairs: Pattern: Step to Balance Picking up an Object (QC): 5 Special Test Comments KU standing balance scale = 3+/5 Treatments QCs completed on this date. Pt did well and scored according to above listed scores. After treatment session, pt sitting in the recliner with call light in reach and all needs met. Assessment Current Status: Good Progress Pt tolerated PT well with good effort. Pt progressed well and has met all set goals and plans to d/c home with family and CG assistance on this date (03/30/23) PT Fats And Oils Loader Goals Fats And Oils Loader Goals PT [facility] Goals Time Frame: Apr 04, 2023 Roll Left & Right (QC): 6 (Pt will be Mod I with bed mobility and functional transfers. ) Sit to Lying (QC): 6 (Pt will be Mod I with bed mobility and functional transfers. ) Lying-Sitting on Side/Bed(QC): 6 (Pt will be Mod I with bed mobility and functional transfers. ) Sit to Stand (QC): 6 (Pt will be Mod I with bed mobility and functional t ransfers. ) Chair/Jxh-tb-Wudej Xfer(QC): 6 (Pt will be Mod I with bed mobility and functional transfers. ) Toilet Transfer (QC): 6 (Pt will be Mod I with bed mobility and functional transfers. ) Car Transfer (QC): 6 (Pt will be Mod I with bed mobility and functional transfers. ) Does the Patient Walk: Yes Walk 10 feet (QC): 4 (Pt will be SBA for walking with the FWW, up to 50ft. ) Walk 50ft with 2 Turns (QC): 4 (Pt will be SBA for walking with the FWW, up to 50ft. ) Walk 150 ft (QC): 9 (Pt did not walk longer distances at PLOF. ) Walking 10ft on Uneven Surface: 4 (Pt will be SBA for walking with the FWW, up to 50ft. ) 1 Step (curb) (QC): 4 (SBA for stairs ) 4 Steps (QC): 4 (SBA for stairs ) 12 Steps (QC): 9 (Pt did not complete 12 steps at PLOF ) Picking up an Object (QC): 5 (set-up with quantitative researcher ) Does the Pt use WC or Scooter?: Yes Wheel 50 feet with 2 turns (QC: 6 (Mod I with w/c mobility ) Type: Manual Wheel 150 feet: 6 (Mod I with w/c mobility ) Type: Manual PT Plan Problem List Problem List: Activity Tolerance, Functional Strength, Safety, Balance, Gait, Transfer, Bed Mobility, ROM Treatment/Plan Treatment Plan: Continue Plan of Care Treatment Plan: Bed Mobility, Education, Functional Activity Nilsa, Functional Strength, Group Therapy, Gait, Safety, Therapeutic Exercise, Transfers Treatment Duration: Apr 04, 2023 Frequency: At least 5 of 7 days/Wk (IRF) Estimated Hrs Per Day: 1.5 hours per day Patient and/or Family Agrees t: Yes Safety Risks/Education Patient Education: Gait Training, Transfer Techniques, Steps, Correct Positioning, W/C Management, Safety Issues Teaching Recipient: Patient Teaching Methods: Demonstration, Discussion Response to Teaching: Verbalize Understanding, Return Demonstration, Reinforcement Needed Discharge Recommendations Therapy Discharge Recommendati: Home & Family, Post Acute PT Equpiment Recommendations-D/C: Manual Wheelchair (Pt now has her new w/c ) Discharge Status/Home Program Cont per POC; D/C later on this date (03/30/23) Barriers to Progress Weakness, endurance Target Placement Home with family and CG assistance on this date (03/30/23) Time Time In: 800 Time Out: 830 DATE: Mar 30, 2023 Total Billed Treatment Time: 30 Total Billed Treatment 30 min 1 visit GT x 1 FA x 1 RAMESH GAVIN PT Mar 30, 2023 08:24
[2023-03-30] MEDS: SERTRALINE 100 MG TABLET PO SCH (09:03)
[2023-03-30] MEDS: ASPIRIN 81 MG CHEWABLE TABLET PO SCH (09:04)
[2023-03-30] MEDS: busPIRone 10 MG TABLET PO SCH (09:05)
[2023-03-30] MEDS: LevETIRAcetam 500 MG TABLET PO SCH (09:05)
[2023-03-30] MEDS: LOSARTAN 50 MG TABLET PO SCH (09:05)
[2023-03-30] MEDS: amLODIPine 5 MG TABLET PO SCH (09:05)
[2023-03-30] MEDS: CLOPIDOGREL 75 MG TABLET PO SCH (09:05)
[2023-03-30] MEDS: SENNOSIDES 8.6 MG TABLET PO SCH (09:06)
[2023-03-30] MEDS: DOCUSATE SODIUM 100 MG CAPSULE PO SCH (09:06)
[2023-03-30] MEDS: inSUlin DETERMIR 1 UNIT/0.01 ML (CHARGE PER UNIT) SQ SCH (09:08)
--- NOTE | 2023-03-30 09:54 | Therapy Team Discharge Summary ---
Therapy Discharge Summary Discharge Recommendations Date of Discharge Physical Therapy Roll Left to Right (QC): 6 Sit to Lying (QC): 6 Lying to Sitting/Side of Bed(Q: 6 Sit to Stand (QC): 6 Chair/Qct-lf-Kopih Xfer(QC): 6 Toilet Transfer (QC): 6 Car Transfer (QC): 6 Does the Patient Walk: Yes Mode of Locomotion: Both Anticipated Mode of Locomotion: Both Walk 10 feet (QC): 4 Walk 50 ft with 2 Turns(QC): 4 Walk 150 ft (QC): 9 Walking 10ft on uneven surface: 4 Distance: 55ft Gait Assistive Device: FWW Does the Pt Use a Wheelchair: Yes Wheelchair Distance: 150ft Wheel 50 ft with 2 turns (QC): 6 Wheel 150 ft (QC): 6 Type of Wheelchair: Manual #of Steps: 4 1 Step (curb) (QC): 4 4 Steps (QC): 4 12 Steps (QC): 9 Walking Assistive Device: Walker Balance Sitting Static: Good Balance Sitting Dynamic: Good Balance-Standing Static: Fair Picking up an Object (QC): 5 Occupational Therapy Pt admitted to ARU with symptomatic bradycardia. At [facility], pt required some assistance with ADLs, cognition and functional mobility. Upon initial evaluation, pt required set up assist with eating, oral care, UE dressing and footwear and min A with showering, LE Dressing and toileting. OT Tx focused on increasing safety and independence with ADLs and functional mobility and increasing BUE Strength and activity tolerance. Pt made good progress towards goals, attaining all LTGs except UE/LE dressing and footwear. Pt is discharging home with scheduled assistance and family support, d/c from OT. Decreased Activ Tolerance, Decreased UE Strength, Impaired Funct Balance, Impaired I ADL's, Impaired Self-Care Skills Eating (QC): 6 Oral Hygiene (QC): 6 Shower/Bathe Self (QC): 5 Upper Body Dressing (QC): 5 Lower Body Dressing (QC): 5 On/Off Footwear (QC): 5 Toileting Hygiene (QC): 6 PT Fpc Goals Fpc Goals PT Fpc Goals Time Frame: Apr 04, 2023 Roll Left to Right (QC): 6 (Pt will be Mod I with bed mobility and functional transfers. ) Sit to Lying (QC): 6 (Pt will be Mod I with bed mobility and functional transfers. ) Lying-Sitting on Side/Bed(QC): 6 (Pt will be Mod I with bed mobility and functional transfers. ) Sit to Stand (QC): 6 (Pt will be Mod I with bed mobility and functional transfers. ) Chair/Cfd-vi-Idbfm Xfer(QC): 6 (Pt will be Mod I with bed mobility and fun ctional transfers. ) Toilet/Commode Transfer (QC): 6 (Pt will be Mod I with bed mobility and functional transfers. ) Car Transfer (QC): 6 (Pt will be Mod I with bed mobility and functional transfers. ) Does the Patient Walk: Yes Walk 10 feet (QC): 4 (Pt will be SBA for walking with the FWW, up to 50ft. ) Walk 10ft-Uneven Surface(QC): 4 (Pt will be SBA for walking with the FWW, up to 50ft. ) Walk 50ft with 2 Turns (QC): 4 (Pt will be SBA for walking with the FWW, up to 50ft. ) Walk 150 ft (QC): 9 (Pt did not walk longer distances at PLOF. ) Does the Pt use WC or Scooter?: Yes Wheel 50 feet with 2 turns (QC: 6 (Mod I with w/c mobility ) Type: Manual Wheel 150 feet: 6 (Mod I with w/c mobility ) Type: Manual 1 Step (curb) (QC): 4 (SBA for stairs ) 4 Steps (QC): 4 (SBA for stairs ) 12 Steps (QC): 9 (Pt did not complete 12 steps at PLOF ) Picking up an Object (QC): 5 (set-up with motion picture film examiner ) OT Cosmetic Account Coordinator Goals Fpc Goals Time Frame: Apr 10, 2023 Acute change in mental status: 0 Inattention: 0 Disorganized thinkin Altered level of consciousness: 0 Eating (QC): 6 (met) Oral Hygiene (QC): 6 (met) Toileting Hygiene (QC): 6 (met) Shower/Bathe Self (QC): 4 (met) Upper Body Dressing (QC): 6 (not met, set up) Lower Body Dressing (QC): 6 (not met, set up) On/Off Footwear (QC): 6 (not met, set up) Additional Goals: 1-Demonstrate ADL Tasks, 2-Verbalize Understanding, 3-Impr oveStrength/Nilsa 1=Demonstrate adherence to instructed precautions during ADL tasks. 2=Patient will verbalize/demonstrate understanding of assistive devices/modifications for ADL. 3=Patient will improve strength/tolerance for activity to enable patient to perform ADL's. Speech Fpc Goals Fpc Goals The pt will demonstrate use of memory strategies for functional daily skills with min assist provided. Time Frame: 7 days COLTON PIERRE OT Mar 30, 2023 09:54
[2023-03-30 11:55] VITALS: BP 141/67
--- NOTE | 2023-03-30 16:04 | Therapy Team Discharge Summary ---
Therapy Discharge Summary Discharge Recommendations Date of Discharge Mar 30, 2023 at 09:30 Therapy D/C Recommendations: Home w/ Family Support, Physical Therapy Home Care Physical Therapy Pt is an 87 y/o female who arrived at the ED via EMS secondary to weakness, slurred speech, and dizziness on 03/19/23; Admitted to ARU on 03/21/23. At OF, pt was Mod I with indoor mobility with the FWW and manual w/c. Upon PT eval, pt was CGA/SBA for transfers and walking, and Min A for steps. PT focused on B LE strength, endurance, balance/safety, walking, functional mobility, and overall Ind. Pt progressed well with PT and met all set goals. Pt d/c from ARU to home on 03/30/23 to home with family and CG assistance, as well as HHC; D/C from PT at this time. Roll Left to Right (QC): 6 Sit to Lying (QC): 6 Lying to Sitting/Side of Bed(Q: 6 Sit to Stand (QC): 6 Chair/Qsj-ig-Rofbp Xfer(QC): 6 Toilet Transfer (QC): 6 Car Transfer (QC): 6 Does the Patient Walk: Yes Mode of Locomotion: Both Anticipated Mode of Locomotion: Both Walk 10 feet (QC): 4 Walk 50 ft with 2 Turns(QC): 4 Walk 150 ft (QC): 9 Walking 10ft on uneven surface: 4 Distance: 55ft Gait Assistive Device: FWW Does the Pt Use a Wheelchair: Yes Wheelchair Distance: 150ft Wheel 50 ft with 2 turns (QC): 6 Wheel 150 ft (QC): 6 Type of Wheelchair: Manual #of Steps: 4 1 Step (curb) (QC): 4 4 Steps (QC): 4 12 Steps (QC): 9 Walking Assistive Device: Walker Balance Sitting Static: Good Balance Sitting Dynamic: Good Balance-Standing Static: Fair Picking up an Object (QC): 5 Occupational Therapy Decreased Activ Tolerance, Decreased UE Strength, Impaired Funct Balance, Impaired I ADL's, Impaired Self-Care Skills Eating (QC): 6 Oral Hygiene (QC): 6 Shower/Bathe Self (QC): 5 Upper Body Dressing (QC): 5 Lower Body Dressing (QC): 5 On/Off Footwear (QC): 5 Toileting Hygiene (QC): 6 PT Longterm Goals Longterm Goals PT Poultry Pinner Goals Time Frame: Apr 04, 2023 Roll Left to Right (QC): 6 (Pt will be Mod I with bed mobility and functional transfers. ) Sit to Lying (QC): 6 (Pt will be Mod I with bed mobility and functional transfers. ) Lying-Sitting on Side/Bed(QC): 6 (Pt will be Mod I with bed mobility and functional transfers. ) Sit to Stand (QC): 6 (Pt will be Mod I with bed mobility and functional transfers. ) Chair/Mdz-hq-Wscal Xfer(QC): 6 (Pt will be Mod I with bed mobility and functional transfers. ) Toilet/Commode Transfer (QC): 6 (Pt will be Mod I with bed mobility and functional transfers. ) Car Transfer (QC): 6 (Pt will be Mod I with bed mobility and functional transfers. ) Does the Patient Walk: Yes Walk 10 feet (QC): 4 (Pt will be SBA for walking with the FWW, up to 50ft. ) Walk 10ft-Uneven Surface(QC): 4 (Pt will be SBA for walking with the FWW, up to 50ft. ) Walk 50ft with 2 Turns (QC): 4 (Pt will be SBA for walking with the FWW, up to 50ft. ) Walk 150 ft (QC): 9 (Pt did not walk longer distances at PLOF. ) Does the Pt use WC or Scooter?: Yes Wheel 50 feet with 2 turns (QC: 6 (Mod I with w/c mobility ) Type: Manual Wheel 150 feet: 6 (Mod I with w/c mobility ) Type: Manual 1 Step (curb) (QC): 4 (SBA for stairs ) 4 Steps (QC): 4 (SBA for stairs ) 12 Steps (QC): 9 (Pt did not complete 12 steps at PLOF ) Picking up an Object (QC): 5 (set-up with eradicator ) OT Poultry Pinner Goals Poultry Pinner Goals Time Frame: Apr 10, 2023 Acute change in mental status: 0 Inattention: 0 Disorganized thinkin Altered level of consciousness: 0 Eating (QC): 6 (met) Oral Hygiene (QC): 6 (met) Toileting Hygiene (QC): 6 (met) Shower/Bathe Self (QC): 4 (met) Upper Body Dressing (QC): 6 (not met, set up) Lower Body Dressing (QC): 6 (not met, set up) On/Off Footwear (QC): 6 (not met, set up) Additional Goals: 1-Demonstrate ADL Tasks, 2-Verbalize Understanding, 3- ImproveStrength/Nilsa 1=Demonstrate adherence to instructed precautions during ADL tasks. 2=Patient will verbalize/demonstrate understanding of assistive device s/modifications for ADL. 3=Patient will improve strength/tolerance for activity to enable patient to perform ADL's. Speech Longterm Goals Poultry Pinner Goals The pt will demonstrate use of memory strategies for functional daily skills with min assist provided. Time Frame: 7 days RAMESH GAVIN PT Mar 30, 2023 16:04
== END 2023-03-30 09:30 | disposition home health service (06) | DRG 293 ==
PROVIDERS: ADMIT Internal Medicine; ATTEND Internal Medicine
DX: I11.0 Hypertensive heart disease with heart failure (principal); I50.9 Heart failure, unspecified; R00.1 Bradycardia, unspecified; R55 Syncope and collapse; F03.90 Unspecified dementia, unspecified severity, without behavioral disturbance, psychotic disturbance, mood disturbance, and anxiety; E11.9 Type 2 diabetes mellitus without complications; E78.00 Pure hypercholesterolemia, unspecified; E03.9 Hypothyroidism, unspecified; I25.10 Atherosclerotic heart disease of native coronary artery without angina pectoris; F41.9 Anxiety disorder, unspecified; F32.A Depression, unspecified; H91.90 Unspecified hearing loss, unspecified ear; Z85.828 Personal history of other malignant neoplasm of skin; Z85.41 Personal history of malignant neoplasm of cervix uteri; Z79.4 Long term (current) use of insulin; Z79.84 Long term (current) use of oral hypoglycemic drugs; Z95.5 Presence of coronary angioplasty implant and graft
CPT/HCPCS: 36415; 80053; 82947; 85025; 94760

== ENCOUNTER 2023-06-16 15:29 | Observation (INO) | payer MEDICARE, OTHER ==
[~2023-06-16] VITALS: Ht 157.5 cm; Wt 73.4 kg
[~2023-06-16 15:29] MED LIST changes: -GLIP5TAB13 PO; +GLIP5TAB23 PO
[2023-06-16] MEDS ORDERED: NS IV 500 ML 500 ML IV ONE (16:00)
[2023-06-16 16:03] LABS: BASOPHILS % (AUTO) 0 % (0-10); EOSINOPHILS # (AUTO) 0.2 10^3/uL (0.0-0.3); EOSINOPHILS % (AUTO) 2 % (0-10); HEMATOCRIT 42 % (35-52); HEMOGLOBIN 12.8 g/dL (11.5-16.0); LYMPHOCYTES % (AUTO) 25 % (12-44); MEAN CORPUSCULAR HEMOGLOBIN 28 pg (25-34); MEAN CORPUSCULAR HGB CONC 31 g/dL (32-36); MEAN CORPUSCULAR VOLUME 90 fL (80-99); MEAN PLATELET VOLUME 9.7 fL (9.0-12.2); MONOCYTES # (AUTO) 0.4 10^3/uL (0.0-1.0); MONOCYTES % (AUTO) 5 % (0-12); NEUTROPHILS # (AUTO) 5.3 10^3/uL (1.8-7.8); NEUTROPHILS % (AUTO) 67 % (42-75); PLATELET COUNT 270 10^3/uL (130-400); WHITE BLOOD COUNT 7.9 10^3/uL (4.3-11.0)
--- NOTE | 2023-06-16 16:20 | ED General ---
General Chief Complaint: Chest Pain Stated Complaint: CHEST PAIN Nursing Triage Note: PT WITH DAUGHTER STATES CHEST PAIN SINCE ABOUT 1000 THIS MORNING, AMS, SUGAR WAS HIGH, COUGH, CHF Source of Information: Patient Exam Limitations: No Limitations History of Present Illness Date Seen by Provider: Jun 16, 2023 Time Seen by Provider: 15:39 Initial Comments Here with report of intermittent chest pain today since about 10 AM this morning. Also with decreased urination and, mild altered mental status and sugar that was high. She does have history of cough recently in the setting of history of CHF. Patient has had stroke previously but recovered from that. She does have dementia. She has had her medications changed to essentially all p.m. meds except her thyroid medicine which she takes in the morning. This was done to help her remember. Daughter reports that she does not drink enough fluids. Patient denies pain currently. She does seem a bit confused and daughter states it is a little bit more than normal. Daughter states this is usually related to a urinary tract infection. No report of fever. Cough has been mild but has been more prominent recently. No reported sore throat or runny nose. No vomiting or diarrhea. Timing/Duration: 4-6 Hours, Getting Worse, Intermittent Severity: Mild Modifying Factors: improves with Rest Associated Systoms: Chest Pain, Cough; No Fever/Chills, No Nausea/Vomiting, No Shortness of Air; Weakness Allergies and Home Medications Allergies Coded Allergies: No Known Drug Allergies (Unverified , 06/05/20) Patient Home Medication List Home Medication List Reviewed: Yes Alendronate Sodium (Alendronate Sodium) 70 Mg Tablet, 70 MG PO WEEK, (Reported) Entered as Reported by: RENETTA ROSAS on 12/28/221829 Amlodipine Besylate (Amlodipine Besylate) 10 Mg Tablet, 10 MG PO DAILY, (Reported) Entered as Reported by: RENETTA ROSAS on 12/28/221829 Aspirin (Aspirin) 81 Mg Tab.chew, 81 MG PO DAILY, (Reported) Entered as Reported by: LAURE SOW on 06/05/20 0753 Atorvastatin Calcium (Atorvastatin Calcium) 20 Mg Tablet, 20 MG PO DAILY, (Reported) Entered as Reported by: RENETTA ROSAS on 12/28/221829 Buspirone HCl (Buspirone HCl) 10 Mg Tablet, 10 MG PO BID, (Reported) Entered as Reported by: RENETTA ROSAS on 12/28/221829 Clopidogrel Bisulfate (Clopidogrel) 75 Mg Tablet, 75 MG PO DAILY, (Reported) Entered as Reported by: SUSAN KELLER on 12/29/22 1425 Donepezil HCl (Donepezil HCl) 5 Mg Tablet, 5 MG PO HS, (Reported) Entered as Reported by: RENETTA ROSAS on 12/28/221829 Exenatide Microspheres (Bydureon Bcise) 2 Mg/0.85 Ml Auto.injct, 2 MG INJ WEEK, (Reported) Entered as Reported by: RENETTA ROSAS on 12/28/221829 Glipizide (Glipizide) 5 Mg Tablet, 5 MG PO DAILY, (Reported) Entered as Reported by: RENETTA ROSAS on 12/28/221829 Insulin Detemir (Levemir Flexpen) 100 Unit/Ml (3 Ml) Insuln.pen, 8 UNIT SQ BID Prescribed by: ERUM SANTANA on 03/30/23 0442 Levetiracetam (Levetiracetam) 500 Mg Tablet, 500 MG PO BID, (Reported) Entered as Reported by: LAURE SOW on 06/05/20 0753 Levothyroxine Sodium (Levothyroxine Sodium) 75 Mcg Tablet, 75 MCG PO DAILY, (Reported) Entered as Reported by: RENETTA ROSAS on 12/28/221829 Losartan Potassium (Losartan Potassium) 50 Mg Tablet, 50 MG PO DAILY, (Reported) Entered as Reported by: SUSAN KELLER on 03/20/23 1141 Quetiapine Fumarate (Quetiapine Fumarate) 50 Mg Tablet, 75 MG PO HS, (Reported) Entered as Reported by: RENETTA ROSAS on 12/28/221829 Sertraline HCl (Sertraline HCl) 100 Mg Tablet, 150 MG PO DAILY, (Reported) Entered as Reported by: RENETTA RODAS on 10/18/15 1734 Review of Systems Review of Systems Constitutional: see HPI; No chills, No fever EENTM: No nose congestion, No throat pain Respiratory: cough; No short of breath Cardiovascular: see HPI, chest pain Gastrointestinal: No nausea, No vomiting Genitourinary: decreased output Musculoskeletal: muscle pain Skin: no symptoms reported Psychiatric/Neurological: See HPI Past Kmbjyxt-Zugvqd-Azkkcg Hx Patient Social History Tobacco Use?: No Substance use?: No Alcohol Use?: No Immunizations Up To Date Tetanus Booster (TDap): Unknown PED Vaccines UTD: Yes First/Initial COVID19 Vaccinat: 2020 Second COVID19 Vaccination Rafael: 2020 Third COVID19 Vaccination Date: 2020 Seasonal Allergies Seasonal Allergies: No Past Medical History Surgery/Hospitalization HX: DM 2, HTN, CHF,Bradycardia, CAD, CVA 2016, Anxiety, Depression, SEIZURES, surg. 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 Sexually Transmitted Disease: No HIV/AIDS: No Genitourinary: Yes Kidney Infection Gastrointestinal: No Musculoskeletal: Yes Arthritis Endocrine: Yes Diabetes, Insulin dep, Hypothyroidsim HEENT: Yes Cataract Loss of Vision: Denies Hearing Impairment: Hard of Hearing Cancer: Yes Skin, Cervical Psychosocial: Yes Anxiety, Depression Integumentary: No Pruritis, Recent Skin Changes Blood Disorders: No Adverse Reaction/Blood Tranf: No Family Medical History Reviewed Nursing Family Hx Family history: Alzheimer's disease 03 MOTHER Family history: Hypertension 03 FATHER 03 MOTHER Myocardial infarction 03 FATHER 03 MOTHER Heart Disease, Hypertension Physical Exam Vital Signs Vital Signs - First Documented 06/16/23 15:34 Temp 36.8 Pulse 56 Resp 18 B/P (MAP) 120/68 (85) Pulse Ox 97 O2 Delivery Room Air Capillary Refill : Less Than 3 Seconds Height, Weight, BMI Height: 5'2.00" Weight: 170lbs. 2.0oz. [id number]; 30.00 BMI Method:Stated General Appearance: No Apparent Distress, WD/WN HEENT: PERRL/EOMI, Pharynx Normal Neck: Non Tender, Supple Respiratory: Lungs Clear, Normal Breath Sounds Cardiovascular: No Murmur, Bradycardia Gastrointestinal: Non Tender, Soft Extremity: Normal Range of Motion, Non Tender Neurologic/Psychiatric: Alert, Other (Patient is hard of hearing but answers questions well and follows commands well. She is a little confused but otherwise near her normal state per the daughter.) Skin: Normal Color, Warm/Dry Focused Exam Lactate Level 06/16/23 15:55: Lactic Acid Level 0.74 Lactic Acid Level Laboratory Tests Test 06/16/23 15:55 Lactic Acid Level 0.74 MMOL/L (0.50-2.00) Procedures/Interventions Suture Size: 5-0 Progress/Results/Core Measures Suspected Sepsis SIRS Temperature: Pulse: 56 Respiratory Rate: 18 Laboratory Tests 06/16/23 15:37: White Blood Count 7.9 Blood Pressure 120 /68 Mean: 85 06/16/23 15:55: Lactic Acid Level 0.74 Laboratory Tests 06/16/23 15:37: Platelet Count 270 06/16/23 16:05: Creatinine 0.98, INR Comment 0.9, Total Bilirubin 0.5 Results/Orders Lab Results Laboratory Tests Test 06/16/23 15:37 06/16/23 15:55 06/16/23 16:05 06/16/23 16:06 Range/Units White Blood Count 7.9 4.3-11.0 10^3/uL Red Blood Count 4.64 3.80-5.11 10^6/uL Hemoglobin 12.8 11.5-16.0 g/dL Hematocrit 42 35-52 % Mean Corpuscular Volume 90 80-99 fL Mean Corpuscular Hemoglobin 28 25-34 pg Mean Corpuscular Hemoglobin Concent 31 L 32-36 g/dL Red Cell Distribution Width 14.5 10.0-14.5 % Platelet Count 270 130-400 10^3/uL Mean Platelet Volume 9.7 9.0-12.2 fL Immature Granulocyte % (Auto) 0 % Neutrophils (%) (Auto) 67 42-75 % Lymphocytes (%) (Auto) 25 12-44 % Monocytes (%) (Auto) 5 0-12 % Eosinophils (%) (Auto) 2 0-10 % Basophils (%) (Auto) 0 0-10 % Neutrophils # (Auto) 5.3 1.8-7.8 10^3/uL Lymphocytes # (Auto) 2.0 1.0-4.0 10^3/uL Monocytes # (Auto) 0.4 0.0-1.0 10^3/uL Eosinophils # (Auto) 0.2 0.0-0.3 10^3/uL Basophils # (Auto) 0.0 0.0-0.1 10^3/uL Immature Granulocyte # (Auto) 0.0 0.0-0.1 10^3/uL B-Type Natriuretic Peptide 207.6 H <100.0 PG/ML Lactic Acid Level 0.74 0.50-2.00 MMOL/L Influenza Type A (RT-PCR) Not Detected Not Detecte Influenza Type B (RT-PCR) Not Detected Not Detecte SARS-CoV-2 RNA (RT-PCR) Not Detected Not Detecte Prothrombin Time 12.6 12.2-14.7 SEC INR Comment 0.9 0.8-1.4 Activated Partial Thromboplast Time 29 24-35 SEC Sodium Level 139 135-145 MMOL/L Potassium Level 4.1 3.6-5.0 MMOL/L Chloride Level 106 98-107 MMOL/L Carbon Dioxide Level 26 21-32 MMOL/L Anion Gap 7 5-14 MMOL/L Blood Urea Nitrogen 16 7-18 MG/DL Creatinine 0.98 0.60-1.30 MG/DL Estimat Glomerular Filtration Rate 57 BUN/Creatinine Ratio 16 Glucose Level 145 H 70-105 MG/DL Calcium Level 9.1 8.5-10.1 MG/DL Corrected Calcium 9.3 8.5-10.1 MG/DL Total Bilirubin 0.5 0.1-1.0 MG/DL Aspartate Amino Transf (AST/SGOT) 15 5-34 U/L Alanine Aminotransferase (ALT/SGPT) 15 0-55 U/L Alkaline Phosphatase 71 40-136 U/L Troponin I < 0.028 <0.028 NG/ML C-Reactive Protein High Sensitivity 0.13 0.00-0.50 MG/DL Total Protein 7.3 6.4-8.2 GM/DL Albumin 3.8 3.2-4.5 GM/DL TSH Tillman Testing 5.72 H 0.35-4.94 UIU/ML Urine Color YELLOW Urine Clarity SL CLOUDY Urine pH 5.0 5-9 Urine Specific [place] 1.020 1.016-1.022 Urine Protein NEGATIVE NEGATIVE Urine Glucose (UA) NEGATIVE NEGATIVE Urine Ketones TRACE H NEGATIVE Urine Nitrite POSITIVE H NEGATIVE Urine Bilirubin NEGATIVE NEGATIVE Urine Urobilinogen 0.2 < = 1.0 MG/DL Urine Leukocyte Esterase 1+ H NEGATIVE Urine RBC (Auto) NEGATIVE NEGATIVE Urine RBC NONE /HPF Urine WBC 10-25 H /HPF Urine Squamous Epithelial Cells 2-5 /HPF Urine Crystals NONE /LPF Urine Bacteria LARGE H /HPF Urine Casts NONE /LPF Urine Mucus NEGATIVE /LPF Urine Culture Indicated CULTURE PENDING My Orders Orders - CARLY TALLEY MD Ekg Tracing (06/16/23 15:32) Cbc And Automated Diff (06/16/23 15:49) Comprehensive Metabolic Panel (06/16/23 15:49) Blood Culture (06/16/23 15:49) Sputum Culture (06/16/23 15:49) Urinalysis (06/16/23 15:49) Urine Culture (06/16/23 15:49) Protime With Inr (06/16/23 15:49) Partial Thromboplastin Time (06/16/23 15:49) Chest 1 View, Ap/Pa Only (06/16/23 15:49) Ed Iv/Invasive Line Start (06/16/23 15:49) Troponin I Hardy (06/16/23 15:49) Vital Signs Adult Sepsis Patie Q15M (06/16/23 15:49) O2 (06/16/23 15:49) Remove Rings In Anticipation O (06/16/23 15:49) Lactic Acid Analyzer (06/16/23 15:49) Influenza A And B By Pcr (06/16/23 15:49) Covid 19 Inhouse Test (06/16/23 15:49) Bnp Andrade (06/16/23 15:49) Hs C Reactive Protein (06/16/23 15:49) Thyroid Analyzer (06/16/23 15:49) Ns Iv 500 Ml (Ns Iv 500 Ml) (06/16/23 16:00) Straight Cath For Spec.-Adult (06/16/23 15:49) Free T4 (Free Thyroxine) (06/16/23 16:05) Ondansetron Injection (Ondansetron Inj (06/16/23 17:30) Ceftriaxone Iv/Im (Ceftriaxone Iv/Im) (06/16/23 17:22) Medications Given in ED Current Medications Medications Dose Ordered Sig/Hanny Route Start Time Stop Time Status Last Admin Dose Admin Ondansetron HCl 4 mg ONCE ONCE IVP 06/16/23 17:30 06/16/23 17:31 DC 06/16/23 17:45 4 MG Sodium Chloride 500 ml @ 0 mls/hr Q0M ONCE IV 06/16/23 16:00 06/16/23 16:01 DC 06/16/23 15:59 500 MLS/HR Vital Signs/I&O 06/16/23 15:34 Temp 36.8 Pulse 56 Resp 18 B/P (MAP) 120/68 (85) Pulse Ox 97 O2 Delivery Room Air Capillary Refill : Less Than 3 Seconds Blood Pressure Mean: 85 Progress Note : Progress Note Seen and evaluated. Patient's presentation is a little complicated as she has chest pain, UTI symptoms and cough so we will initiate sepsis protocol including IV, CBC, CMP, UA via straight cath as well as troponin and CRP. We will get blood cultures and lactic acid as well as flu and COVID swabs. Chest x-ray has been ordered. We will give normal saline 500 mL bolus as there is concern about possible dehydration. Monitor patient. Differential diagnosis includes cardiac event, electrolyte abnormality, dehydration, pneumonia, urinary tract infection, uncontrolled hyperglycemia 1622: CBC noted and is grossly normal overall. Remainder of labs are pending. 1737: CMP reviewed and shows grossly normal electrolytes and serum creatinine. Lactic acid is negative. Troponin is negative and BNP is only slightly elevated. CRP is negative. UA does show nitrite positive urinary tract infection with large bacteria and white cells with few squames on straight cath UA. Chest x-ray shows no obvious infiltrate on my interpretation. Report reviewed. COVID and influenza are negative. I have ordered Rocephin 1 g IV. I did discuss the case with Dr. Santana as patient is nauseated and I am concerned that she will not be able to tolerate oral antibiotics in the setting of UTI. Lactic acid is negative and CRP is low so do not find factors concerning for severe sepsis or septic shock but she does have UTI. Zofran 4 mg IV ordered for nausea. Dr. Santana has excepted the patient for admission, observation status and we will do gentle hydration and continue Rocephin IV as well as nausea meds. I will write bridge orders and she will complete orders. Family agrees with plan. ECG Initial ECG Impression Date: Jun 16, 2023 Initial ECG Impression Time: 15:39 Initial ECG Rate: 55 Initial ECG Rhythm: S.Rod Comment Sinus rhythm with bradycardia rate and left anterior fascicular block. Left axis deviation. No evidence of ST elevation [place]. Interpreted by me. Diagnostic Imaging Diagonstic Imaging: Xray Plain Films/CT/US/NM/MRI: chest Comments [facility] [place], [place] NAME: SANJAY MATUTE [facility] REC#: [id number] PT STATUS: REG ER : 1935 PHYSICIAN: CARLY TALLEY MD ADMIT DATE: 06/16/23/ER Signed Date of Exam:06/16/23 CHEST 1 VIEW, AP/PA ONLY INDICATION: Cough. COMPARISON: 03/18/2023. TECHNIQUE: Single radiograph of the chest dated 06/16/2023. FINDINGS: The cardiac silhouette is at the upper limits of normal in size, though stable. No significant pulmonary vascular congestion. Senescent changes of the lungs without focal pulmonary opacity. No pleural effusion. No pneumothorax. Scattered osseous degenerative changes without acute osseous abnormality. IMPRESSION: Senescent changes without acute cardiopulmonary abnormality. Dictated by: Dictated on workstation # [id number] Dict: 06/16/23 1630 Trans: 06/16/23 172 [id number] [id number] Interpreted by: FAREED HERRON MD Electronically signed by: FAREDE HERRON MD 06/16/23 1726 Departure Communication (Admissions) Time/Spoke to Admitting Phy: 17:37 Impression Primary Impression: Urinary tract infection Qualified Codes: N30.00 - Acute cystitis without hematuria Additional Impression: Nausea Disposition: ADMITTED INPATIENT Condition: Stable Admissions Decision to Admit Reason: Admit from ER (General) Decision to Admit/Date: Jun 16, 2023 Time/Decision to Admit Time: 18:09 Departure-Patient Inst. Referrals: FAHAD GAMBLE MD (PCP/Family) Primary Care Physician CARLY TALLEY MD Jun 16, 2023 16:20
[2023-06-16 16:37] LABS: ALBUMIN 3.8 GM/DL (3.2-4.5); CHLORIDE 106 MMOL/L (98-107); POTASSIUM 4.1 MMOL/L (3.6-5.0); SODIUM 139 MMOL/L (135-145)
[2023-06-16 16:38] LABS: CALCIUM 9.1 MG/DL (8.5-10.1); INR 0.9 (0.8-1.4); PROTHROMBIN TIME PATIENT 12.6 SEC (12.2-14.7)
[2023-06-16 16:39] LABS: GLUCOSE 145 MG/DL (70-105); TOTAL PROTEIN 7.3 GM/DL (6.4-8.2)
--- NOTE | 2023-06-16 16:39 | Diagnostic Imaging Report ---
INDICATION: Cough. COMPARISON: 03/18/2023. TECHNIQUE: Single radiograph of the chest dated 06/16/2023. FINDINGS: The cardiac silhouette is at the upper limits of normal in size, though stable. No significant pulmonary vascular congestion. Senescent changes of the lungs without focal pulmonary opacity. No pleural effusion. No pneumothorax. Scattered osseous degenerative changes without acute osseous abnormality. IMPRESSION: Senescent changes without acute cardiopulmonary abnormality. Dictated by: Dictated on workstation # [id number]
[2023-06-16 16:40] LABS: CARBON DIOXIDE 26 MMOL/L (21-32)
[2023-06-16 16:41] LABS: BILIRUBIN,TOTAL 0.5 MG/DL (0.1-1.0)
[2023-06-16 16:43] LABS: ALKALINE PHOSPHATASE 71 U/L (40-136); CREATININE SERUM 0.98 MG/DL (0.60-1.30); GFR ESTIMATED 57
[2023-06-16 16:44] LABS: BUN/CREATININE RATIO 16
[2023-06-16 16:46] LABS: BACTERIA,URINE LARGE /HPF; BILIRUBIN,URINE NEGATIVE (NEGATIVE); CLARITY,URINE SL CLOUDY; COLOR,URINE YELLOW; GLUCOSE, URINE (UA) NEGATIVE (NEGATIVE); KETONES,URINE TRACE (NEGATIVE); LEUKOCYTE ESTERASE ,URINE 1+ (NEGATIVE); NITRITE,URINE POSITIVE (NEGATIVE); PROTEIN,URINE NEGATIVE (NEGATIVE)
[2023-06-16 16:46] LABS: ALANINE AMINOTRANSFERASE 15 U/L (0-55)
[2023-06-16 17:05] LABS: TSH (THYROID ANALYZER) 5.72 UIU/ML (0.35-4.94)
[2023-06-16] MEDS ORDERED: cefTRIAXone IV/IM 1,000 MG in NS (IVPB) 50 ML 50 ML IV STA (17:22)
[2023-06-16] MEDS ORDERED: ONDANSETRON INJECTION 4 MG/2 ML (SDV) IVP ONE (17:30)
[2023-06-16 18:17] LABS: FREE T4 (FREE THYROXINE) 0.82 NG/DL (0.70-1.48)
[2023-06-16 19:04] VITALS: BP 151/78
[2023-06-16 19:44] VITALS: BP 151/78
[2023-06-16] MEDS ORDERED: ONDANSETRON INJECTION 4 MG/2 ML (SDV) IV PRN ×2 (19:45→21:45)
[2023-06-16] MEDS: NS IV 1000 ML 1,000 ML IV SCH (20:35)
[2023-06-16] MEDS ORDERED: morphine INJ 4 MG/ML 1 ML (VIAL/SYRINGE) IV PRN (21:45)
[2023-06-16] MEDS ORDERED: diphenhydrAMINE 25 MG TABLET PO PRN (21:45)
[2023-06-16] MEDS ORDERED: ANTACID SUSPENSION 30 ML UDC PO PRN (21:45)
[2023-06-16] MEDS ORDERED: CALCIUM CARBONATE 500 MG CHEW TABLET PO PRN (21:45)
[2023-06-16] MEDS ORDERED: BISACODYL 10 MG SUPPOSITORY PR PRN (21:45)
[2023-06-16] MEDS ORDERED: LACTULOSE SYRUP 10GM/15ML 30ML UDC PO PRN (21:45)
[2023-06-16] MEDS ORDERED: ONDANSETRON 4 MG ORAL DISSOLVE TABLET PO PRN (21:45)
[2023-06-16] MEDS ORDERED: diphenhydrAMINE INJ 50 MG/ML VIAL IVP PRN (21:45)
[2023-06-16] MEDS ORDERED: ACETAMINOPHEN 325 MG TABLET PO PRN (21:45)
[2023-06-16] MEDS ORDERED: MILK OF MAGNESIA 400 MG/5 ML 30 ML UDC PO PRN (21:45)
[2023-06-16] MEDS ORDERED: MELATONIN 3 MG TABLET PO PRN (21:45)
[2023-06-16 22:00] VITALS: BP 151/78
[2023-06-16] MEDS ORDERED: cloNIDine 0.1 MG TABLET PO PRN (22:00)
[2023-06-16] MEDS: ENOXAPARIN 40 MG/0.4 ML SYRINGE SC SCH (22:20)
[2023-06-16 23:39] VITALS: BP 144/65
[2023-06-17 03:54] VITALS: BP 146/65
[2023-06-17 05:53] LABS: BASOPHILS % (AUTO) 0 % (0-10); EOSINOPHILS # (AUTO) 0.2 10^3/uL (0.0-0.3); EOSINOPHILS % (AUTO) 3 % (0-10); HEMATOCRIT 38 % (35-52); HEMOGLOBIN 11.5 g/dL (11.5-16.0); LYMPHOCYTES # (AUTO) 1.5 10^3/uL (1.0-4.0); LYMPHOCYTES % (AUTO) 23 % (12-44); MEAN CORPUSCULAR HEMOGLOBIN 27 pg (25-34); MEAN CORPUSCULAR HGB CONC 31 g/dL (32-36); MEAN CORPUSCULAR VOLUME 89 fL (80-99); MEAN PLATELET VOLUME 9.4 fL (9.0-12.2); MONOCYTES # (AUTO) 0.4 10^3/uL (0.0-1.0); MONOCYTES % (AUTO) 5 % (0-12); NEUTROPHILS # (AUTO) 4.7 10^3/uL (1.8-7.8); NEUTROPHILS % (AUTO) 69 % (42-75); PLATELET COUNT 212 10^3/uL (130-400); WHITE BLOOD COUNT 6.8 10^3/uL (4.3-11.0)
[2023-06-17 06:03] LABS: ALBUMIN 3.4 GM/DL (3.2-4.5)
[2023-06-17 06:04] LABS: CALCIUM 8.8 MG/DL (8.5-10.1)
[2023-06-17 06:05] LABS: TOTAL PROTEIN 6.5 GM/DL (6.4-8.2)
[2023-06-17 06:07] LABS: BILIRUBIN,TOTAL 0.4 MG/DL (0.1-1.0)
[2023-06-17 06:09] LABS: CREATININE SERUM 0.88 MG/DL (0.60-1.30)
[2023-06-17] MEDS ORDERED: FLU HIGH DOSE (65+ YOA) 240 MCG/0.7 ML 2023-24 (FLUZONE) IM ONE (07:00)
[2023-06-17 07:31] VITALS: BP 158/56
--- NOTE | 2023-06-17 09:14 | History & Physical ---
SUNSHINE MICHAEL [birth year]: History of Present Illness History of Present Illness Reason for visit/HPI Lady is a 87 yo F with a PMH of HTN, CHF, HDL, IDDM and hypothyroidism who presented to the ED yesterday at 3PM accompanied by her daughter with complaints of intermittent, exertional CP since 10AM that morning, decreased urination, nausea and high blood sugar. She also noted a recent cough. Her daughter attested the patient seemed confused, symptoms usually attrituable to a UTI. She was found to have slightly elevated BNP at 207.6 and positive nitrates and leukocyte esterase on UA. EKG showed sinus bradycardia without ischemic changes. Troponin, lactic acid, CRP, and Covid and influenza testing were negative. CXR was unremarkable. Urine culture resulted probable E. coli. She was given Ceftiraxone and admitted for further management of urinary tract infection. This morning, the patient only complains of mild, improving dysuria. She denies CP, SOB, abdominal pain, suprapubic pain, back pain or N/V/D. She is eager to be discharged soon. Date of Admission Jun 16, 2023 at 18:37 Date Seen by a Provider: Jun 17, 2023 Time Seen by a Provider: 11:00 I consulted on this patient on 06/17/23 09:13 Attending Physician Trista Walker MD Admitting Physician Admitting Physician: Mari Santana DO Attending Physician: Mari Santana DO Consult Allergies and Home Medications Allergies Coded Allergies: No Known Drug Allergies (Unverified , 06/05/20) Patient Home Medication List Alendronate Sodium (Alendronate Sodium) 70 Mg Tablet, 70 MG PO WEEK, (Reported) Entered as Reported by: RENETTA ROSAS on 12/28/221829 Last Action: Reviewed Amlodipine Besylate (Amlodipine Besylate) 10 Mg Tablet, 10 MG PO DAILY, (Reported) Entered as Reported by: RENETTA ROSAS on 12/28/221829 Last Action: Reviewed Aspirin (Aspirin) 81 Mg Tab.chew, 81 MG PO HS, (Reported) Entered as Reported by: LAURE SOW on 06/05/20 1583 Last Action: Reviewed Atorvastatin Calcium (Atorvastatin Calcium) 20 Mg Tablet, 20 MG PO DAILY, (Reported) Entered as Reported by: RENETTA ROSAS on 12/28/221829 Last Action: Reviewed Buspirone HCl (Buspirone HCl) 10 Mg Tablet, 10 MG PO BID, (Reported) Entered as Reported by: RENETTA ROSAS on 12/28/221829 Last Action: Reviewed Clopidogrel Bisulfate (Clopidogrel) 75 Mg Tablet, 75 MG PO DAILY, (Reported) Entered as Reported by: SUSAN KELLER on 12/29/22 1425 Last Action: Reviewed Donepezil HCl (Donepezil HCl) 5 Mg Tablet, 5 MG PO HS, (Reported) Entered as Reported by: RENETTA ROSAS on 12/28/221829 Last Action: Reviewed Exenatide Microspheres (Bydureon Bcise) 2 Mg/0.85 Ml Auto.injct, 2 MG INJ WEEK, (Reported) Entered as Reported by: RENETTA ROSAS on 12/28/221829 Last Action: Reviewed Glipizide (Glipizide) 5 Mg Tablet, 5 MG PO DAILY, (Reported) Entered as Reported by: RENETAT ROSAS on 12/28/221829 Last Action: Reviewed Insulin Detemir (Levemir Flexpen) 100 Unit/Ml (3 Ml) Insuln.pen, 8 UNIT SQ BID Prescribed by: MARI SANTANA on 03/30/23 0442 Last Action: Reviewed Levetiracetam (Levetiracetam) 500 Mg Tablet, 500 MG PO BID, (Reported) Entered as Reported by: LAURE SOW on 06/05/20 0753 Last Action: Reviewed Levothyroxine Sodium (Levothyroxine Sodium) 100 Mcg Tablet, 100 MCG PO DAILY, (Reported) Entered as Reported by: SUSAN KELLER on 06/17/23 1601 Last Action: Reviewed Losartan Potassium (Losartan Potassium) 50 Mg Tablet, 50 MG PO DAILY, (Reported) Entered as Reported by: SUSAN KELLER on 03/20/23 1141 Last Action: Reviewed Quetiapine Fumarate (Quetiapine Fumarate) 50 Mg Tablet, 75 MG PO HS, (Reported) Entered as Reported by: RENETTA ROSAS on 12/28/221829 Last Action: Reviewed Sertraline HCl (Sertraline HCl) 100 Mg Tablet, 150 MG PO DAILY, (Reported) Entered as Reported by: RENETTA RODAS on 10/18/15 1734 Last Action: Reviewed Discontinued Medications Levothyroxine Sodium (Levothyroxine Sodium) 75 Mcg Tablet, 75 MCG PO DAILY, (Reported) Discontinued Reason: Duplicate Order Entered as Reported by: RENETTA ROSAS on 12/28/220 Last Action: Discontinued Past Rmxanaz-Fwsdio-Kpoowl Hx Patient Social History Tobacco Use?: No Smoking Status: Never a Smoker Smokeless Tobacco Frequency: Never a User Substance use?: No Alcohol Use?: No Pt feels they are or have been: No Immunizations Up To Date Date of Influenza Vaccine: Jun 12, 2020 First/Initial COVID19 Vaccinat: 2020 Second COVID19 Vaccination Rafael: 2020 Tetanus Booster (TDap): Unknown Hepatitis A: No Hepatitis B: No PED Vaccines UTD: Yes Date of Pneumonia Vaccine: Apr 12, 2015 Seasonal Allergies Seasonal Allergies: No Current Status status: No status: No Advance Directives: Yes Communicates: Verbally Primary Language: Guinean Preferred Spoken Language: Guinean Is interpretation needed?: No Sensory deficits: Hearing impairment Implanted or Applied Medical D: Stents Past Medical History Surgeries: Cardiac, Coronary Stent, Eye Surgery, 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 Currently Using CPAP: No Currently Using BIPAP: No Coronary Artery Disease, High Cholesterol, Hypertension 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 CAD- with history of PTCA and Stent. 2. HTN 3. DM 4. HLP 5. Obesity 6. PHTN 45mmHg with no history of CHF normal ejection fraction at 60% per echo 8-13 7. Cervical Ca sp hysterectomy 8. Frequent Falls- with history of fall with subdural hematoma 9. Melanoma SP removal Rt. Leg 10. Non compliance with follow up and medications 11. 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 2. Cardiac Cath 2009 with PTCA and stent 2.5 x 5mm Promus to LAD- Baqir, currently seeing Ian 3. Resection of melanoma Rt. Leg 4. Left total knee arthroplasty Family Medical History Reviewed Nursing Family Hx Family history: Alzheimer's disease 03 MOTHER Family history: Hypertension 03 FATHER 03 MOTHER Myocardial infarction 03 FATHER 03 MOTHER Heart Disease, Hypertension Review of Systems Constitutional: No chills, No malaise Respiratory: No short of breath Cardiovascular: No chest pain Gastrointestinal: No abdominal pain, No nausea, No vomiting Genitourinary: dysuria (improving ) Physical Exam Vital Signs Vital Signs - First Documented 06/16/23 06/16/23 15:34 22:00 Temp 36.8 Pulse 56 Resp 18 B/P (MAP) 120/68 (85) Pulse Ox 97 O2 Delivery Room Air FiO2 21 Capillary Refill : Less Than 3 Seconds Height, Weight, BMI Height: 5'2.00" Weight: 170lbs. 2.0oz. [id number]; 29.58 BMI Method:Stated General Appearance: No Apparent Distress Respiratory: Lungs Clear, Other (chest pain reproduced on palpation across upper 1/3 of chest ) Cardiovascular: Regular Rate, Rhythm Gastrointestinal: Other (no suprapubic tenderness ) Neurologic/Psychiatric: Alert, Oriented x3 Assessment/Plan Assessment and Plan Uncomplicated urinary tract infection - Probable E. coli per preliminary urine culture - Blood cultures pending - Continue Ceftiraxone - Continue IV Fluids Chest pain - Currently without pain - Likely musculoskeletal in nature (symptoms reproducible on palpation) - Unlikely cardiogenic; troponins negative and EKG non-ischemic in ED Chronic: Hypertension Congestive heart failure Hyperlipidemia Insulin dependent diabetes Hypothyroidism Clinical Quality Measures AMI/AHF: ASA po Prior to arrival: MARI Galvez DO 06/18/23 0516: History of Present Illness History of Present Illness Reason for visit/HPI Chief complaint: Weakness HPI: this is an 87-year-old female who presented to the ER with weakness and UTI. She is eating and drinking better now so we will Hep-Lock IV fluid. IV antibiotics empirically initiated. Allergies and Home Medications Allergies Coded Allergies: No Known Drug Allergies (Unverified , 06/05/20) Patient Home Medication List Home Medication List Reviewed: Yes Alendronate Sodium (Alendronate Sodium) 70 Mg Tablet, 70 MG PO WEEK, (Reported) Entered as Reported by: RENETTA ROSAS on 12/28/221829 Last Action: Reviewed Amlodipine Besylate (Amlodipine Besylate) 10 Mg Tablet, 10 MG PO DAILY, (Reported) Entered as Reported by: RENETTA ROSAS on 12/28/221829 Last Action: Reviewed Aspirin (Aspirin) 81 Mg Tab.chew, 81 MG PO HS, (Reported) Entered as Reported by: LAURE SOW on 06/05/20 075 Last Action: Reviewed Atorvastatin Calcium (Atorvastatin Calcium) 20 Mg Tablet, 20 MG PO DAILY, (Reported) Entered as Reported by: RENETTA ROSAS on 12/28/221829 Last Action: Reviewed Buspirone HCl (Buspirone HCl) 10 Mg Tablet, 10 MG PO BID, (Reported) Entered as Reported by: RENETTA ROSAS on 12/28/221829 Last Action: Reviewed Clopidogrel Bisulfate (Clopidogrel) 75 Mg Tablet, 75 MG PO DAILY, (Reported) Entered as Reported by: SUSAN KELLER on 12/29/22 1425 Last Action: Reviewed Donepezil HCl (Donepezil HCl) 5 Mg Tablet, 5 MG PO HS, (Reported) Entered as Reported by: RENETTA ROSAS on 12/28/221829 Last Action: Reviewed Exenatide Microspheres (Bydureon Bcise) 2 Mg/0.85 Ml Auto.injct, 2 MG INJ WEEK, (Reported) Entered as Reported by: RENETTA ROSAS on 12/28/221829 Last Action: Reviewed Glipizide (Glipizide) 5 Mg Tablet, 5 MG PO DAILY, (Reported) Entered as Reported by: RENETTA ROSAS on 12/28/221829 Last Action: Reviewed Insulin Detemir (Levemir Flexpen) 100 Unit/Ml (3 Ml) Insuln.pen, 8 UNIT SQ BID Prescribed by: MARI SANTANA on 03/30/23 0442 Last Action: Reviewed Levetiracetam (Levetiracetam) 500 Mg Tablet, 500 MG PO BID, (Reported) Entered as Reported by: LAURE SOW on 06/05/20 075 Last Action: Reviewed Levothyroxine Sodium (Levothyroxine Sodium) 100 Mcg Tablet, 100 MCG PO DAILY, (Reported) Entered as Reported by: SUSAN KELLER on 06/17/23 1601 Last Action: Reviewed Losartan Potassium (Losartan Potassium) 50 Mg Tablet, 50 MG PO DAILY, (Reported) Entered as Reported by: SUSAN KELLER on 03/20/23 1141 Last Action: Reviewed Quetiapine Fumarate (Quetiapine Fumarate) 50 Mg Tablet, 75 MG PO HS, (Reported) Entered as Reported by: RENETTA ROSAS on 12/28/221829 Last Action: Reviewed Sertraline HCl (Sertraline HCl) 100 Mg Tablet, 150 MG PO DAILY, (Reported) Entered as Reported by: RENETTA RODAS on 10/18/151733 Last Action: Reviewed Discontinued Medications Levothyroxine Sodium (Levothyroxine Sodium) 75 Mcg Tablet, 75 MCG PO DAILY, (Reported) Discontinued Reason: Duplicate Order Entered as Reported by: RENETTA ROSAS on 12/28/221829 Last Action: Discontinued Past Seelesx-Fpghks-Aqbuxe Hx Patient Social History Marrital Status: single Employed/Student: retired Smoking Status: Never a Smoker Past Medical History High Cholesterol, Hypertension Dementia Family Medical History Family history: Alzheimer's disease 03 MOTHER Family history: Hypertension 03 FATHER 03 MOTHER Myocardial infarction 03 FATHER 03 MOTHER Review of Systems Constitutional: see HPI, malaise, weakness Physical Exam General Appearance: No Apparent Distress, WD/WN, Chronically ill Eyes: Bilateral Eye Normal Inspection, Bilateral Eye PERRL, Bilateral Eye EOMI HEENT: PERRL/EOMI, Normal ENT Inspection, Pharynx Normal Neck: Full Range of Motion, Normal Inspection, Non Tender, Supple, Carotid Bruit Respiratory: Chest Non Tender, Lungs Clear, Normal Breath Sounds, No Accessory Muscle Use, No Respiratory Distress Cardiovascular: Regular Rate, Rhythm, No Edema, No Gallop, No JVD, No Murmur, Normal Peripheral Pulses Gastrointestinal: Normal Bowel Sounds, No Organomegaly, No Pulsatile Mass, Non Tender, Soft Back: Normal Inspection, No CVA Tenderness, No Vertebral Tenderness Extremity: Normal Capillary Refill, Normal Inspection, Normal Range of Motion, Non Tender, No Calf Tenderness, No Pedal Edema Neurologic/Psychiatric: Alert, Oriented x3, No Motor/Sensory Deficits, Normal Mood/Affect Skin: Normal Color, Warm/Dry Lymphatic: No Adenopathy Assessment/Plan Assessment and Plan Assessment: Weakness UTI Dementia Hypertension Plan: Hep-Lock IV fluid IV antibiotics PT and OT Admission Diagnosis Admission Status: Observation Supervisory-Addendum Brief Verification & Attestation Participated in pt care: history, MDM, physical Personally performed: exam, history, MDM, supervision of care Care discussed with: Medical Student Procedures: n/a Results interpretation: Verified all documentation Verification and Attestation of Medical Student E/M Service A medical student performed and documented this service in my presence. I reviewed and verified all information documented by the medical student and made modifications to such information, when appropriate. I personally performed the physical exam and medical decision making. Mari Santana, Jun 18, 2023,05:16 SUNSHINE MICHAEL Jun 17, 2023 09:14 MARI SANTANA DO Jun 18, 2023 05:16
--- NOTE | 2023-06-17 09:39 | Physical Therapy Evaluation ---
PT Evaluation-General Medical Diagnosis Admission Date Jun 16, 2023 at 18:37 Medical Diagnosis: UTI, Dehydration Onset Date: Jun 16, 2023 Therapy Diagnosis Therapy Diagnosis: gait deficit, Strength deficit Height/Weight Height (Feet): 5 Height (Inches): 2.00 Weight (Pounds): 170 Weight (Ounces): 2.0 Precautions Precautions/Isolations: Seizure, Standard Precautions Weight Bear Status Right Lower Extremity: Right Full Weight Bearing Left Lower Extremity: Left Full Weight Bearing Referral Physician: Dr. Ricks Reason for Referral: Evaluation/Treatment Medical History Pertinent Medical History: Arthritis, CAD, CVA, DM, Heart Failure, HTN Social History Home: Multilevel Current Living Status: Alone Entry Into Home: Ramp PT Steps Inside Home: 10 Patient reports she does not have to go up to the second level. Prior Prior Level of Function SCALE: Activities may be completed with or without assistive devices. 5-Mgdrmorhzi-bvcdfps completes the activity by him/herself with no assistance from a helper. 5-Set-up or Clean-up Assistance-helper sets up or cleans up; patient completes activity. [place] assists only prior to or following the activity. 4-Supervision or Touching Assistance-helper provides verbal cues and/or touching/steadying and/or contact guard assistance as patient completes activity. Assistance may be provided throughout the activity or intermittently. 3-Partial/Moderate Assistance-helper does LESS THAN HALF the effort. [place] lifts, holds or supports trunk or limbs, but provides less than half the effort. 2-Substantial/Maximal Assistance-helper does MORE THAN HALF the effort. [place] lifts or holds trunk or limbs and provides more than half the effort. 7-Xdkkbzpnf-tverqk does ALL the effort. Patient does none of the effort to complete the activity. Or, the assistance of 2 or more helpers is required for the patient to complete the activity. If activity was not attempted, code reason: 7-Patient Refused. 9-Not Applicable-not attempted and the patient did not perform the activity before the current illness, exacerbation or injury. 10-Not Attempted due to Environmental Limitations-(lack of equipment, weather restraints, etc.). 88-Not Attempted due to Medical Conditions or Safety Concerns. Bed Mobility: 6 Transfers (B,C,W/C): 6 Gait: 6 Stairs: 6 Indoor Mobility (Ambulation): Independent Stairs: Independent Prior Devices Use: Walker PT Evaluation-Current Subjective Patient sitting in chair upon PT arrival, agreeable to treatment. Patient rates pain at 0/10. Objective Patient Orientation: Person, Place, Time, Situation Attachments: IV ROM/Strength ROM Lower Extremities WFLs BLEs all planes Strength Lower Extremities 3+/5 BLEs all planes Sensory Vision: Functional Hearing: Impaired Sensation Right Lower Extremit: Intact Sensation Left Lower Extremity: Intact Transfers Sit to Stand (QC): 4 Chair/Fpd-cb-Ppplv Xfer(QC): 4 Gait Does the Patient Walk?: Yes Mode of Locomotion: Walk Anticipated Mode of Locomotion: Walk Walk 10 feet (QC): 4 Walk 50 ft with 2 Turns(QC): 4 Distance: 60' Gait Assistive Device: FWW Balance Sitting Static: Good Sitting Dynamic: Good Standing Static: Fair Standing Dynamic: Fair Assessment/Needs Patient tolerated evaluation fair. She performs all observed transfers with SBA. Patient ambulates 60 feet with FWW, with SBA and verbal cues for safety, progression, posture and conservation of energy. Patient in chair post treatment with all needs met, nursing notified, call light in hand. Rehab Potential: Fair PT Geology Associate Goals Geology Associate Goals PT Geology Associate Goals Time Frame: Jul 11, 2023 Roll Left & Right (QC): 6 Sit to Lying (QC): 6 Lying-Sitting on Side/Bed(QC): 6 Sit to Stand (QC): 6 Chair/Unq-kn-Huxmi Xfer(QC): 6 Toilet Transfer (QC): 6 Does the Patient Walk: Yes Walk 10 feet (QC): 6 Walk 50ft with 2 Turns (QC): 6 Walk 150 ft (QC): 6 PT Plan Problem List Problem List: Activity Tolerance, Functional Strength, Safety, Balance, Gait, Transfer, Bed Mobility, ROM Treatment/Plan Treatment Plan: Continue Plan of Care Treatment Plan: Bed Mobility, Education, Functional Activity Nilsa, Functional Strength, Group Therapy, Gait, Safety, Therapeutic Exercise, Transfers Treatment Duration: Jul 11, 2023 Frequency: 6 times per week Estimated Hrs Per Day: .25 hour per day Patient and/or Family Agrees t: Yes Safety Risks/Education Patient Education: Gait Training, Transfer Techniques Teaching Recipient: Patient Teaching Methods: Demonstration, Discussion Response to Teaching: Verbalize Understanding, Return Demonstration Time Time In: 915 Time Out: 925 DATE: Jun 17, 2023 Total Billed Treatment Time: 10 Total Billed Treatment Visit, ANABELLA GONZALES PT Jun 17, 2023 09:39
[2023-06-17] MEDS: SENNOSIDES 8.6 MG TABLET PO SCH ×2 (10:10→20:44)
[2023-06-17] MEDS: DOCUSATE SODIUM 100 MG CAPSULE PO SCH ×2 (10:10→20:44)
[2023-06-17] MEDS: NS IV 1000 ML 1,000 ML IV SCH (10:11)
--- NOTE | 2023-06-17 10:17 | Occupational Therapy Eval ---
OT Evaluation-General/PLF Medical Diagnosis Admission Date Jun 16, 2023 at 18:37 Medical Diagnosis: UTI, Dehydration Onset Date: Jun 16, 2023 Therapy Diagnosis Therapy Diagnosis: weakness Height/Weight Height (Feet): 5 Height (Inches): 2.00 Weight (Pounds): 170 Weight (Ounces): 2.0 Precautions Precautions/Isolations: Seizure, Standard Precautions Referral Physician: Dr. Ricks Referral Reason: Evaluation/Treatment Medical History Pertinent Medical History: Arthritis, CAD, CVA, DM, Heart Failure, HTN Additional Medical History Pt admitted to ARU 03/23/23 with symptomatic bradycardia. At [facility], pt required some assistance with ADLs, cognition and functional mobility. Upon initial evaluation, pt required set up assist with eating, oral care, UE dressing and footwear and min A with showering, LE Dressing and toileting. OT Tx focused on increasing safety and independence with ADLs and functional mobility and increasing BUE Strength and activity tolerance. Pt made good progress towards goals, continues to require assistance with UE/LE dressing and footwear. Pt discharging home with scheduled assistance and family support 03/30/23 Social History Home: [facility] Current Living Status: Other Family (daughtrers) Entry Into Home: Ramp ADL-Prior Level of Function SCALE: Activities may be completed with or without assistive devices. 3-Zuoaskqmtl-szngbxk completes the activity by him/herself with no assistance from a helper. 5-Set-up or Clean-up Assistance-helper sets up or cleans up; patient completes activity. [place] assists only prior to or following the activity. 4-Supervision or Touching Assistance-helper provides verbal cues and/or touching/steadying and/or contact guard assistance as patient completes activity. Assistance may be provided throughout the activity or intermittently. 3-Partial/Moderate Assistance-helper does LESS THAN HALF the effort. [place] lifts, holds or supports trunk or limbs, but provides less than half the effort. 2-Substantial/Maximal Assistance-helper does MORE THAN HALF the effort. [place] lifts or holds trunk or limbs and provides more than half the effort. 5-Djfqpqnnv-eypohq does ALL the effort. Patient does none of the effort to complete the activity. Or, the assistance of 2 or more helpers is required for the patient to complete the activity. If activity was not attempted, code reason: 7-Patient Refused. 9-Not Applicable-not attempted and the patient did not perform the activity before the current illness, exacerbation or injury. 10-Not Attempted due to Environmental Limitations-(lack of equipment, weather restraints, etc.). 88-Not Attempted due to Medical Conditions or Safety Concerns. Self Care: Needed Some Help Functional Cognition: Needed Some Help Drive Self: No OT Current Status Subjective Agreeable to OT, PLOF per last admission as patient is unclear of living situation and PLOF Mental Status/Objective Patient Orientation: Person, Confused Attachments: [place] Catheter Current Hearing Aids: Yes (very hard of hearing) Upper Extremity ROM BUE ROM WFLS Upper Extremity Coordination FAIR + Upper Extremity Sensation WFL Upper Extremity Strength -4/5 grossly ADL-Treatment ADL-Current Patietn lives with family and receives assistance at home for I/ADLs, Eating (QC): 5 Oral Hygiene (QC): 5 Shower/Bathe Self (QC): 4 Upper Body Dressing (QC): 4 Lower Body Dressing (QC): 3 On/Off Footwear (QC): 3 Toileting Hygiene (QC): 3 Education OT Patient Education: Correct positioning, Modified ADL techniques, Progress toward Goal/Update tx plan, Purpose of tx/functional activities, Reviewed precautions, Rehab process, Safety issues, Transfer techniques, Use of adapted equipment Teaching Recipient: Patient Response to Teaching: Verbalize Understanding (STM loss, family will assist at home) OT Automobile Contract Clerk Goals Automobile Contract Clerk Goals 1=Demonstrate adherence to instructed precautions during ADL tasks. 2=Patient will verbalize/demonstrate understanding of assistive devices/modifications for ADL. 3=Patient will improve strength/tolerance for activity to enable patient to perform ADL's. OT Education/Plan Problem List/Assessment Assessment: Decreased Activ Tolerance, Decreased Safety Aware, Impaired Cognition, Impaired I ADL's, Impaired Self-Care Skills Discharge Recommendations Plan/Recommendations: Discontinue OT (PLOF) Treatment Plan/Plan of Care Patient would benefit from OT for education, treatment and training to promote independence in ADL's, mobility, safety and/or upper extremity function for ADL's. Plan of Care: OTHER (EVAL ONLY) Treatment Duration: Jun 17, 2023 Frequency: 1 time per week Estimated Hrs Per Day: .25 hour per day Agreement: Yes Rehab Potential: Fair Time Start Time: 08:25 Stop Time: 08:38 DATE: Jun 17, 2023 Total Time Billed (hr/min): 13 Billed Treatment Time EVM 13 min, EVAL only BELGICA GILL OT Jun 17, 2023 10:17
[2023-06-17 11:34] VITALS: BP 152/74
[2023-06-17 16:00] VITALS: BP 148/86
[2023-06-17] MEDS ORDERED: LEVO100T7 PO (16:01)
[2023-06-17] MEDS ORDERED: cefTRIAXone 1 GM/NS 50 ML IVPB IV SCH ×2 (17:00)
[2023-06-17 20:39] VITALS: BP 162/83
[2023-06-17] MEDS: ENOXAPARIN 40 MG/0.4 ML SYRINGE SC SCH (20:45)
[2023-06-17 23:12] VITALS: BP 157/79
[2023-06-18 03:15] VITALS: BP 149/67
[2023-06-18] MEDS ORDERED: NON-FORMULARY MEDICATION 1 EA EA (Exenatide Microspheres (Bydureon Bcise) 2 MG) INJ SCH (05:15)
[2023-06-18] MEDS ORDERED: NON-FORMULARY MEDICATION 1 EA EA (Alendronate Sodium 70 MG) PO SCH (05:15)
[2023-06-18 05:55] LABS: BASOPHILS % (AUTO) 0 % (0-10); EOSINOPHILS # (AUTO) 0.2 10^3/uL (0.0-0.3); EOSINOPHILS % (AUTO) 3 % (0-10); HEMATOCRIT 36 % (35-52); HEMOGLOBIN 11.2 g/dL (11.5-16.0); LYMPHOCYTES # (AUTO) 1.5 10^3/uL (1.0-4.0); LYMPHOCYTES % (AUTO) 22 % (12-44); MEAN CORPUSCULAR HEMOGLOBIN 28 pg (25-34); MEAN CORPUSCULAR HGB CONC 31 g/dL (32-36); MEAN CORPUSCULAR VOLUME 88 fL (80-99); MEAN PLATELET VOLUME 9.2 fL (9.0-12.2); MONOCYTES # (AUTO) 0.4 10^3/uL (0.0-1.0); MONOCYTES % (AUTO) 6 % (0-12); NEUTROPHILS # (AUTO) 4.6 10^3/uL (1.8-7.8); NEUTROPHILS % (AUTO) 68 % (42-75); PLATELET COUNT 200 10^3/uL (130-400); WHITE BLOOD COUNT 6.8 10^3/uL (4.3-11.0)
[2023-06-18 05:59] LABS: ALBUMIN 3.4 GM/DL (3.2-4.5); POTASSIUM 3.7 MMOL/L (3.6-5.0)
[2023-06-18 06:00] LABS: CALCIUM 9.2 MG/DL (8.5-10.1)
[2023-06-18 06:01] LABS: TOTAL PROTEIN 6.5 GM/DL (6.4-8.2)
[2023-06-18 06:03] LABS: BILIRUBIN,TOTAL 0.5 MG/DL (0.1-1.0)
[2023-06-18 06:05] LABS: CREATININE SERUM 0.85 MG/DL (0.60-1.30)
[2023-06-18] MEDS ORDERED: glipiZIDE 5 MG TABLET PO SCH (07:00)
[2023-06-18] MEDS ORDERED: LEVOTHYROXINE 100 MCG TABLET PO SCH (07:00)
[2023-06-18 07:30] VITALS: BP 154/75
[2023-06-18] MEDS: SENNOSIDES 8.6 MG TABLET PO SCH (08:34)
[2023-06-18] MEDS: DOCUSATE SODIUM 100 MG CAPSULE PO SCH (08:34)
[2023-06-18] MEDS ORDERED: SERTRALINE 100 MG TABLET PO SCH (09:00)
[2023-06-18] MEDS ORDERED: inSUlin DETERMIR 1 UNIT/0.01 ML (CHARGE PER UNIT) SQ SCH (09:00)
[2023-06-18] MEDS ORDERED: LevETIRAcetam 500 MG TABLET PO SCH (09:00)
[2023-06-18] MEDS ORDERED: CLOPIDOGREL 75 MG TABLET PO SCH (09:00)
[2023-06-18] MEDS ORDERED: amLODIPine 10 MG TABLET PO SCH (09:00)
[2023-06-18] MEDS ORDERED: LOSARTAN 50 MG TABLET PO SCH (09:00)
[2023-06-18] MEDS ORDERED: busPIRone 10 MG TABLET PO SCH (09:00)
[2023-06-18 11:47] VITALS: BP 114/73
[2023-06-18] MEDS ORDERED: CEFD300C3 PO (12:09)
--- NOTE | 2023-06-18 12:09 | Discharge Summary ---
Diagnosis/Chief Complaint Date of Admission Jun 16, 2023 at 18:37 Date of Discharge Discharge Date: Jun 18, 2023 Discharge Diagnosis Uncomplicated urinary tract infection - Probable E. coli per preliminary urine culture - Blood cultures pending - Continue Ceftiraxone - Continue IV Fluids Chest pain - Currently without pain - Likely musculoskeletal in nature (symptoms reproducible on palpation) - Unlikely cardiogenic; troponins negative and EKG non-ischemic in ED Chronic: Hypertension Congestive heart failure Hyperlipidemia Insulin dependent diabetes Hypothyroidism Reason Hospital Visit Chief complaint: Weakness HPI: this is an 87-year-old female who presented to the ER with weakness and UTI. She is eating and drinking better now so we will Hep-Lock IV fluid. IV antibiotics empirically initiated. Discharge Summary Discharge Physical Examination Allergies: Coded Allergies: No Known Drug Allergies (Unverified , 06/05/20) Vitals & I&Os Vital Signs Date Time Temp Pulse Resp B/P (MAP) Pulse Ox O2 Delivery O2 Flow Rate FiO2 06/18/23 13:00 Room Air 06/18/23 11:47 36.4 61 18 94 06/16/23 22:00 21 General Appearance: Alert, Oriented X3, Cooperative Respiratory: Clear to Auscultation Cardiovascular: Regular Rate Psych/Mental Status: Mental Status NL Hospital Course Was the Problem List Reviewed?: Yes Lady is a 87 yo F with a PMH of HTN, CHF, HDL, IDDM and hypothyroidism who presented to the ED yesterday on 06/16 at 3PM accompanied by her daughter with complaints of intermittent, exertional CP since 10AM that morning, decreased urination, nausea and high blood sugar. She also noted a recent cough. Her daughter attested the patient seemed confused, symptoms usually attrituable to a UTI. She was found to have slightly elevated BNP at 207.6 and positive nitrates and leukocyte esterase on UA. EKG showed sinus bradycardia without ischemic changes. Troponin, lactic acid, CRP, and Covid and influenza testing were negative. CXR was unremarkable. Urine culture resulted probable E. coli. She ini tiated on Ceftriaxone and admitted for further management of uncomplicated urinary tract infection. By day 2 of hospitalization brit was asymptomatic, denying dysuria, abdominal pain, suprapubic pain, back pain, chills, N/V/D and chest pain. Her previous chest pain symptoms were reproducible with palpation, suggesting a musckoskeletal etiolgy. She will be discharged on day 3 of hosp italization with Cefdinir for a total of a 1-week antibiotic course for uncomplicated UTI. SUNSHINE MICHAEL Labs (last 24 hrs) Laboratory Tests 06/16/23 15:37: White Blood Count 7.9, Red Blood Count 4.64, Hemoglobin 12.8, Hematocrit 42, Mean Corpuscular Volume 90, Mean Corpuscular Hemoglobin 28, Mean Corpuscular Hemoglobin Concent 31L, Red Cell Distribution Width 14.5, Platelet Count 270, Mean Platelet Volume 9.7, Immature Granulocyte % (Auto) 0, Neutrophils (%) (Auto) 67, Lymphocytes (%) (Auto) 25, Monocytes (%) (Auto) 5, Eosinophils (%) (Auto) 2, Basophils (%) (Auto) 0, Neutrophils # (Auto) 5.3, Lymphocytes # (Auto) 2.0, Monocytes # (Auto) 0.4, Eosinophils # (Auto) 0.2, Basophils # (Auto) 0.0, Immature Granulocyte # (Auto) 0.0, B-Type Natriuretic Peptide 207.6H 06/16/23 15:55: Lactic Acid Level 0.74, Influenza Type A (RT-PCR) Not Detected, Influenza Type B (RT-PCR) Not Detected, SARS-CoV-2 RNA (RT-PCR) Not Detected 06/16/23 16:05: Prothrombin Time 12.6, INR Comment 0.9, Activated Partial Thromboplast Time 29, Sodium Level 139, Potassium Level 4.1, Chloride Level 106, Carbon Dioxide Level 26, Anion Gap 7, Blood Urea Nitrogen 16, Creatinine 0.98, Estimat Glomerular Filtration Rate 57, BUN/Creatinine Ratio 16, Glucose Level 145H, Calcium Level 9.1, Corrected Calcium 9.3, Total Bilirubin 0.5, Aspartate Amino Transf (AST/SGOT) 15, Alanine Aminotransferase (ALT/SGPT) 15, Alkaline Phosphatase 71, Troponin I < 0.028, C-Reactive Protein High Sensitivity 0.13, Total Protein 7.3, Albumin 3.8, Free Thyroxine 0.82, TSH Edmond Testing 5.72H 06/16/23 16:06: Urine Color YELLOW, Urine Clarity SL CLOUDY, Urine pH 5.0, Urine Specific [place] 1.020, Urine Protein NEGATIVE, Urine Glucose (UA) NEGATIVE, Urine Ketones TRACEH, Urine Nitrite POSITIVEH, Urine Bilirubin NEGATIVE, Urine Urobilinogen 0.2, Urine Leukocyte Esterase 1+H, Urine RBC (Auto) NEGATIVE, Urine RBC NONE, Urine WBC 10-25H, Urine Squamous Epithelial Cells 2-5, Urine Crystals NONE, Urine Bacteria LARGEH, Urine Casts NONE, Urine Mucus NEGATIVE, Urine Culture Indicated CULTURE PENDING 06/17/23 05:40: White Blood Count 6.8, Red Blood Count 4.23, Hemoglobin 11.5, Hematocrit 38, Mean Corpuscular Volume 89, Mean Corpuscular Hemoglobin 27, Mean Corpuscular Hemoglobin Concent 31L, Red Cell Distribution Width 14.5, Platelet Count 212, Mean Platelet Volume 9.4, Immature Granulocyte % (Auto) 0, Neutrophils (%) (Auto) 69, Lymphocytes (%) (Auto) 23, Monocytes (%) (Auto) 5, Eosinophils (%) (Auto) 3, Basophils (%) (Auto) 0, Neutrophils # (Auto) 4.7, Lymphocytes # (Auto) 1.5, Monocytes # (Auto) 0.4, Eosinophils # (Auto) 0.2, Basophils # (Auto) 0.0, Immature Granulocyte # (Auto) 0.0, Sodium Level 139, Potassium Level 4.0, Chloride Level 109H, Carbon Dioxide Level 24, Anion Gap 6, Blood Urea Nitrogen 14, Creatinine 0.88, Estimat Glomerular Filtration Rate 64, BUN/Creatinine Ratio 16, Glucose Level 134H, Calcium Level 8.8, Corrected Calcium 9.3, Total Bilirubin 0.4, Aspartate Amino Transf (AST/SGOT) 16, Alanine Aminotransferase (ALT/SGPT) 12, Alkaline Phosphatase 73, Total Protein 6.5, Albumin 3.4 06/18/23 05:18: White Blood Count 6.8, Red Blood Count 4.08, Hemoglobin 11.2L, Hematocrit 36, Mean Corpuscular Volume 88, Mean Corpuscular Hemoglobin 28, Mean Corpuscular Hemoglobin Concent 31L, Red Cell Distribution Width 14.2, Platelet Count 200, Mean Platelet Volume 9.2, Immature Granulocyte % (Auto) 0, Neutrophils (%) (Auto) 68, Lymphocytes (%) (Auto) 22, Monocytes (%) (Auto) 6, Eosinophils (%) (Auto) 3, Basophils (%) (Auto) 0, Neutrophils # (Auto) 4.6, Lymphocytes # (Auto) 1.5, Monocytes # (Auto) 0.4, Eosinophils # (Auto) 0.2, Basophils # (Auto) 0.0, Immature Granulocyte # (Auto) 0.0, Sodium Level 138, Potassium Level 3.7, Chloride Level 106, Carbon Dioxide Level 25, Anion Gap 7, Blood Urea Nitrogen 12, Creatinine 0.85, Estimat Glomerular Filtration Rate 67, BUN/Creatinine Ratio 14, Glucose Level 134H, Calcium Level 9.2, Corrected Calcium 9.7, Total Bilirubin 0.5, Aspartate Amino Transf (AST/SGOT) 14, Alanine Aminotransferase (ALT/SGPT) 12, Alkaline Phosphatase 70, Total Protein 6.5, Albumin 3.4 Microbiology 06/16/23 Blood Culture - Preliminary, Resulted 06/16/23 Urine Culture - Final, Complete Escherichia coli Pending Labs Microbiology Date/Time Source Procedure Growth Status 06/16/23 16:10 Peripheral Rt Ac Blood Culture - Preliminary Resulted 06/16/23 16:06 Urine Straight Cath, In/Out Urine Culture - Final Escherichia coli Complete 06/16/23 15:55 Peripheral Lt Ac Blood Culture - Preliminary Resulted Laboratory Tests 06/16/23 15:37: White Blood Count 7.9, Red Blood Count 4.64, Hemoglobin 12.8, Hematocrit 42, Mean Corpuscular Volume 90, Mean Corpuscular Hemoglobin 28, Mean Corpuscular Hemoglobin Concent 31, Red Cell Distribution Width 14.5, Platelet Count 270, Mean Platelet Volume 9.7, Immature Granulocyte % (Auto) 0, Neutrophils (%) (Au to) 67, Lymphocytes (%) (Auto) 25, Monocytes (%) (Auto) 5, Eosinophils (%) (Auto) 2, Basophils (%) (Auto) 0, Neutrophils # (Auto) 5.3, Lymphocytes # (Auto) 2.0, Monocytes # (Auto) 0.4, Eosinophils # (Auto) 0.2, Basophils # (Auto) 0.0, Immature Granulocyte # (Auto) 0.0, B-Type Natriuretic Peptide 207.6 06/16/23 15:55: Lactic Acid Level 0.74, Influenza Type A (RT-PCR) Not Detected, Influenza Type B (RT-PCR) Not Detected, SARS-CoV-2 RNA (RT-PCR) Not Detected 06/16/23 16:05: Prothrombin Time 12.6, INR Comment 0.9, Activated Partial Thromboplast Time 29, Sodium Level 139, Potassium Level 4.1, Chloride Level 106, Carbon Dioxide Level 26, Anion Gap 7, Blood Urea Nitrogen 16, Creatinine 0.98, Estimat Glomerular Filtration Rate 57, BUN/Creatinine Ratio 16, Glucose Level 145, Calcium Level 9.1, Corrected Calcium 9.3, Total Bilirubin 0.5, Aspartate Amino Transf (AST/SGOT) 15, Alanine Aminotransferase (ALT/SGPT) 15, Alkaline Phosphatase 71, Troponin I < 0.028, C-Reactive Protein High Sensitivity 0.13, Total Protein 7.3, Albumin 3.8, Free Thyroxine 0.82, TSH [place] Testing 5.72 06/16/23 16:06: Urine Color YELLOW, Urine Clarity SL CLOUDY, Urine pH 5.0, Urine Specific [place] 1.020, Urine Protein NEGATIVE, Urine Glucose (UA) NEGATIVE, Urine Ketones TRACE, Urine Nitrite POSITIVE, Urine Bilirubin NEGATIVE, Urine Urobilinogen 0.2, Urine Leukocyte Esterase 1+, Urine RBC (Auto) NEGATIVE, Urine RBC NONE, Urine WBC 10-25, Urine Squamous Epithelial Cells 2-5, Urine Crystals NONE, Urine Bacteria LARGE, Urine Casts NONE, Urine Mucus NEGATIVE, Urine Culture Indicated CULTURE PENDING 06/17/23 05:40: White Blood Count 6.8, Red Blood Count 4.23, Hemoglobin 11.5, Hematocrit 38, Mean Corpuscular Volume 89, Mean Corpuscular Hemoglobin 27, Mean Corpuscular Hemoglobin Concent 31, Red Cell Distribution Width 14.5, Platelet Count 212, Mean Platelet Volume 9.4, Immature Granulocyte % (Auto) 0, Neutrophils (%) (Auto) 69, Lymphocytes (%) (Auto) 23, Monocytes (%) (Auto) 5, Eosinophils (%) (Auto) 3, Basophils (%) (Auto) 0, Neutrophils # (Auto) 4.7, Lymphocytes # (Auto) 1.5, Monocytes # (Auto) 0.4, Eosinophils # (Auto) 0.2, Basophils # (Auto) 0.0, Immature Granulocyte # (Auto) 0.0, Sodium Level 139, Potassium Level 4.0, C hloride Level 109, Carbon Dioxide Level 24, Anion Gap 6, Blood Urea Nitrogen 14, Creatinine 0.88, Estimat Glomerular Filtration Rate 64, BUN/Creatinine Ratio 16, Glucose Level 134, Calcium Level 8.8, Corrected Calcium 9.3, Total Bilirubin 0.4, Aspartate Amino Transf (AST/SGOT) 16, Alanine Aminotransferase (ALT/SGPT) 12, Alkaline Phosphatase 73, Total Protein 6.5, Albumin 3.4 06/18/23 05:18: White Blood Count 6.8, Red Blood Count 4.08, Hemoglobin 11.2, Hematocrit 36, Mean Corpuscular Volume 88, Mean Corpuscular Hemoglobin 28, Mean Corpuscular Hemoglobin Concent 31, Red Cell Distribution Width 14.2, Platelet Count 200, Mean Platelet Volume 9.2, Immature Granulocyte % (Auto) 0, Neutrophils (%) (Auto) 68, Lymphocytes (%) (Auto) 22, Monocytes (%) (Auto) 6, Eosinophils (%) (Auto) 3, Basophils (%) (Auto) 0, Neutrophils # (Auto) 4.6, Lymphocytes # (Auto) 1.5, Monocytes # (Auto) 0.4, Eosinophils # (Auto) 0.2, Basophils # (Auto) 0.0, Immature Granulocyte # (Auto) 0.0, Sodium Level 138, Potassium Level 3.7, Chloride Level 106, Carbon Dioxide Level 25, Anion Gap 7, Blood Urea Nitrogen 12, Creatinine 0.85, Estimat Glomerular Filtration Rate 67, BUN/Creatinine Ratio 14, Glucose Level 134, Calcium Level 9.2, Corrected Calcium 9.7, Total Bilirubin 0.5, Aspartate Amino Transf (AST/SGOT) 14, Alanine Aminotransferase (ALT/SGPT) 12, Alkaline Phosphatase 70, Total Protein 6.5, Albumin 3.4 Discharge Home Medications: Active Scripts Active Cefdinir 300 Mg Capsule 300 Mg PO BID Levemir Flexpen (Insulin Detemir) 100 Unit/Ml (3 Ml) Insuln.pen 8 Unit SQ BID 14 Days Reported Levothyroxine Sodium 100 Mcg Tablet 100 Mcg PO DAILY Losartan Potassium 50 Mg Tablet 50 Mg PO DAILY Clopidogrel (Clopidogrel Bisulfate) 75 Mg Tablet 75 Mg PO DAILY LAST FILLED 09-18-2022 #90/90 DAY SUPPLY Quetiapine Fumarate 50 Mg Tablet 75 Mg PO HS TAKES 1 & (50MG) TABS Bydureon Bcise (Exenatide Microspheres) 2 Mg/0.85 Ml Auto.injct 2 Mg INJ WEEK Alendronate Sodium 70 Mg Tablet 70 Mg PO WEEK LAST FILLED 09-18-2022 #12/ DAY SUPPLY Amlodipine Besylate 10 Mg Tablet 10 Mg PO DAILY Glipizide 5 Mg Tablet 5 Mg PO DAILY Buspirone HCl 10 Mg Tablet 10 Mg PO BID Donepezil HCl 5 Mg Tablet 5 Mg PO HS LAST FILLED 11-11-2022 #90/90 DAY SUPPLY Atorvastatin Calcium 20 Mg Tablet 20 Mg PO DAILY Aspirin 81 Mg Tab.chew 81 Mg PO HS Levetiracetam 500 Mg Tablet 500 Mg PO BID Sertraline HCl 100 Mg Tablet 150 Mg PO DAILY TAKES 1 & (100MG) TABS Instructions to patient/family Please see electronic discharge instructions given to patient. Clinical Quality Measures AMI/AHF: ASA po Prior to arrival: ERUM Galvez DO Jun 18, 2023 12:09
--- NOTE | 2023-06-18 13:03 | Progress Note ---
SUNSHINE MICHAEL 06/18/23 1303: Progress Note Lady is a 87 yo F with a PMH of HTN, CHF, HDL, IDDM and hypothyroidism who presented to the ED yesterday on 06/16 at 3PM accompanied by her daughter with complaints of intermittent, exertional CP since 10AM that morning, decreased urination, nausea and high blood sugar. She also noted a recent cough. Her daugh ter attested the patient seemed confused, symptoms usually attrituable to a UTI. She was found to have slightly elevated BNP at 207.6 and positive nitrates and leukocyte esterase on UA. EKG showed sinus bradycardia without ischemic changes. Troponin, lactic acid, CRP, and Covid and influenza testing were negative. CXR was unremarkable. Urine culture resulted probable E. coli. She initiated on Ceftriaxone and admitted for further management of uncomplicated urinary tract infection. By day 2 of hospitalization brit was asymptomatic, denying dysuria, abdominal pain, suprapubic pain, back pain, chills, N/V/D and chest pain. Her previous chest pain symptoms were reproducible with palpation, suggesting a musckoskeletal etiolgy. She will be discharged on day 3 of hospitalization with Cefdinir for a total of a 1-week antibiotic course for uncomplicated UTI. MARI SANTANA DO 06/19/23 0449: Supervisory-Addendum Brief Verification & Attestation Participated in pt care: history, MDM, physical Personally performed: exam, history, MDM, supervision of care Care discussed with: Medical Student Procedures: n/a Results interpretation: Verified all documentation Verification and Attestation of Medical Student E/M Service A medical student performed and documented this service in my presence. I reviewed and verified all information documented by the medical student and made modifications to such information, when appropriate. I personally performed the physical exam and medical decision making. Mari Santana Jun 19, 2023,04:49 SUNSHINE MICHAEL Jun 18, 2023 13:03 MARI SANTANA DO Jun 19, 2023 04:49
[2023-06-18] MEDS ORDERED: ASPIRIN 81 MG CHEWABLE TABLET PO SCH (21:00)
[2023-06-18] MEDS ORDERED: QUEtiapine IMMEDIATE RELEASE 25 MG TABLET PO SCH (21:00)
[2023-06-18] MEDS ORDERED: DONEPEZIL 5 MG TABLET PO SCH (21:00)
== END 2023-06-18 13:00 | disposition home or self-care (01) ==
LOC: EDUNIT# 15:29 → ER 15:32 → 4TH 18:37 → UNDOADMOB 18:37 → 4TH 19:29 → UNDODISOB 06-18 13:00
PROVIDERS: ADMIT Internal Medicine; ATTEND Internal Medicine
DX: N30.00 Acute cystitis without hematuria (principal); R07.9 Chest pain, unspecified; I11.0 Hypertensive heart disease with heart failure; I50.9 Heart failure, unspecified; R53.1 Weakness; E78.5 Hyperlipidemia, unspecified; E11.9 Type 2 diabetes mellitus without complications; E03.9 Hypothyroidism, unspecified; F03.90 Unspecified dementia, unspecified severity, without behavioral disturbance, psychotic disturbance, mood disturbance, and anxiety; Z79.890 Hormone replacement therapy; Z79.899 Other long term (current) drug therapy; Z79.4 Long term (current) use of insulin; Z79.84 Long term (current) use of oral hypoglycemic drugs; Z79.82 Long term (current) use of aspirin
CPT/HCPCS: 51701; 71045; 80053 ×3; 81000; 83605; 83880; 84439; 84443; 84484; 85025 ×3; 85610; 85730; 86141; 87040; 87077; 87088; 87186; 87636; 93005; 94760; 96361; 96365; 96372 ×2; 96375; 96376; 97162; 97166; 99284; G0378; 36415